=== PATIENT | female | born 1995 | race Caucasian/White ===

== ENCOUNTER 2023-01-24 09:20 | Emergency (ER) | payer BC, SELFPAY ==
[2023-01-24 09:29] VITALS: BP 158/109; PULSE 104; RESP 16; TEMP 36.7; O2SAT 100; BMI 42.0
--- NOTE | 2023-01-24 09:45 | ED.EAR1 ---
HPI - Ear Problem General Chief complaint: Ear Stated complaint: EARACHE Time Seen by Provider: 01/24/23 09:38 Source: patient Mode of arrival: walk-in History of Present Illness HPI Narrative: patient here for evaluation of drainage from her left ear and a recent MRI she had. Historically she said since November she's been treated for some ear problems by her primary care doctor. She took some amoxicillin for approximately a week and then was given a 2nd antibiotic she thinks, however she didn't take it because she was feeling better. She denies any history of trauma or surgery to the ears. She's not seen any blood coming from the ears but the left one is draining a purulent sticky yellowish-type material. She has a little bit of a sore throat but no sneezing or runny nose. She's not had a fever. She is not currently on any antibiotics. She recently had an MRI to manage and follow her multiple sclerosis, she shared that report with me and in the body of the report it was noted that she has fluid in her mastoid area consistent with mastoiditis and/or otitis infections and was advised to go to the hospital. Related Data Home Medications Medication Instructions Recorded Confirmed aripiprazole 15 mg tablet 15 mg PO DAILY 01/24/23 01/24/23 dextroamphetamine-amphetamine ER 20 mg PO DAILY 01/24/23 01/24/23 20 mg 24hr capsule,extend release ferrous sulfate 325 mg (65 mg 325 mg PO DAILY 01/24/23 01/24/23 iron) tablet levothyroxine 75 mcg tablet 75 mcg PO DAILY 01/24/23 01/24/23 norgestimate-ethinyl estradiol 1 tab PO DAILY 01/24/23 01/24/23 0.18 mg/0.215mg/0.25mg-35 mcg(28)tablet venlafaxine 150 mg 150 mg PO DAILY 01/24/23 01/24/23 capsule,extended release 24 hr Allergies Allergy/AdvReac Type Severity Reaction Status Date / Time glatiramer (copolymer 1) AdvReac Severe Hives Verified 01/24/23 09:38 [From Copaxone] interferon beta-1a AdvReac Severe shortness Verified 01/24/23 09:38 [From Avonex] of breath Exam Narrative Exam Narrative: well-hydrated well-nourished pleasant oriented ?3 normal cognitive function. On HEENT examination the nares are dry with no. Nasal drainage or discharge. There is no facial swelling. There is no pain with pulling on the pinna or pushing on her tragus. There is no tenderness over the mastoid area. The right tympanic membrane is intact with dullness our the left tympanic membrane was not visualized because of a large amount of purulent drainage in her ear canal. It was gently cleansed away with Q-tips but we still cannot see the tympanic membrane. I believe this probably represents perforation. Otherwise HEENT examination is unremarkable. Constitutional Vital Signs - 24 hr 01/24/23 09:29 Temperature 98.0 F Pulse Rate [Monitor] 104 H Respiratory Rate 16 Blood Pressure [Left Arm] 158/109 H Pulse Oximetry 100 Course Vital Signs Vital signs: Vital Signs Temperature 98.0 F 01/24/23 09:29 Pulse Rate 104 H 01/24/23 09:29 Respiratory Rate 16 01/24/23 09:29 Blood Pressure 158/109 H 01/24/23 09:29 Pulse Oximetry 100 01/24/23 09:29 Temperature 98.0 F 01/24/23 09:29 Pulse Rate 104 H 01/24/23 09:29 Respiratory Rate 16 01/24/23 09:29 Blood Pressure 158/109 H 01/24/23 09:29 Pulse Oximetry 100 01/24/23 09:29 Medical Decision Making [facility] Narrative Medical decision making narrative: patient has a history of some recent ear infections perhaps partially treated and now has developed once consistent with mastoiditis. We will start her on Augmentin and give her three weeks prescription but she was emphasize she noticed see her family doctor and get referral to ENT in the very near future to follow this infection clinically Discharge Plan Discharge Chief Complaint: Ear Clinical Impression: 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 Patient Disposition: Home, Self-Care Time of Disposition Decision: 09:49 Prescriptions / Home Meds: No Action aripiprazole 15 mg tablet 15 mg PO DAILY dextroamphetamine-amphetamine 20 mg capsule,extended release 24hr 20 mg PO DAILY ferrous sulfate 325 mg (65 mg iron) tablet 325 mg PO DAILY levothyroxine 75 mcg tablet 75 mcg PO DAILY norgestimate-ethinyl estradiol 0.18/0.215/0.25 mg-35 mcg (28) tablet 1 tab PO DAILY venlafaxine 150 mg capsule,extended release 24hr 150 mg PO DAILY Instructions: Mastoiditis (ED) Additional Instructions: Augmentin twice a day for three weeks, follow-up primary care doctor SANDY for ENT referral Stand Alone Forms: Portal Instructions Referrals: Jayme Franklin MD [Primary Care Provider] - 1 week
[2023-01-24 09:52] VITALS: RESP 18
== END 2023-01-24 09:55 | disposition home or self-care (01) ==
PROVIDERS: Emergency Provider Emergency Medicine Emergency Medical Services; PCP Family Medicine
DX: H72.92 Unspecified perforation of tympanic membrane, left ear (principal); G35 Multiple sclerosis; Z79.890 Hormone replacement therapy; Z79.899 Other long term (current) drug therapy
CPT/HCPCS: 99283

== ENCOUNTER 2023-03-27 14:09 | Emergency (ER) | payer BC, SELFPAY ==
[2023-03-27 14:11] VITALS: BP 173/94; PULSE 108; RESP 18; TEMP 38; O2SAT 97; BMI 43.6
--- NOTE | 2023-03-27 14:20 | ED.SOB1 ---
HPI - SOB/Dyspnea General Chief Complaint: Shortness of Breath/Dyspnea Stated Complaint: SHORTNESS OF BREATH Time Seen by Provider: 03/27/23 14:20 Source: patient Mode of arrival: walk-in Limitations: no limitations History of Present Illness HPI Narrative: this patient's here complaining of cough green runny nose congestion itchy eyes and sneezing. She's not had a fever at home that she knows of. She vapes, , does not use tobacco products. is no history of asthma or chronic obstructive pulmonary disease. She did have Covid previously. She's had two vaccinations. No other household members or contacts been ill to her knowledge. Does not have an earache does not have a headache or stiff neck. She did have some diarrhea. He is not on any antibiotics. She currently is being treated by the [facility] for multiple sclerosis. Her medications have not changed. [place] shortness of breath. Her pulse oximetry is ninety-seven percent on room air. She has a low-grade temperature at 100.4. MD elicited complaint: cough Related Data Home Medications Medication Instructions Recorded Confirmed aripiprazole 15 mg tablet 15 mg PO DAILY 01/24/23 01/24/23 dextroamphetamine-amphetamine ER 20 mg PO DAILY 01/24/23 01/24/23 20 mg 24hr capsule,extend release ferrous sulfate 325 mg (65 mg 325 mg PO DAILY 01/24/23 01/24/23 iron) tablet levothyroxine 75 mcg tablet 75 mcg PO DAILY 01/24/23 01/24/23 norgestimate-ethinyl estradiol 1 tab PO DAILY 01/24/23 01/24/23 0.18 mg/0.215mg/0.25mg-35 mcg(28)tablet venlafaxine 150 mg 150 mg PO DAILY 01/24/23 01/24/23 capsule,extended release 24 hr Allergies Allergy/AdvReac Type Severity Reaction Status Date / Time glatiramer (copolymer 1) AdvReac Severe Hives Verified 01/24/23 09:38 [From Copaxone] interferon beta-1a AdvReac Severe shortness Verified 01/24/23 09:38 [From Avonex] of breath Exam Narrative Exam Narrative: examination shows well-hydrated well-nourished female blood pressure noted at 173/94. Esterase normal eighteen. She has no stridor she has no posturing or drooling. Her chest she does have some bronchospasm on auscultation. There is no pleural or pericardial rub. Heart sounds are normal. ENT examination shows no rhinitis. Her pharynx is not erythematous she denies any sore throat. Neck is soft and supple. Constitutional Vital Signs, click to edit/add: Last Vital Signs Temp 100.4 F 03/27/23 14:11 Pulse 109 H 03/27/23 14:47 Resp 18 03/27/23 14:11 BP 123/81 03/27/23 15:06 Pulse Ox 95 03/27/23 14:47 O2 Del Method Room Air 03/27/23 14:11 Course Vital Signs Vital signs: Vital Signs Temperature 100.4 F 03/27/23 14:11 Pulse Rate 108 H 03/27/23 14:11 Respiratory Rate 18 03/27/23 14:11 Blood Pressure 173/94 H 03/27/23 14:11 Pulse Oximetry 97 03/27/23 14:11 Oxygen Delivery Method Room Air 03/27/23 14:11 Temperature 100.4 F 03/27/23 14:11 Pulse Rate 109 H 03/27/23 14:47 Respiratory Rate 18 03/27/23 14:11 Blood Pressure 123/81 03/27/23 15:06 Pulse Oximetry 95 03/27/23 14:47 Oxygen Delivery Method Room Air 03/27/23 14:11 MDM - SOB/Dyspnea MDM Narrative Medical decision making narrative: patient's chest x-ray does show some patchy infiltrates that appear to be acute. We will do Covid smear on her. She does have MS and self Covid is positive she should be offered Paxil over the. If Covid is negative we'll treat her with empiric antibiotic therapy. She is not working outside want to get plenty of rest. I would like her to follow up with primary care doctor or return as needed Discharge Plan Discharge Chief Complaint: Shortness of Breath/Dyspnea Clinical Impression: Pneumonia Patient Disposition: Home, Self-Care Time of Disposition Decision: 15:30 Prescriptions / Home Meds: No Action aripiprazole 15 mg tablet 15 mg PO DAILY dextroamphetamine-amphetamine 20 mg capsule,extended release 24hr 20 mg PO DAILY ferrous sulfate 325 mg (65 mg iron) tablet 325 mg PO DAILY levothyroxine 75 mcg tablet 75 mcg PO DAILY norgestimate-ethinyl estradiol 0.18/0.215/0.25 mg-35 mcg (28) tablet 1 tab PO DAILY venlafaxine 150 mg capsule,extended release 24hr 150 mg PO DAILY Additional Instructions: we will call Covid results, start Zithromax/follow-up primary care doctor/use albuterol inhaler for wheezing and cough Stand Alone Forms: Portal Instructions Referrals: Jayme Franklin MD [Primary Care Provider] - 1 week
--- NOTE | 2023-03-27 14:28 | XR_ITS ---
The [address] [address] Patient Name: KASHIF JAQUEZ MRN: [id number] date: 1995 Sex: F Assigned Patient Location: ED.MAIN Current Patient Location: ER Accession/Order Number: [id number] Exam Date: 03/27/2023 15:00 Report Date: 03/27/2023 15:14 At the request of: LINDY SUERO Procedure: XR chest 1V EXAM: XR chest 1V at 1502 hours HISTORY: cough and dyspnea COMPARISON: None. TECHNIQUE: AP upright portable chest x-ray FINDINGS: Patchy infiltrates are seen throughout the right lung, although the left lung is clear. There is no evidence of an effusion or pneumothorax. The heart is not enlarged and the vasculature is not distended. The osseous structures are grossly intact. XR/XR chest 1V IMPRESSION: Patchy infiltrates are seen in the right lung, which appear acute and probably inflammatory in nature. The left lung is clear and there is no evidence of overt cardiac decompensation. A follow-up study after appropriate therapy is recommended. Electronically authenticated by: AMRIK KENT Date: 03/27/2023 15:14
[2023-03-27] MEDS: IPRATROPIUM/ALBUTEROL SULFATE 3 ML AMPUL.NEB IH (14:45)
[2023-03-27 14:47] VITALS: PULSE 109; O2SAT 95
[2023-03-27] MEDS: ACETAMINOPHEN 500 MG TABLET 1000 MG PO (15:00)
[2023-03-27 15:06] VITALS: BP 123/81
[2023-03-27 15:38] VITALS: PULSE 107; O2SAT 97
[2023-03-27 15:54] LABS: SARS-CoV-2 Ag NEGATIVE (NEGATIVE)
[2023-03-29 12:37] LABS: SARS-CoV-2 NAA INVALID (NOT DETECTE)
== END 2023-03-27 15:38 | disposition home or self-care (01) ==
PROVIDERS: Emergency Provider Emergency Medicine Emergency Medical Services; PCP Family Medicine
DX: J18.9 Pneumonia, unspecified organism (principal); F17.290 Nicotine dependence, other tobacco product, uncomplicated; Z86.16 Personal history of COVID-19; R50.9 Fever, unspecified
CPT/HCPCS: 71045; 87635; 87811; 94640; 99284; U0003

== ENCOUNTER 2023-04-13 10:00 | Emergency (ER) | payer BC, SELFPAY ==
[2023-04-13 10:07] VITALS: BP 111/72; PULSE 100; RESP 18; TEMP 36.6; O2SAT 93; BMI 40.4
[2023-04-13 10:19] VITALS: O2SAT 93
--- NOTE | 2023-04-13 10:21 | XR_ITS ---
The [address] [address] Patient Name: KASHIF JAQUEZ MRN: [id number] date: 1995 Sex: F Assigned Patient Location: ER Current Patient Location: ER Accession/Order Number: [id number] Exam Date: 04/13/2023 10:45 Report Date: 04/13/2023 11:15 At the request of: ECTOR GREENFIELD Procedure: XR chest 1V EXAM: XR chest 1V HISTORY: SOB COMPARISON: 03/27/2023. TECHNIQUE: Upright portable AP chest FINDINGS: Previous multilobar pneumonia in the right lung resolved. Right lung is clear. However, there is new left upper lobe consolidation. Minimal opacities also in the left lower lobe, may be atelectasis or additional areas of pneumonitis. No effusion. No pneumothorax. Pulmonary vasculature is normal. Heart size within normal limits. XR/XR chest 1V IMPRESSION: 1. Resolution of multilobar pneumonia in the right lung since prior study 03/27/2023. However, there is new left upper lobe pneumonia. Minimal left lower lobe opacities may be atelectasis or additional areas of mild pneumonitis. Clinical and radiographic follow-up to resolution recommended. Electronically authenticated by: GUERITA ROBERTSON Date: 04/13/2023 11:15
--- NOTE | 2023-04-13 10:21 | ECG_ITS ---
The [facility] Test Date: 2023-04-13 Pat Name: KASHIF JAQUEZ Department: Room: - Gender: Female [employer] Life Dean: : 1995 Requested By: BEBA COSTA Order Number: [id number] Reading MD: RANDAL LINK Measurements Intervals [place] Rate: 128 P: 90 WI: 128 QRS: 95 QRSD: 74 T: 12 QT: 282 QTc: 358 Interpretive Statements 1120 Sinus tachycardia 4068 Nonspecific [place] abnormality 7102 Moderate right axis deviation 8305 Short QTc interval 9150 abnormal ECG No previous ECG available for comparison Electronically Signed On 04-14-2023 7:04:45 EDT by RANDAL LINK
--- NOTE | 2023-04-13 10:21 | ED.SOB1 ---
HPI - SOB/Dyspnea General Chief Complaint: Shortness of Breath/Dyspnea Stated Complaint: PNUEMONIA Time Seen by Provider: 04/13/23 10:12 Source: patient Mode of arrival: walk-in Limitations: no limitations History of Present Illness HPI Narrative: 27-year-old female presented to the emergency department for shortness of breath. She had Covid two or three months ago and then she was seen in early March and at that time had patchy infiltrates. She's been on Zithromax twice but doesn't feel like she is getting better. No fever or productive cough. She has no history of asthma. She states but doesn't smoke cigarettes. Related Data Home Medications Medication Instructions Recorded Confirmed aripiprazole 15 mg tablet 15 mg PO DAILY 01/24/23 01/24/23 dextroamphetamine-amphetamine ER 20 mg PO DAILY 01/24/23 01/24/23 20 mg 24hr capsule,extend release ferrous sulfate 325 mg (65 mg 325 mg PO DAILY 01/24/23 01/24/23 iron) tablet levothyroxine 75 mcg tablet 75 mcg PO DAILY 01/24/23 01/24/23 norgestimate-ethinyl estradiol 1 tab PO DAILY 01/24/23 01/24/23 0.18 mg/0.215mg/0.25mg-35 mcg(28)tablet venlafaxine 150 mg 150 mg PO DAILY 01/24/23 01/24/23 capsule,extended release 24 hr Previous Rx's Medication Instructions Recorded levofloxacin 750 mg tablet 750 mg PO DAILY 10 days #10 tabs 04/13/23 Allergies Allergy/AdvReac Type Severity Reaction Status Date / Time glatiramer (copolymer 1) AdvReac Severe Hives Verified 04/13/23 10:15 [From Copaxone] interferon beta-1a AdvReac Severe shortness Verified 04/13/23 10:15 [From Avonex] of breath Review of Systems ROS Narrative A ten point review of systems is negative except as noted above. PFSH PFSH Social History Smoking status: Former smoker Exam Narrative Exam Narrative: Nurses note and vital signs reviewed and patient is not hypoxic. General: The patient appears well and in no apparent distress. Patient is resting comfortably on cart. Skin: Warm, dry, no pallor noted. There is no rash noted. Head: Normocephalic, atraumatic Eye: Normal conjunctiva, no drainage Ears, Nose, Mouth, and Throat: oral mucosa is moist. Nares patent. Cardiovascular: Regular Rate and Rhythm Respiratory: Patient is in no distress, no accessory muscle use, lungs are clear to auscultation, no wheezing, rales or rhonchi Back: non-tender GI: soft and nontender Musculoskeletal: The patient has no evidence of calf tenderness, no pitting edema, symmetrical pulses noted bilaterally Neurological: A&O, normal speech Psychiatric: Cooperative Constitutional Vital Signs, click to edit/add: Last Vital Signs Temp 97.8 F 04/13/23 10:07 Pulse 100 H 04/13/23 10:07 Resp 18 04/13/23 10:07 BP 111/72 04/13/23 10:07 Pulse Ox 93 L 04/13/23 10:19 O2 Del Method Room Air 04/13/23 10:19 Course Vital Signs Vital signs: Vital Signs Temperature 97.8 F 04/13/23 10:07 Pulse Rate 100 H 04/13/23 10:07 Respiratory Rate 18 04/13/23 10:07 Blood Pressure 111/72 04/13/23 10:07 Pulse Oximetry 93 L 04/13/23 10:07 Oxygen Delivery Method Room Air 04/13/23 10:07 Temperature 97.8 F 04/13/23 10:07 Pulse Rate 100 H 04/13/23 10:07 Respiratory Rate 18 04/13/23 10:07 Blood Pressure 111/72 04/13/23 10:07 Pulse Oximetry 93 L 04/13/23 10:19 Oxygen Delivery Method Room Air 04/13/23 10:19 MDM - SOB/Dyspnea MDM Narrative Medical decision making narrative: blood work is essentially normal. Chest x-ray shows resolution of her recent right patchy infiltrates but new left upper lobe pneumonia. Case discussed with her PCP and follow-up is arranged. She is prescribed Levaquin and findings are discussed thoroughly with the patient. At this point she does not require admission the hospital. Treatment diagnosis and follow up are discussed thoroughly. Differential Diagnosis Differential diagnosis: Likely congestive heart failure, community acquired pneumonia and other (pneumothorax) Lab Data Attestation: I reviewed the patient's lab results. Labs: Lab Results 04/13/23 Range/Units 10:30 WBC 6.3 (4.0-11.0) 10^3/uL RBC 5.12 (4.20-5.40) 10^6/uL Hgb 13.7 (12.0-16.0) g/dL Hct 44.6 (36.0-48.0) % MCV 87.1 (81.0-99.0) fL MCH 26.8 (26.7-34.0) pg MCHC 30.7 (29.9-35.2) g/dL RDW 13.6 (11.0-15.0) % Plt Count 389 (150-450) 10^3/uL MPV 9.7 (9.5-13.5) fL Neut % (Auto) 74.5 (43.0-75.0) % Lymph % (Auto) 19.5 L (20.5-60.0) % [place] % (Auto) 5.3 (1.7-12.0) % Eos % (Auto) 0.0 L (0.9-7.0) % Baso % (Auto) 0.2 (0.2-2.0) % Neut # (Auto) 4.7 (1.4-6.5) 10^3/uL Lymph # (Auto) 1.2 (1.2-3.8) 10^3/uL [place] # (Auto) 0.3 (0.3-0.8) 10^3/uL Eos # (Auto) 0.0 (0.0-0.7) 10^3/uL Baso # (Auto) 0.0 (0.0-0.1) 10^3/uL Abs Immat Gran (auto) 0.03 (0.00-0.03) 10^3/uL Imm/Tot Granulo (auto) 0.5 (0.0-0.5) % Sodium 139 (136-145) mmol/L Potassium 3.7 (3.5-5.1) mmol/L Chloride 100 (98-107) mmol/L Carbon Dioxide 31.5 (21.0-32.0) mmol/L Anion Gap 11.2 BUN 10.0 (7.0-18.0) mg/dL Creatinine 0.81 (0.55-1.02) mg/dL Est GFR ( Amer) >60 (>=60) Est GFR (Non-Af Amer) >60 (>=60) BUN/Creatinine Ratio 12.3 Glucose 89 (74-106) mg/dL Calcium 8.9 (8.5-10.1) mg/dL Imaging Data Chest x-ray: Radiologist's impression: Procedure: XR chest 1V EXAM: XR chest 1V HISTORY: SOB COMPARISON: 03/27/2023. TECHNIQUE: Upright portable AP chest FINDINGS: Previous multilobar pneumonia in the right lung resolved. Right lung is clear. However, there is new left upper lobe consolidation. Minimal opacities also in the left lower lobe, may be atelectasis or additional areas of pneumonitis. No effusion. No pneumothorax. Pulmonary vasculature is normal. Heart size within normal limits. IMPRESSION: 1. Resolution of multilobar pneumonia in the right lung since prior study 03/27/2023. However, there is new left upper lobe pneumonia. Minimal left lower lobe opacities may be atelectasis or additional areas of mild pneumonitis. Clinical and radiographic follow-up to resolution recommended. Electronically authenticated by: GUERITA ROBERTSON Date: 04/13/2023 11:15 Discharge Plan Discharge Chief Complaint: Shortness of Breath/Dyspnea Clinical Impression: Pneumonia Patient Disposition: Home, Self-Care Time of Disposition Decision: 11:50 Condition: Good Mode of Transportation: Private Vehicle Prescriptions / Home Meds: New levofloxacin 750 mg tablet 750 mg PO DAILY 10 Days Qty: 10 0RF No Action aripiprazole 15 mg tablet 15 mg PO DAILY dextroamphetamine-amphetamine 20 mg capsule,extended release 24hr 20 mg PO DAILY ferrous sulfate 325 mg (65 mg iron) tablet 325 mg PO DAILY levothyroxine 75 mcg tablet 75 mcg PO DAILY norgestimate-ethinyl estradiol 0.18/0.215/0.25 mg-35 mcg (28) tablet 1 tab PO DAILY venlafaxine 150 mg capsule,extended release 24hr 150 mg PO DAILY Instructions: Community Acquired Pneumonia (ED) Additional Instructions: see Dr. Franklin next week Stand Alone Forms: Portal Instructions Referrals: Jayme Franklin MD [Primary Care Provider] - 1 week
[2023-04-13 10:50] LABS: Basophils Percent Auto 0.2 % (0.2-2.0); Hematocrit 44.6 % (36.0-48.0); Hemoglobin 13.7 g/dL (12.0-16.0); Immature Granulocytes Abs Auto 0.03 10^3/uL (0.00-0.03); Immature Granulocytes Pct Auto 0.5 % (0.0-0.5); Lymphocytes Absolute Auto 1.2 10^3/uL (1.2-3.8); Lymphocytes Percent Auto 19.5 % (20.5-60.0); Mean Corpuscular HGB Conc 30.7 g/dL (29.9-35.2); Mean Corpuscular Hemoglobin 26.8 pg (26.7-34.0); Mean Corpuscular Volume 87.1 fL (81.0-99.0); Mean Platelet Volume 9.7 fL (9.5-13.5); Monocytes Absolute Auto 0.3 10^3/uL (0.3-0.8); Monocytes Percent Auto 5.3 % (1.7-12.0); Neutrophils Absolute Auto 4.7 10^3/uL (1.4-6.5); Neutrophils Percent Auto 74.5 % (43.0-75.0); Platelet Count 389 10^3/uL (150-450); Red Blood Count 5.12 10^6/uL (4.20-5.40); Red Cell Distribution Width 13.6 % (11.0-15.0); White Blood Count 6.3 10^3/uL (4.0-11.0)
[2023-04-13 11:01] LABS: Anion Gap 11.2; BUN Creatinine Ratio 12.3; Calcium 8.9 mg/dL (8.5-10.1); Carbon Dioxide 31.5 mmol/L (21.0-32.0); Chloride 100 mmol/L (98-107); Estimated GFR (African America >60 (>=60); Estimated GFR (Non-African Ame >60 (>=60); Glucose 89 mg/dL (74-106); Potassium 3.7 mmol/L (3.5-5.1); Sodium 139 mmol/L (136-145)
[2023-04-13 12:00] VITALS: O2SAT 95
== END 2023-04-13 11:58 | disposition home or self-care (01) ==
PROVIDERS: Emergency Provider Emergency Medicine; PCP Family Medicine
DX: J18.9 Pneumonia, unspecified organism (principal); Z79.899 Other long term (current) drug therapy; Z79.890 Hormone replacement therapy; Z87.891 Personal history of nicotine dependence; Z86.16 Personal history of COVID-19
CPT/HCPCS: 36415; 71045; 80048; 85025; 93005; 99285

== ENCOUNTER 2023-10-04 08:28 | Outpatient (OUT) | payer BC, SELFPAY ==
[2023-10-04 08:51] LABS: Basophils Absolute Auto 0.1 10^3/uL (0.0-0.1); Basophils Percent Auto 0.5 % (0.2-2.0); Eosinophils Absolute Auto 0.1 10^3/uL (0.0-0.7); Eosinophils Percent Auto 1.5 % (0.9-7.0); Hematocrit 44.1 % (36.0-48.0); Hemoglobin 14.1 g/dL (12.0-16.0); Immature Granulocytes Abs Auto 0.03 10^3/uL (0.00-0.03); Immature Granulocytes Pct Auto 0.3 % (0.0-0.5); Lymphocytes Absolute Auto 2.9 10^3/uL (1.2-3.8); Lymphocytes Percent Auto 30.4 % (20.5-60.0); Mean Corpuscular Hemoglobin 29.1 pg (26.7-34.0); Mean Corpuscular Volume 91.1 fL (81.0-99.0); Mean Platelet Volume 9.2 fL (9.5-13.5); Monocytes Absolute Auto 0.7 10^3/uL (0.3-0.8); Neutrophils Absolute Auto 5.8 10^3/uL (1.4-6.5); Neutrophils Percent Auto 60.3 % (43.0-75.0); Platelet Count 374 10^3/uL (150-450); Red Blood Count 4.84 10^6/uL (4.20-5.40); Red Cell Distribution Width 13.1 % (11.0-15.0); White Blood Count 9.5 10^3/uL (4.0-11.0)
[2023-10-04 09:14] LABS: Estimated Average Glucose 105 mg/dL; Glycohemoglobin A1C 5.3 % (4.5-6.2)
[2023-10-04 09:31] LABS: Alanine Aminotransferase 46 U/L (14-59); Albumin Globulin Ratio 0.9; Albumin Level 3.1 g/dL (3.4-5.0); Alkaline Phosphatase 81 U/L (46-116); Anion Gap 12.4; Aspartate Amino Transferase 30 U/L (15-37); BUN Creatinine Ratio 11.4; Bilirubin Direct 0.1 mg/dL (0.0-0.2); Bilirubin Total 0.5 mg/dL (0.2-1.0); Calcium 8.5 mg/dL (8.5-10.1); Carbon Dioxide 27.6 mmol/L (21.0-32.0); Chloride 103 mmol/L (98-107); Estimated GFR (African America >60 (>=60); Estimated GFR (Non-African Ame >60 (>=60); Free T3 3.22 pg/mL (2.18-3.98); Globulin 3.5 g/dL; Glucose 96 mg/dL (74-106); Sodium 139 mmol/L (136-145); Thyroid Stimulating Hormone 0.919 uIU/mL (0.358-3.740); Total Protein 6.6 g/dL (6.4-8.2)
[2023-10-04 10:47] LABS: Percent Iron Saturation 28.1 %
[2023-10-04 11:23] LABS: Free T4 1.09 ng/dL (0.76-1.46)
[2023-10-05 10:13] LABS: Insulin 31.2 uIU/mL (2.6-24.9)
== END 2023-10-04 08:29 | disposition home or self-care (01) ==
LOC: LAB 08:31
PROVIDERS: PCP Family Medicine; Visit Provider Family Medicine
DX: E88.819 Insulin resistance, unspecified (principal); Z79.899 Other long term (current) drug therapy; E03.9 Hypothyroidism, unspecified; D50.9 Iron deficiency anemia, unspecified; E55.9 Vitamin D deficiency, unspecified
CPT/HCPCS: 36415; 80048; 80076; 82306; 83036; 83525; 83540; 83550; 84439; 84443; 84481; 85025

== ENCOUNTER 2023-10-27 13:10 | Emergency (ER) | payer BC, SELFPAY ==
[2023-10-27 13:15] VITALS: BP 140/96; PULSE 100; TEMP 36.4; O2SAT 100; BMI 34.5
[2023-10-27 13:36] LABS: Bilirubin Urine NEGATIVE (NEGATIVE); Blood Urine NEGATIVE (NEGATIVE); Clarity Urine CLEAR (CLEAR); Color Urine YELLOW (YELLOW); Glucose Urine UA NEGATIVE (NEGATIVE); Ketones Urine TRACE mg/dL (NEGATIVE); Leukocyte Esterase Urine NEGATIVE (NEGATIVE); Nitrite Urine NEGATIVE (NEGATIVE); Protein Urine NEGATIVE (NEG/TRACE); Specific Gravity Urine >=1.030 (1.005-1.025); Urobilinogen Urine 0.2 EU/dL (0.2-1.0)
[2023-10-27 13:38] LABS: HCG Qualitative Urine* NEGATIVE (NEGATIVE)
[2023-10-27 14:11] LABS: Bacteria Urine SMALL #/HPF (NONE SEEN); Cast Seen? NONE SEEN #/LPF (NONE SEEN); Crystals Seen? None Seen #/HPF (None Seen); Mucus Urine SMALL (NONE SEEN); RBC Urine 0-2 #/HPF (0-2); Squamous Epithelial Cell Urine MODERATE #/LPF (NONE/RARE); WBC Urine NONE SEEN #/HPF (NONE SEEN)
[2023-10-27] MEDS: KETOROLAC TROMETHAMINE 60 MG/2 ML VIAL IM (14:17)
--- NOTE | 2023-10-27 14:33 | ED_ITS ---
Documented by User: Zoe Noriega 10/27/23 18:41 HPI HPI - Back Pain/Injury General Chief Complaint: Back Pain/Injury Stated Complaint: BACK PAIN Time Seen by Provider: 10/27/23 14:02 Source: patient Mode of arrival: walk-in History of Present Illness HPI Narrative: 27-year-old female presents here with a chief complaint of left lower lumbar pain with pain radiating down the left lower extremity. She denies numbness tingling loss of bowel or bladder function. She sitting crosslegged on the cot without any difficulties. She states she has had weakness. No weakness elicited on initial exam. She states she is here because she has difficulty with bending and twisting her back. Denies any injury or trauma. Related Data Home Medications ?Medication ?Instructions ?Recorded ?Confirmed aripiprazole 15 mg tablet 15 mg PO DAILY 01/24/23 10/27/23 dextroamphetamine-amphetamine ER 20 mg PO DAILY 01/24/23 10/27/23 20 mg 24hr capsule,extend release ferrous sulfate 325 mg (65 mg 325 mg PO DAILY 01/24/23 10/27/23 iron) tablet levothyroxine 75 mcg tablet 75 mcg PO DAILY 01/24/23 10/27/23 norgestimate-ethinyl estradiol 1 tab PO DAILY 01/24/23 10/27/23 0.18 mg/0.215mg/0.25mg-35 mcg(28)tablet venlafaxine 150 mg 150 mg PO DAILY 01/24/23 10/27/23 capsule,extended release 24 hr Previous Rx's ?Medication ?Instructions ?Recorded methocarbamol 500 mg tablet 500 mg PO Q8H PRN pain 3 days #10 10/27/23 tabs prednisone 20 mg tablet 20 mg PO BID 5 days #10 tabs 10/27/23 Allergies Allergy/AdvReac Type Severity Reaction Status Date / Time glatiramer (copolymer 1) AdvReac Severe Hives Verified 04/13/23 10:15 [From Copaxone] interferon beta-1a AdvReac Severe shortness Verified 04/13/23 10:15 [From Avonex] of breath Opioid HPI Opioid Management Most Recent Opioid Data: Last Pain Scale 10 10/27/23 14:17 Last MAR Pain Assessment 10/27/23 14:17 PFSH PFSH Social History Smoking status: Former smoker Exam Narrative Exam Narrative: All Systems are negative except as noted/marked.All systems reviewed and otherwise negative Nurses note and vital signs reviewed and patient is not hypoxic. General: The patient appears well and in no apparent distress. Patient is resting comfortably on cart. Skin: Warm, dry, no pallor noted. There is no rash noted. Head: Normocephalic, atraumatic Eye: Normal conjunctiva, no drainage, EOMI. PERRL Ears, Nose, Mouth, and Throat: oral mucosa is moist. Nares patent. Mouth without vesicles. Ear canals patent. Tm's without Erythema Back: No pain to palpation no flank pain tenderness, flexion extension without difficulty non-tender, no CVA tenderness bilaterally to percussion. GI: Normal bowel sounds, no tenderness to palpation, no masses appreciated. No rebound, guarding, or rigidity noted. Musculoskeletal: no lower weakness noted lower extremity strength 5 out of 5 bilaterally, full range of motion, no pain elicited on exam no swelling, re mainder of Extremities are unremarkable Neurological: A&O x4, normal speech Psychiatric: Cooperative Constitutional Vital Signs, click to edit/add: Last Vital Signs Temp 97.6 F 10/27/23 13:15 Pulse 100 H 10/27/23 13:15 Resp 18 10/27/23 13:15 BP 140/96 H 10/27/23 13:15 Pulse Ox 100 10/27/23 13:15 Course Vital Signs Vital signs: Vital Signs Temperature 97.6 F 10/27/23 13:15 Pulse Rate 100 H 10/27/23 13:15 Respiratory Rate 18 10/27/23 13:15 Blood Pressure 140/96 H 10/27/23 13:15 Pulse Oximetry 100 10/27/23 13:15 Temperature 97.6 F 10/27/23 13:15 Pulse Rate 100 H 10/27/23 13:15 Respiratory Rate 18 10/27/23 13:15 Blood Pressure 140/96 H 10/27/23 13:15 Pulse Oximetry 100 10/27/23 13:15 MDM - Back Pain/Injury MDM Narrative Medical decision making narrative: Worsening symptoms of lower lumbar pain and pain rating down the left lower extremity. She denies any loss of bowel or bladder function. She sitting comfortably on the cot. She is medicated here with Toradol. Examination consistent with sciatica. Negative urinalysis. Patient will be medicated here with Toradol and discharged home with muscle relaxants and follow-up with her primary care physician. Patient states she has a chronic history of back pain no new injury or trauma. No sign of cauda equina on exam. Patient stable to be discharged home. Follow-up as directed. Differential Diagnosis Differential diagnosis: Likely lumbar radiculopathy, sciatica and strain of lumbar region Medical Records Attestation: I reviewed the patient's medical records. Lab Data Attestation: I reviewed the patient's lab results. Labs: Lab Results 10/27/23 Range/Units 13:18 Urine Color Yellow (YELLOW) Urine Clarity Clear (CLEAR) Urine pH 6.0 (5.0-9.0) Ur Specific [place] >=1.030 A (1.005-1.025) Urine Protein Negative (NEG/TRACE) mg/dL Urine Glucose (UA) Negative (NEGATIVE) mg/dL Urine Ketones Trace A (NEGATIVE) mg/dL Urine Occult Blood Negative (NEGATIVE) Urine Nitrite Negative (NEGATIVE) Urine Bilirubin Negative (NEGATIVE) Urine Urobilinogen 0.2 (0.2-1.0) EU/dL Ur Leukocyte Esterase Negative (NEGATIVE) Urine RBC 0-2 (0-2) #/HPF Urine WBC None seen (NONE SEEN) #/HPF Ur Squamous Epith Cells Moderate A (NONE/RARE) #/LPF Urine Crystals None seen (None Seen) #/HPF Urine Bacteria Small A (NONE SEEN) #/HPF Urine Casts None seen (NONE SEEN) #/LPF Urine Mucus Small A (NONE SEEN) Urine HCG, Qual Negative (NEGATIVE) Discharge Plan Discharge Stand Alone Forms: Portal Instructions Chief Complaint: Back Pain/Injury Clinical Impression: Lumbar radiculopathy, Sciatica Patient Disposition: Home, Self-Care Time of Disposition Decision: 14:30 Condition: Good Prescriptions / Home Meds: New prednisone 20 mg tablet 20 mg PO BID 5 Days Qty: 10 0RF methocarbamol 500 mg tablet 500 mg PO Q8H PRN (Reason: pain) 3 Days Qty: 10 0RF No Action aripiprazole 15 mg tablet 15 mg PO DAILY dextroamphetamine-amphetamine 20 mg capsule,extended release 24hr 20 mg PO DAILY ferrous sulfate 325 mg (65 mg iron) tablet 325 mg PO DAILY levothyroxine 75 mcg tablet 75 mcg PO DAILY norgestimate-ethinyl estradiol 0.18/0.215/0.25 mg-35 mcg (28) tablet 1 tab PO DAILY venlafaxine 150 mg capsule,extended release 24hr 150 mg PO DAILY Print Language: Hungarian Instructions: Sciatica (ED), Lumbar Radiculopathy (ED), Epidural Steroid Injection (DC) Referrals: Jayme Franklin MD [Primary Care Provider] - 1 week Discharge Date/Time: 10/27/23 14:53 Documented by User: Pete Walker MD 10/27/23 21:50 HPI HPI - Back Pain/Injury General Chief Complaint: Back Pain/Injury Stated Complaint: BACK PAIN Time Seen by Provider: 10/27/23 14:02 Related Data Home Medications ?Medication ?Instructions ?Recorded ?Confirmed aripiprazole 15 mg tablet 15 mg PO DAILY 01/24/23 10/27/23 dextroamphetamine-amphetamine ER 20 mg PO DAILY 01/24/23 10/27/23 20 mg 24hr capsule,extend release ferrous sulfate 325 mg (65 mg 325 mg PO DAILY 01/24/23 10/27/23 iron) tablet levothyroxine 75 mcg tablet 75 mcg PO DAILY 01/24/23 10/27/23 norgestimate-ethinyl estradiol 1 tab PO DAILY 01/24/23 10/27/23 0.18 mg/0.215mg/0.25mg-35 mcg(28)tablet venlafaxine 150 mg 150 mg PO DAILY 01/24/23 10/27/23 capsule,extended release 24 hr Previous Rx's ?Medication ?Instructions ?Recorded methocarbamol 500 mg tablet 500 mg PO Q8H PRN pain 3 days #10 10/27/23 tabs prednisone 20 mg tablet 20 mg PO BID 5 days #10 tabs 10/27/23 Allergies Allergy/AdvReac Type Severity Reaction Status Date / Time glatiramer (copolymer 1) AdvReac Severe Hives Verified 04/13/23 10:15 [From Copaxone] interferon beta-1a AdvReac Severe shortness Verified 04/13/23 10:15 [From Avonex] of breath Opioid HPI Opioid Management Most Recent Opioid Data: Last Pain Scale 10 10/27/23 14:17 Last MAR Pain Assessment 10/27/23 14:17 PFSH PFSH Social History Smoking status: Former smoker Exam Constitutional Vital Signs, click to edit/add: Last Vital Signs Temp 97.6 F 10/27/23 13:15 Pulse 100 H 10/27/23 13:15 Resp 18 10/27/23 13:15 BP 140/96 H 10/27/23 13:15 Pulse Ox 100 10/27/23 13:15 Course Vital Signs Vital signs: Vital Signs Temperature 97.6 F 10/27/23 13:15 Pulse Rate 100 H 10/27/23 13:15 Respiratory Rate 18 10/27/23 13:15 Blood Pressure 140/96 H 10/27/23 13:15 Pulse Oximetry 100 10/27/23 13:15 Temperature 97.6 F 10/27/23 13:15 Pulse Rate 100 H 10/27/23 13:15 Respiratory Rate 18 10/27/23 13:15 Blood Pressure 140/96 H 10/27/23 13:15 Pulse Oximetry 100 10/27/23 13:15 MDM - Back Pain/Injury MDM Narrative Medical decision making narrative: Worsening symptoms of lower lumbar pain and pain rating down the left lower extremity. She denies any loss of bowel or bladder function. She sitting comfortably on the cot. She is medicated here with Toradol. Examination consistent with sciatica. Negative urinalysis. Patient will be medicated here with Toradol and discharged home with muscle relaxants and follow-up with her primary care physician. Patient states she has a chronic history of back pain no new injury or trauma. No sign of cauda equina on exam. Patient stable to be discharged home. Follow-up as directed. I, Dr Walker, have reviewed the above progress note and course of action in the ER; agree with the above. I have gone over history and physical, and discussed disposition and treatment plan with the patient. Lab Data Labs: Lab Results 10/27/23 Range/Units 13:18 Urine Color Yellow (YELLOW) Urine Clarity Clear (CLEAR) Urine pH 6.0 (5.0-9.0) Ur Specific [place] >=1.030 A (1.005-1.025) Urine Protein Negative (NEG/TRACE) mg/dL Urine Glucose (UA) Negative (NEGATIVE) mg/dL Urine Ketones Trace A (NEGATIVE) mg/dL Urine Occult Blood Negative (NEGATIVE) Urine Nitrite Negative (NEGATIVE) Urine Bilirubin Negative (NEGATIVE) Urine Urobilinogen 0.2 (0.2-1.0) EU/dL Ur Leukocyte Esterase Negative (NEGATIVE) Urine RBC 0-2 (0-2) #/HPF Urine WBC None seen (NONE SEEN) #/HPF Ur Squamous Epith Cells Moderate A (NONE/RARE) #/LPF Urine Crystals None seen (None Seen) #/HPF Urine Bacteria Small A (NONE SEEN) #/HPF Urine Casts None seen (NONE SEEN) #/LPF Urine Mucus Small A (NONE SEEN) Urine HCG, Qual Negative (NEGATIVE) Discharge Plan Discharge Stand Alone Forms: Portal Instructions Chief Complaint: Back Pain/Injury Clinical Impression: Lumbar radiculopathy, Sciatica Patient Disposition: Home, Self-Care Time of Disposition Decision: 14:30 Condition: Good Prescriptions / Home Meds: New prednisone 20 mg tablet 20 mg PO BID 5 Days Qty: 10 0RF methocarbamol 500 mg tablet 500 mg PO Q8H PRN (Reason: pain) 3 Days Qty: 10 0RF No Action aripiprazole 15 mg tablet 15 mg PO DAILY dextroamphetamine-amphetamine 20 mg capsule,extended release 24hr 20 mg PO DAILY ferrous sulfate 325 mg (65 mg iron) tablet 325 mg PO DAILY levothyroxine 75 mcg tablet 75 mcg PO DAILY norgestimate-ethinyl estradiol 0.18/0.215/0.25 mg-35 mcg (28) tablet 1 tab PO DAILY venlafaxine 150 mg capsule,extended release 24hr 150 mg PO DAILY Print Language: Hungarian Instructions: Sciatica (ED), Lumbar Radiculopathy (ED), Epidural Steroid Injection (DC) Referrals: Jayme Franklin MD [Primary Care Provider] - 1 week Discharge Date/Time: 10/27/23 14:53
== END 2023-10-27 14:53 | disposition home or self-care (01) ==
PROVIDERS: Emergency Provider Emergency Medicine; PCP Family Medicine
DX: M54.16 Radiculopathy, lumbar region (principal); M54.42 Lumbago with sciatica, left side; Z79.899 Other long term (current) drug therapy; Z79.890 Hormone replacement therapy; Z87.891 Personal history of nicotine dependence
CPT/HCPCS: 81001; 84703; 96372; 99284

== ENCOUNTER 2024-03-18 21:11 | Outpatient (REF) | payer OTHER, SELFPAY ==
--- OUTSIDE RECORDS SUMMARY | 2024-03-18 21:14 | XMS_ITS | CCD ---
Author Organization [facility] CliniSywy Care Team Providers Care Computer Operations Analyst Name Role Phone Jayme Costa Primary Care Provider JAYME COSTA Primary Care Unavailgloria COSTA, JAYME GUADARRAMA Attending Unavailabl e JULISSA, JAYME GUADARRAMA Primary Care UnavailMD DAVID Vega Attending Melvini JAYME Ponce Primary Care Physician MATTHEW, DR GOLDBERG Admitting Unavailable NILL, DR GOLDBERG Consulting Unavailable NILL, DR GOLDBERG Attending Unavailable NADERER, DR JAYME Herrera Primary Care Unavailable NILL, DR GOLDBERG Admitting Unavailable NILL, DR GOLDBERG Consulting Unavailable NILL, DR GOLDBERG Attending Unavailable NADERER, DR JAYME Herrera Primary Care Unavailable IVELISSE, SAMUEL LEOS Consulting Unava ilable GEMBUS, OPAL Consulting Unavailable NADERER, DR JAYME Herrera Primary Care Unavailable NADERER, DR JAYME Herrera Consulting Unavailable NADERER, DR JAYME Herrera Attending Unavailable ALEEREShelby, DR JAYME Herrera Admitting Unavailable Jayme Costa Primary Care Provider Erica Perry Unavailable Carol Ann Lees Unavailable Yusuf PETERS Attending Unavailable NADERERJAYME Referring Unavailable NILL, Yuusf Ryan Attending Unavailable NADEREShelby, JAYME Referring Unavailable NILL, Yusuf Ryan Attending Unavailable NILL, Yusuf Ryan Attending Unavailable Clau Narayan Attending Unavailable Jayme Costa Primary Care Provider MD Jayme Costa Primary Care Provider [phone] ONEIDA Allred Attending Provider Shelbie Allred Attending Unavailable Shelbie Allred Admitting Unavailable Jayme Costa Primary Care Unavailable CHIZMADIA, YOLY Attending Unavailable NADERER, JAYME A Primary Care Unavailable NADERER, JAYME A Primary Care Unavailable CHIZPRASHANTDIA, YOLY Referring Unavailable NADERER, JAYME A Primary Care Unavailable NADERER, JAYME A Primary Care Unavailable NADERER, JAYME A Primary Care Unavailable MARIELLE GARCIA Attending Unavailable NADERER, JAYME A Primary Care Unavailable CHIZMADIA, YOLY Referring Unavailable RACHELZPRASHANTDIA, YOLY Referring Unavailable NADERER, JAYME A Primary Care Unavailable MARIELLE GARCIA Referring Unavailable MARIELLE GARCIA Attending Unavailable NADERER, JAYME A Primary Care Unavailable Allergies Allergy Classification Reported Allergen(s) Allergy Type Date of Onset Reaction(s) Facility (20 sources) Glatiramer; Translations: [glatiramer] Drug Allergy 4 Rash, Weal (disorder), hives [facility] (20 sources) Interferon beta-1a; Translations: [interferon beta-1a] Drug Allergy 4 Hives, Shortness of Breath, Dyspnea (finding) [facility] (3 sources) Glatiramer; Translations: [Copaxone] Drug Allergy 5 [facility] Rep[facility] (7 sources) Interferon beta-1a; Translations: [Avonex] Drug Allergy 5 short of breath [facility] Rep[facility] (2 sources) Glatiramer; Translations: [glatiramer] Drug Allergy 5 [facility] (1 source) interferon beta-1a Drug allergy (disorder) [facility] (1 source) Glatiramer Drug Allergy 4 [facility] (1 source) interferon beta-1a Drug allergy (disorder) 4 [facility] Medications Current Medications Medication Drug Class(es) Dates Sig (Normalized) Sig (Original) Amphetamine / Dextroamphetamine (5 sources) Central Nervous System Stimulant Start: 05-12-2022 Adderall 20 mg oral tablet 20 mg, 1 tab(s), Oral, Noon, Refill(s) 0 Start Date: 05/12/22 Status: Ordered Adderall XR Acti ve 24 hr amphetamine aspartate 5 mg / amphetamine sulfate 5 mg / dextroamphetamine saccharate 5 mg / dextroamphetamine sulfate 5 mg extended release oral capsule (20 sources) Central Nervous System Stimulant Start: 09-25-2023 Dextroamphetamine-Amphetamin e Active PO September 25, 2023 1:00am Start: 10-14-2019 Adderall XR 30 mg Cap-ER Refills(s) 0 Start Date: 10/14/19 Status: Ordered Start: 04-11-2019 dextroamphetam ine-amphetamine (ADDERALL) 20 mg tablet Take by mouth. 0 04/11/2019 Active take 1 tablet by silver th once daily Amphetamine-Dextroamphetamine (ADDERALL) 30 mg tablet Take 30 mg by mouth once daily. 0 Active Comment on above: Take 30 mg by mouth once daily. Take by mouth. ARIPiprazole 15 mg oral tablet (20 sources) Atypical Antipsychotic Start: 09-25-2023 Aripiprazole Active MG PO September 25, 2023 1:00am Start: 11-06-2020 take 1 tablet by silver th once daily at bedtime ARIPiprazole (ABILIFY) 10 mg tablet TAKE 1 TABLET BY MOUTH EVERYDAY AT BEDTIME 0 11/06/2020 Active Abilify Active Comment on above: TAKE 1 TABLET BY SILVER TH EVERYDAY AT BEDTIME Azithromycin (3 sources) Macrolide Antimicrobial Start: 12-19-2023 Azithromycin Active 0 PO .COMPLEX December 19, 2023 12:00am For 250 mg dose pack: take 500 mg today (day 1), then 250 mg for 4 days (days 2-5) PO Start: 04-08-2023 Azithromycin 2 50 MG 2 tablet on the first day, then 1 tablet daily for 4 days Orally Once a day for 5 day(s) Mar, Active baclofen 10 mg oral tablet (20 sources) gamma-Aminobutyric Acid-ergic Agonist Start: 08-03-2021 End: 09-02-2022 take 1 tablet by mouth every twenty-four hours as needed baclofen (LIORESAL) 10 mg tablet Take 1 tablet by mouth at bedtime as needed. Take 1 tablet by mouth before bed daily 30 tablet 11 09/02/2022 Active Comment on above: Take 1 tablet by silver th at bedtime as needed. Take 1 tablet by mouth before bed daily cholecalciferol 0.05 mg oral capsule (19 sources) Vitamin D Start: 03-08-2017 take 1 capsule by mouth once daily Cholecalciferol , Vitamin D3, 2,000 unit cap TAKE ONE CAPSULE BY MOUTH EVERY DAY 30 capsule 5 03/08/2017 Active Comment on above: TAKE ONE CAPSULE BY MOUTH EVERY DAY cholestyramine resin 4000 mg powder for oral suspension (1 source) Bile Acid Sequestrant Start: 07-05-2022 Questran 4 g/9 g oral powder = 1 packet(s), Oral, BID, # 60 EA, Refills(s) 3, Pharmacy: [facility]/pharmacy #[id number], 165, cm, 05/24/22 14:22:00 EDT, Height/Length Dosing, 106, kg, 05/24/22 14:22:00 EDT, Weight Dosing Start Date: 07/05/22 Status: Ordered dicyclomine hydrochloride 20 mg oral tablet (2 sources) Anticholinergic Start: 05-12-2022 take 1 tablet by mouth four times daily as needed for pain dicyclomine 20 mg Tab 20 mg = 1 tab(s), Oral, QID, PRN Pain, Refills(s) 0 Start Date: 05/12/22 Status: Ordered {7 (Ethinyl Estradiol 0.035 MG / norgestimate 0.18 MG Oral Tablet) / 7 (Ethinyl Estradiol 0.035 MG / norgestimate 0.215 MG Oral Tablet) / 7 (Ethinyl Estradiol 0.035 MG / norgestimate 0.25 MG Oral Tablet) / 7 (Inert Ingredients 1 MG Oral Tablet) } Pack [Tr (2 sources) Progestin, Estrogen Start: 05-12-2022 take 1 tablet by mouth once daily Tri-Sprintec 35 mcg Tab = 1 tab(s), Oral, Daily, Refills(s) 0 Start Date: 05/12/22 Status: Ordered ferrous sulfate 325 mg oral tablet (20 sources) Start: 09-25-2023 Ferrous Sulfate Active MG PO September 25, 2023 1:00am Start: 10-14-2019 ferrous sulfat e 325 mg Tab Refills(s) 0 Start Date: 10/14/19 Status: Ordered Start: 10-05-2015 take 1 tablet by silver th twice daily ferrous sulfate 325 mg (65 mg iron) tablet Take 1 tablet by mouth twice daily. 0 10/05/2015 Active take 1 tablet by silver th once daily Ferrous Sulfate 325 (65 Fe) MG 1 tablet Orally Once a day Active Comment on above: Take 1 tablet by silver th twice daily. gabapentin 100 mg oral capsule (3 sources) Anti-epileptic Agent Start: 2023 End: 2023 take 1 capsule by mouth twice daily gabapentin (NEURONTIN) 100 mg capsule Indications: Radiculopathy, lumbar region , Spinal stenosis, lumbar region, without neurogenic claudication , Lumbar spondylosis Take 1 capsule by mouth two times a day for 90 days. 60 capsule 2 12/29/2023 03/28/2024 Active hydrocortisone 10 mg/ml / neomycin 3.5 mg/ml / polymyxin b [id number] unt/ml otic suspension (1 source) Aminoglycoside Antibacterial, Polymyxin-class Antibacterial, Corticosteroid Start: 2022 Gkezawuy-Mxnetxsmj-[id number] C [id number] 3 drops left ear Three times a day for 7 days Jul, Active iv contrast (will be provided with radiology test) (2 sources) Start: 2022 End: 2022 inject 1 dose intravenously once iv contrast (will be provided with radiology test) Indications: Multiple sclerosis (HCC) , Encounter for long-term (current) use of medications MRI Brain Inject, intravenously, once for 1 dose.No IV access, insert saline lock prior to beginning of sedation, infusion, injection of imaging exam.Discontinue saline lock post exam. If Pt. has a central line or IVAD, may access for administration according to line specific nursing protocol.Once exam is complete flush line and de-access according to line specific nursing protocol in the MR contrast administration guidelines link 1 Each 0 09/02/2022 09/03/2022 Active Start: 09-02-2022 End: 09-03-2022 iv contrast (will be provide d with radiology test) Indications: Multiple sclerosis (HCC) , Encounter for long-term (current) use of medications MRI CSP Inject, intravenously, once for 1 dose. No IV access, insert saline lock prior to the beginning of sedation, infusion, injection of imaging exam. Discontinue saline lock post exam. If Pt. has a central line or IVAD, may access for administration according to line specific nursing protocol. Once exam is complete flush line and de-access according to line specific nursing protocol in the MR contrast administration guidelines link. 1 Each 0 09/02/2022 09/03/2022 Active Comment on above: MRI Brain Inject, in travenously, once for 1 dose.No IV access, insert saline lock prior to beginning of sedation, infusion, injection of imaging exam.Discontinue saline lock post exam. If Pt. has a central line or IVAD, may access for administration according to line specific nursing protocol.Once exam is complete flush line and de-access according to line specific nursing protocol in the MR contrast administration guidelines link MRI CSP Inject, intr avenously, once for 1 dose. No IV access, insert saline lock prior to the beginning of sedation, infusion, injection of imaging exam. Discontinue saline lock post exam. If Pt. has a central line or IVAD, may access for administration according to line specific nursing protocol. Once exam is complete flush line and de-access according to line specific nursing protocol in the MR contrast administration guidelines link. levothyroxine sodium 0.075 mg oral tablet (20 sources) l-Thyroxine Start: 09-25-2023 Levothyroxine Active MCG PO September 25, 2023 1:00am Start: 10-14-2019 levothyroxine 75 mcg (0.075 mg) Tab Refills(s) 0 Start Date: 10/14/19 Status: Ordered take 1 tablet by silver once daily before breakfast levothyroxine (SYNTHROID) 75 mcg tablet Indications: Numbness in both hands , Scoliosis , Numbness in both legs Take 75 mcg by mouth daily before breakfast. 0 Active Levothyroxine So dium 75 MCG Orally daily Not-Taking Comment on above: Take 75 mcg by mouth daily before breakfast. nabumetone 500 mg oral tablet (3 sources) Nonsteroidal Anti-inflammatory Drug Start: take 1 tablet by mouth twice daily as needed nabumetone (RELAFEN) 500 mg tablet Indications: Radiculopathy, lumbar region , Spinal stenosis, lumbar region, without neurogenic claudication , Lumbar spondylosis Take 1 tablet by mouth two times a day as needed. 40 tablet 0 12/29/2023 Active Norgestimate-Ethinyl Estradiol (2 sources) Start: Norgestimate-Ethiny l Estradiol Active TAB PO September 25, 2023 1:00am NORGESTIMATE-ETHINYL ESTRADIOL (TRI-PREVIFEM, 28, ORAL) (19 sources) NORGESTIMATE-ETH INY L ESTRADIOL (TRI-PREVIFEM, 28, ORAL) Indications: Numbness in both hands , Scoliosis , Numbness in both legs Take by mouth. 0 Active Comment on above: Take by mouth. 10 ml ocrelizumab 30 mg/ml injection (2 sources) Start: 020 Ocrevus 300 mg/10 mL intravenous solution IV, q6mo, Refills(s) 0 Start Date: 10/14/19 Status: Ordered Ocrevus (4 sources) Ocrevus Active sulfamethoxazole 800 mg / trimethoprim 160 mg oral tablet (2 sources) Dihydrofolate Reductase Inhibitor Antibacterial, Sulfonamide Antimicrobial Start: End: take 1 tablet by mouth twice daily sulfamethoxazole-tr imethoprim (BACTRIM DS) 800-160 mg per tablet Take 1 tablet by mouth twice daily for 3 days. 6 tablet 0 11/09/2021 11/12/2021 Active Comment on above: Take 1 tablet by [facility] [place] twice daily for 3 days. Tri-Previfem 0.18/0.215/0.25 MG-35 MCG (4 sources) take 1 mg by mouth once daily Tri-Previfem 0.18/0.215/0.25 MG-35 MCG Orally Once a day Active 24 hr venlafaxine 150 mg extended release oral capsule (16 sources) Serotonin and Norepinephrine Reuptake Inhibitor Start: 024 Venlafaxine Active MG PO September 25, 2023 1:00am Start: 07-30-2023 take 1 capsule by [facility] every hour venlafaxine ER (EFFEXOR XR) 150 mg 24 hr capsule Take 1 capsule by mouth every afternoon. 0 07/30/2023 Active Start: 10-14-2019 venlafaxine 15 0 mg Cap-ER Refills(s) 0 Start Date: 10/14/19 Status: Ordered Effexor Active Comment on above: Take 1 capsule by [facility] every afternoon. Vitamin D (4 sources) Vitamin D Active Vitamin D3 2000 intl units oral Tab (2 sources) Start: 05-12-2022 take 1 tablet by mouth once daily Vitamin D3 2000 intl units oral Tab 50 mcg, Oral, Daily, tab(s), Refills(s) 0 Start Date: 05/12/22 Status: Ordered Completed/Discontinued Medications Medication Drug Class(es) Dates Sig (Normalized) Sig (Original) acetaminophen 500 mg oral tablet (1 source) Start: 01-17-2024 End: 01-17-2024 acetaminophen 1,000 mg tab(s) (TYLENOL) [id number] actuat albuterol 0.09 mg/actuat metered dose inhaler (6 sources) beta2-Adrenergic Agonist Start: 09-25-2023 End: 12-19-2023 take 1 puff(s) by inhalation four times daily Albuterol Sulfate Discontinued 2 PUFF INHALATION Four times daily 8.5 September 25, 2023 1:00am December 19, 2023 1:35pm Start: 11-20-2022 take 2 puff(s) by in halation every four to six hours as needed Albuterol Sulfate HFA 108 (90 Base) MCG/ACT 2 puffs as needed Inhalation every 4-6 hours for 14 days Oct, Not-Taking Start: 11-20-2022 take 2 puff(s) by in halation every four to six hours as needed Albuterol Sulfate HFA 108 (90 Base) MCG/ACT 2 puffs as needed Inhalation every 4-6 hours for 14 days Oct, Not-Taking take 1 puff(s) by in halation every four hours as needed Albuterol Sulfate HFA 108 (90 Base) MCG/ACT 1 puff as needed Inhalation every 4 hrs Active amoxicillin 500 mg oral capsule (2 sources) Penicillin-class Antibacterial Start: 11-23-2022 take 1 capsule by mouth every eight hours Amoxicillin 500 MG 1 capsule Orally three times a day for 10 day(s) November, Not-Taking benzonatate 200 mg oral capsule (2 sources) Non-narcotic Antitussive Start: 09-25-2023 End: 12-19-2023 Benzonatate Discontinued 200 MG PO 2-3 TIMES PER DAY September 25, 2023 1:00am December 19, 2023 1:35pm cefdinir 300 mg oral capsule (2 sources) Cephalosporin Antibacterial Start: 09-25-2023 End: 12-19-2023 Cefdinir Discontinued MG PO September 25, 2023 1:00am December 19, 2023 1:35pm dextromethorphan hydrobromide 1.5 mg/ml / pyrilamine maleate 1.5 mg/ml oral solution (3 sources) Uncompetitive B-uqmzqe-E-aspartate Receptor Antagonist, Sigma-1 Agonist Start: 11-20-2022 take 10 mL by mouth every eight hours [place] DM 7.5-7.5 MG/5ML 10 mL Orally every 8 hours for 5 days Oct, Not-Taking diphenhydrAMINE hydrochloride 25 mg oral capsule (1 source) Histamine-1 Receptor Antagonist Start: 01-17-2024 End: 01-17-2024 diphenhydrAMINE 50 mg capsule (BENADRYL) Ketorolac (8 sources) Nonsteroidal Anti-inflammatory Drug, Cyclooxygenase Inhibitor Start: 01-04-2020 Toradol per 15 mg Dec, 30 mg Start: 09-04-2018 Toradol per 15 mg Aug, 60 mg methylPREDNISolone 125 mg injection (5 sources) Corticosteroid Start: 01-17-2024 End: 01-17-2024 methylPREDNISolone sod succinate(PF) 100 mg injection (SOLU-Medrol) Start: 08-23-2023 End: 08-29-2023 methylPREDNISolone (MEDROL, SLAMA,) 4 mg Dose-Pack Take as directed 21 tablet 0 08/23/2023 08/29/2023 Active Start: 11-20-2022 methylPREDNISo lone 4 MG as directed Orally for daily dose take half with breakfast, half with dinner for 6 days Oct, Not-Taking Comment on above: Take as directed ocrelizumab 600 mg in NaCl 0.9% 500 mL (OCREVUS) (1 source) Start: 01-17-2024 End: 01-17-2024 ocrelizumab 600 mg in NaCl 0.9% 500 mL (OCREVUS) predniSONE 20 mg oral tablet (3 sources) Start: 09-25-2023 End: 12-19-2023 take 40 mg by mouth once daily Prednisone Discontinued 40 MG PO Daily 10 September 25, 2023 1:00am December 19, 2023 1:35pm Start: 04-09-2023 take 1 tablet by silver th every twelve hours predniSONE 20 MG 1 tablet Orally bid for 5 days Mar, Active triamcinolone acetonide 40 mg/ml injectable suspension (5 sources) Corticosteroid Start: 04-08-2023 Kenalog-40 16 Mar, 2023 40 mg Start: 01-04-2020 Kenalog -40 mg Dec, 40 mg Problems Active Problems Problem Classification Problem Date Documented Da te Episodic/Chronic Abdominal pain (7 sources) Right lower quadrant pain; Translations: [Right lower quadrant pain] Onset: 05-24-2022 Episodic Acute bronchitis (1 source) Acute bronchitis due to other specified organisms Episodic Anxiety disorders (2 sources) Generalized anxiety disorder 05-12-2022 Chronic Chronic obstructive pulmonary disease and bronchiectasis (5 sources) Bronchitis, not specified as acute or chronic; Translations: [Bronchitis, not specified as acute or chronic] Episodic Deficiency and other anemia (1 source) Iron deficiency anemia, unspecified; Translations: [IRON DEFICIENCY ANEMIA UNSPECIFIED] Onset: 06-27-2022 Episodic Gastrointestinal hemorrhage (4 sources) Hemorrhage of rectum and anus; Translations: [Hemorrhage of anus and rectum] Onset: 05-24-2022 Episodic Genitourinary symptoms and ill-defined conditions (2 sources) Proteinuria 05-12-2022 Episodic Headache; including migraine (20 sources) Migraine without aura, not refractory ; Translations: [Migraine without aura, not intractable, without status migrainosus] Onset: 08-16-2015 08-16-2015 Chronic Immunizations and screening for infectious disease (4 sources) Contact with and (suspected) exposure to other viral communicable diseases; Translations: [Contact with and (suspected) exposure to other viral communicable diseases] Episodic Mood disorders (2 sources) Bipolar disorder 05-12-2022 Chronic Multiple sclerosis (20 sources) Multiple sclerosis; Translations: [Multiple sclerosis] Onset: 04-24-2014 Chronic Nutritional deficiencies (3 sources) Vitamin D deficiency; Translations: [Vitamin D deficiency, unspecified] Onset: 05-09-2022 05-12-2022 Chronic Other diseases of bladder and urethra (19 sources) Bladder dysfunction; Translations: [Neuromuscular dysfunction of bladder, unspecified] Onset: 07-08-2014 07-08-2014 Chronic Other ear and sense organ disorders (1 source) Impacted cerumen, left ear Episodic Other ear and sense organ disorders (1 source) Unspecified acute noninfective otitis externa, left ear Episodic Other endocrine disorders (19 sources) Adrenogenital disorder; Translations: [Adrenogenital disorder, unspecified] Onset: 04-12-2005 04-12-2005 Chronic Other endocrine disorders (19 sources) Precocious puberty; Translations: [Precocious puberty] Onset: 04-12-2005 04-12-2005 Chronic Other endocrine disorders (2 sources) Polycystic ovary syndrome 10-14-2019 Chronic Other endocrine disorders (1 source) Polycystic ovarian syndrome; Translations: [POLYCYSTIC OVARIAN SYNDROME] Onset: 05-09-2022 Chronic Other gastrointestinal disorders (4 sources) Irritable bowel syndrome; Translations: [Irritable bowel syndrome without diarrhea] Onset: 07-05-2022 05-12-2022 Chronic Other gastrointestinal disorders (1 source) Irritable bowel syndrome without diarrhea; Translations: [IRRITABLE BOWEL SYND W/O DIARRHEA] Onset: 06-27-2022 Chronic Other gastrointestinal disorders (2 sources) Altered bowel function; Translations: [Change in bowel habit] Onset: 05-24-2022 Episodic Other gastrointestinal disorders (2 sources) Alteration in bowel elimination 05-24-2022 Episodic Other gastrointestinal disorders (5 sources) Change in bowel habit; Translations: [CHANGE IN BOWEL HABIT] Onset: 06-22-2022 Episodic Other lower respiratory disease (2 sources) Dyspnea; Translations: [Shortness of breath] 12-19-2023 Episodic Other lower respiratory disease (1 source) Shortness of breath; Translations: [Shortness of breath] Onset: 12-19-2023 Episodic Other nervous system disorders (19 sources) Demyelinating disease of central nervous system; Translations: [Demyelinating disease of central nervous system, unspecified] Onset: 12-01-2013 12-01-2013 Chronic Other nutritional; endocrine; and metabolic disorders (2 sources) Body mass index 30+ - obesity 05-24-2022 Chronic Other nutritional; endocrine; and metabolic disorders (2 sources) Obesity 05-12-2022 Chronic Other skin disorders (2 sources) Acne vulgaris 05-12-2022 Episodic Other upper respiratory infections (1 source) Acute pharyngitis, unspecified Episodic Residual codes; unclassified (1 source) Tobacco user; Translations: [Tobacco use] Onset: 05-24-2022 Episodic Residual codes; unclassified (2 sources) Nicotine-filled electronic cigarette user 05-24-2022 Episodic Spondylosis; intervertebral disc disorders; other back problems (2 sources) Lumbar spondylosis; Translations: [Spondylosis without myelopathy or radiculopathy, lumbar region] 12-29-2023 Chronic Spondylosis; intervertebral disc disorders; other back problems (20 sources) Backache; Translations: [Dorsalgia, unspecified] Onset: 07-08-2014 07-08-2014 Episodic Substance-related disorders (1 source) Nicotine dependence, other tobacco product, uncomplicated; Translations: [NICOTINE DEPEND OTH TOB PROD UNCOMP] Onset: 06-27-2022 Chronic Thyroid disorders (3 sources) Hypothyroidism; Translations: [Hypothyroidism, unspecified] Onset: 06-27-2022 10-14-2019 Chronic Unclassified (1 source) CONTACT W/AND (SUSP) EXPOS COVID-19; Translations: [CONTACT W/AND (SUSP) EXPOS COVID-19] Onset: 06-22-2022 Past or Other Problems Problem Classification Problem Date Documented Date Episodic/Chronic Deficiency and other anemia (19 sources) Anemia; Translations: [Anemia, unspecified] Onset: 01-13-2015 01-13-2015 Episodic Deficiency and other anemia (20 sources) Iron deficiency anemia; Translations: [Iron deficiency anemia, unspecified] Onset: 01-15-2015 01-15-2015 Episodic Headache; including migraine (19 sources) Headache; Translations: [Headache] Onset: 01-20-2015 01-20-2015 Episodic Other aftercare (20 sources) Patient encounter status; Translations: [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] Onset: 07-14-2017 07-14-2017 Episodic Other aftercare (2 sources) Other prison (current) drug therapy; Translations: [OTH BOXCAR WEIGHER CURRENT DRUG THERAPY] Onset: 07-14-2017 Episodic Other aftercare (1 source) Long-term current use of drug therapy; Translations: [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] Onset: 07-14-2017 07-14-2017 Episodic Other female genital disorders (19 sources) History of gynecological disorder; Translations: [Personal history of other diseases of the female genital tract] Onset: 10-05-2015 10-05-2015 Episodic Residual codes; unclassified (19 sources) Memory impairment; Translations: [Other amnesia] Onset: 08-11-2015 08-11-2015 Episodic Unclassified (1 source) Contact with and (suspected) exposure to covid-19 Z20.822 Urinary tract infections (19 sources) Recurrent urinary tract infection; Translations: [Urinary tract infection, site not specified] Onset: 08-11-2015 08-11-2015 Episodic Viral infection (1 source) COVID-19 Results Test Name Value Interpretation Reference Range Facility CBC W Auto Differential pane l (Bld)on 01-17-2024 Basophils (Bld) [#/Vol] 0.03 10*3/uL [facility] Basophils/100 WBC (Bld) 0.3 % [facility] Differential cell count method Nom (Bld) Auto [facility] Eosinophils (Bld) [#/Vol] 0.14 10*3/uL [facility] Eosinophils/100 WBC (Bld) 1.4 % [facility] Erythrocyte distribution width (RBC) [Ratio] 12.7 % 11.5 - 15.0 % [facility] Hematocrit (Bld) [Volume fraction] 42.7 % 36.0 - 46.0 % [facility] Hemoglobin (Bld) [Mass/Vol] 13.9 g/dL 11.5 - 15.5 g/dL [facility] Immature granulocytes (Bld) [#/Vol] 0.04 10*3/uL [facility] Immature granulocytes/100 WBC (Bld) 0.4 % [facility] Lymphocytes (Bld) [#/Vol] 1.66 10*3/uL [facility] Lymphocytes/100 WBC (Bld) 17.0 % [facility] MCH (RBC) [Entitic mass] 28.7 pg 26.0 - 34.0 pg [facility] MCHC (RBC) [Mass/Vol] 32.6 g/dL 30.5 - 36.0 g/dL [facility] MCV (RBC) [Entitic vol] 88.0 fL 80.0 - 100.0 fL [facility] Monocytes (Bld) [#/Vol] 0.47 10*3/uL [facility] Monocytes/100 WBC (Bld) 4.8 % [facility] Neutrophils (Bld) [#/Vol] 7.41 10*3/uL [facility] Neutrophils/100 WBC (Bld) 76.1 % [facility] Nucleated RBC (Bld) [#/Vol] [facility] Nucleated RBC/100 WBC (Bld) [Ratio] 0.0 % /100 WBC [facility] Platelet mean volume (Bld) [Entitic vol] 9.7 fL 9.0 - 12.7 fL [facility] Platelets (Bld) [#/Vol] 346 10*3/uL [facility] RBC (Bld) [#/Vol] 4.85 10*6/uL 3.90 - 5.20 m/uL [facility] WBC (Bld) [#/Vol] 9.75 10*3/uL [facility] Basophils (Bld) [#/Vol] 0.03 10*3/uL Normal <0.11 [facility] Comment on above: Order Comment: Speci men Type: BLOOD SPECIMEN Ordering Facility: [facility] Address: [address] [place] [address] Performed By: #### 2 465-3 #### [facility] CLIA [id number] [facility] [place] [address] [place] Basophils/100 WBC (Bld) 0.3 % Normal [facility] Comment on above: Order Comment: Speci men Type: BLOOD SPECIMEN Ordering Facility: [facility] Address: [address] [place] [address] Performed By: #### 2 465-3 #### [facility] CLIA [id number] [address] [place] [address] [place] Differential cell count method Nom (Bld) Auto Normal [facility] Comment on above: Order Comment: Speci men Type: BLOOD SPECIMEN Ordering Facility: [facility] Address: [address] [place] [address] Performed By: #### 2 465-3 #### [facility] CLIA [id number] [address] [place] [address] [place] Eosinophils (Bld) [#/Vol] 0.14 10*3/uL Normal <0.46 [facility] Comment on above: Order Comment: Speci men Type: BLOOD SPECIMEN Ordering Facility: [facility] Address: [address] [place] [address] Performed By: #### 2 465-3 #### [facility] CLIA [id number] [address] [place] [address] [place] Eosinophils/100 WBC (Bld) 1.4 % Normal [facility] Comment on above: Order Comment: Speci men Type: BLOOD SPECIMEN Ordering Facility: [facility] Address: [address] [place] [address] Performed By: #### 2 465-3 #### [facility] CLIA [id number] [address] [place] [address] [place] Erythrocyte distribution width (RBC) [Ratio] 12.7 % Normal 11.5-15.0 [facility] Comment on above: Order Comment: Speci men Type: BLOOD SPECIMEN Ordering Facility: [facility] Address: [address] [place] [address] Performed By: #### 2 465-3 #### [facility] CLIA [id number] [address] [place] [address] [place] Hematocrit (Bld) [Volume fraction] 42.7 % Normal 36.0-46.0 [facility] Comment on above: Order Comment: Speci men Type: BLOOD SPECIMEN Ordering Facility: [facility] Address: [address] [place] [address] Performed By: #### 2 465-3 #### [facility] CLIA [id number] [address] [place] [address] [place] Hemoglobin (Bld) [Mass/Vol] 13.9 g/dL Normal 11.5-15.5 [facility] Comment on above: Order Comment: Speci men Type: BLOOD SPECIMEN Ordering Facility: [facility] Address: [address] [place] [address] Performed By: #### 2 465-3 #### [facility] CLIA [id number] [address] [place] [address] [place] Immature granulocytes (Bld) [#/Vol] 0.04 10*3/uL Normal <0.10 [facility] Comment on above: Order Comment: Speci men Type: BLOOD SPECIMEN Ordering Facility: [facility] Address: [address] [place] [address] Performed By: #### 2 465-3 #### [facility] CLIA [id number] [address] [place] [address] [place] Immature granulocytes/100 WBC (Bld) 0.4 % Normal [facility] Comment on above: Order Comment: Speci men Type: BLOOD SPECIMEN Ordering Facility: [facility] Address: [address] [place] [address] Performed By: #### 2 465-3 #### [facility] CLIA [id number] [address] [place] [address] [place] Lymphocytes (Bld) [#/Vol] 1.66 10*3/uL Normal 1.00-4.00 [facility] Comment on above: Order Comment: Speci men Type: BLOOD SPECIMEN Ordering Facility: [facility] Address: [address] [place] [address] Performed By: #### 2 465-3 #### [facility] CLIA [id number] [address] [place] [address] [place] Lymphocytes/100 WBC (Bld) 17.0 % Normal [facility] Comment on above: Order Comment: Speci men Type: BLOOD SPECIMEN Ordering Facility: [facility] Address: [address] [place] [address] Performed By: #### 2 465-3 #### [facility] CLIA [id number] [address] [place] [address] [place] MCH (RBC) [Entitic mass] 28.7 pg Normal 26.0-34.0 [facility] Comment on above: Order Comment: Speci men Type: BLOOD SPECIMEN Ordering Facility: [facility] Address: [address] [place] [address] Performed By: #### 2 465-3 #### [facility] CLIA [id number] [address] [place] [address] [place] MCHC (RBC) [Mass/Vol] 32.6 g/dL Normal 30.5-36.0 [facility] Comment on above: Order Comment: Speci men Type: BLOOD SPECIMEN Ordering Facility: [facility] Address: [address] [place] [address] Performed By: #### 2 465-3 #### [facility] CLIA [id number] [address] [place] [address] [place] MCV (RBC) [Entitic vol] 88.0 fL Normal 80.0-100.0 [facility] Comment on above: Order Comment: Speci men Type: BLOOD SPECIMEN Ordering Facility: [facility] Address: [address] [place] [address] Performed By: #### 2 465-3 #### [facility] CLIA [id number] [address] [place] [address] [place] Monocytes (Bld) [#/Vol] 0.47 10*3/uL Normal <0.87 [facility] Comment on above: Order Comment: Speci men Type: BLOOD SPECIMEN Ordering Facility: [facility] Address: [address] [place] [address] Performed By: #### 2 465-3 #### [facility] CLIA [id number] [address] [place] [address] [place] Monocytes/100 WBC (Bld) 4.8 % Normal [facility] Comment on above: Order Comment: Speci men Type: BLOOD SPECIMEN Ordering Facility: [facility] Address: [address] [place] [address] Performed By: #### 2 465-3 #### [facility] CLIA [id number] [address] [place] [address] [place] Neutrophils (Bld) [#/Vol] 7.41 10*3/uL Normal 1.45-7.50 [facility] Comment on above: Order Comment: Speci men Type: BLOOD SPECIMEN Ordering Facility: [facility] Address: [address] [place] [address] Performed By: #### 2 465-3 #### [facility] CLIA [id number] [address] [place] [address] [place] Neutrophils/100 WBC (Bld) 76.1 % Normal [facility] Comment on above: Order Comment: Speci men Type: BLOOD SPECIMEN Ordering Facility: [facility] Address: [address] [place] [address] Performed By: #### 2 465-3 #### [facility] CLIA [id number] [address] [place] [address] [place] Nucleated RBC (Bld) [#/Vol] 10*3/uL Normal <0.01 [facility] Comment on above: Order Comment: Speci men Type: BLOOD SPECIMEN Ordering Facility: [facility] Address: [address] [place] [address] Performed By: #### 2 465-3 #### [facility] CLIA [id number] [address] [place] [address] [place] Nucleated RBC/100 WBC (Bld) [Ratio] 0.0 /100 WBC Normal [facility] Comment on above: Order Comment: Speci men Type: BLOOD SPECIMEN Ordering Facility: [facility] Address: [address] [place] [address] Performed By: #### 2 465-3 #### [facility] CLIA [id number] [address] [place] [address] [place] Platelet mean volume (Bld) [Entitic vol] 9.7 fL Normal 9.0-12.7 [facility] Comment on above: Order Comment: Speci men Type: BLOOD SPECIMEN Ordering Facility: [facility] Address: [address] [place] [address] Performed By: #### 2 465-3 #### [facility] CLIA [id number] [address] [place] [address] [place] Platelets (Bld) [#/Vol] 346 10*3/uL Normal 150-400 [facility] Comment on above: Order Comment: Speci men Type: BLOOD SPECIMEN Ordering Facility: [facility] Address: [address] [place] [address] Performed By: #### 2 465-3 #### [facility] CLIA [id number] [address] [place] [address] [place] RBC (Bld) [#/Vol] 4.85 10*6/uL Normal 3.90-5.20 [facility] Comment on above: Order Comment: Speci men Type: BLOOD SPECIMEN Ordering Facility: [facility] Address: [address] [place] [address] Performed By: #### 2 465-3 #### [facility] CLIA [id number] [address] [place] [address] [place] WBC (Bld) [#/Vol] 9.75 10*3/uL Normal 3.70-11.00 [facility] Comment on above: Order Comment: Speci men Type: BLOOD SPECIMEN Ordering Facility: [facility] Address: [address] [place] [address] Performed By: #### 2 465-3 #### [facility] CLIA [id number] [address] [place] [address] [place] CD19 ABSOLUTE COUNTon 2023 CD3-CD19+ cells (Bld) [#/Vol] 0 cells/uL Low 75-660 [facility] Comment on above: Order Comment: Speci men Type: BLOOD SPECIMEN Ordering Facility: [facility] Address: [address] [place] [address] Performed By: #### A BS19 #### [facility] CLIA [id number] [address] [place] [address] [place] CD3-CD19+ cells/100 cells (Bld) 0 % Low 5-22 [facility] Comment on above: Order Comment: Speci men Type: BLOOD SPECIMEN Ordering Facility: [facility] Address: [address] [place] [address] Performed By: #### A BS19 #### [facility] CLIA [id number] [address] [place] [address] [place] Lymphocytes/100 WBC FC (Bld) Normal [facility] Comment on above: Order Comment: Speci men Type: BLOOD SPECIMEN Ordering Facility: [facility] Address: [address] [place] [address] Performed By: #### A BS19 #### [facility] CLIA [id number] [address] [place] [address] [place] Comprehensive metabolic 2000 panelOrdered By: Josh Durham on 01-17-2024 Albumin [Mass/Vol] 3.9 g/dL 3.9 - 4.9 g/dL [facility] ALP [Catalytic activity/Vol] 89 U/L 34 - 123 U/L [facility] ALT [Catalytic activity/Vol] 23 U/L 7 - 38 U/L [facility] Anion gap [Moles/Vol] 5 mmol/L Low 8 - 15 mmol/L [facility] AST [Catalytic activity/Vol] 18 U/L 13 - 35 U/L [facility] Bilirubin [Mass/Vol] 0.3 mg/dL 0.2 - 1 .3 mg/dL [facility] Calcium [Mass/Vol] 9.5 mg/dL 8.5 - 10. 2 mg/dL [facility] Chloride [Moles/Vol] 105 mmol/L 98 - 10 7 mmol/L [facility] CO2 [Moles/Vol] 30 mmol/L 22 - 30 mmol/L [facility] Creatinine [Mass/Vol] 0.84 mg/dL 0.58 - 0.96 mg/dL [facility] GFR/1.73 sq M.predicted among non-blacks MDRD (S/P/Bld) [Vol rate/Area] 98 mL/min/{1.73_m2} - PINF [facility] Comment on above: Estimated Glomerular Filtration Rate (eGFR) is calculated using the 2020 CKD-EPI creatinine equation. This equation utilizes serum creatinine, sex, and age as parameters. The creatinine assay has traceable calibration to isotope dilution-mass spectrometry. Refer to KDIGO guidelines for clinical interpretation. In patients with unstable renal function, e.g. those with acute kidney injury, the eGFR may not accurately reflect actual GFR. Glucose [Mass/Vol] 103 mg/dL High 74 - 99 mg/dL [facility] Comment on above: The [place] Diab[employer] s Association (ADA) provides guidance for cutoff values for fasting glucose and random glucose. The ADA defines fasting as no caloric intake for at least 8 hours. Fasting plasma glucose results between 100 to 125 mg/dL indicate increased risk for diabetes (prediabetes). Fasting plasma glucose results greater than or equal to 126 mg/dL meet the criteria for diagnosis of diabetes. In the absence of unequivocal hyperglycemia, results should be confirmed by repeat testing. In a patient with classic symptoms of hyperglycemia or hyperglycemic crisis, random plasma glucose results greater than or equal to 200 mg/dL meet the criteria for diagnosis of diabetes. Reference: Standards of Medical Care in Diabetes 2016, [place] [employer]. Diabetes Care. 2016.39(Suppl 1). Interpretation and review of laboratory results Abnormal [facility] Potassium [Moles/Vol] 4.5 mmol/L 3.7 - 5.1 mmol/L [facility] Protein [Mass/Vol] 6.3 g/dL 6.3 - 8.0 g/dL [facility] Sodium [Moles/Vol] 140 mmol/L 136 - 144 mmol/L [facility] Urea nitrogen [Mass/Vol] 13 mg/dL 7 - 21 mg/dL [facility] Comprehensive metabolic 2000 panelon 01-17-2024 Albumin [Mass/Vol] 3.9 g/dL Normal 3.9-4.9 [facility] Comment on above: Order Comment: Levon rangel Type: BLOOD SPECIMEN Ordering Facility: [facility] Address: [address] [place] [address] Performed By: #### 2 465-3 #### [facility] CLIA [id number] [address] [facility] [place] [address] [place] ALP [Catalytic activity/Vol] 89 U/L Normal 34-123 [facility] Comment on above: Order Comment: Speci men Type: BLOOD SPECIMEN Ordering Facility: [facility] Address: [address] [place] [address] Performed By: #### 2 465-3 #### [facility] CLIA [id number] [address] [place] [address] [place] ALT [Catalytic activity/Vol] 23 U/L Normal 7-38 [facility] Comment on above: Order Comment: Speci men Type: BLOOD SPECIMEN Ordering Facility: [facility] Address: [address] [place] [address] Performed By: #### 2 465-3 #### [facility] CLIA [id number] [address] [place] [address] [place] Anion gap [Moles/Vol] 5 mmol/L Low 8-15 [facility] Comment on above: Order Comment: Speci men Type: BLOOD SPECIMEN Ordering Facility: [facility] Address: [address] [place] [address] Performed By: #### 2 465-3 #### [facility] CLIA [id number] [address] [place] [address] [place] AST [Catalytic activity/Vol] 18 U/L Normal 13-35 [facility] Comment on above: Order Comment: Speci men Type: BLOOD SPECIMEN Ordering Facility: [facility] Address: [address] [place] [address] Performed By: #### 2 465-3 #### [facility] CLIA [id number] [address] [place] [address] [place] Bilirubin [Mass/Vol] 0.3 mg/dL Normal 0.2-1.3 [facility] Comment on above: Order Comment: Speci men Type: BLOOD SPECIMEN Ordering Facility: [facility] Address: [address] [place] [address] Performed By: #### 2 465-3 #### [facility] CLIA [id number] [address] [place] [place] [address] [place] Calcium [Mass/Vol] 9.5 mg/dL Normal 8.5-10.2 [facility] Comment on above: Order Comment: Speci men Type: BLOOD SPECIMEN Ordering Facility: [facility] Address: [address] [place] [address] Performed By: #### 2 465-3 #### [facility] CLIA [id number] [address] [place] [address] [place] Chloride [Moles/Vol] 105 mmol/L Normal 98-107 [facility] Comment on above: Order Comment: Speci men Type: BLOOD SPECIMEN Ordering Facility: [facility] Address: [address] [place] [address] Performed By: #### 2 465-3 #### [facility] CLIA [id number] [address] [place] [address] [place] CO2 [Moles/Vol] 30 mmol/L Normal 22-30 [facility] Comment on above: Order Comment: Speci men Type: BLOOD SPECIMEN Ordering Facility: [facility] Address: [address] [place] [address] Performed By: #### 2 465-3 #### [facility] CLIA [id number] [address] [place] [address] [place] Creatinine [Mass/Vol] 0.84 mg/dL Normal 0.58-0.96 [facility] Comment on above: Order Comment: Speci men Type: BLOOD SPECIMEN Ordering Facility: [facility] Address: [address] [place] [address] Performed By: #### 2 465-3 #### [facility] CLIA [id number] [address] [place] [address] [place] Creatinine and Glomerular filtration rate.predicted panel (S/P/Bld) 98 mL/min/1.73m??? Normal >=60 [facility] Comment on above: Order Comment: Speci men Type: BLOOD SPECIMEN Ordering Facility: [facility] Address: [address] [place], [place] [id number] Result Comment: Kamala mated Glomerular Filtration Rate (eGFR) is calculated using the 2020 CKD-EPI creatinine equation. This equation utilizes serum creatinine, sex, and age as parameters. The creatinine assay has traceable calibration to isotope dilution-mass spectrometry. Refer to KDIGO guidelines for clinical interpretation. In patients with unstable renal function, e.g. those with acute kidney injury, the eGFR may not accurately reflect actual GFR. Performed By: #### 2 465-3 #### [facility] CLIA [id number] [facility] [place] [address] [place] Glucose [Mass/Vol] 103 mg/dL High 74-99 [facility] Comment on above: Order Comment: Speci men Type: BLOOD SPECIMEN Ordering Facility: [facility] Address: [address] [place] [address] Result Comment: The [place] Diabetes Association (ADA) provides guidance for cutoff values for fasting glucose and random glucose. The ADA defines fasting as no caloric intake for at least 8 hours. Fasting plasma glucose results between 100 to 125 mg/dL indicate increased risk for diabetes (prediabetes). Fasting plasma glucose results greater than or equal to 126 mg/dL meet the criteria for diagnosis of diabetes. In the absence of unequivocal hyperglycemia, results should be confirmed by repeat testing. In a patient with classic symptoms of hyperglycemia or hyperglycemic crisis, random plasma glucose results greater than or equal to 200 mg/dL meet the criteria for diagnosis of diabetes. Reference: Standards of Medical Care in Diabetes 2016, [place] [employer]. Diabetes Care. 2016.39(Suppl 1). Performed By: #### 2 465-3 #### [facility] CLIA [id number] [address] [place] [address] [place] Potassium [Moles/Vol] 4.5 mmol/L Normal 3.7-5.1 [facility] Comment on above: Order Comment: Balbiri men Type: BLOOD SPECIMEN Ordering Facility: [facility] Address: [address] [place] [address] Performed By: #### 2 465-3 #### [facility] CLIA [id number] [facility] [place] [id number] [place] Protein [Mass/Vol] 6.3 g/dL Normal 6.3-8.0 [facility] Comment on above: Order Comment: Speci men Type: BLOOD SPECIMEN Ordering Facility: [facility] Address: [address] [place] [address] Performed By: #### 2 465-3 #### [facility] CLIA [id number] [address] [place] [address] [place] Sodium [Moles/Vol] 140 mmol/L Normal 136-144 [facility] Comment on above: Order Comment: Speci men Type: BLOOD SPECIMEN Ordering Facility: [facility] Address: [address] [place] [address] Performed By: #### 2 465-3 #### [facility] CLIA [id number] [address] [place] [address] [place] Urea nitrogen [Mass/Vol] 13 mg/dL Normal 7-21 [facility] Comment on above: Order Comment: Speci men Type: BLOOD SPECIMEN Ordering Facility: [facility] Address: [address] [place] [address] Performed By: #### 2 465-3 #### [facility] CLIA [id number] [address] [place] [address] [place] IMMUNOGLOBULIN Aaron IgG [Mass/Vol] 459 mg/dL Low 700 - 1600 mg/dL [facility] IgG SerPl-mCncon 01-17-2024 IgG [Mass/Vol] 459 mg/dL Low 700-1600 [facility] Comment on above: Order Comment: Speci men Type: BLOOD SPECIMEN Ordering Facility: [facility] Address: [address] [place] [address] Performed By: #### 2 465-3 #### [facility] CLIA [id number] [address] [place] [address] [place] IgG [Mass/Vol]on 01-17-2024 Interpretation and review of laboratory results Abnormal [facility] CNOVon 12-29-2023 CNOV Office Visit (SPNMMN ) NATALIE JAQUEZ ([id number]) 1995 F Date Time Provider Department 12/29/23 1:50 PM MARIELLE GARCIA [facility] During your visit today, we recorded the following information about you: Pulse Respiration Blood pressure Weight 91/minute 17/minute 141/99 124.4 kg Height 1.676 m Marielle Garcia 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 Denies accident/injury Pain localized to lower lumbar spine into left leg Pain described as aching, radiating Radiation: left buttock and back of the leg Numbness/Tingling: none consistent Sleep ok Some bladder dysfunction Pain worse with increased Pain improved with rest Interventions: meds, stretches Medications: Baclofen, tylenol, aleve Prevoiusly on: medrol salma, methocarbanol Physical Therapy: stretching HEP, none formal History of Spine Injections/Surgery: None Hx: bipolar, MS, morbid obesity Other Issues Addressed at the Visit Today: None. Precipitating Event: None PAIN EVALUATION 12/25/20232008 Pain Level: 6 Description: Aching;Numbness;Shooting Duration Amount of Time: 4 Duration Units: Months Frequency: Intermittent Intervention/Comfort measure: Medication;Relaxation Litigation: No Workers' Compensation: No YELLOW AND BLUE FLAGS No-Neg Attitude; Back Pain is Disabling No-Avoiding Activity (for Fear of Pain) No-Depression or Anxiety Disorders No-Social Problems No-Substance Use Disorder No-Job Dissatisfaction No-Financial Disincentives Patient Entered Questionnaires 12/25/2023 Spine Questions Pain Location: Lower back Pain Duration: 3-6 months Pain over last 6 months: At least half the days in the past 6 months Symptoms from neck/cervical spine: No Employment Status: Working now Involved in law suit/legal claim: No 12/25/2023 Spine Red Flags Any type of cancer: No Unexplained fever: No Bowel or bladder disfunction: Yes Unintentional weight loss: No Osteoporosis: No PROMIS Score Percentiles 12/25/2023 Physical Health Physical Function Percentile 8 Sleep Percentile 69 Fatigue Percentile 1 Pain Interference Percentile 4 12/25/2023 PROMIS SOCIAL ROLE SCORE Social Role Satisfaction Percentile 69 01/29/2022 08/31/2022 12/25/2023 PROMIS Global Health Scale Physical Health Percentile 31 7 10 Mental Health Percentile 34 43 43 Percentiles provide an indication of how the patient's score ranks in relation to the general population. Higher percentile rankings indicate better function/quality of life. 50th percentile is the average of the general population and indicates half of respondents had a worse score. 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) Multiple Sclerosis (Hcc) Bladder Dysfunction Backache Anemia Iron Deficiency Anemia Headache Memory Disorder Frequent Uti Migraine Without Aura and Without Status Migrainosus, Not Intractable History of Pcos Encounter for Long-Term (Current) Use of Medications PAST MEDICAL HISTORY Diagnosis Date Multiple sclerosis (HCC) Myopia Bilateral Wears glasses PAST SURGICAL HISTORY Procedure Laterality Date REMOVAL GALLBLADDER THERAPEUTIC SPINAL PUNCTURE DRAINAGE CSF 10/31/2013 TONSILLECTOMY HX Social History Tobacco Use Smoking status: Never Passive exposure: Yes Smokeless tobacco: Never Vaping Use Vaping Use: current everyday user Substance Use Topics Alcohol use: No Drug use: No FAMILY HISTORY Problem Relation Age of Onset No Ocular Disease Other COPD Mother other (crohns) Mother Diabetes Father ALLERGIES Allergen Reactions Avonex [Interferon * Hives, Shortness of Breath Pt was seen at ED for bronchospasms, hives and treated. Copaxone [Glatirame* Rash CURRENT MEDICATIONS: venlafaxine ER (EFFEXOR XR) 150 mg 24 hr capsule Take 1 capsule by mouth every afternoon. dextroamphetamine-amphetami ne (ADDERALL) 20 mg tablet Take by mouth. baclofen (LIORESAL) 10 mg tablet Take 1 tablet by mouth at bedtime as needed. Take 1 tabl (more content not included)... 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 The cardiac, hilar and mediastinal silhouettes are within normal limits. There is no vascular congestion. The visualized bony thorax is intact. There is subtle levoscoliotic curvature. XR/XR chest 2V* IMPRESSION: NO ACUTE CARDIOPULMONARY ABNORMALITY. Impression dictated by: Serena Martin M.D.12/19/2023 2:18 PM Dictation Location: [place] [address] Transcribed By: [facility] 12/19/23 1418 Dictated By: Serena Martin MD 12/19/23 141 Signed By: 12/19/23 141 Normal [facility] MR Brain WO and W contrast I Von 11-14-2023 * * *Final Report* * * DATE OF EXAM: Nov 14 2023 1:20PM [id number] [id number] - MRI BRAIN WO/W IVCON / PROCEDURE REASON: Multiple sclerosis (HCC) * * * * Physician Interpretation * * * * EXAMINATION: MRI BRAIN WO/W IVCON, MRI LUMBAR SPINE WO IVCON HISTORY: Multiple sclerosis. Routine follow-up TECHNIQUE: Brain MRI with demyelinating disease protocol with and without gadolinium. Routine cervical spine and thoracic protocol with and without gadolinium. MQ: [id number] Contrast: 20 mL Dotarem IV COMPARISON: 03/31/2020 RESULT: MR BRAIN: Parenchymal Findings: There are multiple foci of hyperintensity on FLAIR and T2 within the white matter, compatible with the clinical diagnosis of multiple sclerosis. New T2 Lesions: None Site(s) of New/Larger T2 Lesion(s): Not applicable Interval Improvement: None. New Enhancing Lesions: None T2 [place] of Disease: Mild. Parenchymal Volume Loss: None. Other Significant Findings: Left mastoid effusion.. MR LUMBAR: Counting reference: Lumbosacral junction. For the purposes of this report, L4-5 is considered the level of the iliac crest and there are 5 lumbar-type vertebrae. Anatomic Variants: None. Alignment: Grade 1 retrolisthesis of L4 on L5. Cord Findings: The visualized cord is within normal limits of signal intensity and morphology. Cord T2 Plaque [place]: None New T2 Lesions: None Interval Cord Improvement: None New Cord Enhancing Lesions: None Cord Volume Loss: Normal morphology for age Bone marrow signal/fracture: No evidence of pathologic marrow infiltration. No evidence of prior fracture. Thoracic soft tissues: The paraspinal soft tissues are within normal limits. Canal and foramina: Endplate changes are seen at superior endplate of T12. L1-L2 through L3-L4: No significant spinal stenosis. L4-L5: Central/right paracentral disc bulge with associated annular fissure, contacting/compressing the intrathecal L5 nerve roots as well as the exiting right L4 nerve root in the right lateral recess. Mild left neural foraminal stenosis. Moderate canal stenosis. L5-S1: Broad-based posterolateral disc bulge with central annular fissure, slightly asymmetric to the left, extending into the neural foramen, contacts the exiting left L5 nerve root. Mild canal stenosis. *Note:? The definition of new T2 Lesions includes both new and enlarging plaques on T2-weighted FLAIR images (new lesions greater than or equal to 5mm3 or an increase in diameter of an existing lesion by greater than or equal to 2mm). DIVISION OF RADIOLOGY Provider, Patricia Ludmila [facility] - 11/14/2023 * * *Final Report* * * DATE OF EXAM: Nov 14 2023 1:20PM BRM [id number] - MRI BRAIN WO/W IVCON / PROCEDURE REASON: Multiple sclerosis (HCC) * * * * Physician Interpretation * * * * EXAMINATION: MRI BRAIN WO/W IVCON, MRI LUMBAR SPINE WO IVCON HISTORY: Multiple sclerosis. Routine follow-up TECHNIQUE: Brain MRI with demyelinating disease protocol with and without gadolinium. Routine cervical spine and thoracic protocol with and without gadolinium. MQ: [id number] Contrast: 20 mL Dotarem IV COMPARISON: 03/31/2020 RESULT: MR BRAIN: Parenchymal Findings: There are multiple foci of hyperintensity on FLAIR and T2 within the white matter, compatible with the clinical diagnosis of multiple sclerosis. New T2 Lesions: None Site(s) of New/Larger T2 Lesion(s): Not applicable Interval Improvement: None. New Enhancing Lesions: None T2 [place] of Disease: Mild. Parenchymal Volume Loss: None. Other Significant Findings: Left mastoid effusion.. MR LUMBAR: Counting reference: Lumbosacral junction. For the purposes of this report, L4-5 is considered the level of the iliac crest and there are 5 lumbar-type vertebrae. Anatomic Variants: None. Alignment: Grade 1 retrolisthesis of L4 on L5. Cord Findings: The visualized cord is within normal limits of signal intensity and morphology. Cord T2 Plaque [place]: None New T2 Lesions: None Interval Cord Improvement: None New Cord Enhancing Lesions: None Cord Volume Loss: Normal morphology for age Bone marrow signal/fracture: No evidence of pathologic marrow infiltration. No evidence of prior fracture. Thoracic soft tissues: The paraspinal soft tissues are within normal limits. Canal and foramina: Endplate changes are seen at superior endplate of T12. L1-L2 through L3-L4: No significant spinal stenosis. L4-L5: Central/right paracentral disc bulge with associated annular fissure, contacting/compressing the intrathecal L5 nerve roots as well as the exiting right L4 nerve root in the right lateral recess. Mild left neural foraminal stenosis. Moderate canal stenosis. L5-S1: Broad-based posterolateral disc bulge with central annular fissure, slightly asymmetric to the left, extending into the neural foramen, contacts the exiting left L5 nerve root. Mild canal stenosis. *Note:? The definition of new T2 Lesions includes both new and enlarging plaques on T2-weighted FLAIR images (new lesions greater than or equal to 5mm3 or an increase in diameter of an existing lesion by greater than or equal to 2mm). IMPRESSION IMPRESSION: Multiple intracranial white matter lesions compatible with multiple sclerosis. No new T2 lesions and no new enhancing lesions. No significant parenchymal volume loss. Other Significant Intracranial Findings: None The lower thoracic cord appears unremarkable without abnormal foci of T2 prolongation. Discogenic degenerative changes at L4-L5 and L5-S1 with annular fissures resulting in varying degrees of spinal stenosis, as described above. None. L4-5 is considered the level of the iliac crest and assume there are 5 lumbar-type vertebrae. Carpenter Ship: [facility] Transcribe Date/Time: Nov 14 2023 2:47P Dictated by : LEAH MURILLO MD This examination was interpreted and the report reviewed and electronically signed by: LEAH MURILLO MD on Nov 14 2023 2:59PM [facility] MR Lumbar spine WO contrasto n 11-14-2023 * * *Final Report* * * DATE OF EXAM: Nov 14 2023 1:20PM [id number] - MRI LUMBAR SPINE WO IVCON / PROCEDURE REASON: Spinal stenosis of lumbar region without neurogenic claudication * * * * Physician Interpretation * * * * EXAMINATION: MRI BRAIN WO/W IVCON, MRI LUMBAR SPINE WO IVCON HISTORY: Multiple sclerosis. Routine follow-up TECHNIQUE: Brain MRI with demyelinating disease protocol with and without gadolinium. Routine cervical spine and thoracic protocol with and without gadolinium. MQ: [id number] Contrast: 20 mL Dotarem IV COMPARISON: 03/31/2020 RESULT: MR BRAIN: Parenchymal Findings: There are multiple foci of hyperintensity on FLAIR and T2 within the white matter, compatible with the clinical diagnosis of multiple sclerosis. New T2 Lesions: None Site(s) of New/Larger T2 Lesion(s): Not applicable Interval Improvement: None. New Enhancing Lesions: None T2 [place] of Disease: Mild. Parenchymal Volume Loss: None. Other Significant Findings: Left mastoid effusion.. MR LUMBAR: Counting reference: Lumbosacral junction. For the purposes of this report, L4-5 is considered the level of the iliac crest and there are 5 lumbar-type vertebrae. Anatomic Variants: None. Alignment: Grade 1 retrolisthesis of L4 on L5. Cord Findings: The visualized cord is within normal limits of signal intensity and morphology. Cord T2 Plaque [place]: None New T2 Lesions: None Interval Cord Improvement: None New Cord Enhancing Lesions: None Cord Volume Loss: Normal morphology for age Bone marrow signal/fracture: No evidence of pathologic marrow infiltration. No evidence of prior fracture. Thoracic soft tissues: The paraspinal soft tissues are within normal limits. Canal and foramina: Endplate changes are seen at superior endplate of T12. L1-L2 through L3-L4: No significant spinal stenosis. L4-L5: Central/right paracentral disc bulge with associated annular fissure, contacting/compressing the intrathecal L5 nerve roots as well as the exiting right L4 nerve root in the right lateral recess. Mild left neural foraminal stenosis. Moderate canal stenosis. L5-S1: Broad-based posterolateral disc bulge with central annular fissure, slightly asymmetric to the left, extending into the neural foramen, contacts the exiting left L5 nerve root. Mild canal stenosis. *Note:? The definition of new T2 Lesions includes both new and enlarging plaques on T2-weighted FLAIR images (new lesions greater than or equal to 5mm3 or an increase in diameter of an existing lesion by greater than or equal to 2mm). DIVISION OF RADIOLOGY Provider, [facility] - 11/14/2023 * * *Final Report* * * DATE OF EXAM: Nov 14 2023 1:20PM [facility] 0303 - MRI LUMBAR SPINE WO IVCON / PROCEDURE REASON: Spinal stenosis of lumbar region without neurogenic claudication * * * * Physician Interpretation * * * * EXAMINATION: MRI BRAIN WO/W IVCON, MRI LUMBAR SPINE WO IVCON HISTORY: Multiple sclerosis. Routine follow-up TECHNIQUE: Brain MRI with demyelinating disease protocol with and without gadolinium. Routine cervical spine and thoracic protocol with and without gadolinium. MQ: [id number] Contrast: 20 mL Dotarem IV COMPARISON: 03/31/2020 RESULT: MR BRAIN: Parenchymal Findings: There are multiple foci of hyperintensity on FLAIR and T2 within the white matter, compatible with the clinical diagnosis of multiple sclerosis. New T2 Lesions: None Site(s) of New/Larger T2 Lesion(s): Not applicable Interval Improvement: None. New Enhancing Lesions: None T2 [place] of Disease: Mild. Parenchymal Volume Loss: None. Other Significant Findings: Left mastoid effusion.. MR LUMBAR: Counting reference: Lumbosacral junction. For the purposes of this report, L4-5 is considered the level of the iliac crest and there are 5 lumbar-type vertebrae. Anatomic Variants: None. Alignment: Grade 1 retrolisthesis of L4 on L5. Cord Findings: The visualized cord is within normal limits of signal intensity and morphology. Cord T2 Plaque [place]: None New T2 Lesions: None Interval Cord Improvement: None New Cord Enhancing Lesions: None Cord Volume Loss: Normal morphology for age Bone marrow signal/fracture: No evidence of pathologic marrow infiltration. No evidence of prior fracture. Thoracic soft tissues: The paraspinal soft tissues are within normal limits. Canal and foramina: Endplate changes are seen at superior endplate of T12. L1-L2 through L3-L4: No significant spinal stenosis. L4-L5: Central/right paracentral disc bulge with associated annular fissure, contacting/compressing the intrathecal L5 nerve roots as well as the exiting right L4 nerve root in the right lateral recess. Mild left neural foraminal stenosis. Moderate canal stenosis. L5-S1: Broad-based posterolateral disc bulge with central annular fissure, slightly asymmetric to the left, extending into the neural foramen, contacts the exiting left L5 nerve root. Mild canal stenosis. *Note:? The definition of new T2 Lesions includes both new and enlarging plaques on T2-weighted FLAIR images (new lesions greater than or equal to 5mm3 or an increase in diameter of an existing lesion by greater than or equal to 2mm). IMPRESSION IMPRESSION: Multiple intracranial white matter lesions compatible with multiple sclerosis. No new T2 lesions and no new enhancing lesions. No significant parenchymal volume loss. Other Significant Intracranial Findings: None The lower thoracic cord appears unremarkable without abnormal foci of T2 prolongation. Discogenic degenerative changes at L4-L5 and L5-S1 with annular fissures resulting in varying degrees of spinal stenosis, as described above. None. L4-5 is considered the level of the iliac crest and assume there are 5 lumbar-type vertebrae. Carpenter Ship: [facility] Transcribe Date/Time: Nov 14 2023 2:47P Dictated by : LEAH MURILLO MD This examination was interpreted and the report reviewed and electronically signed by: LEAH MURILLO MD on Nov 14 2023 2:59PM [facility] MRI BRAIN WO/W IVCONon 11-13 MRI BRAIN WO/W IVCON * * *Final Report* * * DATE OF EXAM: Nov 14 2023 1:20PM BRM [id number] - MRI BRAIN WO/W IVCON / PROCEDURE REASON: Multiple sclerosis (HCC) * * * * Physician Interpretation * * * * EXAMINATION: MRI BRAIN WO/W IVCON, MRI LUMBAR SPINE WO IVCON HISTORY: Multiple sclerosis. Routine follow-up TECHNIQUE: Brain MRI with demyelinating disease protocol with and without gadolinium. Routine cervical spine and thoracic protocol with and without gadolinium. MQ: [id number] Contrast: 20 mL Dotarem IV COMPARISON: 03/31/2020 RESULT: MR BRAIN: Parenchymal Findings: There are multiple foci of hyperintensity on FLAIR and T2 within the white matter, compatible with the clinical diagnosis of multiple sclerosis. New T2 Lesions: None Site(s) of New/Larger T2 Lesion(s): Not applicable Interval Improvement: None. New Enhancing Lesions: None T2 [place] of Disease: Mild. Parenchymal Volume Loss: None. Other Significant Findings: Left mastoid effusion.. MR LUMBAR: Counting reference: Lumbosacral junction. For the purposes of this report, L4-5 is considered the level of the iliac crest and there are 5 lumbar-type vertebrae. Anatomic Variants: None. Alignment: Grade 1 retrolisthesis of L4 on L5. Cord Findings: The visualized cord is within normal limits of signal intensity and morphology. Cord T2 Plaque [place]: None New T2 Lesions: None Interval Cord Improvement: None New Cord Enhancing Lesions: None Cord Volume Loss: Normal morphology for age Bone marrow signal/fracture: No evidence of pathologic marrow infiltration. No evidence of prior fracture. Thoracic soft tissues: The paraspinal soft tissues are within normal limits. Canal and foramina: Endplate changes are seen at superior endplate of T12. L1-L2 through L3-L4: No significant spinal stenosis. L4-L5: Central/right paracentral disc bulge with associated annular fissure, contacting/compressing the intrathecal L5 nerve roots as well as the exiting right L4 nerve root in the right lateral recess. Mild left neural foraminal stenosis. Moderate canal stenosis. L5-S1: Broad-based posterolateral disc bulge with central annular fissure, slightly asymmetric to the left, extending into the neural foramen, contacts the exiting left L5 nerve root. Mild canal stenosis. *Note:? The definition of new T2 Lesions includes both new and enlarging plaques on T2-weighted FLAIR images (new lesions greater than or equal to 5mm3 or an increase in diameter of an existing lesion by greater than or equal to 2mm). IMPRESSION: Multiple intracranial white matter lesions compatible with multiple sclerosis. No new T2 lesions and no new enhancing lesions. No significant parenchymal volume loss. Other Significant Intracranial Findings: None The lower thoracic cord appears unremarkable without abnormal foci of T2 prolongation. Discogenic degenerative changes at L4-L5 and L5-S1 with annular fissures resulting in varying degrees of spinal stenosis, as described above. None. L4-5 is considered the level of the iliac crest and assume there are 5 lumbar-type vertebrae. Carpenter Ship: [facility] Transcribe Date/Time: Nov 14 2023 2:47P Dictated by : LEAH MURILLO MD This examination was interpreted and the report reviewed and electronically signed by: LEAH MURILLO MD on Nov 14 2023 2:59PM EST [id number] Normal [facility] MRI LUMBAR SPINE WO IVCONon 11-14-2023 MRI LUMBAR SPINE WO IVCON * * *Final Report* * * DATE OF EXAM: Nov 14 2023 1:20PM [facility] 0303 - MRI LUMBAR SPINE WO IVCON / PROCEDURE REASON: Spinal stenosis of lumbar region without neurogenic claudication * * * * Physician Interpretation * * * * EXAMINATION: MRI BRAIN WO/W IVCON, MRI LUMBAR SPINE WO IVCON HISTORY: Multiple sclerosis. Routine follow-up TECHNIQUE: Brain MRI with demyelinating disease protocol with and without gadolinium. Routine cervical spine and thoracic protocol with and without gadolinium. MQ: [id number] Contrast: 20 mL Dotarem IV COMPARISON: 03/31/2020 RESULT: MR BRAIN: Parenchymal Findings: There are multiple foci of hyperintensity on FLAIR and T2 within the white matter, compatible with the clinical diagnosis of multiple sclerosis. New T2 Lesions: None Site(s) of New/Larger T2 Lesion(s): Not applicable Interval Improvement: None. New Enhancing Lesions: None T2 [place] of Disease: Mild. Parenchymal Volume Loss: None. Other Significant Findings: Left mastoid effusion.. MR LUMBAR: Counting reference: Lumbosacral junction. For the purposes of this report, L4-5 is considered the level of the iliac crest and there are 5 lumbar-type vertebrae. Anatomic Variants: None. Alignment: Grade 1 retrolisthesis of L4 on L5. Cord Findings: The visualized cord is within normal limits of signal intensity and morphology. Cord T2 Plaque [place]: None New T2 Lesions: None Interval Cord Improvement: None New Cord Enhancing Lesions: None Cord Volume Loss: Normal morphology for age Bone marrow signal/fracture: No evidence of pathologic marrow infiltration. No evidence of prior fracture. Thoracic soft tissues: The paraspinal soft tissues are within normal limits. Canal and foramina: Endplate changes are seen at superior endplate of T12. L1-L2 through L3-L4: No significant spinal stenosis. L4-L5: Central/right paracentral disc bulge with associated annular fissure, contacting/compressing the intrathecal L5 nerve roots as well as the exiting right L4 nerve root in the right lateral recess. Mild left neural foraminal stenosis. Moderate canal stenosis. L5-S1: Broad-based posterolateral disc bulge with central annular fissure, slightly asymmetric to the left, extending into the neural foramen, contacts the exiting left L5 nerve root. Mild canal stenosis. *Note:? The definition of new T2 Lesions includes both new and enlarging plaques on T2-weighted FLAIR images (new lesions greater than or equal to 5mm3 or an increase in diameter of an existing lesion by greater than or equal to 2mm). IMPRESSION: Multiple intracranial white matter lesions compatible with multiple sclerosis. No new T2 lesions and no new enhancing lesions. No significant parenchymal volume loss. Other Significant Intracranial Findings: None The lower thoracic cord appears unremarkable without abnormal foci of T2 prolongation. Discogenic degenerative changes at L4-L5 and L5-S1 with annular fissures resulting in varying degrees of spinal stenosis, as described above. None. L4-5 is considered the level of the iliac crest and assume there are 5 lumbar-type vertebrae. Carpenter Ship: [facility] Transcribe Date/Time: Nov 14 2023 2:47P Dictated by : LEAH MURILLO MD This examination was interpreted and the report reviewed and electronically signed by: LEAH MURILLO MD on Nov 14 2023 2:59PM EST [id number] Normal [facility] No Panel Informationon 11-13 IMPRESSION: Multiple intracranial white matter lesions compatible with multiple sclerosis. No new T2 lesions and no new enhancing lesions. No significant parenchymal volume loss. Other Significant Intracranial Findings: None The lower thoracic cord appears unremarkable without abnormal foci of T2 prolongation. Discogenic degenerative changes at L4-L5 and L5-S1 with annular fissures resulting in varying degrees of spinal stenosis, as described above. None. L4-5 is considered the level of the iliac crest and assume there are 5 lumbar-type vertebrae. Carpenter Ship: [facility] Transcribe Date/Time: Nov 14 2023 2:47P Dictated by : LEAH MURILLO MD This examination was interpreted and the report reviewed and electronically signed by: LEAH MURILLO MD on Nov 14 2023 2:59PM EST DIVISION OF RADIOLOGY Radiology Study observation (narrative) [facility] No Panel InformationOrdered By: [facility] Provider on 11-14-2023 [facility] CNOVon 08-29-2023 CNOV Office Visit (NEMN ) NATALIE JAQUEZ ([id number]) 1995 F Date Time Provider Department 08/29/23 9:15 AM [facility] During your visit today, we recorded the following information about you: Pulse Blood pressure Weight Height 77/minute 134/80 121.3 kg 1.676 m Last Period 08/29/23 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 08/29/2023 9:49 AM Signed [facility] FOLLOWUP/ESTABLISHED PATIENT VISIT PRINCIPAL NEUROLOGIC DIAGNOSIS: Multiple Sclerosis DISEASE SUMMARY Date of onset: 2009 Date of diagnosis of MS: 2013 Disease course at onset: Relapsing-Remitting Current disease course: Relapsing-Remitting Previous disease therapies: IVMP one time 08/08 (did not like them , felt like she was worse on these, felt more numb then better) Avonex- had injection site reactions, one time short of breath and felt like she would pass out after Avonex Copaxone- rash -Tecfidera- breakthrough disease Current disease therapy: -Ocrevus - last infusion 07/12/23 Most recent MRI brain: 01/23/23-Multiple intracranial white matter lesions compatible with multiple sclerosis. No new T2 lesions and no new enhancing lesions. No significant parenchymal volume loss. Other Significant Intracranial Findings: Large left and small right mastoid effusions, new from prior, with associated patchy enhancement. There is also new/increased soft tissue thickening and fluid in the left external auditory canal. Findings raise suspicion for infectious/inflammatory etiology, such as otitis media/mastoiditis, possibly with component of external otitis or reactive change. Correlate with history/symptomatology and exam. Most recent MRI cervical/thoracic spine: 01/23/23-Scattered intramedullary lesions compatible with the clinical history of multiple sclerosis. No new T2 intramedullary lesions and no new enhancing intramedullary lesions. No significant volume loss of the upper spinal cord for age. Other Significant Cervical Spine Findings: No significant cervical canal or foraminal stenosis. CSF: 11/04 Pos OCB JCV serology result and date: 08/12/15 neg Comorbidities: PCOS No results found for: JCVAB, JCVIND CHIEF COMPLAINT: Follow-up on MS disease modifying therapy INTERVAL HISTORY: Usual treating team: Jeff/Angela The patient was last seen 09/02/22, currently taking Ocrevus. Tolerating Ocrevus without difficulty. Has had two falls since last visit, did have bruising with falls. Has had LBP, has been occurring for the past two months intermittently. Describes pain as burning and will run down legs. Pain is worse when standing. Is currently finishing medrol dose pack, which has been helping. 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 Is still pursuing disability- has an senior attorney. Reports BLE spasms. Is taking Baclofen 10mg QHS. Does endorse adequate water intake. Mood: Not bad Spasticity: See HPI Bladder: urgency, incontinence- more at night. Wears pad Bowel: Normal Pain related to today's visit:reviewed on nursing intake documentation Fatigue: Tolerable Sleep: Ok, naps occasionally Memory/Concentration: Losing train of thought Neuro-QoL Functions (higher=better functioning) Flowsheet [facility] Office Visit from 09/02/2022 in [facility] Appointment from 01/31/[address] [facility] from 08/03/2021 in [facility] Upper Extremity Domain T Score 39 57 57 Lower Extremity Domain T Score 44 50 49 Cognitive Function Domain T Score 44 43 50 Positive Affect Well Being T Score -- -- -- Ability To Participate In Social Roles T Score 45 52 41 Satisfaction With Social Roles T Score 40 42 36 Neuro-QoL Symptoms (higher=worse symptoms) Flowsheet [facility] Office Visit from 09/02/2022 in [facility] Appointment from 01/31/2022 in [facility] from 08/03/2021 in [facility] Sleep Domain T Score 60 59 61 Fatigue Domain T Score 71 60 69 Anxiety Domain T Score 50 44 44 Depression Domain T Score 50 53 54 Stigma Domain T Score 50 53 54 Emotional Behavior Dyscontrol T Score -- -- -- has a past medical history of Multiple sclerosis (HCC), Myopia, and Wears glasses. has a current medication list which includes the following prescription(s): methylprednisolone, baclofen, aripiprazole, amphetamine-dextroamphetami ne, cholecalciferol (vitamin d3), ferrous sulfate, norgestimate-ethinyl estradiol, and levothyroxine. EXAM: LMP 09/02/2022 (Exact Date) Multiple Sclerosis Performance Test Flowsheet [facility] Office Visit from 12/04/2020 in [facility] Office Visit from 10/05/2017 in [facility] Processing Speed Total Number Correct 59 70 Low-contrast letter acuity test-2.5 percent opacity 34 36 Low-contrast letter acuity test-100 percent opacity 59 59 Dominant hand -- -- MDT Left Hand Time 21.88 20.98 MDT Right Hand Time 20.13 19.06 Walking Speed Test (25 feet) 3.85 4.97 General Appearance: w (more content not included)... Normal [facility] CBC W Auto Differential pane l (Bld)on 07-12-2023 Basophils (Bld) [#/Vol] 0.03 10*3/uL Normal <0.11 [facility] Comment on above: Order Comment: Speci men Type: BLOOD SPECIMEN Ordering Facility: [facility] Address: [address] [place] [address] Performed By: #### 5 7021-8 #### [facility] CLIA [id number] [address] [place] [address] 53421 Basophils/100 WBC (Bld) 0.3 % Normal [facility] Comment on above: Order Comment: Speci men Type: BLOOD SPECIMEN Ordering Facility: [facility] Address: [address] [place] [address] Performed By: #### 5 7021-8 #### [facility] CLIA [id number] [address] [place] [address] 53752 Differential cell count method Nom (Bld) Auto Normal [facility] Comment on above: Order Comment: Speci men Type: BLOOD SPECIMEN Ordering Facility: [facility] Address: [address] [place] [address] Performed By: #### 5 7021-8 #### [facility] CLIA [id number] [address] [place] [address] 53115 Eosinophils (Bld) [#/Vol] 0.16 10*3/uL Normal <0.46 [facility] Comment on above: Order Comment: Speci men Type: BLOOD SPECIMEN Ordering Facility: [facility] Address: [address] [place] [address] Performed By: #### 5 7021-8 #### [facility] CLIA [id number] [address] [place] [address] 57130 Eosinophils/100 WBC (Bld) 1.8 % Normal [facility] Comment on above: Order Comment: Speci men Type: BLOOD SPECIMEN Ordering Facility: [facility] Address: [address] [place] [address] Performed By: #### 5 7021-8 #### [facility] CLIA [id number] [address] [place] [address] 23595 Erythrocyte distribution width (RBC) [Ratio] 12.9 % Normal 11.5-15.0 [facility] Comment on above: Order Comment: Speci men Type: BLOOD SPECIMEN Ordering Facility: [facility] Address: [address] [place], [place] [address], [place] [address] Performed By: #### 5 7021-8 #### [facility] CLIA [id number] [address] [place] [address] 73206 Hematocrit (Bld) [Volume fraction] 41.2 % Normal 36.0-46.0 [facility] Comment on above: Order Comment: Speci men Type: BLOOD SPECIMEN Ordering Facility: [facility] Address: [address] [place] [address] Performed By: #### 5 7021-8 #### [facility] CLIA [id number] [address] [place] [address] 50906 Hemoglobin (Bld) [Mass/Vol] 13.6 g/dL Normal 11.5-15.5 [facility] Comment on above: Order Comment: Speci men Type: BLOOD SPECIMEN Ordering Facility: [facility] Address: [address] [place] [address] Performed By: #### 5 7021-8 #### [facility] CLIA [id number] [address] [place] [address] 72603 Immature granulocytes (Bld) [#/Vol] 0.04 10*3/uL Normal <0.10 [facility] Comment on above: Order Comment: Speci men Type: BLOOD SPECIMEN Ordering Facility: [facility] Address: [address] [place] [address] Performed By: #### 5 7021-8 #### [facility] CLIA [id number] [address] [place] [address] 25018 Immature granulocytes/100 WBC (Bld) 0.4 % Normal [facility] Comment on above: Order Comment: Speci men Type: BLOOD SPECIMEN Ordering Facility: [facility] Address: [address] [place] [address] Performed By: #### 5 7021-8 #### [facility] CLIA [id number] [address] [place] [address] 78130 Lymphocytes (Bld) [#/Vol] 1.32 10*3/uL Normal 1.00-4.00 [facility] Comment on above: Order Comment: Speci men Type: BLOOD SPECIMEN Ordering Facility: [facility] Address: [address] [place] [address] Performed By: #### 5 7021-8 #### [facility] CLIA [id number] [address] [place] [address] 82109 Lymphocytes/100 WBC (Bld) 14.6 % Normal [facility] Comment on above: Order Comment: Speci men Type: BLOOD SPECIMEN Ordering Facility: [facility] Address: [address] [place] [address] Performed By: #### 5 7021-8 #### [facility] CLIA [id number] [address] [place] [address] 78288 MCH (RBC) [Entitic mass] 29.2 pg Normal 26.0-34.0 [facility] Comment on above: Order Comment: Speci men Type: BLOOD SPECIMEN Ordering Facility: [facility] Address: [address] [place] [address] Performed By: #### 5 7021-8 #### [facility] CLIA [id number] [address] [place] [address] 12216 MCHC (RBC) [Mass/Vol] 33.0 g/dL Normal 30.5-36.0 [facility] Comment on above: Order Comment: Speci men Type: BLOOD SPECIMEN Ordering Facility: [facility] Address: [address] [place] [address] Performed By: #### 5 7021-8 #### [facility] CLIA [id number] [address] [place] [address] 56321 MCV (RBC) [Entitic vol] 88.4 fL Normal 80.0-100.0 [facility] Comment on above: Order Comment: Speci men Type: BLOOD SPECIMEN Ordering Facility: [facility] Address: [address] [place] [address] Performed By: #### 5 7021-8 #### [facility] CLIA [id number] [address] [place] [address] 45457 Monocytes (Bld) [#/Vol] 0.48 10*3/uL Normal <0.87 [facility] Comment on above: Order Comment: Speci men Type: BLOOD SPECIMEN Ordering Facility: [facility] Address: [address] [place] [address] Performed By: #### 5 7021-8 #### [facility] CLIA [id number] [address] [place] [address] 72528 Monocytes/100 WBC (Bld) 5.3 % Normal [facility] Comment on above: Order Comment: Speci men Type: BLOOD SPECIMEN Ordering Facility: [facility] Address: [address] [place] [address] Performed By: #### 5 7021-8 #### [facility] CLIA [id number] [address] [place] [address] 00787 Neutrophils (Bld) [#/Vol] 7.03 10*3/uL Normal 1.45-7.50 [facility] Comment on above: Order Comment: Speci men Type: BLOOD SPECIMEN Ordering Facility: [facility] Address: [address] [place] [address] Performed By: #### 5 7021-8 #### [facility] CLIA [id number] [address] [place] [address] 65238 Neutrophils/100 WBC (Bld) 77.6 % Normal [facility] Comment on above: Order Comment: Speci men Type: BLOOD SPECIMEN Ordering Facility: [facility] Address: [address] [place] [address] Performed By: #### 5 7021-8 #### [facility] CLIA [id number] [address] [place] [address] 79515 Nucleated RBC (Bld) [#/Vol] 10*3/uL Normal <0.01 [facility] Comment on above: Order Comment: Speci men Type: BLOOD SPECIMEN Ordering Facility: [facility] Address: [address] [place] [address] Performed By: #### 5 7021-8 #### [facility] CLIA [id number] [address] [place] [address] Nucleated RBC/100 WBC (Bld) [Ratio] 0.0 /100 WBC Normal [facility] Comment on above: Order Comment: Speci men Type: BLOOD SPECIMEN Ordering Facility: [facility] Address: [address] [place] [address] Performed By: #### 5 7021-8 #### [facility] CLIA [id number] [address] [place] [address] 06325 Platelet mean volume (Bld) [Entitic vol] 9.4 fL Normal 9.0-12.7 [facility] Comment on above: Order Comment: Speci men Type: BLOOD SPECIMEN Ordering Facility: [facility] Address: [address] [place] [address] Performed By: #### 5 7021-8 #### [facility] CLIA [id number] [address] [place] [address] 22827 Platelets (Bld) [#/Vol] 330 10*3/uL Normal 150-400 [facility] Comment on above: Order Comment: Speci men Type: BLOOD SPECIMEN Ordering Facility: [facility] Address: [address] [place] [address] Performed By: #### 5 7021-8 #### [facility] CLIA [id number] [address] [place] [address] 16696 RBC (Bld) [#/Vol] 4.66 10*6/uL Normal 3.90-5.20 [facility] Comment on above: Order Comment: Speci men Type: BLOOD SPECIMEN Ordering Facility: [facility] Address: [address] [place] [address] Performed By: #### 5 7021-8 #### [facility] CLIA [id number] [address] [place] [address] 20977 WBC (Bld) [#/Vol] 9.06 10*3/uL Normal 3.70-11.00 [facility] Comment on above: Order Comment: Speci men Type: BLOOD SPECIMEN Ordering Facility: [facility] Address: [address] [place] [address] Performed By: #### 5 7021-8 #### [facility] CLIA [id number] [address] [place] [address] CD19 ABSOLUTE COUNTon 2022 CD3-CD19+ cells (Bld) [#/Vol] 0 cells/uL Low 75-660 [facility] Comment on above: Order Comment: Speci men Type: BLOOD SPECIMEN Ordering Facility: [facility] Address: [address] [place] [address] Performed By: #### A BS19 #### [facility] CLIA [id number] [address] [place] [address] [place] CD3-CD19+ cells/100 cells (Bld) 0 % Low 5-22 [facility] Comment on above: Order Comment: Speci men Type: BLOOD SPECIMEN Ordering Facility: [facility] Address: [address] [place] [address] Performed By: #### A BS19 #### [facility] CLIA [id number] [address] [place] [address] [place] Lymphocytes/100 WBC FC (Bld) Normal [facility] Comment on above: Order Comment: Speci men Type: BLOOD SPECIMEN Ordering Facility: [facility] Address: [address] [place] [address] Performed By: #### A BS19 #### [facility] CLIA [id number] [address] [place] [address] [place] Comprehensive metabolic 2000 panelon 07-12-2023 Albumin [Mass/Vol] 3.8 g/dL Low 3.9-4.9 [facility] Comment on above: Order Comment: Speci men Type: BLOOD SPECIMEN Ordering Facility: [facility] Address: [address] [place] [address] Performed By: #### 2 4323-8 #### [facility] CLIA [id number] [address] [place] [address] ALP [Catalytic activity/Vol] 91 U/L Normal 34-123 [facility] Comment on above: Order Comment: Speci men Type: BLOOD SPECIMEN Ordering Facility: [facility] Address: [address] [place] [address] Performed By: #### 2 4323-8 #### [facility] CLIA [id number] [address] [place] [address] ALT [Catalytic activity/Vol] 25 U/L Normal 7-38 [facility] Comment on above: Order Comment: Speci men Type: BLOOD SPECIMEN Ordering Facility: [facility] Address: [address] [place] [address] Performed By: #### 2 4323-8 #### [facility] CLIA [id number] [address] [place] [address] 04888 Anion gap [Moles/Vol] 6 mmol/L Low 9-18 [facility] Comment on above: Order Comment: Speci men Type: BLOOD SPECIMEN Ordering Facility: [facility] Address: [address] [place] [address] Performed By: #### 2 4323-8 #### [facility] CLIA [id number] [address] [place] [address] 80894 AST [Catalytic activity/Vol] 20 U/L Normal 13-35 [facility] Comment on above: Order Comment: Speci men Type: BLOOD SPECIMEN Ordering Facility: [facility] Address: [address] [place] [address] Performed By: #### 2 4323-8 #### [facility] CLIA [id number] [address] [place] [address] 53748 Bilirubin [Mass/Vol] 0.2 mg/dL Normal 0.2-1.3 [facility] Comment on above: Order Comment: Speci men Type: BLOOD SPECIMEN Ordering Facility: [facility] Address: [address] [place] [address] Performed By: #### 2 4323-8 #### [facility] CLIA [id number] [address] [place] [address] Calcium [Mass/Vol] 9.3 mg/dL Normal 8.5-10.2 [facility] Comment on above: Order Comment: Speci men Type: BLOOD SPECIMEN Ordering Facility: [facility] Address: [address] [place] [address] Performed By: #### 2 4323-8 #### [facility] CLIA [id number] [address] [place] [address] 23151 Chloride [Moles/Vol] 106 mmol/L High 97-105 [facility] Comment on above: Order Comment: Speci men Type: BLOOD SPECIMEN Ordering Facility: [facility] Address: [address] [place] [address] Performed By: #### 2 4323-8 #### [facility] CLIA [id number] [address] [place] [address] 57479 CO2 [Moles/Vol] 29 mmol/L Normal 22-30 [facility] Comment on above: Order Comment: Speci men Type: BLOOD SPECIMEN Ordering Facility: [facility] Address: [address] [place] [address] Performed By: #### 2 4323-8 #### [facility] CLIA [id number] [address] [place] [address] 76518 Creatinine [Mass/Vol] 0.71 mg/dL Normal 0.58-0.96 [facility] Comment on above: Order Comment: Speci men Type: BLOOD SPECIMEN Ordering Facility: [facility] Address: [address] [place] [address] Performed By: #### 2 4323-8 #### [facility] CLIA [id number] [address] [place] [address] 69496 Creatinine and Glomerular filtration rate.predicted panel (S/P/Bld) 121 mL/min/1.73m??? Normal >=60 [facility] Comment on above: Order Comment: Speci men Type: BLOOD SPECIMEN Ordering Facility: [facility] Address: [address] [place] [address] Result Comment: Kamala mated Glomerular Filtration Rate (eGFR) is calculated using the 2020 CKD-EPI creatinine equation. This equation utilizes serum creatinine, sex, and age as parameters. The creatinine assay has traceable calibration to isotope dilution-mass spectrometry. Refer to KDIGO guidelines for clinical interpretation. In patients with unstable renal function, e.g. those with acute kidney injury, the eGFR may not accurately reflect actual GFR. Performed By: #### 2 4323-8 #### [facility] CLIA [id number] [address] [place] [address] 97334 Glucose [Mass/Vol] 107 mg/dL High 74-99 [facility] Comment on above: Order Comment: Levon rangel Type: BLOOD SPECIMEN Ordering Facility: [facility] Address: [address] [place] [id number] Result Comment: The [place] [employer] (ADA) provides guidance for cutoff values for fasting glucose and random glucose. The ADA defines fasting as no caloric intake for at least 8 hours. Fasting plasma glucose results between 100 to 125 mg/dL indicate increased risk for diabetes (prediabetes). Fasting plasma glucose results greater than or equal to 126 mg/dL meet the criteria for diagnosis of diabetes. In the absence of unequivocal hyperglycemia, results should be confirmed by repeat testing. In a patient with classic symptoms of hyperglycemia or hyperglycemic crisis, random plasma glucose results greater than or equal to 200 mg/dL meet the criteria for diagnosis of diabetes. Reference: Standards of Medical Care in Diabetes 2016, [place] [employer]. Diabetes Care. 2016.39(Suppl 1). Performed By: #### 2 4323-8 #### [facility] CLIA [id number] [address] [place] [address] 98387 Potassium [Moles/Vol] 4.1 mmol/L Normal 3.7-5.1 [facility] Comment on above: Order Comment: Levon rangel Type: BLOOD SPECIMEN Ordering Facility: [facility] Address: [address] [place] [address] Performed By: #### 2 4323-8 #### [facility] CLIA [id number] [address] [place] [address] 34002 Protein [Mass/Vol] 6.1 g/dL Low 6.3-8.0 [facility] Comment on above: Order Comment: Speci men Type: BLOOD SPECIMEN Ordering Facility: [facility] Address: [address] [place] [address] Performed By: #### 2 4323-8 #### [facility] CLIA [id number] [address] [place] [address] Sodium [Moles/Vol] 141 mmol/L Normal 136-144 [facility] Comment on above: Order Comment: Speci men Type: BLOOD SPECIMEN Ordering Facility: [facility] Address: [address] [place] [address] Performed By: #### 2 4323-8 #### [facility] CLIA [id number] [address] [place] [address] 84397 Urea nitrogen [Mass/Vol] 16 mg/dL Normal 7-21 [facility] Comment on above: Order Comment: Speci men Type: BLOOD SPECIMEN Ordering Facility: [facility] Address: [address] [place] [address] Performed By: #### 2 4323-8 #### [facility] CLIA [id number] [address] [place] [address] 65260 IgG SerPl-mCncon 07-12-2023 IgG [Mass/Vol] 444 mg/dL Low 700-1600 [facility] Comment on above: Order Comment: Speci men Type: BLOOD SPECIMEN Ordering Facility: [facility] Address: [address] [place] [address] Performed By: #### 2 465-3 #### [facility] CLIA [id number] [address] [facility] [address] [address] [place] Auth for Release of Medical Recordson 02-23-2023 Auth for Release of Medical Records [id number]:127 Normal [facility] COVID + FLU Quick Testingon 01-28-2023 SARS-CoV-2 (COVID-19) RNA JENNA+probe Ql (Unsp spec) Positive [facility] Other COVID + FLU Quick Testing Negative [facility] Other MRI BRAIN WO/W IVCONon 01-23 MRI BRAIN WO/W IVCON * * *Final Report* * * DATE OF EXAM: Jan 23 2023 2:57PM [facility] 0295 - MRI BRAIN WO/W IVCON / PROCEDURE REASON: multiple diagnoses * * * * Physician Interpretation * * * * EXAMINATION: MRI BRAIN WO/W IVCON, MRI CERVICAL SPINE WO/W IVCON HISTORY: Multiple sclerosis. Routine follow-up TECHNIQUE: Brain MRI with demyelinating disease protocol with and without gadolinium. Routine cervical spine protocol with and without gadolinium. MQ: [id number] Contrast: 20 mL Dotarem IV COMPARISON: MRI brain 2021, MRI cervical spine 05/28/2020 RESULT: MR BRAIN: Parenchymal Findings: There are multiple foci of hyperintensity on FLAIR and T2 within the white matter, compatible with the clinical diagnosis of multiple sclerosis. New T2 Lesions: None Interval Improvement: None. New Enhancing Lesions: None T2 [place] of Disease: Mild. Parenchymal Volume Loss: None. Other Significant Findings/Site(s) of New T2 Lesions(s): None. Other findings: Large left mastoid and middle ear cavity effusion, and small right mastoid effusion, new from prior MRI of 2021. Patchy associated enhancement, left more than right. Opacification of the left external auditory canal, likely with soft tissue thickening and enhancement, and partially with fluid. Mild mucosal thickening in the paranasal sinuses is overall slightly increased from prior as well. MR CERVICAL: Counting reference: Craniocervical junction. Anatomic Variants: None. Alignment: Straightening of the expected cervical lordosis, likely positional. Craniocervical Junction: Craniocervical junction is normal. Cord Findings: Patchy foci of hyperintensity are noted in the cervical and visualized upper thoracic cord on the T2, IR and axial gradient echo images compatible with the history of multiple sclerosis. Cord T2 Plaque [place]: Mild to moderate New T2 Lesions: None Interval Cord Improvement: None New Cord Enhancing Lesions: None Cord Volume Loss: Normal morphology for age Bone marrow signal/fracture: Intraosseous hemangioma in the T4 vertebral body. No evidence of pathologic marrow infiltration. No evidence of prior fracture. Cervical soft tissues: The paraspinal soft tissues are within normal limits. Cervical Canal and foramina: No significant canal or foraminal stenosis in the visualized spine. IMPRESSION: Multiple intracranial white matter lesions compatible with multiple sclerosis. No new T2 lesions and no new enhancing lesions. No significant parenchymal volume loss. Other Significant Intracranial Findings: Large left and small right mastoid effusions, new from prior, with associated patchy enhancement. There is also new/increased soft tissue thickening and fluid in the left external auditory canal. Findings raise suspicion for infectious/inflammatory etiology, such as otitis media/mastoiditis, possibly with component of external otitis or reactive change. Correlate with history/symptomatology and exam. Scattered intramedullary lesions compatible with the clinical history of multiple sclerosis. No new T2 intramedullary lesions and no new enhancing intramedullary lesions. No significant volume loss of the upper spinal cord for age. Other Significant Cervical Spine Findings: No significant cervical canal or foraminal stenosis. Cervical Anatomic Variant: None. Assume 7 cervical vertebrae with counting from the craniocervical junction. *Note: The definition of new T2 Lesions includes both new and enlarging plaques on T2-weighted FLAIR images (new lesions greater than or equal to 5mm3 or an increase in diameter of an existing lesion by greater than or equal to 2mm). COMMUNICATION: Communicated with YOLY BLANCAS on 01/23/2023 3:40 PM via [employer] staff message. Carpenter Ship: MYRTLE Transcribe Date/Time: Jan 23 2023 3:06P Dictated by : DAPHNE LANDIS MD This examination was interpreted and the report reviewed and electronically signed by: RODDY LOVE MD on Jan 23 2023 3:41PM EST [id number] Normal [facility] MRI CERVICAL SPINE WO/W IVCO Non 01-23-2023 MRI CERVICAL SPINE WO/W IVCON * * *Final Report* * * DATE OF EXAM: Jan 23 2023 2:57PM [facility] [id number] - MRI CERVICAL SPINE WO/W IVCON / PROCEDURE REASON: multiple diagnoses * * * * Physician Interpretation * * * * EXAMINATION: MRI BRAIN WO/W IVCON, MRI CERVICAL SPINE WO/W IVCON HISTORY: Multiple sclerosis. Routine follow-up TECHNIQUE: Brain MRI with demyelinating disease protocol with and without gadolinium. Routine cervical spine protocol with and without gadolinium. MQ: [id number] Contrast: 20 mL Dotarem IV COMPARISON: MRI brain 2021, MRI cervical spine 05/28/2020 RESULT: MR BRAIN: Parenchymal Findings: There are multiple foci of hyperintensity on FLAIR and T2 within the white matter, compatible with the clinical diagnosis of multiple sclerosis. New T2 Lesions: None Interval Improvement: None. New Enhancing Lesions: None T2 [place] Disease: Mild. Parenchymal Volume Loss: None. Other Significant Findings/Site(s) of New T2 Lesions(s): None. Other findings: Large left mastoid and middle ear cavity effusion, and small right mastoid effusion, new from prior MRI of 2021. Patchy associated enhancement, left more than right. Opacification of the left external auditory canal, likely with soft tissue thickening and enhancement, and partially with fluid. Mild mucosal thickening in the paranasal sinuses is overall slightly increased from prior as well. MR CERVICAL: Counting reference: Craniocervical junction. Anatomic Variants: None. Alignment: Straightening of the expected cervical lordosis, likely positional. Craniocervical Junction: Craniocervical junction is normal. Cord Findings: Patchy foci of hyperintensity are noted in the cervical and visualized upper thoracic cord on the T2, IR and axial gradient echo images compatible with the history of multiple sclerosis. Cord T2 Plaque [place]: Mild to moderate New T2 Lesions: None Interval Cord Improvement: None New Cord Enhancing Lesions: None Cord Volume Loss: Normal morphology for age Bone marrow signal/fracture: Intraosseous hemangioma in the T4 vertebral body. No evidence of pathologic marrow infiltration. No evidence of prior fracture. Cervical soft tissues: The paraspinal soft tissues are within normal limits. Cervical Canal and foramina: No significant canal or foraminal stenosis in the visualized spine. IMPRESSION: Multiple intracranial white matter lesions compatible with multiple sclerosis. No new T2 lesions and no new enhancing lesions. No significant parenchymal volume loss. Other Significant Intracranial Findings: Large left and small right mastoid effusions, new from prior, with associated patchy enhancement. There is also new/increased soft tissue thickening and fluid in the left external auditory canal. Findings raise suspicion for infectious/inflammatory etiology, such as otitis media/mastoiditis, possibly with component of external otitis or reactive change. Correlate with history/symptomatology and exam. Scattered intramedullary lesions compatible with the clinical history of multiple sclerosis. No new T2 intramedullary lesions and no new enhancing intramedullary lesions. No significant volume loss of the upper spinal cord for age. Other Significant Cervical Spine Findings: No significant cervical canal or foraminal stenosis. Cervical Anatomic Variant: None. Assume 7 cervical vertebrae with counting from the craniocervical junction. *Note: The definition of new T2 Lesions includes both new and enlarging plaques on T2-weighted FLAIR images (new lesions greater than or equal to 5mm3 or an increase in diameter of an existing lesion by greater than or equal to 2mm). COMMUNICATION: Communicated with YOLY BLANCAS on 01/23/2023 3:40 PM via [employer] staff message. Carpenter Ship: [id number] Transcribe Date/Time: Jan 23 2023 3:06P Dictated by : DAPHNE LANDIS MD This examination was interpreted and the report reviewed and electronically signed by: RODDY LOVE MD on Jan 23 2023 3:41PM EST [id number] Normal [facility] No Panel Informationon 01-23 Brain Enhancing Lesions None [facility] Brain Interval Improvement None [facility] Brain New T2 Lesions None [facility] Brain Other Significant MRI Findings None. [facility] Brain Parenchymal Volume Loss None [facility] Brain T2 [place] Mild [facility] Cervical spine enhancing lesions None [facility] Cervical Spine New T2 Lesions None [facility] Cervical Spine T2 [place] Mild to moderate [facility] COVID + FLU Quick Testingon 11-20-2022 SARS-CoV-2 (COVID-19) RNA JENNA+probe Ql (Unsp spec) Negative Strap [facility] [employer] Other COVID + FLU Quick Testing Negative [facility] Other CBC W Auto Differential pane l (Bld)on 09-02-2022 Basophils (Bld) [#/Vol] 0.04 10*3/uL <0.11 k/uL [facility] Basophils/100 WBC (Bld) 0.4 % [facility] Differential cell count method Nom (Bld) Auto [facility] Eosinophils (Bld) [#/Vol] 0.08 10*3/uL <0.46 k/uL [facility] Eosinophils/100 WBC (Bld) 0.8 % [facility] Erythrocyte distribution width (RBC) [Ratio] 12.7 % 11.5 - 15.0 % [facility] Hematocrit (Bld) [Volume fraction] 44.9 % 36.0 - 46.0 % [facility] Hemoglobin (Bld) [Mass/Vol] 14.5 g/dL 11.5 - 15.5 g/dL [facility] Immature granulocytes (Bld) [#/Vol] 0.04 10*3/uL <0.10 k/uL [facility] Immature granulocytes/100 WBC (Bld) 0.4 % [facility] Lymphocytes (Bld) [#/Vol] 2.93 10*3/uL 1.00 - 4.00 k/uL [facility] Lymphocytes/100 WBC (Bld) 28.9 % [facility] MCH (RBC) [Entitic mass] 28.7 pg 26.0 - 34.0 pg [facility] MCHC (RBC) [Mass/Vol] 32.3 g/dL 30.5 - 36.0 g/dL [facility] MCV (RBC) [Entitic vol] 88.9 fL 80.0 - 100.0 fL [facility] Monocytes (Bld) [#/Vol] 0.69 10*3/uL <0.87 k/uL [facility] Monocytes/100 WBC (Bld) 6.8 % [facility] Neutrophils (Bld) [#/Vol] 6.35 10*3/uL 1.45 - 7.50 k/uL [facility] Neutrophils/100 WBC (Bld) 62.7 % [facility] Nucleated RBC (Bld) [#/Vol] <0.01 k/uL [facility] Nucleated RBC/100 WBC (Bld) [Ratio] 0.0 /100 WBC [facility] Platelet mean volume (Bld) [Entitic vol] 9.3 fL 9.0 - 12.7 fL [facility] Platelets (Bld) [#/Vol] 418 10*3/uL High 150 - 400 k/uL [facility] RBC (Bld) [#/Vol] 5.05 10*6/uL 3.90 - 5.20 m/uL [facility] WBC (Bld) [#/Vol] 10.13 10*3/uL 3.70 - 11.00 k/uL [facility] Comprehensive metabolic 2000 panelon 09-02-2022 Albumin [Mass/Vol] 4.0 g/dL 3.9 - 4.9 g/dL [facility] ALP [Catalytic activity/Vol] 81 U/L 34 - 123 U/L [facility] ALT [Catalytic activity/Vol] 19 U/L 7 - 38 U/L [facility] Anion gap [Moles/Vol] 11 mmol/L 9 - 18 mmol/L [facility] AST [Catalytic activity/Vol] 18 U/L 13 - 35 U/L [facility] Bilirubin [Mass/Vol] Low 0.2 - 1 .3 mg/dL [facility] Calcium [Mass/Vol] 9.6 mg/dL 8.5 - 10. 2 mg/dL [facility] Chloride [Moles/Vol] 101 mmol/L 97 - 10 5 mmol/L [facility] CO2 [Moles/Vol] 27 mmol/L 22 - 30 mmol/L [facility] Creatinine [Mass/Vol] 0.74 mg/dL 0.58 - 0.96 mg/dL [facility] Estimated Glomerular Filtration Rate 116 mL/min/1.73m >=60 mL/min/1.7 3m [facility] Glucose [Mass/Vol] 92 mg/dL 74 - 99 mg/dL [facility] Potassium [Moles/Vol] 4.3 mmol/L 3.7 - 5.1 mmol/L [facility] Protein [Mass/Vol] 6.8 g/dL 6.3 - 8.0 g/dL [facility] Sodium [Moles/Vol] 139 mmol/L 136 - 144 mmol/L [facility] Urea nitrogen [Mass/Vol] 11 mg/dL 7 - 21 mg/dL [facility] VITAMIN D 25 HYDROXYon 09-02 25-hydroxyvitamin D3 [Mass/Vol] 53.5 ng/mL 31.0 - 80.0 ng/mL [facility] Quick Strepon 07-27-2022 S. pyogenes Org specific cx Ql (Throat) Negative [facility] Other Quick Strep [facility] Other General Surgery Office/Clini c Noteon 07-05-2022 General Surgery Office/Clinic Note Chief Complaint post operative follow up HPI Staff 13 day post operative follow up post colonoscopy with ileum and sigmoid biopsies. Continues with loose stools. Rectal bleeding has resolved. History of Present Illness s/p colonoscopy due to rectal bleeding, loose stools; no further rectal bleeding; colonoscopy normal, biopsies wnl; Review of Systems ROS - Provider Constitutional: no fever, no sweats, no weight loss. Eyes: no glasses, no blurred vision, no visual loss. ENMT: no dentures, no hoarseness, no swallowing difficulties, no hearing loss, no ear infection(s), no nose bleeds. Cardiovascular: normal blood pressure, no chest pain, regular heartbeat, no heart murmur. Respiratory: no shortness of breath, no cough, no asthma, no wheezing. Gastrointestinal: no nausea, no vomiting, yes diarrhea, no constipation, no blood in stool, no change in bowel habits, no abdominal pain, no hepatitis. Genitourinary: no kidney stones, no urine infection, no dysuria. Musculoskeletal: no pain, no weakness. Skin: no changing moles, no rash, no skin lumps. Neurologic: no seizures, no epilepsy, no headache. Psychiatric: no emotional or psychiatric problem. Heme/Lymph: no bleeding problems, no anemia, no blood clots, no transfusions. Allergy/Immunologic: no swollen lymph nodes/glands, no IV drug abuse. Other: Additional ROS info: Except as noted in the above Review of Systems and in the History of Present Illness, all other systems have been reviewed and are negative or noncontributory. Assessment/Plan 1. IBS (irritable bowel syndrome) (K58.9: Irritable bowel syndrome without diarrhea) likely IBS, exacerbated by cholecystectomy. recommend high fiber diet and daily fiber supplement; trial of questran; call with problems/questions. Ordered: cholestyramine, = 1 packet(s), Oral, BID, # 60 EA, Refills(s) 3, Pharmacy: [facility]/pharmacy #[id number], 165, cm, 05/24/22 14:22:00 EDT, Height/Length Dosing, 106, kg, 05/24/22 14:22:00 EDT, Weight Dosing 2. Change in bowel habits (R19.4: Change in bowel habit) see # 1 Ordered: cholestyramine, = 1 packet(s), Oral, BID, # 60 EA, Refills(s) 3, Pharmacy: [facility]/pharmacy #[id number], 165, cm, 05/24/22 14:22:00 EDT, Height/Length Dosing, 106, kg, 05/24/22 14:22:00 EDT, Weight Dosing Follow-up No qualifying data available Problem List/Past Medical History Ongoing Abdominal pain, periumbilical Abdominal pain, right lower quadrant Acne vulgaris Bipolar disorder BMI 38.0-38.9,adult Change in bowel habits JEFF (generalized anxiety disorder) Hypothyroidism IBS (irritable bowel syndrome) Iron deficiency anemia Irritable bowel syndrome with both constipation and diarrhea Migraines MS (multiple sclerosis) Obesity PCOS (polycystic ovarian syndrome) Proteinuria Rectal bleeding Vapes nicotine containing substance Vitamin D deficiency Historical No qualifying data Procedure/Surgical History Colonoscopy (06/22/2022), EGD - Esophagogastroduodenoscopy (06/22/2022), Cholecystectomy, EGD - Esophagogastroduodenoscopy, Removal of pilonidal cyst, Tonsillectomy. Medications Adderall 20 mg oral tablet, 20 mg= 1 tab(s), Oral, Noon Adderall XR 30 mg Cap-ER aripiprazole 10 mg Tab dicyclomine 20 mg Tab, 20 mg= 1 tab(s), Oral, QID, PRN ferrous sulfate 325 mg Tab levothyroxine 75 mcg (0.075 mg) Tab Ocrevus 300 mg/10 mL intravenous solution, IV, q6mo Questran 4 g/9 g oral powder, 1 packet(s), Oral, BID, 3 refills Tri-Sprintec 35 mcg Tab, 1 tab(s), Oral, Daily venlafaxine 150 mg Cap-ER Vitamin D3 2000 intl units oral Tab, 50 mcg, Oral, Daily Allergies Avonex (SOB - Shortness of breath) Copaxone (Hives) glatiramer (Unknown) interferon beta-1a (Unknown) Social History Alcohol - Denies Alcohol Use, 10/14/2019 Substance Abuse Current, Marijuana, 3-5 times per week, 05/24/2022 Tobacco - Denies Tobacco Use, 10/14/2019 Never (less than 100 in lifetime) Tobacco Use:. Smokeless tobacco user within last 30 days, Current vaping or e-cigarette use Smokeless Tobacco Use:. Vaping, Started age 18.0 Years. Yes, 05/24/2022 Family History COPD: Mother. Crohn's disease: Mother. Diabetes mellitus type 2: Father. Hypertension: Mother. Immunizations Vaccine Date Status Comments SARS-CoV-2 (COVID-19) mRNA BNT-162b2 vax 04/24/2021 Recorded 2022-05-24: TPVAL SARS-CoV-2 (COVID-19) mRNA BNT-162b2 vax 04/01/2021 Recorded 2022-05-24: TPVAL Normal [facility] Comment on above: Result Comment: Elec tronically Signed By: MATTHEW BENÍTEZ, Yusuf Jefferson\Date and Time Signed: 07/05/22 15:06 EST Pathology Noteon 06-24-2022 Pathology Note [id number]:127 Normal [facility] Outside Colonoscopyon 2021 Outside Colonoscopy [id number]:127 Normal [facility] PREG HCG QUALon 06-22-2022 , QUAL Negative Normal NEGATIVE [facility] Comment on above: Performed By: #### P REG #### [facility] [address] [place] [address] Dr. Marty Olson Lab Reportson 06-20-2022 Lab Reports [id number]#[id number]:127 Normal [facility] Covid-19 PCR (CVDTBH)on 05-25 SARS-CoV-2 (COVID-19) RNA JENNA+probe Ql (Unsp spec) Not detected Normal NOT DETECTED [facility] Comment on above: Result Comment: When diagnostic testing is negative, the possibility of a false negative should be considered in the context of a patient's recent exposures and the presence of clinical signs and symptoms consistent with SARS-CoV-2. This test is not yet approved or cleared by the [place] FDA. When there are no FDA-approved or cleared tests available, and other criteria are met, FDA can make tests available under an emergency access mechanism called an Emergency Use Authorization (EUA). The EUA for this test is supported by the [employer] of Health and Human Service's declaration that circumstances exist to justify the emergency use of in vitro diagnostics for the detection and/or diagnosis of the virus that causes COVID-19. This EUA will remain in effect for the duration of the COVID-19 declaration justifying emergency of IVDs, unless it is terminated or revoked by the FDA (after which the test may no longer be used). Performed By: #### C [facility] #### [facility] [address] [address] [address] Marty Olson Consent for Procedure/Surger yon 05-25-2022 Consent for Procedure/Surgery [id number]:127 Normal [facility] Ambulatory Visit Summaryon 1 07-24-2021 Ambulatory Visit Summary LURDESNATALIE BROWN John :1995 Visit Date:05/24/2022 Ambulatory Visit Instructions Your Diagnosis Vapes nicotine containing substance Rectal bleeding Change in bowel habits Your Care Team Attending Physician - MATTHEW BENÍTEZ, Yusuf Ryan Primary Care Physician - JULISSA BENÍTEZ, JAYME Referring Physician - JAYME COSTA MD This Is Your Medications List amphetamine-dextroamphetami ne (Adderall 20 mg oral tablet) amphetamine-dextroamphetami ne (Adderall XR 30 mg Cap-ER) aripiprazole (aripiprazole 10 mg Tab) cholecalciferol (Vitamin D3 2000 intl units oral Tab) dicyclomine (dicyclomine 20 mg Tab) ethinyl estradiol-norgestimate (Tri-Sprintec 35 mcg Tab) ferrous sulfate (ferrous sulfate 325 mg Tab) levothyroxine (levothyroxine 75 mcg (0.075 mg) Tab) ocrelizumab (Ocrevus 300 mg/10 mL intravenous solution) venlafaxine (venlafaxine 150 mg Cap-ER) Procedures Performed Cholecystectomy, EGD - Esophagogastroduodenoscopy, Removal of pilonidal cyst, Tonsillectomy. Discharge Vitals Heart Rate (Peripheral) 70 Respiratory Rate 16 Blood Pressure 118/80 Height 165 cm Height 65 in Weight 106 kg Weight 233.2 lb BMI 38.93 Medications What How Much When Instructions Unchanged amphetamine-dextroamphetami ne (Adderall 20 mg oral tablet) 1 Tablets By Mouth At noon Unchanged amphetamine-dextroamphetami ne (Adderall XR 30 mg Cap-ER) Unchanged aripiprazole (aripiprazole 10 mg Tab) 30 EA, TAKE 1 TABLET BY MOUTH EVERY DAY Unchanged cholecalciferol (Vitamin D3 2000 intl units oral Tab) 50 Microgram By Mouth Every day Unchanged dicyclomine (dicyclomine 20 mg Tab) 1 Tablets By Mouth 4 times a day as needed for Pain Unchanged ethinyl estradiol-norgestimate (Tri-Sprintec 35 mcg Tab) 1 Tablets By Mouth Every day Unchanged ferrous sulfate (ferrous sulfate 325 mg Tab) Unchanged levothyroxine (levothyroxine 75 mcg (0.075 mg) Tab) Unchanged ocrelizumab (Ocrevus 300 mg/ 10 mL intravenous solution) Intravenous Every 6 months Unchanged venlafaxine (venlafaxine 150 mg Cap-ER) Allergies Avonex (SOB - Shortness of breath) Copaxone (Hives) glatiramer (Unknown) interferon beta-1a (Unknown) Problems Ongoing - Any problem that you are currently receiving treatment for. Acne vulgaris Bipolar disorder BMI 38.0-38.9,adult Change in bowel habits JEFF (generalized anxiety disorder) Hypothyroidism Iron deficiency anemia Irritable bowel syndrome with both constipation and diarrhea Migraines MS (multiple sclerosis) Obesity PCOS (polycystic ovarian syndrome) Proteinuria Rectal bleeding Vapes nicotine containing substance Vitamin D deficiency Normal [facility] INSULINon 05-07-2022 Insulin 22.9 uIU/mL Normal 2.6-24.9 [facility] Comment on above: Performed By: #### I NSULIN #### [facility] [address] [place] [address] Dr. Marty Olson CBC AUTO DIFFon 05-06-2022 BASO # 0.0 103/ul Normal 0.0-0.1 [facility] Comment on above: Performed By: #### C BC #### [facility] [address] [place] [address] Dr. Marty Olson Basophils/100 WBC (Bld) 0.4 % Normal 0.2-2.0 [facility] Comment on above: Performed By: #### C BC #### [facility] [address] [place] [address] Dr. Marty Olson EO # 0.2 103/ul Normal 0.0-0.7 [facility] Comment on above: Performed By: #### C BC #### [facility] [address] [place] [address] Dr. Marty Olson Eosinophils/100 WBC (Bld) 1.9 % Normal 0.9-7.0 [facility] Comment on above: Performed By: #### C BC #### [facility] [address] [place] [address] Dr. Marty Olson Erythrocyte distribution width (RBC) [Ratio] 12.3 % Normal 11.0-15.0 [facility] Comment on above: Performed By: #### C BC #### [facility] [address] [place] [address] Dr. Marty Olson Hematocrit (Bld) [Volume fraction] 41.3 % Normal 36.0-48.0 [facility] Comment on above: Performed By: #### C BC #### [facility] [address] [place] [address] Dr. Marty Olson Hemoglobin (Bld) [Mass/Vol] 13.4 g/dL Normal 12.0-16.0 [facility] Comment on above: Performed By: #### C BC #### [facility] [address] [place] [address] Dr. Marty Olson IG # 0.03 10e3/ul Normal 0.00-0.03 [facility] Comment on above: Performed By: #### C BC #### [facility] [address] [place] [address] Dr. Marty Olson IG % 0.4 % Normal 0.0-0.5 [facility] Comment on above: Performed By: #### C BC #### [facility] [address] [place] [address] Dr. Marty Olson LYMPH # 1.7 103/ul Normal 1.2-3.8 [facility] Comment on above: Performed By: #### C BC #### [facility] [address] [place] [address] Dr. Marty Olson Lymphocytes/100 WBC (Bld) 19.4 % Critically low 20.5-60.0 [facility] Comment on above: Performed By: #### C BC #### [facility] [address] [place] [address] Dr. Marty Olson MANUAL DIFF REQ NO Normal [facility] Comment on above: Performed By: #### C BC #### [facility] [address] [place] [address] Dr. Marty Olson MCH (RBC) [Entitic mass] 29.4 pg Normal 26.7-34.0 [facility] Comment on above: Performed By: #### C BC #### [facility] [address] [place] [address] Dr. Marty Olson MCHC (RBC) [Mass/Vol] 32.4 g/dL Normal 29.9-35.2 [facility] Comment on above: Performed By: #### C BC #### [facility] [address] [place] [address] Dr. Marty Olson MCV (RBC) [Entitic vol] 90.6 fL Normal 81.0-99.0 [facility] Comment on above: Performed By: #### C BC #### [facility] [address] [place] [address] Dr. Marty Olson MONO # 0.6 103/ul Normal 0.3-0.8 [facility] Comment on above: Performed By: #### C BC #### [facility] [address] [place] [address] Dr. Marty Olson Monocytes/100 WBC (Bld) 6.6 % Normal 1.7-12.0 [facility] Comment on above: Performed By: #### C BC #### [facility] [address] [place] [address] Dr. Marty Olson NEUT # 6.1 103/ul Normal 1.4-6.5 [facility] Comment on above: Performed By: #### C BC #### [facility] [address] [place] [address] Dr. Marty Olson Neutrophils/100 WBC (Bld) 71.3 % Normal 43.0-75.0 [facility] Comment on above: Performed By: #### C BC #### [facility] [address] [address] [address] Marty Olson Platelet mean volume (Bld) [Entitic vol] 9.2 fL Critically low 9.5-13.5 [facility] Comment on above: Performed By: #### C BC #### [facility] [address] [address] [address] Marty Olson PLT 365 103/ul Normal 150-450 [facility] Comment on above: Performed By: #### C BC #### [facility] [address] [place] [address] Dr. Marty Olson RBC 4.56 106/ul Normal 4.20-5.40 [facility] Comment on above: Performed By: #### C BC #### [facility] [address] [place] [address] [address] Marty Olson WBC 8.5 103/ul Normal 4.0-11.0 [facility] Comment on above: Performed By: #### C BC #### [facility] [address] [place] [address] [address] Marty Olson FERRITINon 05-06-2022 Ferritin [Mass/Vol] 79.0 ng/mL Normal 6.2-137.0 [facility] Comment on above: Performed By: #### V ITAD, IRON, FERR, FT4 #### [facility] [address] [place] [address] [address] Marty Olson FREE T3on 05-06-2022 FREE T3 2.48 pg/mlL Normal 2.18-3.98 [facility] Comment on above: Performed By: #### T SH, LIPID, FT3, BMP, LIVER ####[facility] [address] [place] [address]Dr. Marty Olson FREE T4on 05-06-2022 Free T4 [Mass/Vol] 1.00 ng/dL Normal 0.76-1.46 [facility] [place] [facility] Comment on above: Performed By: #### V ITAD, IRON, FERR, FT4 #### [facility] [address] [place] [address] [address] Marty Olson GLYCOHEMOGLOBIN A1Con 2021 ADA RECOMMENDATION SEE BELOW Normal [facility] Comment on above: Result Comment: ADA RECOMMENDED LIMIT 4.0 - 6.0 ADA THERAPEUTIC TARGET < 7.0 ACTION SUGGESTED > 7.0 Performed By: #### A 1C #### [facility] [address] [place] [address] [address] Marty Olson Glucose [Mass/Vol] 108 mg/dL Normal [facility] Comment on above: Performed By: #### A 1C #### [facility] [address] [place] [address] [address] Marty Olson HbA1c (Bld) [Mass fraction] 5.4 % Normal 4.5-6.2 [facility] Comment on above: Performed By: #### A 1C #### [facility] [address] [place] [address] [address] Marty Olson IRONon 05-06-2022 Iron [Mass/Vol] 32.0 ug/dL Critically low 50.0-170.0 [facility] Comment on above: Performed By: #### V ITAD, IRON, FERR, FT4 #### [facility] [address] [place] [address] [address] Marty Olson LIPID PROFILEon 05-06-2022 CHOL-HDL RATIO NORM SEE BELOW Normal [facility] Comment on above: Result Comment: 3.3 - 4.4 LOW RISK 4.4 - 7.1 AVERAGE RISK 7.1 - 11.0 MODERATE RISK >11.0 HIGH RISK Performed By: #### T SH, LIPID, FT3, BMP, LIVER ####[facility] [address] [place] [address]Dr. Marty Olson Cholesterol [Mass/Vol] 172 mg/dL Normal <=200 [facility] Comment on above: Performed By: #### T SH, LIPID, FT3, BMP, LIVER ####[facility] [address] [place] [address]Dr. Marty Olson Cholesterol in HDL [Mass/Vol] 68 mg/dL Critically high 40-60 [facility] Comment on above: Performed By: #### T SH, LIPID, FT3, BMP, LIVER ####[facility] [address] [place] [address]Dr. Marty Olson Cholesterol in LDL [Mass/Vol] 95.0 mg/dL Normal [facility] Comment on above: Performed By: #### T SH, LIPID, FT3, BMP, LIVER ####[facility] [address] [place] [address]Dr. Marty Olson Cholesterol.total/Ch olesterol in HDL [Mass ratio] 2.5 {ratio} Normal [facility] Comment on above: Performed By: #### T SH, LIPID, FT3, BMP, LIVER ####[facility] [address] [place] [address]Dr. Marty Olson HDL NORMAL > or = 60 mg/dl - LO W CARDIOVASCULAR RISK <40 mg/dl - HIGH CARDIOVASCULAR RISK Normal [facility] Comment on above: Performed By: #### T SH, LIPID, FT3, BMP, LIVER ####[facility] [address] [place] [address]Dr. Marty Olson LDL CALC NORMAL SEE BELOW Normal [facility] Comment on above: Result Comment: <100 mg/dl OPTIMAL 100 - 129 mg/dl NEAR OR ABOVE OPTIMAL 130 - 159 mg/dl BORDERLINE HIGH 160 - 189 mg/dl HIGH >190 mg/dl VERY HIGH Performed By: #### T SH, LIPID, FT3, BMP, LIVER ####[facility] [address] [place] [address]Dr. Marty Olson Triglyceride [Mass/Vol] 45 mg/dL Normal <=150 [facility] Comment on above: Performed By: #### T SH, LIPID, FT3, BMP, LIVER ####[facility] [address] [place] [address]Dr. Marty Olson VLDL CALC 9.0 mg/dL Normal [facility] Comment on above: Performed By: #### T SH, LIPID, FT3, BMP, LIVER ####[facility] [address] [place] [address]Dr. Marty Olson LIVER PROFILEon 10-14-2022 Albumin [Mass/Vol] 3.1 g/dL Critically low 3.4-5.0 [facility] Comment on above: Performed By: #### T SH, LIPID, FT3, BMP, LIVER ####[facility] [address] [place] [address]Dr. Marty Olson Albumin/Globulin [Mass ratio] 0.9 {ratio} Normal [facility] Comment on above: Performed By: #### T SH, LIPID, FT3, BMP, LIVER ####[facility] [address] [place] [address]Dr. Marty Olson ALP [Catalytic activity/Vol] 69 U/L Normal 46-116 [facility] Comment on above: Performed By: #### T SH, LIPID, FT3, BMP, LIVER ####[facility] [address] [place], [place] [address]Dr. Marty Olson ALT [Catalytic activity/Vol] 21 U/L Normal 14-59 [facility] Comment on above: Performed By: #### T SH, LIPID, FT3, BMP, LIVER ####[facility] [address] [place], [place] [address]Dr. Marty Olson AST [Catalytic activity/Vol] 11 U/L Critically low 15-37 [facility] Comment on above: Performed By: #### T SH, LIPID, FT3, BMP, LIVER ####[facility] [address] [place], [place] [address]Dr. Marty Olson BILI, CONJUGATED 0.1 mg/dL Normal 0.0-0.2 [facility] Comment on above: Performed By: #### T SH, LIPID, FT3, BMP, LIVER ####[facility] [address] [place], [place] [address]Dr. Marty Olson Bilirubin [Mass/Vol] 0.2 mg/dL Normal 0.2-1.0 [facility] Comment on above: Performed By: #### T SH, LIPID, FT3, BMP, LIVER ####[facility] [address] [place], [place] [address]Dr. Marty Olson Globulin (S) [Mass/Vol] 3.4 g/dL Normal [facility] Comment on above: Performed By: #### T SH, LIPID, FT3, BMP, LIVER ####[facility] [address] [place] [address]Dr. Marty Olson Protein [Mass/Vol] 6.5 g/dL Normal 6.4-8.2 [facility] [place] [facility] Comment on above: Performed By: #### T SH, LIPID, FT3, BMP, LIVER ####[facility] [address] [place] [address]Dr. Evebipin Olson PROF CHEM 8 (BAS METB)on Anion gap [Moles/Vol] 10.3 mmol/L Normal [facility] Comment on above: Performed By: #### T SH, LIPID, FT3, BMP, LIVER ####[facility] [address] [place], [place] [address]Dr. Marty Olson Calcium [Mass/Vol] 8.3 mg/dL Critically low 8.5-10.1 [facility] Comment on above: Performed By: #### T SH, LIPID, FT3, BMP, LIVER ####[facility] [address] [place], [place] [address]Dr. Marty Olson Chloride [Moles/Vol] 107 mmol/L Normal 98-107 [facility] Comment on above: Performed By: #### T SH, LIPID, FT3, BMP, LIVER ####[facility] [address] [place], [place] [address]Dr. Marty Olson CO2 [Moles/Vol] 25.0 mmol/L Normal 21.0-32.0 [facility] Comment on above: Performed By: #### T SH, LIPID, FT3, BMP, LIVER ####[facility] [address] [place], [place] [address]Dr. Marty Olson Creatinine [Mass/Vol] 0.72 mg/dL Normal 0.55-1.02 [facility] Comment on above: Performed By: #### T SH, LIPID, FT3, BMP, LIVER ####[facility] [address] [place] [address]Dr. Marty Olson EGFR-AF CAMEROONIAN >60 Normal >=60 [facility] Comment on above: Performed By: #### T SH, LIPID, FT3, BMP, LIVER ####[facility] [address] [place] [address]Dr. Marty Olson EGFR-NON AF CAMEROONIAN >60 Normal >=60 [facility] Comment on above: Performed By: #### T SH, LIPID, FT3, BMP, LIVER ####[facility] [address] [place] [address]Dr. Marty Olson Glucose [Mass/Vol] 94 mg/dL Normal 74-106 [facility] Comment on above: Performed By: #### T SH, LIPID, FT3, BMP, LIVER ####[facility] [address] [place] [address]Dr. Marty Olson Potassium [Moles/Vol] 4.3 mmol/L Normal 3.5-5.1 [facility] Comment on above: Performed By: #### T SH, LIPID, FT3, BMP, LIVER ####[facility] [address] [place] [address]Dr. Marty Olson Sodium [Moles/Vol] 138 mmol/L Normal 136-145 [facility] Comment on above: Performed By: #### T SH, LIPID, FT3, BMP, LIVER ####[facility] [address] [place] [address]Dr. Marty Olson Urea nitrogen [Mass/Vol] 19.0 mg/dL Critically high 7.0-18.0 [facility] Comment on above: Performed By: #### T SH, LIPID, FT3, BMP, LIVER ####[facility] [address] [place] [address]Dr. Marty Olson Urea nitrogen/Creatinine [Mass ratio] 26.4 mg/mg Normal [facility] Comment on above: Performed By: #### T SH, LIPID, FT3, BMP, LIVER ####[facility] [address] [place] [address]Dr. Marty Olson TSHon 05-06-2022 TSH 1.968 uIU/mL Normal 0.358-3.74 0 [facility] Comment on above: Performed By: #### T SH, LIPID, FT3, BMP, LIVER ####[facility] [address] [place], [place] [address]XyDr. Marty Olson VITAMIN D 25 OHon 05-06-2022 VIT D 25-OH 43.8 ng/mL Normal [facility] Comment on above: Performed By: #### V ITAD, IRON, FERR, FT4 #### [facility] [address] [place], [place] [address] [address]. Marty Olson VIT D RANGES SEE BELOW Normal [facility] Comment on above: Result Comment: <20 ng/mL Vit D deficient 20 - <30 ng/mL Vit D insufficient 30 - 100 ng/mL Vit D sufficient >100 ng/mL Potential Toxicity Performed By: #### V ITAD, IRON, FERR, FT4 #### [facility] [address] [place], [place] [address] Dr. Marty Olson Physician Referralon 022 Physician Referral [phone] [id number] Normal [facility] C BP Strepon 11-16-2021 C BP Strep order added by vinay grajeda This is strictly a screening test for Strep Group A( Streptococcus pyogenes). No other pathogens will be noted. Final Backup plate negative for Group A Streptococus Resulted at [facility] Normal [facility] Comment on above: Performed By: #### B P #### [facility] WITH [facility] (DEFAULT) [address] [place] [address] MERGED WITH [facility] [address] [place] [address] ED Clinical Summaryon 2021 ED Clinical Summary (Inserted Image. Suzy ble to display) [facility] [address] [place] [address] ED Clinical Summary Person Information Name: Natalie Jaquez/New_Manny Age: 26 Years : 1995 Sex: Female PCP: Jayme Costa MD Marital Status: Single Phone: Race: White Ethnicity: Not or Language: Pashto Visit Reason: Ear pain; Throat pain - Adult; Throat pain Acuity: 4 Enc Type: Emergency Med Service: Emergency Medicine Arrival: 11/14/2021 06:21:46 Discharge: 11/14/2021 08:20:00 LOS: 000 01:59 Checkin: 11/14/2021 06:21:46 Checkout: 11/14/2021 08:20:00 Dispo Type: Home or Self Care Address: [address] [facility] [address] Provider Notes: Diagnosis: 1:Pharyngitis Problems No Problems Documented Smoking Status: Smoking Status Never (less than 100 in lifetime) Functional Status: Sensory Deficits: History of Falls: Mobility Assistance Prior to Admission: ADLs: Current Level of Assistance for Self-Care/Mobility: Cognitive Status: Allergies Avonex (Shortness of breath) Copaxone (Hives) Laboratory or Other Results This Visit (last charted value for your 11/14/2021 visit) Misc. Micro Rapid Test 11/14/2021 7:20 AM Strep A: Negative Measurements: Height: Weight: 99.4 kg Blood Pressure: /83 mmHg BMI: Procedures No Procedures Documented Immunizations No Immunizations Documented This Visit Final Med List: New Medications [id number], [address], [place] [id number], [phone] amoxicillin (amoxicillin 500 mg oral tablet) 1 Tabs Oral (given by mouth) 3 times a day for 7 Days. Refills: 0. Last Dose: naproxen (naproxen 500 mg oral tablet) 1 Tabs Oral (given by mouth) 2 times a day as needed pain for 15 Days. Refills: 0. Last Dose: Medications that have not changed Other Medications ARIPiprazole (Abilify) Oral (given by mouth) every day. Last Dose: buPROPion (Wellbutrin SR) Oral (given by mouth) 2 times a day. Last Dose: cholecalciferol (Vitamin D3) Last Dose: dextroamphetamine-amphetami ne (Adderall) Oral (given by mouth) 2 times a day. Last Dose: levothyroxine every day. Last Dose: metFORMIN Oral (given by mouth). Last Dose: multivitamin with iron (Iron 100 Plus) Oral (given by mouth) every day. Last Dose: norgestimate-ethinyl estradiol (Tri Femynor) Oral (given by mouth) every day. Last Dose: venlafaxine Oral (given by mouth). Last Dose: [id number], [address] [place] [id number], [phone] amoxicillin (amoxicillin 500 mg oral tablet) 1 Tabs Oral (given by mouth) 3 times a day for 7 Days. Refills: 0. naproxen (naproxen 500 mg oral tablet) 1 Tabs Oral (given by mouth) 2 times a day as needed pain for 15 Days. Refills: 0. Other Medications ARIPiprazole (Abilify) Oral (given by mouth) every day. buPROPion (Wellbutrin SR) Oral (given by mouth) 2 times a day. cholecalciferol (Vitamin D3) dextroamphetamine-amphetami ne (Adderall) Oral (given by mouth) 2 times a day. levothyroxine every day. metFORMIN Oral (given by mouth). multivitamin with iron (Iron 100 Plus) Oral (given by mouth) every day. norgestimate-ethinyl estradiol (Tri Femynor) Oral (given by mouth) every day. venlafaxine Oral (given by mouth). Care Team Members: Attending Physician: David Montana MD Consulting Physician: Referring Physician: Provider Role Assigned Unassigned Rubén BENÍTEZ, David Villanueva ED Provider 11/14/2021 07:02:59 Follow up: With: Address: When: [facility] [place] [phone] Business (1) , only if needed Discharge Orders: Discharge Patient 11/14/21 8:07:00 EDT, Discharge to Home, Self, Pharyngitis Patient Education Information: Pharyngitis, Report Pending [facility] Poison Help line: . [facility] Hotline: [place] Tobacco Quit Line: [place], [place]) [address]: [phone] [place], [place]) [address]: [phone] [facility] [address] [place], [place]: [phone] Normal [facility] ED Note-Physicianon 11-15-19 ED Note-Physician Chief Complaint pt said she smoked around 6pm yesterday she had sudden throat pain, and then around bedtime started the bilateral ear pain History of Present Illness 26-year-old female presents emergency room with a sore throat and ear pain. She states that her sore throat began yesterday after smoking a cigarette. She thought maybe she burned the back of her throat. But today she has pain up into both her ears with some associated fullness. She states that there is no difficulty swallowing but she does have the burning pain that extends down into the chest. She has had no fever or chills. Denies cough or congestion. Review of Systems Review of systems otherwise fully reviewed and negative as pertains this complaint Physical Exam CONSTITUTIONAL: [well appearing in no acute distress] SKIN: [Warm, dry, and intact without rash] EYES: [extraocular movements are grossly intact, clear conjunctiva] HENT: [Normocephalic, atraumatic, moist mucus membranes] no lesions, dunaway or blisters, exudate NECK: [no obvious swelling, normal range of motion] PULMONARY: [normal chest rise and fall, no respiratory distress or stridor CARDIOVASCULAR: [regular rate, distal extremities are warm and well perfused] GASTROINSTESTINAL: [nondistended, non-tender] GENITOURINARY: [deferred] NEUROLOGIC: [normal speech, moves all extremities] MUSCULOSKELETAL: [no gross deformities, atraumatic] PSYCHIATRIC: [normal mood and affect] Vitals & Measurements T: 37.1 ?C (Oral) HR: 90 (Peripheral) HR: 90 (Monitored) RR: 16 BP: 120/83 SpO2: 97% HT: 167.6 cm WT: 99.4 kg (Dosing) Additional Vitals No qualifying data available. Procedure No qualifying data available. ASA Documentation Assessment/Plan 1. Pharyngitis Ordered: amoxicillin, 1 tabs, Oral, TID, X 7 days, # 21 tabs, 0 Refill(s), 11/21/21 8:06:00 EDT, Pharmacy: [id number] naproxen, 1 tabs, Oral, BID, PRN, X 15 days, # 30 tabs, 0 Refill(s), 11/29/21 8:06:00 EDT, Pharmacy: [facility][id number] Discharge Patient Orders: Culture Backup Strep Refresh vitals and sections below: Problem List/Past Medical History Ongoing Anemia Multiple sclerosis PCOS- polycystic ovary syndrome Historical No qualifying data Procedure/Surgical History Gallbladder removal Tonsils removed Medications Inpatient No active inpatient medications Home Abilify, Oral, Daily Adderall, Oral, BID Iron 100 Plus, Oral, Daily, Not taking levothyroxine, Daily metFORMIN, Oral, Not taking Tri Femynor, Oral, Daily venlafaxine, Oral Vitamin D3 Wellbutrin SR, Oral, BID, Not taking Allergies Avonex (Shortness of breath) Copaxone (Hives) Social History Alcohol Never Substance Abuse Current, Marijuana, Daily Tobacco Never (less than 100 in lifetime) Use:. E-Cigarettes Family History Family history is unknown Diagnostic Results Electronically signed by Rubén BENÍTEZ David Suarezncer 11/14/21 10:58 EDT Normal [facility] Strep Aon 11-14-2021 Strep A Negative Normal Negative [facility] Comment on above: Result Comment: A n egative result indicates that Strep A is not present in the sample or that the concentration of the Strep A antigen present in the throat swab is below the detectable level of the test. The patient's sample should be cultured to confirm the absence of Strep A infection. If clinical symptoms are not consistent with results, obtain another sample for culture. This test will indicate the presence of Strep A antigen in the specimen from both viable and non-viable Group A Strepcoccus bacteria. Results must be interpreted together with other clinical information available to the clinician. Performed By: #### L IVER #### [address] [address] BRAIN & CERVICAL SPINE MRI D ISCRETE DATAon 2021 Brain Enhancing Lesions None [facility] Brain Interval Improvement None [facility] Brain New T2 Lesions None [facility] Brain Other Significant MRI Findings None. [facility] Brain Parenchymal Volume Loss None [facility] Brain T2 [place] of Disease Mild [facility] MRI BRAIN WO/W IVCONon 11-05 [facility] Send-out: Otheron 09-29-2021 Send-out Other See Report Normal [facility] Comment on above: Order Comment: [facility] ence [facility] Vitamin D2 and D3Test Code: 25HDNdraw one sst Result Comment: Miss ing Attachment Chartable Reference Lab Reports Can be viewed in source system Performed By: #### H BA1C #### [address] [address] .eGFRon 09-23-2021 eGFR Non-AA >60 Normal >=60 [facility] Comment on above: Result Comment: Stag es of Chronic Kidney Disease GFR Stage 3a Mild to moderate loss of kidney function 59 to 45 Stage 3b Moderate to severe loss of kidney function 44 to 33 Stage 4 Severe loss of kidney function 29 to 15 Stage 5 Kidney failure Less than 15 GFR calculated using the CKD-EPI Creatinine Equation (2009): eGFR = 141 X min(SCr/?, 1)? X max(SCr /?, 1)-1.209 X 0.993Age X 1.018 [if female] X 1.159 [if Black] Abbreviations/Units: eGFR (estimated glomerular filtration rate) = mL/min/1.73 m2 SCr (standardized serum creatinine) = mg/dL ? = 0.7 (females) or 0.9 (males) ? = -0.329 (females) or -0.411 (males) min = indicates the minimum of SCr/? or 1 max = indicates the maximum of SCr/? or 1 age = years Performed By: #### L IVER #### [address] [address] eGFR AA >60 Normal >=60 [facility] Comment on above: Result Comment: See comment. Performed By: #### L IVER #### [address] [address] Basic Metabolic Profileon Anion gap [Moles/Vol] 14 mmol/L Normal 7-17 [facility] Comment on above: Performed By: #### L IVER #### [address] [address] Calcium [Mass/Vol] 8.6 mg/dL Normal 8.5-10.3 [facility] Comment on above: Performed By: #### L IVER #### [address] [address] Chloride [Moles/Vol] 101 mmol/L Normal 98-110 [facility] Comment on above: Performed By: #### L IVER #### [address] [address] CO2 [Moles/Vol] 25 mmol/L Normal 22-32 [facility] Comment on above: Performed By: #### L IVER #### [address] [address] Creatinine [Mass/Vol] 0.75 mg/dL Normal 0.44-1.03 [facility] Comment on above: Performed By: #### L IVER #### [address] [address] Glucose [Mass/Vol] 81 mg/dL Normal 70-99 [facility] Comment on above: Performed By: #### L IVER #### [address] [address] Potassium [Moles/Vol] 3.4 mmol/L Normal 3.4-4.8 [facility] Comment on above: Performed By: #### L IVER #### [address] [address] Sodium [Moles/Vol] 137 mmol/L Normal 133-142 [facility] Comment on above: Performed By: #### L IVER #### [address] [address] Urea nitrogen [Mass/Vol] 16 mg/dL Normal 8-26 [facility] Comment on above: Performed By: #### L IVER #### [address] [address] Urea nitrogen/Creatinine [Mass ratio] 21.3 mg/mg High 10.0-20.0 [facility] Comment on above: Performed By: #### L IVER #### [address] [address] CBC w/ Diffon 09-23-2021 Erythrocyte distribution width (RBC) [Ratio] 14.6 % Normal 11.6-14.8 [facility] Comment on above: Performed By: #### C BC #### [address] [address] Hematocrit (Bld) [Volume fraction] 36.6 % Normal 36.0-46.0 [facility] Comment on above: Performed By: #### C BC #### [address] [address] Hemoglobin (Bld) [Mass/Vol] 12.3 g/dL Normal 12.0-16.0 [facility] Comment on above: Performed By: #### C BC #### [address] [address] MCH (RBC) [Entitic mass] 29.9 pg Normal 27.0-35.0 [facility] Comment on above: Performed By: #### C BC #### [place] [id number] MCHC 33.5 % Normal 31.0-37.0 [facility] Comment on above: Performed By: #### C BC #### [place] [id number] MCV (RBC) [Entitic vol] 89.3 fL Normal 80.0-100.0 [facility] Comment on above: Performed By: #### C BC #### [address] [address] Platelet 385 x10*3/mcL High 150-350 [facility] Comment on above: Performed By: #### C BC #### [address] [address] Platelet mean volume (Bld) [Entitic vol] 7.4 fL Normal 6.7-10.6 [facility] Comment on above: Performed By: #### C BC #### [address] [address] RBC 4.10 x10*6/mcL Normal 3.80-5.20 [facility] Comment on above: Performed By: #### C BC #### [address] [address] WBC 10.4 x10*3/mcL Normal 4.5-11.0 [facility] Comment on above: Performed By: #### C BC #### [address] [address] Diff Autoon 09-23-2021 Baso Absolute 0.0 x10*3/mcL Normal 0.0-0.2 [facility] Comment on above: Performed By: #### L IVER #### [address] [address] Basophils/100 WBC (Bld) 0.3 % Normal 0.0-1.5 [facility] Comment on above: Performed By: #### L IVER #### [address] [address] Eos Absolute 0.1 x10*3/mcL Normal 0.0-0.4 [facility] Comment on above: Performed By: #### L IVER #### [address] [address] Eosinophils/100 WBC (Bld) 0.6 % Normal 0.0-5.4 [facility] Comment on above: Performed By: #### L IVER #### [address] [address] Lymph Absolute 2.1 x10*3/mcL Normal 1.0-4.8 [facility] Comment on above: Performed By: #### L IVER #### [address] [address] Lymphocytes/100 WBC (Bld) 19.8 % Low 27.2-40.8 [facility] Comment on above: Performed By: #### L IVER #### [address] [address] Dewitt Absolute 0.7 x10*3/mcL Normal 0.1-1.1 [facility] Comment on above: Performed By: #### L IVER #### [address] [address] Monocytes/100 WBC (Bld) 6.4 % Normal 3.7-11.9 [facility] Comment on above: Performed By: #### L IVER #### [address] [address] Neutro Absolute 7.6 x10*3/mcL Normal 1.8-7.7 [facility] Comment on above: Performed By: #### L IVER #### [address] [address] Neutro Auto 72.9 % High 47.2-70.8 [facility] Comment on above: Performed By: #### L IVER #### [address] [address] Free T3on 09-23-2021 Free T3 [Mass/Vol] 3.29 pg/mL Normal 2.50-3.90 [facility] Comment on above: Performed By: #### L IVER #### [address] [address] Free T4on 09-23-2021 Free T4 [Mass/Vol] 0.82 ng/dL Normal 0.61-1.12 [facility] Comment on above: Performed By: #### L IVER #### [address] [address] Hep Func Panelon 09-23-2021 Albumin [Mass/Vol] 3.9 g/dL Normal 3.2-4.9 [facility] Comment on above: Performed By: #### L IVER #### [address] [address] Alk Phos 61 IU/L Normal 32-91 [facility] Comment on above: Performed By: #### L IVER #### [address] [address] ALT [Catalytic activity/Vol] 17 U/L Normal 14-54 [facility] Comment on above: Performed By: #### L IVER #### [address] [address] AST [Catalytic activity/Vol] 18 U/L Normal 15-41 [facility] Comment on above: Performed By: #### L IVER #### [address] [address] Bili Direct 0.2 mg/dL Normal 0.1-0.5 [facility] Comment on above: Performed By: #### L IVER #### [address] [address] Bili Indirect 0.4 mg/dL Normal 0.0-1.0 [facility] Comment on above: Performed By: #### L IVER #### [address] [address] Bili Total 0.6 mg/dL Normal 0.3-1.2 [facility] Comment on above: Performed By: #### L IVER #### [address] [address] Protein [Mass/Vol] 6.8 g/dL Normal 6.5-8.1 [facility] Comment on above: Performed By: #### L IVER #### [address] [address] Hgb A1con 09-23-2021 Glucose [Mass/Vol] 94 mg/dL Normal 68-114 [facility] Comment on above: Result Comment: Math ematical Calc approx. The mean gluc equivalency of A1c Performed By: #### H BA1C #### [address] [address] Hgb A1c 4.9 % A1c Normal 4.0-5.6 [facility] Comment on above: Result Comment: Refe rence Range: 4.0 - 5.6 % Normal 5.7 - 6.4 % Pre-Diabetes > 6.5 % Diabetes Performed By: #### H BA1C #### [address] [address] Insulinon 09-23-2021 Insulin Lvl 7.05 mcIU/mL Normal 1.90-23.00 [facility] Comment on above: Performed By: #### H BA1C #### [address] [address] Lipid Panelon 09-23-2021 Cholesterol in LDL [Mass/Vol] 136 mg/dL High 0-99 [facility] Comment on above: Result Comment: The equation being used in this calculation is LDL = (Chol - HDL) - (Trig / 5) The optimal value of LDL for individual patients may vary. The patient's history of Artherosclerosis and other cardiac risk factors should be considered. Performed By: #### H BA1C #### [address] [address] Cardiac Risk 2.8 Normal [facility] Comment on above: Result Comment: Men Women 1/2 Average 3.43 3.27 Average 4.97 4.44 2x Average 9.55 7.05 3x Average 23.99 11.04 Performed By: #### H BA1C #### [address] [address] Cholesterol [Mass/Vol] 233 mg/dL High 25-199 [facility] Comment on above: Result Comment: 0 - 17 years of age: Desirable 0-170 Borderline High 170-199 High >=200 18 years and older: Acceptable <200 Borderline High 200-239 High >=240 Performed By: #### H BA1C #### [address] [address] Cholesterol in HDL [Mass/Vol] 83.6 mg/dL High 40.0-60.0 [facility] Comment on above: Performed By: #### H BA1C #### [address] [address] Cholesterol in VLDL [Mass/Vol] 13 mg/dL Normal 8-39 [facility] Comment on above: Performed By: #### H BA1C #### [address] [address] Triglyceride [Mass/Vol] 66 mg/dL Normal [facility] Comment on above: Result Comment: 0 - 17 years of age: Trig 90 - 129 Borderline High Trig => 130 High 18 years and older: Trig 150 - 199 Borderline High Trig 200 - 499 High Trig =>500 Very High Performed By: #### H BA1C #### [address] [address] TSHon 09-23-2021 TSH Qn 2.99 m[IU]/L Normal 0.45-5.33 [facility] Comment on above: Result Comment: Refe rence Ranges for individuals from to 18 years of age were obtained from The Regina Starks Handbook (20 ed) published by [facility]. Reference Ranges for Females: Females, 1st Trimester 0.05 ? 3.7 uIU/mL Females, 2nd Trimester 0.31 ? 4.35 uIU/mL Females, 3rd Trimester 0.41 ? 5.18 uIU/mL Performed By: #### L IVER #### [facility] WITH [facility] [address] [place] [address] Urgent Care Office/Clinic No jimmy 03-12-2021 Urgent Care Office/Clinic Note Chief Complaint pt states sob, runny nose, sinus drainage. x 2-3 days History of Present Illness A 25-year-old with a history of multiple sclerosis presents with chest congestion. She states that for the past 3 days she had had a runny nose, postnasal drainage and now chest congestion. She denies cough, sneezing, runny nose, ear pain, fever, difficulty breathing, wheezing. She has no personal history of any asthma. She takes her MS medications daily and has not yet been vaccinated for COVID-19. Review of Systems General: The patient denies fever, no unexplained changes in weight, headaches, fatigue, body aches, or dizziness. No loss of taste or smell. HEENT: +PND, rhinorrhea denies changes in hearing, ear pain,, congestion, sinus pressure, Denies double vision, blurred vision or eye pain. Cardiovascular: No swelling of the lower extremities, chest pain, arrhythmia Pulmonary: +chest congestion, shortness of breath, no wheezing GI: No nausea, vomiting or diarrhea, abdominal pain : denies dysuria, bleeding, incontinence, freq, urgency Endocrine: No reports of sweating, cold or heat intolerance. No polyuria or polydipsia. Musculoskeletal: denies weakness, joint pain, back pain Skin: No rashes Physical Exam Vitals & Measurements T: 37 ?C (Oral) HR: 81 (Peripheral) RR: 18 BP: 121/80 SpO2: 99 HT: 161 cm WT: 90.5 kg WT: 90.5 kg (Dosing) BMI: 34.91 General statement: Dressed appropriate for season. Atraumatic normocephalic. No acute distress. Eyes: Pupils equal round and reactive to light, extraocular muscles intact, no redness or discharge. Ears: TMs bilaterally bulging with mid ear effusions with no retraction present. Canals are free of drainage and erythema. Free of mastoiditis Nose: Negative for discharge and rhinorrhea. No mucosal edema, epistaxis or polyps. No sinus tenderness to percussion. Throat: Oropharynx erythematous but moist. Tonsils without inflammation or exudate. No postnasal drip. Neck: No deformities. Trachea midline, no thyroid abnormalities, supple, full range of motion, bilateral anterior nontender cervical lymphadenopathy. Abdomen: Normoactive bowel sounds, nontender, no CVA tenderness. Lungs: No accessory muscle usage, no shortness of breath on exam. Clear to auscultation bilaterally, no rales, rhonchi or wheezing noted. Heart: Regular in rate and rhythm, no murmur, gallop or thrills Additional Vitals No qualifying data available. Assessment/Plan 1. Chest congestion covid: negative Humidifier and Mucinex for chest congestion. Follow up with your PCP if not improving. Go to the emergency room if worsening. Oxygen is 100% and your chest xray is clear Treatment options for cough and sore throat: Gargle with warm salt water Claritin/Zyrtec in AM for nondrowsy antihistamine (dries you up) Benadryl in PM for drowsy antihistamine Flonase nasal spray for postnasal drainage and sore throat Sore throat drops, cepacol, chloraseptic spray Warm tea with honey Medical Decision Making covid testing: negative CXR: negative Chronic conditions NOT treated during this visit that affected my overall medical decision making: [] Treatment plans discussed but not opted for at this time: [] Prescribed medication that requires intensive monitoring for toxicity: [] I have reviewed the patient?s medication list for medication interactions/contraindicati ons and/or for upcoming procedures: [yes or no] Time Spent with the Patient I have personally spent [20] minutes on this date, directly related to today's patient visit, including pre and post visit work, for this date of service. Time listed does not include time spent on separately billable services. Problem List/Past Medical History Ongoing Anemia Multiple sclerosis PCOS- polycystic ovary syndrome Historical No qualifying data Procedure/Surgical History Gallbladder removal Tonsils removed Medications Abilify, Oral, Daily Adderall, Oral, BID Iron 100 Plus, Oral, Daily, Not taking levothyroxine, Daily metFORMIN, Oral, Not taking Tri Femynor, Oral, Daily Vitamin D3 Wellbutrin SR, Oral, BID, Not taking Allergies Avonex (Shortness of breath) Copaxone (Hives) Social History Tobacco Never (less than 100 in lifetime) Use:. E-Cigarettes Family History Family history is unknown Diagnostic Results No qualifying data available (XRay) No qualifying data available (CT) No qualifying data available (Ultrasound) No qualifying data available (MRI) Electronically signed by Kezia Kumari PA-C 03/12/21 15:55 EDT Normal [facility] Urgent Care Office/Clinic No jimmy 02-22-2021 Urgent Care Office/Clinic Note Chief Complaint Patient reports concern for an infected in her belly button redness around the area which began 2 days ago. History of Present Illness Pleasant 25-year-old female presents for evaluation of redness to the skin surrounding her bellybutton that she noticed 2 days ago. The patient does admit that she has had a clear drainage from the area. States that the affected area is mildly pruritic. Denies that there has been any pain, warmth, or or tenderness to palpation to the affected area. She denies any piercings or open wounds to the navel. Denies that she has had any associated symptoms such as fever, chills, body aches. Denies any other rash, open wounds, or lesions throughout. Patient does admit that due to her weight the skin around her bellybutton often rubs. She also admits that she has been sweating more frequently due to the summer heat. Review of Systems General: No fever, chills, body aches or fatigue. No unexplained weight loss or change in appetite. HEENT: No visual changes, blurred vision, or double vision. No eye pain. No ear pain. No change in hearing or tinnitus. No nasal drainage. No nasal congestion. No sinus pressure. No sore throat. Cardiovascular: No chest pain, palpitations, or syncope. Pulmonary: No shortness of breath, wheezing, cough. GI: No nausea, vomiting or diarrhea. No abdominal pain. Skin: +redness to skin surrounding naval with reported intermittent clear drainage. Physical Exam Vitals & Measurements T: 36.9 ?C (Oral) HR: 75 (Peripheral) RR: 17 BP: 105/71 SpO2: 99 HT: 167 cm WT: 90.5 kg WT: 90.5 kg (Dosing) BMI: 32.45 General: Well-developed, in no acute distress. Neuro: Alert and oriented. Gait is steady. Speech is clear and appropriate. Eyes: PERRL. Conjunctiva clear without erythema or drainage. Lungs: Respirations quiet, nonlabored, no audible wheezing. Skin: +erythematous circular rash surrounding umbilicus. Rash is within a skin fold when patient is sitting in upright position. +scant amount of clear drainage noted from affected area. No signs of secondary skin infection such as red streaking, warmth, or tenderness to palpation. Additional Vitals BP Position/Location: Sitting, Left arm Assessment/Plan 1. Intertrigo Apply the topical antifungal to the affected area as prescribed. Wash area with mild soap and water. Be sure to dry the area completely. Recommend applying a barrier to prevent the skin around your bellybutton from rubbing. You may use an old cotton shirt or a gauze pad. Continue to monitor for worsening signs of infection such as increased redness, warmth, pain, drainage, or odor from the area. Follow-up with your primary care provider within the week, sooner if needed. Go to the emergency department for any new or worsening symptoms. Ordered: ketoconazole topical, 1 domenic, Topical, Daily, X 14 days, # 30 g, 0 Refill(s), 03/08/21 17:05:00 EDT, Pharmacy: [facility]/pharmacy #[id number] Medical Decision Making Patient is well and nontoxic-appearing upon evaluation. Vital signs are stable. Reviewed assessment and plan of care with patient. Patient verbalized understanding and agreed with plan. No further questions or concerns upon discharge. Chronic conditions NOT treated during this visit that affected my overall medical decision making: [] Treatment plans discussed but not opted for at this time: [] Prescribed medication that requires intensive monitoring for toxicity: [] I have reviewed the patient?s medication list for medication interactions/contraindicati ons and/or for upcoming procedures: [yes] Time Spent with the Patient I have personally spent [12] minutes on this date, directly related to today's patient visit, including pre and post visit work, for this date of service. Time listed does not include time spent on separately billable services. Problem List/Past Medical History Ongoing Anemia Multiple sclerosis PCOS- polycystic ovary syndrome Historical No qualifying data Procedure/Surgical History Gallbladder removal Tonsils removed Medications Abilify, Oral, Daily Adderall, Oral, BID Iron 100 Plus, Oral, Daily, Not taking ketoconazole 2% topical cream, 1 domenic, Topical, Daily levothyroxine, Daily metFORMIN, Oral, Not taking Tri Femynor, Oral, Daily Vitamin D3 Wellbutrin SR, Oral, BID, Not taking Allergies Avonex (Shortness of breath) Copaxone (Hives) Social History Tobacco 4 or less cigarettes(less than 1/4 pack)/day in last 30 days Use:. E-Cigarettes Family History Family history is unknown Diagnostic Results No qualifying data available (XRay) No qualifying data available (CT) No qualifying data available (Ultrasound) No qualifying data available (MRI) Electronically signed by Rakel ANDERSON Leyla Moreno 02/22/21 17:35 EDT Normal [facility] Vital Signs Date Time Vital Sign Value Performing Clinician Facility 01-17-2024 13:35-0400 Body temperature 98.2 [degF] Jambo Work Phone: [facility] 01-17-2024 13:35-0400 Diastolic blood pressure 81 mm[Hg] Jambo Work Phone: [facility] 01-17-2024 13:35-0400 Heart rate 84 /min Jambo Work Phone: [facility] 01-17-2024 13:35-0400 Respiratory rate 16 /min Jambo Work Phone: [facility] 01-17-2024 13:35-0400 SaO2% (BldA) [Mass fraction] 96 % Chair Shaneka Work Phone: [facility] 01-17-2024 13:35-0400 Systolic blood pressure 131 mm[Hg] Chair Shaneka Work Phone: [facility] 12-29-2023 13:43-0400 Body height 167.6 cm Marielle Garcia RETAIL BUSINESS DEVELOPMENT MANAGER.MVA REACTOR OPERATOR Work Phone: [facility] 12-29-2023 13:43-0400 Body mass index (BMI) [Ratio] 44.27 kg/m2 Marielle Garcia RETAIL BUSINESS DEVELOPMENT MANAGER.MVA REACTOR OPERATOR Work Phone: [facility] 12-29-2023 13:43-0400 Body weight 124.4 kg Marielle Garcia RETAIL BUSINESS DEVELOPMENT MANAGER.MVA REACTOR OPERATOR Work Phone: [facility] 12-29-2023 13:43-0400 Diastolic blood pressure 99 mm[Hg] Marielle Garcia RETAIL BUSINESS DEVELOPMENT MANAGER.MVA REACTOR OPERATOR Work Phone: [facility] 12-29-2023 13:43-0400 Heart rate 91 /min Marielle Garcia RETAIL BUSINESS DEVELOPMENT MANAGER.MVA REACTOR OPERATOR Work Phone: [facility] 12-29-2023 13:43-0400 Respiratory rate 17 /min Marielle Garcia RETAIL BUSINESS DEVELOPMENT MANAGER.MVA REACTOR OPERATOR Work Phone: [facility] 12-29-2023 13:43-0400 SaO2% (BldA) [Mass fraction] 95 % Marielle Garcia RETAIL BUSINESS DEVELOPMENT MANAGER.MVA REACTOR OPERATOR Work Phone: [facility] 12-29-2023 13:43-0400 Systolic blood pressure 141 mm[Hg] Marielle Garcia RETAIL BUSINESS DEVELOPMENT MANAGER.MVA REACTOR OPERATOR Work Phone: [facility] 12-19-2023 13:32-0400 Body height 167.64 cm MD Jayme Costa Work Phone: [facility] 12-19-2023 13:32-0400 Body mass index (BMI) [Ratio] 43.5 kg/m2 MD Jayme Costa Work Phone: [facility] 12-19-2023 13:32-0400 Body temperature 97.8 [degF] MD Jayme Costa Work Phone: [facility] 12-19-2023 13:32-0400 Body weight 122.46 kg MD Jayme Costa Work Phone: [facility] 12-19-2023 13:32-0400 Diastolic blood pressure 90 mm[Hg] MD Jayme Costa Work Phone: [facility] 12-19-2023 13:32-0400 Heart rate 108 /min MD Jayme Costa Work Phone: [facility] 12-19-2023 13:32-0400 Respiratory rate 18 /min MD Jayme Costa Work Phone: [facility] 12-19-2023 13:32-0400 SaO2% (BldA) [Mass fraction] 97 % MD Jayme Costa Work Phone: [facility] 12-19-2023 13:32-0400 Systolic blood pressure 142 mm[Hg] MD Jayme Costa Work Phone: [facility] 09-25-2023 16:39-0500 Body height 167.64 cm MD Jayme Costa Work Phone: [facility] 09-25-2023 16:39-0500 Body mass index (BMI) [Ratio] 41.9 kg/m2 MD Jayme Costa Work Phone: [facility] 09-25-2023 16:39-0500 Body temperature 98.3 [degF] MD Jayme Costa Work Phone: [facility] 09-25-2023 16:39-0500 Body weight 117.93 kg MD Jayme Costa Work Phone: [facility] 09-25-2023 16:39-0500 Heart rate 74 /min MD Jayme Costa Work Phone: [facility] 09-25-2023 16:39-0500 SaO2% (BldA) [Mass fraction] 99 % MD Jayme Costa Work Phone: [facility] 08-29-2023 08:40-0500 Body height 167.6 cm Yoly Chizmadia RETAIL BUSINESS DEVELOPMENT MANAGER.MVA REACTOR OPERATOR Work Phone: [facility] 08-29-2023 08:40-0500 Body weight 121.3 kg Yoly Chizmadia RETAIL BUSINESS DEVELOPMENT MANAGER.MVA REACTOR OPERATOR Work Phone: [facility] 08-29-2023 08:40-0500 Diastolic blood pressure 80 mm[Hg] Yoly Chizmadia RETAIL BUSINESS DEVELOPMENT MANAGER.MVA REACTOR OPERATOR Work Phone: [facility] 08-29-2023 08:40-0500 Heart rate 77 /min Yoly Chizmadia RETAIL BUSINESS DEVELOPMENT MANAGER.MVA REACTOR OPERATOR Work Phone: [facility] 08-29-2023 08:40-0500 Systolic blood pressure 134 mm[Hg] Yoly Chizmadia RETAIL BUSINESS DEVELOPMENT MANAGER.MVA REACTOR OPERATOR Work Phone: [facility] 04-08-2023 12:40-0400 Body height 167.64 cm Erica Perry Other [facility] Other 04-08-2023 12:40-0400 Body mass index (BMI) [Ratio] 40.51 kg/m2 Erica Perry Other [facility] Other 04-08-2023 12:40-0400 Body temperature 98.2 [degF] Erica Perry Other [facility] Other 04-08-2023 12:40-0400 Body weight 113.85 kg Erica Perry Other [facility] Other 04-08-2023 12:40-0400 Diastolic blood pressure 72 mm[Hg] Erica Vicky Other [facility] Other 04-08-2023 12:40-0400 Respiratory rate 18 /min Erica Vicky Other [facility] Other 04-08-2023 12:40-0400 SaO2% (BldA) [Mass fraction] 96 % Erica Vicky Other [facility] Other 04-08-2023 12:40-0400 Systolic blood pressure 116 mm[Hg] Erica Vicky Other [facility] Other 01-28-2023 13:30-0400 Body height 167.64 cm Erica Vicky Other [facility] Other 01-28-2023 13:30-0400 Body mass index (BMI) [Ratio] 45.19 kg/m2 Erica Vicky Other [facility] Other 01-28-2023 13:30-0400 Body temperature 98.4 [degF] Erica Vicky Other [facility] Other 01-28-2023 13:30-0400 Body weight 127.01 kg Erica Vicky Other [facility] Other 01-28-2023 13:30-0400 Diastolic blood pressure 81 mm[Hg] Erica Vicky Other [facility] Other 01-28-2023 13:30-0400 Respiratory rate 18 /min Erica Vicky Other [facility] Other 01-28-2023 13:30-0400 SaO2% (BldA) [Mass fraction] 99 % Erica Perry Other [facility] Other 01-28-2023 13:30-0400 Systolic blood pressure 147 mm[Hg] Erica Perry Other [facility] Other 01-11-2023 13:29-0400 Body temperature 98.2 [degF] Chair Shaneka Work Phone: [facility] 01-11-2023 13:29-0400 Diastolic blood pressure 78 mm[Hg] Chair [place] Work Phone: [facility] 01-11-2023 13:29-0400 Heart rate 79 /min Chair [place] Work Phone: [facility] 01-11-2023 13:29-0400 Respiratory rate 16 /min Chair Shaneka Work Phone: [facility] 01-11-2023 13:29-0400 SaO2% (BldA) [Mass fraction] 97 % Chair Shaneka Work Phone: [facility] 01-11-2023 13:29-0400 Systolic blood pressure 120 mm[Hg] Chair Shaneka Work Phone: [facility] 11-20-2022 15:10-0400 Body height 167.64 cm Carol Ann Lees Other [facility] Other 11-20-2022 15:10-0400 Body mass index (BMI) [Ratio] 41.96 kg/m2 Carol Ann Lees Other [facility] Other 11-20-2022 15:10-0400 Body temperature 99.4 [degF] Carol Ann Lees Other [facility] Other 11-20-2022 15:10-0400 Body weight 117.94 kg Carol Ann Lees Other [facility] Other 11-20-2022 15:10-0400 Diastolic blood pressure 72 mm[Hg] Carol Ann Lees Other [facility] Other 11-20-2022 15:10-0400 Respiratory rate 16 /min Carol Ann Lees Other [facility] Other 11-20-2022 15:10-0400 SaO2% (BldA) [Mass fraction] 99 % Carol Ann Lees Other [facility] Other 11-20-2022 15:10-0400 Systolic blood pressure 135 mm[Hg] Carol Ann Lees Other [facility] Other 09-02-2022 14:31-0500 Body height 167.6 cm Yoly Chizmadia RETAIL BUSINESS DEVELOPMENT MANAGER.MVA REACTOR OPERATOR Work Phone: [facility] 09-02-2022 14:31-0500 Body weight 99.79 kg Yoly Chizmadia RETAIL BUSINESS DEVELOPMENT MANAGER.MVA REACTOR OPERATOR Work Phone: [facility] 09-02-2022 14:31-0500 Diastolic blood pressure 87 mm[Hg] Yoly Chizmadia RETAIL BUSINESS DEVELOPMENT MANAGER.MVA REACTOR OPERATOR Work Phone: [facility] 09-02-2022 14:31-0500 Heart rate 91 /min Yoly Chizmadia RETAIL BUSINESS DEVELOPMENT MANAGER.MVA REACTOR OPERATOR Work Phone: [facility] 09-02-2022 14:31-0500 Systolic blood pressure 135 mm[Hg] Yoly Chizmadia RETAIL BUSINESS DEVELOPMENT MANAGER.MVA REACTOR OPERATOR Work Phone: [facility] 07-27-2022 13:55-0500 Body height 167.64 cm Erica Perry Other [facility] Other 07-27-2022 13:55-0500 Body mass index (BMI) [Ratio] 40.67 kg/m2 Erica Perry Other [facility] Other 07-27-2022 13:55-0500 Body temperature 98.4 [degF] Erica Perry Other [facility] Other 07-27-2022 13:55-0500 Body weight 114.31 kg Erica Perry Other [facility] Other 07-27-2022 13:55-0500 Respiratory rate 18 /min Erica Perry Other [facility] Other 07-27-2022 13:55-0500 SaO2% (BldA) [Mass fraction] 97 % Erica Perry Other [facility] Other 07-13-2022 13:18-0500 Diastolic blood pressure 54 mm[Hg] Chair Shaneka Work Phone: [facility] 07-13-2022 13:18-0500 Heart rate 90 /min Chair Shaneka Work Phone: [facility] 07-13-2022 13:18-0500 Respiratory rate 18 /min Chair Shaneka Work Phone: [facility] 07-13-2022 13:18-0500 SaO2% (BldA) [Mass fraction] 96 % Chair [place] Work Phone: [facility] 07-13-2022 13:18-0500 Systolic blood pressure 118 mm[Hg] Chair [place] Work Phone: [facility] 07-13-2022 12:15-0500 Body temperature 97.81 [degF] Chair Shaneka Work Phone: [facility] 05-24-2022 14:18-0400 Blood Pressure Location Yusuf PETERS [facility] 05-24-2022 14:18-0400 Diastolic blood pressure 80 mm[Hg] Yusuf NILL [facility] 05-24-2022 14:18-0400 Heart rate 70 /min Yusuf NILL [facility] 05-24-2022 14:18-0400 Respiratory rate 16 /min Yusuf NILL General [facility] 05-24-2022 14:18-0400 Systolic blood pressure 118 mm[Hg] Yusuf JINL General [facility] Encounters Encounter Date Encounter Type Care Provider Facility Start: 02-19-2024 End: 02-19-2024 Telemedicine consultation with patient Marielle Garcia APRN.MVA REACTOR OPERATOR Work Phone: [facility] Start: 02-19-2024 End: 02-19-2024 ambulatory Marielle Garcia APRN.MVA REACTOR OPERATOR Work Phone: [facility] Comment on above: Radiculopathy, lumba r region (Primary Dx); Lumbar spondylosis Start: 01-17-2024 End: 01-17-2024 ambulatory Chair 2 Shaneka Work Phone: Hematology/Oncology Comment on above: Multiple sclerosis ( HCC) (Primary Dx) Start: 12-29-2023 End: 12-29-2023 ambulatory JAYME COSTA Facility:[facility] Start: 12-29-2023 End: 12-29-2023 Patient encounter procedure Marielle Garcia APRN.MVA REACTOR OPERATOR Work Phone: [facility] [place] Comment on above: Radiculopathy, lumba r region (Primary Dx); Spinal stenosis, lumbar region, without neurogenic claudication; Lumbar spondylosis; Multiple sclerosis (HCC) Start: 12-19-2023 End: 12-19-2023 ambulatory Shelbie Allred Facility:[facility] Start: 12-19-2023 End: 12-19-2023 ambulatory MD Jayme Costa Work Phone: [facility] Work Phone: Start: 12-19-2023 End: 12-19-2023 Patient encounter procedure MD Jayme Costa Work Phone: [facility] [place] Work Phone: Start: 11-14-2023 End: 11-14-2023 ambulatory JAYME COSTA Facility:[facility] Start: 11-14-2023 End: 11-14-2023 Subsequent hospital visit by physician Anjana uriel May (I-Stat/1.5t) Radiology Comment on above: Multiple sclerosis ( HCC) [G35] Spinal stenosis of l umbar region without neurogenic claudication [M48.061] Start: 10-31-2023 ambulatory Yoly Chizma tiffany RETAIL BUSINESS DEVELOPMENT MANAGER.MVA REACTOR OPERATOR Work Phone: [facility] Start: 10-31-2023 Patient encounter procedure Yoly Chizmadia RETAIL BUSINESS DEVELOPMENT MANAGER.MVA REACTOR OPERATOR Work Phone: [facility] Comment on above: Sciatica Referral Start: 10-29-2023 ambulatory Yoly Chizma tiffany RETAIL BUSINESS DEVELOPMENT MANAGER.MVA REACTOR OPERATOR Work Phone: [facility] Comment on above: Sciatica Start: 09-25-2023 End: 09-25-2023 Patient encounter procedure MD Jayme Costa Work Phone: [facility] [place] Work Phone: Start: 08-29-2023 End: 08-29-2023 ambulatory YOLY CHIZMADIA Facility:[facility] Start: 08-29-2023 End: 08-29-2023 Patient encounter procedure Yoly Chizmadia RETAIL BUSINESS DEVELOPMENT MANAGER.MVA REACTOR OPERATOR Work Phone: [facility] Comment on above: Spinal stenosis of l umbar region without neurogenic claudication (Primary Dx); Multiple sclerosis (HCC) Start: 07-12-2023 End: 07-12-2023 ambulatory JAYME COSTA Facility:[facility] Start: 04-08-2023 End: 04-08-2023 ambulatory Erica Perry Other [place] Other Start: 04-08-2023 Office outpatient vi sit 15 minutes Erica Vicky [facility] Start: 01-28-2023 End: 01-28-2023 ambulatory Erica Vicky Other [place] Other Start: 01-28-2023 Office outpatient vi sit 15 minutes Erica Vicky [facility] Start: 01-23-2023 End: 01-23-2023 ambulatory YOLY CHIZMADIA Facility:[facility] Start: 01-23-2023 End: 01-23-2023 Subsequent hospital visit by physician Anjana Villaseñor (I-Stat/3t) Work Phone: Radiology Comment on above: Multiple sclerosis ( HCC) [G35] Start: 01-11-2023 End: 01-11-2023 ambulatory Chair 2 Shaneka Work Phone: Hematology/Oncology Comment on above: Multiple sclerosis ( HCC) (Primary Dx) Start: 11-20-2022 End: 11-20-2022 ambulatory Carol Ann Lees Other [place] Other Start: 11-20-2022 Office outpatient vi sit 25 minutes Carol Ann Lees [facility] Start: 09-27-2022 Refill Yoly Chizma tiffany RETAIL BUSINESS DEVELOPMENT MANAGER.MVA REACTOR OPERATOR Work Phone: [facility] Comment on above: Refill Request Start: 09-12-2022 Chart abstracting Romario ryan Research Coordinator [facility] Start: 09-02-2022 End: 09-02-2022 Patient encounter procedure Yoly Chizmadia RETAIL BUSINESS DEVELOPMENT MANAGER.MVA REACTOR OPERATOR Work Phone: [facility] Comment on above: Multiple sclerosis ( HCC) (Primary Dx); Encounter for long-term (current) use of medications Start: 07-27-2022 End: 07-27-2022 ambulatory Erica Perry Other [place] Other Start: 07-27-2022 Office outpatient vi sit 25 minutes Erica Perry [facility] [place] Start: 07-14-2022 ambulatory Yoly allen APRNJessieMVA REACTOR OPERATOR Work Phone: [facility] Comment on above: Question regarding C D19 ABSOLUTE COUNT Start: 07-13-2022 End: 07-13-2022 ambulatory Chair 5 Shaneka Work Phone: Hematology/Oncology Comment on above: Multiple sclerosis ( HCC) (Primary Dx) Start: 07-05-2022 End: 07-06-2022 ambulatory Yusuf PETERS Facility:[facility] Start: 07-05-2022 End: 07-05-2022 Patient encounter procedure Yusuf PETERS General Surgery Nill/Said [facility] Start: 06-22-2022 Encounter for preprocedural laboratory examination DR YUSUF PETERS [facility] Start: 06-22-2022 End: 06-23-[address] YUSUF EPTERS Facility:[facility] Start: 06-18-2022 End: 06-19-[address] YUSUF PETERS Facility: Start: 06-18-2022 End: 06-19-2022 Encounter for preprocedural laboratory examination DR YUSUF PETERS Facility: Start: 05-24-2022 End: 05-25-2022 ambulatory JAYME COSTA Facility:[facility] Start: 05-24-2022 End: 05-24-2022 Patient encounter procedure Yusuf PETERS General Surgery Nill/Said [facility] Start: 05-09-2022 Encounter for genera l adult medical examination without abnormal findings DR JAYME COSTA [facility] Start: 05-06-2022 End: 05-07-[address] JAYME COSTA Facility:[facility] Start: 05-06-2022 End: 10-15-2022 Encounter for general adult medical examination without abnormal findings DR JAYME COSTA Facility:[facility] Start: 04-20-2022 ambulatory Yusuf PETERS Facility : [facility] Start: 03-11-2022 ambulatory Clau Castrejon ty:[facility] Start: 11-14-2021 End: 11-14-2021 [facility] department [facility] Start: 11-09-2021 Refill Autumn Aguilar MD Work Phone: [facility] Comment on above: Urine Bacteria Start: 2021 End: 2021 Subsequent hospital visit by physician Anjana Villaseñor (I-Stat/3t) Work Phone: Radiology Comment on above: Multiple sclerosis ( HCC) [G35] Start: 11-01-2021 ambulatory Yoly allen RETAIL BUSINESS DEVELOPMENT MANAGER.MVA REACTOR OPERATOR Work Phone: [facility] Comment on above: Reply to bladder iss ues Start: 09-23-2021 End: 09-24-2021 ambulatory [facility] Procedures Date Procedure Procedure Detail Performing Clinician Start: 01-17-2024 Blood count complete auto&auto difrntl wbc Yoly Chizmadia RETAIL BUSINESS DEVELOPMENT MANAGER.MVA REACTOR OPERATOR Work Phone: Start: 12-19-2023 Plain chest X-ray MD Jayme Costa Work Phone: Start: 11-14-2023 Mri brain brain stem w/o w/contrast material Yoly Chizmadia RETAIL BUSINESS DEVELOPMENT MANAGER.MVA REACTOR OPERATOR Work Phone: Start: 01-23-2023 BRAIN & CERVICAL SPINE MRI DISCRETE DATA [facility] Provider Start: 01-23-2023 Mri brain brain stem w/o w/contrast material Yoly Chizmadia RETAIL BUSINESS DEVELOPMENT MANAGER.MVA REACTOR OPERATOR Work Phone: Start: 06-22-2022 Colonoscopy Yusuf PETERS Start: 06-22-2022 Esophagogastroduodenoscopy Yusuf PETERS Start: 2021 BRAIN & CERVICAL SPINE MRI DISCRETE DATA [facility] Provider Start: 2021 Mri brain brain stem w/o w/contrast material Yoly Blancas ONEIDA.MVA REACTOR OPERATOR Work Phone: Start: 08-03-2021 Adult depression screening assessment Yoly Harristiffany LOWERYMVA REACTOR OPERATOR Work Phone: Cholecystectomy Yusuf NILDeon Esophagogastroduodenoscopy M agustin NILL Removal of pilonidal cyst Leonor rodrigues NILL Tonsillectomy Yusuf NILL Plan of Treatment Date Care Activity Detail Author Start: 07-15-2024 End: 07-15-2024 ambulatory 07/15/2024 9:00 AM EST [facility] [address] [place] [address] [place] [address] [facility] Comment on above: [facility] Start: 05-27-2024 End: 05-27-2024 Follow-up encounter 05/27/2024 4:30 PM EST [facility] [address] [id number] Marielle Garcia, RETAIL BUSINESS DEVELOPMENT MANAGER.MVA REACTOR OPERATOR [address] [place] [address] 3 mo virtual follow up [facility] Comment on above: 3 mo virtual follow up Start: 03-24-2024 Influenza vaccination [facility] Start: 02-19-2024 End: 02-19-2024 ambulatory 02/19/2024 3:00 PM EDT [facility] [place] [address] [place] [address] Marielle Garcia, RETAIL BUSINESS DEVELOPMENT MANAGER.MVA REACTOR OPERATOR [address] [place] [address] 8 week f/u with provider. [facility] Comment on above: 8 week f/u with prov ider. Start: 01-17-2024 End: 04-17-2024 CD19 ABSOLUTE COUNT [facility] Work Phone: Comment on above: Expected: 01/17/2024 , Expires: 04/17/2024 Start: 01-17-2024 End: 01-17-2024 ambulatory 01/17/2024 9:00 AM EDT [facility] H[facility]On[facility] [address] [place] [address] [place] [address] [facility] Comment on above: [facility] Start: 12-29-2023 End: 12-29-2023 Patient encounter procedure 12/29/2023 1:50 PM EDT Office Visit [facility] [place] [address] [id number] Marielle Garcia, ONEIDA.MVA REACTOR OPERATOR [address] [place] [address] slipped disc [facility] [place] Comment on above: slipped disc Start: 07-24-2023 Behavioral Health Screening Behavioral Health Screening [facility] Start: 07-24-2023 Depression Assessment Depression Ass essment [facility] Start: 03-24-2023 Covid-19 Vaccine ( season) Covid-19 Vaccine ( season) [facility] Start: 03-24-2023 Influenza vaccination [facility] Start: 01-11-2023 End: 03-13-2023 CD19 ABSOLUTE COUNT [facility] Work Phone: Comment on above: Expected: 01/11/2023 , Expires: 03/13/2023 Start: 08-03-2022 Adult depression screening assessment DEPRESSION SCREENING [facility] Start: 07-24-2022 DEPRESSION ASSESSMENT DEPRESSION ASS ESSMENT [facility] Start: 07-13-2022 End: 09-12-2022 CD19 ABSOLUTE COUNT [facility] Work Phone: Comment on above: Expected: 07/13/2022 , Expires: 09/12/2022 Start: 03-24-2022 Influenza vaccination [facility] Start: 11-01-2021 End: 01-01-2022 Bacteria identified in Urine by Culture URINE CULTURE Microbiology Routine Multiple sclerosis (HCC) Expected: 11/01/2021, Expires: 01/01/2022 [facility] Work Phone: Comment on above: Expected: 11/01/2021 , Expires: 01/01/2022 Start: 11-01-2021 End: 01-01-2022 URINALYSIS, DIPSTICK ONLY URINALYSIS, DIPSTICK ONLY Lab Routine Multiple sclerosis ([facility]) Expected: 11/01/2021, Expires: 01/01/2022 [facility] Work Phone: Comment on above: Expected: 11/01/2021 , Expires: 01/01/2022 Start: 07-24-2021 DEPRESSION ASSESSMENT DEPRESSION ASS ESSMENT [facility] Start: 06-19-2021 COVID-19 VACCINE (3 - Booster for Pfizer series) COVID-19 VACCINE (3 - Booster for Pfizer series) [facility] Start: 01-19-2020 Urine microalbumin profile DTaP,Tdap,Td Vaccine (7 - Td or Tdap) [facility] Start: 2018 PAP TESTING PAP TESTING [facility] Start: 2018 Screening for malign ant neoplasm of cervix [facility] Start: 2016 Urine microalbumin profile DTAP,TDAP,TD (1 - Tdap) [facility] Start: 11-06-2015 Anxiety Screening Anxiety Screening [facility] Start: 11-06-2015 CHLAMYDIA SCREENING (18-24) CHLAMYDIA SCREENING (18-24) [facility] Start: 11-06-2015 Depression Screening Depression Scre ening [facility] Start: 11-06-2015 GC (GONORRHEA) SCREE ALEX (18-24) GC (GONORRHEA) SCREENING (18-24) [facility] Start: 2012 HPV Vaccine (1 - 3-d ose series) HPV Vaccine (1 - 3-dose series) [facility] Start: 11-06-2011 PEDS TO ADULT TRANSI TION ANNUAL ASSESSMENT PEDS TO ADULT TRANSITION ANNUAL ASSESSMENT [facility] Start: 2009 PEDS TO ADULT TRANSI TION INITIAL DISCUSSION PEDS TO ADULT TRANSITION INITIAL DISCUSSION [facility] Start: 2008 HPV VACCINE (1 - 2-d ose series) HPV VACCINE (1 - 2-dose series) [facility] Start: 11-06-2007 MENINGOCOCCAL B: Consider based on risk (1 of 2 - Risk Bexsero 2-dose series) MENINGOCOCCAL B: Consider based on risk (1 of 2 - Risk Bexsero 2-dose series) [facility] Start: 2006 HPV VACCINE (1 - 2-d ose series) HPV VACCINE (1 - 2-dose series) [facility] Start: 2002 COVID-19 VACCINE (1) COVID-19 VACCIN E (1) [facility] Start: 1997 HEPATITIS B (1 of 3 - 3-dose series) HEPATITIS B (1 of 3 - 3-dose series) [facility] End: 10-02-2023 Mri brain brain stem w/o w/contrast material MRI BRAIN WO/W IVCON Radiology Routine Multiple sclerosis (HCC) Encounter for long-term (current) use of medications 1 Occurrences starting 09/02/2022 until 10/02/2023 [facility] Work Phone: Comment on above: 1 Occurrences starti ng 09/02/2022 until 10/02/2023 End: 10-02-2023 Mri spinal canal cervical w/o & w/contr matrl MRI CERVICAL SPINE WO/W IVCON Radiology Routine Multiple sclerosis (HCC) Encounter for long-term (current) use of medications 1 Occurrences starting 09/02/2022 until 10/02/2023 [facility] Work Phone: Comment on above: 1 Occurrences starti ng 09/02/2022 until 10/02/2023 End: 09-27-2024 Mri spinal canal lumbar w/o contrast material MRI LUMBAR SPINE WO IVCON Radiology Routine Spinal stenosis of lumbar region without neurogenic claudication 1 Occurrences starting 08/29/2023 until 09/27/2024 [facility] Work Phone: Comment on above: 1 Occurrences starti ng 08/29/2023 until 09/27/2024 End: 01-27-2025 XR Lumbar spine 3 Views XR LUMBAR GENERAL 3V AP/LAT/L5-S1 Radiology Routine Radiculopathy, lumbar region Spinal stenosis, lumbar region, without neurogenic claudication Lumbar spondylosis 1 Occurrences starting 12/29/2023 until 01/27/2025 [facility] Work Phone: Comment on above: 1 Occurrences starti ng 12/29/2023 until 01/27/2025 [facility] Immunizations Immunization Date Immunization Notes Care Provider Fa cility 04-24-2021 SARS-CoV-2 (COVID-19 ) mRNA BNT-162b2 vax Yusuf BroadLightL [facility] Comment on above: Result Comment: 2021: [facility] 04-01-2021 SARS-CoV-2 (COVID-19 ) mRNA BNT-162b2 vax ChemoCentryxL [facility] Comment on above: Result Comment: 2021: [facility] Payers Date Payer Category Payer Self-pay 2023 Medicaid [id number] 2023 Medicaid [id number] 2017 Unknown [employer] PPO OOS [id number] 2017-Present [phone] [address] [place] [address] PPO [id number] 2017 Unknown 1997 Unknown [id number] 196 1997 Unknown [id number]. 196 1997 Unknown [id number]. 593 1997 Unknown [id number] [id number]. 593 1997 Unknown [id number] [id number]. 593 1997 Unknown [id number] [id number]. 727 1997 Unknown [id number]. 727 1997 Unknown [id number] [id number]. 727 1997 Unknown [id number] [id number]. 727 1962 Unknown [id number] 727 1959 Unknown [id number] Private Health Insurance [facility] Insurance Co [id number] Unknown [id number] 531 Social History Date Type Detail Facility Start: 09-09-2013 End: 09-02-2022 Tobacco smoking status NHIS Never smoked tobacco [facility] Start: 09-09-2013 End: 09-02-2022 Tobacco use and exposure Smokeless tobacco non-user [facility] Start: 08-03-2021 End: 12-29-2023 Alcohol intake Current non-drinker of alcohol (finding) [facility] Start: 1997 Sex Assigned At Female [facility] Start: 10-26-2021 End: 2021 Exposure to SARS-CoV-2 (event) Not sure [facility] Tobacco smoking status Smokeless tobacco user within last 30 days [facility] Start: 01-11-2023 End: 08-29-2023 Sex Assigned At Female [facility] History of tobacco use Passive smoker [facility] Start: 01-11-2023 End: 08-29-2023 History of Social function [facility] Start: 07-21-2021 Gender identity Identifies as female gender (finding) [facility] Start: 07-21-2021 Sexual orientation Heterosexual (christo trinidad) [facility] Start: 09-25-2023 Tobacco smoking stat us NMIS Unknown if ever smoked [facility] Functional Status Date Assessment Result Facility 05-24-2022 Functional Status N/A General 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 Author Type: Nurse Practitioner Type: Progress Notes Filed: 02/19/2024 15:01 Note Text: [facility] Low Back Pain - Chronic (> 12 weeks) Initial Exam SUBJECTIVE HISTORY OF PRESENT ILLNESS: Natalie Jaquez is a 28 year old female who presents with a chief complaint of low back and leg pain and is seen in consultation requested by SELF Patient with PMH MS presents with back and left leg pain. Denies accident/injury Pain localized to lower lumbar spine into left leg Pain described as aching, radiating Radiation: left buttock and back of the leg Numbness/Tingling: none consistent Sleep ok Some bladder dysfunction Pain worse with increased Pain improved with rest Interventions: meds, stretches Medications: Baclofen, tylenol, aleve Prevoiusly on: medrol salma, methocarbanol Physical Therapy: stretching HEP, none formal History of Spine Injections/Surgery: None Hx: bipolar, MS, morbid obesity CC: back and leg I have communicated my name and active licensure. The patient's identity and physical location were verified at the time of this visit. 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 Patient follows up VIA VIRTUAL VISIT for chronic back and left leg pain. Patient with ongoing stable symptoms. Meds: has not started gabapentin or relafen. Was scared to start them. Is going to consider. Physical therapy: hasn't been able to start. Is going to call today to schedule Other Issues Addressed at the Visit Today: None. Precipitating Event: None PAIN EVALUATION No data found in the last 1 encounters. Litigation: No Workers' Compensation: No YELLOW AND BLUE FLAGS No-Neg Attitude; Back Pain is Disabling No-Avoiding Activity (for Fear of Pain) No-Depression or Anxiety Disorders No-Social Problems No-Substance Use Disorder No-Job Dissatisfaction No-Financial Disincentives Patient Entered Questionnaires 12/25/2023 Spine Questions Pain Location: Lower back Pain Duration: 3-6 months Pain over last 6 months: At least half the days in the past 6 months Symptoms from neck/cervical spine: No Employment Status: Working now Involved in law suit/legal claim: No 12/25/2023 Spine Red Flags Any type of cancer: No Unexplained fever: No Bowel or bladder disfunction: Yes Unintentional weight loss: No Osteoporosis: No PROMIS Score Percentiles 12/25/2023 Physical Health Physical Function Percentile 8 Sleep Percentile 69 Fatigue Percentile 1 Pain Interference Percentile 4 12/25/2023 PROMIS SOCIAL ROLE SCORE Social Role Satisfaction Percentile 69 01/29/2022 08/31/2022 12/25/2023 PROMIS Global Health Scale Physical Health Percentile 31 7 10 Mental Health Percentile 34 43 43 Percentiles provide an indication of how the patient's score ranks in relation to the general population. Higher percentile rankings indicate better function/quality of life. 50th percentile is the average of the general population and indicates half of respondents had a worse score. 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) Multiple Sclerosis (Hcc) Bladder Dysfunction Backache Anemia Iron Deficiency Anemia Headache Memory Disorder Frequent Uti Migraine Without Aura and Without Status Migrainosus, Not Intractable History of Pcos Encounter for Long-Term (Current) Use of Medications PAST MEDICAL HISTORY Diagnosis Date Multiple sclerosis (HCC) Myopia Bilateral Wears glasses PAST SURGICAL HISTORY Procedure Laterality Date REMOVAL GALLBLADDER THERAPEUTIC SPINAL PUNCTURE DRAINAGE CSF 10/31/2013 TONSILLECTOMY HX Social History Tobacco Use Smoking status: Never Passive exposure: Yes Smokeless tobacco: Never Vaping Use Vaping Use: current everyday user Substance Use Topics Alcohol use: No Drug use: No FAMILY HISTORY Problem Relation Age of Onset No Ocular Disease Other COPD Mother other (crohns) Mother Diabetes Father ALLERGIES Allergen Reactions Avonex [Interferon * Hives, Shortness of Breath Pt was seen at ED for bronchospasms, hives and treated. Copaxone [Glatirame* Rash CURRENT MEDICATIONS: nabumetone (RELAFEN) 500 mg table (more content not included)... [facility] 02-19-2024 History of Presen t illness Narrative [facility] Low Back Pain - Chronic (> 12 weeks) Initial Exam SUBJECTIVE HISTORY OF PRESENT ILLNESS: Natalie Jaquez is a 28 year old female who presents with a chief complaint of low back and leg pain and is seen in consultation requested by SELF Patient with PMH MS presents with back and left leg pain. Denies accident/injury Pain localized to lower lumbar spine into left leg Pain described as aching, radiating Radiation: left buttock and back of the leg Numbness/Tingling: none consistent Sleep ok Some bladder dysfunction Pain worse with increased Pain improved with rest Interventions: meds, stretches Medications: Baclofen, tylenol, aleve Prevoiusly on: medrol salma, methocarbanol Physical Therapy: stretching HEP, none formal History of Spine Injections/Surgery: None Hx: bipolar, MS, morbid obesity CC: back and leg I have communicated my name and active licensure. The patient's identity and physical location were verified at the time of this visit. 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 Patient follows up VIA VIRTUAL VISIT for chronic back and left leg pain. Patient with ongoing stable symptoms. Meds: has not started gabapentin or relafen. Was scared to start them. Is going to consider. Physical therapy: hasn't been able to start. Is going to call today to schedule Other Issues Addressed at the Visit Today: None. Precipitating Event: None PAIN EVALUATION No data found in the last 1 encounters. Litigation: No Workers' Compensation: No YELLOW & BLUE FLAGS No-Neg Attitude; Back Pain is Disabling No-Avoiding Activity (for Fear of Pain) No-Depression or Anxiety Disorders No-Social Problems No-Substance Use Disorder No-Job Dissatisfaction No-Financial Disincentives Patient Entered Questionnaires 12/25/2023 Spine Questions Pain Location: Lower back Pain Duration: 3-6 months Pain over last 6 months: At least half the days in the past 6 months Symptoms from neck/cervical spine: No Employment Status: Working now Involved in law suit/legal claim: No 12/25/2023 Spine Red Flags Any type of cancer: No Unexplained fever: No Bowel or bladder disfunction: Yes Unintentional weight loss: No Osteoporosis: No PROMIS Score Percentiles 12/25/2023 Physical Health Physical Function Percentile 8 Sleep Percentile 69 Fatigue Percentile 1 Pain Interference Percentile 4 12/25/2023 PROMIS SOCIAL ROLE SCORE Social Role Satisfaction Percentile 69 01/29/2022 08/31/2022 12/25/2023 PROMIS Global Health Scale Physical Health Percentile 31 7 10 Mental Health Percentile 34 43 43 Percentiles provide an indication of how the patient's score ranks in relation to the general population. Higher percentile rankings indicate better function/quality of life. 50th percentile is the average of the general population and indicates half of respondents had a worse score. 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) Multiple Sclerosis (Hcc) Bladder Dysfunction Backache Anemia Iron Deficiency Anemia Headache Memory Disorder Frequent Uti Migraine Without Aura and Without Status Migrainosus, Not Intractable History of Pcos Encounter for Long-Term (Current) Use of Medications PAST MEDICAL HISTORY Diagnosis Date Multiple sclerosis (HCC) Myopia Bilateral Wears glasses PAST SURGICAL HISTORY Procedure Laterality Date REMOVAL GALLBLADDER THERAPEUTIC SPINAL PUNCTURE DRAINAGE CSF 10/31/2013 TONSILLECTOMY HX Social History Tobacco Use Smoking status: Never Passive exposure: Yes Smokeless tobacco: Never Vaping Use Vaping Use: current everyday user Substance Use Topics Alcohol use: No Drug use: No FAMILY HISTORY Problem Relation Age of Onset No Ocular Disease Other COPD Mother other (crohns) Mother Diabetes Father ALLERGIES Allergen Reactions Avonex [Interferon * Hives, Shortness of Breath Pt was seen at ED for bronchospasms, hives and treated. Copaxone [Glatirame* Rash CURRENT MEDICATIONS: nabumetone (RELAFEN) 500 mg tablet Take 1 tablet by mouth two times a day as needed. gabapentin (NEURONTIN) 100 mg capsule Take 1 capsule by mouth two times a day for 90 days. venlafaxine ER (EFFEXOR XR) 150 mg 24 hr capsule Take 1 capsule by mouth every afternoon. dextroamphetamine-amphetamine (ADDERALL) 20 mg tablet Take by mouth. baclofen (LIORESAL) 10 mg tablet Take 1 tablet by mouth at bedtime as needed. Take 1 tablet by mouth before bed daily ARIPiprazole (ABILIFY) 10 mg tablet TAKE 1 TABLET BY MOUTH EVERYDAY AT BEDTIME Amphetamine-Dextroamphetamine (ADDERALL) 30 mg tablet Take 30 mg by mouth once daily. Cholecalciferol, Vitamin D3, 2,000 unit cap TAKE ONE CAPSULE BY MOUTH EVERY DAY ferrous sulfate 325 mg (65 mg iron) tablet Take 1 tablet by mouth twice daily. NORGESTIMATE-ETHINYL ESTRADIOL (TRI-PREVIFEM, 28, ORAL) Take by mouth. levothyroxine (SYNTHROID) 75 mcg tablet Take 75 mcg by mouth daily before breakfast. REVIEW OF SYSTEMS: PAIN ASSESSMENT: See HPI. GENERAL: Denies fever, chills malaise and weight loss. HEENT: No recent change in vision or hearing. CARDIOVASCULAR: Denies chest pain, history of A-fib, valvular disease, or pacemaker/ICD. RESPIRATORY: Denies SOB, sputum production, and hemoptysis. GI: Denies GI ulcers, inflammatory disease, or liver disease. : +bladder issues MUSCULOSKELETAL: Positive for See HPI SKIN: Denies rash or itching. PSYCHOLOGICAL: Denies uncontrolled depression or anxiety. NEURO: Headaches ENDOCRINE: hypothyroid HEMATOLOGY/LYMPHOLOGY: Denies cancer, bleeding or clotting disorders, anemia,and DVT's. ALLERGIC/IMMUNOLOGICAL: Denies risks for infection, or recent MRSA infections. OBJECTIVE: PHYSICAL EXAM LMP 08/29/2023 (Exact Date) GENERAL APPEARANCE: overweight/obese SKIN: Head, neck, trunk, and extremities dry, intact and without lesions LUNGS: even and non-labored breathing, normal chest excursion NEURO/PSYCH: oriented to time, place, and person, speech normal, mental status intact Neuro Tests: None Data Review: [facility] records independently reviewed MRI Lumbar 11/14/23: Discogenic degenerative changes at L4-L5 and L5-S1 with annular fissures resulting in varying degrees of spinal stenosis, as described above. ASSESSMENT/PLAN Radiculopathy, lumbar region (primary encounter diagnosis) Lumbar spondylosis Patient with ongoing back and left leg pain. MRI with stenosis and foraminal narrowing. Recommend PT program and trial of meds. Injection if no improvement. Discussed weight reduction and core strength in regards to ongoing spine health. 1. Imaging: none 2. Physical Therapy: start PT 3. Medication: relafen and low dose gabapentin if tolerated. 4. Referrals: PT 5. Considerations: obtain xray, Left L5-S1 TFESI 6. Follow up: 3 mth VV I spent a total of 10 minutes on the date of the service which included preparing to see the patient, [id number] patient care, completing clinical documentation, obtaining and/or reviewing separately obtained history, and counseling and educating the patient/family/caregiver. documented in this encounter [facility] 12-29-2023 Note HNO ID: [id number] Author: MARIELLE GRACIA APRN.CNP Service: ? Author Type: Nurse Practitioner Type: Progress Notes Filed: 12/29/2023 14:36 Note Text: Spine Care Path Low Back Pain - Chronic (> 12 weeks) Initial Exam SUBJECTIVE HISTORY OF PRESENT ILLNESS: Natalie Jaquez is a 28 year old female who presents with a chief complaint of low back and leg pain and is seen in consultation requested by SELF Patient with PMH MS presents with back and left leg pain. Denies accident/injury Pain localized to lower lumbar spine into left leg Pain described as aching, radiating Radiation: left buttock and back of the leg Numbness/Tingling: none consistent Sleep ok Some bladder dysfunction Pain worse with increased Pain improved with rest Interventions: meds, stretches Medications: Baclofen, tylenol, aleve Prevoiusly on: medrol salma, methocarbanol Physical Therapy: stretching HEP, none formal History of Spine Injections/Surgery: None Hx: bipolar, MS, morbid obesity Other Issues Addressed at the Visit Today: None. Precipitating Event: None PAIN EVALUATION 12/25/20232008 Pain Level: 6 Description: Aching;Numbness;Shooting Duration Amount of Time: 4 Duration Units: Months Frequency: Intermittent Intervention/Comfort measure: Medication;Relaxation Litigation: No Workers' Compensation: No YELLOW AND BLUE FLAGS No-Neg Attitude; Back Pain is Disabling No-Avoiding Activity (for Fear of Pain) No-Depression or Anxiety Disorders No-Social Problems No-Substance Use Disorder No-Job Dissatisfaction No-Financial Disincentives Patient Entered Questionnaires 12/25/2023 Spine Questions Pain Location: Lower back Pain Duration: 3-6 months Pain over last 6 months: At least half the days in the past 6 months Symptoms from neck/cervical spine: No Employment Status: Working now Involved in law suit/legal claim: No 12/25/2023 Spine Red Flags Any type of cancer: No Unexplained fever: No Bowel or bladder disfunction: Yes Unintentional weight loss: No Osteoporosis: No PROMIS Score Percentiles 12/25/2023 Physical Health Physical Function Percentile 8 Sleep Percentile 69 Fatigue Percentile 1 Pain Interference Percentile 4 12/25/2023 PROMIS SOCIAL ROLE SCORE Social Role Satisfaction Percentile 69 01/29/2022 08/31/2022 12/25/2023 PROMIS Global Health Scale Physical Health Percentile 31 7 10 Mental Health Percentile 34 43 43 Percentiles provide an indication of how the patient's score ranks in relation to the general population. Higher percentile rankings indicate better function/quality of life. 50th percentile is the average of the general population and indicates half of respondents had a worse score. 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) Multiple Sclerosis (Hcc) Bladder Dysfunction Backache Anemia Iron Deficiency Anemia Headache Memory Disorder Frequent Uti Migraine Without Aura and Without Status Migrainosus, Not Intractable History of Pcos Encounter for Long-Term (Current) Use of Medications PAST MEDICAL HISTORY Diagnosis Date Multiple sclerosis (HCC) Myopia Bilateral Wears glasses PAST SURGICAL HISTORY Procedure Laterality Date REMOVAL GALLBLADDER THERAPEUTIC SPINAL PUNCTURE DRAINAGE CSF 10/31/2013 TONSILLECTOMY HX Social History Tobacco Use Smoking status: Never Passive exposure: Yes Smokeless tobacco: Never Vaping Use Vaping Use: current everyday user Substance Use Topics Alcohol use: No Drug use: No FAMILY HISTORY Problem Relation Age of Onset No Ocular Disease Other COPD Mother other (crohns) Mother Diabetes Father ALLERGIES Allergen Reactions Avonex [Interferon * Hives, Shortness of Breath Pt was seen at ED for bronchospasms, hives and treated. Copaxone [Glatirame* Rash CURRENT MEDICATIONS: venlafaxine ER (EFFEXOR XR) 150 mg 24 hr capsule Take 1 capsule by mouth every afternoon. dextroamphetamine-amphetamine (ADDERALL) 20 mg tablet Take by mouth. baclofen (LIORESAL) 10 mg tablet Take 1 tablet by mouth at bedtime as needed. Take 1 tablet by mouth before bed daily ARIPiprazole (ABILIFY) 10 mg tablet TAKE 1 TABLET BY MOUTH EVERYDAY AT BEDTIME Amphetamine-Dextroamphetamine (ADDERALL) 30 mg tablet Take 30 mg by mouth once daily. Cholecalciferol, Vitamin D3, 2,000 unit cap TAKE ONE CAPSULE BY MOUTH EVERY DAY (more content not included)... [facility] 12-29-2023 History of Presen t illness Narrative Images from the original note were not included. Spine Care Path Low Back Pain - Chronic (> 12 weeks) Initial Exam SUBJECTIVE HISTORY OF PRESENT ILLNESS: Natalie Jaquez is a 28 year old female who presents with a chief complaint of low back and leg pain and is seen in consultation requested by SELF Patient with PMH MS presents with back and left leg pain. Denies accident/injury Pain localized to lower lumbar spine into left leg Pain described as aching, radiating Radiation: left buttock and back of the leg Numbness/Tingling: none consistent Sleep ok Some bladder dysfunction Pain worse with increased Pain improved with rest Interventions: meds, stretches Medications: Baclofen, tylenol, aleve Prevoiusly on: medrol salma, methocarbanol Physical Therapy: stretching HEP, none formal History of Spine Injections/Surgery: None Hx: bipolar, MS, morbid obesity Other Issues Addressed at the Visit Today: None. Precipitating Event: None PAIN EVALUATION 12/25/20232008 Pain Level: 6 Description: Aching;Numbness;Shooting Duration Amount of Time: 4 Duration Units: Months Frequency: Intermittent Intervention/Comfort measure: Medication;Relaxation Litigation: No Workers' Compensation: No YELLOW & BLUE FLAGS No-Neg Attitude; Back Pain is Disabling No-Avoiding Activity (for Fear of Pain) No-Depression or Anxiety Disorders No-Social Problems No-Substance Use Disorder No-Job Dissatisfaction No-Financial Disincentives Patient Entered Questionnaires 12/25/2023 Spine Questions Pain Location: Lower back Pain Duration: 3-6 months Pain over last 6 months: At least half the days in the past 6 months Symptoms from neck/cervical spine: No Employment Status: Working now Involved in law suit/legal claim: No 12/25/2023 Spine Red Flags Any type of cancer: No Unexplained fever: No Bowel or bladder disfunction: Yes Unintentional weight loss: No Osteoporosis: No PROMIS Score Percentiles 12/25/2023 Physical Health Physical Function Percentile 8 Sleep Percentile 69 Fatigue Percentile 1 Pain Interference Percentile 4 12/25/2023 PROMIS SOCIAL ROLE SCORE Social Role Satisfaction Percentile 69 01/29/2022 08/31/2022 12/25/2023 PROMIS Global Health Scale Physical Health Percentile 31 7 10 Mental Health Percentile 34 43 43 Percentiles provide an indication of how the patient's score ranks in relation to the general population. Higher percentile rankings indicate better function/quality of life. 50th percentile is the average of the general population and indicates half of respondents had a worse score. 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) Multiple Sclerosis (Hcc) Bladder Dysfunction Backache Anemia Iron Deficiency Anemia Headache Memory Disorder Frequent Uti Migraine Without Aura and Without Status Migrainosus, Not Intractable History of Pcos Encounter for Long-Term (Current) Use of Medications PAST MEDICAL HISTORY Diagnosis Date Multiple sclerosis (HCC) Myopia Bilateral Wears glasses PAST SURGICAL HISTORY Procedure Laterality Date REMOVAL GALLBLADDER THERAPEUTIC SPINAL PUNCTURE DRAINAGE CSF 10/31/2013 TONSILLECTOMY HX Social History Tobacco Use Smoking status: Never Passive exposure: Yes Smokeless tobacco: Never Vaping Use Vaping Use: current everyday user Substance Use Topics Alcohol use: No Drug use: No FAMILY HISTORY Problem Relation Age of Onset No Ocular Disease Other COPD Mother other (crohns) Mother Diabetes Father ALLERGIES Allergen Reactions Avonex [Interferon * Hives, Shortness of Breath Pt was seen at ED for bronchospasms, hives and treated. Copaxone [Glatirame* Rash CURRENT MEDICATIONS: venlafaxine ER (EFFEXOR XR) 150 mg 24 hr capsule Take 1 capsule by mouth every afternoon. dextroamphetamine-amphetamine (ADDERALL) 20 mg tablet Take by mouth. baclofen (LIORESAL) 10 mg tablet Take 1 tablet by mouth at bedtime as needed. Take 1 tablet by mouth before bed daily ARIPiprazole (ABILIFY) 10 mg tablet TAKE 1 TABLET BY MOUTH EVERYDAY AT BEDTIME Amphetamine-Dextroamphetamine (ADDERALL) 30 mg tablet Take 30 mg by mouth once daily. Cholecalciferol, Vitamin D3, 2,000 unit cap TAKE ONE CAPSULE BY MOUTH EVERY DAY ferrous sulfate 325 mg (65 mg iron) tablet Take 1 tablet by mouth twice daily. NORGESTIMATE-ETHINYL ESTRADIOL (TRI-PREVIFEM, 28, ORAL) Take by mouth. levothyroxine (SYNTHROID) 75 mcg tablet Take 75 mcg by mouth daily before breakfast. REVIEW OF SYSTEMS: PAIN ASSESSMENT: See HPI. GENERAL: Denies fever, chills malaise and weight loss. HEENT: No recent change in vision or hearing. CARDIOVASCULAR: Denies chest pain, history of A-fib, valvular disease, or pacemaker/ICD. RESPIRATORY: Denies SOB, sputum production, and hemoptysis. GI: Denies GI ulcers, inflammatory disease, or liver disease. : +bladder issues MUSCULOSKELETAL: Positive for See HPI SKIN: Denies rash or itching. PSYCHOLOGICAL: Denies uncontrolled depression or anxiety. NEURO: Headaches ENDOCRINE: hypothyroid HEMATOLOGY/LYMPHOLOGY: Denies cancer, bleeding or clotting disorders, anemia,and DVT's. ALLERGIC/IMMUNOLOGICAL: Denies risks for infection, or recent MRSA infections. OBJECTIVE: PHYSICAL EXAM BP 141/99 Pulse 91 Resp 17 Ht 167.6 cm (5' 6 ) Wt 124.4 kg (274 lb 4 oz) LMP 08/29/2023 (Exact Date) SpO2 95% BMI 44.27 kg/m GENERAL APPEARANCE: overweight/obese SKIN: Head, neck, trunk, and extremities dry, intact and without lesions LUNGS: even and non-labored breathing, normal chest excursion NEURO/PSYCH: oriented to time, place, and person, speech normal, mental status intact GAIT: normal, toe walking normal, heel walking normal POSTURE: Posture and spinal curves are normal PALPATION: no palpable subluxation or step-off MUSCULOSKELETAL: Extended Low Back & Leg Exam Lumbar Range of Motion Flexion 10-12 inches from floor Extension Normal RIGHT LEFT Lateral Bending Full w pain Full Leg Raise Straight Leg Raise Negative Negative Contralateral Straight Leg Raise Negative Negative DTRs Knee Normal Normal Ankle Normal Normal Strength of Lower Extremities Extensor Hallux Longus 5/5 5/5 Ankle Dorsiflexion 5/5 5/5 Ankle Plantarflexion 5/5 5/5 Knee Extension 5/5 5/5 Krupa's Exam: Deferred Hip Range of Motion RIGHT LEFT Flexion Normal Normal Extension Normal Normal Abduction Normal Normal Adduction Normal Normal Internal Rotation Normal Normal External Rotation Normal Normal Hip Exam RIGHT LEFT MARIAH Exam Normal Normal Trochanteric Bursa Tenderness Normal Normal Gaenslen's Maneuver Normal Normal Rah's Test (IT-Band Pathology) Normal Normal NEUROSENSORY: Soft touch; mildly decreased left leg. Normal bilateral feet Neuro Tests: None Data Review: [facility] records independently reviewed MRI Lumbar 11/14/23: Discogenic degenerative changes at L4-L5 and L5-S1 with annular fissures resulting in varying degrees of spinal stenosis, as described above. ASSESSMENT/PLAN Radiculopathy, lumbar region (primary encounter diagnosis) Spinal stenosis, lumbar region, without neurogenic claudication Lumbar spondylosis Multiple sclerosis (hcc) Patient with ongoing back and left leg pain. MRI with stenosis and foraminal narrowing. Recommend PT program and trial of meds. Injection if no improvement. Discussed weight reduction and core strength in regards to ongoing spine health. 1. Imaging: xr lumbar 2. Physical Therapy: consult PT 3. Medication: trial relafen BID prn, gabapentin 100mg BID- start at night to assess for side effects. 4. Referrals: PT 5. Considerations: Left L5-S1 TFESI 6. Follow up: 6-8 week virtual visit Medical Decision Making: Level: 4 - Moderate SIGNATURE: Marielle Garcia APRN.CNP PATIENT NAME: Natalie Jaquez DATE: December 29, 2023 TIME: 1:37 PM documented in this encounter [facility] 11-14-2023 History of Presen t illness Narrative Radiology Service Progress Note DATE OF SERVICE: November 14, 2023 TIME: 12:40 PM PATIENT WEIGHT: 267 LBS PATIENT IDENTITY VERIFICATION COMPLETED USING TWO (2) STANDARD IDENTIFIERS: Name and Date of confirmed by patient verbally. FALL SCREENING: Has the patient had 2 falls in the last year or 1 fall with injury or currently using an Ambulatory Assistive Device (Walker, Cane, Wheelchair, Crutches, etc.)? No PATIENT GENDER DATA: Female. status: : No status: NO. ALLERGIES: Reviewed and unchanged CONTRAST ALLERGY: No EXAM: MRI - CONTRAST TYPE: GROUP II IV SITE: Ambulatory: A peripheral IV was started in the Right antecubital site with a Angio cath: 22 gauge. and A Saline lock was inserted per protocol IV SITE APPEARANCE: Clean,Dry and Intact SIGNATURE: Denise Reno RN PATIENT NAME: Natalie Jaquez DATE: November 14, 2023 TIME: 1:21 PM documented in this encounter [facility] 11-14-2023 Note HNO ID: [id number] Author: DENISE RENO RN Service: Radiology Author Type: Registered Nurse Type: Progress Notes Filed: 11/14/2023 13:21 Note Text: Radiology Service Progress Note DATE OF SERVICE: November 14, 2023 TIME: 12:40 PM PATIENT WEIGHT: 267 LBS PATIENT IDENTITY VERIFICATION COMPLETED USING TWO (2) STANDARD IDENTIFIERS: Name and Date of confirmed by patient verbally. FALL SCREENING: Has the patient had 2 falls in the last year or 1 fall with injury or currently using an Ambulatory Assistive Device (Walker, Cane, Wheelchair, Crutches, etc.)? No PATIENT GENDER DATA: Female. status: : No status: NO. ALLERGIES: Reviewed and unchanged CONTRAST ALLERGY: No EXAM: MRI - CONTRAST TYPE: GROUP II IV SITE: Ambulatory: A peripheral IV was started in the Right antecubital site with a Angio cath: 22 gauge. and A Saline lock was inserted per protocol IV SITE APPEARANCE: Clean,Dry and Intact SIGNATURE: Denise Reno RN PATIENT NAME: Natalie Jaquez DATE: November 14, 2023 TIME: 1:21 PM [facility] 10-31-2023 Miscellaneous Notes Noted patient's reply, routing to Yoly Blancas CNP to update. Brandy Pascal RN documented in this encounter [facility] 08-29-2023 Note HNO ID: [id number] Author: YOLY BLANCAS APRN.CNP Service: ? Author Type: Nurse Practitioner Type: Progress Notes Filed: 08/29/2023 09:49 Note Text: [facility] FOLLOWUP/ESTABLISHED PATIENT VISIT PRINCIPAL NEUROLOGIC DIAGNOSIS: Multiple Sclerosis DISEASE SUMMARY Date of onset: 2009 Date of diagnosis of MS: 2013 Disease course at onset: Relapsing-Remitting Current disease course: Relapsing-Remitting Previous disease therapies: IVMP one time 08/08 (did not like them , felt like she was worse on these, felt more numb then better) Avonex- had injection site reactions, one time short of breath and felt like she would pass out after Avonex Copaxone- rash -Tecfidera- breakthrough disease Current disease therapy: -Ocrevus - last infusion 07/12/23 Most recent MRI brain: 01/23/23-Multiple intracranial white matter lesions compatible with multiple sclerosis. No new T2 lesions and no new enhancing lesions. No significant parenchymal volume loss. Other Significant Intracranial Findings: Large left and small right mastoid effusions, new from prior, with associated patchy enhancement. There is also new/increased soft tissue thickening and fluid in the left external auditory canal. Findings raise suspicion for infectious/inflammatory etiology, such as otitis media/mastoiditis, possibly with component of external otitis or reactive change. Correlate with history/symptomatology and exam. Most recent MRI cervical/thoracic spine: 01/23/23-Scattered intramedullary lesions compatible with the clinical history of multiple sclerosis. No new T2 intramedullary lesions and no new enhancing intramedullary lesions. No significant volume loss of the upper spinal cord for age. Other Significant Cervical Spine Findings: No significant cervical canal or foraminal stenosis. CSF: 11/04 Pos [facility] JCV serology result and date: 08/12/15 neg Comorbidities: PCOS No results found for: JCVAB, JCVIND CHIEF COMPLAINT: Follow-up on MS disease modifying therapy INTERVAL HISTORY: Usual treating team: Jeff/Angela The patient was last seen 09/02/22, currently taking Ocrevus. Tolerating Ocrevus without difficulty. Has had two falls since last visit, did have bruising with falls. Has had LBP, has been occurring for the past two months intermittently. Describes pain as burning and will run down legs. Pain is worse when standing. Is currently finishing medrol dose pack, which has been helping. 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 Is still pursuing disability- has an senior attorney. Reports BLE spasms. Is taking Baclofen 10mg QHS. Does endorse adequate water intake. Mood: Not bad Spasticity: See HPI Bladder: urgency, incontinence- more at night. Wears pad Bowel: Normal Pain related to today's visit:reviewed on nursing intake documentation Fatigue: Tolerable Sleep: Ok, naps occasionally Memory/Concentration: Losing train of thought Neuro-QoL Functions (higher=better functioning) Flowsheet [facility] Office Visit from 09/02/2022 in [facility] Appointment from 01/31/2022 in [facility] from 08/03/2021 in [facility] Upper Extremity Domain T Score 39 57 57 Lower Extremity Domain T Score 44 50 49 Cognitive Function Domain T Score 44 43 50 Positive Affect Well Being T Score -- -- -- Ability To Participate In Social Roles T Score 45 52 41 Satisfaction With Social Roles T Score 40 42 36 Neuro-QoL Symptoms (higher=worse symptoms) Flowsheet [facility] Office Visit from 09/02/2022 in [facility] Appointment from 01/31/2022 in [facility] from 08/03/2021 in [facility] Sleep Domain T Score 60 59 61 Fatigue Domain T Score 71 60 69 Anxiety Domain T Score 50 44 44 Depression Domain T Score 50 53 54 Stigma Domain T Score 50 53 54 Emotional Behavior Dyscontrol T Score -- -- -- has a past medical history of Multiple sclerosis (HCC), Myopia, and Wears glasses. has a current medication list which includes the following prescription(s): methylprednisolone, baclofen, aripiprazole, amphetamine-dextroamphetamine, cholecalciferol (vitamin d3), ferrous sulfate, norgestimate-ethinyl estradiol, and levothyroxine. EXAM: [facility] 09/02/2022 (Exact Date) Multiple Sclerosis Performance Test Flowsheet Row Office Visit from 12/04/2020 in [facility] Office Visit from 10/05/2017 in [facility] Processing Speed Total Number Correct 59 70 Low-contrast letter acuity test-2.5 percent opacity 34 36 Low-contrast letter acuity test-100 percent opacity 59 59 Dominant hand -- -- MDT Left Hand Time 21.88 20.98 MDT Right Hand Time 20.13 19.06 Walking Speed Test (25 feet) 3.85 4.97 General Appearance: well appearing, in no acute distress Mental status evaluation during the interview and examination showed normal level of consciousness, orientation, language, memory, praxis, and higher intellectual function Affect: Normal Extraocular movements: full, without ROMAN Facial s (more content not included)... [facility] 08-29-2023 History of Presen t illness Narrative Images from the original note were not included. [facility] FO[facility]/ESTABLISHED PATIENT VISIT PRINCIPAL NEUROLOGIC DIAGNOSIS: Multiple Sclerosis DISEASE SUMMARY Date of onset: 2009 Date of diagnosis of MS: 2013 Disease course at onset: Relapsing-Remitting Current disease course: Relapsing-Remitting Previous disease therapies: IVMP one time 08/08 (did not like them , felt like she was worse on these, felt more numb then better) Avonex- had injection site reactions, one time short of breath and felt like she would pass out after Avonex Copaxone- rash -Tecfidera- breakthrough disease Current disease therapy: -Ocrevus - last infusion 07/12/23 Most recent MRI brain: 01/23/23-Multiple intracranial white matter lesions compatible with multiple sclerosis. No new T2 lesions and no new enhancing lesions. No significant parenchymal volume loss. Other Significant Intracranial Findings: Large left and small right mastoid effusions, new from prior, with associated patchy enhancement. There is also new/increased soft tissue thickening and fluid in the left external auditory canal. Findings raise suspicion for infectious/inflammatory etiology, such as otitis media/mastoiditis, possibly with component of external otitis or reactive change. Correlate with history/symptomatology and exam. Most recent MRI cervical/thoracic spine: 01/23/23-Scattered intramedullary lesions compatible with the clinical history of multiple sclerosis. No new T2 intramedullary lesions and no new enhancing intramedullary lesions. No significant volume loss of the upper spinal cord for age. Other Significant Cervical Spine Findings: No significant cervical canal or foraminal stenosis. CSF: 11/04 Pos OCB JCV serology result and date: 08/12/15 neg Comorbidities: PCOS No results found for: JCVAB, JCVIND CHIEF COMPLAINT: Follow-up on MS disease modifying therapy INTERVAL HISTORY: Usual treating team: Jeff/Angela The patient was last seen 09/02/22, currently taking Ocrevus. Tolerating Ocrevus without difficulty. Has had two falls since last visit, did have bruising with falls. Has had LBP, has been occurring for the past two months intermittently. Describes pain as burning and will run down legs. Pain is worse when standing. Is currently finishing medrol dose pack, which has been helping. 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 Is still pursuing disability- has an senior attorney. Reports BLE spasms. Is taking Baclofen 10mg QHS. Does endorse adequate water intake. Mood: Not bad Spasticity: See HPI Bladder: urgency, incontinence- more at night. Wears pad Bowel: Normal Pain related to today's visit:reviewed on nursing intake documentation Fatigue: Tolerable Sleep: Ok, naps occasionally Memory/Concentration: Losing train of thought Neuro-QoL Functions (higher=better functioning) Flowsheet [facility] Office Visit from 09/02/2022 in [facility] Appointment from 01/31/2022 in [facility] from 08/03/2021 in [facility] Upper Extremity Domain T Score 39 57 57 Lower Extremity Domain T Score 44 50 49 Cognitive Function Domain T Score 44 43 50 Positive Affect Well Being T Score -- -- -- Ability To Participate In Social Roles T Score 45 52 41 Satisfaction With Social Roles T Score 40 42 36 Neuro-QoL Symptoms (higher=worse symptoms) Flowsheet [facility] Office Visit from 09/02/2022 in [facility] Appointment from 01/31/2022 in [facility] from 08/03/2021 in [facility] Sleep Domain T Score 60 59 61 Fatigue Domain T Score 71 60 69 Anxiety Domain T Score 50 44 44 Depression Domain T Score 50 53 54 Stigma Domain T Score 50 53 54 Emotional Behavior Dyscontrol T Score -- -- -- has a past medical history of Multiple sclerosis (HCC), Myopia, and Wears glasses. has a current medication list which includes the following prescription(s): methylprednisolone, baclofen, aripiprazole, amphetamine-dextroamphetamine, cholecalciferol (vitamin d3), ferrous sulfate, norgestimate-ethinyl estradiol, and levothyroxine. EXAM: [facility] 09/02/2022 (Exact Date) Multiple Sclerosis Performance Test Flowsheet Row Office Visit from 12/04/2020 in [facility] Office Visit from 10/05/2017 in [facility] Processing Speed Total Number Correct 59 70 Low-contrast letter acuity test-2.5 percent opacity 34 36 Low-contrast letter acuity test-100 percent opacity 59 59 Dominant hand -- -- MDT Left Hand Time 21.88 20.98 MDT Right Hand Time 20.13 19.06 Walking Speed Test (25 feet) 3.85 4.97 General Appearance: well appearing, in no acute distress Mental status evaluation during the interview and examination showed normal level of consciousness, orientation, language, memory, praxis, and higher intellectual function Affect: Normal Extraocular movements: full, without ROMAN Facial sensation: Intact bilaterally Facial movements: Intact bilaterally Speech: normal Muscle tone: Right arm spasticity: Mild Right leg spasticity: Mild Left arm spasticity: Mild Left leg spasticity: Mild Muscle strength (#/5): Right Left Upper Extremity: Deltoids 5 5 Biceps 5 5 Triceps 5 5 Costumer Assistant 5 5- Dorsal interossei 5 5- Lower extremity: Iliopsoas 5 5 Quadriceps 5 5 Hamstrings 5 5 Tibialis anterior 5 5 Gastrocnemius 5 5 Coordination: Upper extremity dexterity and rapid movements: Normal bilaterally Finger-nose: no dysmetria; coordination intact Standing balance: Normal Standard gait: normal. Assistive device: independent RESULTS: CBC + Diff Component Value Date WBC 9.06 07/12/2023 HB 13.6 07/12/2023 HCT 41.2 07/12/2023 PLT 330 07/12/2023 ABSLYMPH 1.32 07/12/2023 Vitamin D Component Value Date VITD25 53.5 09/02/2022 CMP Component Value Date AST 20 07/12/2023 GLUC 107 (H) 07/12/2023 BUN 16 07/12/2023 CREAT 0.71 07/12/2023 NA 141 07/12/2023 K 4.1 07/12/2023 CHLOR 106 (H) 07/12/2023 ALT 25 07/12/2023 MRI Results: Discrete MRI Results Component Value Date Brain New T2 Lesions None 01/23/2023 Brain New T2 Lesions None 01/23/2023 Brain Enhancing Lesions None 01/23/2023 Brain Enhancing Lesions None 01/23/2023 Cervical Spine New T2 Lesions None 01/23/2023 Cervical Spine New T2 Lesions None 01/23/2023 Cervical spine enhancing lesions None 01/23/2023 Cervical spine enhancing lesions None 01/23/2023 ASSESSMENT: Natalie Jaquez is a 27 year old female with Multiple Sclerosis. Currently on Ocrevus. Exam is:Stable, continue with current IMDT. The prescribed disease modifying therapy for MS is having the expected benefit in this patient based on imaging and clinical criteria, and will be continued or refilled, with planned follow-up at approximately 6-month intervals to continue to assess response on an ongoing basis. Will get updated brain MRI's w/wo contrast to assess disease activity. Compare to previous MRI. MRI of the brain and/or spinal cord is being ordered to evaluate for efficacy of multiple sclerosis (MS) disease modifying therapy. Disease activity in MS is often not immediately detectable on history or examination, but is sensitively identified on MRI. If identified, new or active MS lesions on MRI may represent suboptimal response to MS therapy, and would change medical management. Has known lumbar degenerative changes, will get updated lumbar MRI w/o contrast to evaluate for worsening of degenerative changes. Encouraged finishing up medrol dose pack. Encouraged stretching and HEP. PLAN: Continue Ocrevus Brain MRI w/wo contrast Lumbar MRI w/o contrast Patient Health Education Discussed at Visit: Aerobic exercise, Emotional Health/Wellness, Stretching, and Vitamin D supplementation Follow-up: In 1 year at [place] with [facility] APC I spent a total of 35 minutes on the date of the service which included preparing to see the patient, [id number] patient care, completing clinical documentation, obtaining and/or reviewing separately obtained history, performing a medically appropriate examination, counseling and educating the patient/family/caregiver, and ordering medications, tests, or procedures. Yoly Blancas APRN.VEENA [facility] documented in this encounter [facility] 04-08-2023 Evaluation note Encounter Date Diagnosis Assessment Notes Mar, Bronchitis (ICD-10 - J40) Plenty of rest. Take the Zithromax as prescribed until gone. Take the prednisone as prescribed until gone starting tomorrow. Continue to use your albuterol inhaler for cough or shortness of breath. Take Tylenol or Motrin as needed for aches pains or fevers. Follow-up with your family physician if no improvement in 2 to 3 days. Go to the ER for worsening symptoms or concerns, Acute bronchitis home care material was printed [employer] Other 07-08-2023 Evaluation note* Encounter Date Diagnosis Assessment Notes Treatment Notes Treatment Clinical Notes Jan, Contact with and (suspected) exposure to covid-19 (ICD-10 - Z20.822) Jan, COVID-19 (ICD-10 - U07.1) Discharge Instructions for COVID-19 (Suspected or Confirmed ) material was printed Drink plenty fluids, get plenty of rest. Continue home meds as prescribed. You must quarantine for 5 days after the onset of your symptoms of COVID. Follow-up with your family physician if no improvement in 2 to 3 days [facility] Other 07-03-2023 History of Present illness Narrative* SAMUEL Zamora) - 01/23/2023 2:30 PM EDT Radiology Service Progress Note DATE OF SERVICE: January 23, 2023 TIME: 2:48 PM PATIENT IDENTITY VERIFICATION COMPLETED USING TWO (2) STANDARD IDENTIFIERS: Name and Date of confirmed by patient verbally. FALL SCREENING: Has the patient had 2 falls in the last year or 1 fall with injury or currently using an Ambulatory Assistive Device (Walker, Cane, Wheelchair, Crutches, etc.)? No PATIENT GENDER DATA: Female. status: : No status: NO. PATIENT RELEVANT IMPLANT DATA REVIEWED: Yes ALLERGIES: Reviewed and unchanged CONTRAST ALLERGY: NO. EXAM: MRI - CONTRAST TYPE: GROUP II PERIPHERAL IV DATA: Ambulatory: A peripheral IV was started in the Right antecubital site with a Butterfly: 23 gauge. RADIOLOGY DEPARTMENT: MR; Exam(s) Completed: Head: Multiple Sclerosis Spine: Cervical spine SIGNATURE: RT Noah(Shelby) PATIENT NAME: Natalie Jaquez DATE: January 23, 2023 TIME: 2:48 PM [facility] NoteHNO ID: [id number] Author: SAMUEL Zamora) Service: Radiology Author Type: Technologist Type: Progress Notes Filed: 01/23/2023 2:49 PM Note Text: Radiology Service Progress Note DATE OF SERVICE: January 23, 2023 TIME: 2:48 PM PATIENT IDENTITY VERIFICATION COMPLETED USING TWO (2) STANDARD IDENTIFIERS: Name and Date of confirmed by patient verbally. FALL SCREENING: Has the patient had 2 falls in the last year or 1 fall with injury or currently using an Ambulatory Assistive Device (Walker, Cane, Wheelchair, Crutches, etc.)? No PATIENT GENDER DATA: Female. status: : No status: NO. PATIENT RELEVANT IMPLANT DATA REVIEWED: Yes ALLERGIES: Reviewed and unchanged CONTRAST ALLERGY: NO. EXAM: MRI - CONTRAST TYPE: GROUP II PERIPHERAL IV DATA: Ambulatory: A peripheral IV was started in the Right antecubital site with a Butterfly: 23 gauge. RADIOLOGY DEPARTMENT: MR; Exam(s) Completed: Head: Multiple Sclerosis Spine: Cervical spine SIGNATURE: RT Noah(R) PATIENT NAME: Natalie Jaquez DATE: January 23, 2023 TIME: 2:48 [place]04-30-2023 Evaluation note* Encounter Date Diagnosis Assessment Notes Treatment Notes Treatment Clinical Notes Oct, Contact with and (suspected) exposure to other viral communicable diseases (ICD-10 - Z20.828) Oct, Acute viral bronchitis (ICD-10 - J20.8) Advised patient that rapid COVID/influenza A/B test was negative today in office. Discussed diagnosis with patient in detail. Will treat as viral today based on physical exam and duration of symptoms, antibiotics are not indicated for viral infections. Advised patient that viral syndromes last 7-10 days, cough may linger for 3 weeks. Take medications as prescribed, reviewed side effects of steroid, take with food and plenty of water. Supportive care as directed, push fluids and rest, may use Tylenol/Motrin as needed for fever/discomfort, cool mist humidifier. May use [place] as needed for cough, do not take any other OTCs while using [place]. Patient to follow up with PCP in 2-3 days. Immediate eval if SOB, difficulty breathing, chest pain, dizziness, or other concerning symptoms. Patient verbalizes understanding and is agreeable to treatment plan. [facility] Other 02-20-2023 History of Present illness Narrative* Romario Galindo Research Coordinator - 09/12/2022 3:18 PM EST Retroactive MS SmartForm Completion -Romario Galindo Research Coordinator documented in this [facility] Instructions* Patient Instructions* Yoly Blancas APRN.CNP - 09/02/2022 2:58 PM EST -Can consider Provigil or Nuvigil for MS fatigue documented [facility] History of Present illness Narrative* Yoly Blancas APRN.CNP - 09/02/2022 2:29 PM EST Images from the original note were not included. [facility] FOLLOWUP/ESTABLISHED PATIENT VISIT PRINCIPAL NEUROLOGIC DIAGNOSIS: Multiple Sclerosis DISEASE SUMMARY Date of onset: 2009 Date of diagnosis of MS: 2013 Disease course at onset: Relapsing-Remitting Current disease course: Relapsing-Remitting Previous disease therapies: IVMP one time 08/08 (did not like them , felt like she was worse on these, felt more numb then better) Avonex- had injection site reactions, one time short of breath and felt like she would pass out after Avonex Copaxone- rash -Tecfidera- breakthrough disease Current disease therapy: -Ocrevus 11/27/17 & 12/11/17, 06/19/18, 12/18/18, 06/18/19,12/17/19, 06/22/20, 12/22/20, 06/22/21, 01/11/22, 07/13/22 Most recent MRI brain: 11/05/21-Multiple intracranial white matter lesions compatible with multiple sclerosis. No new T2 lesions and no new enhancing lesions. No significant parenchymal volume loss. Other Significant Intracranial Findings: None Most recent MRI cervical/thoracic spine: 05/28/20- Cervical Cord: No evidence of demyelinating disease in the spinal cord. No new T2 intramedullary lesions and no new enhancing intramedullary lesions.No significant volume loss in the spinal cord for age. Thoracic Cord: No evidence of demyelinating disease in the spinal cord. No new T2 intramedullary lesions and no new enhancing intramedullary lesi ons. No significant volume loss in the spinal cord for age. Other Significant Spine Findings: No significant spinal canal or foraminal stenosis. CSF: 11/04 Pos OCB JCV serology result and date: 08/12/15 neg Comorbidities: PCOS No results found for: JCVAB, JCVIND CHIEF COMPLAINT: Follow-up on MS disease modifying therapy INTERVAL HISTORY: Usual treating team: Jeff/Angela The patient was last seen 08/03/21, currently taking Ocrevus. Tolerating Ocrevus without difficulty. Reports increase in stress, is now taking care of mom 13/02, does have CHIEF EXECUTIVE coming in several days per week to help. Did quit job to take care of mom. Filed for disability. Does have visit scheduled with SSDI provider later this month. Has noticed increase in left sided spasms. Continues to take Baclofen 10mg QHS. Fell about a week ago, stood up and left leg gave out. Denies any injury with fall. Mood: Ok Spasticity:Spasms, more at night Bladder: urgency, incontinence- more at night. Wears pad Bowel: Normal Pain related to today's visit:reviewed on nursing intake documentation Fatigue: Moderate Sleep: Occasional difficulty falling asleep Memory/Concentration: Misplacing objects, Trouble multitasking, and Losing train of thought Neuro-QoL Functions (higher=better functioning) Flowsheet Row Office Visit from 09/02/2022 in [facility] Appointment from 01/31/2022 in [facility] from 08/03/2021 in [facility] Upper Extremity Domain T Score 39 57 57 Lower Extremity Domain T Score 44 50 49 Cognitive Function Domain T Score 44 43 50 Positive Affect Well Being T Score -- -- -- Ability To Participate In Social Roles T Score 45 52 41 Satisfaction With Social Roles T Score 40 42 36 Neuro-QoL Symptoms (higher=worse symptoms) Flowsheet Row Office Visit from 09/02/2022 in [facility] Appointment from 01/31/2022 in [facility] from 08/03/2021 in [facility] Sleep Domain T Score 60 59 61 Fatigue Domain T Score 71 60 69 Anxiety Domain T Score 50 44 44 Depression Domain T Score 50 53 54 Stigma Domain T Score 50 53 54 Emotional Behavior Dyscontrol T Score -- -- -- has a past medical history of Multiple sclerosis (HCC), Myopia, and Wears glasses. has a current medication list which includes the following prescription(s): baclofen, aripiprazole,amphetamine-dextroamphetamine, cholecalciferol (vitamin d3), ferrous sulfate, norgestimate-ethinyl estradiol, and levothyroxine. EXAM: [facility] 08/22/2015 Multiple Sclerosis Performance Test Flowsheet Row Office Visit from 12/04/2020 in [facility] Office Visit from 10/05/2017 in [facility] Processing Speed Total Number Correct 59 70 Low-contrast letter acuity test-2.5 percent opacity 34 36 Low-contrast letter acuity test-100 percent opacity 59 59 Dominant hand -- -- MDT Left Hand Time 21.88 20.98 MDT Right Hand Time 20.13 19.06 Walking Speed Test (25 feet) 3.85 4.97 General Appearance: well appearing, in no acute distress Mental status evaluation during the interview and examination showed normal level of consciousness,orientation, language, memory, praxis, and higher intellectual function Affect: Normal Extraocular movements: full, without ROMAN Facial sensation: Intact bilaterally Facial movements: Intact bilaterally Speech: normal Muscle tone: Right arm spasticity: Mild Right leg spasticity: Mild Left arm spasticity: Mild Left leg spasticity: Mild Muscle strength (#/5): Right Left Upper Extremity: Deltoids 5 5 Biceps 5 5 Triceps 5 5 Costumer Assistant 5 5 Dorsal interossei 5 5 Lower extremity: Iliopsoas 5 5 Quadriceps 5 5 Hamstrings 5 5 Tibialis anterior 5 5 Gastrocnemius 5 5 Coordination: Upper extremity dexterity and rapid movements: Normal bilaterally Finger-nose: no dysmetria; coordination intact Standing balance: Normal Standard gait: normal. Assistive device: independent RESULTS: CBC + Diff Component Value Date WBC 9.86 2021 HB 13.4 2021 HCT 43.5 2021 PLT 402 (H) 2021 ABSLYMPH 2.07 2021 Vitamin D Component Value Date VITD25 34.2 2021 CMP Component Value Date AST 17 2021 GLUC 72 (L) 2021 BUN 12 2021 CREAT 0.70 2021 NA 143 2021 K 3.8 2021 CHLOR 105 2021 ALT 16 2021 MRI Results: Discrete MRI Results Component Value Date Brain New T2 Lesions None 2021 Brain Enhancing Lesions None 2021 Cervical Spine New T2 Lesions None 05/28/2020 Cervical spine enhancing lesions None 05/28/2020 ASSESSMENT: Natalie Jaquez is a 26 year old female with Multiple Sclerosis. Currently on Ocrevus. Exam is:Stable, continue with current IMDT. The prescribed disease modifying therapy for MS is having the expected benefit in this patient based on imaging and clinical criteria, and will be continued or refilled, with planned follow-up at approximately 6-month intervals to continue to assess response on an ongoing basis. Will get updated medication safety labs. Will get updated brain and cervical MRI's w/wocontrast to assess disease activity. Compare to previous MRI. MRI of the brain and/or spinal cord is being ordered to evaluate for efficacy of multiple sclerosis (MS) disease modifying therapy. Disease activity in MS is often not immediately detectable on history or examination, but is sensitively identified on MRI. If identified, new or active MS lesions on MRI may represent suboptimal response to MS therapy, and would change medical management. Reviewed increase in stress will cause worsening of MS symptoms. Discussed asking SW with CHIEF EXECUTIVE, whatother resources she and her mom would be eligible for to assist with her care. Can get updated NPT and FCE if needed for disability claim. Encouraged stretching and HEP. PLAN: Continue Ocrevus Labs- CBC w/diff, CMP, vitamin D Brain and cervical MRI's w/wo contrast Patient Health Education Discussed at Visit: Aerobic exercise, Emotional Health/Wellness, Stretching, and Vitamin D supplementation Follow-up: In 1 year at [place] with [facility] I spent a total of 40 minutes on the date of the service which included preparing to see the patient, [id number] patient care, completing clinical documentation, obtaining and/or reviewing separately obtained history, performing a medically appropriate examination, counseling and educating the pat ient/family/caregiver, and ordering medications, tests, or procedures. 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 [facility] Evaluation note* Encounter Date Diagnosis Assessment Notes Treatment Notes Treatment Clinical Notes Jul, Impacted cerumen, left ear (ICD-10 - H61.22) Jul, Acute otitis externa of left ear, unspecified type (ICD-10 - H60.502) Otitis externa home care material was printed Drink plenty fluids, get plenty of rest. Use eardrops as prescribed. Take Tylenol or Motrin as needed for aches pains or fevers. Follow-up with your family physician if no improvement in 2 to 3 days. Jul, Sore throat (ICD-10 - J02.9) [facility] Other 11-30-2022 NoteOPERATIVE NOTE OPERATION DATE: 06/22/2022 PREOPERATIVE DIAGNOSIS: Change in bowel habits with frequent loose stools, rectal bleeding and abdominal pain, family history of Crohn's disease. POSTOPERATIVE DIAGNOSIS: Normal colonoscopy to terminal ileum with biopsy of terminal ileum and sigmoid colon random biopsies. PROCEDURE: Colonoscopy to terminal ileum. SURGEON: Yusuf Peters M.D. ANESTHESIA: Monitored anesthesia care. ESTIMATED BLOOD LOSS: Less than 1 mL. INDICATIONS AND CONSENT: Patient is a 26-year-old female with a many year history of intermittent loose stools, crampy abdominal pain as well as intermittent rectal bleeding. There is also a family history of Crohn's disease in her mother. Indications, risks, benefits, alternatives of proceeding with colonoscopy were explained extensively to the patient, including the risks of bleeding, colon perforation or anesthetic complications. All of her questions were answered. Informed consent was obtained. PROCEDURE: Patient brought to the operating room, placed in the left lateral decubitus position. Monitored anesthesia care was provided. Rectal exam was performed which showed no masses or blood. The scope was then inserted into the anal canal. Under direct visualization was advanced. It was advanced to the cecum where cecal markings were clearly identified. There was noted to be a good prep. The terminal ileum was intubated. Biopsy x2 was obtained with cold biopsy forceps with good hemostasis. There was no evidence of inflammatory changes or ulcerations. Upon withdrawal of the scope, mucosal surfaces were carefully examined. There were no mass lesions or ulceration. No inflammatory changes. No significant diverticulosis. Random biopsy in the sigmoid colon was obtained with good hemostasis. The scope was retroflexed in the anal canal. There was noted to be small prominent rectal veins but no old or new blood. No significant hemorrhoidal disease. The scope was then withdrawn. Patient tolerated procedure well, was sent to recovery room in good condition. Follow up colonoscopy will depend on the pathology. If it is normal, she should just have screening beginning at age 45. CC: Jayme Costa M.D.[facility]11-01-2022 NoteChief Complaint consultation for abdominal pain, bowel changes and defecation urgency HPI Staff 26 year old female presents on consultation from Dr. Costa for abdominal cramping and possible IBS. Reports long standing history of intermittent abdominal cramping. Bentyl is effective in controlling cramping. Intermittent rectal bleeding with blood in toilet and with wiping. Reports four episodes in the past year of defecation urgency with fecal incontinence. States she frequently has loose stools and diarrhea. Rare constipation. Denies rectal pain. Mother with history Crohn's. Denies nausea or vomiting. No unexplained weight loss. Never had colonoscopy in the past. History of Present Illness 26 yo female with h/o MS, hypothyroidism, migraines, PCOS, GERD, bipolar d/o; JEFF, referred for long h/o intermittent loose stools and crampy abdominal pain; going on for many years; seen 09/[address] Mota, was to have colonoscopy but cancelled because of COVID; recently with some BRBPR with bms, in toilet bowel and with wiping; crampy mid abdominal pain, followed by loose stools, usually 3 x day; no N/V; no wt loss; no specific food triggers; no asa or NSAID use, no SBE prophylaxis; abdominaloperations significant for cholecystectomy 10 years ago; has had several EGDs in past, did have GERD, now resolved; vapes nicotine containing substances; fmhx of Crohn's disease in patient's mother, no fmhx of GI malignancy. Review of Systems PHQ Score Initial Depression Screen Score: 0 ROS - Provider Constitutional: no fever, no sweats, no weight loss. Eyes: no glasses, no blurred vision, no visual loss. ENMT: no dentures, no hoarseness, no swallowing difficulties, no hearing loss, no ear infection(s),no nose bleeds. Cardiovascular: normal blood pressure, no chest pain, regular heartbeat, no heart murmur. Respiratory: no shortness of breath, no cough, no asthma, no wheezing. Gastrointestinal: no nausea, no vomiting, no diarrhea, no constipation, no blood in stool, yes change in bowel habits, yes abdominal pain, no hepatitis. Genitourinary: no kidney stones, no urine infection, no dysuria. Musculoskeletal: no pain, no weakness. Skin: no changing moles, no rash, no skin lumps. Neurologic: no seizures, no epilepsy, no headache. Psychiatric: no emotional or psychiatric problem. Heme/Lymph: no bleeding problems, no anemia, no blood clots, no transfusions. Allergy/Immunologic: no swollen lymph nodes/glands, no IV drug abuse. Other: Additional ROS info: Except as noted in the above Review of Systems and in the History of Present Illness, all other systems have been reviewed and are negative or noncontributory. Physical Exam Vitals & Measurements HR: 70(Peripheral) RR: 16 BP: 118/80 HT: 65 in HT: 165 cm WT: 106 kg WT: 233.2 lb BMI: 38.93 HEENT: normal conjunctiva, sclera clear, no scleral icterus, EOM intact, PERRLA, oral mucosa moist without lesions. Neck: trachea midline, no mass, symmetric, no thyromegaly or nodules, no adenopathy Respiratory: lungs CTA, respirations non labored. Cardiovascular: regular rate and rhythm, no murmur, no pedal edema or varicosities. Gastrointestinal: obese, soft, non distended, no tenderness, no masses, no palpable hernias, diastasis recti no, no hepatosplenomegaly; normal bs Lymphatic: no cervical adenopathy, no axillary adenopathy, no inguinal adenopathy. Musculoskeletal: normal gait, digits and nails without infection, nodes, cyanosis, clubbing. Skin: no rashes, no lesions, no ulcers, no subcutaneous nodules, induration. Psychiatric/Neuro: oriented to time, place, person, judgement normal, affect appropriate for age, insight intact, no focal deficits. Tests:, review of old records completed, Discussed surgical options, risks, and possible complications with patient. Assessment/Plan 1. Change in bowel habits (R19.4: Change in bowel habit) plan colonoscopy under anesthesia for further evaluation, informed consent obtained. 2. Rectal bleeding (K62.5: Hemorrhage of anus and rectum) see # 1 3. Abdominal pain, periumbilical (R10.33: Periumbilical pain) see # 1 4. Abdominal pain, right lower quadrant (R10.31: Right lower quadrant pain) see # 1 5. Vapes nicotine containing substance (Z72.0: Tobacco use) see # 1 Follow-up No qualifying data available Problem List/Past Medical History Ongoing Abdominal pain, periumbilical Abdominal pain, right lower quadrant Acne vulgaris Bipolar disorder BMI 38.0-38.9,adult Change in bowel habits JEFF (generalized anxiety disorder) Hypothyroidism Iron deficiency anemia Irritable bowel syndrome with both constipation and diarrhea Migraines MS (multiple sclerosis) Obesity PCOS (polycystic ovarian syndrome) Proteinuria Rectal bleeding Vapes nicotine containing substance Vitamin D deficiency Historical No qualifying data Procedure/Surgical History Cholecystectomy, EGD - Esophagogastroduodenoscopy, Removal of pilonidal cyst, Tonsil (more content not included)...[facility]:Result Comment: Electronically Signed By: MATTHEW BENÍTEZ, Yusuf Ryan\.br\Date and Time Signed: 05/24/22 15:03 [id number] History of Present illness Narrative* RT Noah(R) - 2021 11:00 AM EDT Radiology Service Progress Note DATE OF SERVICE: 2021 TIME: 11:08 AM PATIENT IDENTITY VERIFICATION COMPLETED USING TWO (2) STANDARD IDENTIFIERS: Name and Date of confirmed by patient verbally. FALL SCREENING: Has the patient had 2 falls in the last year or 1 fall with injury or currently using an Ambulatory Assistive Device (Walker, Cane, Wheelchair, Crutches, etc.)? No PATIENT GENDER DATA: Female. status: : No status: NO. PATIENT RELEVANT IMPLANT DATA REVIEWED: Yes ALLERGIES: Reviewed and unchanged CONTRAST ALLERGY: NO. EXAM: MRI - CONTRAST TYPE: GROUP II PERIPHERAL IV DATA: Ambulatory: A peripheral IV was started in the Right antecubital site with a Butterfly: 23 gauge. RADIOLOGY DEPARTMENT: MR; Exam(s) Completed: Head: Multiple Sclerosis SIGNATURE: RT Noah(Shelby) PATIENT NAME: Natalie Jaquez DATE: 2021 TIME: 11:08 AM [facility] NotePatient Education Materials Name: Natalie Jaquez Current Date: 08/05/2021 15:19:24 [place] : 1995 The following sheet(s) are the Patient Education Leaflets for Natalie Jaquez Infectious Disease Coronavirus Disease 2019 (COVID-19): Caring for Yourself or Others If you or a household member have symptoms of COVID-19, follow the guidelines below for preventing spread of the virus, and managing symptoms. If you think you have COVID-19 symptoms ? Stay home. Call your healthcare provider and tell them you have symptoms of COVID-19. Do this before going to any hospital or clinic. Follow your provider's instructions. You may be advised to isolate yourself at home. This is called self-isolation. ? Don?t panic. Keep in mind that other illnesses can cause similar symptoms. ? Stay away from work, school, and public places. Limit physical contact with family members. Limitvisitors. Don't kiss anyone or share eating or drinking utensils. Clean surfaces you touch with disinfectant. This is to help prevent the virus from spreading. ? If you need to cough or sneeze, do it into a tissue. Then throw the tissue into the trash. If youdon't have tissues, cough or sneeze into the bend of your elbow. ? Don?t share food or personal items with people in your household. This includes items like eatingand drinking utensils, towels, and bedding. ? Wear a cloth face mask around other people. During a public health emergency, medical face masks may be reserved for healthcare workers. You may need to make a cloth face mask of your own. You can do this using a bandana, T-shirt, or other cloth. The CDC has instructions on how to make a mask. ? If you need to go to a hospital or clinic, expect that the healthcare staff will wear protective equipment such as masks, gowns, gloves, and eye protection. You may be put in a separate room. This is to prevent the possible virus from spreading. ? Tell the healthcare staff about recent travel. This includes local travel on public transport. Staff may need to find other people you have been in contact with. ? Follow all instructions the healthcare staff give you. If you have been diagnosed with COVID-19 ? Stay home and start self-isolation. Don?t leave your home unless you need to get medical care. Don't go to work, school, or public areas. Don't use public transportation or taxis. ? Follow all instructions from your healthcare provider. Call your healthcare provider?s office before going. They can prepare and give you instructions. This will help prevent the virus from spreading. ? If you need to go to a hospital or clinic, expect that the healthcare staff will wear protective equipment such as masks, gowns, gloves, and eye protection. You may be put in a separate room. This is to prevent the possible virus from spreading. ? Wear a face mask. This is to protect other people from your germs. If you are not able to wear a mask, your caregivers should. During a public health emergency, medical face masks may be reserved for healthcare workers. You may need to make a cloth face mask of your own. You can do this using a bandana, T- shirt, or other cloth. The [facility] has instructions on how to make a mask. ? Stay away from other people in your home. ? Have no contact with pets and animals. ? Don?t share food or personal items with people in your household. This includes items like eatingand drinking utensils, towels, and bedding. ? If you need to cough or sneeze, do it into a tissue. Then throw the tissue into the trash. If youdon't have tissues, cough or sneeze into the bend of your elbow. ? Wash your hands often. Self-care at home There is currently no medicine approved to prevent or treat the virus. Some experimental and other medicines are being tested against COVID-19. Other medicines used to treat other conditions are being looked at for COVID-19, but they are not currently approved to treat it. Current treatment is mainly aimed at helping your body while it fights the virus. This is known as supportive care. Take care of yourself at home by: ? Getting rest. This helps your body fight the illness. ? Staying hydrated. Drink 6 to 8 glasses of liquids every day, or as advised by your provider. Goodchoices are water, sport drinks, soft drinks without caffeine, juices, tea, and soup. ? Taking szpy-jlz-dysoriu (OTC) pain medicine. These are used to help ease pain and reduce fever. Follow your healthcare provider's instructions for which OTC medicine to use. If you've been in the hospital for suspected or confirmed COVID-19 and now are home, follow all of your healthcare team's instructions. This will include when it's OK to stop self-isolation. You may also get instructions on position changes to help your breathing, such as lying on your belly (pronepositioning). Caring for a sick person ? Follow all instructions from healthcare staff. ? Wash your hands often. ? Wear protective clot (more content not included)...[facility]01-13-2022 NoteThis is a Telephone Appointment *This visit was conducted by Telephone with real time communicationand interaction. This was performed due to the current COVID-19 pandemic in order to minimize exposure to both patients and staff. The patient verbally consented to treatment. The patient understands their rights, the HIPAA risks and that they will be charged accordingly for the services rendered. Chief Complaint per pt she has fever, cough, chills, body aches x3 days History of Present Illness Natalie Jaquez is a 25 Years old Female who presents with cough, fever, chills, body aches for the past 3 days. Patient states that her fever has been as high as 101.5. She has been exposed to herboyfriend who tested positive for COVID-19 on that home rapid test. Patient is vaccinated for COVID-19. Patient has had some nausea but denies vomiting or diarrhea. She was not had any shortness of breath or wheezing. She has been taken Tylenol jlcq-bup-iopqjtp for symptom management. Review of Systems Constitutional: No sweats POSITIVE fever, chills HEENT: No ear pain, sore throat POSITIVE nasal congestion, rhinorrhea Respiratory: No shortness of breath, wheezing POSITIVE cough Cardiovascular: No Chest pain Gastrointestinal: No vomiting, diarrhea POSITIVE nausea Skin: No rashes Physical Exam Limited physical exam due to the nature of this visit Voice quality: clear Additional Vitals No qualifying data available. Assessment/Plan 1. COVID-19 virus infection Continue to treat your symptoms with iyas-trt-vuqtivk medication. Drink plenty of fluids and take Tylenol as needed for symptom management for body aches, headaches and fevers. expect a call from thehealth department.. At this time you need to quarantine a total of 5 days from the start of symptoms. Avoid contact with others to prevent the spread. If you have developed worsening or severe symptoms such as shortness of breath, confusion, weaknesson one side of your body, chest pain, unable to keep fluids down, fevers out of control, follow-up in the emergency department. While there is extremely limited data, the following cocktail may have a role in prevention/mitigation of COVID-19 disease. It should however by noted that a recent publication suggests that melatonin may reduce the risk of COVID-19 infection. This cocktail is cheap, safe and widely available. Vitamin C 500 mg BID and Quercetin 250-500 mg BID Zinc 50-75 mg/day (zinc lozenges preferred, after 1 months, reduce to 30-50 mg/day) Melatonin (slow release) Begin with 0.3 mg and increase as tolerated to 2 mg at night Vitamin D3 [id number] u/day Optional: Famotidine 20-40 mg/day (for reflux/stomach upset) Time Spent with the Patient Today's visit was performed via telehealth and utilized an audio only connection. Duration of the visit in conversation with the patient: [12] Physician Comments Reviewed assessment and plan as explained above and patient is agreeable. No questions upon discharge. Patient medical history reviewed, vital signs and nurses notes reviewed as documented. Problem List/Past Medical History Ongoing Anemia Multiple sclerosis PCOS- polycystic ovary syndrome Historical No qualifying data Procedure/Surgical History Gallbladder removal Tonsils removed Medications Abilify, Oral, Daily Adderall, Oral, BID Iron 100 Plus, Oral, Daily, Not taking levothyroxine, Daily metFORMIN, Oral, Not taking Tri Femynor, Oral, Daily venlafaxine, Oral Vitamin D3 Wellbutrin SR, Oral, BID, Not taking Allergies Avonex (Shortness of breath) Copaxone (Hives) Social History Tobacco 4 or less cigarettes(less than 1/4 pack)/day in last 30 days Use:. E-Cigarettes Family History Family history is unknown Lab Results Test Name Test Result Date/Time POC SARS Antigen Card Positive 08/05/2021 14:53 EST Electronically signed by Agusto ANDERSON Lakeisha Guillermozabeth 08/05/21 15:12 [facility]08-20-2021 NotePatient Education Materials Name: Natalie Jaquez Current Date: 03/12/2021 16:03:51 Miriam/[facility] : 1995 The following sheet(s) are the Patient Education Leaflets for Natalie Jaquez Ambulatory Assessment/Plan 1. Chest congestion covid: negative Humidifier and Mucinex for chest congestion. Follow up with your PCP if not improving. Go to the emergency room if worsening. Oxygen is 100% and your chest xray is clear Treatment options for cough and sore throat: Gargle with warm salt water Claritin/Zyrtec in AM for nondrowsy antihistamine (dries you up) Benadryl in PM for drowsy antihistamine Flonase nasal spray for postnasal drainage and sore throat Sore throat drops, cepacol, chloraseptic spray Warm tea with honey Viral Upper Respiratory Illness (Adult) You have a viral upper respiratory illness (URI), which is another term for the common cold. This illness is contagious during the first few days. It is spread through the air by coughing and sneezing. It may also be spread by direct contact (touching the sick person and then touching your own eyes, nose, or mouth). Frequent handwashing will decrease risk of spread. Most viral illnesses go away within 7 to 10 days with rest and simple home remedies. Sometimes the illness may last for several weeks. Antibiotics will not kill a virus, and they are generally not prescribed for this condition. Home care ? If symptoms are severe, rest at home for the first 2 to 3 days. When you resume activity, don't let yourself get too tired. ? Don't smoke. If you need help stopping, talk with your healthcare provider. ? Avoid being exposed to cigarette smoke (yours or others?). ? You may use acetaminophen or ibuprofen to control pain and fever, unless another medicine was prescribed. If you have chronic liver or kidney disease, have ever had a stomach ulcer or gastrointestinal bleeding, or are taking blood- thinning medicines, talk with your healthcare provider before using these medicines. Aspirin should never be given to anyone under 18 years of age who is ill with a viral infection or fever. It may cause severe liver or brain damage. ? Your appetite may be poor, so a light diet is fine. Stay well hydrated by drinking 6 to 8 glassesof fluids per day (water, soft drinks, juices, tea, or soup). Extra fluids will help loosen secretions in the nose and lungs. ? Rkby-pbi-sjkovgi cold medicines will not shorten the length of time you?re sick, but they may be helpful for the following symptoms: cough, sore throat, and nasal and sinus congestion. If you take prescription medicines, ask your healthcare provider or pharmacist which wfio-kqf-kkcpilt medicines are safe to use. (Note: Don't use decongestants if you have high blood pressure.) Follow-up care Follow up with your healthcare provider, or as advised. When to seek medical advice Call your healthcare provider right away if any of these occur: ? Cough with lots of colored sputum (mucus) ? Severe headache; face, neck, or ear pain ? Difficulty swallowing due to throat pain ? Fever of 100.4?F (38?C) or higher, or as directed by your healthcare provider Call 911 Call 911 if any of these occur: ? Chest pain, shortness of breath, wheezing, or difficulty breathing ? Coughing up blood ? Very severe pain with swallowing, especially if it goes along with a muffled voice ? [employer]. [address] [place] [address]. All rights reserved. This information is not intended as a substitute for professional medical care. Always follow your healthcare professional's instructions.[facility]08-20-2021 NoteProcedure: Upright PA and lateral views of the chest. Clinical Information: Shortness of breath Comparison: None. Findings: Lungs/pleura: Clear lungs. No pleural effusion or pneumothorax. Heart/mediastinum: Normal. Bones/soft tissue: Grossly normal. IMPRESSION: Normal chest radiographs. Final Dictated by: Mat Wynn MD Dictated DT/TM: 03/12/2021 3:47 pm Signed by: Mat Wynn MD Signed (Electronic Signature): 03/12/2021 3:48 pm (If Report Is Signed, Electronically Signed in Other Vendor System)[facility]08-02-2021 NotePatient Education Materials Name: Alli Natalie John Current Date: 02/22/2021 17:09:41 [facility] : 1995 The following sheet(s) are the Patient Education Leaflets for [facility] Amb[facility] Giulia Skin Infection (Adult) Giulia is a type of yeast. It grows naturally on the skin and in the mouth. If it grows out of control, it can cause an infection. Giulia can cause infections in the genital area, skin folds, in the mouth, and under the breasts. Anyone can get this infection. It is more common in a person with a weak immune system, such as from diabetes, HIV, or cancer. It?s also more common in someone who has been on antibiotic therapy. And it?s more common in people who are overweight or who have incontinence. Wearing tight-fitting clothing and taking part in activities with lots of ifyj-bc-rhog contact can also put you at risk. Giulia causes the skin to become bright red and inflamed. The border of the infected part of the skin is often raised. The infection causes pain and itching. Sometimes the skin peels and bleeds. In the mouth, giulia is called thrush, and may cause white thickened areas. A Giulia rash is most often treated with an antifungal cream, gel, or powder. . The rash will clear a few days after starting the medicine. Infections that don?t go away may need a prescription medicine. In rare cases, a bacterial infection can also occur. Home care Your healthcare provider will advise using an antifungal cream, powder, or gel for the rash. He or she may also prescribe a medicine for the itch. Follow all instructions for using these medicines. General care ? Keep your skin clean by washing the area twice a day. ? Use the medicine as directed until your rash is gone. Once the skin has healed, keep it dry to prevent another infection. ? If you are overweight, talk with your healthcare provider about a plan to lose extra weight. ? Don't wear tight-fitting clothes. Follow-up care Follow up with your healthcare provider, or as advised. Your rash will clear in 7 to 14 days. Call your provider if the rash is not gone after 14 days. When to get medical advice Call your healthcare provider right away if any of these occur: ? Pain or redness that gets worse or spreads ? Fluid coming from the skin ? Yellow crusts on the skin ? Fever of 100.4?F (38?C) or higher, or as directed by your provider ? [id number] [employer]. [address] [place] [address]. All rights reserved. This information is not intended as a substitute for professional medical care. Always follow your healthcare professional's instructions. Apply the topical antifungal to the affected area as prescribed. Wash area with mild soap and water. Be sure to dry the area completely. Recommend applying a barrier to prevent the skin around your bellybutton from rubbing. You may use an old cotton shirt or a gauze pad. Continue to monitor for worsening signs of infection such as increased redness, warmth, pain, drainage, or odor from the area. Follow-up with your primary care provider within the week, sooner if needed. Go to the emergency department for any new or worsening symptoms. Ordered: ketoconazole topical, 1 domenic, Topical, Daily, X 14 days, # 30 g, 0 Refill(s), 03/08/21 17:05:00 EDT,Pharmacy: [facility]/pharmacy #[id number] Evaluation + Plan note No data available for this section General Surgery [facility] Evaluation note* Diagnosis Multiple sclerosis (HCC)- Primary Multiple sclerosis documented in this encounter [facility] note* Diagnosis Multiple sclerosis (HCC) Multiple sclerosis Encounter for long-term (current) use of medications Encounter for long-term (current) use of other medications documented in this encounter [facility] note* Diagnosis Multiple sclerosis (HCC)- Primary Multiple sclerosis [facility]* Diagnosis Multiple sclerosis (HCC)- Primary Multiple sclerosis Encounter for long-term (current) use of medications Encounter for long-term (current) use of other medications [facility]* Diagnosis Multiple sclerosis (HCC)- Primary Multiple sclerosis documented [facility]* Diagnosis Multiple sclerosis (HCC) Multiple sclerosis Encounter for long-term (current) use of medications Encounter for long-term (current) use of other medications documented [facility]* Diagnosis Spinal stenosis of lumbar region without neurogenic claudication- Primary Spinal stenosis, lumbar region, without neurogenic claudication Multiple sclerosis (HCC) Multiple sclerosis documented in this encounter [facility] note* Diagnosis Multiple sclerosis (HCC) Multiple sclerosis [facility]* Diagnosis Spinal stenosis of lumbar region without neurogenic claudication Spinal stenosis, lumbar region, without neurogenic claudication documented in this encounter [facility]* Diagnosis Onset Date Resolution Status Bronchitis noneactive [facility] Work Phone: Evaluation note* Diagnosis Onset Date Resolution Status Bronchitis noneactive Bronchitis acute [facility] Work Phone: Evaluation note* Diagnosis Radiculopathy, lumbar region- Primary Thoracic or lumbosacral neuritis or radiculitis, unspecified Spinal stenosis, lumbar region, without neurogenic claudication Lumbar spondylosis Lumbosacral spondylosis without myelopathy Multiple sclerosis (HCC) Multiple sclerosis documented in this encounter [facility] note* Diagnosis Multiple sclerosis (HCC)- Primary Multiple sclerosis [facility]* Diagnosis Radiculopathy, lumbar region- Primary Thoracic or lumbosacral neuritis or radiculitis, unspecified Lumbar spondylosis Lumbosacral spondylosis without myelopathy documented in this encounter [facility] general Narrative - Reported* Type Description Date Medical History Esophageal reflux Medical History Multiple sclerosis Medical History Polycystic ovarian disease Medical History Hypothyroid Medical History depression Medical History Anxiety Surgical History tonsillectomy Surgical History cholecystectomy Hospitalization History see above [place] [facility] Discharge instructions No data available for this section General Surgery [facility] Progress note No data available for this section General Surgery Annmarie Reason for Referral Specialty Diagnoses / Procedures Referred By Deedee t Referred To Contact MR IMAGING Diagnoses Multiple sclerosis (HCC) Encounter for long-term (current) use of medications Procedures MRI BRAIN WO/W IVCON MRI BRAIN Autumn Monreal MD [address] [id number] Mr Imaging Referral ID Status Reason Start Date Expiration Date V isits Requested Visits Authorized [id number] Closed Auto-Generate d Referral 10/25/2021 07/23/2022 1 1 Specialty Diagnoses / Procedures Referred By Deedee t Referred To Contact MR IMAGING Diagnoses Multiple sclerosis (HCC) Encounter for long-term (current) use of medications Procedures MRI CERVICAL SPINE WO/W IVCON MRI SPINAL CANAL CERVICAL W/O & W/CONTR MATRL Yoly Blanacs, [place].MVA REACTOR OPERATOR [address] [id number] Mr Imaging Referral ID Status Reason Start Date Expiration Date Visits Requested Visits Authorized [id number] Pending Review Auto-Generat ed Referral 09/02/2022 10/02/2023 1 1 Specialty Diagnoses / Procedures Referred By Deedee edwards Referred To Contact MR IMAGING Diagnoses Multiple sclerosis (HCC) Encounter for long-term (current) use of medications Procedures MRI BRAIN WO/W IVCON MRI BRAIN BRAIN STEM W/O W/CONTRAST MATERIAL Yoly Blancas, RETAIL BUSINESS DEVELOPMENT MANAGER.MVA REACTOR OPERATOR [address] [phone] Mr Imaging Referral ID Status Reason Start Date Expiration Date Visits Requested Visits Authorized [id number] Pending Review Auto-Generat ed Referral 09/02/2022 10/02/2023 1 1 Referral ID Status Reason Start Date Expiration Date V isits Requested Visits Authorized [id number] Closed Auto-Generate d Referral 01/04/2023 07/23/2023 1 1 Referral ID Status Reason Start Date Expiration Date V isits Requested Visits Authorized [id number] Closed Auto-Generate d Referral 01/04/2023 07/23/2023 1 1 Specialty Diagnoses / Procedures Referred By Contac t Referred To Contact MR IMAGING Diagnoses Spinal stenosis of lumbar region without neurogenic claudication Procedures MRI LUMBAR SPINE WO IVCON MRI SPINAL CANAL LUMBAR W/O CONTRAST MATERIAL Yoly Blancas, RETAIL BUSINESS DEVELOPMENT MANAGER.MVA REACTOR OPERATOR [address] [place] [address] Mr [facility] [address] [address] Referral ID Status Reason Start Date Expiration Date Visits Requested Visits Authorized [id number] Pending Review Auto-Generat ed Referral 08/29/2023 09/27/2024 1 1 Specialty Diagnoses / Procedures Referred By Contac t Referred To Contact MR IMAGING Diagnoses Multiple sclerosis (HCC) Procedures MRI BRAIN WO/W IVCON MRI BRAIN BRAIN STEM W/O W/CONTRAST MATERIAL Yoly Blancas, RETAIL BUSINESS DEVELOPMENT MANAGER.MVA REACTOR OPERATOR [address] [phone] [facility] [place] [address] Referral ID Status Reason Start Date Expiration Date V isits Requested Visits Authorized [id number] Closed Auto-Generate d Referral 11/01/2023 07/23/2024 1 1 Referral ID Status Reason Start Date Expiration Date V isits Requested Visits Authorized [id number] Closed Auto-Generate d Referral 11/01/2023 07/23/2024 1 1 Specialty Diagnoses / Procedures Referred By Contac t Referred To Contact [facility] Diagnoses Radiculopathy, lumbar region Spinal stenosis, lumbar region, without neurogenic claudication Lumbar spondylosis Procedures CONSULT TO PHYSICAL THERAPY PHYSICAL THERAPY EVALUATION HIGH COMPLEX 45 MINS Marielle Garcia, RETAIL BUSINESS DEVELOPMENT MANAGER.MVA REACTOR OPERATOR [address] [place] [address] [facility] [place] [address] [place] [address] Referral ID Status Reason Start Date Expiration Date Visits Requested Visits Authorized [id number] Pending Review Auto-Generat ed Referral 12/29/2023 12/28/2024 1 1 Specialty Diagnoses / Procedures Referred By Contac t Referred To Contact XR IMAGING Diagnoses Radiculopathy, lumbar region Spinal stenosis, lumbar region, without neurogenic claudication Lumbar spondylosis Procedures XR LUMBAR GENERAL 3V AP/LAT/L5-S1 RADEX SPINE LUMBOSACRAL 2/3 VIEWS Marielle Garcia APRN.MVA REACTOR OPERATOR [address] [phone] [place] [address] Referral ID Status Reason Start Date Expiration Date Visits Requested Visits Authorized [id number] Pending Review Auto-Generat ed Referral 12/29/2023 01/27/2025 1 1 Summary Purpose Family History No Family History Records Found Relationship Condition Age at Onset Recorded Date/T deion father Diabetes mellitus Unknown Not Specified Unknown Advance Directives No Advanced Directives Records Found Advance Directive Response Recorded Date/ Time Advance Directives No September 24 5:28pm Medications Administered Section Inactive Administered Medications - up to 3 most recent administrations Medication Order MAR Action Action Date Dose Rate Site acetaminophen 1,000 mg tab(s) (TYLENOL) 1,000 mg, ORAL, ONCE, 1 dose, On Mon07/13/22 at 0930, No more than 4000 mg of acetaminophen should be given per day (FROM ALL SOURCES) Given 07/13/2022 9:20 AM EST 1,000 mg diphenhydrAMINE 50 mg (BENADRYL) 50 mg, ORAL, ONCE, 1 dose, On Mon07/13/22 at 0930 Given 07/13/2022 9:20 AM EST 50 mg methylPREDNISolone sod succinate(PF) 100 mg injection (SOLU-Medrol) 100 mg, INTRAVENOUS, ONCE, 1 dose, On Mon07/13/22 at 0930 Given 07/13/2022 9:21 AM EST 100 mg ocrelizumab 600 mg in NaCl 0.9% 500 mL (OCREVUS) 600 mg, INTRAVENOUS, ONCE, 1 dose, On Mon07/13/22 at 0930, Subsequent infusion. Subsequent infusion. Start infusion at 100 mL/hour for 15 minutes, then increase to 200 mL/hour for 15 minutes, then increase to 250 mL/hour for 30 minutes, then increase to 300 mL/hour for remainder of infusion. Maximum rate = 300mL/hour. APPROXIMATE TOTAL VOLUME: 560 mL EXP: 07/14/2022@0930 Administer with 0.2 micron filter. Refrigerate - Protect From Light. Exp: (24 HR) Rate/Dose Change 07/13/2022 10:53 AM EST 300 mL/hr Rate/Dose Change 07/13/2022 10:20 AM EST 250 mL /hr Rate/Dose Change 07/13/2022 10:05 AM EST 200 mL /hr Inactive Administered Medications - up to 3 most recent administrations Medication Order MAR Action Action Date Dose Rate Site acetaminophen 1,000 mg tab(s) (TYLENOL) 1,000 mg, ORAL, ONCE, 1 dose, On Mon01/11/23 at 0930, No more than 4000 mg of acetaminophen should be given per day (FROM ALL SOURCES) Given 01/11/2023 9:20 AM EDT 1,000 mg diphenhydrAMINE 50 mg (BENADRYL) 50 mg, ORAL, ONCE, 1 dose, On Mon01/11/23 at 0930 Given 01/11/2023 9:20 AM EDT 50 mg methylPREDNISolone sod succinate(PF) 100 mg injection (SOLU-Medrol) 100 mg, INTRAVENOUS, ONCE, 1 dose, On Mon01/11/23 at 0930 Given 01/11/2023 9:20 AM EDT 100 mg ocrelizumab 600 mg in NaCl 0.9% 500 mL (OCREVUS) 600 mg, INTRAVENOUS, ONCE, 1 dose, On Mon01/11/23 at 0930, Subsequent infusion. Subsequent infusion. Start infusion at 100 mL/hour for 15 minutes, then increase to 200 mL/hour for 15 minutes, then increase to 250 mL/hour for 30 minutes, then increase to 300 mL/hour for remainder of infusion. Maximum rate = 300mL/hour. APPROXIMATE TOTAL VOLUME: 560 mL EXP: 01/12/2023@0930 Administer with 0.2 micron filter. Refrigerate - Protect From Light. Exp: (24 HR) Rate/Dose Change 01/11/2023 11:09 AM EDT 300 mL/hr Rate/Dose Change 01/11/2023 10:38 AM EDT 250 mL /hr Rate/Dose Change 01/11/2023 10:22 AM EDT 200 mL /hr Chief Complaint and Reason for Visit Chief Complaint cough, congestion Chest congestion R06.02 - Shortness of breath Reason for Visit Bronchitis Chief Complaint cough, congestion Chest congestion R06.02 - Shortness of breath Reason for Visit Bronchitis Bronchitis Additional Source Comments Source Comments (unrecognize d section and content) In the event this informatio n is protected by the Federal Confidentiality of Alcohol and Drug Abuse Patient Records regulations: The Federal rules restrict any use of the information to criminally investigate or prosecute any alcohol or drug abuse patient.[facility] the event this information is protected by the Federal Confidentiality of Alcohol and Drug Abuse Patient Records regulations: The Federal rules restrict any use of the information to criminally investigate or prosecute any alcohol or drug abuse patient.[facility] the event this information is protected by the Federal Confidentiality of Alcohol and Drug Abuse Patient Records regulations: The Federal rules restrict any use of the information to criminally investigate or prosecute any alcohol or drug abuse patient.[facility] the event this information is protected by the Federal Confidentiality of Alcohol and Drug Abuse Patient Records regulations: The Federal rules restrict any use of the information to criminally investigate or prosecute any alcohol or drug abuse patient.[facility] the event this information is protected by the Federal Confidentiality of Alcohol and Drug Abuse Patient Records regulations: The Federal rules restrict any use of the information to criminally investigate or prosecute any alcohol or drug abuse patient.[facility] the event this information is protected by the Federal Confidentiality of Alcohol and Drug Abuse Patient Records regulations: The Federal rules restrict any use of the information to criminally investigate or prosecute any alcohol or drug abuse patient.[facility] the event this information is protected by the Federal Confidentiality of Alcohol and Drug Abuse Patient Records regulations: The Federal rules restrict any use of the information to criminally investigate or prosecute any alcohol or drug abuse patient.[facility] the event this information is protected by the Federal Confidentiality of Alcohol and Drug Abuse Patient Records regulations: The Federal rules restrict any use of the information to criminally investigate or prosecute any alcohol or drug abuse patient.[facility] the event this information is protected by the Federal Confidentiality of Alcohol and Drug Abuse Patient Records regulations: The Federal rules restrict any use of the information to criminally investigate or prosecute any alcohol or drug abuse patient.[facility] the event this information is protected by the Federal Confidentiality of Alcohol and Drug Abuse Patient Records regulations: The Federal rules restrict any use of the information to criminally investigate or prosecute any alcohol or drug abuse patient.[facility] the event this information is protected by the Federal Confidentiality of Alcohol and Drug Abuse Patient Records regulations: The Federal rules restrict any use of the information to criminally investigate or prosecute any alcohol or drug abuse patient.[facility] the event this information is protected by the Federal Confidentiality of Alcohol and Drug Abuse Patient Records regulations: The Federal rules restrict any use of the information to criminally investigate or prosecute any alcohol or drug abuse patient.[facility] the event this information is protected by the Federal Confidentiality of Alcohol and Drug Abuse Patient Records regulations: The Federal rules restrict any use of the information to criminally investigate or prosecute any alcohol or drug abuse patient.[facility] the event this information is protected by the Federal Confidentiality of Alcohol and Drug Abuse Patient Records regulations: The Federal rules restrict any use of the information to criminally investigate or prosecute any alcohol or drug abuse patient.[facility] the event this information is protected by the Federal Confidentiality of Alcohol and Drug Abuse Patient Records regulations: The Federal rules restrict any use of the information to criminally investigate or prosecute any alcohol or drug abuse patient.[facility] Center[facility] the event this information is protected by the Federal Confidentiality of Alcohol and Drug Abuse Patient Records regulations: The Federal rules restrict any use of the information to criminally investigate or prosecute any alcohol or drug abuse patient.[facility] Center[facility] the event this information is protected by the Federal Confidentiality of Alcohol and Drug Abuse Patient Records regulations: The Federal rules restrict any use of the information to criminally investigate or prosecute any alcohol or drug abuse patient.[facility] Center[facility] the event this information is protected by the Federal Confidentiality of Alcohol and Drug Abuse Patient Records regulations: The Federal rules restrict any use of the information to criminally investigate or prosecute any alcohol or drug abuse patient.[facility] Center[facility] the event this information is protected by the Federal Confidentiality of Alcohol and Drug Abuse Patient Records regulations: The Federal rules restrict any use of the information to criminally investigate or prosecute any alcohol or drug abuse patient.[facility] Teams (unrecognized sec tion and content) Computer Operations Analyst Relationship Specialty Start Date End Date Jayme Costa PCP - General Internal Medicine 08/12/13 Computer Operations Analyst Relationship Specialty Start Date End Date Jayme Costa PCP - General Internal Medicine 08/12/13 Computer Operations Analyst Relationship Specialty Start Date End Date Jayme Costa PCP - General Internal Medicine 08/12/13 Computer Operations Analyst Relationship Specialty Start Date End Date NadsoloJayme ryan PCP - General Internal Medicine 08/12/13 Computer Operations Analyst Relationship Specialty Start Date End Date Jayme Costa PCP - General Internal Medicine 08/12/13 Computer Operations Analyst Relationship Specialty Start Date End Date Jayme Costa PCP - General Internal Medicine 08/12/13 Computer Operations Analyst Relationship Specialty Start Date End Date Jayme Costa PCP - General Internal Medicine 08/12/13 Computer Operations Analyst Relationship Specialty Start Date End Date Jayme Costa PCP - General Internal Medicine 08/12/13 Computer Operations Analyst Relationship Specialty Start Date End Date ColeenJayme ryan PCP - General Internal Medicine 08/12/13 Computer Operations Analyst Relationship Specialty Start Date End Date Jayme Costa PCP - General Internal Medicine 08/12/13 Computer Operations Analyst Relationship Specialty Start Date End Date Jayme Costa PCP - General Internal Medicine 08/12/13 Computer Operations Analyst Relationship Specialty Start Date End Date Jayme Costa PCP - General Internal Medicine 08/12/13 Computer Operations Analyst Relationship Specialty Start Date End Date Jayme Costa PCP - General Internal Medicine 08/12/13 Team Status: Active Member Role Status Dates Jayme Costa MD Primary Care Provider Active Team Status: Inactive Member Role Status Dates Erica Perry NP-C Attending Provider Active S tart: September 25, 2023 End: September 25, 2023 Jayme Costa MD Primary Care Provider Active S tart: September 25, 2023 End: September 25, 2023 Team Status: Inactive Member Role Status Dates Jayme Costa MD Primary Care Provider Active S tart: December 19, 2023 End: December 19, 2023 Shelbie Allred APRN Attending Provider Active S tart: December 19, 2023 End: December 19, 2023 Team Status: Active Member Role Status Dates Jayme Costa MD Primary Care Provider Active S tart: December 19, 2023 Shelbie Allred APRN Attending Provider Active S tart: December 19, 2023 Computer Operations Analyst Relationship Specialty Start Date End Date Jayme Costa PCP - General Internal Medicine 08/12/13 Computer Operations Analyst Relationship Specialty Start Date End Date Jayme Costa PCP - General Internal Medicine 08/12/13 Computer Operations Analyst Relationship Specialty Start Date End Date Jayme Costa PCP - General Internal Medicine 08/12/13 Reason for Visit (unrecogniz ed section and content) Specialty Diagnoses / Procedures Referred By Deedee edwards Referred To Contact MR IMAGING Diagnoses Multiple sclerosis (HCC) Encounter for long-term (current) use of medications Procedures MRI BRAIN WO/W IVCON MRI BRAIN Autumn Monreal MD [address] [place] [address] Mr Imaging Referral ID Status Reason Start Date Expiration Date V isits Requested Visits Authorized [id number] Closed Auto-Generate d Referral 10/25/2021 07/23/2022 1 1 Specialty Diagnoses / Procedures Referred By Contac t Referred To Contact Diagnoses Multiple sclerosis (HCC) MS Procedures INJECTION, OCRELIZUMAB, 1 MG OCRELIZUMAB Yoly Blancas, RETAIL BUSINESS DEVELOPMENT MANAGER.MVA REACTOR OPERATOR [address] [place] [address] Neur Treatment [facility] [address] [place] [address] Referral ID Status Reason Start Date Expiration Date V isits Requested Visits Authorized [id number] Authorized 05/15/2020 12/17/2023 99 99 Reason Comments Established Patient Follow-Up Reason Comments Refill Request Specialty Diagnoses / Procedures Referred By Contac t Referred To Contact MR IMAGING Diagnoses Multiple sclerosis (HCC) Encounter for long-term (current) use of medications Procedures MRI BRAIN WO/W IVCON MRI BRAIN BRAIN STEM W/O W/CONTRAST MATERIAL Yoly Blancas, RETAIL BUSINESS DEVELOPMENT MANAGER.MVA REACTOR OPERATOR [address] [place] [address] Mr Imaging Referral ID Status Reason Start Date Expiration Date V isits Requested Visits Authorized [id number] Closed Auto-Generate d Referral 01/04/2023 07/23/2023 1 1 Reason Comments Established Patient Follow-Up Reason Comments Radiology MRI Specialty Diagnoses / Procedures Referred By Contac t Referred To Contact MR IMAGING Diagnoses Multiple sclerosis (HCC) Procedures MRI BRAIN WO/W IVCON MRI BRAIN BRAIN STEM W/O W/CONTRAST MATERIAL Yoly Blancas, RETAIL BUSINESS DEVELOPMENT MANAGER.MVA REACTOR OPERATOR [address] [place] [address] [place] [address] Referral ID Status Reason Start Date Expiration Date V isits Requested Visits Authorized [id number] Closed Auto-Generate d Referral 11/01/2023 07/23/2024 1 1 Specialty Diagnoses / Procedures Referred By Contac t Referred To Contact MR IMAGING Diagnoses Spinal stenosis of lumbar region without neurogenic claudication Procedures MRI LUMBAR SPINE WO IVCON MRI SPINAL CANAL LUMBAR W/O CONTRAST MATERIAL Yoly Blancas, RETAIL BUSINESS DEVELOPMENT MANAGER.MVA REACTOR OPERATOR [address] [place] [address] Mr Imaging [place] [address] Referral ID Status Reason Start Date Expiration Date V isits Requested Visits Authorized [id number] Closed Auto-Generate d Referral 11/01/2023 07/23/2024 1 1 Reason Comments New Patient Referral ID Status Reason Start Date Expiration Date V isits Requested Visits Authorized [id number] Authorized 05/15/2020 01/16/2025 9 9 Reason Comments Leg Pain INFORMATION SOURCE (unrecogn ized section and content) DATE CREATED AUTHOR 12/15/2021 [facility] DATE CREATED AUTHOR AUTHOR'S ORGANIZ ATION 06/27/2022 [facility] DATE CREATED AUTHOR AUTHOR'S ORGANIZ ATION 02/24/2023 [facility] DATE CREATED AUTHOR AUTHOR'S ORGANIZ ATION 12/20/2023 [facility] DATE CREATED AUTHOR AUTHOR'S ORGANIZ ATION 01/20/2024 [facility] DATE CREATED AUTHOR AUTHOR'S ORGANIZ ATION 02/21/2024 [facility] Goals (unrecognized section and content) Goals may be documented in a n alternate section FOR RECORDS PERTAINING TO PATIENTS WHO ARE OR HAVE BEEN ENROLLED IN A CHEMICAL DEPENDENCY/SUBSTANCEABUSE PROGRAM, SOME INFORMATION MAY BE OMITTED. This clinical summary was aggregated from multiple sources. Caution should be exercised in using it in the provision of clinical care. This summary normalizes information from multiple sources, and as a consequence, information in this document may materially change the coding, format and clinical context of patient data. In addition, data may be omitted in some cases. CLINICAL DECISIONS SHOULD BE BASED ON THE PRIMARY CLINICAL RECORDS. [employer] [facility]. provides no warranty or guarantee of the accuracy or completeness of information in this document.
[2024-03-21 14:10] LABS: Age Gdln ACOG Testing Note (.); IGP, rfx Aptima HPV ASCU Note (.)
== END 2024-03-18 21:12 | disposition home or self-care (01) ==
LOC: LAB 21:11
PROVIDERS: PCP Family Medicine; Visit Provider Physician Assistant
DX: Z01.419 Encounter for gynecological examination (general) (routine) without abnormal findings (principal)
CPT/HCPCS: 88175

== ENCOUNTER 2024-04-15 09:56 | Outpatient (OUT) | payer OTHER, SELFPAY ==
--- NOTE | 2024-04-15 | US_ITS ---
[address] [address] Patient Name: KASHIF JAQUEZ MRN: [id number] date: 1995 Sex: F Assigned Patient Location: [facility] Current Patient Location: Accession/Order Number: [id number] Exam Date: 04/15/2024 09:59 Report Date: 04/16/2024 07:41 At the request of: ELVIRA MORALES Procedure: US pelvis w/ transvaginal EXAMINATION: US pelvis w/ transvaginal HISTORY: POLYCYSTIC OVARIAN SYNDROME COMPARISON: No relevant comparison available. TECHNIQUE: Transabdominal and/or transvaginal sonographic examination was performed as indicated by examination type. FINDINGS: UTERUS: Normal size and appearance. Uterus size: 6.5 a 2.7 x 4.2 cm ENDOMETRIUM: Normal homogeneous appearance. Endometrial thickness: 3 mm RIGHT OVARY: Contains a 3.0 cm benign-appearing cyst. Duplex Doppler demonstrates normal waveform and flow; resistive index 0.5. Ovary size: 3.4 x 2.6 x 2.7 cm LEFT OVARY: Normal size and appearance. Duplex Doppler demonstrates normal waveform and flow; resistive index 0.6. Ovary size: 1.5 x 1.2 x 1.6 cm CUL-DE-SAC: Unremarkable. No significant free fluid. BLADDER: Unremarkable. OTHER: None. US/US pelvis w/ transvaginal IMPRESSION: 1. Right ovary contains a benign-appearing 3.0 cm cyst. 2. No increased number of ovarian cysts to suggest polycystic ovarian syndrome. Electronically authenticated by: ESME WILLIAMSON Date: 04/16/2024 07:41
== END 2024-04-15 09:57 | disposition home or self-care (01) ==
LOC: NOMS 09:56
PROVIDERS: PCP Family Medicine; Visit Provider Physician Assistant
DX: E28.2 Polycystic ovarian syndrome (principal)
CPT/HCPCS: 76830; 76856

== ENCOUNTER 2024-07-28 10:49 | Emergency (ER) | payer OTHER, SELFPAY ==
[2024-07-28 10:54] VITALS: BP 153/97; PULSE 89; TEMP 36.9; O2SAT 96; BMI 42.0
--- NOTE | 2024-07-28 11:23 | XR_ITS ---
The [address] [address] Patient Name: KASHIF JAQUEZ MRN: [id number] date: 1995 Sex: F Assigned Patient Location: ER Current Patient Location: ER Accession/Order Number: [id number] Exam Date: 07/28/2024 11:30 Report Date: 07/28/2024 12:10 At the request of: MONIKA SPAULDING Procedure: XR foot LT min 3V EXAM: XR foot LT min 3V HISTORY: left foot pain COMPARISON: None. TECHNIQUE: AP, oblique and lateral views of the left foot performed. FINDINGS: There is an acute nondisplaced fracture through the proximal fifth metatarsal shaft. There is mild soft tissue swelling along the lateral aspect of the foot. The bone mineralization is normal. The joint spaces are normal. There is an accessory ossicle along the dorsal margin of the talonavicular articulation. XR/XR foot LT min 3V IMPRESSION: There is an acute nondisplaced fracture through the proximal fifth metatarsal shaft with mild soft tissue swelling along the lateral aspect of the foot. Electronically authenticated by: AMRIK MURCIA Date: 07/28/2024 12:10
--- NOTE | 2024-07-28 12:32 | ED_ITS ---
HPI HPI - Extremity Injury (Lower) General Chief Complaint: Extremity Injury, Lower Stated Complaint: LOWER EXTREMITY Time Seen by Provider: 07/28/24 11:00 Source: patient Mode of arrival: Wheelchair Limitations: no limitations History of Present Illness HPI Narrative: pt felt a pop and severe pain the other day while getting into the car. prior to that she had experienced pain along the outside edge of the left foot. She denied any recent injury or change in activity. Related Data Home Medications ?Medication ?Instructions ?Recorded ?Confirmed aripiprazole 15 mg tablet 15 mg PO DAILY 01/24/23 10/27/23 dextroamphetamine-amphetamine ER 20 mg PO DAILY 01/24/23 10/27/23 20 mg 24hr capsule,extend release ferrous sulfate 325 mg (65 mg 325 mg PO DAILY 01/24/23 10/27/23 iron) tablet levothyroxine 75 mcg tablet 75 mcg PO DAILY 01/24/23 10/27/23 norgestimate-ethinyl estradiol 1 tab PO DAILY 01/24/23 10/27/23 0.18 mg/0.215mg/0.25mg-35 mcg(28)tablet venlafaxine 150 mg 150 mg PO DAILY 01/24/23 10/27/23 capsule,extended release 24 hr Previous Rx's ?Medication ?Instructions ?Recorded methocarbamol 500 mg tablet 500 mg PO Q8H PRN pain 3 days #10 10/27/23 tabs prednisone 20 mg tablet 20 mg PO BID 5 days #10 tabs 10/27/23 Allergies Allergy/AdvReac Type Severity Reaction Status Date / Time glatiramer (copolymer 1) AdvReac Severe Hives Verified 07/28/24 10:57 (From Copaxone) interferon beta-1a (From AdvReac Severe shortness Verified 07/28/24 10:57 Avonex) of breath Opioid HPI Opioid Management Most Recent Pain and Opioid Data: Last Pain Scale 10 10/27/23 14:17 10/27/23 PFSH PFSH Social History Smoking status: Former smoker Little interest or pleasure in doing things: not at all Feeling down, depressed, or hopeless: not at all Exam Narrative Exam Narrative: Vital signs reviewed and nurse's notes. The patient is not hypoxic. General: Alert, no acute distress, patient resting comfortably Skin: warm, intact, no pallor noted Head: Normocephalic, atraumatic Eye: Normal conjunctiva Respiratory: No acute distress Musculoskeletal: No evidence of deformity to the L foot. There is minimal amount of swelling along the 5th metatarsal. There is no ecchymosis. No erythema or warmth noted. DP and PT pulses are intact 2+. Normal sensation, normal capillary refill less than 2 seconds. There is no cyanosis or mottling noted. The patient has no tenderness of the left ankle, heel or achilles. Toes unaffected. There is no pain with calcaneal squeeze, achilles tendon is intact and no defect is palpated. Neurological: alert and orient x4, normal sensory and motor observed. Psychiatric: Cooperative Constitutional Vital Signs, click to edit/add: Last Vital Signs Temp 98.4 F 07/28/24 10:54 Pulse 89 07/28/24 10:54 Resp 16 07/28/24 10:54 BP 153/97 H 07/28/24 10:54 Pulse Ox 96 07/28/24 10:54 O2 Del Method Room Air 07/28/24 10:54 Course Vital Signs Vital signs: Vital Signs Temperature 98.4 F 07/28/24 10:54 Pulse Rate 89 07/28/24 10:54 Respiratory Rate 16 07/28/24 10:54 Blood Pressure 153/97 H 07/28/24 10:54 Pulse Oximetry 96 07/28/24 10:54 Oxygen Delivery Method Room Air 07/28/24 10:54 Temperature 98.4 F 07/28/24 10:54 Pulse Rate 89 07/28/24 10:54 Respiratory Rate 16 07/28/24 10:54 Blood Pressure 153/97 H 07/28/24 10:54 Pulse Oximetry 96 07/28/24 10:54 Oxygen Delivery Method Room Air 07/28/24 10:54 MDM - Extremity Injury (Lower) MDM Narrative Medical decision making narrative: acute left 5th metatarsal fx identified on xray. Pt informed. POst op shoe applied to left foot by Ed nurse and pt given crutches to limit weight bearing. Pt referred to Dr Oakley - Podiatry - for follow up. Imaging Data xr foot: Radiologist's impression: ITS Impressions Foot X-Ray 07/28/24 11:23 IMPRESSION: There is an acute nondisplaced fracture through the proximal fifth metatarsal shaft with mild soft tissue swelling along the lateral aspect of the foot. Electronically authenticated by: AMRIK MURCIA Date: 07/28/2024 12:10 Discharge Plan Discharge Chief Complaint: Extremity Injury, Lower Clinical Impression: Closed nondisplaced fracture of fifth left metatarsal bone Patient Disposition: Home, Self-Care Time of Disposition Decision: 12:36 Prescriptions / Home Meds: No Action aripiprazole 15 mg tablet 15 mg PO DAILY dextroamphetamine-amphetamine 20 mg capsule,extended release 24hr 20 mg PO DAILY ferrous sulfate 325 mg (65 mg iron) tablet 325 mg PO DAILY levothyroxine 75 mcg tablet 75 mcg PO DAILY norgestimate-ethinyl estradiol 0.18/0.215/0.25 mg-35 mcg (28) tablet 1 tab PO DAILY venlafaxine 150 mg capsule,extended release 24hr 150 mg PO DAILY prednisone 20 mg tablet 20 mg PO BID 5 Days Qty: 10 0RF methocarbamol 500 mg tablet 500 mg PO Q8H PRN (Reason: pain) 3 Days Qty: 10 0RF Print Language: Bangladeshi Instructions: Foot Fracture in Adults (ED) Referrals: Jayme Franklin MD [Primary Care Provider] - 1 week
== END 2024-07-28 13:06 | disposition home or self-care (01) ==
PROVIDERS: Emergency Provider Emergency Medicine; PCP Family Medicine
DX: S92.355A Nondisplaced fracture of fifth metatarsal bone, left foot, initial encounter for closed fracture (principal); X58.XXXA Exposure to other specified factors, initial encounter; Z87.891 Personal history of nicotine dependence
CPT/HCPCS: 73630; 99283

== ENCOUNTER 2024-08-13 08:58 | Outpatient (OUT) | payer OTHER, SELFPAY ==
--- NOTE | 2024-08-13 09:30 | XR_ITS ---
[address] [address] Patient Name: KASHIF JAQUEZ MRN: [id number] date: 1995 Sex: F Assigned Patient Location: [facility] Current Patient Location: [facility] Accession/Order Number: [id number] Exam Date: 08/13/2024 09:40 Report Date: 08/13/2024 10:30 At the request of: AMRIK MUELLER Procedure: XR chest 2V PROCEDURE: XR chest 2V DATE: 08/13/2024 8:40 AM [employer]LECT[employer]IC [employer] COMPARISONS: 04/13/2023 CLINICAL INDICATION: 28 years Female Preop exam FINDINGS: The cardiomediastinal silhouette and pulmonary vasculature are within normal limits. The lungs are clear. There is no evidence of pleural effusion or pneumothorax. XR/XR chest 2V IMPRESSION: Chest radiograph is within normal limits. Electronically authenticated by: FABIO NULL Date: 08/13/2024 10:30
--- NOTE | 2024-08-13 09:51 | PM.PRESUREVA ---
History of Present Illness History of Present Illness Chief complaint: nondisplacement of left 5th metatarsal Narrative: Complaints of pain to left fifth metatarsal. With fracture of the left fifth metatarsal currently ambulating with Cam boot Review of Systems ROS Narrative REVIEW OF SYSTEMS: Negative except as stated in HPI, ten or more systems reviewed. Constitutional: No fever, chills, weakness ENT: No sore throat or epistaxis Cardiovascular: No edema, chest pain, palpitations, or activity intolerance Respiratory: No shortness of breath, cough, or wheezing Musculoskeletal: Complains of intermittent discomfort to the left fifth metatarsal intermittent soft tissue swelling Gastrointestinal: No abdominal pain, constipation, diarrhea, or vomiting Genitourinary: No dysuria or hematuria Neurological: No numbness, tingling, weakness, or headache Psychiatric: No mood changes PFSH [facility] Medical History (Updated 08/13/24 @ 09:36 by Cintia Rush) 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 ?H72.92 - Unspecified perforation of tympanic membrane, left ear (ICD-10) Pneumonia ?J18.9 - Pneumonia, unspecified organism (ICD-10) Lumbar radiculopathy ?M54.16 - Radiculopathy, lumbar region (ICD-10) Sciatica ?M54.30 - Sciatica, unspecified side (ICD-10) Multiple sclerosis ?G35 - Multiple sclerosis (ICD-10) History of pilonidal cyst ?Z87.2 - Personal history of diseases of the skin and subcutaneous tissue (ICD-10) Anemia ?D64.9 - Anemia, unspecified (ICD-10) Depression ?F32.A - Depression, unspecified (ICD-10) Bipolar disorder ?F31.9 - Bipolar disorder, unspecified (ICD-10) Anxiety ?F41.9 - Anxiety disorder, unspecified (ICD-10) Hypothyroidism ?E03.9 - Hypothyroidism, unspecified (ICD-10) PCOS (polycystic ovarian syndrome) ?E28.2 - Polycystic ovarian syndrome (ICD-10) Surgical History (Updated 08/13/24 @ 09:23 by Cintia Rush) History of colonoscopy ?Z98.890 - Other specified postprocedural states (ICD-10) History of esophagogastroduodenoscopy (EGD) ?Z98.890 - Other specified postprocedural states (ICD-10) History of cholecystectomy ?Z90.49 - Acquired absence of other specified parts of digestive tract (ICD-10) History of tonsillectomy ?Z90.89 - Acquired absence of other organs (ICD-10) Family History (Updated 08/13/24 @ 09:19 by Cintia Rush) Other Family history of COPD (chronic obstructive pulmonary disease) Family history of DVT Family history of coronary artery disease Family history of diabetes mellitus Family history of heart disease Family history of myocardial infarction Family history of renal failure Family history of thyroid cancer Social History (Updated 08/13/24 @ 09:17 by Cintia Rush) Within the past year, how often did you have a drink containing alcohol: monthly or less Smoking status: Former smoker Do you use any of these nicotine containing products: vaping products Non-prescribed substance use: denies use Previous occupational history: [employer] Highest level of school completed/degree received: some college, no degree Little interest or pleasure in doing things: not at all Feeling down, depressed, or hopeless: not at all Meds Home Medications and Allergies Home Medications ?Medication ?Instructions ?Recorded ?Confirmed ?Type aripiprazole 15 mg tablet 15 mg PO DAILY 01/24/23 08/13/24 History ferrous sulfate 325 mg (65 mg 325 mg PO DAILY 01/24/23 08/13/24 History iron) tablet levothyroxine 75 mcg tablet 75 mcg PO DAILY 01/24/23 08/13/24 History norgestimate-ethinyl estradiol 1 tab PO DAILY 01/24/23 08/13/24 History 0.18 mg/0.215mg/0.25mg-35 mcg(28)tablet venlafaxine 150 mg 150 mg PO DAILY 01/24/23 08/13/24 History capsule,extended release 24 hr cholecalciferol (vitamin D3) 125 125 mcg PO DAILY 08/13/24 08/13/24 History mcg (5,000 unit) tablet (Vitamin D3) metformin 500 mg tablet 500 mg PO BID 08/13/24 08/13/24 History phentermine 37.5 mg tablet 37.5 mg PO DAILY 08/13/24 08/13/24 History (Adipex-P) Allergies Allergy/AdvReac Type Severity Reaction Status Date / Time glatiramer (copolymer 1) AdvReac Severe Hives Verified 08/13/24 09:11 (From Copaxone) interferon beta-1a (From AdvReac Severe shortness Verified 08/13/24 09:11 Avonex) of breath Exam Narrative Exam Narrative: Constitutional: Awake, alert, comfortable, well-appearing, nontoxic, interactive, vital signs as charted Head: Normocephalic, atraumatic Eyes: Conjunctiva and lids normal to inspection, pupils normal ENT: Tympanic membranes pearly landry, nonerythematous, noninjected, naris patent, posterior oropharynx clear, oral mucosa moist Neck: Supple, normal appearance, normal range of motion, no meningeal signs, no lymphadenopathy Respiratory: No respiratory distress, breath sounds clear Cardiovascular: Regular rate and rhythm, strong and regular heart tones Abdomen: Nontender, normal bowel sounds, soft, no CVA tenderness Musculoskeletal: Antalgic gait wearing cam boot left lower extremity, mild soft tissue swelling Skin: No rashes or induration, no lesions, only visible skin inspected Neuro: No neurological deficits, normal sensation Psychiatric: Oriented ?3, normal affect Assessment and Plan Assessment and Plan (1) Closed nondisplaced fracture of fifth left metatarsal bone: Plan Patient with nondisplaced fracture of the fifth metatarsal of the left foot plan is for open reduction and internal fixation of the left fifth metatarsal fracture with Dr. Kimo Oakley on 08/19/2024
[2024-08-13 11:16] LABS: Basophils Percent Auto 0.5 % (0.2-2.0); Eosinophils Absolute Auto 0.2 10^3/uL (0.0-0.7); Eosinophils Percent Auto 2.9 % (0.9-7.0); Hematocrit 44.2 % (36.0-48.0); Hemoglobin 14.3 g/dL (12.0-16.0); Immature Granulocytes Abs Auto 0.01 10^3/uL (0.00-0.03); Immature Granulocytes Pct Auto 0.2 % (0.0-0.5); Lymphocytes Absolute Auto 2.7 10^3/uL (1.2-3.8); Lymphocytes Percent Auto 46.3 % (20.5-60.0); Mean Corpuscular HGB Conc 32.4 g/dL (29.9-35.2); Mean Corpuscular Volume 86.7 fL (81.0-99.0); Mean Platelet Volume 10.1 fL (9.5-13.5); Monocytes Absolute Auto 1.2 10^3/uL (0.3-0.8); Monocytes Percent Auto 19.8 % (1.7-12.0); Neutrophils Absolute Auto 1.8 10^3/uL (1.4-6.5); Neutrophils Percent Auto 30.3 % (43.0-75.0); Platelet Count 441 10^3/uL (150-450); Red Cell Distribution Width 12.5 % (11.0-15.0); White Blood Count 5.9 10^3/uL (4.0-11.0)
== END 2024-08-13 08:59 | disposition home or self-care (01) ==
LOC: PST 08:58
PROVIDERS: PCP Family Medicine; Visit Provider Podiatrist Foot & Ankle Surgery
DX: Z01.810 Encounter for preprocedural cardiovascular examination (principal); Z01.812 Encounter for preprocedural laboratory examination; Z01.818 Encounter for other preprocedural examination; S92.355A Nondisplaced fracture of fifth metatarsal bone, left foot, initial encounter for closed fracture
CPT/HCPCS: 71046; 85025; G0463

== ENCOUNTER 2024-08-15 10:22 | Outpatient (OUT) | payer OTHER, SELFPAY ==
--- NOTE | 2024-08-15 10:26 | XR_ITS ---
[address] [address] Patient Name: KASHIF JAQUEZ MRN: [id number] date: 1995 Sex: F Assigned Patient Location: [facility] Current Patient Location: [facility] Accession/Order Number: [id number] Exam Date: 08/15/2024 10:45 Report Date: 08/15/2024 12:46 At the request of: BEBA COSTA Procedure: XR DEXA axial skeleton EXAMINATION: XR DEXA axial skeleton, 08/15/2024 10:45 AM EST HISTORY: Closed Fracture Of Foot COMPARISON: None. TECHNIQUE: Dual-energy X-ray absorptiometry (DEXA) bone density study performed for the axial skeleton. FINDINGS: Bone mineral density AP spine L1-L4 measures 1.104 g/sq cm. T score -0.6. Normal Lowest bone density right femoral trochanter measures 0.750 g/sq cm. T score -0.9. Normal XR/XR DEXA axial skeleton IMPRESSION: Normal bone mineral density. Low fracture risk 10 year fracture risk is not reported because T score is at or above -1.0 Pharmacologic treatment recommendations * No uniform recommendation applies to all patients. Management plans must be individualized. * Consider initiating pharmacologic treatment in postmenopausal women and men >= 50 years of age who have the following: Primary fracture prevention: * T-score <= - 2.5 at the femoral neck, total hip, lumbar spine, 33% radius (some uncertainty with existing data) by DXA. * Low bone mass (osteopenia: T-score between - 1.0 and - 2.5) at the femoral neck or total hip by DXA with a 10-year hip fracture risk >= 3% or a 10-year major osteoporosis-related fracture risk >= 20% (i.e., clinical vertebral, hip, forearm, or proximal humerus) based on the US-adapted FRAXregistered model. Secondary fracture prevention: * Fracture of the hip or vertebra regardless of BMD [4, 5]. * Fracture of proximal humerus, pelvis, or distal forearm in persons with low bone mass (osteopenia: T-score between - 1.0 and - 2.5). The decision to treat should be individualized in persons with a fracture of the proximal humerus, pelvis, or distal forearm who do not have osteopenia or low BMD [12, 13]. Elyse MS, Hussain SL, Jose KL, Alex EM, Radames KG, AJ, Gardenia ES. The clinician's guide to prevention and treatment of osteoporosis. Osteoporos Int. 2021;33(10):8550-0331. doi: 10.1007/x25262-245-78412-l. Epub 2021Nov 18. Erratum in: Osteoporos Int. 2021Feb 17;: PMID: [id number]; PMCID: [id number]. Electronically authenticated by: BEATRICE JARAMILLO Date: 08/15/2024 12:46
--- OUTSIDE RECORDS SUMMARY | 2024-08-15 10:44 | XMS_ITS | CCD ---
Author Organization [facility] Care Team Providers Care Perioperative Manager Name Role Phone Jayme Schmidt Primary Care Provider JAYME SCHMIDT Primary Care Unavailgloria e JULISSA, JAYME GUADARRAMA Attending Unavailabl e GLENROYEREShelby, JAYME GUADARRAMA Primary Care UnavailMD DAVID Vega Attending Melvini JAYME Ponce Primary Care Physician [phone] MATTHEW, DR GOLDBERG Admitting Unavailable NILL, DR GOLDBERG Consulting Unavailable NILL, DR GOLDBERG Attending Unavailable NADERER, DR JAYME Herrera Primary Care Unavailable NILL, DR GOLDBERG Admitting Unavailable NILL, DR GOLDBERG Consulting Unavailable NILL, DR GOLDBERG Attending Unavailable NADEREShelby, DR JAYME Herrera Primary Care Unavailable IVELISSE, SAMUEL LEOS Consulting Unava ilable GEMBUS, OPAL Consulting Unavailable NADERER, DR JAYME Herrera Primary Care Unavailable NADERER, DR JAYME Herrera Consulting Unavailable NADERER, DR JAYME Herrera Attending Unavailable JULISSA, DR JAYME Herrera Admitting Unavailable Jayme Schmidt Primary Care Provider Erica Perry Unavailable Carol Ann Lees Unavailable Yusuf CASTRO Attending Unavailable GLENROYEREJAYME Ryan Referring Unavailable NILL, Yusuf Ryan Attending Unavailable GLENROYEREJAYME Ryan Referring Unavailable NILL, Yusuf Ryan Attending Unavailable NILDeon, Yusuf Ryan Attending Unavailable Clau Narayan Attending Unavailable Jayme Schmidt Primary Care Provider MD Jayme Schmidt Primary Care Provider ONEIDA Allred Attending Provider [phone] Shelbie Allred Attending Unavailable Shelbie Allred Admitting Unavailable Jayme Schmidt Primary Care Unavailable JAGDEEP, MARIELLE M Referring Unavailable MARIELLE GANNON Attending Unavailable NADERER, JAYME A Primary Care Unavailable Julissa BENÍTEZ, Jayme Herrera Primary Care Provider Jayme Schmidt MD Primary Care Provider JULISSA, JAYME Herrera Primary Care Unavailable CHIZMADIA, YOLY Referring Unavailable NADERER, JAYME A Primary Care Unavailable CHIZMADIA, YOLY Attending Unavailable SELF Referring Unavailable NADERER, JAYME A Primary Care Unavailable SELF Referring Unavailable NADERER, JAYME A Primary Care Unavailable RENSEL, AUTUMN R Attending Unavailable NADERER, JAYME A Primary Care Unavailable RENSEL, AUTUMN R Referring Unavailable SELF Referring Unavailable NADERER, JAYME A Primary Care Unavailable NADERER, JAYME A Primary Care Unavailable RENSEL, AUTUMN R Attending Unavailable NADERER, JAYME Herrera Primary Care Unavailable JAGDEEPMARIELLE SAUCEDO Attending Unavailable NADERER, JAYME A Primary Care Unavailable NADERER, JAYME A Primary Care Unavailable CHIZMADIA, YOLY Referring Unavailable NADERER, JAYME Attending Unavailable NADERER, JAYME Attending Unavailable LEANN, ZOE Attending Unavailable TIMMIS, JONATHAN H Attending Unavailable BUTCH, CASEY Attending Unavailable NADERER, JAYME Attending Unavailable LEANN, ZOE Attending Unavailable NADERER, JAYME Attending Unavailable LEANN, ZOE Attending Unavailable Allergies Allergy Classification Reported Allergen(s) Allergy Type Date of Onset Reaction(s) Facility (20 sources) Glatiramer; Translations: [glatiramer] Drug Allergy 4 Rash, Weal (disorder), hives [facility] (20 sources) Interferon beta-1a; Translations: [interferon beta-1a] Drug Allergy 4 Hives, Shortness of Breath, Dyspnea (finding) [facility] (3 sources) Glatiramer; Translations: [Copaxone] Drug Allergy 5 [facility] Repository (7 sources) Interferon beta-1a; Translations: [Avonex] Drug Allergy 5 short of breath [facility] Repository (2 sources) Glatiramer; Translations: [glatiramer] Drug Allergy 5 [facility] Repository (1 source) interferon beta-1a Drug allergy (disorder) [facility] Repository (1 source) Glatiramer Drug Allergy 4 [facility] Repository (1 source) interferon beta-1a Drug allergy (disorder) 4 [facility] Repository (20 sources) Glatiramer Drug Allergy 3 Unknown [facility] Work Phone: (20 sources) moxifloxacin Drug Allergy 3 Unknown [facility] (20 sources) Interferon Beta-1a Propensity to adverse reactions 4 Anaphylaxis, Hives, Shortness of breath [facility] (1 source) Glatiramer Drug Allergy 4 Rash [facility] Medications Current Medications Medication Drug Class(es) Dates Sig (Normalized) Sig (Original) Amphetamine / Dextroamphetamine (5 sources) Central Nervous System Stimulant Start: 05-12-2022 Adderall 20 mg oral tablet 20 mg, 1 tab(s), Oral, Noon, Refill(s) 0 Start Date: 05/12/22 Status: Ordered Adderall XR Acti ve amphetamine aspartate 5 mg / amphetamine sulfate 5 mg / dextroamphetamine saccharate 5 mg / dextroamphetamine sulfate 5 mg oral tablet (20 sources) Central Nervous System Stimulant Start: 03-18-2024 End: 06-27-2024 take 1 tablet by mouth in the morning amphetamine-dextroamphetamine (Adderall) 30 MG tablet Indications: Multiple sclerosis (CMS/HCC) Take 1 tablet (30 mg) by mouth in the morning and 1 tablet (30 mg) before bedtime. 60 tablet 04/18/2024 05/18/2024 Active Start: 02-13-2024 End: 04-11-2024 take 2 capsules by mouth every twenty-four hours in the morning amphetamine-dextroamphetamine XR (Addera ll XR) 20 MG 24 hr capsule Indications: Multiple sclerosis (CMS/HCC) Take 2 capsules (40 mg) by mouth in the morning. 60 capsule 03/12/2024 03/18/2024 Discontinued Start: 09-25-2023 Dextroamphetam ine-Amphetamine Active PO September 25, 2023 1:00am Start: 10-14-2019 Adderall XR 30 mg Cap-ER Refills(s) 0 Start Date: 10/14/19 Status: Ordered Start: 04-11-2019 End: 05-24-2024 take 1 tablet by mouth twice daily dextroamphetamine-amphetamine (ADDERALL) 20 mg tablet Indications: Chronic fatigue syndrome Take 1 tablet by mouth two times a day for 30 days. 04/24/2024 Active Comment on above: Take 30 mg by mouth once daily. Take by mouth. ARIPiprazole 15 mg oral tablet (20 sources) Atypical Antipsychotic Start: 10-31-19 take 1 tablet by mouth once daily ARIPiprazole (Abilify) 15 MG tablet Indications: Bipolar disorder, current episode depressed, mild (CMS/HCC) , Mild depressed bipolar I disorder (CMS/HCC) TAKE 1 TABLET BY MOUTH EVERY DAY 90 tablet 3 10/31/2023 Active Start: 09-25-2023 Aripiprazole A ctive MG PO September 25, 2023 1:00am Start: 11-06-2020 take 1 tablet by silver th once daily at bedtime ARIPiprazole (ABILIFY) 10 mg tablet TAKE 1 TABLET BY MOUTH EVERYDAY AT BEDTIME 11/06/2020 Active Abilify Active Comment on above: [...] bed daily cholecalciferol 0.05 mg oral capsule (20 sources) Vitamin D Start: 03-08-2017 take 1 capsule by mouth once daily Cholecalcifero l, Vitamin D3, 2,000 unit cap TAKE ONE CAPSULE BY MOUTH EVERY DAY 30 capsule 5 03/08/2017 Active End: 06-24-2024 take 1 tablet by mouth once daily cholecalciferol (Vitamin D-3) 50 MCG (1999 UT) tablet Take 1 tablet by mouth 1 (one) time each day at the same time. 06/24/2024 Discontinued Comment on above: TAKE ONE CAPSULE BY MOUTH EVERY DAY cholestyramine resin 4000 mg powder for oral suspension (1 source) Bile Acid Sequestrant Start: 07-05-20 Questran 4 g/9 g oral powder = 1 packet(s), Oral, BID, # 60 EA, Refills(s) 3, Pharmacy: [facility]/pharmacy #[id number], 165, cm, 05/24/22 14:22:00 EDT, Height/Length Dosing, 106, kg, 05/24/22 14:22:00 EDT, Weight Dosing Start Date: 07/05/22 Status: Ordered clotrimazole 10 mg/ml topical cream (4 sources) Azole Antifungal Start: 07-30-19 clotrimazole (Lotrimin) 1 % cream Indications: Tinea pedis, unspecified laterality Apply topically 2 (two) times a day 60 g 2 07/30/2024 Active dicyclomine hydrochloride 20 mg oral tablet (20 sources) Anticholinergic Start: 05-12-20 End: 06-24-20 dicyclomine (Bentyl) 20 MG tablet Take 20 mg by mouth in the morning and 20 mg at noon and 20 mg in the evening and 20 mg before bedtime. Take before meals. 05/12/2022 Active Ethinyl Estradiol / norgestimate (20 sources) Progestin, Estrogen Start: 02-14-20 take 1 tablet by mouth once daily norgestimate-ethiny l estradiol (Ortho Tri-Cyclen,Trinessa ) 0.18/0.215/0.25 MG-35 MCG tablet Indications: Family planning TAKE 1 TABLET BY MOUTH EVERY DAY 84 tablet 3 02/14/2024 Active Start: 05-12-2022 take 1 tablet by silver th once daily Tri-Sprintec 35 mcg Tab = 1 tab(s), Oral, Daily, Refills(s) 0 Start Date: 05/12/22 Status: Ordered ferrous sulfate 325 mg oral tablet (20 sources) Start: 09-25-2023 Ferrous Sulfat e Active MG PO September 25, 2023 1:00am Start: 10-14-2019 ferrous sulfat e 325 mg Tab Refills(s) 0 Start Date: 10/14/19 Status: Ordered Start: 10-05-2015 take 1 tablet by silver twice daily ferrous sulfate 325 (65 Fe) MG tablet Indications: Other iron deficiency anemia TAKE 1 TABLET BY MOUTH TWICE A DAY 180 tablet 3 10/31/2023 Active take 1 tablet by silver th once daily Ferrous Sulfate 325 (65 Fe) MG 1 tablet Orally Once a day Active Comment on above: Take 1 tablet by silver twice daily. hydrocortisone 10 mg/ml / neomycin 3.5 mg/ml / polymyxin b [id number] unt/ml otic suspension (1 source) Aminoglycoside Antibacterial, Polymyxin-class Antibacterial, Corticosteroid Start: 2022 [id number] C [id number] 3 drops left ear Three times a day for 7 days Jul, Active iv contrast (will be provided with radiology test) (7 sources) Start: 2024 End: 2024 inject 1 dose intravenously once iv contrast (will be provided with radiology test) MRI Brain Inject, intravenously, once for 1 [...] MR contrast administration guidelines link 1 Each 07/26/2024 07/27/2024 Active Start: 04-24-2024 End: 04-25-2024 iv contrast (will be provide d with radiology test) MRI CSP Inject, intravenously, once for 1 [...] MR contrast administration guidelines link. 1 Each 04/24/2024 04/25/2024 Active Start: 04-24-2024 End: 04-25-2024 inject 1 dose intravenously once iv contrast (will be provided with radiology test) MRI TSP Inject, intravenously, once for 1 dose. No [...] MR contrast administration guidelines link. 1 Each 04/24/2024 04/25/2024 Active Start: 09-02-2022 End: 09-03-2022 inject 1 dose intravenously once iv contrast [...] mg oral tablet (20 sources) l-Thyroxine Start: 024 take 1 tablet by mouth once daily levothyroxine (Synthroid, Levoxyl) 75 MCG tablet Indications: Adult hypothyroidism (CMS/HCC) TAKE 1 TABLET BY MOUTH EVERY DAY 30 tablet 5 05/02/2024 Active Start: 09-25-2023 Levothyroxine Active MCG PO September 25, 2023 1:00am Start: 10-14-2019 levothyroxine 75 mcg (0.075 mg) Tab Refills(s) 0 Start Date: 10/14/19 Status: Ordered Levothyroxine So dium 75 MCG Orally daily Not-Taking Comment on above: Take 75 mcg by mouth daily before breakfast. 24 hr metFORMIN hydrochloride 500 mg extended release oral tablet (20 sources) Biguanide Start: 4 End: 4 take 1 tablet by mouth every twenty-four hours in the morning metFORMIN XR (Glucophage-XR) 500 MG 24 hr tablet Indications: PCOS (polycystic ovarian syndrome) Take 1 tablet (500 mg) by mouth in the morning and 1 tablet (500 mg) before bedtime. Do not crush, chew, or split.. 60 tablet 11 06/10/2024 Active Norgestimate-Ethinyl Estradiol (2 sources) Start: 4 Norgestimate-Ethin yl Estradiol Active TAB PO September 25, 2023 1:00am NORGESTIMATE-ETHINYL ESTRADIOL (TRI-PREVIFEM, 28, ORAL) (20 sources) NORGESTIMATE-ETH IN YL ESTRADIOL (TRI-PREVIFEM, 28, ORAL) Indications: Numbness in both hands , Scoliosis , Numbness in both legs Take by mouth. Active NORGESTIMATE-ETH INYL ESTRADIOL (TRI-PREVIFEM, 28, ORAL) Indications: Numbness in both hands , Scoliosis , Numbness in both legs Take by mouth. 0 Active Comment on above: Take by mouth. 10 ml ocrelizumab 30 mg/ml injection (20 sources) Start: 10-14-2019 Ocrevus 300 mg/10 mL intravenous solution IV, q6mo, Refills(s) 0 Start Date: 10/14/19 Status: Ordered ocrelizumab (Ocr evus) 300 MG/10ML solution Infuse into a venous catheter yearly Yearly for MS Active Ocrevus (4 sources) Ocrevus Active 24 hr oxybutynin chloride 10 mg extended release oral tablet (7 sources) Cholinergic Muscarinic Antagonist Start: 04-24-20 24 take 1 tablet by mouth once daily oxybutynin ER (DITROPAN XL) 10 mg 24 hr tablet Take 1 tablet by mouth once daily. 30 tablet 5 04/24/2024 Active phentermine hydrochloride 37.5 mg oral tablet (12 sources) Sympathomimetic Amine Anorectic Start: 07-31-19 25 End: 08-30-19 25 take 1 tablet by mouth before mealtime phentermine (Adipex-P) 37.5 MG tablet Indications: Encounter for weight management Take 1 tablet (37.5 mg) by mouth in the morning. Take before meals. 30 tablet 07/31/2024 08/30/2024 Active Start: 06-24-2024 End: 07-24-2024 take 40-44.9 tablets by mouth before mealtime phentermine (Adipex-P) 37.5 MG tablet Indications: Class 3 severe obesity due to excess calories without serious comorbidity with body mass index (BMI) of 40.0 to 44.9 in adult (CMS/HCC) Take 1 tablet (37.5 mg) by mouth in the morning. Take before meals. 30 tablet 06/24/2024 Active sulfamethoxazole 800 mg / trimethoprim 160 mg oral tablet (2 sources) Dihydrofolate Reductase Inhibitor Antibacterial, Sulfonamide Antimicrobial Start: 11-09-2021 End: 11-12-2021 take 1 tablet by mouth twice daily sulfamethoxazole-trimethoprim (BACTRIM DS) 800-160 mg per tablet Take 1 tablet by mouth twice daily for 3 days. 6 tablet 0 11/09/2021 11/12/2021 Active Comment on above: Take 1 tablet by silver th twice daily for 3 days. Tri-Previfem 0.18/0.215/0.25 MG-35 MCG (4 sources) take 1 mg by mouth once daily Tri-Previfem 0.18/0.215/0.25 MG-35 MCG Orally Once a day Active 24 hr venlafaxine 150 mg extended release oral capsule (20 sources) Serotonin and Norepinephrine Reuptake Inhibitor Start: 04-03-2024 take 1 capsule by mouth once daily venlafaxine XR (Effexor XR) 150 MG 24 hr capsule Indications: Bipolar 1 disorder, depressed, mild (CMS/HCC) TAKE 1 CAPSULE BY MOUTH EVERY DAY 90 capsule 1 04/03/2024 Active Start: 01-01-2024 [facility] daily venlafaxine XR (Effexor XR) 150 MG 24 hr capsule Indications: Bipolar 1 disorder, depressed, mild (CMS/HCC) TAKE 1 CAPSULE BY MOUTH EVERY DAY 30 capsule 3 01/01/2024 Active Start: 09-25-2023 Venlafaxine Ac tive MG PO September 25, 2023 1:00am Start: 07-30-2023 take 1 capsule by [facility] every hour venlafaxine ER (EFFEXOR XR) 150 mg 24 hr capsule Take 1 capsule by mouth every afternoon. 07/30/2023 Active Start: 10-14-2019 venlafaxine 15 0 mg Cap-ER Refills(s) 0 Start Date: 10/14/19 Status: Ordered Effexor Active Comment on above: Take 1 capsule by [facility] every afternoon. Vitamin D (4 sources) Vitamin D Active Vitamin D3 1999 intl units oral Tab (2 sources) Start: 05-12-2022 take 1 tablet by mouth once daily Vitamin D3 2000 intl units oral Tab 50 mcg, Oral, Daily, tab(s), Refills(s) 0 Start Date: 05/12/22 Status: Ordered Completed/Discontinued Medications Medication Drug Class(es) Dates Sig (Normalized) Sig (Original) acetaminophen 500 mg oral tablet (2 sources) Start: 07-15-2024 End: 07-15-2024 take 1 dose by mouth once, then take 4000 mg by mouth once daily 1,000 mg, ORAL, ONCE, 1 dose, On 07/15/24 at 1100, No more than 4000 mg of acetaminophen should be given per day (FROM ALL SOURCES) Start: 01-17-2024 End: 01-17-2024 acetaminophen 1,000 mg tab(s ) (TYLENOL) [id number] 200 actuat albuterol 0.09 mg/actuat metered dose [...] 1.5 mg/ml oral solution (3 sources) Uncompetitive O-sanqka-M-aspartate Receptor Antagonist, Sigma-1 Agonist Start: 11-20-2022 take 10 mL by mouth every eight hours Argyle DM 7.5-7.5 MG/5ML 10 mL Orally every 8 hours for 5 days Oct, Not-Taking diphenhydrAMINE hydrochloride 25 mg oral capsule (2 sources) Histamine-1 Receptor Antagonist Start: 07-15-2024 End: 07-15-2024 take 1 dose by mouth once 50 mg, ORAL, ONCE, 1 dose, On Mon07/15/24 at 1100 Start: 01-17-2024 End: 01-17-2024 diphenhydrAMINE 50 mg capsul e (BENADRYL) gabapentin 100 mg oral capsule (5 sources) Anti-epileptic Agent Start: 12-29-2023 End: 04-24-2024 take 1 capsule by mouth twice daily gabapentin (NEURONTIN) 100 mg capsule Indications: Radiculopathy, lumbar region , Spinal stenosis, lumbar region, without neurogenic claudication , Lumbar spondylosis Take 1 capsule by mouth two times a day for 90 days. 60 capsule 2 12/29/2023 04/24/2024 Discontinued Ketorolac (8 sources) Nonsteroidal Anti-inflammatory Drug, Cyclooxygenase Inhibitor Start: 01-04-2020 Toradol per 15 mg Dec, 30 mg Start: 09-04-2018 Toradol per 15 mg Aug, 60 mg methylPREDNISolone 125 mg injection (6 sources) Corticosteroid Start: 07-15-2024 End: 07-15-2024 100 mg, INTRAVENOUS, ONCE, 1 dose, On Mon07/15/24 at 1100 Start: 01-17-2024 End: 01-17-2024 methylPREDNISolone sod succi yefri(PF) 100 mg injection (SOLU-Medrol) Start: 08-23-2023 End: 08-29-2023 methylPREDNISolone (MEDROL, SALMA,) 4 mg Dose-Pack Take as directed 21 tablet 0 08/23/2023 08/29/2023 Active Start: 11-20-2022 methylPREDNISo lone 4 MG as directed Orally for daily dose take half with breakfast, half with dinner for 6 days Oct, Not-Taking Comment on above: Take as directed nabumetone 500 mg oral tablet (5 sources) Nonsteroidal Anti-inflammatory Drug Start: 4 End: take 1 tablet by mouth twice daily as needed nabumetone (RELAFEN) 500 mg tablet Indications: Radiculopathy, lumbar region , Spinal stenosis, lumbar region, without neurogenic claudication , Lumbar spondylosis Take 1 tablet by mouth two times a day as needed. 40 tablet 12/29/2023 04/24/2024 Discontinued ocrelizumab 600 mg in NaCl 0.9% 500 mL (OCREVUS) (2 sources) Start: 4 End: 4 600 mg, INTRAVENOUS, ONCE, 1 dose, On 07/15/24 at 1130, Subsequent infusion. Subsequent infusion. Start infusion at 100 mL/hour for 15 minutes, then increase to 200 mL/hour for 15 minutes, then increase to 250 mL/hour for 30 minutes, then increase to 300 mL/hour for remainder of infusion. Maximum rate = 300mL/hour. APPROXIMATE TOTAL VOLUME: 560 mL EXP: 1100 07/16/24 RT Administer with 0.2 micron filter. Refrigerate - EXP: (24 HR) Start: 01-17-2024 End: 01-17-2024 ocrelizumab 600 mg in NaCl 0 .9% 500 mL (OCREVUS) predniSONE 20 mg oral tablet (3 sources) Start: 09-25-2023 End: 12-19-2023 take 40 mg by mouth once daily Prednisone Discontinued 40 MG PO Daily 10 September 25, 2023 1:00am December 19, 2023 1:35pm Start: 04-09-2023 take 1 tablet by silver every twelve hours predniSONE 20 MG 1 tablet Orally bid for 5 days Mar, Active triamcinolone acetonide 40 mg/ml injectable suspension (5 sources) Corticosteroid Start: 04-08-2023 Kenalog-40 Mar, 40 mg Start: 01-04-2020 Kenalog -40 mg Dec, 40 mg Problems Active Problems Problem Classification Problem Date Documented Da te Episodic/Chronic Abdominal pain (7 sources) Right lower quadrant pain; Translations: [Right lower quadrant pain] Onset: 05-24-2022 Episodic Acute bronchitis (1 source) Acute bronchitis due to other specified organisms Episodic Anxiety disorders (20 sources) Generalized anxiety disorder; Translations: [Generalized anxiety disorder] Onset: 03-28-2023 05-12-2022 Chronic Chronic obstructive pulmonary disease and bronchiectasis (5 sources) Bronchitis, not specified as acute or chronic; Translations: [Bronchitis, not specified as acute or chronic] Episodic Deficiency and other anemia (1 source) Iron deficiency anemia, unspecified; Translations: [IRON DEFICIENCY ANEMIA UNSPECIFIED] Onset: 06-27-2022 Episodic Gastrointestinal hemorrhage (4 sources) Hemorrhage of rectum and anus; Translations: [Hemorrhage of anus and rectum] Onset: 05-24-2022 Episodic Headache; including migraine (20 sources) Migraine without aura, not refractory ; Translations: [Migraine without aura, not intractable, without status migrainosus] Onset: 08-16-2015 08-16-2015 Chronic Immunizations and screening for infectious disease (4 sources) Contact with and (suspected) exposure to other viral communicable diseases; Translations: [Contact with and (suspected) exposure to other viral communicable diseases] Episodic Malaise and fatigue (1 source) Chronic fatigue syndrome; Translations: [Chronic fatigue syndrome] 04-24-2024 Chronic Mood disorders (20 sources) Bipolar disorder; Translations: [Mild depressed bipolar I disorder] Onset: 03-28-2023 05-12-2022 Chronic Multiple sclerosis (20 sources) Multiple sclerosis; Translations: [Multiple sclerosis] Onset: 04-24-2014 Chronic Mycoses (6 sources) Tinea pedis; Translations: [Tinea pedis] Onset: 07-30-2024 07-30-2024 Episodic Nutritional deficiencies (20 sources) Vitamin D deficiency; Translations: [Vitamin D deficiency, unspecified] Onset: 05-09-2022 05-12-2022 Chronic Other aftercare (20 sources) Patient encounter status; 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] Onset: 07-14-2017 07-14-2017 Episodic Other aftercare (1 source) 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; Translations: [[employer] ARCHITECT CURRENT DRUG THERAPY] Onset: 06-27-2022 Episodic Other ear and sense organ disorders (2 sources) Hearing loss of left ear; Translations: [Other specified hearing loss, left ear] 06-05-2024 Chronic Other ear and sense organ disorders (1 source) Impacted cerumen, left ear Episodic Other ear and sense organ disorders (1 source) Unspecified acute noninfective otitis externa, left ear Episodic Other ear and sense organ disorders (2 sources) Impacted cerumen of bilateral ears; Translations: [Impacted cerumen, bilateral] 06-05-2024 Episodic Other endocrine disorders (20 sources) Adrenogenital disorder; Translations: [Adrenogenital disorder, unspecified] Onset: 04-12-2005 04-12-2005 Chronic Other endocrine disorders (20 sources) Precocious puberty; Translations: [Precocious puberty] Onset: 04-12-2005 04-12-2005 Chronic Other endocrine disorders (20 sources) Polycystic ovary syndrome; Translations: [Polycystic ovarian syndrome] Onset: 09-18-2023 10-14-2019 Chronic Other endocrine disorders (1 source) Polycystic ovarian syndrome; Translations: [POLYCYSTIC OVARIAN SYNDROME] Onset: 05-09-2022 Chronic Other gastrointestinal disorders (20 sources) Irritable bowel syndrome; Translations: [Irritable bowel syndrome without diarrhea] Onset: 07-05-2022 05-12-2022 Chronic Other gastrointestinal disorders (1 source) Irritable bowel syndrome without diarrhea; Translations: [IRRITABLE BOWEL SYND W/O DIARRHEA] Onset: 06-27-2022 Chronic Other gastrointestinal disorders (4 sources) Irritable bowel syndrome with diarrhea; Translations: [Irritable bowel syndrome with diarrhea] 06-24-2024 Chronic Other gastrointestinal disorders (2 sources) Alteration in bowel elimination 05-24-2022 Episodic Other gastrointestinal disorders (5 sources) Change in bowel habit; Translations: [CHANGE IN BOWEL HABIT] Onset: 06-22-2022 Episodic Other lower respiratory disease (2 sources) Dyspnea; Translations: [Shortness of breath] 12-19-2023 Episodic Other lower respiratory disease (1 source) Shortness of breath; Translations: [Shortness of breath] Onset: 12-19-2023 Episodic Other nutritional; endocrine; and metabolic disorders (2 sources) Obesity 05-12-2022 Chronic Other nutritional; endocrine; and metabolic disorders (16 sources) Morbid obesity; Translations: [Morbid (severe) obesity due to excess calories] Onset: 09-18-2023 09-18-2023 Chronic Other nutritional; endocrine; and metabolic disorders (20 sources) Insulin resistance; Translations: [Insulin resistance] Onset: 09-18-2023 4 Chronic Other nutritional; endocrine; and metabolic disorders (15 sources) Severe obesity; Translations: [Class 3 severe obesity due to excess calories without serious comorbidity with body mass index (BMI) of 40.0 to 44.9 in adult ([facility])] Onset: 09-18-2023 06-24-2024 Chronic Other nutritional; endocrine; and metabolic disorders (1 source) Weight increased; Translations: [Abnormal weight gain] 07-31-2024 Episodic Otitis media and related conditions (2 sources) Chronic left mastoiditis; Translations: [Chronic mastoiditis, left ear] 06-05-2024 Chronic Residual codes; unclassified (1 source) Tobacco user; Translations: [Tobacco use] Onset: 05-24-2022 Episodic Residual codes; unclassified (2 sources) Nicotine-filled electronic cigarette user 05-24-2022 Episodic Spondylosis; intervertebral disc disorders; other back problems (2 sources) Lumbar spondylosis; Translations: [Spondylosis without myelopathy or radiculopathy, lumbar region] 12-29-2023 Chronic Substance-related disorders (1 source) Nicotine dependence, other tobacco product, uncomplicated; Translations: [NICOTINE DEPEND OTH TOB PROD UNCOMP] Onset: 06-27-2022 Chronic Thyroid disorders (20 sources) Hypothyroidism; Translations: [Hypothyroidism, unspecified] Onset: 06-27-2022 10-14-2019 Chronic Unclassified (1 source) CONTACT W/AND (SUSP) EXPOS COVID-19; Translations: [CONTACT W/AND (SUSP) EXPOS COVID-19] Onset: 06-22-2022 Past or Other Problems Problem Classification Problem Date Documented Da te Episodic/Chronic Asthma (20 sources) Exercise induced bronchospasm; Translations: [Exercise induced bronchospasm] Onset: 02-08-2012 Resolved: 09-18-2023 09-18-2023 Chronic Deficiency and other anemia (20 sources) Anemia; Translations: [Anemia, unspecified] Onset: 01-13-2015 01-13-2015 Episodic Deficiency and other anemia (20 sources) Iron deficiency anemia; Translations: [Iron deficiency anemia, unspecified] Onset: 01-15-2015 01-15-2015 Episodic Genitourinary symptoms and ill-defined conditions (20 sources) Proteinuria; Translations: [Proteinuria, unspecified] Onset: 03-28-2023 Resolved: 03-28-2023 05-12-2022 Episodic Headache; including migraine (20 sources) Headache; Translations: [Headache] Onset: 01-20-2015 Resolved: 09-18-2023 01-20-2015 Episodic Other aftercare (20 sources) Long-term current use of drug therapy; 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] Onset: 07-14-2017 07-14-2017 Episodic Other diseases of bladder and urethra (20 sources) Bladder dysfunction; Translations: [Neuromuscular dysfunction of bladder, unspecified] Onset: 07-08-2014 Resolved: 09-18-2023 07-08-2014 Chronic Other female genital disorders (20 sources) History of gynecological disorder; Translations: [Personal history of other diseases of the female genital tract] Onset: 10-05-2015 10-05-2015 Episodic Other gastrointestinal disorders (20 sources) Altered bowel function; Translations: [Change in bowel habit] Onset: 05-24-2022 Resolved: 09-18-2023 Episodic Other nervous system disorders (20 sources) Demyelinating disease of central nervous system; Translations: [Demyelinating disease of central nervous system, unspecified] Onset: 12-01-2013 Resolved: 09-18-2023 12-01-2013 Chronic Other nutritional; endocrine; and metabolic disorders (20 sources) Body mass index 30+ - obesity; Translations: [Body mass index (BMI) 38.0-38.9, adult] Onset: 03-28-2023 Resolved: 03-28-2023 05-24-2022 Chronic Other skin disorders (20 sources) Acne vulgaris; Translations: [Acne vulgaris] Onset: 03-28-2023 05-12-2022 Episodic Other upper respiratory infections (20 sources) Acute pharyngitis, unspecified; Translations: [Acute pansinusitis] Onset: 09-18-2023 Resolved: 03-18-2024 Episodic Residual codes; unclassified (20 sources) Memory impairment; Translations: [Other amnesia] Onset: 08-11-2015 Resolved: 09-18-2023 08-11-2015 Episodic Spondylosis; intervertebral disc disorders; other back problems (20 sources) Backache; Translations: [Dorsalgia, unspecified] Onset: 07-08-2014 07-08-2014 Episodic Unclassified (1 source) Contact with and (suspected) exposure to covid-19 Z20.822 Urinary tract infections (20 sources) Recurrent urinary tract infection; Translations: [Urinary tract infection, site not specified] Onset: 08-11-2015 Resolved: 09-18-2023 08-11-2015 Episodic Viral infection (1 source) COVID-19 Results Test Name Value Interpretation Reference Range Facility MR Cervical spine WO and W c ontrast Teressa 07-18-2024 * * *Final Report* * * DATE OF EXAM: Jul 18 2024 2:37PM [facility] 0298 - MRI CERVICAL SPINE WO/W IVCON / PROCEDURE REASON: Multiple sclerosis (HCC) * * * * Physician Interpretation * * * * EXAMINATION: MRI CERVICAL SPINE WO/W IVCON, MRI THORACIC SPINE WO/W IVCON HISTORY: Multiple sclerosis. Routine follow-up TECHNIQUE: Routine cervical and thoracic spine protocol with and without gadolinium. MQ: [id number] Contrast: 20 mL Dotarem IV COMPARISON: Cervical spinal MRI, 01/23/2023, and thoracic spine MRI, 05/28/2020 RESULT: Counting reference: Craniocervical junction. Anatomic Variants: None. Counting Reference: Cervicothoracic and lumbosacral junctions. Assume first thoracic rib is the T1 level. Anatomic Thoracic/Lumbar Variant: None. L4-5 is considered the level of the iliac crest and assume there are 5 lumbar-type vertebrae. Alignment: Alignment is anatomic. Craniocervical Junction: Craniocervical junction is normal. Cord Findings: Patchy foci of hyperintensity are noted in the spinal cord on the T2, IR and axial gradient echo images compatible with the history of multiple sclerosis. Cord T2 Plaque [place]: Mild New T2 Lesions: None Interval Cord Improvement: None New Cord Enhancing Lesions: None Cord Volume Loss: Normal morphology for age Bone marrow signal/fracture: T1 hyperintense foci at T4 and T6 are unchanged and consistent with benign hemangiomas, bone marrow signal intensity is otherwise normal. No evidence of prior fracture. Cervical soft tissues: The paraspinal soft tissues are within normal limits. Cervical Canal and foramina: No significant canal or foraminal narrowing. Thoracic soft tissues: The paraspinal soft tissues are within normal limits. Thoracic Canal and foramina: No significant canal or foraminal narrowing. *Note: The definition of new T2 Lesions includes both new and enlarging plaques on T2-weighted FLAIR images (new lesions greater than or equal to 5mm3 or an increase in diameter of an existing lesion by greater than or equal to 2mm). DIVISION OF RADIOLOGY Provider, Jomar Hampton - 07/18/2024 * * *Final Report* * * DATE OF EXAM: Jul 18 2024 2:37PM [facility] 0298 - MRI CERVICAL SPINE WO/W IVCON / PROCEDURE REASON: Multiple sclerosis (HCC) * * * * Physician Interpretation * * * * EXAMINATION: MRI CERVICAL SPINE WO/W IVCON, MRI THORACIC SPINE WO/W IVCON HISTORY: Multiple sclerosis. Routine follow-up TECHNIQUE: Routine cervical and thoracic spine protocol with and without gadolinium. MQ: [id number] Contrast: 20 mL Dotarem IV COMPARISON: Cervical spinal MRI, 01/23/2023, and thoracic spine MRI, 05/28/2020 RESULT: Counting reference: Craniocervical junction. Anatomic Variants: None. Counting Reference: Cervicothoracic and lumbosacral junctions. Assume first thoracic rib is the T1 level. Anatomic Thoracic/Lumbar Variant: None. L4-5 is considered the level of the iliac crest and assume there are 5 lumbar-type vertebrae. Alignment: Alignment is anatomic. Craniocervical Junction: Craniocervical junction is normal. Cord Findings: Patchy foci of hyperintensity are noted in the spinal cord on the T2, IR and axial gradient echo images compatible with the history of multiple sclerosis. Cord T2 Plaque [place]: Mild New T2 Lesions: None Interval Cord Improvement: None New Cord Enhancing Lesions: None Cord Volume Loss: Normal morphology for age Bone marrow signal/fracture: T1 hyperintense foci at T4 and T6 are unchanged and consistent with benign hemangiomas, bone marrow signal intensity is otherwise normal. No evidence of prior fracture. Cervical soft tissues: The paraspinal soft tissues are within normal limits. Cervical Canal and foramina: No significant canal or foraminal narrowing. Thoracic soft tissues: The paraspinal soft tissues are within normal limits. Thoracic Canal and foramina: No significant canal or foraminal narrowing. *Note: The definition of new T2 Lesions includes both new and enlarging plaques on T2-weighted FLAIR images (new lesions greater than or equal to 5mm3 or an increase in diameter of an existing lesion by greater than or equal to 2mm). IMPRESSION IMPRESSION: Scattered intramedullary lesions compatible with the clinical history of multiple sclerosis. No new T2 intramedullary lesions and no new enhancing intramedullary lesions. No significant volume loss of the spinal cord for age. Other Significant Cervical/Thoracic Spine Findings: No significant cervical canal or foraminal stenosis. Cervical Anatomic Variant: None. Assume 7 cervical vertebrae with counting from the craniocervical junction. Anatomic Thoracic/Lumbar Variant: None. L4-5 is considered the level of the iliac crest and assume there are 5 lumbar-type vertebrae. Personal Insurance Advisor: [employer] Transcribe Date/Time: Jul 18 2024 2:39P Dictated by : SAMMIE PACE MD This examination was interpreted and the report reviewed and electronically signed by: JAYA MARTINEZ MD on Jul 18 2024 3:53PM [facility] MR Thoracic spine WO and W c ontrast Teressa 07-18-2024 * * *Final Report* * * DATE OF EXAM: Jul 18 2024 2:37PM [facility] 0326 - MRI THORACIC SPINE WO/W IVCON / PROCEDURE REASON: Multiple sclerosis (HCC) * * * * Physician Interpretation * * * * EXAMINATION: MRI CERVICAL SPINE WO/W IVCON, MRI THORACIC SPINE WO/W IVCON HISTORY: Multiple sclerosis. Routine follow-up TECHNIQUE: Routine cervical and thoracic spine protocol with and without gadolinium. MQ: [id number] Contrast: 20 mL Dotarem IV COMPARISON: Cervical spinal MRI, 01/23/2023, and thoracic spine MRI, 05/28/2020 RESULT: Counting reference: Craniocervical junction. Anatomic Variants: None. Counting Reference: Cervicothoracic and lumbosacral junctions. Assume first thoracic rib is the T1 level. Anatomic Thoracic/Lumbar Variant: None. L4-5 is considered the level of the iliac crest and assume there are 5 lumbar-type vertebrae. Alignment: Alignment is anatomic. Craniocervical Junction: Craniocervical junction is normal. Cord Findings: Patchy foci of hyperintensity are noted in the spinal cord on the T2, IR and axial gradient echo images compatible with the history of multiple sclerosis. Cord T2 Plaque [place]: Mild New T2 Lesions: None Interval Cord Improvement: None New Cord Enhancing Lesions: None Cord Volume Loss: Normal morphology for age Bone marrow signal/fracture: T1 hyperintense foci at T4 and T6 are unchanged and consistent with benign hemangiomas, bone marrow signal intensity is otherwise normal. No evidence of prior fracture. Cervical soft tissues: The paraspinal soft tissues are within normal limits. Cervical Canal and foramina: No significant canal or foraminal narrowing. Thoracic soft tissues: The paraspinal soft tissues are within normal limits. Thoracic Canal and foramina: No significant canal or foraminal narrowing. *Note: The definition of new T2 Lesions includes both new and enlarging plaques on T2-weighted FLAIR images (new lesions greater than or equal to 5mm3 or an increase in diameter of an existing lesion by greater than or equal to 2mm). DIVISION OF RADIOLOGY Provider, [facility] - 07/18/2024 * * *Final Report* * * DATE OF EXAM: Jul 18 2024 2:37PM [facility] 0326 - MRI THORACIC SPINE WO/W IVCON / PROCEDURE REASON: Multiple sclerosis (HCC) * * * * Physician Interpretation * * * * EXAMINATION: MRI CERVICAL SPINE WO/W IVCON, MRI THORACIC SPINE WO/W IVCON HISTORY: Multiple sclerosis. Routine follow-up TECHNIQUE: Routine cervical and thoracic spine protocol with and without gadolinium. MQ: [id number] Contrast: 20 mL Dotarem IV COMPARISON: Cervical spinal MRI, 01/23/2023, and thoracic spine MRI, 05/28/2020 RESULT: Counting reference: Craniocervical junction. Anatomic Variants: None. Counting Reference: Cervicothoracic and lumbosacral junctions. Assume first thoracic rib is the T1 level. Anatomic Thoracic/Lumbar Variant: None. L4-5 is considered the level of the iliac crest and assume there are 5 lumbar-type vertebrae. Alignment: Alignment is anatomic. Craniocervical Junction: Craniocervical junction is normal. Cord Findings: Patchy foci of hyperintensity are noted in the spinal cord on the T2, IR and axial gradient echo images compatible with the history of multiple sclerosis. Cord T2 Plaque [place]: Mild New T2 Lesions: None Interval Cord Improvement: None New Cord Enhancing Lesions: None Cord Volume Loss: Normal morphology for age Bone marrow signal/fracture: T1 hyperintense foci at T4 and T6 are unchanged and consistent with benign hemangiomas, bone marrow signal intensity is otherwise normal. No evidence of prior fracture. Cervical soft tissues: The paraspinal soft tissues are within normal limits. Cervical Canal and foramina: No significant canal or foraminal narrowing. Thoracic soft tissues: The paraspinal soft tissues are within normal limits. Thoracic Canal and foramina: No significant canal or foraminal narrowing. *Note: The definition of new T2 Lesions includes both new and enlarging plaques on T2-weighted FLAIR images (new lesions greater than or equal to 5mm3 or an increase in diameter of an existing lesion by greater than or equal to 2mm). IMPRESSION IMPRESSION: Scattered intramedullary lesions compatible with the clinical history of multiple sclerosis. No new T2 intramedullary lesions and no new enhancing intramedullary lesions. No significant volume loss of the spinal cord for age. Other Significant Cervical/Thoracic Spine Findings: No significant cervical canal or foraminal stenosis. Cervical Anatomic Variant: None. Assume 7 cervical vertebrae with counting from the craniocervical junction. Anatomic Thoracic/Lumbar Variant: None. L4-5 is considered the level of the iliac crest and assume there are 5 lumbar-type vertebrae. Personal Insurance Advisor: [facility] Transcribe Date/Time: Jul 18 2024 2:39P Dictated by : SAMMIE PACE MD This examination was interpreted and the report reviewed and electronically signed by: JAYA MARTINEZ MD on Jul 18 2024 3:53PM EST [facility] MRI CERVICAL SPINE WO/W IVCO Non 07-18-2024 MRI CERVICAL SPINE WO/W IVCON * * *Final Report* * * DATE OF EXAM: Jul 18 2024 2:37PM [facility] 0298 - MRI CERVICAL SPINE WO/W IVCON / PROCEDURE REASON: Multiple sclerosis (HCC) * * * * Physician Interpretation * * * * EXAMINATION: MRI CERVICAL SPINE WO/W IVCON, MRI THORACIC SPINE WO/W IVCON HISTORY: Multiple sclerosis. Routine follow-up TECHNIQUE: Routine cervical and thoracic spine protocol with and without gadolinium. MQ: [id number] Contrast: 20 mL Dotarem IV COMPARISON: Cervical spinal MRI, 01/23/2023, and thoracic spine MRI, 05/28/2020 RESULT: Counting reference: Craniocervical junction. Anatomic Variants: None. Counting Reference: Cervicothoracic and lumbosacral junctions. Assume first thoracic rib is the T1 level. Anatomic Thoracic/Lumbar Variant: None. L4-5 is considered the level of the iliac crest and assume there are 5 lumbar-type vertebrae. Alignment: Alignment is anatomic. Craniocervical Junction: Craniocervical junction is normal. Cord Findings: Patchy foci of hyperintensity are noted in the spinal cord on the T2, IR and axial gradient echo images compatible with the history of multiple sclerosis. Cord T2 Plaque [place]: Mild New T2 Lesions: None Interval Cord Improvement: None New Cord Enhancing Lesions: None Cord Volume Loss: Normal morphology for age Bone marrow signal/fracture: T1 hyperintense foci at T4 and T6 are unchanged and consistent with benign hemangiomas, bone marrow signal intensity is otherwise normal. No evidence of prior fracture. Cervical soft tissues: The paraspinal soft tissues are within normal limits. Cervical Canal and foramina: No significant canal or foraminal narrowing. Thoracic soft tissues: The paraspinal soft tissues are within normal limits. Thoracic Canal and foramina: No significant canal or foraminal narrowing. *Note: The definition of new T2 Lesions includes both new and enlarging plaques on T2-weighted FLAIR images (new lesions greater than or equal to 5mm3 or an increase in diameter of an existing lesion by greater than or equal to 2mm). IMPRESSION: Scattered intramedullary lesions compatible with the clinical history of multiple sclerosis. No new T2 intramedullary lesions and no new enhancing intramedullary lesions. No significant volume loss of the spinal cord for age. Other Significant Cervical/Thoracic Spine Findings: No significant cervical canal or foraminal stenosis. Cervical Anatomic Variant: None. Assume 7 cervical vertebrae with counting from the craniocervical junction. Anatomic Thoracic/Lumbar Variant: None. L4-5 is considered the level of the iliac crest and assume there are 5 lumbar-type vertebrae. Personal Insurance Advisor: [employer] Transcribe Date/Time: Jul 18 2024 2:39P Dictated by : SAMMIE PACE MD This examination was interpreted and the report reviewed and electronically signed by: JAYA MARTINEZ MD on Jul 18 2024 3:53PM EST [id number] Normal [facility] MRI THORACIC SPINE WO/W IVCO Non 07-18-2024 MRI THORACIC SPINE WO/W IVCON * * *Final Report* * * DATE OF EXAM: Jul 18 2024 2:37PM [facility] 0326 - MRI THORACIC SPINE WO/W IVCON / PROCEDURE REASON: Multiple sclerosis (HCC) * * * * Physician Interpretation * * * * EXAMINATION: MRI CERVICAL SPINE WO/W IVCON, MRI THORACIC SPINE WO/W IVCON HISTORY: Multiple sclerosis. Routine follow-up TECHNIQUE: Routine cervical and thoracic spine protocol with and without gadolinium. MQ: [id number] Contrast: 20 mL Dotarem IV COMPARISON: Cervical spinal MRI, 01/23/2023, and thoracic spine MRI, 05/28/2020 RESULT: Counting reference: Craniocervical junction. Anatomic Variants: None. Counting Reference: Cervicothoracic and lumbosacral junctions. Assume first thoracic rib is the T1 level. Anatomic Thoracic/Lumbar Variant: None. L4-5 is considered the level of the iliac crest and assume there are 5 lumbar-type vertebrae. Alignment: Alignment is anatomic. Craniocervical Junction: Craniocervical junction is normal. Cord Findings: Patchy foci of hyperintensity are noted in the spinal cord on the T2, IR and axial gradient echo images compatible with the history of multiple sclerosis. Cord T2 Plaque [place]: Mild New T2 Lesions: None Interval Cord Improvement: None New Cord Enhancing Lesions: None Cord Volume Loss: Normal morphology for age Bone marrow signal/fracture: T1 hyperintense foci at T4 and T6 are unchanged and consistent with benign hemangiomas, bone marrow signal intensity is otherwise normal. No evidence of prior fracture. Cervical soft tissues: The paraspinal soft tissues are within normal limits. Cervical Canal and foramina: No significant canal or foraminal narrowing. Thoracic soft tissues: The paraspinal soft tissues are within normal limits. Thoracic Canal and foramina: No significant canal or foraminal narrowing. *Note: The definition of new T2 Lesions includes both new and enlarging plaques on T2-weighted FLAIR images (new lesions greater than or equal to 5mm3 or an increase in diameter of an existing lesion by greater than or equal to 2mm). IMPRESSION: Scattered intramedullary lesions compatible with the clinical history of multiple sclerosis. No new T2 intramedullary lesions and no new enhancing intramedullary lesions. No significant volume loss of the spinal cord for age. Other Significant Cervical/Thoracic Spine Findings: No significant cervical canal or foraminal stenosis. Cervical Anatomic Variant: None. Assume 7 cervical vertebrae with counting from the craniocervical junction. Anatomic Thoracic/Lumbar Variant: None. L4-5 is considered the level of the iliac crest and assume there are 5 lumbar-type vertebrae. Personal Insurance Advisor: [employer] Transcribe Date/Time: Jul 18 2024 2:39P Dictated by : SAMMIE PACE MD This examination was interpreted and the report reviewed and electronically signed by: JAYA MARTINEZ MD on Jul 18 2024 3:53PM EST [id number] Normal [facility] No Panel Informationon 07-18 IMPRESSION: Scattered intramedullary lesions compatible with the clinical history of multiple sclerosis. No new T2 intramedullary lesions and no new enhancing intramedullary lesions. No significant volume loss of the spinal cord for age. Other Significant Cervical/Thoracic Spine Findings: No significant cervical canal or foraminal stenosis. Cervical Anatomic Variant: None. Assume 7 cervical vertebrae with counting from the craniocervical junction. Anatomic Thoracic/Lumbar Variant: None. L4-5 is considered the level of the iliac crest and assume there are 5 lumbar-type vertebrae. Personal Insurance Advisor: [employer] Transcribe Date/Time: Jul 18 2024 2:39P Dictated by : SAMMIE PACE MD This examination was interpreted and the report reviewed and electronically signed by: JAYA MARTINEZ MD on Jul 18 2024 3:53PM EST DIVISION OF RADIOLOGY Radiology Study observation (narrative) [facility] No Panel InformationOrdered By: [facility] Provider on 07-18-2024 [facility] CBC W Auto Differential pane l (Bld)on 07-15-2024 Basophils (Bld) [#/Vol] [facility] Differential cell count method Nom (Bld) Auto [facility] Eosinophils (Bld) [#/Vol] [facility] Eosinophils/100 WBC (Bld) 0.0 % [facility] Immature granulocytes (Bld) [#/Vol] [facility] Immature granulocytes/100 WBC (Bld) 0.2 % [facility] Lymphocytes (Bld) [#/Vol] 0.57 10*3/uL Low [facility] Monocytes (Bld) [#/Vol] 0.10 10*3/uL [facility] Neutrophils (Bld) [#/Vol] 5.10 10*3/uL [facility] Neutrophils/100 WBC (Bld) 88.0 % [facility] Nucleated RBC (Bld) [#/Vol] [facility] Nucleated RBC/100 WBC (Bld) [Ratio] 0.0 % /100 WBC [facility] Platelet mean volume (Bld) [Entitic vol] 9.0 fL 9.0 - 12.7 fL [facility] Platelets (Bld) [#/Vol] 363 10*3/uL [facility] WBC (Bld) [#/Vol] 5.80 10*3/uL [facility] Basophils (Bld) [#/Vol] 10*3/uL Normal <0.11 [facility] Comment on above: Order Comment: Speci men Type: BLOOD SPECIMENOrdering Facility: [facility] Address: [address] [place] [address] Performed By: #### 5 7021-8 ####[facility] LABCLIA [id number] [place] [address] Basophils/100 WBC (Bld) 0.3 % Normal [facility] Comment on above: Order Comment: Speci men Type: BLOOD SPECIMENOrdering Facility: [facility] Address: [address] [place] [address] Performed By: #### 5 7021-8 ####[facility] LABCLIA [id number] [place] [address] Differential cell count method Nom (Bld) Auto Normal [facility] Comment on above: Order Comment: Speci men Type: BLOOD SPECIMENOrdering Facility: [facility] Address: [address] [place] [address] Performed By: #### 5 7021-8 ####[facility] LABCLIA [id number] [place] [address] Eosinophils (Bld) [#/Vol] 10*3/uL Normal <0.46 [facility] Comment on above: Order Comment: Speci men Type: BLOOD SPECIMENOrdering Facility: [facility] Address: [address] [place] [address] Performed By: #### 5 7021-8 ####[facility] LABCLIA [id number] [place] [address] Eosinophils/100 WBC (Bld) 0.0 % Normal [facility] Comment on above: Order Comment: Speci men Type: BLOOD SPECIMENOrdering Facility: [facility] Address: [address] [place] [address] Performed By: #### 5 7021-8 ####[facility] LABCLIA [id number] [place] [address] Erythrocyte distribution width (RBC) [Ratio] 13.1 % Normal 11.5-15.0 [facility] Comment on above: Order Comment: Speci men Type: BLOOD SPECIMENOrdering Facility: [facility] Address: [address] [place] [address] Performed By: #### 5 7021-8 ####[facility] LABCLIA [id number] [place] [address] Hematocrit (Bld) [Volume fraction] 46.2 % High 36.0-46.0 [facility] Comment on above: Order Comment: Speci men Type: BLOOD SPECIMENOrdering Facility: [facility] Address: [address] [place] [address] Performed By: #### 5 7021-8 ####[facility] LABCLIA [id number] [place] [address] Hemoglobin (Bld) [Mass/Vol] 15.3 g/dL Normal 11.5-15.5 [facility] Comment on above: Order Comment: Speci men Type: BLOOD SPECIMENOrdering Facility: [facility] Address: [address] [place] [address] Performed By: #### 5 7021-8 ####[facility] LABCLIA [id number] [place] [address] Immature granulocytes (Bld) [#/Vol] 10*3/uL Normal <0.10 [facility] Comment on above: Order Comment: Speci men Type: BLOOD SPECIMENOrdering Facility: [facility] Address: [address] [place] [address] Performed By: #### 5 7021-8 ####[facility] LABCLIA [id number] [place] [address] Immature granulocytes/100 WBC (Bld) 0.2 % Normal [facility] Comment on above: Order Comment: Speci men Type: BLOOD SPECIMENOrdering Facility: [facility] Address: [address] [place] [address] Performed By: #### 5 7021-8 ####[facility] LABCLIA [id number] [place] [address] Lymphocytes (Bld) [#/Vol] 0.57 10*3/uL Low 1.00-4.00 [facility] Comment on above: Order Comment: Speci men Type: BLOOD SPECIMENOrdering Facility: [facility] Address: [address] [place] [address] Performed By: #### 5 7021-8 ####[facility] LABCLIA [id number] [place] [address] Lymphocytes/100 WBC (Bld) 9.8 % Normal [facility] Comment on above: Order Comment: Speci men Type: BLOOD SPECIMENOrdering Facility: [facility] Address: [address] [place] [address] Performed By: #### 5 7021-8 ####[facility] LABCLIA [id number] [place] [address] MCH (RBC) [Entitic mass] 28.4 pg Normal 26.0-34.0 [facility] Comment on above: Order Comment: Speci men Type: BLOOD SPECIMENOrdering Facility: [facility] Address: [address] [place] [address] Performed By: #### 5 7021-8 ####[facility] LABIA [id number] [place] [address] MCHC (RBC) [Mass/Vol] 33.1 g/dL Normal 30.5-36.0 [facility] Comment on above: Order Comment: Speci men Type: BLOOD SPECIMENOrdering Facility: [facility] Address: [address] [place] [address] Performed By: #### 5 7021-8 ####[facility] LABCLIA [id number] [place] [address] MCV (RBC) [Entitic vol] 85.9 fL Normal 80.0-100.0 [facility] Comment on above: Order Comment: Speci men Type: BLOOD SPECIMENOrdering Facility: [facility] Address: [address] [place] [address] Performed By: #### 5 7021-8 ####[facility] LABCLIA [id number] [place] [address] Monocytes (Bld) [#/Vol] 0.10 10*3/uL Normal <0.87 [facility] Comment on above: Order Comment: Speci men Type: BLOOD SPECIMENOrdering Facility: [facility] Address: [address] [place] [address] Performed By: #### 5 7021-8 ####[facility] LABCLIA [id number] [place] [address] Monocytes/100 WBC (Bld) 1.7 % Normal [facility] Comment on above: Order Comment: Speci men Type: BLOOD SPECIMENOrdering Facility: [facility] Address: [address] [place] [address] Performed By: #### 5 7021-8 ####[facility] LABCLIA [id number] [place] [address] Neutrophils (Bld) [#/Vol] 5.10 10*3/uL Normal 1.45-7.50 [facility] Comment on above: Order Comment: Speci men Type: BLOOD SPECIMENOrdering Facility: [facility] Address: [address] [place] [address] Performed By: #### 5 7021-8 ####[facility] LABCLIA [id number] [place] [address] Neutrophils/100 WBC (Bld) 88.0 % Normal [facility] Comment on above: Order Comment: Speci men Type: BLOOD SPECIMENOrdering Facility: [facility] Address: [address] [place] [address] Performed By: #### 5 7021-8 ####[facility] LABCLIA [id number] [place] [address] Nucleated RBC (Bld) [#/Vol] 10*3/uL Normal <0.01 [facility] Comment on above: Order Comment: Speci men Type: BLOOD SPECIMENOrdering Facility: [facility] Address: [address] [place] [address] Performed By: #### 5 7021-8 ####[facility] LABCLIA [id number] [place] [address] Nucleated RBC/100 WBC (Bld) [Ratio] 0.0 /100 WBC Normal [facility] Comment on above: Order Comment: Speci men Type: BLOOD SPECIMENOrdering Facility: [facility] Address: [address] [place] [address] Performed By: #### 5 7021-8 ####[facility] LABCLIA [id number] [place] [address] Platelet mean volume (Bld) [Entitic vol] 9.0 fL Normal 9.0-12.7 [facility] Comment on above: Order Comment: Speci men Type: BLOOD SPECIMENOrdering Facility: [facility] Address: [address] [place] [address] Performed By: #### 5 7021-8 ####[facility] LABCLIA [id number] [place] [address] Platelets (Bld) [#/Vol] 363 10*3/uL Normal 150-400 [facility] Comment on above: Order Comment: Speci men Type: BLOOD SPECIMENOrdering Facility: [facility] Address: [address] [place] [address] Performed By: #### 5 7021-8 ####[facility] LABCLIA [id number] [place] [address] RBC (Bld) [#/Vol] 5.38 10*6/uL High 3.90-5.20 [facility] Comment on above: Order Comment: Speci men Type: BLOOD SPECIMENOrdering Facility: [facility] Address: [address] [place] [address] Performed By: #### 5 7021-8 ####[facility] LABCLIA [id number] [place] [address] WBC (Bld) [#/Vol] 5.80 10*3/uL Normal 3.70-11.00 [facility] Comment on above: Order Comment: Speci men Type: BLOOD SPECIMENOrdering Facility: [facility] Address: [address] [place] [address] Performed By: #### 5 7021-8 ####[facility] LABCLIA [id number] [place] [address] [facility] CBC W AUTO DIFF BLDon [facility] BASOPHILS # BLD AUTO <0.03 [facility] DIFFERENTIAL METHOD BLD Auto [facility] EOSINOPHIL # BLD AUTO <0.03 [facility] LYMPHOCYTES # BLD AUTO 0.57 Low [facility] MONOCYTES # BLD AUTO 0.1 [facility] NEUTROPHILS # BLD AUTO 5.1 [facility] NRBC # BLD AUTO <0.01 [facility] NRBC/100 WBC BLD-RTO 0 /100 WBC [facility] PLATELET # BLD AUTO 363 [facility] PMV BLD AUTO 9 fL 9.0 - 12.7 fL [facility] WBC # BLD AUTO 5.8 [facility] Eosinophils/100 WBC (Bld) 0 % [facility] IMM GRANULOCYTES # BLD AUTO <0.03 [facility] IMM GRANULOCYTES/LEUK NFR BLD AUTO 0.2 % [facility] Neutrophils/100 WBC (Bld) 88 % [facility] Specimen Type: BLOOD SPECIMEN Ordering [facility] Address: [address] [place] [address] Original Ordering Provider: YOLY GARCIA CD19 ABSOLUTE COUNTon 2023 CD3-CD19+ cells (Bld) [#/Vol] 0 cells/uL Low 75-660 [facility] Comment on above: Order Comment: Speci men Type: BLOOD SPECIMENOrdering Facility: [facility] Address: [address] [place] [address] Performed By: #### A BS19 ####[facility] LABCLIA [id number] [place] [address] [place] CD3-CD19+ cells/100 cells (Bld) 0 % Low 5-22 [facility] Comment on above: Order Comment: Speci men Type: BLOOD SPECIMENOrdering Facility: [facility] Address: [address] [place] [address] Performed By: #### A BS19 ####[facility] LABCLIA [id number] [place] [address] [place] Lymphocytes/100 WBC FC (Bld) Normal [facility] Comment on above: Order Comment: Speci men Type: BLOOD SPECIMENOrdering Facility: [facility] Address: [address] [place] [address] Performed By: #### A BS19 ####[facility] LABCLIA [id number] [place] [address] [place] Comprehensive metabolic 2000 panelon 07-15-2024 Albumin [Mass/Vol] 4.1 g/dL Normal 3.9-4.9 [facility] Comment on above: Order Comment: Speci men Type: BLOOD SPECIMENOrdering Facility: [facility] Address: [address] [place] [address] Performed By: #### 2 4323-8 ####[facility] LABCLIA [id number] [place] [address] ALP [Catalytic activity/Vol] 95 U/L Normal 34-123 [facility] Comment on above: Order Comment: Speci men Type: BLOOD SPECIMENOrdering Facility: [facility] Address: [address] [place] [address] Performed By: #### 2 4323-8 ####[facility] LABCLIA [id number] [place] [address] ALT [Catalytic activity/Vol] 40 U/L High 7-38 [facility] Comment on above: Order Comment: Speci men Type: BLOOD SPECIMENOrdering Facility: [facility] Address: [address] [place] [address] Performed By: #### 2 4323-8 ####[facility] LABCLIA [id number] [place] [address] Anion gap [Moles/Vol] 8 mmol/L Normal 8-15 [facility] Comment on above: Order Comment: Speci men Type: BLOOD SPECIMENOrdering Facility: [facility] Address: [address] [place] [address] Performed By: #### 2 4323-8 ####[facility] LABCLIA [id number] [place] [address] AST [Catalytic activity/Vol] 38 U/L High 13-35 [facility] Comment on above: Order Comment: Speci men Type: BLOOD SPECIMENOrdering Facility: [facility] Address: [address] [place] [address] Performed By: #### 2 4323-8 ####[facility] LABCLIA [id number] [place] [address] Bilirubin [Mass/Vol] 0.4 mg/dL Normal 0.2-1.3 [facility] Comment on above: Order Comment: Speci men Type: BLOOD SPECIMENOrdering Facility: [facility] Address: [address] [place] [address] Performed By: #### 2 4323-8 ####[facility] LABCLIA [id number] [place] [address] Calcium [Mass/Vol] 8.7 mg/dL Normal 8.5-10.2 [facility] Comment on above: Order Comment: Speci men Type: BLOOD SPECIMENOrdering Facility: [facility] Address: [address] [place] [address] Performed By: #### 2 4323-8 ####[facility] LABCLIA [id number] [place] [address] Chloride [Moles/Vol] 104 mmol/L Normal 98-107 [facility] Comment on above: Order Comment: Speci men Type: BLOOD SPECIMENOrdering Facility: [facility] Address: [address] [place] [address] Performed By: #### 2 4323-8 ####[facility] LABCLIA [id number] [place] [address] CO2 [Moles/Vol] 25 mmol/L Normal 22-30 [facility] Comment on above: Order Comment: Speci men Type: BLOOD SPECIMENOrdering Facility: [facility] Address: [address] [place] [address] Performed By: #### 2 4323-8 ####[facility] LABCLIA [id number] [place] [address] Creatinine [Mass/Vol] 0.74 mg/dL Normal 0.58-0.96 [facility] Comment on above: Order Comment: Speci men Type: BLOOD SPECIMENOrdering Facility: [facility] Address: [address] [place] [address] Performed By: #### 2 4323-8 ####[facility] LABCLIA [id number] [place] [address] Creatinine and Glomerular filtration rate.predicted panel (S/P/Bld) 115 mL/min/1.73m??? Normal >=60 [facility] Comment on above: Order Comment: Speci men Type: BLOOD SPECIMENOrdering Facility: [facility] Address: [address] [place] [address] Result Comment: Kamala mated Glomerular Filtration Rate [...] actual GFR. Performed By: #### 2 4323-8 ####[facility] LABCLIA [id number] [place] [address] Glucose [Mass/Vol] 136 mg/dL High 74-99 [facility] Comment on above: Order Comment: Speci men Type: BLOOD SPECIMENOrdering Facility: [facility] Address: [address] [place] [address] Result Comment: The [place] Diabetes Association (ADA) provides guidance for cutoff [...] Standards of Medical Care in Diabetes 2016, [place] Diabetes Association. Diabetes Care. 2016.39(Suppl 1). Performed By: #### 2 4323-8 ####[facility] LABCLIA [id number] [place] [address] Potassium [Moles/Vol] 4.0 mmol/L Normal 3.7-5.1 [facility] Comment on above: Order Comment: Speci men Type: BLOOD SPECIMENOrdering Facility: [facility] Address: [address] [place] [address] Performed By: #### 2 4323-8 ####[facility] LABCLIA [id number] [place] [address] Protein [Mass/Vol] 6.4 g/dL Normal 6.3-8.0 [facility] Comment on above: Order Comment: Speci men Type: BLOOD SPECIMENOrdering Facility: [facility] Address: [address] [place] [address] Performed By: #### 2 4323-8 ####[facility] LABCLIA [id number] [place] [address] Sodium [Moles/Vol] 137 mmol/L Normal 136-144 [facility] Comment on above: Order Comment: Speci men Type: BLOOD SPECIMENOrdering Facility: [facility] Address: [address] [place] [address] Performed By: #### 2 4323-8 ####[facility] LABCLIA [id number] [place] [address] Urea nitrogen [Mass/Vol] 13 mg/dL Normal 7-21 [facility] Comment on above: Order Comment: Speci men Type: BLOOD SPECIMENOrdering Facility: [facility] Address: [address] [place] [address] Performed By: #### 2 4323-8 ####[facility] LABCLIA [id number] [place] [address] IgG SerPl-mCncon 07-15-2024 IgG [Mass/Vol] 511 mg/dL Low 700-1600 [facility] Comment on above: Order Comment: Speci men Type: BLOOD SPECIMEN [facility]ing [facility]: [facility] Address: [address] [place] [address] Performed By: #### 2 465-3 #### [facility] LAB CLIA [id number] [address] [place] [address] [place] Laboratory - Hematology and Cell countson 07-15-2024 Basophils/100 WBC (Bld) 0.3 % [facility] Erythrocyte distribution width (RBC) [Ratio] 13.1 % 11.5 - 15.0 % [facility] Hematocrit (Bld) [Volume fraction] 46.2 % High 36.0 - 46.0 % [facility] Hemoglobin (Bld) [Mass/Vol] 15.3 g/dL 11.5 - 15.5 g/dL [facility] Lymphocytes/100 WBC (Bld) 9.8 % [facility] MCH (RBC) [Entitic mass] 28.4 pg 26.0 - 34.0 pg [facility] MCHC (RBC) [Mass/Vol] 33.1 g/dL 30.5 - 36.0 g/dL [facility] MCV (RBC) [Entitic vol] 85.9 fL 80.0 - 100.0 fL [facility] Monocytes/100 WBC (Bld) 1.7 % [facility] RBC (Bld) [#/Vol] 5.38 10*6/uL High 3.90 - 5.20 m/uL [facility] No Panel Informationon 07-15 Interpretation and review of laboratory results Abnormal [facility] CNCOon 05-29-2024 CNCO Letter Text Normal [facility] CNPNon 04-25-2024 CNPN Telephone (HARVEY) NATALIE JAQUEZ ([id number]) 1995 F Date Time Provider Department 04/25/24 AUTUMN BARCLAY During your visit today, we recorded the following information about you: Meek Romero 04/25/2024 9:22 AM Signed lvm for patient to call so we can get er scheduled fora follow up in jul with dr barclay Allergies As of Date: 04/25/2024 Noted Allergy Reaction AVONEX (INTERFERON BETA-1A) 01/15/2014 4 - Hives 12 - Shortness of Breath Comments: Pt was seen at ED for bronchospasms, hives and treated. COPAXONE (GLATIRAMER (COPOLYMER 1*04/14/2014 2 - Rash Date Reviewed: 04/24/2024 Reviewed by: Autumn Barclay MD - Fully Assessed Reason for Visit: Appointment [186] Cmt: [facility] for patient to call so we can get er scheduled fora follow up in jul with dr barclay Prescriptions as of 04/25/2024 - dextroamphetamine-amphetami ne (ADDERALL) 20 mg tablet Take 1 tablet by mouth two times a day for 30 days. - oxybutynin ER (DITROPAN XL) 10 mg 24 hr tablet Take 1 tablet by mouth once daily. - iv contrast (will be provided with radiology test) MRI CSP Inject, intravenously, once for 1 [...] in the MR contrast administration guidelines link. - iv contrast (will be provided with radiology test) MRI TSP Inject, intravenously, once for 1 dose. No [...] in the MR contrast administration guidelines link. - venlafaxine ER (EFFEXOR XR) 150 mg 24 hr capsule Take 1 capsule by mouth every afternoon. - baclofen (LIORESAL) 10 mg tablet Take 1 tablet by mouth at bedtime as needed. Take 1 tablet by mouth before bed daily - ARIPiprazole (ABILIFY) 10 mg tablet TAKE 1 TABLET BY MOUTH EVERYDAY AT BEDTIME - Cholecalciferol, Vitamin D3, 2,000 unit cap TAKE ONE CAPSULE BY MOUTH EVERY DAY - ferrous sulfate 325 mg (65 mg iron) tablet Take 1 tablet by mouth twice daily. - NORGESTIMATE-ETHINYL ESTRADIOL (TRI-PREVIFEM, 28, ORAL) Take by mouth. - levothyroxine (SYNTHROID) 75 mcg tablet Take 75 mcg by mouth daily before breakfast. 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] 04/12/2005 SEXUAL PRECOCITY NEC [E30.1] 04/12/2005 Demyelinating changes in brain (HCC) [G37.9] 12/01/2013 Multiple sclerosis (HCC) [G35] 04/24/2014 Bladder dysfunction [N31.9] 07/08/2014 Backache [M54.9] 07/08/2014 Anemia [D64.9] 01/13/2015 Iron deficiency anemia [D50.9] 01/15/2015 Headache [R51] 01/20/2015 Memory disorder [R41.3] 08/11/2015 Frequent UTI [N39.0] 08/11/2015 Migraine without aura and without status migrai*08/16/2015 History of PCOS [Z87.42] 10/05/2015 Encounter for long-term (current) use of medica*07/14/2017 Encounter Status:Closed by MEEK ROMERO on 04/25/24 Normal [facility] IGP,APTIMA HPV,AGE GDLNon AGE GDLN ACOG TESTING Note . [facility] Comment on above: TESTS RESULT FLAG UN ITS REF RANGE LAB Clinician Provided Cytology Information Source.............Cervix;Endocervix No. of containers..01 ThinPrep Vial Age Algo ACOG Radha... FLAG LEGEND: L-Low Normal,H-High Normal,LL-Alert Low,HH-Alert High <-Panic Low,>-Panic High,A-Abnormal,AA-Critical Abnormal Performed at: 01 =G [facility] [address] [facility] [place] [address] Radha Young MD, IGP, RFX APTIMA HPV ASCU Note . [facility] Comment on above: TESTS RESULT FLAG UN ITS REF RANGE LAB DIAGNOSIS: 02 NEGATIVE FOR INTRAEPITHELIAL LESION OR MALIGNANCY. Specimen adequacy: 02 Satisfactory for evaluation. Endocervical and/or squamous metaplastic cells (endocervical component) are present. Performed by: 02 Aliya Porter, Oil Field Worker ([facility]) . 02 Note: Note 03 The Pap smear is a screening test designed to aid in the detection of premalignant and malignant conditions of the uterine cervix. It is not a diagnostic procedure and should not be used as the sole means of detecting cervical cancer. Both false-positive and false-negative reports do occur. Test Methodology: Note 03 This liquid based ThinPrep(R) pap test was screened with the use of an image guided system. . 02 The HPV DNA reflex criteria were not met with this specimen result therefore, no HPV testing was performed. FLAG LEGEND: L-Low Normal,H-High Normal,LL-Alert Low,HH-Alert High <-Panic Low,>-Panic High,A-Abnormal,AA-Critical Abnormal Performed at: 02 [facility] [address] [place] [address] Duyen García PhD, 03 [facility] [address] [place] [address] Radha Young MD, Performed at: = - [facility] [address], [place] [id number] Systems Trainer: Radha Young MD, Phone: [phone] Performed at: [address] [id number] Systems Trainer: Duyen García PhD, Phone: [phone] BRUSH-SPATULA CERVIX ENDOCERVIX [facility] CBC W Auto Differential pane l (Bld)on 01-17-2024 Basophils (Bld) [#/Vol] 0.03 10*3/uL [facility] Basophils/100 WBC (Bld) 0.3 % [facility] Differential cell count method Nom (Bld) Auto [facility] Eosinophils (Bld) [#/Vol] 0.14 10*3/uL [facility] Eosinophils/100 WBC (Bld) 1.4 % [facility] Erythrocyte distribution width (RBC) [Ratio] 12.7 % 11.5 - 15.0 % [facility] Hematocrit (Bld) [Volume fraction] 42.7 % 36.0 - 46.0 % [facility] Hemoglobin (Bld) [Mass/Vol] 13.9 g/dL 11.5 - 15.5 g/dL [facility] Immature granulocytes (Bld) [#/Vol] 0.04 10*3/uL [facility] Immature granulocytes/100 WBC (Bld) 0.4 % [facility] Lymphocytes (Bld) [#/Vol] 1.66 10*3/uL [facility] Lymphocytes/100 WBC (Bld) 17.0 % [facility] MCH (RBC) [Entitic mass] 28.7 pg 26.0 - 34.0 pg [facility] MCHC (RBC) [Mass/Vol] 32.6 g/dL 30.5 - 36.0 g/dL [facility] MCV (RBC) [Entitic vol] 88.0 fL 80.0 - 100.0 fL [facility] Monocytes (Bld) [#/Vol] 0.47 10*3/uL [facility] Monocytes/100 WBC (Bld) 4.8 % [facility] Neutrophils (Bld) [#/Vol] 7.41 10*3/uL [facility] Neutrophils/100 WBC (Bld) 76.1 % [facility] Nucleated RBC (Bld) [#/Vol] NINF [facility] Nucleated RBC/100 WBC (Bld) [Ratio] 0.0 % /100 WBC [facility] Platelet mean volume (Bld) [Entitic vol] 9.7 fL 9.0 - 12.7 fL [facility] Platelets (Bld) [#/Vol] 346 10*3/uL [facility] RBC (Bld) [#/Vol] 4.85 10*6/uL 3.90 - 5.20 m/uL [facility] WBC (Bld) [#/Vol] 9.75 10*3/uL [facility] Basophils (Bld) [#/Vol] 0.03 10*3/uL Normal <0.11 [facility] Comment on above: Order Comment: Speci men Type: BLOOD SPECIMENOrdering Facility: [facility] Address: [address] [place] [address] Performed By: #### 5 7021-8 ####[facility] LABCLIA [id number] [place] [address] Basophils/100 WBC (Bld) 0.3 % Normal [facility] Comment on above: Order Comment: Speci men Type: BLOOD SPECIMENOrdering Facility: [facility] Address: [address] [place] [address] Performed By: #### 5 7021-8 ####[facility] LABCLIA [id number] [place] [address] Differential cell count method Nom (Bld) Auto Normal [facility] Comment on above: Order Comment: Speci men Type: BLOOD SPECIMENOrdering Facility: [facility] Address: [address] [place] [address] Performed By: #### 5 7021-8 ####[facility] LABCLIA [id number] [place] [address] Eosinophils (Bld) [#/Vol] 0.14 10*3/uL Normal <0.46 [facility] Comment on above: Order Comment: Speci men Type: BLOOD SPECIMENOrdering Facility: [facility] Address: [address] [place] [address] Performed By: #### 5 7021-8 ####[facility] LABCLIA [id number] [place] [address] Eosinophils/100 WBC (Bld) 1.4 % Normal [facility] Comment on above: Order Comment: Speci men Type: BLOOD SPECIMENOrdering Facility: [facility] Address: [address] [place] [address] Performed By: #### 5 7021-8 ####[facility] LABCLIA [id number] [place] [address] Erythrocyte distribution width (RBC) [Ratio] 12.7 % Normal 11.5-15.0 [facility] Comment on above: Order Comment: Speci men Type: BLOOD SPECIMENOrdering Facility: [facility] Address: [address] [place] [address] Performed By: #### 5 7021-8 ####[facility] [facility] LABCLIA [id number] [place] [address] Hematocrit (Bld) [Volume fraction] 42.7 % Normal 36.0-46.0 [facility] Comment on above: Order Comment: Speci men Type: BLOOD SPECIMENOrdering Facility: [facility] Address: [address] [place] [address] Performed By: #### 5 7021-8 ####[facility] LABCLIA [id number] [place] [address] Hemoglobin (Bld) [Mass/Vol] 13.9 g/dL Normal 11.5-15.5 [facility] Comment on above: Order Comment: Speci men Type: BLOOD SPECIMENOrdering Facility: [facility] Address: [address] [place] [address] Performed By: #### 5 7021-8 ####[facility] LABCLIA [id number] [place] [address] Immature granulocytes (Bld) [#/Vol] 0.04 10*3/uL Normal <0.10 [facility] Comment on above: Order Comment: Speci men Type: BLOOD SPECIMENOrdering Facility: [facility] Address: [address] [place] [address] Performed By: #### 5 7021-8 ####[facility] LABCLIA [id number] [place] [address] Immature granulocytes/100 WBC (Bld) 0.4 % Normal [facility] Comment on above: Order Comment: Speci men Type: BLOOD SPECIMENOrdering Facility: [facility] Address: [address] [place] [address] Performed By: #### 5 7021-8 ####[facility] LABCLIA [id number] [place] [address] Lymphocytes (Bld) [#/Vol] 1.66 10*3/uL Normal 1.00-4.00 [facility] Comment on above: Order Comment: Speci men Type: BLOOD SPECIMENOrdering Facility: [facility] Address: [address] [place] [address] Performed By: #### 5 7021-8 ####[facility] LABCLIA [id number] [place] [address] Lymphocytes/100 WBC (Bld) 17.0 % Normal [facility] Comment on above: Order Comment: Speci men Type: BLOOD SPECIMENOrdering Facility: [facility] Address: [address] [place] [address] Performed By: #### 5 7021-8 ####[facility] LABCLIA [id number] [place] [address] MCH (RBC) [Entitic mass] 28.7 pg Normal 26.0-34.0 [facility] Comment on above: Order Comment: Speci men Type: BLOOD SPECIMENOrdering Facility: [facility] Address: [address] [place] [address] Performed By: #### 5 7021-8 ####[facility] LABCLIA [id number] [place] [address] MCHC (RBC) [Mass/Vol] 32.6 g/dL Normal 30.5-36.0 [facility] Comment on above: Order Comment: Speci men Type: BLOOD SPECIMENOrdering Facility: [facility] Address: [address] [place] [address] Performed By: #### 5 7021-8 ####[facility] LABCLIA [id number] [place] [address] MCV (RBC) [Entitic vol] 88.0 fL Normal 80.0-100.0 [facility] Comment on above: Order Comment: Speci men Type: BLOOD SPECIMENOrdering Facility: [facility] Address: [address] [place] [address] Performed By: #### 5 7021-8 ####[facility] LABCLIA [id number] [place] [address] Monocytes (Bld) [#/Vol] 0.47 10*3/uL Normal <0.87 [facility] Comment on above: Order Comment: Speci men Type: BLOOD SPECIMENOrdering Facility: [facility] Address: [address] [place] [address] Performed By: #### 5 7021-8 ####[facility] LABCLIA [id number] [place] [address] Monocytes/100 WBC (Bld) 4.8 % Normal [facility] Comment on above: Order Comment: Speci men Type: BLOOD SPECIMENOrdering Facility: [facility] Address: [address] [place] [address] Performed By: #### 5 7021-8 ####[facility] LABCLIA [id number] [place] [address] Neutrophils (Bld) [#/Vol] 7.41 10*3/uL Normal 1.45-7.50 [facility] Comment on above: Order Comment: Speci men Type: BLOOD SPECIMENOrdering Facility: [facility] Address: [address] [place] [address] Performed By: #### 5 7021-8 ####[facility] LABCLIA [id number] [place] [address] Neutrophils/100 WBC (Bld) 76.1 % Normal [facility] Comment on above: Order Comment: Speci men Type: BLOOD SPECIMENOrdering Facility: [facility] Address: [address] [place] [address] Performed By: #### 5 7021-8 ####[facility] LABCLIA [id number] [place] [address] Nucleated RBC (Bld) [#/Vol] 10*3/uL Normal <0.01 [facility] Comment on above: Order Comment: Speci men Type: BLOOD SPECIMENOrdering Facility: [facility] Address: [address] [place] [address] Performed By: #### 5 7021-8 ####[facility] LABCLIA [id number] [place] [address] Nucleated RBC/100 WBC (Bld) [Ratio] 0.0 /100 WBC Normal [facility] Comment on above: Order Comment: Speci men Type: BLOOD SPECIMENOrdering Facility: [facility] Address: [address] [place] [address] Performed By: #### 5 7021-8 ####[facility] LABIA [id number] [place] [address] Platelet mean volume (Bld) [Entitic vol] 9.7 fL Normal 9.0-12.7 [facility] Comment on above: Order Comment: Speci men Type: BLOOD SPECIMENOrdering Facility: [facility] Address: [address] [place] [address] Performed By: #### 5 7021-8 ####[facility] LABCLIA [id number] [place] [address] Platelets (Bld) [#/Vol] 346 10*3/uL Normal 150-400 [facility] Comment on above: Order Comment: Speci men Type: BLOOD SPECIMENOrdering Facility: [facility] Address: [address] [place] [address] Performed By: #### 5 7021-8 ####[facility] LABCLIA [id number] [place] [address] RBC (Bld) [#/Vol] 4.85 10*6/uL Normal 3.90-5.20 [facility] Comment on above: Order Comment: Speci men Type: BLOOD SPECIMENOrdering Facility: [facility] Address: [address] [place] [address] Performed By: #### 5 7021-8 ####[facility] LABCLIA [id number] [place] [address] WBC (Bld) [#/Vol] 9.75 10*3/uL Normal 3.70-11.00 [facility] Comment on above: Order Comment: Speci men Type: BLOOD SPECIMENOrdering Facility: [facility] Address: [address] [place] [address] Performed By: #### 5 7021-8 ####[facility] LABCLIA [id number] [place] [address] CD19 ABSOLUTE COUNTon 2023 CD3-CD19+ cells (Bld) [#/Vol] 0 cells/uL Low 75-660 [facility] Comment on above: Order Comment: Speci men Type: BLOOD SPECIMENOrdering Facility: [facility] Address: [address] [place] [address] Performed By: #### A BS19 ####[facility] LABCLIA [id number] [place] [address] [place] CD3-CD19+ cells/100 cells (Bld) 0 % Low 5-22 [facility] Comment on above: Order Comment: Speci men Type: BLOOD SPECIMENOrdering Facility: [facility] Address: [address] [place] [address] Performed By: #### A BS19 ####[facility] LABCLIA [id number] [place] [address] [place] Lymphocytes/100 WBC FC (Bld) Normal [facility] Comment on above: Order Comment: Speci men Type: BLOOD SPECIMENOrdering Facility: [facility] Address: [address] [place] [address] Performed By: #### A BS19 ####[facility] LABCLIA [id number] [address] [place] Comprehensive metabolic 2000 panelOrdered By: Josh Durham on 01-17-2024 Albumin [Mass/Vol] 3.9 g/dL 3.9 - 4.9 g/dL [facility] ALP [Catalytic activity/Vol] 89 U/L 34 - 123 U/L [facility] ALT [Catalytic activity/Vol] 23 U/L 7 - 38 U/L [facility] Anion gap [Moles/Vol] 5 mmol/L Low 8 - 15 mmol/L [facility] AST [Catalytic activity/Vol] 18 U/L 13 - 35 U/L [facility] Bilirubin [Mass/Vol] 0.3 mg/dL 0.2 - 1 .3 mg/dL [facility] Calcium [Mass/Vol] 9.5 mg/dL 8.5 - 10. 2 mg/dL [facility] Chloride [Moles/Vol] 105 mmol/L 98 - 10 7 mmol/L [facility] CO2 [Moles/Vol] 30 mmol/L 22 - 30 mmol/L [facility] Creatinine [Mass/Vol] 0.84 mg/dL 0.58 - 0.96 mg/dL [facility] GFR/1.73 sq M.predicted among non-blacks MDRD (S/P/Bld) [Vol rate/Area] 98 mL/min/{1.73_m2} - PINF [facility] Comment on above: Estimated Glomerular Filtration Rate [...] 103 mg/dL High 74 - 99 mg/dL [facility] Comment on above: The [place] Diabete s Association (ADA) provides guidance for [...] Standards of Medical Care in Diabetes 2016, [place] Diabetes Association. Diabetes Care. 2016.39(Suppl 1). Interpretation and review of laboratory results Abnormal [facility] Potassium [Moles/Vol] 4.5 mmol/L 3.7 - 5.1 mmol/L [facility] Protein [Mass/Vol] 6.3 g/dL 6.3 - 8.0 g/dL [facility] Sodium [Moles/Vol] 140 mmol/L 136 - 144 mmol/L [facility] Urea nitrogen [Mass/Vol] 13 mg/dL 7 - 21 mg/dL [facility] Comprehensive metabolic 2000 panelon 01-17-2024 Albumin [Mass/Vol] 3.9 g/dL Normal 3.9-4.9 [facility] Comment on above: Order Comment: Speci men Type: BLOOD SPECIMENOrdering Facility: [facility] Address: [address] [place] [address] Performed By: #### 2 4323-8 ####[facility] LABCLIA [id number] [place] [address] ALP [Catalytic activity/Vol] 89 U/L Normal 34-123 [facility] Comment on above: Order Comment: Speci men Type: BLOOD SPECIMENOrdering Facility: [facility] Address: [address] [place] [address] Performed By: #### 2 4323-8 ####[facility] LABCLIA [id number] [place] [address] ALT [Catalytic activity/Vol] 23 U/L Normal 7-38 [facility] Comment on above: Order Comment: Speci men Type: BLOOD SPECIMENOrdering Facility: [facility] Address: [address] [place] [address] Performed By: #### 2 4323-8 ####[facility] LABCLIA [id number] [place] [address] Anion gap [Moles/Vol] 5 mmol/L Low 8-15 [facility] Comment on above: Order Comment: Speci men Type: BLOOD SPECIMENOrdering Facility: [facility] Address: [address] [place] [address] Performed By: #### 2 4323-8 ####[facility] LABCLIA [id number] [place] [address] AST [Catalytic activity/Vol] 18 U/L Normal 13-35 [facility] Comment on above: Order Comment: Speci men Type: BLOOD SPECIMENOrdering Facility: [facility] Address: [address] [place] [address] Performed By: #### 2 4323-8 ####[facility] LABCLIA [id number] [place] [address] Bilirubin [Mass/Vol] 0.3 mg/dL Normal 0.2-1.3 [facility] Comment on above: Order Comment: Speci men Type: BLOOD SPECIMENOrdering Facility: [facility] Address: [address] [place] [address] Performed By: #### 2 4323-8 ####[facility] LABCLIA [id number] [place] [address] Calcium [Mass/Vol] 9.5 mg/dL Normal 8.5-10.2 [facility] Comment on above: Order Comment: Speci men Type: BLOOD SPECIMENOrdering Facility: [facility] Address: [address] [place] [address] Performed By: #### 2 4323-8 ####[facility] LABCLIA [id number] [place] [address] Chloride [Moles/Vol] 105 mmol/L Normal 98-107 [facility] Comment on above: Order Comment: Speci men Type: BLOOD SPECIMENOrdering Facility: [facility] Address: [address] [place] [address] Performed By: #### 2 4323-8 ####[facility] LABCLIA [id number] [place] [address] CO2 [Moles/Vol] 30 mmol/L Normal 22-30 [facility] Comment on above: Order Comment: Speci men Type: BLOOD SPECIMENOrdering Facility: [facility] Address: [address] [place] [address] Performed By: #### 2 4323-8 ####[facility] LABCLIA [id number] [place] [address] Creatinine [Mass/Vol] 0.84 mg/dL Normal 0.58-0.96 [facility] Comment on above: Order Comment: Speci men Type: BLOOD SPECIMENOrdering Facility: [facility] Address: [address] [place] [address] Performed By: #### 2 4323-8 ####[facility] LABCLIA [id number] [place] [address] Creatinine and Glomerular filtration rate.predicted panel (S/P/Bld) 98 mL/min/1.73m??? Normal >=60 [facility] Comment on above: Order Comment: Speci men Type: BLOOD SPECIMENOrdering Facility: [facility] Address: [address] [place] [address] Result Comment: Kamala mated Glomerular Filtration Rate [...] actual GFR. Performed By: #### 2 4323-8 ####[facility] LABCLIA [id number] [place] [address] Glucose [Mass/Vol] 103 mg/dL High 74-99 [facility] Comment on above: Order Comment: Levon rangel Type: BLOOD SPECIMENOrdering Facility: [facility] Address: [address] [place] [address] Result Comment: The [place] Diabetes Association (ADA) provides guidance for cutoff [...] Standards of Medical Care in Diabetes 2016, [place] Diabetes Association. Diabetes Care. 2016.39(Suppl 1). Performed By: #### 2 4323-8 ####[facility] LABCLIA [id number] [place] [address] Potassium [Moles/Vol] 4.5 mmol/L Normal 3.7-5.1 [facility] Comment on above: Order Comment: Levon rangel Type: BLOOD SPECIMENOrdering Facility: [facility] Address: [address] [place] [address] Performed By: #### 2 4323-8 ####[facility] LABCLIA [id number] [place] [address] Protein [Mass/Vol] 6.3 g/dL Normal 6.3-8.0 [facility] Comment on above: Order Comment: Speci men Type: BLOOD SPECIMENOrdering Facility: [facility] Address: [address] [place] [address] Performed By: #### 2 4323-8 ####[facility] LABCLIA [id number] [place] [address] Sodium [Moles/Vol] 140 mmol/L Normal 136-144 [facility] Comment on above: Order Comment: Speci men Type: BLOOD SPECIMENOrdering Facility: [facility] Address: [address] [place] [address] Performed By: #### 2 4323-8 ####[facility] LABCLIA [id number] [place] [address] Urea nitrogen [Mass/Vol] 13 mg/dL Normal 7-21 [facility] Comment on above: Order Comment: Speci men Type: BLOOD SPECIMENOrdering Facility: [facility] Address: [address] [place] [address] Performed By: #### 2 4323-8 ####[facility] LABCLIA [id number] [place] [address] IMMUNOGLOBULIN Aaron IgG [Mass/Vol] 459 mg/dL Low 700 - 1600 mg/dL [facility] IgG SerPl-mCncon 01-17-2024 IgG [Mass/Vol] 459 mg/dL Low 700-1600 [facility] Comment on above: Order Comment: Speci men Type: BLOOD SPECIMENOrdering Facility: [facility] Address: [address] [place] [address] Performed By: #### 2 465-3 ####[facility] LABCLIA [id number] [place] [address] [place] IgG [Mass/Vol]on 01-17-2024 Interpretation and review of laboratory results Abnormal [facility] CNOVon 12-29-2023 CNOV Office Visit (SPNMMN ) NATALIE JAQUEZ ([id number]) 1995 F Date Time Provider Department 12/29/23 1:50 PM MARIELLE GANNON [facility] During your visit today, we recorded the following information about you: Pulse Respiration Blood pressure Weight 91/minute 17/minute 141/99 124.4 kg Height 1.676 m Marielle Gannon APRN.HAND ETCHER HELPER 12/29/2023 2:36 PM Signed [facility] [...] 1 tabl (more content not included)... Normal [facility] XR chest 2V*on 12-19-2023 XR chest 2V* [facility] [place] [address] XRay Report Signed Patient: Natalie Jaquez MR#: [id number] : 1995 Acct:[id number] Age/Sex: 28 / F ADM Date: 12/19/23 Loc: [facility] Room: Type: [facility] Attending Dr: Shelbie Allred APRN Copies to: Shelbie Allred APRN Ordering Provider: [...] Serena Martin M.D.12/19/2023 2:18 PM Dictation Location: [place] [address] Transcribed By: [facility] 12/19/23 1418 Dictated By: Serena Martin MD 12/19/23 1417 Signed By: 12/19/23 1418 Normal [facility] MR Brain WO and W contrast I Ari 11-14-2023 * * *Final Report* * * DATE OF EXAM: Nov 14 2023 1:20PM DAMI 0295 - MRI BRAIN WO/W IVCON / [...] Improvement: None. New Enhancing Lesions: None T2 [place] of Disease: Mild. Parenchymal Volume Loss: None. [...] signal intensity and morphology. Cord T2 Plaque [place]: None New T2 Lesions: None Interval Cord [...] equal to 2mm). DIVISION OF RADIOLOGY Provider, Jomar Keys [facility] - 11/14/2023 * * *Final Report* * * DATE OF EXAM: Nov 14 2023 1:20PM BR 0295 - MRI BRAIN WO/W IVCON / [...] Improvement: None. New Enhancing Lesions: None T2 [place] of Disease: Mild. Parenchymal Volume Loss: None. [...] signal intensity and morphology. Cord T2 Plaque [place]: None New T2 Lesions: None Interval Cord [...] and assume there are 5 lumbar-type vertebrae. Personal Insurance Advisor: [facility]PITALLola Transcribe Date/Time: Nov 14 2023 2:47P Dictated by : LEAH MURILLO MD This examination was interpreted and the report reviewed and electronically signed by: LEAH MURILLO MD on Nov 14 2023 2:59PM [facility] MR Lumbar spine WO contrasto n 11-14-2023 * * *Final Report* * * DATE OF EXAM: Nov 14 2023 1:20PM BRM 0303 - MRI LUMBAR SPINE WO IVCON [...] Improvement: None. New Enhancing Lesions: None T2 [place] of Disease: Mild. Parenchymal Volume Loss: None. [...] signal intensity and morphology. Cord T2 Plaque [place]: None New T2 Lesions: None Interval Cord [...] equal to 2mm). DIVISION OF RADIOLOGY Provider, [facility] - 11/14/2023 * * *Final Report* * * DATE OF EXAM: Nov 14 2023 1:20PM BRM 0303 - MRI LUMBAR SPINE WO IVCON [...] Improvement: None. New Enhancing Lesions: None T2 [place] of Disease: Mild. Parenchymal Volume Loss: None. [...] signal intensity and morphology. Cord T2 Plaque [place]: None New T2 Lesions: None Interval Cord [...] and assume there are 5 lumbar-type vertebrae. Personal Insurance Advisor: [employer] Transcribe Date/Time: Nov 14 2023 2:47P Dictated by : LEAH MURILLO MD This examination was interpreted and the report reviewed and electronically signed by: LEAH MURILLO MD on Nov 14 2023 2:59PM [facility] MRI BRAIN WO/W IVCONon 11-13 MRI BRAIN WO/W IVCON * * *Final Report* * * DATE OF EXAM: Nov 14 2023 1:20PM BR 0295 - MRI BRAIN WO/W IVCON / [...] Improvement: None. New Enhancing Lesions: None T2 [place] of Disease: Mild. Parenchymal Volume Loss: None. [...] signal intensity and morphology. Cord T2 Plaque [place]: None New T2 Lesions: None Interval Cord [...] and assume there are 5 lumbar-type vertebrae. Personal Insurance Advisor: [facility] Transcribe Date/Time: Nov 14 2023 2:47P Dictated by : LEAH MURILLO MD This examination was interpreted and the report reviewed and electronically signed by: LEAH MURILLO MD on Nov 14 2023 2:59PM EST [id number] Normal [facility] MRI LUMBAR SPINE WO IVCONon 11-14-2023 MRI LUMBAR SPINE WO IVCON * * *Final Report* * * DATE OF EXAM: Nov 14 2023 1:20PM [facility] 0303 - MRI LUMBAR SPINE [...] Improvement: None. New Enhancing Lesions: None T2 [place] of Disease: Mild. Parenchymal Volume Loss: None. [...] signal intensity and morphology. Cord T2 Plaque [place]: None New T2 Lesions: None Interval Cord [...] and assume there are 5 lumbar-type vertebrae. Personal Insurance Advisor: [employer] Transcribe Date/Time: Nov 14 2023 2:47P Dictated by : LEAH MURILLO MD This examination was interpreted and the report reviewed and electronically signed by: LEAH MURILLO MD on Nov 14 2023 2:59PM EST [id number] Normal [facility] No Panel Informationon 11-13 IMPRESSION: Multiple [...] and assume there are 5 lumbar-type vertebrae. Personal Insurance Advisor: [employer] Transcribe Date/Time: Nov 14 2023 2:47P Dictated by : LEAH MURILLO MD This examination was interpreted and the report reviewed and electronically signed by: LEAH MURILLO MD on Nov 14 2023 2:59PM [facility] DIVISION OF RADIOLOGY Radiology Study observation (narrative) [facility] No Panel InformationOrdered By: [facility] Provider on 11-14-2023 [facility] CNOVon 08-29-2023 CNOV Office Visit (NEMN ) NATALIE JAQUEZ ([id number]) 1995 F Date Time Provider Department 08/29/23 9:15 AM [facility] During your visit today, we recorded the following information about you: Pulse Blood pressure Weight Height 77/minute 134/80 121.3 kg 1.676 m Last Period 08/29/23 Yoly Miller APRN.HAND ETCHER HELPER 08/29/2023 9:49 AM Signed [facility] FOLLOWUP/ESTABLISHED PATIENT VISIT PRINCIPAL NEUROLOGIC DIAGNOSIS: Multiple [...] 2022. 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 Reports BLE spasms. Is taking Baclofen 10mg QHS. Does endorse adequate water intake. Mood: Not bad Spasticity: See HPI Bladder: urgency, incontinence- more at night. Wears pad Bowel: Normal Pain related to today's visit:reviewed on nursing intake documentation Fatigue: Tolerable Sleep: Ok, naps occasionally Memory/Concentration: Losing train of thought Neuro-QoL Functions (higher=better functioning) Flowsheet Row Office Visit from 09/02/2022 in [facility] Appointment from 01/31/2022 in [facility] from 08/03/2021 in [facility] Upper Extremity Domain T Score 39 57 [...] Flowsheet Row Office Visit from 09/02/2022 in [facility] Appointment from 01/31/2022 in [facility] from 08/03/2021 in [facility] Sleep Domain T Score 60 59 61 [...] ferrous sulfate, norgestimate-ethinyl estradiol, and levothyroxine. EXAM: [facility] 09/02/2022 (Exact Date) Multiple Sclerosis Performance Test Flowsheet [facility] Office Visit from 12/04/2020 in [facility] Office Visit from 10/05/2017 in [facility] Processing Speed Total Number Correct 59 70 Low-contrast letter acuity test-2.5 percent opacity 34 36 Low-contrast letter acuity test-100 percent opacity 59 59 Dominant hand -- -- MDT Left Hand Time 21.88 20.98 MDT Right Hand Time 20.13 19.06 Walking Speed Test (25 feet) 3.85 4.97 General Appearance: w (more content not included)... Normal [facility] Auth for Release of Medical Recordson 02-23-2023 Auth for Release of Medical Records [id number]#1.00CD:127 Normal [facility] COVID + FLU Quick Testingon 01-28-2023 SARS-CoV-2 (COVID-19) RNA JENNA+probe Ql (Unsp spec) Positive [employer] Other COVID + FLU Quick Testing Negative [employer] Other No Panel Informationon 01-23 Brain Enhancing Lesions None [facility] Brain Interval Improvement None [facility] Brain New T2 Lesions None [facility] Brain Other Significant MRI Findings None. [facility] Brain Parenchymal Volume Loss None [facility] Brain T2 [place] of Disease Mild [facility] Cervical spine enhancing lesions None [facility] Cervical Spine New T2 Lesions None [facility] Cervical Spine T2 [place] of Disease Mild to moderate [facility] COVID + FLU Quick Testingon 11-20-2022 SARS-CoV-2 (COVID-19) RNA JENNA+probe Ql (Unsp spec) Negative [employer] Other COVID + FLU Quick Testing Negative [employer] Other CBC W Auto Differential pane l (Bld)on 09-02-2022 Basophils (Bld) [#/Vol] 0.04 10*3/uL <0.11 k/uL [facility] Basophils/100 WBC (Bld) 0.4 % [facility] Differential cell count method Nom (Bld) Auto [facility] Eosinophils (Bld) [#/Vol] 0.08 10*3/uL <0.46 k/uL [facility] Eosinophils/100 WBC (Bld) 0.8 % [facility] Erythrocyte distribution width (RBC) [Ratio] 12.7 % 11.5 - 15.0 % [facility] Hematocrit (Bld) [Volume fraction] 44.9 % 36.0 - 46.0 % [facility] Hemoglobin (Bld) [Mass/Vol] 14.5 g/dL 11.5 - 15.5 g/dL [facility] Immature granulocytes (Bld) [#/Vol] 0.04 10*3/uL <0.10 k/uL [facility] Immature granulocytes/100 WBC (Bld) 0.4 % [facility] Lymphocytes (Bld) [#/Vol] 2.93 10*3/uL 1.00 - 4.00 k/uL [facility] Lymphocytes/100 WBC (Bld) 28.9 % [facility] MCH (RBC) [Entitic mass] 28.7 pg 26.0 - 34.0 pg [facility] MCHC (RBC) [Mass/Vol] 32.3 g/dL 30.5 - 36.0 g/dL [facility] MCV (RBC) [Entitic vol] 88.9 fL 80.0 - 100.0 fL [facility] Monocytes (Bld) [#/Vol] 0.69 10*3/uL <0.87 k/uL [facility] Monocytes/100 WBC (Bld) 6.8 % [facility] Neutrophils (Bld) [#/Vol] 6.35 10*3/uL 1.45 - 7.50 k/uL [facility] Neutrophils/100 WBC (Bld) 62.7 % [facility] Nucleated RBC (Bld) [#/Vol] <0.01 k/uL [facility] Nucleated RBC/100 WBC (Bld) [Ratio] 0.0 /100 WBC [facility] Platelet mean volume (Bld) [Entitic vol] 9.3 fL 9.0 - 12.7 fL [facility] Platelets (Bld) [#/Vol] 418 10*3/uL High 150 - 400 k/uL [facility] RBC (Bld) [#/Vol] 5.05 10*6/uL 3.90 - 5.20 m/uL [facility] WBC (Bld) [#/Vol] 10.13 10*3/uL 3.70 - 11.00 k/uL [facility] Comprehensive metabolic 2000 panelon 09-02-2022 Albumin [Mass/Vol] 4.0 g/dL 3.9 - 4.9 g/dL [facility] ALP [Catalytic activity/Vol] 81 U/L 34 - 123 U/L [facility] ALT [Catalytic activity/Vol] 19 U/L 7 - 38 U/L [facility] Anion gap [Moles/Vol] 11 mmol/L 9 - 18 mmol/L [facility] AST [Catalytic activity/Vol] 18 U/L 13 - 35 U/L [facility] Bilirubin [Mass/Vol] Low 0.2 - 1 .3 mg/dL [facility] Calcium [Mass/Vol] 9.6 mg/dL 8.5 - 10. 2 mg/dL [facility] Chloride [Moles/Vol] 101 mmol/L 97 - 10 5 mmol/L [facility] CO2 [Moles/Vol] 27 mmol/L 22 - 30 mmol/L [facility] Creatinine [Mass/Vol] 0.74 mg/dL 0.58 - 0.96 mg/dL [facility] Estimated Glomerular Filtration Rate 116 mL/min/1.73m >=60 mL/min/1.7 3m [facility] Glucose [Mass/Vol] 92 mg/dL 74 - 99 mg/dL [facility] Potassium [Moles/Vol] 4.3 mmol/L 3.7 - 5.1 mmol/L [facility] Protein [Mass/Vol] 6.8 g/dL 6.3 - 8.0 g/dL [facility] Sodium [Moles/Vol] 139 mmol/L 136 - 144 mmol/L [facility] Urea nitrogen [Mass/Vol] 11 mg/dL 7 - 21 mg/dL [facility] VITAMIN D 25 HYDROXYon 09-02 25-hydroxyvitamin D3 [Mass/Vol] 53.5 ng/mL 31.0 - 80.0 ng/mL [facility] Quick Strepon 07-27-2022 S. pyogenes Org specific cx Ql (Throat) Negative [employer] Other Quick Strep [employer] Other General Surgery Office/Clini c Noteon 07-05-2022 [...] BID, # 60 EA, Refills(s) 3, Pharmacy: [facility]/pharmacy #[id number], 165, cm, 05/24/22 14:22:00 EDT, Height/Length Dosing, 106, kg, 05/24/22 14:22:00 EDT, Weight Dosing 2. Change in bowel habits (R19.4: Change in bowel habit) see # 1 Ordered: cholestyramine, = 1 packet(s), Oral, BID, # 60 EA, Refills(s) 3, Pharmacy: [facility]/pharmacy #[id number], 165, cm, 05/24/22 14:22:00 EDT, [...] [id number] vax 04/01/2021 Recorded 2022-05-24: TPVAL Normal [facility] Comment on above: Result Comment: Elec tronically Signed By: MATTHEW BENÍTEZ, Yusuf Jefferson\Date and Time Signed: 07/05/22 15:06 EST Pathology Noteon 06-24-2022 Pathology Note [id number]:127 Normal [facility] Outside Colonoscopyon 2021 Outside Colonoscopy [id number]:127 Normal [facility] PREG HCG QUALon 06-22-2022 , QUAL Negative Normal NEGATIVE [facility] Comment on above: Performed By: #### P REG #### [facility] [address] [place], [place] [address] Dr. Marty Olson Lab Reportson 06-20-2022 Lab Reports [id number]:127 Normal [facility] Covid-19 PCR (CVDTBH)on 05-25 SARS-CoV-2 (COVID-19) RNA JENNA+probe Ql (Unsp spec) Not detected Normal NOT DETECTED [facility] Comment on above: Result Comment: When [...] for this test is supported by the [place] of Health and Human Service's declaration that [...] longer be used). Performed By: #### C VDTB #### [facility] [id number] Marty Olson Consent for Procedure/Surger yon 05-25-2022 Consent for Procedure/Surgery [id number]:127 Normal [facility] Ambulatory Visit Summaryon 07-24-2021 Ambulatory Visit Summary NATALIE JAQUEZ :1995 Visit Date:05/24/2022 Ambulatory Visit Instructions Your Diagnosis Vapes nicotine containing substance Rectal bleeding Change in bowel habits Your Care Team Attending Physician - MATTHEW BENÍTEZ, Yusuf Ryan Primary Care Physician - JULISSA BENÍTEZ, JAYME Referring Physician - JAYME SCHMIDT MD This Is Your Medications List amphetamine-dextroamphetami [...] nicotine containing substance Vitamin D deficiency Normal [facility] INSULINon 05-07-2022 Insulin 22.9 uIU/mL Normal 2.6-24.9 [facility] Comment on above: Performed By: #### I NSULIN #### [facility] [address] [place] [address] Dr. Marty Olson CBC AUTO DIFFon 05-06-2022 BASO # 0.0 103/ul Normal 0.0-0.1 [facility] Comment on above: Performed By: #### C BC #### [facility] [address] [place] [address] Dr. Marty Olson Basophils/100 WBC (Bld) 0.4 % Normal 0.2-2.0 [facility] Comment on above: Performed By: #### C BC #### [facility] [address] [place] [address] Dr. Marty Olson EO # 0.2 103/ul Normal 0.0-0.7 [facility] Comment on above: Performed By: #### C BC #### [facility] [address] [place] [address] Dr. Marty Olson Eosinophils/100 WBC (Bld) 1.9 % Normal 0.9-7.0 [facility] Comment on above: Performed By: #### C BC #### [facility] [address] [place] [address] Dr. Marty Olson Erythrocyte distribution width (RBC) [Ratio] 12.3 % Normal 11.0-15.0 [facility] Comment on above: Performed By: #### C BC #### [facility] [address] [place] [address] Dr. Marty Olson Hematocrit (Bld) [Volume fraction] 41.3 % Normal 36.0-48.0 [facility] Comment on above: Performed By: #### C BC #### [facility] [address] [place] [address] Dr. Marty Olson Hemoglobin (Bld) [Mass/Vol] 13.4 g/dL Normal 12.0-16.0 [facility] Comment on above: Performed By: #### C BC #### [facility] [address] [place] [address] Dr. Marty Olson IG # 0.03 10e3/ul Normal 0.00-0.03 [facility] Comment on above: Performed By: #### C BC #### [facility] [address] [place] [address] Dr. Marty Olson IG % 0.4 % Normal 0.0-0.5 [facility] Comment on above: Performed By: #### C BC #### [facility] [address] [place] [address] Dr. Marty Olson LYMPH # 1.7 103/ul Normal 1.2-3.8 [facility] Comment on above: Performed By: #### C BC #### [facility] [address] [place] [address] Dr. Marty Olson Lymphocytes/100 WBC (Bld) 19.4 % Critically low 20.5-60.0 [facility] Comment on above: Performed By: #### C BC #### [facility] [address] [place] [address] Dr. Marty Olson MANUAL DIFF REQ NO Normal [facility] Comment on above: Performed By: #### C BC #### [facility] [address] [place] [address] Dr. Marty Olson MCH (RBC) [Entitic mass] 29.4 pg Normal 26.7-34.0 [facility] Comment on above: Performed By: #### C BC #### [facility] [address] [place] [address] Dr. Marty Olson MCHC (RBC) [Mass/Vol] 32.4 g/dL Normal 29.9-35.2 [facility] Comment on above: Performed By: #### C BC #### [facility] [address] [place] [address] Dr. Marty Olson MCV (RBC) [Entitic vol] 90.6 fL Normal 81.0-99.0 [facility] Comment on above: Performed By: #### C BC #### [facility] [address] [place] [address] Dr. Marty Olson MONO # 0.6 103/ul Normal 0.3-0.8 [facility] Comment on above: Performed By: #### C BC #### [facility] [address] [place] [address] Dr. Marty Olson Monocytes/100 WBC (Bld) 6.6 % Normal 1.7-12.0 [facility] Comment on above: Performed By: #### C BC #### [facility] [address] [place] [address] Dr. Marty Olson NEUT # 6.1 103/ul Normal 1.4-6.5 [facility] Comment on above: Performed By: #### C BC #### [facility] [address] [place] [address] Dr. Marty Olson Neutrophils/100 WBC (Bld) 71.3 % Normal 43.0-75.0 [facility] Comment on above: Performed By: #### C BC #### [facility] [address] [place] [address] Dr. Marty Olson Platelet mean volume (Bld) [Entitic vol] 9.2 fL Critically low 9.5-13.5 [facility] Comment on above: Performed By: #### C BC #### [facility] [address] [place] [address] Dr. Marty Olson PLT 365 103/ul Normal 150-450 [facility] Comment on above: Performed By: #### C BC #### [facility] [address] [place] [address] Dr. Marty Olson RBC 4.56 106/ul Normal 4.20-5.40 [facility] Comment on above: Performed By: #### C BC #### [facility] [address] [place] [address] [address] Marty Olson WBC 8.5 103/ul Normal 4.0-11.0 [facility] Comment on above: Performed By: #### C BC #### [facility] [address] [place] [address] [address] Marty Olson FERRITINon 05-06-2022 Ferritin [Mass/Vol] 79.0 ng/mL Normal 6.2-137.0 [facility] Comment on above: Performed By: #### V ITAD, IRON, FERR, FT4 #### [facility] [address] [place] [address] Dr. Marty Olson FREE T3on 05-06-2022 FREE T3 2.48 pg/mlL Normal 2.18-3.98 [facility] Comment on above: Performed By: #### T SH, LIPID, FT3, BMP, LIVER ####[facility] [address] [place] [address]Dr. Marty Olson FREE T4on 05-06-2022 Free T4 [Mass/Vol] 1.00 ng/dL Normal 0.76-1.46 [facility] Comment on above: Performed By: #### V ITAD, IRON, FERR, FT4 #### [facility] [address] [place] [address] Dr. Marty Olson GLYCOHEMOGLOBIN A1Con 2021 ADA RECOMMENDATION SEE BELOW Normal [facility] Comment on above: Result Comment: ADA RECOMMENDED LIMIT 4.0 - 6.0 ADA THERAPEUTIC TARGET < 7.0 ACTION SUGGESTED > 7.0 Performed By: #### A 1C #### [facility] [address] [place] [address] Dr. Marty Olson Glucose [Mass/Vol] 108 mg/dL Normal [facility] Comment on above: Performed By: #### A 1C #### [facility] [address] [place] [address] Dr. Marty Olson HbA1c (Bld) [Mass fraction] 5.4 % Normal 4.5-6.2 [facility] Comment on above: Performed By: #### A 1C #### [facility] [address] [place] [address] [address] Marty Olson IRONon 05-06-2022 Iron [Mass/Vol] 32.0 ug/dL Critically low 50.0-170.0 [facility] Comment on above: Performed By: #### V ITAD, IRON, FERR, FT4 #### [facility] [address] [place] [address] [address] Marty Olson LIPID PROFILEon 05-06-2022 CHOL-HDL RATIO NORM SEE BELOW Normal [facility] Comment on above: Result Comment: 3.3 - 4.4 LOW RISK 4.4 - 7.1 AVERAGE RISK 7.1 - 11.0 MODERATE RISK >11.0 HIGH RISK Performed By: #### T SH, LIPID, FT3, BMP, LIVER ####[facility] [address] [place] [address]Dr. Marty Olson Cholesterol [Mass/Vol] 172 mg/dL Normal <=200 [facility] Comment on above: Performed By: #### T SH, LIPID, FT3, BMP, LIVER ####[facility] [address] [place] [address]Dr. Marty Olson Cholesterol in HDL [Mass/Vol] 68 mg/dL Critically high 40-60 [facility] Comment on above: Performed By: #### T SH, LIPID, FT3, BMP, LIVER ####[facility] [address] [place] [address]Dr. Marty Olson Cholesterol in LDL [Mass/Vol] 95.0 mg/dL Normal [facility] Comment on above: Performed By: #### T SH, LIPID, FT3, BMP, LIVER ####[facility] [address] [place] [address]Dr. Marty Olson Cholesterol.total/Ch olesterol in HDL [Mass ratio] 2.5 {ratio} Normal [facility] Comment on above: Performed By: #### T SH, LIPID, FT3, BMP, LIVER ####[facility] [address] [place] [address]Dr. Evebipin Olson HDL NORMAL > or = 60 mg/dl - LO W CARDIOVASCULAR RISK <40 mg/dl - HIGH CARDIOVASCULAR RISK Normal [facility] Comment on above: Performed By: #### T SH, LIPID, FT3, BMP, LIVER ####[facility] [address] [place] [address]Dr. Evebipin Olson LDL CALC NORMAL SEE BELOW Normal [facility] Comment on above: Result Comment: <100 mg/dl OPTIMAL 100 - 129 mg/dl NEAR OR ABOVE OPTIMAL 130 - 159 mg/dl BORDERLINE HIGH 160 - 189 mg/dl HIGH >190 mg/dl VERY HIGH Performed By: #### T SH, LIPID, FT3, BMP, LIVER ####[facility] [address] [place] [address]Dr. Marty Olson Triglyceride [Mass/Vol] 45 mg/dL Normal <=150 [facility] Comment on above: Performed By: #### T SH, LIPID, FT3, BMP, LIVER ####[facility] [address] [place] [address]Dr. Marty Olson VLDL CALC 9.0 mg/dL Normal [facility] Comment on above: Performed By: #### T SH, LIPID, FT3, BMP, LIVER ####[facility] [address] [place] [address]Dr. Marty Olson LIVER PROFILEon 05-06-2022 Albumin [Mass/Vol] 3.1 g/dL Critically low 3.4-5.0 Th [facility] Comment on above: Performed By: #### T SH, LIPID, FT3, BMP, LIVER ####[facility] [address] [place] [address]Dr. Marty Olson Albumin/Globulin [Mass ratio] 0.9 {ratio} Normal [facility] Comment on above: Performed By: #### T SH, LIPID, FT3, BMP, LIVER ####[facility] [address] [place] [address]Dr. Evebipin Olson ALP [Catalytic activity/Vol] 69 U/L Normal 46-116 [facility] Comment on above: Performed By: #### T SH, LIPID, FT3, BMP, LIVER ####[facility] [address] [place] [address]Dr. Marty Olson ALT [Catalytic activity/Vol] 21 U/L Normal 14-59 [facility] Comment on above: Performed By: #### T SH, LIPID, FT3, BMP, LIVER ####[facility] [address] [place] [address]Dr. Marty Olson AST [Catalytic activity/Vol] 11 U/L Critically low 15-37 [facility] Comment on above: Performed By: #### T SH, LIPID, FT3, BMP, LIVER ####[facility] [address] [place], [place] [address]Dr. Marty Olson BILI, CONJUGATED 0.1 mg/dL Normal 0.0-0.2 [facility] Comment on above: Performed By: #### T SH, LIPID, FT3, BMP, LIVER ####[facility] [address] [place], [place] [address]Dr. Marty Olson Bilirubin [Mass/Vol] 0.2 mg/dL Normal 0.2-1.0 [facility] Comment on above: Performed By: #### T SH, LIPID, FT3, BMP, LIVER ####[facility] [address] [place] [address]Dr. Marty Olson Globulin (S) [Mass/Vol] 3.4 g/dL Normal [facility] Comment on above: Performed By: #### T SH, LIPID, FT3, BMP, LIVER ####[facility] [address] [place] [address]Dr. Marty Olson Protein [Mass/Vol] 6.5 g/dL Normal 6.4-8.2 [facility] Comment on above: Performed By: #### T SH, LIPID, FT3, BMP, LIVER ####[facility] [address] [place] [address]Dr. Marty Olson PROF CHEM 8 (BAS METB)on Anion gap [Moles/Vol] 10.3 mmol/L Normal [facility] Comment on above: Performed By: #### T SH, LIPID, FT3, BMP, LIVER ####[facility] [address] [place] [address]Dr. Marty Olson Calcium [Mass/Vol] 8.3 mg/dL Critically low 8.5-10.1 [facility] Comment on above: Performed By: #### T SH, LIPID, FT3, BMP, LIVER ####[facility] [address] [place] [address]Dr. aMrty Olson Chloride [Moles/Vol] 107 mmol/L Normal 98-107 [facility] Comment on above: Performed By: #### T SH, LIPID, FT3, BMP, LIVER ####[facility] [address] [place] [address]Dr. Marty Olson CO2 [Moles/Vol] 25.0 mmol/L Normal 21.0-32.0 [facility] Comment on above: Performed By: #### T SH, LIPID, FT3, BMP, LIVER ####[facility] [address] [place] [address]Dr. Marty Olson Creatinine [Mass/Vol] 0.72 mg/dL Normal 0.55-1.02 [facility] Comment on above: Performed By: #### T SH, LIPID, FT3, BMP, LIVER ####[facility] [address] [place] [address]Dr. Marty Olson EGFR-AF CYMRO >60 Normal >=60 [facility] Comment on above: Performed By: #### T SH, LIPID, FT3, BMP, LIVER ####[facility] [address] [place] [address]Dr. Marty Olson EGFR-NON AF CYMRO >60 Normal >=60 [facility] Comment on above: Performed By: #### T SH, LIPID, FT3, BMP, LIVER ####[facility] [address] [place] [address]Dr. Marty Olson Glucose [Mass/Vol] 94 mg/dL Normal 74-106 [facility] Comment on above: Performed By: #### T SH, LIPID, FT3, BMP, LIVER ####[facility] [address] [place] [address]Dr. Evebipin Olson Potassium [Moles/Vol] 4.3 mmol/L Normal 3.5-5.1 [facility] Comment on above: Performed By: #### T SH, LIPID, FT3, BMP, LIVER ####[facility] [address] [place] [address]Dr. Marty Olson Sodium [Moles/Vol] 138 mmol/L Normal 136-145 [facility] Comment on above: Performed By: #### T SH, LIPID, FT3, BMP, LIVER ####[facility] [address] [place] [address]Dr. Marty Olson Urea nitrogen [Mass/Vol] 19.0 mg/dL Critically high 7.0-18.0 [facility] Comment on above: Performed By: #### T SH, LIPID, FT3, BMP, LIVER ####[facility] [address] [place] [address]Dr. Marty Olson Urea nitrogen/Creatinine [Mass ratio] 26.4 mg/mg Normal [facility] Comment on above: Performed By: #### T SH, LIPID, FT3, BMP, LIVER ####[facility] [address] [place] [address]Dr. Marty Olson TSHon 05-06-2022 TSH 1.968 uIU/mL Normal 0.358-3.74 0 [facility] Comment on above: Performed By: #### T SH, LIPID, FT3, BMP, LIVER ####[facility] [address] [place] [address]Dr. Marty Olson VITAMIN D 25 OHon 05-06-2022 VIT D 25-OH 43.8 ng/mL Normal [facility] Comment on above: Performed By: #### V ITAD, IRON, FERR, FT4 #### [facility] [address] [place] [address] [address] Marty Olson VIT D RANGES SEE BELOW Normal [facility] Comment on above: Result Comment: <20 ng/mL Vit D deficient 20 - <30 ng/mL Vit D insufficient 30 - 100 ng/mL Vit D sufficient >100 ng/mL Potential Toxicity Performed By: #### V ITAD, IRON, FERR, FT4 #### [facility] [address] [place] [address] [address] Marty Olson Physician Referralon 022 Physician Referral [id number]:127 Normal [facility] C BP Strepon 11-16-2021 C BP Strep order added by vinay grajeda This is strictly a screening test for Strep Group A( Streptococcus pyogenes). No other pathogens will be noted. Final Backup plate negative for Group A Streptococus Resulted at [facility] Normal [facility] Comment on above: Performed By: #### B P #### [facility] (DEFAULT) [address] [id number] [address] [address] ED Clinical Summaryon 2021 ED Clinical Summary (Inserted Image. Suzy ble to display) [place] [address] ED Clinical Summary Person Information Name: Natalie Jaquez Miriam/[facility] Age: 26 Years : 1995 Sex: Female PCP: Jayme Schmidt MD Marital Status: Single Phone: Race: White Ethnicity: Not or Language: Ivorian Visit Reason: Ear pain; Throat pain - Adult; Throat pain Acuity: 4 Enc Type: Emergency Med Service: Emergency Medicine Arrival: 11/14/2021 06:21:46 Discharge: 11/14/2021 08:20:00 LOS: 000 01:59 Checkin: 11/14/2021 06:21:46 Checkout: 11/14/2021 08:20:00 Dispo Type: Home or Self Care Address: [address] [address] Provider Notes: Diagnosis: 1:Pharyngitis Problems No Problems [...] Visit Final Med List: New Medications [id number], [address] [place] [id number], [phone] amoxicillin (amoxicillin 500 mg oral tablet) 1 [...] venlafaxine Oral (given by mouth). Last Dose: [id number], [address] [place], [place] [id number], [phone] amoxicillin (amoxicillin 500 mg oral tablet) 1 [...] 07:02:59 Follow up: With: Address: When: Jayme Schmidt [facility] [place] [phone] Business (1) , only if needed Discharge Orders: Discharge Patient 11/14/21 8:07:00 EDT, Discharge to Home, Self, Pharyngitis Patient Education Information: Pharyngitis, Report Pending [facility] Poison Help line: . [facility] Hotline: [place] Tobacco Quit Line: [facility] ([place], [place]) [address]: [phone] [facility] ([place], [place]) [address]: [phone] [facility] [address] [facility]. [place], [place]: [phone] [facility] ED Note-Physicianon 11-15-19 ED Note-Physician [...] tabs, 0 Refill(s), 11/21/21 8:06:00 EDT, Pharmacy: [id number] naproxen, 1 tabs, Oral, BID, PRN, X 15 days, # 30 tabs, 0 Refill(s), 11/29/21 8:06:00 EDT, Pharmacy: [id number] Discharge Patient Orders: Culture Backup Strep [...] is unknown Diagnostic Results Electronically signed by David Montana MD 11/14/21 10:58 EDT Normal [facility] Strep Aon 11-14-2021 Strep A Negative Normal Negative [facility] Comment on above: Result Comment: A n [...] to the clinician. Performed By: #### L LAZARA #### [address] [address] BRAIN & CERVICAL SPINE MRI D ISCRETE DATAon 2021 Brain Enhancing Lesions None [facility] Brain Interval Improvement None [facility] Brain New T2 Lesions None [facility] Brain Other Significant MRI Findings None. [facility] Brain Parenchymal Volume Loss None [facility] Brain T2 [place] of Disease Mild [facility] MRI BRAIN WO/W IVCONon 11-05 [facility] Send-out: Otheron 09-29-2021 Send-out Other See Report Normal [facility] Comment on above: Order Comment: [facility] LaboratoriesTest Name: Vitamin D2 and D3Test Code: 25HDNdraw one sst Result Comment: Miss ing Attachment Chartable Reference Lab Reports Can be viewed in source system Performed By: #### H BA1C #### [address] [address] .eGFRon 09-23-2021 eGFR Non-AA >60 Normal >=60 [facility] Comment on above: Result Comment: Stag es [...] years Performed By: #### L IVER #### [address] [address] eGFR AA >60 Normal >=60 [facility] Comment on above: Result Comment: See comment. Performed By: #### L IVER #### [address] [address] Basic Metabolic Profileon Anion gap [Moles/Vol] 14 mmol/L Normal 7-17 [facility] Comment on above: Performed By: #### L IVER #### [address] [address] Calcium [Mass/Vol] 8.6 mg/dL Normal 8.5-10.3 [facility] Comment on above: Performed By: #### L IVER #### [address] [address] Chloride [Moles/Vol] 101 mmol/L Normal 98-110 [facility] Comment on above: Performed By: #### L IVER #### [address] [address] CO2 [Moles/Vol] 25 mmol/L Normal 22-32 [facility] Comment on above: Performed By: #### L IVER #### [address] [address] Creatinine [Mass/Vol] 0.75 mg/dL Normal 0.44-1.03 [facility] Comment on above: Performed By: #### L IVER #### [address] [address] Glucose [Mass/Vol] 81 mg/dL Normal 70-99 [facility] Comment on above: Performed By: #### L IVER #### [address] [address] Potassium [Moles/Vol] 3.4 mmol/L Normal 3.4-4.8 [facility] Comment on above: Performed By: #### L IVER #### [address] [address] Sodium [Moles/Vol] 137 mmol/L Normal 133-142 [facility] Comment on above: Performed By: #### L IVER #### [address] [address] Urea nitrogen [Mass/Vol] 16 mg/dL Normal 8-26 [facility] Comment on above: Performed By: #### L IVER #### [address] [address] Urea nitrogen/Creatinine [Mass ratio] 21.3 mg/mg High 10.0-20.0 [facility] Comment on above: Performed By: #### L IVER #### [address] [address] CBC w/ Diffon 09-23-2021 Erythrocyte distribution width (RBC) [Ratio] 14.6 % Normal 11.6-14.8 [facility] Comment on above: Performed By: #### C BC #### [address] [address] Hematocrit (Bld) [Volume fraction] 36.6 % Normal 36.0-46.0 [facility] Comment on above: Performed By: #### C BC #### [address] [address] Hemoglobin (Bld) [Mass/Vol] 12.3 g/dL Normal 12.0-16.0 [facility] Comment on above: Performed By: #### C BC #### [address] [address] MCH (RBC) [Entitic mass] 29.9 pg Normal 27.0-35.0 [facility] Comment on above: Performed By: #### C BC #### [address] [address] MCHC 33.5 % Normal 31.0-37.0 [facility] Comment on above: Performed By: #### C BC #### [address] [address] MCV (RBC) [Entitic vol] 89.3 fL Normal 80.0-100.0 [facility] Comment on above: Performed By: #### C BC #### [address] [address] Platelet 385 x10*3/mcL High 150-350 [facility] Comment on above: Performed By: #### C BC #### [address] [address] Platelet mean volume (Bld) [Entitic vol] 7.4 fL Normal 6.7-10.6 [facility] Comment on above: Performed By: #### C BC #### [address] [address] RBC 4.10 x10*6/mcL Normal 3.80-5.20 [facility] Comment on above: Performed By: #### C BC #### [address] [address] WBC 10.4 x10*3/mcL Normal 4.5-11.0 [facility] Comment on above: Performed By: #### C BC #### [address] [address] Diff Autoon 09-23-2021 Baso Absolute 0.0 x10*3/mcL Normal 0.0-0.2 [facility] Comment on above: Performed By: #### L IVER #### [address] [address] Basophils/100 WBC (Bld) 0.3 % Normal 0.0-1.5 [facility] Comment on above: Performed By: #### L IVER #### [address] [address] Eos Absolute 0.1 x10*3/mcL Normal 0.0-0.4 [facility] Comment on above: Performed By: #### L IVER #### [address] [address] Eosinophils/100 WBC (Bld) 0.6 % Normal 0.0-5.4 [facility] Comment on above: Performed By: #### L IVER #### [address] [address] Lymph Absolute 2.1 x10*3/mcL Normal 1.0-4.8 [facility] Comment on above: Performed By: #### L IVER #### [address] [address] Lymphocytes/100 WBC (Bld) 19.8 % Low 27.2-40.8 [facility] Comment on above: Performed By: #### L IVER #### [address] [address] Willacy Absolute 0.7 x10*3/mcL Normal 0.1-1.1 [facility] Comment on above: Performed By: #### L IVER #### [address] [address] Monocytes/100 WBC (Bld) 6.4 % Normal 3.7-11.9 [facility] Comment on above: Performed By: #### L IVER #### [address] [address] Neutro Absolute 7.6 x10*3/mcL Normal 1.8-7.7 [facility] Comment on above: Performed By: #### L IVER #### [address] [address] Neutro Auto 72.9 % High 47.2-70.8 [facility] Comment on above: Performed By: #### L IVER #### [address] [address] Free T3on 09-23-2021 Free T3 [Mass/Vol] 3.29 pg/mL Normal 2.50-3.90 [facility] Comment on above: Performed By: #### L IVER #### [address] [address] Free T4on 09-23-2021 Free T4 [Mass/Vol] 0.82 ng/dL Normal 0.61-1.12 [facility] Comment on above: Performed By: #### L IVER #### [address] [address] Hep Func Panelon 09-23-2021 Albumin [Mass/Vol] 3.9 g/dL Normal 3.2-4.9 [facility] Comment on above: Performed By: #### L IVER #### [address] [address] Alk Phos 61 IU/L Normal 32-91 [facility] Comment on above: Performed By: #### L IVER #### [address] [address] ALT [Catalytic activity/Vol] 17 U/L Normal 14-54 [facility] Comment on above: Performed By: #### L IVER #### [address] [address] AST [Catalytic activity/Vol] 18 U/L Normal 15-41 [facility] Comment on above: Performed By: #### L IVER #### [address] [address] Bili Direct 0.2 mg/dL Normal 0.1-0.5 [facility] Comment on above: Performed By: #### L IVER #### [address] [address] Bili Indirect 0.4 mg/dL Normal 0.0-1.0 [facility] Comment on above: Performed By: #### L IVER #### [address] [address] Bili Total 0.6 mg/dL Normal 0.3-1.2 [facility] Comment on above: Performed By: #### L IVER #### [address] [address] Protein [Mass/Vol] 6.8 g/dL Normal 6.5-8.1 [facility] Comment on above: Performed By: #### L LAZARA #### [address] [address] Hgb A1con 09-23-2021 Glucose [Mass/Vol] 94 mg/dL Normal 68-114 [facility] Comment on above: Result Comment: Math ematical Calc approx. The mean gluc equivalency of A1c Performed By: #### H BA1C #### [address] [address] Hgb A1c 4.9 % A1c Normal 4.0-5.6 [facility] Comment on above: Result Comment: Refe rence Range: 4.0 - 5.6 % Normal 5.7 - 6.4 % Pre-Diabetes > 6.5 % Diabetes Performed By: #### H BA1C #### [address] [address] Insulinon 09-23-2021 Insulin Lvl 7.05 mcIU/mL Normal 1.90-23.00 [facility] Comment on above: Performed By: #### H BA1C #### [address] [address] Lipid Panelon 09-23-2021 Cholesterol in LDL [Mass/Vol] 136 mg/dL High 0-99 [facility] Comment on above: Result Comment: The equation being used in this calculation is LDL = (Chol - HDL) - (Trig / 5) The optimal value of LDL for individual patients may vary. The patient's history of Artherosclerosis and other cardiac risk factors should be considered. Performed By: #### H BA1C #### [address] [address] Cardiac Risk 2.8 Normal [facility] Comment on above: Result Comment: Men Women 1/2 Average 3.43 3.27 Average 4.97 4.44 2x Average 9.55 7.05 3x Average 23.99 11.04 Performed By: #### H BA1C #### [address] [place] [address] Cholesterol [Mass/Vol] 233 mg/dL High 25-199 [facility] Comment on above: Result Comment: 0 - 17 years of age: Desirable 0-170 Borderline High 170-199 High >=200 18 years and older: Acceptable <200 Borderline High 200-239 High >=240 Performed By: #### H BA1C #### [address] [address] Cholesterol in HDL [Mass/Vol] 83.6 mg/dL High 40.0-60.0 [facility] Comment on above: Performed By: #### H BA1C #### [address] [address] Cholesterol in VLDL [Mass/Vol] 13 mg/dL Normal 8-39 [facility] Comment on above: Performed By: #### H BA1C #### [address] [address] Triglyceride [Mass/Vol] 66 mg/dL Normal [facility] Comment on above: Result Comment: 0 - 17 years of age: Trig 90 - 129 Borderline High Trig => 130 High 18 years and older: Trig 150 - 199 Borderline High Trig 200 - 499 High Trig =>500 Very High Performed By: #### H BA1C #### [address] [address] TSHon 09-23-2021 TSH Qn 2.99 m[IU]/L Normal 0.45-5.33 [facility] Comment on above: Result Comment: Refe rence Ranges for individuals from to 18 years of age were obtained from The Regina Starks Handbook (20 ed) published by [facility]. Reference Ranges for Females: Females, 1st Trimester 0.05 ? 3.7 uIU/mL Females, 2nd Trimester 0.31 ? 4.35 uIU/mL Females, 3rd Trimester 0.41 ? 5.18 uIU/mL Performed By: #### L LAZARA #### [address] [address] Urgent Care Office/Clinic No jimmy 03-12-2021 Urgent [...] qualifying data available (MRI) Electronically signed by Quoc PEARLKezia Kristen 03/12/21 15:55 EDT Normal [facility] Urgent Care Office/Clinic Araceli marquez 02-22-2021 Urgent Care Office/Clinic Note Chief Complaint [...] g, 0 Refill(s), 03/08/21 17:05:00 EDT, Pharmacy: [facility]/pharmacy #[id number] Medical Decision Making Patient is well and [...] ANDERSON Leyla Moreno 02/22/21 17:35 EDT Normal [facility] Vital Signs Date Time Vital Sign Value Performing Clinician Facility 07-31-2024 15:12-0500 Body mass index (BMI) [Ratio] 43.26 kg/m2 Zoe HADLEY Work Phone: [facility] 07-31-2024 15:12-0500 Body weight 121.56 kg Zoe HADLEY Work Phone: [facility] 07-31-2024 15:12-0500 Diastolic blood pressure 78 mm[Hg] Zoe HADLEY Work Phone: [facility] 07-31-2024 15:12-0500 Systolic blood pressure 122 mm[Hg] Zoe HADLEY Work Phone: [facility] 07-30-2024 15:04-0500 Body mass index (BMI) [Ratio] 43.42 kg/m2 Jayme Schmidt MD Work Phone: [facility] 07-30-2024 15:04-0500 Body temperature 97 [degF] Jayme Schmidt MD Work Phone: [facility] 07-30-2024 15:04-0500 Body weight 122.02 kg Jayme Schmidt MD Work Phone: [facility] 07-30-2024 15:04-0500 Diastolic blood pressure 78 mm[Hg] Jayme Schmidt MD Work Phone: [facility] 07-30-2024 15:04-0500 Heart rate 102 /min Jayme Schmidt MD Work Phone: [facility] 07-30-2024 15:04-0500 SaO2% (BldA) [Mass fraction] 97 % Jayme Schmidt MD Work Phone: [facility] 07-30-2024 15:04-0500 Systolic blood pressure 120 mm[Hg] Jayme Schmidt MD Work Phone: [facility] 07-15-2024 14:13-0500 Body temperature 97.7 [degF] Chair [place] Work Phone: [facility] 07-15-2024 14:13-0500 Diastolic blood pressure 81 mm[Hg] Chair [place] Work Phone: [facility] 07-15-2024 14:13-0500 Heart rate 83 /min Chair Raissa Work Phone: [facility] 07-15-2024 14:13-0500 Respiratory rate 14 /min Chair Raissa Work Phone: [facility] 07-15-2024 14:13-0500 SaO2% (BldA) [Mass fraction] 95 % Chair [place] Work Phone: [facility] 07-15-2024 14:13-0500 Systolic blood pressure 120 mm[Hg] Chair [place] Work Phone: [facility] 07-08-2024 14:46-0500 Body mass index (BMI) [Ratio] 43.97 kg/m2 Zoe HADLEY Work Phone: [facility] 07-08-2024 14:46-0500 Body weight 123.56 kg Zoe HADLEY Work Phone: [facility] 07-08-2024 14:46-0500 Diastolic blood pressure 84 mm[Hg] Zoe HADLEY Work Phone: [facility] 07-08-2024 14:46-0500 Systolic blood pressure 126 mm[Hg] Zoe HADLEY Work Phone: [facility] 06-24-2024 11:02-0500 Body height 167.6 cm Jayme Schmidt MD Work Phone: [facility] 06-24-2024 11:02-0500 Body mass index (BMI) [Ratio] 44.22 kg/m2 Jayme Schmidt MD Work Phone: [facility] 06-24-2024 11:02-0500 Body temperature 97.11 [degF] Jayme Schmidt MD Work Phone: [facility] 06-24-2024 11:02-0500 Body weight 124.29 kg Jayme Schmidt MD Work Phone: [facility] 06-24-2024 11:02-0500 Diastolic blood pressure 66 mm[Hg] Jayme Schmidt MD Work Phone: [facility] 06-24-2024 11:02-0500 Heart rate 124 /min Jayme Schmidt MD Work Phone: [facility] 06-24-2024 11:02-0500 Respiratory rate 20 /min Jayme Schmidt MD Work Phone: [facility] 06-24-2024 11:02-0500 SaO2% (BldA) [Mass fraction] 96 % Jayme Schmidt MD Work Phone: [facility] 06-24-2024 11:02-0500 Systolic blood pressure 122 mm[Hg] Jayme Schmidt MD Work Phone: [facility] 06-10-2024 14:30-0500 Body mass index (BMI) [Ratio] 44.03 kg/m2 Casey Butch DO Work Phone: [facility] 06-10-2024 14:30-0500 Body weight 123.74 kg Casey Butch DO Work Phone: [facility] 06-10-2024 14:30-0500 Diastolic blood pressure 70 mm[Hg] Casey Butch DO Work Phone: [facility] 06-10-2024 14:30-0500 Systolic blood pressure 120 mm[Hg] Casey Butch DO Work Phone: [facility] 06-05-2024 12:50-0500 Body height 167.6 cm Jonathan Muller MD Work Phone: [facility] 06-05-2024 12:50-0500 Body mass index (BMI) [Ratio] 44.55 kg/m2 Jonathan Muller MD Work Phone: [facility] 06-05-2024 12:50-0500 Body weight 125.19 kg Jonathan Muller MD Work Phone: [facility] 06-05-2024 12:50-0500 Diastolic blood pressure 84 mm[Hg] Jonathan Muller MD Work Phone: [facility] 06-05-2024 12:50-0500 Systolic blood pressure 150 mm[Hg] Jonathan Muller MD Work Phone: [facility] 03-18-2024 15:29-0400 Body height 167.6 cm Zoe Noriega PA Work Phone: [facility] 03-18-2024 15:29-0400 Body mass index (BMI) [Ratio] 44.61 kg/m2 Zoe Leann PA Work Phone: [facility] 03-18-2024 15:29-0400 Body weight 125.37 kg Zoe Leann PA Work Phone: [facility] 03-18-2024 15:29-0400 Diastolic blood pressure 70 mm[Hg] Zoe Alice PA Work Phone: [facility] 03-18-2024 15:29-0400 Systolic blood pressure 120 mm[Hg] Zoe Leann PA Work Phone: [facility] 03-18-2024 09:05-0400 Body height 167.6 cm Jayme Schmidt MD Work Phone: [facility] 03-18-2024 09:05-0400 Body mass index (BMI) [Ratio] 44.55 kg/m2 Jayme Schmidt MD Work Phone: [facility] 03-18-2024 09:05-0400 Body temperature 97.3 [degF] Jayme Schmidt MD Work Phone: [facility] 03-18-2024 09:05-0400 Body weight 125.19 kg Jayme Schmidt MD Work Phone: [facility] 03-18-2024 09:05-0400 Diastolic blood pressure 84 mm[Hg] Jayme Schmidt MD Work Phone: [facility] 03-18-2024 09:05-0400 Heart rate 124 /min Jayme Schmidt MD Work Phone: [facility] 03-18-2024 09:05-0400 Respiratory rate 20 /min Jayme Schmidt MD Work Phone: [facility] 03-18-2024 09:05-0400 SaO2% (BldA) [Mass fraction] 97 % Jayme Schmidt MD Work Phone: [facility] 03-18-2024 09:05-0400 Systolic blood pressure 128 mm[Hg] Jayme Schmidt MD Work Phone: [facility] 01-17-2024 13:35-0400 Body temperature 98.2 [degF] Chair [place] Work Phone: [facility] 01-17-2024 13:35-0400 Diastolic blood pressure 81 mm[Hg] Chair [place] Work Phone: [facility] 01-17-2024 13:35-0400 Heart rate 84 /min Chair [place] Work Phone: [facility] 01-17-2024 13:35-0400 Respiratory rate 16 /min Chair [place] Work Phone: [facility] 01-17-2024 13:35-0400 SaO2% (BldA) [Mass fraction] 96 % Chair Raissa Work Phone: [facility] 01-17-2024 13:35-0400 Systolic blood pressure 131 mm[Hg] Chair Raissa Work Phone: [facility] 12-29-2023 13:43-0400 Body height 167.6 cm Marielle Gannon [employer] Work Phone: [facility] 12-29-2023 13:43-0400 Body mass index (BMI) [Ratio] 44.27 kg/m2 Marielle Gannon [employer]ER [employer] Work Phone: [facility] 12-29-2023 13:43-0400 Body weight 124.4 kg Marielle Gannon [employer]OL [employer].HAND ETCHER HELPER Work Phone: [facility] 12-29-2023 13:43-0400 Diastolic blood pressure 99 mm[Hg] Marielle Gannon [employer] TOOL [employer].HAND ETCHER HELPER Work Phone: [facility] 12-29-2023 13:43-0400 Heart rate 91 /min Marielle Gannon [employer]OL [employer].HAND ETCHER HELPER Work Phone: [facility] 12-29-2023 13:43-0400 Respiratory rate 17 /min Marielle Gannon [employer]IC [employer]OL [employer].HAND ETCHER HELPER Work Phone: [facility] 12-29-2023 13:43-0400 SaO2% (BldA) [Mass fraction] 95 % Marielle Gannon [employer]OL [employer].HAND ETCHER HELPER Work Phone: [facility] 12-29-2023 13:43-0400 Systolic blood pressure 141 mm[Hg] Marielle Gannon [employer]IC TOOL [employer].HAND ETCHER HELPER Work Phone: [facility] 12-19-2023 13:32-0400 Body height 167.64 cm MD Jayme Schmidt Work Phone: [facility] 12-19-2023 13:32-0400 Body mass index (BMI) [Ratio] 43.5 kg/m2 MD Jayme Schmidt Work Phone: [facility] 12-19-2023 13:32-0400 Body temperature 97.8 [degF] MD Jayme Schmidt Work Phone: [facility] 12-19-2023 13:32-0400 Body weight 122.46 kg MD Jayme Schmidt Work Phone: [facility] 12-19-2023 13:32-0400 Diastolic blood pressure 90 mm[Hg] MD Jayme Schmidt Work Phone: [facility] 12-19-2023 13:32-0400 Heart rate 108 /min MD Jayme Schmidt Work Phone: [facility] 12-19-2023 13:32-0400 Respiratory rate 18 /min MD Jayme Schmidt Work Phone: [facility] 12-19-2023 13:32-0400 SaO2% (BldA) [Mass fraction] 97 % MD Jayme Schmidt Work Phone: [facility] 12-19-2023 13:32-0400 Systolic blood pressure 142 mm[Hg] MD Jayme Schmidt Work Phone: [facility] 09-25-2023 16:39-0500 Body height 167.64 cm MD Jayme Schmidt Work Phone: [facility] 09-25-2023 16:39-0500 Body mass index (BMI) [Ratio] 41.9 kg/m2 MD Jayme Schmidt Work Phone: [facility] 09-25-2023 16:39-0500 Body temperature 98.3 [degF] MD Jayme Schmidt Work Phone: [facility] 09-25-2023 16:39-0500 Body weight 117.93 kg MD Jayme Schmidt Work Phone: [facility] 09-25-2023 16:39-0500 Heart rate 74 /min MD Jayme Schmidt Work Phone: [facility] 09-25-2023 16:39-0500 SaO2% (BldA) [Mass fraction] 99 % MD Jayme Schmidt Work Phone: [facility] 08-29-2023 08:40-0500 Body height 167.6 cm Yoly Chizmadia [employer]KER.HAND ETCHER HELPER Work Phone: [facility] 08-29-2023 08:40-0500 Body weight 121.3 kg Yoly Chizmadia [employer]IC [employer]OL MAKER.HAND ETCHER HELPER Work Phone: [facility] 08-29-2023 08:40-0500 Diastolic blood pressure 80 mm[Hg] Yoly Chizmadia [employer]IC [employer]OL MAKER.HAND ETCHER HELPER Work Phone: [facility] 08-29-2023 08:40-0500 Heart rate 77 /min Yoly Chizmadia [employer]IC [employer]OL MAKER.HAND ETCHER HELPER Work Phone: [facility] 08-29-2023 08:40-0500 Systolic blood pressure 134 mm[Hg] Yoly Chizmadia [employer]IC TOOL MAKER.HAND ETCHER HELPER Work Phone: [facility] 04-08-2023 12:40-0400 Body height 167.64 cm Erica Perry Other [employer] Other 04-08-2023 12:40-0400 Body mass index (BMI) [Ratio] 40.51 kg/m2 Erica Perry Other [employer] Other 04-08-2023 12:40-0400 Body temperature 98.2 [degF] Erica Perry Other [employer] Other 04-08-2023 12:40-0400 Body weight 113.85 kg Erica Perry Other [employer] Other 04-08-2023 12:40-0400 Diastolic blood pressure 72 mm[Hg] Erica Vicky Other [employer] Other 04-08-2023 12:40-0400 Respiratory rate 18 /min Erica Vicky Other [employer] Other 04-08-2023 12:40-0400 SaO2% (BldA) [Mass fraction] 96 % Erica Vicky Other [employer] Other 04-08-2023 12:40-0400 Systolic blood pressure 116 mm[Hg] Erica Vicky Other [employer] Other 01-28-2023 13:30-0400 Body height 167.64 cm Erica Vicky Other [employer] Other 01-28-2023 13:30-0400 Body mass index (BMI) [Ratio] 45.19 kg/m2 Erica Vicky Other [employer] Other 01-28-2023 13:30-0400 Body temperature 98.4 [degF] Erica Vicky Other [employer] Other 01-28-2023 13:30-0400 Body weight 127.01 kg Erica Vicky Other [employer] Other 01-28-2023 13:30-0400 Diastolic blood pressure 81 mm[Hg] Erica Vicky Other [employer] Other 01-28-2023 13:30-0400 Respiratory rate 18 /min Erica Vicky Other [employer] Other 01-28-2023 13:30-0400 SaO2% (BldA) [Mass fraction] 99 % Erica Vicky Other [employer] Other 01-28-2023 13:30-0400 Systolic blood pressure 147 mm[Hg] Erica Perry Other [employer] Other 01-11-2023 13:29-0400 Body temperature 98.2 [degF] Chair [employer] Work Phone: [facility] 01-11-2023 13:29-0400 Diastolic blood pressure 78 mm[Hg] Chair Raissa Work Phone: [facility] 01-11-2023 13:29-0400 Heart rate 79 /min Chair [place] Work Phone: [facility] 01-11-2023 13:29-0400 Respiratory rate 16 /min Chair [employer] Work Phone: [facility] 01-11-2023 13:29-0400 SaO2% (BldA) [Mass fraction] 97 % Chair [place] Work Phone: [facility] 01-11-2023 13:29-0400 Systolic blood pressure 120 mm[Hg] Chair [place] Work Phone: [facility] 11-20-2022 15:10-0400 Body height 167.64 cm Carol nAn Lees Other [employer] Other 11-20-2022 15:10-0400 Body mass index (BMI) [Ratio] 41.96 kg/m2 Carol Ann Lees Other [employer] Other 11-20-2022 15:10-0400 Body temperature 99.4 [degF] Carol Ann Lees Other [employer] Other 11-20-2022 15:10-0400 Body weight 117.94 kg Carol Ann Lees Other [employer] Other 11-20-2022 15:10-0400 Diastolic blood pressure 72 mm[Hg] Carol Ann Lees Other [employer] Other 11-20-2022 15:10-0400 Respiratory rate 16 /min Carol Ann Nabeel Other [employer] Other 11-20-2022 15:10-0400 SaO2% (BldA) [Mass fraction] 99 % Carol Ann Nabeel Other [employer] Other 11-20-2022 15:10-0400 Systolic blood pressure 135 mm[Hg] Carol Ann Lees Other [employer] Other 09-02-2022 14:31-0500 Body height 167.6 cm Yoly Chizmadia [employer]IC [employer]OL MAKER.HAND ETCHER HELPER Work Phone: [facility] 09-02-2022 14:31-0500 Body weight 99.79 kg Yoly Chizmadia [employer]IC TOOL MAKER.HAND ETCHER HELPER Work Phone: [facility] 09-02-2022 14:31-0500 Diastolic blood pressure 87 mm[Hg] Yoly Chizmadia PLASTIC TOOL MAKER.HAND ETCHER HELPER Work Phone: [facility] 09-02-2022 14:31-0500 Heart rate 91 /min Yoly Chizmadia PLASTIC TOOL MAKER.HAND ETCHER HELPER Work Phone: [facility] 09-02-2022 14:31-0500 Systolic blood pressure 135 mm[Hg] Yoly Chizmadia PLASTIC TOOL MAKER.HAND ETCHER HELPER Work Phone: [facility] 07-27-2022 13:55-0500 Body height 167.64 cm Erica Perry Other [employer] Other 07-27-2022 13:55-0500 Body mass index (BMI) [Ratio] 40.67 kg/m2 Erica Perry Other [employer] Other 07-27-2022 13:55-0500 Body temperature 98.4 [degF] Erica Perry Other [employer] Other 07-27-2022 13:55-0500 Body weight 114.31 kg Erica Perry Other [employer] Other 07-27-2022 13:55-0500 Respiratory rate 18 /min Erica Perry Other [employer] Other 07-27-2022 13:55-0500 SaO2% (BldA) [Mass fraction] 97 % Erica Perry Other [employer] Other 07-13-2022 13:18-0500 Diastolic blood pressure 54 mm[Hg] Chair [place] Work Phone: [facility] 07-13-2022 13:18-0500 Heart rate 90 /min Chair [place] Work Phone: [facility] 07-13-2022 13:18-0500 Respiratory rate 18 /min Chair [place] Work Phone: [facility] 07-13-2022 13:18-0500 SaO2% (BldA) [Mass fraction] 96 % Chair [place] Work Phone: [facility] 07-13-2022 13:18-0500 Systolic blood pressure 118 mm[Hg] Chair [place] Work Phone: [facility] 07-13-2022 12:15-0500 Body temperature 97.81 [degF] Chair [place] Work Phone: [facility] 05-24-2022 14:18-0400 Blood Pressure Location Yusuf NILL [facility] [place] 05-24-2022 14:18-0400 Diastolic blood pressure 80 mm[Hg] Yusuf CASTRO [facility] [place] 05-24-2022 14:18-0400 Heart rate 70 /min Yusuf CASTRO [facility] [place] 05-24-2022 14:18-0400 Respiratory rate 16 /min Yusuf CASTRO [facility] [place] 05-24-2022 14:18-0400 Systolic blood pressure 118 mm[Hg] Yusuf CASTRO [facility] [place] Encounters Encounter Date Encounter Type Care Provider Facility Start: 07-31-2024 End: 07-31-2024 Patient encounter procedure Zoe HADLEY Work Phone: [facility] Comment on above: Weight gain; Encounter for weight management Start: 07-31-2024 End: 07-31-2024 ambulatory ZOE NORIEGA Not Available Start: 07-31-2024 End: 07-31-2024 Bamboo flowsheet Zoe HADLEY Work Phone: [facility] Start: 07-31-2024 End: 07-31-2024 Bamboo flowsheet Zoe HADLEY Work Phone: [facility] Start: 07-30-2024 End: 07-30-2024 Office outpatient visit 25 minutes Jayme Schmidt MD Work Phone: [facility] Comment on above: Bipolar 1 disorder, depressed, mild (CMS/HCC) (Primary Dx); JEFF (generalized anxiety disorder) (CMS/HCC); Multiple sclerosis (CMS/HCC); Tinea pedis, unspecified laterality; Class 3 severe obesity due to excess calories without serious comorbidity with body mass index (BMI) of 40.0 to 44.9 in adult (CMS/HCC) Start: 07-30-2024 End: 07-30-2024 ambulatory JAYME SCHMIDT Not Available Start: 07-30-2024 End: 07-30-2024 Bamboo flowsheet Jayme Schmidt MD Work Phone: [facility] Start: 07-30-2024 End: 07-30-2024 Bamboo flowsheet Jayme Schmidt MD Work Phone: [facility] Start: 07-29-2024 End: 07-30-2024 ambulatory Autumn Barclay MD Work Phone: [facility] Comment on above: Foot and physical th erapy Start: 07-26-2024 End: 07-26-2024 ambulatory Autumn Barclay MD Work Phone: [facility] Comment on above: Relapsing remitting multiple sclerosis (HCC) (Primary Dx) Start: 07-26-2024 End: 07-26-2024 Telemedicine consultation with patient Autumn Barclay MD Work Phone: [facility] Start: 07-18-2024 End: 07-18-2024 ambulatory JAYME SCHMIDT Facility:[facility] Start: 07-18-2024 End: 07-18-2024 Subsequent hospital visit by physician Anjana Villaseñor (I-Stat/3t) Work Phone: Radiology Comment on above: Multiple sclerosis ( HCC) [G35] Start: 07-15-2024 End: 07-15-2024 Clinisync Result Encounter Generic External Data Provider [facility] External Department Unsolicited Start: 07-15-2024 End: 07-15-2024 Clinisync Result Encounter Generic External Data Provider [facility] External Department Unsolicited Start: 07-15-2024 End: 07-15-2024 ambulatory Chair 5 [place] Work Phone: Hematology/Oncology Comment on above: Multiple sclerosis ( HCC) (Primary Dx) Start: 07-08-2024 End: 07-08-2024 Office outpatient visit 15 minutes Zoe HADLEY Work Phone: [facility] Comment on above: Encounter for weight management Start: 07-08-2024 End: 07-08-2024 ambulatory ZOE NORIEGA Not Available Start: 07-08-2024 End: 07-08-2024 Bamboo flowsheet Zoe HADLEY Work Phone: [facility] Start: 07-08-2024 End: 07-08-2024 Bamboo flowsheet Zoe HADLEY Work Phone: [facility] Start: 06-24-2024 End: 06-24-2024 Bamboo flowsheet Jayme Schmidt MD Work Phone: [facility] Start: 06-24-2024 End: 06-24-2024 Bamboo flowsheet Jayme Schmidt MD Work Phone: [facility] Start: 06-24-2024 End: 06-24-2024 Office outpatient visit 25 minutes Jayme Schmidt MD Work Phone: [facility] Comment on above: Bipolar 1 disorder, depressed, mild (CMS/HCC) (Primary Dx); JEFF (generalized anxiety disorder) (CMS/HCC); Multiple sclerosis (CMS/HCC); Irritable bowel syndrome with diarrhea; Class 3 severe obesity due to excess calories without serious comorbidity with body mass index (BMI) of 40.0 to 44.9 in adult (CMS/HCC) Start: 06-24-2024 End: 06-24-2024 ambulatory JAYME SCHMIDT Not Available Start: 06-10-2024 End: 06-10-2024 Bamboo flowsheet Casey Butch DO Work Phone: [facility] Start: 06-10-2024 End: 06-10-2024 Bamboo flowsheet Casey Butch DO Work Phone: [facility] Start: 06-10-2024 End: 06-10-2024 Office outpatient visit 15 minutes Casey Butch DO Work Phone: [facility] Comment on above: PCOS (polycystic ova radha syndrome) Start: 06-10-2024 End: 06-10-2024 ambulatory CASEY BUTCH Not Available Start: 06-05-2024 End: 06-05-2024 Bamboo flowsheet Jonathan Muller MD Work Phone: [facility] Start: 06-05-2024 End: 06-05-2024 Bamboo flowsheet Jonathan Muller MD Work Phone: [facility] Start: 06-05-2024 End: 06-05-2024 Office outpatient visit 25 minutes Jonathan Muller MD Work Phone: [facility] Comment on above: Chronic mastoiditis, left (Primary Dx); Other specified hearing loss of left ear, unspecified hearing status on contralateral side; Bilateral impacted cerumen Start: 06-05-2024 End: 06-05-2024 ambulatory JONATHAN MULLER Not Available Start: 05-28-2024 End: 05-28-2024 Refill Jayme Schmidt MD Work Phone: [facility] Comment on above: Multiple sclerosis ( CMS/HCC) Start: 05-08-2024 End: 05-09-2024 ambulatory Yoly Chizmadia PLASTIC TOOL MAKER.HAND ETCHER HELPER Work Phone: [facility] Comment on above: Doctors note Start: 04-25-2024 End: 04-25-2024 Telephone encounter Autumn Barclay MD Work Phone: [facility] Comment on above: Appointment (m for patient to call so we can get er scheduled fora follow up in jul with dr barclay) Start: 04-24-2024 End: 04-24-2024 ambulatory Autumn Barclay MD Work Phone: Neurology Comment on above: Chronic fatigue synd kathia (Primary Dx); Multiple sclerosis (HCC) Start: 04-24-2024 End: 04-24-2024 Telemedicine consultation with patient Autumn Barclay MD Work Phone: Neurology Start: 04-18-2024 End: 04-18-2024 Refill Jayme Schmidt MD Work Phone: [facility] Comment on above: Multiple sclerosis ( CMS/HCC) Start: 03-25-2024 End: 03-26-2024 ambulatory Yoly Chizmadia PLASTIC TOOL MAKER.HAND ETCHER HELPER Work Phone: [facility] Comment on above: Doctors note for wor k Start: 03-18-2024 End: 03-18-2024 ambulatory ZOE NORIEGA Not Available Start: 03-18-2024 End: 03-18-2024 Office outpatient visit 15 minutes Zoe HADLEY Work Phone: [facility] Comment on above: Well woman exam with routine gynecological exam; PCOS (polycystic ovarian syndrome) Start: 03-18-2024 End: 03-18-2024 Patient encounter procedure Zoe HADLEY Work Phone: [facility] Work Phone: Start: 03-18-2024 End: 03-18-2024 Bamboo flowsheet Jayme Schmidt MD Work Phone: [facility] Start: 03-18-2024 End: 03-21-2024 Bamboo flowsheet Jayme Schmidt MD Work Phone: [facility] Start: 03-18-2024 End: 03-21-2024 Clinisync Result Encounter Zoe HADLEY Work Phone: [facility] External Department Unsolicited Start: 03-18-2024 End: 03-18-2024 Office outpatient visit 25 minutes Jayme Schmidt MD Work Phone: [facility] Comment on above: Bipolar 1 disorder, depressed, mild (CMS/HCC) (Primary Dx); JEFF (generalized anxiety disorder) (CMS/HCC); Migraine without aura and without status migrainosus, not intractable (CMS/HCC); Multiple sclerosis (CMS/HCC); Irritable bowel syndrome with both constipation and diarrhea Start: 03-18-2024 End: 03-18-2024 ambulatory JAYME SCHMIDT Not Available Start: 03-12-2024 End: 03-12-2024 Refill Jayme Schmidt MD Work Phone: [facility] Comment on above: Multiple sclerosis ( CMS/HCC) Start: 02-19-2024 End: 02-19-2024 Telemedicine consultation with patient Marielle Jagdeep ONEIDA.HAND ETCHER HELPER Work Phone: [facility] Start: 02-19-2024 End: 02-19-2024 ambulatory Marielle Gannon PLASTIC TOOL MAKER.HAND ETCHER HELPER Work Phone: [facility] Comment on above: Radiculopathy, lumba r region (Primary Dx); Lumbar spondylosis Start: 01-17-2024 End: 01-17-2024 ambulatory Chair Gordo Munroe Work Phone: Hematology/Oncology Comment on above: Multiple sclerosis ( HCC) (Primary Dx) Start: 12-29-2023 End: 12-29-2023 ambulatory MARIELLE GANNON Facility:[facility] Start: 12-29-2023 End: 12-29-2023 Patient encounter procedure Marielle Jagdeep PLASTIC TOOL MAKER.HAND ETCHER HELPER Work Phone: [facility] Comment on above: Radiculopathy, lumba r region (Primary Dx); Spinal stenosis, lumbar region, without neurogenic claudication; Lumbar spondylosis; Multiple sclerosis (HCC) Start: 12-19-2023 End: 12-19-2023 ambulatory Shelbie Allred Facility:[facility] Start: 12-19-2023 End: 12-19-2023 ambulatory MD Jayme Schmidt Work Phone: [facility] Work Phone: Start: 12-19-2023 End: 12-19-2023 Patient encounter procedure MD Jayme Schmidt Work Phone: [facility] [place] Work Phone: Start: 11-14-2023 End: 11-14-2023 ambulatory JAYME SCHMIDT Facility:[facility] Start: 11-14-2023 End: 11-14-2023 Subsequent hospital visit by physician Anjana [facility] Lalo (I-Stat/1.5t) Radiology Comment on above: Multiple sclerosis ( HCC) [G35] Spinal stenosis of l umbar region without neurogenic claudication [M48.061] Start: 10-31-2023 ambulatory Yoly allen PLASTIC TOOL MAKER.HAND ETCHER HELPER Work Phone: [facility] Start: 10-31-2023 Patient encounter procedure Yoly Miller PLASTIC TOOL MAKER.HAND ETCHER HELPER Work Phone: [facility] Comment on above: Sciatica Referral Start: 10-29-2023 ambulatory Yoly Kimberly tiffany PLASTIC TOOL MAKER.HAND ETCHER HELPER Work Phone: [facility] Comment on above: Sciatica Start: 09-25-2023 End: 09-25-2023 Patient encounter procedure MD Jayme Schmidt Work Phone: [facility] [place] Work Phone: Start: 09-18-2023 End: 09-18-2023 ambulatory JAYME SCHMIDT Not Available Start: 08-29-2023 End: 08-29-2023 ambulatory JAYME SCHMIDT Facility:[facility] Start: 08-29-2023 End: 08-29-2023 Patient encounter procedure Yoly Harristiffany PLASTIC TOOL MAKER.HAND ETCHER HELPER Work Phone: [facility] Comment on above: Spinal stenosis of l umbar region without neurogenic claudication (Primary Dx); Multiple sclerosis (HCC) Start: 04-08-2023 End: 04-08-2023 ambulatory Erica Vicky Other [employer] Other Start: 04-08-2023 Office outpatient vi sit 15 minutes Erica Vicky [facility] [place] Start: 01-28-2023 End: 01-28-2023 ambulatory Erica Vicky Other [employer] Other Start: 01-28-2023 Office outpatient vi sit 15 minutes Erica Vicky [facility] Start: 01-23-2023 End: 01-23-2023 Subsequent hospital visit by physician Anjana Villaseñor (I-Stat/3t) Work Phone: Radiology Comment on above: Multiple sclerosis ( HCC) [G35] Start: 01-11-2023 End: 01-11-2023 ambulatory Chair 2 [place] Work Phone: Hematology/Oncology Comment on above: Multiple sclerosis ( HCC) (Primary Dx) Start: 11-20-2022 End: 11-20-2022 ambulatory Carol Ann Lees Other [employer] Other Start: 11-20-2022 Office outpatient vi sit 25 minutes Carol Ann Lees [facility] Start: 09-27-2022 Refill Yoly Thomaszma tiffany PLASTIC TOOL MAKER.HAND ETCHER HELPER Work Phone: [facility] Comment on above: Refill Request Start: 09-12-2022 Chart abstracting Sammie ryan Research Coordinator [facility] Start: 09-02-2022 End: 09-02-2022 Patient encounter procedure Yoly Harrisdia PLASTIC TOOL MAKER.HAND ETCHER HELPER Work Phone: [facility] Comment on above: Multiple sclerosis ( HCC) (Primary Dx); Encounter for long-term (current) use of medications Start: 07-27-2022 End: 07-27-2022 ambulatory Erica Perry Other [employer] Other Start: 07-27-2022 Office outpatient vi sit 25 minutes Erica Perry [facility] Start: 07-14-2022 ambulatory Yoly Thomaszma tiffany PLASTIC TOOL MAKER.HAND ETCHER HELPER Work Phone: [facility] Comment on above: Question regarding C D19 ABSOLUTE COUNT Start: 07-13-2022 End: 07-13-2022 ambulatory Chair 5 Ra[place] Work Phone: Hematology/Oncology Comment on above: Multiple sclerosis ( HCC) (Primary Dx) Start: 07-05-2022 End: 07-06-2022 [facility]ulatory [facility] Start: 07-05-2022 End: 07-05-2022 Patient encounter procedure Yusuf CASTRO General Surgery Matthew/Agustina [place] Start: 06-22-2022 Encounter for preprocedural laboratory examination DR YUSUF CASTRO [facility] Start: 06-22-2022 End: 06-23-[address] YUSUF CASTRO Facility: Start: 06-18-2022 End: 06-19-[address] YUSUF CASTRO Facility:[facility] Start: 06-18-2022 End: 06-19-2022 Encounter for preprocedural laboratory examination DR YUSUF CASTRO Facility:[facility] Start: 05-24-2022 End: 05-25-2022 ambulatory JAYME SCHMIDT Facility:[facility] Start: 05-24-2022 End: 05-24-2022 Patient encounter procedure Yusuf CASTRO General Surgery Nill/Said [place] Start: 05-09-2022 Encounter for genera l adult medical examination without abnormal findings DR JAYME SCHMIDT [facility] Start: 05-06-2022 End: 05-07-[address] AJYME SCHMIDT Facility:[facility] Start: 05-06-2022 End: 05-07-2022 Encounter for general adult medical examination without abnormal findings DR JAYME SCHMIDT Facility:[facility] Start: 04-20-2022 ambulatory Yusuf CASTRO Facility :[facility] Start: 03-11-2022 ambulatory Clau Castrejon ty:Alba Start: 11-14-2021 End: 11-14-2021 Emergency department patient visit JAYME SCHMIDT Facility:[facility] Start: 11-09-2021 Refill Autumn Barclay MD Work Phone: [facility] Comment on above: Urine Bacteria Start: 2021 End: 2021 Subsequent hospital visit by physician Ajnana Villaseñor (I-Stat/3t) Work Phone: Radiology Comment on above: Multiple sclerosis ( HCC) [G35] Start: 11-01-2021 ambulatory Yoly allen APRN.HAND ETCHER HELPER Work Phone: [facility] Comment on above: Reply to bladder iss ues Start: 09-23-2021 End: 09-24-2021 ambulatory JAYME SCHMIDT Facility:[facility] Procedures Date Procedure Procedure Detail Performing Clinician Start: 07-18-2024 Mri spinal canal cervical w/o & w/contr matrl Autumn Barclay MD Work Phone: Start: 07-15-2024 [facility] CBC W AUTO DIFF BLD Generic External Data Provider Start: 07-15-2024 Blood count complete auto&auto difrntl wbc Yoly Harrisdia PLASTIC TOOL MAKER.HAND ETCHER HELPER Work Phone: Start: 03-18-2024 IGP,APTIMA HPV,AGE GDLN Generic External Data Provider Start: 01-17-2024 Blood count complete auto&auto difrntl wbc Yoly Harrisdia PLASTIC TOOL MAKER.HAND ETCHER HELPER Work Phone: Start: 12-19-2023 Plain chest X-ray MD Jayme Schmidt Work Phone: Start: 11-14-2023 Mri brain brain stem w/o w/contrast material Yoly Harrisdia PLASTIC TOOL MAKER.HAND ETCHER HELPER Work Phone: Start: 01-23-2023 BRAIN & CERVICAL SPINE MRI DISCRETE DATA [facility] Provider Start: 01-23-2023 Mri brain brain stem w/o w/contrast material Yoly Harrisdia PLASTIC TOOL MAKER.HAND ETCHER HELPER Work Phone: Start: 06-22-2022 Colonoscopy Yusuf CASTRO Start: 06-22-2022 Esophagogastroduodenoscopy Yusuf CASTRO Start: 2021 BRAIN & CERVICAL SPINE MRI DISCRETE DATA [facility] Provider Start: 2021 Mri brain brain stem w/o w/contrast material Yoly Chizmadia PLASTIC TOOL MAKER.HAND ETCHER HELPER Work Phone: Start: 08-03-2021 Adult depression screening assessment Yolykadeem Harrismana PLASTIC TOOL MAKER.HAND ETCHER HELPER Work Phone: Cholecystectomy Yusuf CASTRO Esophagogastroduodenoscopy John CASTRO Removal of pilonidal cyst Leonor vamsisoo MATTHEW Tonsillectomy Yusuf CASTRO Plan of Treatment Date Care Activity Detail Author Start: 01-28-2025 End: 01-28-2025 Patient encounter procedure 01/28/2025 1:00 PM EDT Office Visit [facility] [address] [place] [phone] Jayme Schmidt MD [address] [place] [address] [facility] Start: 01-28-2025 End: 01-28-2025 Follow-up encounter 01/28/2025 10:45 AM EDT [facility] [address] [id number] Yoly Miller APRN.HAND ETCHER HELPER [address] [place] [address] Follow Up [facility] Comment on above: Follow Up Start: 01-13-2025 End: 01-13-2025 ambulatory 01/13/2025 9:00 AM EDT [facility] Hematology/Oncology [address] [place] [address] [place], [place] [id number] [facility] Comment on above: [facility] Start: 10-22-2024 End: 10-22-2024 Patient encounter procedure 10/22/2024 2:40 PM EDT Appointment Radiology [address] [place] [id number] MRI BRAIN WO/W IVCON Radiology Comment on above: MRI BRAIN WO/W IVCON Start: 10-22-2024 End: 08-25-2025 MR Brain WO and W contrast IV MRI BRAIN WO/W IVCON Radiology Routine Relapsing remitting multiple sclerosis (HCC) Expected: 10/22/2024, Expires: 08/25/[address] [facility] Work Phone: Comment on above: Expected: 10/22/2024 , Expires: 08/25/2025 Start: 09-11-2024 End: 09-11-2024 Patient encounter procedure 09/11/2024 9:40 AM EST Office Visit [facility] [address] [place] [phone] Jonathan Muller MD [address] [place] [address] [facility] Start: 09-04-2024 End: 09-04-2024 Clinical Support 09/04/2024 8:45 AM EST Clinical Support [facility] [address] [place] [phone] Kristin Johnston, [facility] [address] [facility] [place] [address] [facility] Start: 07-31-2024 End: 07-31-2024 Patient encounter procedure [facility] Comment on above: Arrived Start: 07-30-2024 End: 07-30-2024 Patient encounter procedure [facility] Comment on above: Arrived Start: 07-26-2024 End: 07-26-2024 Follow-up encounter 07/26/2024 2:30 PM EST [facility] [address] [place] [address] Autumn Barclay MD [address] [place] [address] MS follow up pt having numbness and bowel changes [facility] Comment on above: MS follow up pt havi ng numbness and bowel changes Start: 07-18-2024 End: 07-18-2024 Patient encounter procedure 07/18/2024 1:20 PM EST Appointment Radiology [address] [place] [id number] MRI THORACIC SPINE WO/W IVCON Radiology Comment on above: MRI THORACIC SPINE W O/W IVCON Start: 07-18-2024 Subsequent hospital visit by physician 07/18/2024 1:20 PM EST Hospital Encounter Radiology [address] [place] [id number] Multiple sclerosis (HCC) [G35] Radiology Comment on above: Multiple sclerosis ( HCC) [G35] Start: 07-15-2024 End: 10-14-2024 CD19 ABSOLUTE COUNT [facility] Comment on above: Expected: 07/15/2024 , Expires: 10/14/2024 Start: 07-15-2024 End: 10-14-2024 Comprehensive metabolic 2000 panel - Serum or Plasma [facility] Work Phone: Comment on above: Expected: 07/15/2024 , Expires: 10/14/2024 Start: 07-15-2024 End: 10-14-2024 IgG [Mass/volume] in Serum or Plasma [facility] Comment on above: Expected: 07/15/2024 , Expires: 10/14/2024 Start: 07-15-2024 End: 07-15-2024 ambulatory 07/15/2024 9:00 AM EST [facility] Hematology/Oncology [address] [place] [address] [place], [place] [phone] [facility] Comment on above: [facility] Start: 07-08-2024 End: 07-08-2024 Patient encounter procedure [facility] Comment on above: Arrived Start: 06-24-2024 End: 06-24-2024 Patient encounter procedure [facility] Comment on above: Arrived Start: 06-17-2024 End: 06-17-2024 Patient encounter procedure 06/17/2024 8:30 AM EST Office Visit [facility] [address] [place] [address] Jayme Schmidt MD [address] [place] [address] [facility] Start: 06-10-2024 End: 06-10-2024 Patient encounter procedure 06/10/2024 1:50 PM EST Office Visit [facility] [address] [place] [address] Casey Rae DO [address] [place] [address] [facility] Start: 06-05-2024 End: 06-05-2024 Patient encounter procedure 06/05/2024 1:00 PM EST Office Visit [facility] [address] [facility] [address] [place] [address] Jonathan Muller MD [address] [facility] [address] [place] [address] [facility] Start: 05-27-2024 End: 05-27-2024 Follow-up encounter 05/27/2024 4:30 PM EST [facility] [address] [place] [address] Marielle Gannon, ONEIDA.HAND ETCHER HELPER [address] [place] [address] 3 mo virtual follow up [facility] Comment on above: 3 mo virtual follow up Start: 05-13-2024 End: 05-13-2024 Patient encounter procedure 05/13/2024 11:10 AM EDT Office Visit [facility] [address] [place] [address] Casey Rae DO [address] [facility] [place] [address] [facility] Start: 05-01-2024 End: 05-24-2025 MR Cervical spine WO and W contrast IV MRI CERVICAL SPINE WO/W IVCON Radiology Routine Multiple sclerosis (HCC) Expected: 05/01/2024, Expires: 05/24/[address] [facility] Work Phone: Comment on above: Expected: 05/01/2024 , Expires: 05/24/2025 Start: 05-01-2024 End: 05-24-2025 MR Thoracic spine WO and W contrast IV MRI THORACIC SPINE WO/W IVCON Radiology Routine Multiple sclerosis (HCC) Expected: 05/01/2024, Expires: 05/24/2025 [facility] Comment on above: Expected: 05/01/2024 , Expires: 05/24/2025 Start: 04-23-2024 End: 04-23-2024 Patient encounter procedure 04/23/2024 1:50 PM EDT Office Visit [facility] [address] [place] [phone] Casey Rae, DO [address] [facility] [address] [place], [place] [phone] [facility] Start: 04-01-2024 End: 04-01-2024 Professional / ancillary services management 04/01/2024 10:00 AM EDT Ancillary Procedure [facility] [address] [place] [phone] [facility] Start: 03-24-2024 Covid-19 Vaccine ( season) Covid-19 Vaccine ( season) [facility] Start: 03-24-2024 Covid-19 Vaccine ( season) Covid-19 Vaccine ( season) [facility] Start: 03-24-2024 Influenza vaccination C [facility] Start: 03-18-2024 End: 03-18-2025 US for US PELVIS-TRANSVAG IF INDICATED Imaging Routine PCOS (polycystic ovarian syndrome) Expected: 03/18/2024 (Approximate), Expires: 03/18/2025 [facility] Comment on above: Expected: 03/18/2024 (Approximate), Expires: 03/18/2025 Start: 03-18-2024 End: 03-18-2024 Patient encounter procedure [facility] Comment on above: Arrived Start: 02-19-2024 End: 02-19-2024 ambulatory 02/19/2024 3:00 PM EDT [facility] [address] [place] [address] Marielle Gannon, PLASTIC TOOL MAKER.HAND ETCHER HELPER [address] [place] [address] 8 week f/u with provider. [facility] Center Comment on above: 8 week f/u with prov ider. Start: 01-17-2024 End: 04-17-2024 CD19 ABSOLUTE COUNT [facility] Work Phone: Comment on above: Expected: 01/17/2024 , Expires: 04/17/2024 Start: 01-17-2024 End: 01-17-2024 ambulatory 01/17/2024 9:00 AM EDT [facility] Hematology/Oncology [address] [place] [address] [place] [address] [facility] Comment on above: [facility] Start: 12-29-2023 End: 12-29-2023 Patient encounter procedure 12/29/2023 1:50 PM EDT Office Visit [facility] [address] [place] [address] Marielle Gannon, ONE[place].HAND ETCHER HELPER [address] [place] [address] slipped disc [facility] Comment on above: slipped disc Start: 07-24-2023 Behavioral Health Screening Behavioral Health Screening [facility] Start: 07-24-2023 [facility] Start: 03-24-2023 Covid-19 Vaccine ( season) Covid-19 Vaccine ( season) [facility] Start: 03-24-2023 Influenza vaccination [facility] Start: 01-11-2023 End: 03-13-2023 CD19 ABSOLUTE COUNT [facility] Work Phone: Comment on above: Expected: 01/11/2023 , Expires: 03/13/2023 Start: 08-03-2022 Adult depression screening assessment DEPRESSION SCREENING [facility] Start: 07-24-2022 DEPRESSION ASSESSMENT DEPRESSION ASS ESSMENT [facility] Start: 07-13-2022 End: 09-12-2022 CD19 ABSOLUTE COUNT [facility] Work Phone: Comment on above: Expected: 07/13/2022 , Expires: 09/12/2022 Start: 03-24-2022 Influenza vaccination C [facility] Start: 11-01-2021 End: 01-01-2022 Bacteria identified in Urine by Culture URINE CULTURE Microbiology Routine Multiple sclerosis (HCC) Expected: 11/01/2021, Expires: 01/01/[address] [facility] Work Phone: Comment on above: Expected: 11/01/2021 , Expires: 01/01/2022 Start: 11-01-2021 End: 01-01-2022 URINALYSIS, DIPSTICK ONLY URINALYSIS, DIPSTICK ONLY Lab Routine Multiple sclerosis (HCC) Expected: 11/01/2021, Expires: 01/01/[address] [facility] Work Phone: Comment on above: Expected: 11/01/2021 , Expires: 01/01/2022 Start: 07-24-2021 DEPRESSION ASSESSMENT DEPRESSION ASS ESSMENT [facility] Start: 06-19-2021 COVID-19 VACCINE (3 - Booster for Pfizer series) COVID-19 VACCINE (3 - Booster for Pfizer series) [facility] Start: 01-19-2020 Urine microalbumin profile DTaP,Tdap,Td Vaccine (7 - Td or Tdap) [facility] Start: 2018 PAP TESTING PAP TESTING [facility] Start: 2018 Screening for malign ant neoplasm of cervix [facility] Start: 2016 Urine microalbumin profile DTAP,TDAP,TD (1 - Tdap) [facility] Start: 11-06-2015 Anxiety Screening Anxiety Screening [facility] Start: 11-06-2015 CHLAMYDIA SCREENING (18-24) CHLAMYDIA SCREENING (18-24) [facility] Start: 11-06-2015 Depression Screening Depression Scre ening [facility] Start: 11-06-2015 GC (GONORRHEA) SCREE ALEX (18-24) GC (GONORRHEA) SCREENING (18-24) [facility] Start: 2012 HPV Vaccine (1 - 3-d ose series) HPV Vaccine (1 - 3-dose series) [facility] Start: 11-06-2011 PEDS TO ADULT TRANSI TION ANNUAL ASSESSMENT PEDS TO ADULT TRANSITION ANNUAL ASSESSMENT [facility] Start: 2009 PEDS TO ADULT TRANSI TION INITIAL DISCUSSION PEDS TO ADULT TRANSITION INITIAL DISCUSSION [facility] Start: 2008 HPV VACCINE (1 - 2-d ose series) HPV VACCINE (1 - 2-dose series) [facility] Start: 11-06-2007 MENINGOCOCCAL B: Consider based on risk (1 of 2 - Risk Bexsero 2-dose series) MENINGOCOCCAL B: Consider based on risk (1 of 2 - Risk Bexsero 2-dose series) [facility] Start: 2006 HPV VACCINE (1 - 2-d ose series) HPV VACCINE (1 - 2-dose series) [facility] Start: 2002 COVID-19 VACCINE (1) COVID-19 VACCIN E (1) [facility] Start: 1997 HEPATITIS B (1 of 3 - 3-dose series) HEPATITIS B (1 of 3 - 3-dose series) [facility] Cytology Cervical or vaginal smear or scraping study Pap Smear Pathology and Cytology Routine Well woman exam with routine gynecological exam Ordered: 03/18/2024 [facility] Work Phone: Comment on above: Ordered: 03/18/2024 End: 10-02-2023 Mri brain brain stem w/o w/contrast material MRI BRAIN WO/W IVCON Radiology Routine Multiple sclerosis (HCC) Encounter for long-term (current) use of medications 1 Occurrences starting 09/02/2022 until 10/02/[address] [facility] Work Phone: Comment on above: 1 Occurrences starti ng 09/02/2022 until 10/02/2023 End: 10-02-2023 Mri spinal canal cervical w/o & w/contr matrl MRI CERVICAL SPINE WO/W IVCON Radiology Routine Multiple sclerosis (HCC) Encounter for long-term (current) use of medications 1 Occurrences starting 09/02/2022 until 10/02/[address] [facility] Work Phone: Comment on above: 1 Occurrences starti ng 09/02/2022 until 10/02/2023 End: 09-27-2024 Mri spinal canal lumbar w/o contrast material MRI LUMBAR SPINE WO IVCON Radiology Routine Spinal stenosis of lumbar region without neurogenic claudication 1 Occurrences starting 08/29/2023 until 09/27/[address] [facility] Work Phone: Comment on above: 1 Occurrences starti ng 08/29/2023 until 09/27/2024 End: 01-27-2025 XR Lumbar spine 3 Views XR LUMBAR GENERAL 3V AP/LAT/L5-S1 Radiology Routine Radiculopathy, lumbar region Spinal stenosis, lumbar region, without neurogenic claudication Lumbar spondylosis 1 Occurrences starting 12/29/2023 until 01/27/[address] [facility] Work Phone: Comment on above: 1 Occurrences starti ng 12/29/2023 until 01/27/2025 [facility] Immunizations Immunization Date Immunization Notes Care Provider Fa cility 04-24-2021 SARS-CoV-2 (COVID-19 ) mRNA BNT-162b2 [employer] [facility] Comment on above: Result Comment: 2021: TPVAL 04-01-2021 SARS-CoV-2 (COVID-19 ) mRNA BNT-162b2 [facility] Yusuf CASTRO [facility] Comment on above: Result Comment: 2021: TPVAL 01-18-2010 tetanus toxoid, redu bon diphtheria toxoid, and acellular pertussis vaccine, adsorbed Jayme Schmidt MD Work Phone: [facility] 11-22-1998 varicella virus vaccine Jayme Schmidt MD Work Phone: [facility] Healthcare Payers Date Payer Category Payer Medicaid (Managed Care) [facility] MEDICAID [id number] 2023 Self-pay 2023 Medicaid [id number] 2023 Medicaid [id number] 2017 Unknown [employer] BLUE CARD PPO OOS [id number] 2017-Present [phone] [address] [place] [address] PPO [id number] 2017 Unknown 1997 Unknown [id number] 2.16.840.1.725022.3.579.2. 196 1997 Unknown [id number] 2.16.840.1.779617.3.579.2. 196 1997 Unknown [id number] 2.16.840.1.784992.3.579.2. 593 1997 Unknown [id number] 2.16.840.1.390440.3.579.2. 593 1997 Unknown [id number] 2.16.840.1.625460.3.579.2. 593 1997 Unknown [id number] 2.16.840.1.822902.3.579.2. 727 1997 Unknown [id number] 2.16.840.1.662197.3.579.2. 727 1997 Unknown [id number] 2.16.840.1.685023.3.579.2. 727 1997 Unknown [id number] 2.16.840.1.315421.3.579.2. 727 1997 Unknown [id number] 2.16.840.1.950719.3.579.2. 1259 1997 Unknown [id number] 2.16.840.1.143121.3.579.2. 1259 1997 Unknown [id number] 2.16.840.1.567772.3.579.2. 1259 1997 Unknown [id number] 2.16.840.1.596225.3.579.2. 9 1997 Unknown [id number] 2.16.840.1.810650.3.579.2. 9 1997 Unknown [id number] 2.16.840.1.035847.3.579.2. 9 1997 Unknown [id number] 2.16.840.1.106084.3.579.2. 1259 1997 Unknown [id number] 2.16.840.1.961417.3.579.2. 9 1997 Unknown [id number] 2.16.840.1.976948.3.579.2. 1259 1962 Unknown [id number] 2.16.840.1.256343.3.579.2. 727 1959 Unknown [id number] Private Health Insurance [employer] [id number] Unknown [id number] 2.16.840.1.673953.3.579.2. 531 Social History Date Type Detail Facility Start: 09-09-2013 End: 03-28-2023 Tobacco smoking status ILIS Never smoked tobacco [facility] Start: 09-09-2013 End: 03-28-2023 Tobacco use and exposure Smokeless tobacco non-user [facility] Start: 08-03-2021 End: 12-29-2023 Alcohol intake Current non-drinker of alcohol (finding) [facility] Start: 1997 Sex Assigned At Female [facility] Start: 10-26-2021 End: 2021 Exposure to SARS-CoV-2 (event) Not sure [facility] Tobacco smoking status Smokeless tobacco user within last 30 days [facility] Start: 08-29-2023 End: 09-17-2023 Sex Assigned At Female [facility] History of tobacco use Passive smoker [facility] Start: 08-29-2023 End: 09-17-2023 History of Social function [facility] Start: 07-21-2021 Gender identity Identifies as female gender (finding) [facility] Start: 07-21-2021 Sexual orientation Heterosexual (finding) [facility] Start: 09-25-2023 Tobacco smoking status NHIS Unknown if ever smoked [facility] Start: 03-18-2024 End: 07-31-2024 Alcoholic beverage intake Ex-drinker (finding) [facility] Do you belong to any clubs or organizations such as judaism groups, unions, fraternal or athletic groups, or school groups? No [facility] Are you now , , , , never or living with a partner? Never [facility] How often to you hav e a drink containing alcohol? Monthly or less [facility] How many standard dr inks containing alcohol do you have on a typical day? 5 or 6 [facility] How often do you hav e 6 or more drinks on 1 occasion? Less than monthly [facility] How hard is it for y ou to pay for the very basics like food, housing, medical care, and heating Somewhat hard [facility] Do you feel stress - tense, restless, nervous, or anxious, or unable to sleep at night because your mind is troubled all the time - these days [OSQ] Not at all [facility] (I/We) worried wheth er (my/our) food would run out before (I/we) got money to buy more. Sometimes true [facility] Start: 03-31-2023 Alcohol Comment caffeine intake: 1-2 cups per day. [facility] Functional Status Date Assessment Result Facility 05-24-2022 Functional Status N/A [facility] Clinical Notes 02-22-2021 to 07-31-2024 Caren Chávez MA - 07/31/2024 2:50 PM Ayana Schmidt MD - 07/30/2024 3:35 PM Ayana Schmidt MD - 07/30/2024 3:34 PM Ayana Schmidt MD - 07/30/2024 3:34 PM EST Note Date & Type Note Facility 07-31-2024 History of Presen t illness Narrative Reason for Appointment: Patient ID: Natalie Jaquez is a 28 y.o. female who presents for Weight Management (Pt present today for Adipex #2 visit.) Patient presents today for a weight management consultation. Patient has been prescribed Adipex and she is here for her 2nd prescription. Today's Vitals: Estimated body mass index is 43.42 kg/m as calculated from the following: Height as of 06/24/24: 5' 6 . Weight as of 07/30/24: 269 lb. Previous Weight/BMI: Wt Readings from Last 2 Encounters: 07/30/24 269 lb 07/08/24 272 lb 6.4 oz BMI Readings from Last 2 Encounters: 07/30/24 43.42 kg/m 07/08/24 43.97 kg/m Allergies as of 07/31/2024 - Reviewed 07/31/2024 Allergen Reaction Noted Interferon beta-1a Anaphylaxis, Hives, and Shortness of breath 01/15/2014 Glatiramer acetate Unknown 03/28/2023 Moxifloxacin Unknown 03/28/2023 Glatiramer Rash 04/14/2014 Past Medical History: Diagnosis Date Acne vulgaris Anemia Bipolar affective disorder, currently depressed, mild ([facility]/HCC) BMI 38.0-38.9,adult 03/28/2023 Chronic migraine without aura without status migrainosus, not intractable ([facility]) Ear problems September 2022 Fatigue JEFF (generalized anxiety disorder) ([facility]/HCC) Gastritis Hypothyroid ([facility]) Insulin resistance Iron deficiency anemia Irritable bowel syndrome with both constipation and diarrhea MS (multiple sclerosis) ([facility]) PCOS (polycystic ovarian syndrome) Pneumonia, bacterial Polycystic ovarian disease Proteinuria 03/28/2023 Vitamin D deficiency Past Surgical History: Procedure Laterality Date CHOLECYSTECTOMY EGD PILONIDAL CYST DRAINAGE TONSILLECTOMY Assessment/Plan Encounter Diagnosis Name Primary? Weight gain Adipex: Patient presents today for 2nd Adipex prescription. Patients weight and blood pressure has been captured and discussed with the patient. I have discussed/reiterated the importance of keeping a food journal, proper nutrition/diet, and exercise regimen while taking Adipex. Patient verbalized understanding and was given a printed prescription signed by provider to take to their local pharmacy. Follow Up: Patient is to return to the office in 1 month for further evaluation to assess patient progress. Weight and blood pressure will need to be obtained in order for patient to receive 3rd prescription. Documented by: Caren Chávez MA on behalf of LEONIE Ca documented in this encounter [facility] 07-30-2024 History of Presen t illness Narrative Associated Problem(s): Class 3 severe obesity due to excess calories without serious comorbidity with body mass index (BMI) of 40.0 to 44.9 in adult (CMS/HCC) Weight down 10 pounds with adipex and continue. Associated Problem(s): Tinea pedis Start cream. Associated Problem(s): Multiple sclerosis (CMS/HCC) No change and follow up with neurology. Associated Problem(s): JEFF (generalized anxiety disorder) ([facility]) Occasional symptoms but tolerable with medication and continue. Associated Problem(s): Bipolar 1 disorder, depressed, mild ([facility]) Occasional symptoms but tolerable with medication and continue. Images from the original note were not included. Subjective Patient ID: Natalie Jaquez is a 28 y.o. female who presents for No chief complaint on file.. Follow up bipolar, anxiety, and MS. Bipolar stable today. Mild symptoms and at times down, sad, and no motivation. Occasionally not want to do anything or be around others. No liam and not hyper or full of energy. Anxiety stable. Not as stressed out or overwhelmed. Not as nervous or worry as much. Not as ashley or irritable. Overall feels like doing well with medication. MS unchanged. No weakness or focal deficits. Continues to have fatigue but adderall helps. Following with neurology and on Ocrevus. MRI ordered and no new lesions. C/o rash on foot for several weeks. Red, irritated and itchy. Similar rash in past and OTC spray helped. Review of Systems Respiratory: Negative for cough, shortness of breath and wheezing. Cardiovascular: Negative for chest pain and palpitations. Gastrointestinal: Negative for abdominal pain, diarrhea, nausea and vomiting. Genitourinary: Negative for dysuria. Objective Physical Exam Constitutional: General: She is not in acute distress. Appearance: Normal appearance. HENT: Head: Normocephalic. Right Ear: Tympanic membrane normal. Left Ear: Tympanic membrane normal. Eyes: Extraocular Movements: Extraocular movements intact. Pupils: Pupils are equal, round, and reactive to light. Cardiovascular: Rate and Rhythm: Normal rate and regular rhythm. Heart sounds: No murmur heard. No friction rub. No gallop. Pulmonary: Effort: Pulmonary effort is normal. Breath sounds: Normal breath sounds. No wheezing, rhonchi or rales. Abdominal: General: Bowel sounds are normal. There is no distension. Palpations: Abdomen is soft. Tenderness: There is no abdominal tenderness. There is no guarding or rebound. Musculoskeletal: Cervical back: Neck supple. Right lower leg: No edema. Left lower leg: No edema. Neurological: Mental Status: She is alert. Assessment/Plan Problem List Items Addressed This Visit Bipolar 1 disorder, depressed, mild (CMS/HCC) - Primary Occasional symptoms but tolerable with medication and continue. Multiple sclerosis (CMS/HCC) No change and follow up with neurology. JEFF (generalized anxiety disorder) (CMS/HCC) Occasional symptoms but tolerable with medication and continue. Class 3 severe obesity due to excess calories without serious comorbidity with body mass index (BMI) of 40.0 to 44.9 in adult (CMS/HCC) Weight down 10 pounds with adipex and continue. Tinea pedis Start cream. Relevant Medications clotrimazole (Lotrimin) 1 % cream documented in this encounter [facility] 07-26-2024 History of Presen t illness Narrative Images from the original note were not included. [facility] FOLLOWUP/ESTABLISHED PATIENT VISIT, Virtual PRINCIPAL NEUROLOGIC DIAGNOSIS: Multiple Sclerosis DISEASE SUMMARY: Year of Diagnosis: 2013 Relapse History: Year Month Site Symptoms Therapy 2016 1 BS/CBL falls, leg tingling steroids Treatment History: Medication Start Year Start Month Stop Year Stop Month Top Stop Reason interferon beta-1a intramuscular 2013 6 intolerance/side effects/symptoms glatiramer acetate 2013 9 intolerance/side effects/symptoms dimethyl fumarate 2013 unknown new relapses/MRI changes/breakthrough ocrelizumab 2017 1111/14/2023 Most recent MRI brain Number of new T2 lesions None Site 01/23/2023 Most recent MRI cervical spine Number of new cervical T2 lesions None None CHIEF COMPLAINT: Follow-up on MS disease modifying therapy INTERVAL HISTORY: Last seen 04/24/2024 - Repeat C and T spine MRI 07/18/2024: Stable intramedullary C-spine lesion - Ocrevus started 2017, last infusion 07/15/24 - CD3-CD19 counts 0, IgG low (511, has always been) (07/15/2024); CMP mildly elevated AST/ALT, unremarkable CBC (slightly elevated hematocrit int he setting of not drinking/eating breakfast and low but not concerning lymphocytes in the setting of Ocrevus) - Doing so so . Has being having muscle spasms in feet wrist and hip (bilateral). This is not new but maybe a bit worse. It started worsening after last Ocrevus infusion. Rates discomfort at 4-5/10. It happens once or twice a day and lasts a few minutes. She has some harder time walk on the left foot. She has ot been able to go to Physical therapy. She takes her Baclofen only once a week at night as this makes her tired. She has tried half a dose without success. - She is still having diarrhea 3-4 times per day ( last time she noted once a day, but today says it is stable from last time). She cherry s not been able to get into GI at [facility] until August of this year. - She never started Oxbutynin for urinary urgency. Today notes that her bladder symptoms are ok. Lately has been able to get to the bathroom in time. - She has had 1 ear infection in the setting of being exposed to FLU. She also had cold symptoms with body aches 2 months ago and was sent home from an outside ED. 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 Wears pad Bowel: see HPI Fatigue: Always tired Sleep: Ok, naps occasionally . Doesn't wake up during the night. Memory/Concentration: concentration is ok. Usual treating team: Jeff/Angela The patient is accompanied by self. The patient was last seen 05/26/2024, currently taking Ocrevus. Since the patient's last visit the patient reports overall feeling stable to worse. Issues with current therapy: Tolerating medication with diarrhea. Neuro-QoL Functions (higher=better functioning) Flowsheet Row Appointment from 07/26/2024 in [facility] from 04/24/2024 in Neurology Office Visit from 08/29/2023 in [facility] Upper Extremity Domain T Score 35 38 34.21 Lower Extremity Domain T Score 43 39 40.53 Cognitive Function Domain T Score 46 41 38.17 Positive Affect Well Being T Score -- -- -- Ability To Participate In Social Roles T Score 43 44 41.74 Satisfaction With Social Roles T Score 40 43 37.74 Neuro-QoL Symptoms (higher=worse symptoms) Flowsheet Row Appointment from 07/26/2024 in [facility] from 04/24/2024 in Neurology Office Visit from 08/29/2023 in [facility] Sleep Domain T Score 55 61 58.92 Fatigue Domain T Score 70 70 61.32 Anxiety Domain T Score 47 61 50.02 Depression Domain T Score 53 57 53.37 Stigma Domain T Score 56 54 50.58 Emotional Behavior Dyscontrol T Score -- -- -- has a past medical history of Multiple sclerosis (HCC), Myopia, and Wears glasses. has a current medication list which includes the following prescription(s): dextroamphetamine-amphetamine, oxybutynin er, venlafaxine er, baclofen, aripiprazole, cholecalciferol (vitamin d3), ferrous sulfate, norgestimate-ethinyl estradiol, and levothyroxine. EXAM: LMP 08/29/2023 (Exact Date) MSPT Results Flowsheet Row Office Visit from 08/29/2023 in [facility] Office Visit from 12/04/2020 in [facility] Office Visit from 10/05/2017 in [facility] Processing Speed Total Number Correct 61 59 70 Processing Speed Z score -- -- -- Dominant hand -- -- -- MDT Left Hand Time 24.76 21.88 20.98 MDT Right Hand Time 21.58 20.13 19.06 Walking Speed Test (25 feet) 5.71 3.85 4.97 Memory Z Score -- -- -- General Appearance: Walker and well appearing, in no acute distress Mental status evaluation during the interview and examination showed normal level of consciousness, orientation, language, memory, praxis, and higher intellectual function Affect: Normal RESULTS: CBC + Diff Component Value Date WBC 5.80 07/15/2024 HB 15.3 07/15/2024 HCT 46.2 (H) 07/15/2024 PLT 363 07/15/2024 ABSLYMPH 0.57 (L) 07/15/2024 MRI Results: Discrete MRI Results Component Value Date Brain New T2 Lesions None Site 11/14/2023 Brain Enhancing Lesions None 11/14/2023 Cervical Spine New T2 Lesions None 01/23/2023 Cervical Spine New T2 Lesions None 01/23/2023 Cervical spine enhancing lesions None 01/23/2023 Cervical spine enhancing lesions None 01/23/2023 MRI lumbar 11/14/23 The lower thoracic cord appears unremarkable without abnormal foci of T2 prolongation. Discogenic degenerative changes at L4-L5 and L5-S1 with annular fissures resulting in varying degrees of spinal stenosis, as described above. None. L4-5 is considered the level of the iliac crest and assume there are 5 lumbar-type vertebrae. last C and T spine MRI 07/18/2024 Scattered intramedullary lesions compatible with the clinical history of multiple sclerosis. No new T2 intramedullary lesions and no new enhancing intramedullary lesions. No significant volume loss of the spinal cord for age. No new lesions ASSESSMENT/PLAN: Natalie Jaquez is a 28 year old female with Multiple Sclerosis. Exam is: stable, virtual She does have worsening spasms that are difficult to treat due to fatigue from medications. Recommended physical therapy for this. She also has diarrhea of unknown etiology, started with onset of Ocrevus and could be a side effect of rare SE of collagenous colitis. She wants to stay on Ocrevus even if this is the cause. Has GI appointment coming up locally. She has a mild infection burden on Ocrevus with low IgG. Ok to continue Ocrevus for now. She will need an updated MRI brain in October of 2024. She has had a stable MRI C and T spine in June of 2024. Patient is on Ocrevus 600 mg IV q 6 months, we will continue with this MS therapy as they are clinically stable and tolerating the medication well. I have reviewed the risks, benefits and alternatives of Ocrevus. Safety monitoring included: CBC with diff , CMP, IgG q 6 months Disease monitoring: Brain MRI annually MRI of the brain and/or spinal cord is being ordered to evaluate for efficacy of multiple sclerosis (MS) disease modifying therapy. Disease activity in MS is often not immediately detectable on history or examination, but is sensitively identified on MRI. If identified, new or active MS lesions on MRI may represent suboptimal response to MS therapy, and would change medical management. We reviewed infection control, especially good hand washing. PLAN: -- Physical Therapy as above -- Brain MRI w/wo contrast in October 2024 -- Follow up in 6 months -- Agree with GI appointment, patient prefers to stay locally Appointment on 07/26/24 MRI [facility] [facility] [place] TO PHYSICAL THERAPY The chart was reviewed for possible participation in the following studies:None Patient Health Education Discussed at Visit: Aerobic exercise, Emotional Health/Wellness, Healthy Weight, and Need for PCP Nathaly Garcia MD Neuroimmunology Fellow [facility] Multiple Sclerosis I reviewed the note and agree with the history, exam findings, assessment, and plan listed above. I have spoke with the patient, reviewed the symptoms, test results and the plan. Patient is reporting left sided spasms and sedation from baclofen, even 5 mg , referred to PT, can try zanaflex if this does not help. Reviewed the rare risk of collagenous colitis and a consult here at for GI, she declined and would like to remain on Ocrevus. Continue Ocrevus, contact with any change in symptoms. I have answered all of their questions. Autumn Barclay MD documented in this encounter [facility] 07-26-2024 Note HNO ID: [id number] Author: AUTUMN BARCLAY MD Service: ? Author Type: Fellow Type: Progress Notes Filed: 07/26/2024 15:20 Note Text: [facility] FOLLOWUP/ESTABLISHED PATIENT VISIT, Virtual PRINCIPAL NEUROLOGIC DIAGNOSIS: Multiple Sclerosis DISEASE SUMMARY: Year of Diagnosis: 2013 Relapse History: Year Month Site Symptoms Therapy 2015 1 BS/CBL falls, leg tingling steroids Treatment History: Medication Start Year Start Month Stop Year Stop Month Top Stop Reason interferon beta-1a intramuscular 2013 intolerance/side effects/symptoms glatiramer acetate 2013 intolerance/side effects/symptoms dimethyl fumarate 2013 unknown new relapses/MRI changes/breakthrough ocrelizumab 2017 1111/14/2023 Most recent MRI brain Number of new T2 lesions None Site 01/23/2023 Most recent MRI cervical spine Number of new cervical T2 lesions None None CHIEF COMPLAINT: Follow-up on MS disease modifying therapy INTERVAL HISTORY: Last seen 04/24/2024 - Repeat C and T spine MRI 07/18/2024: Stable intramedullary C-spine lesion - Ocrevus started 2017, last infusion 07/15/24 - CD3-CD19 counts 0, IgG low (511, has always been) (07/15/2024); CMP mildly elevated AST/ALT, unremarkable CBC (slightly elevated hematocrit int he setting of not drinking/eating breakfast and low but not concerning lymphocytes in the setting of Ocrevus) - Doing so so . Has being having muscle spasms in feet wrist and hip (bilateral). This is not new but maybe a bit worse. It started worsening after last Ocrevus infusion. Rates discomfort at 4-5/10. It happens once or twice a day and lasts a few minutes. She has some harder time walk on the left foot. She has ot been able to go to Physical therapy. She takes her Baclofen only once a week at night as this makes her tired. She has tried half a dose without success. - She is still having diarrhea 3-4 times per day ( last time she noted once a day, but today says it is stable from last time). She cherry s not been able to get into GI at [facility] until August of this year. - She never started Oxbutynin for urinary urgency. Today notes that her bladder symptoms are ok. Lately has been able to get to the bathroom in time. - She has had 1 ear infection in the setting of being exposed to FLU. She also had cold symptoms with body aches 2 months ago and was sent home from an outside ED. 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 Wears pad Bowel: see HPI Fatigue: Always tired Sleep: Ok, naps occasionally . Doesn't wake up during the night. Memory/Concentration: concentration is ok. Usual treating team: Jeff/Angela The patient is accompanied by self. The patient was last seen 05/26/2024, currently taking Ocrevus. Since the patient's last visit the patient reports overall feeling stable to worse. Issues with current therapy: Tolerating medication with diarrhea. Neuro-QoL Functions (higher=better functioning) Flowsheet Row Appointment from 07/26/2024 in [facility] from 04/24/2024 in Neurology Office Visit from 08/29/2023 in [facility] Upper Extremity Domain T Score 35 38 34.21 Lower Extremity Domain T Score 43 39 40.53 Cognitive Function Domain T Score 46 41 38.17 Positive Affect Well Being T Score -- -- -- Ability To Participate In Social Roles T Score 43 44 41.74 Satisfaction With Social Roles T Score 40 43 37.74 Neuro-QoL Symptoms (higher=worse symptoms) Flowsheet Row Appointment from 07/26/2024 in [facility] from 04/24/2024 in Neurology Office Visit from 08/29/2023 in [facility] Sleep Domain T Score 55 61 58.92 Fatigue Domain T Score 70 70 61.32 Anxiety Domain T Score 47 61 50.02 Depression Domain T Score 53 57 53.37 Stigma Domain T Score 56 54 50.58 Emotional Behavior Dyscontrol T Score -- -- -- has a past medical history of Multiple sclerosis (HCC), Myopia, and Wears glasses. has a current medication list which includes the following prescription(s): dextroamphetamine-amphetamine, oxybutynin er, venlafaxine er, baclofen, aripiprazole, cholecalciferol (vitamin d3), ferrous sulfate, norgestimate-ethinyl estradiol, and levothyroxine. EXAM: LMP 08/29/2023 (Exact Date) MSPT Results Flowsheet Row Office Visit from 08/29/2023 in [facility] Office Visit from 12/04/2020 in [facility] Office Visit from 10/05/2017 in [facility] Processing Speed Total Number Correct 61 59 70 Processing Speed Z score -- -- -- Dominant hand -- -- -- MDT Left Hand Time 24.76 21.88 20.98 MDT Right Hand Time 21.58 20.13 19.06 Walking Speed Test (25 feet) 5.71 3.85 4.97 Memory Z Score -- -- -- General Appearance: Walker and well appearing, in no acute distress Mental status evaluation during the interview and examination showed normal level of consciousness, orientation, language, memory, praxis, and higher intellect (more content not included)... [facility] 07-18-2024 History of Presen t illness Narrative Radiology Service Progress Note DATE OF SERVICE: July 18, 2024 TIME: 1:47 PM PATIENT IDENTITY VERIFICATION COMPLETED USING TWO (2) STANDARD IDENTIFIERS: Name and Date of confirmed by patient verbally and Name and Date of confirmed by identification band. FALL SCREENING: Has the patient had 2 falls in the last year or 1 fall with injury or currently using an Ambulatory Assistive Device (Walker, Cane, Wheelchair, Crutches, etc.)? No PATIENT GENDER DATA: Female. status: : No status: NO. PATIENT RELEVANT IMPLANT DATA REVIEWED: Yes PATIENT PRESENTS WITH AN IMPLANTABLE OR ATTACHED CARGO SERVICE SUPERVISOR: No ALLERGIES: Reviewed and unchanged CONTRAST ALLERGY: NO. EXAM: MRI - CONTRAST TYPE: GROUP II PERIPHERAL IV DATA: Ambulatory: A peripheral IV was started in the Right antecubital site with a Butterfly: 25 gauge. RADIOLOGY DEPARTMENT: MR; Exam(s) Completed: Spine: Cervical spine and Thoracic spine SIGNATURE: RT Jeffrey(Shelby) PATIENT NAME: Natalie Jaquez DATE: July 18, 2024 TIME: 1:47 PM documented in this encounter [facility] 07-18-2024 Note HNO ID: [id number] Author: DANICA NGUYEN RT(R) Service: Radiology Author Type: Technologist Type: Progress Notes Filed: 07/18/2024 14:18 Note Text: Radiology Service Progress Note DATE OF SERVICE: July 18, 2024 TIME: 1:47 PM PATIENT IDENTITY VERIFICATION COMPLETED USING TWO (2) STANDARD IDENTIFIERS: Name and Date of confirmed by patient verbally and Name and Date of confirmed by identification band. FALL SCREENING: Has the patient had 2 falls in the last year or 1 fall with injury or currently using an Ambulatory Assistive Device (Walker, Cane, Wheelchair, Crutches, etc.)? No PATIENT GENDER DATA: Female. status: : No status: NO. PATIENT RELEVANT IMPLANT DATA REVIEWED: Yes PATIENT PRESENTS WITH AN IMPLANTABLE OR ATTACHED CARGO SERVICE SUPERVISOR: No ALLERGIES: Reviewed and unchanged CONTRAST ALLERGY: NO. EXAM: MRI - CONTRAST TYPE: GROUP II PERIPHERAL IV DATA: Ambulatory: A peripheral IV was started in the Right antecubital site with a Butterfly: 25 gauge. RADIOLOGY DEPARTMENT: MR; Exam(s) Completed: Spine: Cervical spine and Thoracic spine SIGNATURE: RT Jeffrey(R) PATIENT NAME: Natalie Jaquez DATE: July 18, 2024 TIME: 1:47 PM [facility] 07-08-2024 History of Presen t illness Narrative Reason for Appointment: Patient ID: Natalie Jaquez is a 28 y.o. female who presents for Weight Management Patient presents today for Weight Management Consult. MEDICATIONS Current Outpatient Medications Medication Instructions ARIPiprazole (ABILIFY) 15 mg, Oral, Daily ferrous sulfate 325 mg, Oral, 2 times daily levothyroxine (SYNTHROID, LEVOXYL) 75 mcg, Oral, Daily metFORMIN XR (GLUCOPHAGE-XR) 500 mg, Oral, 2 times daily, Do not crush, chew, or split. norgestimate-ethinyl estradiol (Ortho Tri-Cyclen,Trinessa) 0.18/0.215/0.25 MG-35 MCG tablet 1 tablet, Oral, Daily ocrelizumab (Ocrevus) 300 MG/10ML solution Yearly phentermine (ADIPEX-P) 37.5 mg, Oral, Daily before breakfast venlafaxine XR (EFFEXOR XR) 150 mg, Oral, Daily ALLERGIES Allergies Allergen Reactions Avonex [Interferon Beta-1a] Anaphylaxis Glatiramer Acetate Unknown Moxifloxacin Unknown PROBLEMS Active Ambulatory Problems Diagnosis Date Noted Acne vulgaris 03/28/2023 Adrenogenital disorder ([facility]) 04/12/2005 Anemia 01/13/2015 Chronic bilateral low back pain with bilateral sciatica 07/08/2014 Bipolar 1 disorder, depressed, mild ([facility]) 03/28/2023 Multiple sclerosis ([facility]) 04/24/2014 JEFF (generalized anxiety disorder) ([facility] [place] [place]) 03/28/2023 History of PCOS 10/05/2015 Adult hypothyroidism ([facility]) 03/28/2023 Iron deficiency anemia 01/15/2015 Irritable bowel syndrome 03/28/2023 Migraine without aura and without status migrainosus, not intractable ([facility]) 08/16/2015 Vitamin D deficiency 03/28/2023 Class 3 severe obesity due to excess calories without serious comorbidity with body mass index (BMI) of 40.0 to 44.9 in adult ([facility]) 09/18/2023 PCOS (polycystic ovarian syndrome) 09/18/2023 Insulin resistance 09/18/2023 Encounter for long-term (current) use of medications 09/18/2023 Encounter for weight management 07/08/2024 Resolved Ambulatory Problems Diagnosis Date Noted Bladder dysfunction 07/08/2014 Change in bowel habits 03/28/2023 Demyelinating changes in brain ([facility]) 12/01/2013 Exercise induced bronchospasm ([facility]) 02/08/2012 Frequent UTI 08/11/2015 Headache 01/20/2015 Memory disorder 08/11/2015 BMI 38.0-38.9,adult 03/28/2023 Proteinuria 03/28/2023 Acute non-recurrent pansinusitis 09/18/2023 Past Medical History: Diagnosis Date Bipolar affective disorder, currently depressed, mild ([facility]) Chronic migraine without aura without status migrainosus, not intractable ([facility]) Ear problems September 2022 Fatigue Gastritis Hypothyroid ([facility]) Irritable bowel syndrome with both constipation and diarrhea MS (multiple sclerosis) ([facility]) Pneumonia, bacterial Polycystic ovarian disease HISTORY PAST MEDICAL HISTORY SOCIAL HISTORY Past Medical History: Diagnosis Date Acne vulgaris Anemia Bipolar affective disorder, currently depressed, mild ([facility]) BMI 38.0-38.9,adult 03/28/2023 Chronic migraine without aura without status migrainosus, not intractable ([facility]) Ear problems September 2022 Fatigue JEFF (generalized anxiety disorder) (CMS/HCC) Gastritis Hypothyroid (CMS/HCC) Insulin resistance Iron deficiency anemia Irritable bowel syndrome with both constipation and diarrhea MS (multiple sclerosis) (CMS/HCC) PCOS (polycystic ovarian syndrome) Pneumonia, bacterial Polycystic ovarian disease Proteinuria 03/28/2023 Vitamin D deficiency Social History Tobacco Use Smoking status: Never Smokeless tobacco: Never Substance Use Topics Alcohol use: Not Currently Comment: caffeine intake: 1-2 cups per day. Drug use: Never FAMILY HISTORY Family History Problem Relation Name Age of Onset COPD Mother Cintia Jaquez Thyroid disease Mother Cintia Jaquez Hypertension Mother Cintia Jaquez Crohn's disease Mother Cintia Jaquez Diabetes Father Blake Jaquez Cancer Maternal Grandmother Andreina Little COPD Maternal Grandfather Cancer Paternal Grandmother SURGICAL HISTORY Past Surgical History: Procedure Laterality Date CHOLECYSTECTOMY EGD PILONIDAL CYST DRAINAGE TONSILLECTOMY REVIEW OF SYSTEMS Review of Systems: Review of Systems Constitutional: Negative. HENT: Negative. Eyes: Negative. Respiratory: Negative. Cardiovascular: Negative. Gastrointestinal: Negative. Genitourinary: Negative. Musculoskeletal: Negative. Skin: Negative. Neurological: Negative. All other systems reviewed and are negative. Hematological: Negative. Endocrine: Negative. Allergic/Immunologic: Negative. OBJECTIVE Objective: Physical Exam Constitutional: Appearance: Normal appearance. She is normal weight. HENT: Head: Normocephalic. Cardiovascular: Rate and Rhythm: Normal rate. Pulses: Normal pulses. Pulmonary: Effort: Pulmonary effort is normal. Breath sounds: Normal breath sounds. Abdominal: Palpations: Abdomen is soft. Musculoskeletal: General: Normal range of motion. Neurological: General: No focal deficit present. Mental Status: She is alert and oriented to person, place, and time. Psychiatric: Mood and Affect: Mood normal. Behavior: Behavior normal. Thought Content: Thought content normal. Judgment: Judgment normal. Vitals and nursing note reviewed. Vitals: Estimated body mass index is 43.97 kg/m as calculated from the following: Height as of 06/24/24: 5' 6 . Weight as of this encounter: 272 lb 6.4 oz. BP: 126/84 No LMP recorded (lmp unknown). ASSESSMENT & PLAN ICD-10-CM 1. Encounter for weight management Z76.89 Pt was prescribed adipex by Dr schmidt and wished to discuss weight loss and management with the medication. Pt will follow up in our office in next month for her refill. All questions answered and pt agreed with plan of care Documented by LEONIE Ca on behalf of: LEONIE Ca documented in this encounter [facility] 06-24-2024 History of Presen t illness Narrative Associated Problem(s): Multiple sclerosis (CMS/HCC) No change and follow up with neurology. Associated Problem(s): Irritable bowel syndrome Symptoms worse and developed incontinence. Refer to GI. Associated Problem(s): JEFF (generalized anxiety disorder) ([facility]) Occasional symptoms but tolerable with medication and continue. Associated Problem(s): Class 3 severe obesity due to excess calories without serious comorbidity with body mass index (BMI) of 40.0 to 44.9 in adult (CMS/HCC) Patient overweight and difficult time losing weight. Discussed proper diet and regular aerobic exercise. Recommend Weight Watchers and need to limit calories and smaller portions. Need to increase activity and regular aerobic exercise several days a week for 30 minutes at a time. Interested in adipex and warned of potential cardiac side effects. Stop adderall while on adipex. Script written for first month and will need to recheck weight in 1 month. OARRS reviewed. Continue medications as prescribed. Associated Problem(s): Bipolar 1 disorder, depressed, mild (CMS/HCC) Occasional symptoms but tolerable with medication and continue. Subjective Patient ID: Natalie Jaquez is a 28 y.o. female who presents for Follow-up (3m /Referral to gastro). Follow up bipolar, anxiety, MS, and IBS. Bipolar stable today. Mild symptoms and at times down, sad, and no motivation. Occasionally not want to do anything or be around others. No liam and not hyper or full of energy. Anxiety stable. Not as stressed out or overwhelmed. Not as nervous or worry as much. Not as ashley or irritable. Overall feels like doing well with medication. IBS worse. Occasional cramping and discomfort. Frequent diarrhea and watery stool. Developed incontinence and at times can't control stool. Neuology checking spine but feels like need GI evaluation. MS unchanged. No weakness or focal deficits. Continues to have fatigue but adderall helps. Following with neurology and on Ocrevus. Weight unchanged and not able to lose. Requests medication for weight loss. Review of Systems Respiratory: Negative for cough, shortness of breath and wheezing. Cardiovascular: Negative for chest pain and palpitations. Gastrointestinal: Negative for abdominal pain, diarrhea, nausea and vomiting. Genitourinary: Negative for dysuria. Objective Physical Exam Constitutional: General: She is not in acute distress. Appearance: Normal appearance. HENT: Head: Normocephalic. Right Ear: Tympanic membrane normal. Left Ear: Tympanic membrane normal. Eyes: Extraocular Movements: Extraocular movements intact. Pupils: Pupils are equal, round, and reactive to light. Cardiovascular: Rate and Rhythm: Normal rate and regular rhythm. Heart sounds: No murmur heard. No friction rub. No gallop. Pulmonary: Effort: Pulmonary effort is normal. Breath sounds: Normal breath sounds. No wheezing, rhonchi or rales. Abdominal: General: Bowel sounds are normal. There is no distension. Palpations: Abdomen is soft. Tenderness: There is no abdominal tenderness. There is no guarding or rebound. Musculoskeletal: Cervical back: Neck supple. Right lower leg: No edema. Left lower leg: No edema. Neurological: Mental Status: She is alert. Assessment/Plan Problem List Items Addressed This Visit Bipolar 1 disorder, depressed, mild (CMS/HCC) - Primary Occasional symptoms but tolerable with medication and continue. Multiple sclerosis (CMS/HCC) No change and follow up with neurology. JEFF (generalized anxiety disorder) ([facility]) Occasional symptoms but tolerable with medication and continue. Irritable bowel syndrome Symptoms worse and developed incontinence. Refer to GI. Relevant Orders Ambulatory referral to Gastroenterology Class 3 severe obesity due to excess calories without serious comorbidity with body mass index (BMI) of 40.0 to 44.9 in adult ([facility]) Patient overweight and difficult time losing weight. Discussed proper diet and regular aerobic exercise. Recommend Weight Watchers and need to limit calories and smaller portions. Need to increase activity and regular aerobic exercise several days a week for 30 minutes at a time. Interested in adipex and warned of potential cardiac side effects. Stop adderall while on adipex. Script written for first month and will need to recheck weight in 1 month. OARRS reviewed. Continue medications as prescribed. documented in this encounter [facility] 06-10-2024 History of Presen t illness Narrative Reason for Appointment: Patient ID: Natalie Jaquez is a 28 y.o. female who presents for Infertility Patient presents today for Consult appointment. MEDICATIONS Current Outpatient Medications Medication Instructions amphetamine-dextroamphetamine (Adderall) 30 MG tablet 30 mg, Oral, 2 times daily ARIPiprazole (ABILIFY) 15 mg, Oral, Daily cholecalciferol (Vitamin D-3) 50 MCG (1999 UT) tablet 1 tablet, Every 24 hours dicyclomine (BENTYL) 20 mg, 4 times daily before meals and nightly ferrous sulfate 325 mg, Oral, 2 times daily levothyroxine (SYNTHROID, LEVOXYL) 75 mcg, Oral, Daily metFORMIN XR (GLUCOPHAGE-XR) 500 mg, Oral, Daily with evening meal, Do not crush, chew, or split. norgestimate-ethinyl estradiol (Ortho Tri-Cyclen,Trinessa) 0.18/0.215/0.25 MG-35 MCG tablet 1 tablet, Oral, Daily ocrelizumab (Ocrevus) 300 MG/10ML solution Yearly venlafaxine XR (EFFEXOR XR) 150 mg, Oral, Daily ALLERGIES Allergies Allergen Reactions Avonex [Interferon Beta-1a] Anaphylaxis Glatiramer Acetate Unknown Moxifloxacin Unknown PROBLEMS Active Ambulatory Problems Diagnosis Date Noted Acne vulgaris 03/28/2023 Adrenogenital disorder ([facility]) 04/12/2005 Anemia 01/13/2015 Chronic bilateral low back pain with bilateral sciatica 07/08/2014 Bipolar 1 disorder, depressed, mild ([facility]) 03/28/2023 Multiple sclerosis ([facility]) 04/24/2014 JEFF (generalized anxiety disorder) ([facility]) 03/28/2023 History of PCOS 10/05/2015 Adult hypothyroidism ([facility]) 03/28/2023 Iron deficiency anemia 01/15/2015 Irritable bowel syndrome 03/28/2023 Migraine without aura and without status migrainosus, not intractable ([facility]) 08/16/2015 Vitamin D deficiency 03/28/2023 Morbid obesity due to excess calories ([facility]) 09/18/2023 PCOS (polycystic ovarian syndrome) 09/18/2023 Insulin resistance 09/18/2023 Encounter for long-term (current) use of medications 09/18/2023 Resolved Ambulatory Problems Diagnosis Date Noted Bladder dysfunction 07/08/2014 Change in bowel habits 03/28/2023 Demyelinating changes in brain ([facility]) 12/01/2013 Exercise induced bronchospasm ([facility]) 02/08/2012 Frequent UTI 08/11/2015 Headache 01/20/2015 Memory disorder 08/11/2015 BMI 38.0-38.9,adult 03/28/2023 Proteinuria 03/28/2023 Acute non-recurrent pansinusitis 09/18/2023 Past Medical History: Diagnosis Date Bipolar affective disorder, currently depressed, mild ([facility]) Chronic migraine without aura without status migrainosus, not intractable ([facility]) Ear problems September 2022 Fatigue Gastritis Hypothyroid ([facility]) Irritable bowel syndrome with both constipation and diarrhea MS (multiple sclerosis) ([facility]) Pneumonia, bacterial Polycystic ovarian disease HISTORY PAST MEDICAL HISTORY SOCIAL HISTORY Past Medical History: Diagnosis Date Acne vulgaris Anemia Bipolar affective disorder, currently depressed, mild ([facility]) BMI 38.0-38.9,adult 03/28/2023 Chronic migraine without aura without status migrainosus, not intractable ([facility]) Ear problems September 2022 Fatigue JEFF (generalized anxiety disorder) ([facility]) Gastritis Hypothyroid (CMS/HCC) Insulin resistance Iron deficiency anemia Irritable bowel syndrome with both constipation and diarrhea MS (multiple sclerosis) (CMS/HCC) PCOS (polycystic ovarian syndrome) Pneumonia, bacterial Polycystic ovarian disease Proteinuria 03/28/2023 Vitamin D deficiency Social History Tobacco Use Smoking status: Never Smokeless tobacco: Never Substance Use Topics Alcohol use: Not Currently Comment: caffeine intake: 1-2 cups per day. Drug use: Never FAMILY HISTORY Family History Problem Relation Name Age of Onset COPD Mother Cintia Jaquez Thyroid disease Mother Cintia Jaquez Hypertension Mother Cintia Jaquez Crohn's disease Mother Cintia Jaquez Diabetes Father Blake Jaquez Cancer Maternal Grandmother Andreina Little COPD Maternal Grandfather Cancer Paternal Grandmother SURGICAL HISTORY Past Surgical History: Procedure Laterality Date CHOLECYSTECTOMY EGD PILONIDAL CYST DRAINAGE TONSILLECTOMY REVIEW OF SYSTEMS Review of Systems: Review of Systems All other systems reviewed and are negative. OBJECTIVE Objective: Physical Exam Constitutional: Appearance: Normal appearance. She is well-developed. Cardiovascular: Rate and Rhythm: Normal rate and regular rhythm. Pulmonary: Effort: Pulmonary effort is normal. Breath sounds: Normal breath sounds. Abdominal: General: Bowel sounds are normal. There is no distension. Palpations: Abdomen is soft. Tenderness: There is no abdominal tenderness. There is no guarding or rebound. Musculoskeletal: General: No swelling. Normal range of motion. Right lower leg: No edema. Left lower leg: No edema. Neurological: Mental Status: She is alert and oriented to person, place, and time. Skin: General: Skin is warm and dry. Psychiatric: Mood and Affect: Mood normal. Behavior: Behavior normal. Vitals and nursing note reviewed. Exam conducted with a gutter installer present. Vitals: Estimated body mass index is 44.03 kg/m as calculated from the following: Height as of 06/05/24: 5' 6 . Weight as of this encounter: 272 lb 12.8 oz. BP: 120/70 No LMP recorded (within weeks). ASSESSMENT & PLAN ICD-10-CM 1. Female infertility N97.9 Patient presents today to discuss PCOS and fertility. Patient voiced that she take Adderall to help stay awake due to her MS. Discussed Adipex or Wegovy (through compound pharmacy). Patient is currently taking Metformin and will now increase to 1,000mg daily. Patient aware that when she is ready to conceive then she will need to discontinue OCP and then cycles could be started with Progesterone to induce cycle and Femara to help with ovulation. If patient decides to start Adipex and stop Adderall--patient will talk with PCP to see his thoughts and will then reach out to office with determination. Patient will call back to office if she decides to proceed to Adipex and if patient does not do well on Adipex she is able to call office and request Compounded Wt management be sent to [facility]. Patient has voiced understanding and will call our office for any further questions/concerns. Follow Up: Patient to return to clinic when ready to discuss conceiving. Documented by Mone Dubon LPN on behalf of: Casey Rae DO documented in this encounter [facility] 06-05-2024 History of Presen t illness Narrative Images from the original note were not included. Subjective Patient ID: Natalie Jaquez is a 28 y.o. female who presents for Ear Problem (Left ear pain. ) Pt reports she had an MRI of the brain last October that showed left mastoid fluid. Pt had left OM last Fall. Pt c/o HL Family History Problem Relation Name Age of Onset COPD Mother Cintia Jaquez Thyroid disease Mother Cintia Jaquez Hypertension Mother Cintia Jaquez Crohn's disease Mother Cintia Jaquez Diabetes Father Blake Jaquez Cancer Maternal Grandmother Andreina Little COPD Maternal Grandfather Cancer Paternal Grandmother Active Ambulatory Problems Diagnosis Date Noted Acne vulgaris 03/28/2023 Adrenogenital disorder (CMS/HCC) 04/12/2005 Anemia 01/13/2015 Chronic bilateral low back pain with bilateral sciatica 07/08/2014 Bipolar 1 disorder, depressed, mild (CMS/HCC) 03/28/2023 Multiple sclerosis (CMS/HCC) 04/24/2014 JEFF (generalized anxiety disorder) (CMS/HCC) 03/28/2023 History of PCOS 10/05/2015 Adult hypothyroidism (CMS/HCC) 03/28/2023 Iron deficiency anemia 01/15/2015 Irritable bowel syndrome 03/28/2023 Migraine without aura and without status migrainosus, not intractable ([facility]) 08/16/2015 Vitamin D deficiency 03/28/2023 Morbid obesity due to excess calories ([facility]) 09/18/2023 PCOS (polycystic ovarian syndrome) 09/18/2023 Insulin resistance 09/18/2023 Encounter for long-term (current) use of medications 09/18/2023 Resolved Ambulatory Problems Diagnosis Date Noted Bladder dysfunction 07/08/2014 Change in bowel habits 03/28/2023 Demyelinating changes in brain ([facility]) 12/01/2013 Exercise induced bronchospasm ([facility]) 02/08/2012 Frequent UTI 08/11/2015 Headache 01/20/2015 Memory disorder 08/11/2015 BMI 38.0-38.9,adult 03/28/2023 Proteinuria 03/28/2023 Acute non-recurrent pansinusitis 09/18/2023 Past Medical History: Diagnosis Date Bipolar affective disorder, currently depressed, mild ([facility]) Chronic migraine without aura without status migrainosus, not intractable ([facility]) Ear problems September 2022 Fatigue Gastritis Hypothyroid ([facility]) Irritable bowel syndrome with both constipation and diarrhea MS (multiple sclerosis) ([facility]) Pneumonia, bacterial Polycystic ovarian disease Past Surgical History: Procedure Laterality Date CHOLECYSTECTOMY EGD PILONIDAL CYST DRAINAGE TONSILLECTOMY Allergies Allergen Reactions Avonex [Interferon Beta-1a] Anaphylaxis Glatiramer Acetate Unknown Moxifloxacin Unknown Current Outpatient Medications on File Prior to Visit Medication Sig Dispense Refill amphetamine-dextroamphetamine (Adderall) 30 MG tablet Take 1 tablet (30 mg) by mouth in the morning and 1 tablet (30 mg) before bedtime. 60 tablet 0 ARIPiprazole (Abilify) 15 MG tablet TAKE 1 TABLET BY MOUTH EVERY DAY 90 tablet 3 cholecalciferol (Vitamin D-3) 50 MCG (1999 UT) tablet Take 1 tablet by mouth 1 (one) time each day at the same time. dicyclomine (Bentyl) 20 MG tablet Take 20 mg by mouth in the morning and 20 mg at noon and 20 mg in the evening and 20 mg before bedtime. Take before meals. ferrous sulfate 325 (65 Fe) MG tablet TAKE 1 TABLET BY MOUTH TWICE A DAY 180 tablet 3 levothyroxine (Synthroid, Levoxyl) 75 MCG tablet TAKE 1 TABLET BY MOUTH EVERY DAY 30 tablet 5 metFORMIN XR (Glucophage-XR) 500 MG 24 hr tablet Take 1 tablet (500 mg) by mouth in the evening. Take with meals Do not crush, chew, or split. 30 tablet 11 norgestimate-ethinyl estradiol (Ortho Tri-Cyclen,Trinessa) 0.18/0.215/0.25 MG-35 MCG tablet TAKE 1 TABLET BY MOUTH EVERY DAY 84 tablet 3 ocrelizumab (Ocrevus) 300 MG/10ML solution Infuse into a venous catheter yearly Yearly for MS venlafaxine XR (Effexor XR) 150 MG 24 hr capsule TAKE 1 CAPSULE BY MOUTH EVERY DAY 90 capsule 1 No current facility-administered medications on file prior to visit. Objective Last Recorded Vitals Vitals: 06/05/24 1250 BP: 150/84 ENT Physical Exam Constitutional Appearance: patient appears well-developed, well-nourished and well-groomed, Communication/Voice: communication appropriate for developmental age; vocal quality normal; Ear Ear comments: Joey cerumen impaction. O/W normal Patient ID: Natalie Jaquez is a 28 y.o. female. Procedures Cerumen was removed from the ears using binocular microscopy under micro with [facility] Assessment/Plan Diagnoses and all orders for this visit: Chronic mastoiditis, left Other specified hearing loss of left ear, unspecified hearing status on contralateral side Bilateral impacted cerumen Pt reassured mastoid fluid normal for many months after OM Audio to eval apparent HL Joey ears debrided documented in this encounter [facility] 04-25-2024 Telephone encounter Note Summary: appointment lvm for patient to call so we can get er scheduled fora follow up in jul with dr barclay [facility] 04-25-2024 Miscellaneous Notes Summary: appointment lvm for patient to call so we can get er scheduled fora follow up in jul with dr barclay documented in this encounter [facility] 04-24-2024 Note HNO ID: [id number] Author: AUTUMN BARCLAY MD Service: ? Author Type: Physician Type: Progress Notes Filed: 04/24/2024 17:06 Note Text: [facility] FOLLOWUP/ESTABLISHED PATIENT VISIT, Virtual PRINCIPAL NEUROLOGIC DIAGNOSIS: Multiple Sclerosis DISEASE SUMMARY: Year of Diagnosis: 2013 Relapse History: Year Month Site Symptoms Therapy 2016 1 BS/CBL falls, leg tingling steroids Treatment History: Medication Start Year Start Month Stop Year Stop Month Top Stop Reason interferon beta-1a intramuscular 2013 6 intolerance/side effects/symptoms glatiramer acetate 2013 9 intolerance/side effects/symptoms dimethyl fumarate 2013 unknown new relapses/MRI changes/breakthrough ocrelizumab 2017 1111/14/2023 Most recent MRI brain Number of new T2 lesions None Site 01/23/2023 Most recent MRI cervical spine Number of new cervical T2 lesions None None CHIEF COMPLAINT: Follow-up on MS disease modifying therapy INTERVAL HISTORY: Ocrevus started 2017, due again 07/15/24 Mychart from patient 04/10/24 Just wanted to let you know about somethings. I have been having a terrible time with holding my bladder and bowel movements. I did have the colonoscopy like a year ago and they found nothing, it?s the MS causing the issues. Is there any medication or anything I can do to help this? Particularly the bowel movements. It?s usually loose stool and it just comes out I have to run to the bathroom usually because i don?t know it?s happening until it?s too late. Also have some numbness in my feet/toes lately. Thanks, Natalie had colonoscopy 2021, found nothing 2 years bowel incont, this is worsening hx of blood in stool, told possible IBS, no meds bladder incont is not as bad, can usually hold it bowel incont with coughing numbness in legs and lower back, intermittent , noticed this with shaving in the shower just seen by [facility]- reports ovarian cyst BM each morning after adderal coffee diarrhea- always loose, almost never firm , x 1. 5 years GI consult completed , Dr. Matthew Castellanos , 2021 UTI recently, first time in months dentist yesterday, treated for infection of her mouth, on Abx started school, more stressed Seeing Spine Med, PT ordered, she does not have time for this. Did not want to take gabapentin due to concern over SE. In the past, seen by Urology, had urethra stretched as a teen In ER 10/27/23 -[facility] Mood: Not bad Spasticity: See HPI Bladder: urgency, incontinence- more at night. Wears pad Bowel: see HPI Pain related to today's visit:reviewed on nursing intake documentation Fatigue: Tolerable Sleep: Ok, naps occasionally Memory/Concentration: Losing train of thought Asking for help with nutrition Usual treating team: Jeff/Angela The patient is accompanied by self. The patient was last seen 08/29/23 , currently taking Ocrevus. Since the patient's last visit the patient reports overall feeling worse. Issues with current therapy: Tolerating medication without side effects. Neuro-QoL Functions (higher=better functioning) Flowsheet Row Appointment from 04/24/2024 in Neurology Office Visit from 08/29/2023 in [facility] Office Visit from 09/02/2022 in [facility] Upper Extremity Domain T Score 38 34.21 39 Lower Extremity Domain T Score 39 40.53 44 Cognitive Function Domain T Score 41 38.17 44 Positive Affect Well Being T Score -- -- -- Ability To Participate In Social Roles T Score 44 41.74 45 Satisfaction With Social Roles T Score 43 37.74 40 Neuro-QoL Symptoms (higher=worse symptoms) Flowsheet Row Appointment from 04/24/2024 in Neurology Office Visit from 08/29/2023 in [facility] Office Visit from 09/02/2022 in [facility] Sleep Domain T Score 61 58.92 60 Fatigue Domain T Score 70 61.32 71 Anxiety Domain T Score 61 50.02 50 Depression Domain T Score 57 53.37 50 Stigma Domain T Score 54 50.58 50 Emotional Behavior Dyscontrol T Score -- -- -- has a past medical history of Multiple sclerosis (HCC), Myopia, and Wears glasses. has a current medication list which includes the following prescription(s): dextroamphetamine-amphetamine, venlafaxine er, baclofen, aripiprazole, cholecalciferol (vitamin d3), levothyroxine, oxybutynin er, iv contrast, iv contrast, ferrous sulfate, and norgestimate-ethinyl estradiol. EXAM: LMP 08/29/2023 (Exact Date) MSPT Results Flowsheet Row Office Visit from 08/29/2023 in [facility] Office Visit from 12/04/2020 in [facility] Office Visit from 10/05/2017 in [facility] Processing Speed Total Number Correct 61 59 70 Processing Speed Z score -- -- -- Dominant hand -- -- -- MDT Left Hand Time 24.76 21.88 20.98 MDT Right Hand Time 21.58 20.13 19.06 Walking Speed Test (25 feet) 5.71 3.85 4.97 General Appearance: Walker and well appearing, in no acute distress Mental status evaluation during the interview and examination showed normal level of consciousness, orientation, (more content not included)... [facility] 04-24-2024 History of Presen t illness Narrative Images from the original note were not included. [facility] FOLLOWUP/ESTABLISHED PATIENT VISIT, Virtual PRINCIPAL NEUROLOGIC DIAGNOSIS: Multiple Sclerosis DISEASE SUMMARY: Year of Diagnosis: 2013 Relapse History: Year Month Site Symptoms Therapy 2015 1 BS/CBL falls, leg tingling steroids Treatment History: Medication Start Year Start Month Stop Year Stop Month Top Stop Reason interferon beta-1a intramuscular 2013 6 intolerance/side effects/symptoms glatiramer acetate 2013 9 intolerance/side effects/symptoms dimethyl fumarate 2013 unknown new relapses/MRI changes/breakthrough ocrelizumab 2017 1111/14/2023 Most recent MRI brain Number of new T2 lesions None Site 01/23/2023 Most recent MRI cervical spine Number of new cervical T2 lesions None None CHIEF COMPLAINT: Follow-up on MS disease modifying therapy INTERVAL HISTORY: Ocrevus started 2017, due again 07/15/24 Mychart from patient 04/10/24 Just wanted to let you know about somethings. I have been having a terrible time with holding my bladder and bowel movements. I did have the colonoscopy like a year ago and they found nothing, it s the MS causing the issues. Is there any medication or anything I can do to help this? Particularly the bowel movements. It s usually loose stool and it just comes out I have to run to the bathroom usually because i don t know it s happening until it s too late. Also have some numbness in my feet/toes lately. Thanks, Natalie had colonoscopy 2021, found nothing 2 years bowel incont, this is worsening hx of blood in stool, told possible IBS, no meds bladder incont is not as bad, can usually hold it bowel incont with coughing numbness in legs and lower back, intermittent , noticed this with shaving in the shower just seen by [facility]- reports ovarian cyst BM each morning after adderal coffee diarrhea- always loose, almost never firm , x 1. 5 years GI consult completed , Dr. Matthew Castellanos , 2021 UTI recently, first time in months dentist yesterday, treated for infection of her mouth, on Abx started school, more stressed Seeing Spine Med, PT ordered, she does not have time for this. Did not want to take gabapentin due to concern over SE. In the past, seen by Urology, had urethra stretched as a teen In ER 10/27/23 -[facility] Mood: Not bad Spasticity: See HPI Bladder: urgency, incontinence- more at night. Wears pad Bowel: see HPI Pain related to today's visit:reviewed on nursing intake documentation Fatigue: Tolerable Sleep: Ok, naps occasionally Memory/Concentration: Losing train of thought Asking for help with nutrition Usual treating team: Jeff/Angela The patient is accompanied by self. The patient was last seen 08/29/23 , currently taking Ocrevus. Since the patient's last visit the patient reports overall feeling worse. Issues with current therapy: Tolerating medication without side effects. Neuro-QoL Functions (higher=better functioning) Flowsheet Row Appointment from 04/24/2024 in Neurology Office Visit from 08/29/2023 in [facility] Office Visit from 09/02/2022 in [facility] Upper Extremity Domain T Score 38 34.21 39 Lower Extremity Domain T Score 39 40.53 44 Cognitive Function Domain T Score 41 38.17 44 Positive Affect Well Being T Score -- -- -- Ability To Participate In Social Roles T Score 44 41.74 45 Satisfaction With Social Roles T Score 43 37.74 40 Neuro-QoL Symptoms (higher=worse symptoms) Flowsheet Row Appointment from 04/24/2024 in Neurology Office Visit from 08/29/2023 in [facility] Office Visit from 09/02/2022 in [facility] Sleep Domain T Score 61 58.92 60 Fatigue Domain T Score 70 61.32 71 Anxiety Domain T Score 61 50.02 50 Depression Domain T Score 57 53.37 50 Stigma Domain T Score 54 50.58 50 Emotional Behavior Dyscontrol T Score -- -- -- has a past medical history of Multiple sclerosis (HCC), Myopia, and Wears glasses. has a current medication list which includes the following prescription(s): dextroamphetamine-amphetamine, venlafaxine er, baclofen, aripiprazole, cholecalciferol (vitamin d3), levothyroxine, oxybutynin er, iv contrast, iv contrast, ferrous sulfate, and norgestimate-ethinyl estradiol. EXAM: LMP 08/29/2023 (Exact Date) MSPT Results Flowsheet Row Office Visit from 08/29/2023 in [facility] Office Visit from 12/04/2020 in [facility] Office Visit from 10/05/2017 in [facility] Processing Speed Total Number Correct 61 59 70 Processing Speed Z score -- -- -- Dominant hand -- -- -- MDT Left Hand Time 24.76 21.88 20.98 MDT Right Hand Time 21.58 20.13 19.06 Walking Speed Test (25 feet) 5.71 3.85 4.97 General Appearance: Walker and well appearing, in no acute distress Mental status evaluation during the interview and examination showed normal level of consciousness, orientation, language, memory, praxis, and higher intellectual function Affect: Normal RESULTS: CBC + Diff Component Value Date WBC 9.75 01/17/2024 HB 13.9 01/17/2024 HCT 42.7 01/17/2024 PLT 346 01/17/2024 ABSLYMPH 1.66 01/17/2024 MRI Results: Discrete MRI Results Component Value Date Brain New T2 Lesions None Site 11/14/2023 Brain Enhancing Lesions None 11/14/2023 Cervical Spine New T2 Lesions None 01/23/2023 Cervical Spine New T2 Lesions None 01/23/2023 Cervical spine enhancing lesions None 01/23/2023 Cervical spine enhancing lesions None 01/23/2023 MRI lumbar 11/14/23 The lower thoracic cord appears unremarkable without abnormal foci of T2 prolongation. Discogenic degenerative changes at L4-L5 and L5-S1 with annular fissures resulting in varying degrees of spinal stenosis, as described above. None. L4-5 is considered the level of the iliac crest and assume there are 5 lumbar-type vertebrae. last C spine MRI 01/23/23 Scattered intramedullary lesions compatible with the clinical history of multiple sclerosis. No new T2 intramedullary lesions and no new enhancing intramedullary lesions. No significant volume loss of the upper spinal cord for age. ASSESSMENT/PLAN: Natalie Jaquez is a 28 year old female with Multiple Sclerosis. Exam is: stable, virtual Continue Ocrevus for now Updated C and T spine MRI Patient is on Ocrevus 600 mg IV q 6 months, we will continue with this MS therapy as they are clinically stable and tolerating the medication well. I have reviewed the risks, benefits and alternatives of Ocrevus. Safety monitoring included: CBC with diff , CMP, IgG q 6 months Disease monitoring: Brain MRI annually MRI of the brain and/or spinal cord is being ordered to evaluate for efficacy of multiple sclerosis (MS) disease modifying therapy. Disease activity in MS is often not immediately detectable on history or examination, but is sensitively identified on MRI. If identified, new or active MS lesions on MRI may represent suboptimal response to MS therapy, and would change medical management. We reviewed infection control, especially good hand washing. We reviewed the importance of wellness including: healthy nutrition, regular exercise, stress management, no smoking and healthy sleep. , see after Diarrhea per patient, watery BM once a day, letter to Dr. Castro, She will reach out to her local GI doc, Dominic- rare SE of collagenous colitis bladder urgency - oxybutynin 10 mg XL po qd Ecoach, healthy nutrition ER for worsening PT ordered for pelvic floor, she declined states she is too busy PLAN: -- Appointment on 04/24/24 MRI CERVICAL SPINE WO/W IVCON MRI THORACIC SPINE WO/W IVCON CONSULT TO PHYSICAL THERAPY CONSULT TO ECOACHING WELLNESS CONSULT TO NUTRITION WELLNESS TUOLUMNE FOLLOW UP The chart was reviewed for possible participation in the following studies:None Patient Health Education Discussed at Visit: Aerobic exercise, Emotional Health/Wellness, Healthy Weight, and Need for PCP Follow-up: In 6 months at [place] with [facility] I spent a total of 30 minutes on the date of the service which included preparing to see the patient, [id number] patient care, completing clinical documentation, and obtaining and/or reviewing separately obtained history. I have communicated my name and active licensure. The patient's identity and physical location were verified at the time of this visit. Either the patient or their legal personnel representative has been informed of the risks and benefits of -- and alternatives to -- treatment through a remote evaluation and consents to proceed with the evaluation remotely. Autumn Barclay MD [facility] for Multiple Sclerosis documented in this encounter [facility] 03-18-2024 History of Presen t illness Narrative Reason for Appointment: Patient ID: Natalie Jaquez is a 28 y.o. female who presents for Well Women Visit Patient presents today for Annual Exam. MEDICATIONS Current Outpatient Medications Medication Instructions amphetamine-dextroamphetamine (Adderall) 30 MG tablet 30 mg, Oral, 2 times daily ARIPiprazole (ABILIFY) 15 mg, Oral, Daily cholecalciferol (Vitamin D-3) 50 MCG (1999) tablet 1 tablet, Oral, Every 24 hours dicyclomine (BENTYL) 20 mg, Oral, 4 times daily before meals and nightly ferrous sulfate 325 mg, Oral, 2 times daily levothyroxine (SYNTHROID, LEVOXYL) 75 mcg, Oral, Daily norgestimate-ethinyl estradiol (Ortho Tri-Cyclen,Trinessa) 0.18/0.215/0.25 MG-35 MCG tablet 1 tablet, Oral, Daily ocrelizumab (Ocrevus) 300 MG/10ML solution Intravenous, Yearly, Yearly for MS venlafaxine XR (EFFEXOR XR) 150 mg, Oral, Daily ALLERGIES Allergies Allergen Reactions Avonex [Interferon Beta-1a] Anaphylaxis Glatiramer Acetate Unknown Moxifloxacin Unknown PROBLEMS Active Ambulatory Problems Diagnosis Date Noted Acne vulgaris 03/28/2023 Adrenogenital disorder ([facility]/HCC) 04/12/2005 Anemia 01/13/2015 Chronic bilateral low back pain with bilateral sciatica 07/08/2014 Bipolar 1 disorder, depressed, mild ([facility]) 03/28/2023 Multiple sclerosis ([facility]) 04/24/2014 JEFF (generalized anxiety disorder) ([facility]) 03/28/2023 History of PCOS 10/05/2015 Adult hypothyroidism ([facility]) 03/28/2023 Iron deficiency anemia 01/15/2015 Irritable bowel syndrome 03/28/2023 Migraine without aura and without status migrainosus, not intractable ([facility]) 08/16/2015 Vitamin D deficiency 03/28/2023 Morbid obesity due to excess calories ([facility]) 09/18/2023 PCOS (polycystic ovarian syndrome) 09/18/2023 Insulin resistance 09/18/2023 Encounter for long-term (current) use of medications 09/18/2023 Resolved Ambulatory Problems Diagnosis Date Noted Bladder dysfunction 07/08/2014 Change in bowel habits 03/28/2023 Demyelinating changes in brain ([facility]) 12/01/2013 Exercise induced bronchospasm ([facility]) 02/08/2012 Frequent UTI 08/11/2015 Headache 01/20/2015 Memory disorder 08/11/2015 BMI 38.0-38.9,adult 03/28/2023 Proteinuria 03/28/2023 Acute non-recurrent pansinusitis 09/18/2023 Past Medical History: Diagnosis Date Bipolar affective disorder, currently depressed, mild ([facility]) Chronic migraine without aura without status migrainosus, not intractable ([facility]) Ear problems September 2022 Fatigue Gastritis Hypothyroid ([facility]) Irritable bowel syndrome with both constipation and diarrhea MS (multiple sclerosis) ([facility]) Pneumonia, bacterial Polycystic ovarian disease HISTORY PAST MEDICAL HISTORY SOCIAL HISTORY Past Medical History: Diagnosis Date Acne vulgaris Anemia Bipolar affective disorder, currently depressed, mild ([facility]) BMI 38.0-38.9,adult 03/28/2023 Chronic migraine without aura without status migrainosus, not intractable ([facility]) Ear problems September 2022 Fatigue JEFF (generalized anxiety disorder) ([facility]) Gastritis Hypothyroid ([facility]) Insulin resistance Iron deficiency anemia Irritable bowel syndrome with both constipation and diarrhea MS (multiple sclerosis) ([facility]) PCOS (polycystic ovarian syndrome) Pneumonia, bacterial Polycystic ovarian disease Proteinuria 03/28/2023 Vitamin D deficiency Social History Tobacco Use Smoking status: Never Smokeless tobacco: Never Substance Use Topics Alcohol use: Not Currently Comment: caffeine intake: 1-2 cups per day. Drug use: Never FAMILY HISTORY Family History Problem Relation Name Age of Onset COPD Mother Cintia Jaquez Thyroid disease Mother Cintia Jaquez Hypertension Mother Cintia Dayarato Crohn's disease Mother Cintia Dayaravaihd Diabetes Father Blake Commarato Cancer Maternal Grandmother Andreina Herajani COPD Maternal Grandfather Cancer Paternal Grandmother SURGICAL HISTORY Past Surgical History: Procedure Laterality Date CHOLECYSTECTOMY EGD PILONIDAL CYST DRAINAGE TONSILLECTOMY REVIEW OF SYSTEMS Review of Systems: Review of Systems Constitutional: Negative. HENT: Negative. Eyes: Negative. Respiratory: Negative. Cardiovascular: Negative. Gastrointestinal: Negative. Genitourinary: Negative. Musculoskeletal: Negative. Skin: Negative. Neurological: Negative. All other systems reviewed and are negative. Hematological: Negative. Endocrine: Negative. Allergic/Immunologic: Negative. OBJECTIVE Objective: Physical Exam Constitutional: Appearance: Normal appearance. She is well-developed. Genitourinary: Vulva normal. Right Adnexa: not tender and no mass present. Left Adnexa: not tender and no mass present. No cervical discharge. Breasts: Breasts are soft. Right: Normal. Left: Normal. HENT: Head: Normocephalic. Nose: Nose normal. Mouth/Throat: Mouth: Mucous membranes are moist. Cardiovascular: Rate and Rhythm: Normal rate and regular rhythm. Pulmonary: Effort: Pulmonary effort is normal. Breath sounds: Normal breath sounds. Abdominal: General: Bowel sounds are normal. There is no distension. Palpations: Abdomen is soft. Tenderness: There is no abdominal tenderness. There is no guarding or rebound. Musculoskeletal: General: No swelling. Normal range of motion. Cervical back: Normal range of motion. Right lower leg: No edema. Left lower leg: No edema. Neurological: General: No focal deficit present. Mental Status: She is alert and oriented to person, place, and time. Skin: General: Skin is warm and dry. Psychiatric: Mood and Affect: Mood normal. Behavior: Behavior normal. Vitals and nursing note reviewed. Exam conducted with a gutter installer present. Vitals: Estimated body mass index is 44.61 kg/m as calculated from the following: Height as of this encounter: 5' 6 . Weight as of this encounter: 276 lb 6.4 oz. BP: 120/70 No LMP recorded (within months). ASSESSMENT & PLAN ICD-10-CM 1. Well woman exam with routine gynecological exam Z01.419 Pap Smear 2. PCOS (polycystic ovarian syndrome) E28.2 Annual Exam: Patient presents today for an annual exam. Patient states she is doing well. Pap was obtained without difficulty. Patient did want to discuss the PCOS and she is starting to think about starting a family and that we will start her on the Metformin on this and she will continue on the control at this time. She will schedule a fertility appointment with Dr Rae although states she will continue her control at this time. She has tolerated metformin in the past and would like to restart.until s Follow Up: Patient is to return in one year for annual unless needed otherwise. Documented by Ambreen Barnett LPN on behalf of: LEONIE Ca documented in this encounter [facility] 03-18-2024 History of Presen t illness Narrative Associated Problem(s): Multiple sclerosis (CMS/HCC) No change and follow up with neurology. Use adderall for fatigue. Associated Problem(s): Migraine without aura and without status migrainosus, not intractable (CMS/HCC) CHERRY stable and use OTC PRN. Associated Problem(s): Irritable bowel syndrome Symptoms stable and continue high fiber diet. Use bentyl PRN for cramping. Associated Problem(s): JEFF (generalized anxiety disorder) (CMS/HCC) Occasional symptoms but tolerable with medication and continue. Associated Problem(s): Bipolar 1 disorder, depressed, mild (CMS/HCC) Occasional symptoms but tolerable with medication and continue. Images from the original note were not included. Subjective Patient ID: Natalie Jaquez is a 28 y.o. female who presents for Follow-up (6m/Change adhd med) and Hypertension (Bp running high). Follow up bipolar, anxiety, MS, and IBS. Bipolar stable today. Mild symptoms and at times down, sad, and no motivation. Occasionally not want to do anything or be around others. No liam and not hyper or full of energy. Anxiety stable. Not as stressed out or overwhelmed. Not as nervous or worry as much. Not as ashley or irritable. IBS stable. Occasional cramping and discomfort. Normal BM and no diarrhea or constipation. Uses bentyl PRN which helps. MS unchanged. No weakness or focal deficits. Continues to have fatigue but adderall helps. Recently not able to get adderall and worsening fatigue. Following with neurology and on Ocrevus. Migraines stable. CHERRY 1-2 times a month. Throbbing pain in entire head associated with photophobia, phonophobia and nausea. Uses OTC or fioricet PRN which helps. Hypertension Pertinent negatives include no chest pain, palpitations or shortness of breath. Review of Systems Respiratory: Negative for cough, shortness of breath and wheezing. Cardiovascular: Negative for chest pain and palpitations. Gastrointestinal: Negative for abdominal pain, diarrhea, nausea and vomiting. Genitourinary: Negative for dysuria. Objective Physical Exam Constitutional: General: She is not in acute distress. Appearance: Normal appearance. HENT: Head: Normocephalic. Right Ear: Tympanic membrane normal. Left Ear: Tympanic membrane normal. Eyes: Extraocular Movements: Extraocular movements intact. Pupils: Pupils are equal, round, and reactive to light. Cardiovascular: Rate and Rhythm: Normal rate and regular rhythm. Heart sounds: No murmur heard. No friction rub. No gallop. Pulmonary: Effort: Pulmonary effort is normal. Breath sounds: Normal breath sounds. No wheezing, rhonchi or rales. Abdominal: General: Bowel sounds are normal. There is no distension. Palpations: Abdomen is soft. Tenderness: There is no abdominal tenderness. There is no guarding or rebound. Musculoskeletal: Cervical back: Neck supple. Right lower leg: No edema. Left lower leg: No edema. Neurological: Mental Status: She is alert. Assessment/Plan Problem List Items Addressed This Visit Bipolar 1 disorder, depressed, mild (CMS/HCC) - Primary Occasional symptoms but tolerable with medication and continue. Multiple sclerosis (CMS/HCC) No change and follow up with neurology. Use adderall for fatigue. Relevant Medications amphetamine-dextroamphetamine (Adderall) 30 MG tablet JEFF (generalized anxiety disorder) (CMS/HCC) Occasional symptoms but tolerable with medication and continue. Irritable bowel syndrome Symptoms stable and continue high fiber diet. Use bentyl PRN for cramping. Migraine without aura and without status migrainosus, not intractable (CMS/HCC) CHERRY stable and use OTC PRN. documented in this encounter [facility] 02-19-2024 Note HNO ID: [id number] Author: MARIELLE GANNON APRN.HAND ETCHER HELPER Service: ? Author Type: Nurse Practitioner Type: [...] Medications: Baclofen, tylenol, aleve Prevoiusly on: medrol aslma, methocarbanol Physical Therapy: stretching HEP, none formal History of Spine Injections/Surgery: None Hx: bipolar, MS, morbid obesity CC: back and leg I have communicated my name and active licensure. The patient's identity and physical location were verified at the time of this visit. Either the patient or their legal personnel representative has been informed of the risks [...] 500 mg table (more content not included)... [facility] 02-19-2024 History of Presen t illness Narrative [...] visit. Either the patient or their legal personnel representative has been informed of the risks [...] or recent MRSA infections. OBJECTIVE: PHYSICAL EXAM [facility] 08/29/2023 (Exact Date) GENERAL APPEARANCE: overweight/obese SKIN: [...] which included preparing to see the patient, asrq-aj-xeql patient care, completing clinical documentation, obtaining and/or reviewing separately obtained history, and counseling and educating the patient/family/caregiver. documented in this encounter [facility] 12-29-2023 Note HNO ID: [id number] Author: MARIELLE GANNON APRN.VEENA Service: ? Author Type: Nurse Practitioner Type: [...] MOUTH EVERY DAY (more content not included)... [facility] 12-29-2023 History of Presen t illness [...] Making: Level: 4 - Moderate SIGNATURE: Marielle Gannon APRN.CNP PATIENT NAME: Natalie Jaquez DATE: December 29, 2023 TIME: 1:37 PM documented in this encounter [facility] 11-14-2023 History of Presen t illness Narrative [...] TIME: 1:21 PM documented in this encounter [facility] 11-14-2023 Note HNO ID: [id number] Author: DENISE RENO RN Service: Radiology Author [...] DATE: November 14, 2023 TIME: 1:21 PM [facility] 10-31-2023 Miscellaneous Notes Noted patient's reply, routing to Yoly Miller CNP to update. Brandy Pascal RN documented in this encounter [facility] 08-29-2023 Note HNO ID: [id number] Author: YOLY MILLER APRN.CNP Service: ? Author Type: Nurse Practitioner Type: Progress Notes Filed: 08/29/2023 09:49 Note Text: [facility] FOLLOWUP/ESTABLISHED PATIENT VISIT PRINCIPAL NEUROLOGIC DIAGNOSIS: Multiple [...] 2022. 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 Reports BLE spasms. Is taking Baclofen 10mg QHS. Does endorse adequate water intake. Mood: Not bad Spasticity: See HPI Bladder: urgency, incontinence- more at night. Wears pad Bowel: Normal Pain related to today's visit:reviewed on nursing intake documentation Fatigue: Tolerable Sleep: Ok, naps occasionally Memory/Concentration: Losing train of thought Neuro-QoL Functions (higher=better functioning) Flowsheet [facility] Office Visit from 09/02/2022 in [facility] Appointment from 01/31/2022 in [facility] from 08/03/2021 in [facility] Upper Extremity Domain T Score 39 57 57 Lower Extremity Domain T Score 44 50 49 Cognitive Function Domain T Score 44 43 50 Positive Affect Well Being T Score -- -- -- Ability To Participate In Social Roles T Score 45 52 41 Satisfaction With Social Roles T Score 40 42 36 Neuro-QoL Symptoms (higher=worse symptoms) Flowsheet [facility] Office Visit from 09/02/2022 in [facility] Appointment from 01/31/2022 in [facility] from 08/03/2021 in [facility] Sleep Domain T Score 60 59 61 [...] ferrous sulfate, norgestimate-ethinyl estradiol, and levothyroxine. EXAM: [facility] 09/02/2022 (Exact Date) Multiple Sclerosis Performance Test Flowsheet [facility] Office Visit from 12/04/2020 in [facility] Office Visit from 10/05/2017 in [facility] Processing Speed Total Number Correct 59 70 [...] ROMAN Facial s (more content not included)... [facility] 08-29-2023 History of Presen t illness Narrative Images from the original note were not included. [facility] FOLLOWUP/ESTABLISHED PATIENT VISIT PRINCIPAL NEUROLOGIC DIAGNOSIS: Multiple [...] 2022. 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 Reports BLE spasms. Is taking Baclofen 10mg QHS. Does endorse adequate water intake. Mood: Not bad Spasticity: See HPI Bladder: urgency, incontinence- more at night. Wears pad Bowel: Normal Pain related to today's visit:reviewed on nursing intake documentation Fatigue: Tolerable Sleep: Ok, naps occasionally Memory/Concentration: Losing train of thought Neuro-QoL Functions (higher=better functioning) Flowsheet [facility] Office Visit from 09/02/2022 in [facility] Appointment from 01/31/2022 in [facility] from 08/03/2021 in [facility] Upper Extremity Domain T Score 39 57 57 Lower Extremity Domain T Score 44 50 49 Cognitive Function Domain T Score 44 43 50 Positive Affect Well Being T Score -- -- -- Ability To Participate In Social Roles T Score 45 52 41 Satisfaction With Social Roles T Score 40 42 36 Neuro-QoL Symptoms (higher=worse symptoms) Flowsheet [facility] Office Visit from 09/02/2022 in [facility] Appointment from 01/31/2022 in [facility] from 08/03/2021 in [facility] Sleep Domain T Score 60 59 61 [...] ferrous sulfate, norgestimate-ethinyl estradiol, and levothyroxine. EXAM: [facility] 09/02/2022 (Exact Date) Multiple Sclerosis Performance Test Flowsheet [facility] Office Visit from 12/04/2020 in [facility] Office Visit from 10/05/2017 in [facility] Processing Speed Total Number Correct 59 70 [...] 5 Biceps 5 5 Triceps 5 5 Loin Trimmer 5 5- Dorsal interossei 5 5- Lower [...] D supplementation Follow-up: In 1 year at [place] with [facility] APC I spent a total of 35 minutes on the date of the service which included preparing to see the patient, gywu-fy-tdut patient care, completing clinical documentation, obtaining and/or reviewing separately obtained history, performing a medically appropriate examination, counseling and educating the patient/family/caregiver, and ordering medications, tests, or procedures. Yoly Miller APRN.[facility] documented in this encounter [facility] 04-08-2023 Evaluation note Encounter Date Diagnosis Assessment [...] Acute bronchitis home care material was printed [employer] Other 07-08-2023 Evaluation note* Encounter Date Diagnosis [...] no improvement in 2 to 3 days [employer] Other 07-03-2023 History of Present illness Narrative* RT Noah(R) - 01/23/2023 2:30 PM EDT Radiology Service [...] 2023 TIME: 2:48 PM [facility]* Encounter Date Diagnosis Assessment Notes [...] for fever/discomfort, cool mist humidifier. May use Argyle as needed for cough, do not take any other OTCs while using Argyle. Patient to follow up with PCP in 2-3 days. Immediate eval if SOB, difficulty breathing, chest pain, dizziness, or other concerning symptoms. Patient verbalizes understanding and is agreeable to treatment plan. [employer] Other [id number] History of Present illness Narrative* Sammie Galindo Research Coordinator - 09/12/2022 3:18 PM EST Retroactive MS SmartForm Completion -Sammie Galindo Research Coordinator documented [facility] Instructions* Patient Instructions* Yoly Miller APRN.CNP - 09/02/2022 2:58 PM EST -Can consider Provigil or Nuvigil for MS fatigue documented in this encounterPro[facility] History of Present illness Narrative* Yoly Miller APRN.CNP - 09/02/2022 2:29 PM EST Images from the original note were not included. [facility] FOLLOWUP/ESTABLISHED PATIENT VISIT PRINCIPAL NEUROLOGIC DIAGNOSIS: Multiple [...] modifying therapy INTERVAL HISTORY: Usual treating team: Rd The patient was last seen 08/03/21, currently taking Ocrevus. Tolerating Ocrevus without difficulty. 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 coming in several days per week to [...] of thought Neuro-QoL Functions (higher=better functioning) Flowsheet [facility] Office Visit from 09/02/2022 in [facility] Appointment from 01/31/2022 in [facility] from 08/03/2021 in [facility] Upper Extremity Domain T Score 39 57 57 Lower Extremity Domain T Score 44 50 49 Cognitive Function Domain T Score 44 43 50 Positive Affect Well Being T Score -- -- -- Ability To Participate In Social Roles T Score 45 52 41 Satisfaction With Social Roles T Score 40 42 36 Neuro-QoL Symptoms (higher=worse symptoms) Flowsheet [facility] Office Visit from 09/02/2022 in [facility] Appointment from 01/31/2022 in [facility] from 08/03/2021 in [facility] Sleep Domain T Score 60 59 61 [...] ferrous sulfate, norgestimate-ethinyl estradiol, and levothyroxine. EXAM: [facility] 08/22/2015 Multiple Sclerosis Performance Test Flowsheet [facility] Office Visit from 12/04/2020 in [facility] Office Visit from 10/05/2017 in [facility] Processing Speed Total Number Correct 59 70 [...] 5 Biceps 5 5 Triceps 5 5 Loin Trimmer 5 5 Dorsal interossei 5 5 Lower [...] of MS symptoms. Discussed asking SW with RETIREMENT VILLAGE MANAGER, whatother resources she and her mom would [...] D supplementation Follow-up: In 1 year at [facility] I spent a total of 40 minutes on the date of the service which included preparing to see the patient, pwhw-sm-cgjr patient care, completing clinical documentation, obtaining and/or reviewing separately obtained history, performing a medically appropriate examination, counseling and educating the pat ient/family/caregiver, and ordering medications, tests, or procedures. Yoly Miller APRN.VEENA [facility] documented in this encounterPro[facility]01-04-[facility] Evaluation note* Encounter Date Diagnosis Assessment Notes [...] days. Jul, Sore throat (ICD-10 - J02.9) [employer] Other 11-30-2022 NoteOPERATIVE NOTE OPERATION DATE: 06/22/2022 PREOPERATIVE DIAGNOSIS: Change in bowel habits with frequent loose stools, rectal bleeding and abdominal pain, family history of Crohn's disease. POSTOPERATIVE DIAGNOSIS: Normal colonoscopy to terminal ileum with biopsy of terminal ileum and sigmoid colon random biopsies. PROCEDURE: Colonoscopy to terminal ileum. SURGEON: Yusuf Castro M.D. ANESTHESIA: Monitored anesthesia care. ESTIMATED BLOOD [...] screening beginning at age 45. CC: Jayme Schmidt M.D.[facility] [id number] NoteChief Complaint consultation for abdominal pain, bowel changes and defecation urgency HPI Staff 26 year old female presents on consultation from Dr. Schmidt for abdominal cramping and possible IBS. Reports [...] of pilonidal cyst, Tonsil (more content not included)...[facility] SystemComment on above:Result Comment: Electronically Signed By: Yusuf CASTRO MD\Date and Time Signed: 05/24/22 15:03 [id number] History of Present illness Narrative* Yusuf Alfaro, RT(R) - 2021 11:00 AM EDT Radiology Service [...] Exam(s) Completed: Head: Multiple Sclerosis SIGNATURE: RT Noah(R) PATIENT NAME: Natalie Jaquez DATE: 2021 TIME: 11:08 AM documented in this encounterProtest[facility]01-13-2022 NotePatient Education Materials Name: Natalie Jaquez Current Date: 08/05/2021 15:19:24 [place] : 1995 The following sheet(s) are the [...] a bandana, T-shirt, or other cloth. The [facility] has instructions on how to make a [...] bandana, T- shirt, or other cloth. The CDC has instructions [...] caffeine, juices, tea, and soup. ? Taking tbmj-yoo-poetviz (OTC) pain medicine. These are used to [...] ? Wear protective clot (more content not included)...[facility]01-13-2022 NoteThis is a Telephone Appointment *This visit [...] or wheezing. She has been taken Tylenol laly-cgc-ddlitna for symptom management. Review of Systems Constitutional: [...] infection Continue to treat your symptoms with zrox-cyo-hjmnpyj medication. Drink plenty of fluids and take [...] to 2 mg at night Vitamin D3 [id number] u/day Optional: Famotidine 20-40 mg/day (for reflux/stomach [...] Positive 08/05/2021 14:53 EST Electronically signed by Lakeisha Paulino 08/05/21 15:12 [facility]08-20-2021 NotePatient Education Materials Name: Natalie Jaquez Current Date: 03/12/2021 16:03:51 [facility] : 1995 The following sheet(s) are [...] secretions in the nose and lungs. ? Cjvr-tli-nrehvty cold medicines will not shorten the length of time you?re sick, but they may be helpful for the following symptoms: cough, sore throat, and nasal and sinus congestion. If you take prescription medicines, ask your healthcare provider or pharmacist which sice-emd-jodevqt medicines are safe to use. (Note: Don't [...] goes along with a muffled voice ? [employer]. [address] [place] [address]. All rights reserved. This information is not intended as a substitute for professional medical care. Always follow your healthcare professional's instructions.[facility]08-20-2021 NoteProcedure: Upright PA and lateral views of [...] Is Signed, Electronically Signed in Other Vendor System)[facility]08-02-2021 NotePatient Education Materials Name: Natalie Jaquez Current Date: 02/22/2021 17:09:41 [facility] : 1995 The following sheet(s) are the Patient Education Leaflets for Natalie Jaquez Ambulatory Giulia Skin Infection (Adult) Giulia is [...] taking part in activities with lots of zysg-hv-fffv contact can also put you at risk. [...] or as directed by your provider ? [employer] [address] [place] [id number]. All rights reserved. This information is not [...] 30 g, 0 Refill(s), 03/08/21 17:05:00 EDT,Pharmacy: [id number] Plan note No data available for this section General Surgery [place] Evaluation note* Diagnosis Multiple sclerosis (HCC)- Primary [facility] Multiple [facility] (HCC) Multiple sclerosis Encounter for long-term (current) use of medications Encounter for long-term (current) use of other medications [facility] Multiple [facility] (HCC)- Primary Multiple [facility] Diagnosis Multiple sclerosis (HCC)- Primary Multiple sclerosis Encounter for long-term (current) use of medications Encounter for long-term (current) use of other medications [facility] Multiple [facility] (HCC)- Primary Multiple [facility] Diagnosis Multiple sclerosis (HCC) Multiple sclerosis Encounter for long-term (current) use of medications Encounter for long-term (current) use of other medications [facility] Diagnosis Spinal stenosis of lumbar region without neurogenic claudication- Primary Spinal stenosis, lumbar region, without neurogenic claudication Multiple sclerosis (HCC) [facility] Multiple [facility] (HCC) [facility] Diagnosis Spinal stenosis of lumbar region without neurogenic claudication Spinal stenosis, lumbar region, without neurogenic claudication [facility]* Diagnosis Onset Date Resolution Status Bronchitis noneactive [facility] Work Phone: evaluation note* Diagnosis Onset Date Resolution Status Bronchitis noneactive Bronchitis acute [facility] Work Phone: [email or web address] note* Diagnosis Radiculopathy, lumbar region- Primary Thoracic or lumbosacral neuritis or radiculitis, unspecified Spinal stenosis, lumbar region, without neurogenic claudication Lumbar spondylosis Lumbosacral spondylosis without myelopathy Multiple sclerosis (HCC) [facility] ([facility])- Primary [facility] sclerosis [facility] Diagnosis Radiculopathy, lumbar region- Primary Thoracic or lumbosacral neuritis or radiculitis, unspecified Lumbar spondylosis Lumbosacral spondylosis without myelopathy [facility]* Diagnosis Chronic fatigue syndrome- Primary Multiple sclerosis (HCC) [facility] Diagnosis Bipolar 1 disorder, depressed, mild (CMS/HCC)- Primary JEFF (generalized anxiety disorder) (CMS/HCC) Generalized anxiety disorder Multiple sclerosis (CMS/HCC) Multiple sclerosis Irritable bowel syndrome with both constipation and diarrhea Insulin resistance Other abnormal glucose Vitamin D deficiency Adult hypothyroidism (CMS/HCC) Unspecified hypothyroidism Encounter for long-term (current) use of medications Encounter for long-term (current) use of other medications Iron deficiency anemia, unspecified iron deficiency anemia type Migraine without aura and without status migrainosus, not intractable (CMS/HCC) Acute non-recurrent pansinusitis Morbid obesity due to excess calories (CMS/HCC) Body mass index [BMI] 40.0-44.9, adult (Z68.41) PCOS (polycystic ovarian syndrome) Polycystic ovaries Bipolar 1 disorder, depressed, mild (CMS/HCC)- Primary JEFF (generalized anxiety disorder) (CMS/HCC) Generalized anxiety disorder Migraine without aura and without status migrainosus, not intractable (CMS/HCC) Multiple sclerosis (CMS/HCC) Multiple sclerosis Irritable bowel syndrome with both constipation and diarrhea Multiple sclerosis (CMS/HCC) [facility] Bipolar 1 disorder, depressed, mild (CMS/HCC)- Primary JEFF (generalized anxiety disorder) (CMS/HCC) Generalized anxiety disorder Multiple sclerosis (CMS/HCC) Multiple sclerosis Irritable bowel syndrome with both constipation and diarrhea Insulin resistance Other abnormal glucose Vitamin D deficiency Adult hypothyroidism (CMS/HCC) Unspecified hypothyroidism Encounter for long-term (current) use of medications Encounter for long-term (current) use of other medications Iron deficiency anemia, unspecified iron deficiency anemia type Migraine without aura and without status migrainosus, not intractable (CMS/HCC) Acute non-recurrent pansinusitis Morbid obesity due to excess calories (CMS/HCC) Body mass index [BMI] 40.0-44.9, adult (Z68.41) PCOS (polycystic ovarian syndrome) Polycystic ovaries Bipolar 1 disorder, depressed, mild (CMS/HCC)- Primary JEFF (generalized anxiety disorder) (CMS/HCC) Generalized anxiety disorder Migraine without aura and without status migrainosus, not intractable (CMS/HCC) Multiple sclerosis (CMS/HCC) Multiple sclerosis Irritable bowel syndrome with both constipation and diarrhea PCOS (polycystic ovarian syndrome) Polycystic ovaries [facility] Diagnosis Bipolar 1 disorder, depressed, mild (CMS/HCC)- Primary JEFF (generalized anxiety disorder) (CMS/HCC) Generalized anxiety disorder Multiple sclerosis (CMS/HCC) Multiple sclerosis Irritable bowel syndrome with both constipation and diarrhea Insulin resistance Other abnormal glucose Vitamin D deficiency Adult hypothyroidism (CMS/HCC) Unspecified hypothyroidism Encounter for long-term (current) use of medications Encounter for long-term (current) use of other medications Iron deficiency anemia, unspecified iron deficiency anemia type Migraine without aura and without status migrainosus, not intractable (CMS/HCC) Acute non-recurrent pansinusitis Morbid obesity due to excess calories (CMS/HCC) Body mass index [BMI] 40.0-44.9, adult (Z68.41) PCOS (polycystic ovarian syndrome) Polycystic ovaries Bipolar 1 disorder, depressed, mild (CMS/HCC)- Primary JEFF (generalized anxiety disorder) (CMS/HCC) Generalized anxiety disorder Migraine without aura and without status migrainosus, not intractable (CMS/HCC) Multiple sclerosis (CMS/HCC) Multiple sclerosis Irritable bowel syndrome with both constipation and diarrhea Chronic mastoiditis, left- Primary Other specified hearing loss of left ear, unspecified hearing status on contralateral side Bilateral impacted cerumen Impacted cerumen [facility] Diagnosis Bipolar 1 disorder, depressed, mild (CMS/HCC)- Primary JEFF (generalized anxiety disorder) (CMS/HCC) Generalized anxiety disorder Multiple sclerosis (CMS/HCC) Multiple sclerosis Irritable bowel syndrome with both constipation and diarrhea Insulin resistance Other abnormal glucose Vitamin D deficiency Adult hypothyroidism (CMS/HCC) Unspecified hypothyroidism Encounter for long-term (current) use of medications Encounter for long-term (current) use of other medications Iron deficiency anemia, unspecified iron deficiency anemia type Migraine without aura and without status migrainosus, not intractable (CMS/HCC) Acute non-recurrent pansinusitis Morbid obesity due to excess calories (CMS/HCC) Body mass index [BMI] 40.0-44.9, adult (Z68.41) PCOS (polycystic ovarian syndrome) Polycystic ovaries Bipolar 1 disorder, depressed, mild (CMS/HCC)- Primary JEFF (generalized anxiety disorder) (CMS/HCC) Generalized anxiety disorder Migraine without aura and without status migrainosus, not intractable (CMS/HCC) Multiple sclerosis (CMS/HCC) Multiple sclerosis Irritable bowel syndrome with both constipation and diarrhea Bipolar 1 disorder, depressed, mild (CMS/HCC)- Primary JEFF (generalized anxiety disorder) (CMS/HCC) Generalized anxiety disorder Multiple sclerosis (CMS/HCC) Multiple sclerosis Irritable bowel syndrome with diarrhea Irritable bowel syndrome Class 3 severe obesity due to excess calories without serious comorbidity with body mass index (BMI) of 40.0 to 44.9 in adult (CMS/HCC) [facility] Diagnosis Bipolar 1 disorder, depressed, mild (CMS/HCC)- Primary JEFF (generalized anxiety disorder) (CMS/HCC) Generalized anxiety disorder Multiple sclerosis (CMS/HCC) Multiple sclerosis Irritable bowel syndrome with both constipation and diarrhea Insulin resistance Other abnormal glucose Vitamin D deficiency Adult hypothyroidism (CMS/HCC) Unspecified hypothyroidism Encounter for long-term (current) use of medications Encounter for long-term (current) use of other medications Iron deficiency anemia, unspecified iron deficiency anemia type Migraine without aura and without status migrainosus, not intractable (CMS/HCC) Acute non-recurrent pansinusitis Morbid obesity due to excess calories (CMS/HCC) Body mass index [BMI] 40.0-44.9, adult (Z68.41) PCOS (polycystic ovarian syndrome) Polycystic ovaries Bipolar 1 disorder, depressed, mild (CMS/HCC)- Primary JEFF (generalized anxiety disorder) (CMS/HCC) Generalized anxiety disorder Migraine without aura and without status migrainosus, not intractable (CMS/HCC) Multiple sclerosis (CMS/HCC) Multiple sclerosis Irritable bowel syndrome with both constipation and diarrhea Bipolar 1 disorder, depressed, mild (CMS/HCC)- Primary JEFF (generalized anxiety disorder) (CMS/HCC) Generalized anxiety disorder Multiple sclerosis (CMS/HCC) Multiple sclerosis Irritable bowel syndrome with diarrhea Irritable bowel syndrome Class 3 severe obesity due to excess calories without serious comorbidity with body mass index (BMI) of 40.0 to 44.9 in adult (CMS/HCC) Encounter for weight management documented in this encounter [facility]* Diagnosis Multiple sclerosis (CMS/HCC) Multiple sclerosis documented in this encounter [facility]* Diagnosis Bipolar 1 disorder, depressed, mild (CMS/HCC)- Primary JEFF (generalized anxiety disorder) (CMS/HCC) Generalized anxiety disorder Migraine without aura and without status migrainosus, not intractable (CMS/HCC) Multiple sclerosis (CMS/HCC) Multiple sclerosis Irritable bowel syndrome with both constipation and diarrhea documented in this encounter [facility]* Diagnosis Well woman exam with routine gynecological exam Routine gynecological examination PCOS (polycystic ovarian syndrome) Polycystic ovaries documented in this encounter [facility]* Diagnosis Multiple sclerosis (CMS/HCC) Multiple sclerosis documented in this encounter [facility]* Diagnosis Multiple sclerosis (HCC)- Primary Multiple sclerosis [facility] Multiple [facility] (HCC) [facility] Diagnosis Relapsing remitting multiple sclerosis (HCC)- Primary Multiple sclerosis [facility] Diagnosis Bipolar 1 disorder, depressed, mild (CMS/HCC)- Primary JEFF (generalized anxiety disorder) (CMS/HCC) Generalized anxiety disorder Multiple sclerosis (CMS/HCC) Multiple sclerosis Irritable bowel syndrome with both constipation and diarrhea Insulin resistance Other abnormal glucose Vitamin D deficiency Adult hypothyroidism (CMS/HCC) Unspecified hypothyroidism Encounter for long-term (current) use of medications Encounter for long-term (current) use of other medications Iron deficiency anemia, unspecified iron deficiency anemia type Migraine without aura and without status migrainosus, not intractable (CMS/HCC) Acute non-recurrent pansinusitis Morbid obesity due to excess calories (CMS/HCC) Body mass index [BMI] 40.0-44.9, adult (Z68.41) PCOS (polycystic ovarian syndrome) Polycystic ovaries Bipolar 1 disorder, depressed, mild (CMS/HCC)- Primary JEFF (generalized anxiety disorder) (CMS/HCC) Generalized anxiety disorder Migraine without aura and without status migrainosus, not intractable (CMS/HCC) Multiple sclerosis (CMS/HCC) Multiple sclerosis Irritable bowel syndrome with both constipation and diarrhea Bipolar 1 disorder, depressed, mild (CMS/HCC)- Primary JEFF (generalized anxiety disorder) ([facility]/HCC) Generalized anxiety disorder Multiple sclerosis ([facility]/HCC) Multiple sclerosis Irritable bowel syndrome with diarrhea Irritable bowel syndrome Class 3 severe obesity due to excess calories without serious comorbidity with body mass index (BMI) of 40.0 to 44.9 in adult ([facility]) Bipolar 1 disorder, depressed, mild ([facility])- Primary JEFF (generalized anxiety disorder) ([facility]) Generalized anxiety disorder Multiple sclerosis ([facility]) Multiple sclerosis Tinea pedis, unspecified laterality Class 3 severe obesity due to excess calories without serious comorbidity with body mass index (BMI) of 40.0 to 44.9 in adult ([facility]) [facility] Diagnosis Bipolar 1 disorder, depressed, mild ([facility])- Primary JEFF (generalized anxiety disorder) ([facility]) Generalized anxiety disorder Multiple sclerosis ([facility]) Multiple sclerosis Irritable bowel syndrome with both constipation and diarrhea Insulin resistance Other abnormal glucose Vitamin D deficiency Adult hypothyroidism ([facility]) Unspecified hypothyroidism Encounter for long-term (current) use of medications Encounter for long-term (current) use of other medications Iron deficiency anemia, unspecified iron deficiency anemia type Migraine without aura and without status migrainosus, not intractable ([facility]) Acute non-recurrent pansinusitis Morbid obesity due to excess calories ([facility]) Body mass index [BMI] 40.0-44.9, adult (Z68.41) PCOS (polycystic ovarian syndrome) Polycystic ovaries Bipolar 1 disorder, depressed, mild ([facility])- Primary JEFF (generalized anxiety disorder) ([facility]) Generalized anxiety disorder Migraine without aura and without status migrainosus, not intractable ([facility]) Multiple sclerosis ([facility]) Multiple sclerosis Irritable bowel syndrome with both constipation and diarrhea Bipolar 1 disorder, depressed, mild ([facility])- Primary JEFF (generalized anxiety disorder) ([facility]) Generalized anxiety disorder Multiple sclerosis ([facility]/HCC) Multiple sclerosis Irritable bowel syndrome with diarrhea Irritable bowel syndrome Class 3 severe obesity due to excess calories without serious comorbidity with body mass index (BMI) of 40.0 to 44.9 in adult ([facility]) Bipolar 1 disorder, depressed, mild ([facility])- Primary JEFF (generalized anxiety disorder) ([facility]) Generalized anxiety disorder Multiple sclerosis (CMS/HCC) Multiple sclerosis Tinea pedis, unspecified laterality Class 3 severe obesity due to excess calories without serious comorbidity with body mass index (BMI) of 40.0 to 44.9 in adult (CMS/HCC) Weight gain Other symptoms concerning nutrition, metabolism, and development Encounter for weight management [facility] - Reported* Type Description Date Medical History Esophageal reflux Medical History Multiple sclerosis Medical History Polycystic ovarian disease Medical History Hypothyroid Medical History depression Medical History Anxiety Surgical History tonsillectomy Surgical History cholecystectomy Hospitalization History see above [employer] Other Hospital Discharge instructions No data available for this section General Surgery [email or web address] Progress note No data available for this section General Surgery [email or web address] Reason for Referral Specialty Diagnoses / Procedures Referred By Deedee edwards Referred To Contact MR IMAGING Diagnoses Multiple sclerosis (HCC) Encounter for long-term (current) use of medications Procedures MRI BRAIN WO/W IVCON MRI BRAIN PALLAVIO Autumn Barclay MD [address] [place] [address] Mr Imaging Referral ID Status Reason Start Date Expiration Date V isits Requested Visits Authorized [id number] Closed Auto-Generate d Referral 10/25/2021 07/23/2022 1 1 Specialty Diagnoses / Procedures Referred By Deedee edwards Referred To Contact [facility] IMAGING Diagnoses Multiple sclerosis (HCC) Encounter for long-term (current) use of medications Procedures MRI CERVICAL SPINE WO/W IVCON MRI SPINAL CANAL CERVICAL W/O & W/CONTR MATRL Yoly Miller, PLASTIC TOOL MAKER.HAND ETCHER HELPER [address] [place] [address] Mr Imaging Referral ID Status Reason Start Date Expiration Date Visits Requested Visits Authorized [id number] Pending Review Auto-Generat ed Referral 09/02/2022 10/02/2023 1 1 Specialty Diagnoses / Procedures Referred By Deedee edwards Referred To Contact [facility] IMAGING Diagnoses Multiple sclerosis (HCC) Encounter for long-term (current) use of medications Procedures MRI BRAIN WO/W IVCON MRI BRAIN BRAIN STEM W/O W/CONTRAST MATERIAL Yoly Miller, PLASTIC TOOL MAKER.HAND ETCHER HELPER [address] [place] [address] Mr Imaging Referral ID Status Reason Start Date Expiration Date Visits Requested Visits Authorized [id number] Pending Review Auto-Generat ed Referral 09/02/2022 10/02/2023 1 1 Referral ID Status Reason Start Date Expiration Date V isits Requested Visits Authorized [id number] Closed Auto-Generate d Referral 01/04/2023 07/23/2023 1 1 Referral ID Status Reason Start Date Expiration Date V isits Requested Visits Authorized [id number] Closed Auto-Generate d Referral 01/04/2023 07/23/2023 1 1 Specialty Diagnoses / Procedures Referred By Contac t Referred To Contact MR IMAGING Diagnoses Spinal stenosis of lumbar region without neurogenic claudication Procedures MRI LUMBAR SPINE WO IVCON MRI SPINAL CANAL LUMBAR W/O CONTRAST MATERIAL Yoly iMller, PLASTIC TOOL MAKER.HAND ETCHER HELPER [address] [id number] Mr Imaging [place] [address] Referral ID Status Reason Start Date Expiration Date Visits Requested Visits Authorized [id number] Pending Review Auto-Generat ed Referral 08/29/2023 09/27/2024 1 1 Specialty Diagnoses / Procedures Referred By Contac t Referred To Contact MR IMAGING Diagnoses Multiple sclerosis (HCC) Procedures MRI BRAIN WO/W IVCON MRI BRAIN BRAIN STEM W/O W/CONTRAST MATERIAL Yoly Miller, PLASTIC TOOL MAKER.HAND ETCHER HELPER [address] [place] [phone] Mr Imaging [place] [address] Referral ID Status Reason Start Date Expiration Date V isits Requested Visits Authorized [id number] Closed Auto-Generate d Referral 11/01/2023 07/23/2024 1 1 Referral ID Status Reason Start Date Expiration Date V isits Requested Visits Authorized [id number] Closed Auto-Generate d Referral 11/01/2023 07/23/2024 1 1 Specialty Diagnoses / Procedures Referred By Contac t Referred To Contact [facility] Diagnoses Radiculopathy, lumbar region Spinal stenosis, lumbar region, without neurogenic claudication Lumbar spondylosis Procedures CONSULT TO PHYSICAL THERAPY PHYSICAL THERAPY EVALUATION HIGH COMPLEX 45 MINS Marielle Gannon PLASTIC TOOL MAKER.HAND ETCHER HELPER [address] [place] [phone] [facility] [place] [id number] Referral ID Status Reason Start Date Expiration Date Visits Requested Visits Authorized [id number] Pending Review Auto-Generat ed Referral 12/29/2023 12/28/2024 1 1 Specialty Diagnoses / Procedures Referred By Contac t Referred To Contact XR IMAGING Diagnoses Radiculopathy, lumbar region Spinal stenosis, lumbar region, without neurogenic claudication Lumbar spondylosis Procedures XR LUMBAR GENERAL 3V AP/LAT/L5-S1 RADEX SPINE LUMBOSACRAL 2/3 VIEWS Marielle Gannon, PLASTIC TOOL MAKER.HAND ETCHER HELPER [address] [place] [phone] Xr Imaging [facility] Referral ID Status Reason Start Date Expiration Date Visits Requested Visits Authorized [id number] Pending Review Auto-Generat ed Referral 12/29/2023 01/27/2025 1 1 Specialty Diagnoses / Procedures Referred By Contac t Referred To Contact Diagnoses Chronic fatigue syndrome Multiple sclerosis (HCC) Procedures CONSULT TO NUTRITION WELLNESS MEDICAL NUTRITION ASSMT&IVNTJ INDIV EACH 15 [place] MEDICAL NUTRITION ASSMT&IVNTJ INDIV EACH 15 [place] MEDICAL NUTRITION ASSMT&IVNTJ INDIV EACH 15 [place] MEDICAL NUTRITION ASSMT&IVNTJ INDIV EACH 15 [place] Autumn Barclay MD [address] [place] [address] Referral ID Status Reason Start Date Expiration Date Visits Requested Visits Authorized [id number] Authorized PCP Requested Referral 04/24/2024 04/24/2025 1 1 Specialty Diagnoses / Procedures Referred By Contac t Referred To Contact MR IMAGING Diagnoses Multiple sclerosis (HCC) Procedures MRI THORACIC SPINE WO/W IVCON MRI SPINAL CANAL THORACIC W/O & W/CONTR MATRL Autumn Barclay MD [address] [phone] Mr Imaging [place] [facility] Referral ID Status Reason Start Date Expiration Date Visits Requested Visits Authorized [id number] New Request Auto-Generat ed Referral 05/01/2024 05/24/2025 1 1 Specialty Diagnoses / Procedures Referred By Contac t Referred To Contact MR IMAGING Diagnoses Multiple sclerosis (HCC) Procedures MRI CERVICAL SPINE WO/W IVCON MRI SPINAL CANAL CERVICAL W/O & W/CONTR MATRL Autumn Barclay MD [address] [place] [phone] Mr Imaging [place] [address] Referral ID Status Reason Start Date Expiration Date Visits Requested Visits Authorized [id number] New Request Auto-Generat ed Referral 05/01/2024 05/24/2025 1 1 Specialty Diagnoses / Procedures Referred By Contac t Referred To Contact [facility] Diagnoses Chronic fatigue syndrome Procedures CONSULT TO PHYSICAL THERAPY PHYSICAL THERAPY EVALUATION HIGH COMPLEX 45 MINS Autumn Barclay MD [address] [place] [phone] [facility] [place] [address] Referral ID Status Reason Start Date Expiration Date Visits Requested Visits Authorized [id number] Pending Review Auto-Generat ed Referral 04/24/2024 04/24/2025 1 1 Specialty Diagnoses / Procedures Referred By Contac t Referred To Contact Diagnoses Multiple sclerosis (CMS/HCC) Jayme Schmidt MD [address] [place] [address] Referral ID Status Reason Start Date Expiration Date V isits Requested Visits Authorized [id number] Pending Review 03/12/2024 09/08/2024 1 1 Referral ID Status Reason Start Date Expiration Date V isits Requested Visits Authorized [id number] Pending Review 1 1 Referral ID Status Reason Start Date Expiration Date V isits Requested Visits Authorized [id number] Pending Review 1 1 Referral ID Status Reason Start Date Expiration Date V isits Requested Visits Authorized [id number] Closed Auto-Generate d Referral 07/04/2024 08/03/2024 1 1 Referral ID Status Reason Start Date Expiration Date V isits Requested Visits Authorized [id number] Closed Auto-Generate d Referral 07/04/2024 08/03/2024 1 1 Specialty Diagnoses / Procedures Referred By Contac t Referred To Contact [facility] Diagnoses Relapsing remitting multiple sclerosis (HCC) Procedures CONSULT TO PHYSICAL THERAPY PHYSICAL THERAPY EVALUATION HIGH COMPLEX 45 MINS Autumn Barclay MD [address] [place] [address] [facility] [address] [place] [address] Referral ID Status Reason Start Date Expiration Date Visits Requested Visits Authorized [id number] Pending Review Auto-Generat ed Referral 07/26/2024 07/26/2025 1 1 Specialty Diagnoses / Procedures Referred By Deedee edwards Referred To Contact MR IMAGING Diagnoses Relapsing remitting multiple sclerosis (HCC) Procedures MRI BRAIN WO/W IVCON MRI BRAIN BRAIN STEM W/O W/CONTRAST MATERIAL Auutmn Barclay MD [address] [place] [address] [place] [address] Referral ID Status Reason Start Date Expiration Date Visits Requested Visits Authorized [id number] Pending Review Auto-Generat ed Referral 10/22/2024 08/25/2025 1 1 Summary Purpose Family History No [...] or prosecute any alcohol or drug abuse patient.[facility] the event this information is protected by the Federal Confidentiality of Alcohol and Drug Abuse Patient Records regulations: The Federal rules restrict any use of the information to criminally investigate or prosecute any alcohol or drug abuse patient.[facility] HospitalIn the event this information is protected by the Federal Confidentiality of Alcohol and Drug Abuse Patient Records regulations: The Federal rules restrict any use of the information to criminally investigate or prosecute any alcohol or drug abuse patient.[facility] HospitalIn the event this information is protected by the Federal Confidentiality of Alcohol and Drug Abuse Patient Records regulations: The Federal rules restrict any use of the information to criminally investigate or prosecute any alcohol or drug abuse patient.[facility] HospitalIn the event this information is protected by the Federal Confidentiality of Alcohol and Drug Abuse Patient Records regulations: The Federal rules restrict any use of the information to criminally investigate or prosecute any alcohol or drug abuse patient.[facility] HospitalIn the event this information is protected by the Federal Confidentiality of Alcohol and Drug Abuse Patient Records regulations: The Federal rules restrict any use of the information to criminally investigate or prosecute any alcohol or drug abuse patient.[facility] HospitalIn the event this information is protected by the Federal Confidentiality of Alcohol and Drug Abuse Patient Records regulations: The Federal rules restrict any use of the information to criminally investigate or prosecute any alcohol or drug abuse patient.[facility] HospitalIn the event this information is protected by the Federal Confidentiality of Alcohol and Drug Abuse Patient Records regulations: The Federal rules restrict any use of the information to criminally investigate or prosecute any alcohol or drug abuse patient.[facility] HospitalIn the event this information is protected by the Federal Confidentiality of Alcohol and Drug Abuse Patient Records regulations: The Federal rules restrict any use of the information to criminally investigate or prosecute any alcohol or drug abuse patient.[facility] HospitalIn the event this information is protected by the Federal Confidentiality of Alcohol and Drug Abuse Patient Records regulations: The Federal rules restrict any use of the information to criminally investigate or prosecute any alcohol or drug abuse patient.[facility] HospitalIn the event this information is protected by the Federal Confidentiality of Alcohol and Drug Abuse Patient Records regulations: The Federal rules restrict any use of the information to criminally investigate or prosecute any alcohol or drug abuse patient.[facility] the event this information is protected by the Federal Confidentiality of Alcohol and Drug Abuse Patient Records regulations: The Federal rules restrict any use of the information to criminally investigate or prosecute any alcohol or drug abuse patient.[facility] HospitalIn the event this information is protected by the Federal Confidentiality of Alcohol and Drug Abuse Patient Records regulations: The Federal rules restrict any use of the information to criminally investigate or prosecute any alcohol or drug abuse patient.[facility] HospitalIn the event this information is protected by the Federal Confidentiality of Alcohol and Drug Abuse Patient Records regulations: The Federal rules restrict any use of the information to criminally investigate or prosecute any alcohol or drug abuse patient.[facility] the event this information is protected by the Federal Confidentiality of Alcohol and Drug Abuse Patient Records regulations: The Federal rules restrict any use of the information to criminally investigate or prosecute any alcohol or drug abuse patient.[facility] HospitalIn the event this information is protected by the Federal Confidentiality of Alcohol and Drug Abuse Patient Records regulations: The Federal rules restrict any use of the information to criminally investigate or prosecute any alcohol or drug abuse patient.[facility] HospitalIn the event this information is protected by the Federal Confidentiality of Alcohol and Drug Abuse Patient Records regulations: The Federal rules restrict any use of the information to criminally investigate or prosecute any alcohol or drug abuse patient.[facility] HospitalIn the event this information is protected by the Federal Confidentiality of Alcohol and Drug Abuse Patient Records regulations: The Federal rules restrict any use of the information to criminally investigate or prosecute any alcohol or drug abuse patient.[facility] HospitalIn the event this information is protected by the Federal Confidentiality of Alcohol and Drug Abuse Patient Records regulations: The Federal rules restrict any use of the information to criminally investigate or prosecute any alcohol or drug abuse patient.[facility] HospitalIn the event this information is protected by the Federal Confidentiality of Alcohol and Drug Abuse Patient Records regulations: The Federal rules restrict any use of the information to criminally investigate or prosecute any alcohol or drug abuse patient.[facility] HospitalIn the event this information is protected by the Federal Confidentiality of Alcohol and Drug Abuse Patient Records regulations: The Federal rules restrict any use of the information to criminally investigate or prosecute any alcohol or drug abuse patient.[facility] HospitalIn the event this information is protected by the Federal Confidentiality of Alcohol and Drug Abuse Patient Records regulations: The Federal rules restrict any use of the information to criminally investigate or prosecute any alcohol or drug abuse patient.[facility] HospitalIn the event this information is protected by the Federal Confidentiality of Alcohol and Drug Abuse Patient Records regulations: The Federal rules restrict any use of the information to criminally investigate or prosecute any alcohol or drug abuse patient.[facility] HospitalIn the event this information is protected by the Federal Confidentiality of Alcohol and Drug Abuse Patient Records regulations: The Federal rules restrict any use of the information to criminally investigate or prosecute any alcohol or drug abuse patient.[facility] HospitalIn the event this information is protected by the Federal Confidentiality of Alcohol and Drug Abuse Patient Records regulations: The Federal rules restrict any use of the information to criminally investigate or prosecute any alcohol or drug abuse patient.[facility] HospitalIn the event this information is protected by the Federal Confidentiality of Alcohol and Drug Abuse Patient Records regulations: The Federal rules restrict any use of the information to criminally investigate or prosecute any alcohol or drug abuse patient.[facility] HospitalIn the event this information is protected by the Federal Confidentiality of Alcohol and Drug Abuse Patient Records regulations: The Federal rules restrict any use of the information to criminally investigate or prosecute any alcohol or drug abuse patient.[facility] Care Teams (unrecognized sec tion and content) Perioperative Manager Relationship Specialty Start Date End Date Jayme Schmidt PCP - General Internal Medicine 08/12/13 Perioperative Manager Relationship Specialty Start Date End Date Jayme Schmidt PCP - General Internal Medicine 08/12/13 Perioperative Manager Relationship Specialty Start Date End Date Jayme Schmidt PCP - General Internal Medicine 08/12/13 Perioperative Manager Relationship Specialty Start Date End Date Jayme Schmidt PCP - General Internal Medicine 08/12/13 Perioperative Manager Relationship Specialty Start Date End Date Jayme Schmidt PCP - General Internal Medicine 08/12/13 Perioperative Manager Relationship Specialty Start Date End Date Jayme Schmidt PCP - General Internal Medicine 08/12/13 Perioperative Manager Relationship Specialty Start Date End Date Jayme Schmidt PCP - General Internal Medicine 08/12/13 Perioperative Manager Relationship Specialty Start Date End Date Jayme Schmidt PCP - General Internal Medicine 08/12/13 Perioperative Manager Relationship Specialty Start Date End Date Jayme Schmidt PCP - General Internal Medicine 08/12/13 Perioperative Manager Relationship Specialty Start Date End Date Jayme Schmidt PCP - General Internal Medicine 08/12/13 Perioperative Manager Relationship Specialty Start Date End Date Glenroysoloshelby Jayme Herrera PCP - General Internal Medicine 08/12/13 Perioperative Manager Relationship Specialty Start Date End Date Glenroynaomi Jayme Sharon PCP - General Internal Medicine 08/12/13 Perioperative Manager Relationship Specialty Start Date End Date GlenroyJayme salgado PCP - General Internal Medicine 08/12/13 Team Status: Active Member Role Status Dates Jayme Schmidt MD Primary Care Provider Active Team Status: Inactive Member Role Status Dates LILI HuynhC Attending Provider Active S tart: September 25, 2023 End: September 25, 2023 Jayme Schmidt MD Primary Care Provider Active S tart: September 25, 2023 End: September 25, 2023 Team Status: Inactive Member Role Status Dates Jayme Schmidt MD Primary Care Provider Active S tart: December 19, 2023 End: December 19, 2023 Shelbie Allred APRN Attending Provider Active S tart: December 19, 2023 End: December 19, 2023 Team Status: Active Member Role Status Dates Jayme Schmidt MD Primary Care Provider Active S tart: December 19, 2023 Shelbie M Chalino , PLASTIC TOOL MAKER Attending Provider Active S tart: December 19, 2023 Perioperative Manager Relationship Specialty Start Date End Date Jayme Schmidt PCP - General Internal Medicine 08/12/13 Perioperative Manager Relationship Specialty Start Date End Date Jayme Schmidt PCP - General Internal Medicine 08/12/13 Perioperative Manager Relationship Specialty Start Date End Date Jayme Schmidt PCP - General Internal Medicine 08/12/13 Perioperative Manager Relationship Specialty Start Date End Date Jayme Schmidt PCP - General Internal Medicine 08/12/13 Perioperative Manager Relationship Specialty Start Date End Date Jayme Schmidt PCP - General Internal Medicine 08/12/13 Perioperative Manager Relationship Specialty Start Date End Date Jayme Schmidt PCP - General Internal Medicine 08/12/13 Perioperative Manager Relationship Specialty Start Date End Date Jayme Schmidt MD PCP - General Internal Medicine 08/12/13 Perioperative Manager Relationship Specialty Start Date End Date Jayme Schmidt MD [address] [place] [address] PCP - General Family Medicine 08/21/23 Perioperative Manager Relationship Specialty Start Date End Date Jayme Schmidt MD [address] [place] [phone] PCP - General Family Medicine 08/21/23 Perioperative Manager Relationship Specialty Start Date End Date Jayme Schmidt MD [address] [place] [phone] PCP - General Family Medicine 08/21/23 Perioperative Manager Relationship Specialty Start Date End Date Jayme Schmidt MD [address] [place] [address] PCP - General Family Medicine 08/21/23 Perioperative Manager Relationship Specialty Start Date End Date Jayme Schmidt MD [address] [place] [address] PCP - General Family Medicine 08/21/23 Perioperative Manager Relationship Specialty Start Date End Date Jayme Schmidt MD [address] [place] [address] PCP - General Family Medicine 08/21/23 Perioperative Manager Relationship Specialty Start Date End Date Jayme Schmidt MD [address] [place] [address] PCP - General Family Medicine 08/21/23 Perioperative Manager Relationship Specialty Start Date End Date Jayme Schmidt MD [address] [place] [address] PCP - General Family Medicine 08/21/23 Perioperative Manager Relationship Specialty Start Date End Date Jayme Schmidt MD [address] [place] [address] PCP - General Family Medicine 08/21/23 Perioperative Manager Relationship Specialty Start Date End Date Jayme Schmidt MD [address] [place] [address] PCP - General Family Medicine 08/21/23 Perioperative Manager Relationship Specialty Start Date End Date Jayme Schmidt MD [address] [place] [phone] PCP - General Family Medicine 08/21/23 Perioperative Manager Relationship Specialty Start Date End Date Jayme Schmidt MD [address] [place] [address] PCP - General Family Medicine 08/21/23 Perioperative Manager Relationship Specialty Start Date End Date Jayme Schmidt MD [address] [place] [address] PCP - General Family Medicine 08/21/23 Perioperative Manager Relationship Specialty Start Date End Date Jayme Schmidt MD PCP - General Internal Medicine 08/12/13 Perioperative Manager Relationship Specialty Start Date End Date Jayme Schmidt MD PCP - General Internal Medicine 08/12/13 Perioperative Manager Relationship Specialty Start Date End Date Jayme Schmidt MD PCP - General Internal Medicine 08/12/13 Perioperative Manager Relationship Specialty Start Date End Date Jayme Schmidt MD PCP - General Internal Medicine 08/12/13 Perioperative Manager Relationship Specialty Start Date End Date Jayme Schmidt MD [address] [place] [phone] PCP - [facility] 08/21/23 Perioperative Manager Relationship Specialty Start Date End Date Jayme Schmidt MD [address] [place] [address] PCP - [facility] Medicine 08/21/23 Perioperative Manager Relationship Specialty Start Date End Date Jayme Schmidt MD [address] [place] [address] PCP - [facility] 08/21/23 Reason for Visit (unrecogniz ed section and content) Specialty Diagnoses / Procedures Referred By Contac t Referred To Contact MR IMAGING Diagnoses Multiple sclerosis (HCC) Encounter for long-term (current) use of medications Procedures MRI BRAIN WO/W IVCON MRI BRAIN PALLAVIO Autumn Barclay MD [address] [place] [address] Mr Imaging Referral ID Status Reason Start Date Expiration Date V isits Requested Visits Authorized [id number] Closed Auto-Generate d Referral 10/25/2021 07/23/2022 1 1 Specialty Diagnoses / Procedures Referred By Contac t Referred To Contact Diagnoses Multiple sclerosis (HCC) MS Procedures INJECTION, OCRELIZUMAB, 1 MG OCRELIZUMAB Yoly Miller, [employer].HAND ETCHER HELPER [address] [place] [address] Neur Treatment [facility] [address] [place] [address] Referral ID Status Reason Start Date Expiration Date V isits Requested Visits Authorized [id number] Authorized 05/15/2020 12/17/2023 99 99 Reason Comments Established Patient Follow-Up Reason Comments Refill Request Specialty Diagnoses / Procedures Referred By Contac t Referred To Contact MR IMAGING Diagnoses Multiple sclerosis (HCC) Encounter for long-term (current) use of medications Procedures MRI BRAIN WO/W IVCON MRI BRAIN BRAIN STEM W/O W/CONTRAST MATERIAL Yoly Miller APRN.HAND ETCHER HELPER [address] [place] [address] Mr Imaging Referral ID Status Reason Start Date Expiration Date V isits Requested Visits Authorized [id number] Closed Auto-Generate d Referral 01/04/2023 07/23/2023 1 1 Reason Comments Established Patient Follow-Up Reason Comments Radiology MRI Specialty Diagnoses / Procedures Referred By Contac t Referred To Contact MR IMAGING Diagnoses Multiple sclerosis (HCC) Procedures MRI BRAIN WO/W IVCON MRI BRAIN BRAIN STEM W/O W/CONTRAST MATERIAL Yoly Miller APRN.HAND ETCHER HELPER [address] [place] [id number] Mr Imaging [place] [address] Referral ID Status Reason Start Date Expiration Date V isits Requested Visits Authorized [id number] Closed Auto-Generate d Referral 11/01/2023 07/23/2024 1 1 Specialty Diagnoses / Procedures Referred By Contac t Referred To Contact MR IMAGING Diagnoses Spinal stenosis of lumbar region without neurogenic claudication Procedures MRI LUMBAR SPINE WO IVCON MRI SPINAL CANAL LUMBAR W/O CONTRAST MATERIAL Yoly Miller, [employer].HAND ETCHER HELPER [address] [place] [address] Mr Imaging [place] [address] Referral ID Status Reason Start Date Expiration Date V isits Requested Visits Authorized [id number] Closed Auto-Generate d Referral 11/01/2023 07/23/2024 1 1 Reason Comments New Patient Referral ID Status Reason Start Date Expiration Date V isits Requested Visits Authorized [id number] Authorized 05/15/2020 01/16/2025 9 9 Reason Comments Leg Pain Reason Comments Established Patient Follow-Up Reason Comments Appointment lvm for patient to c all so we can get er scheduled fora follow up in jul with dr barclay Reason Onset Date Comments Med Refill 05/28/2024 Reason Comments Infertility Reason Comments Ear Problem Left ear pain. Reason Comments Follow-up 3m Referral to gastr o Reason Comments Weight Management Reason Onset Date Comments Med Refill 03/12/2024 Reason Comments Follow-up 6mChange adhd med Hypertension Bp running high Reason Comments Well Women Visit Reason Onset Date Comments Med Refill 04/18/2024 Referral ID Status Reason Start Date Expiration Date Visits Requested Visits Authorized [id number] Pending Review Clearance Not Met - Admin/Chair man/Directo r Advise to Postpone/Re schedule or Not Proceed 0 01/16/2025 9 9 Reason Comments Radiology MRI Specialty Diagnoses / Procedures Referred By Deedee edwards Referred To Contact MR IMAGING Diagnoses Multiple sclerosis (HCC) Procedures MRI THORACIC SPINE WO/W IVCON MRI SPINAL CANAL THORACIC W/O & W/CONTR Autumn Easton MD [address] [place] [address] Mr Imaging [facility] Referral ID Status Reason Start Date Expiration Date V isits Requested Visits Authorized [id number] Closed Auto-Generate d Referral 07/04/2024 08/03/2024 1 1 Reason Comments Weight Management Pt present today for [employer] #2 visit. INFORMATION SOURCE (unrecogn ized section and content) DATE CREATED AUTHOR 12/15/2021 [facility] DATE CREATED AUTHOR AUTHOR'S ORGANIZ ATION 06/27/2022 [facility] DATE CREATED AUTHOR AUTHOR'S ORGANIZ ATION 02/24/2023 [facility] DATE CREATED AUTHOR AUTHOR'S ORGANIZ ATION 12/20/2023 [facility] DATE CREATED AUTHOR AUTHOR'S ORGANIZ ATION 02/21/2024 [facility] DATE CREATED AUTHOR AUTHOR'S ORGANIZ ATION 08/03/2024 [facility] DATE CREATED AUTHOR AUTHOR'S ORGANIZ ATION 08/05/2024 [facility] EPIC Goals (unrecognized section and content) Goals may [...] BE BASED ON THE PRIMARY CLINICAL RECORDS. [facility] [employer] [facility]. provides no warranty or guarantee of the accuracy or completeness of information in this document.
== END 2024-08-15 10:23 | disposition home or self-care (01) ==
LOC: RAD 10:22
PROVIDERS: PCP Family Medicine; Visit Provider Family Medicine
DX: Z13.820 Encounter for screening for osteoporosis (principal); S92.909D Unspecified fracture of unspecified foot, subsequent encounter for fracture with routine healing
CPT/HCPCS: 77080

== ENCOUNTER 2024-08-19 08:09 | Day surgery (SDC) | payer OTHER, SELFPAY ==
[2024-08-13 09:17] VITALS: BP 127/81; PULSE 90; O2SAT 97; BMI 43.8
[2024-08-19] VITALS (8 sets, daily range): BP systolic 126–152; BP diastolic 78–97; PULSE 86–103; TEMP 36–36.7; O2SAT 94–97; BMI 43.9
[2024-08-19 08:16] LABS: Hematocrit 42.5 % (36.0-48.0); Hemoglobin 13.6 g/dL (12.0-16.0); Mean Corpuscular Hemoglobin 27.9 pg (26.7-34.0); Mean Corpuscular Volume 87.3 fL (81.0-99.0); Mean Platelet Volume 9.3 fL (9.5-13.5); Platelet Count 418 10^3/uL (150-450); Red Blood Count 4.87 10^6/uL (4.20-5.40); Red Cell Distribution Width 12.4 % (11.0-15.0); White Blood Count 4.7 10^3/uL (4.0-11.0)
[2024-08-19 08:38] LABS: HCG Qualitative NEGATIVE (NEGATIVE); Internal Control Within Normal Limits
[2024-08-19 08:47] LABS: Glucometer 100 mg/dL (74-106)
[2024-08-19 08:48] LABS: Band Neutrophils Absolute 0.1 10^3/uL (0.0-0.3); Eosinophils Absolute Manual 0.09 10^3/uL (0.00-0.70); Lymphocytes Absolute Manual 2.53 10^3/uL (1.20-3.80); Monocytes Absolute Manual 1.41 10^3/uL (0.30-0.80); Segmented Neut Absolute Manual 0.09 10^3/uL (1.4-6.5)
[2024-08-19 08:49] LABS: Atypical Lymphocytes Abs Man 0.47
[2024-08-19] MEDS: LACTATED RINGER'S SOLUTION 1,000 ML 50 ML IV ×2 (08:50→11:45)
--- NOTE | 2024-08-19 09:21 | PC.NURSE ---
Patient consented to nerve block. Patient placed on monitor and O2 per protocol. Time out performed. Patient positioned onto side. Medicated per Dr. Pfeiffer. Bedside ultrasound used to locate nerve. Patient tolerated block well. Block performed from 909 to 911. Patient remains on Monitor and O2 until she is taken to the OR. Call light within reach.
[2024-08-19] MEDS: CEFAZOLIN SODIUM/DEXTROSE,ISO 2 GM/50 ML PIGGYBACK IV (10:56)
--- NOTE | 2024-08-19 11:01 | P.ORON_ITS ---
Brief Operative Note Date of procedure: 08/19/24 Pre-op diagnosis general: Left fifth metatarsal fracture, nondisplaced (Klein fracture) Post-op diagnosis: same as pre-op Procedure: Procedure performed: Open reduction and internal fixation of left fifth metatarsal fracture, application of short leg splint Indications for procedure: Patient is a 28-year-old female who was referred to me by [place] emergency department after sustaining left fifth metatarsal frac ture. She went to the emergency department on 07/28/2024 due to increasing pain over the lateral foot without known injury. She related that she had been having pain for at least a week and upon getting into her car she felt a pop followed by significant increase in pain over this area. X-rays revealed a fracture of the fifth metatarsal at the metadiaphyseal junction consistent with a Klein fracture. She was seen in my office on 07/30/2024 at which time she was in a surgical shoe. I recommended nonweightbearing with crutches and knee scooter and had a long discussion with her regarding vaping and how it could affect her healing potential. She was placed on vitamin D at that time as well. I had a long discussion with her regarding the potential risks and benefits of surgical intervention after discussing with family she made the decision to undergo surgery. Intraoperative findings: Nondisplaced fracture of the fifth metatarsal at the metadiaphyseal junction. Compression noted over the fracture line and bone quality was within normal limits. Procedure in detail: Patient was identified preoperatively by myself which time correct side and site were marked and consent was obtained. Regional anesthesia was performed by the anesthesia team. Patient was brought back to the operating theater placed on table in supine position with a thigh tourniquet. Preoperative antibiotics were administered. General anesthesia was administered. Left lower extremities prepped and draped in usual sterile fashion. The left lower extremity was exsanguinated and tourniquet was inflated. Using intraoperative fluoroscopy the borders of the fifth metatarsal base and shaft were marked. Then incision was placed proximal to the fifth metatarsal base along the peroneal tendons. Combination of sharp and blunt dissection gained access to the fifth metatarsal base which was pinned with a guidewire from the fifth metatarsal base and into the shaft of the fifth metatarsal. Length of the screw was determined and the canal of the fifth metatarsal was drilled with 3.5 mm drill bit. A 4.5 mm tap was then used over the guidewire noting good intracortical contact and purchase. The tap and guidewire were removed and a 4.5 mm solid screw was placed from the fifth metatarsal base into the shaft of the fifth metatarsal. Compression of the fracture line was noted. Surgical site was irrigated with copious saline and the incision was closed in layers. Tourniquet was deflated noting a prompt hyperemic response and a dry sterile dressing multilayered posterior splint was applied. Patient tolerated procedure and anesthesia well was transported to the recovery room with vital signs stable and brisk capillary refill to left toes. Postoperative plan: Discharge home under family's care Nonweightbearing left foot Keep splint clean dry and intact Prescriptions were sent to her pharmacy using my office EMR Follow-up in 1 week to be transition to a short leg cast Implants: Medline 4.5 mm solid Klein fracture screw Anesthesia: regional and General-LMA Surgeon: Kimo Oakley Estimated blood loss (mL): 10 Tourniquet time (min): 14 Pathology: none sent Condition: stable Disposition: PACU
[2024-08-19 12:44] LABS: Glucometer 92 mg/dL (74-106)
--- NOTE | 2024-08-19 12:50 | XR_ITS ---
The [address] [address] Patient Name: KASHIF JAQUEZ MRN: [id number] date: 1995 Sex: F Assigned Patient Location: [facility] [place] Current Patient Location: Accession/Order Number: [id number] Exam Date: 08/19/2024 12:40 Report Date: 08/20/2024 05:37 At the request of: AMRIK MUELLER Procedure: XR foot LT min 3V PROCEDURE: XR foot LT min 3V HISTORY: Klein 5th metatarsal fx COMPARISON: XR foot left 07/28/2024 FINDINGS: BONES:Longitudinally placed screw within the 5th metatarsal for repair of proximal fracture with normal alignment maintained. SOFT TISSUES:Images were obtained through cast material which slightly limits evaluation. EFFUSION:None visible. OTHER: Negative. XR/XR foot LT min 3V IMPRESSION: 1. Surgical repair of 5th metatarsal fracture with normal alignment maintained. Electronically authenticated by: ESME WILLIAMSON Date: 08/20/2024 05:37
--- NOTE | 2024-08-19 13:28 | PC.NURSE ---
Assisted to BSC and voided without difficulty; NWB maintained to left extremity
== END 2024-08-19 14:05 | disposition home or self-care (01) ==
PROVIDERS: Anesthesiology; PCP Family Medicine; Visit Provider Podiatrist Foot & Ankle Surgery
PROC: (CPT 1480; principal; 2024-08-19 10:00)
DX: S92.355A Nondisplaced fracture of fifth metatarsal bone, left foot, initial encounter for closed fracture (principal); X58.XXXA Exposure to other specified factors, initial encounter; Z90.49 Acquired absence of other specified parts of digestive tract; F17.290 Nicotine dependence, other tobacco product, uncomplicated; E66.01 Morbid (severe) obesity due to excess calories; Z68.41 Body mass index [BMI] 40.0-44.9, adult; G35 Multiple sclerosis; E03.9 Hypothyroidism, unspecified
CPT/HCPCS: 28485; 36415; 64445; 73630; 76000; 82948; 84703; 85007; 85027; C1713; J0690; J1100; J1885; J2250; J2405; J2704; J2795; J3010

== ENCOUNTER 2024-09-10 10:48 | Outpatient (OUT) | payer OTHER, SELFPAY ==
--- NOTE | 2024-09-10 | XR_ITS ---
The [address] [address] Patient Name: KASHIF JAQUEZ MRN: [id number] date: 1995 Sex: F Assigned Patient Location: [facility] Current Patient Location: [facility] Accession/Order Number: [id number] Exam Date: 09/11/2024 22:40 Report Date: 09/11/2024 22:40 At the request of: AMRIK MUELLER DPJohn Procedure: XR foot LT min 3V XR foot LT min 3V 09/10/2024 11:22 AM SIGNS AND SYMPTOMS: ^LEFT FOOT PAIN PROTOCOL: Frontal, lateral, and oblique radiographs of the left foot COMPARISON: 08/19/2024 FINDINGS: There is screw fixation at the base of the fifth metatarsal. This is unchanged compared to the prior exam. A transversely oriented fracture at the base of the fifth metatarsal is incompletely healed. No change in alignment. The joint spaces are preserved. XR/XR foot LT min 3V IMPRESSION: Status post hardware fixation of a fracture of the base of the fifth metatarsal without change in alignment or hardware complication. Healing remains incomplete. Impression dictated by: Corey Short M.D.09/11/2024 10:40 PM Dictation Location: [place] [address] Electronically authenticated by: [id number] Y Date: 09/11/2024 22:40
--- OUTSIDE RECORDS SUMMARY | 2024-09-10 10:54 | XMS_ITS | CCD ---
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 Role Phone Jayme Schmidt Primary Care Provider JAYME SCHMIDT Primary Care Unavailgloria SCHMIDT, JAYME GUADARRAMA Attending Unavailabl e JULISSA, JAYME GUADARRAMA Primary Care UnavailMD DAVID Vega Attending Melvini JAYME Ponce Primary Care Physician [phone] MATTHEW, DR GOLDBERG Admitting Unavailable NILL, DR GOLDBERG Consulting Unavailable NILL, DR GOLDBERG Attending Unavailable NADEREShelby, DR JAYME Herrera Primary Care Unavailable NILL, DR GOLDBERG Admitting Unavailable NILL, DR GOLDBERG Consulting Unavailable NILL, DR GOLDBERG Attending Unavailable NADERER, DR JAYME Herrera Primary Care Unavailable IVELISSE, SAMUEL LEOS Consulting Unava ilable GEMBUS, OPAL Consulting Unavailable NADERER, DR JAYME Herrera Primary Care Unavailable NADERER, DR JAYME Herrera Consulting Unavailable NADERER, DR JAYME Herrera Attending Unavailable GLENROYEREShelby, DR JAYME Herrera Admitting Unavailable Jayme Schmidt Primary Care Provider [phone] Erica Perry Unavailable Carol Ann Lees Unavailable Yusuf CASTRO Attending Unavailable GLENROYERERJAYME Referring Unavailable NILL, Yusuf Ryan Attending Unavailable NADEREJAYME Ryan Referring Unavailable NILL, Yusuf Ryan Attending Unavailable NILDeon, Yusuf Ryan Attending Unavailable Clau Narayan Attending Unavailable Jayme Schmidt Primary Care Provider MD Jayme Schmidt Primary Care Provider ONEIDA Allred Attending Provider Shelbie Allred Attending Unavailable Shelbie Allred Admitting Unavailable Jayme Schmidt Primary Care Unavailable MARIELLE GANNON Referring Unavailable MARIELLE GANNON Attending Unavailable NADERER, JAYME A Primary Care Unavailable Julissa BENÍTEZ, Jayme Herrera Primary Care Provider [phone] Julissa BENÍTEZ, Jayme Primary Care Provider [phone] JULISSA, JAYME Herrera Primary Care Unavailable CHIZMADIA, YOLY Referring Unavailable NADERER, JAYME A Primary Care Unavailable CHIZMADIA, YOLY Attending Unavailable SELF Referring Unavailable NADERER, JAYME A Primary Care Unavailable SELF Referring Unavailable NADERER, JAYME Herrera Primary Care Unavailable RENSEL, AUTUMN R Attending Unavailable NADERER, JAYME A Primary Care Unavailable RENSEL, AUTUMN R Referring Unavailable SELF Referring Unavailable NADERER, JAYME A Primary Care Unavailable NADERER, JAYME Herrera Primary Care Unavailable RENSEL, AUTUMN R Attending Unavailable NADERER, JAYME Herrera Primary Care Unavailable RADHAMARIELLE MONZON Attending Unavailable NADERER, JAYME A Primary Care Unavailable NADERER, JAYME A Primary Care Unavailable CHIZMADIA, YOLY Referring Unavailable LEANN, ZOE Attending Unavailable NADERER, JAYME Attending Unavailable NADERER, JAYME Attending Unavailable LEANN, ZOE Attending Unavailable TIMMIS, JONATHAN H Attending Unavailable BUTCH, CASEY Attending Unavailable NADERER, JAYME Attending Unavailable LEANN, ZOE Attending Unavailable NADERER, JAYME Attending Unavailable LEANN, ZOE Attending Unavailable Allergies Allergy Classification Reported Allergen(s) Allergy Type Date of Onset Reaction(s) Facility (20 sources) Glatiramer; Translations: [glatiramer] Drug Allergy 4 Rash, Weal (disorder), hives [facility] (20 sources) Interferon beta-1a; Translations: [interferon beta-1a] Drug Allergy 4 Hives, Shortness of Breath, Dyspnea (finding) [facility] (3 sources) Glatiramer; Translations: [Copaxone] Drug Allergy 5 [facility] Repository (7 sources) Interferon beta-1a; Translations: [Avonex] Drug Allergy 5 short of breath [facility] Repository (2 sources) Glatiramer; Translations: [glatiramer] Drug Allergy 5 [facility] Repository (1 source) interferon beta-1a Drug allergy (disorder) [facility] Repository (1 source) Glatiramer Drug Allergy 4 [facility] Repository (1 source) interferon beta-1a Drug allergy (disorder) 4 [facility] Repository (20 sources) Glatiramer Drug Allergy 3 Unknown [facility] Work Phone: (20 sources) moxifloxacin Drug Allergy 3 Unknown [facility] (20 sources) Interferon Beta-1a Propensity to adverse reactions 4 Anaphylaxis, Hives, Shortness of breath [facility] (7 sources) Glatiramer Drug Allergy 4 Rash [facility] [...] TABLET BY SILVER TH EVERYDAY AT BEDTIME aspirin 162.5 MG split tablet (2 sources) Start: 08-19-19 take 2 tablets by mouth once aspirin 162.5 MG split tablet Take 325 mg by mouth 1 (one) time 08/19/2024 Active Azithromycin (3 sources) Macrolide Antimicrobial Start: 12-19-19 Azithromycin Active 0 PO .COMPLEX December 19, [...] once daily cholecalciferol (Vitamin D-3) 50 MCG (2000 UT) tablet Take 1 tablet by mouth 1 (one) time each day at the same time. 06/24/2024 Discontinued Comment on above: TAKE ONE CAPSULE BY MOUTH EVERY DAY cholestyramine resin 4000 mg powder for oral suspension (1 source) Bile Acid Sequestrant Start: 07-05-20 Questran 4 g/9 g oral powder = 1 packet(s), Oral, BID, # 60 EA, Refills(s) 3, Pharmacy: [facility]/pharmacy #[id number], 165, cm, 05/24/22 14:22:00 EDT, Height/Length Dosing, 106, kg, 05/24/22 14:22:00 EDT, Weight Dosing Start Date: 07/05/22 Status: Ordered clotrimazole 10 mg/ml topical cream (10 sources) Azole Antifungal Start: 07-30-19 clotrimazole (Lotrimin) [...] Active Start: 05-12-2022 take 1 tablet by [facility] once daily Tri-Sprintec 35 mcg Tab = 1 tab(s), Oral, Daily, Refills(s) 0 Start Date: 05/12/22 Status: Ordered ferrous sulfate 325 mg oral tablet (20 sources) Start: 09-25-2023 Ferrous Sulfat e Active MG PO September 25, 2023 1:00am Start: 10-14-2019 ferrous sulfat e 325 mg Tab Refills(s) 0 Start Date: 10/14/19 Status: Ordered Start: 10-05-2015 take 1 tablet by [facility] twice daily ferrous sulfate 325 (65 Fe) MG tablet Indications: Other iron deficiency anemia TAKE 1 TABLET BY MOUTH TWICE A DAY 180 tablet 3 10/31/2023 Active take 1 tablet by silver once daily Ferrous Sulfate 325 (65 Fe) MG 1 tablet Orally Once a day Active Comment on above: Take 1 tablet by [facility] twice daily. hydrocortisone 10 mg/ml / neomycin 3.5 mg/ml / polymyxin b 36843 unt/ml otic suspension (1 source) Aminoglycoside Antibacterial, Polymyxin-class Antibacterial, Corticosteroid Start: 2022 Igutnboz-Kklblddmk-L C 3.5-15907-1 3 drops left ear Three times a [...] tablet (7 sources) Cholinergic Muscarinic Antagonist Start: take 1 tablet by mouth once daily oxybutynin ER (DITROPAN XL) 10 mg 24 hr tablet Take 1 tablet by mouth once daily. 30 tablet 5 04/24/2024 Active phentermine hydrochloride 37.5 mg oral tablet (20 sources) Sympathomimetic Amine Anorectic Start: End: take 1 tablet by mouth before mealtime phentermine (Adipex-P) 37.5 MG tablet Indications: Encounter for weight management Take 1 tablet (37.5 mg) by mouth in the morning. Take before meals. 30 tablet 08/28/2024 09/27/2024 Active sulfamethoxazole 800 mg / trimethoprim 160 mg oral tablet (2 sources) Dihydrofolate Reductase Inhibitor Antibacterial, Sulfonamide Antimicrobial Start: End: take 1 tablet by mouth twice daily sulfamethoxazole-t rimethoprim (BACTRIM DS) 800-160 mg per tablet Take 1 tablet by mouth twice daily for 3 days. 6 tablet 0 11/09/2021 11/12/2021 Active Comment on above: Take 1 tablet by silver twice daily for 3 days. Tri-Previfem 0.18/0.215/0.25 MG-35 MCG (4 sources) take 1 mg by mouth once daily Tri-Previfem 0.18/0.215/0.25 MG-35 MCG Orally Once a day Active 24 hr venlafaxine 150 mg extended release oral capsule (20 sources) Serotonin and Norepinephrine Reuptake Inhibitor Start: take 1 capsule by mouth once daily venlafaxine XR (Effexor XR) 150 MG 24 hr capsule Indications: Bipolar 1 disorder, depressed, mild (CMS/HCC) TAKE 1 CAPSULE BY MOUTH EVERY DAY 90 capsule 1 04/03/2024 Active Start: 01-01-2024 take 1 capsule by mo uth once daily venlafaxine XR (Effexor XR) 150 MG 24 hr capsule Indications: Bipolar 1 disorder, depressed, mild (CMS/HCC) TAKE 1 CAPSULE BY MOUTH EVERY DAY 30 capsule 3 01/01/2024 Active Start: 09-25-2023 Venlafaxine Ac tive MG PO September 25, 2023 1:00am Start: 07-30-2023 take 1 capsule by mo uth every hour venlafaxine ER (EFFEXOR XR) 150 mg 24 hr capsule Take 1 capsule by mouth every afternoon. 07/30/2023 Active Start: 10-14-2019 venlafaxine 15 0 mg Cap-ER Refills(s) 0 Start Date: 10/14/19 Status: Ordered Effexor Active Comment on above: Take 1 capsule by mo uth every afternoon. Vitamin D (4 sources) Vitamin [...] 01-17-2024 acetaminophen 1,000 mg tab(s ) (TYLENOL) [id number] actuat albuterol 0.09 mg/actuat metered dose [...] 1.5 mg/ml oral solution (3 sources) Uncompetitive I-pwoory-U-aspartate Receptor Antagonist, Sigma-1 Agonist Start: 11-20-2022 take 10 mL by mouth every eight hours [place] DM 7.5-7.5 MG/5ML 10 mL Orally every 8 hours for 5 days Oct, Not-Taking diphenhydrAMINE hydrochloride 25 mg oral capsule (2 sources) Histamine-1 Receptor Antagonist Start: 07-15-2024 End: 07-15-2024 take 1 dose by mouth once 50 mg, ORAL, ONCE, 1 dose, On 07/15/24 at 1100 Start: 01-17-2024 End: 01-17-2024 diphenhydrAMINE [...] Translations: [Multiple sclerosis] Onset: 04-24-2014 Chronic Mycoses (12 sources) Tinea pedis; Translations: [Tinea pedis] Onset: 07-30-2024 07-30-2024 Episodic Nutritional deficiencies (20 sources) Vitamin D deficiency; Translations: [Vitamin D deficiency, unspecified] Onset: 05-09-2022 05-12-2022 Chronic Other aftercare (20 sources) Patient encounter status; Translations: [Other vice president integrated (current) drug therapy] Onset: 07-14-2017 07-14-2017 Episodic Other aftercare (1 source) Other vice president integrated (current) drug therapy; Translations: [OTH NURSING HOME CURRENT DRUG THERAPY] Onset: 06-27-2022 Episodic Other [...] Insulin resistance; Translations: [Insulin resistance] Onset: 09-18-2023 09-18-2023 Chronic Other nutritional; endocrine; and metabolic disorders (20 sources) Severe obesity; Translations: [Class 3 severe obesity due to excess calories without serious comorbidity with body mass index (BMI) of 40.0 to 44.9 in adult ([facility])] Onset: 09-18-2023 06-24-2024 Chronic Other [...] current use of drug therapy; Translations: [Other longterm (current) drug therapy] Onset: 07-14-2017 07-14-2017 Episodic [...] Test Name Value Interpretation Reference Range Facility Fluoroscopy durationon 08-26 [place] [address] Fluoroscopy Report Signed Patient: NATALIE JAQUEZ MR#: [id number] : 1995 Acct:[id number] Age/Sex: 28 / F ADM Date: 08/19/24 Loc: SURGOUT Attending Dr: Amrik Mueller D.P.M. Ordering Physician: Amrik Mueller D.P.M. Date of Service: 08/19/24 Procedure(s): FL fluoroscopy <1hr NON-READ Accession Number(s): [id number] cc: Amrik Mueller D.P.M.; Jayme Schmidt M.D. [facility] [place] [id number] Patient Name: NATALIE JAQUEZ MRN: [facility]:[id number] date: 1995 Sex: F Assigned Patient Location: [facility] Current Patient Location: [facility] Accession/Order Number: [id number] Exam Date: 08/19/2024 12:20 Report Date: 08/26/2024 12:05 At the request of: AMRIK MUELLER Procedure: FL fluoroscopy <1hr NON-READ EXAM: FL fluoroscopy <1hr NON-READ HISTORY: TECHNIQUE: FINDINGS: Please see Operative Report. Electronically authenticated by: RADIOLOGIST ARACELI Date: 08/26/2024 12:05 Dictated By: AraceliRadiologist Signed By: 08/26/241207 DD/ 04 TD/TT: Business Performance Advisor: [facility] Radiology Radiologi MD [place] - 08/26/2024 [place] [address] Fluoroscopy Report Signed Patient: NATALIE JAQUEZ MR#: [id number] : 1995 Acct:[id number] Age/Sex: 28 / F ADM Date: 08/19/24 Loc: SURGOUT Attending Dr: Amrik Mueller D.P.M. Ordering Physician: Amrik Mueller D.P.M. Date of Service: 08/19/24 Procedure(s): FL fluoroscopy <1hr NON-READ Accession Number(s): [id number] cc: Amrik Mueller D.P.M.; Jayme Schmidt M.D. [place] [id number] Patient Name: NATALIE JAQUEZ MRN: [id number] date: 1995 Sex: F Assigned Patient Location: SURGOUT Current Patient Location: [facility] Accession/Order Number: [id number] Exam Date: 08/19/2024 12:20 Report Date: 08/26/2024 12:05 At the request of: AMRIK MUELLER Procedure: FL fluoroscopy <1hr NON-READ EXAM: FL fluoroscopy <1hr NON-READ HISTORY: TECHNIQUE: FINDINGS: Please see Operative Report. Electronically authenticated by: RADIOLOGIST NO Date: 08/26/2024 12:05 Dictated By: AraceliRadiologist Signed By: 08/26/24 1208 DD/ 1205 TD/TT: Business Performance Advisor: [facility] Radiology Study observation (narrative) [facility] Fluoroscopy durationOrdered By: Radiologist Radiology on 08-26-2024 [facility] Work Phone: XR FOOT LT MIN 3Von 08-20-[address] [place] [address] XRay Report Signed Patient: NATALIE JAQUEZ MR#: [id number] : 1995 Acct:[id number] Age/Sex: 28 / F ADM Date: 08/19/24 Loc: SURGOUT Attending Dr: Amrik Mueller D.P.M. Ordering Physician: Amrik Mueller D.P.M. Date of Service: 08/19/24 Procedure(s): XR foot LT min 3V Accession Number(s): [id number] cc: Amrik Mueller D.P.M.; Jayme Schmidt M.D. [address] [address] Patient Name: NATALIE JAQUEZ MRN: [id number] date: 1995 Sex: F Assigned Patient Location: SURGOUT Current Patient Location: Accession/Order Number: [id number] Exam Date: 08/19/2024 12:40 Report Date: 08/20/2024 05:37 At the request of: AMRIK MUELLER Procedure: XR foot LT min 3V PROCEDURE: XR foot LT min 3V HISTORY: Klein 5th metatarsal fx COMPARISON: XR foot left 07/28/2024 FINDINGS: BONES:Longitudinally placed screw within the 5th metatarsal for repair of proximal fracture with normal alignment maintained. SOFT TISSUES:Images were obtained through cast material which slightly limits evaluation. EFFUSION:None visible. OTHER: Negative. XR/XR foot LT min 3V IMPRESSION: 1. Surgical repair of 5th metatarsal fracture with normal alignment maintained. Electronically authenticated by: ESME WILLIAMSON Date: 08/20/2024 05:37 Dictated By: Esme Williamson M.D. Signed By: 08/20/24 0540 DD/ 0537 TD/TT: Business Performance Advisor: [facility] Radiology, Radiologi MD [place] - 08/20/2024 [place] [address] XRay Report Signed Patient: NATALIE JAQUEZ MR#: [id number] : 1995 Acct:[id number] Age/Sex: 28 / F ADM Date: 08/19/24 Loc: SURGOUT Attending Dr: Amrik Mueller D.P.M. Ordering Physician: Amrik Mueller D.P.M. Date of Service: 08/19/24 Procedure(s): XR foot LT min 3V Accession Number(s): [id number] cc: Amrik Mueller D.P.M.; Jayme Schmidt M.D. [facility] [place] [phone] Patient Name: NATALIE JAQUEZ MRN: [facility]:[id number] date: 1995 Sex: F Assigned Patient Location: SURGOUT Current Patient Location: Accession/Order Number: [id number] Exam Date: 08/19/2024 12:40 Report Date: 08/20/2024 05:37 At the request of: AMRIK MUELLER Procedure: XR foot LT min 3V PROCEDURE: XR foot LT min 3V HISTORY: Klein 5th metatarsal fx COMPARISON: XR foot left 07/28/2024 FINDINGS: BONES:Longitudinally placed screw within the 5th metatarsal for repair of proximal fracture with normal alignment maintained. SOFT TISSUES:Images were obtained through cast material which slightly limits evaluation. EFFUSION:None visible. OTHER: Negative. XR/XR foot LT min 3V IMPRESSION: 1. Surgical repair of 5th metatarsal fracture with normal alignment maintained. Electronically authenticated by: ESME WILLIAMSON Date: 08/20/2024 05:37 Dictated By: Esme Williamson M.D. Signed By: 08/20/2440 DD/ TD/TT: Business Performance Advisor: [facility] Radiology Study observation (narrative) [facility] XR FOOT LT MIN 3VOrdered By: Radiologist Radiology on 08-20-2024 [facility] Work Phone: ALL CBC WITH AUTO DIFFon Erythrocyte distribution width (RBC) [Ratio] 12.4 % 11.0 - 15.0 % [facility] Hematocrit (Bld) [Volume fraction] 42.5 % 36.0 - 48.0 % [facility] Hemoglobin (Bld) [Mass/Vol] 13.6 g/dL 12.0 - 16.0 g/dL [facility] Interpretation and review of laboratory results Abnormal [facility] MCH (RBC) [Entitic mass] 27.9 pg 26.7 - 34.0 pg [facility] MCHC (RBC) [Mass/Vol] 32 g/dL 29.9 - 35.2 g/dL [facility] MCV (RBC) [Entitic vol] 87.3 fL 81.0 - 99.0 fL [facility] Platelet mean volume (Bld) [Entitic vol] 9.3 fL Low 9.5 - 13.5 fL [facility] TBH PLT 418 [facility] TBH RBC 4.87 [facility] TB WBC 4.7 [facility] CLINISYNC [facility] MR Cervical spine WO and W c ontrast Teressa 07-18-2024 * * *Final Report* * * DATE OF EXAM: Jul 18 2024 2:37PM [facility] 0298 - MRI CERVICAL SPINE WO/W IVCON [...] history of multiple sclerosis. Cord T2 Plaque [place]: Mild New T2 Lesions: None Interval Cord [...] equal to 2mm). DIVISION OF RADIOLOGY Provider, [facility] - 07/18/2024 * * *Final Report* * * DATE OF EXAM: Jul 18 2024 2:37PM [facility] 0298 - MRI CERVICAL SPINE WO/W IVCON [...] history of multiple sclerosis. Cord T2 Plaque [place]: Mild New T2 Lesions: None Interval Cord [...] and assume there are 5 lumbar-type vertebrae. Business Performance Advisor: MYRTLE Transcribe Date/Time: Jul 18 2024 2:39P Dictated by : SAMMIE PACE MD This examination was interpreted and the report reviewed and electronically signed by: JAYA MARTINEZ MD on Jul 18 2024 3:53PM [facility] MR Thoracic spine WO and W c ontrast Teressa 07-18-2024 * * *Final Report* * * DATE OF EXAM: Jul 18 2024 2:37PM [facility] 0326 - MRI THORACIC SPINE WO/W IVCON [...] history of multiple sclerosis. Cord T2 Plaque [place]: Mild New T2 Lesions: None Interval Cord [...] 2mm). DIVISION OF RADIOLOGY Provider, Patricia Ludmila [facility] - 07/18/2024 * * *Final Report* * * DATE OF EXAM: Jul 18 2024 2:37PM [facility] 0326 - MRI THORACIC SPINE WO/W IVCON [...] history of multiple sclerosis. Cord T2 Plaque [place]: Mild New T2 Lesions: None Interval Cord [...] and assume there are 5 lumbar-type vertebrae. Business Performance Advisor: PSCB Transcribe Date/Time: Jul 18 2024 2:39P Dictated by : SAMMIE PACE MD This examination was interpreted and the report reviewed and electronically signed by: JAYA MARTINEZ MD on Jul 18 2024 3:53PM [facility] MRI CERVICAL SPINE WO/W IVCO Non 07-18-2024 MRI CERVICAL SPINE WO/W IVCON * * *Final Report* * * DATE OF EXAM: Jul 18 2024 2:37PM [facility] 0298 - MRI CERVICAL SPINE WO/W IVCON [...] history of multiple sclerosis. Cord T2 Plaque [place]: Mild New T2 Lesions: None Interval Cord [...] and assume there are 5 lumbar-type vertebrae. Business Performance Advisor: MYRTLE Transcribe Date/Time: Jul 18 2024 2:39P Dictated by : SAMMIE PACE MD This examination was interpreted and the report reviewed and electronically signed by: JAYA MARTINEZ MD on Jul 18 2024 3:53PM EST [id number] Normal [facility] MRI THORACIC SPINE WO/W IVCO Non 07-18-2024 MRI THORACIC SPINE WO/W IVCON * * *Final Report* * * DATE OF EXAM: Jul 18 2024 2:37PM [facility] 0326 - MRI THORACIC SPINE WO/W IVCON [...] history of multiple sclerosis. Cord T2 Plaque [place]: Mild New T2 Lesions: None Interval Cord [...] and assume there are 5 lumbar-type vertebrae. Business Performance Advisor: PSCB Transcribe Date/Time: Jul 18 2024 2:39P Dictated by : SAMMIE PACE MD This examination was interpreted and the report reviewed and electronically signed by: JAYA MARTINEZ MD on Jul 18 2024 3:53PM EST [id number] Normal [facility] No Panel Informationon 07-18 IMPRESSION: Scattered [...] and assume there are 5 lumbar-type vertebrae. Business Performance Advisor: MYRTLE Transcribe Date/Time: Jul 18 2024 2:39P Dictated by : SAMMIE PACE MD This examination was interpreted and the report reviewed and electronically signed by: JAYA MARTINEZ MD on Jul 18 2024 3:53PM [facility] DIVISION OF RADIOLOGY Radiology Study observation (narrative) [facility] No Panel InformationOrdered By: Ccf Provider on 07-18-2024 [facility] CBC W Auto Differential pane l (Bld)on 07-15-2024 Basophils (Bld) [#/Vol] [facility] Differential cell count method Nom (Bld) Auto [facility] Eosinophils (Bld) [#/Vol] [facility] Eosinophils/100 WBC (Bld) 0.0 % [facility] Immature granulocytes (Bld) [#/Vol] [facility] Immature granulocytes/100 WBC (Bld) 0.2 % [facility] Lymphocytes (Bld) [#/Vol] 0.57 10*3/uL Low [facility] Monocytes (Bld) [#/Vol] 0.10 10*3/uL [facility] Neutrophils (Bld) [#/Vol] 5.10 10*3/uL [facility] Neutrophils/100 WBC (Bld) 88.0 % [facility] Nucleated RBC (Bld) [#/Vol] [facility] Nucleated RBC/100 WBC (Bld) [Ratio] 0.0 % /100 WBC [facility] Platelet mean volume (Bld) [Entitic vol] 9.0 fL 9.0 - 12.7 fL [facility] Platelets (Bld) [#/Vol] 363 10*3/uL [facility] WBC (Bld) [#/Vol] 5.80 10*3/uL [facility] Basophils (Bld) [#/Vol] 10*3/uL Normal <0.11 [facility] Comment on above: Order Comment: Speci men Type: BLOOD SPECIMENOrdering Facility: [facility] Address: [address] [place] [address] Performed By: #### 5 7021-8 ####[facility] LABCLIA [id number] [place] [address] Basophils/100 WBC (Bld) 0.3 % Normal [facility] Comment on above: Order Comment: Speci men Type: BLOOD SPECIMENOrdering Facility: [facility] Address: [address] [place] [address] Performed By: #### 5 7021-8 ####[facility] LABCLIA [id number] [place] [address] Differential cell count method Nom (Bld) Auto Normal [facility] Comment on above: Order Comment: Speci men Type: BLOOD SPECIMENOrdering Facility: [facility] Address: [address] [place] [address] Performed By: #### 5 7021-8 ####[facility] LABCLIA [id number] [place] [address] Eosinophils (Bld) [#/Vol] 10*3/uL Normal <0.46 [facility] Comment on above: Order Comment: Speci men Type: BLOOD SPECIMENOrdering Facility: [facility] Address: [address] [place] [address] Performed By: #### 5 7021-8 ####[facility] LABCLIA [id number] [place] [address] Eosinophils/100 WBC (Bld) 0.0 % Normal [facility] Comment on above: Order Comment: Speci men Type: BLOOD SPECIMENOrdering Facility: [facility] Address: [address] [place] [address] Performed By: #### 5 7021-8 ####[facility] LABCLIA [id number] [place] [address] Erythrocyte distribution width (RBC) [Ratio] 13.1 % Normal 11.5-15.0 [facility] Comment on above: Order Comment: Speci men Type: BLOOD SPECIMENOrdering Facility: [facility] Address: [address] [place] [address] Performed By: #### 5 7021-8 ####[facility] LABCLIA [id number] [place] [address] Hematocrit (Bld) [Volume fraction] 46.2 % High 36.0-46.0 [facility] Comment on above: Order Comment: Speci men Type: BLOOD SPECIMENOrdering Facility: [facility] Address: [address] [place] [address] Performed By: #### 5 7021-8 ####[facility] LABCLIA [id number] [place] [address] Hemoglobin (Bld) [Mass/Vol] 15.3 g/dL Normal 11.5-15.5 [facility] Comment on above: Order Comment: Speci men Type: BLOOD SPECIMENOrdering Facility: [facility] Address: [address] [place] [address] Performed By: #### 5 7021-8 ####[facility] LABCLIA [id number] [place] [address] Immature granulocytes (Bld) [#/Vol] 10*3/uL Normal <0.10 [facility] Comment on above: Order Comment: Speci men Type: BLOOD SPECIMENOrdering Facility: [facility] Address: [address] [place] [address] Performed By: #### 5 7021-8 ####[facility] LABCLIA [id number] [place] [address] Immature granulocytes/100 WBC (Bld) 0.2 % Normal [facility] Comment on above: Order Comment: Speci men Type: BLOOD SPECIMENOrdering Facility: [facility] Address: [address] [place] [address] Performed By: #### 5 7021-8 ####[facility] LABCLIA [id number] [place] [address] Lymphocytes (Bld) [#/Vol] 0.57 10*3/uL Low 1.00-4.00 [facility] Comment on above: Order Comment: Speci men Type: BLOOD SPECIMENOrdering Facility: [facility] Address: [address] [place] [address] Performed By: #### 5 7021-8 ####[facility] LABCLIA [id number] [place] [address] Lymphocytes/100 WBC (Bld) 9.8 % Normal [facility] Comment on above: Order Comment: Speci men Type: BLOOD SPECIMENOrdering Facility: [facility] Address: [address] [place] [address] Performed By: #### 5 7021-8 ####[facility] LABCLIA [id number] [place] [address] MCH (RBC) [Entitic mass] 28.4 pg Normal 26.0-34.0 [facility] Comment on above: Order Comment: Speci men Type: BLOOD SPECIMENOrdering Facility: [facility] Address: [address] [place] [address] Performed By: #### 5 7021-8 ####[facility] LABCLIA [id number] [place] [address] MCHC (RBC) [Mass/Vol] 33.1 g/dL Normal 30.5-36.0 [facility] Comment on above: Order Comment: Speci men Type: BLOOD SPECIMENOrdering Facility: [facility] Address: [address] [place] [address] Performed By: #### 5 7021-8 ####[facility] LABIA [id number] [place] [address] MCV (RBC) [Entitic vol] 85.9 fL Normal 80.0-100.0 [facility] Comment on above: Order Comment: Speci men Type: BLOOD SPECIMENOrdering Facility: [facility] Address: [address] [place] [address] Performed By: #### 5 7021-8 ####[facility] LABCLIA [id number] [place] [address] Monocytes (Bld) [#/Vol] 0.10 10*3/uL Normal <0.87 [facility] Comment on above: Order Comment: Speci men Type: BLOOD SPECIMENOrdering Facility: [facility] Address: [address] [place] [address] Performed By: #### 5 7021-8 ####[facility] LABCLIA [id number] [place] [address] Monocytes/100 WBC (Bld) 1.7 % Normal [facility] Comment on above: Order Comment: Speci men Type: BLOOD SPECIMENOrdering Facility: [facility] Address: [address] [place] [address] Performed By: #### 5 7021-8 ####[facility] LABCLIA [id number] [place] [address] Neutrophils (Bld) [#/Vol] 5.10 10*3/uL Normal 1.45-7.50 [facility] Comment on above: Order Comment: Speci men Type: BLOOD SPECIMENOrdering Facility: [facility] Address: [address] [place] [address] Performed By: #### 5 7021-8 ####[facility] LABCLIA [id number] [place] [address] Neutrophils/100 WBC (Bld) 88.0 % Normal [facility] Comment on above: Order Comment: Speci men Type: BLOOD SPECIMENOrdering Facility: [facility] Address: [address] [place] [address] Performed By: #### 5 7021-8 ####[facility] LABCLIA [id number] [place] [address] Nucleated RBC (Bld) [#/Vol] 10*3/uL Normal <0.01 [facility] Comment on above: Order Comment: Speci men Type: BLOOD SPECIMENOrdering Facility: [facility] Address: [address] [place] [address] Performed By: #### 5 7021-8 ####[facility] LABCLIA [id number] [place] [address] Nucleated RBC/100 WBC (Bld) [Ratio] 0.0 /100 WBC Normal [facility] Comment on above: Order Comment: Speci men Type: BLOOD SPECIMENOrdering Facility: [facility] Address: [address] [place] [address] Performed By: #### 5 7021-8 ####[facility] LABCLIA [id number] [place] [address] Platelet mean volume (Bld) [Entitic vol] 9.0 fL Normal 9.0-12.7 [facility] Comment on above: Order Comment: Speci men Type: BLOOD SPECIMENOrdering Facility: [facility] Address: [address] [place] [address] Performed By: #### 5 7021-8 ####[facility] LABCLIA [id number] [place] [address] Platelets (Bld) [#/Vol] 363 10*3/uL Normal 150-400 [facility] Comment on above: Order Comment: Speci men Type: BLOOD SPECIMENOrdering Facility: [facility] Address: [address] [place] [address] Performed By: #### 5 7021-8 ####[facility] LABCLIA [id number] [place] [address] RBC (Bld) [#/Vol] 5.38 10*6/uL High 3.90-5.20 [facility] Comment on above: Order Comment: Speci men Type: BLOOD SPECIMENOrdering Facility: [facility] Address: [address] [place] [address] Performed By: #### 5 7021-8 ####[facility] LABCLIA [id number] [place] [address] WBC (Bld) [#/Vol] 5.80 10*3/uL Normal 3.70-11.00 [facility] Comment on above: Order Comment: Speci men Type: BLOOD SPECIMENOrdering Facility: [facility] Address: [address] [place] [address] Performed By: #### 5 7021-8 ####[facility] LABCLIA [id number] [place] [address] [facility] CBC W AUTO DIFF BLDon [facility] BASOPHILS # BLD AUTO <0.03 [facility] DIFFERENTIAL METHOD BLD Auto [facility] EOSINOPHIL # BLD AUTO <0.03 [facility] LYMPHOCYTES # BLD AUTO 0.57 Low [facility] MONOCYTES # BLD AUTO 0.1 [facility] NEUTROPHILS # BLD AUTO 5.1 [facility] NRBC # BLD AUTO <0.01 [facility] NRBC/100 WBC BLD-RTO 0 /100 WBC [facility] PLATELET # BLD AUTO 363 [facility] PMV BLD AUTO 9 fL 9.0 - 12.7 fL [facility] WBC # BLD AUTO 5.8 [facility] Eosinophils/100 WBC (Bld) 0 % [facility] IMM GRANULOCYTES # BLD AUTO <0.03 [facility] IMM GRANULOCYTES/LEUK NFR BLD AUTO 0.2 % [facility] Neutrophils/100 WBC (Bld) 88 % [facility] Specimen Type: BLOOD SPECIMEN Ordering Facility: [facility] Address: [address] [place] [address] Original Ordering Provider: YOLY GARCIA CD19 ABSOLUTE COUNTon 2023 CD3-CD19+ cells (Bld) [#/Vol] 0 cells/uL Low 75-660 [facility] Comment on above: Order Comment: Speci men Type: BLOOD SPECIMENOrdering Facility: [facility] Address: [address] [place] [address] Performed By: #### A BS19 ####[facility] LABCLIA [id number] [place] [address] [place] CD3-CD19+ cells/100 cells (Bld) 0 % Low 5-22 [facility] Comment on above: Order Comment: Speci men Type: BLOOD SPECIMENOrdering Facility: [facility] Address: [address] [place] [address] Performed By: #### A BS19 ####[facility] LABCLIA [id number] [place] [address] [place] Lymphocytes/100 WBC FC (Bld) Normal [facility] Comment on above: Order Comment: Speci men Type: BLOOD SPECIMENOrdering Facility: [facility] Address: [address] [place] [address] Performed By: #### A BS19 ####[facility] LABCLIA [id number] [place] [address] [place] Comprehensive metabolic 2000 panelon 07-15-2024 Albumin [Mass/Vol] 4.1 g/dL Normal 3.9-4.9 [facility] Comment on above: Order Comment: Speci men Type: BLOOD SPECIMENOrdering Facility: [facility] Address: [address] [place] [address] Performed By: #### 2 4323-8 ####[facility] LABCLIA [id number] [place] [address] ALP [Catalytic activity/Vol] 95 U/L Normal 34-123 [facility] Comment on above: Order Comment: Speci men Type: BLOOD SPECIMENOrdering Facility: [facility] Address: [address] [place] [address] Performed By: #### 2 4323-8 ####[facility] LABCLIA [id number] [place] [address] ALT [Catalytic activity/Vol] 40 U/L High 7-38 [facility] Comment on above: Order Comment: Speci men Type: BLOOD SPECIMENOrdering Facility: [facility] Address: [address] [place] [address] Performed By: #### 2 4323-8 ####[facility] LABCLIA [id number] [place] [address] Anion gap [Moles/Vol] 8 mmol/L Normal 8-15 [facility] Comment on above: Order Comment: Speci men Type: BLOOD SPECIMENOrdering Facility: [facility] Address: [address] [place] [address] Performed By: #### 2 4323-8 ####[facility] LABCLIA [id number] [place] [address] AST [Catalytic activity/Vol] 38 U/L High 13-35 [facility] Comment on above: Order Comment: Speci men Type: BLOOD SPECIMENOrdering Facility: [facility] Address: [address] [place] [address] Performed By: #### 2 4323-8 ####[facility] LABCLIA [id number] [place] [address] Bilirubin [Mass/Vol] 0.4 mg/dL Normal 0.2-1.3 [facility] Comment on above: Order Comment: Speci men Type: BLOOD SPECIMENOrdering Facility: [facility] Address: [address] [place] [address] Performed By: #### 2 4323-8 ####[facility] LABCLIA [id number] [place] [address] Calcium [Mass/Vol] 8.7 mg/dL Normal 8.5-10.2 [facility] Comment on above: Order Comment: Speci men Type: BLOOD SPECIMENOrdering Facility: [facility] Address: [address] [place] [address] Performed By: #### 2 4323-8 ####[facility] LABCLIA [id number] [place] [address] Chloride [Moles/Vol] 104 mmol/L Normal 98-107 [facility] Comment on above: Order Comment: Speci men Type: BLOOD SPECIMENOrdering Facility: [facility] Address: [address] [place] [address] Performed By: #### 2 4323-8 ####[facility] LABCLIA [id number] [place] [address] CO2 [Moles/Vol] 25 mmol/L Normal 22-30 [facility] Comment on above: Order Comment: Speci men Type: BLOOD SPECIMENOrdering Facility: [facility] Address: [address] [place] [address] Performed By: #### 2 4323-8 ####[facility] LABCLIA [id number] [place] [address] Creatinine [Mass/Vol] 0.74 mg/dL Normal 0.58-0.96 [facility] Comment on above: Order Comment: Speci men Type: BLOOD SPECIMENOrdering Facility: [facility] Address: [address] [place] [address] Performed By: #### 2 4323-8 ####[facility] LABCLIA [id number] [place] [address] Creatinine and Glomerular filtration rate.predicted panel (S/P/Bld) 115 mL/min/1.73m??? Normal >=60 [facility] Comment on above: Order Comment: Speci men Type: BLOOD SPECIMENOrdering Facility: [facility] Address: [address] [place] [address] Result Comment: Kamala mated Glomerular Filtration Rate [...] actual GFR. Performed By: #### 2 4323-8 ####[facility] LABCLIA [id number] [place] [address] Glucose [Mass/Vol] 136 mg/dL High 74-99 [facility] Comment on above: Order Comment: Speci men Type: BLOOD SPECIMENOrdering Facility: [facility] Address: [address] [place] [address] Result Comment: The [place] [employer] (ADA) provides guidance for cutoff [...] Standards of Medical Care in Diabetes 2016, [place] [employer]. Diabetes Care. 2016.39(Suppl 1). Performed By: #### 2 4323-8 ####[facility] LABCLIA [id number] [place] [address] Potassium [Moles/Vol] 4.0 mmol/L Normal 3.7-5.1 [facility] Comment on above: Order Comment: Speci men Type: BLOOD SPECIMENOrdering Facility: [facility] Address: [address] [place] [address] Performed By: #### 2 4323-8 ####[facility] LABCLIA [id number] [place] [address] Protein [Mass/Vol] 6.4 g/dL Normal 6.3-8.0 [facility] Comment on above: Order Comment: Speci men Type: BLOOD SPECIMENOrdering Facility: [facility] Address: [address] [place] [address] Performed By: #### 2 4323-8 ####[facility] LABCLIA [id number] [place] [address] Sodium [Moles/Vol] 137 mmol/L Normal 136-144 [facility] Comment on above: Order Comment: Speci men Type: BLOOD SPECIMENOrdering Facility: [facility] Address: [address] [place] [address] Performed By: #### 2 4323-8 ####[facility] LABCLIA [id number] [place] [address] Urea nitrogen [Mass/Vol] 13 mg/dL Normal 7-21 [facility] Comment on above: Order Comment: Speci men Type: BLOOD SPECIMENOrdering Facility: [facility] Address: [address] [place] [address] Performed By: #### 2 4323-8 ####[facility] LABCLIA [id number] [place] [address] IgG SerPl-mCncon 07-15-2024 IgG [Mass/Vol] 511 mg/dL Low 700-1600 [facility] Comment on above: Order Comment: Speci men Type: BLOOD SPECIMEN Ordering Facility: [facility] Address: [address] [place] [address] Performed By: #### 2 465-3 #### [facility] CLIA [id number] [address] [place], [place] [address] [place] [facility] Laboratory - Hematology and Cell countson 07-15-2024 Basophils/100 WBC (Bld) 0.3 % [facility] Erythrocyte distribution width (RBC) [Ratio] 13.1 % 11.5 - 15.0 % [facility] Hematocrit (Bld) [Volume fraction] 46.2 % High 36.0 - 46.0 % [facility] Hemoglobin (Bld) [Mass/Vol] 15.3 g/dL 11.5 - 15.5 g/dL [facility] Lymphocytes/100 WBC (Bld) 9.8 % [facility] MCH (RBC) [Entitic mass] 28.4 pg 26.0 - 34.0 pg [facility] MCHC (RBC) [Mass/Vol] 33.1 g/dL 30.5 - 36.0 g/dL [facility] MCV (RBC) [Entitic vol] 85.9 fL 80.0 - 100.0 fL [facility] Monocytes/100 WBC (Bld) 1.7 % [facility] RBC (Bld) [#/Vol] 5.38 10*6/uL High 3.90 - 5.20 m/uL [facility] No Panel Informationon 07-15 Interpretation and review of laboratory results Abnormal [facility] CNCOon 05-29-2024 CNCO Letter Text Normal [facility] CNPNon 04-25-2024 CNPN Telephone ([facility]) NATALIE JAQUEZ ([id number]) 1995 F Date Time Provider Department 04/25/24 [...] Assessed Reason for Visit: Appointment [186] Cmt: lvm for patient to call so we [...] Status:Closed by MEEK ROMERO on 04/25/24 Normal [facility] IGP,APTIMA HPV,AGE GDLNon AGE GDLN ACOG TESTING Note . [facility] Comment on above: TESTS RESULT FLAG UN ITS REF RANGE LAB Clinician Provided Cytology Information Source.............Cervix;Endocervix No. of containers..01 ThinPrep Vial Age Algo ACOG Radha... FLAG LEGEND: L-Low Normal,H-High Normal,LL-Alert Low,HH-Alert High <-Panic Low,>-Panic High,A-Abnormal,AA-Critical Abnormal Performed at: 01 =G [facility] [address] Radha Young MD, IGP, RFX APTIMA HPV ASCU Note . [facility] Comment on above: TESTS RESULT FLAG UN ITS REF RANGE LAB DIAGNOSIS: 02 NEGATIVE FOR INTRAEPITHELIAL LESION OR MALIGNANCY. Specimen adequacy: 02 Satisfactory for evaluation. Endocervical and/or squamous metaplastic cells (endocervical component) are present. Performed by: 02 Aliya Porter, Tissue Packer ([facility]) . 02 Note: Note 03 The [...] <-Panic Low,>-Panic High,A-Abnormal,AA-Critical Abnormal Performed at: [address] [place] [address] Duyen García PhD, [address] [address] Radha Young MD, Performed at: = - [facility] [id number] [employer]: Radha Young MD, Phone: [phone] Performed at: [address], [place] [id number] [employer]: Duyen García PhD, Phone: [phone] BRUSH-SPATULA CERVIX ENDOCERVIX [facility] CBC W Auto Differential pane l (Bld)on 01-17-2024 Basophils (Bld) [#/Vol] 0.03 10*3/uL [facility] Basophils/100 WBC (Bld) 0.3 % [facility] Differential cell count method Nom (Bld) Auto [facility] Eosinophils (Bld) [#/Vol] 0.14 10*3/uL [facility] Eosinophils/100 WBC (Bld) 1.4 % [facility] Erythrocyte distribution width (RBC) [Ratio] 12.7 % 11.5 - 15.0 % [facility] Hematocrit (Bld) [Volume fraction] 42.7 % 36.0 - 46.0 % [facility] Hemoglobin (Bld) [Mass/Vol] 13.9 g/dL 11.5 - 15.5 g/dL [facility] Immature granulocytes (Bld) [#/Vol] 0.04 10*3/uL [facility] Immature granulocytes/100 WBC (Bld) 0.4 % [facility] Lymphocytes (Bld) [#/Vol] 1.66 10*3/uL [facility] Lymphocytes/100 WBC (Bld) 17.0 % [facility] MCH (RBC) [Entitic mass] 28.7 pg 26.0 - 34.0 pg [facility] MCHC (RBC) [Mass/Vol] 32.6 g/dL 30.5 - 36.0 g/dL [facility] MCV (RBC) [Entitic vol] 88.0 fL 80.0 - 100.0 fL [facility] Monocytes (Bld) [#/Vol] 0.47 10*3/uL [facility] Monocytes/100 WBC (Bld) 4.8 % [facility] Neutrophils (Bld) [#/Vol] 7.41 10*3/uL [facility] Neutrophils/100 WBC (Bld) 76.1 % [facility] Nucleated RBC (Bld) [#/Vol] [facility] Nucleated RBC/100 WBC (Bld) [Ratio] 0.0 % /100 WBC [facility] Platelet mean volume (Bld) [Entitic vol] 9.7 fL 9.0 - 12.7 fL [facility] Platelets (Bld) [#/Vol] 346 10*3/uL [facility] RBC (Bld) [#/Vol] 4.85 10*6/uL 3.90 - 5.20 m/uL [facility] WBC (Bld) [#/Vol] 9.75 10*3/uL [facility] Basophils (Bld) [#/Vol] 0.03 10*3/uL Normal <0.11 [facility] Comment on above: Order Comment: Speci men Type: BLOOD SPECIMENOrdering Facility: [facility] Address: [address] [place] [address] Performed By: #### 5 7021-8 ####[facility] LABCLIA [id number] [place] [address] Basophils/100 WBC (Bld) 0.3 % Normal [facility] Comment on above: Order Comment: Speci men Type: BLOOD SPECIMENOrdering Facility: [facility] Address: [address] [place] [address] Performed By: #### 5 7021-8 ####[facility] LABCLIA [id number] [place] [address] Differential cell count method Nom (Bld) Auto Normal [facility] Comment on above: Order Comment: Speci men Type: BLOOD SPECIMENOrdering Facility: [facility] Address: [address] [place] [address] Performed By: #### 5 7021-8 ####[facility] LABCLIA [id number] [place] [address] Eosinophils (Bld) [#/Vol] 0.14 10*3/uL Normal <0.46 [facility] Comment on above: Order Comment: Speci men Type: BLOOD SPECIMENOrdering Facility: [facility] Address: [address] [place] [address] Performed By: #### 5 7021-8 ####[facility] LABCLIA [id number] [place] [address] Eosinophils/100 WBC (Bld) 1.4 % Normal [facility] Comment on above: Order Comment: Speci men Type: BLOOD SPECIMENOrdering Facility: [facility] Address: [address] [place] [address] Performed By: #### 5 7021-8 ####[facility] LABCLIA [id number] [place] [address] Erythrocyte distribution width (RBC) [Ratio] 12.7 % Normal 11.5-15.0 [facility] Comment on above: Order Comment: Speci men Type: BLOOD SPECIMENOrdering Facility: [facility] Address: [address] [place] [address] Performed By: #### 5 7021-8 ####[facility] LABCLIA [id number] [place] [address] Hematocrit (Bld) [Volume fraction] 42.7 % Normal 36.0-46.0 [facility] Comment on above: Order Comment: Speci men Type: BLOOD SPECIMENOrdering Facility: [facility] Address: [address] [place] [address] Performed By: #### 5 7021-8 ####[facility] LABCLIA [id number] [place] [address] Hemoglobin (Bld) [Mass/Vol] 13.9 g/dL Normal 11.5-15.5 [facility] Comment on above: Order Comment: Speci men Type: BLOOD SPECIMENOrdering Facility: [facility] Address: [address] [place] [address] Performed By: #### 5 7021-8 ####[facility] LABCLIA [id number] [place] [address] Immature granulocytes (Bld) [#/Vol] 0.04 10*3/uL Normal <0.10 [facility] Comment on above: Order Comment: Speci men Type: BLOOD SPECIMENOrdering Facility: [facility] Address: [address] [place] [address] Performed By: #### 5 7021-8 ####[facility] LABCLIA [id number] [place] [address] Immature granulocytes/100 WBC (Bld) 0.4 % Normal [facility] Comment on above: Order Comment: Speci men Type: BLOOD SPECIMENOrdering Facility: [facility] Address: [address] [place] [address] Performed By: #### 5 7021-8 ####[facility] LABCLIA [id number] [place] [address] Lymphocytes (Bld) [#/Vol] 1.66 10*3/uL Normal 1.00-4.00 [facility] Comment on above: Order Comment: Speci men Type: BLOOD SPECIMENOrdering Facility: [facility] Address: [address] [place] [address] Performed By: #### 5 7021-8 ####[facility] LABCLIA [id number] [place] [address] Lymphocytes/100 WBC (Bld) 17.0 % Normal [facility] Comment on above: Order Comment: Speci men Type: BLOOD SPECIMENOrdering Facility: [facility] Address: [address] [place] [address] Performed By: #### 5 7021-8 ####[facility] LABCLIA [id number] [place] [address] MCH (RBC) [Entitic mass] 28.7 pg Normal 26.0-34.0 [facility] Comment on above: Order Comment: Speci men Type: BLOOD SPECIMENOrdering Facility: [facility] Address: [address] [place] [address] Performed By: #### 5 7021-8 ####[facility] LABCLIA [id number] [place] [address] MCHC (RBC) [Mass/Vol] 32.6 g/dL Normal 30.5-36.0 [facility] Comment on above: Order Comment: Speci men Type: BLOOD SPECIMENOrdering Facility: [facility] Address: [address] [place] [address] Performed By: #### 5 7021-8 ####[facility] LABCLIA [id number] [place] [address] MCV (RBC) [Entitic vol] 88.0 fL Normal 80.0-100.0 [facility] Comment on above: Order Comment: Speci men Type: BLOOD SPECIMENOrdering Facility: [facility] Address: [address] [place] [address] Performed By: #### 5 7021-8 ####[facility] LABCLIA [id number] [place] [address] Monocytes (Bld) [#/Vol] 0.47 10*3/uL Normal <0.87 [facility] Comment on above: Order Comment: Speci men Type: BLOOD SPECIMENOrdering Facility: [facility] Address: [address] [place] [address] Performed By: #### 5 7021-8 ####[facility] LABIA [id number] [place] [address] Monocytes/100 WBC (Bld) 4.8 % Normal [facility] Comment on above: Order Comment: Speci men Type: BLOOD SPECIMENOrdering Facility: [facility] Address: [address] [place] [address] Performed By: #### 5 7021-8 ####[facility] LABCLIA [id number] [place] [address] Neutrophils (Bld) [#/Vol] 7.41 10*3/uL Normal 1.45-7.50 [facility] Comment on above: Order Comment: Speci men Type: BLOOD SPECIMENOrdering Facility: [facility] Address: [address] [place] [address] Performed By: #### 5 7021-8 ####[facility] LABCLIA [id number] [place] [address] Neutrophils/100 WBC (Bld) 76.1 % Normal [facility] Comment on above: Order Comment: Speci men Type: BLOOD SPECIMENOrdering Facility: [facility] Address: [address] [place] [address] Performed By: #### 5 7021-8 ####[facility] LABCLIA [id number] [place] [address] Nucleated RBC (Bld) [#/Vol] 10*3/uL Normal <0.01 [facility] Comment on above: Order Comment: Speci men Type: BLOOD SPECIMENOrdering Facility: [facility] Address: [address] [place] [address] Performed By: #### 5 7021-8 ####[facility] LABCLIA [id number] [place] [address] Nucleated RBC/100 WBC (Bld) [Ratio] 0.0 /100 WBC Normal [facility] Comment on above: Order Comment: Speci men Type: BLOOD SPECIMENOrdering Facility: [facility] Address: [address] [place] [address] Performed By: #### 5 7021-8 ####[facility] LABCLIA [id number] [place] [address] Platelet mean volume (Bld) [Entitic vol] 9.7 fL Normal 9.0-12.7 [facility] Comment on above: Order Comment: Speci men Type: BLOOD SPECIMENOrdering Facility: [facility] Address: [address] [place] [address] Performed By: #### 5 7021-8 ####[facility] LABCLIA [id number] [place] [address] Platelets (Bld) [#/Vol] 346 10*3/uL Normal 150-400 [facility] Comment on above: Order Comment: Speci men Type: BLOOD SPECIMENOrdering Facility: [facility] Address: [address] [place] [address] Performed By: #### 5 7021-8 ####[facility] LABCLIA [id number] [place] [address] RBC (Bld) [#/Vol] 4.85 10*6/uL Normal 3.90-5.20 [facility] Comment on above: Order Comment: Speci men Type: BLOOD SPECIMENOrdering Facility: [facility] Address: [address] [place] [address] Performed By: #### 5 7021-8 ####[facility] LABCLIA [id number] [place] [address] WBC (Bld) [#/Vol] 9.75 10*3/uL Normal 3.70-11.00 [facility] Comment on above: Order Comment: Speci men Type: BLOOD SPECIMENOrdering Facility: [facility] Address: [address] [place] [address] Performed By: #### 5 7021-8 ####[facility] LABCLIA [id number] [place] [address] CD19 ABSOLUTE COUNTon 2023 CD3-CD19+ cells (Bld) [#/Vol] 0 cells/uL Low 75-660 [facility] Comment on above: Order Comment: Speci men Type: BLOOD SPECIMENOrdering Facility: [facility] Address: [address] [place] [address] Performed By: #### A BS19 ####[facility] LABCLIA [id number] [place] [address] [place] CD3-CD19+ cells/100 cells (Bld) 0 % Low 5-22 [facility] Comment on above: Order Comment: Speci men Type: BLOOD SPECIMENOrdering Facility: [facility] Address: [address] [place] [address] Performed By: #### A BS19 ####[facility] LABCLIA [id number] [place] [address] [place] Lymphocytes/100 WBC FC (Bld) Normal [facility] Comment on above: Order Comment: Speci men Type: BLOOD SPECIMENOrdering Facility: [facility] Address: [address] [place] [address] Performed By: #### A BS19 ####[facility] LABCLIA [id number] [place] [address] [place] Comprehensive metabolic 2000 panelOrdered By: Josh Durham on 01-17-2024 Albumin [Mass/Vol] 3.9 g/dL 3.9 - 4.9 g/dL [facility] ALP [Catalytic activity/Vol] 89 U/L 34 - 123 U/L [facility] ALT [Catalytic activity/Vol] 23 U/L 7 - 38 U/L [facility] Anion gap [Moles/Vol] 5 mmol/L Low 8 - 15 mmol/L [facility] AST [Catalytic activity/Vol] 18 U/L 13 - 35 U/L [facility] Bilirubin [Mass/Vol] 0.3 mg/dL 0.2 - 1 .3 mg/dL [facility] Calcium [Mass/Vol] 9.5 mg/dL 8.5 - 10. 2 mg/dL [facility] Chloride [Moles/Vol] 105 mmol/L 98 - 10 7 mmol/L [facility] CO2 [Moles/Vol] 30 mmol/L 22 - 30 mmol/L [facility] Creatinine [Mass/Vol] 0.84 mg/dL 0.58 - 0.96 mg/dL [facility] GFR/1.73 sq M.predicted among non-blacks MDRD (S/P/Bld) [Vol rate/Area] 98 mL/min/{1.73_m2} - PINF [facility] Comment on above: Estimated Glomerular Filtration [...] 103 mg/dL High 74 - 99 mg/dL [facility] Comment on above: The [place] Diab[employer] s Association (ADA) provides guidance for [...] Standards of Medical Care in Diabetes 2016, [place] [employer]. Diabetes Care. 2016.39(Suppl 1). Interpretation and review of laboratory results Abnormal [facility] Potassium [Moles/Vol] 4.5 mmol/L 3.7 - 5.1 mmol/L [facility] Protein [Mass/Vol] 6.3 g/dL 6.3 - 8.0 g/dL [facility] Sodium [Moles/Vol] 140 mmol/L 136 - 144 mmol/L [facility] Urea nitrogen [Mass/Vol] 13 mg/dL 7 - 21 mg/dL [facility] Comprehensive metabolic 2000 panelon 01-17-2024 Albumin [Mass/Vol] 3.9 g/dL Normal 3.9-4.9 [facility] Comment on above: Order Comment: Speci men Type: BLOOD SPECIMENOrdering Facility: [facility] Address: [address] [place] [address] Performed By: #### 2 4323-8 ####[facility] LABCLIA [id number] [place] [address] ALP [Catalytic activity/Vol] 89 U/L Normal 34-123 [facility] Comment on above: Order Comment: Speci men Type: BLOOD SPECIMENOrdering Facility: [facility] Address: [address] [place] [address] Performed By: #### 2 4323-8 ####[facility] LABCLIA [id number] [place] [address] ALT [Catalytic activity/Vol] 23 U/L Normal 7-38 [facility] Comment on above: Order Comment: Speci men Type: BLOOD SPECIMENOrdering Facility: [facility] Address: [address] [place] [address] Performed By: #### 2 4323-8 ####[facility] LABCLIA [id number] [place] [address] Anion gap [Moles/Vol] 5 mmol/L Low 8-15 [facility] Comment on above: Order Comment: Speci men Type: BLOOD SPECIMENOrdering Facility: [facility] Address: [address] [place] [address] Performed By: #### 2 4323-8 ####[facility] LABCLIA [id number] [place] [address] AST [Catalytic activity/Vol] 18 U/L Normal 13-35 [facility] Comment on above: Order Comment: Speci men Type: BLOOD SPECIMENOrdering Facility: [facility] Address: [address] [place] [address] Performed By: #### 2 4323-8 ####[facility] LABCLIA [id number] [place] [address] Bilirubin [Mass/Vol] 0.3 mg/dL Normal 0.2-1.3 [facility] Comment on above: Order Comment: Speci men Type: BLOOD SPECIMENOrdering Facility: [facility] Address: [address] [place] [address] Performed By: #### 2 4323-8 ####[facility] LABCLIA [id number] [place] [address] Calcium [Mass/Vol] 9.5 mg/dL Normal 8.5-10.2 [facility] Comment on above: Order Comment: Speci men Type: BLOOD SPECIMENOrdering Facility: [facility] Address: [address] [place] [address] Performed By: #### 2 4323-8 ####[facility] LABCLIA [id number] [place] [address] Chloride [Moles/Vol] 105 mmol/L Normal 98-107 [facility] Comment on above: Order Comment: Speci men Type: BLOOD SPECIMENOrdering Facility: [facility] Address: [address] [place] [address] Performed By: #### 2 4323-8 ####[facility] LABCLIA [id number] [place] [address] CO2 [Moles/Vol] 30 mmol/L Normal 22-30 [facility] Comment on above: Order Comment: Speci men Type: BLOOD SPECIMENOrdering Facility: [facility] Address: [address] [place] [address] Performed By: #### 2 4323-8 ####[facility] LABCLIA [id number] [place] [address] Creatinine [Mass/Vol] 0.84 mg/dL Normal 0.58-0.96 [facility] Comment on above: Order Comment: Speci men Type: BLOOD SPECIMENOrdering Facility: [facility] Address: [address] [place] [address] Performed By: #### 2 4323-8 ####[facility] LABCLIA [id number] [place] [address] Creatinine and Glomerular filtration rate.predicted panel (S/P/Bld) 98 mL/min/1.73m??? Normal >=60 [facility] Comment on above: Order Comment: Speci men Type: BLOOD SPECIMENOrdering Facility: [facility] Address: [address] [place] [address] Result Comment: Kamala mated Glomerular Filtration Rate [...] actual GFR. Performed By: #### 2 4323-8 ####[facility] LABIA [id number] [place] [address] Glucose [Mass/Vol] 103 mg/dL High 74-99 [facility] Comment on above: Order Comment: Speci men Type: BLOOD SPECIMENOrdering Facility: [facility] Address: [address] [place], [place] [address] Result Comment: The [place] Diabetes Association (ADA) provides guidance for cutoff [...] Standards of Medical Care in Diabetes 2016, [place] [employer]. Diabetes Care. 2016.39(Suppl 1). Performed By: #### 2 4323-8 ####[facility] LABIA [id number] [place] [address] Potassium [Moles/Vol] 4.5 mmol/L Normal 3.7-5.1 [facility] Comment on above: Order Comment: Speci men Type: BLOOD SPECIMENOrdering Facility: [facility] Address: [address] [place] [address] Performed By: #### 2 4323-8 ####[facility] LABIA [id number] [place] [address] Protein [Mass/Vol] 6.3 g/dL Normal 6.3-8.0 [facility] Comment on above: Order Comment: Balbiri men Type: BLOOD SPECIMENOrdering Facility: [facility] Address: [address] [place] [address] Performed By: #### 2 4323-8 ####[facility] LABCLIA [id number] [place] [address] Sodium [Moles/Vol] 140 mmol/L Normal 136-144 [facility] Comment on above: Order Comment: Speci men Type: BLOOD SPECIMENOrdering Facility: [facility] Address: [address] [place] [address] Performed By: #### 2 4323-8 ####[facility] LABCLIA [id number] [place] [address] Urea nitrogen [Mass/Vol] 13 mg/dL Normal 7-21 [facility] Comment on above: Order Comment: Speci men Type: BLOOD SPECIMENOrdering Facility: [facility] Address: [address] [place] [address] Performed By: #### 2 4323-8 ####[facility] LABCLIA [id number] [place] [address] IMMUNOGLOBULIN Aaron IgG [Mass/Vol] 459 mg/dL Low 700 - 1600 mg/dL [facility] IgG SerPl-mCncon 01-17-2024 IgG [Mass/Vol] 459 mg/dL Low 700-1600 [facility] Comment on above: Order Comment: Speci men Type: BLOOD SPECIMENOrdering Facility: [facility] Address: [address] [place] [address] Performed By: #### 2 465-3 ####[facility] LABCLIA [id number] [place] [address] [place] IgG [Mass/Vol]on 01-17-2024 Interpretation and review of laboratory results Abnormal [facility] CNOVon 12-29-2023 CNOV Office Visit (SPNMMN ) NATALIE JAQUEZ ([id number]) 1995 F Date Time Provider Department 12/29/23 1:50 PM MARIELLE GANNON SPCOMN During your visit today, we recorded the following information about you: Pulse Respiration Blood pressure Weight 91/minute 17/minute 141/99 124.4 kg Height 1.676 m Marielle Gannon APRN.LOAN SUPERVISOR 12/29/2023 2:36 PM Signed [facility] [...] 1 tabl (more content not included)... Normal [facility] XR chest 2V*on 12-19-2023 XR chest 2V* [facility] [place] [address] XRay Report Signed Patient: Natalie Jaquez MR#: [id number] : 1995 Acct:[id number] Age/Sex: 28 / F ADM Date: 12/19/23 Loc: XDUCLY Room: Type: [facility] Attending Dr: Shelbie Allred TOOLROOM MACHINIST Copies to: Shelbie Allred APRN Ordering Provider: [...] Serena Martin M.D.12/19/2023 2:18 PM Dictation Location: [place] [address] Transcribed By: [facility] 12/19/23 1418 Dictated By: Serena Martin MD 12/19/23 1417 Signed By: 12/19/23 1418 Normal [facility] MR Brain WO and W [...] Improvement: None. New Enhancing Lesions: None T2 [place] of Disease: Mild. Parenchymal Volume Loss: None. [...] signal intensity and morphology. Cord T2 Plaque [place]: None New T2 Lesions: None Interval Cord [...] equal to 2mm). DIVISION OF RADIOLOGY Provider, [facility] - 11/14/2023 * * *Final Report* [...] Improvement: None. New Enhancing Lesions: None T2 [place] of Disease: Mild. Parenchymal Volume Loss: None. [...] signal intensity and morphology. Cord T2 Plaque [place]: None New T2 Lesions: None Interval Cord [...] and assume there are 5 lumbar-type vertebrae. Business Performance Advisor: PSCB Transcribe Date/Time: Nov 14 2023 2:47P Dictated by : LEAH MURILLO MD This examination was interpreted and the report reviewed and electronically signed by: LEAH MURILLO MD on Nov 14 2023 2:59PM [facility] MR Lumbar spine WO contrasto n [...] Improvement: None. New Enhancing Lesions: None T2 [place] of Disease: Mild. Parenchymal Volume Loss: None. [...] signal intensity and morphology. Cord T2 Plaque [place]: None New T2 Lesions: None Interval Cord [...] equal to 2mm). DIVISION OF RADIOLOGY Provider, [facility] - 11/14/2023 * * *Final Report* [...] Improvement: None. New Enhancing Lesions: None T2 [place] of Disease: Mild. Parenchymal Volume Loss: None. [...] signal intensity and morphology. Cord T2 Plaque [place]: None New T2 Lesions: None Interval Cord [...] and assume there are 5 lumbar-type vertebrae. Business Performance Advisor: PSCB Transcribe Date/Time: Nov 14 2023 2:47P Dictated by : LEAH MURILLO MD This examination was interpreted and the report reviewed and electronically signed by: LEAH MURILLO MD on Nov 14 2023 2:59PM [facility] MRI BRAIN WO/W IVCONon 11-13 MRI BRAIN WO/W IVCON * * *Final Report* * * DATE OF EXAM: Nov 14 2023 1:20PM [facility] 0295 - MRI BRAIN WO/W IVCON [...] Improvement: None. New Enhancing Lesions: None T2 [place] of Disease: Mild. Parenchymal Volume Loss: None. [...] signal intensity and morphology. Cord T2 Plaque [place]: None New T2 Lesions: None Interval Cord [...] and assume there are 5 lumbar-type vertebrae. Business Performance Advisor: PSCB Transcribe Date/Time: Nov 14 2023 2:47P Dictated by : LEAH MURILLO MD This examination was interpreted and the report reviewed and electronically signed by: LEAH MURILLO MD on Nov 14 2023 2:59PM EST [id number] Normal [facility] MRI LUMBAR SPINE WO IVCONon 11-14-2023 [...] Improvement: None. New Enhancing Lesions: None T2 [place] of Disease: Mild. Parenchymal Volume Loss: None. [...] signal intensity and morphology. Cord T2 Plaque [place]: None New T2 Lesions: None Interval Cord [...] and assume there are 5 lumbar-type vertebrae. Business Performance Advisor: [facility] Transcribe Date/Time: Nov 14 2023 2:47P Dictated by : LEAH MURILLO MD This examination was interpreted and the report reviewed and electronically signed by: LEAH MURILLO MD on Nov 14 2023 2:59PM EST [id number] Normal [facility] No Panel Informationon 11-13 IMPRESSION: Multiple [...] and assume there are 5 lumbar-type vertebrae. Business Performance Advisor: [employer]LE Transcribe Date/Time: Nov 14 2023 2:47P Dictated by : LEAH MURILLO MD This examination was interpreted and the report reviewed and electronically signed by: LEAH MURILLO MD on Nov 14 2023 2:59PM [facility] DIVISION OF RADIOLOGY Radiology Study observation (narrative) [facility] No Panel InformationOrdered By: [facility]cf Provider on 11-14-2023 [facility] CNOVon 08-29-2023 CNOV Office Visit (NEMSMN ) NATALIE JAQUEZ ([id number]) 1995 F Date Time Provider Department 08/29/23 9:15 AM [facility] During your visit today, we recorded the following information about you: Pulse Blood pressure Weight Height 77/minute 134/80 121.3 kg 1.676 m Last Period 08/29/23 Yoly Miller APRN.LOAN SUPERVISOR 08/29/2023 9:49 AM [facility] FOLLOWUP/ESTABLISHED PATIENT VISIT PRINCIPAL NEUROLOGIC DIAGNOSIS: Multiple [...] 2022. Is still pursuing disability- has an attorney lawyer. Reports BLE spasms. Is taking Baclofen 10mg QHS. Does endorse adequate water intake. Mood: Not bad Spasticity: See HPI Bladder: urgency, incontinence- more at night. Wears pad Bowel: Normal Pain related to today's visit:reviewed on nursing intake documentation Fatigue: Tolerable Sleep: Ok, naps occasionally Memory/Concentration: Losing train of thought Neuro-QoL Functions (higher=better functioning) Flowsheet Row Office Visit from 09/02/2022 in [facility] Appointment from 01/31/2022 in [facility] Distance Health from 08/03/2021 in [facility] Upper Extremity Domain T Score 39 57 [...] Flowsheet Row Office Visit from 09/02/2022 in [facility] Appointment from 01/31/2022 in [facility] Distance Health from 08/03/2021 in [facility] Sleep Domain T Score 60 59 61 [...] Flowsheet Row Office Visit from 12/04/2020 in [facility] Office Visit from 10/05/2017 in [facility] Processing Speed Total Number Correct 59 70 Low-contrast letter acuity test-2.5 percent opacity 34 36 Low-contrast letter acuity test-100 percent opacity 59 59 Dominant hand -- -- MDT Left Hand Time 21.88 20.98 MDT Right Hand Time 20.13 19.06 Walking Speed Test (25 feet) 3.85 4.97 General Appearance: w (more content not included)... Normal [facility] Auth for Release of Medical Recordson 02-23-2023 Auth for Release of Medical Records [id number]#[id number]:127 Normal [facility] COVID + FLU Quick Testingon 01-28-2023 SARS-CoV-2 (COVID-19) RNA JENNA+probe Ql (Unsp spec) Positive [facility] Other COVID + FLU Quick Testing Negative [facility] Other No Panel Informationon 01-23 Brain Enhancing Lesions None [facility] Brain Interval Improvement None [facility] Brain New T2 Lesions None [facility] Brain Other Significant MRI Findings None. [facility] Brain Parenchymal Volume Loss None [facility] Brain T2 [place] of Disease Mild [facility] Cervical spine enhancing lesions None [facility] Cervical Spine New T2 Lesions None [facility] Cervical Spine T2 [place] of Disease Mild to moderate [facility] COVID + FLU Quick Testingon 11-20-2022 SARS-CoV-2 (COVID-19) RNA JENNA+probe Ql (Unsp spec) Negative [facility] Other COVID + FLU Quick Testing Negative [facility] Other CBC W Auto Differential pane l (Bld)on 09-02-2022 Basophils (Bld) [#/Vol] 0.04 10*3/uL <0.11 k/uL [facility] Basophils/100 WBC (Bld) 0.4 % [facility] Differential cell count method Nom (Bld) Auto [facility] Eosinophils (Bld) [#/Vol] 0.08 10*3/uL <0.46 k/uL [facility] Eosinophils/100 WBC (Bld) 0.8 % [facility] Erythrocyte distribution width (RBC) [Ratio] 12.7 % 11.5 - 15.0 % [facility] Hematocrit (Bld) [Volume fraction] 44.9 % 36.0 - 46.0 % [facility] Hemoglobin (Bld) [Mass/Vol] 14.5 g/dL 11.5 - 15.5 g/dL [facility] Immature granulocytes (Bld) [#/Vol] 0.04 10*3/uL <0.10 k/uL [facility] Immature granulocytes/100 WBC (Bld) 0.4 % [facility] Lymphocytes (Bld) [#/Vol] 2.93 10*3/uL 1.00 - 4.00 k/uL [facility] Lymphocytes/100 WBC (Bld) 28.9 % [facility] MCH (RBC) [Entitic mass] 28.7 pg 26.0 - 34.0 pg [facility] MCHC (RBC) [Mass/Vol] 32.3 g/dL 30.5 - 36.0 g/dL [facility] MCV (RBC) [Entitic vol] 88.9 fL 80.0 - 100.0 fL [facility] Monocytes (Bld) [#/Vol] 0.69 10*3/uL <0.87 k/uL [facility] Monocytes/100 WBC (Bld) 6.8 % [facility] Neutrophils (Bld) [#/Vol] 6.35 10*3/uL 1.45 - 7.50 k/uL [facility] Neutrophils/100 WBC (Bld) 62.7 % [facility] Nucleated RBC (Bld) [#/Vol] <0.01 k/uL [facility] Nucleated RBC/100 WBC (Bld) [Ratio] 0.0 /100 WBC [facility] Platelet mean volume (Bld) [Entitic vol] 9.3 fL 9.0 - 12.7 fL [facility] Platelets (Bld) [#/Vol] 418 10*3/uL High 150 - 400 k/uL [facility] RBC (Bld) [#/Vol] 5.05 10*6/uL 3.90 - 5.20 m/uL [facility] WBC (Bld) [#/Vol] 10.13 10*3/uL 3.70 - 11.00 k/uL [facility] Comprehensive metabolic 2000 panelon 09-02-2022 Albumin [Mass/Vol] 4.0 g/dL 3.9 - 4.9 g/dL [facility] ALP [Catalytic activity/Vol] 81 U/L 34 - 123 U/L [facility] ALT [Catalytic activity/Vol] 19 U/L 7 - 38 U/L [facility] Anion gap [Moles/Vol] 11 mmol/L 9 - 18 mmol/L [facility] AST [Catalytic activity/Vol] 18 U/L 13 - 35 U/L [facility] Bilirubin [Mass/Vol] Low 0.2 - 1 .3 mg/dL [facility] Calcium [Mass/Vol] 9.6 mg/dL 8.5 - 10. 2 mg/dL [facility] Chloride [Moles/Vol] 101 mmol/L 97 - 10 5 mmol/L [facility] CO2 [Moles/Vol] 27 mmol/L 22 - 30 mmol/L [facility] Creatinine [Mass/Vol] 0.74 mg/dL 0.58 - 0.96 mg/dL [facility] Estimated Glomerular Filtration Rate 116 mL/min/1.73m >=60 mL/min/1.7 3m [facility] Glucose [Mass/Vol] 92 mg/dL 74 - 99 mg/dL [facility] Potassium [Moles/Vol] 4.3 mmol/L 3.7 - 5.1 mmol/L [facility] Protein [Mass/Vol] 6.8 g/dL 6.3 - 8.0 g/dL [facility] Sodium [Moles/Vol] 139 mmol/L 136 - 144 mmol/L [facility] Urea nitrogen [Mass/Vol] 11 mg/dL 7 - 21 mg/dL [facility] VITAMIN D 25 HYDROXYon 09-02 25-hydroxyvitamin D3 [Mass/Vol] 53.5 ng/mL 31.0 - 80.0 ng/mL [facility] Quick Strepon 07-27-2022 S. pyogenes Org specific cx Ql (Throat) Negative [facility] Other Quick Strep [facility] Other General Surgery Office/Clini c Noteon 07-05-2022 [...] BID, # 60 EA, Refills(s) 3, Pharmacy: [facility]/pharmacy #[id number], 165, cm, 05/24/22 14:22:00 EDT, Height/Length Dosing, 106, kg, 05/24/22 14:22:00 EDT, Weight Dosing 2. Change in bowel habits (R19.4: Change in bowel habit) see # 1 Ordered: cholestyramine, = 1 packet(s), Oral, BID, # 60 EA, Refills(s) 3, Pharmacy: [facility]/pharmacy #[id number], 165, cm, 05/24/22 14:22:00 [...] Elec tronically Signed By: MATTHEW BENÍTEZ, Yusuf Ryan\darian\Date and Time Signed: 07/05/22 15:06 EST Pathology Noteon 06-24-2022 Pathology Note [id number]:127 Normal [facility] Outside Colonoscopyon 2021 Outside Colonoscopy [id number]#[id number]:127 Normal [facility] PREG HCG QUALon 06-22-2022 , QUAL Negative Normal NEGATIVE [facility] Comment on above: Performed By: #### P REG #### [facility] [address] [place] [address] Dr. Marty Olson Lab Reportson 06-20-2022 Lab Reports [id number]:127 Normal [facility] Covid-19 PCR (CVDTB)on 05-25 SARS-CoV-2 (COVID-19) RNA JENNA+probe Ql (Unsp spec) Not detected Normal NOT DETECTED The [facility] Comment on above: Result Comment: When diagnostic [...] for this test is supported by the [employer] of [employer] and Human Service's declaration that [...] longer be used). Performed By: #### C [facility] #### [facility] [address] [place] [address] [address] Marty Olson Consent for Procedure/Surger yon 05-25-2022 Consent for Procedure/Surgery [id number]:127 Normal [facility] Ambulatory Visit Summaryon 1 07-24-2021 Ambulatory Visit Summary NATALIE JAQUEZ :1995 [...] INSULINon 05-07-2022 Insulin 22.9 uIU/mL Normal 2.6-24.9 [facility] Comment on above: Performed By: #### I NSULIN #### [facility] [address] [address] [address] Marty Olson CBC AUTO DIFFon 05-06-2022 BASO # 0.0 103/ul Normal 0.0-0.1 [facility] Comment on above: Performed By: #### C BC #### [facility] [address] [address] [address] Marty Olson Basophils/100 WBC (Bld) 0.4 % Normal 0.2-2.0 [facility] Comment on above: Performed By: #### C BC #### [facility] [address] [place] [address] Dr. Marty Olson EO # 0.2 103/ul Normal 0.0-0.7 [facility] Comment on above: Performed By: #### C BC #### [facility] [address] [address] [address] Marty Olson Eosinophils/100 WBC (Bld) 1.9 % Normal 0.9-7.0 [facility] Comment on above: Performed By: #### C BC #### [facility] [address] [address] [address] Marty Olson Erythrocyte distribution width (RBC) [Ratio] 12.3 % Normal 11.0-15.0 [facility] Comment on above: Performed By: #### C BC #### [facility] [address] [address] [address] Marty Olson Hematocrit (Bld) [Volume fraction] 41.3 % Normal 36.0-48.0 [facility] Comment on above: Performed By: #### C BC #### [facility] [address] [place] [address] Dr. Marty Olson Hemoglobin (Bld) [Mass/Vol] 13.4 g/dL Normal 12.0-16.0 [facility] Comment on above: Performed By: #### C BC #### [facility] [address] [place] [address] Dr. Marty Olson IG # 0.03 10e3/ul Normal 0.00-0.03 [facility] Comment on above: Performed By: #### C BC #### [facility] [address] [place] [address] Dr. Marty Olson IG % 0.4 % Normal 0.0-0.5 [facility] Comment on above: Performed By: #### C BC #### [facility] [address] [place] [address] Dr. Marty Olson LYMPH # 1.7 103/ul Normal 1.2-3.8 [facility] Comment on above: Performed By: #### C BC #### [facility] [address] [place] [address] Dr. Marty Olson Lymphocytes/100 WBC (Bld) 19.4 % Critically low 20.5-60.0 [facility] Comment on above: Performed By: #### C BC #### [facility] [address] [place] [address] Dr. Marty Olson MANUAL DIFF REQ NO Normal [facility] Comment on above: Performed By: #### C BC #### [facility] [address] [place] [address] Dr. Marty Olson MCH (RBC) [Entitic mass] 29.4 pg Normal 26.7-34.0 [facility] Comment on above: Performed By: #### C BC #### [facility] [address] [place] [address] Dr. Marty Olson MCHC (RBC) [Mass/Vol] 32.4 g/dL Normal 29.9-35.2 [facility] Comment on above: Performed By: #### C BC #### [facility] [address] [place] [address] Dr. Marty Olson MCV (RBC) [Entitic vol] 90.6 fL Normal 81.0-99.0 [facility] Comment on above: Performed By: #### C BC #### [facility] [address] [place] [address] Dr. Marty Olson MONO # 0.6 103/ul Normal 0.3-0.8 [facility] Comment on above: Performed By: #### C BC #### [facility] [address] [place] [address] Dr. Marty Olson Monocytes/100 WBC (Bld) 6.6 % Normal 1.7-12.0 [facility] Comment on above: Performed By: #### C BC #### [facility] [address] [place] [address] Dr. Marty Olson NEUT # 6.1 103/ul Normal 1.4-6.5 [facility] Comment on above: Performed By: #### C BC #### [facility] [address] [place] [address] Dr. Marty Olson Neutrophils/100 WBC (Bld) 71.3 % Normal 43.0-75.0 [facility] Comment on above: Performed By: #### C BC #### [facility] [address] [place] [address] Dr. Marty Olson Platelet mean volume (Bld) [Entitic vol] 9.2 fL Critically low 9.5-13.5 [facility] Comment on above: Performed By: #### C BC #### [facility] [address] [place] [address] Dr. Marty Olson PLT 365 103/ul Normal 150-450 [facility] Comment on above: Performed By: #### C BC #### [facility] [address] [place] [address] Dr. Marty Olson RBC 4.56 106/ul Normal 4.20-5.40 [facility] Comment on above: Performed By: #### C BC #### [facility] [address] [place] [address] Dr. Marty Olson WBC 8.5 103/ul Normal 4.0-11.0 [facility] Comment on above: Performed By: #### C BC #### [facility] [address] [place] [address] Dr. Marty Olson FERRITINon 05-06-2022 Ferritin [Mass/Vol] 79.0 ng/mL Normal 6.2-137.0 [facility] Comment on above: Performed By: #### V ITAD, IRON, FERR, FT4 #### [facility] [address] [address] [address] Marty Olson FREE T3on 05-06-2022 FREE T3 2.48 pg/mlL Normal 2.18-3.98 [facility] Comment on above: Performed By: #### T SH, LIPID, FT3, BMP, LIVER ####[facility] [address] [address]Dr. Marty Olson FREE T4on 05-06-2022 Free T4 [Mass/Vol] 1.00 ng/dL Normal 0.76-1.46 [facility] Comment on above: Performed By: #### V ITAD, IRON, FERR, FT4 #### [facility] [address] [address] [address] Marty Olson GLYCOHEMOGLOBIN A1Con 2021 ADA RECOMMENDATION SEE BELOW Normal [facility] Comment on above: Result Comment: ADA RECOMMENDED LIMIT 4.0 - 6.0 ADA THERAPEUTIC TARGET < 7.0 ACTION SUGGESTED > 7.0 Performed By: #### A 1C #### [facility] [address] [address] [address] Marty Olson Glucose [Mass/Vol] 108 mg/dL Normal [facility] Comment on above: Performed By: #### A 1C #### [facility] [address] [address] [address] Marty Olson HbA1c (Bld) [Mass fraction] 5.4 % Normal 4.5-6.2 [facility] Comment on above: Performed By: #### A 1C #### [facility] [address] [address] [address] Marty Olson IRONon 05-06-2022 Iron [Mass/Vol] 32.0 ug/dL Critically low 50.0-170.0 [facility] Comment on above: Performed By: #### V ITAD, IRON, FERR, FT4 #### [facility] [address] [place], [place] [address] Dr. Marty Olson LIPID PROFILEon 05-06-2022 CHOL-HDL RATIO NORM SEE BELOW Normal [facility] Comment on above: Result Comment: 3.3 - 4.4 LOW RISK 4.4 - 7.1 AVERAGE RISK 7.1 - 11.0 MODERATE RISK >11.0 HIGH RISK Performed By: #### T SH, LIPID, FT3, BMP, LIVER ####[facility] [address] [id number][address] Marty Olson Cholesterol [Mass/Vol] 172 mg/dL Normal <=200 [facility] Comment on above: Performed By: #### T SH, LIPID, FT3, BMP, LIVER ####[facility] [address] [place], [place] [address]Tm. Marty Olson Cholesterol in HDL [Mass/Vol] 68 mg/dL Critically high 40-60 [facility] Comment on above: Performed By: #### T SH, LIPID, FT3, BMP, LIVER ####[facility] [address] [id number]. Marty Olson Cholesterol in LDL [Mass/Vol] 95.0 mg/dL Normal [facility] Comment on above: Performed By: #### T SH, LIPID, FT3, BMP, LIVER ####[facility] [address] [id number]. Marty Olson Cholesterol.total/Ch olesterol in HDL [Mass ratio] 2.5 {ratio} Normal [facility] Comment on above: Performed By: #### T SH, LIPID, FT3, BMP, LIVER ####[facility] [address] [id number]. Marty Olson HDL NORMAL > or = 60 mg/dl - LO W CARDIOVASCULAR RISK <40 mg/dl - HIGH CARDIOVASCULAR RISK Normal [facility] Comment on above: Performed By: #### T SH, LIPID, FT3, BMP, LIVER ####[facility] [address] [address]Dr. Marty Olson LDL CALC NORMAL SEE BELOW Normal [facility] Comment on above: Result Comment: <100 mg/dl OPTIMAL 100 - 129 mg/dl NEAR OR ABOVE OPTIMAL 130 - 159 mg/dl BORDERLINE HIGH 160 - 189 mg/dl HIGH >190 mg/dl VERY HIGH Performed By: #### T SH, LIPID, FT3, BMP, LIVER ####[facility] [address] [id number]. Marty Olson Triglyceride [Mass/Vol] 45 mg/dL Normal <=150 [facility] Comment on above: Performed By: #### T SH, LIPID, FT3, BMP, LIVER ####[facility] [address] [address]Dr. Marty Olson VLDL CALC 9.0 mg/dL Normal [facility] Comment on above: Performed By: #### T SH, LIPID, FT3, BMP, LIVER ####[facility] [address] [address]Dr. Marty Olson LIVER PROFILEon 05-06-2022 Albumin [Mass/Vol] 3.1 g/dL Critically low 3.4-5.0 [facility] Comment on above: Performed By: #### T SH, LIPID, FT3, BMP, LIVER ####[facility] [address] [address]Dr. Marty Olson Albumin/Globulin [Mass ratio] 0.9 {ratio} Normal [facility] Comment on above: Performed By: #### T SH, LIPID, FT3, BMP, LIVER ####[facility] [address] [address]Dr. Marty Olson ALP [Catalytic activity/Vol] 69 U/L Normal 46-116 [facility] Comment on above: Performed By: #### T SH, LIPID, FT3, BMP, LIVER ####[facility] [address] [address]Dr. Marty Olson ALT [Catalytic activity/Vol] 21 U/L Normal 14-59 [facility] Comment on above: Performed By: #### T SH, LIPID, FT3, BMP, LIVER ####[facility] [address] [address]Dr. Marty Olson AST [Catalytic activity/Vol] 11 U/L Critically low 15-37 [facility] Comment on above: Performed By: #### T SH, LIPID, FT3, BMP, LIVER ####[facility] [address] [address]Dr. Evebipin Olson BILI, CONJUGATED 0.1 mg/dL Normal 0.0-0.2 [facility] Comment on above: Performed By: #### T SH, LIPID, FT3, BMP, LIVER ####[facility] [address] [address]Dr. Marty Olson Bilirubin [Mass/Vol] 0.2 mg/dL Normal 0.2-1.0 [facility] Comment on above: Performed By: #### T SH, LIPID, FT3, BMP, LIVER ####[facility] [address] [place], [place] [address]Dr. Evebipin Olson Globulin (S) [Mass/Vol] 3.4 g/dL Normal [facility] Comment on above: Performed By: #### T SH, LIPID, FT3, BMP, LIVER ####[facility] [address] [address]Dr. Marty Olson Protein [Mass/Vol] 6.5 g/dL Normal 6.4-8.2 [facility] Comment on above: Performed By: #### T SH, LIPID, FT3, BMP, LIVER ####[facility] [address] [place], [place] [address]Dr. Marty Olson PROF CHEM 8 (BAS METB)on Anion gap [Moles/Vol] 10.3 mmol/L Normal [facility] Comment on above: Performed By: #### T SH, LIPID, FT3, BMP, LIVER ####[facility] [address] [address]Dr. Marty Olson Calcium [Mass/Vol] 8.3 mg/dL Critically low 8.5-10.1 [facility] Comment on above: Performed By: #### T SH, LIPID, FT3, BMP, LIVER ####[facility] [address] [id number]. Marty Olson Chloride [Moles/Vol] 107 mmol/L Normal 98-107 [facility] Comment on above: Performed By: #### T SH, LIPID, FT3, BMP, LIVER ####[facility] [address] [address]Dr. Marty Olson CO2 [Moles/Vol] 25.0 mmol/L Normal 21.0-32.0 [facility] Comment on above: Performed By: #### T SH, LIPID, FT3, BMP, LIVER ####[facility] [address] [address]Dr. Marty Olson Creatinine [Mass/Vol] 0.72 mg/dL Normal 0.55-1.02 [facility] Comment on above: Performed By: #### T SH, LIPID, FT3, BMP, LIVER ####[facility] [address] [place], [place] [address]Dr. Marty Olson EGFR-AF CAMBODIAN >60 Normal >=60 [facility] Comment on above: Performed By: #### T SH, LIPID, FT3, BMP, LIVER ####[facility] [address] [place], [place] [address]Dr. Marty Olson EGFR-NON AF CAMBODIAN >60 Normal >=60 [facility] Comment on above: Performed By: #### T SH, LIPID, FT3, BMP, LIVER ####[facility] [address] [address]Dr. Marty Olson Glucose [Mass/Vol] 94 mg/dL Normal 74-106 [facility] Comment on above: Performed By: #### T SH, LIPID, FT3, BMP, LIVER ####[facility] [address] [address]Dr. Marty Olson Potassium [Moles/Vol] 4.3 mmol/L Normal 3.5-5.1 [facility] Comment on above: Performed By: #### T SH, LIPID, FT3, BMP, LIVER ####[facility] [address] [id number]. Marty Olson Sodium [Moles/Vol] 138 mmol/L Normal 136-145 [facility] Comment on above: Performed By: #### T SH, LIPID, FT3, BMP, LIVER ####[facility] [address] [address]Dr. Marty Olson Urea nitrogen [Mass/Vol] 19.0 mg/dL Critically high 7.0-18.0 [facility] Comment on above: Performed By: #### T SH, LIPID, FT3, BMP, LIVER ####[facility] [address] [address]Dr. Marty Olson Urea nitrogen/Creatinine [Mass ratio] 26.4 mg/mg Normal [facility] Comment on above: Performed By: #### T SH, LIPID, FT3, BMP, LIVER ####[facility] [address] [address]Dr. Marty Olson TSHon 05-06-2022 TSH 1.968 uIU/mL Normal 0.358-3.74 0 [facility] Comment on above: Performed By: #### T SH, LIPID, FT3, BMP, LIVER ####[facility] [address] [address]DrJessie Olson VITAMIN D 25 OHon 05-06-2022 VIT D 25-OH 43.8 ng/mL Normal [facility] Comment on above: Performed By: #### V ITAD, IRON, FERR, FT4 #### [facility] [address] [place] [address] Dr. Marty Olson VIT D RANGES SEE BELOW Normal [facility] Comment on above: Result Comment: <20 ng/mL Vit D deficient 20 - <30 ng/mL Vit D insufficient 30 - 100 ng/mL Vit D sufficient >100 ng/mL Potential Toxicity Performed By: #### V ITAD, IRON, FERR, FT4 #### [facility] [address] [place] [address] Dr. Marty Olson Physician Referralon 022 Physician Referral [id number]:127 Normal [facility] C BP Strepon 11-16-2021 C BP Strep order added by vinay grajeda This is strictly a screening test for Strep Group A( Streptococcus pyogenes). No other pathogens will be noted. Final Backup plate negative for Group A Streptococus Resulted at [facility] Comment on above: Performed By: #### B P #### [facility] (DEFAULT) [address] [place] [address] ED Clinical Summaryon 2021 ED Clinical Summary (Inserted Image. Suzy ble to display) [place] [address] ED Clinical Summary Person Information Name: Natalie Jaquez [facility] Age: 26 Years : 1995 Sex: Female PCP: Jayme Schmidt MD Marital Status: Single Phone: Race: White Ethnicity: Not or Language: Lithuanian Visit Reason: Ear pain; Throat pain - Adult; Throat pain Acuity: 4 Enc Type: Emergency Med Service: Emergency Medicine Arrival: 11/14/2021 06:21:46 Discharge: 11/14/2021 08:20:00 LOS: 000 01:59 Checkin: 11/14/2021 06:21:46 Checkout: 11/14/2021 08:20:00 Dispo Type: Home or Self Care Address: [facility] [place] [facility] [place] [address] Provider Notes: Diagnosis: 1:Pharyngitis Problems No Problems [...] Visit Final Med List: New Medications [id number], [address] [place], [place] [id number], [phone] amoxicillin (amoxicillin 500 mg oral tablet) 1 [...] venlafaxine Oral (given by mouth). Last Dose: [facility]/pharmacy #[id number], [address] [place] [id number], [phone] amoxicillin (amoxicillin 500 mg oral tablet) 1 [...] 07:02:59 Follow up: With: Address: When: Jayme Horneshelby [address] [facility] [place] [place] [phone] Business (1) , only if needed Discharge Orders: Discharge Patient 11/14/21 8:07:00 EDT, Discharge to Home, Self, Pharyngitis Patient Education Information: Pharyngitis, Report Pending [facility] Poison Help line: . [facility] Hotline: [place] Tobacco Quit Line: [place], [place]) [address]: [phone] [place], [place]) [address]: [phone] [facility] [address] [place], [place]: [phone] Normal [facility] ED Note-Physicianon 11-15-19 ED Note-Physician [...] tabs, 0 Refill(s), 11/21/21 8:06:00 EDT, Pharmacy: [facility]/pharmacy #[id number] naproxen, 1 tabs, Oral, BID, PRN, X 15 days, # 30 tabs, 0 Refill(s), 11/29/21 8:06:00 EDT, Pharmacy: [facility]/pharmacy #[id number] Discharge Patient Orders: Culture Backup Strep [...] David [place] MD 11/14/21 10:58 EDT Normal [facility] Strep Aon 11-14-2021 Strep A Negative Normal Negative [facility] Comment on above: Result Comment: [...] clinician. Performed By: #### L LAZARA #### [address] & CERVICAL SPINE MRI D ISCPATIENCEE DATAon 2021 Brain Enhancing Lesions None [facility] Brain Interval Improvement None [facility] Brain New T2 Lesions None [facility] Brain Other Significant MRI Findings None. [facility] Brain Parenchymal Volume Loss None [facility] Brain T2 [place] of Disease Mild [facility] MRI BRAIN WO/W IVCONon 11-05 [facility] Send-out: Otheron 09-29-2021 Send-out Other See Report Normal [facility] Comment on above: Order Comment: [facility]er ence [facility]: Vitamin D2 and D3Test Code: 25HDNdraw one sst Result Comment: Miss ing Attachment Chartable Reference Lab Reports Can be viewed in source system Performed By: #### H CANDIS #### [address] [address] .eGFRon 09-23-2021 eGFR Non-AA >60 Normal >=60 [facility] Comment on above: Result Comment: [...] age = years Performed By: #### L LAZARA #### [address] [address] eGFR AA >60 Normal >=60 [facility] Comment on above: Result Comment: See comment. Performed By: #### L IVJESSICA #### [address] [place] [address] Basic Metabolic Profileon Anion gap [Moles/Vol] 14 mmol/L Normal 7-17 [facility] Comment on above: Performed By: #### L IVER #### [address] [address] Calcium [Mass/Vol] 8.6 mg/dL Normal 8.5-10.3 [facility] Comment on above: Performed By: #### L IVER #### [address] [address] Chloride [Moles/Vol] 101 mmol/L Normal 98-110 [facility] Comment on above: Performed By: #### L IVER #### [address] [address] CO2 [Moles/Vol] 25 mmol/L Normal 22-32 [facility] Comment on above: Performed By: #### L IVER #### [address] [address] Creatinine [Mass/Vol] 0.75 mg/dL Normal 0.44-1.03 [facility] Comment on above: Performed By: #### L IVER #### [address] [address] Glucose [Mass/Vol] 81 mg/dL Normal 70-99 [facility] Comment on above: Performed By: #### L IVER #### [address] [address] Potassium [Moles/Vol] 3.4 mmol/L Normal 3.4-4.8 [facility] Comment on above: Performed By: #### L IVER #### [address] [address] Sodium [Moles/Vol] 137 mmol/L Normal 133-142 [facility] Comment on above: Performed By: #### L IVER #### [address] [address] Urea nitrogen [Mass/Vol] 16 mg/dL Normal 8-26 [facility] Comment on above: Performed By: #### L IVER #### [address] [address] Urea nitrogen/Creatinine [Mass ratio] 21.3 mg/mg High 10.0-20.0 [facility] Comment on above: Performed By: #### L IVER #### [address] [address] CBC w/ Diffon 09-23-2021 Erythrocyte distribution width (RBC) [Ratio] 14.6 % Normal 11.6-14.8 [facility] Comment on above: Performed By: #### C BC #### [address] [address] Hematocrit (Bld) [Volume fraction] 36.6 % Normal 36.0-46.0 [facility] Comment on above: Performed By: #### C BC #### [address] [address] Hemoglobin (Bld) [Mass/Vol] 12.3 g/dL Normal 12.0-16.0 [facility] Comment on above: Performed By: #### C BC #### [address] [address] MCH (RBC) [Entitic mass] 29.9 pg Normal 27.0-35.0 [facility] Comment on above: Performed By: #### C BC #### [address] [address] MCHC 33.5 % Normal 31.0-37.0 [facility] [facility] Comment on above: Performed By: #### C BC #### [address] [address] MCV (RBC) [Entitic vol] 89.3 fL Normal 80.0-100.0 [facility] Comment on above: Performed By: #### C BC #### [address] [address] Platelet 385 x10*3/mcL High 150-350 [facility] Comment on above: Performed By: #### C BC #### [address] [address] Platelet mean volume (Bld) [Entitic vol] 7.4 fL Normal 6.7-10.6 [facility] Comment on above: Performed By: #### C BC #### [address] [address] RBC 4.10 x10*6/mcL Normal 3.80-5.20 [facility] Comment on above: Performed By: #### C BC #### [address] [address] WBC 10.4 x10*3/mcL Normal 4.5-11.0 [facility] Comment on above: Performed By: #### C BC #### [address] [address] Diff Autoon 09-23-2021 Baso Absolute 0.0 x10*3/mcL Normal 0.0-0.2 [facility] Comment on above: Performed By: #### L IVER #### [address] [address] Basophils/100 WBC (Bld) 0.3 % Normal 0.0-1.5 [facility] Comment on above: Performed By: #### L IVER #### [address] [address] Eos Absolute 0.1 x10*3/mcL Normal 0.0-0.4 [facility] Comment on above: Performed By: #### L IVER #### [address] [address] Eosinophils/100 WBC (Bld) 0.6 % Normal 0.0-5.4 [facility] Comment on above: Performed By: #### L IVER #### [address] [address] Lymph Absolute 2.1 x10*3/mcL Normal 1.0-4.8 [facility] Comment on above: Performed By: #### L IVER #### [address] [address] Lymphocytes/100 WBC (Bld) 19.8 % Low 27.2-40.8 [facility] Comment on above: Performed By: #### L IVER #### [address] [address] [place] Absolute 0.7 x10*3/mcL Normal 0.1-1.1 [facility] Comment on above: Performed By: #### L IVER #### [address] [address] Monocytes/100 WBC (Bld) 6.4 % Normal 3.7-11.9 [facility] Comment on above: Performed By: #### L IVER #### [address] [address] Neutro Absolute 7.6 x10*3/mcL Normal 1.8-7.7 [facility] Comment on above: Performed By: #### L IVER #### [address] [address] Neutro Auto 72.9 % High 47.2-70.8 [facility] Comment on above: Performed By: #### L IVER #### [address] [address] Free T3on 09-23-2021 Free T3 [Mass/Vol] 3.29 pg/mL Normal 2.50-3.90 [facility] Comment on above: Performed By: #### L IVER #### [address] [address] Free T4on 09-23-2021 Free T4 [Mass/Vol] 0.82 ng/dL Normal 0.61-1.12 [facility] Comment on above: Performed By: #### L IVER #### [address] [address] Hep Func Panelon 09-23-2021 Albumin [Mass/Vol] 3.9 g/dL Normal 3.2-4.9 [facility] Comment on above: Performed By: #### L IVER #### [address] [address] Alk Phos 61 IU/L Normal 32-91 [facility] Comment on above: Performed By: #### L IVER #### [address] [address] ALT [Catalytic activity/Vol] 17 U/L Normal 14-54 [facility] Comment on above: Performed By: #### L IVER #### [address] [address] AST [Catalytic activity/Vol] 18 U/L Normal 15-41 [facility] Comment on above: Performed By: #### L IVER #### [address] [address] Bili Direct 0.2 mg/dL Normal 0.1-0.5 [facility] Comment on above: Performed By: #### L IVER #### [address] [address] Bili Indirect 0.4 mg/dL Normal 0.0-1.0 [facility] Comment on above: Performed By: #### L IVER #### [address] [address] Bili Total 0.6 mg/dL Normal 0.3-1.2 [facility] Comment on above: Performed By: #### L IVER #### [address] [address] Protein [Mass/Vol] 6.8 g/dL Normal 6.5-8.1 [facility] Comment on above: Performed By: #### L IVER #### [address] [address] Hgb A1con 09-23-2021 Glucose [Mass/Vol] 94 mg/dL Normal 68-114 [facility] Comment on above: Result Comment: Math ematical Calc approx. The mean gluc equivalency of A1c Performed By: #### H BA1C #### [address] [address] Hgb A1c 4.9 % A1c Normal 4.0-5.6 [facility] Comment on above: Result Comment: Refe rence Range: 4.0 - 5.6 % Normal 5.7 - 6.4 % Pre-Diabetes > 6.5 % Diabetes Performed By: #### H BA1C #### [address] [address] Insulinon 09-23-2021 Insulin Lvl 7.05 mcIU/mL Normal 1.90-23.00 [facility] Comment on above: Performed By: #### H BA1C #### [address] [address] Lipid Panelon 09-23-2021 Cholesterol in LDL [Mass/Vol] 136 mg/dL High 0-99 [facility] Comment on above: Result Comment: The equation being used in this calculation is LDL = (Chol - HDL) - (Trig / 5) The optimal value of LDL for individual patients may vary. The patient's history of Artherosclerosis and other cardiac risk factors should be considered. Performed By: #### H BA1C #### [address] [address] Cardiac Risk 2.8 Normal [facility] Comment on above: Result Comment: Men Women 1/2 Average 3.43 3.27 Average 4.97 4.44 2x Average 9.55 7.05 3x Average 23.99 11.04 Performed By: #### H BA1C #### [address] [address] Cholesterol [Mass/Vol] 233 mg/dL High 25-199 [facility] Comment on above: Result Comment: 0 - 17 years of age: Desirable 0-170 Borderline High 170-199 High >=200 18 years and older: Acceptable <200 Borderline High 200-239 High >=240 Performed By: #### H BA1C #### [address] [address] Cholesterol in HDL [Mass/Vol] 83.6 mg/dL High 40.0-60.0 [facility] Comment on above: Performed By: #### H BA1C #### [address] [place] [address] Cholesterol in VLDL [Mass/Vol] 13 mg/dL Normal 8-39 [facility] Comment on above: Performed By: #### H BA1C #### [address] [address] Triglyceride [Mass/Vol] 66 mg/dL Normal [facility] Comment on above: Result Comment: 0 - 17 years of age: Trig 90 - 129 Borderline High Trig => 130 High 18 years and older: Trig 150 - 199 Borderline High Trig 200 - 499 High Trig =>500 Very High Performed By: #### H BA1C #### [address] [address] TSHon 09-23-2021 TSH Qn 2.99 m[IU]/L Normal 0.45-5.33 [facility] Comment on above: Result Comment: Refe rence Ranges for individuals from to 18 years of age were obtained from The Regina Starks Handbook (20 ed) published by [facility]. Reference Ranges for Females: Females, 1st Trimester 0.05 ? 3.7 uIU/mL Females, 2nd Trimester 0.31 ? 4.35 uIU/mL Females, 3rd Trimester 0.41 ? 5.18 uIU/mL Performed By: #### L IVER #### [address] [address] Urgent Care Office/Clinic No jimmy 03-12-2021 Urgent [...] Kezia Kumari PA-C 03/12/21 15:55 EDT Normal [facility] Urgent Care Office/Clinic No jimmy [...] g, 0 Refill(s), 03/08/21 17:05:00 EDT, Pharmacy: [facility]/pharmacy #[id number] Medical Decision Making Patient is well and [...] data available (MRI) Electronically signed by Rakel ANDERSONLeyla 02/22/21 17:35 EDT Normal [facility] Vital Signs Date Time Vital Sign Value Performing Clinician Facility 08-28-2024 14:39-0500 Body mass index (BMI) [Ratio] 42.35 kg/m2 Zoe Heflin PA Work Phone: [facility] 08-28-2024 14:39-0500 Body weight 119.02 kg Zoe Leann PA Work Phone: [facility] 08-28-2024 14:39-0500 Diastolic blood pressure 70 mm[Hg] Zoe Leann PA Work Phone: [facility] 08-28-2024 14:39-0500 Systolic blood pressure 122 mm[Hg] Zoe Leann PA Work Phone: [facility] 07-31-2024 15:12-0500 Body mass index (BMI) [Ratio] 43.26 kg/m2 Zoe Leann PA Work Phone: [facility] 07-31-2024 15:12-0500 Body weight 121.56 kg Zoe Heflin PA Work Phone: [facility] 07-31-2024 15:12-0500 Diastolic blood pressure 78 mm[Hg] Zoe Leann PA Work Phone: [facility] 07-31-2024 15:12-0500 Systolic blood pressure 122 mm[Hg] Zoe Leann PA Work Phone: [facility] 07-30-2024 15:04-0500 Body mass index (BMI) [Ratio] 43.42 kg/m2 Jayme Schmidt MD Work Phone: [facility] 07-30-2024 15:04-0500 Body temperature 97 [degF] Jayme Schmidt MD Work Phone: [facility] 07-30-2024 15:04-0500 Body weight 122.02 kg Jayme Schmidt MD Work Phone: [facility] 07-30-2024 15:04-0500 Diastolic blood pressure 78 mm[Hg] Jayme Schmidt MD Work Phone: [facility] 07-30-2024 15:04-0500 Heart rate 102 /min Jayme Schmidt MD Work Phone: [facility] 07-30-2024 15:04-0500 SaO2% (BldA) [Mass fraction] 97 % Jayme Schmidt MD Work Phone: [facility] 07-30-2024 15:04-0500 Systolic blood pressure 120 mm[Hg] Jayme Schmidt MD Work Phone: [facility] 07-15-2024 14:13-0500 Body temperature 97.7 [degF] Chair Raissa Work Phone: [facility] 07-15-2024 14:13-0500 Diastolic blood pressure 81 mm[Hg] Chair Coles Work Phone: [facility] 07-15-2024 14:13-0500 Heart rate 83 /min Chair Raissa Work Phone: [facility] 07-15-2024 14:13-0500 Respiratory rate 14 /min Chair Coles Work Phone: [facility] 07-15-2024 14:13-0500 SaO2% (BldA) [Mass fraction] 95 % Chair Raissa Work Phone: [facility] 07-15-2024 14:13-0500 Systolic blood pressure 120 mm[Hg] Chair Raissa Work Phone: [facility] 07-08-2024 14:46-0500 Body mass index (BMI) [Ratio] 43.97 kg/m2 Zoe HADLEY Work Phone: [facility] 07-08-2024 14:46-0500 Body weight 123.56 kg Zoe HADLEY Work Phone: [facility] 07-08-2024 14:46-0500 Diastolic blood pressure 84 mm[Hg] Zoe HADLEY Work Phone: [facility] 07-08-2024 14:46-0500 Systolic blood pressure 126 mm[Hg] Zoe HADLEY Work Phone: [facility] 06-24-2024 11:02-0500 Body height 167.6 cm Jayme Schmidt MD Work Phone: [facility] 06-24-2024 11:02-0500 Body mass index (BMI) [Ratio] 44.22 kg/m2 Jayme Schmidt MD Work Phone: [facility] 06-24-2024 11:02-0500 Body temperature 97.11 [degF] Jayme Schmidt MD Work Phone: [facility] 06-24-2024 11:02-0500 Body weight 124.29 kg Jayme Schmidt MD Work Phone: [facility] 06-24-2024 11:02-0500 Diastolic blood pressure 66 mm[Hg] Jayme Schmidt MD Work Phone: [facility] 06-24-2024 11:02-0500 Heart rate 124 /min Jayme Schmidt MD Work Phone: [facility] 06-24-2024 11:02-0500 Respiratory rate 20 /min Jayme Schmidt MD Work Phone: [facility] 06-24-2024 11:02-0500 SaO2% (BldA) [Mass fraction] 96 % Jayme Schmidt MD Work Phone: [facility] 06-24-2024 11:02-0500 Systolic blood pressure 122 mm[Hg] Jayme Schmidt MD Work Phone: [facility] 06-10-2024 14:30-0500 Body mass index (BMI) [Ratio] 44.03 kg/m2 Casey Rae DO Work Phone: [facility] 06-10-2024 14:30-0500 Body weight 123.74 kg Casey Butch DO Work Phone: [facility] 06-10-2024 14:30-0500 Diastolic blood pressure 70 mm[Hg] Casey Butch DO Work Phone: [facility] 06-10-2024 14:30-0500 Systolic blood pressure 120 mm[Hg] Casey Butch DO Work Phone: [facility] 06-05-2024 12:50-0500 Body height 167.6 cm Jonathan Muller MD Work Phone: [facility] 06-05-2024 12:50-0500 Body mass index (BMI) [Ratio] 44.55 kg/m2 Jonathan uMller MD Work Phone: [facility] 06-05-2024 12:50-0500 Body weight 125.19 kg Jonathan Muller MD Work Phone: [facility] 06-05-2024 12:50-0500 Diastolic blood pressure 84 mm[Hg] Jonathan Muller MD Work Phone: [facility] 06-05-2024 12:50-0500 Systolic blood pressure 150 mm[Hg] Jonathan Muller MD Work Phone: [facility] 03-18-2024 15:29-0400 Body height 167.6 cm Zoe HADLEY Work Phone: [facility] 03-18-2024 15:29-0400 Body mass index (BMI) [Ratio] 44.61 kg/m2 Zoe HADLEY Work Phone: [facility] 03-18-2024 15:29-0400 Body weight 125.37 kg Zoe HADLEY Work Phone: [facility] 03-18-2024 15:29-0400 Diastolic blood pressure 70 mm[Hg] Zoe HADLEY Work Phone: [facility] 03-18-2024 15:29-0400 Systolic blood pressure 120 mm[Hg] Zoe HADLEY Work Phone: [facility] 03-18-2024 09:05-0400 Body height 167.6 cm Jayme Schmidt MD Work Phone: [facility] 03-18-2024 09:05-0400 Body mass index (BMI) [Ratio] 44.55 kg/m2 Jayme Schmidt MD Work Phone: [facility] 03-18-2024 09:05-0400 Body temperature 97.3 [degF] Jayme Schmidt MD Work Phone: [facility] 03-18-2024 09:05-0400 Body weight 125.19 kg Jayme Schmidt MD Work Phone: [facility] 03-18-2024 09:05-0400 Diastolic blood pressure 84 mm[Hg] Jayme Schmidt MD Work Phone: [facility] 03-18-2024 09:05-0400 Heart rate 124 /min Jayme Schmidt MD Work Phone: [facility] 03-18-2024 09:05-0400 Respiratory rate 20 /min Jayme Schmidt MD Work Phone: [facility] 03-18-2024 09:05-0400 SaO2% (BldA) [Mass fraction] 97 % Jayme Schmidt MD Work Phone: [facility] 03-18-2024 09:05-0400 Systolic blood pressure 128 mm[Hg] Jayme Schmidt MD Work Phone: [facility] 01-17-2024 13:35-0400 Body temperature 98.2 [degF] Chair Coles Work Phone: [facility] 01-17-2024 13:35-0400 Diastolic blood pressure 81 mm[Hg] Chair Coles Work Phone: [facility] 01-17-2024 13:35-0400 Heart rate 84 /min Chair Raissa Work Phone: [facility] 01-17-2024 13:35-0400 Respiratory rate 16 /min Chair Raissa Work Phone: [facility] 01-17-2024 13:35-0400 SaO2% (BldA) [Mass fraction] 96 % Chair Raissa Work Phone: [facility] 01-17-2024 13:35-0400 Systolic blood pressure 131 mm[Hg] Chair Munroe Work Phone: [facility] 12-29-2023 13:43-0400 Body height 167.6 cm Marielle Gannon TOOLROOM MACHINIST.LOAN SUPERVISOR Work Phone: [facility] 12-29-2023 13:43-0400 Body mass index (BMI) [Ratio] 44.27 kg/m2 Marielle Gannon APRN.LOAN SUPERVISOR Work Phone: [facility] 12-29-2023 13:43-0400 Body weight 124.4 kg Marielle Gannon APRN.LOAN SUPERVISOR Work Phone: [facility] 12-29-2023 13:43-0400 Diastolic blood pressure 99 mm[Hg] Marielle Gannon APRN.LOAN SUPERVISOR Work Phone: [facility] 12-29-2023 13:43-0400 Heart rate 91 /min Marielle Gannon APRN.LOAN SUPERVISOR Work Phone: [facility] 12-29-2023 13:43-0400 Respiratory rate 17 /min Marielle aGnnon APRN.LOAN SUPERVISOR Work Phone: [facility] 12-29-2023 13:43-0400 SaO2% (BldA) [Mass fraction] 95 % Marielle Gannon APRN.LOAN SUPERVISOR Work Phone: [facility] 12-29-2023 13:43-0400 Systolic blood pressure 141 mm[Hg] Marielle Gannon APRN.LOAN SUPERVISOR Work Phone: [facility] 12-19-2023 13:32-0400 Body height 167.64 cm MD Jayme Schmidt Work Phone: [facility] 12-19-2023 13:32-0400 Body mass index (BMI) [Ratio] 43.5 kg/m2 MD Jayme Schmidt Work Phone: [facility] 12-19-2023 13:32-0400 Body temperature 97.8 [degF] MD Jayme Schmidt Work Phone: [facility] 12-19-2023 13:32-0400 Body weight 122.46 kg MD Jayme Schmidt Work Phone: [facility] 12-19-2023 13:32-0400 Diastolic blood pressure 90 mm[Hg] MD Jayme Schmidt Work Phone: [facility] 12-19-2023 13:32-0400 Heart rate 108 /min MD Jayme Schmidt Work Phone: [facility] 12-19-2023 13:32-0400 Respiratory rate 18 /min MD Jayme Schmidt Work Phone: [facility] 12-19-2023 13:32-0400 SaO2% (BldA) [Mass fraction] 97 % MD Jayme Schmidt Work Phone: [facility] 12-19-2023 13:32-0400 Systolic blood pressure 142 mm[Hg] MD Jayme Schmidt Work Phone: [facility] 09-25-2023 16:39-0500 Body height 167.64 cm MD Jayme Schmidt Work Phone: [facility] 09-25-2023 16:39-0500 Body mass index (BMI) [Ratio] 41.9 kg/m2 MD Jayme Schmidt Work Phone: [facility] 09-25-2023 16:39-0500 Body temperature 98.3 [degF] MD Jayme Schmidt Work Phone: [facility] 09-25-2023 16:39-0500 Body weight 117.93 kg MD Jayme Schmidt Work Phone: [facility] 09-25-2023 16:39-0500 Heart rate 74 /min MD Jayme Schmidt Work Phone: [facility] 09-25-2023 16:39-0500 SaO2% (BldA) [Mass fraction] 99 % MD Jayme Schmidt Work Phone: [facility] 08-29-2023 08:40-0500 Body height 167.6 cm Yoly Chizmadia TOOLROOM MACHINIST.LOAN SUPERVISOR Work Phone: [facility] 08-29-2023 08:40-0500 Body weight 121.3 kg Yoly Chizmadia TOOLROOM MACHINIST.LOAN SUPERVISOR Work Phone: [facility] 08-29-2023 08:40-0500 Diastolic blood pressure 80 mm[Hg] Yoly Chizmadia TOOLROOM MACHINIST.LOAN SUPERVISOR Work Phone: [facility] 08-29-2023 08:40-0500 Heart rate 77 /min Yoly Chizmadia TOOLROOM MACHINIST.LOAN SUPERVISOR Work Phone: [facility] 08-29-2023 08:40-0500 Systolic blood pressure 134 mm[Hg] Yoly Chizmadia TOOLROOM MACHINIST.LOAN SUPERVISOR Work Phone: [facility] 04-08-2023 12:40-0400 Body height 167.64 cm Erica Perry Other [facility] Other 04-08-2023 12:40-0400 Body mass index (BMI) [Ratio] 40.51 kg/m2 Erica Perry Other [facility] Other 04-08-2023 12:40-0400 Body temperature 98.2 [degF] Erica Perry Other [facility] Other 04-08-2023 12:40-0400 Body weight 113.85 kg Erica Perry Other [facility] Other 04-08-2023 12:40-0400 Diastolic blood pressure 72 mm[Hg] Erica Vicky Other [facility] Other 04-08-2023 12:40-0400 Respiratory rate 18 /min Erica Vicky Other [facility] Other 04-08-2023 12:40-0400 SaO2% (BldA) [Mass fraction] 96 % Erica Vicky Other [facility] Other 04-08-2023 12:40-0400 Systolic blood pressure 116 mm[Hg] Erica Vicky Other [facility] Other 01-28-2023 13:30-0400 Body height 167.64 cm Erica Vicky Other [facility] Other 01-28-2023 13:30-0400 Body mass index (BMI) [Ratio] 45.19 kg/m2 Erica Vicky Other [facility] Other 01-28-2023 13:30-0400 Body temperature 98.4 [degF] Erica Vicky Other [facility] Other 01-28-2023 13:30-0400 Body weight 127.01 kg Erica Vicky Other [facility] Other 01-28-2023 13:30-0400 Diastolic blood pressure 81 mm[Hg] Erica Vicky Other [facility] Other 01-28-2023 13:30-0400 Respiratory rate 18 /min Erica Vicky Other [facility] Other 01-28-2023 13:30-0400 SaO2% (BldA) [Mass fraction] 99 % Erica Perry Other [facility] Other 01-28-2023 13:30-0400 Systolic blood pressure 147 mm[Hg] Erica Perry Other [facility] Other 01-11-2023 13:29-0400 Body temperature 98.2 [degF] Chair Coles Work Phone: [facility] 01-11-2023 13:29-0400 Diastolic blood pressure 78 mm[Hg] Chair Coles Work Phone: [facility] 01-11-2023 13:29-0400 Heart rate 79 /min Chair Coles Work Phone: [facility] 01-11-2023 13:29-0400 Respiratory rate 16 /min Chair Raissa Work Phone: [facility] 01-11-2023 13:29-0400 SaO2% (BldA) [Mass fraction] 97 % Chair Coles Work Phone: [facility] 01-11-2023 13:29-0400 Systolic blood pressure 120 mm[Hg] Chair Coles Work Phone: [facility] 11-20-2022 15:10-0400 Body height 167.64 cm Carol Ann Lees Other [facility] Other 11-20-2022 15:10-0400 Body mass index (BMI) [Ratio] 41.96 kg/m2 Carol Ann Lees Other [facility] 11-20-2022 15:10-0400 Body temperature 99.4 [degF] Carol Ann Lees Other [facility] 11-20-2022 15:10-0400 Body weight 117.94 kg Carol Ann Lees Other [facility] 11-20-2022 15:10-0400 Diastolic blood pressure 72 mm[Hg] Carol Ann Lees Other [facility] 11-20-2022 15:10-0400 Respiratory rate 16 /min Carol Ann Lees Other [facility] 11-20-2022 15:10-0400 SaO2% (BldA) [Mass fraction] 99 % Carol Ann Lees Other [facility] 11-20-2022 15:10-0400 Systolic blood pressure 135 mm[Hg] Carol Ann Lees Other [facility] 09-02-2022 14:31-0500 Body height 167.6 cm Yoly Chizmadia TOOLROOM MACHINIST.LOAN SUPERVISOR Work Phone: [facility] 09-02-2022 14:31-0500 Body weight 99.79 kg Yoly Chizmadia TOOLROOM MACHINIST.LOAN SUPERVISOR Work Phone: [facility] 09-02-2022 14:31-0500 Diastolic blood pressure 87 mm[Hg] Yoly Chizmadia TOOLROOM MACHINIST.LOAN SUPERVISOR Work Phone: [facility] 09-02-2022 14:31-0500 Heart rate 91 /min Yoly Chizmadia TOOLROOM MACHINIST.LOAN SUPERVISOR Work Phone: [facility] 09-02-2022 14:31-0500 Systolic blood pressure 135 mm[Hg] Yoly Chizmadia TOOLROOM MACHINIST.LOAN SUPERVISOR Work Phone: [facility] 07-27-2022 13:55-0500 Body height 167.64 cm Erica Perry Other [facility] 07-27-2022 13:55-0500 Body mass index (BMI) [Ratio] 40.67 kg/m2 Erica Perry Other [facility] 07-27-2022 13:55-0500 Body temperature 98.4 [degF] Erica Perry Other [facility] 07-27-2022 13:55-0500 Body weight 114.31 kg Erica Perry Other [facility] 07-27-2022 13:55-0500 Respiratory rate 18 /min Erica Perry Other [facility] Other 07-27-2022 13:55-0500 SaO2% (BldA) [Mass fraction] 97 % Erica Perry Other [facility] 07-13-2022 13:18-0500 Diastolic blood pressure 54 mm[Hg] Chair Raissa Work Phone: [facility] 07-13-2022 13:18-0500 Heart rate 90 /min Chair Coles Work Phone: [facility] 07-13-2022 13:18-0500 Respiratory rate 18 /min Chair Coles Work Phone: [facility] 07-13-2022 13:18-0500 SaO2% (BldA) [Mass fraction] 96 % Chair Raissa Work Phone: [facility] 07-13-2022 13:18-0500 Systolic blood pressure 118 mm[Hg] Chair Coles Work Phone: [facility] 07-13-2022 12:15-0500 Body temperature 97.81 [degF] Chair Raissa Work Phone: [facility] 05-24-2022 14:18-0400 Blood Pressure Location Yusuf CASTRO [facility] [place] 05-24-2022 14:18-0400 Diastolic blood pressure 80 mm[Hg] Yusuf CASTR[facility] [place] 05-24-2022 14:18-0400 Heart rate 70 /min Yusuf CASTR[facility] [place] 05-24-2022 14:18-0400 Respiratory rate 16 /min Yusuf CASTR[facility] [place] 05-24-2022 14:18-0400 Systolic blood pressure 118 mm[Hg] Yusuf CASTRO [facility] [place] Encounters Encounter Date Encounter Type Care Provider Facility Start: 08-28-2024 End: 08-28-2024 Office outpatient visit 15 minutes Zoe HADLEY Work Phone: [facility] Comment on above: Encounter for weight management Start: 08-28-2024 End: 08-28-2024 ambulatory ZOE NORIEGA Not Available Start: 08-28-2024 End: 08-28-2024 Bamboo flowsheet Zoe HADLEY Work Phone: [facility] Start: 08-28-2024 End: 08-28-2024 Bamboo flowsheet Zoe HADLEY Work Phone: [facility] Start: 08-26-2024 End: 08-26-2024 Clinisync Result Encounter Generic External Data Provider [facility] External Department Unsolicited Start: 08-26-2024 End: 08-26-2024 Clinis[facility] Result Encounter Generic External Data Provider [facility] External Department Unsolicited Start: 08-20-2024 End: 08-20-2024 Cl[facility] Result Encounter Generic External Data Provider [facility] External Department Unsolicited Start: 08-20-2024 End: 08-20-2024 Clinis[facility] Result Encounter Generic External Data Provider [facility] External Department Unsolicited Start: 08-19-2024 End: 08-19-2024 Clinis[facility] Result Encounter Generic External Data Provider [facility] External Department Unsolicited Start: 08-19-2024 End: 08-19-2024 Clinis[facility] Result Encounter Generic External Data Provider [facility] External Department Unsolicited Start: 07-31-2024 End: 07-31-2024 Patient encounter procedure Zoe HADLEY Work Phone: [facility] Comment on above: Weight gain; Encounter for weight management Start: 07-31-2024 End: 07-31-2024 ambulatory ZOE NORIEGA Not Available Start: 07-31-2024 End: 07-31-2024 Bamboo flowsheet Zoe HADLEY Work Phone: [facility] Start: 07-31-2024 End: 07-31-2024 Bamboo flowsheet Zoe HADLEY Work Phone: [facility] Start: 07-30-2024 End: 07-30-2024 Office outpatient visit 25 minutes Jayme Schmidt MD Work Phone: [facility] Comment on above: Bipolar 1 [...] 07-30-2024 ambulatory Autumn Barclay MD Work Phone: [facility] Comment on above: Foot and physical th erapy Start: 07-26-2024 End: 07-26-2024 ambulatory Autumn Barclay MD Work Phone: [facility] Comment on above: Relapsing remitting multiple sclerosis (HCC) (Primary Dx) Start: 07-26-2024 End: 07-26-2024 Telemedicine consultation with patient Autumn Barclay MD Work Phone: [facility] Start: 07-18-2024 End: 07-18-2024 ambulatory JAYME SCHMIDT Facility:[facility] Start: 07-18-2024 End: 07-18-2024 Subsequent hospital visit by physician Anjana Villaseñor (I-Stat/3t) Work Phone: Radiology Comment on above: Multiple sclerosis ( HCC) [G35] Start: 07-15-2024 End: 07-15-2024 Clinisync Result Encounter Generic External Data Provider [facility] External Department Unsolicited Start: 07-15-2024 End: 07-15-2024 Clinisync Result Encounter Generic External Data Provider [facility] External Department Unsolicited Start: 07-15-2024 End: 07-15-2024 ambulatory Chair Valarie Munroe Work Phone: Hematology/Oncology Comment on above: [...] minutes Jayme Schmidt MD Work Phone: [facility] Comment on above: Bipolar 1 disorder, [...] Start: 05-08-2024 End: 05-09-2024 ambulatory Yoly Chizmadia TOOLROOM MACHINIST.LOAN SUPERVISOR Work Phone: [facility] Comment on above: Doctors note Start: 04-25-2024 End: 04-25-2024 Telephone encounter Autumn Barclay MD Work Phone: [facility] Comment on above: Appointment (m for patient to call so we can get er scheduled fora follow up in [place] with dr barclay) Start: 04-24-2024 End: 04-24-2024 ambulatory Autumn Barclay MD Work Phone: Neurology Comment on above: Chronic fatigue synd kathia (Primary Dx); Multiple sclerosis ([facility]) Start: 04-24-2024 End: 04-24-2024 Telemedicine consultation with patient Autumn Barclay MD Work Phone: Neurology Start: 04-18-2024 End: 04-18-2024 Refill Jayme Schmidt MD Work Phone: [facility] Comment on above: Multiple sclerosis ( CMS/HCC) Start: 03-25-2024 End: 03-26-2024 ambulatory Yoly Chizmadia TOOLROOM MACHINIST.LOAN SUPERVISOR Work Phone: [facility] Comment on above: Doctors note for wor [...] Clinisync Result Encounter Zoe HADLEY Work Phone: [facility] External Department Unsolicited Start: 03-18-2024 End: 03-18-2024 Office outpatient visit 25 minutes Jayme Schmidt MD Work Phone: [facility] Comment on above: Bipolar 1 disorder, depressed, mild (CMS/HCC) (Primary Dx); JEFF (generalized anxiety disorder) (CMS/HCC); Migraine without aura and without status migrainosus, not intractable (CMS/HCC); Multiple sclerosis (CMS/HCC); Irritable bowel syndrome with both constipation and diarrhea Start: 03-18-2024 End: 03-18-2024 ambulatory JAYME SCHMIDT Not Available Start: 03-12-2024 End: 03-12-2024 Refill Jayme Schmidt MD Work Phone: [facility] Comment on above: Multiple sclerosis ( CMS/HCC) Start: 02-19-2024 End: 02-19-2024 Telemedicine consultation with patient Marielle Gannon APRN.LOAN SUPERVISOR Work Phone: [facility] Start: 02-19-2024 End: 02-19-2024 ambulatory Marielle Gannon APRN.CNP Work Phone: [facility] Comment on above: Radiculopathy, lumba r region (Primary Dx); Lumbar spondylosis Start: 01-17-2024 End: 01-17-2024 ambulatory Chair 2 Raissa Work Phone: Hematology/Oncology Comment on above: Multiple sclerosis ( HCC) (Primary Dx) Start: 12-29-2023 End: 12-29-2023 ambulatory MARIELLE GANNON Facility:[facility] Start: 12-29-2023 End: 12-29-2023 Patient encounter procedure Marielle Gannon TOOLROOM MACHINIST.LOAN SUPERVISOR Work Phone: [facility] [place] [facility] Comment on above: Radiculopathy, lumba r region (Primary Dx); Spinal stenosis, lumbar region, without neurogenic claudication; Lumbar spondylosis; Multiple sclerosis (HCC) Start: 12-19-2023 End: 12-19-2023 ambulatory Shelbie M Chalino Facility:[facility] Start: 12-19-2023 End: 12-19-2023 ambulatory MD Jayme Schmidt Work Phone: [facility] Work Phone: Start: 12-19-2023 End: 12-19-2023 Patient encounter procedure MD Jayme Schmidt Work Phone: [facility] [place] Work Phone: Start: 11-14-2023 End: 11-14-2023 ambulatory JAYME SCHMIDT Facility:[facility] Start: 11-14-2023 End: 11-14-2023 Subsequent hospital visit by physician Anjana May (I-Stat/1.5t) Radiology Comment on above: Multiple sclerosis ( HCC) [G35] Spinal stenosis of l umbar region without neurogenic claudication [M48.061] Start: 10-31-2023 ambulatory Yoly Chizma tiffany TOOLROOM MACHINIST.LOAN SUPERVISOR Work Phone: [facility] Start: 10-31-2023 Patient encounter procedure Yoly Chizmadia TOOLROOM MACHINIST.LOAN SUPERVISOR Work Phone: [facility] Comment on above: Sciatica Referral Start: 10-29-2023 ambulatory Yoly Chizma tiffany TOOLROOM MACHINIST.LOAN SUPERVISOR Work Phone: [facility] Comment on above: Sciatica Start: 09-25-2023 End: 09-25-2023 Patient encounter procedure MD Jayme Schmidt Work Phone: [facility] [place] Work Phone: Start: 09-18-2023 End: 09-18-2023 ambulatory JAYME SCHMIDT Not Available Start: 08-29-2023 End: 08-29-2023 ambulatory JAYME SCHMIDT Facility:[facility] Start: 08-29-2023 End: 08-29-2023 Patient encounter procedure Yoly Miller APRN.LOAN SUPERVISOR Work Phone: [facility] Comment on above: Spinal stenosis of l umbar region without neurogenic claudication (Primary Dx); Multiple sclerosis (HCC) Start: 04-08-2023 End: 04-08-2023 ambulatory Erica Vicky Other [facility] Other Start: 04-08-2023 Office outpatient vi sit 15 minutes Erica Vicky [facility] [place] Start: 01-28-2023 End: 01-28-2023 ambulatory Erica Vicky Other [facility] Other Start: 01-28-2023 Office outpatient vi sit [...] End: 11-20-2022 ambulatory Carol Ann Lees Other [facility] Other Start: 11-20-2022 Office outpatient vi sit 25 minutes Carol Ann Lees [facility] [place] Start: 09-27-2022 Refill Yoly allen APRN.LOAN SUPERVISOR Work Phone: [facility] Comment on above: Refill Request Start: 09-12-2022 Chart abstracting Sammie ryan Research Coordinator [facility] Start: 09-02-2022 End: 09-02-2022 Patient encounter procedure Yoly Harristiffany TOOLROOM MACHINIST.LOAN SUPERVISOR Work Phone: [facility] Comment on above: Multiple sclerosis ( HCC) (Primary Dx); Encounter for long-term (current) use of medications Start: 07-27-2022 End: 07-27-2022 ambulatory Erica Perry Other [facility] Other Start: 07-27-2022 Office outpatient vi sit 25 minutes Erica Perry [facility] [place] Start: 07-14-2022 ambulatory Yoly allen TOOLROOM MACHINIST.LOAN SUPERVISOR Work Phone: [facility] Comment on above: Question regarding C D19 ABSOLUTE COUNT Start: 07-13-2022 End: 07-13-2022 ambulatory Chair 5 Raissa Work Phone: Hematology/Oncology Comment on above: Multiple sclerosis ( HCC) (Primary Dx) Start: 07-05-2022 End: 07-06-2022 ambulatory Yusuf CASTRO Facility:[facility] Start: 07-05-2022 End: 07-05-2022 Patient encounter procedure Yusuf CASTRO General Surgery Nill/Said Annmarie Start: 06-22-2022 Encounter for preprocedural laboratory examination DR YUSUF CASTRO [facility] Start: 06-22-2022 End: 06-23-[address] YUSUF CASTRO Facility:[facility] Start: 06-18-2022 End: 06-19-[address] YUSUF CASTRO Facility:[facility] Start: 06-18-2022 End: 06-19-2022 Encounter for preprocedural laboratory examination DR YUSUF CASTRO Facility:[facility] Start: 05-24-2022 End: 05-25-2022 ambulatory JAYME SCHMIDT Facility:[facility] Start: 05-24-2022 End: 05-24-2022 Patient encounter procedure Yusuf CASTRO General Surgery Nill/Said Annmarie Start: 05-09-2022 Encounter for genera l adult medical examination without abnormal findings DR JAYME SCHMIDT [facility] Start: 05-06-2022 End: 05-07-[address] JAYME SCHMIDT Facility: Start: 05-06-2022 End: 05-07-2022 Encounter for general adult medical examination without abnormal findings DR JAYME SCHMIDT Facility: Start: 04-20-2022 ambulatory Yusuf CASTRO Facility :[facility] Start: 03-11-2022 ambulatory Clau Meridatrina Stantoni ty:Alba Start: 11-14-2021 End: 11-14-2021 Emergency department patient visit JAYME SCHMIDT Facility:[facility] Start: 11-09-2021 Refill Autumn Barclay MD Work Phone: [facility] Comment on above: Urine Bacteria Start: 2021 End: 2021 Subsequent hospital visit by physician Anjana Villaseñor (I-Stat/3t) Work Phone: Radiology Comment on above: Multiple sclerosis ( HCC) [G35] Start: 11-01-2021 ambulatory Yoly allen APRN.LOAN SUPERVISOR Work Phone: [facility] Comment on above: Reply to bladder iss ues Start: 09-23-2021 End: 09-24-2021 [facility] Procedures Date Procedure Procedure Detail Performing Clinician Start: 08-26-2024 Fluoroscopy duration Generic External Data Provider Start: 08-20-2024 XR FOOT LT MIN 3V Generic External Data Provider Start: 08-19-2024 ALL CBC WITH AUTO DIFF Generic External Data Provider Start: 07-18-2024 Mri spinal canal cervical w/o & w/contr matrl Autumn Barclay MD Work Phone: Start: 07-15-2024 [facility] CBC W AUTO DIFF BLD Generic External Data Provider Start: 07-15-2024 Blood count complete auto&auto difrntl wbc Yoly Miller APRN.LOAN SUPERVISOR Work Phone: Start: 03-18-2024 IGP,APTIMA HPV,AGE GDLN Generic External Data Provider Start: 01-17-2024 Blood count complete auto&auto difrntl wbc Yoly Harrisdia TOOLROOM MACHINIST.[facility] Work Phone: Start: 12-19-2023 Plain chest X-ray MD Jayme Schmidt Work Phone: Start: 11-14-2023 Mri brain brain stem w/o w/contrast material Yoly Thomaszmadia TOOLROOM MACHINIST.[facility] Work Phone: Start: 01-23-2023 BRAIN & CERVICAL SPINE MRI DISCRETE DATA [facility] Provider Start: 01-23-2023 Mri brain brain stem w/o w/contrast material Yoly Thomaszmadia TOOLROOM MACHINIST.[facility] Work Phone: Start: 06-22-2022 Colonoscopy Yusuf NILL Start: 06-22-2022 Esophagogastroduodenoscopy Yusuf NILL Start: 2021 BRAIN & CERVICAL SPINE MRI DISCRETE DATA [facility] Provider Start: 2021 Mri brain brain stem w/o w/contrast material Yoly Chizmadia TOOLROOM MACHINIST.[facility] Work Phone: Start: 08-03-2021 Adult depression screening assessment Yoly Harrisdia TOOLROOM MACHINIST.[facility] Work Phone: Cholecystectomy Yusuf JINL Esophagogastroduodenoscopy M ichgrecia NILL Removal of pilonidal cyst Mi chasoo NILL Tonsillectomy Yusuf NILL Plan of Treatment Date Care Activity Detail Author Start: 01-28-2025 End: 01-28-2025 Patient encounter procedure 01/28/2025 1:00 PM EDT Office Visit [facility] [address] [place] [address] Jayme Schmidt MD [address] [place] [address] [facility] Start: 01-28-2025 End: 01-28-2025 Follow-up encounter 01/28/2025 10:45 AM EDT Formerly [facility] [address] [address] Yoly Miller, ONEIDA.LOAN SUPERVISOR [address] [place] [address] Follow Up [facility] Comment on above: Follow Up Start: 01-13-2025 End: 01-13-2025 ambulatory 01/13/2025 9:00 AM EDT [facility] Hematology/Oncology [address] [place] [address] [place] [address] [facility] Comment on above: [facility] Start: 10-22-2024 End: 10-22-2024 Patient encounter procedure 10/22/2024 2:40 PM EDT Appointment Radiology [address] [place] [id number] MRI BRAIN WO/W IVCON Radiology Comment on above: MRI BRAIN WO/W IVCON Start: 10-22-2024 End: 08-25-2025 MR Brain WO and W contrast IV MRI BRAIN WO/W IVCON Radiology Routine Relapsing remitting multiple sclerosis (HCC) Expected: 10/22/2024, Expires: 08/25/2025 [facility] Work Phone: Comment on above: Expected: 10/22/2024 , Expires: 08/25/2025 Start: 09-25-2024 End: 09-25-2024 Patient encounter procedure 09/25/2024 2:30 PM EST Office Visit [facility] [address] [facility] [place] [address] Zoe Noriega PA [address] [place] [address] [facility] Start: 09-11-2024 End: 09-11-2024 Patient encounter procedure 09/11/2024 9:40 AM EST Office Visit [facility] [address] [facility] [address] [place] [phone] Jonathan Muller MD [address] [facility] [address] [place] [address] [facility] Start: 09-04-2024 End: 09-04-2024 Clinical Support 09/04/2024 8:45 AM EST Clinical Support [facility] [address] [facility] [address] [place] [phone] Kristin Johnston, [facility] [address] [place] [address] [facility] Start: 08-28-2024 End: 08-28-2024 Patient encounter procedure [facility] Comment on above: Arrived Start: 07-31-2024 End: 07-31-2024 Patient encounter procedure [facility] Comment on above: Arrived Start: 07-30-2024 End: 07-30-2024 Patient encounter procedure [facility] Comment on above: Arrived Start: 07-26-2024 End: 07-26-2024 Follow-up encounter 07/26/2024 2:30 PM EST [facility] [address] [place] [address] Autumn Barclay MD [address] [place] [address] MS follow up pt having numbness and bowel changes [facility] Comment on above: MS follow up pt havi ng numbness and bowel changes Start: 07-18-2024 End: 07-18-2024 Patient encounter procedure 07/18/2024 1:20 PM EST Appointment Radiology [address] [address] MRI THORACIC SPINE WO/W IVCON Radiology Comment on above: MRI THORACIC SPINE W O/W IVCON Start: 07-18-2024 Subsequent hospital visit by physician 07/18/2024 1:20 PM EST Hospital Encounter Radiology [address] [address] Multiple sclerosis (HCC) [G35] Radiology Comment on above: Multiple sclerosis ( HCC) [G35] Start: 07-15-2024 End: 10-14-2024 CD19 ABSOLUTE COUNT [facility] Comment on above: Expected: 07/15/2024 , Expires: 10/14/2024 Start: 07-15-2024 End: 10-14-2024 Comprehensive metabolic 2000 panel - Serum or Plasma [facility] Work Phone: Comment on above: Expected: 07/15/2024 , Expires: 10/14/2024 Start: 07-15-2024 End: 10-14-2024 IgG [Mass/volume] in Serum or Plasma [facility] Comment on above: Expected: 07/15/2024 , Expires: 10/14/2024 Start: 07-15-2024 End: 07-15-2024 ambulatory 07/15/2024 9:00 AM [facility] Center Hematology/Oncology [address] [place] [address] [place] [address] [facility] Comment on above: [facility] Start: 07-08-2024 End: 07-08-2024 Patient encounter procedure [facility] Comment on above: Arrived Start: 06-24-2024 End: 06-24-2024 Patient encounter procedure [facility] Comment on above: Arrived Start: 06-17-2024 End: 06-17-2024 Patient encounter procedure 06/17/2024 8:30 AM EST Office Visit [facility] [address] [place] [phone] Jayme Schmidt MD [address] [place] [phone] [facility] Start: 06-10-2024 End: 06-10-2024 Patient encounter procedure 06/10/2024 1:50 PM EST Office Visit [facility] [address] [place] [address] [place] [address] Casey Rae DO [facility] [place] [address] [facility] Start: 06-05-2024 End: 06-05-2024 Patient encounter procedure 06/05/2024 1:00 PM EST Office Visit [facility] [address] [facility] [address] [place] [phone] Jonathan Muller MD [address] [facility] [address] [place] [address] [facility] Start: 05-27-2024 End: 05-27-2024 Follow-up encounter 05/27/2024 4:30 PM [facility] [address] [place] [address] Marielle Gannon APRN.LOAN SUPERVISOR [address] [place] [address] 3 mo virtual follow up [facility] Comment on above: 3 mo virtual follow up Start: 05-13-2024 End: 05-13-2024 Patient encounter procedure 05/13/2024 11:10 AM EDT Office Visit [facility] [address] [facility] [place] [phone] Casey Rae, DO [address] [place] [address] [facility] Start: 05-01-2024 End: 05-24-2025 MR Cervical spine WO and W contrast IV MRI CERVICAL SPINE WO/W IVCON Radiology Routine Multiple sclerosis (HCC) Expected: 05/01/2024, Expires: 05/24/2025 [facility] Work Phone: Comment on above: Expected: 05/01/2024 , Expires: 05/24/2025 Start: 05-01-2024 End: 05-24-2025 MR Thoracic spine WO and W contrast IV MRI THORACIC SPINE WO/W IVCON Radiology Routine Multiple sclerosis (HCC) Expected: 05/01/2024, Expires: 05/24/2025 [facility] Comment on above: Expected: 05/01/2024 , Expires: 05/24/2025 Start: 04-23-2024 End: 04-23-2024 Patient encounter procedure 04/23/2024 1:50 PM EDT Office Visit [facility] [address] [facility] [address] Casey Rae, [address] [facility] [place] [address] [facility] Start: 04-01-2024 End: 04-01-2024 Professional / ancillary services management 04/01/2024 10:00 AM EDT Ancillary Procedure [facility] [address] [facility] [phone] [facility] Start: 03-24-2024 Covid-19 Vaccine ( season) Covid-19 Vaccine ( season) [facility] Start: 03-24-2024 Covid-19 Vaccine ( season) Covid-19 Vaccine ( season) [facility] Start: 03-24-2024 Influenza vaccination [facility] Start: 03-18-2024 End: 03-18-2025 US for US PELVIS-TRANSVAG IF INDICATED Imaging Routine PCOS (polycystic ovarian syndrome) Expected: 03/18/2024 (Approximate), Expires: 03/18/2025 [facility] Comment on above: Expected: 03/18/2024 (Approximate), Expires: 03/18/2025 Start: 03-18-2024 End: 03-18-2024 Patient encounter procedure [facility] Comment on above: Arrived Start: 02-19-2024 End: 02-19-2024 ambulatory 02/19/2024 3:00 PM EDT [facility] [address] [place] [address] Marielle Gannon, TOOLROOM MACHINIST.LOAN SUPERVISOR [address] [place] [address] 8 week f/u with provider. [facility] Comment on above: 8 week f/u with prov ider. Start: 01-17-2024 End: 04-17-2024 CD19 ABSOLUTE COUNT [facility] Work Phone: Comment on above: Expected: 01/17/2024 , Expires: 04/17/2024 Start: 01-17-2024 End: 01-17-2024 ambulatory 01/17/2024 9:00 AM EDT [facility] Center Hematology/Oncology [address] [place] [address] [place] [address] [facility] Comment on above: [facility] Start: 12-29-2023 End: 12-29-2023 Patient encounter procedure 12/29/2023 1:50 PM EDT Office Visit [facility] [place] [address] [place] [phone] Marielle Gannon, TOOLROOM MACHINIST.LOAN SUPERVISOR [address] [place] [address] slipped disc [facility] Comment on above: slipped disc Start: 07-24-2023 Behavioral Health Screening Behavioral Health Screening [facility] Start: 07-24-2023 Depression Assessment Depression Ass essment [facility] Start: 03-24-2023 Covid-19 Vaccine ( season) Covid-19 Vaccine ( season) [facility] Start: 03-24-2023 Influenza vaccination C [facility] Start: 01-11-2023 End: 03-13-2023 CD19 ABSOLUTE COUNT [facility] Work Phone: Comment on above: Expected: 01/11/2023 , Expires: 03/13/2023 Start: 08-03-2022 Adult depression screening assessment DEPRESSION SCREENING [facility] Start: 07-24-2022 DEPRESSION ASSESSMENT DEPRESSION ASS ESSMENT [facility] Start: 07-13-2022 End: 09-12-2022 CD19 ABSOLUTE COUNT [facility] Work Phone: Comment on above: Expected: 07/13/2022 , Expires: 09/12/2022 Start: 03-24-2022 Influenza vaccination C [facility] Start: 11-01-2021 End: 01-01-2022 Bacteria identified in Urine by Culture URINE CULTURE Microbiology Routine Multiple sclerosis ([facility]) Expected: 11/01/2021, Expires: 01/01/2022 [facility] Work Phone: Comment on above: Expected: 11/01/2021 , Expires: 01/01/2022 Start: 11-01-2021 End: 01-01-2022 URINALYSIS, DIPSTICK ONLY URINALYSIS, DIPSTICK ONLY Lab Routine Multiple sclerosis ([facility]) Expected: 11/01/2021, Expires: 01/01/2022 [facility] Work Phone: Comment on above: Expected: 11/01/2021 , Expires: 01/01/2022 Start: 07-24-2021 DEPRESSION ASSESSMENT DEPRESSION ASS ESSMENT [facility] Start: 06-19-2021 COVID-19 VACCINE (3 - Booster for Pfizer series) COVID-19 VACCINE (3 - Booster for Pfizer series) [facility] Start: 01-19-2020 Urine microalbumin profile DTaP,Tdap,Td Vaccine (7 - Td or Tdap) [facility] Start: 2018 PAP TESTING PAP TESTING [facility] Start: 2018 Screening for malign ant neoplasm of cervix [facility] Start: 2016 Urine microalbumin profile DTAP,TDAP,TD (1 - Tdap) [facility] Start: 11-06-2015 Anxiety Screening Anxiety Screening [facility] Start: 11-06-2015 CHLAMYDIA SCREENING (18-24) CHLAMYDIA SCREENING (18-24) [facility] Start: 11-06-2015 Depression Screening Depression Scre ening [facility] Start: 11-06-2015 GC (GONORRHEA) SCREE ALEX (18-24) GC (GONORRHEA) SCREENING (18-24) [facility] Start: 2012 HPV Vaccine (1 - 3-d ose series) HPV Vaccine (1 - 3-dose series) [facility] Start: 11-06-2011 PEDS TO ADULT TRANSI TION ANNUAL ASSESSMENT PEDS TO ADULT TRANSITION ANNUAL ASSESSMENT [facility] Start: 2009 PEDS TO ADULT TRANSI TION INITIAL DISCUSSION PEDS TO ADULT TRANSITION INITIAL DISCUSSION [facility] Start: 2008 HPV VACCINE (1 - 2-d ose series) HPV VACCINE (1 - 2-dose series) [facility] Start: 11-06-2007 MENINGOCOCCAL B: Consider based on risk (1 of 2 - Risk Bexsero 2-dose series) MENINGOCOCCAL B: Consider based on risk (1 of 2 - Risk Bexsero 2-dose series) [facility] Start: 2006 HPV VACCINE (1 - 2-d ose series) HPV VACCINE (1 - 2-dose series) [facility] Start: 2002 COVID-19 VACCINE (1) COVID-19 VACCIN E (1) [facility] Start: 1997 HEPATITIS B (1 of 3 - 3-dose series) HEPATITIS B (1 of 3 - 3-dose series) [facility] Cytology Cervical or vaginal smear or scraping study Pap Smear Pathology and Cytology Routine Well woman exam with routine gynecological exam Ordered: 03/18/2024 [facility] Work Phone: Comment on above: Ordered: 03/18/2024 End: 10-02-2023 Mri brain brain stem w/o w/contrast material MRI BRAIN WO/W IVCON Radiology Routine Multiple sclerosis (HCC) Encounter for long-term (current) use of medications 1 Occurrences starting 09/02/2022 until 10/02/2023 [facility] Work Phone: Comment on above: 1 Occurrences starti ng 09/02/2022 until 10/02/2023 End: 10-02-2023 Mri spinal canal cervical w/o & w/contr matrl MRI CERVICAL SPINE WO/W IVCON Radiology Routine Multiple sclerosis (HCC) Encounter for long-term (current) use of medications 1 Occurrences starting 09/02/2022 until 10/02/2023 [facility] Work Phone: Comment on above: 1 Occurrences starti ng 09/02/2022 until 10/02/2023 End: 09-27-2024 Mri spinal canal lumbar w/o contrast material MRI LUMBAR SPINE WO IVCON Radiology Routine Spinal stenosis of lumbar region without neurogenic claudication 1 Occurrences starting 08/29/2023 until 09/27/2024 [facility] Work Phone: Comment on above: 1 Occurrences starti ng 08/29/2023 until 09/27/2024 End: 01-27-2025 XR Lumbar spine 3 Views XR LUMBAR GENERAL 3V AP/LAT/L5-S1 Radiology Routine Radiculopathy, lumbar region Spinal stenosis, lumbar region, without neurogenic claudication Lumbar spondylosis 1 Occurrences starting 12/29/2023 until 01/27/2025 [facility] Work Phone: Comment on above: 1 Occurrences starti ng 12/29/2023 until 01/27/2025 [facility] [facility] Immun[facility] Immunization Date Immunization Notes Care Provider Fa cili 04-24-2021 SARS-CoV-2 (COVID-19 ) mRNA BNT-162b2 jacqueline CASTRO [facility] Comment on above: Result Comment: 2021: TPVAL 04-01-2021 SARS-CoV-2 (COVID-19 ) mRNA BNT-162b2 jacqueline CASTRO [facility] Comment on above: Result Comment: 2021: TPVAL 01-18-2010 tetanus toxoid, redu bon diphtheria toxoid, and acellular pertussis vaccine, adsorbed Jayme Schmidt MD Work Phone: [facility] 11-22-1998 varicella virus vaccine Jayme Schmidt MD Work Phone: [facility] Healthcare Payers Date Payer Category Payer Medicaid (Managed Care) [employer] [id number] 2023 Self-pay 2023 Medicaid [id number] 2023 Medicaid [id number] 2017 Unknown [employer] PPO OOS [id number] 2017-Present [phone] [address] [place] [address] PPO [id number] 2017 Unknown 1997 Unknown [id number] 2.16.840.1.080650.3.579.2. 196 1997 Unknown [id number] 2.16840.1.076649.3.579.2. 196 1997 Unknown [id number] 2.16.840.1.194041.3.579.2. 593 1997 Unknown [id number] 2.16.840.1.096199.3.579.2. 593 1997 Unknown [id number] 2.16.840.1.875121.3.579.2. 593 1997 Unknown [id number] 2.16.840.1.351547.3.579.2. 727 1997 Unknown [id number] 2.16.840.1.487655.3.579.2. 727 1997 Unknown [id number] 2.16.840.1.872806.3.579.2. 727 1997 Unknown [id number] 2.16.840.1.160342.3.579.2. 727 1997 Unknown [id number] 2.16.840.1.903306.3.579.2. 9 1997 Unknown [id number] 2.16.840.1.291529.3.579.2. 1258 1997 Unknown [id number] 2.16.840.1.423301.3.579.2. 1258 1997 Unknown [id number] 2.16.840.1.716799.3.579.2. 1258 1997 Unknown [id number] 2.16.840.1.180260.3.579.2. 1258 1997 Unknown [id number] 2.16.840.1.834604.3.579.2. 1258 1997 Unknown [id number] 2.16.840.1.282900.3.579.2. 1258 1997 Unknown [id number] 2.16.840.1.034789.3.579.2. 1258 1997 Unknown [id number] 2.16.840.1.024534.3.579.2. 1258 1997 Unknown [id number] 2.16.840.1.404721.3.579.2. 1259 1962 Unknown [id number] 2.16.840.1.376995.3.579.2. 727 1959 Unknown [id number] Private Health Insurance [employer] [id number] Unknown [id number] 2.16.840.1.693011.3.579.2. 531 Social History Date Type Detail Facility Start: 09-09-2013 End: 03-28-2023 Tobacco smoking status NHIS Never smoked tobacco [facility] Start: 09-09-2013 End: 03-28-2023 Tobacco use and exposure Smokeless tobacco non-user [facility] Start: 08-03-2021 End: 12-29-2023 Alcohol intake Current non-drinker of alcohol (finding) [facility] Start: 1995 Sex Assigned At Female [facility] Start: 10-26-2021 End: 2021 Exposure to SARS-CoV-2 (event) Not sure [facility] Tobacco smoking status Smokeless tobacco user within last 30 days [facility] Start: 08-29-2023 End: 09-17-2023 [address] Female [facility] History of tobacco use Passive smoker [facility] Start: 08-29-2023 End: 09-17-2023 History of Social function [facility] Start: 07-21-2021 Gender identity Identifies as female gender (finding) [facility] Start: 07-21-2021 Sexual orientation Heterosexual (finding) [facility] Start: 09-25-2023 Tobacco smoking status NHIS Unknown if ever smoked [facility] Start: 03-18-2024 End: 08-28-2024 Alcoholic beverage intake Ex-drinker (finding) [facility] Do you belong to any clubs or organizations such as restorationism groups, unions, fraternal or athletic groups, or [...] Facility 05-24-2022 Functional Status N/A 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 female who presents for Weight Management Patient presents today for Weight Management Consult. MEDICATIONS Current Outpatient Medications Medication Instructions ARIPiprazole (ABILIFY) 15 mg, Oral, Daily aspirin 325 mg, Once clotrimazole (Lotrimin) 1 % cream Topical, 2 times daily ferrous sulfate 325 mg, Oral, 2 times daily levothyroxine (SYNTHROID, LEVOXYL) 75 mcg, Oral, Daily metFORMIN XR (GLUCOPHAGE-XR) 500 mg, Oral, 2 times daily, Do not crush, chew, or split. norgestimate-ethinyl estradiol (Ortho Tri-Cyclen,Trinessa) 0.18/0.215/0.25 MG-35 MCG tablet 1 tablet, Oral, Daily ocrelizumab (Ocrevus) 300 MG/10ML solution Yearly phentermine (ADIPEX-P) 37.5 mg, Oral, Daily before breakfast phentermine (ADIPEX-P) 37.5 mg, Oral, Daily before breakfast phentermine (ADIPEX-P) 37.5 mg, Oral, Daily before breakfast venlafaxine XR (EFFEXOR XR) 150 mg, Oral, Daily ALLERGIES Allergies Allergen Reactions Interferon Beta-1a Anaphylaxis, Hives and Shortness of breath Other Reaction(s): Unknown Pt was seen at ED for bronchospasms, hives and treated. Glatiramer Acetate Unknown Other Reaction(s): Hives Moxifloxacin Unknown Glatiramer Rash Other Reaction(s): Unknown PROBLEMS Active Ambulatory Problems Diagnosis Date Noted Acne vulgaris 03/28/2023 Adrenogenital disorder (CMS/HCC) 04/12/2005 Anemia 01/13/2015 Chronic bilateral low back pain with bilateral sciatica 07/08/2014 Bipolar 1 disorder, depressed, mild ([facility]) 03/28/2023 Multiple sclerosis ([facility]) 04/24/2014 JEFF (generalized anxiety disorder) ([facility]) 03/28/2023 History of PCOS 10/05/2015 Adult hypothyroidism ([facility]) 03/28/2023 Iron deficiency anemia 01/15/2015 Irritable bowel syndrome 03/28/2023 Migraine without aura and without status migrainosus, not intractable ([facility]) 08/16/2015 Vitamin D deficiency 03/28/2023 Class 3 severe obesity due to excess calories without serious comorbidity with body mass index (BMI) of 40.0 to 44.9 in adult ([facility]) 09/18/2023 PCOS (polycystic ovarian syndrome) 09/18/2023 Insulin resistance 09/18/2023 Encounter for long-term (current) use of medications 09/18/2023 Encounter for weight management 07/08/2024 Tinea pedis 07/30/2024 Resolved Ambulatory Problems Diagnosis Date Noted Bladder dysfunction 07/08/2014 Change in bowel habits 03/28/2023 Demyelinating changes in brain ([facility]) 12/01/2013 Exercise induced bronchospasm ([facility]) 02/08/2012 Frequent UTI 08/11/2015 Headache 01/20/2015 Memory disorder 08/11/2015 BMI 38.0-38.9,adult 03/28/2023 Proteinuria 03/28/2023 Acute non-recurrent pansinusitis 09/18/2023 Past Medical History: Diagnosis Date Bipolar affective disorder, currently depressed, mild ([facility]) Chronic migraine without aura without status migrainosus, not intractable ([facility]) Ear problems September 2022 Fatigue Gastritis Hypothyroid ([facility]) Irritable bowel syndrome with both constipation and diarrhea MS (multiple sclerosis) ([facility]) Pneumonia, bacterial Polycystic ovarian disease HISTORY PAST MEDICAL HISTORY SOCIAL HISTORY Past Medical History: Diagnosis Date Acne vulgaris Anemia Bipolar affective disorder, currently depressed, mild ([facility]) BMI 38.0-38.9,adult 03/28/2023 Chronic migraine without aura without status migrainosus, not intractable ([facility]) Ear problems September 2022 Fatigue JEFF (generalized anxiety disorder) ([facility]) Gastritis Hypothyroid ([facility]) Insulin resistance Iron deficiency anemia [...] reviewed. Vitals: Estimated body mass index is 42.35 kg/m as calculated from the following: Height as of 06/24/24: 5' 6 . Weight as of this encounter: 262 lb 6.4 oz. BP: 122/70 No LMP recorded. ASSESSMENT & PLAN ICD-10-CM 1. Encounter for weight management Z76.89 phentermine (Adipex-P) 37.5 MG tablet Patient presents today for 3rd Adipex prescription. Patient desires additional weigh loss and she is currently taking metformin along with working out to achieve further results. The possibility of Ozempic for future use has been discussed. Weight and blood pressure has been captured and it has been discussed/reiterated the importance of keeping a food journal, proper nutrition/diet, and exercise regimen. Patient verbalized understanding. Patient has not lost more than 5% of her initial body weight Patient is recovering from foot surgery and unable to take the adipex until she is off aspirin from surgery. We gave script for refill today, pt will return to office in one month and assess how she is doing but she will not be on the medication for the majority of the month. Follow Up: Patient is to return to the office in 1 month for further evaluation to assess patient progress. Weight and blood pressure will need to be obtained in order for patient to receive 4th Adipex prescription. Documented by LEONIE Ca on behalf of: LEONIE Ca documented in this encounter [facility] 07-31-2024 History of Presen t illness Narrative [...] Anemia Bipolar affective disorder, currently depressed, mild (CMS/HCC) BMI 38.0-38.9,adult 03/28/2023 Chronic migraine without aura without status migrainosus, not intractable ([facility]) Ear problems September 2022 Fatigue JEFF (generalized anxiety disorder) ([facility]) Gastritis Hypothyroid ([facility]) Insulin resistance Iron deficiency anemia Irritable bowel syndrome with both constipation and diarrhea MS (multiple sclerosis) ([facility]) PCOS (polycystic ovarian syndrome) Pneumonia, [...] of LEONIE Ca documented in this encounter [facility] 07-30-2024 History of Presen t illness Narrative Associated Problem(s): Class 3 severe obesity due to excess calories without serious comorbidity with body mass index (BMI) of 40.0 to 44.9 in adult ([facility]) Weight down 10 pounds with adipex and continue. Associated Problem(s): Tinea pedis Start cream. Associated Problem(s): Multiple sclerosis ([facility]) No change and follow up with neurology. Associated Problem(s): JEFF (generalized anxiety disorder) ([facility]) Occasional symptoms but tolerable with medication and [...] 1 % cream documented in this encounter [facility] 07-26-2024 History of Presen t illness Narrative Images from the original note were not included. [facility] FOLLOWUP/ESTABLISHED PATIENT VISIT, Virtual PRINCIPAL [...] fumarate 2013 unknown new relapses/MRI changes/breakthrough ocrelizumab 2018 5 11/14/2023 Most recent MRI brain Number of new [...] been able to get into GI at [facility] until August of this year. - She [...] outside ED. 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 Wears pad Bowel: see HPI Fatigue: Always tired Sleep: Ok, naps occasionally . Doesn't wake up during the night. Memory/Concentration: concentration is ok. Usual treating team: Rd The patient is accompanied by self. The patient was last seen 05/26/2024, currently taking Ocrevus. Since the patient's last visit the patient reports overall feeling stable to worse. Issues with current therapy: Tolerating medication with diarrhea. Neuro-QoL Functions (higher=better functioning) Flowsheet Row Appointment from 07/26/2024 in [facility] from 04/24/2024 in Neurology Office Visit from 08/29/2023 in [facility] Upper Extremity Domain T Score 35 38 34.21 Lower Extremity Domain T Score 43 39 40.53 Cognitive Function Domain T Score 46 41 38.17 Positive Affect Well Being T Score -- -- -- Ability To Participate In Social Roles T Score 43 44 41.74 Satisfaction With Social Roles T Score 40 43 37.74 Neuro-QoL Symptoms (higher=worse symptoms) Flowsheet Row Appointment from 07/26/2024 in [facility] from 04/24/2024 in Neurology Office Visit from 08/29/2023 in [facility] Sleep Domain T Score 55 61 58.92 [...] Flowsheet Row Office Visit from 08/29/2023 in [facility] Office Visit from 12/04/2020 in [facility] Office Visit from 10/05/2017 in [facility] Processing Speed Total Number Correct 61 59 [...] locally Appointment on 07/26/24 MRI BRAIN [facility] FOLLOW UP CONSULT TO PHYSICAL THERAPY The chart was reviewed for possible participation in the following studies:None Patient Health Education Discussed at Visit: Aerobic exercise, Emotional Health/Wellness, Healthy Weight, and Need for PCP Nathaly Garcia MD Neuroimmunology Fellow [facility] I reviewed the note and [...] Autumn Barclay MD documented in this encounter [facility] 07-26-2024 Note HNO ID: [id number] Author: AUTUMN BARCLAY MD Service: ? Author Type: Fellow Type: Progress Notes Filed: 07/26/2024 15:20 Note Text: [facility] FOLLOWUP/ESTABLISHED PATIENT VISIT, Virtual PRINCIPAL [...] fumarate 2013 unknown new relapses/MRI changes/breakthrough ocrelizumab 2018 5 11/14/2023 Most recent MRI brain Number of new [...] been able to get into GI at [facility] until August of this year. - She [...] outside ED. 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: Mood is ok Spasticity: See HPI [...] functioning) Flowsheet Row Appointment from 07/26/2024 in [facility] from 04/24/2024 in Neurology Office Visit from 08/29/2023 in [facility] Upper Extremity Domain T Score 35 38 34.21 Lower Extremity Domain T Score 43 39 40.53 Cognitive Function Domain T Score 46 41 38.17 Positive Affect Well Being T Score -- -- -- Ability To Participate In Social Roles T Score 43 44 41.74 Satisfaction With Social Roles T Score 40 43 37.74 Neuro-QoL Symptoms (higher=worse symptoms) Flowsheet Row Appointment from 07/26/2024 in [facility] from 04/24/2024 in Neurology Office Visit from 08/29/2023 in [facility] Sleep Domain T Score 55 61 58.92 [...] LMP 08/29/2023 (Exact Date) MSPT Results Flowsheet [facility] Office Visit from 08/29/2023 in [facility] Office Visit from 12/04/2020 in [facility] Office Visit from 10/05/2017 in [facility] Processing Speed Total Number Correct 61 59 [...] and higher intellect (more content not included)... [facility] 07-18-2024 History of Presen t illness [...] PATIENT PRESENTS WITH AN IMPLANTABLE OR ATTACHED DOCK MANAGER: No ALLERGIES: Reviewed and unchanged CONTRAST ALLERGY: NO. EXAM: MRI - CONTRAST TYPE: GROUP II PERIPHERAL IV DATA: Ambulatory: A peripheral IV was started in the Right antecubital site with a Butterfly: 25 gauge. RADIOLOGY DEPARTMENT: MR; Exam(s) Completed: Spine: Cervical spine and Thoracic spine SIGNATURE: RT Jeffrey(Shelby) PATIENT NAME: Natalie Jaquez DATE: July 18, 2024 TIME: 1:47 PM documented in this encounter [facility] 07-18-2024 Note HNO ID: [id number] Author: DANICA NGUYEN RT (R) Service: Radiology Author Type: Technologist Type: Progress [...] PATIENT PRESENTS WITH AN IMPLANTABLE OR ATTACHED DOCK MANAGER: No ALLERGIES: Reviewed and unchanged CONTRAST ALLERGY: NO. EXAM: MRI - CONTRAST TYPE: GROUP II PERIPHERAL IV DATA: Ambulatory: A peripheral IV was started in the Right antecubital site with a Butterfly: 25 gauge. RADIOLOGY DEPARTMENT: MR; Exam(s) Completed: Spine: Cervical spine and Thoracic spine SIGNATURE: RT Jeffrey(Shelby) PATIENT NAME: Natalie Jaquez DATE: July 18, 2024 TIME: 1:47 PM [facility] 07-08-2024 History of Presen t illness [...] Date Noted Acne vulgaris 03/28/2023 Adrenogenital disorder ([facility]) 04/12/2005 Anemia 01/13/2015 Chronic bilateral low back pain with bilateral sciatica 07/08/2014 Bipolar 1 disorder, depressed, mild ([facility]) 03/28/2023 Multiple sclerosis ([facility]) 04/24/2014 JEFF (generalized anxiety disorder) ([facility]) 03/28/2023 History of PCOS 10/05/2015 Adult hypothyroidism ([facility]) 03/28/2023 Iron deficiency anemia 01/15/2015 Irritable bowel syndrome 03/28/2023 Migraine without aura and without status migrainosus, not intractable ([facility]) 08/16/2015 Vitamin D deficiency 03/28/2023 Class 3 severe obesity due to excess calories without serious comorbidity with body mass index (BMI) of 40.0 to 44.9 in adult ([facility]) 09/18/2023 PCOS (polycystic ovarian syndrome) 09/18/2023 Insulin resistance 09/18/2023 Encounter for long-term (current) use of medications 09/18/2023 Encounter for weight management 07/08/2024 Resolved Ambulatory Problems Diagnosis Date Noted Bladder dysfunction 07/08/2014 Change in bowel habits 03/28/2023 Demyelinating changes in brain ([facility]) 12/01/2013 Exercise induced bronchospasm ([facility]) 02/08/2012 Frequent UTI 08/11/2015 Headache 01/20/2015 Memory disorder 08/11/2015 BMI 38.0-38.9,adult 03/28/2023 Proteinuria 03/28/2023 Acute non-recurrent pansinusitis 09/18/2023 Past Medical History: Diagnosis Date Bipolar affective disorder, currently depressed, mild (CMS/HCC) Chronic migraine without aura without status migrainosus, not intractable (CMS/HCC) Ear problems September 2022 Fatigue Gastritis Hypothyroid (CMS/HCC) Irritable bowel syndrome with both constipation and diarrhea MS (multiple sclerosis) ([facility]) Pneumonia, bacterial Polycystic ovarian disease HISTORY PAST MEDICAL HISTORY SOCIAL HISTORY Past Medical History: Diagnosis Date Acne vulgaris Anemia Bipolar affective disorder, currently depressed, mild (CMS/HCC) BMI 38.0-38.9,adult 03/28/2023 Chronic migraine without aura without status migrainosus, not intractable (CMS/HCC) Ear problems September 2022 Fatigue JEFF (generalized anxiety disorder) ([facility]) Gastritis Hypothyroid ([facility]) Insulin resistance Iron deficiency anemia Irritable bowel syndrome with both constipation and diarrhea MS (multiple sclerosis) (CMS/[facility]) PCOS (polycystic ovarian syndrome) Pneumonia, [...] disease Mother Cintia Jaquez Diabetes Father Blake Dayaravahid Cancer Maternal Grandmother Andreina Little COPD Maternal [...] of: LEONIE Ca documented in this encounter [facility] 06-24-2024 History of Presen t illness Narrative Associated Problem(s): Multiple sclerosis (CMS/HCC) No change and follow up with neurology. Associated Problem(s): Irritable bowel syndrome Symptoms worse and developed incontinence. Refer to GI. Associated Problem(s): JEFF (generalized anxiety disorder) (CMS/HCC) Occasional symptoms but tolerable with medication and continue. Associated Problem(s): Class 3 severe obesity due to excess calories without serious comorbidity with body mass index (BMI) of 40.0 to 44.9 in adult ([facility]) Patient overweight and difficult time [...] Associated Problem(s): Bipolar 1 disorder, depressed, mild ([facility]) Occasional symptoms but tolerable with [...] medications as prescribed. documented in this encounter [facility] 06-10-2024 History of Presen t illness Narrative Reason for Appointment: Patient ID: Natalie Jaquez is a 28 y.o. female who presents for Infertility Patient presents today for Consult appointment. MEDICATIONS Current Outpatient Medications Medication Instructions amphetamine-dextroamphetamine (Adderall) 30 MG tablet 30 mg, Oral, 2 times daily ARIPiprazole (ABILIFY) 15 mg, Oral, Daily cholecalciferol (Vitamin D-3) 50 MCG (2000 UT) tablet 1 tablet, Every 24 hours [...] Date Noted Acne vulgaris 03/28/2023 Adrenogenital disorder ([facility]) 04/12/2005 Anemia 01/13/2015 Chronic bilateral low back pain with bilateral sciatica 07/08/2014 Bipolar 1 disorder, depressed, mild ([facility]) 03/28/2023 Multiple sclerosis ([facility]) 04/24/2014 JEFF (generalized anxiety disorder) ([facility]) 03/28/2023 History of PCOS 10/05/2015 Adult hypothyroidism ([facility]) 03/28/2023 Iron deficiency anemia 01/15/2015 Irritable bowel syndrome 03/28/2023 Migraine without aura and without status migrainosus, not intractable ([facility]) 08/16/2015 Vitamin D deficiency 03/28/2023 Morbid obesity due to excess calories ([facility]) 09/18/2023 PCOS (polycystic ovarian syndrome) 09/18/2023 Insulin resistance 09/18/2023 Encounter for long-term (current) use of medications 09/18/2023 Resolved Ambulatory Problems Diagnosis Date Noted Bladder dysfunction 07/08/2014 Change in bowel habits 03/28/2023 Demyelinating changes in brain ([facility]) 12/01/2013 Exercise induced bronchospasm ([facility]) 02/08/2012 Frequent UTI 08/11/2015 Headache 01/20/2015 Memory disorder 08/11/2015 BMI 38.0-38.9,adult 03/28/2023 Proteinuria 03/28/2023 Acute non-recurrent pansinusitis 09/18/2023 Past Medical History: Diagnosis Date Bipolar affective disorder, currently depressed, mild (CMS/HCC) Chronic migraine without aura without status migrainosus, not intractable (CMS/HCC) Ear problems September 2022 Fatigue Gastritis Hypothyroid (CMS/HCC) Irritable bowel syndrome with both constipation and diarrhea MS (multiple sclerosis) (CMS/HCC) Pneumonia, bacterial Polycystic ovarian disease HISTORY PAST MEDICAL HISTORY SOCIAL HISTORY Past Medical History: Diagnosis Date Acne vulgaris Anemia Bipolar affective disorder, currently depressed, mild (CMS/HCC) BMI 38.0-38.9,adult 03/28/2023 Chronic migraine without aura without status migrainosus, not intractable (CMS/HCC) Ear problems September 2022 Fatigue JEFF (generalized [...] disease Mother Cintia Jaquez Diabetes Father Blake Dayaravahid Cancer Maternal Grandmother Andreina Little COPD Maternal [...] nursing note reviewed. Exam conducted with a wildlife conservationist present. Vitals: Estimated body mass index is 44.03 kg/m as calculated from the following: Height as of 24: 5' 6 . Weight as of this [...] request Compounded Wt management be sent to [facility]. Patient has voiced understanding and will call our office for any further questions/concerns. Follow Up: Patient to return to clinic when ready to discuss conceiving. Documented by Mone Dubon LPN on behalf of: Casey Rae DO documented in this encounter [facility] 06-05-2024 History of Presen t illness [...] Date Noted Acne vulgaris 03/28/2023 Adrenogenital disorder ([facility]) 04/12/2005 Anemia 01/13/2015 Chronic bilateral low back pain with bilateral sciatica 07/08/2014 Bipolar 1 disorder, depressed, mild ([facility]) 03/28/2023 Multiple sclerosis ([facility] [facility] 04/24/2014 JEFF (generalized anxiety disorder) ([facility]) 03/28/2023 History of PCOS 10/05/2015 Adult hypothyroidism ([facility]) 03/28/2023 Iron deficiency anemia 01/15/2015 Irritable bowel syndrome 03/28/2023 Migraine without aura and without status migrainosus, not intractable ([facility] 08/16/2015 Vitamin D deficiency 03/28/2023 Morbid obesity due to excess calories ([facility] 09/18/2023 PCOS (polycystic ovarian syndrome) 09/18/2023 Insulin resistance 09/18/2023 Encounter for long-term (current) use of medications 09/18/2023 Resolved Ambulatory Problems Diagnosis Date Noted Bladder dysfunction 07/08/2014 Change in bowel habits 03/28/2023 Demyelinating changes in brain ([facility]) 12/01/2013 Exercise induced bronchospasm ([facility]) 02/08/2012 Frequent UTI 08/11/2015 Headache 01/20/2015 Memory disorder 08/11/2015 BMI 38.0-38.9,adult 03/28/2023 Proteinuria 03/28/2023 Acute non-recurrent pansinusitis 09/18/2023 Past Medical History: Diagnosis Date Bipolar affective disorder, currently depressed, mild ([facility]) Chronic migraine without aura without status migrainosus, not intractable ([facility]) Ear problems September 2022 Fatigue Gastritis Hypothyroid ([facility] Irritable bowel syndrome with both constipation and diarrhea MS (multiple sclerosis) ([facility]) Pneumonia, bacterial Polycystic ovarian disease [...] tablet 3 cholecalciferol (Vitamin D-3) 50 MCG (2000 UT) tablet Take 1 tablet by mouth [...] ears using binocular microscopy under micro with oreceps Assessment/Plan Diagnoses and all orders for this visit: Chronic mastoiditis, left Other specified hearing loss of left ear, unspecified hearing status on contralateral side Bilateral impacted cerumen Pt reassured mastoid fluid normal for many months after OM Audio to eval apparent HL Joey ears debrided documented in this encounter [facility] 04-25-2024 Telephone encounter Note Summary: appointment lvm for patient to call so we can get er scheduled fora follow up in jul with dr barclay [facility] 04-25-2024 Miscellaneous Notes Summary: appointment lvm for patient to call so we can get er scheduled fora follow up in jul with dr barclay documented in this encounter [facility] 04-24-2024 Note HNO ID: [id number] Author: AUTUMN BARCLAY MD Service: ? Author Type: Physician Type: Progress Notes Filed: 04/24/2024 17:06 Note Text: [facility] FOLLOWUP/ESTABLISHED PATIENT VISIT, Virtual PRINCIPAL [...] fumarate 2013 unknown new relapses/MRI changes/breakthrough ocrelizumab 2018 5 11/14/2023 Most recent MRI brain Number of new [...] shaving in the shower just seen by FINISHING INSPECTOR- reports ovarian cyst BM each morning after [...] stretched as a teen In ER 10/27/23 -[facility] Mood: Not bad Spasticity: See HPI Bladder: [...] in Neurology Office Visit from 08/29/2023 in [facility] Office Visit from 09/02/2022 in [facility] Upper Extremity Domain T Score 38 34.21 [...] in Neurology Office Visit from 08/29/2023 in [facility] Office Visit from 09/02/2022 in [facility] Sleep Domain T Score 61 58.92 60 [...] Flowsheet Row Office Visit from 08/29/2023 in [facility] Office Visit from 12/04/2020 in [facility] Office Visit from 10/05/2017 in [facility] Processing Speed Total Number Correct 61 59 [...] of consciousness, orientation, (more content not included)... [facility] 04-24-2024 History of Presen t illness Narrative Images from the original note were not included. [facility] FOLLOWUP/ESTABLISHED PATIENT VISIT, Virtual PRINCIPAL [...] fumarate 2013 unknown new relapses/MRI changes/breakthrough ocrelizumab 11/13/2024 Most recent MRI brain Number of new [...] shaving in the shower just seen by FINISHING INSPECTOR- reports ovarian cyst BM each morning after [...] stretched as a teen In ER 10/27/23 -[facility] Mood: Not bad Spasticity: See HPI Bladder: [...] in Neurology Office Visit from 08/29/2023 in [facility] Office Visit from 09/02/2022 in [facility] Upper Extremity Domain T Score 38 34.21 [...] in Neurology Office Visit from 08/29/2023 in [facility] Office Visit from 09/02/2022 in [facility] Sleep Domain T Score 61 58.92 60 [...] LMP 08/29/2023 (Exact Date) MSPT Results Flowsheet [facility] Office Visit from 08/29/2023 in [facility] Office Visit from 12/04/2020 in [facility] Office Visit from 10/05/2017 in [facility] Processing Speed Total Number Correct 61 59 [...] reach out to her local GI doc, Ocrevus- rare SE of collagenous colitis bladder urgency - oxybutynin 10 mg XL po qd Ecoach, healthy nutrition ER for worsening PT ordered for pelvic floor, she declined states she is too busy PLAN: -- Appointment on 04/24/24 MRI CERVICAL SPINE WO/W IVCON MRI THORACIC SPINE WO/W IVCON CONSULT TO PHYSICAL THERAPY CONSULT TO ECOACHING WELLNESS CONSULT TO NUTRITION WELLNESS [place] FOLLOW UP The chart was reviewed for possible participation in the following studies:None Patient Health Education Discussed at Visit: Aerobic exercise, Emotional Health/Wellness, Healthy Weight, and Need for PCP Follow-up: In 6 months at [place] with [facility] I spent a total of 30 minutes on the date of the service which included preparing to see the patient, iijp-by-kzok patient care, completing clinical documentation, and obtaining and/or reviewing separately obtained history. I have communicated my name and active licensure. The patient's identity and physical location were verified at the time of this visit. Either the patient or their legal field representative has been informed of the risks and benefits of -- and alternatives to -- treatment through a remote evaluation and consents to proceed with the evaluation remotely. Autumn Barclay MD [facility] documented in this encounter [facility] 03-18-2024 History of Presen t illness [...] Date Noted Acne vulgaris 03/28/2023 Adrenogenital disorder ([facility]) 04/12/2005 Anemia 01/13/2015 Chronic bilateral low back pain with bilateral sciatica 07/08/2014 Bipolar 1 disorder, depressed, mild ([facility] 03/28/2023 Multiple sclerosis ([facility] 04/24/2014 JEFF (generalized anxiety disorder) ([facility] 03/28/2023 History of PCOS 10/05/2015 Adult hypothyroidism ([facility] 03/28/2023 Iron deficiency anemia 01/15/2015 Irritable bowel syndrome 03/28/2023 Migraine without aura and without status migrainosus, not intractable ([facility] 08/16/2015 Vitamin D deficiency 03/28/2023 Morbid obesity due to excess calories ([facility] 09/18/2023 PCOS (polycystic ovarian syndrome) 09/18/2023 Insulin resistance 09/18/2023 Encounter for long-term (current) use of medications 09/18/2023 Resolved Ambulatory Problems Diagnosis Date Noted Bladder dysfunction 07/08/2014 Change in bowel habits 03/28/2023 Demyelinating changes in brain ([facility]) 12/01/2013 Exercise induced bronchospasm ([facility]) 02/08/2012 Frequent UTI 08/11/2015 Headache 01/20/2015 Memory disorder 08/11/2015 BMI 38.0-38.9,adult 03/28/2023 Proteinuria 03/28/2023 Acute non-recurrent pansinusitis 09/18/2023 Past Medical History: Diagnosis Date Bipolar affective disorder, currently depressed, mild ([facility]) Chronic migraine without aura without status migrainosus, not intractable ([facility]) Ear problems September 2022 Fatigue Gastritis Hypothyroid ([facility] Irritable bowel syndrome with both constipation and diarrhea MS (multiple sclerosis) ([facility]) Pneumonia, bacterial Polycystic ovarian disease HISTORY PAST MEDICAL HISTORY SOCIAL HISTORY Past Medical History: Diagnosis Date Acne vulgaris Anemia Bipolar affective disorder, currently depressed, mild ([facility] BMI 38.0-38.9,adult 03/28/2023 Chronic migraine without aura without status migrainosus, not intractable ([facility] Ear problems September 2022 Fatigue JEFF (generalized [...] disease Mother Cintia Jaquez Diabetes Father Blake Dayaravahid Cancer Maternal Grandmother Andreina Little COPD Maternal [...] nursing note reviewed. Exam conducted with a wildlife conservationist present. Vitals: Estimated body mass index is [...] of: LEONIE Ca documented in this encounter [facility] 03-18-2024 History of Presen t illness [...] use OTC PRN. documented in this encounter [facility] 02-19-2024 Note HNO ID: [id number] Author: MARIELLE GANNON APRN.LOAN SUPERVISOR Service: ? Author Type: Nurse Practitioner Type: [...] visit. Either the patient or their legal field representative has been informed of the risks [...] 500 mg table (more content not included)... [facility] 02-19-2024 History of Presen t illness [...] visit. Either the patient or their legal field representative has been informed of the risks [...] or recent MRSA infections. OBJECTIVE: PHYSICAL EXAM [facility] 08/29/2023 (Exact Date) GENERAL APPEARANCE: overweight/obese SKIN: Head, neck, trunk, and extremities dry, intact and without lesions LUNGS: even and non-labored breathing, normal chest excursion NEURO/PSYCH: oriented to time, place, and person, speech normal, mental status intact Neuro Tests: None Data Review: [facility] records independently reviewed MRI Lumbar 11/14/23: Discogenic [...] which included preparing to see the patient, anmk-af-xmze patient care, completing clinical documentation, obtaining and/or reviewing separately obtained history, and counseling and educating the patient/family/caregiver. documented in this encounter [facility] 12-29-2023 Note HNO ID: [id number] Author: MARIELLE GANNON APRN.VEENA Service: ? Author [...] MOUTH EVERY DAY (more content not included)... [facility] 12-29-2023 History of Presen t illness [...] TIME: 1:37 PM documented in this encounter [facility] 11-14-2023 History of Presen t illness [...] TIME: 1:21 PM documented in this encounter [facility] 11-14-2023 Note HNO ID: [id number] Author: DENISE RENO RN Service: Radiology Author [...] SIGNATURE: Denise Reno RN PATIENT NAME: Natalie Grajeda Commarato DATE: November 14, 2023 TIME: 1:21 PM [facility] 10-31-2023 Miscellaneous Notes Noted patient's reply, routing to Yoly Miller CNP to update. Brandy Pascal RN documented in this encounter [facility] 08-29-2023 Note HNO ID: [id number] Author: YOLY MILLER APRN.VEENA Service: ? Author Type: Nurse Practitioner Type: Progress Notes Filed: 08/29/2023 09:49 Note Text: [facility] FOLLOWUP/ESTABLISHED PATIENT VISIT PRINCIPAL NEUROLOGIC [...] team: Rd The patient was last seen 09/02/22, currently [...] 2022. Is still pursuing disability- has an attorney lawyer. Reports BLE spasms. Is taking Baclofen 10mg QHS. Does endorse adequate water intake. Mood: Not bad Spasticity: See HPI Bladder: urgency, incontinence- more at night. Wears pad Bowel: Normal Pain related to today's visit:reviewed on nursing intake documentation Fatigue: Tolerable Sleep: Ok, naps occasionally Memory/Concentration: Losing train of thought Neuro-QoL Functions (higher=better functioning) Flowsheet Row Office Visit from 09/02/2022 in [facility] Appointment from 01/31/2022 in [facility] from 08/03/2021 in [facility] Upper Extremity Domain T Score 39 57 [...] Flowsheet Row Office Visit from 09/02/2022 in [facility] Appointment from 01/31/2022 in [facility] from 08/03/2021 in [facility] Sleep Domain T Score 60 59 61 [...] Flowsheet Row Office Visit from 12/04/2020 in [facility] Office Visit from 10/05/2017 in [facility] Processing Speed Total Number Correct 59 70 [...] ROMAN Facial s (more content not included)... [facility] 08-29-2023 History of Presen t illness Narrative Images from the original note were not included. [facility] FOLLOWUP/ESTABLISHED PATIENT VISIT PRINCIPAL NEUROLOGIC [...] 2022. Is still pursuing disability- has an attorney lawyer. Reports BLE spasms. Is taking Baclofen 10mg QHS. Does endorse adequate water intake. Mood: Not bad Spasticity: See HPI Bladder: urgency, incontinence- more at night. Wears pad Bowel: Normal Pain related to today's visit:reviewed on nursing intake documentation Fatigue: Tolerable Sleep: Ok, naps occasionally Memory/Concentration: Losing train of thought Neuro-QoL Functions (higher=better functioning) Flowsheet Row Office Visit from 09/02/2022 in [facility] Appointment from 01/31/2022 in [facility] from 08/03/2021 in [facility] Upper Extremity Domain T Score 39 57 [...] Flowsheet Row Office Visit from 09/02/2022 in [facility] Appointment from 01/31/2022 in [facility] from 08/03/2021 in [facility] Sleep Domain T Score 60 59 61 [...] ferrous sulfate, norgestimate-ethinyl estradiol, and levothyroxine. EXAM: [facility] 09/02/2022 (Exact Date) Multiple Sclerosis Performance Test Flowsheet Row Office Visit from 12/04/2020 in [facility] Office Visit from 10/05/2017 in [facility] Processing Speed Total Number Correct 59 70 [...] 5 Biceps 5 5 Triceps 5 5 Washing Machine Loader 5 5- Dorsal interossei 5 5- Lower [...] D supplementation Follow-up: In 1 year at [facility] I spent a total of 35 minutes on the date of the service which included preparing to see the patient, aljr-fs-bhli patient care, completing clinical documentation, obtaining and/or reviewing separately obtained history, performing a medically appropriate examination, counseling and educating the patient/family/caregiver, and ordering medications, tests, or procedures. Yoly Miller APRN.[facility] Multiple Sclerosis documented in this encounter [facility] 04-08-2023 Evaluation note Encounter Date Diagnosis [...] Acute bronchitis home care material was printed [facility] 07-08-2023 Evaluation note* Encounter Date Diagnosis [...] no improvement in 2 to 3 days [facility] 07-03-2023 History of Present illness Narrative* Yusuf Alfaro RT(R) - 01/23/2023 2:30 PM EDT Radiology Service [...] 2023 TIME: 2:48 PM [facility]* Encounter Date Diagnosis Assessment [...] for fever/discomfort, cool mist humidifier. May use [place] as needed for cough, do not take any other OTCs while using [place]. Patient to follow up with PCP in 2-3 days. Immediate eval if SOB, difficulty breathing, chest pain, dizziness, or other concerning symptoms. Patient verbalizes understanding and is agreeable to treatment plan. [facility] 02-20-2023 History of Present illness Narrative* Sammie Galindo Research Coordinator - 09/12/2022 3:18 PM EST Retroactive MS SmartForm Completion -Sammie Galindo Research Coordinator [facility] Instructions* Patient Instructions* Yoly Miller APRN.LOAN SUPERVISOR - 09/02/2022 2:58 PM EST -Can consider Provigil or Nuvigil for MS fatigue [facility] History of Present illness Narrative* Yoly Miller APRN.CNP - 09/02/2022 2:29 PM EST Images from the original note were not included. [facility] FOLLOWUP/ESTABLISHED PATIENT VISIT PRINCIPAL NEUROLOGIC [...] taking care of mom 13/02, does have MANAGER OF LEARNING coming in several days per week to [...] Flowsheet Row Office Visit from 09/02/2022 in [facility] Appointment from 01/31/2022 in [facility] from 08/03/2021 in [facility] Upper Extremity Domain T Score 39 57 [...] Flowsheet Row Office Visit from 09/02/2022 in [facility] Appointment from 01/31/2022 in [facility] from 08/03/2021 in [facility] Sleep Domain T Score 60 59 61 [...] ferrous sulfate, norgestimate-ethinyl estradiol, and levothyroxine. EXAM: [facility] 08/22/2015 Multiple Sclerosis Performance Test Flowsheet Row Office Visit from 12/04/2020 in [facility] Office Visit from 10/05/2017 in [facility] Processing Speed Total Number Correct 59 70 [...] 5 Biceps 5 5 Triceps 5 5 Washing Machine Loader 5 5 Dorsal interossei 5 5 Lower [...] of MS symptoms. Discussed asking SW with MANAGER OF LEARNING, whatother resources she and her mom would [...] D supplementation Follow-up: In 1 year at [place] with [facility] I spent a total of 40 minutes on the date of the service which included preparing to see the patient, hxgy-ck-stzw patient care, completing clinical documentation, obtaining and/or reviewing separately obtained history, performing a medically appropriate examination, counseling and educating the pat ient/family/caregiver, and ordering medications, tests, or procedures. Yoly Miller APRN.CNP [facility] Evaluation note* Encounter Date Diagnosis Assessment [...] days. Jul, Sore throat (ICD-10 - J02.9) [facility] 11-30-2022 NoteOPERATIVE NOTE OPERATION DATE: 06/22/2022 [...] at age 47. CC: Jayme Schmidt M.D.[facility] [id number] NoteChief Complaint consultation for abdominal pain, bowel [...] HospitalComment on above:Result Comment: Electronically Signed By: Yusuf CASTRO MD\Date and Time Signed: 05/24/22 15:03 [id number] History of Present illness Narrative* TY ZamoraR) - 2021 11:00 AM EDT Radiology Service [...] 2021 TIME: 11:08 AM documented in [facility] encounterWay[facility]-13-2022 NotePatient Education Materials Name: Barbchapinvahid Natalie Grajeda Current Date: 08/05/2021 15:19:24 [place] : 1995 [facility]: [id number] The following sheet(s) are the Patient Education [...] bandana, T- shirt, or other cloth. The [facility] has instructions on how to make a [...] caffeine, juices, tea, and soup. ? Taking uafo-gdu-qsmemoi (OTC) pain medicine. These are used to [...] ? Wear protective clot (more content not included)...[facility]01-13-2022 NoteThis is a Telephone Appointment [...] or wheezing. She has been taken Tylenol soiw-ymo-qcljvny for symptom management. Review of Systems Constitutional: [...] infection Continue to treat your symptoms with bewk-xbl-niyhlhw medication. Drink plenty of fluids and take [...] to 2 mg at night Vitamin D3 [id number] u/day Optional: Famotidine 20-40 mg/day (for reflux/stomach [...] 08/05/2021 14:53 EST Electronically signed by Lakeisha Paulinozabeth 08/05/21 15:12 [facility]08-20-2021 NotePatient Education Materials Name: Natalie Jaquez Current Date: 03/12/2021 16:03:51 [place] : 1995 The following sheet(s) are [...] secretions in the nose and lungs. ? Klrz-bei-adqupgh cold medicines will not shorten the length of time you?re sick, but they may be helpful for the following symptoms: cough, sore throat, and nasal and sinus congestion. If you take prescription medicines, ask your healthcare provider or pharmacist which kbxl-ecj-xrkslte medicines are safe to use. (Note: Don't [...] goes along with a muffled voice ? [id number] [employer]. [address] [place] [address]. All rights reserved. This information is not intended as a substitute for professional medical care. Always follow your healthcare professional's instructions.[facility]08-20-2021 NoteProcedure: Upright PA and lateral [...] Is Signed, Electronically Signed in Other Vendor System)[facility]08-02-2021 NotePatient Education Materials Name: Natalie Jaquez Current Date: 02/22/2021 17:09:41 [place] : 1995 The following sheet(s) are [...] taking part in activities with lots of jitd-ur-pxac contact can also put you at risk. [...] or as directed by your provider ? [id number] [employer]. [address] [place] [address]. All rights reserved. This information is not [...] 30 g, 0 Refill(s), 03/08/21 17:05:00 EDT,Pharmacy: [facility]/pharmacy #[id number] Evaluation + Plan note No data available for this section General Surgery Annmarie Evaluation note* Diagnosis Multiple sclerosis (HCC)- Primary Multiple sclerosis [facility]* Diagnosis Multiple sclerosis (HCC) Multiple sclerosis Encounter for long-term (current) use of medications Encounter for long-term (current) use of other medications [facility]* Diagnosis Multiple sclerosis (HCC)- Primary Multiple sclerosis [facility]* Diagnosis Multiple sclerosis (HCC)- Primary Multiple sclerosis Encounter for long-term (current) use of medications Encounter for long-term (current) use of other medications [facility]* Diagnosis Multiple sclerosis (HCC)- Primary Multiple sclerosis [facility]* Diagnosis Multiple sclerosis (HCC) Multiple sclerosis Encounter for long-term (current) use of medications Encounter for long-term (current) use of other medications [facility] Diagnosis Spinal stenosis of lumbar region without neurogenic claudication- Primary Spinal stenosis, lumbar region, without neurogenic claudication Multiple sclerosis (HCC) Multiple sclerosis [facility]* Diagnosis Multiple sclerosis (HCC) Multiple sclerosis [facility] Diagnosis Spinal stenosis of lumbar region without neurogenic claudication Spinal stenosis, lumbar region, without neurogenic claudication [facility]* Diagnosis Onset Date Resolution Status Bronchitis noneactive [facility] Work Phone: Evaluation note* Diagnosis Onset Date Resolution Status Bronchitis noneactive Bronchitis acute [facility] Work Phone: Evaluation note* Diagnosis Radiculopathy, lumbar region- Primary Thoracic or lumbosacral neuritis or radiculitis, unspecified Spinal stenosis, lumbar region, without neurogenic claudication Lumbar spondylosis Lumbosacral spondylosis without myelopathy Multiple sclerosis (HCC) Multiple sclerosis [facility] Diagnosis Multiple sclerosis (HCC)- Primary Multiple sclerosis [facility]* Diagnosis Radiculopathy, lumbar region- Primary Thoracic or lumbosacral neuritis or radiculitis, unspecified Lumbar spondylosis Lumbosacral spondylosis without myelopathy [facility]* Diagnosis Chronic fatigue syndrome- Primary Multiple sclerosis (HCC) Multiple sclerosis [facility] Diagnosis Bipolar 1 disorder, depressed, mild ([facility]/HCC)- Primary JEFF (generalized anxiety disorder) ([facility]) Generalized anxiety disorder Multiple sclerosis ([facility]/HCC) Multiple sclerosis Irritable bowel syndrome with both constipation and diarrhea Insulin resistance Other abnormal glucose Vitamin D deficiency Adult hypothyroidism ([facility]) Unspecified hypothyroidism Encounter for long-term (current) use of medications Encounter for long-term (current) use of other medications Iron deficiency anemia, unspecified iron deficiency anemia type Migraine without aura and without status migrainosus, not intractable ([facility]) Acute non-recurrent pansinusitis Morbid obesity due to excess calories ([facility]) Body mass index [BMI] 40.0-44.9, adult (Z68.41) PCOS (polycystic ovarian syndrome) Polycystic ovaries Bipolar 1 disorder, depressed, mild (CMS/HCC)- Primary JEFF (generalized anxiety disorder) (CMS/HCC) Generalized anxiety disorder Migraine without aura and without status migrainosus, not intractable (CMS/HCC) Multiple sclerosis (CMS/HCC) Multiple sclerosis Irritable bowel syndrome with both constipation and diarrhea Multiple sclerosis (CMS/HCC) Multiple sclerosis documented in this encounter [facility]* Diagnosis Bipolar 1 disorder, depressed, [...] syndrome) Polycystic ovaries documented in this encounter [facility]* Diagnosis Bipolar 1 disorder, depressed, [...] mild (CMS/HCC)- Primary JEFF (generalized anxiety disorder) ([facility]) Generalized anxiety disorder Migraine without aura and without status migrainosus, not intractable ([facility]) Multiple sclerosis ([facility]) Multiple sclerosis Irritable bowel syndrome with both constipation and diarrhea Chronic mastoiditis, left- Primary Other specified hearing loss of left ear, unspecified hearing status on contralateral side Bilateral impacted cerumen Impacted cerumen documented in this encounter [facility]* Diagnosis Bipolar 1 disorder, depressed, mild ([facility])- Primary JEFF (generalized anxiety disorder) ([facility]) Generalized anxiety disorder Multiple sclerosis ([facility]) Multiple sclerosis Irritable bowel syndrome with both constipation and diarrhea Insulin resistance Other abnormal glucose Vitamin D deficiency Adult hypothyroidism ([facility]) Unspecified hypothyroidism Encounter for long-term (current) use of medications Encounter for long-term (current) use of other medications Iron deficiency anemia, unspecified iron deficiency anemia type Migraine without aura and without status migrainosus, not intractable ([facility]) Acute non-recurrent pansinusitis Morbid obesity due to excess calories ([facility]) Body mass index [BMI] 40.0-44.9, adult (Z68.41) PCOS (polycystic ovarian syndrome) Polycystic ovaries Bipolar 1 disorder, depressed, mild ([facility])- Primary JEFF (generalized anxiety disorder) ([facility]) Generalized anxiety disorder Migraine without aura and without status migrainosus, not intractable ([facility]) Multiple sclerosis ([facility]) Multiple sclerosis Irritable bowel syndrome with both constipation and diarrhea Bipolar 1 disorder, depressed, mild ([facility])- Primary JEFF (generalized anxiety disorder) ([facility]) Generalized anxiety disorder Multiple sclerosis ([facility]) Multiple sclerosis Irritable bowel syndrome with diarrhea Irritable bowel syndrome Class 3 severe obesity due to excess calories without serious comorbidity with body mass index (BMI) of 40.0 to 44.9 in adult ([facility]) documented in this encounter [facility]Evaluation [facility]* Diagnosis Bipolar 1 disorder, depressed, mild ([facility])- Primary JEFF (generalized anxiety disorder) ([facility]) Generalized anxiety disorder Multiple sclerosis ([facility]) Multiple sclerosis Irritable bowel syndrome with both constipation and diarrhea Insulin resistance Other abnormal glucose Vitamin D deficiency Adult hypothyroidism ([facility]) Unspecified hypothyroidism Encounter for long-term [...] weight management documented in [facility] encounter [facility]* Diagnosis Multiple sclerosis (CMS/HCC) Multiple sclerosis documented in this encounter [facility]* Diagnosis Bipolar 1 disorder, depressed, mild (CMS/HCC)- Primary JEFF (generalized anxiety disorder) (CMS/HCC) Generalized anxiety disorder Migraine without aura and without status migrainosus, not intractable (CMS/HCC) Multiple sclerosis (CMS/HCC) Multiple sclerosis Irritable bowel syndrome with both constipation and diarrhea documented in this encounter [facility] note* Diagnosis Well woman exam with routine gynecological exam Routine gynecological examination PCOS (polycystic ovarian syndrome) Polycystic ovaries [facility]* Diagnosis Multiple sclerosis (CMS/HCC) Multiple sclerosis [facility]* Diagnosis Multiple sclerosis (HCC)- Primary Multiple sclerosis [facility] ([facility]) [facility] Diagnosis Relapsing remitting multiple sclerosis (HCC)- Primary Multiple sclerosis [facility] Diagnosis Bipolar 1 disorder, depressed, mild (CMS/HCC)- Primary JEFF (generalized anxiety disorder) (CMS/HCC) Generalized anxiety disorder Multiple sclerosis (CMS/HCC) Multiple sclerosis Irritable bowel syndrome with both constipation and diarrhea Insulin resistance Other abnormal glucose Vitamin D deficiency Adult hypothyroidism ([facility]) Unspecified hypothyroidism Encounter for long-term (current) use of medications Encounter for long-term (current) use of other medications Iron deficiency anemia, unspecified iron deficiency anemia type Migraine without aura and without status migrainosus, not intractable ([facility]/HCC) Acute non-recurrent pansinusitis Morbid obesity due to excess calories ([facility]) Body mass index [BMI] 40.0-44.9, adult (Z68.41) PCOS (polycystic ovarian syndrome) Polycystic ovaries Bipolar 1 disorder, depressed, mild ([facility])- Primary JEFF (generalized anxiety disorder) ([facility]) Generalized anxiety disorder Migraine without aura and without status migrainosus, not intractable ([facility]) Multiple sclerosis ([facility]) Multiple sclerosis Irritable bowel syndrome with both constipation and diarrhea Bipolar 1 disorder, depressed, mild ([facility])- Primary JEFF (generalized anxiety disorder) ([facility]) Generalized anxiety disorder Multiple sclerosis ([facility]) Multiple sclerosis Irritable bowel syndrome with diarrhea Irritable bowel syndrome Class 3 severe obesity due to excess calories without serious comorbidity with body mass index (BMI) of 40.0 to 44.9 in adult ([facility]) Bipolar 1 disorder, depressed, mild ([facility])- Primary JEFF (generalized anxiety disorder) ([facility]) Generalized anxiety disorder Multiple sclerosis ([facility]) Multiple sclerosis Tinea pedis, unspecified laterality Class 3 severe obesity due to excess calories without serious comorbidity with body mass index (BMI) of 40.0 to 44.9 in adult ([facility]) documented in this encounter [facility]* Diagnosis Bipolar 1 disorder, depressed, mild ([facility])- Primary JEFF (generalized anxiety disorder) ([facility]) Generalized anxiety disorder Multiple sclerosis ([facility]) Multiple sclerosis Irritable bowel syndrome with both constipation and diarrhea Insulin resistance Other abnormal glucose Vitamin D deficiency Adult hypothyroidism ([facility]) Unspecified hypothyroidism Encounter for long-term (current) use of medications Encounter for long-term (current) use of other medications Iron deficiency anemia, unspecified iron deficiency anemia type Migraine without aura and without status migrainosus, not intractable ([facility]) Acute non-recurrent pansinusitis Morbid obesity due to excess calories ([facility]) Body mass index [BMI] 40.0-44.9, adult (Z68.41) PCOS (polycystic ovarian syndrome) Polycystic ovaries Bipolar 1 disorder, depressed, mild (CMS/HCC)- Primary JEFF (generalized anxiety disorder) ([facility]/HCC) Generalized anxiety disorder Migraine without aura and without status migrainosus, not intractable (CMS/HCC) Multiple sclerosis ([facility]/HCC) Multiple sclerosis Irritable bowel syndrome with both constipation and diarrhea Bipolar 1 disorder, depressed, mild (CMS/HCC)- Primary JEFF (generalized anxiety disorder) ([facility]/HCC) Generalized anxiety disorder Multiple sclerosis (CMS/HCC) Multiple sclerosis Irritable bowel syndrome with diarrhea Irritable bowel syndrome Class 3 severe obesity due to excess calories without serious comorbidity with body mass index (BMI) of 40.0 to 44.9 in adult ([facility]) Bipolar 1 disorder, depressed, mild ([facility]/HCC)- Primary JEFF (generalized anxiety disorder) ([facility]/HCC) Generalized anxiety disorder Multiple sclerosis ([facility]/HCC) Multiple sclerosis Tinea pedis, unspecified laterality Class 3 severe obesity due to excess calories without serious comorbidity with body mass index (BMI) of 40.0 to 44.9 in adult ([facility]) Weight gain Other symptoms concerning nutrition, metabolism, and development Encounter for weight management documented [facility] encounter [facility]* Diagnosis Bipolar 1 disorder, depressed, mild ([facility]/HCC)- Primary JEFF (generalized anxiety disorder) ([facility]) Generalized anxiety disorder Multiple sclerosis ([facility]/HCC) Multiple sclerosis Irritable bowel syndrome with both constipation and diarrhea Insulin resistance Other abnormal glucose Vitamin D deficiency Adult hypothyroidism ([facility]) Unspecified hypothyroidism Encounter for long-term (current) use of medications Encounter for long-term (current) use of other medications Iron deficiency anemia, unspecified iron deficiency anemia type Migraine without aura and without status migrainosus, not intractable ([facility]/HCC) Acute non-recurrent pansinusitis Morbid obesity due to excess calories ([facility]) Body mass index [BMI] 40.0-44.9, adult (Z68.41) PCOS (polycystic ovarian syndrome) Polycystic ovaries Bipolar 1 disorder, depressed, mild (CMS/HCC)- Primary JEFF (generalized anxiety disorder) ([facility]/HCC) Generalized anxiety disorder Migraine without aura and without status migrainosus, not intractable (CMS/HCC) Multiple sclerosis ([facility]/HCC) Multiple sclerosis Irritable bowel syndrome with both constipation and diarrhea Bipolar 1 disorder, depressed, mild ([facility]/HCC)- Primary JEFF (generalized anxiety disorder) ([facility]/HCC) Generalized anxiety disorder Multiple sclerosis ([facility]/HCC) Multiple sclerosis Irritable bowel syndrome with diarrhea Irritable bowel syndrome Class 3 severe obesity due to excess calories without serious comorbidity with body mass index (BMI) of 40.0 to 44.9 in adult ([facility]) Bipolar 1 disorder, depressed, mild ([facility]/HCC)- Primary JEFF (generalized anxiety disorder) ([facility]) Generalized anxiety disorder Multiple sclerosis ([facility]) Multiple sclerosis Tinea pedis, unspecified laterality Class 3 severe obesity due to excess calories without serious comorbidity with body mass index (BMI) of 40.0 to 44.9 in adult ([facility]) Encounter for weight management [facility] - Reported* Type Description Date Medical History Esophageal reflux Medical History Multiple sclerosis Medical History Polycystic ovarian disease Medical History Hypothyroid Medical History depression Medical History Anxiety Surgical History tonsillectomy Surgical History cholecystectomy Hospitalization History see above Spime Other Hospital Discharge instructions No data available for this section General Surgery [facility] Progress note No data available for this section General Surgery [facility] Reason for Referral Specialty Diagnoses / Procedures Referred By Deedee edwards Referred To Contact [facility] Diagnoses Multiple sclerosis (HCC) Encounter for long-term (current) use of medications Procedures MRI BRAIN WO/W IVCON MRI BRAIN PALLAVIO Autumn Barclay MD [address] [place] [address] Mr Imaging Referral ID Status Reason Start Date Expiration Date V isits Requested Visits Authorized [id number] Closed Auto-Generate d Referral 10/25/2021 07/23/2022 1 1 Specialty Diagnoses / Procedures Referred By Deedee edwards Referred To Contact [facility] IMAGING Diagnoses Multiple sclerosis (HCC) Encounter for long-term (current) use of medications Procedures MRI CERVICAL SPINE WO/W IVCON MRI SPINAL CANAL CERVICAL W/O & W/CONTR Yoly Dueñas APRN.CNP [address] [place] [address] Mr Imaging Referral ID Status Reason Start Date Expiration Date Visits Requested Visits Authorized [id number] Pending Review Auto-Generat ed Referral 09/02/2022 10/02/2023 1 1 Specialty Diagnoses / Procedures Referred By Contac t Referred To Contact MR IMAGING Diagnoses Multiple sclerosis (HCC) Encounter for long-term (current) use of medications Procedures MRI BRAIN WO/W IVCON MRI BRAIN BRAIN STEM W/O W/CONTRAST MATERIAL Yoly Miller, TOOLROOM MACHINIST.LOAN SUPERVISOR [address] [place] [phone] Mr Imaging Referral ID Status Reason Start Date Expiration Date Visits Requested Visits Authorized [id number] Pending Review Auto-Generat ed Referral 09/02/2022 10/02/2023 1 1 Referral ID Status Reason Start Date Expiration Date V isits Requested Visits Authorized [id number] Closed Auto-Generate d Referral 01/04/2023 07/23/2023 1 1 Referral ID Status Reason Start Date Expiration Date V isits Requested Visits Authorized [id number] Closed Auto-Generate d Referral 01/04/2023 07/23/2023 1 1 Specialty Diagnoses / Procedures Referred By Contac t Referred To Contact MR IMAGING Diagnoses Spinal stenosis of lumbar region without neurogenic claudication Procedures MRI LUMBAR SPINE WO IVCON MRI SPINAL CANAL LUMBAR W/O CONTRAST MATERIAL Yoly Miller, TOOLROOM MACHINIST.LOAN SUPERVISOR [address] [place] [phone] Mr Imaging [place] [address] Referral ID Status Reason Start Date Expiration Date Visits Requested Visits Authorized [id number] Pending Review Auto-Generat ed Referral 08/29/2023 09/27/2024 1 1 Specialty Diagnoses / Procedures Referred By Contac t Referred To Contact MR IMAGING Diagnoses Multiple sclerosis (HCC) Procedures MRI BRAIN WO/W IVCON MRI BRAIN BRAIN STEM W/O W/CONTRAST MATERIAL Yoly Miller, TOOLROOM MACHINIST.LOAN SUPERVISOR [address] [place] [address] Mr Imaging [facility] Referral ID Status Reason Start Date Expiration Date V isits Requested Visits Authorized [id number] Closed Auto-Generate d Referral 11/01/2023 07/23/2024 1 1 Referral ID Status Reason Start Date Expiration Date V isits Requested Visits Authorized [id number] Closed Auto-Generate d Referral 11/01/2023 07/23/2024 1 1 Specialty Diagnoses / Procedures Referred By Contac t Referred To Contact [facility] Diagnoses Radiculopathy, lumbar region Spinal stenosis, lumbar region, without neurogenic claudication Lumbar spondylosis Procedures CONSULT TO PHYSICAL THERAPY PHYSICAL THERAPY EVALUATION HIGH COMPLEX 45 MINS Marielle Gannon, TOOLROOM MACHINIST.LOAN SUPERVISOR [address] [place] [address] [facility] [place] [address] [place] [address] Referral ID Status Reason Start Date Expiration Date Visits Requested Visits Authorized [id number] Pending Review Auto-Generat ed Referral 12/29/2023 12/28/2024 1 1 Specialty Diagnoses / Procedures Referred By Contac t Referred To Contact XR IMAGING Diagnoses Radiculopathy, lumbar region Spinal stenosis, lumbar region, without neurogenic claudication Lumbar spondylosis Procedures XR LUMBAR GENERAL 3V AP/LAT/L5-S1 RADEX SPINE LUMBOSACRAL 2/3 VIEWS Marielle Gannon, TOOLROOM MACHINIST.LOAN SUPERVISOR [address] [place] [address] Xr Imaging [facility] Referral ID Status Reason Start Date Expiration Date Visits Requested Visits Authorized [id number] Pending Review Auto-Generat ed Referral 12/29/2023 01/27/2025 1 1 Specialty Diagnoses / Procedures Referred By Contac t Referred To Contact Diagnoses Chronic fatigue syndrome Multiple sclerosis (HCC) Procedures CONSULT TO NUTRITION WELLNESS MEDICAL NUTRITION ASSMT&IVNTJ INDIV EACH 15 PR MEDICAL NUTRITION ASSMT&IVNTJ INDIV EACH 15 PR MEDICAL NUTRITION ASSMT&IVNTJ INDIV EACH 15 PR MEDICAL NUTRITION ASSMT&IVNTJ INDIV EACH 15 PR Autumn Barclay MD [address] [place] [address] Referral ID Status Reason Start Date Expiration Date Visits Requested Visits Authorized [id number] Authorized PCP Requested Referral 04/24/2024 04/24/2025 1 1 Specialty Diagnoses / Procedures Referred By Contac t Referred To Contact MR IMAGING Diagnoses Multiple sclerosis (HCC) Procedures MRI THORACIC SPINE WO/W IVCON MRI SPINAL CANAL THORACIC W/O & W/CONTR Autumn Easton MD [address] [facility] [place] [phone] Mr Imaging [place] [address] Referral ID Status Reason Start Date Expiration Date Visits Requested Visits Authorized [id number] New Request Auto-Generat ed Referral 05/01/2024 05/24/2025 1 1 Specialty Diagnoses / Procedures Referred By Contac t Referred To Contact MR IMAGING Diagnoses Multiple sclerosis (HCC) Procedures MRI CERVICAL SPINE WO/W IVCON MRI SPINAL CANAL CERVICAL W/O & W/CONTR Autumn Easton MD [address] [place] [address] Mr Imaging [place] [address] Referral ID Status Reason Start Date Expiration Date Visits Requested Visits Authorized [id number] New Request Auto-Generat ed Referral 05/01/2024 05/24/2025 1 1 Specialty Diagnoses / Procedures Referred By Contac t Referred To Contact [facility] Diagnoses Chronic fatigue syndrome Procedures CONSULT TO PHYSICAL THERAPY PHYSICAL THERAPY EVALUATION HIGH COMPLEX 45 MINS Autumn Barclay MD [address] [place] [address] [facility] [place] [address] [place] [address] Referral ID Status Reason Start Date Expiration Date Visits Requested Visits Authorized [id number] Pending Review Auto-Generat ed Referral 04/24/2024 04/24/2025 1 1 Specialty Diagnoses / Procedures Referred By Contac t Referred To Contact Diagnoses Multiple sclerosis (CMS/HCC) Jayme Schmidt MD [address] [place] [address] Referral ID Status Reason Start Date Expiration Date V isits Requested Visits Authorized [id number] Pending Review 03/12/2024 09/08/2024 1 1 Referral ID Status Reason Start Date Expiration Date V isits Requested Visits Authorized [id number] Pending Review 1 1 Referral ID Status Reason Start Date Expiration Date V isits Requested Visits Authorized [id number] Pending Review 1 1 Referral ID Status Reason Start Date Expiration Date V isits Requested Visits Authorized [id number] Closed Auto-Generate d Referral 07/04/2024 08/03/2024 1 1 Referral ID Status Reason Start Date Expiration Date V isits Requested Visits Authorized [id number] Closed Auto-Generate d Referral 07/04/2024 08/03/2024 1 1 Specialty Diagnoses / Procedures Referred By Contac t Referred To Contact [facility] Diagnoses Relapsing remitting multiple sclerosis (HCC) Procedures CONSULT TO PHYSICAL THERAPY PHYSICAL THERAPY EVALUATION HIGH COM[place]X [place] [address] [place] [address] [facility] [place] [address] Referral ID Status Reason Start Date Expiration Date Visits Requested Visits Authorized [id number] Pending Review Auto-Generat ed Referral 07/26/2024 07/26/2025 1 1 Specialty Diagnoses / Procedures Referred By Contac t Referred To Contact [facility] IMAGING Diagnoses Relapsing remitting multiple sclerosis (HCC) Procedures MRI BRAIN WO/W IVCON MRI BRAIN BRAIN STEM W/O W/CONTRAST MATERIAL Autumn Barclay MD [address] [place] [address] Mr Imaging [place] [address] Referral ID Status Reason Start Date Expiration Date Visits Requested Visits Authorized [id number] Pending Review Auto-Generat ed Referral 10/22/2024 08/25/2025 [...] or prosecute any alcohol or drug abuse patient.[facility] the event this information is protected by the Federal Confidentiality of Alcohol and Drug Abuse Patient Records regulations: The Federal rules restrict any use of the information to criminally investigate or prosecute any alcohol or drug abuse patient.[facility] the event this information is protected by the Federal Confidentiality of Alcohol and Drug Abuse Patient Records regulations: The Federal rules restrict any use of the information to criminally investigate or prosecute any alcohol or drug abuse patient.[facility] the event this information is protected by the Federal Confidentiality of Alcohol and Drug Abuse Patient Records regulations: The Federal rules restrict any use of the information to criminally investigate or prosecute any alcohol or drug abuse patient.[facility] Hospital[facility] the event this information is protected by the Federal Confidentiality of Alcohol and Drug Abuse Patient Records regulations: The Federal rules restrict any use of the information to criminally investigate or prosecute any alcohol or drug abuse patient.[facility] Hospital[facility] the event this information is protected by the Federal Confidentiality of Alcohol and Drug Abuse Patient Records regulations: The Federal rules restrict any use of the information to criminally investigate or prosecute any alcohol or drug abuse patient.[facility] HospitalIn the event this information is protected by the Federal Confidentiality of Alcohol and Drug Abuse Patient Records regulations: The Federal rules restrict any use of the information to criminally investigate or prosecute any alcohol or drug abuse patient.[facility] HospitalIn the event this information is protected by the Federal Confidentiality of Alcohol and Drug Abuse Patient Records regulations: The Federal rules restrict any use of the information to criminally investigate or prosecute any alcohol or drug abuse patient.[facility] HospitalIn the event this information is protected by the Federal Confidentiality of Alcohol and Drug Abuse Patient Records regulations: The Federal rules restrict any use of the information to criminally investigate or prosecute any alcohol or drug abuse patient.[facility] HospitalIn the event this information is protected by the Federal Confidentiality of Alcohol and Drug Abuse Patient Records regulations: The Federal rules restrict any use of the information to criminally investigate or prosecute any alcohol or drug abuse patient.[facility] HospitalIn the event this information is protected by the Federal Confidentiality of Alcohol and Drug Abuse Patient Records regulations: The Federal rules restrict any use of the information to criminally investigate or prosecute any alcohol or drug abuse patient.[facility] HospitalIn the event this information is protected by the Federal Confidentiality of Alcohol and Drug Abuse Patient Records regulations: The Federal rules restrict any use of the information to criminally investigate or prosecute any alcohol or drug abuse patient.[facility] HospitalIn the event this information is protected by the Federal Confidentiality of Alcohol and Drug Abuse Patient Records regulations: The Federal rules restrict any use of the information to criminally investigate or prosecute any alcohol or drug abuse patient.[facility] HospitalIn the event this information is protected by the Federal Confidentiality of Alcohol and Drug Abuse Patient Records regulations: The Federal rules restrict any use of the information to criminally investigate or prosecute any alcohol or drug abuse patient.[facility] HospitalIn the event this information is protected by the Federal Confidentiality of Alcohol and Drug Abuse Patient Records regulations: The Federal rules restrict any use of the information to criminally investigate or prosecute any alcohol or drug abuse patient.[facility] HospitalIn the event this information is protected by the Federal Confidentiality of Alcohol and Drug Abuse Patient Records regulations: The Federal rules restrict any use of the information to criminally investigate or prosecute any alcohol or drug abuse patient.[facility] HospitalIn the event this information is protected by the Federal Confidentiality of Alcohol and Drug Abuse Patient Records regulations: The Federal rules restrict any use of the information to criminally investigate or prosecute any alcohol or drug abuse patient.[facility] HospitalIn the event this information is protected by the Federal Confidentiality of Alcohol and Drug Abuse Patient Records regulations: The Federal rules restrict any use of the information to criminally investigate or prosecute any alcohol or drug abuse patient.[facility] HospitalIn the event this information is protected by the Federal Confidentiality of Alcohol and Drug Abuse Patient Records regulations: The Federal rules restrict any use of the information to criminally investigate or prosecute any alcohol or drug abuse patient.[facility] HospitalIn the event this information is protected by the Federal Confidentiality of Alcohol and Drug Abuse Patient Records regulations: The Federal rules restrict any use of the information to criminally investigate or prosecute any alcohol or drug abuse patient.[facility] HospitalIn the event this information is protected by the Federal Confidentiality of Alcohol and Drug Abuse Patient Records regulations: The Federal rules restrict any use of the information to criminally investigate or prosecute any alcohol or drug abuse patient.[facility] HospitalIn the event this information is protected by the Federal Confidentiality of Alcohol and Drug Abuse Patient Records regulations: The Federal rules restrict any use of the information to criminally investigate or prosecute any alcohol or drug abuse patient.[facility] HospitalIn the event this information is protected by the Federal Confidentiality of Alcohol and Drug Abuse Patient Records regulations: The Federal rules restrict any use of the information to criminally investigate or prosecute any alcohol or drug abuse patient.[facility] HospitalIn the event this information is protected by the Federal Confidentiality of Alcohol and Drug Abuse Patient Records regulations: The Federal rules restrict any use of the information to criminally investigate or prosecute any alcohol or drug abuse patient.[facility] HospitalIn the event this information is protected by the Federal Confidentiality of Alcohol and Drug Abuse Patient Records regulations: The Federal rules restrict any use of the information to criminally investigate or prosecute any alcohol or drug abuse patient.[facility] HospitalIn the event this information is protected by the Federal Confidentiality of Alcohol and Drug Abuse Patient Records regulations: The Federal rules restrict any use of the information to criminally investigate or prosecute any alcohol or drug abuse patient.[facility] HospitalIn the event this information is protected by the Federal Confidentiality of Alcohol and Drug Abuse Patient Records regulations: The Federal rules restrict any use of the information to criminally investigate or prosecute any alcohol or drug abuse patient.[facility] Care Teams (unrecognized sec tion and content) Chemicals Fermentation Operator Relationship Specialty Start Date End Date Jayme Schmidt PCP - General Internal Medicine 08/12/13 Chemicals Fermentation Operator Relationship Specialty Start Date End Date Jayme Schmidt PCP - General Internal Medicine 08/12/13 Chemicals Fermentation Operator Relationship Specialty Start Date End Date Jayme Schmidt PCP - General Internal Medicine 08/12/13 Chemicals Fermentation Operator Relationship Specialty Start Date End Date Jayme Schmidt PCP - General Internal Medicine 08/12/13 Chemicals Fermentation Operator Relationship Specialty Start Date End Date Jayme Schmidt PCP - General Internal Medicine 08/12/13 Chemicals Fermentation Operator Relationship Specialty Start Date End Date Julissa Jayme Herrera PCP - General Internal Medicine 08/12/13 Chemicals Fermentation Operator Relationship Specialty Start Date End Date JulissaJayme PCP - General Internal Medicine 08/12/13 Chemicals Fermentation Operator Relationship Specialty Start Date End Date JulissaJayme PCP - General Internal Medicine 08/12/13 Chemicals Fermentation Operator Relationship Specialty Start Date End Date JulissaJayme PCP - General Internal Medicine 08/12/13 Chemicals Fermentation Operator Relationship Specialty Start Date End Date Jayme Schmidt PCP - General Internal Medicine 08/12/13 Chemicals Fermentation Operator Relationship Specialty Start Date End Date Jayme Schmidt PCP - General Internal Medicine 08/12/13 Chemicals Fermentation Operator Relationship Specialty Start Date End Date Jayme Schmidt PCP - General Internal Medicine 08/12/13 Chemicals Fermentation Operator Relationship Specialty Start Date End Date GlenroysoloJayme ryan PCP - General Internal Medicine 08/12/13 Team [...] Provider Active S tart: December 19, 2023 Chemicals Fermentation Operator Relationship Specialty Start Date End Date Jayme Schmidt PCP - General Internal Medicine 08/12/13 Chemicals Fermentation Operator Relationship Specialty Start Date End Date Jayme Schmidt PCP - General Internal Medicine 08/12/13 Chemicals Fermentation Operator Relationship Specialty Start Date End Date Jayme Schmidt PCP - General Internal Medicine 08/12/13 Chemicals Fermentation Operator Relationship Specialty Start Date End Date Jayme Schmidt PCP - General Internal Medicine 08/12/13 Chemicals Fermentation Operator Relationship Specialty Start Date End Date Jayme Schmidt PCP - General Internal Medicine 08/12/13 Chemicals Fermentation Operator Relationship Specialty Start Date End Date Jayme Schmidt PCP - General Internal Medicine 08/12/13 Chemicals Fermentation Operator Relationship Specialty Start Date End Date Jayme Schmidt MD PCP - General Internal Medicine 08/12/13 Chemicals Fermentation Operator Relationship Specialty Start Date End Date Jayme Schmidt MD [address] [place] [address] PCP - General Family Medicine 08/21/23 Chemicals Fermentation Operator Relationship Specialty Start Date End Date Jayme Schmidt MD [address] [place] [address] PCP - General Family Medicine 08/21/23 Chemicals Fermentation Operator Relationship Specialty Start Date End Date Jayme Schmidt MD [address] [place] [address] PCP - General Family Medicine 08/21/23 Chemicals Fermentation Operator Relationship Specialty Start Date End Date Jayme Schmidt MD [address] [place] [address] PCP - General Family Medicine 08/21/23 Chemicals Fermentation Operator Relationship Specialty Start Date End Date Jayme Schmidt MD [address] [place] [address] PCP - General Family Medicine 08/21/23 Chemicals Fermentation Operator Relationship Specialty Start Date End Date Jayme Schmidt MD [address] [place] [address] PCP - General Family Medicine 08/21/23 Chemicals Fermentation Operator Relationship Specialty Start Date End Date Jayme Schmidt MD [address] [place] [address] PCP - General Family Medicine 08/21/23 Chemicals Fermentation Operator Relationship Specialty Start Date End Date Jayme Schmidt MD [address] [place] [address] PCP - General Family Medicine 08/21/23 Chemicals Fermentation Operator Relationship Specialty Start Date End Date Jayme Schmidt MD [address] [place] [address] PCP - General Family Medicine 08/21/23 Chemicals Fermentation Operator Relationship Specialty Start Date End Date Jayme Schmidt MD [address] [place] [address] PCP - General Family Medicine 08/21/23 Chemicals Fermentation Operator Relationship Specialty Start Date End Date Jayme Schmidt MD [address] [place] [address] PCP - General Family Medicine 08/21/23 Chemicals Fermentation Operator Relationship Specialty Start Date End Date Jayme Schmidt MD [address] [place] [address] PCP - General Family Medicine 08/21/23 Chemicals Fermentation Operator Relationship Specialty Start Date End Date Jayme Schmidt MD [address] [place] [address] PCP - General Family Medicine 08/21/23 Chemicals Fermentation Operator Relationship Specialty Start Date End Date Jayme Schmidt MD PCP - General Internal Medicine 08/12/13 Chemicals Fermentation Operator Relationship Specialty Start Date End Date Jayme Schmidt MD PCP - General Internal Medicine 08/12/13 Chemicals Fermentation Operator Relationship Specialty Start Date End Date Jayme Schmidt MD PCP - General Internal Medicine 08/12/13 Chemicals Fermentation Operator Relationship Specialty Start Date End Date Jayme Schmidt MD PCP - General Internal Medicine 08/12/13 Chemicals Fermentation Operator Relationship Specialty Start Date End Date Jayme Schmidt MD [address] [place] [address] PCP - General Family Medicine 08/21/23 Chemicals Fermentation Operator Relationship Specialty Start Date End Date Jayme Schmidt MD [address] [place] [address] PCP - [facility] Family Medicine 08/21/23 Chemicals Fermentation Operator Relationship Specialty Start Date End Date Jayme Schmidt MD [address] [place] [address] PCP - [facility] Medicine 08/21/23 Chemicals Fermentation Operator Relationship Specialty Start Date End Date Jayme Schmidt MD [address] [place] [address] PCP - General Family Medicine 08/21/23 Chemicals Fermentation Operator Relationship Specialty Start Date End Date Jayme Schmidt MD [address] [place] [address] PCP - General Family Medicine 08/21/23 Reason for Visit (unrecogniz ed section and content) Specialty Diagnoses / Procedures Referred By Deedee t Referred To Contact MR IMAGING Diagnoses Multiple sclerosis (HCC) Encounter for long-term (current) use of medications Procedures MRI BRAIN WO/W IVCON MRI BRAIN COMBO Autumn Barclay MD [address] [place] [address] Mr Imaging Referral ID Status Reason Start Date Expiration Date V isits Requested Visits Authorized [id number] Closed Auto-Generate d Referral 10/25/2021 07/23/2022 1 1 Specialty Diagnoses / Procedures Referred By Contac t Referred To Contact Diagnoses Multiple sclerosis (HCC) MS Procedures INJECTION, OCRELIZUMAB, 1 MG OCRELIZUMAB Yoly Miller, ONEIDA.LOAN SUPERVISOR [address] [id number] [facility] [address] [place] [address] Referral ID Status Reason Start Date Expiration Date V isits Requested Visits Authorized [id number] Authorized 05/15/2020 12/17/2023 99 99 Reason Comments Established Patient Follow-Up Reason Comments Refill Request Specialty Diagnoses / Procedures Referred By Contac t Referred To Contact MR IMAGING Diagnoses Multiple sclerosis (HCC) Encounter for long-term (current) use of medications Procedures MRI BRAIN WO/W IVCON MRI BRAIN BRAIN STEM W/O W/CONTRAST MATERIAL Yoly Miller APRN.LOAN SUPERVISOR [address] [place] [address] Mr Imaging Referral ID Status Reason Start Date Expiration Date V isits Requested Visits Authorized [id number] Closed Auto-Generate d Referral 01/04/2023 07/23/2023 1 1 Reason Comments Established Patient Follow-Up Reason Comments Radiology MRI Specialty Diagnoses / Procedures Referred By Contac t Referred To Contact MR IMAGING Diagnoses Multiple sclerosis (HCC) Procedures MRI BRAIN WO/W IVCON MRI BRAIN BRAIN STEM W/O W/CONTRAST MATERIAL Yoly Miller, ONEIDA.LOAN SUPERVISOR [address] [place] [address] Mr Imaging [id number] Referral ID Status Reason Start Date Expiration Date V isits Requested Visits Authorized [id number] Closed Auto-Generate d Referral 11/01/2023 07/23/2024 1 1 Specialty Diagnoses / Procedures Referred By Contac t Referred To Contact MR IMAGING Diagnoses Spinal stenosis of lumbar region without neurogenic claudication Procedures MRI LUMBAR SPINE WO IVCON MRI SPINAL CANAL LUMBAR W/O CONTRAST MATERIAL Yoly Miller APRN.CNP [address] [phone] [facility] [place] [address] Referral ID Status Reason Start Date Expiration Date V isits Requested Visits Authorized [id number] Closed Auto-Generate d Referral 11/01/2023 07/23/2024 1 1 Reason Comments New Patient Referral ID Status Reason Start Date Expiration Date V isits Requested Visits Authorized [id number] Authorized 05/15/2020 01/16/2025 9 9 Reason Comments [...] Date Expiration Date Visits Requested Visits Authorized [id number] Pending Review Clearance Not Met - Admin/Chair man/Directo r Advise to Postpone/Re schedule or Not Proceed 01/16/2025 9 9 Reason Comments Radiology MRI Specialty Diagnoses / Procedures Referred By Contac t Referred To Contact MR IMAGING Diagnoses Multiple sclerosis (HCC) Procedures MRI THORACIC SPINE WO/W IVCON MRI SPINAL CANAL THORACIC W/O & W/CONTR Autumn Easton MD [address] [place] [address] Mr Imaging [id number] Referral ID Status Reason Start Date Expiration Date V isits Requested Visits Authorized [id number] Closed Auto-Generate d Referral 07/04/2024 08/03/2024 1 1 Reason Comments Weight Management Pt present today for Adipex #2 visit. INFORMATION SOURCE (unrecogn ized section and content) DATE CREATED AUTHOR 12/15/2021 [facility] DATE CREATED AUTHOR AUTHOR'S ORGANIZ ATION 06/27/2022 [facility] DATE CREATED AUTHOR AUTHOR'S ORGANIZ ATION 02/24/2023 [facility] DATE CREATED AUTHOR AUTHOR'S ORGANIZ ATION 12/20/2023 [facility] DATE CREATED AUTHOR AUTHOR'S ORGANIZ ATION 02/21/2024 [facility] DATE CREATED AUTHOR AUTHOR'S ORGANIZ ATION 08/03/2024 [facility] DATE CREATED AUTHOR AUTHOR'S ORGANIZ ATION 08/30/2024 [facility] EPIC Goals (unrecognized section and [...] BE BASED ON THE PRIMARY CLINICAL RECORDS. [facility]. provides no warranty or guarantee of the accuracy or completeness of information in this document.
== END 2024-09-10 10:49 | disposition home or self-care (01) ==
LOC: RAD 10:49
PROVIDERS: PCP Family Medicine; Visit Provider Podiatrist Foot & Ankle Surgery
DX: M79.672 Pain in left foot (principal); Z98.890 Other specified postprocedural states
CPT/HCPCS: 73630

== ENCOUNTER 2024-09-25 08:43 | Outpatient (OUT) | payer OTHER, SELFPAY ==
--- NOTE | 2024-09-25 08:46 | XR_ITS ---
[facility] [place] [id number] Patient Name: KASHIF JAQUEZ MRN: [id number] date: 1995 Sex: F Assigned Patient Location: [facility] Current Patient Location: [facility] Accession/Order Number: [id number] Exam Date: 09/25/2024 22:57 Report Date: 09/25/2024 22:58 At the request of: AMRIK MUELLER DPJohn Procedure: XR foot LT min 3V LEFT FOOT - 3 views CLINICAL HISTORY: Follow-up surgery. COMPARISON: Left foot 09/10/2024 FINDINGS: Hardware is seen transversing a fracture involving the fifth metatarsal without evidence of hardware complication or change in alignment. Callus formation is present suggestive of healing response. XR/XR foot LT min 3V IMPRESSION: HEALING FIFTH METATARSAL FRACTURE. NO HARDWARE COMPLICATION. Impression dictated by: Blake Mcdonald Jr., D.O.09/25/2024 10:58 PM Dictation Location[facility] Electronically authenticated by: [id number] Y Date: 09/25/2024 22:58
== END 2024-09-25 08:44 | disposition home or self-care (01) ==
LOC: RAD 08:43
PROVIDERS: PCP Family Medicine; Visit Provider Podiatrist Foot & Ankle Surgery
DX: M79.672 Pain in left foot (principal); S92.352D Displaced fracture of fifth metatarsal bone, left foot, subsequent encounter for fracture with routine healing
CPT/HCPCS: 73630

== ENCOUNTER 2024-10-01 13:54 | Outpatient (RCR) | payer OTHER, SELFPAY | END 2024-10-16 11:04 | disposition home or self-care (01) | LOC: PT 13:54 | PROVIDERS: PCP Family Medicine; Visit Provider Podiatrist Foot & Ankle Surgery | DX: S92.355D Nondisplaced fracture of fifth metatarsal bone, left foot, subsequent encounter for fracture with routine healing (principal); R26.9 Unspecified abnormalities of gait and mobility | CPT/HCPCS: 97110; 97162 ==

== ENCOUNTER 2025-01-31 12:49 | Outpatient (OUT) | payer OTHER, SELFPAY ==
--- OUTSIDE RECORDS SUMMARY | 2024-09-16 09:18 | XMS_ITS ---
Author Organization [facility] in [place] Address [address] [place] [address] Care Team Providers Care Tank Car Loader Name Role Phone Jayme Franklin MD Primary Care Provider Unavailab Kimo Zimmer Unavailable [phone] REASON FOR VISIT pain medication request Medications [...] Encounters Encounter Location Date Provider Diagnosis [facility] (PODIATRY) [address] [place] [address] [place] [address] 09/16/2024 Kimo Oakley Plan Of Treatment Medication Medication Name Sig Start Date Stop Date Notes HYDROcodone-Acetaminophen 5- 325 MG 1 tablet as needed Orally every 6 hrs for 7 days 09/18/2024 Progress Notes * Natalie CARSONDOB: 8 (28 yo F)Acc No.[id number]:09/16/2024 Patient: Natalie RAMOS :1995 A ge:28 Y S ex:Female Address:[address] [place] [address], [phone] * Refills Refill HYDROcodone-Acetaminophen Tablet, 5-325 MG, [...] Date: Generated for Alisha leigh/Raymond/Neetu on: 0 01/31/2025 12:54 PM EDT
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
--- OUTSIDE RECORDS SUMMARY | 2025-01-31 12:54 | XMS_ITS | Encounter Summary ---
Author Organization [facility] Address [address] [place] [address] Care Team Providers Care Educational Assistant Teacher Name Role Phone Jayme Franklin MD Primary Care Provider [phone] Jayme Franklin MD Unavailable Encounter Details Date Type Department Care Team (Late st Contact Info) Description 08/13/2024 Clinisync Result Encounter [facility] External Department Unsolicited Provider, Generic External Data Social History Tobacco Use Types Packs/Day Years Used Date Smoking Tobacco: Never Smokeless Tobacco: Never Alcohol Use Standard Drinks/Week Comments Not Currently 0 (1 standard drink = 0.6 oz pure alcohol) caffeine intake: 1-2 cups per day. Social Connection and Isolation Panel [NHANES] A nswer Date Recorded In a typical week, how many times do you talk on the phone with family, friends, or neighbors? Twice a week 09/17/2023 How often do you get together with friends or re latives? Once a week 09/17/2023 How often do you attend jain or jehovah's witness serv ices? Never 09/17/2023 Do you belong to any clubs o r organizations such as jain groups, unions, fraternal or athletic groups, or school groups? No 09/17/2023 How often do you attend meet ings of the clubs or organizations you belong to? Never 09/17/2023 Are you , , di vorced, , never , or living with a partner? Never 09/17/2023 AUDIT-C Answer Date Recorded Q1: How often do you have a drink containing alc ohol? Monthly or less 09/17/2023 Q2: How many drinks containi ng alcohol do you have on a typical day when you are drinking? 5 or 6 09/17/2023 Q3: How often do you have si x or more drinks on one occasion? Less than monthly 09/17/2023 Overall Financial Resource Strain (CARDIA) Answe r Date Recorded How hard is it for you to pa y for the very basics like food, housing, medical care, and heating? Somewhat hard 09/17/2023 [facility] - Occupational Stress Questionnaire Answer Date Recorded Do you feel stress - tense, restless, nervous, or anxious, or unable to sleep at night because your mind is troubled all the time - these days? Not at all 09/17/2023 Exercise Vital Sign Answer Date Recorde d On average, how many days pe r week do you engage in moderate to strenuous exercise (like a brisk walk)? 2 days 09/17/2023 On average, how many minutes do you engage in exercise at this level? 60 min 09/17/2023 Hunger Vital Sign Answer Date Recorded Within the past 12 months, y ou worried that your food would run out before you got the money to buy more. Sometimes true Within the past 12 months, t he food you bought just didn't last and you didn't have money to get more. Sometimes true PRAPARE - Transportation Answer Date Re corded In the past 12 months, has l ack of transportation kept you from medical appointments or from getting medications? No 08/25 In the past 12 months, has l ack of transportation kept you from meetings, work, or from getting things needed for daily living? No 09/17/2023 Housing Stability Vital Sign Answer Edgar e Recorded In the last 12 months, was t here a time when you were not able to pay the mortgage or rent on time? No 09/17/2023 In the last 12 months, how many places have you lived? 1 09/17/2023 In the last 12 months, was t here a time when you did not have a steady place to sleep or slept in a care home (including now)? No 09/17/2023 Comments No Sex and Gender Information Value Date Recorded Sex Assigned at Female 02/08/2023 3:48 PM EDT Legal Sex Female 6:57 PM EDT Gender Identity Female 02/08/2023 3:48 PM EDT Sexual Orientation Straight 02/08/2023 3: 48 PM EDT documented as of this encounter Plan of Treatment Upcoming Encounters Date Type Department Care Team (Late st Contact Info) Description 02/25/2025 1:00 PM EDT Office Visit [facility] [address] [place] [address] Jayme Franklin MD [address] [place] [address] documented as of this encounter Procedures Procedure Name Priority Date/Time Associated Diagnosis Comments XR CHEST 2V 08/13/2024 10:30 AM EST ALL CBC WITH AUTO DIFF Routine 08/13/2024 9:45 AM EST documented in this encounter Results * XR CHEST 2V (08/13/2024 10:30 AM EST) Anatomical Region Laterality Modality Other 08/13/2024 10:3 0 AM EST Narrative 08/13/2024 10:32 [place] [address] XRay Report Signed Patient: NATALIE CARSON MR#: [id number] : 1995 Acct:[id number] Age/Sex: 28 / F ADM Date: 08/13/24 Loc: PST Attending Dr: Amrik Oakley D.P.M. Ordering Physician: Amrik Oakley D.P.M. Date of Service: 08/13/24 Procedure(s): XR chest 2V Accession Number(s): [id number] cc: Amrik Oakley D.P.M.; Jayme Franklin M.D. The [address] [address] Patient Name: NATALIE CARSON MRN: [facility]:[id number] date: 1995 Sex: F Assigned Patient Location: [facility] Current Patient Location: [facility] Accession/Order Number: [id number] Exam Date: 08/13/2024 09:40 Report Date: 08/13/2024 10:30 At the request of: AMRIK OAKLEY Procedure: XR chest 2V PROCEDURE: XR chest 2V DATE: 08/13/2024 8:40 AM STRATEGY DIRECTOR COMPARISONS: 04/13/2023 CLINICAL INDICATION: 28 years Female Preop exam FINDINGS: The cardiomediastinal silhouette and pulmonary vasculature are within normal limits. The lungs are clear. There is no evidence of pleural effusion or pneumothorax. XR/XR chest 2V IMPRESSION: Chest radiograph is within normal limits. Electronically authenticated by: ZEFERINO NULL Date: 08/13/2024 10:30 Dictated By: Zeferino Null M.D. Signed By: 08/13/24 1032 DD/ 1030 TD/TT: Outpatient Psychiatrist: Procedure Note Radiology, Radiologist, MD - 08/13/2024 [place] [address] XRay Report Signed Patient: NATALIE CARSON MMR#: [id number] : 1995Acct:[id number] Age/Sex: 28 FADM Date: 08/13/24 Loc: [facility] Attending Dr: Amrik Oakley D.P.M. Ordering Physician: Amrik Oakley D.P.M. Date of Service: 08/13/24 Procedure(s): XR chest 2V Accession Number(s): [id number] cc: Amrik Oakley D.P.M.; Jayme Franklin M.D. The [place] [address] Patient Name: NATALIE CARSON MRN: [facility]:[id number] date: 1995 Sex: F Assigned Patient Location: [facility] Current Patient Location: [facility] Accession/Order Number: [id number] Exam Date: 08/13/2024 09:40 Report Date: 08/13/2024 10:30 At the request of: AMRIK OAKLEY Procedure: XR chest 2V PROCEDURE: XR chest 2V DATE: 08/13/2024 8:40 AM STRATEGY DIRECTOR COMPARISONS: 04/13/2023 CLINICAL INDICATION: 28 years Female Preop exam FINDINGS: The cardiomediastinal silhouette and pulmonary vasculature are withinnormal limits. The lungs are clear. There is no evidence of pleural effusion or pneumothorax. XR/XR chest 2V IMPRESSION: Chest radiograph is within normal limits. Electronically authenticated by: ZEFERINO NULL Date: 08/13/2024 10:30 Dictated By: Zeferino Null M.D. Signed By:08/13/24 1032 DD/ 1030 TD/TT: Outpatient Psychiatrist: us Generic External Data Provider [facility] Final Result * (ABNORMAL) ALL CBC WITH AUTO DIFF (08/13/2024 9:45 AM EST) [facility] WBC 5.9 4.0 - 11.0 10 3/uL [facility] RBC 5.10 4.20 - 5.40 10 6/uL [facility] HGB 14.3 12.0 - 16.0 g/dL [facility] HCT 44.2 36.0 - 48.0 % [facility] MCV 86.7 81.0 - 99.0 fL [facility] MCH 28.0 26.7 - 34.0 pg [facility] MCHC 32.4 29.9 - 35.2 g/dL [facility] RDW 12.5 11.0 - 15.0 % [facility] PLT 441 150 - 450 10 3/uL [facility] MPV 10.1 9.5 - 13.5 fL [facility] NEUTROPHILS PERCENT AUTO 30.3(L) 43.0 - 75.0 % [facility] LYMPHOCYTES PERCENT AUTO 46.3 20.5 - 60.0 % [facility] MONOCYTES PERCENT AUTO 19.8(H) 1.7 - 12.0 % [facility] EO % 2.9 0.9 - 7.0 % [facility] BASOPHILS PERCENT AUTO 0.5 0.2 - 2.0 % [facility] IMMATURE GRANULOCYTES PCT AUTO 0.2 0.0 - 0.5 % [facility] NEUTROPHILS ABSOLUTE AUTO 1.8 1.4 - 6.5 10 3/uL [facility] LYMPHOCYTES ABSOLUTE AUTO 2.7 1.2 - 3.8 10 3/uL [facility] MONOCYTES ABSOLUTE AUTO 1.2(H) 0.3 - 0.8 10 3/uL [facility] EO # 0.2 0.0 - 0.7 10 3/uL [facility] BASOPHILS ABSOLUTE AUTO 0.0 0.0 - 0.1 10 3/uL [facility] IMMATURE GRANULOCYTES ABS AUTO 0.01 0.00 - 0.03 10 3/uL [facility] 08/13/2024 9:45 AM EST 08/13/2024 9:51 AM EST Narrative [facility] - 08/13/2024 11:17 AM EST us Generic External Data Provider [facility] F inal Result [facility] documented in this encounter Visit Diagnoses Not on filedocumented in this encounter Care Teams Educational Assistant Teacher Relationship Specialty Start Date End Date Jayme Franklin MD [address] [place] [id number] PCP - General Family Medicine 08/21/23 Jayme Franklin MD [address] [place] [phone] PCP - [facility] 07/24/24 documented as of this encounter
--- OUTSIDE RECORDS SUMMARY | 2025-01-31 12:54 | XMS_ITS | Encounter Summary ---
Author Organization [facility] Address [address] [place] [id number] Care Team Providers Care Machine Design Engineer Name Role Phone Jayme Franklin MD Primary Care Provider [phone] Source Comments In the event this information is protected by the Federal Confidentiality of Alcohol and Drug AbusePatient Records regulations: The Federal rules restrict any use of the information to criminally investigate or prosecute any alcohol or drug abuse patient.[facility] Encounter Details Date Type Department Care Team (Late st Contact Info) Description 06/11/2018 [facility] [place] [phone] Yoly Miller, [place] [id number] RE: Non-Urgent Medical Question Social History Tobacco Use Types Packs/Day Years Used Date Smoking Tobacco: Passive Smo ke Exposure - Never Smoker Smokeless Tobacco: Never Alcohol Use Standard Drinks/Week Comments No 0 (1 standard drink = 0.6 oz pur e alcohol) Comments No Sex and Gender Information Value Date Recorded Sex Assigned at Female 07/21/2021 4:31 PM EST Legal Sex Female 7:18 AM EST Gender Identity Female 07/21/2021 4:31 PM EST Sexual Orientation Straight 07/21/2021 4: 31 PM EST documented as of this encounter Functional Status * Are you deaf or do you have serious difficulty hearing? Answer Date of Assessment Author No 01/06/2015 2:50 PM EDT Jackie Warren Ma * Are you blind or do you have serious difficulty seeing, even when wearing glasses? Answer Date of Assessment Author No 01/06/2015 2:50 PM EDT Jackie Warren Ma * Do you have serious difficulty walking or climbing stairs? Answer Date of Assessment Author No 01/06/2015 2:50 PM EDT Jackie Warren Ma * Do you have difficulty dressing or bathing? Answer Date of Assessment Author No 01/06/2015 2:50 PM EDT Jackie Warren Ma * Because of a physical, mental, or emotional condition, do you have difficulty doing errands alone such as visiting a doctor's office or shopping? Answer Date of Assessment Author No 01/06/2015 2:50 PM EDT Jackie Warren Ma documented as of this encounter Mental Status * Because of a physical, mental, or emotional condition, do you have serious difficulty concentrating, remembering, or making decisions? Answer Entry Date Author No 01/06/2015 2:50 PM EDT Jackie Warren Ma documented in this encounter Plan of Treatment Upcoming Encounters Date Type Department Care Team (Latest Contact Info) Description 02/08/2025 10:45 AM EDT [address] [address] Yoly Miller, [place].[employer] [address] [place] [address] Just my yearly for my MS 07/21/2025 10:30 AM EST [facility]On[facility] [address] [place] [address] [place] [address] [employer] documented as of this encounter Visit Diagnoses Not on filedocumented in this encounter Care Teams Machine Design Engineer Relationship Specialty Start Date End Date Jayme Franklin MD PCP - General Internal Medicine 08/12/13 documented as of this encounter
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
--- OUTSIDE RECORDS SUMMARY | 2025-01-31 12:54 | XMS_ITS | Encounter Summary ---
Author Organization [facility] Address [address] [place] [address] [place] [address] Care Team Providers Care Web Content Producer Name Role Phone Jayme Franklin MD Primary Care Provider [phone] Jayme Franklin MD Unavailable Encounter Details Date Type Department Care Team (Late st Contact Info) Description 07/18/2024 Clinisync Result Encounter [facility] External Department Unsolicited [...] week 09/17/2023 How often do you attend catholic or yarsani serv ices? Never 09/17/2023 Do you belong to any clubs o r organizations such as catholic groups, unions, fraternal or athletic groups, or [...] medical care, and heating? Somewhat hard 09/17/2023 [facility] of Occupat ional [facility] - Occupational Stress Questionnaire Answer Date Recorded [...] place to sleep or slept in a jail (including now)? No 09/17/2023 Comments Unknown Sex and Gender Information Value Date Recorded [...] Visit [facility] [address] [place] [address] Jayme Franklin MD [address] [place] [place] [address] documented as of this encounter Procedures Procedure Name Priority Date/Time Associated Diagnosis Comments MRI THORACIC SPINE WO/W IVCON 07/18/2024 2:37 PM EST documented in this encounter Results * MRI THORACIC SPINE WO/W IVCON (07/18/2024 2:37 PM EST) Anatomical Region Laterality Modality Other 07/18/2024 2:37 PM EST Narrative 07/18/2024 3:55 PM EST * * *Final Report* * * DATE OF EXAM: Jul 18 2024 2:37PM [facility] 0326 - MRI THORACIC SPINE WO/W IVCON [...] history of multiple sclerosis. Cord T2 Plaque [place]: Mild New T2 Lesions: None Interval Cord [...] and assume there are 5 lumbar-type vertebrae. Tube Cleaner: MYRTLE Transcribe Date/Time: Jul 18 2024 2:39P Dictated by : SAMMIE PACE MD This examination was interpreted and the report reviewed and electronically signed by: JAYA MARTINEZ MD on Jul 18 2024 3:53PM EST [id number]^[id number]^SI^ACN Procedure Note Radiology, Radiologist, - 07/18/2024 * * *Final Report* * * DATE OF EXAM: Jul 18 2024 2:37PM [facility] 0326 - MRI THORACIC SPINE WO/W IVCON [...] 05/28/2020 RESULT: Counting reference: Craniocervical junction. Anatomic Variants:None. Counting Reference: Cervicothoracic and lumbosacral junctions. Assume [...] history of multiple sclerosis. Cord T2 Plaque Macon: Mild New T2 Lesions: None Interval Cord [...] and assume there are 5 lumbar-type vertebrae. Tube Cleaner: MYRTLE Transcribe Date/Time: Jul 18 2024 2:39P Dictated by : SAMMIE PACE MD This examination was interpreted and the report reviewed and electronically signed by: JAYA MARTINEZ MD on Jul 18 2024 3:53PM EST [id number]^SI^ACN us Generic External Data Provider [facility] Final Result documented in this encounter Visit Diagnoses Not on filedocumented in this encounter Care Teams Web Content Producer Relationship Specialty Start Date End Date Jayme Franklin MD [address] [place] [address] PCP - General Family Medicine 08/21/23 Jayme Franklin MD [address] [place] [address] PCP - [facility] 07/24/24 documented as of this encounter
--- OUTSIDE RECORDS SUMMARY | 2025-01-31 12:54 | XMS_ITS | Encounter Summary ---
Author Organization [facility] Address [address] [place] [address] [place] [address] Care Team Providers Care Applications Engineer Manufacturing Name Role Phone Jayme Franklin MD Primary Care Provider [phone] Jyame Franklin MD Unavailable Encounter Details Date Type Department Care Team (Late st Contact Info) Description 11/14/2023 Clinisync Result Encounter [facility] External Department Unsolicited [...] week 09/17/2023 How often do you attend restorationist or taoist serv ices? Never 09/17/2023 Do you belong to any clubs o r organizations such as restorationist groups, unions, fraternal or athletic groups, or [...] medical care, and heating? Somewhat hard 09/17/2023 [facility] of Occupat ional [facility] - Occupational Stress Questionnaire Answer Date [...] place to sleep or slept in a group home (including now)? No 09/17/2023 Comments Unknown Sex [...] Office Visit [facility] [address] [place] [address] Jayme Franklin MD [address] [place] [address] documented as of this encounter Procedures Procedure Name Priority Date/Time Associated Diagnosis Comments MRI LUMBAR SPINE WO IVCON 11/14/2023 1:20 PM EDT documented in this encounter Results * MRI LUMBAR SPINE WO IVCON (11/14/2023 1:20 PM EDT) Anatomical Region Laterality Modality Other 11/14/2023 1:20 PM EDT Narrative 11/14/2023 3:01 PM EDT * * *Final Report* * * DATE OF EXAM: Nov 14 2023 1:20PM [facility] 0303 - MRI LUMBAR SPINE WO IVCON [...] Improvement: None. New Enhancing Lesions: None T2 Warriors Mark of Disease: Mild. Parenchymal Volume Loss: None. [...] signal intensity and morphology. Cord T2 Plaque Warriors Mark: None New T2 Lesions: None Interval Cord [...] and assume there are 5 lumbar-type vertebrae. Mapping Specialist: MYRTLE Transcribe Date/Time: Nov 14 2023 2:47P Dictated by : LEAH MURILLO MD This examination was interpreted and the report reviewed and electronically signed by: LEAH MURILLO MD on Nov 14 2023 2:59PM EST [id number]^[id number]^[email or web address]^ACN Procedure Note Radiology, Radiologist, - 11/14/2023 * * *Final Report* * [...] Improvement: None. New Enhancing Lesions: None T2 Warriors Mark of Disease: Mild. Parenchymal Volume Loss: None. [...] signal intensity and morphology. Cord T2 Plaque Warriors Mark: None New T2 Lesions: None Interval Cord [...] and assume there are 5 lumbar-type vertebrae. Mapping Specialist: PSCB Transcribe Date/Time: Nov 14 2023 2:47P Dictated by : LEAH MURILLO MD This examination was interpreted and the report reviewed and electronically signed by: LEAH MURILLO MD on Nov 14 2023 2:59PM EST [id number]^[id number]^SI^ACN Generic External Data Provider [facility] Final Result documented in this encounter Visit Diagnoses Not on filedocumented in this encounter Care Teams Applications Engineer Manufacturing Relationship Specialty Start Date End Date Jayme Franklin MD [address] [place] [address] PCP - General Family Medicine 08/21/23 Jayme Franklin MD [address] [place] [address] PCP - [facility] 07/24/24 documented as of this encounter
--- OUTSIDE RECORDS SUMMARY | 2025-01-31 12:54 | XMS_ITS | Encounter Summary ---
Author Organization [facility] Address [address] [place] [address] [place] [address] Care Team Providers Care Aids Social Worker Name Role Phone Jayme Franklin MD Primary Care Provider [phone] Jayme Franklin MD Unavailable Encounter Details Date Type Department Care Team (Late st Contact Info) Description 04/16/2024 Clinisync Result Encounter [facility] External Department Unsolicited [...] How often do you attend catholic or orthodox serv ices? Never 09/17/2023 Do you belong [...] medical care, and heating? Somewhat hard 09/17/2023 [facility] of Occupat ional [facility] - Occupational Stress Questionnaire Answer [...] place to sleep or slept in a nursing home (including now)? No 09/17/2023 Comments Unknown [...] EDT Office Visit [facility] [address] [place] [address] Jayme Franklin MD [address] [place] [address] documented as of this encounter Procedures Procedure Name Priority Date/Time Associated Diagnosis Comments US PELVIS W/ TRANSVAGINAL 04/16/2024 7:41 AM EDT documented in this encounter Results * US PELVIS W/ TRANSVAGINAL (04/16/2024 7:41 AM EDT) Anatomical Region Laterality Modality Other 04/16/2024 7:41 AM EDT Narrative 04/16/2024 7:44 AM EDT [address] [address] Ultrasound Report Signed Patient: NATALIE CARSON MR#: [id number] : 1995 Acct:[id number] Age/Sex: 28 / F ADM Date: 04/15/24 Loc: [facility] Attending Dr: Zoe Morales Ordering Physician: Zoe Morales Date of Service: 04/15/24 Procedure(s): US pelvis w/ transvaginal Accession Number(s): [id number] cc: Zoe Morales; Jayme Franklin M.D. The [address] [address] Patient Name: NATALIE CARSON MRN: [id number] date: 1995 Sex: F Assigned Patient Location: [facility] Current Patient Location: Accession/Order Number: [id number] Exam Date: 04/15/2024 09:59 Report Date: 04/16/2024 07:41 At the request of: ZOE MORALES Procedure: US pelvis w/ transvaginal EXAMINATION: US pelvis w/ transvaginal HISTORY: POLYCYSTIC OVARIAN SYNDROME COMPARISON: No relevant comparison available. TECHNIQUE: Transabdominal and/or transvaginal sonographic examination was performed as indicated by examination type. FINDINGS: UTERUS: Normal size and appearance. Uterus size: 6.5 a 2.7 x 4.2 cm ENDOMETRIUM: Normal homogeneous appearance. Endometrial thickness: 3 mm RIGHT OVARY: Contains a 3.0 cm benign-appearing cyst. Duplex Doppler demonstrates normal waveform and flow; resistive index 0.5. Ovary size: 3.4 x 2.6 x 2.7 cm LEFT OVARY: Normal size and appearance. Duplex Doppler demonstrates normal waveform and flow; resistive index 0.6. Ovary size: 1.5 x 1.2 x 1.6 cm CUL-DE-SAC: Unremarkable. No significant free fluid. BLADDER: Unremarkable. OTHER: None. US/US pelvis w/ transvaginal IMPRESSION: 1. Right ovary contains a benign-appearing 3.0 cm cyst. 2. No increased number of ovarian cysts to suggest polycystic ovarian syndrome. Electronically authenticated by: ESME RAMÍREZ Date: 04/16/2024 07:41 Dictated By: Esme Ramírez M.D. Signed By: 04/16/24 0744 DD/ 0741 TD/TT: Bridge Maintenance Worker: Procedure Note Radiology, Radiologist, MD - 04/16/2024 [place] [address] Ultrasound Report Signed Patient: NATALIE CARSON MMR#: [id number] : 1995Acct:[id number] Age/Sex: 28 / FADM Date: 04/15/24 Loc: [facility] Attending Dr: Zoe Morales Ordering Physician: Zoe Morales Date of Service: 04/15/24 Procedure(s): US pelvis w/ transvaginal Accession Number(s): [id number] cc: Zoe Morales; Jayme Franklin M.D. The [address] [address] Patient Name: NATALIE CARSON MRN: [id number] date: 1995 Sex: F Assigned Patient Location: [facility] Current Patient Location: Accession/Order Number: [id number] Exam Date: 04/15/2024 09:59 Report Date: 04/16/2024 07:41 At the request of: ZOE MORALES Procedure: US pelvis w/ transvaginal EXAMINATION: US pelvis w/ transvaginal HISTORY: POLYCYSTIC OVARIAN SYNDROME COMPARISON: No relevant comparison available. TECHNIQUE: Transabdominal and/or transvaginal sonographic examination was performed as indicated by examination type. FINDINGS: UTERUS: Normal size and appearance. Uterus size: 6.5 a 2.7 x 4.2 cm ENDOMETRIUM: Normal homogeneous appearance. Endometrial thickness: 3 mm RIGHT OVARY: Contains a 3.0 cm benign-appearing cyst. Duplex Doppler demonstrates normal waveform and flow; resistive index 0.5. Ovary size:3.4 x 2.6 x 2.7 cm LEFT OVARY: Normal size and appearance. Duplex Doppler demonstrates normal waveform and flow; resistive index 0.6. Ovary size: 1.5 x 1.2 x 1.6 cm CUL-DE-SAC: Unremarkable. No significant free fluid. BLADDER: Unremarkable. OTHER: None. US/US pelvis w/ transvaginal IMPRESSION: 1. Right ovary contains a benign-appearing 3.0 cm cyst. 2. No increased number of ovarian cysts to suggest polycystic ovarian syndrome. Electronically authenticated by: ESME RAMÍREZ Date: 04/16/2024 07:41 Dictated By: Esme Ramírez M.D. Signed By:04/16/24 0744 DD/ 0741 TD/TT: Bridge Maintenance Worker: us Generic External Data Provider [facility] Final Result documented in this encounter Visit Diagnoses Not on filedocumented in this encounter Care Teams Aids Social Worker Relationship Specialty Start Date End Date Jayme Franklin MD [address] [place] [address] PCP - General Family Medicine 08/21/23 Jayme Franklin MD [address] [place] [address] [facility] 07/24/24 documented as of this encounter
--- OUTSIDE RECORDS SUMMARY | 2025-01-31 12:54 | XMS_ITS | Encounter Summary ---
Author Organization [facility] Address [address] [place] [address] [address] Care Team Providers Care Oil Lease Operator Name Role Phone Jayme Costa MD Primary Care Provider [phone] Jayme Costa MD Unavailable Encounter Details Date Type Department Care Team (Late st Contact Info) Description 08/15/2024 Clinisync Result Encounter [facility] External Department Unsolicited Jayme Costa MD [address] [place] [address] Social History Tobacco Use Types Packs/Day Years [...] week 09/17/2023 How often do you attend tenriism or alevism serv ices? Never 09/17/2023 Do you belong to any clubs o r organizations such as tenriism groups, unions, fraternal or athletic groups, or [...] medical care, and heating? Somewhat hard 09/17/2023 [facility] of Occupat ional Health - Occupational Stress Questionnaire Answer Date Recorded [...] place to sleep or slept in a halfway (including now)? No 09/17/2023 Comments No Sex [...] EDT Office Visit [facility] [address] [place] [address] Jayme Costa MD [address] [place] [place] [address] documented as of this encounter Procedures Procedure Name Priority Date/Time Associated Diagnosis Comments XR DEXA AXIAL SKELETON 08/15/2024 12:46 PM EST documented in this encounter Results * XR DEXA AXIAL SKELETON (08/15/2024 12:46 PM EST) Anatomical Region Laterality Modality Other 08/15/2024 12:4 6 PM EST Narrative 08/15/2024 12:48 PM EST The [address] [address] XRay Report Signed Patient: KASHIF CARSON MR#: [id number] : 1995 Acct:[id number] Age/Sex: 28 / F ADM Date: 08/15/24 Loc: RAD Attending Dr: Jayme Costa M.D. Ordering Physician: Jayme Costa M.D. Date of Service: 08/15/24 Procedure(s): XR DEXA axial skeleton Accession Number(s): [id number] cc: Jayme Costa M.D. [address] [address] Patient Name: KASHIF CARSON MRN: [facility]:[id number] date: 1995 Sex: F Assigned Patient Location: [facility] Current Patient Location: [facility] Accession/Order Number: [id number] Exam Date: 08/15/2024 10:45 Report Date: 08/15/2024 12:46 At the request of: JAYME COSTA Procedure: XR DEXA axial skeleton EXAMINATION: XR DEXA axial skeleton, 08/15/2024 10:45 AM EST HISTORY: Closed Fracture Of Foot COMPARISON: None. TECHNIQUE: Dual-energy X-ray absorptiometry (DEXA) bone density study performed for the axial skeleton. FINDINGS: Bone mineral density AP spine L1-L4 measures 1.104 g/sq cm. T score -0.6. Normal Lowest bone density right femoral trochanter measures 0.750 g/sq cm. T score -0.9. Normal XR/XR DEXA axial skeleton IMPRESSION: Normal bone mineral density. Low fracture risk 10 year fracture risk is not reported because T score is at or above -1.0 Pharmacologic treatment recommendations * No uniform recommendation applies to all patients. Management plans must be individualized. * Consider initiating pharmacologic treatment in postmenopausal women and men >= 50 years of age who have the following: Primary fracture prevention: * T-score <= - 2.5 at the femoral neck, total hip, lumbar spine, 33% radius (some uncertainty with existing data) by DXA. * Low bone mass (osteopenia: T-score between - 1.0 and - 2.5) at the femoral neck or total hip by DXA with a 10-year hip fracture risk >= 3% or a 10-year major osteoporosis-related fracture risk >= 20% (i.e., clinical vertebral, hip, forearm, or proximal humerus) based on the US-adapted FRAXregistered model. Secondary fracture prevention: * Fracture of the hip or vertebra regardless of BMD [4, 5]. * Fracture of proximal humerus, pelvis, or distal forearm in persons with low bone mass (osteopenia: T-score between - 1.0 and - 2.5). The decision to treat should be individualized in persons with a fracture of the proximal humerus, pelvis, or distal forearm who do not have osteopenia or low BMD [12, 13]. Elyse MS, Hussain SL, Jose KL, Alex EM, Radames KG, AJ, Gardenia ES. The clinician's guide to prevention and treatment of osteoporosis. Osteoporos Int. 2021;33(10):2516-1647. doi: 10.1007/y09653-618-60946-u. Epub 2021Nov 18. Erratum in: Osteoporos Int. 2021Feb 17;: PMID: 55851134; PMCID: [id number]. Electronically authenticated by: BEATRICE JARAMILLO Date: 08/15/2024 12:46 Dictated By: Beatrice Jaramillo M.D. Signed By: 08/15/24 1248 DD/ 1246 TD/TT: Box Fabricator: Procedure Note Radiology, Radiologist, MD - 08/15/2024 [place] [address] XRay Report Signed Patient: KASHIF CARSON MMR#: [id number] : 1995Acct:[id number] Age/Sex: 28 / FADM Date: 08/15/24 Loc: RAD Attending Dr: Jayme Costa M.D. Ordering Physician: Jayme Costa M.D. Date of Service: 08/15/24 Procedure(s): XR DEXA axial skeleton Accession Number(s): [id number] cc: Jayme Costa M.D. The [place] [address] Patient Name: KASHIF CARSON MRN: [facility]:[id number] date: 1995 Sex: F Assigned Patient Location: [facility] Current Patient Location: [facility] Accession/Order Number: [id number] Exam Date: 08/15/2024 10:45 Report Date: 08/15/2024 12:46 At the request of: JAYME COSTA Procedure: XR DEXA axial skeleton EXAMINATION: XR DEXA axial skeleton, 08/15/2024 10:45 AM EST HISTORY: Closed Fracture Of Foot COMPARISON: None. TECHNIQUE: Dual-energy X-ray absorptiometry (DEXA) bone density study performed for the axial skeleton. FINDINGS: Bone mineral density AP spine L1-L4 measures 1.104 g/sq cm. T score -0.6. Normal Lowest bone density right femoral trochanter measures 0.750 g/sq cm. Tscore -0.9. Normal XR/XR DEXA axial skeleton IMPRESSION: Normal bone mineral density. Low fracture risk 10 year fracture risk is not reported because T score is at or above -1.0 Pharmacologic treatment recommendations * No uniform recommendation applies to all patients. Management plans mustbe individualized. * Consider initiating pharmacologic treatment in postmenopausal women andmen >= 50 years of age who have the following: Primary fracture prevention: * T-score <= - 2.5 at the femoral neck, total hip, lumbar spine, 33%radius (some uncertainty with existing data) by DXA. * Low bone mass (osteopenia: T-score between - 1.0 and - 2.5) at thefemoral neck or total hip by DXA with a 10-year hip fracture risk >= 3% or [id number] major osteoporosis-related fracture risk >= 20% (i.e., clinical vertebral, hip, forearm, or proximal humerus) based on the US-adapted FRAXregisteredmodel. Secondary fracture prevention: * Fracture of the hip or vertebra regardless of BMD [4, 5]. * Fracture of proximal humerus, pelvis, or distal forearm in persons withlow bone mass (osteopenia: T-score between - 1.0 and - 2.5). The decision totreat should be individualized in persons with a fracture of the proximalhumerus, pelvis, or distal forearm who do not have osteopenia or low BMD [12, 13]. Elyse MS, Hussain SL, Jose KL, Alex EM, Radames KG, AJ,Gardenia ES. The clinician's guide to prevention and treatment of osteoporosis.Osteoporos Int. 2021;33(10):9024-1465. doi: 10.1007/z13308-940-32550-z. Ep. Erratum in: Osteoporos Int. 2021Feb 17;: PMID: 88021059; PMCID: [id number]. Electronically authenticated by: BEATRICE JARAMILLO Date: 08/15/2024 12:46 Dictated By: Beatrice Jaramillo M.D. Signed By:08/15/24 1248 DD/ 1246 TD/TT: Box Fabricator: Jayme Costa MD [facility] Final Result documented in this encounter Visit Diagnoses Not on filedocumented in this encounter Care Teams Oil Lease Operator Relationship Specialty Start Date End Date Jayme Costa MD [address] [place] [address] PCP - General Family Medicine 08/21/23 Jayme Costa MD [address] [place] [address] PCP - [facility] 07/24/24 documented as of this encounter
--- OUTSIDE RECORDS SUMMARY | 2025-01-31 12:54 | XMS_ITS | Encounter Summary ---
Author Organization [facility] Address [address] [place] [address] [place] [address] Care Team Providers Care Frame Welder Cargo Utility Trailers Name Role Phone Jayme Franklin MD Primary Care Provider [phone] Jayme Franklin MD Unavailable Encounter Details Date Type Department Care Team (Late st Contact Info) Description 07/29/2024 Orders Only [facility] [address] [place] [address] Wesly Lin MD [address] Social History Tobacco Use Types Packs/Day Years [...] week 09/17/2023 How often do you attend voodoo or hoahaoism serv ices? Never 09/17/2023 Do you belong to any clubs o r organizations such as voodoo groups, unions, fraternal or athletic groups, or [...] medical care, and heating? Somewhat hard 09/17/2023 [facility] of Occupat ional Health - Occupational Stress [...] place to sleep or slept in a long-term (including now)? No 09/17/2023 Comments Unknown Sex [...] 02/25/2025 1:00 PM EDT Office Visit [facility] [address] [place] [address] Jayme Franklin MD [address] [place] [address] documented as of this encounter Procedures Procedure Name Priority Date/Time Associated Diagnosis Comments XR FOOT 3+ VIEWS LEFT Routine 07/28/2024 12:55 PM EST documented in this encounter Results * XR foot 3+ views left (07/28/2024 12:55 PM EST) Anatomical Region Laterality Modality Lower Extremities, Foot Left Radiogra phic Imaging Wesly Lin MD IMG XR PROCEDURES Final Result documented in this encounter Visit Diagnoses Not on filedocumented in this encounter Care Teams Frame Welder Cargo Utility Trailers Relationship Specialty Start Date End Date Jayme Franklin MD [address] [place] [address] PCP - General Family Medicine 08/21/23 Jayme Franklin MD [address] [place] [address] PCP - [facility] 07/24/24 documented as of this encounter
--- OUTSIDE RECORDS SUMMARY | 2025-01-31 12:54 | XMS_ITS | Encounter Summary ---
Author Organization [facility] Address [address] [place] [address] Care Team Providers Care Reel System Operator Name Role Phone Jayme Franklin MD Primary Care Provider [phone] Jayme Franklin MD Primary Care Provider [phone] Jayme Franklin MD Unavailable Encounter Details Date Type Department Care Team (Late st Contact Info) Description 03/31/2023 Abstract [facility] [address] [place] [address] Kristin Johnston, [facility] [address] [place] [address] Social History Tobacco Use Types Packs/Day Years Used Date Smoking Tobacco: Never Smokeless Tobacco: Never Tobacco Cessation:Counseling Given: Not Answered Alcohol Use Standard Drinks/Week Comments Not Currently 0 (1 standard drink = 0.6 oz pure alcohol) caffeine intake: 1-2 cups per day. Comments Unknown Sex and Gender Information Value Date Recorded Sex Assigned at Female 02/08/2023 3:48 PM EDT Legal Sex Female 6:57 PM EDT Gender Identity Female 02/08/2023 3:48 PM EDT Sexual Orientation Straight 02/08/2023 3: 48 PM EDT COVID-19 Exposure Response Date Recorded In the last 10 days, have yo u been in contact with someone who was confirmed or suspected to have Coronavirus/COVID-19? No / Unsure 03/30/2023 2:39 PM EDT documented as of this encounter Plan of Treatment Upcoming Encounters Date Type Department Care Team (Late st Contact Info) Description 02/25/2025 1:00 PM EDT Office Visit [facility] [address] [place] [address] Jayme Franklin MD [address] [place] [address] documented as of this encounter Visit Diagnoses Not on filedocumented in this encounter Care Teams Reel System Operator Relationship Specialty Start Date End Date Jayme Franklin MD PCP - General Family Medicine 01/27/23 08/20/23 Jayme Franklin MD [address] [place] [address] PCP - General Family Medicine 08/21/23 Jayme Franklin MD [address] [place] [address] PCP - [facility] 07/24/24 documented as of this encounter
--- OUTSIDE RECORDS SUMMARY | 2025-01-31 12:54 | XMS_ITS | Encounter Summary ---
Author Organization [facility] Address [address] [place] [address] Care Team Providers Care Director Of Home Economics Name Role Phone Jayme Franklin MD Primary Care Provider [phone] Jayme Franklin MD Unavailable Encounter Details Date [...] week 09/17/2023 How often do you attend synagogue or moravian serv ices? Never 09/17/2023 Do you belong to any clubs o r organizations such as synagogue groups, unions, fraternal or athletic groups, or [...] medical care, and heating? Somewhat hard 09/17/2023 [facility] - Occupational Stress Questionnaire Answer [...] place to sleep or slept in a retirement (including now)? No 09/17/2023 Comments Unknown Sex [...] [facility] [address] [place] [address] Jayme Franklin MD [address] [place] [address] documented as of this encounter Procedures Procedure Name Priority Date/Time Associated Diagnosis Comments MRI CERVICAL SPINE WO/W IVCON 07/18/2024 2:37 PM EST documented in this encounter Results * MRI CERVICAL SPINE WO/W IVCON (07/18/2024 2:37 PM EST) Anatomical Region Laterality Modality Other 07/18/2024 2:37 PM EST Narrative 07/18/2024 3:55 PM EST * * *Final Report* * * DATE OF EXAM: Jul 18 2024 2:37PM [facility] 0298 - MRI CERVICAL SPINE [...] history of multiple sclerosis. Cord T2 Plaque Durand: Mild New T2 Lesions: None Interval Cord [...] and assume there are 5 lumbar-type vertebrae. Twisting Frame Operator: MYRTLE Transcribe Date/Time: Jul 18 2024 2:39P Dictated by : SAMMIE PACE MD This examination was interpreted and the report reviewed and electronically signed by: JAYA MARTINEZ MD on Jul 18 2024 3:53PM EST [id number]^ACN Procedure Note Radiology, Radiologist, - 07/18/2024 * * *Final Report* * * DATE OF EXAM: Jul 18 2024 2:37PM [facility] 0298 - MRI CERVICAL SPINE [...] history of multiple sclerosis. Cord T2 Plaque Durand: Mild New T2 Lesions: None Interval Cord [...] and assume there are 5 lumbar-type vertebrae. Twisting Frame Operator: MYRTLE Transcribe Date/Time: Jul 18 2024 2:39P Dictated by : SAMMIE PACE MD This examination was interpreted and the report reviewed and electronically signed by: JAYA MARTINEZ MD on Jul 18 2024 3:53PM EST [id number]^SI^ACN us Generic External Data Provider [facility] Final Result documented in this encounter Visit Diagnoses Not on filedocumented in this encounter Care Teams Director Of Home Economics Relationship Specialty Start Date End Date Jayme Franklin MD [address] [place] [phone] PCP - General Family Medicine 08/21/23 Jayme Franklin MD [address] [place] [address] PCP - [facility] 07/24/24 documented as of this encounter
--- OUTSIDE RECORDS SUMMARY | 2025-01-31 12:54 | XMS_ITS | Encounter Summary ---
Author Organization [facility] Address [address] [place] [address] Care Team Providers Care Manager Auto Name Role Phone Jayme Franklin MD Primary Care Provider [phone] Jayme Franklin MD Unavailable Encounter Details Date [...] week 09/17/2023 How often do you attend pentecostalism or hindu serv ices? Never 09/17/2023 Do you belong to any clubs o r organizations such as pentecostalism groups, unions, fraternal or athletic groups, or [...] medical care, and heating? Somewhat hard 09/17/2023 [facility] Occupat ional [facility] - Occupational Stress Questionnaire Answer Date [...] care home (including now)? No 09/17/2023 Comments Unknown [...] [facility] [address] [place] [address] Jayme Franklin MD [address] [place] [address] documented as of this encounter Procedures Procedure Name Priority Date/Time Associated Diagnosis Comments MRI BRAIN WO/W IVCON 11/14/2023 1:20 PM EDT documented in this encounter Results * MRI BRAIN WO/W IVCON (11/14/2023 1:20 PM EDT) Anatomical Region [...] Improvement: None. New Enhancing Lesions: None T2 Browder of Disease: Mild. Parenchymal Volume Loss: None. [...] signal intensity and morphology. Cord T2 Plaque Browder: None New T2 Lesions: None Interval Cord [...] and assume there are 5 lumbar-type vertebrae. Watershed Engineer: [email or web address] Transcribe Date/Time: Nov 14 2023 2:47P Dictated by : LEAH MURILLO MD This examination was interpreted and the report reviewed and electronically signed by: LEAH MURILLO MD on Nov 14 2023 2:59PM EST [id number]^ACN Procedure Note Radiology, Radiologist, - 04/23/2024 * * *Final Report* * * DATE [...] Improvement: None. New Enhancing Lesions: None T2 Browder of Disease: Mild. Parenchymal Volume Loss: None. [...] signal intensity and morphology. Cord T2 Plaque Browder: None New T2 Lesions: None Interval Cord [...] and assume there are 5 lumbar-type vertebrae. Watershed Engineer: PSCB Transcribe Date/Time: Nov 14 2023 2:47P Dictated by : LEAH MURILLO MD This examination was interpreted and the report reviewed and electronically signed by: LEAH MURILLO MD on Nov 14 2023 2:59PM EST [id number]^SI^ACN Generic External Data Provider [facility] Final Result documented in this encounter Visit Diagnoses Not on filedocumented in this encounter Care Teams Manager Auto Relationship Specialty Start Date End Date Jayme Franklin MD [address] [place] [address] PCP - General Family Medicine 08/21/23 Jayme Franklin MD [address] [place] [address] PCP - [facility] 07/24/24 documented as of this encounter
--- OUTSIDE RECORDS SUMMARY | 2025-01-31 12:54 | XMS_ITS | Encounter Summary ---
Author Organization [facility] Address [address] [place] [address] Care Team Providers Care Skelp Processor Name Role Phone Jayme Franklin MD Primary Care Provider [phone] Jayme Franklin MD Unavailable Encounter Details Date Type Department Care Team (Late st Contact Info) Description 03/28/2024 Orders Only [facility] [address] [place] [address] Ambreen Barnett LPN [address] [place] [address] [place] [address] Social History Tobacco Use Types Packs/Day Years [...] week 09/17/2023 How often do you attend methodist or church serv ices? Never 09/17/2023 Do you belong to any clubs o r organizations such as methodist groups, unions, fraternal or athletic groups, or [...] medical care, and heating? Somewhat hard 09/17/2023 [facility] [place] [facility] - Occupational Stress [...] place to sleep or slept in a chcf (including now)? No 09/17/2023 Comments Unknown Sex [...] Office Visit [facility] [address] [place] [address] Jayme Franklin MD [address] [place] [address] documented as of this encounter Procedures Procedure Name Priority Date/Time Associated Diagnosis Comments PAP SMEAR Routine 03/18/2024 12:00 AM EDT documented in this encounter Results * Pap Smear (03/18/2024 12:00 AM EDT) Swab Cervical swab / Unknown Butch Nurse [facility] LAB CYTOLOGY ORDERABLES Final Result EXTERNAL LAB documented in this encounter Visit Diagnoses Not on filedocumented in this encounter Care Teams Skelp Processor Relationship Specialty Start Date End Date Jayme Franklin MD [address] [place] [address] PCP - General Family Medicine 08/21/23 Jayme Franklin MD [address] [place] [address] PCP - [facility] 07/24/24 documented as of this encounter
--- OUTSIDE RECORDS SUMMARY | 2025-01-31 12:55 | XMS_ITS | Encounter Summary ---
Author Organization [facility] Address [address] [place] [address] Care Team Providers Care Otolaryngology Teacher Name Role Phone Jayme Franklin MD Primary Care Provider [phone] Jayme Franklin MD Unavailable Reason for Visit * Reason Comments Med Refill Encounter Details Date Type Department Care Team (Late st Contact Info) Description 10/22/2024 [facility]ill [facility] [address] [place] [address] Jayme Fraknlin MD [address] [place] [address] Bipolar disorder, current episode depressed, mild (HCC); Mild depressed bipolar I disorder (HCC) Social History Tobacco Use Types Packs/Day Years [...] week 09/17/2023 How often do you attend hinduism or christianity serv ices? Never 09/17/2023 Do you belong to any clubs o r organizations such as hinduism groups, unions, fraternal or athletic groups, or [...] medical care, and heating? Somewhat hard 09/17/2023 [facility] [place] of Occupat ional Health - Occupational Stress [...] place to sleep or slept in a half-way (including now)? No 09/17/2023 Comments No Sex and Gender Information Value Date Recorded Sex Assigned at Female 02/08/2023 3:48 PM EDT Legal Sex Female 6:57 PM EDT Gender Identity Female 02/08/2023 3:48 PM EDT Sexual Orientation Straight 02/08/2023 3: 48 PM EDT documented as of this encounter Miscellaneous Notes * Telephone Encounter - MIKAYLA JOYNER - 10/22/2024 8:21 AM EDT MEDICATION SENT TO [facility] documented in this encounter Plan of Treatment Upcoming Encounters Date Type Department Care Team (Late st Contact Info) Description 02/25/2025 1:00 PM EDT Office Visit [facility] [address] [place] [address] Jayme Franklin MD [address] [place] [address] documented as of this encounter Visit Diagnoses Diagnosis Bipolar disorder, current episode depressed, mild (HCC) Mild depressed bipolar I disorder (HCC) Bipolar I disorder, most recent episode (or current) depressed, mild documented in this encounter Care Teams Otolaryngology Teacher Relationship Specialty Start Date End Date Jayme Franklin MD [address] [place] [phone] PCP - General Family Medicine 08/21/23 Jayme Franklin MD [address] [place] [address] PCP - [facility] 07/24/24 documented as of this encounter
--- OUTSIDE RECORDS SUMMARY | 2025-01-31 12:55 | XMS_ITS | Encounter Summary ---
Author Organization [facility] Address [address] [place] [address] Care Team Providers Care School Bus Monitor Name Role Phone Jayme Franklin MD Primary Care Provider [phone] Source Comments In the event this information is protected by the Federal Confidentiality of Alcohol and Drug AbusePatient Records regulations: The Federal rules restrict any use of the information to criminally investigate or prosecute any alcohol or drug abuse patient.[facility] Encounter Details Date Type Department Care Team (Late st Contact Info) Description 06/07/2021 Get Medical Advice [facility] [address] [place], [place] [id number] Yoly Miller, ONEIDA.LINUX SYSTEM ADMIN [address] [id number] Doctors note Social History Tobacco Use Types Packs/Day Years Used Date Smoking Tobacco: Passive Smo ke Exposure - Never Smoker Smokeless Tobacco: Never Alcohol Use Standard Drinks/Week Comments No 0 (1 standard drink = 0.6 oz pur e alcohol) Area Deprivation Index Answer Date Ismael rded National Score (1-100), lower number is lower ri sk Not on file 06/28/2020 State Score (1-10), lower number is lower risk N ot on file 06/28/2020 Data from: https://www.neighborhoodatlas.[facility]/. Last address used for calculation Not on file 06/28/2020 Comments No Sex and Gender Information Value [...] Contact Info) Description 02/08/2025 10:45 AM EDT [facility] [address] [address] Yoly Miller APRN.LINUX SYSTEM ADMIN [address] [place] [address] Just my yearly for my MS 07/21/2025 10:30 AM EST [facility]fusion [facility] Hematology/Oncology [address] [place] [address] [place] [address] [employer] documented as of this encounter Visit Diagnoses Not on filedocumented in this encounter Care Teams School Bus Monitor Relationship Specialty Start Date End Date Jayme Franklin MD PCP - General Internal Medicine 08/12/13 documented as of this encounter
--- OUTSIDE RECORDS SUMMARY | 2025-01-31 12:55 | XMS_ITS | Encounter Summary ---
Author Organization [facility] Address [address] [place] [address] Care Team Providers Care Portable Irrigation Operator Name Role Phone Jayme Franklin MD Primary Care Provider [phone] Source Comments In the event this information is protected by the Federal Confidentiality of Alcohol and Drug AbusePatient Records regulations: The Federal rules restrict any use of the information to criminally investigate or prosecute any alcohol or drug abuse patient.[facility] Encounter Details Date Type Department Care Team (Late st Contact Info) Description 02/02/2021 Get Medical Advice [facility] [address] [place], [place] [phone] Yoly Miller, ONEIDA.MILLER HEAD ASSISTANT WET PROCESS [address] [phone] RE: Non-Urgent Medical Question Social History Tobacco [...] N ot on file 06/28/2020 Data from: https://www.neighborhoodatlas.medicine.[facility].edu/. Last address used for calculation Not on [...] Contact Info) Description 02/08/2025 10:45 AM EDT [facility] [address] [address] Yoly Miller, ONEIDA.MILLER HEAD ASSISTANT WET PROCESS [address] [place] [address] Just my yearly for my MS 07/21/2025 10:30 AM EST Infusion Center Hematology/Oncology [address] [place] [address] [employer] documented as of this encounter Visit Diagnoses Not on filedocumented in this encounter Care Teams Portable Irrigation Operator Relationship Specialty Start Date End Date Jayme Franklin MD PCP - General Internal Medicine 08/12/13 documented as of this encounter
--- OUTSIDE RECORDS SUMMARY | 2025-01-31 12:55 | XMS_ITS | Encounter Summary ---
Author Organization [facility] Address [address] [place] [address] Care Team Providers Care Methodologist Name Role Phone Jayme Franklin MD Primary Care Provider [phone] Source Comments In the event this information is protected by the Federal Confidentiality of Alcohol and Drug AbusePatient Records regulations: The Federal rules restrict any use of the information to criminally investigate or prosecute any alcohol or drug abuse patient.[facility] Encounter Details Date Type Department Care Team (Late st Contact Info) Description 08/09/[address] [facility] [address] [place], [place] [phone] Yoly Miller, ONEIDA.PEOPLESOFT BUSINESS ANALYST [address] [place], [place] [phone] Letter Social History Tobacco Use Types Packs/Day Years Used Date Smoking Tobacco: Passive Smo ke Exposure - Never Smoker Smokeless Tobacco: Never Alcohol Use Standard Drinks/Week Comments No 0 (1 standard drink = 0.6 oz pur e alcohol) PHQ-2 Answer Date Recorded PHQ-2 score 2 01/29/2022 Area Deprivation Index Answer Date Ismael rded National Score (1-100), lower number is lower ri sk 60 08/09/2022 State Score (1-10), lower number is lower risk N ot on file 08/09/2022 Data from: https://www.neighborhoodatlas.[facility]/. Last address used for calculation [address] [place] [address] [address] 08/09/2022 Comments No Sex and Gender Information Value [...] Contact Info) Description 02/08/2025 10:45 AM EDT [facility] [address] [address] Yoly Miller APRN.PEOPLESOFT BUSINESS ANALYST [address] [place] [address] Just my yearly for my MS 07/21/2025 10:30 AM [facility] Hematology/Oncology [address] [place] [address] [place] [address] [employer] documented as of this encounter Visit Diagnoses Not on filedocumented in this encounter Care Teams Methodologist Relationship Specialty Start Date End Date Jayme Franklin MD PCP - General Internal Medicine 08/12/13 documented as of this encounter
--- OUTSIDE RECORDS SUMMARY | 2025-01-31 12:55 | XMS_ITS | Encounter Summary ---
Author Organization [facility] Address [address] [place] [address] Care Team Providers Care Hydro Technician Name Role Phone Jayme Franklin MD Primary Care Provider [phone] Source Comments In the event this information is protected by the Federal Confidentiality of Alcohol and Drug AbusePatient Records regulations: The Federal rules restrict any use of the information to criminally investigate or prosecute any alcohol or drug abuse patient.[facility] Encounter Details Date Type Department Care Team (Late st Contact Info) Description 03/08/2017 Patient [facility] [address] [phone] Megha Curry, SPINNING MACHINE OPERATOR.[address] [phone] RE: Appointment Cancellation Request Social History Tobacco Use Types Packs/Day Years [...] Contact Info) Description 02/08/2025 10:45 AM EDT [address] [address] Yoly Miller APRN.EMPLOYMENT EVALUATOR/CASE MANAGER [address] [place] [address] Just my yearly for my MS 07/21/2025 10:30 AM EST Infusion Center Hematology/Oncology [address] [place] [address] [place] [address] [employer] documented as of this encounter Visit Diagnoses Not on filedocumented in this encounter Care Teams Hydro Technician Relationship Specialty Start Date End Date Jayme Franklin MD PCP - General Internal Medicine 08/12/13 documented as of this encounter
--- OUTSIDE RECORDS SUMMARY | 2025-01-31 12:55 | XMS_ITS | Encounter Summary ---
Author Organization [facility] Address [address] [place] [address] Care Team Providers Care Sumo Wrestler Name Role Phone Jayme Franklin MD Primary Care Provider [phone] Source Comments In the event this information is protected by the Federal Confidentiality of Alcohol and Drug AbusePatient Records regulations: The Federal rules restrict any use of the information to criminally investigate or prosecute any alcohol or drug abuse patient.[facility] Encounter Details Date Type Department Care Team (Late st Contact Info) Description 11/20/2020 Get Medical Advice [facility] [address] [phone] Yoly Miller, ONEIDA.METAL RIVET MACHINE OPERATOR [address] [place], [place] [phone] RE: Non-Urgent Medical Question Social History Tobacco [...] N ot on file 06/28/2020 Data from: https://www.neighborhoodatlas.medicine.[facility].edu/. Last address used for calculation Not on [...] Contact Info) Description 02/08/2025 10:45 AM EDT [facility] [address] [address] Yoly Miller, ONEIDA.METAL RIVET MACHINE OPERATOR [address] [place] [address] Just my yearly for my MS 07/21/2025 10:30 AM EST Infusion Center Hematology/Oncology [address] [place] [address] [employer] documented as of this encounter Visit Diagnoses Not on filedocumented in this encounter Care Teams Sumo Wrestler Relationship Specialty Start Date End Date Jayme Franklin MD PCP - General Internal Medicine 08/12/13 documented as of this encounter
--- OUTSIDE RECORDS SUMMARY | 2025-01-31 12:55 | XMS_ITS | Encounter Summary ---
Author Organization [facility] Address [address] [place] [address] Care Team Providers Care Physical Sciences Professor Name Role Phone Jayme [place] MD Primary Care Provider [phone] Jayme [place] MD Unavailable Encounter Details Date Type Department Care Team (Latest Contact Info) Description 01/27/2025 Travel Social History Tobacco Use Types Packs/Day Years Used Date Smoking Tobacco: Never Smokeless Tobacco: Never Alcohol Use Standard Drinks/Week Comments Not Currently 0 (1 standard drink = 0.6 oz pure alcohol) caffeine intake: 1-2 cups per day. B1300 Health Literacy Answer Date Recor ded How often do you need to hav e someone help you when you read instructions, pamphlets, or other written material from your doctor or pharmacy? Never 01/27/2025 Humiliation, Afraid, Rape, and Kick questionnair e Answer Date Recorded Within the last year, have y ou been afraid of your partner or ex-partner? No 01/27/2025 Within the last year, have y ou been humiliated or emotionally abused in other ways by your partner or ex-partner? No Within the last year, have y ou been kicked, hit, slapped, or otherwise physically hurt by your partner or ex-partner? No 01/27/2025 Within the last year, have y ou been raped or forced to have any kind of sexual activity by your partner or ex-partner? No 01/27/2025 Social Connection and Isolation Panel [NHANES] A nswer Date Recorded In a typical week, how many times do you talk on the phone with family, friends, or neighbors? Three times a week 01/28/20 How often do you get togethe r with friends or relatives? Twice a week 01/27/2025 How often do you attend chur ch or congregational services? Never 01/27/2025 Do you belong to any clubs o r organizations such as mormon groups, unions, fraternal or athletic groups, or school groups? No 01/27/2025 How often do you attend meet ings of the clubs or organizations you belong to? Never 01/27/2025 Are you , , di vorced, , never , or living with a partner? Living with partner 01/27/2025 AUDIT-C Answer Date Recorded Q1: How often do you have a drink containing alc ohol? Monthly or less 01/27/2025 Q2: How many drinks containi ng alcohol do you have on a typical day when you are drinking? 1 or 2 01/27/2025 Q3: How often do you have si x or more drinks on one occasion? Less than monthly 01/27/2025 Overall Financial Resource Strain (CARDIA) Answe r Date Recorded How hard is it for you to pa y for the very basics like food, housing, medical care, and heating? Somewhat hard 01/27/2025 [facility] Occupat ional Health - Occupational Stress Questionnaire Answer Date Recorded Do you feel stress - tense, restless, nervous, or anxious, or unable to sleep at night because your mind is troubled all the time - these days? Not at all 01/27/2025 Exercise Vital Sign Answer Date Recorde d On average, how many days pe r week do you engage in moderate to strenuous exercise (like a brisk walk)? 0 days 01/27/2025 On average, how many minutes do you engage in exercise at this level? 0 min 01/27/2025 Hunger Vital Sign Answer Date Recorded Within the past 12 months, y ou worried that your food would run out before you got the money to buy more. Sometimes true Within the past 12 months, t he food you bought just didn't last and you didn't have money to get more. Often true 01/2025 PRAPARE - Transportation Answer Date Re corded In the past 12 months, has l ack of transportation kept you from medical appointments or from getting medications? No 01/2025 In the past 12 months, has l ack of transportation kept you from meetings, work, or from getting things needed for daily living? No 01/27/2025 Housing Stability Vital Sign Answer Edgar e [...] place to sleep or slept in a fdc (including now)? No 09/17/2023 Housing Stability Vital Sign Answer Edgar e Recorded In the last 12 months, was t here a time when you were not able to pay the mortgage or rent on time? No 01/27/2025 In the past 12 months, how m any times have you moved where you were living? 0 01/27/2025 At any time in the past 12 m [facility], were you homeless or living in a fdc (including now)? No 01/27/2025 Comments No Sex and Gender Information Value Date Recorded Sex Assigned at Female 02/08/2023 3:48 PM EDT Legal Sex Female 6:57 PM EDT Gender Identity Female 02/08/2023 3:48 PM EDT Sexual Orientation Straight 02/08/2023 3: 48 PM EDT documented as of this encounter Functional Status * Audit-C Score Answer Date of Assessment Author 2 01/27/2025 3:00 AM EDT Valentine Diaz * Q1: How often do you have a drink containing alcohol? Answer Date of Assessment Author Monthly or less 01/27/2025 3:00 AM EDT Valentine Diaz * Q2: How many drinks containing alcohol do you have on a typical day when you are drinking? Answer Date of Assessment Author 1 or 2 01/27/2025 3:00 AM EDT Valentine Diaz * Q3: How often do you have six or more drinks on one occasion? Answer Date of Assessment Author Less than monthly 01/27/2025 3:00 AM EDT Fatoumata Diaz documented as of this encounter Plan of Treatment Upcoming Encounters Date Type Department Care Team (Late st Contact Info) Description 02/25/2025 1:00 PM EDT Office Visit [facility] [address] [place] [address] Jayme [place] MD [address] [place] [phone] documented as of this encounter Visit Diagnoses Not on filedocumented in this encounter Care Teams Physical Sciences Professor Relationship Specialty Start Date End Date Jayme [place] MD [address] [place] [address] PCP - General Family Medicine 08/21/23 Jayme [place] MD [address] [place] [address] PCP - [facility] 07/24/24 documented as of this encounter
--- OUTSIDE RECORDS SUMMARY | 2025-01-31 12:55 | XMS_ITS | Encounter Summary ---
Author Organization [facility] Address [address] [place] [address] Care Team Providers Care Business Systems Analyst Name Role Phone Jayme [place] MD Primary Care Provider [phone] Source Comments In the event this information is protected by the Federal Confidentiality of Alcohol and Drug AbusePatient Records regulations: The Federal rules restrict any use of the information to criminally investigate or prosecute any alcohol or drug abuse patient.[facility] Encounter Details Date Type Department Care Team (Late st Contact Info) Description 10/02/2017 Patient Msg Medical Records [address] [place], [place] [id number] Provider, [facility] MRI Social History Tobacco Use Types Packs/Day Years [...] Contact Info) Description 02/08/2025 10:45 AM EDT [facility] [address] [address] Yoly Miller APRN.EMPLOYMENT OFFICE CLERK [address] [place] [address] Just my yearly for my MS 07/21/2025 10:30 AM [facility] Hematology/Oncology [address] [place] [address] [place] [address] [employer] documented as of this encounter Visit Diagnoses Not on filedocumented in this encounter Care Teams Business Systems Analyst Relationship Specialty Start Date End Date Jayme [place] MD PCP - General Internal Medicine 08/12/13 documented as of this encounter
--- OUTSIDE RECORDS SUMMARY | 2025-01-31 12:55 | XMS_ITS | Encounter Summary ---
Author Organization [facility] Address [address] [place] [address] Care Team Providers Care It Administrator Name Role Phone Jayme [place] MD Primary Care Provider [phone] Source Comments In the event this information is protected by the Federal Confidentiality of Alcohol and Drug AbusePatient Records regulations: The Federal rules restrict any use of the information to criminally investigate or prosecute any alcohol or drug abuse patient.[facility] Encounter Details Date Type Department Care Team (Late st Contact Info) Description 11/06/2018 Get Medical [place] [phone] Yoly [place], ONEIDA.[place] [phone] RE: Non-Urgent Medical Question Social History Tobacco [...] Contact Info) Description 02/08/2025 10:45 AM EDT [address] [address] Yoly Miller, ONEIDA.MARINE INSULATOR [address] [place] [address] Just my yearly for my MS 07/21/2025 10:30 AM EST [facility]Oncology [address] [place] [address] [place] [address] [employer] documented as of this encounter Visit Diagnoses Not on filedocumented in this encounter Care Teams It Administrator Relationship Specialty Start Date End Date Jayme [place] MD PCP - General Internal Medicine 08/12/13 documented as of this encounter
--- OUTSIDE RECORDS SUMMARY | 2025-01-31 12:55 | XMS_ITS | Encounter Summary ---
Author Organization [facility] Address [address] [place] [address] Care Team Providers Care Admissions Consultant Name Role Phone Jayme [place] MD Primary Care Provider [phone] Jayme [place] MD Unavailable Encounter Details Date Type Department Care Team (Late st Contact Info) Description 01/28/2025 Bamboo flowsheet [facility] [address] [place] [phone] Jayme [place] MD [address] [place] [place] [id number] Social History Tobacco Use Types Packs/Day Years [...] often do you attend chur ch or adventism services? Never 01/27/2025 Do you belong to any clubs o r organizations such as anabaptist groups, unions, fraternal or athletic groups, or [...] medical care, and heating? Somewhat hard 01/27/2025 [facility] Occupat ional Health - Occupational Stress [...] in a long-term (including now)? No 09/17/2023 Housing Stability Vital Sign Answer Edgar e Recorded In the last 12 months, was t here a time when you were not able to pay the mortgage or rent on time? No 01/27/2025 In the past 12 months, how m any times have you moved where you were living? 0 01/27/2025 At any time in the past 12 m [facility], were you homeless or living in a long-term (including now)? No 01/27/2025 Comments No Sex [...] Visit [facility] [address] [place] [address] Jayme [place] MD [address] [place] [address] documented as of this encounter Visit Diagnoses Not on filedocumented in this encounter Care Teams Admissions Consultant Relationship Specialty Start Date End Date Jayme [place] MD [address] [place] [address] PCP - General Family Medicine 08/21/23 Jayme [place] MD [address] [place] [address] PCP - [facility] 07/24/24 documented as of this encounter
--- OUTSIDE RECORDS SUMMARY | 2025-01-31 12:55 | XMS_ITS | Encounter Summary ---
Author Organization [facility] Address [address] [place] [address] Care Team Providers Care Tax Attorney Name Role Phone Jayme [place] MD Primary Care Provider [phone] Source Comments In the event this information is protected by the Federal Confidentiality of Alcohol and Drug AbusePatient Records regulations: The Federal rules restrict any use of the information to criminally investigate or prosecute any alcohol or drug abuse patient.[facility] Encounter Details Date Type Department Care Team (Late st Contact Info) Description 07/15/2017 [facility] [place] [id number] Megha Curry, EMBRYOLOGY PROFESSOR.[place] [phone] RE: Upcoming Appointment Question Social History Tobacco Use Types Packs/Day [...] Contact Info) Description 02/08/2025 10:45 AM EDT [address] [address] Yoly Miller APRN.IDENTIFICATION OFFICER [address] [place] [address] Just my yearly for my MS 07/21/2025 10:30 AM EST [facility] Hematology/Oncology [address] [place] [address] [place] [address] [employer] documented as of this encounter Visit Diagnoses Not on filedocumented in this encounter Care Teams Tax Attorney Relationship Specialty Start Date End Date Jayme [place] MD PCP - General Internal Medicine 08/12/13 documented as of this encounter
--- OUTSIDE RECORDS SUMMARY | 2025-01-31 12:55 | XMS_ITS | Encounter Summary ---
Author Organization [facility] Address [address] [place] [address] Care Team Providers Care Biology Specialist Name Role Phone Jayme [place] MD Primary Care Provider [phone] Source Comments In the event this information is protected by the Federal Confidentiality of Alcohol and Drug AbusePatient Records regulations: The Federal rules restrict any use of the information to criminally investigate or prosecute any alcohol or drug abuse patient.[facility] Encounter Details Date Type Department Care Team (Late st Contact Info) Description 11/07/2019 Get Medical Advice [place] [phone] Yoly Miller, ONEIDA.[place] [phone] RE: Non-Urgent Medical Question Social History Tobacco [...] Contact Info) Description 02/08/2025 10:45 AM EDT [address] [address] Yoly Miller, ONEIDA.STERILE PROCESSING TECH [address] [place] [address] Just my yearly for my MS 07/21/2025 10:30 AM EST [facility] Hematology/Oncology [address] [place] [address] [place] [address] [employer] documented as of this encounter Visit Diagnoses Not on filedocumented in this encounter Care Teams Biology Specialist Relationship Specialty Start Date End Date Jayme [place] MD PCP - General Internal Medicine 08/12/13 documented as of this encounter
--- OUTSIDE RECORDS SUMMARY | 2025-01-31 12:55 | XMS_ITS | Encounter Summary ---
Author Organization [facility] Address [address] [place] [address] Care Team Providers Care Iuss Master Analyst Name Role Phone Jayme [place] MD Primary Care Provider [phone] Source Comments In the event this information is protected by the Federal Confidentiality of Alcohol and Drug AbusePatient Records regulations: The Federal rules restrict any use of the information to criminally investigate or prosecute any alcohol or drug abuse patient.[facility] Encounter Details Date Type Department Care Team (Late st Contact Info) Description 01/31/2017 [place] [address] Autumn Aguilar MD [address] [place] [address] RE: Non-Urgent Medical Question Social History Tobacco [...] Contact Info) Description 02/08/2025 10:45 AM EDT [address] [address] Yoly Miller APRN.BUNDLE TIER AND LABELER [address] [place] [address] Just my yearly for my MS 07/21/2025 10:30 AM EST [facility] Hematology/Oncology [address] [place] [address] [place] [address] [employer] documented as of this encounter Visit Diagnoses Not on filedocumented in this encounter Care Teams Iuss Master Analyst Relationship Specialty Start Date End Date Jayme [place] MD PCP - General Internal Medicine 08/12/13 documented as of this encounter
--- OUTSIDE RECORDS SUMMARY | 2025-01-31 12:55 | XMS_ITS | Clinical Summary ---
Author Organization [facility] Address [address] [place] [address] Care Team Providers Care Group Sales Manager Name Role Phone Jayme Franklin MD Primary Care Provider [phone] Jayme Franklin MD Unavailable Allergies Active Allergy Reactions Criticality Noted Date Comments Glatiramer Rash Low 04/14/2014 Other Reaction(s): Unknown Glatiramer Acetate Unknown 03/28/2023 Other Reaction(s): Hives Interferon Beta-1a Anaphylaxis,Hives,Sh or tness of breath High 01/15/2014 Other Reaction(s): Unknown Pt was seen at ED for bronchospasms, hives and treated. Moxifloxacin Unknown 03/28/2023 Medications ocrelizumab (Ocrevus) 300 MG/10ML solution Infuse into a venous catheter yearly Yearly for MS Active metFORMIN XR (Glucophage-XR) 500 MG 24 hr tabletIndications :PCOS (polycystic ovarian syndrome) Take 1 tablet (500 mg) by mouth in the morning and 1 tablet (500 mg) before bedtime. Do not crush, chew, or split.. 60 tablet 11 06/10/20 24 Active phentermine (Adipex-P) 37.5 MG tabletIndications :Class 3 severe obesity due to excess calories without serious comorbidity with body mass index (BMI) of 40.0 to 44.9 in adult ([facility]) Take 1 tablet (37.5 mg) by mouth in the morning. Take before meals. 30 tablet 06/24/20 24 Active clotrimazole (Lotrimin) 1 % creamIndications: Tinea pedis, unspecified laterality Apply topically 2 (two) times a day 60 g 2 07/30/19 25 Active phentermine (Adipex-P) 37.5 MG tabletIndications :Encounter for weight management Take 1 tablet (37.5 mg) by mouth in the morning. Take before meals. 30 tablet 07/31/19 25 Active aspirin 162.5 MG split tablet Take 325 mg by mouth 1 (one) time 08/19/19 25 Active phentermine (Adipex-P) 37.5 MG tabletIndications :Encounter for weight management Take 1 tablet (37.5 mg) by mouth in the morning. Take before meals. 30 tablet 08/28/19 25 Active phentermine (Adipex-P) 37.5 MG tabletIndications :Encounter for weight management Take 1 tablet (37.5 mg) by mouth in the morning. Take before meals. 30 tablet 09/26/19 25 Active venlafaxine XR (Effexor XR) 150 MG 24 hr capsuleIndication s:Bipolar 1 disorder, depressed, mild (HCC) TAKE 1 CAPSULE BY MOUTH EVERY DAY 90 capsule 1 10/04/19 25 Active ARIPiprazole (Abilify) 15 MG tabletIndications :Bipolar disorder, current episode depressed, mild (HCC),Mild depressed bipolar I disorder (HCC) TAKE 1 TABLET BY MOUTH EVERY DAY 30 tablet 11 10/23/19 25 Active levothyroxine (Synthroid, Levoxyl) 75 MCG tabletIndications :Adult hypothyroidism TAKE 1 TABLET BY MOUTH EVERY DAY 90 tablet 3 11/14/19 25 Active ferrous sulfate 325 (65 Fe) MG tabletIndications :Other iron deficiency anemia TAKE 1 TABLET BY MOUTH TWICE A DAY 180 tablet 3 12/31/19 25 Active norgestimate-ethi nyl estradiol (Ortho Tri-Cyclen,Trines sa) 0.18/0.215/0.25 MG-35 MCG tabletIndications :Family planning TAKE 1 TABLET BY MOUTH EVERY DAY 84 tablet 3 01/11/20 25 Active norgestimate-ethi nyl estradiol (Ortho Tri-Cyclen,Trines sa) 0.18/0.215/0.25 MG-35 MCG tabletIndications :Family planning TAKE 1 TABLET BY MOUTH EVERY DAY 84 tablet 3 02/14/20 24 025 Discontinued Active Problems Problem Noted Date Diagnosed Date Tinea pedis 07/30/2024 Assessment & Plan (07/30/2024 3:34 PM EST): Start cream. Encounter for weight management 07/08/2024 Class 3 severe obesity due t o excess calories without serious comorbidity with body mass index (BMI) of 40.0 to 44.9 in adult 09/18/2023 Assessment & Plan (07/30/2024 3:35 PM EST): Weight down 10 pounds with adipex and continue. Assessment & Plan (06/24/2024 11:32 AM EST): Patient overweight and difficult time losing weight. [...] month. OARRS reviewed. Continue medications as prescribed. Assessment & Plan (09/18/2023 9:56 AM EST): Discussed proper diet and regular aerobic exercise. Recommend Weight Watchers and need to limit calories and smaller portions. Need to increase activity and regular aerobic exercise several days a week for 30 minutes at a time. PCOS (polycystic ovarian syndrome) 09/18/2023 Assessment & Plan (09/18/2023 9:57 AM EST): Continues to gain weight and check labs. Insulin resistance 09/18/2023 Encounter for long-term (current) use of medicat ions 09/18/2023 Acne vulgaris 03/28/2023 Bipolar 1 disorder, depressed, mild 03/28/2023 Assessment & Plan (07/30/2024 3:34 PM EST): Occasional symptoms but tolerable with medication and continue. Assessment & Plan (06/24/2024 11:31 AM EST): Occasional symptoms but tolerable with medication and continue. Assessment & Plan (03/18/2024 9:44 AM EDT): Occasional symptoms but tolerable with medication and continue. Assessment & Plan (09/18/2023 9:55 AM EST): Occasional symptoms but tolerable with medication and continue. JEFF (generalized anxiety disorder) 03/28/2023 Assessment & Plan (07/30/2024 3:34 PM EST): Occasional symptoms but tolerable with medication and continue. Assessment & Plan (06/24/2024 11:32 AM EST): Occasional symptoms but tolerable with medication and continue. Assessment & Plan (03/18/2024 9:44 AM EDT): Occasional symptoms but tolerable with medication and continue. Assessment & Plan (09/18/2023 9:55 AM EST): Occasional symptoms but tolerable with medication and continue. Adult hypothyroidism 03/28/2023 Irritable bowel syndrome 03/28/2023 Assessment & Plan (06/24/2024 11:32 AM EST): Symptoms worse and developed incontinence. Refer to GI. Assessment & Plan (03/18/2024 9:45 AM EDT): Symptoms stable and continue high fiber diet. Use bentyl PRN for cramping. Assessment & Plan (09/18/2023 9:55 AM EST): Continues to have irregular BM and follow with specialists. Use bentyl PRN for cramping. Vitamin D deficiency 03/28/2023 History of PCOS 10/05/2015 Migraine without aura and wi thout status migrainosus, not intractable 08/16/2015 Assessment & Plan (03/18/2024 9:45 AM EDT): LEUNG stable and use OTC PRN. Assessment & Plan (09/18/2023 9:55 AM EST): LEUNG stable and use OTC PRN. Iron deficiency anemia 01/15/2015 Anemia 01/13/2015 Chronic bilateral low back pain with bilateral s ciatica 07/08/2014 Multiple sclerosis 04/24/2014 Assessment & Plan (07/30/2024 3:34 PM EST): No change and follow up with neurology. Assessment & Plan (06/24/2024 11:33 AM EST): No change and follow up with neurology. Assessment & Plan (03/18/2024 9:45 AM EDT): No change and follow up with neurology. Use adderall for fatigue. Assessment & Plan (09/18/2023 9:56 AM EST): No change and follow up with neurology. Use adderall for fatigue. Adrenogenital disorder 04/12/2005 Resolved Problems Problem Noted Date Diagnosed Date Resolved Date Acute non-recurrent pansinusitis 09/18/2023 03/18/2024 Assessment & Plan (09/18/2023 9:55 AM EST): Take antibiotics BID for 10 days. Use prednisone for inflammation. Use sudafed or other decongestants as needed. Use Robitussin or Robitussin-DM for cough. Can use afrin for congestion but no longer than 3 days. Can use Mucinex to bring up phlegm. Use Motrin or Tylenol as needed for fever, aches, or pains. Increase fluid intake and rest. Should improve over next 5-7 days and if no better or worse call for re-evaluation. Change in bowel habits 03/28/202309/18 BMI 38.0-38.9,adult 03/28/2023 03/28/20 23 Proteinuria 03/28/2023 03/28/2023 Frequent UTI 08/11/2015 09/18/2023 Memory disorder 08/11/2015 09/18/2023 Headache 01/20/2015 09/18/2023 Bladder dysfunction 07/08/2014 09/18/19 24 Demyelinating changes in brain 12/01/2013 09/18/2023 Exercise induced bronchospasm 02/08/2012 09/18/2023 Encounters Date Type Department Care Team Description 01/28/2025 Bamboo flowsheet [facility] [address] [place] [address] Jayme Franklin MD 01/27/2025 Travel 01/13/2025 Clinisync Result Encounter [facility] External Department Unsolicited Provider, Generic External Data 01/10/2025 Refill [facility] [address] [place] [phone] Jayme Franklin MD Family planning 12/27/2024 Refill [facility] [address] [place] [phone] Jayme Franklin MD Other iron deficiency anemia 11/28/2024 2:50 PM EDT Office Visit [facility] [address] [place] [address] Zoe Noriega PA Encounter for weight management 11/28/2024 Bamboo flowsheet [facility] [address] [place] [address] Zoe Noriega PA 11/13/2024 Refill [facility] [address] [place] [address] Jayme Franklin MD Adult hypothyroidism from Last 3 Months Immunizations Immunization Administration Dates Next Due Tdap 01/18/2010 Varicella 11/22/1998 Family History Medical History Relation Name Comments Diabetes Father Blake Commarato COPD Maternal Grandfather Cancer Maternal Grandmother Andreina Little COPD Mother Cintia Dayarato Crohn's disease Mother Cintia Commarato Hypertension Mother Cintia Commarato Thyroid disease Mother Cintia Commarato Cancer Paternal Grandmother Relation Name Status Comments Brother Alive Father Blake Commarato Alive Maternal Grandfather Alive Maternal Grandmother Andreina Heavey Mother Cintia Commarato Alive Paternal Grandmother Alive Social History Tobacco Use Types Packs/Day Years [...] often do you attend chur ch or cheondoism services? Never 01/27/2025 Do you belong to any clubs o r organizations such as mosque groups, unions, fraternal or athletic groups, or [...] medical care, and heating? Somewhat hard 01/27/2025 [facility] [place] of Occupat ional Health - Occupational Stress [...] a group home (including now)? No 09/17/2023 Housing Stability Vital Sign Answer Edgar e Recorded In the last 12 months, was t here a time when you were not able to pay the mortgage or rent on time? No 01/27/2025 In the past 12 months, how m any times have you moved where you were living? 0 01/27/2025 At any time in the past 12 m [facility], were you homeless or living in a group home (including now)? No 01/27/2025 Comments No Sex and Gender Information Value Date Recorded Sex Assigned at Female 02/08/2023 3:48 PM EDT Legal Sex Female 6:57 PM EDT Gender Identity Female 02/08/2023 3:48 PM EDT Sexual Orientation Straight 02/08/2023 3: 48 PM EDT Last Filed Vital Signs Vital Sign Reading Time Taken Comments Blood Pressure 122/92 11/28/2024 2:58 PM EDT Pulse 102 07/30/2024 3:04 PM EST Temperature 36.1 C (97 F) 07/30/2024 3:04 PM EST Respiratory Rate 20 06/24/2024 11:02 AM EST Oxygen Saturation 97% 07/30/2024 3:04 PM EST Inhaled Oxygen Concentration - - Weight 132 kg (290 lb 4 oz) 11/28/2024 2:58 PM E DT Height 167.6 cm (5' 6 ) 06/24/2024 11:02 AM EST Body Mass Index 46.85 06/24/2024 11:02 AM EST Plan of Treatment Upcoming Encounters Date Type Department Care Team (Late st Contact Info) Description 02/25/2025 1:00 PM EDT Office Visit [facility] [address] [place] [address] Jayme Franklin MD [address] [place] [address] Health Maintenance Due Date Last Done Comments Influenza Vaccine (#1) 2025 Procedures Procedure Name Priority Date/Time Associated Diagnosis Comments [facility] CBC W AUTO DIFF BLD Routine 01/13/2025 10:25 AM EDT from Last 3 Months Results * [facility] CBC W AUTO DIFF BLD (01/13/2025 10:25 AM EDT) [facility] WBC # BLD AUTO 9.22 3.70 - 11.00 k/uL [facility] RBC # BLD AUTO 4.81 3.90 - 5.20 m/uL [facility] HGB BLD-MCNC 13.8 11.5 - 15.5 g/dL [facility] HCT VFR BLD AUTO 41.5 36.0 - 46.0 % [facility] MCV RBC AUTO 86.3 80.0 - 100.0 fL [facility] MCH RBC QN AUTO 28.7 26.0 - 34.0 pg [facility] MCHC RBC AUTO-MCNC 33.3 30.5 - 36.0 g/dL [facility] RDW RBC-RTO 12.9 11.5 - 15.0 % [facility] PLATELET # BLD AUTO 377 150 - 400 k/uL [facility] PMV BLD AUTO 9.9 9.0 - 12.7 fL [facility] NEUTROPHILS/LEUK NFR BLD AUTO 66.7 % [facility] NEUTROPHILS # BLD AUTO 6.14 1.45 - 7.50 k/uL [facility]CF LYMPHOCYTES/[place]UK NFR BLD AUTO 24.7 % [facility]CF LYMPHOCYTES # BLD AUTO 2.28 1.00 - 4.00 k/uL [facility]CF MONOCYTES/[place]UK NFR BLD AUTO 5.9 % [facility]CF MONOCYTES # BLD AUTO 0.54 <0.87 k/uL [facility]CF EOSINOPHIL/[place]UK NFR BLD AUTO 1.7 % [facility] CCF EOSINOPHIL # BLD AUTO 0.16 <0.46 k/uL [facility]CF BASOPHILS/[place]UK NFR BLD AUTO 0.5 % [facility] CCF BASOPHILS # BLD AUTO 0.05 <0.11 k/uL [facility] IMM GRANULOCYTES/LEUK NFR BLD AUTO 0.5 % [facility] IMM GRANULOCYTES # BLD AUTO 0.05 <0.10 k/uL [facility] NRBC/100 WBC BLD-RTO 0.0 /100 WBC [facility]CF NRBC # BLD AUTO <0.01 <0.01 k/uL [facility] DIFFERENTIAL METHOD BLD Auto [facility] 01/13/2025 10:2 5 AM EDT 01/13/2025 10:27 AM EDT Narrative [facility] - 01/13/2025 10:29 AM EDT Specimen Type: BLOOD SPECIMEN Ordering Facility: [facility] Address: [address] [place], [place] [id number] Original Ordering Provider: LUCRECIA BLANCAS us Generic External Data Provider RADHA Alcala inal Result RAD[facility] [address] [place] [address] from Last 3 Months Insurance [employer] Care Teams Group Sales Manager Relationship Specialty Start Date End Date Jayme Franklin MD [address] [place] [phone] PCP - General Family Medicine 08/21/23 Jayme Franklin MD [address] [place] [address] PCP - [facility] 07/24/24
--- OUTSIDE RECORDS SUMMARY | 2025-01-31 12:55 | XMS_ITS | Encounter Summary ---
Author Organization [facility] Address [address] [place] [address] Care Team Providers Care Correction Officer [place] Name Role Phone Jayme Franklin MD Primary Care Provider Source Comments In the event this information is protected by the Federal Confidentiality of Alcohol and Drug AbusePatient Records regulations: The Federal rules restrict any use of the information to criminally investigate or prosecute any alcohol or drug abuse patient.[facility] Encounter Details Date Type Department Care Team (Late st Contact Info) Description 04/10/2024 Get Medical Advice [facility] [address] [phone] Yoly Miller, ONEIDA.KNOTTING MACHINE OPERATOR PORTABLE [address] [phone] Bladder &Bowel Social History Tobacco Use Types Packs/Day Years Used Date Smoking Tobacco: Never Passive Smoke Exposure: Yes Smokeless Tobacco: Never Alcohol Use Standard Drinks/Week Comments No 0 (1 standard drink = 0.6 oz pur e alcohol) PHQ-2 Answer Date Recorded PHQ-2 score 0 02/16/2024 Area Deprivation Index Answer Date Ismael rded National Score (1-100), lower number is lower ri sk 63 01/11/2023 State Score (1-10), lower number is lower risk 4 01/11/2023 Data from: https://www.neighborhoodatlas.medicine.[facility]/. Last address used for calculation [address] [place] [address] [address] 01/11/2023 Comments No Sex and Gender Information Value [...] Contact Info) Description 02/08/2025 10:45 AM EDT [facility] [address] [address] Yoly Miller APRN.KNOTTING MACHINE OPERATOR PORTABLE [address] [place] [address] Just my yearly for my MS 07/21/2025 10:30 AM [facility] Hematology/Oncology [address] [place] [address] [place] [address] Ocrevus documented as of this encounter Visit Diagnoses Not on filedocumented in this encounter Care Teams Correction Officer [place] [facility] Relationship Specialty Start Date End Date Jayme Franklin MD PCP - General Internal Medicine 08/12/13 documented as of this encounter
--- OUTSIDE RECORDS SUMMARY | 2025-01-31 12:55 | XMS_ITS | Encounter Summary ---
Author Organization [facility] Address [address] [place] [address] Care Team Providers Care Orthopedic Nurse Name Role Phone Jayme Franklin MD Primary Care Provider [phone] Source Comments In the event this information is protected by the Federal Confidentiality of Alcohol and Drug AbusePatient Records regulations: The Federal rules restrict any use of the information to criminally investigate or prosecute any alcohol or drug abuse patient.[facility] Encounter Details Date Type Department Care Team (Late st Contact Info) Description 03/08/2021 Get Medical Advice [facility] [address] [phone] Yoly Miller, ONEIDA.RN NURSERY [address] [phone] RE: Non-Urgent Medical Question Social History Tobacco [...] N ot on file 06/28/2020 Data from: https://www.neighborhoodatlas.medicine.[facility].edu/. Last address used for calculation Not [...] Contact Info) Description 02/08/2025 10:45 AM EDT [facility] [address] [address] Yoly Miller, ONEIDA.RN NURSERY [address] [place] [address] Just my yearly for my MS 07/21/2025 10:30 AM EST [facility] Hematology/Oncology [address] [place] [address] Ocrevus documented as of this encounter Visit Diagnoses Not on filedocumented in this encounter Care Teams Orthopedic Nurse Relationship Specialty Start Date End Date Jayme Franklin MD PCP - General Internal Medicine 08/12/13 documented as of this encounter
--- OUTSIDE RECORDS SUMMARY | 2025-01-31 12:55 | XMS_ITS | Encounter Summary ---
Author Organization [facility] Address [address] [place] [address] Care Team Providers Care Special Effects Makeup Artist Name Role Phone Jayme Franklin MD Primary Care Provider [phone] Source Comments In the event this information is protected by the Federal Confidentiality of Alcohol and Drug AbusePatient Records regulations: The Federal rules restrict any use of the information to criminally investigate or prosecute any alcohol or drug abuse patient.[facility] Encounter Details Date Type Department Care Team (Late st Contact Info) Description 05/26/2024 Get Medical Advice [facility] [address] [place] [address] Yoly Miller, ONEIDA.GARBAGE PICK UP WORKER [address] [phone] Doctors note for MS medicine Social History Tobacco Use Types Packs/Day Years Used Date Smoking Tobacco: Never Passive Smoke Exposure: Yes Smokeless Tobacco: Never Alcohol Use Standard Drinks/Week Comments No 0 (1 standard drink = 0.6 oz pur e alcohol) PHQ-2 Answer Date Recorded PHQ-2 score 2 04/22/2024 Area Deprivation Index Answer Date Ismael rded National Score (1-100), lower number is lower ri sk 63 01/11/2023 State Score (1-10), lower number is lower risk 4 01/11/2023 Data from: https://www.neighborhoodatlas.medicine.[facility]/. Last address used for calculation [address] 01/11/2023 Comments No Sex and [...] Description 02/08/2025 10:45 AM EDT [facility] [address] [address] Yoly Miller APRN.GARBAGE PICK UP WORKER [address] [place] [address] Just my yearly for my MS 07/21/2025 10:30 AM [facility] Hematology/Oncology [address] [place] [address] [place] [address] Ocrevus documented as of this encounter Visit Diagnoses Not on filedocumented in this encounter Care Teams Special Effects Makeup Artist Relationship Specialty Start Date End Date Jayme Franklin MD PCP - General Internal Medicine 08/12/13 documented as of this encounter
--- OUTSIDE RECORDS SUMMARY | 2025-01-31 12:55 | XMS_ITS | Encounter Summary ---
Author Organization [facility] Address [address] [place] [address] Care Team Providers Care Sports Clerk Name Role Phone Jayme Franklin MD Primary Care Provider [phone] Source Comments In the event this information is protected by the Federal Confidentiality of Alcohol and Drug AbusePatient Records regulations: The Federal rules restrict any use of the information to criminally investigate or prosecute any alcohol or drug abuse patient.[facility] Encounter Details Date Type Department Care Team (Late st Contact Info) Description 11/20/2020 Get Medical Advice [facility] [address] [phone] Yoly Miller, ONEIDA.PACKAGER HAND [address] [place], [place] [address] RE: Non-Urgent Medical Question Social History Tobacco [...] N ot on file 06/28/2020 Data from: https://www.neighborhoodatlas.medicine.[facility].edu/. Last address used for calculation Not on [...] Description 02/08/2025 10:45 AM EDT [facility] [address] [address] Yoly Miller, ONEIDA.PACKAGER HAND [address] [place] [address] Just my yearly for my MS 07/21/2025 10:30 AM EST [facility] Hematology/Oncology [address] [place] [address] Ocrevus documented as of this encounter Visit Diagnoses Not on filedocumented in this encounter Care Teams Sports Clerk Relationship Specialty Start Date End Date Jayme Franklin MD PCP - General Internal Medicine 08/12/13 documented as of this encounter
--- OUTSIDE RECORDS SUMMARY | 2025-01-31 12:55 | XMS_ITS | Encounter Summary ---
Author Organization [facility] Address [address] [place] [address] Care Team Providers Care General Repair Mechanic Name Role Phone Jayme Franklin MD Primary Care Provider [phone] Source Comments In the event this information is protected by the Federal Confidentiality of Alcohol and Drug AbusePatient Records regulations: The Federal rules restrict any use of the information to criminally investigate or prosecute any alcohol or drug abuse patient.[facility] Encounter Details Date Type Department Care Team (Late st Contact Info) Description 05/11/2020 Get Medical Advice [facility] [address] [place] [address] Ellen Lazo, DAE [address] [place] [address] RE: Non-Urgent Medical Question Social History Tobacco [...] Orientation Straight 07/21/2021 4: 31 PM EST COVID-19 Exposure Response Date Recorded In the last month, have you been in contact with someone who was confirmed or suspected to have Coronavirus / COVID-19? No / Unsure 04/20/2020 10:09 AM EDT documented as of this encounter Functional [...] Contact Info) Description 02/08/2025 10:45 AM EDT [facility] [address] [phone] Yoly Miller, TOWER SWITCH OPERATOR.COURT ABSTRACTOR [address] [place] [address] Just my yearly for my MS 07/21/2025 10:30 AM [facility] Hematology/Oncology [address] [place] [address] [place] [address] Ocrevus documented as of this encounter Visit Diagnoses Not on filedocumented in this encounter Care Teams General Repair Mechanic Relationship Specialty Start Date End Date Jayme Franklin MD PCP - General Internal Medicine 08/12/13 documented as of this encounter
--- OUTSIDE RECORDS SUMMARY | 2025-01-31 12:55 | XMS_ITS | Encounter Summary ---
Author Organization [facility] Address [address] [place] [address] Care Team Providers Care Mental Health Aides Teacher Name Role Phone Jayme Franklin MD Primary Care Provider [phone] Jayme Franklin MD Unavailable Reason for Visit * Reason Comments Med Refill Encounter Details Date Type Department Care Team (Late st Contact Info) Description 10/03/2024 Refill [facility] [address] [place] [address] Jayme Franklin MD [address] [place] [phone] Bipolar 1 disorder, depressed, mild (HCC) Social History Tobacco Use Types Packs/Day [...] week 09/17/2023 How often do you attend mandaen or denominational serv ices? Never 09/17/2023 Do you belong to any clubs o r organizations such as mandaen groups, unions, fraternal or athletic groups, or [...] medical care, and heating? Somewhat hard 09/17/2023 [facility] Occupat ional Health - Occupational Stress [...] place to sleep or slept in a fci (including now)? No 09/17/2023 Comments No Sex and Gender Information Value Date Recorded Sex Assigned at Female 02/08/2023 3:48 PM EDT Legal Sex Female 6:57 PM EDT Gender Identity Female 02/08/2023 3:48 PM EDT Sexual Orientation Straight 02/08/2023 3: 48 PM EDT documented as of this encounter Miscellaneous Notes * Telephone Encounter - MIKAYLA JOYNER - 10/03/2024 8:58 AM EDT [facility] documented in this encounter Plan of Treatment Upcoming Encounters Date Type Department Care Team (Late st Contact Info) Description 02/25/2025 1:00 PM EDT Office Visit [facility] [address] [place] [address] Jayme Franklin MD [address] [place] [phone] documented as of this encounter Visit Diagnoses Diagnosis Bipolar 1 disorder, depressed, mild (HCC) documented in this encounter Care Teams Mental Health Aides Teacher Relationship Specialty Start Date End Date Jayme Franklin MD [address] [place] [address] PCP - General Family Medicine 08/21/23 Jayme Franklin MD [address] [place] [address] PCP - [facility] 07/24/24 documented as of this encounter
--- OUTSIDE RECORDS SUMMARY | 2025-01-31 12:55 | XMS_ITS | Encounter Summary ---
Author Organization [facility] Address [address] [place] [address] Care Team Providers Care Brick Kiln Worker Name Role Phone Jayme Franklin MD Primary Care Provider [phone] Source Comments In the event this information is protected by the Federal Confidentiality of Alcohol and Drug AbusePatient Records regulations: The Federal rules restrict any use of the information to criminally investigate or prosecute any alcohol or drug abuse patient.[facility] Encounter Details Date Type Department Care Team (Late st Contact Info) Description 09/10/2018 [facility] [place] [phone] Yoly Miller, ONE[place] [phone] RE: Medication Question (Not Renewal) Social History Tobacco Use Types Packs/Day Years [...] Contact Info) Description 02/08/2025 10:45 AM EDT [address] [address] Yoly Miller APRN.BIRD CAGE ASSEMBLER [address] [place] [address] Just my yearly for my MS 07/21/2025 10:30 AM EST Infusion Center Hematology/Oncology [address] [place] [address] [place] [address] [employer] documented as of this encounter Visit Diagnoses Not on filedocumented in this encounter Care Teams Brick Kiln Worker Relationship Specialty Start Date End Date Jayme Franklin MD PCP - General Internal Medicine 08/12/13 documented as of this encounter
--- OUTSIDE RECORDS SUMMARY | 2025-01-31 12:55 | XMS_ITS | Encounter Summary ---
Author Organization [facility] Address [address] [place] [address] Care Team Providers Care Attacher Name Role Phone Jayme Franklin MD Primary Care Provider [phone] Source Comments In the event this information is protected by the Federal Confidentiality of Alcohol and Drug AbusePatient Records regulations: The Federal rules restrict any use of the information to criminally investigate or prosecute any alcohol or drug abuse patient.[facility] Encounter Details Date Type Department Care Team (Late st Contact Info) Description 05/27/2020 Get Medical Advice [place] [id number] Yoly Miller, ONEIDA.[place] [phone] RE: Non-Urgent Medical Question Social History Tobacco [...] have Coronavirus / COVID-19? No / Unsure 05/28/2020 9:33 AM EST documented as of this encounter Functional Status * Are you deaf or do you have serious difficulty hearing? Answer Date of Assessment Author No 01/06/2015 2:50 PM EDT aJckie Warren Ma * Are you blind or [...] AM EDT [facility] [address] [address] Yoly Miller, ONEIDA.AUTOMOTIVE DIAGNOSTIC TECHNICIAN [address] [place] [address] Just my yearly for my MS 07/21/2025 10:30 AM EST Infusion Center Hematology/Oncology [address] [place] [address] [place] [address] [employer] documented as of this encounter Visit Diagnoses Not on filedocumented in this encounter Care Teams Attacher Relationship Specialty Start Date End Date Jayme Franklin MD PCP - General Internal Medicine 08/12/13 documented as of this encounter
--- OUTSIDE RECORDS SUMMARY | 2025-01-31 12:55 | XMS_ITS | Encounter Summary ---
Author Organization [facility] Address [address] [place] [address] Care Team Providers Care Civil Celebrant Name Role Phone Jayme Franklin MD Primary Care Provider [phone] Source Comments In the event this information is protected by the Federal Confidentiality of Alcohol and Drug AbusePatient Records regulations: The Federal rules restrict any use of the information to criminally investigate or prosecute any alcohol or drug abuse patient.[facility] Encounter Details Date Type Department Care Team (Late st Contact Info) Description 05/01/2020 Patient [facility] [address] [place] [address] Autumn Aguilar MD [address] [place] [address] Virtual Visit Social History Tobacco Use Types Packs/Day Years [...] Contact Info) Description 02/08/2025 10:45 AM EDT [facility] [address] [address] Yoly Miller, HOTEL STAFF MEMBER.CIGARETTE VENDOR [address] [place] [address] Just my yearly for my MS 07/21/2025 10:30 AM EST Infusion Center Hematology/Oncology [address] [place] [address] [place] [address] [employer] documented as of this encounter Visit Diagnoses Not on filedocumented in this encounter Care Teams Civil Celebrant Relationship Specialty Start Date End Date Jayme Franklin MD PCP - General Internal Medicine 08/12/13 documented as of this encounter
--- OUTSIDE RECORDS SUMMARY | 2025-01-31 12:55 | XMS_ITS | Encounter Summary ---
Author Organization [facility] Address [address] [place] [address] Care Team Providers Care Distributor Operator Name Role Phone Jayme Franklin MD Primary Care Provider [phone] Source Comments In the event this information is protected by the Federal Confidentiality of Alcohol and Drug AbusePatient Records regulations: The Federal rules restrict any use of the information to criminally investigate or prosecute any alcohol or drug abuse patient.[facility] Encounter Details Date Type Department Care Team (Late st Contact Info) Description 10/31/2017 Patient Msg Medical Records [address] [place], [place] [phone] Provider, Ccf [employer] approved Social History Tobacco Use Types Packs/Day Years [...] Contact Info) Description 02/08/2025 10:45 AM EDT [facility] [address] [address] Yoly Miller, ONEIDA.HEAD HOUSEKEEPER [address] [place] [address] Just my yearly for my MS 07/21/2025 10:[address] [facility] Hematology/Oncology [address] [place] [address] [place] [address] [employer] documented as of this encounter Visit Diagnoses Not on filedocumented in this encounter Care Teams Distributor Operator Relationship Specialty Start Date End Date Jayme Franklin MD PCP - General Internal Medicine 08/12/13 documented as of this encounter
--- OUTSIDE RECORDS SUMMARY | 2025-01-31 12:55 | XMS_ITS | Encounter Summary ---
Author Organization [facility] Address [address] [place] [address] Care Team Providers Care Test Preparer Name Role Phone Jayme Franklin MD Primary Care Provider [phone] Source Comments In the event this information is protected by the Federal Confidentiality of Alcohol and Drug AbusePatient Records regulations: The Federal rules restrict any use of the information to criminally investigate or prosecute any alcohol or drug abuse patient.[facility] Encounter Details Date Type Department Care Team (Late st Contact Info) Description 05/14/2021 Get Medical Advice [facility] [address] [place], [place] [phone] Yoly Miller, ONEIDA.[facility] [address] [place] [phone] RE: Non-Urgent Medical Question Social History Tobacco [...] N ot on file 06/28/2020 Data from: https://www.neighborhoodatlas.medicine.[facility].edu/. Last address used for calculation Not on [...] Contact Info) Description 02/08/2025 10:45 AM EDT [facility] [address] [address] Yoly Miller, ONEIDA.DIRECTOR OF QUALITY [address] [place] [address] Just my yearly for my MS 07/21/2025 10:30 AM EST Infusion Center Hematology/Oncology [address] [place] [address] [employer] documented as of this encounter Visit Diagnoses Not on filedocumented in this encounter Care Teams Test Preparer Relationship Specialty Start Date End Date Jayme Franklin MD PCP - General Internal Medicine 08/12/13 documented as of this encounter
--- OUTSIDE RECORDS SUMMARY | 2025-01-31 12:55 | XMS_ITS | Encounter Summary ---
Author Organization [facility] Address [address] [place] [address] Care Team Providers Care Hydrometer Calibrator Name Role Phone Jayme Franklin MD Primary Care Provider [phone] Source Comments In the event this information is protected by the Federal Confidentiality of Alcohol and Drug AbusePatient Records regulations: The Federal rules restrict any use of the information to criminally investigate or prosecute any alcohol or drug abuse patient.[facility] Encounter Details Date Type Department Care Team (Late st Contact Info) Description 05/27/2020 Patient Msg MRI Q [address] [place] [id number] Provider, Ccf Questionnaire Submission Social History Tobacco Use Types Packs/Day Years [...] Contact Info) Description 02/08/2025 10:45 AM EDT [address] [address] Yoly Miller APRN.SOFA BACK UPHOLSTERER [address] [place] [address] Just my yearly for my MS 07/21/2025 10:30 AM EST Infusion Center Hematology/Oncology [address] [place] [address] [place] [address] [employer] documented as of this encounter Visit Diagnoses Not on filedocumented in this encounter Care Teams Hydrometer Calibrator Relationship Specialty Start Date End Date Jayme Franklin MD PCP - General Internal Medicine 08/12/13 documented as of this encounter
--- OUTSIDE RECORDS SUMMARY | 2025-01-31 12:55 | XMS_ITS | Encounter Summary ---
Author Organization [facility] Address [address] [place] [address] Care Team Providers Care Adobe Block Maker Name Role Phone Jayme Franklin MD Primary Care Provider Source Comments In the event this information is protected by the Federal Confidentiality of Alcohol and Drug AbusePatient Records regulations: The Federal rules restrict any use of the information to criminally investigate or prosecute any alcohol or drug abuse patient.[facility] Encounter Details Date Type Department Care Team (Late st Contact Info) Description 11/30/2024 Get Medical Advice [facility] [address] [address] Yoly Miller, ONEIDA.STRINGS TEACHER [address] [place], [place] [phone] Doctor's note for work Social History Tobacco Use Types Packs/Day Years Used Date Smoking Tobacco: Never Passive Smoke Exposure: Yes Smokeless Tobacco: Never Alcohol Use Standard Drinks/Week Comments No 0 (1 standard drink = 0.6 oz pur e alcohol) PHQ-2 Answer Date Recorded PHQ-2 score 2 07/24/2024 Area Deprivation Index Answer Date Ismael rded National Score (1-100), lower number is lower ri sk 63 01/11/2023 State Score (1-10), lower number is lower risk 4 01/11/2023 Data from: https://www.neighborhoodatlas.medicine.[facility]/. Last address used for calculation [address] [place] [address] [address] 01/11/2023 Comments No Sex and [...] 10:45 AM EDT [facility] [address] [address] Yoly Miller APRN.STRINGS TEACHER [address] [place] [address] Just my yearly for my MS 07/21/2025 10:[address] [facility] Hematology/Oncology [address] [place] [address] [place] [address] [employer] documented as of this encounter Visit Diagnoses Not on filedocumented in this encounter Care Teams Adobe Block Maker Relationship Specialty Start Date End Date Jayme Franklin MD PCP - General Internal Medicine 08/12/13 documented as of this encounter
--- OUTSIDE RECORDS SUMMARY | 2025-01-31 12:55 | XMS_ITS | Encounter Summary ---
Author Organization [facility] Address [address] [place] [address] Care Team Providers Care Supervisor Accounting Clerks Name Role Phone Jayme Franklin MD Primary Care Provider [phone] Source Comments In the event this information is protected by the Federal Confidentiality of Alcohol and Drug AbusePatient Records regulations: The Federal rules restrict any use of the information to criminally investigate or prosecute any alcohol or drug abuse patient.[facility] Encounter Details Date Type Department Care Team (Late st Contact Info) Description 04/15/2018 Get Medical [place] [phone] Yoly Miller, ONEIDA.[place] [phone] RE: Non-Urgent Medical Question Social History Tobacco [...] Contact Info) Description 02/08/2025 10:45 AM EDT [address] [address] Yoly Miller, ONEIDA.ARCHITECTURE INTERNSHIP [address] [place] [address] Just my yearly for my MS 07/21/2025 10:30 AM EST Infusion Center Hematology/Oncology [address] [place] [address] [place] [address] [employer] documented as of this encounter Visit Diagnoses Not on filedocumented in this encounter Care Teams Supervisor Accounting Clerks Relationship Specialty Start Date End Date Jayme Franklin MD PCP - General Internal Medicine 08/12/13 documented as of this encounter
--- OUTSIDE RECORDS SUMMARY | 2025-01-31 12:55 | XMS_ITS | Encounter Summary ---
Author Organization [facility] Address [address] [place] [address] Care Team Providers Care Construction Trench Digger Name Role Phone Jayme Franklin MD Primary Care Provider [phone] Source Comments In the event this information is protected by the Federal Confidentiality of Alcohol and Drug AbusePatient Records regulations: The Federal rules restrict any use of the information to criminally investigate or prosecute any alcohol or drug abuse patient.[facility] Encounter Details Date Type Department Care Team (Late st Contact Info) Description 06/01/2021 Get Medical Advice [facility] [address] [place], [place] [phone] Yoly Miller, ONEIDA.QUALITY INTERN [address] [place], [place] [phone] Appt Social History Tobacco Use Types Packs/Day Years [...] N ot on file 06/28/2020 Data from: https://www.neighborhoodatlas.[facility]/. Last address used for calculation Not on [...] AM EDT [facility] [address] [address] Yoly Miller APRN.QUALITY INTERN [address] [place] [address] Just my yearly for my MS 07/21/2025 10:30 AM EST Infusion Center Hematology/Oncology [address] [place] [address] [place] [address] [employer] documented as of this encounter Visit Diagnoses Not on filedocumented in this encounter Care Teams Construction Trench Digger Relationship Specialty Start Date End Date Jayme Franklin MD PCP - General Internal Medicine 08/12/13 documented as of this encounter
--- OUTSIDE RECORDS SUMMARY | 2025-01-31 12:55 | XMS_ITS | Encounter Summary ---
Author Organization [facility] Address [address] [place] [address] Care Team Providers Care Public Speaking Professor Name Role Phone Jayme Franklin MD Primary Care Provider [phone] Source Comments In the event this information is protected by the Federal Confidentiality of Alcohol and Drug AbusePatient Records regulations: The Federal rules restrict any use of the information to criminally investigate or prosecute any alcohol or drug abuse patient.[facility] Encounter Details Date Type Department Care Team (Late st Contact Info) Description 09/22/2018 Patient [facility] 1950 [place] [address] Autumn Aguilar MD [address] [place] [address] MRI Social History Tobacco Use Types Packs/Day [...] Author No 01/06/2015 2:50 PM EDT Jackie Puente * Because of a physical, mental, or [...] Contact Info) Description 02/08/2025 10:45 AM EDT [facility] [address] [address] Yoly Miller, TAPPER HELPER.CLAIMS VICE PRESIDENT [address] [facility] [place] [address] Just my yearly for my MS 07/21/2025 10:30 AM EST Infusion Center Hematology/Oncology [address] [place] [address] [place] [address] [employer] documented as of this encounter Visit Diagnoses Not on filedocumented in this encounter Care Teams Public Speaking Professor Relationship Specialty Start Date End Date Jayme Franklin MD PCP - General Internal Medicine 08/12/13 documented as of this encounter
--- OUTSIDE RECORDS SUMMARY | 2025-01-31 12:55 | XMS_ITS | Encounter Summary ---
Author Organization [facility] Address [address] [place] [address] Care Team Providers Care Intelligence Agent Name Role Phone Jayme Franklin MD Primary Care Provider [phone] Source Comments In the event this information is protected by the Federal Confidentiality of Alcohol and Drug AbusePatient Records regulations: The Federal rules restrict any use of the information to criminally investigate or prosecute any alcohol or drug abuse patient.[facility] Encounter Details Date Type Department Care Team (Late st Contact Info) Description 05/24/2019 [facility] [place] [phone] Yoly Miller, ONEIDA.[place] [phone] RE: Non-Urgent Medical Question Social History Tobacco [...] Contact Info) Description 02/08/2025 10:45 AM EDT [address] [address] Yoly Miller, ONEIDA.HOTEL MANAGER [address] [place] [address] Just my yearly for my MS 07/21/2025 10:30 AM EST Infusion Center Hematology/Oncology [address] [place] [address] [place] [address] [employer] documented as of this encounter Visit Diagnoses Not on filedocumented in this encounter Care Teams Intelligence Agent Relationship Specialty Start Date End Date Jayme Franklin MD PCP - General Internal Medicine 08/12/13 documented as of this encounter
--- OUTSIDE RECORDS SUMMARY | 2025-01-31 12:55 | XMS_ITS | Encounter Summary ---
Author Organization [facility] Address [address] [place] [address] Care Team Providers Care Copra Processor Name Role Phone Jayme Franklin MD Primary Care Provider [phone] Source Comments In the event this information is protected by the Federal Confidentiality of Alcohol and Drug AbusePatient Records regulations: The Federal rules restrict any use of the information to criminally investigate or prosecute any alcohol or drug abuse patient.[facility] Encounter Details Date Type Department Care Team (Late st Contact Info) Description 12/29/2016 [facility] [place] [phone] Megha Curry, IMMIGRATION CASE MANAGER.[place] [phone] RE: Non-Urgent Medical Question Social History Tobacco [...] Contact Info) Description 02/08/2025 10:45 AM EDT [address] [address] Yoly Miller APRN.INSTITUTION LIBRARIAN [address] [place] [address] Just my yearly for my MS 07/21/2025 10:30 AM EST Infusion Center Hematology/Oncology [address] [place] [address] [place] [address] [employer] documented as of this encounter Visit Diagnoses Not on filedocumented in this encounter Care Teams Copra Processor Relationship Specialty Start Date End Date Jayme Franklin MD PCP - General Internal Medicine 08/12/13 documented as of this encounter
--- OUTSIDE RECORDS SUMMARY | 2025-01-31 12:55 | XMS_ITS | Encounter Summary ---
Author Organization [facility] Address [address] [place] [address] Care Team Providers Care Airport Operations Officer Name Role Phone Jayme Franklin MD Primary Care Provider [phone] Source Comments In the event this information is protected by the Federal Confidentiality of Alcohol and Drug AbusePatient Records regulations: The Federal rules restrict any use of the information to criminally investigate or prosecute any alcohol or drug abuse patient.[facility] Reason for Referral * Diagnostic Procedure Only (Routine) - Closed Specialty Diagnoses / Procedures Referred By Contac t Referred To Contact MR IMAGING Diagnoses Multiple sclerosis (HCC) Procedures MRI BRAIN WO/W IVCON MRI BRAIN COMBO Autumn Aguilar MD [address] [place] [address] Phone: tel: fax: MR IMAGING [facility]95 Referral ID Status Reason Start Date Expiration Date V isits Requested Visits Authorized [id number] Closed Auto-Generate d Referral 03/25/2020 07/23/2020 3 3 Encounter Details Date Type Department Care Team (Late st Contact Info) Description 08/18/[address] [address] AngelaYoly, LIME HIDE INSPECTOR.SECRETARIAL STENOGRAPHER [address] [place] [address] RE: Non-Urgent Medical Question Social History Tobacco [...] Contact Info) Description 02/08/2025 10:45 AM EDT [address] [address] Yoly Miller, ONEIDA.SECRETARIAL STENOGRAPHER [address] [place] [address] Just my yearly for my MS 07/21/2025 10:30 AM [facility] Hematology/Oncology [address] [place] [address] [place] [address] Ocrevus documented as of this encounter Results * MRI BRAIN WO/W IVCON (03/31/2020 6:28 PM EDT) Anatomical Region Laterality Modality Magnetic Resonan ce 03/31/2020 6:28 PM EDT Impressions 03/31/2020 10:16 PM EDT IMPRESSION: Multiple intracranial white matter lesions compatible with multiple sclerosis. No new T2 lesions and no new enhancing lesions. No significant parenchymal volume loss. Other Significant Intracranial Findings: None *Note: New T2 Lesions includes both new and enlarging plaques on T2-weighted FLAIR images (new lesions greater than or equal to 5mm3 or an increase in diameter of an existing lesion by greater than or equal to 2mm). Chef Head: PSCB Transcribe Date/Time: Mar 31 2020 10:13P Dictated by : BEATRICE CHAO MD This examination was interpreted and the report reviewed and electronically signed by: BEATRICE CHAO MD on Mar 31 2020 10:14PM EST Narrative 03/31/2020 10:16 PM EDT * * *Final Report* * * DATE OF EXAM: Mar 31 2020 6:28PM [id number] - MRI BRAIN WO/W IVCON / PROCEDURE REASON: Multiple sclerosis (HCC) * * * * Physician Interpretation * * * * EXAMINATION: MRI BRAIN WO/W IVCON HISTORY: Multiple sclerosis. Routine follow-up TECHNIQUE: Brain MRI with demyelinating disease protocol with and without IV gadolinium. MQ: [id number] Contrast: 14 mL Dotarem IV COMPARISON: 09/21/2018 RESULT: MR BRAIN: Parenchymal Findings: There are multiple foci of hyperintensity on FLAIR and T2 within the white matter, compatible with the clinical diagnosis of multiple sclerosis. New T2 Lesions: None Interval Improvement: None. New Enhancing Lesions: None T2 [place] of Disease: Mild. Parenchymal Volume Loss: None. Other Significant Findings/Site(s) of New T2 Lesion(s): None. Procedure Note Provider, [facility] [place] - 03/31/2020 * * *Final Report* * * DATE OF EXAM: Mar 31 2020 6:28PM [id number] - MRI BRAIN WO/W IVCON / PROCEDURE REASON: Multiple sclerosis (HCC) * * * * Physician Interpretation * * * * EXAMINATION: MRI BRAIN WO/W IVCON HISTORY: Multiple sclerosis. Routine follow-up TECHNIQUE: Brain MRI with demyelinating disease protocol with and without IV gadolinium. MQ: [id number] Contrast: 14 mL Dotarem IV COMPARISON: 09/21/2018 RESULT: MR BRAIN: Parenchymal Findings: There are multiple foci of hyperintensity on FLAIR and T2 within the white matter, compatible with the clinical diagnosis of multiple sclerosis. New T2 Lesions: None Interval Improvement: None. New Enhancing Lesions: None T2 [place] of Disease: Mild. Parenchymal Volume Loss: None. Other Significant Findings/Site(s) of New T2 Lesion(s): None. IMPRESSION IMPRESSION: Multiple intracranial white matter lesions compatible with multiple sclerosis. No new T2 lesions and no new enhancing lesions. No significant parenchymal volume loss. Other Significant Intracranial Findings: None *Note: New T2 Lesions includes both new and enlarging plaques on T2-weighted FLAIR images (new lesions greater than or equal to 5mm3 or an increase in diameter of an existing lesion by greater than or equal to 2mm). Chef Head: MYRTLE Transcribe Date/Time: Mar 31 2020 10:13P Dictated by : BEATRICE CHAO MD This examination was interpreted and the report reviewed and electronically signed by: BEATRICE CHAO MD on Mar 31 2020 10:14PM EST Autumn Aguilar MD MRI-PAMA Final Result documented in this encounter Visit Diagnoses Diagnosis Multiple sclerosis (HCC)- Primary Multiple sclerosis Multiple sclerosis (HCC) Multiple sclerosis documented in this encounter Care Teams Airport Operations Officer Relationship Specialty Start Date End Date Jayme Franklin MD PCP - General Internal Medicine 08/12/13 documented as of this encounter
--- OUTSIDE RECORDS SUMMARY | 2025-01-31 12:55 | XMS_ITS | Encounter Summary ---
Author Organization [facility] Address [address] [place] [address] Care Team Providers Care Shake Loader Name Role Phone Jayme Franklin MD Primary Care Provider [phone] Source Comments In the event this information is protected by the Federal Confidentiality of Alcohol and Drug AbusePatient Records regulations: The Federal rules restrict any use of the information to criminally investigate or prosecute any alcohol or drug abuse patient.[facility] Encounter Details Date Type Department Care Team (Late st Contact Info) Description 05/11/2018 [facility] [place] [phone] Yoly Miller, ONE[place] [phone] RE: Medication Question (Not Renewal) Social History [...] Contact Info) Description 02/08/2025 10:45 AM EDT [address] [address] Yoly Miller APRN.DOUBLE REAMER OPERATOR [address] [place] [address] Just my yearly for my MS 07/21/2025 10:30 AM EST Infusion Center Hematology/Oncology [address] [place] [address] [place] [address] O[place]vus documented as of this encounter Visit Diagnoses Not on filedocumented in this encounter Care Teams Shake Loader Relationship Specialty Start Date End Date Jayme Franklin MD PCP - General Internal Medicine 08/12/13 documented as of this encounter
--- OUTSIDE RECORDS SUMMARY | 2025-01-31 12:55 | XMS_ITS | Encounter Summary ---
Author Organization [facility] Address [address] [place] [address] Care Team Providers Care Footwear Machinery Instructor Name Role Phone Jayme Franklin MD Primary Care Provider [phone] Source Comments In the event this information is protected by the Federal Confidentiality of Alcohol and Drug AbusePatient Records regulations: The Federal rules restrict any use of the information to criminally investigate or prosecute any alcohol or drug abuse patient.[facility] Encounter Details Date Type Department Care Team (Late st Contact Info) Description 03/11/2020 Get Medical Advice [place] [phone] Yoly Miller, ONEIDA.[place] [phone] RE: Non-Urgent Medical Question Social History Tobacco [...] have Coronavirus / COVID-19? No / Unsure 03/05/2020 12:23 PM EDT documented as of this encounter [...] Contact Info) Description 02/08/2025 10:45 AM EDT [facility] [address] [address] Yoly Miller, MEAT SELECTOR.HEDIS COORDINATOR [address] [place] [address] Just my yearly for my MS 07/21/2025 10:30 AM EST Infusion Center Hematology/Oncology [address] [place] [address] [place] [address] O[place] documented as of this encounter Visit Diagnoses Not on filedocumented in this encounter Care Teams Footwear Machinery Instructor Relationship Specialty Start Date End Date Jayme Franklin MD PCP - General Internal Medicine 08/12/13 documented as of this encounter
--- OUTSIDE RECORDS SUMMARY | 2025-01-31 12:55 | XMS_ITS | Encounter Summary ---
Author Organization [facility] Address [address] [place] [address] Care Team Providers Care Visual Training Aide Name Role Phone Jayme Franklin MD Primary Care Provider [phone] Source Comments In the event this information is protected by the Federal Confidentiality of Alcohol and Drug AbusePatient Records regulations: The Federal rules restrict any use of the information to criminally investigate or prosecute any alcohol or drug abuse patient.[facility] Encounter Details Date Type Department Care Team (Late st Contact Info) Description 02/10/[address] [facility] [address] [place] [phone] Yoly Miller, ONEIDA.ETCHER AIRCRAFT [address] [place], [place] [phone] RE: Non-Urgent Medical Question Social History Tobacco [...] N ot on file 06/28/2020 Data from: https://www.neighborhoodatlas.medicine.[facility].edu/. Last address used for calculation Not on [...] AM EDT [facility] [address] [address] Yoly Miller, ONEIDA.ETCHER AIRCRAFT [address] [place] [address] Just my yearly for my MS 07/21/2025 10:30 AM EST Infusion Center Hematology/Oncology [address] [place] [address] Ocrevus documented as of this encounter Visit Diagnoses Not on filedocumented in this encounter Care Teams Visual Training Aide Relationship Specialty Start Date End Date Jayme Franklin MD PCP - General Internal Medicine 08/12/13 documented as of this encounter
--- OUTSIDE RECORDS SUMMARY | 2025-01-31 12:55 | XMS_ITS | Encounter Summary ---
Author Organization [facility] Address [address] [place] [address] Care Team Providers Care Career Development Specialist Name Role Phone Jayme Franklin MD Primary Care Provider [phone] Source Comments In the event this information is protected by the Federal Confidentiality of Alcohol and Drug AbusePatient Records regulations: The Federal rules restrict any use of the information to criminally investigate or prosecute any alcohol or drug abuse patient.[facility] Encounter Details Date Type Department Care Team (Late st Contact Info) Description 12/24/2024 Get Medical Advice [facility] 1950 [place] [phone] Yoly Miller, ONEIDA.GARMENT PRESSER [address] [place] [phone] Work note for breaks Social History Tobacco Use Types Packs/Day Years [...] is lower risk 4 01/11/2023 Data from: https://www.neighborhoodatlas.medicine.[facility]/. Last address used for calculation [address] [address] 01/11/2023 Comments No Sex [...] Description 02/08/2025 10:45 AM EDT [facility] [address] [address] Yoly Miller APRN.GARMENT PRESSER [address] [place] [address] Just my yearly for my MS 07/21/2025 10:30 AM [facility] Hematology/Oncology [address] [place] [address] [place] [address] Ocrevus documented as of this encounter Visit Diagnoses Not on filedocumented in this encounter Care Teams Career Development Specialist Relationship Specialty Start Date End Date Jayme Franklin MD PCP - General Internal Medicine 08/12/13 documented as of this encounter
--- OUTSIDE RECORDS SUMMARY | 2025-01-31 12:55 | XMS_ITS | Encounter Summary ---
Author Organization [facility] Address [address] [place] [address] Care Team Providers Care Bagel Maker Name Role Phone Jayme Franklin MD Primary Care Provider [phone] Source Comments In the event this information is protected by the Federal Confidentiality of Alcohol and Drug AbusePatient Records regulations: The Federal rules restrict any use of the information to criminally investigate or prosecute any alcohol or drug abuse patient.[facility] Encounter Details Date Type Department Care Team (Late st Contact Info) Description 11/01/2017 [facility] [place] [phone] Megha Curry, HUMAN SERVICE COORDINATOR.[place] [phone] RE: Upcoming Appointment Question Social History Tobacco [...] Contact Info) Description 02/08/2025 10:45 AM EDT [address] [address] Yoly Miller APRN.VEHICLE CALIBRATION ENGINEER [address] [place] [address] Just my yearly for my MS 07/21/2025 10:30 AM EST Infusion Center Hematology/Oncology [address] [place] [address] [place] [address] Ocrevus documented as of this encounter Visit Diagnoses Not on filedocumented in this encounter Care Teams Bagel Maker Relationship Specialty Start Date End Date Jayme Franklin MD PCP - General Internal Medicine 08/12/13 documented as of this encounter
--- OUTSIDE RECORDS SUMMARY | 2025-01-31 12:55 | XMS_ITS | Encounter Summary ---
Author Organization [facility] Address [address] [place] [address] Care Team Providers Care System Administration Manager Name Role Phone Jayme Franklin MD Primary Care Provider [phone] Source Comments In the event this information is protected by the Federal Confidentiality of Alcohol and Drug AbusePatient Records regulations: The Federal rules restrict any use of the information to criminally investigate or prosecute any alcohol or drug abuse patient.[facility] Encounter Details Date Type Department Care Team (Late st Contact Info) Description 07/30/2016 Patient Msg Medical Records [address] [place], [place] [phone] Provider, Ccf fatigue Social History Tobacco Use Types Packs/Day Years [...] Contact Info) Description 02/08/2025 10:45 AM EDT [facility] [address] [address] Yoly Miller APRN.SERVICE TECHNICIAN COPIER [address] [place] [address] Just my yearly for my MS 07/21/2025 10:30 AM [facility] Hematology/Oncology [address] [place] [address] [place] [address] O[place] documented as of this encounter Visit Diagnoses Not on filedocumented in this encounter Care Teams System Administration Manager Relationship Specialty Start Date End Date Jayme Franklin MD PCP - General Internal Medicine 08/12/13 documented as of this encounter
--- OUTSIDE RECORDS SUMMARY | 2025-01-31 12:55 | XMS_ITS | Encounter Summary ---
Author Organization [facility] Address [address] [place] [address] Care Team Providers Care Aadc Plans Staff Officer Name Role Phone Jayme Franklin MD Primary Care Provider [phone] Source Comments In the event this information is protected by the Federal Confidentiality of Alcohol and Drug AbusePatient Records regulations: The Federal rules restrict any use of the information to criminally investigate or prosecute any alcohol or drug abuse patient.[facility] Encounter Details Date Type Department Care Team (Late st Contact Info) Description 07/14/2017 Patient [facility] [address] [place] [address] Robbie Causey, RN [address] [place] [address] Required Monitoring Labwork Social History Tobacco Use Types Packs/Day Years [...] Assessment Author No 01/06/2015 2:50 PM EDT Margaret Warren May * Are you blind or do you [...] Description 02/08/2025 10:45 AM EDT [facility] [address] [address] Yoly Miller APRN.PATIENT SUPPORT SPECIALIST [address] [facility] [place] [address] Just my yearly for my MS 07/21/2025 10:30 AM EST Infusion Center Hematology/Oncology [address] [place] [address] [place] [address] O[place]vus documented as of this encounter Visit Diagnoses Not on filedocumented in this encounter Care Teams Aadc Plans Staff Officer Relationship Specialty Start Date End Date Jayme Franklin MD PCP - General Internal Medicine 08/12/13 documented as of this encounter
--- NOTE | 2025-01-31 12:56 | XR_ITS ---
The [address] [address] Patient Name: KASHIF JAQUEZ MRN: [id number] date: 1995 Sex: F Assigned Patient Location: [facility] Current Patient Location: [facility] Accession/Order Number: [id number] Exam Date: 01/31/2025 14:09 Report Date: 01/31/2025 14:10 At the request of: AMRIK MUELLER DPJohn Procedure: XR foot LT min 3V XR foot LT min 3V 01/31/2025 1:07 PM SIGNS AND SYMPTOMS: Follow-up fracture of left fifth metatarsal PROTOCOL: Frontal, lateral, and oblique radiographs of the left foot COMPARISON: 09/25/2024 FINDINGS: There is hardware fixation of the fifth metatarsal. No hardware complication or change in alignment. There is increasing periosteal new bone incorporation consistent with continued interval healing. XR/XR foot LT min 3V IMPRESSION: Healing fracture of the fifth metatarsal status post hardware fixation. No change in alignment. Impression dictated by: Corey Short M.D. 01/31/2025 2:10 PM Dictation Location: [place] [address] Electronically authenticated by: [id number] Y Date: 01/31/2025 14:10
--- OUTSIDE RECORDS SUMMARY | 2025-01-31 12:56 | XMS_ITS | Encounter Summary ---
Author Organization [facility] Address [address] [place] [address] Care Team Providers Care Marble Installation Helper Name Role Phone Jayme Franklin MD Primary Care Provider [phone] Source Comments In the event this information is protected by the Federal Confidentiality of Alcohol and Drug AbusePatient Records regulations: The Federal rules restrict any use of the information to criminally investigate or prosecute any alcohol or drug abuse patient.[facility] Encounter Details Date Type Department Care Team (Late st Contact Info) Description 04/02/2019 [facility] [place] [phone] Yoly Miller, ONEIDA.[place] [phone] RE: Non-Urgent Medical Question Social History Tobacco [...] Contact Info) Description 02/08/2025 10:45 AM EDT [address] [address] Yoly iMller, ONEIDA.SHIPPING COORDINATOR [address] [facility] [place] [address] Just my yearly for my MS 07/21/2025 10:30 AM EST Infusion Center Hematology/Oncology [address] [place] [address] [place] [address] O[place] documented as of this encounter Visit Diagnoses Diagnosis Multiple sclerosis (HCC)- Primary Multiple sclerosis Daytime sleepiness documented in this encounter Care Teams Marble Installation Helper Relationship Specialty Start Date End Date Jayme Franklin MD PCP - General Internal Medicine 08/12/13 documented as of this encounter
--- OUTSIDE RECORDS SUMMARY | 2025-01-31 12:56 | XMS_ITS | Encounter Summary ---
Author Organization [facility] Address [address] [place] [address] Care Team Providers Care Financial Systems Director Name Role Phone Jayme Franklin MD Primary Care Provider [phone] Source Comments In the event this information is protected by the Federal Confidentiality of Alcohol and Drug AbusePatient Records regulations: The Federal rules restrict any use of the information to criminally investigate or prosecute any alcohol or drug abuse patient.[facility] Encounter Details Date Type Department Care Team (Late st Contact Info) Description 05/24/2019 [facility] [place] [phone] Yoly Miller, ONEIDA.[place] [phone] RE: Non-Urgent Medical Question Social History Tobacco [...] Info) Description 02/08/2025 10:45 AM EDT [address] [address] Yoly Miller, ONEIDA.MANGANESE WHEELER [address] [place] [address] Just my yearly for my MS 07/21/2025 10:30 AM EST Infusion Center Hematology/Oncology [address] [place] [address] [place] [address] O[place] documented as of this encounter Visit Diagnoses Not on filedocumented in this encounter Care Teams Financial Systems Director Relationship Specialty Start Date End Date Jayme Franklin MD PCP - General Internal Medicine 08/12/13 documented as of this encounter
--- OUTSIDE RECORDS SUMMARY | 2025-01-31 12:56 | XMS_ITS | Encounter Summary ---
Author Organization [facility] Address [address] [place] [address] Care Team Providers Care Associate Team Physician Name Role Phone Jayme Franklin MD Primary Care Provider [phone] Source Comments In the event this information is protected by the Federal Confidentiality of Alcohol and Drug AbusePatient Records regulations: The Federal rules restrict any use of the information to criminally investigate or prosecute any alcohol or drug abuse patient.[facility] Encounter Details Date Type Department Care Team (Late st Contact Info) Description 07/31/2018 [facility] [place] [phone] Yoly Miller, ONEIDA.[place] [phone] RE: Non-Urgent Medical Question Social History Tobacco [...] Contact Info) Description 02/08/2025 10:45 AM EDT [address] [address] Yoly Miller, ONEIDA.VALVE INSPECTOR [address] [place] [address] Just my yearly for my MS 07/21/2025 10:30 AM EST Infusion Center Hematology/Oncology [address] [place] [address] [place] [address] [place] documented as of this encounter Visit Diagnoses Not on filedocumented in this encounter Care Teams Associate Team Physician Relationship Specialty Start Date End Date Jayme Franklin MD PCP - General Internal Medicine 08/12/13 documented as of this encounter
--- OUTSIDE RECORDS SUMMARY | 2025-01-31 12:56 | XMS_ITS | Encounter Summary ---
Author Organization [facility] Address [address] [place] [address] Care Team Providers Care Oracle Soa Developer Name Role Phone Jayme Franklin MD Primary Care Provider [phone] Source Comments In the event this information is protected by the Federal Confidentiality of Alcohol and Drug AbusePatient Records regulations: The Federal rules restrict any use of the information to criminally investigate or prosecute any alcohol or drug abuse patient.[facility] Encounter Details Date Type Department Care Team (Late st Contact Info) Description 08/05/2018 Get Medical [place] [phone] Yoly Miller, ONEIDA.[place] [phone] RE: Non-Urgent Medical Question Social History Tobacco [...] Contact Info) Description 02/08/2025 10:45 AM EDT [address] [address] Yoly Miller, ONEIDA.ASSOCIATE PROFESSOR OF THEOLOGY [address] [place] [address] Just my yearly for my MS 07/21/2025 10:30 AM EST Infusion Center Hematology/Oncology [address] [place] [address] [place] [address] [place] documented as of this encounter Visit Diagnoses Not on filedocumented in this encounter Care Teams Oracle Soa Developer Relationship Specialty Start Date End Date Jayme Franklin MD PCP - General Internal Medicine 08/12/13 documented as of this encounter
--- OUTSIDE RECORDS SUMMARY | 2025-01-31 12:56 | XMS_ITS | Encounter Summary ---
Author Organization [facility] Address [address] [place] [address] Care Team Providers Care Manager Cardiology Name Role Phone Jayme Franklin MD Primary Care Provider [phone] Source Comments In the event this information is protected by the Federal Confidentiality of Alcohol and Drug AbusePatient Records regulations: The Federal rules restrict any use of the information to criminally investigate or prosecute any alcohol or drug abuse patient.[facility] Encounter Details Date Type Department Care Team (Late st Contact Info) Description 10/30/2021 Get Medical Advice [facility] [address] [place], [place] [phone] Yoly Miller, ONEIDA.LABELLING MACHINE OPERATOR [address] [id number] Problems Social History Tobacco Use Types Packs/Day Years Used Date Smoking Tobacco: Passive Smo ke Exposure - Never Smoker Smokeless Tobacco: Never Alcohol Use Standard Drinks/Week Comments No 0 (1 standard drink = 0.6 oz pur e alcohol) PHQ-2 Answer Date Recorded PHQ-2 score 3 08/03/2021 Area Deprivation Index Answer Date Ismael rded National Score (1-100), lower number is lower ri sk Not on file 06/28/2020 State Score (1-10), lower number is lower risk N ot on file 06/28/2020 Data from: https://www.neighborhoodatlas.medicine.[facility]/. Last address used for calculation Not [...] Description 02/08/2025 10:45 AM EDT [facility] [address] [address] Yoly Miller APRN.LABELLING MACHINE OPERATOR [address] [place] [address] Just my yearly for my MS 07/21/2025 10:30 AM [facility] Hematology/Oncology [address] [place] [address] [place] [address] [place] documented as of this encounter Visit Diagnoses Not on filedocumented in this encounter Care Teams Manager Cardiology Relationship Specialty Start Date End Date Jayme Franklin MD PCP - General Internal Medicine 08/12/13 documented as of this encounter
--- OUTSIDE RECORDS SUMMARY | 2025-01-31 12:56 | XMS_ITS | Encounter Summary ---
Author Organization [facility] Address [address] [place] [address] Care Team Providers Care Shaft Headman Name Role Phone Jayme Franklin MD Primary Care Provider [phone] Source Comments In the event this information is protected by the Federal Confidentiality of Alcohol and Drug AbusePatient Records regulations: The Federal rules restrict any use of the information to criminally investigate or prosecute any alcohol or drug abuse patient.[facility] Encounter Details Date Type Department Care Team (Late st Contact Info) Description 04/02/2019 [facility] [place] [facility] [place] [phone] Yoly Miller, ONEIDA.[place] [phone] RE: Non-Urgent Medical Question Social History Tobacco [...] Contact Info) Description 02/08/2025 10:45 AM EDT [address] [address] Yoly Miller, ONEIDA.MEDICAL APPOINTMENT SCHEDULER [address] [place] [address] Just my yearly for my MS 07/21/2025 10:30 AM EST [facility]fusion [facility] Hematology/Oncology [address] [place] [address] [place] [address] [place] documented as of this encounter Visit Diagnoses Not on filedocumented in this encounter Care Teams Shaft Headman Relationship Specialty Start Date End Date Jayme Franklin MD PCP - General Internal Medicine 08/12/13 documented as of this encounter
--- OUTSIDE RECORDS SUMMARY | 2025-01-31 12:56 | XMS_ITS | Encounter Summary ---
Author Organization [facility] Address [address] [place], [place] [phone] Care Team Providers Care Mill Operator Head Name Role Phone Jayme Franklin MD Primary Care Provider [phone] Source Comments In the event this information is protected by the Federal Confidentiality of Alcohol and Drug AbusePatient Records regulations: The Federal rules restrict any use of the information to criminally investigate or prosecute any alcohol or drug abuse patient.[facility] Reason for Referral * MRI/CT (Routine) - Closed Specialty Diagnoses / Procedures Referred By Contac t Referred To Contact MR IMAGING Diagnoses Multiple sclerosis (HCC) Procedures MRI BRAIN WO/W IVCON MRI BRAIN BRAIN STEM W/O W/CONTRAST MATERIAL Yoly Miller APRN.CNP [address] [place] [address] Phone: tel: fax: MR IMAGING [id number] Referral ID Status Reason Start Date Expiration Date V isits Requested Visits Authorized [id number] Closed Auto-Generate d Referral 11/01/2023 07/23/2024 1 1 Encounter Details Date Type Department Care Team (Late st Contact Info) Description 08/22/2023 [facility] [address] [address] Yoly Miller APRN.READING INTERVENTION TEACHER [address] [place] [address] MRI Social History Tobacco Use Types Packs/Day Years Used Date Smoking Tobacco: Never Passive Smoke Exposure: Yes Smokeless Tobacco: Never Alcohol Use Standard Drinks/Week Comments No 0 (1 standard drink = 0.6 oz pur e alcohol) PHQ-2 Answer Date Recorded PHQ-2 score 3 08/31/2022 Area Deprivation Index Answer Date Ismael rded National Score (1-100), lower number is lower ri sk 63 01/11/2023 State Score (1-10), lower number is lower risk 4 01/11/2023 Data from: https://www.neighborhoodatlas.[facility].edu/. Last address used for calculation [address] [place] [address] 01/11/2023 Comments No Sex and Gender [...] of Assessment Author No 01/06/2015 2:50 PM DANIELT Jackie Warren Ma * Are you blind or do you have serious difficulty seeing, even when wearing glasses? Answer Date of Assessment Author No 01/06/2015 2:50 PM DANIELT Jackie Warren Ma * Do you have serious difficulty walking or climbing stairs? Answer Date of Assessment Author No 01/06/2015 2:50 PM Jackie Porter Ma * Do you have difficulty dressing or bathing? Answer Date of Assessment Author No 01/06/2015 2:50 PM Jackie Porter Ma * Because of a physical, mental, or emotional condition, do you have difficulty doing errands alone such as visiting a doctor's office or shopping? Answer Date of Assessment Author No 01/06/2015 2:50 PM EDT Briana Haro Jackie documented as of this encounter Mental Status * Because of a physical, mental, or emotional condition, do you have serious difficulty concentrating, remembering, or making decisions? Answer Entry Date Author No 01/06/2015 2:50 PM EDT Jackie Warren Ma documented in this encounter Plan of Treatment Upcoming Encounters Date Type Department Care Team (Latest Contact Info) Description 02/08/2025 10:45 AM EDT [facility] [address] [address] Yoly Miller, SHELTER DIRECTOR.READING INTERVENTION TEACHER [address] [place] [address] Just my yearly for my MS 07/21/2025 10:30 AM [facility] Hematology/Oncology [address] [place] [address] [place] [address] [place] documented as of this encounter Results * MRI BRAIN WO/W IVCON (11/14/2023 1:20 PM EDT) Anatomical Region Laterality Modality Head Magnetic Resonan ce 11/14/2023 1:20 PM EDT Impressions 11/14/2023 3:01 PM EDT IMPRESSION: Multiple intracranial white matter [...] and assume there are 5 lumbar-type vertebrae. Framing Mill Supervisor: PSCB Transcribe Date/Time: Nov 14 2023 2:47P Dictated by : LEAH MURILLO MD This examination was interpreted and the report reviewed and electronically signed by: LEAH MURILLO MD on Nov 14 2023 2:59PM EST Narrative 11/14/2023 3:01 PM EDT * * *Final Report* * * DATE OF EXAM: Nov 14 2023 1:20PM [facility] [id number] - MRI BRAIN WO/W IVCON / [...] Improvement: None. New Enhancing Lesions: None T2 [place] of Disease: Mild. Parenchymal Volume Loss: None. [...] signal intensity and morphology. Cord T2 Plaque [place]: None New T2 Lesions: None Interval Cord [...] by greater than or equal to 2mm). Procedure Note Provider, [facility] - 11/14/2023 * * *Final Report* * * DATE OF EXAM: Nov 14 2023 1:20PM DAMI Curtis - MRI BRAIN WO/W IVCON / PROCEDURE [...] Improvement: None. New Enhancing Lesions: None T2 [place] of Disease: Mild. Parenchymal Volume Loss: None. [...] signal intensity and morphology. Cord T2 Plaque [place]: None New T2 Lesions: None Interval Cord [...] and assume there are 5 lumbar-type vertebrae. Framing Mill Supervisor: PSCB Transcribe Date/Time: Nov 14 2023 2:47P Dictated by : LEAH MURILLO MD This examination was interpreted and the report reviewed and electronically signed by: LEAH MURILLO MD on Nov 14 2023 2:59PM EST Yoly Miller APRN.READING INTERVENTION TEACHER MRI-[facility]AMA Final Result documented in this encounter Visit Diagnoses Diagnosis Multiple sclerosis (HCC)- Primary Multiple sclerosis Multiple sclerosis (HCC) Multiple sclerosis documented in this encounter Care Teams Mill Operator Head Relationship Specialty Start Date End Date Jayme Franklin MD PCP - General Internal Medicine 08/12/13 documented as of this encounter
--- OUTSIDE RECORDS SUMMARY | 2025-01-31 12:56 | XMS_ITS | Encounter Summary ---
Author Organization [facility] Address [address] [place] [address] Care Team Providers Care Tool Design Checker Name Role Phone Jayme Franklin MD Primary Care Provider [phone] Source Comments In the event this information is protected by the Federal Confidentiality of Alcohol and Drug AbusePatient Records regulations: The Federal rules restrict any use of the information to criminally investigate or prosecute any alcohol or drug abuse patient.[facility] Encounter Details Date Type Department Care Team (Late st Contact Info) Description 07/30/2021 Get Medical Advice [facility] [address] [place], [place] [phone] Yoly Miller, ONEIDA.ELECTRICIAN RECTIFIER MAINTENANCE [address] [phone] Tired Social History Tobacco Use Types Packs/Day Years [...] N ot on file 06/28/2020 Data from: https://www.neighborhoodatlas.medicine.[facility]/. Last address used for calculation Not on [...] Contact Info) Description 02/08/2025 10:45 AM EDT [facility] [address] [address] Yoly Miller APRN.ELECTRICIAN RECTIFIER MAINTENANCE [address] [place] [address] Just my yearly for my MS 07/21/2025 10:30 AM [facility] Hematology/Oncology [address] [place] [address] [place] [address] [place] documented as of this encounter Visit Diagnoses Not on filedocumented in this encounter Care Teams Tool Design Checker Relationship Specialty Start Date End Date Jayme Franklin MD PCP - General Internal Medicine 08/12/13 documented as of this encounter
--- OUTSIDE RECORDS SUMMARY | 2025-01-31 12:56 | XMS_ITS | Encounter Summary ---
Author Organization [facility] Address [address] [place] [address] Care Team Providers Care Manager Hiv Name Role Phone Jayme Franklin MD Primary Care Provider [phone] Source Comments In the event this information is protected by the Federal Confidentiality of Alcohol and Drug AbusePatient Records regulations: The Federal rules restrict any use of the information to criminally investigate or prosecute any alcohol or drug abuse patient.[facility] Encounter Details Date Type Department Care Team (Late st Contact Info) Description 11/08/2021 Get Medical Advice [facility] [address] [place], [place] [phone] Yoly Miller, ONEIDA.PRACTICAL NURSING FACULTY [address] [phone] Urine sample Social History Tobacco Use Types Packs/Day Years [...] N ot on file 06/28/2020 Data from: https://www.neighborhoodatlas.medicine.[facility]/. Last address used for calculation [...] suspected to have Coronavirus/COVID-19? No / Unsure 2021 10:23 AM EDT documented as of this encounter [...] Contact Info) Description 02/08/2025 10:45 AM EDT [place] [phone] Yoly Miller, ONEIDA.PRACTICAL NURSING FACULTY [address] [place] [address] Just my yearly for my MS 07/21/2025 10:30 AM [facility] Hematology/Oncology [address] [place] [address] [place] [address] [place] documented as of this encounter Visit Diagnoses Not on filedocumented in this encounter Care Teams Manager Hiv Relationship Specialty Start Date End Date Jayme Franklin MD PCP - General Internal Medicine 08/12/13 documented as of this encounter
--- OUTSIDE RECORDS SUMMARY | 2025-01-31 12:56 | XMS_ITS | Clinical Summary ---
Author Organization [facility] Address [address] [place] [address] Care Team Providers Care Road Production General Manager Name Role Phone Jayme Franklin MD Primary Care Provider [phone] Allergies Active Allergy Reactions Criticality Noted Date Comments Interferon Beta-1a Hives,Shortness of Breath Medium 01/15/2014 Pt was seen at ED for bronchospasms, hives and treated. Glatiramer (Copolymer 1) Rash Low 04/14/2014 Medications * This document contains information received from the source organization and may not represent a complete record from that organization. NORGESTIMATE-ET HINYL ESTRADIOL (TRI-PREVIFEM, 28, ORAL)Indication s:Numbness in both hands,Scoliosis ,Numbness in both legs Take by mouth. Active levothyroxine (SYNTHROID) 75 mcg tabletIndicatio ns:Numbness in both hands,Scoliosis ,Numbness in both legs Take 75 mcg by mouth daily before breakfast. Active ferrous sulfate 325 mg (65 mg iron) tablet Take 1 tablet by mouth twice daily. 0 10/05/2015 Active Cholecalciferol , Vitamin D3, 2,000 unit cap TAKE ONE CAPSULE BY MOUTH EVERY DAY 30 capsule 5 03/08/2017 Active ARIPiprazole (ABILIFY) 10 mg tablet TAKE 1 TABLET BY MOUTH EVERYDAY AT BEDTIME 11/06/2020 Active baclofen (LIORESAL) 10 mg tablet Take 1 tablet by mouth at bedtime as needed. Take 1 tablet by mouth before bed daily 30 tablet 11 09/02/2022 Active venlafaxine ER (EFFEXOR XR) 150 mg 24 hr capsule Take 1 capsule by mouth every afternoon. 07/30/2023 Active dextroamphetami ne-amphetamine (ADDERALL) 20 mg tabletIndicatio ns:Chronic fatigue syndrome Take 1 tablet by mouth two times a day for 30 days. 04/24/2024 Active oxybutynin ER (DITROPAN XL) 10 mg 24 hr tablet Take 1 tablet by mouth once daily. 30 tablet 5 04/24/2024 Active Active Problems Problem Noted Date Diagnosed Date Encounter for long-term (current) use of medicat ions 07/14/2017 History of PCOS 10/05/2015 Migraine without aura and wi thout status migrainosus, not intractable 08/16/2015 Memory disorder 08/11/2015 Frequent UTI 08/11/2015 Headache 01/20/2015 Iron deficiency anemia 01/15/2015 Anemia 01/13/2015 Bladder dysfunction 07/08/2014 Backache 07/08/2014 Multiple sclerosis 04/24/2014 Demyelinating changes in brain 12/01/2013 Adrenogenital disorders 04/12/2005 Precocious sexual developmen t and puberty, not elsewhere classified 04/12/2005 Encounters Date Type Department Care Team Description 01/13/2025 10:30 AM EDT Infusion Center Hematology/Oncology [address] [place] [address] [place] [address] Multiple sclerosis (HCC) (Primary Dx) 01/07/2025 Orders Only [address] [address] Yoly Miller APRN.CNP 01/06/2025 Travel 12/24/2024 [facility] Medical Advice [address] [address] Yoly Miller APRN.CNP Work note for breaks 11/30/2024 [facility] Medical Advice [address] [address] Yoly Miller APRN.CNP Doctor's note for work from Last 3 Months Family History Medical History Relation Comments Diabetes Father COPD Mother crohns Mother No Ocular Disease Other Relation Status Comments Father Mother Other Social History Tobacco Use Types Packs/Day Years Used Date Smoking Tobacco: Never Passive Smoke Exposure: Yes Smokeless Tobacco: Never Tobacco Cessation:Counseling Given: Not Answered Alcohol Use Standard Drinks/Week Comments No 0 (1 standard drink = 0.6 oz pur e alcohol) PHQ-2 Answer Date Recorded PHQ-2 score 2 01/26/2025 Area Deprivation Index Answer Date Ismael rded National Score (1-100), lower number is lower ri sk 63 01/11/2023 State Score (1-10), lower number is lower risk 4 01/11/2023 Data from: https://www.neighborhoodatlas.medicine.[facility].edu/. Last address used for calculation [address] [place] [address] [address] 01/11/2023 Comments No Sex and Gender Information Value Date Recorded Sex Assigned at Female 07/21/2021 4:31 PM EST Legal Sex Female 7:18 AM EST Gender Identity Female 07/21/2021 4:31 PM EST Sexual Orientation Straight 07/21/2021 4: 31 PM EST Last Filed Vital Signs Vital Sign Reading Time Taken Comments Blood Pressure 133/84 01/13/2025 2:22 PM EDT Pulse 86 01/13/2025 2:22 PM EDT Temperature 36.8 C (98.3 F) 01/13/2025 2:22 PM EDT Respiratory Rate 16 01/13/2025 2:22 PM EDT Oxygen Saturation 96% 01/13/2025 2:22 PM EDT Inhaled Oxygen Concentration - - Weight 124.4 kg (274 lb 4 oz) 12/29/2023 1:43 PM EDT Height 167.6 cm (5' 6 ) 12/29/2023 1:43 PM EDT Body Mass Index 44.27 12/29/2023 1:43 PM EDT Plan of Treatment Upcoming Encounters Date Type Department Care Team (Latest Contact Info) Description 02/08/2025 10:45 AM EDT [facility] [address] [phone] Yoly Miller, PERSONAL COMPUTER NETWORK ENGINEER.GOLF COURSE KEEPER [address] [place] [address] Just my yearly for my MS 07/21/2025 10:30 AM EST Infusion Center Hematology/Oncology [address] [place] [address] [place] [address] [employer] Health Maintenance Due Date Last Done Comments Anxiety Screening 11/06/2015 Depression Screening 11/06/2015 Cervical Cancer Screening 2018 DTaP,Tdap,Td Vaccine (7 - Td or Tdap) 01/19/2020 01/18/2010, 11/06/2001, 11/26/1999, Additional history exists Covid-19 Vaccine (3 - 2023-2 5 season) 2024 04/24/2021, 04/01/2021 Influenza Vaccine (#1) 2025 Hepatitis B Vaccine Completed 05/18/1998, 01/07/1998, 1997 HIV Screening Completed 10/05/2017 Hepatitis C Screening Completed 10/05/2017 Procedures Procedure Name Priority Date/Time Associated Diagnosis Comments CBC + DIFF Routine 01/13/2025 10:25 AM EDT Multiple sclerosis (HCC) HIV 1/2 COMBO WITH REFLEX TO DIFFERENTIATION Routine 10/05/2017 11:31 AM EDT Multiple sclerosis (HCC) HEP REMOTE PANEL BL Routine 10/05/2017 1 1:31 AM EDT Multiple sclerosis (HCC) from Last 3 Months or Most Recently Relevant to Health Maintenance Results * COMPLETE BLOOD COUNT AND DIFFERENTIAL (01/13/2025 10:25 AM EDT) WBC 9.22 3.70 - 11.00 k/uL 01/13/2025 10:29 AM EDT [facility] RBC 4.81 3.90 - 5.20 m/uL 01/13/2025 10:29 AM EDT [facility] Hemoglobin 13.8 11.5 - 15.5 g/dL 01/13/2025 10:29 AM EDT [facility] Hematocrit 41.5 36.0 - 46.0 % 01/13/2025 10:29 AM EDT [facility] MCV 86.3 80.0 - 100.0 fL 01/13/2025 10:29 AM EDT [facility] MCH 28.7 26.0 - 34.0 pg 01/13/2025 10:29 AM EDT [facility] MCHC 33.3 30.5 - 36.0 g/dL 01/13/2025 10:29 AM EDT [facility] RDW-CV 12.9 11.5 - 15.0 % 01/13/2025 10:29 AM EDT [facility] Platelet Count 377 150 - 400 k/uL 01/13/2025 10:29 AM EDT [facility] MPV 9.9 9.0 - 12.7 fL 01/13/2025 10:29 AM EDT [facility] Neutrophils % 66.7 % 01/13/2025 10:29 AM EDT [facility] Abs Neut 6.14 1.45 - 7.50 k/uL 01/13/2025 10:29 AM EDT [facility] Lymphocytes % 24.7 % 01/13/2025 10:29 AM EDT [facility] Abs Lymph 2.28 1.00 - 4.00 k/uL 01/13/2025 10:29 AM EDT [facility] Monocytes % 5.9 % 01/13/2025 10:29 AM EDT [facility] Abs Dillon 0.54 <0.87 k/uL 01/13/2025 10:29 AM EDT [facility] Eosinophils % 1.7 % 01/13/2025 10:29 AM EDT [facility] Abs Eosin 0.16 <0.46 k/uL 01/13/2025 10:29 AM EDT [facility] Basophils % 0.5 % 01/13/2025 10:29 AM EDT [facility] Abs Baso 0.05 <0.11 k/uL 01/13/2025 10:29 AM EDT [facility] Immature Granulocytes % 0.5 % 01/13/2025 10:29 AM EDT [facility] Abs Immature Gran 0.05 <0.10 k/uL 025 10:29 AM EDT [facility] NRBC 0.0 /100 WBC 01/13/2025 10:29 AM EDT [facility] Absolute nRBC <0.01 <0.01 k/uL 01/13/2025 10:29 AM EDT [facility] Diff Type Auto 01/13/2025 10:29 AM EDT [facility] Blood BLOOD SPECIMEN / Unknown Venipuncture / Unknown 01/13/2025 10:25 AM EDT 01/13/2025 10:27 AM EDT us Yoly Miller APRN.CNP LABORATORY Final Result [facility] [address] [place] [address] * HIV 1,2 COMBO (AG/AB) (10/05/2017 11:31 AM EDT) HIV 12 Combo (Ag/Ab) Non Reactive Non Reactive 10/05/2017 8:47 PM EDT [facility] Comment: (NOTE) HIV Information: [place] Rev. Code 3701.243(E): This information has been disclosed to you from confidential records protected from disclosure by state law. You shall make no further disclosure of this information without the specific, written, and informed release of the individual to whom it pertains, or as otherwise permitted by state law. A general authorization for the release of medical or other information is not sufficient for the purpose of the release of HIV test results or diagnoses. Blood specimen (specimen) BLOOD SPECIMEN / Unknown 10/05/2017 11:31 AM EDT 10/05/2017 11:33 AM EDT us Autumn Aguilar MD LABORATORY Final Result [facility] [address] [place] [address] * HEP REMOTE PANEL BL (10/05/2017 11:31 AM EDT) Hep B Core Ab, Total Negative Negative 10/06/2017 1:10 PM EDT [facility] Hep C Antibody IA Negative Negative 10/06/2017 1:10 PM EDT [facility] HBsAg Negative Negative 10/06/2017 1:10 PM EDT [facility] Hep B Surface Ab, Qual Negative Negative 10/06/2017 1:10 PM EDT [facility] Comment:NEGATIVE Blood specimen (specimen) BLOOD SPECIMEN / Unknown 10/05/2017 11:31 AM EDT 10/05/2017 11:33 AM EDT us Autumn Aguilar MD LABORATORY Final Result [facility] [address] [place] [address] from Last 3 Months or Most Recently Relevant to Health Maintenance Insurance MEDICAID Care Teams Road Production General Manager Relationship Specialty Start Date End Date Jayme Franklin MD PCP - General Internal Medicine 08/12/13
== END 2025-01-31 12:50 | disposition home or self-care (01) ==
LOC: RAD 12:52
PROVIDERS: PCP Family Medicine; Visit Provider Podiatrist Foot & Ankle Surgery
DX: M79.672 Pain in left foot (principal); S92.352D Displaced fracture of fifth metatarsal bone, left foot, subsequent encounter for fracture with routine healing
CPT/HCPCS: 73630

== ENCOUNTER 2025-03-03 08:55 | Outpatient (OUT) | payer OTHER, SELFPAY ==
--- OUTSIDE RECORDS SUMMARY | 2024-09-16 09:18 | XMS_ITS ---
Author Organization [facility] in [place] Address [address] [place] [address] Care Team Providers Care Software Engineering Analyst Name Role Phone Jayme Franklin MD Primary Care Provider Unavailab Kimo Zimmer Unavailable [phone] REASON FOR VISIT pain medication request Medications Medication SIG (Take, Route, Frequency, Duration) Notes Start Date End Date Status HYDROcodone-Acetaminophen 5-325 MG 1 tablet as needed Orally every 6 hrs for 7 days 09/18/2024 Active Norgestimate-Ethinyl Estradiol Active Ondansetron HCl 4 MG 1 tablet Orally Once a day for 7 days As needed for nausea 08/19/2024 Active Vitamin D3 Ultra Strength 12 5 MCG (5000 UT) 1 capsule Orally Once a day for 30 days 07/30/2024 Active ARIPiprazole 15 MG 1 tablet Orally Once a day 07/30/2024 Unknown Cephalexin 500 MG 1 capsule Orally bid for 7 days 08/19/2024 Active Dextroamphetamine Sulfate ER 15 MG 1 capsule in the morning Orally Once a day 07/30/2024 Active Ferrous Sulfate 325 (65 Fe) MG 1 tablet Orally Three times a Week 07/30/2024 Active Levothyroxine Sodium 75 MCG 1 tablet in the morning on an empty stomach Orally Once a day 07/30/2024 Active metFORMIN HCl 500 MG/5ML 5 mL with a flor l Orally Once a day 07/30/2024 Active Adipex-P 37.5 MG 1 tablet before breakfast Orally Once a day Active Aspirin 325 MG 1 tablet Orally bid for 30 days 08/19/2024 Active Abilify 15 MG 1 tablet Orally Once a day 07/30/2024 Active Social History Sex Assigned At : Social History Observation Description Sex Assigned At Female Encounters Encounter Location Date Provider Diagnosis [facility] (PODIATRY) [address] [place] [address] [place] [address] 09/16/2024 Kimo Oakley Plan Of Treatment Medication Medication Name Sig Start Date Stop Date Notes HYDROcodone-Acetaminophen 5- 325 MG 1 tablet as needed Orally every 6 hrs for 7 days 09/18/2024 Progress Notes * Natalie CARSONDOB: [birth year] (28 yo F)Acc No.[id number]:09/16/2024 Patient: Natalie RAMOS :1995 A ge:28 Y S ex:Female Address:[address] [place] [address], [phone] * Refills Refill HYDROcodone-Acetaminophen Tablet, 5-325 MG, Orally, 28 Tablet, 1 tablet as needed, every 6 hrs, 7 days, Refills=0 Subjective: * Chief Complaints: * P ain medication request * Medical History: * Surgical History: * Hospitalization/Major Diagno stic Procedure: * Medications: T akingAbilify(ARIPiprazole) 15 MG Tablet 1 tablet Orally Once a day Adipex-P(Phentermine HCl) 37.5 MG Tablet 1 tablet before breakfast Orally Once a day Aspirin 325 MG Tablet 1 tablet Orally bid Cephalexin 500 MG Capsule 1 capsule Orally bid Dextroamphetamine Sulfate ER 15 MG Capsule Extended Release 24 Hour 1 capsule in the morning Orally Once a day Ferrous Sulfate 325 (65 Fe) MG Tablet 1 tablet Orally Three times a Week HYDROcodone-Acetaminophen 5-325 MG Tablet 1 tablet as needed Orally every 4 hrs Levothyroxine Sodium 75 MCG Tablet 1 tablet in the morning on an empty stomach Orally Once a day metFORMIN HCl 500 MG/5ML Solution 5 mL with a meal Orally Once a day Norgestimate-Ethinyl Estradiol Ondansetron HCl 4 MG Tablet 1 tablet Orally Once a day As needed for nauseaVitamin D3 Ultra Strength 125 MCG (5000 UT) Capsule 1 capsule Orally Once a day Taking Abilify(ARIPiprazole) 15 MG Tablet 1 tablet Orally Once a day Taking Adipex-P(Phentermine HCl) 37.5 MG Tablet 1 tablet before breakfast Orally Once a day Taking Aspirin 325 MG Tablet 1 tablet Orally bid Taking Cephalexin 500 MG Capsule 1 capsule Orally bid Taking Dextroamphetamine Sulfate ER 15 MG Capsule Extended Release 24 Hour 1 capsule in the morning Orally Once a day Taking Ferrous Sulfate 325 (65 Fe) MG Tablet 1 tablet Orally Three times a Week Taking HYDROcodone-Acetaminophen 5-325 MG Tablet 1 tablet as needed Orally every 4 hrs Taking Levothyroxine Sodium 75 MCG Tablet 1 tablet in the morning on an empty stomach Orally Once a day Taking metFORMIN HCl 500 MG/5ML Solution 5 mL with a meal Orally Once a day Taking Norgestimate-Ethinyl Estradiol Taking Ondansetron HCl 4 MG Tablet 1 tablet Orally Once a day As needed for nauseaTaking Vitamin D3 Ultra Strength 125 MCG (5000 UT) Capsule 1 capsule Orally Once a day UnknownARIPiprazole 15 MG Tablet 1 tablet Orally Once a day Medication List reviewed and reconciled with the patientUnknown ARIPiprazole 15 MG Tablet 1 tablet Orally Once a day Medication List reviewed and reconciled with the patient Objective: * Vitals: * Physical Examination: Assessment: Plan: * Treatment: * Procedure Codes: * true * Date: Generated for Alisha leigh/Raymond/Neetu on: 0 03/03/2025 08:58 AM EDT
--- OUTSIDE RECORDS SUMMARY | 2024-09-25 05:30 | XMS_ITS ---
Author Organization [facility] [place] Address [address] [place] [address] Care Team Providers Care Cotton Washer Name Role Phone Jayme Franklin MD Primary Care Provider Unavailab Kimo Zimmer Unavailable [phone] Allergies Allergen (clinical drug ingredient) Drug/Non Drug Allergy documented on EMR Reaction Allergy Type Onset Date Status Avonex Unknown Drug Allergy Active glatiramer Copaxone Unknown Drug Allergy Active Reason For Referral Diagnosis 1 Nondisplaced fractur e of fifth metatarsal bone, left foot, initial encounter for closed fracture (S92.355A) Referral Organization [facility] (PODIAT[facility]) Referring Provider First Name Kimo Referring [...] Encounters Encounter Location Date Provider Diagnosis [facility] (PODIATRY) [address] [place] [address] [place] [address] 09/25/[address] [facility] Nondisplaced fracture of fifth metatarsal bone, left [...] * Natalie CARSONDOB: 8 (28 yo F)Acc No.[id number]:09/25/2024 Progress Note Patient: Natalie RAMOS Provider: Kj Oakley DPM, MS :1995 A ge:28 Y S ex:Female Date:09/25/2024 Address:[address] [place], [place] [id number] Pcp:Jayme Franklin MD Check In:09:18 AM ESTCheck [...] M usculoskeletal: Bone/Joint Symptoms d enies. C chcf Pain d enies.?Leg cramps d enies. N [...] No SOI. 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 No calf pain on squeeze. No [...] 09/25/2024 Generated for Printi lu/Raymond/Nancyransmitting on: 0 03/03/2025 08:58 AM EDT History and Physical Notes * HPI [...] No SOI. 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 No calf pain on squeeze. No [...]
--- OUTSIDE RECORDS SUMMARY | 2025-02-25 13:00 | XMS_ITS | Encounter Summary ---
Author Organization [facility] Address [address] [facility] [place] [address] Care Team Providers Care Show Jumping Instructor Name Role Phone Jayme Franklin MD Primary Care Provider [phone] Jayme Franklin MD Unavailable Reason for Referral * Medications - Closed Specialty Diagnoses / Procedures Referred By Contprice t Referred To Contact Diagnoses Multiple sclerosis (HCC) Jayme Franklin MD [address] [place] [address] Phone: tel: fax: Referral ID Status Reason Start Date Expiration Date Visits Re quested Visits Authorized [id number] Closed 1 1 Reason for Visit * Reason Comments Follow-up Yeast infection on b ikini lineADD medication Anxiety Encounter Details Date Type Department Care Team (Late st Contact Info) Description 02/25/2025 1:00 PM EDT Office Visit [facility] [address] [place] [address] Jayme Franklin MD [address] [place] [id number] Bipolar 1 disorder, depressed, mild (HCC) (Primary Dx); JEFF (generalized anxiety disorder) ; Multiple sclerosis (HCC); Insulin resistance; Class 3 severe obesity due to excess calories without serious comorbidity with body mass index (BMI) of 45.0 to 49.9 in adult ([facility]); Annual physical exam; Bonita aviles Social History Tobacco Use Types Packs/Day Years [...] material from your doctor or pharmacy? Never 02/24/2025 Humiliation, Afraid, Rape, and Kick questionnair e Answer Date Recorded Within the last year, have y ou been afraid of your partner or ex-partner? No 02/24/2025 Within the last year, have y ou been humiliated or emotionally abused in other ways by your partner or ex-partner? No Within the last year, have y ou been kicked, hit, slapped, or otherwise physically hurt by your partner or ex-partner? No 02/24/2025 Within the last year, have y ou been raped or forced to have any kind of sexual activity by your partner or ex-partner? No 02/24/2025 Social Connection and Isolation Panel [NHANES] A nswer Date Recorded In a typical week, how many times do you talk on the phone with family, friends, or neighbors? Twice a week 02/25/20 How often do you get togethe r with friends or relatives? Once a week 02/24/2025 How often do you attend [facility] or sabianist services? Never 02/24/2025 Do you belong to any clubs o r organizations such as amish groups, unions, fraternal or athletic groups, or school groups? No 02/24/2025 How often do you attend meet ings of the clubs or organizations you belong to? Never 02/24/2025 Are you , , di vorced, , never , or living with a partner? Living with partner 02/24/2025 AUDIT-C Answer Date Recorded Q1: How often do you have a drink containing alc ohol? Monthly or less 02/24/2025 Q2: How many drinks containi ng alcohol do you have on a typical day when you are drinking? 3 or 4 02/24/2025 Q3: How often do you have si x or more drinks on one occasion? Less than monthly 02/24/2025 Overall Financial Resource Strain (CARDIA) Answe r Date Recorded How hard is it for you to pa y for the very basics like food, housing, medical care, and heating? Somewhat hard 02/24/2025 [facility] of Occupat ional Health - Occupational Stress Questionnaire Answer Date Recorded Do you feel stress - tense, restless, nervous, or anxious, or unable to sleep at night because your mind is troubled all the time - these days? To some extent 02/24/2025 Exercise Vital Sign Answer Date Recorde d On average, how many days pe r week do you engage in moderate to strenuous exercise (like a brisk walk)? 0 days 02/24/2025 On average, how many minutes do you engage in exercise at this level? 0 min 02/24/2025 Hunger Vital Sign Answer Date Recorded Within the past 12 months, y ou worried that your food would run out before you got the money to buy more. Sometimes true Within the past 12 months, t he food you bought just didn't last and you didn't have money to get more. Sometimes true 10/2024 PRAPARE - Transportation Answer Date Re corded In the past 12 months, has l ack of transportation kept you from medical appointments or from getting medications? No 10/2024 In the past 12 months, has l ack of transportation kept you from meetings, work, or from getting things needed for daily living? No 02/24/2025 Housing Stability Vital Sign Answer Edgar e [...] place to sleep or slept in a [place] (including now)? No 09/17/2023 Housing Stability Vital Sign Answer Edgar e Recorded In the last 12 months, was t here a time when you were not able to pay the mortgage or rent on time? No 02/24/2025 In the past 12 months, how m any times have you moved where you were living? 0 02/24/2025 At any time in the past 12 m [facility], were you homeless or living in a [place] (including now)? No 02/24/2025 Comments No Sex and Gender Information Value Date Recorded Sex Assigned at Female 02/08/2023 3:48 PM EDT Legal Sex Female 6:57 PM EDT Gender Identity Female 02/08/2023 3:48 PM EDT Sexual Orientation Straight 02/08/2023 3: 48 PM EDT Travel History Travel Start Travel End [place] 02/01/2025 02/01/2025 documented as of this encounter Last Filed Vital Signs Vital Sign Reading Time Taken Comments Blood Pressure 124/78 02/25/2025 1:13 PM EDT Pulse 69 02/25/2025 1:13 PM EDT Temperature 36.2 C (97.1 F) 02/25/2025 1:13 PM EDT Respiratory Rate 20 02/25/2025 1:13 PM EDT Oxygen Saturation 98% 02/25/2025 1:13 PM EDT Inhaled Oxygen Concentration - - Weight 129 kg (284 lb) 02/25/2025 1:13 PM EDT Height 167.6 cm (5' 6 ) 02/25/2025 1:13 PM EDT Body Mass Index 45.84 02/25/2025 1:13 PM EDT documented in this encounter Progress Notes * Jayme Franklin MD - 02/25/2025 1:44 PM EDTAssociated Problem(s): Tinea cruris Rash appears fungal and start cream. * Jayme Franklin MD - 02/25/2025 1:44 PM EDTAssociated Problem(s): Multiple sclerosis (HCC) Worsening fatigue and resume adderall. Follow up with neurology. * Jayme Franklin MD - 02/25/2025 1:43 PM EDTAssociated Problem(s): Insulin resistance Repeat labs. * Jayme Franklin MD - 02/25/2025 1:43 PM EDTAssociated Problem(s): JEFF (generalized anxiety disorder) Worsening symptoms and increase abilify. Add buspar for symptoms. * Jayme Franklin MD - 02/25/2025 1:43 PM EDTAssociated Problem(s): Class 3 severe obesity due to excess calories without serious comorbidity with body mass index (BMI) of 45.0 to 49.9 in adult ([facility]) Weight loss indicated. * Jayme Franklin MD - 02/25/2025 1:43 PM EDTAssociated Problem(s): Bipolar 1 disorder, depressed, mild (HCC) Worsening symptoms and increase abilify. * Jayme Franklin MD - 02/25/2025 1:00 PM EDT Images from the original note were not included. Subjective Patient ID: Natalie Carson is a 29 y.o. female who presents for Follow-up (Yeast infection on bikini line/ADD medication) and Anxiety. Follow up bipolar, anxiety, and MS. Bipolar recently worse. Doesn't feel down or sad but no motivation. Doesn't want to do anything or be around others. Not getting things done around house and sits around all day. Not interacting well with others. No liam and not hyper or full of energy. Anxiety worse. Nervous and worry all the time. Stressed out and overwhelmed. Thought racing and hard to clear mind. MS unchanged. No weakness or focal deficits. Continues to have fatigue and worse without adderall. Following with neurology and on medication. Continues to have problems with weight. Due for labs. C/o rash in groin for several days. Red and irritated. Occasional burning and itchy. Not tried OTC. Anxiety Patient reports no chest pain, nausea, palpitations or shortness of breath. Review of [...] This Visit Bipolar 1 disorder, depressed, mild (HCC) - Primary Worsening symptoms and increase abilify. Relevant Medications ARIPiprazole (Abilify) 20 MG tablet Multiple sclerosis (HCC) Worsening fatigue and resume adderall. Follow up with neurology. Relevant Medications amphetamine-dextroamphetamine XR (Adderall XR) 20 MG 24 hr capsule JEFF (generalized anxiety disorder) Worsening symptoms and increase abilify. Add buspar for symptoms. Relevant Medications busPIRone (Buspar) 7.5 MG tablet Class 3 severe obesity due to excess calories without serious comorbidity with body mass index (BMI) of 45.0 to 49.9 in adult ([facility]) Weight loss indicated. Insulin resistance Repeat labs. Relevant Orders Insulin, fasting Tinea cruris Rash appears fungal and start cream. Relevant Medications clotrimazole (Lotrimin) 1 % cream Other Visit Diagnoses Annual physical exam Relevant Orders Basic metabolic panel CBC and differential Hepatic function panel Lipid panel Hemoglobin A1c TSH documented in this encounter Plan of Treatment Upcoming Encounters Date Type Department Care Team (Late st Contact Info) Description 04/02/2025 11:00 AM EDT Office Visit [facility] [address] [place] [address] Jayme Franklin MD [address] [place] [phone] Scheduled Orders Name Type Priority Associated Diagnoses Orde r Schedule Insulin, fasting Lab Routine Insulin resistance Expected: 02/25/2025 (Approximate), Expires: 02/25/2026 Basic metabolic panel Lab Routine Annual physical exam Expected: 02/25/2025 (Approximate), Expires: 02/25/2026 CBC and differential Lab Routine Annual physical exam Expected: 02/25/2025 (Approximate), Expires: 02/25/2026 Hepatic function panel Lab Routine Annual physical exam Expected: 02/25/2025 (Approximate), Expires: 02/25/2026 Lipid panel Lab Routine Annual physical exam Expected: 02/25/2025 (Approximate), Expires: 02/25/2026 Hemoglobin A1c Lab Routine Annual physical exam Expected: 02/25/2025 (Approximate), Expires: 02/25/2026 TSH Lab Routine Annual physical exam Expected: 02/25/2025 (Approximate), Expires: 02/25/2026 documented as of this encounter Visit Diagnoses Diagnosis Bipolar 1 disorder, depressed, mild (HCC)- Primary JEFF (generalized anxiety disorder) Generalized anxiety disorder Multiple sclerosis (HCC) Multiple sclerosis Insulin resistance Other abnormal glucose Class 3 severe obesity due to excess calories without serious comorbidity with body mass index (BMI) of 45.0 to 49.9 in adult ([facility]) Annual physical exam Routine general medical examination at a [facility] Tinea cruris Dermatophytosis of groin and perianal area documented in this encounter Care Teams Show Jumping Instructor Relationship Specialty Start Date End Date Jayme Franklin MD [address] [place] [id number] PCP - General Family Medicine 08/21/23 Jayme Franklin MD [address] [place] [address] PCP - [facility] 07/24/24 documented as of this encounter
--- OUTSIDE RECORDS SUMMARY | 2025-03-03 08:58 | XMS_ITS | Encounter Summary ---
Author Organization [facility] Address [address] [place] [address] Care Team Providers Care Grades 1 Thru 5 Teacher Name Role Phone Jayme Franklin MD Primary Care Provider [phone] Jayme Franklin MD Unavailable Encounter Details Date Type Department Care Team (Late st Contact Info) Description 02/25/2025 Bamboo flowsheet [facility] [address] [place] [phone] Jayme Franklin MD [address] [place] [id number] Social History Tobacco Use Types Packs/Day Years [...] week 02/24/2025 How often do you attend chur ch or sikh services? Never 02/24/2025 Do you belong to any clubs o r organizations such as alevism groups, unions, fraternal or athletic groups, or [...] medical care, and heating? Somewhat hard 02/24/2025 [facility] of Occupat ional Health - Occupational [...] any time in the past 12 m [facility], were you homeless or living in a [place] (including now)? No 02/24/2025 Comments No Sex and Gender Information Value Date Recorded Sex Assigned at Female 02/08/2023 3:48 PM EDT Legal Sex Female 6:57 PM EDT Gender Identity Female 02/08/2023 3:48 PM EDT Sexual Orientation Straight 02/08/2023 3: 48 PM EDT Travel History Travel Start Travel End [place] 02/01/2025 02/01/2025 documented as of this encounter Plan of Treatment Upcoming Encounters Date Type Department Care Team (Late st Contact Info) Description 04/02/2025 11:00 AM EDT Office Visit [facility] [address] [place] [address] Jayme Franklin MD [address] [place] [phone] documented as of this encounter Visit Diagnoses Not on filedocumented in this encounter Care Teams Grades 1 Thru 5 Teacher Relationship Specialty Start Date End Date Jayme Franklin MD [address] [place] [address] PCP - General Family Medicine 08/21/23 Jayme Franklin MD [address] [place] [address] PCP - [facility] 07/24/24 documented as of this encounter
--- OUTSIDE RECORDS SUMMARY | 2025-03-03 08:58 | XMS_ITS | Patient Health Record ---
Author Organization [facility] [place] Address [address] [place] [address] Care Team Providers Care Financial Coordinator Name Role Phone Jayme Franklin MD Primary Care Provider Unavailab Amrik Zimmer Unavailable [phone] Allergies Allergen (clinical drug ingredient) Drug/Non Drug Allergy documented on EMR Reaction Allergy Type Onset Date Status Avonex Unknown Drug Allergy Active glatiramer Copaxone Unknown Drug Allergy Active Results Component Value Reference Range Notes CBC AUTO DIFF (Not yet revie wed by provider) Interpretation: Performing Lab: Notes/Report: [facility] , White Blood Count 5.9 [...] Performing Lab: see note ML - [facility] LB XR chest 2V (Not yet reviewe d by provider) Interpretation: Performing Lab: Notes/Report: Source Facility: [facility]-[address] [place] [address] [place] [address] XRay Report Signed Patient: KASHIF JAQUEZ MR#: [id number] : 1995 Acct:[id number] Age/Sex: 28 / F ADM Date: 08/13/24 Loc: [facility] Attending Dr: Amrik Oakley D.P.M. Ordering Physician: Amrik Oakley D.P.M. Date of Service: 08/13/24 Procedure(s): XR chest 2V Accession Number(s): [id number] cc: Amrik Oakley D.P.M.; Jayme Franklin M.D. [place] [address] Patient Name: KASHIF JAQUEZ MRN: [id number] date: 1995 Sex: F Assigned Patient Location: [facility] Current Patient Location: [facility] Accession/Order Number: [id number] Exam Date: 08/13/2024 09:40 Report Date: 08/13/2024 10:30 At the request of: AMRIK OAKLEY Procedure: XR chest 2V PROCEDURE: XR chest 2V DATE: 08/13/2024 8:40 AM SENIOR SYSTEM OPERATOR COMPARISONS: 04/13/2023 CLINICAL INDICATION: 28 years Female Preop exam FINDINGS: The cardiomediastinal silhouette and pulmonary vasculature are within normal limits. The lungs are clear. There is no evidence of pleural effusion or pneumothorax. XR/XR chest 2V IMPRESSION: Chest radiograph is within normal limits. Electronically authenticated by: FABIO NULL Date: 08/13/2024 10:30 Dictated By: Fabio Null M.D. Signed By: 08/13/241031 DD/ 103 TD/TT: Peel Oven Tender: [place] [address] XRay Report Signed Patient: Joel JAQUEZ MR#: [id number] : 1995 Acct:[id number] Age/Sex: 28 / F ADM Date: 08/13/24 Loc: PST Attending Dr: Amrik Oakley D.P.M. Ordering Physician: Amrik Oakley D.P.M. Date of Service: 08/13/24 Procedure(s): XR chest 2V Accession Number(s): [id number] cc: Amrik Oakley D.P.M.; Jayme Fraknlin M.D. [place] [address] Patient Name: KASHIF JAQUEZ MRN: [id number] date: 1995 Sex: F Assigned Patient Loc ation: [facility] Current Patient Loca tion: [facility] Accession/Order Numb er: [id number] Exam Date: 08/13/2024 09:40 Report Date: 08/13/2024 10:30 At the request of: AMRIK OAKLEY Procedure: XR chest 2V PROCEDURE: XR chest 2V DATE: 08/13/2024 8:40 AM SENIOR SYSTEM OPERATOR COMPARISONS: 04/13/2023 CLINICAL INDICATION: 28 years Female [...] M.D. Signed By: 08/13/241031 DD/ 103 TD/TT: Peel Oven Tender: XR foot LT min 3V (Not yet r eviewed by provider) Interpretation: Performing Lab: Notes/Report: Source Facility: [place] [address] [place] [address] XRay Report Signed Patient: KASHIF JAQUEZ MR#: [id number] : 1995 Acct:[id number] Age/Sex: 28 / F ADM Date: 09/25/24 Loc: RAD Attending Dr: Amrik Oakley D.P.M. Ordering Physician: Amrik Oakley D.P.M. Date of Service: 09/25/24 Procedure(s): XR foot LT min 3V Accession Number(s): [id number] cc: Amrik Oakley D.P.M.; Jayme Franklin M.D. [place] [address] Patient Name: KASHIF JAQUEZ MRN: [id number] date: 1995 Sex: F Assigned Patient Location: [facility] Current Patient Location: [facility] Accession/Order Number: [id number] Exam Date: 09/25/2024 22:57 Report Date: 09/25/2024 22:58 At the request of: AMRIK OAKLEY DPJohn Procedure: XR foot LT min 3V LEFT [...] COMPLICATION. Impression dictated by: Blake Mcdonald Jr., D.O.09/25/2024 10:58 PM Dictation Location: [place] [address] Electronically authenticated by: [id number] Y Date: 09/25/2024 22:58 Dictated By: Blake Mcdonald M.D. Signed By: 09/25/244 DD/ 57 TD/TT: Peel Oven Tender: [place] [address] XRay Report Signed Patient: Joel JAQUEZ MR#: [id number] : 1995 Acct:[id number] Age/Sex: 28 / F ADM Date: 09/25/24 Loc: RAD Attending Dr: Amrik Oakley D.P.M. Ordering Physician: Amrik Oakley D.P.M. Date of Service: 09/25/24 Procedure(s): XR maría t LT min 3V Accession Number(s): [id number] cc: Amrik Oakley D.P.M.; Jayme Franklin M.D. [place] [address] Patient Name: KASHIF JAQUEZ MRN: [id number] date: 1995 Sex: F Assigned Patient Loc ation: RAD Current Patient Loca tion: RAD Accession/Order Numb er: [id number] Exam Date: 09/25/2024 22:57 Report Date: 09/25/2024 [...] COMPLICATION. Impression dictated by: Blake Mcdonald Jr., D.O.09/25/2024 10:58 PM Dictation Location: [place] [address] Electronically authenticated by: [id number] Y Date: 09/25/2024 22:58 Dictated By: Blake Mcdonald M.D. Signed By: 09/25/242300 DD/ 57 TD/TT: Peel Oven Tender: XR foot LT min 3V (Not yet r eviewed by provider) Interpretation: Performing Lab: Notes/Report: Source Facility: [facility]-[address] [place] [address] [place] [address] XRay Report Signed Patient: KASHIF JAQUEZ MR#: [id number] : 1995 Acct:[id number] Age/Sex: 28 / F ADM Date: 09/10/24 Loc: RAD Attending Dr: Amrik Oakley D.P.M. Ordering Physician: Amrik Oakley D.P.M. Date of Service: 09/10/24 Procedure(s): XR foot LT min 3V Accession Number(s): [id number] cc: Amrik Oakley D.P.M.; Jayme Franklin M.D. [place] [address] Patient Name: KASHIF JAQUEZ MRN: [id number] date: 1995 Sex: F Assigned Patient Location: [facility] Current Patient Location: [facility] Accession/Order Number: [id number] Exam Date: 09/11/2024 22:40 Report Date: 09/11/2024 22:40 At the request of: AMRIK OAKLEY DPM Procedure: XR foot LT min 3V XR [...] Corey Short M.D.09/11/2024 10:40 PM Dictation Location: [place] [address] Electronically authenticated by: [id number] Y Date: 09/11/2024 22:40 Dictated By: Corey Short M.D. Signed By: 09/11/242242 DD/ 39 TD/TT: Peel Oven Tender: [place] [address] XRay Report Signed Patient: Joel JAQUEZ MR#: [id number] : 1995 Acct:[id number] Age/Sex: 28 / F ADM Date: 09/10/24 Loc: [facility] Attending Dr: Amrik Oakley D.P.M. Ordering Physician: Amrik Oakley D.P.M. Date of Service: 09/10/24 Procedure(s): XR maría t LT min 3V Accession Number(s): [id number] cc: Amrik Oakley D.P.M.; Jayme Franklin M.D. [place] [address] Patient Name: KASHIF JAQUEZ MRN: [id number] date: 1995 Sex: F Assigned Patient Loc ation: RAD Current Patient Loca tion: [facility] Accession/Order Numb er: [id number] Exam Date: 09/11/2024 22:40 Report Date: 09/11/2024 [...] Corey Short M.D.09/11/2024 10:40 PM Dictation Location: [place] [address] Electronically authenticated by: [id number] Y Date: 09/11/2024 22:40 Dictated By: Corey Short M.D. Signed By: 09/11/242242 DD/ 39 TD/TT: Peel Oven Tender: FL fluoroscopy <1hr NON-READ (Not yet reviewed by provider) Interpretation: Performing Lab: Notes/Report: Source Facility: [place] [address] [place] [address] Fluoroscopy Report Signed Patient: KASHIF JAQUEZ MR#: [id number] : 1995 Acct:[id number] Age/Sex: 28 / F ADM Date: 08/19/24 Loc: SURGOUT Attending Dr: Amrik Oakley D.P.M. Ordering Physician: Amrik Oakley D.P.M. Date of Service: 08/19/24 Procedure(s): FL fluoroscopy <1hr NON-READ Accession Number(s): [id number] cc: Amrik Oakley D.P.M.; Jayme Franklin M.D. [place] [address] Patient Name: KASHIF JAQUEZ MRN: [facility]:[id number] date: 1995 Sex: F Assigned Patient Location: [facility] Current Patient Location: [facility] Accession/Order Number: [id number] Exam Date: 08/19/2024 12:20 Report Date: 08/26/2024 12:05 At the request of: AMRIK OAKLEY Procedure: FL fluoroscopy <1hr NON-READ EXAM: FL fluoroscopy <1hr NON-READ HISTORY: TECHNIQUE: FINDINGS: Please see Operative Report. Electronically authenticated by: ANABEL MUNOZ Date: 08/26/2024 12:05 Dictated By: AraceliRadiologist Signed By: 08/26/24 1208 DD/ 04 TD/TT: Peel Oven Tender: [place] [address] Fluoroscopy Report Signed Patient: Joel JAQUEZ MR#: [id number] : 1995 Acct:[id number] Age/Sex: 28 / F ADM Date: 08/19/24 Loc: SURGOUT Attending Dr: Amrik Oakley D.P.M. Ordering Physician: Amrik Oakley D.P.M. Date of Service: 08/19/24 Procedure(s): FL fluoroscopy <1hr NON-READ Accession Number(s): [id number] cc: Amrik Oakley D.P.M.; Jayme Franklin M.D. [place] [id number] Patient Name: KASHIF JAQUEZ MRN: [id number] date: 1995 Sex: F Assigned Patient Loc ation: SURGOUT Current Patient Loca tion: SURGOUT Accession/Order Numb er: [id number] Exam Date: 08/19/2024 12:20 Report Date: 08/26/2024 12:05 At the request of: AMRIK OAKLEY Procedure: FL fluoro scopy <1hr NON-READ EXAM: FL fluoroscopy <1hr NON-READ HISTORY: TECHNIQUE: FINDINGS: Please see Operative Report. Electronically authenticated by: ANABEL MUNOZ Date: 08/26/2024 12:05 Dictated By: Araceli,Radiologist Signed By: 08/26/24 1208 DD/ 1205 TD/TT: Peel Oven Tender: XR foot LT min 3V (Not yet r eviewed by provider) Interpretation: Performing Lab: Notes/Report: Source Facility: [place] [address] XRay Report Signed Patient: KASHIF JAQUEZ MR#: [id number] : 1995 Acct:[id number] Age/Sex: 28 / F ADM Date: 08/19/24 Loc: SURGOUT Attending Dr: Amrik Oakley D.P.M. Ordering Physician: Amrik Oakley D.P.M. Date of Service: 08/19/24 Procedure(s): XR foot LT min 3V Accession Number(s): [id number] cc: Amrik Oakley D.P.M.; Jayme Franklin M.D. [place] [id number] Patient Name: KASHIF JAQUEZ MRN: [id number] date: 1995 Sex: F Assigned Patient Location: SURGOUT Current Patient Location: Accession/Order Number: [id number] Exam Date: 08/19/2024 12:40 Report Date: 08/20/2024 [...] Ramírez M.D. Signed By: 08/20/2440 DD/ TD/TT: Peel Oven Tender: [place] [address] XRay Report Signed Patient: Joel JAQUEZ MR#: [id number] : 1995 Acct:[id number] Age/Sex: 28 / F ADM Date: 08/19/24 Loc: SURGOUT Attending Dr: Amrik Oakley D.P.M. Ordering Physician: Amrik Oakley D.P.M. Date of Service: 08/19/24 Procedure(s): XR maría t LT min 3V Accession Number(s): [id number] cc: Amrik Oakley D.P.M.; Jayme Franklin M.D. [place] [address] Patient Name: KASHIF JAQUEZ MRN: [id number] date: 1995 Sex: F Assigned Patient Loc ation: SURGOUT Current Patient Location: Accession/Order Numb er: [id number] Exam Date: 08/19/2024 12:40 Report Date: 08/20/2024 [...] Ramírez M.D. Signed By: 08/20/2440 DD/ TD/TT: Peel Oven Tender: Reason For Referral Diagnosis 1 Nondisplaced fractur e of fifth metatarsal bone, left foot, initial encounter for closed fracture (S92.355A) Referral Organization [facility] ([facility]) Referring Provider First Name Amrik Referring [...] Encounter Location Date Provider Diagnosis [facility]) [address] [place] [address] [place] [address] 08/19/2024 Amrik Oakley [facility] (PODIATRY) [address] [place] [address] [place] [address] 08/19/2024 Amrik Oakley [facility] [place] ([facility]) [address] [place] [address] [place] [address] 09/16/2024 Amrik Oakley [facility] [place] ([facility]) [address] [place] [address] [place] [address] 07/30/2024 Amrik Oakley Nondisplaced fracture of fifth metatarsal bone, left foot, initial encounter for closed fracture S92.355A [facility] [place] ([facility]) [address] [place] [address] [place] [address] 08/27/2024 Amrik Oakley Nondisplaced fracture of fifth metatarsal bone, left foot, initial encounter for closed fracture S92.355A [facility] [place] ([facility]) [address] [place] [address] [place] [address] 09/10/2024 Amrik Oakley Left foot pain M79.672 and Nondisplaced fracture of fifth metatarsal bone, left foot, initial encounter for closed fracture S92.355A [facility] [place] ([facility]) [address] [place] [address] [place] [address] 09/25/2024 Amrik Oakley Nondisplaced fracture of fifth metatarsal bone, left foot, initial encounter for closed fracture S92.355A ; Tinea pedis B35.3 and Left foot pain M79.672 [facility] [address] [place] [address] 08/19/2024 Amrik Oakley Assessments Encounter Date Diagnosis [...] [place] [address] [place] [phone] [id number] Kashif Kennedy Self - patient is the insured Medical (General) History Medical History History ICD Code anemia thyroid issues multiple sclerosis Surgical History Surgery Date(Month/Year) endoscopy 2015 left 5th metatarsal ORIF 08/19/24 Tonsils 2009 gallbladder 2012 colonoscopy 2021
--- OUTSIDE RECORDS SUMMARY | 2025-03-03 08:59 | XMS_ITS | Encounter Summary ---
Author Organization [facility] Address [address] [place] [address] Care Team Providers Care Inspector Conveyor Line Name Role Phone Jayme Franklin MD Primary Care Provider [phone] Source Comments In the event this information is protected by the Federal Confidentiality of Alcohol and Drug AbusePatient Records regulations: The Federal rules restrict any use of the information to criminally investigate or prosecute any alcohol or drug abuse patient.[facility] Encounter Details Date Type Department Care Team (Late st Contact Info) Description 10/02/2017 Patient Msg Medical Records [address] [place], [place] [phone] Provider, Ccf MRI Social History Tobacco Use [...] Assessment Author No 01/06/2015 2:50 PM EDT Alexandronehemias Jackie Haro documented as of this encounter Mental Status * Because of a physical, mental, or emotional condition, do you have serious difficulty concentrating, remembering, or making decisions? Answer Entry Date Author No 01/06/2015 2:50 PM EDT Briana Tahir Jackie documented in this encounter Plan of Treatment Upcoming Encounters Date Type Department Care Team (Latest Contact Info) Description 04/16/2025 8:00 AM EDT [facility] Gastroenterology [address] [address] Theo Morales MD [address] [place] [address] CONSULT TO GASTROENTEROLOGY Diarrhea, unspecified typ Multiple sclerosis (HCC) [G35]e [R19.7] 07/21/2025 10:30 AM [facility] Center Hematology/Oncolog y [address] [place] [address] [place] [address] [employer] documented as of this encounter Visit Diagnoses Not on filedocumented in this encounter Care Teams Inspector Conveyor Line Relationship Specialty Start Date End Date Jayme Franklin MD PCP - General Internal Medicine 08/12/13 documented as of this encounter
--- OUTSIDE RECORDS SUMMARY | 2025-03-03 08:59 | XMS_ITS | Encounter Summary ---
Author Organization [facility] Address [address] [place] [address] Care Team Providers Care Porter Bath Name Role Phone Jayme Franklin MD Primary Care Provider [phone] Source Comments In the event this information is protected by the Federal Confidentiality of Alcohol and Drug AbusePatient Records regulations: The Federal rules restrict any use of the information to criminally investigate or prosecute any alcohol or drug abuse patient.[facility] Encounter Details Date Type Department Care Team (Late st Contact Info) Description 11/20/2020 Get Medical Advice [facility] [address] [place] [phone] Yoly Miller, [place].[facility] [address] [place], [place] [phone] RE: Non-Urgent Medical Question Social History Tobacco [...] N ot on file 06/28/2020 Data from: https://www.neighborhoodatlas.[facility]/. Last address used for calculation Not on [...] Contact Info) Description 04/16/2025 8:00 AM EDT [facility] Gastroenterology [address] [address] Theo Morales MD [address] [place] [address] CONSULT TO GASTROENTEROLOGY Diarrhea, unspecified typ Multiple sclerosis (HCC) [G35]e [R19.7] 07/21/2025 10:30 AM [facility] Hematology/Oncolog y [address] [facility] [place] [address] [employer] documented as of this encounter Visit Diagnoses Not on filedocumented in this encounter Care Teams Porter Bath Relationship Specialty Start Date End Date Jayme Franklin MD PCP - General Internal Medicine 08/12/13 documented as of this encounter
--- OUTSIDE RECORDS SUMMARY | 2025-03-03 08:59 | XMS_ITS | Encounter Summary ---
Author Organization [facility] Address [address] [place] [address] Care Team Providers Care Oil Refiner Name Role Phone Jayme Franklin MD Primary Care Provider [phone] Source Comments In the event this information is protected by the Federal Confidentiality of Alcohol and Drug AbusePatient Records regulations: The Federal rules restrict any use of the information to criminally investigate or prosecute any alcohol or drug abuse patient.[facility] Encounter Details Date Type Department Care Team (Late st Contact Info) Description 10/31/2017 Patient Msg Medical Records [address] [place], [place] [phone] Provider, Ccf [employer] approved Social History Tobacco [...] Contact Info) Description 04/16/2025 8:00 AM EDT [facility] Gastroenterology [address] [address] Theo Morales MD [address] [place] [address] CONSULT TO GASTROENTEROLOGY Diarrhea, unspecified typ Multiple sclerosis (HCC) [G35]e [R19.7] 07/21/2025 10:30 AM [facility] Center Hematology/Oncolog y [address] [facility] [place] [address] Ocrevus documented as of this encounter Visit Diagnoses Not on filedocumented in this encounter Care Teams Oil Refiner Relationship Specialty Start Date End Date Jayme Franklin MD PCP - General Internal Medicine 08/12/13 documented as of this encounter
--- OUTSIDE RECORDS SUMMARY | 2025-03-03 08:59 | XMS_ITS | Encounter Summary ---
Author Organization [facility] Address [address] [place] [address] Care Team Providers Care Senior Financial Reporting Accountant Name Role Phone Jayme Franklin MD Primary Care Provider [phone] Source Comments In the event this information is protected by the Federal Confidentiality of Alcohol and Drug AbusePatient Records regulations: The Federal rules restrict any use of the information to criminally investigate or prosecute any alcohol or drug abuse patient.[facility] Encounter Details Date Type Department Care Team (Late st Contact Info) Description 02/10/2021 Get Medical Advice [facility] [address] [place] [phone] Yoly Miller, [place].[facility] [address] [place], [place] [phone] RE: Non-Urgent Medical Question Social History Tobacco [...] N ot on file 06/28/2020 Data from: https://www.neighborhoodatlas.[facility]/. Last address used for calculation Not on [...] Contact Info) Description 04/16/2025 8:00 AM EDT [facility] Gastroenterology [address] [address] Theo Morales MD [address] [place] [address] CONSULT TO GASTROENTEROLOGY Diarrhea, unspecified typ Multiple sclerosis (HCC) [G35]e [R19.7] 07/21/2025 10:30 AM [facility] Center Hematology/Oncolog y [address] [facility] [place] [place] [address] [employer] documented as of this encounter Visit Diagnoses Not on filedocumented in this encounter Care Teams Senior Financial Reporting Accountant Relationship Specialty Start Date End Date Jayme Franklin MD PCP - General Internal Medicine 08/12/13 documented as of this encounter
--- OUTSIDE RECORDS SUMMARY | 2025-03-03 08:59 | XMS_ITS | Encounter Summary ---
Author Organization [facility] Address [address] [place] [address] Care Team Providers Care Server Name Role Phone Jayme Franklin MD Primary Care Provider [phone] Source Comments In the event this information is protected by the Federal Confidentiality of Alcohol and Drug AbusePatient Records regulations: The Federal rules restrict any use of the information to criminally investigate or prosecute any alcohol or drug abuse patient.[facility] Encounter Details Date Type Department Care Team (Late st Contact Info) Description 12/24/2024 Get Medical Advice [facility] [address] [place] [phone] Yoly Miller, [place].BOARD MACHINE SET UP OPERATOR [address] [place], [place] [phone] Work note for breaks Social History Tobacco [...] is lower risk 4 01/11/2023 Data from: https://www.neighborhoodatlas.[facility]/. Last address used for calculation [address] [address] 01/11/2023 Comments No Sex and [...] Contact Info) Description 04/16/2025 8:00 AM EDT [facility] Gastroenterology [address] [address] Theo Morales MD [address] [place] [address] CONSULT TO GASTROENTEROLOGY Diarrhea, unspecified typ Multiple sclerosis (HCC) [G35]e [R19.7] 07/21/2025 10:30 AM [facility] Center Hematology/Oncolog y [address] [facility] [facility] [facility] [place] [address] Ocrevus documented as of this encounter Visit Diagnoses Not on filedocumented in this encounter Care Teams Server Relationship Specialty Start Date End Date Jayme Franklin MD PCP - General Internal Medicine 08/12/13 documented as of this encounter
--- OUTSIDE RECORDS SUMMARY | 2025-03-03 08:59 | XMS_ITS | Patient Health Record ---
Author Organization [facility] [employer] [facility] Address [address] [address], [place] [address] Care Team Providers Care Damage Inside Adjuster Name Role Phone Kimo Oakley Unavailable [phone] Allergies Allergen (clinical drug ingredient) Drug/Non Drug Allergy documented on EMR Reaction Allergy Type Onset Date Status glatiramer Copaxone Unknown Drug Allergy Active interferon beta-1a Avonex Pen Unknown Drug Allergy Active Reason For Referral No Information Medications Medication SIG (Take, Route, Frequency, Duration) Notes Start Date End Date Status Abilify 15 MG Tablet 1 tablet Orally Onc e a day Active Effexor Active Norgestim-Eth Estrad Triphasic 0.18/0.215/0.25 MG-35 MCG Tablet TAKE 1 TABLET BY MOUTH EVERY DAY Oral; Duration: 84 Days Active Ferrous Sulfate 325 (65 Fe) MG Tablet Oral; Duration: 30 Days Acti ve Levothyroxine Sodium 75 MCG Tablet TAKE 1 TABLET BY MOUTH EVERY DAY Oral; Duration: 90 Days Active Vitamin D3 125 MCG (5000 UT) Capsule Oral; Duration: 60 Days Acti ve metFORMIN HCl ER 500 MG Tablet Extended Release 24 Hour Oral; Duration: 90 Days Acti ve Social History Section Notes: Admits to Vaping Encounters En[facility] [address] [address], [place] [address] 01/31/2025 Kimo Oakley Closed nondisplaced fracture of fifth metatarsal bone of left foot with routine healing, subsequent encounter S92.355D Assessments Encounter Date Diagnosis (ICD Code) Assessment Notes Treatment Notes Treatment Clinical Notes Section Notes 01/31/2025 Closed nondisplaced fracture of fifth metatarsal bone of left foot with routine healing, subsequent encounter (ICD-10 - S92.355D) Patient is 6mo s/p ORIF Klein fracture. Xrays were obtained and reviewed with her. Hardware is stable and there is progression in fracture healing with a small amount of callus. Screw head may be causing some irritation on the peroneals or cuboid although I could not reproduce any pain on exam. I recommended f/u in 6 months with WB 3 views of left foot Plan Of Treatment No Information Insurance Providers Payer Name Payer Address Payer Phone Subscriber Number Group Number Insured Name Patient Relationship to Insured Coverage Start Date Coverage End Date Medicaid of [place] [address] [place] [phone] [id number] Natalie Kennedy Self - patient is the insured Medical (General) History Medical History History ICD Code Thyroid Issues Multiple Sclerosis Surgical History Surgery Date(Month/Year) ORIF Left Klein Fracture 2024
--- OUTSIDE RECORDS SUMMARY | 2025-03-03 08:59 | XMS_ITS | Encounter Summary ---
Author Organization [facility] Address [address] [place] [address] Care Team Providers Care Transmitter Engineer Name Role Phone Jayme Franklin MD Primary Care Provider [phone] Source Comments In the event this information is protected by the Federal Confidentiality of Alcohol and Drug AbusePatient Records regulations: The Federal rules restrict any use of the information to criminally investigate or prosecute any alcohol or drug abuse patient.[facility] Encounter Details Date Type Department Care Team (Late st Contact Info) Description 04/15/2018 Get Medical [address] [phone] Yoly Miller, [place].[address] [place] [phone] RE: Non-Urgent Medical Question Social History Tobacco [...] Contact Info) Description 04/16/2025 8:00 AM EDT [facility] Gastroenterology [address] [address] Theo Morales MD [address] [place] [address] CONSULT TO GASTROENTEROLOGY Diarrhea, unspecified typ Multiple sclerosis (HCC) [G35]e [R19.7] 07/21/2025 10:30 AM EST [facility]fusion [facility] Hematology/Oncolog [address] [place] [address] Ocrevus documented as of this encounter Visit Diagnoses Not on filedocumented in this encounter Care Teams Transmitter Engineer Relationship Specialty Start Date End Date Jayme Franklin MD PCP - General Internal Medicine 08/12/13 documented as of this encounter
--- OUTSIDE RECORDS SUMMARY | 2025-03-03 08:59 | XMS_ITS | Encounter Summary ---
Author Organization [facility] Address [address] [place] [address] Care Team Providers Care Terrazzo Polisher Name Role Phone Jayme Franklin MD Primary Care Provider [phone] Jayme Franklin MD Primary Care Provider [phone] Jayme Franklin MD Unavailable Encounter Details Date Type Department Care Team (Late st Contact Info) Description 03/31/2023 Abstract [facility] [address] [place] [address] Kristin Johnston, [facility] [address] [place] [address] Social History Tobacco Use Types Packs/Day Years [...] EDT Travel History Travel Start Travel End [place] 02/01/2025 02/01/2025 COVID-19 Exposure Response Date Recorded In the [...] [facility] [address] [place] [address] Jayme Franklin MD [address] [place] [address] documented as of this encounter Visit Diagnoses Not on filedocumented in this encounter Care Teams Terrazzo Polisher Relationship Specialty Start Date End Date Jayme Franklin MD PCP - General Family Medicine 01/27/23 08/20/23 Jayme Franklin MD [address] [place] [address] PCP - General Family [facility] 08/21/23 Jayme Franklin MD [address] [place] [address] PCP - [facility] 07/24/24 documented as of this encounter
--- OUTSIDE RECORDS SUMMARY | 2025-03-03 08:59 | XMS_ITS | Encounter Summary ---
Author Organization [facility] Address [address] [place] [address] Care Team Providers Care Automotive Light Mechanic Name Role Phone Jayme Franklin MD Primary Care Provider [phone] Source Comments In the event this information is protected by the Federal Confidentiality of Alcohol and Drug AbusePatient Records regulations: The Federal rules restrict any use of the information to criminally investigate or prosecute any alcohol or drug abuse patient.[facility] Encounter Details Date Type Department Care Team (Late st Contact Info) Description 11/30/2024 Get Medical Advice [facility] [address] [address] Yoly Miller, ONE[place].GIFT WRAPPER [address] [place], [place] [id number] Doctor's note for work Social History Tobacco [...] is lower risk 4 01/11/2023 Data from: https://www.neighborhoodatlas.[facility]/. Last address used for calculation [address] 01/11/2023 Comments No Sex [...] EDT [facility] Gastroenterology [address] [address] Theo Morales MD [address] [place] [address] CONSULT TO GASTROENTEROLOGY Diarrhea, unspecified typ Multiple sclerosis (HCC) [G35]e [R19.7] 07/21/2025 10:30 AM [facility] Hematology/Oncolog y [address] [place] [address] [place] [address] Ocrevus documented as of this encounter Visit Diagnoses Not on filedocumented in this encounter Care Teams Automotive Light Mechanic Relationship Specialty Start Date End Date Jayme Franklin MD PCP - General Internal Medicine 08/12/13 documented as of this encounter
--- OUTSIDE RECORDS SUMMARY | 2025-03-03 08:59 | XMS_ITS | Encounter Summary ---
Author Organization [facility] Address [address] [place] [address] Care Team Providers Care Manager Civil Name Role Phone Jayme Franklin MD Primary Care Provider [phone] Source Comments In the event this information is protected by the Federal Confidentiality of Alcohol and Drug AbusePatient Records regulations: The Federal rules restrict any use of the information to criminally investigate or prosecute any alcohol or drug abuse patient.[facility] Encounter Details Date Type Department Care Team (Late st Contact Info) Description 11/01/2017 [facility] [address] [phone] Megha Curry, COTTON CONVERTER.[address] [phone] RE: Upcoming Appointment Question Social History Tobacco [...] Contact Info) Description 04/16/2025 8:00 AM EDT [facility] Gastroenterology [address] [address] Theo Morales MD [address] [phone] CONSULT TO GASTROENTEROLOGY Diarrhea, unspecified typ Multiple sclerosis (HCC) [G35]e [R19.7] 07/21/2025 10:30 AM EST Infusion Center Hematology/Oncolog [address] [place] [address] Ocrevus documented as of this encounter Visit Diagnoses Not on filedocumented in this encounter Care Teams Manager Civil Relationship Specialty Start Date End Date Jayme Franklin MD PCP - General Internal Medicine 08/12/13 documented as of this encounter
--- OUTSIDE RECORDS SUMMARY | 2025-03-03 08:59 | XMS_ITS | Encounter Summary ---
Author Organization [facility] Address [address] [place] [address] Care Team Providers Care Clinical Operations Manager Name Role Phone Beba Costa MD Primary Care Provider [phone] Beba Costa MD Unavailable Encounter Details Date Type Department Care Team (Late st Contact Info) Description 08/15/2024 Clinisync Result Encounter [facility] External Department Unsolicited Beba Costa MD [address] [place] [address] Social History Tobacco Use Types Packs/Day Years [...] week 09/17/2023 How often do you attend christianity or rastafarian serv ices? Never 09/17/2023 Do you belong to any clubs o r organizations such as christianity groups, unions, fraternal or athletic groups, or [...] medical care, and heating? Somewhat hard 09/17/2023 [facility] [place] of Occupat ional Health - Occupational Stress [...] place to sleep or slept in a longterm (including now)? No 09/17/2023 Comments No Sex and Gender Information Value Date Recorded Sex Assigned at Female 02/08/2023 3:48 PM EDT Legal Sex Female 6:57 PM EDT Gender Identity Female 02/08/2023 3:48 PM EDT Sexual Orientation Straight 02/08/2023 3: 48 PM EDT Travel History Travel Start Travel End [place] 02/01/2025 02/01/2025 documented as of this encounter Plan of Treatment Upcoming Encounters Date Type Department Care Team (Late st Contact Info) Description 04/02/2025 11:00 AM EDT Office Visit [facility] [address] [place] [address] Beba Costa MD [address] [place] [address] documented as of this encounter Procedures Procedure Name Priority Date/Time Associated Diagnosis Comments XR DEXA AXIAL SKELETON 08/15/2024 12:46 PM EST documented in this encounter Results * XR DEXA AXIAL SKELETON (08/15/2024 12:46 PM EST) Anatomical Region Laterality Modality Other 08/15/2024 12:4 6 PM EST Narrative 08/15/2024 12:48 PM EST The [address] [address] XRay Report Signed Patient: NATALIE CARSON MR#: [id number] : 1995 Acct:[id number] Age/Sex: 28 / F ADM Date: 08/15/24 Loc: RAD Attending Dr: Beba Costa M.D. Ordering Physician: Beba Costa M.D. Date of Service: 08/15/24 Procedure(s): XR DEXA axial skeleton Accession Number(s): [id number] cc: Beba Costa M.D. The [address] [address] Patient Name: NATALIE CARSON MRN: [id number] date: 1995 Sex: F Assigned Patient Location: [facility] Current Patient Location: [facility] Accession/Order Number: [id number] Exam Date: 08/15/2024 10:45 Report Date: 08/15/2024 12:46 At the request of: BEBA COSTA Procedure: XR DEXA axial skeleton EXAMINATION: [...] prevention and treatment of osteoporosis. Osteoporos Int. 2021;3310):2516-0130. doi: 10.1007/d31266-622-59352-f. Epub 2021Nov 18. Erratum in: Osteoporos Int. 2021Feb 17;: PMID: 62575695; PMCID: [id number]. Electronically authenticated by: BEATRICE JARAMILLO Date: 08/15/2024 12:46 Dictated By: Beatrice Jaramillo M.D. Signed By: 08/15/24 1248 DD/ 1246 TD/TT: Lead Database Developer: Procedure Note Radiology, Radiologist, - 08/15/2024 [place] [address] XRay Report Signed Patient: NATALIE CARSON MMR#: [id number] : 1995Acct:[id number] Age/Sex: 28 / FADM Date: 08/15/24 Loc: RAD Attending Dr: Beba Costa M.D. Ordering Physician: Beba Costa M.D. Date of Service: 08/15/24 Procedure(s): XR DEXA axial skeleton Accession Number(s): [id number] cc: Beba Costa M.D. The [address] [address] Patient Name: NATALIE CARSON MRN: [id number] date: 1995 Sex: F Assigned Patient Location: [facility] Current Patient Location: [facility] Accession/Order Number: [id number] Exam Date: 08/15/2024 10:45 Report Date: 08/15/2024 12:46 At the request of: BEBA COSTA Procedure: XR DEXA axial skeleton EXAMINATION: [...] 10-year hip fracture risk >= 3% or [id number] major osteoporosis-related fracture risk >= 20% (i.e., [...] to prevention and treatment of osteoporosis.Osteoporos Int. 2021;33(10):3928-7667. doi: 10.1007/n41818-979-81070-p. Epub . Erratum in: Osteoporos Int. 2021Feb 17;: PMID: [id number]; PMCID: [id number]. Electronically authenticated by: BEATRICE JARAMILLO Date: 08/15/2024 12:46 Dictated By: Beatrice Jaramillo M.D. Signed By:08/15/24 1248 DD/ 1246 TD/TT: Lead Database Developer: Beba Costa MD [facility] Final Result documented in this encounter Visit Diagnoses Not on filedocumented in this encounter Care Teams Clinical Operations Manager Relationship Specialty Start Date End Date Beba Costa MD [address] [place] [address] PCP - General Family Medicine 08/21/23 Beba Costa MD [address] [place] [address] PCP - [facility] 07/24/24 documented as of this encounter
--- OUTSIDE RECORDS SUMMARY | 2025-03-03 08:59 | XMS_ITS | Encounter Summary ---
Author Organization [facility] Address [address] [place] [address] Care Team Providers Care Electrical Assistant Name Role Phone Jayme Franklin MD Primary Care Provider [phone] Source Comments In the event this information is protected by the Federal Confidentiality of Alcohol and Drug AbusePatient Records regulations: The Federal rules restrict any use of the information to criminally investigate or prosecute any alcohol or drug abuse patient.[facility] Encounter Details Date Type Department Care Team (Late st Contact Info) Description 03/08/2021 Get Medical Advice [facility] [address] [phone] Yoly Miller, ONE[place].HEAD STILL OPERATOR [address] [place], [place] [phone] RE: Non-Urgent Medical Question Social History Tobacco [...] N ot on file 06/28/2020 Data from: https://www.neighborhoodatlas.[facility]/. Last address used for calculation [...] Contact Info) Description 04/16/2025 8:00 AM EDT [facility] Gastroenterology [address] [address] Theo Morales MD [address] [place] [address] CONSULT TO GASTROENTEROLOGY Diarrhea, unspecified typ Multiple sclerosis (HCC) [G35]e [R19.7] 07/21/2025 10:30 AM [facility] Hematology/Oncolog y [address] [facility] [place] [address] Ocrevus documented as of this encounter Visit Diagnoses Not on filedocumented in this encounter Care Teams Electrical Assistant Relationship Specialty Start Date End Date Jayme Franklin MD PCP - General Internal Medicine 08/12/13 documented as of this encounter
--- OUTSIDE RECORDS SUMMARY | 2025-03-03 08:59 | XMS_ITS | Encounter Summary ---
Author Organization [facility] Address [address] [place] [address] Care Team Providers Care Exchange Specialist Name Role Phone Jamye Franklin MD Primary Care Provider Source Comments In the event this information is protected by the Federal Confidentiality of Alcohol and Drug AbusePatient Records regulations: The Federal rules restrict any use of the information to criminally investigate or prosecute any alcohol or drug abuse patient.[facility] Encounter Details Date Type Department Care Team (Late st Contact Info) Description 05/11/2018 [facility] [address] [phone] Yoly Miller, [place].[address] [place] [phone] RE: Medication Question (Not Renewal) Social History [...] Contact Info) Description 04/16/2025 8:00 AM EDT [facility] Gastroenterology [address] [address] Theo Morales MD [address] [place] [address] CONSULT TO GASTROENTEROLOGY Diarrhea, unspecified typ Multiple sclerosis (HCC) [G35]e [R19.7] 07/21/2025 10:30 AM EST Infusion Center Hematology/Oncolog [address] [place] [address] Ocrevus documented as of this encounter Visit Diagnoses Not on filedocumented in this encounter Care Teams Exchange Specialist Relationship Specialty Start Date End Date Jayme Franklin MD PCP - General Internal Medicine 08/12/13 documented as of this encounter
--- OUTSIDE RECORDS SUMMARY | 2025-03-03 08:59 | XMS_ITS | Encounter Summary ---
Author Organization [facility] Address [address] [place] [address] Care Team Providers Care Weigh Boss Name Role Phone Jayme Franklin MD Primary Care Provider [phone] Source Comments In the event this information is protected by the Federal Confidentiality of Alcohol and Drug AbusePatient Records regulations: The Federal rules restrict any use of the information to criminally investigate or prosecute any alcohol or drug abuse patient.[facility] Encounter Details Date Type Department Care Team (Late st Contact Info) Description 07/14/2017 Patient [facility] [address] [place] [address] Robbie Causey, RN [address] [place] [address] Required Monitoring Labwork Social History Tobacco Use [...] Contact Info) Description 04/16/2025 8:00 AM EDT [facility] Gastroenterology [address] [address] Theo Morales MD [address] [place] [address] CONSULT TO GASTROENTEROLOGY Diarrhea, unspecified typ Multiple sclerosis (HCC) [G35]e [R19.7] 07/21/2025 10:30 AM EST Infusion Center Hematology/Oncolog [address] [place] [address] Ocrevus documented as of this encounter Visit Diagnoses Not on filedocumented in this encounter Care Teams Weigh Boss Relationship Specialty Start Date End Date Jayme Franklin MD PCP - General Internal Medicine 08/12/13 documented as of this encounter
--- OUTSIDE RECORDS SUMMARY | 2025-03-03 08:59 | XMS_ITS | Encounter Summary ---
Author Organization [facility] Address [address] [place] [address] Care Team Providers Care Repairer Finished Metal Name Role Phone Jayme Franklin MD Primary Care Provider [phone] Source Comments In the event this information is protected by the Federal Confidentiality of Alcohol and Drug AbusePatient Records regulations: The Federal rules restrict any use of the information to criminally investigate or prosecute any alcohol or drug abuse patient.[facility] Encounter Details Date Type Department Care Team (Late st Contact Info) Description 06/11/2018 Get Medical [place] [phone] Yoly Miller, [place].[address] [phone] RE: Non-Urgent Medical Question Social History Tobacco [...] Contact Info) Description 04/16/2025 8:00 AM EDT [facility] Gastroenterology [address] [address] Theo Morales MD [address] [place] [address] CONSULT TO GASTROENTEROLOGY Diarrhea, unspecified typ Multiple sclerosis (HCC) [G35]e [R19.7] 07/21/2025 10:30 AM EST Infusion Center Hematology/Oncolog [address] [place] [address] Ocrevus documented as of this encounter Visit Diagnoses Not on filedocumented in this encounter Care Teams Repairer Finished Metal Relationship Specialty Start Date End Date Jayme Franklin MD PCP - General Internal Medicine 08/12/13 documented as of this encounter
--- OUTSIDE RECORDS SUMMARY | 2025-03-03 08:59 | XMS_ITS | Clinical Summary ---
Author Organization [facility] Address [address] [place] [address] Care Team Providers Care Wire Brush Maker Name Role Phone Jayme Franklin MD Primary Care Provider [phone] Jayme Franklin MD Unavailable Allergies Active Allergy [...] split.. 60 tablet 11 06/10/20 24 Active aspirin 162.5 MG split tablet Take 325 mg by mouth 1 (one) time 08/19/19 25 Active venlafaxine XR (Effexor XR) 150 MG 24 hr capsuleIndication s:Bipolar 1 disorder, depressed, mild (HCC) TAKE 1 CAPSULE BY MOUTH EVERY DAY 90 capsule 1 10/04/19 25 Active levothyroxine (Synthroid, Levoxyl) 75 MCG [...] DAY 84 tablet 3 01/11/20 25 Active ARIPiprazole (Abilify) 20 MG tabletIndications :Bipolar 1 disorder, depressed, mild (HCC) Take 1 tablet (20 mg) by mouth Daily 30 tablet 3 02/26/20 25 Active busPIRone (Buspar) 7.5 MG tabletIndications :JEFF (generalized anxiety disorder) Take 1 tablet (7.5 mg) by mouth in the morning and 1 tablet (7.5 mg) before bedtime. 60 tablet 2 02/26/20 25 Active amphetamine-dextr oamphetamine XR (Adderall XR) 20 MG 24 hr capsuleIndication s:Multiple sclerosis (HCC) Take 1 capsule (20 mg) by mouth in the morning. 30 capsule 02/26/20 25 025 Active clotrimazole (Lotrimin) 1 % creamIndications: Tinea cruris Apply topically in the morning and before bedtime. 60 g 2 02/26/20 25 Active phentermine (Adipex-P) 37.5 MG tabletIndications :Class 3 severe obesity due to excess calories without serious comorbidity with body mass index (BMI) of 40.0 to 44.9 in adult ([facility]) Take 1 tablet (37.5 mg) by mouth in the morning. Take before meals. 30 tablet 06/24/20 24 025 Discontinued clotrimazole (Lotrimin) 1 % creamIndications: Tinea pedis, unspecified laterality Apply topically 2 (two) times a day 60 g 2 07/30/19 25 025 Discontinued phentermine (Adipex-P) 37.5 MG tabletIndications :Encounter for weight management Take 1 tablet (37.5 mg) by mouth in the morning. Take before meals. 30 tablet 07/31/19 25 025 Discontinued phentermine (Adipex-P) 37.5 MG tabletIndications :Encounter for weight management Take 1 tablet (37.5 mg) by mouth in the morning. Take before meals. 30 tablet 08/28/19 25 025 Discontinued phentermine (Adipex-P) 37.5 MG tabletIndications :Encounter for weight management Take 1 tablet (37.5 mg) by mouth in the morning. Take before meals. 30 tablet 09/26/19 25 025 Discontinued ARIPiprazole (Abilify) 15 MG tabletIndications :Bipolar disorder, current episode depressed, mild (HCC),Mild depressed bipolar I disorder (HCC) TAKE 1 TABLET BY MOUTH EVERY DAY 30 tablet 11 10/23/19 25 025 Discontinued Active Problems Problem Noted Date Diagnosed Date Tinea cruris 02/25/2025 Assessment & Plan (02/25/2025 1:44 PM EDT): Rash appears fungal and start cream. Encounter for weight management 07/08/2024 Class 3 severe obesity due t o excess calories without serious comorbidity with body mass index (BMI) of 45.0 to 49.9 in adult 09/18/2023 Assessment & Plan (02/25/2025 1:43 PM EDT): Weight loss indicated. Assessment & Plan (07/30/2024 3:35 PM EST): [...] weight and check labs. Insulin resistance 09/18/2023 Assessment & Plan (02/25/2025 1:43 PM EDT): Repeat labs. Encounter for long-term (current) use of medicat ions 09/18/2023 Acne vulgaris 03/28/2023 Bipolar 1 disorder, depressed, mild 03/28/2023 Assessment & Plan (02/25/2025 1:43 PM EDT): Worsening symptoms and increase abilify. Assessment & Plan (07/30/2024 3:34 PM EST): [...] (generalized anxiety disorder) 03/28/2023 Assessment & Plan (02/25/2025 1:43 PM EDT): Worsening symptoms and increase abilify. Add buspar for symptoms. Assessment & Plan (07/30/2024 3:34 PM EST): [...] 07/08/2014 Multiple sclerosis 04/24/2014 Assessment & Plan (02/25/2025 1:44 PM EDT): Worsening fatigue and resume adderall. Follow up with neurology. Assessment & Plan (07/30/2024 3:34 PM EST): [...] Problem Noted Date Diagnosed Date Resolved Date Tinea pedis 07/30/2024 02/25/2025 Assessment & Plan (07/30/2024 3:34 PM EST): Start cream. Acute non-recurrent pansinusitis 09/18/2023 03/18/2024 Assessment & [...] Encounters Date Type Department Care Team Description 02/25/2025 1:00 PM EDT Office Visit [facility] [address] [place] [address] Jayme Franklin MD Bipolar 1 disorder, depressed, mild (HCC) (Primary Dx); JEFF (generalized anxiety disorder) ; Multiple sclerosis (HCC); Insulin resistance; Class 3 severe obesity due to excess calories without serious comorbidity with body mass index (BMI) of 45.0 to 49.9 in adult ([facility]); Annual physical exam; Bonita nunos 02/25/2025 Bamboo flowsheet [facility] [address] [place] [address] Jayme Franklin MD 02/24/2025 Travel 01/31/2025 Clinisync Result Encounter [facility] External Department Unsolicited Provider, Generic External Data 01/28/2025 Bamboo flowsheet [facility] [address] [place] [address] Jayme Franklin MD 01/27/2025 Travel 01/13/2025 Clinisync Result Encounter NOMS External Department Unsolicited Provider, Generic External Data 01/10/2025 Refill [facility] [address] [place] [address] Jayme Franklin MD Family planning 12/27/2024 Refill [facility] [address] [place] [address] Jayme Franklin MD Other iron deficiency anemia from Last 3 Months Immunizations Immunization Administration Dates Next Due Tdap 01/18/2010 Varicella 11/22/1998 Family History Medical History Relation Name Comments Diabetes Father Blake Dayarato COPD Maternal Grandfather Cancer Maternal Grandmother Andreina Little COPD Mother Cintia Carson Crohn's disease Mother Cintia Dayarato Hypertension Mother Cintia Dayarato Thyroid disease Mother Cintia Dayarato Cancer Paternal Grandmother Relation Name Status Comments Brother Alive Father Blake Commarato Alive Maternal Grandfather Alive Maternal Grandmother Andreina Little Mother Cintia Dayaravahid Alive Paternal Grandmother Alive Social History Tobacco [...] often do you attend chur ch or taoism services? Never 02/24/2025 Do you belong to any clubs o r organizations such as presybeterian groups, unions, fraternal or athletic groups, or [...] medical care, and heating? Somewhat hard 02/24/2025 [facility] [place] [facility] Occupat ional [facility] - Occupational [...] place to sleep or slept in a detention (including now)? No 09/17/2023 Housing Stability Vital Sign Answer Edgar e Recorded In the last 12 months, was t here a time when you were not able to pay the mortgage or rent on time? No 02/24/2025 In the past 12 months, how m any times have you moved where you were living? 0 02/24/2025 At any time in the past 12 m [facility], were you homeless or living in a detention (including now)? No 02/24/2025 Comments No Sex and Gender Information Value Date Recorded Sex Assigned at Female 02/08/2023 3:48 PM EDT Legal Sex Female 6:57 PM EDT Gender Identity Female 02/08/2023 3:48 PM EDT Sexual Orientation Straight 02/08/2023 3: 48 PM EDT Travel History Travel Start Travel End [place] 02/01/2025 02/01/2025 Last Filed Vital Signs Vital Sign Reading [...] Mass Index 45.84 02/25/2025 1:13 PM EDT Plan of Treatment Upcoming Encounters Date Type Department Care Team (Late st Contact Info) Description 04/02/2025 11:00 AM EDT Office Visit [facility] [address] [place] [phone] Jayme Franklin MD [address] [place] [address] Health Maintenance Due Date Last Done Comments Influenza Vaccine (#1) 2025 Procedures Procedure Name Priority Date/Time Associated Diagnosis Comments XR FOOT LT MIN 3V 01/31/2025 2:1 0 PM EDT [facility] CBC W AUTO DIFF BLD Routine 01/13/2025 10:25 AM EDT from Last 3 Months Results * XR FOOT LT MIN 3V (01/31/2025 2:10 PM EDT) Anatomical Region Laterality Modality Other 01/31/2025 2:10 PM EDT Narrative 01/31/2025 2:12 PM EDT The [address] [address] XRay Report Signed Patient: KASHIF CARSON MR#: [id number] : 1995 Acct:[id number] Age/Sex: 29 / F ADM Date: 01/31/25 Loc: RAD Attending Dr: Amrik Oakley D.P.M. Ordering Physician: Amrik Oakley D.P.M. Date of Service: 01/31/25 Procedure(s): XR foot LT min 3V Accession Number(s): [id number] cc: Amrik Oakley D.P.M.; Jayme Franklin M.D. The [place] [id number] Patient Name: KASHIF CARSON MRN: [id number] date: 1995 Sex: F Assigned Patient Location: [facility] Current Patient Location: [facility] Accession/Order Number: [id number] Exam Date: 01/31/2025 14:09 Report Date: 01/31/2025 14:10 At the request of: AMRIK OAKLEY DPJohn Procedure: XR foot LT min 3V XR foot LT min 3V 01/31/2025 1:07 PM SIGNS AND SYMPTOMS: Follow-up fracture of left fifth metatarsal PROTOCOL: Frontal, lateral, and oblique radiographs of the left foot COMPARISON: 09/25/2024 FINDINGS: There is hardware fixation of the fifth metatarsal. No hardware complication or change in alignment. There is increasing periosteal new bone incorporation consistent with continued interval healing. XR/XR foot LT min 3V IMPRESSION: Healing fracture of the fifth metatarsal status post hardware fixation. No change in alignment. Impression dictated by: Corey Short M.D. 01/31/2025 2:10 PM Dictation Location: [place] [address] Electronically authenticated by: [id number] Y Date: 01/31/2025 14:10 Dictated By: Corey Short M.D. Signed By: 01/31/25 1412 DD/ 141 TD/TT: Life Insurance Sales Agent: Procedure Note Radiology, Radiologist, MD - 01/31/2025 [place] [address] XRay Report Signed Patient: KASHIF CARSON MMR#: [id number] : 1995Acct:[id number] Age/Sex: 29 / FADM Date: 01/31/25 Loc: RAD Attending Dr: Amrik Oakley D.P.M. Ordering Physician: Amrik Oakley D.P.M. Date of Service: 01/31/25 Procedure(s): XR foot LT min 3V Accession Number(s): [id number] cc: Amrik Oakley D.P.M.; Jayme Franklin M.D. The [place] [id number] Patient Name: KASHIF CARSON MRN: [id number] date: 1995 Sex: F Assigned Patient Location: [facility] Current Patient Location: [facility] Accession/Order Number: [id number] Exam Date: 01/31/2025 14:09 Report Date: 01/31/2025 14:10 At the request of: AMRIK OAKLEY DPJohn Procedure: XR foot LT min 3V XR foot LT min 3V 01/31/2025 1:07 PM SIGNS AND SYMPTOMS: Follow-up fracture of left fifth metatarsal PROTOCOL: Frontal, lateral, and oblique radiographs of the left foot COMPARISON: 09/25/2024 FINDINGS: There is hardware fixation of the fifth metatarsal. No hardwarecomplication or change in alignment. There is increasing periosteal new boneincorporation consistent with continued interval healing. XR/XR foot LT min 3V IMPRESSION: Healing fracture of the fifth metatarsal status post hardware fixation.No change in alignment. Impression dictated by: Corey Short M.D. 01/31/2025 2:10 PM Dictation Location: [place] [address] Electronically authenticated by: [id number] Y Date: 4:10 Dictated By: Corey Short M.D. Signed By:01/31/25 1412 DD/ 1410 TD/TT: Life Insurance Sales Agent: us Generic External Data Provider [facility] Final Result * [facility] CBC W AUTO DIFF BLD [...] AM EDT 01/13/2025 10:27 AM EDT Narrative RAD[facility] - 01/13/2025 10:29 AM EDT Specimen Type: BLOOD SPECIMEN Ordering Facility: [facility] Address: [address] [place], [place] [id number] Original Ordering Provider: LUCRECIA BLANCAS us Generic External Data Provider [facility] F inal Result [facility] [address] [place] [address] from Last 3 Months Insurance [employer] Care Teams Wire Brush Maker Relationship Specialty Start Date End Date Jayme Franklin MD [address] [place] [address] PCP - General Family Medicine 08/21/23 Jayme Franklin MD [address] [place] [address] PCP - [facility] 07/24/24
--- OUTSIDE RECORDS SUMMARY | 2025-03-03 08:59 | XMS_ITS | Encounter Summary ---
Author Organization [facility] Address [address] [place] [address] [place] [place] [address] Care Team Providers Care County Sheriff Name Role Phone Jayme Franklin MD Primary Care Provider [phone] Jyame Franklin MD Unavailable Reason for Visit * Reason Comments Med Refill Encounter Details Date Type Department Care Team (Late st Contact Info) Description 10/03/2024 [facility] [address] [place] [address] Jayme Franklin MD [address] [place] [address] Bipolar 1 disorder, depressed, mild (HCC) Social [...] How often do you attend voodoo or taoism serv ices? Never 09/17/2023 Do you belong [...] medical care, and heating? Somewhat hard 09/17/2023 [facility] Occupat ional Health - Occupational Stress [...] place to sleep or slept in a mcc (including now)? No 09/17/2023 Comments No Sex and Gender Information Value Date Recorded Sex Assigned at Female 02/08/2023 3:48 PM EDT Legal Sex Female 6:57 PM EDT Gender Identity Female 02/08/2023 3:48 PM EDT Sexual Orientation Straight 02/08/2023 3: 48 PM EDT Travel History Travel Start Travel End [place] 02/01/2025 02/01/2025 documented as of this encounter Miscellaneous Notes * Telephone Encounter - MIKAYLA JOYNER - 10/03/2024 8:58 AM EDT MEDICATION SENT TO [facility] documented in this encounter Plan of Treatment Upcoming Encounters Date Type Department Care Team (Late st Contact Info) Description 04/02/2025 11:00 AM EDT Office Visit [facility] [address] [place] [address] Jayme Franklin MD [address] [place] [address] documented as of this encounter Visit Diagnoses Diagnosis Bipolar 1 disorder, depressed, mild (HCC) documented in this encounter Care Teams County Sheriff Relationship Specialty Start Date End Date Jayme Franklin MD [address] [place] [address] PCP - General Family Medicine 08/21/23 Jayme Franklin MD [address] [place] [address] PCP - [facility] 07/24/24 documented as of this encounter
--- OUTSIDE RECORDS SUMMARY | 2025-03-03 08:59 | XMS_ITS | Encounter Summary ---
Author Organization [facility] Address [address] [place] [address] Care Team Providers Care Manager Play Name Role Phone Jayem Franklin MD Primary Care Provider [phone] Jayme Franklin MD Unavailable Encounter Details Date [...] week 09/17/2023 How often do you attend yazidism or jehovah's witness serv ices? Never 09/17/2023 Do you belong to any clubs o r organizations such as yazidism groups, unions, fraternal or athletic groups, or [...] medical care, and heating? Somewhat hard 09/17/2023 [facility] - Occupational Stress Questionnaire Answer Date Recorded [...] place to sleep or slept in a mcfp (including now)? No 09/17/2023 Comments Unknown Sex and Gender Information Value Date Recorded Sex Assigned at Female 02/08/2023 3:48 PM EDT Legal Sex Female 6:57 PM EDT Gender Identity Female 02/08/2023 3:48 PM EDT Sexual Orientation Straight 02/08/2023 3: 48 PM EDT Travel History Travel Start Travel End [place] 02/01/2025 02/01/2025 documented as of this encounter Plan of Treatment Upcoming Encounters Date Type Department Care Team (Late st Contact Info) Description 04/02/2025 11:00 AM EDT Office Visit [facility] [address] [place] [address] Jayme Franklin MD [address] [place] [address] documented as of this encounter Procedures Procedure Name Priority Date/Time Associated Diagnosis Comments US PELVIS W/ TRANSVAGINAL 04/16/2024 7:41 AM EDT documented in this encounter Results * US PELVIS W/ TRANSVAGINAL (04/16/2024 7:41 AM EDT) Anatomical Region Laterality Modality Other 04/16/2024 7:41 AM EDT Narrative 04/16/2024 7:44 AM EDT [address] [address] Ultrasound Report Signed Patient: NATALIE CARSON MR#: [id number] : 1995 Acct:[id number] Age/Sex: 28 / F ADM Date: 04/15/24 Loc: [facility] Attending Dr: Zoe Morales Ordering Physician: Zoe Morales Date of Service: 04/15/24 Procedure(s): US pelvis w/ transvaginal Accession Number(s): [id number] cc: Zoe Morales; Jayme Franklin M.D. The [address] [address] Patient Name: NATALIE CARSON MRN: [id number] date: 1995 Sex: F Assigned Patient Location: [facility] Current Patient Location: Accession/Order Number: [id number] Exam Date: 04/15/2024 09:59 Report Date: 04/16/2024 [...] Signed By: 04/16/24 0744 DD/ 0741 TD/TT: Physical Aerodynamicist: Procedure Note Radiology, Radiologist, MD - 04/16/2024 [place] [address] Ultrasound Report Signed Patient: NATALIE CARSON MMR#: [id number] : 1995Acct:[id number] Age/Sex: 28 / FADM Date: 04/15/24 Loc: [facility]OM[facility] Attending Dr: Zoe Morales Ordering Physician: Zoe Morales Date of Service: 04/15/24 Procedure(s): US pelvis w/ transvaginal Accession Number(s): [id number] cc: Zoe Morales; Jayme Franklin M.D. The [place] [address] Patient Name: NATALIE CARSON MRN: [id number] date: 1995 Sex: F Assigned Patient Location: [facility] Current Patient Location: Accession/Order Number: [id number] Exam Date: 04/15/2024 09:59 Report Date: 04/16/2024 [...] M.D. Signed By:04/16/24 0744 DD/ 0741 TD/TT: Physical Aerodynamicist: us Generic External Data Provider [facility] Final Result documented in this encounter Visit Diagnoses Not on filedocumented in this encounter Care Teams Manager Play Relationship Specialty Start Date End Date Jayme Franklin MD [address] [place] [address] PCP - General Family Medicine 08/21/23 Jayme Franklin MD [address] [place] [address] PCP - [facility] 07/24/24 documented as of this encounter
--- OUTSIDE RECORDS SUMMARY | 2025-03-03 08:59 | XMS_ITS | Encounter Summary ---
Author Organization [facility] Address [address] [place] [address] Care Team Providers Care Child Development Teacher Name Role Phone Jayme Franklin MD Primary Care Provider [phone] Jayme Franklin MD Unavailable Reason for Visit * Reason Comments Med Refill Encounter Details Date Type Department Care Team (Late st Contact Info) Description [facility] [address] [place] [address] Jayme Franklin MD [address] [place] [address] Bipolar disorder, current episode depressed, mild (HCC); [...] week 09/17/2023 How often do you attend presybeterian or faith serv ices? Never 09/17/2023 Do you belong [...] and heating? Somewhat hard 09/17/2023 [facility] of Occupat ional Health - Occupational Stress [...] EDT Travel History Travel Start Travel End [place] 02/01/2025 02/01/2025 documented as of this encounter Miscellaneous Notes * Telephone Encounter - MIKAYLA JOYNER - 10/22/2024 8:21 AM EDT MEDICATION SENT TO [facility] documented in this encounter Plan of Treatment Upcoming Encounters Date Type Department Care Team (Late st Contact Info) Description 04/02/2025 11:00 AM EDT Office Visit [facility] [address] [place] [address] Jayme Franklin MD [address] [place] [address] documented as of this encounter Visit Diagnoses Diagnosis Bipolar disorder, current episode depressed, mild (HCC) Mild depressed bipolar I disorder (HCC) Bipolar I disorder, most recent episode (or current) depressed, mild documented in this encounter Care Teams Child Development Teacher Relationship Specialty Start Date End Date Jayme Franklin MD [address] [place] [address] PCP - General Family Medicine 08/21/23 Jayme Franklin MD [address] [place] [address] PCP - [facility] 07/24/24 documented as of this encounter
--- OUTSIDE RECORDS SUMMARY | 2025-03-03 08:59 | XMS_ITS | Encounter Summary ---
Author Organization [facility] Address [address] [place] [address] Care Team Providers Care World Designer Name Role Phone Jayme Franklin MD Primary Care Provider [phone] Source Comments In the event this information is protected by the Federal Confidentiality of Alcohol and Drug AbusePatient Records regulations: The Federal rules restrict any use of the information to criminally investigate or prosecute any alcohol or drug abuse patient.[facility] Encounter Details Date Type Department Care Team (Late st Contact Info) Description 06/01/[address] [facility] [address] [place], [place] [phone] Yoly Miller, ONEIDA.TRAFFIC INVESTIGATOR [address] [place], [place] [phone] Appt Social History Tobacco Use Types Packs/Day [...] N ot on file 06/28/2020 Data from: https://www.[email or web address]/. Last address used for calculation [...] Contact Info) Description 04/16/2025 8:00 AM EDT [facility] Gastroenterology [address] [address] Theo Morales MD [address] [place] [address] CONSULT TO GASTROENTEROLOGY Diarrhea, unspecified typ Multiple sclerosis (HCC) [G35]e [R19.7] 07/21/2025 10:30 AM [facility] Hematology/Oncolog y [address] [place] [address] [employer] documented as of this encounter Visit Diagnoses Not on filedocumented in this encounter Care Teams World Designer Relationship Specialty Start Date End Date Jayme Franklin MD PCP - General Internal Medicine 08/12/13 documented as of this encounter
--- OUTSIDE RECORDS SUMMARY | 2025-03-03 08:59 | XMS_ITS | Encounter Summary ---
Author Organization [facility] Address [address] [place] [address] Care Team Providers Care Screen Printing Stencil Preparer Name Role Phone Jayme Franklin MD Primary Care Provider [phone] Source Comments In the event this information is protected by the Federal Confidentiality of Alcohol and Drug AbusePatient Records regulations: The Federal rules restrict any use of the information to criminally investigate or prosecute any alcohol or drug abuse patient.[facility] Encounter Details Date Type Department Care Team (Late st Contact Info) Description 03/11/2020 Get Medical Advice [place] [phone] Yoly Miller, ONE[place] [phone] RE: Non-Urgent Medical Question Social History Tobacco [...] Author No 01/06/2015 2:50 PM EDT Jackie aWrren Ma * Are you blind or do [...] Contact Info) Description 04/16/2025 8:00 AM EDT [facility] Gastroenterology [address] [address] Theo Morales MD [address] [place] [address] CONSULT TO GASTROENTEROLOGY Diarrhea, unspecified typ Multiple sclerosis (HCC) [G35]e [R19.7] 07/21/2025 10:30 AM EST [facility] Hematology/Oncolog y [address] [place] [address] [place] [address] [employer] documented as of this encounter Visit Diagnoses Not on filedocumented in this encounter Care Teams Screen Printing Stencil Preparer Relationship Specialty Start Date End Date Jayme Franklin MD PCP - General Internal Medicine 08/12/13 documented as of this encounter
--- OUTSIDE RECORDS SUMMARY | 2025-03-03 08:59 | XMS_ITS | Encounter Summary ---
Author Organization [facility] Address [address] [place] [address] Care Team Providers Care Corporation Officer Name Role Phone Jayme Franklin MD Primary Care Provider [phone] Jayme Franklin MD Unavailable Encounter Details Date Type Department Care Team (Latest Contact Info) Description 02/24/2025 Travel Social History Tobacco Use Types Packs/Day [...] often do you attend chur ch or christianity services? Never 02/24/2025 Do you belong to any clubs o r organizations such as restoration groups, unions, fraternal or athletic groups, or [...] medical care, and heating? Somewhat hard 02/24/2025 [facility] [place] of Occupat ional Health - Occupational Stress [...] place to sleep or slept in a long term (including now)? No 09/17/2023 Housing Stability Vital Sign Answer Edgar e Recorded In the last 12 months, was t here a time when you were not able to pay the mortgage or rent on time? No 02/24/2025 In the past 12 months, how m any times have you moved where you were living? 0 02/24/2025 At any time in the past 12 m [facility], were you homeless or living in a long term (including now)? No 02/24/2025 Comments No Sex and Gender Information Value Date Recorded Sex Assigned at Female 02/08/2023 3:48 PM EDT Legal Sex Female 6:57 PM EDT Gender Identity Female 02/08/2023 3:48 PM EDT Sexual Orientation Straight 02/08/2023 3: 48 PM EDT Travel History Travel Start Travel End [place] 02/01/2025 02/01/2025 documented as of this encounter Functional Status * Audit-C Score Answer Date of Assessment Author 3 02/24/2025 2:04 PM EDT Juan C, Generic * Q1: How often do you have a drink containing alcohol? Answer Date of Assessment Author Monthly or less 02/24/2025 2:04 PM EDT Juan C, Generic * Q2: How many drinks containing alcohol do you have on a typical day when you are drinking? Answer Date of Assessment Author 3 or 4 02/24/2025 2:04 PM EDT Juan C, Generic * Q3: How often do you have six or more drinks on one occasion? Answer Date of Assessment Author Less than monthly 02/24/2025 2:04 PM EDT Mychart , Generic documented as of this encounter Plan of Treatment Upcoming Encounters Date Type Department Care Team (Late st Contact Info) Description 04/02/2025 11:00 AM EDT Office Visit [facility] [address] [place] [address] Jayme Franklin MD [address] [place] [address] documented as of this encounter Visit Diagnoses Not on filedocumented in this encounter Care Teams Corporation Officer Relationship Specialty Start Date End Date Jayme Franklin MD [address] [place] [phone] PCP - General Family Medicine 08/21/23 Jayme Franklin MD [address] [place] [address] PCP - [facility] 07/24/24 documented as of this encounter
--- OUTSIDE RECORDS SUMMARY | 2025-03-03 08:59 | XMS_ITS | Encounter Summary ---
Author Organization [facility] Address [address] [place] [address] Care Team Providers Care Corn Grinder Name Role Phone Jayme Franklin MD Primary Care Provider [phone] Source Comments In the event this information is protected by the Federal Confidentiality of Alcohol and Drug AbusePatient Records regulations: The Federal rules restrict any use of the information to criminally investigate or prosecute any alcohol or drug abuse patient.[facility] Encounter Details Date Type Department Care Team (Late st Contact Info) Description 07/15/2017 [facility] [place] [id number] Megha Curry, PANTS BUSHELER.[place] [phone] RE: Upcoming Appointment Question Social History Tobacco [...] Contact Info) Description 04/16/2025 8:00 AM EDT [facility] Gastroenterology [address] [address] Theo Morales MD [address] [place] [phone] CONSULT TO GASTROENTEROLOGY Diarrhea, unspecified typ Multiple sclerosis (HCC) [G35]e [R19.7] 07/21/2025 10:30 AM EST [facility]fusion Center Hematology/Oncolog [address] [place] [address] [employer] documented as of this encounter Visit Diagnoses Not on filedocumented in this encounter Care Teams Corn Grinder Relationship Specialty Start Date End Date Jayme Franklin MD PCP - General Internal Medicine 08/12/13 documented as of this encounter
--- OUTSIDE RECORDS SUMMARY | 2025-03-03 08:59 | XMS_ITS | Encounter Summary ---
Author Organization [facility] Address [address] [place] [address] Care Team Providers Care Hospital Manager Name Role Phone Jayme Franklin MD Primary Care Provider [phone] Jayme Franklin MD Unavailable Encounter Details Date [...] week 09/17/2023 How often do you attend yazidi or restorationism serv ices? Never 09/17/2023 Do you belong to any clubs o r organizations such as yazidi groups, unions, fraternal or athletic groups, or [...] medical care, and heating? Somewhat hard 09/17/2023 [facility] of Occupat ional [facility] - Occupational Stress Questionnaire Answer Date [...] health care facility (including now)? No 09/17/2023 Comments No Sex and Gender Information Value Date Recorded Sex Assigned at Female 02/08/2023 3:48 PM EDT Legal Sex Female 6:57 PM EDT Gender Identity Female 02/08/2023 3:48 PM EDT Sexual Orientation Straight 02/08/2023 3: 48 PM EDT Travel History Travel Start Travel End [place] 02/01/2025 02/01/2025 documented as of this encounter Plan of Treatment Upcoming Encounters Date Type Department Care Team (Late st Contact Info) Description 04/02/2025 11:00 AM EDT Office Visit [facility] [address] [place] [address] Jayme Franklin MD [address] [place] [phone] documented as of this encounter Procedures Procedure Name Priority Date/Time Associated Diagnosis Comments XR CHEST 2V 08/13/2024 10:30 AM EST ALL CBC WITH AUTO DIFF Routine 08/13/2024 9:45 AM EST documented in this encounter Results * XR CHEST 2V (08/13/2024 10:30 AM EST) Anatomical Region Laterality Modality Other 08/13/2024 10:3 0 AM EST Narrative 08/13/2024 10:32 [place] [address] XRay Report Signed Patient: NATALIE CARSON MR#: [id number] : 1995 Acct:[id number] Age/Sex: 28 / F ADM Date: 08/13/24 Loc: PST Attending Dr: Amrik Oakley D.P.M. Ordering Physician: Amrik Oakley D.P.M. Date of Service: 08/13/24 Procedure(s): XR chest 2V Accession Number(s): [id number] cc: Amrik Oakley D.P.M.; Jayme Franklin M.D. The [address] [address] Patient Name: NATALIE CARSON MRN: [id number] date: 1995 Sex: F Assigned Patient Location: [facility] Current Patient Location: [facility] Accession/Order Number: [id number] Exam Date: 08/13/2024 09:40 Report Date: 08/13/2024 10:30 At the request of: AMRIK OAKLEY Procedure: XR chest 2V PROCEDURE: XR chest 2V DATE: 08/13/2024 8:40 AM CLINICAL SUPPORT SPECIALIST COMPARISONS: 04/13/2023 CLINICAL INDICATION: 28 years Female Preop exam FINDINGS: The cardiomediastinal silhouette and pulmonary vasculature are within normal limits. The lungs are clear. There is no evidence of pleural effusion or pneumothorax. XR/XR chest 2V IMPRESSION: Chest radiograph is within normal limits. Electronically authenticated by: ZEFERINO NULL Date: 08/13/2024 10:30 Dictated By: Zeferino Null M.D. Signed By: 08/13/24 1032 DD/ 1030 TD/TT: Wet Washer Machine: Procedure Note Radiology, Radiologist, MD - 08/13/2024 [place] [address] XRay Report Signed Patient: NATALIE CARSON MMR#: [id number] : 1995Acct:[id number] Age/Sex: 28 / FADM Date: 08/13/24 Loc: [facility] Attending Dr: Amrik Oakley D.P.M. Ordering Physician: Amrik Oakley D.P.M. Date of Service: 08/13/24 Procedure(s): XR chest 2V Accession Number(s): [id number] cc: Amrik Oakley D.P.M.; Jayme Franklin M.D. The [place] [id number] Patient Name: NATALIE CARSON MRN: [id number] date: 1995 Sex: F Assigned Patient Location: [facility] Current Patient Location: [facility] Accession/Order Number: [id number] Exam Date: 08/13/2024 09:40 Report Date: 08/13/2024 10:30 At the request of: AMRIK OAKLEY Procedure: XR chest 2V PROCEDURE: XR chest 2V DATE: 08/13/2024 8:40 AM CLINICAL SUPPORT SPECIALIST COMPARISONS: 04/13/2023 CLINICAL INDICATION: 28 years Female Preop exam FINDINGS: The cardiomediastinal silhouette and pulmonary vasculature are withinnormal limits. The lungs are clear. There is no evidence of pleural effusion or pneumothorax. XR/XR chest 2V IMPRESSION: Chest radiograph is within normal limits. Electronically authenticated by: ZEFERINO NULL Date: 08/13/2024 10:30 Dictated By: Zeferino Null M.D. Signed By:08/13/24 1032 DD/ 1030 TD/TT: Wet Washer Machine: Generic External Data Provider [facility] Final Result * (ABNORMAL) ALL CBC WITH AUTO DIFF (08/13/2024 9:45 AM EST) TB WBC 5.9 4.0 - 11.0 10 3/uL [...] Data Provider [facility] F inal Result [facility] documented in this encounter Visit Diagnoses Not on filedocumented in this encounter Care Teams Hospital Manager Relationship Specialty Start Date End Date Jayme Franklin MD [address] [place] [address] PCP - General Family Medicine 08/21/23 Jayme Franklin MD [address] [place] [phone] PCP - [facility] 07/24/24 documented as of this encounter
--- OUTSIDE RECORDS SUMMARY | 2025-03-03 08:59 | XMS_ITS | Encounter Summary ---
Author Organization [facility] Address [address] [place] [address] Care Team Providers Care Cosmetology Teacher Name Role Phone Jayme Franklin MD Primary Care Provider [phone] Source Comments In the event this information is protected by the Federal Confidentiality of Alcohol and Drug AbusePatient Records regulations: The Federal rules restrict any use of the information to criminally investigate or prosecute any alcohol or drug abuse patient.[facility] Encounter Details Date Type Department Care Team (Late st Contact Info) Description 04/10/2024 Get Medical Advice [facility] [address] [place] [phone] Yoly Miller, ONEIDA.INTERNAL MEDICINE VETERINARY TECHNICIAN [address] [place] [phone] Bladder &Bowel Social History Tobacco Use Types [...] is lower risk 4 01/11/2023 Data from: https://www.neighborhoodatlas.[facility]/. Last address used for calculation [address] [place] [address] [address] 01/11/2023 Comments No Sex and [...] Contact Info) Description 04/16/2025 8:00 AM EDT [facility] Gastroenterology [address] [address] Theo Morales MD [address] [place] [address] CONSULT TO GASTROENTEROLOGY Diarrhea, unspecified typ Multiple sclerosis (HCC) [G35]e [R19.7] 07/21/2025 10:30 AM [facility] Hematology/Oncolog y [address] [place] [address] [place] documented as of this encounter Visit Diagnoses Not on filedocumented in this encounter Care Teams Cosmetology Teacher Relationship Specialty Start Date End Date Jayme Franklin MD PCP - General Internal Medicine 08/12/13 documented as of this encounter
--- OUTSIDE RECORDS SUMMARY | 2025-03-03 08:59 | XMS_ITS | Encounter Summary ---
Author Organization [facility] Address [address] [place] [address] Care Team Providers Care Land Acquisition Manager Name Role Phone Jayme Franklin MD Primary Care Provider [phone] Jayme Franklin MD Unavailable Encounter Details Date Type Department Care Team (Late st Contact Info) Description 07/29/2024 Orders Only [facility] [address] [place] [address] Wesly Lin MD [address] [...] week 09/17/2023 How often do you attend orthodoxy or faith serv ices? Never 09/17/2023 Do you belong to any clubs o r organizations such as orthodoxy groups, unions, fraternal or athletic groups, or [...] medical care, and heating? Somewhat hard 09/17/2023 [facility] of Occupat ional Health - Occupational [...] EDT Travel History Travel Start Travel End [place] 02/01/2025 02/01/2025 documented as of this encounter Plan of Treatment Upcoming Encounters Date Type Department Care Team (Late st Contact Info) Description 04/02/2025 11:00 AM EDT Office Visit [facility] [address] [place] [address] Jayme Franklin MD [address] [place] [address] documented as of this encounter Procedures Procedure [...] on filedocumented in this encounter Care Teams Land Acquisition Manager Relationship Specialty Start Date End Date Jayme Franklin MD [address] [place] [phone] PCP - General Family Medicine 08/21/23 Jayme Franklin MD [address] [place] [address] PCP - [facility] 07/24/24 documented as of this encounter
--- OUTSIDE RECORDS SUMMARY | 2025-03-03 08:59 | XMS_ITS | Encounter Summary ---
Author Organization [facility] Address [address] [place] [address] Care Team Providers Care No Bake Molder Name Role Phone Jayme Franklin MD Primary Care Provider [phone] Jayme Franklin MD Unavailable Encounter Details Date [...] How often do you attend synagogue or catholic serv ices? Never 09/17/2023 Do you belong [...] medical care, and heating? Somewhat hard 09/17/2023 [facility] of Occupat ional [facility] - Occupational Stress Questionnaire Answer Date [...] place to sleep or slept in a senior living (including now)? No 09/17/2023 Comments Unknown Sex and Gender Information Value Date Recorded Sex Assigned at Female 02/08/2023 3:48 PM EDT Legal Sex Female 6:57 PM EDT Gender Identity Female 02/08/2023 3:48 PM EDT Sexual Orientation Straight 02/08/2023 3: 48 PM EDT Travel History Travel Start Travel End [place] 02/01/2025 02/01/2025 documented as of this encounter Plan of Treatment Upcoming Encounters Date Type Department Care Team (Late st Contact Info) Description 04/02/2025 11:00 AM EDT Office Visit [facility] [address] [place] [address] Jayme Franklin MD [address] [place] [address] documented as of this encounter Procedures Procedure [...] DATE OF EXAM: Nov 14 2023 1:20PM [facility] [place] 0303 - MRI LUMBAR SPINE WO IVCON [...] Improvement: None. New Enhancing Lesions: None T2 [place] of Disease: Mild. Parenchymal Volume Loss: None. [...] signal intensity and morphology. Cord T2 Plaque [place]: None New T2 Lesions: None Interval Cord [...] and assume there are 5 lumbar-type vertebrae. Salt Lifter: PSCB Transcribe Date/Time: Nov 14 2023 2:47P Dictated by : LEAH MURILLO MD This examination was interpreted and the report reviewed and electronically signed by: LEAH MURILLO MD on Nov 14 2023 2:59PM EST [id number]^AGFA_IDC^SI^ACN Procedure Note Radiology, Radiologist, - 11/14/2023 * [...] Improvement: None. New Enhancing Lesions: None T2 [place] of Disease: Mild. Parenchymal Volume Loss: None. [...] signal intensity and morphology. Cord T2 Plaque [place]: None New T2 Lesions: None Interval Cord [...] and assume there are 5 lumbar-type vertebrae. Salt Lifter: PSCB Transcribe Date/Time: Nov 14 2023 2:47P Dictated by : LEAH MURILLO MD This examination was interpreted and the report reviewed and electronically signed by: LEAH MURILLO MD on Nov 14 2023 2:59PM EST [id number]^AGFA_IDC^SI^ACN Generic External Data Provider [facility] Final Result documented in this encounter Visit Diagnoses Not on filedocumented in this encounter Care Teams No Bake Molder Relationship Specialty Start Date End Date Jayme Franklin MD [address] [place] [address] PCP - General Family Medicine 08/21/23 Jayme Franklin MD [address] [place] [address] PCP - [facility] 07/24/24 documented as of this encounter
--- OUTSIDE RECORDS SUMMARY | 2025-03-03 08:59 | XMS_ITS | Encounter Summary ---
Author Organization [facility] Address [address] [place] [address] Care Team Providers Care Acid Recovery Operator Name Role Phone Jayme Franklin MD Primary Care Provider [phone] Jayme Franklin MD Unavailable Encounter Details Date Type Department Care Team (Late st Contact Info) Description 03/28/2024 Orders Only [facility] [address] [place] [phone] Ambreen Barnett LPN [address] [place] [phone] Social History Tobacco Use Types Packs/Day Years [...] How often do you attend catholic or mandaen serv ices? Never 09/17/2023 Do you belong [...] medical care, and heating? Somewhat hard 09/17/[address] [facility] of Occupat ional Health - Occupational Stress [...] a fci (including now)? No 09/17/2023 Comments Unknown Sex [...] Office Visit [facility] [address] [place] [address] Jayme Franklin MD [address] [place] [address] documented as of this encounter Procedures Procedure Name Priority Date/Time Associated Diagnosis Comments PAP SMEAR Routine 03/18/2024 12:00 AM EDT documented in this encounter Results * Pap Smear (03/18/2024 12:00 AM EDT) Swab Cervical swab / Unknown Butch Nurse [facility] LAB CYTOLOGY ORDERABLES Final Result EXTERNAL LAB documented in this encounter Visit Diagnoses Not on filedocumented in this encounter Care Teams Acid Recovery Operator Relationship Specialty Start Date End Date Jayme Franklin MD [address] [place] [address] PCP - General Family Medicine 08/21/23 Jayme Franklin MD [address] [place] [address] PCP - [facility] 07/24/24 documented as of this encounter
--- OUTSIDE RECORDS SUMMARY | 2025-03-03 08:59 | XMS_ITS | Encounter Summary ---
Author Organization [facility] Address [address] [place] [address] Care Team Providers Care Teaching Associate Name Role Phone Jayme Franklin MD Primary Care Provider Jayme Franklin MD Unavailable Encounter Details Date [...] week 09/17/2023 How often do you attend rastafari or hoahaoism serv ices? Never 09/17/2023 Do you belong to any clubs o r organizations such as rastafari groups, unions, fraternal or athletic groups, or [...] medical care, and heating? Somewhat hard 09/17/2023 [facility] of Occupat ional [facility] - Occupational Stress Questionnaire Answer Date [...] place to sleep or slept in a custodial (including now)? No 09/17/2023 Comments Unknown Sex and Gender Information Value Date Recorded Sex Assigned at Female 02/08/2023 3:48 PM EDT Legal Sex Female 6:57 PM EDT Gender Identity Female 02/08/2023 3:48 PM EDT Sexual Orientation Straight 02/08/2023 3: 48 PM EDT Travel History Travel Start Travel End [place] 02/01/2025 02/01/2025 documented as of this encounter Plan of Treatment Upcoming Encounters Date Type Department Care Team (Late st Contact Info) Description 04/02/2025 11:00 AM EDT Office Visit [facility] [address] [place] [address] Jayme Franklin MD [address] [address] documented as of this encounter Procedures Procedure [...] Improvement: None. New Enhancing Lesions: None T2 [place] of Disease: Mild. Parenchymal Volume Loss: None. [...] signal intensity and morphology. Cord T2 Plaque [place]: None New T2 Lesions: None Interval Cord [...] and assume there are 5 lumbar-type vertebrae. Cloth Grader: [facility] Transcribe Date/Time: Nov 14 2023 2:47P Dictated by : LEAH MURILLO MD This examination was interpreted and the report reviewed and electronically signed by: LEAH MURILLO MD on Nov 14 2023 2:59PM EST [id number]^[email or web address]^SI^ACN Procedure Note Radiology, Radiologist, - 11/14/2023 * [...] Improvement: None. New Enhancing Lesions: None T2 [place] of Disease: Mild. Parenchymal Volume Loss: None. [...] signal intensity and morphology. Cord T2 Plaque [place]: None New T2 Lesions: None Interval Cord [...] and assume there are 5 lumbar-type vertebrae. Cloth Grader: PSCB Transcribe Date/Time: Nov 14 2023 2:47P Dictated by : LEAH MURILLO MD This examination was interpreted and the report reviewed and electronically signed by: LEAH MURILLO MD on Nov 14 2023 2:59PM EST [id number]^AGFA_IDC^SI^ACN Generic External Data Provider [facility] Final Result documented in this encounter Visit Diagnoses Not on filedocumented in this encounter Care Teams Teaching Associate Relationship Specialty Start Date End Date Jayme Franklin MD [address] [place] [address] PCP - General Family Medicine 08/21/23 Jayme Franklin MD [address] [place] [address] PCP - [facility] 07/24/24 documented as of this encounter
--- OUTSIDE RECORDS SUMMARY | 2025-03-03 08:59 | XMS_ITS | Encounter Summary ---
Author Organization [facility] Address [address] [place] [address] Care Team Providers Care Experimental Machining Lab Manager Name Role Phone Jayme Franklin MD Primary Care Provider [phone] Source Comments In the event this information is protected by the Federal Confidentiality of Alcohol and Drug AbusePatient Records regulations: The Federal rules restrict any use of the information to criminally investigate or prosecute any alcohol or drug abuse patient.[facility] Encounter Details Date Type Department Care Team (Late st Contact Info) Description 05/14/2021 Get Medical Advice [facility] [address] [place], [place] [phone] Yoly Miller, ONEIDA.[facility] [address] [place] [phone] RE: Non-Urgent Medical Question Social History Tobacco [...] N ot on file 06/28/2020 Data from: https://www.neighborhoodatlas.[facility]/. Last address used for calculation Not [...] Contact Info) Description 04/16/2025 8:00 AM EDT [facility] Gastroenterology [address] [address] Theo Morales MD [address] [place] [address] CONSULT TO GASTROENTEROLOGY Diarrhea, unspecified typ Multiple sclerosis (HCC) [G35]e [R19.7] 07/21/2025 10:30 AM [facility] Hematology/Oncolog y [address] [facility] [place] [address] O[employer]vus documented as of this encounter Visit Diagnoses Not on filedocumented in this encounter Care Teams Experimental Machining Lab Manager Relationship Specialty Start Date End Date Jayme Franklin MD PCP - General Internal Medicine 08/12/13 documented as of this encounter
--- OUTSIDE RECORDS SUMMARY | 2025-03-03 08:59 | XMS_ITS | Encounter Summary ---
Author Organization [facility] Address [address] [place] [address] Care Team Providers Care Spine Nurse Name Role Phone Jayme Franklin MD Primary Care Provider [phone] Jayme Franklin MD Unavailable Encounter Details Date [...] How often do you attend restorationist or orthodoxy serv ices? Never 09/17/2023 Do you belong [...] 09/17/2023 [facility] of Occupat ional [facility] - Occupational Stress Questionnaire Answer Date [...] a long term (including now)? No 09/17/2023 Comments Unknown Sex and Gender Information Value Date Recorded Sex Assigned at Female 02/08/2023 3:48 PM EDT Legal Sex Female 6:57 PM EDT Gender Identity Female 02/08/2023 3:48 PM EDT Sexual Orientation Straight 02/08/2023 3: 48 PM EDT Travel History Travel Start Travel End [place] 02/01/2025 02/01/2025 documented as of this encounter Plan of Treatment Upcoming Encounters Date Type Department Care Team (Late st Contact Info) Description 04/02/2025 11:00 AM EDT Office Visit [facility] [address] [place] [address] Jayme Franklin MD [address] [place] [address] documented as of this encounter Procedures Procedure [...] DATE OF EXAM: Jul 18 2024 2:37PM [facility] 0298 - MRI CERVICAL SPINE WO/W IVCON [...] history of multiple sclerosis. Cord T2 Plaque [place]: Mild New T2 Lesions: None Interval Cord [...] and assume there are 5 lumbar-type vertebrae. Scrap Piler: [facility] Transcribe Date/Time: Jul 18 2024 2:39P Dictated by : SAMMIE PACE MD This examination was interpreted and the report reviewed and electronically signed by: JAYA MARTINEZ MD on Jul 18 2024 3:53PM EST [id number]^SI^ACN Procedure Note Radiology, Radiologist, - 07/18/2024 * * *Final Report* * * DATE OF EXAM: Jul 18 2024 2:37PM [facility] 0298 - MRI CERVICAL SPINE WO/W IVCON [...] history of multiple sclerosis. Cord T2 Plaque [place]: Mild New T2 Lesions: None Interval Cord [...] and assume there are 5 lumbar-type vertebrae. Scrap Piler: MYRTLE Transcribe Date/Time: Jul 18 2024 2:39P Dictated by : SAMMIE PACE MD This examination was interpreted and the report reviewed and electronically signed by: JAYA MARTINEZ MD on Jul 18 2024 3:53PM EST [id number]^SI^ACN us Generic External Data Provider [facility] Final Result documented in this encounter Visit Diagnoses Not on filedocumented in this encounter Care Teams Spine Nurse Relationship Specialty Start Date End Date Jayme Franklin MD [address] [place] [phone] PCP - General Family Medicine 08/21/23 Jayme Franklin MD [address] [place] [address] PCP - [facility] 07/24/24 documented as of this encounter
--- OUTSIDE RECORDS SUMMARY | 2025-03-03 08:59 | XMS_ITS | Encounter Summary ---
Author Organization [facility] Address [address] [place] [address] Care Team Providers Care Cleaning Manager Name Role Phone Jayme Franklin MD Primary Care Provider [phone] Source Comments In the event this information is protected by the Federal Confidentiality of Alcohol and Drug AbusePatient Records regulations: The Federal rules restrict any use of the information to criminally investigate or prosecute any alcohol or drug abuse patient.[facility] Encounter Details Date Type Department Care Team (Late st Contact Info) Description 06/07/2021 Get Medical Advice [facility] [address] [place], [place] [id number] Yoly Miller, ONEIDA.DISTRICT FIRE MANAGEMENT OFFICER [address] [phone] Doctors note Social History Tobacco Use Types [...] N ot on file 06/28/2020 Data from: https://www.neighborhoodatlas.[facility]/. Last address used for calculation Not [...] Description 04/16/2025 8:00 AM EDT [facility] [place] [facility] Gastroenterology [address] [address] Theo Morales MD [address] [place] [address] CONSULT TO GASTROENTEROLOGY Diarrhea, unspecified typ Multiple sclerosis (HCC) [G35]e [R19.7] 07/21/2025 10:[address] [facility] Hematology/Oncolog y [address] [place] [address] [place] documented as of this encounter Visit Diagnoses Not on filedocumented in this encounter Care Teams Cleaning Manager Relationship Specialty Start Date End Date Jayme Franklin MD PCP - General Internal Medicine 08/12/13 documented as of this encounter
--- OUTSIDE RECORDS SUMMARY | 2025-03-03 08:59 | XMS_ITS | Encounter Summary ---
Author Organization [facility] Address [address] [place] [address] Care Team Providers Care Vending Machine Assembler Name Role Phone Jayme Franklin MD Primary Care Provider [phone] Source Comments In the event this information is protected by the Federal Confidentiality of Alcohol and Drug AbusePatient Records regulations: The Federal rules restrict any use of the information to criminally investigate or prosecute any alcohol or drug abuse patient.[facility] Encounter Details Date Type Department Care Team (Late st Contact Info) Description 02/02/2021 Get Medical Advice [facility] [address] [place], [place] [phone] Yoly Miller, ONEIDA.C S S REPRESENTATIVE [address] [phone] RE: Non-Urgent Medical Question Social History Tobacco [...] N ot on file 06/28/2020 Data from: https://www.neighborhoodatlas.[facility]/. Last address used for calculation [...] Contact Info) Description 04/16/2025 8:00 AM EDT [facility] Gastroenterology [address] [address] Theo Morales MD [address] [place] [address] CONSULT TO GASTROENTEROLOGY Diarrhea, unspecified typ Multiple sclerosis (HCC) [G35]e [R19.7] 07/21/2025 10:30 AM [facility] Hematology/Oncolog y [address] [place] [address] [place] documented as of this encounter Visit Diagnoses Not on filedocumented in this encounter Care Teams Vending Machine Assembler Relationship Specialty Start Date End Date Jayme Franklin MD PCP - General Internal Medicine 08/12/13 documented as of this encounter
--- OUTSIDE RECORDS SUMMARY | 2025-03-03 08:59 | XMS_ITS | Encounter Summary ---
Author Organization [facility] Address [address] [place] [address] Care Team Providers Care Silk Screen Layout Drafter Name Role Phone Jayme Franklin MD Primary Care Provider [phone] Jayme Franklin MD Unavailable Encounter Details Date [...] week 09/17/2023 How often do you attend jew or yarsanism serv ices? Never 09/17/2023 Do you belong to any clubs o r organizations such as jew groups, unions, fraternal or athletic groups, or [...] medical care, and heating? Somewhat hard 09/17/2023 [facility] of Occupat ional [facility] - Occupational Stress Questionnaire Answer [...] place to sleep or slept in a penitentiary (including now)? No 09/17/2023 Comments Unknown Sex [...] Visit [facility] [address] [place] [address] Jayme Franklin MD [address] [place] [address] documented as of this encounter Procedures Procedure [...] DATE OF EXAM: Jul 18 2024 2:37PM [facility] 0326 - MRI THORACIC SPINE WO/W [...] history of multiple sclerosis. Cord T2 Plaque [place]: Mild New T2 Lesions: None Interval Cord [...] and assume there are 5 lumbar-type vertebrae. Connie Cleaner: [facility] Transcribe Date/Time: Jul 18 2024 2:39P Dictated by : SAMMIE PACE MD This examination was interpreted and the report reviewed and electronically signed by: JAYA MARTINEZ MD on Jul 18 2024 3:53PM EST [id number]^[id number]^SI^ACN Procedure Note Radiology, Radiologist, - 07/18/2024 * * *Final Report* * * DATE OF EXAM: Jul 18 2024 2:37PM [facility] 0326 - MRI THORACIC SPINE WO/W [...] history of multiple sclerosis. Cord T2 Plaque [place]: Mild New T2 Lesions: None Interval Cord [...] and assume there are 5 lumbar-type vertebrae. Connie Cleaner: MYRTLE Transcribe Date/Time: Jul 18 2024 2:39P Dictated by : SAMMIE PACE MD This examination was interpreted and the report reviewed and electronically signed by: JAYA MARTINEZ MD on Jul 18 2024 3:53PM EST [id number]^AGFA_[id number]^SI^ACN us Generic External Data Provider [facility] Final Result documented in this encounter Visit Diagnoses Not on filedocumented in this encounter Care Teams Silk Screen Layout Drafter Relationship Specialty Start Date End Date Jayme Franklin MD [address] [place] [phone] PCP - General Family Medicine 08/21/23 Jayme Franklin MD [address] [place] [address] PCP - [facility] 07/24/24 documented as of this encounter
--- OUTSIDE RECORDS SUMMARY | 2025-03-03 08:59 | XMS_ITS | Encounter Summary ---
Author Organization [facility] Address [address] [place] [address] Care Team Providers Care Caretaker Name Role Phone Jayme Franklin MD Primary Care Provider [phone] Source Comments In the event this information is protected by the Federal Confidentiality of Alcohol and Drug AbusePatient Records regulations: The Federal rules restrict any use of the information to criminally investigate or prosecute any alcohol or drug abuse patient.[facility] Encounter Details Date Type Department Care Team (Late st Contact Info) Description 11/20/2020 Get Medical Advice [facility][1] [address] [id number] Yoly Miller, ONEIDA.[facility] [facility] [address] [place], [place] [phone] RE: Non-Urgent Medical Question Social History Tobacco [...] N ot on file 06/28/2020 Data from: https://www.neighborhoodatlas.[facility]/. Last address used for calculation Not on [...] Contact Info) Description 04/16/2025 8:00 AM EDT [facility] Gastroenterology [address] [address] Theo Morales MD [address] [place] [address] CONSULT TO GASTROENTEROLOGY Diarrhea, unspecified typ Multiple sclerosis (HCC) [G35]e [R19.7] 07/21/2025 10:30 AM [facility] Hematology/Oncolog y [address] [facility] [place] [address] [place] documented as of this encounter Visit Diagnoses Not on filedocumented in this encounter Care Teams Caretaker Relationship Specialty Start Date End Date Jayme Franklin MD PCP - General Internal Medicine 08/12/13 documented as of this encounter
--- OUTSIDE RECORDS SUMMARY | 2025-03-03 09:00 | XMS_ITS | Encounter Summary ---
Author Organization [facility] [place] [facility] Address [address] [place] [address] Care Team Providers Care Human Resources Receptionist Name Role Phone Jayme Franklin MD Primary Care Provider [phone] Source Comments In the event this information is protected by the Federal Confidentiality of Alcohol and Drug AbusePatient Records regulations: The Federal rules restrict any use of the information to criminally investigate or prosecute any alcohol or drug abuse patient.[facility] [place] [facility] Encounter Details Date Type Department Care Team (Late st Contact Info) Description 05/26/2024 Get Medical Advice [facility] [address] [place] [address] Yoly Miller, ONEIDA.REFRIGERATION MANAGER [address] [phone] Doctors note for MS medicine Social History [...] is lower risk 4 01/11/2023 Data from: https://www.neighborhoodatlas.[facility]/. Last address used for calculation [address] 01/11/2023 Comments No Sex [...] Contact Info) Description 04/16/2025 8:00 AM EDT [facility] Gastroenterology [address] [address] Theo Morales MD [address] [place] [address] CONSULT TO GASTROENTEROLOGY Diarrhea, unspecified typ Multiple sclerosis (HCC) [G35]e [R19.7] 07/21/2025 10:30 AM [facility] Hematology/Oncolog y [address] [place] [address] [place] documented as of this encounter Visit Diagnoses Not on filedocumented in this encounter Care Teams Human Resources Receptionist Relationship Specialty Start Date End Date Jayme Franklin MD PCP - General Internal Medicine 08/12/13 documented as of this encounter
--- OUTSIDE RECORDS SUMMARY | 2025-03-03 09:00 | XMS_ITS | Encounter Summary ---
Author Organization [facility] Address [address] [place] [address] Care Team Providers Care Fisher Eel Name Role Phone Jayme Franklin MD Primary Care Provider [phone] Source Comments In the event this information is protected by the Federal Confidentiality of Alcohol and Drug AbusePatient Records regulations: The Federal rules restrict any use of the information to criminally investigate or prosecute any alcohol or drug abuse patient.[facility] Encounter Details Date Type Department Care Team (Late st Contact Info) Description 12/29/2016 [facility] [place] [phone] Megha Curry, PIPE COVERER HELPER.[place] [phone] RE: Non-Urgent Medical Question Social History Tobacco [...] Contact Info) Description 04/16/2025 8:[address] [facility] Gastroenterology [address] [address] Theo Morales MD [address] [place] [address] CONSULT TO GASTROENTEROLOGY Diarrhea, unspecified typ Multiple sclerosis (HCC) [G35]e [R19.7] 07/21/2025 10:30 AM EST [facility] Hematology/Oncolog [address] [place] [address] [place] documented as of this encounter Visit Diagnoses Not on filedocumented in this encounter Care Teams Fisher Eel Relationship Specialty Start Date End Date Jayme Franklin MD PCP - General Internal Medicine 08/12/13 documented as of this encounter
--- OUTSIDE RECORDS SUMMARY | 2025-03-03 09:00 | XMS_ITS | Encounter Summary ---
Author Organization [facility] Address [address] [place] [address] Care Team Providers Care Government Service Executive Name Role Phone Jayme Franklin MD Primary Care Provider [phone] Source Comments In the event this information is protected by the Federal Confidentiality of Alcohol and Drug AbusePatient Records regulations: The Federal rules restrict any use of the information to criminally investigate or prosecute any alcohol or drug abuse patient.[facility] Encounter Details Date Type Department Care Team (Late st Contact Info) Description 04/02/2019 [facility] [place] [phone] Yoly Miller, ONEIDA.[place] [phone] RE: Non-Urgent Medical Question Social History Tobacco [...] Contact Info) Description 04/16/2025 8:00 AM EDT [facility] Gastroenterology [address] [address] Theo Morales MD [address] [place] [address] CONSULT TO GASTROENTEROLOGY Diarrhea, unspecified typ Multiple sclerosis (HCC) [G35]e [R19.7] 07/21/2025 10:30 AM EST [facility] Hematology/Oncolog [address] [place] [address] [place] documented as of this encounter Visit Diagnoses Not on filedocumented in this encounter Care Teams Government Service Executive Relationship Specialty Start Date End Date Jayme Franklin MD PCP - General Internal Medicine 08/12/13 documented as of this encounter
--- OUTSIDE RECORDS SUMMARY | 2025-03-03 09:00 | XMS_ITS | Encounter Summary ---
Author Organization [facility] Address [address] [place] [address] Care Team Providers Care Psychotherapist Counselor Name Role Phone Jayme Franklin MD Primary Care Provider [phone] Source Comments In the event this information is protected by the Federal Confidentiality of Alcohol and Drug AbusePatient Records regulations: The Federal rules restrict any use of the information to criminally investigate or prosecute any alcohol or drug abuse patient.[facility] Encounter Details Date Type Department Care Team (Late st Contact Info) Description 11/06/2018 Get Medical [place] [phone] Yoly Miller, ONEIDA.[place] [phone] RE: Non-Urgent Medical Question Social History Tobacco [...] Contact Info) Description 04/16/2025 8:00 AM EDT [facility] Gastroenterology [address] [address] Theo Morales MD [address] [place] [address] CONSULT TO GASTROENTEROLOGY Diarrhea, unspecified typ Multiple sclerosis (HCC) [G35]e [R19.7] 07/21/2025 10:30 AM EST [facility] Hematology/Oncolog [address] [place] [address] [place] documented as of this encounter Visit Diagnoses Not on filedocumented in this encounter Care Teams Psychotherapist Counselor Relationship Specialty Start Date End Date Jayme Franklin MD PCP - General Internal Medicine 08/12/13 documented as of this encounter
--- OUTSIDE RECORDS SUMMARY | 2025-03-03 09:00 | XMS_ITS | Encounter Summary ---
Author Organization [facility] Address [address] [place] [address] Care Team Providers Care Pullman Clerk Name Role Phone Jayme Franklin MD Primary Care Provider [phone] Source Comments In the event this information is protected by the Federal Confidentiality of Alcohol and Drug AbusePatient Records regulations: The Federal rules restrict any use of the information to criminally investigate or prosecute any alcohol or drug abuse patient.[facility] Reason for Referral * Specialty Diagnoses / Procedures Referred By Contprice t Referred To Contact Diagnoses Multiple sclerosis (HCC) Daytime sleepiness [facility] [address] [place] [address] Phone: tel: Referral ID Status Reason Start Date Expiration Date Visits Re quested Visits Authorized Encounter Details Date Type Department Care Team (Late st Contact Info) Description 04/02/2019 [facility] [address] [address] Yoly Miller, ONEIDA.[place] [phone] [place] [address] RE: Non-Urgent Medical Question Social History [...] Contact Info) Description 04/16/2025 8:00 AM EDT [facility] Gastroenterology [address] [address] Theo Morales MD [address] [place] [address] CONSULT TO GASTROENTEROLOGY Diarrhea, unspecified typ Multiple sclerosis (HCC) [G35]e [R19.7] 07/21/2025 10:30 AM [facility] Hematology/Oncolog y [address] [facility] [facility] [place] [address] [place] Scheduled Referrals Name Type Priority Associated Diagnoses Orde r Schedule CONSULT TO SLEEP MEDICINE - ADULT Referral Routine Multiple sclerosis (HCC) Daytime sleepiness Ordered: 04/03/2019 documented as of this encounter Visit Diagnoses Diagnosis Multiple sclerosis (HCC)- Primary Multiple sclerosis Daytime sleepiness documented in this encounter Care Teams Pullman Clerk Relationship Specialty Start Date End Date Jayme Franklin MD PCP - General Internal Medicine 08/12/13 documented as of this encounter
--- OUTSIDE RECORDS SUMMARY | 2025-03-03 09:00 | XMS_ITS | Encounter Summary ---
Author Organization [facility] Address [address] [place], [place] [phone] Care Team Providers Care Hi Teacher Name Role Phone Jayme Franklin MD Primary Care Provider [phone] Source Comments In the event this information is protected by the Federal Confidentiality of Alcohol and Drug AbusePatient Records regulations: The Federal rules restrict any use of the information to criminally investigate or prosecute any alcohol or drug abuse patient.[facility] Reason for Referral * MRI/CT (Routine) - Closed Specialty Diagnoses / Procedures Referred By Contac t Referred To Contact MR IMAGING Diagnoses Multiple sclerosis (HCC) Procedures MRI BRAIN WO/W IVCON MRI BRAIN BRAIN STEM W/O W/CONTRAST MATERIAL Yoly Miller APRN.CNP [address] [place] [address] Phone: tel: fax: MR IMAGING [facility] Referral ID Status Reason Start Date Expiration Date V isits Requested Visits Authorized [id number] Closed Auto-Generate d Referral 11/01/2023 07/23/2024 1 1 Encounter Details Date Type Department Care Team (Late st Contact Info) Description 08/22/2023 [facility] Medical Advice [facility] [address] [address] Yoly Miller APRN.YARN SPINNER [address] [place] [address] MRI Social History Tobacco Use Types Packs/Day [...] is lower risk 4 01/11/2023 Data from: https://www.neighborhoodatlas.[facility].edu/. Last address used for calculation [address] [place] [address] 01/11/2023 Comments No Sex and Gender [...] Author No 01/06/2015 2:50 PM EDT Alexandronehemias Tahir Jackie documented as of this encounter Mental Status * Because of a physical, mental, or emotional condition, do you have serious difficulty concentrating, remembering, or making decisions? Answer Entry Date Author No 01/06/2015 2:50 PM EDT Jackie Warren Ma documented in this encounter Plan of Treatment Upcoming Encounters Date Type Department Care Team (Latest Contact Info) Description 04/16/2025 8:00 AM EDT [facility] Gastroenterology [address] [address] Theo Morales MD [address] [place] [address] CONSULT TO GASTROENTEROLOGY Diarrhea, unspecified typ Multiple sclerosis (HCC) [G35]e [R19.7] 07/21/2025 10:30 AM EST [facility]fusion Center Hematology/Oncolog y [address] [place] [address] [place] documented as of this encounter Results [...] and assume there are 5 lumbar-type vertebrae. Ingredient Specialist: PSCB Transcribe Date/Time: Nov 14 2023 2:47P Dictated by : LEAH MURILLO MD This examination was interpreted and the report reviewed and electronically signed by: LEAH MURILLO MD on Nov 14 2023 2:59PM EST Narrative 11/14/2023 3:01 PM EDT * * *Final Report* * * DATE OF EXAM: Nov 14 2023 1:20PM [facility] 0295 - MRI BRAIN WO/W IVCON / [...] Improvement: None. New Enhancing Lesions: None T2 [place] of Disease: Mild. Parenchymal Volume Loss: None. [...] signal intensity and morphology. Cord T2 Plaque [place]: None New T2 Lesions: None Interval Cord [...] or equal to 2mm). Procedure Note Provider, [facility] [place] - 11/14/2023 * * *Final Report* * * DATE OF EXAM: Nov 14 2023 1:20PM DAMI Doe5 - MRI BRAIN WO/W IVCON / PROCEDURE [...] Improvement: None. New Enhancing Lesions: None T2 [place] of Disease: Mild. Parenchymal Volume Loss: None. [...] signal intensity and morphology. Cord T2 Plaque [place]: None New T2 Lesions: None Interval Cord [...] and assume there are 5 lumbar-type vertebrae. Ingredient Specialist: MYRTLE Transcribe Date/Time: Nov 14 2023 2:47P Dictated by : LEAH MURILLO MD This examination was interpreted and the report reviewed and electronically signed by: LEAH MURILLO MD on Nov 14 2023 2:59PM EST us Yoly Miller APRN.YARN SPINNER MRI-PAMA Final Result documented in this encounter Visit Diagnoses Diagnosis Multiple sclerosis (HCC)- Primary Multiple sclerosis Multiple sclerosis (HCC) Multiple sclerosis documented in this encounter Care Teams Hi Teacher Relationship Specialty Start Date End Date Jayme Franklin MD PCP - General Internal Medicine 08/12/13 documented as of this encounter
--- OUTSIDE RECORDS SUMMARY | 2025-03-03 09:00 | XMS_ITS | Encounter Summary ---
Author Organization [facility] Address [address] [place] [address] Care Team Providers Care Biztalk Architect Name Role Phone Jayme Franklin MD Primary Care Provider [phone] Source Comments In the event this information is protected by the Federal Confidentiality of Alcohol and Drug AbusePatient Records regulations: The Federal rules restrict any use of the information to criminally investigate or prosecute any alcohol or drug abuse patient.[facility] Encounter Details Date Type Department Care Team (Late st Contact Info) Description 07/31/2018 [facility] [place] [phone] Yoly Miller, ONEIDA.[place] [phone] RE: Non-Urgent Medical Question Social History Tobacco [...] Contact Info) Description 04/16/2025 8:00 AM EDT [facility] Gastroenterology [address] [address] Theo Morlaes MD 9500 [place] [address] CONSULT TO GASTROENTEROLOGY Diarrhea, unspecified typ Multiple sclerosis (HCC) [G35]e [R19.7] 07/21/2025 10:30 AM EST [facility] Hematology/Oncolog [address] [place] [address] Ocrevus documented as of this encounter Visit Diagnoses Not on filedocumented in this encounter Care Teams Biztalk Architect Relationship Specialty Start Date End Date Jayme Franklin MD PCP - General Internal Medicine 08/12/13 documented as of this encounter
--- OUTSIDE RECORDS SUMMARY | 2025-03-03 09:00 | XMS_ITS | Encounter Summary ---
Author Organization [facility] Address [address] [place] [address] Care Team Providers Care Pension Adviser Name Role Phone Jayme Franklin MD Primary Care Provider [phone] Source Comments In the event this information is protected by the Federal Confidentiality of Alcohol and Drug AbusePatient Records regulations: The Federal rules restrict any use of the information to criminally investigate or prosecute any alcohol or drug abuse patient.[facility] Encounter Details Date Type Department Care Team (Late st Contact Info) Description 11/07/2019 Get Medical Advice [place] [phone] Yoly Miller, ONEIDA.[place] [phone] RE: Non-Urgent Medical Question Social History Tobacco [...] Info) Description 04/16/2025 8:[address] [facility] Gastroenterology [address] [address] Theo Morales MD 9500 [place] [address] CONSULT TO GASTROENTEROLOGY Diarrhea, unspecified typ Multiple sclerosis (HCC) [G35]e [R19.7] 07/21/2025 10:30 AM EST [facility] Hematology/Oncolog [address] [place] [address] Ocrevus documented as of this encounter Visit Diagnoses Not on filedocumented in this encounter Care Teams Pension Adviser Relationship Specialty Start Date End Date Jayme Franklin MD PCP - General Internal Medicine 08/12/13 documented as of this encounter
--- OUTSIDE RECORDS SUMMARY | 2025-03-03 09:00 | XMS_ITS | Encounter Summary ---
Author Organization [facility] Address [address] [place] [address] Care Team Providers Care Coordinating Producer Name Role Phone Jayme Franklin MD Primary Care Provider [phone] Source Comments In the event this information is protected by the Federal Confidentiality of Alcohol and Drug AbusePatient Records regulations: The Federal rules restrict any use of the information to criminally investigate or prosecute any alcohol or drug abuse patient.[facility] Encounter Details Date Type Department Care Team (Late st Contact Info) Description 11/08/2021 Get Medical Advice [facility] [address] [place], [place] [phone] Yoly Miller, ONEIDA.[facility] 9500 [place] [phone] Urine sample Social History Tobacco Use Types [...] file 06/28/2020 Data from: https://www.neighborhoodatlas.medicine.[facility]/. Last address used for calculation [...] Contact Info) Description 04/16/2025 8:00 AM EDT [facility] Gastroenterology 2048 [place] [phone] Theo Morales MD [address] [place] [address] CONSULT TO GASTROENTEROLOGY Diarrhea, unspecified typ Multiple sclerosis (HCC) [G35]e [R19.7] 07/21/2025 10:30 AM [facility] Hematology/Oncolog y [address] [facility] [place] [place] [address] Ocrevus documented as of this encounter Visit Diagnoses Not on filedocumented in this encounter Care Teams Coordinating Producer Relationship Specialty Start Date End Date Jayme Franklin MD PCP - General Internal Medicine 08/12/13 documented as of this encounter
--- OUTSIDE RECORDS SUMMARY | 2025-03-03 09:00 | XMS_ITS | Encounter Summary ---
Author Organization [facility] Address [address] [place] [address] Care Team Providers Care Electronics Hardware Design Engineer Name Role Phone Jayme Franklin MD Primary Care Provider Source Comments In the event this information is protected by the Federal Confidentiality of Alcohol and Drug AbusePatient Records regulations: The Federal rules restrict any use of the information to criminally investigate or prosecute any alcohol or drug abuse patient.[facility] Encounter Details Date Type Department Care Team (Late st Contact Info) Description 08/09/2022 Get Medical Advice [facility] [address] [place], [place] [phone] Yoly Miller, ONEIDA.MILITARY SOURCE OPERATIONS OFFICER [address] [place], [place] [phone] Letter Social History Tobacco Use Types Packs/Day [...] N ot on file 08/09/2022 Data from: https://www.neighborhoodatlas.[facility]/. Last address used for calculation [address] [place] [address] [address] 08/09/2022 Comments No Sex and [...] Contact Info) Description 04/16/2025 8:00 AM EDT [facility] Gastroenterology [address] [address] Theo Morales MD 9500 [place] [address] CONSULT TO GASTROENTEROLOGY Diarrhea, unspecified typ Multiple sclerosis (HCC) [G35]e [R19.7] 07/21/2025 10:30 AM [facility] Hematology/Oncolog y [address] [address] Ocrevus documented as of this encounter Visit Diagnoses Not on filedocumented in this encounter Care Teams Electronics Hardware Design Engineer Relationship Specialty Start Date End Date Jayme Franklin MD PCP - General Internal Medicine 08/12/13 documented as of this encounter
--- OUTSIDE RECORDS SUMMARY | 2025-03-03 09:00 | XMS_ITS | Encounter Summary ---
Author Organization [facility] Address [address] [place] [address] Care Team Providers Care Marine Firefighter Name Role Phone Jayme Franklin MD Primary Care Provider [phone] Source Comments In the event this information is protected by the Federal Confidentiality of Alcohol and Drug AbusePatient Records regulations: The Federal rules restrict any use of the information to criminally investigate or prosecute any alcohol or drug abuse patient.[facility] Encounter Details Date Type Department Care Team (Late st Contact Info) Description 07/30/[address] [facility] [address] [place], [place] [phone] Yoly Milelr, ONEIDA.AUTOMOBILE RADIATOR MECHANIC [address]00 [place] [phone] Tired Social History Tobacco Use Types Packs/Day [...] N ot on file 06/28/2020 Data from: https://www.neighborhoodatlas.medicine.[facility]/. Last address used for calculation Not on [...] Contact Info) Description 04/16/2025 8:00 AM EDT [facility] Gastroenterology [address] [address] Theo Morales MD [address]00 [place] [address] CONSULT TO GASTROENTEROLOGY Diarrhea, unspecified typ Multiple sclerosis (HCC) [G35]e [R19.7] 07/21/2025 10:30 AM [facility] Hematology/Oncolog y [address] [facility] [place] [address] Ocrevus documented as of this encounter Visit Diagnoses Not on filedocumented in this encounter Care Teams Marine Firefighter Relationship Specialty Start Date End Date Jayme Franklin MD PCP - General Internal Medicine 08/12/13 documented as of this encounter
--- OUTSIDE RECORDS SUMMARY | 2025-03-03 09:00 | XMS_ITS | Encounter Summary ---
Author Organization [facility] Address [address] [place] [address] Care Team Providers Care Loss Prevention Auditor Name Role Phone Jayme Franklin MD Primary Care Provider [phone] Source Comments In the event this information is protected by the Federal Confidentiality of Alcohol and Drug AbusePatient Records regulations: The Federal rules restrict any use of the information to criminally investigate or prosecute any alcohol or drug abuse patient.[facility] Encounter Details Date Type Department Care Team (Late st Contact Info) Description 05/27/2020 Patient Msg MRI Q [address]49 [place] [phone] Provider, Ccf Questionnaire Submission Social History Tobacco [...] Author No 01/06/2015 2:50 PM EDT Jackie Warern Ma * Do you have serious difficulty [...] Contact Info) Description 04/16/2025 8:00 AM EDT [facility] Gastroenterology [address] [address] Theo Morales MD 9500 [place] [address] CONSULT TO GASTROENTEROLOGY Diarrhea, unspecified typ Multiple sclerosis (HCC) [G35]e [R19.7] 07/21/2025 10:30 AM EST [facility]fusion Center Hematology/Oncolog [address] [place] [address] Ocrevus documented as of this encounter Visit Diagnoses Not on filedocumented in this encounter Care Teams Loss Prevention Auditor Relationship Specialty Start Date End Date Jayme Franklin MD PCP - General Internal Medicine 08/12/13 documented as of this encounter
--- OUTSIDE RECORDS SUMMARY | 2025-03-03 09:00 | XMS_ITS | Encounter Summary ---
Author Organization [facility] Address [address] [place] [address] Care Team Providers Care Manager Copy Name Role Phone Jayme Franklin MD Primary Care Provider [phone] Source Comments In the event this information is protected by the Federal Confidentiality of Alcohol and Drug AbusePatient Records regulations: The Federal rules restrict any use of the information to criminally investigate or prosecute any alcohol or drug abuse patient.[facility] Encounter Details Date Type Department Care Team (Late st Contact Info) Description 09/22/2018 Patient [facility] [address] [place] [address] Autumn Aguilar MD [address] [place] [address] MRI Social History Tobacco Use Types [...] Contact Info) Description 04/16/2025 8:00 AM EDT [facility] Gastroenterology [address] [address] Theo Morales MD 9500 [place] [address] CONSULT TO GASTROENTEROLOGY Diarrhea, unspecified typ Multiple sclerosis (HCC) [G35]e [R19.7] 07/21/2025 10:30 AM EST [facility]fusion Center Hematology/Oncolog [address] [place] [address] Ocrevus documented as of this encounter Visit Diagnoses Not on filedocumented in this encounter Care Teams Manager Copy Relationship Specialty Start Date End Date Jayme Franklin MD PCP - General Internal Medicine 08/12/13 documented as of this encounter
--- OUTSIDE RECORDS SUMMARY | 2025-03-03 09:00 | XMS_ITS | Encounter Summary ---
Author Organization [facility] Address [address] [place] [address] Care Team Providers Care Manager Quality Compliance Name Role Phone Jayme Franklin MD Primary Care Provider [phone] Source Comments In the event this information is protected by the Federal Confidentiality of Alcohol and Drug AbusePatient Records regulations: The Federal rules restrict any use of the information to criminally investigate or prosecute any alcohol or drug abuse patient.[facility] Encounter Details Date Type Department Care Team (Late st Contact Info) Description 05/01/2020 Patient [facility] [address] [place] [address] Autumn Aguilar MD [address] [place] [address] Virtual Visit Social History Tobacco Use [...] Contact Info) Description 04/16/2025 8:00 AM EDT [facility] Gastroenterology [address] [address] Theo Morales MD 3128 [place] [address] CONSULT TO GASTROENTEROLOGY Diarrhea, unspecified typ Multiple sclerosis (HCC) [G35]e [R19.7] 07/21/2025 10:30 AM EST Infusion Center Hematology/Oncolog y [address] [place] [address] [place] [address] Ocrevus documented as of this encounter Visit Diagnoses Not on filedocumented in this encounter Care Teams Manager Quality Compliance Relationship Specialty Start Date End Date Jayme Franklin MD PCP - General Internal Medicine 08/12/13 documented as of this encounter
--- OUTSIDE RECORDS SUMMARY | 2025-03-03 09:00 | XMS_ITS | Encounter Summary ---
Author Organization [facility] Address [address] [place] [address] Care Team Providers Care Production Machinist Name Role Phone Jayme Franklin MD Primary Care Provider [phone] Source Comments In the event this information is protected by the Federal Confidentiality of Alcohol and Drug AbusePatient Records regulations: The Federal rules restrict any use of the information to criminally investigate or prosecute any alcohol or drug abuse patient.[facility] Encounter Details Date Type Department Care Team (Late st Contact Info) Description 05/27/2020 Get Medical Advice [place] [phone] Yoly Miller, ONEIDA.[place] [phone] RE: Non-Urgent Medical Question Social History Tobacco [...] Contact Info) Description 04/16/2025 8:00 AM EDT [facility] Gastroenterology [address] [address] Theo Morales MD [address] [facility] [place] [address] CONSULT TO GASTROENTEROLOGY Diarrhea, unspecified typ Multiple sclerosis (HCC) [G35]e [R19.7] 07/21/2025 10:30 AM EST Infusion Center Hematology/Oncolog y [address] [place] [address] [place] [address] Ocrevus documented as of this encounter Visit Diagnoses Not on filedocumented in this encounter Care Teams Production Machinist Relationship Specialty Start Date End Date Jayme Franklin MD PCP - General Internal Medicine 08/12/13 documented as of this encounter
--- OUTSIDE RECORDS SUMMARY | 2025-03-03 09:00 | XMS_ITS | Encounter Summary ---
Author Organization [facility] Address [address] [place] [address] Care Team Providers Care Financial Sales Assistant Name Role Phone Jayme Franklin MD Primary Care Provider [phone] Source Comments In the event this information is protected by the Federal Confidentiality of Alcohol and Drug AbusePatient Records regulations: The Federal rules restrict any use of the information to criminally investigate or prosecute any alcohol or drug abuse patient.[facility] Encounter Details Date Type Department Care Team (Late st Contact Info) Description 09/10/2018 [facility] [place] [phone] Yoly Miller, ONEIDA.[place] [phone] RE: Medication Question (Not Renewal) Social History [...] Contact Info) Description 04/16/2025 8:00 AM EDT [facility] Gastroenterology [address] [address] Theo Morales MD 9500 [place] [address] CONSULT TO GASTROENTEROLOGY Diarrhea, unspecified typ Multiple sclerosis (HCC) [G35]e [R19.7] 07/21/2025 10:30 AM EST Infusion Center Hematology/Oncolog [address] [place] [address] Ocrevus documented as of this encounter Visit Diagnoses Not on filedocumented in this encounter Care Teams Financial Sales Assistant Relationship Specialty Start Date End Date Jayme Franklin MD PCP - General Internal Medicine 08/12/13 documented as of this encounter
--- OUTSIDE RECORDS SUMMARY | 2025-03-03 09:00 | XMS_ITS | Encounter Summary ---
Author Organization [facility] Address [address] [place] [address] Care Team Providers Care Photographer Lithographic Name Role Phone Jayme Franklin MD Primary Care Provider [phone] Source Comments In the event this information is protected by the Federal Confidentiality of Alcohol and Drug AbusePatient Records regulations: The Federal rules restrict any use of the information to criminally investigate or prosecute any alcohol or drug abuse patient.[facility] Encounter Details Date Type Department Care Team (Late st Contact Info) Description 10/30/[address] [facility] [address] [place], [place] [phone] Yoly Miller, ONEIDA.ACCOUNTS RECEIVABLE PROCESSOR [address]00 [place] [phone] Problems Social History Tobacco Use Types Packs/Day [...] on file 06/28/2020 Data from: https://www.neighborhoodatlas.[facility]/. Last address used for calculation Not on [...] Description 04/16/2025 8:00 AM EDT [facility] Gastroenterology [address] [address] Theo Morales MD [address] [place] [address] CONSULT TO GASTROENTEROLOGY Diarrhea, unspecified typ Multiple sclerosis (HCC) [G35]e [R19.7] 07/21/2025 10:30 AM [facility] Hematology/Oncolog y [address] [facility] [place] [address] Ocrevus documented as of this encounter Visit Diagnoses Not on filedocumented in this encounter Care Teams Photographer Lithographic Relationship Specialty Start Date End Date Jayme Franklin MD PCP - General Internal Medicine 08/12/13 documented as of this encounter
--- OUTSIDE RECORDS SUMMARY | 2025-03-03 09:00 | XMS_ITS | Encounter Summary ---
Author Organization [facility] Address [address] [place] [address] Care Team Providers Care Outside Operator Name Role Phone Jayme Franklin MD Primary Care Provider [phone] Source Comments In the event this information is protected by the Federal Confidentiality of Alcohol and Drug AbusePatient Records regulations: The Federal rules restrict any use of the information to criminally investigate or prosecute any alcohol or drug abuse patient.[facility] Encounter Details Date Type Department Care Team (Late st Contact Info) Description 01/31/2017 [place] [address] Autumn Aguilar MD [address] [place] [address] RE: Non-Urgent Medical Question Social History [...] Contact Info) Description 04/16/2025 8:00 AM EDT [facility] Gastroenterology [address] [address] Theo Morales MD 9500 [place] [address] CONSULT TO GASTROENTEROLOGY Diarrhea, unspecified typ Multiple sclerosis (HCC) [G35]e [R19.7] 07/21/2025 10:30 AM EST Infusion Center Hematology/Oncolog [address] [place] [address] Ocrevus documented as of this encounter Visit Diagnoses Not on filedocumented in this encounter Care Teams Outside Operator Relationship Specialty Start Date End Date Jayme Franklin MD PCP - General Internal Medicine 08/12/13 documented as of this encounter
--- OUTSIDE RECORDS SUMMARY | 2025-03-03 09:00 | XMS_ITS | Encounter Summary ---
Author Organization [facility] Address [address] [place] [address] Care Team Providers Care Machinery Erector Name Role Phone Jayme Franklin MD Primary Care Provider [phone] Source Comments In the event this information is protected by the Federal Confidentiality of Alcohol and Drug AbusePatient Records regulations: The Federal rules restrict any use of the information to criminally investigate or prosecute any alcohol or drug abuse patient.[facility] Encounter Details Date Type Department Care Team (Late st Contact Info) Description 05/11/2020 Get Medical Advice [facility] [address] [place] [address] Ellen Lazo, DAE [address] [place] [address] RE: Non-Urgent Medical Question Social History Tobacco [...] Contact Info) Description 04/16/2025 8:00 AM EDT [facility] Gastroenterology [address] [id number] Theo Morales MD 6490 [place] [address] CONSULT TO GASTROENTEROLOGY Diarrhea, unspecified typ Multiple sclerosis (HCC) [G35]e [R19.7] 07/21/2025 10:30 AM EST [facility]fusion Center Hematology/Oncolog y [address] [place] [address] [place] [address] Ocrevus documented as of this encounter Visit Diagnoses Not on filedocumented in this encounter Care Teams Machinery Erector Relationship Specialty Start Date End Date Jayme Franklin MD PCP - General Internal Medicine 08/12/13 documented as of this encounter
--- OUTSIDE RECORDS SUMMARY | 2025-03-03 09:00 | XMS_ITS | Encounter Summary ---
Author Organization [facility] Address [address] [place] [address] Care Team Providers Care Stove Tender Name Role Phone Jayme Franklin MD Primary Care Provider [phone] Source Comments In the event this information is protected by the Federal Confidentiality of Alcohol and Drug AbusePatient Records regulations: The Federal rules restrict any use of the information to criminally investigate or prosecute any alcohol or drug abuse patient.[facility] Encounter Details Date Type Department Care Team (Late st Contact Info) Description 02/26/2025 Get Medical Advice [facility] [address] [place], [place] [address] Yoly Miller, ONEIDA.EMPLOYEE RELATIONS SPECIALIST [address] [place] [phone] Consult to Gastro Social History Tobacco Use Types Packs/Day Years [...] is lower risk 4 01/11/2023 Data from: https://www.neighborhoodatlas.[facility]/. Last address used for calculation [address] [place] [address] [address] 01/11/2023 Comments No Sex and [...] Contact Info) Description 04/16/2025 8:00 AM EDT [facility] Gastroenterology [address] [address] Theo Morales MD [address]00 [place] [address] CONSULT TO GASTROENTEROLOGY Diarrhea, unspecified typ Multiple sclerosis (HCC) [G35]e [R19.7] 07/21/2025 10:30 AM [facility] Hematology/Oncolog y [address] [facility] [place] [address] Ocrevus documented as of this encounter Visit Diagnoses Not on filedocumented in this encounter Care Teams Stove Tender Relationship Specialty Start Date End Date Jayme Franklin MD PCP - General Internal Medicine 08/12/13 documented as of this encounter
--- OUTSIDE RECORDS SUMMARY | 2025-03-03 09:00 | XMS_ITS | Encounter Summary ---
Author Organization [facility] Address [address] [place] [address] Care Team Providers Care Natural Resources Engineer Name Role Phone Jayme Franklin MD Primary Care Provider [phone] Source Comments In the event this information is protected by the Federal Confidentiality of Alcohol and Drug AbusePatient Records regulations: The Federal rules restrict any use of the information to criminally investigate or prosecute any alcohol or drug abuse patient.[facility] Encounter Details Date Type Department Care Team (Late st Contact Info) Description 07/30/2016 Patient Msg Medical Records [address] [place], [place] [id number] Provider, Ccf fatigue Social History Tobacco Use [...] Contact Info) Description 04/16/2025 8:00 AM EDT [facility] Gastroenterology [address] [address] Theo Morales MD [address]00 [place] [address] CONSULT TO GASTROENTEROLOGY Diarrhea, unspecified typ Multiple sclerosis (HCC) [G35]e [R19.7] 07/21/2025 10:30 AM [facility] Hematology/Oncolog y [address] [place] [address] [place] [address] [place] documented as of this encounter Visit Diagnoses Not on filedocumented in this encounter Care Teams Natural Resources Engineer Relationship Specialty Start Date End Date Jayme Franklin MD PCP - General Internal Medicine 08/12/13 documented as of this encounter
--- OUTSIDE RECORDS SUMMARY | 2025-03-03 09:00 | XMS_ITS | Encounter Summary ---
Author Organization [facility] Address [address] [place] [address] Care Team Providers Care Fashion Artist Name Role Phone Jayme Franklin MD Primary Care Provider [phone] Source Comments In the event this information is protected by the Federal Confidentiality of Alcohol and Drug AbusePatient Records regulations: The Federal rules restrict any use of the information to criminally investigate or prosecute any alcohol or drug abuse patient.[facility] Encounter Details Date Type Department Care Team (Late st Contact Info) Description 08/05/2018 Get [facility] [place] [phone] Yoly Miller, ONE[place] [phone] RE: Non-Urgent Medical Question Social History Tobacco [...] Info) Description 04/16/2025 8:00 AM EDT [facility] Gastroenterology [address] [address] Theo Morales MD [address] [place] [address] CONSULT TO GASTROENTEROLOGY Diarrhea, unspecified typ Multiple sclerosis (HCC) [G35]e [R19.7] 07/21/2025 10:30 AM EST [facility] Hematology/Oncolog [address] [place] [address] Ocrevus documented as of this encounter Visit Diagnoses Not on filedocumented in this encounter Care Teams Fashion Artist Relationship Specialty Start Date End Date Jayme Franklin MD PCP - General Internal Medicine 08/12/13 documented as of this encounter
--- OUTSIDE RECORDS SUMMARY | 2025-03-03 09:00 | XMS_ITS | Encounter Summary ---
Author Organization [facility] Address [address] [place] [address] Care Team Providers Care Finishing Pan Operator Name Role Phone Jayme Franklin MD Primary Care Provider [phone] Source Comments In the event this information is protected by the Federal Confidentiality of Alcohol and Drug AbusePatient Records regulations: The Federal rules restrict any use of the information to criminally investigate or prosecute any alcohol or drug abuse patient.[facility] Encounter Details Date Type Department Care Team (Late st Contact Info) Description 03/08/2017 Patient [facility] [address] [place] [phone] Megha Curry, ASSEMBLING FABRICATOR.[place] [phone] RE: Appointment Cancellation Request Social History Tobacco [...] AM EDT [facility] Gastroenterology [address] [address] Theo Morales MD [address] [place] [phone] CONSULT TO GASTROENTEROLOGY Diarrhea, unspecified typ Multiple sclerosis (HCC) [G35]e [R19.7] 07/21/2025 10:30 AM EST [facility] Hematology/Oncolog [address] [place] [address] O[place]vus documented as of this encounter Visit Diagnoses Not on filedocumented in this encounter Care Teams Finishing Pan Operator Relationship Specialty Start Date End Date Jayme Franklin MD PCP - General Internal Medicine 08/12/13 documented as of this encounter
--- OUTSIDE RECORDS SUMMARY | 2025-03-03 09:00 | XMS_ITS | Encounter Summary ---
Author Organization [facility] Address [address] [place] [address] Care Team Providers Care Cisco Certified Network Associate Name Role Phone Jayme Franklin MD Primary Care Provider [phone] Source Comments In the event this information is protected by the Federal Confidentiality of Alcohol and Drug AbusePatient Records regulations: The Federal rules restrict any use of the information to criminally investigate or prosecute any alcohol or drug abuse patient.[facility] Reason for Referral * Diagnostic Procedure Only (Routine) - Closed Specialty Diagnoses / Procedures Referred By Contac t Referred To Contact MR IMAGING Diagnoses Multiple sclerosis (HCC) Procedures MRI BRAIN WO/W IVCON MRI BRAIN COMBO Autumn Aguilar MD [address] [place] [address] Phone: tel: fax: MR IMAGING [facility] Referral ID Status Reason Start Date Expiration Date V isits Requested Visits Authorized [id number] Closed Auto-Generate d Referral 03/25/2020 07/23/2020 3 3 Encounter Details Date Type Department Care Team (Late st Contact Info) Description 08/18/[address] [address] Yoly Miller, ASSISTANT CHIEF ENGINEER.TAX ASSISTANT [address] [place] [address] RE: Non-Urgent Medical Question Social History Tobacco [...] 04/16/2025 8:00 AM EDT [facility] Gastroenterology [address] [place] [phone] Theo Morales MD [address] [place] [address] CONSULT TO GASTROENTEROLOGY Diarrhea, unspecified typ Multiple sclerosis (HCC) [G35]e [R19.7] 07/21/2025 10:30 AM [facility] Infusion Center Hematology/Oncolog y [address] [place] [address] Ocrevus documented as of this encounter Results [...] by greater than or equal to 2mm). Bank Worker: PSCB Transcribe Date/Time: Mar 31 2020 10:13P [...] Improvement: None. New Enhancing Lesions: None T2 Brashear of Disease: Mild. Parenchymal Volume Loss: None. Other Significant Findings/Site(s) of New T2 Lesion(s): None. Procedure Note Provider, [facility] [place] - 03/31/2020 * * *Final Report* * [...] Improvement: None. New Enhancing Lesions: None T2 Brashear of Disease: Mild. Parenchymal Volume Loss: None. [...] by greater than or equal to 2mm). Bank Worker: PSCB Transcribe Date/Time: Mar 31 2020 10:13P Dictated by : BEATRICE CHAO MD This examination was interpreted and the report reviewed and electronically signed by: BEATRICE CHAO MD on Mar 31 2020 10:14PM EST us Autumn Aguilar MD MRI-PAMA Final Result documented in this encounter Visit Diagnoses Diagnosis Multiple sclerosis (HCC)- Primary Multiple sclerosis Multiple sclerosis (HCC) Multiple sclerosis documented in this encounter Care Teams Cisco Certified Network Associate Relationship Specialty Start Date End Date Jayme Franklin MD PCP - General Internal Medicine 08/12/13 documented as of this encounter
--- OUTSIDE RECORDS SUMMARY | 2025-03-03 09:00 | XMS_ITS | Encounter Summary ---
Author Organization [facility] Address [address] [place] [address] Care Team Providers Care Licensed Audiologist Name Role Phone Jayme Franklin MD Primary Care Provider [phone] Source Comments In the event this information is protected by the Federal Confidentiality of Alcohol and Drug AbusePatient Records regulations: The Federal rules restrict any use of the information to criminally investigate or prosecute any alcohol or drug abuse patient.[facility] Encounter Details Date Type Department Care Team (Late st Contact Info) Description 05/24/2019 [facility] Medical [place] [phone] Yoly Miller, ONEIDA.[place] [phone] RE: Non-Urgent Medical Question Social History Tobacco [...] Contact Info) Description 04/16/2025 8:00 AM EDT [facility] Gastroenterology [address] [address] Theo Morales MD [address] [place] [address] CONSULT TO GASTROENTEROLOGY Diarrhea, unspecified typ Multiple sclerosis (HCC) [G35]e [R19.7] 07/21/2025 10:30 AM EST [facility]fusion Center Hematology/Oncolog [address] [place] [address] O[place] documented as of this encounter Visit Diagnoses Not on filedocumented in this encounter Care Teams Licensed Audiologist Relationship Specialty Start Date End Date Jayme Franklin MD PCP - General Internal Medicine 08/12/13 documented as of this encounter
--- OUTSIDE RECORDS SUMMARY | 2025-03-03 09:00 | XMS_ITS | Clinical Summary ---
Author Organization [facility] Address [address] [place] [address] Care Team Providers Care Bill Clerk Name Role Phone Jayme Franklin MD Primary Care Provider Allergies Active Allergy Reactions Criticality Noted Date [...] and puberty, not elsewhere classified 04/12/2005 Encounters * This document contains information received from the source organization and may not represent a complete record from that organization. Date Type Department Care Team Description 02/26/2025 Get Medical Advice [address] [address] Yoly Miller APRN.INSTRUCTIONAL RESOURCE TEACHER Consult to Gastro 02/08/2025 10:45 AM EDT [address] [address] Yoly Miller APRN.CNP Multiple sclerosis (HCC) (Primary Dx); Continuous leakage of urine; Diarrhea, unspecified type 02/08/[address] [address] Yoly Miller APRN.INSTRUCTIONAL RESOURCE TEACHER Appointment (lvm for pt about scheduling 6 month virtual follow up with Yoly Miller per order workstation. called [phone]) 02/08/2025 Travel 01/13/2025 10:30 AM EDT [facility] Hematology/Oncology [address] [place] [address] [place] [address] Multiple sclerosis (HCC) (Primary Dx) 01/07/2025 Orders Only [facility] [address] [address] Yoly Miller APRN.CNP 01/06/2025 Travel 12/24/2024 Get Medical Advice [facility] [address] [address] Yoly Miller APRN.VEENA Work note for breaks from Last 3 Months Family History Medical [...] is lower risk 4 01/11/2023 Data from: https://www.neighborhoodatlas.[facility].edu/. Last address used for calculation [address] [place] [address] [address] 01/11/2023 Comments No Sex and [...] kg (274 lb 4 oz) 12/29/2023 1:43 P M EDT Height 167.6 cm (5' 6 ) 12/29/2023 1:43 PM EDT Body Mass Index 44.27 12/29/2023 1:43 PM EDT Plan of Treatment Upcoming Encounters Date Type Department Care Team (Latest Contact Info) Description 04/16/2025 8:00 AM EDT [facility] Gastroenterology [address] [address] Theo Morales MD [address] [place] [address] CONSULT TO GASTROENTEROLOGY Diarrhea, unspecified typ Multiple sclerosis (HCC) [G35]e [R19.7] 07/21/2025 10:30 AM [facility] Hematology/Oncolog y [address] [facility] [place] [address] Ocrevus Health Maintenance Due Date Last Done Comments Anxiety Screening 11/06/2015 Depression Screening 11/06/2015 Cervical Cancer Screening 2018 DTaP,Tdap,Td Vaccine (7 - Td or Tdap) 01/19/2020 01/18/2010, 11/06/2001, 11/26/1999, Additional history exists HPV Vaccine (1 - 3-dose SCDM series) 2024 Influenza Vaccine (#1) 2025 Hepatitis B Vaccine [...] - 11.00 k/uL 01/13/2025 10:29 AM EDT [facility] RBC 4.81 3.90 - 5.20 m/uL 01/13/2025 10:29 AM EDT [facility] Hemoglobin 13.8 11.5 - 15.5 g/dL 01/13/2025 10:29 AM EDT [facility] Hematocrit 41.5 36.0 - 46.0 % 01/13/2025 10:29 AM EDT [facility] MCV 86.3 80.0 - 100.0 fL 01/13/2025 10:29 AM EDT [facility] MCH 28.7 26.0 - 34.0 pg 01/13/2025 10:29 AM EDT [facility] MCHC 33.3 30.5 - 36.0 g/dL 01/13/2025 10:29 AM EDT [facility] RDW-CV 12.9 11.5 - 15.0 % 01/13/2025 10:29 AM EDT [facility] Platelet Count 377 150 - 400 k/uL 01/13/2025 10:29 AM EDT [facility] MPV 9.9 9.0 - 12.7 fL 01/13/2025 10:29 AM EDT [facility] Neutrophils % 66.7 % 01/13/2025 10:29 AM EDT [facility] Abs Neut 6.14 1.45 - 7.50 k/uL 01/13/2025 10:29 AM EDT [facility] Lymphocytes % 24.7 % 01/13/2025 10:29 AM EDT [facility] Abs Lymph 2.28 1.00 - 4.00 k/uL 01/13/2025 10:29 AM EDT [facility] Monocytes % 5.9 % 01/13/2025 10:29 AM EDT [facility] Abs Sibley 0.54 <0.87 k/uL 01/13/2025 10:29 AM EDT [facility] Eosinophils % 1.7 % 01/13/2025 10:29 AM EDT [facility] Abs Eosin 0.16 <0.46 k/uL 01/13/2025 10:29 AM EDT [facility] Basophils % 0.5 % 01/13/2025 10:29 AM EDT [facility] Abs Baso 0.05 <0.11 k/uL 01/13/2025 10:29 AM EDT [facility] Immature Granulocytes % 0.5 % 01/13/2025 10:29 AM EDT [facility] Abs Immature Gran 0.05 <0.10 k/uL 025 10:29 AM EDT [facility] NRBC 0.0 /100 WBC 01/13/2025 10:29 AM EDT [facility] Absolute nRBC <0.01 <0.01 k/uL 01/13/2025 10:29 AM EDT [facility] Diff Type Auto 01/13/2025 10:29 AM EDT [facility] Blood BLOOD SPECIMEN / Unknown Venipuncture / Unknown 01/13/2025 10:25 AM EDT 01/13/2025 10:27 AM EDT us Yoly Miller CHARGE ACCOUNTS AUDIT CLERK.INSTRUCTIONAL RESOURCE TEACHER LABORATORY Final Result [facility] [address] [place] [address] * HIV 1,2 COMBO (AG/AB) (10/05/2017 11:31 AM EDT) HIV 12 Combo (Ag/Ab) Non Reactive Non Reactive 10/05/2017 8:47 PM EDT [facility] Comment: (NOTE) HIV Information: [place] Rev. Code 3701.243(E): This information has been [...] 11:31 AM EDT 10/05/2017 11:33 AM EDT Autumn Aguilar MD LABORATORY Final Result [facility] [address] [place] [address] * HEP REMOTE PANEL BL (10/05/2017 11:31 AM EDT) Hep B Core Ab, Total Negative Negative 10/06/2017 1:10 PM EDT [facility] Hep C Antibody IA Negative Negative 10/06/2017 1:10 PM EDT [facility] HBsAg Negative Negative 10/06/2017 1:10 PM EDT [facility] Hep B Surface Ab, Qual Negative Negative 10/06/2017 1:10 PM EDT [facility] Comment:NEGATIVE Blood specimen (specimen) BLOOD SPECIMEN / Unknown 10/05/2017 11:31 AM EDT 10/05/2017 11:33 AM EDT Autumn Aguilar MD LABORATORY Final Result Performing Organization Address City/[facility] Co de Phone Number [facility] [address] [place] [address] from Last 3 Months or Most Recently Relevant to Health Maintenance Insurance [facility] MEDICAID Care Teams Bill Clerk Relationship Specialty Start Date End Date Jayme Franklin MD PCP - General Internal Medicine 08/12/13
--- OUTSIDE RECORDS SUMMARY | 2025-03-03 09:00 | XMS_ITS | Encounter Summary ---
Author Organization [facility] Address [address] [place] [address] Care Team Providers Care Dry Ice Maker Name Role Phone Jayme Franklin MD Primary Care Provider [phone] Source Comments In the event this information is protected by the Federal Confidentiality of Alcohol and Drug AbusePatient Records regulations: The Federal rules restrict any use of the information to criminally investigate or prosecute any alcohol or drug abuse patient.[facility] Encounter Details Date Type Department Care Team (Late st Contact Info) Description 05/24/2019 [facility] Medical [place] [phone] Yoly Miller, ONEIDA.[place] [phone] RE: Non-Urgent Medical Question Social History Tobacco [...] Contact Info) Description 04/16/2025 8:00 AM EDT [facility] Gastroenterology [address] [address] Theo Morales MD [address] [place] [address] CONSULT TO GASTROENTEROLOGY Diarrhea, unspecified typ Multiple sclerosis (HCC) [G35]e [R19.7] 07/21/2025 10:30 AM EST Infusion Center Hematology/Oncolog [address] [place] [address] O[place] documented as of this encounter Visit Diagnoses Not on filedocumented in this encounter Care Teams Dry Ice Maker Relationship Specialty Start Date End Date Jayme Franklin MD PCP - General Internal Medicine 08/12/13 documented as of this encounter
[2025-03-03 09:20] LABS: Hematocrit 44.9 % (36.0-48.0); Hemoglobin 14.6 g/dL (12.0-16.0); Immature Granulocytes Abs Auto 0.03 10^3/uL (0.00-0.03); Immature Granulocytes Pct Auto 0.3 % (0.0-0.5); Lymphocytes Absolute Auto 2.6 10^3/uL (1.2-3.8); Mean Corpuscular HGB Conc 32.5 g/dL (29.9-35.2); Mean Corpuscular Hemoglobin 28.9 pg (26.7-34.0); Mean Corpuscular Volume 88.9 fL (81.0-99.0); Platelet Count 390 10^3/uL (150-450); Red Blood Count 5.05 10^6/uL (4.20-5.40); White Blood Count 8.6 10^3/uL (4.0-11.0)
[2025-03-03 10:11] LABS: Alanine Aminotransferase 52 U/L (14-59); Albumin Globulin Ratio 1.0; Albumin Level 3.2 g/dL (3.4-5.0); Alkaline Phosphatase 100 U/L (46-116); Anion Gap 10.0; Aspartate Amino Transferase 27 U/L (15-37); Blood Urea Nitrogen 10.0 mg/dL (7.0-18.0); Calcium 8.7 mg/dL (8.5-10.1); Carbon Dioxide 30.3 mmol/L (21.0-32.0); Chloride 104 mmol/L (98-107); Cholesterol 196 mg/dL (<=200); Estimated GFR (African America >60 (>=60 mL/min/1.73m^2); Estimated GFR (Non-African Ame >60 (>=60 mL/min/1.73m^2); Globulin 3.2 g/dL; Glucose 100 mg/dL (74-106); HDL Cholesterol 53 mg/dL (40-60); Potassium 4.3 mmol/L (3.5-5.1); Sodium 140 mmol/L (136-145); Thyroid Stimulating Hormone 1.668 uIU/mL (0.358-3.740); Total Protein 6.4 g/dL (6.4-8.2); Triglycerides 168 mg/dL (<=150); VLDL CHOLESTEROL 33.6 mg/dL
== END 2025-03-03 08:56 | disposition home or self-care (01) ==
LOC: LAB 08:56
PROVIDERS: PCP Family Medicine; Visit Provider Family Medicine
DX: Z00.00 Encounter for general adult medical examination without abnormal findings (principal); E88.819 Insulin resistance, unspecified
CPT/HCPCS: 36415; 80048; 80061; 80076; 83036; 83525; 84443; 85025

== ENCOUNTER 2025-06-10 11:30 | Emergency (ER) | payer OTHER, SELFPAY ==
[2025-06-10 11:36] VITALS: BP 139/97; PULSE 78; TEMP 36.9; O2SAT 98; BMI 43.6
--- OUTSIDE RECORDS SUMMARY | 2025-06-10 11:50 | XMS_ITS | CCD ---
Author Organization [facility] CliniSywa Care Team Providers Care Field Return Repairer Name Role Phone Jayme Schmidt Primary Care Provider [phone] JAYME SCHMIDT Primary Care Unavailabl e JULISSA, JAYME GUADARRAMA Attending Unavailabl e ALEEREShelby, JAYME GUADARRAMA Primary Care Unavailabl MD DAVID Nichols Attending Suzyvai labJAYME Gamez Primary Care Physician MATTHEW, DR GOLDBERG Admitting Unavailable NILL, DR GOLDBERG Consulting Unavailable NILL, DR GOLDBERG Attending Unavailable NADEREShelby, DR JAYME Herrera Primary Care Unavailable NILL, DR GOLDBERG Admitting Unavailable NILL, DR GOLDBERG Consulting Unavailable NILL, DR GOLDBERG Attending Unavailable NADERER, DR JAYME Herrera Primary Care Unavailable IVELISSE, SAMUEL LEOS Consulting Unava ilable GEMBUS, OPAL Consulting Unavailable NADEREShelby, DR JAYME Herrera Primary Care Unavailable NADERER, DR JAYME Herrera Consulting Unavailable NADERER, DR JAYME Herrera Attending Unavailable ALEEREShelby, DR JAYME Herrera Admitting Unavailable Jayme Schmidt Primary Care Provider [phone] Erica Perry Unavailable Carol Ann Lees Unavailable MATTHEW, Yusuf Ryan Attending Unavailable NADEREJAYME Ryan Referring Unavailable NILL, Yusuf Ryan Attending Unavailable NADEREShelby, JAYME Referring Unavailable NILL, Yusuf Ryan Attending Unavailable NILL, Yusuf Ryan Attending Unavailable Clau Narayan Attending Unavailable Jayme Schmidt Primary Care Provider [phone] MD Jayme Schmidt Primary Care Provider [phone] ONEIDA Allred Attending Provider [phone] MARIELLE GANNON Referring Unavailable MARIELLE GANNON Attending Unavailable JAYME SCHMIDT Primary Care Unavailable Jayme Schmidt MD Primary Care Provider [phone] Jayme Schmidt MD Primary Care Provider [phone] Jayme Schmidt MD Unavailable LEANN, ZOE Attending Unavailable LEANN, ZOE Attending Unavailable LEANN, ZOE Attending Unavailable NADERER, JAYME Attending Unavailable NADERER, JAYME Attending Unavailable LEANN, ZOE Attending Unavailable TIMMIS, JONATHAN H Attending Unavailable BUTCH, CASEY Attending Unavailable NADERER, JAYME Attending Unavailable LEANN, ZOE Attending Unavailable NADERER, JAYME Attending Unavailable LEANN, ZOE Attending Unavailable Naderer Jayme BENÍTEZ Primary Care Provider Jayme Schmidt MD Attending Provider [phone] JAYME SCHMIDT A Primary Care Unavailable RENSEL, AUTUMN R Attending Unavailable CHIZMADIA, YOLY Attending Unavailable NADERER, JAYME A Primary Care Unavailable NADERER, JAYME A Primary Care Unavailable RENSEL, AUTUMN R Referring Unavailable NADERER, JAYME A Primary Care Unavailable RENSEL, AUTUMN R Attending Unavailable SELF Referring Unavailable NADERER, JAYME A Primary Care Unavailable SELF Referring Unavailable CHIZMADIA, YOLY Referring Unavailable NADERER, JAYME A Primary Care Unavailable LASTHEO KONG Attending Unavailable NADERER, JAYME A Primary Care Unavailable SELF Referring Unavailable RENSEL, AUTUMN R Referring Unavailable NADERER, JAYME A Primary Care Unavailable NADERER, JAYME A Primary Care Unavailable SELF Referring Unavailable Naderer Jayme BENÍTEZ Primary Care Provider Jayme Schmidt MD Unavailable THEO LUNA Referring Unavailable NADERER, JAYME A Primary Care Unavailable LASHNTHEO LOPEZ Referring Unavailable NADERER, JAYME A Primary Care Unavailable Theo Luna MD Attending Provider Theo Luna Attending Unavailable Theo Luna Admitting Unavailable Nadsolor, Jayme Primary Care Unavailable Jayme Schmidt MD Primary Care Provider Jayme Schmidt MD Attending Provider Theo Luna MD Attending Provider Allergies Allergy ClassificationReported Allergen(s)Allergy TypeDate of OnsetReaction(s) Facility (20 sources)Glatiramer; Translations: [glatiramer]Drug [id number], Weal (disorder), [facility] ([facility])Interferon beta-1a; Translations: [interferon beta-1a]Drug Allergy 05-14-5605Hjxnd, Shortness of Breath, Dyspnea (finding)[facility] (3 sources)Glatiramer; Translations: [Copaxone]Drug [id number] [facility] [place] [facility] (7 sources)Interferon beta-1a; Translations: [Avonex]Drug [id number] [facility] Repository (2 sources)Glatiramer; Translations: [glatiramer]Drug Ynkrhcu89-39-0149KsvUniversity [facility]als [facility] Rep[facility] (1 source)interferon beta-1aDrug allergy (disorder)[facility] Repository (20 sources)GlatiramerDrug Qjcjqip65-96-7988MyvkvvcVNLX Healthcare Work Phone: (20 sources)moxifloxacinDrug Haxowsn34-16-0938WgooxvqAKBE Healthcare (20 sources)Interferon Beta-1aPropensity to adverse nnqfnohhk00-73-5047 Anaphylaxis, Hives, Shortness of breathNOMS Healthcare (20 sources)GlatiramerDrug Sifloel75-46-7622FkabYNFW Healthcare (1 source)GlatiramerDrug Zqcqesr14-25-5511QtxtgtvusOur [facility] (1 source)interferon beta-1aDrug allergy (disorder)05-06-7448TnolhxdvoOur [facility] Of [facility] Medications Current Medications MedicationDrug Class(es)DatesSig (Normalized)Sig (Original)Amphetamine / Dextroamphetamine (5 sources)Central Nervous System StimulantStart: 25-50-4159Kppkcfwl 20 mg oral tablet 20 mg, 1 tab(s), Oral, Noon, Refill(s) 0 Start Date: 05/12/22 Status: Ord eredAdderall XR ActiveARIPiprazole 20 mg oral tablet (20 sources)Atypical AntipsychoticStart: 21-66-1265urlk 1 tablet by mouth once dailyAripiprazole 20 mg tablet Active 20 MG PO Daily April 01, 2025 11:00pm Complies with drug therapyStart: 07-85-5138zfnb 1 tablet by mouth once daily ARIPiprazole (Abilify) 20 MG tablet Indications: Bipolar 1 disorder, depressed, mild (HCC) Take 1 tablet (20 mg) by mouth Daily 30 tablet 3 02/25/2025 Active Start: 09-25-2023 End: 00-44-9501Ckbvjrbopmxn 15 mg tablet Discontinued MG PO September 25, 2023 12:00am April 02, 2025 7:15amStart: 53-94-3425Iucbophtbgvo Active MG PO September 25, 2023 1:00amStart: 54-28-5093yiux 1 tablet by mouth once daily at bedtimeARIPiprazole (ABILIFY) 10 mg tablet TAKE 1 TABLET BY MOUTH EVERYDAY AT BEDTIME 11/06/2020 ActiveAbilify ActiveComment on above:TAKE 1 TABLET BY MOUTH EVERYDAY AT BEDTIMEaspirin 162.5 MG split tablet (19 sources)Start: 65-56-9152ohbx 2 tablets by mouth onceaspirin 162.5 MG split tablet Take 325 mg by mouth 1 (one) time 08/19/2024 Activebaclofen 10 mg oral tablet (20 sources)gamma-Aminobutyric Acid-ergic AgonistStart: 08-03-2021 End: 51-01-3806vjfd 1 tablet by mouth every twenty-four hours as neededbaclofen (LIORESAL) 10 mg tablet Take 1 tablet by mouth at bedtime as needed. Take 1 tablet by mouth before bed daily 30 tablet 11 09/02/2022 ActiveComment on above: Take 1 tablet by mouth at bedtime as needed. Take 1 tablet by mouth before bed dailybusPIRone hydrochloride 15 mg oral tablet (11 sources)Start: 08-86-9849irij 1 tablet by mouth twice dailyBuspirone 15 mg tablet Active 15 MG PO Twice daily 60 3 April 02, 2025 10:51am Complies with drug therapyStart: 04-02-2025 End: 39-66-7499ikhw 1 tablet by mouth twice dailyBuspirone 7.5 mg tablet Discontinued 7.5 MG PO Twice daily April 01, 2025 11:00pm April 02, 2025 10:52amStart: 39-13-1854xpbf 1 tablet by mouth in the morningbusPIRone (Buspar) 7.5 MG tablet Indications: JEFF (generalized anxiety disorder) TAKE 1 TABLET (7.5MG) BY MOUTH IN THE MORNING AND 1 TABLET (7.5 MG) BEFORE BEDTIME. 180 tablet 3 03/21/2025 ActiveStart: 02-25-2025 End: 55-05-5538hixf 1 tablet by mouth in the morningbusPIRone (Buspar) 7.5 MG tablet Indications: JEFF (generalized anxiety disorder) Take 1 tablet (7.5mg) by mouth in the morning and 1 tablet (7.5 mg) before bedtime. 60 tablet 2 02/25/2025 03/21/2025Discontinuedcholecalciferol 0.05 mg oral capsule (20 sources)Vitamin DStart: 29-26-7231taoh 1 capsule by mouth once daily Cholecalciferol, Vitamin D3, 2,000 unit cap TAKE ONE CAPSULE BY MOUTH EVERY DAY 30 capsule 5 03/08/2017 Active End: 88-17-7854ngng 1 tablet by mouth once dailycholecalciferol (Vitamin D-3) 50 MCG (2000 UT) tablet Take 1 tablet by mouth 1 (one) time each day at the same time. 06/24/2024 DiscontinuedComment on above:TAKE ONE CAPSULE BY MOUTH EVERY DAYcholestyramine resin 4000 mg powder for oral suspension (1 source)Bile Acid SequestrantStart: 61-33-7899Omdfxtaw 4 g/9 g oral powder = 1 packet(s), Oral, BID, # 60 EA, Refills(s) 3, Pharmacy: [facility]/pharmacy #[id number], 165, cm, 05/24/22 14:22:00 EDT, Height/Length Dosing, 106, kg, 05/24/22 14:22:00 EDT, Weight Dosing Start Date: 07/05/22 Status: Orderedclotrimazole 10 mg/ml topical cream (20 sources)Azole AntifungalStart: 71-56-6749Eqzeuofjnhvf 1 % cream Active 1 APPLIC TOPICAL Twice daily April 01, 2025 11:00pm Complies with drug therapyStart: 07-30-2024 End: 38-64-8858corbsrowmjgq (Lotrimin) 1 % cream Indications: Tinea cruris Apply topically in the morning and before bedtime. 60 g 2 02/25/2025 Active dicyclomine hydrochloride 20 mg oral tablet (20 sources)AnticholinergicStart: 05-12-2022 End: 65-45-5189ulomqadslpx (Bentyl) 20 MG tablet Take 20 mg by mouth in the morning and 20 mg at noon and 20 mg inthe evening and 20 mg before bedtime. Take before meals. 05/12/2022 ActiveEthinyl Estradiol / norgestimate (20 sources)Progestin, EstrogenStart: 34-01-7176ukza 1 tablet by mouth once dailynorgestimate-ethinyl estradiol (Ortho Tri-Cyclen,Trinessa) 0.18/0.215/0.25 MG-35 MCG tablet Indications: Family planning TAKE 1 TABLET BY MOUTH EVERY DAY 84 tablet 3 01/10/2025 ActiveStart: 27-78-6131lpig 1 tablet by mouth once daily norgestimate-ethinyl estradiol (Ortho Tri-Cyclen,Trinessa) 0.18/0.215/0.25 MG-35 MCG tablet Indications: Family planning TAKE 1 TABLET BY MOUTH EVERY DAY 84 tablet 3 02/14/2024 ActiveStart: 85-98-0287Seinevupcuvh-Ethinyl Estradiol 0.18/0.215/0.25 mg-35 mcg (28) tablet Active TAB PO September 25, 2023 12:00am Complies with drug therapyStart: 56-82-3257Qdsxw: 57-19-9514Swhrjpjgmyue-Ethinyl Estradiol 0.18/0.215/0.25 mg-35 mcg (28) tablet Active TAB PO September 25, 2023 1 :00am Complies with drug therapyStart: 09-56-4788kdjs 1 tablet by mouth once dailyTri-Sprintec 35 mcg Tab = 1 tab(s), Oral, Daily, Refills(s) 0 Start Date: 05/12/22 Status: Orderedferrous sulfate 325 mg oral tablet (20 sources)Start: 41-74-9513hhho 1 tablet by mouth twice dailyFerrous Sulfate 325 mg (65 mg iron) tablet Active 325 MG PO Twice daily April 02, 2025 7:21amComplies with drug therapyStart: 09-25-2023 End: 36-51-0770Smlbxeg Sulfate 325 mg (65 mg iron) tablet Discontinued MG PO September 25, 2023 12:00am April 02, 2025 7:43amStart: 34-91-2085cxgrhng sulfate 325 mg Tab Refills(s) 0 Start Date: 10/14/19 Status: OrderedStart: 53-77-0250tfji 1 tablet by mouth twice dailyferrous sulfate 325 (65 Fe) MG tablet Indications: Other iron deficiency anemia TAKE 1 TABLET BY MOUTH TWICE A DAY 180 tablet 3 12/30/2024 Activetake 1 tablet by mouth once dailyFerrous Sulfate 325 (65 Fe) MG 1 tablet Orally Once a day ActiveComment on above:Take 1 tablet by mouth twice daily.hydrocortisone 10 mg/ml / neomycin 3.5 mg/ml / polymyxin b 87128 unt/ml otic suspension (1 source)Aminoglycoside Antibacterial, Polymyxin-class Antibacterial, CorticosteroidStart: 17-85-0494Tbjzdacd-Polymyxin-HC 3.5-20717-6 3 drops left ear Three times a day for 7 days Jul, Activeiv contrast (will be provided with radiology test) (7 sources)Start: 07-26-2024 End: 33-72-2338xgcbbh 1 dose intravenously onceiv contrast (will be provided with radiology test) [...] administration guidelines link 1 Each 07/26/2024 07/27/2024 ActiveStart: 04-24-2024 End: 44-47-6063mu contrast (will be provided with radiology test) [...] administration guidelines link. 1 Each 04/24/2024 04/25/2024 ActiveStart: 04-24-2024 End: 13-05-7898djeyfr 1 dose intravenously onceiv contrast (will be provided with radiology test) [...] administration guidelines link. 1 Each 04/24/2024 04/25/2024 ActiveStart: 09-02-2022 End: 76-11-6799yadled 1 dose intravenously onceiv contrast (will be provided with radiology test) Indications: Multiple sclerosis (HCC) , Encounter for long- term (current) use of medications MRI Brain Inject, intravenously, once for 1 dose.No IV access, insert saline lock prior to beginning of sedation, infusion, injection of imaging exam.Discontinue saline lock post exam. If Pt. has a central line or IVAD, may access for administration according to line specific nursing protocol.Once exam is complete flush line and de-access according to li ne specific nursing protocol in the MR contrast administration guidelines link 1 Each 0 09/02/2022 09/03/2022 ActiveStart: 09-02-2022 End: 77-07-2622mx contrast (will be provided with radiology test) Indications: Multiple sclerosis (HCC) , Encounter for long-term (current) use of medications MRI CSP Inject, intravenously, once for 1 dose. No IV access, insert saline lock prior to the beginning of sedation, infusion, injection of imaging exam. Di scontinue saline lock post exam. If Pt. has a central line or IVAD, may access for administration according to line specific nursing protocol. Once exam is complete flush line and de-access accordingto line specific nursing protocol in the MR contrast administration guidelines link. 1 Each 0 09/02/2022 09/03/2022 ActiveComment on above:MRI Brain Inject, intravenously, once for 1 dose.No IV access, insert saline lock prior to beginning of sedation, infusion, injection of imaging exam.Discontinue saline lock post exam. If Pt. has a central line or IVAD, may access for administration according to line specific nursing protocol.Once exam is complete flush line and de-access according to line specific nursing protocol in the MR contrast administration guidelines linkMRI CSP Inject, intravenously, once for 1 dose. No IV access, insert saline lock prior to the beginning of sedation, infusion, injection of imaging exam. Discontinue saline lock post exam. If Pt. hasa central line or IVAD, may access for administration according to line specific nursing protocol. Once exam is complete flush line and de-access according to line specific nursing protocol in the [facility] administration guidelines link.levothyroxine sodium 0.075 mg oral tablet (20 sources)l-ThyroxineStart: 09-25-2023 End: 14-95-1223Niaiuohttwlfo 75 mcg tablet Active MCG PO September 25, 2023 12:00am Complies with drug therapyStart: 44-93-9161Cexpjwlvztlmp Active MCG PO September 25, 2023 1:00amStart: 99-01-9990thuehnenceowm 75 mcg (0.075 mg) Tab Refills(s) 0 Start Date: 10/14/19 Status: OrderedLevothyroxine Sodium 75 MCG Orally daily Not-TakingComment on above:Take 75 mcg by mouth daily before breakfast.meloxicam 15 mg oral tablet (1 source)Nonsteroidal Anti-inflammatory DrugStart: 06-42-4265tlxy 1 tablet by mouth once dailyMeloxicam 15 mg tablet Active 15 MG PO Daily June 02, 2025 12:00am Complies with drug yarkpvl31 hr metFORMIN hydrochloride 500 mg extended release oral tablet (20 sources)BiguanideStart: 74-30-3897mhxj 1 tablet by mouth twice daily Metformin 500 mg tablet extended release 24 hr Active 500 MG PO Twice daily April 01, 2025 11:00pm Complies with drug therapyStart: 03-18-2024 End: 54-86-9559vrep 1 tablet by mouth every twenty-four hours in the morning metFORMIN XR (Glucophage-XR) 500 MG 24 hr tablet Indications: PCOS (polycystic ovarian syndrome) Take 1 tablet (500 mg) by mouth in the morning and 1 tablet (500 mg) before bedtime. Do not crush, chew, or split.. 60 tablet 11 06/10/2024 ActiveNorgestimate-Ethinyl Estradiol (2 sources)Start: 69-61-3883Guyotybxzqok-Ethinyl Estradiol Active TAB PO September 25, 2023 1:00amNORGESTIMATE-ETHINYL ESTRADIOL (TRI-PREVIFEM, 28, ORAL) (20 sources)NORGESTIMATE-ETHINYL ESTRADIOL (TRI-PREVIFEM, 28, ORAL) Indications: Numbness in both hands , Scoliosis , Numbness in both legs Take by mouth. ActiveNORGESTIMATE-ETHINYL ESTRADIOL (TRI-PREVIFEM, 28, ORAL) Indications: Numbness in both hands , Scoliosis , Numbness in both legs Take by mouth. 0 ActiveComment on above:Take by mouth.10 ml ocrelizumab 30 mg/ml injection (20 sources)Start: 51-38-2511Ugftdnm 300 mg/10 mL intravenous solution IV, q6mo, Refills(s) 0 Start Date: 10/14/19 Status: Orderedocrelizumab (Ocrevus) 300 MG/10ML solution Infuse into a venous catheter yearly Yearly for MS Active Ocrevus (4 sources)Ocrevus ActiveOXcarbazepine 150 mg oral tablet (1 source)Anti-epileptic AgentStart: 88-76-6829aemu 1 tablet by mouth twice dailyOxcarbazepine (Trileptal) 150 mg tablet Active 150 MG PO Twice daily 60 3 June 02, 2025 12:00am Complies with drug ibulisj33 hr oxybutynin chloride 10 mg extended release oral tablet (12 sources)Cholinergic Muscarinic AntagonistStart: 83-20-1104fbyz 1 tablet by mouth once dailyoxybutynin ER (DITROPAN XL) 10 mg 24 hr tablet Take 1 tablet by mouth once daily. 30 tablet 5 04/24/2024 Activephentermine hydrochloride 37.5 mg oral tablet (20 sources)Sympathomimetic Amine AnorecticStart: 06-24-2024 End: 82-98-4709yqef 1 tablet by mouth before mealtimephentermine (Adipex-P) 37.5 MG tablet Indications: Encounter for weight management Take 1 tablet (37.5 mg) by mouth in the morning. Take before meals. 30 tablet 09/25/2024 02/25/2025 Discontinuedsulfamethoxazole 800 mg / trimethoprim 160 mg oral tablet (2 sources)Dihydrofolate Reductase Inhibitor Antibacterial, Sulfonamide AntimicrobialStart: 11-09-2021 End: 83-33-8447fumk 1 tablet by mouth twice dailysulfamethoxazole-trimethoprim (BACTRIM DS) 800-160 mg per tablet Take 1 tablet by mouth twice dailyfor 3 days. 6 tablet 0 11/09/2021 11/12/2021 ActiveComment on above:Take 1 tablet by mouth twice daily for 3 days.terbinafine 250 mg oral tablet (1 source)Allylamine AntifungalStart: 91-69-3097dfon 1 tablet by mouth once dailyTerbinafine Hcl 250 mg tablet Active 250 MG PO Daily 14 June 02, 2025 12:00am Complies withdrug therapyTri-Previfem 0.18/0.215/0.25 MG-35 MCG (4 sources)take 1 mg by mouth once dailyTri-Previfem 0.18/0.215/0.25 MG-35 MCG Orally Once a day ActiveVitamin D (4 sources)Vitamin D ActiveVitamin D3 2000 intl units oral Tab (2 sources)Start: 64-17-1269cago 1 tablet by mouth once dailyVitamin D3 2000 intl units oral Tab 50 mcg, Oral, Daily, tab(s), Refills(s) 0 Start Date: 05/12/22 Status: Ordered Completed/Discontinued Medications MedicationDrug Class(es)DatesSig (Normalized)Sig (Original)acetaminophen 500 mg oral tablet (3 sources)Start: 01-13-2025 End: 27-62-4053ztzb 1 dose by mouth once, then take 4000 mg by mouth once daily 1,000 mg, ORAL, ONCE, 1 dose, On Mon01/13/25 at 1030, No more than 4000 mg of acetaminophen should be given per day (FROM ALL SOURCES)Start: 07-15-2024 End: 88-17-2892njok 1 dose by mouth once, then take 4000 mg by mouth once daily 1,000 mg, ORAL, ONCE, 1 dose, On Mon07/15/24 at 1100, No more than 4000 mg of acetaminophen shouldbe given per day (FROM ALL SOURCES)Start: 01-17-2024 End: 47-40-4922ipqcjvbpvwvwb 1,000 mg tab(s) (TYLENOL)[id number] 200 actuat albuterol 0.09 mg/actuat metered dose inhaler (9 sources)beta2-Adrenergic AgonistStart: 09-25-2023 End: 32-61-2038bcfo 1 puff(s) by inhalation four times daily as needed for wheezingAlbuterol Sulfate 90 mcg/actuation HFA aerosol inhaler Discontinued 2 PUFF INHALATION Four times daily as needed for shortness of breath or wheezing 8.5 0 September 25, 2023 12:00am December 19, 2023 12:35pmStart: 32-10-2744dzjv 2 puff(s) by inhalation every four to six hours as neededAlbuterol Sulfate HFA 108 (90 Base) MCG/ACT 2 puffs as needed Inhalation every 4-6 hours for 14 days Oct, Not-TakingStart: 46-69-6469tiic 2 puff(s) by inhalation every four to six hours as neededAlbuterol Sulfate HFA 108 (90 Base) MCG/ACT 2 puffs as needed Inhalation every 4-6 hours for 14 days Oct, Not-Takingtake 1 puff(s) by inhalation every four hours as neededAlbuterol Sulfate HFA 108 (90 Base) MCG/ACT 1 puff as needed Inhalation every 4 hrs Activeamoxicillin 500 mg oral capsule (2 sources)Penicillin-class AntibacterialStart: 47-04-8341vway 1 capsule by mouth every eight hoursAmoxicillin 500 MG 1 capsule Orally three times a day for 10 day(s) November, Not-Bnkuak08 hr amphetamine aspartate 5 mg / amphetamine sulfate 5 mg / dextroamphetamine saccharate 5 mg / dextroamphetamine sulfate 5 mg extended release oral capsule (20 sources)Central Nervous System StimulantStart: 04-02-2025 End: 90-90-3680gqzu 1 capsule by mouth once daily in the morning Dextroamphetamine-Amphetamine 20 mg capsule,extended release 24hr Discontinued 20 MG PO Every morning April 02, 2025 May 08, 2025 1:24pm Multiple sclerosis Multiple sclerosisStart: 02-25-2025 End: 85-88-5762kykw 1 capsule by mouth every twenty-four hours in the morning amphetamine-dextroamphetamine XR (Adderall XR) 20 MG 24 hr capsule Indications: Multiple sclerosis (HCC) Take 1 capsule (20 mg) by mouth in the morning. 30 capsule 02/25/2025 03/27/2025 ActiveStart: 03-18-2024 End: 12-49-5473iorr 1 tablet by mouth in the morningamphetamine- dextroamphetamine (Adderall) 30 MG tablet Indications: Multiple sclerosis (CMS/HCC) Take 1 tablet (30 mg) by mouth in the morning and 1 tablet (30 mg) before bedtime. 60 tablet ActiveStart: 02-13-2024 End: 85-45-5972iewk 2 capsules by mouth every twenty-four hours in the morning amphetamine-dextroamphetamine XR (Adderall XR) 20 MG 24 hr capsule Indications: Multiple sclerosis (CMS/HCC) Take 2 capsules (40 mg) by mouth in the morning. 60 capsule 03/12/2024 03/18/2024 DiscontinuedStart: 09-25-2023 End: 02-59-9734Mbglpvouhdtwopxvg-Amphetamine 20 mg capsule,extended release 24hr Discontinued PO 0 September 242:00am April 02, 2025 7:18amStart: 61-29-4492Dottdcxxlbwsbzmxb-Amphetamine Active PO September 25, 2023 1:00amStart: 71-25-0893Ivgetthu XR 30 mg Cap-ER Refills(s) 0 Start Date: 10/14/19 Status: OrderedStart: 04-11-2019 End: 49-38-6403oovx 1 tablet by mouth twice dailydextroamphetamine-amphetamine (ADDERALL) 20 mg tablet Indications: Chronic fatigue syndrome Take 1 tablet by mouth two times a day for 30 days. 04/24/2024 ActiveComment on above:Take 30 mg by mouth once daily.Take by mouth.azithromycin 250 mg oral tablet (6 sources)Macrolide AntimicrobialStart: 12-19-2023 End: 93-09-0241Qgzwdizwboiq 250 mg tablet Discontinued 0 PO .COMPLEX 6 0 December 18, 2023 11:00pm April 02, 2025 7:17am For 250 mg dose pack: take 500 mg today (day 1), then 250 mg for 4 days (days 2-5) POStart: 12-19-2023 Azithromycin Active 0 PO .COMPLEX 6 December 19, 2023 12:00am For 250 mg dose pack: take 500 mg today (day 1), then 250 mg for 4 days (days 2-5) POStart: 35-68-6986Rwzuhtirwpxu 250 MG 2 tablet on the first day, then 1 tablet daily for 4 days Orally Once a day for5 day(s) Mar, Activebenzonatate 200 mg oral capsule (5 sources)Non-narcotic AntitussiveStart: 09-25-2023 End: 84-69-3577Ocznsozkmxv 200 mg capsule Discontinued 200 MG PO 2-3 TIMES PER DAY as needed for cough 30 0 September 25, 2023 12:00am December 19, 2023 12:35pm cefdinir 300 mg oral capsule (5 sources)Cephalosporin AntibacterialStart: 09-25-2023 End: 91-57-1007Wviisrkf 300 mg capsule Discontinued MG PO September 25, 2023 12:00am December 19, 2023 12:35pmStart: 09-25-2023 End: 11-97-7965Wszrikxv Discontinued MG PO September 25, 2023 1:00am December 19, 2023 1:35pmdextromethorphan hydrobromide 1.5 mg/ml / pyrilamine maleate 1.5 mg/ml oral solution (3 sources)Uncompetitive J-ucmfnq-C-aspartate Receptor Antagonist, Sigma-1 AgonistStart: 21-67-8674pggg 10 mL by mouth every eight hoursCapron DM 7.5-7.5 MG/5ML 10 mL Orally every 8 hours for 5 days Oct, Not-Taking diphenhydrAMINE hydrochloride 25 mg oral capsule (3 sources)Histamine-1 Receptor AntagonistStart: 01-13-2025 End: 54-21-7070yqpc 1 dose by mouth once50 mg, ORAL, ONCE, 1 dose, On Mon01/13/25 at 1030Start: 07-15-2024 End: 53-55-0822xsvf 1 dose by mouth once50 mg, ORAL, ONCE, 1 dose, On Mon07/15/24 at 1100Start: 01-17-2024 End: 41-13-9315nfgeobiageBHGBB 50 mg capsule (BENADRYL)gabapentin 100 mg oral capsule (5 sources)Anti-epileptic AgentStart: 12-29-2023 End: 02-55-7698suda 1 capsule by mouth twice dailygabapentin (NEURONTIN) 100 mg capsule Indications: Radiculopathy, lumbar region , Spinal stenosis, lumbar region, without neurogenic claudication , Lumbar spondylosis Take 1 capsule by mouth two times a day for 90 days. 60 capsule 2 12/29/2023 04/24/2024 DiscontinuedKetorolac (8 sources)Nonsteroidal Anti-inflammatory Drug, Cyclooxygenase InhibitorStart: 59-25-6192Tpsjecj per 15 mg Dec, 30 mgStart: 80-60-4360Erfkjee per 15 mg Aug, 60 mgmethylPREDNISolone 125 mg injection (7 sources)CorticosteroidStart: 01-13-2025 End: 79-65-4211970 mg, INTRAVENOUS, ONCE, 1 dose, On Mon01/13/25 at 1030Start: 07-15-2024 End: 43-79-3676614 mg, INTRAVENOUS, ONCE, 1 dose, On 07/15/24 at 1100Start: 01-17-2024 End: 58-46-0155rovbraBLEFJGKnvhks sod succinate(PF) 100 mg injection (SOLU-Medrol)Start: 08-23-2023 End: 72-18-0572vmefgmXDCQIUOqemwg (MEDROL, SALMA,) 4 mg Dose-Pack Take as directed 21 tablet 0 08/23/2023 08/29/2023ctiveStart: 79-40-3290tvdgipJWRJVAEijqwd 4 MG as directed Orally for daily dose take half with breakfast, half with dinner for 6 days Oct, Not-TakingComment on above:Take as directednabumetone 500 mg oral tablet (5 sources)Nonsteroidal Anti-inflammatory DrugStart: 12-29-2023 End: 60-46-8003twre 1 tablet by mouth twice daily as needednabumetone (RELAFEN) 500 mg tablet Indications: Radiculopathy, lumbar region , Spinal stenosis, lumb ar region, without neurogenic claudication , Lumbar spondylosis Take 1 tablet by mouth two times a day as needed. 40 tablet 12/29/2023 04/24/2024 Discontinued ocrelizumab 600 mg in NaCl 0.9% 500 mL (OCREVUS) (3 sources)Start: 01-13-2025 End: 88-83-8200610 mg, INTRAVENOUS, ONCE, 1 dose, On Mon01/13/25 at 1030, Subsequent infusion. Subsequent infusion. Start infusion at 100 mL/hour for 15 minutes, then increase to 200 mL/hour for 15 minutes, then increase to 250 mL/hour for 30 minutes, then increase to 300 mL/hour for remainder of infusion. Maximum rate = 300mL/hour. APPROXIMATE TOTAL VOLUME: 560 mL EXP: 01/14/2025 1035 RT Administer with 0.2 micron filter. Refrigerate - EXP: (24 HR) Start: 07-15-2024 End: 40-00-0937693 mg, INTRAVENOUS, ONCE, 1 dose, On 07/15/24 [...] - EXP: (24 HR) Start: 01-17-2024 End: 42-74-5882evbkrugftso 600 mg in NaCl 0.9% 500 mL (OCREVUS)predniSONE 20 mg oral tablet (6 sources)Start: 09-25-2023 End: 02-32-5588llzs 2 tablets by mouth once dailyPrednisone 20 mg tablet Discontinued 40 MG PO Daily 10 5 September 25, 2023 12:00am December 19, 2023 12 :35pmStart: 09-25-2023 End: 85-69-7692xmed 40 mg by mouth once dailyPrednisone Discontinued 40 MG PO Daily 10 September 25, 2023 1:00am December 19, 2023 1:35pmStart: 51-16-2173wrap 1 tablet by mouth every twelve hourspredniSONE 20 MG 1 tablet Orally bid for 5 days Mar, Activetriamcinolone acetonide 40 mg/ml injectable suspension (5 sources)CorticosteroidStart: 08-71-4516Jxwdctd-40 Mar, 40 mgStart: 12-24-9931Rkdhfdv -40 mg Dec, 40 mg24 hr venlafaxine 150 mg extended release oral capsule (20 sources)Serotonin and Norepinephrine Reuptake InhibitorStart: 04-02-2025 End: 13-67-0068fdlm 1 capsule by mouth once dailyVenlafaxine 150 mg capsule,extended release 24hr Discontinued 150 MG PO Daily 30 0 April 03, 2025 6:23am May 05, 2025 2:15pmStart: 04-02-2025 End: 87-25-6682oxso 1 capsule by mouth once dailyVenlafaxine (Effexor Xr) 75 mg capsule,extended release 24hr Discontinued 75 MG PO Daily 30 3 April 01, 2025 11:00pm June 02, 2025 11:04amStart: 83-38-6201deqs 1 capsule by mouth once dailyvenlafaxine XR (Effexor XR) 150 MG 24 hr capsule Indications: Bipolar 1 disorder, depressed, mild (HCC) TAKE 1 CAPSULE BY MOUTH EVERY DAY 90 capsule 1 10/03/2024 ActiveStart: 94-49-1246kkhf 1 capsule by mouth once daily venlafaxine XR (Effexor XR) 150 MG 24 hr capsule Indications: Bipolar 1 disorder, depressed, mild (CMS/HCC) TAKE 1 CAPSULE BY MOUTH EVERY DAY 90 capsule 1 04/03/2024 ActiveStart: 61-29-0953gdht 1 capsule by mouth once daily venlafaxine XR (Effexor XR) 150 MG 24 hr capsule Indications: Bipolar 1 disorder, depressed, mild (CMS/HCC) TAKE 1 CAPSULE BY MOUTH EVERY DAY 30 capsule 3 01/01/2024 ActiveStart: 09-25-2023 End: 24-94-0328dnrc 1 capsule by mouth every twenty-four hoursVenlafaxine 150 mg capsule,extended release 24hr Discontinued MG PO September 25, 2023 12:00am April 02, 2025 10:52amStart: 27-54-9751Dlpiiprzkur Active MG PO September 25, 2023 1:00amStart: 05-63-2780aoil 1 capsule by mouth every hourvenlafaxine ER (EFFEXOR XR) 150 mg 24 hr capsule Take 1 capsule by mouth every afternoon. 07/30/2023 ActiveStart: 31-60-1121xcgylyofkim 150 mg Cap-ER Refills(s) 0 Start Date: 10/14/19 Status: OrderedEffexor ActiveComment on above:Take 1 capsule by mouth every afternoon. Problems Active Problems Problem ClassificationProblemDateDocumented DateEpisodic/ChronicAbdominal pain (7 sources)Right lower quadrant pain; Translations: [Right lower quadrant pain] Onset: 41-48-1115XzknreljTqaob bronchitis (1 source)Acute bronchitis due to other specified organismsEpisodicAnxiety disorders (20 sources)Generalized anxiety disorder; Translations: [Generalized anxiety disorder]Onset: 885208-34-1515RlzocpuQwkmgdv obstructive pulmonary disease and bronchiectasis (8 sources)Bronchitis, not specified as acute or chronic; Translations: [Bronchitis, not specified as acute orchronic]EpisodicDeficiency and other anemia (20 sources)Anemia; Translations: [Anemia, unspecified]Onset: 01-13-2015 82-64-2892VijqqxthQxztaqgdjg and other anemia (20 sources)Iron deficiency anemia; Translations: [Iron deficiency anemia, unspecified]Onset: 954074-76-4811AjimjqxwBpqfozaoet and other anemia (1 source)Iron deficiency anemia, unspecified; Translations: [IRON DEFICIENCY ANEMIA UNSPECIFIED]Onset: 88-15-4188NcxetsuyNusncyyzllrntivl hemorrhage (4 sources)Hemorrhage of rectum and anus; Translations: [Hemorrhage of anus and rectum]Onset: 06-38-9234QsszmmszPpwikjmznsedq symptoms and ill-defined conditions (3 sources)Total urinary incontinence; Translations: [Continuous leakage]Onset: 479395-48-2294WfalsqbZophcbwd; including migraine (20 sources)Migraine without aura, not refractory ; Translations: [Migraine without aura, not intractable, without status migrainosus]Onset: 08-16-2015 99-55-5304LvasvdyAvzhlzecjzpme and screening for infectious disease (4 sources)Contact with and (suspected) exposure to other viral communicable diseases; Translations: [Contact with and (suspected) exposure to other viral communicable diseases]EpisodicMalaise and fatigue (1 source)Chronic fatigue syndrome; Translations: [Chronic fatigue syndrome] 94-31-6496FyljhoyBkee disorders (20 sources)Bipolar disorder; Translations: [Mild depressed bipolar I disorder] Onset: 411750-23-0142ObhncolZhjuzwph sclerosis (20 sources)Multiple sclerosis; Translations: [Multiple sclerosis]Onset: 18-66-6211HxzenixTbnhfup (20 sources)Tinea pedis; Translations: [Tinea pedis]Onset: 07-30-2024 Resolved: 640544-16-2306UvtajffoSqeyhcijydg deficiencies (20 sources)Vitamin D deficiency; Translations: [Vitamin D deficiency, unspecified]Onset: 789842-41-0361FlsbdtkAljxt aftercare (1 source)Other mcfp (current) drug therapy; Translations: [OTH MEMORIAL ADVISER CURRENT DRUG THERAPY]Onset: 78-03-2903OgrmjvwnWkhqt aftercare (20 sources)Long-term current use of drug therapy; Translations: [Other manager terminal (current) drug therapy]Onset: 033454-30-8779GhvifsagXhyuy ear and sense organ disorders (2 sources)Hearing loss of left ear; Translations: [Other specified hearing loss, left ear]49-83-0340IsdbrqyXdlsb ear and sense organ disorders (1 source)Impacted cerumen, left earEpisodicOther ear and sense organ disorders (1 source)Unspecified acute noninfective otitis externa, left earEpisodicOther ear and sense organ disorders (2 sources)Impacted cerumen of bilateral ears; Translations: [Impacted cerumen, bilateral]29-48-5640LrkclhygSygxu endocrine disorders (20 sources)Adrenogenital disorder; Translations: [Adrenogenital disorder, unspecified]Onset: 138067-72-8846NcrbcolRnjpy endocrine disorders (20 sources)Precocious puberty; Translations: [Precocious puberty]Onset: 794374-16-2066EygvhhiYjkkn endocrine disorders (20 sources)Polycystic ovary syndrome; Translations: [Polycystic ovarian syndrome]Onset: 517973-04-2208ApcmmcgRccxt endocrine disorders (1 source)Polycystic ovarian syndrome; Translations: [POLYCYSTIC OVARIAN SYNDROME]Onset: 99-16-6291RzturyhYzbkk gastrointestinal disorders (20 sources)Irritable bowel syndrome; Translations: [Irritable bowel syndrome without diarrhea]Onset: 748878-34-3702KvggdqbOvemn gastrointestinal disorders (1 source)Irritable bowel syndrome without diarrhea; Translations: [IRRITABLE BOWEL SYND W/O DIARRHEA]Onset: 74-67-7862SptsoxeRvail gastrointestinal disorders (4 sources)Irritable bowel syndrome with diarrhea; Translations: [Irritable bowel syndrome with diarrhea]22-66-1343MwqarbxBksuw gastrointestinal disorders (2 sources)Alteration in bowel pwwbmlbidfx62-71-9123DfpktmphTgwts gastrointestinal disorders (5 sources)Change in bowel habit; Translations: [CHANGE IN BOWEL HABIT]Onset: 18-57-6018DcmhqpdcAazee gastrointestinal disorders (2 sources)Diarrhea; Translations: [Diarrhea, unspecified]68-52-4133Pahmokpe Other gastrointestinal disorders (2 sources)Diarrhea, unspecified; Translations: [Diarrhea, unspecified type] Onset: 87-73-0555ShgondblEfqnt lower respiratory disease (5 sources)Dyspnea; Translations: [Shortness of breath]30-90-6994EmpcsbstYtjcs nutritional; endocrine; and metabolic disorders (2 sources)Zkinram13-60-1029AxbvaieNnndh nutritional; endocrine; and metabolic disorders (16 sources)Morbid obesity; Translations: [Morbid (severe) obesity due to excess calories]Onset: 703754-42-7678LxednniNcojm nutritional; endocrine; and metabolic disorders (20 sources)Insulin resistance; Translations: [Insulin resistance]Onset: 849957-99-3395BwlmwzpQnhdm nutritional; endocrine; and metabolic disorders (20 sources)Severe obesity; Translations: [Class 3 severe obesity due to excess calories without serious comorbidity with body mass index (BMI) of 40.0 to 44.9 in adult ([facility])]Onset: 546726-49-0094ZwcihlhLvodg nutritional; endocrine; and metabolic disorders (1 source)Weight increased; Translations: [Abnormal weight gain]07-31-2024 EpisodicOther skin disorders (20 sources)Acne vulgaris; Translations: [Acne vulgaris]Onset: 03-28-2023 05-05-9168ZlvjjtwwVdeeyg media and related conditions (2 sources)Chronic left mastoiditis; Translations: [Chronic mastoiditis, left ear]69-23-4736ChikzjxDngduxst codes; unclassified (1 source)Tobacco user; Translations: [Tobacco use]Onset: 91-24-1731Vhvvxmsc Residual codes; unclassified (2 sources)Nicotine-filled electronic cigarette qvjl55-36-7838Xutrieix Spondylosis; intervertebral disc disorders; other back problems (2 sources)Lumbar spondylosis; Translations: [Spondylosis without myelopathy or radiculopathy, lumbar region]18-35-1303UlhqyomXujpicxigze; intervertebral disc disorders; other back problems (20 sources)Backache; Translations: [Dorsalgia, unspecified]Onset: 07-08-2014 99-55-9488RmtpcknxGdhaudlcp-related disorders (1 source)Nicotine dependence, other tobacco product, uncomplicated; Translations: [NICOTINE DEPEND OTH TOB PROD UNCOMP]Onset: 69-63-0454Gfiyoer Thyroid disorders (20 sources)Hypothyroidism; Translations: [Hypothyroidism, unspecified]Onset: 694368-90-6856HedvfnwKbawmrufgnju (1 source)CONTACT W/AND (SUSP) EXPOS COVID-19; Translations: [CONTACT W/AND (SUSP) EXPOS COVID-19]Onset: 28-31-0777Pnjtdwfuhbbd (1 source)Multiple sclerosis, unspecified; Translations: [Multiple sclerosis, unspecified]Onset: 05-22-2025 Past or Other Problems Problem ClassificationProblemDateDocumented DateEpisodic/ChronicAsthma (20 sources)Exercise induced bronchospasm; Translations: [Exercise induced bronchospasm]Onset: 02-08-2012 Resolved: 960090-25-5726KlaxlcoObpuentpmfybk symptoms and ill-defined conditions (20 sources)Proteinuria; Translations: [Proteinuria, unspecified]Onset: 03-28-2023 Resolved: 457323-11-9340TzktpztfSnmqfipm; including migraine (20 sources)Headache; Translations: [Headache]Onset: 01-20-2015 Resolved: 813882-90-2426RfwkpiddPwqld aftercare (20 sources)Patient encounter status; Translations: [Other mcfp (current) drug therapy]Onset: 672429-26-8471WlnbqtleEwinp diseases of bladder and urethra (20 sources)Bladder dysfunction; Translations: [Neuromuscular dysfunction of bladder, unspecified]Onset: 07-08-2014 Resolved: 248911-17-7944NuobgpqShkii female genital disorders (20 sources)History of gynecological disorder; Translations: [Personal history of other diseases of the female genital tract]Onset: EpisodicOther gastrointestinal disorders (20 sources)Altered bowel function; Translations: [Change in bowel habit]Onset: 05-24-2022 Resolved: 49-94-5551IcowpaseRcptg nervous system disorders (20 sources)Demyelinating disease of central nervous system; Translations: [Demyelinating disease of central nervous system, unspecified]Onset: 12-01-2013 Resolved: 171550-82-1752SqvoqnoRgygf nutritional; endocrine; and metabolic disorders (20 sources)Body mass index 30+ - obesity; Translations: [Body mass index (BMI) 38.0-38.9, adult]Onset: 03-28-2023 Resolved: 296640-16-0552FthgxytDtvsg upper respiratory infections (20 sources)Acute pharyngitis, unspecified; Translations: [Acute pansinusitis] Onset: 09-18-2023 Resolved: 52-72-3909FipwjmjeZydyeohp codes; unclassified (20 sources)Memory impairment; Translations: [Other amnesia]Onset: 08-11-2015 Resolved: 190302-49-9537DywnwqkoDeneicltyhng (1 source)Contact with and (suspected) exposure to covid-19 Z20.822Urinary tract infections (20 sources)Recurrent urinary tract infection; Translations: [Urinary tract infection, site not specified]Onset: 08-11-2015 Resolved: 122808-39-3902NpklytgrPexvn infection (1 source)COVID-19 Results Test NameValueInterpretationReference RangeFacilityCampy coli+jejuni BD Max Ordered By: Theo Luna on 05-22-2025. coli+jejuni tuf gene JENNA+probe Ql (Stl) NegativeNegativeOur Lady Of Mercy Hospital - AndersonComment on above:Campylobacter test includes C. jejuni and C. coli.Clostridioides difficile toxin B tcdB gene [Presence] in Stool by JENNA with probe deteOrdered By: Theo Luna on 05-22-2025 C. difficile toxin B tcdB gene JENNA+probe Ql (Stl)NegativeNegativeOur Lady Of Mercy Hospital - AndersonComment on above:Testing performed by RT-PCRClostridium Difficileon 19-29-8415Qcblshbbbns DifficileNegativeNormalNegativeThe [facility] Hoke Physician GroupComment on above:Result Comment: Testing performed by RT-PCR PERFORMED BY: [address] [address] PATHOLOGIST SAMPLE SHOE INSPECTOR AND REWORKER RADHA PORTILLO M.D.Performed By: #### ENT BACT PANEL, CDT #### [place] [address] USASalmonellosis BD MaxOrdered By: Theo Luna on 05-22-2025 Salmonella sp spaO gene JENNA+probe Ql (Stl)NegativeNegAultman Alliance Community HospitalComment on above:Testing performed by RT-PCRShigella Tox 1+2 BD MaxOrdered By: Theo Luna on 05-22-2025E. coli stx1+stx2 genes JENNA+probe Ql (Stl)NegativeNegativeWayne HealthCare Main Campushigellosis BD MaxOrdered By: Theo Luna on 05-09-5266Hjhcmlzc species+EIEC invasion plasmid antigen H ipaH gene JENNA+probe Ql (Stl)NegativeNegAultman Alliance Community Hospital Comment on above:Shigella sp. test includes Shigella species and Enteroinvasive E. coli (EIEC).Stool Bacterial Panelon 86-47-4878KagcbyadtwpykYcmziabsOyxbyb NegativeThe [facility]oke Physician GroupComment on above:Result Comment: Campylobacter test includes C. jejuni and C. coli.Performed By: #### ENT BACT PANEL, CDT #### [facility] [address] [place] [address] USASalmonella SpeciesNegativeNormalNegativeThe [facility] Hoke Physician GroupComment on above:Result Comment: Testing performed by RT-PCR PERFORMED BY: [address] [address] PATHOLOGIST SAMPLE SHOE INSPECTOR AND REWORKER RADHA PORTILLO M.D.Performed By: #### ENT BACT PANEL, CDT #### [facility] [address] [place] [address] USAShiga Toxin (E coli O157+oth)NegativeNormalNegativeThe [facility] Hoke Physician GroupComment on above:Performed By: #### ENT BACT PANEL, CDT #### [facility] [address] [place] [address] USAShigella SpeciesNegativeNormalNegativeThe [facility] Hoke Physician GroupComment on above:Result Comment: Shigella sp. test includes Shigella species and Enteroinvasive E. coli (EIEC).Performed By: #### ENT BACT PANEL, CDT #### [facility] [address] [place] [address] USACT ABD/PEL W IVCONon 72-33-1690ZN ABD/PEL W IVCON* * *Final Report* * * DATE OF EXAM: May 20 2025 3:28PM [facility] - CT ABD/PEL W IVCON / PROCEDURE REASON: multiple diagnoses * * * * Physician Interpretation * * * * EXAMINATION: CT ABDOMEN AND PELVIS WITH IV CONTRAST CLINICAL HISTORY: Diarrhea. TECHNIQUE: CT of the abdomen and pelvis was performed using standard technique, scanning from just above the dome of the diaphragm to the symphysis pubis. MQ: CTAP_3 Contrast: IV: 100 ml of Omnipaque 350 Oral: 450 ml of Omni 350 10-25ml diluted with water CT Radiation dose: Integrated Dose-length product (DLP) for this visit = 1161 mGy*cm. CT Dose Reduction Employed: Automated exposure control(AEC) and iterative recon COMPARISON: None. RESULT: Liver: No mass. Hepatic steatosis. Biliary: No bile duct dilation. Gallbladder is absent. Spleen: No mass. No splenomegaly. Pancreas: No mass or duct dilation. Adrenals: No mass. Kidneys: No mass, calculus or hydronephrosis. GI tract: Small bowel intussusception in the left lower quadrant (301:71). No dilation or wall thickening. Normal appendix. Lymph nodes: No abdominal or pelvic lymphadenopathy. Mesentery/Peritoneum: No ascites or mass. Retroperitoneum: No mass. Vasculature: - Abdominal aorta and iliac arteries: No aneurysm. - Celiac and SMA: Patent without stenosis. - Portal venous system (SMV, splenic vein, portal vein and branches): Patent. - Hepatic veins: Patent. Pelvis: No mass, ascites or fluid collection. Bones/Soft Tissues: Degenerative changes. Lower thorax: Unremarkable. Localizer images: No additional findings. IMPRESSION: Small bowel intussusception in the left lower quadrant, likely transient. No discrete lead point identified. No dilated bowel. Hepatic steatosis. Newspaper Clipper: MYRTLE Transcribe Date/Time: May 20 2025 3:31P Dictated by : GENE OROZCO MD This examination was interpreted and the report reviewed and electronically signed by: GENE OROZCO MD on May 20 2025 3:50PM EST [id number] Iron River HospitalNURSING PROGon [id number] PROG HNO ID: [id number] Author: DOM SCHULTZ RN Service: ? Author Type: Registered Nurse Type: Nursing Progress Note Filed: 05/20/2025 14:32 Note Text: Radiology Service Progress Note DATE OF SERVICE: May 20, 2025 TIME: 2:28 PM PATIENT WEIGHT: 274LBS PATIENT IDENTITY VERIFICATION COMPLETED USING TWO (2) STANDARD IDENTIFIERS: Name and Date of confirmed by patient verbally. FALL SCREENING: Has the patient had 2 falls in the last year or 1 fall with injury or currently using an Ambulatory Assistive Device (Walker, Cane, Wheelchair, Crutches, etc.)? No PATIENT GENDER DATA: Assigned female at . status: : No status: N/A ALLERGIES: Reviewed and unchanged CONTRAST ALLERGY: No EXAM: CT -CONTRAST INDUCED NEPHROPATHY RISK FACTORS: Not applicable CREATININE: Creatinine Date Value Ref Range Status 07/15/2024 0.74 0.58 - 0.96 mg/dL Final 01/17/2024 0.84 0.58 - 0.96 mg/dL Final 07/12/2023 0.71 0.58 - 0.96 mg/dL Final Estimated Glomerular Filtration Rate Date Value Ref Range Status 07/15/2024 115 >=60 mL/min/1.73m? Final Comment: Estimated Glomerular Filtration Rate (eGFR) is calculated using the 2020 CKD-EPI creatinine equation. This equation utilizes serum creatinine, sex, and age as parameters. The creatinine assay has traceable calibration to isotope dilution-mass spectrometry. Refer to KDIGO guidelines for clinical interpretation. In patients with unstable renal function, e.g. those with acute kidney injury, the eGFR may not accurately reflect actual GFR. eGFR- Date Value Ref Range Status 12/04/2020 >60 Final P.O.C.T. RESULTS: N/A May 20, 2025 TREATMENT: N/A and No Hydration needed. IV SITE: Ambulatory: A peripheral IV was started in the Right antecubital site with a Angio cath/Butterfly: 22 gauge. IV SITE APPEARANCE: Clean,Dry and Intact SIGNATURE: Dom Schultz RN PATIENT NAME: Natalie Jaquez DATE: May 20, 2025 TIME: 2:28 [facility] CBC WITH AUTO DIFFon 36-40-4136ASUOESZFJ ABSOLUTE AUTO0.1NOMS HealthcareBasophils/100 WBC (Bld)0.6 %0.2 - 2.0 %NOMS HealthcareEosinophils/100 WBC (Bld)2 %0.9 - 7.0 %NOMS HealthcareErythrocyte distribution width (RBC) [Ratio]12.7 %11.0 - 15.0 %NOMS HealthcareHematocrit (Bld) [Volume fraction]44.9 %36.0 - 48.0 %NOMS HealthcareHemoglobin (Bld) [Mass/Vol]14.6 g/dL12.0 - 16.0 g/dLNOWY HealthcareIMMATURE GRANULOCYTES ABS AUTO 0.03NOMS HealthcareImmature granulocytes/100 WBC (Bld)0.3 %0.0 - 0.5 %NOMS HealthcareLYMPHOCYTES ABSOLUTE AUTO2.6NOMS HealthcareLymphocytes/100 WBC (Bld) 30.4 %20.5 - 60.0 %NOMMercy Mccune-Brooks HospitalMCH (RBC) [Entitic mass]28.9 pg26.7 - 34.0 pg NOMMercy Mccune-Brooks HospitalMCHC (RBC) [Mass/Vol]32.5 g/dL29.9 - 35.2 g/dLNOSelect Specialty HospitalMCV (RBC) [Entitic vol]88.9 fL81.0 - 99.0 fLNOMS HealthcareMONOCYTES ABSOLUTE AUTO 0.5NOMS HealthcareMonocytes/100 WBC (Bld)5.5 %1.7 - 12.0 %[facility] NEUTROPHILS ABSOLUTE AUTO5.3NOMS HealthcareNeutrophils/100 WBC (Bld)61.2 %43.0 - 75.0 %NOMS HealthcarePlatelet mean volume (Bld) [Entitic vol]9.8 fL9.5 - 13.5 fL NOMS HealthcareTBH EO #0.2NOMS HealthcareTBH [id number] HealthcareTB RBC5.05 N[facility] HealthcareSTILLMAN [facility]MARY WBC8.6NOMS HealthcareCLINISYNCNINTEGRIS GROVE [facility] GROVE HealthcareCNPNon 92-70-4507GRYCTkpxemdju (NEMSMN) NATALIE JAQUEZ ([id number]) 1995 F Date Time Provider Department 02/08/25 YOLY MILLER During your visit today, we recorded the following information about you: Sue Valencia 02/08/2025 11:22 AM Signed lvm for pt about scheduling 6 month virtual follow up with Yoly Miller per order workstation. called [phone] Allergies As of Date: 02/08/2025 Noted Allergy Reaction AVONEX (INTERFERON BETA-1A) 01/15/2014 4 - Hives 12 - Shortness of Breath Comments: Pt was seen at ED for bronchospasms, hives and treated. COPAXONE (GLATIRAMER (COPOLYMER 1*04/14/2014 2 - Rash Date Reviewed: 02/08/2025 Reviewed by: Yoly Miller APRN.[employer] - Fully Assessed Reason for Visit: Appointment [186] Cmt: lvm for pt about scheduling 6 month virtual follow up with Yoly Miller per order workstation. called [phone] Prescriptions as of 02/08/2025 - dextroamphetamine-amphetamine (ADDERALL) 20 mg tablet Take 1 tablet by mouth two times a day for 30 days. - oxybutynin ER (DITROPAN XL) 10 mg 24 hr tablet Take 1 tablet by mouth once daily. - venlafaxine ER (EFFEXOR XR) 150 mg [...] before breakfast. Problem List As Of Date 02/08/2025 Noted Resolved ADRENOGENITAL DISORDERS [E25.9] 04/12/2005 SEXUAL [...] (current) use of medica*07/14/2017 Encounter Status:Closed by SUE VALENCIA on 02/08/25NoJ.W. Ruby Memorial HospitalXR FOOT LT MIN 3Von 39-47-2026M[address] [address] XRay Report Signed Patient: NATALIE JAQUEZ MR#: [id number] : 1995 Acct:[id number] Age/Sex: 29 / F ADM Date: 01/31/25 Loc: RAD Attending Dr: Amrik PereiraPLilia Ordering Physician: Amrik Mueller D.P.M. Date of Service: 01/31/25 Procedure(s): XR foot LT min 3V Accession Number(s): [id number] cc: Amrik Mueller D.P.M.; Jayme Schmidt M.D. The [address] [address] Patient Name: NATALIE JAQUEZ MRN: [facility]:[id number] date: 1995 Sex: F Assigned Patient Location: RAD Current Patient Location: RAD Accession/Order Number: [id number] Exam Date: 01/31/2025 14:09 Report Date: 01/31/2025 14:10 At the request of: AMRIK MUELLER DPJohn Procedure: XR foot LT min 3V [...] Short M.D. 01/31/2025 2:10 PM Dictation Location: [place] [address] Electronically authenticated by: [id number] Y Date: 01/31/2025 14:10 Dictated By: Corey Short M.D. Signed By: 01/31/25 1412 DD/ 1410 TD/TT: Newspaper Clipper:TBHRadiology, Radiologist, MD - 01/31/2025 [place] [address] XRay Report Signed Patient: NATALIE JAQUEZ MR#: [id number] : 1995 Acct:[id number] Age/Sex: 29 / F ADM Date: 01/31/25 Loc: RAD Attending Dr: Amrik Mueller D.P.M. Ordering Physician: Amrik Mueller D.P.M. Date of Service: 01/31/25 Procedure(s): XR foot LT min 3V Accession Number(s): [id number] cc: Amrik Mueller D.P.M.; Jayme Schmidt M.D. [place] [address] Patient Name: NATALIE JAQUEZ MRN: [facility]:[id number] date: 1995 Sex: F Assigned Patient Location: RAD Current Patient Location: RAD Accession/Order Number: [id number] Exam Date: 01/31/2025 14:09 Report Date: 01/31/2025 14:10 At the request of: AMRIK MUELLER DPM Procedure: XR foot LT min 3V [...] Short M.D. 01/31/2025 2:10 PM Dictation Location: [place] [address] Electronically authenticated by: [id number] Y Date: 01/31/2025 14:10 Dictated By: Corey Short M.D. Signed By: 01/31/25 1412 DD/ 1410 TD/TT: Newspaper Clipper: NOMS HealthcareRadiology Study observation (narrative)NOMS HealthcareXR FOOT LT MIN 3VOrdered By: Radiologist Radiology on 54-92-0450AGMV Healthcare Work Phone: cbc W Auto Differential panel (Bld)on 01-13-2025 Basophils (Bld) [#/Vol]0.05 10*3/uLNINFCleveland ClinicDifferential cell count method Nom (Bld)AutoCleveland ClinicEosinophils (Bld) [#/Vol]0.16 10*3/uLNINF [facility] HospitalImmature granulocytes (Bld) [#/Vol]0.05 10*3/uLNINFSheltering Arms HospitalImmature granulocytes/100 WBC (Bld)0.5 %[facility] HospitalLymphocytes (Bld) [#/Vol]2.28 10*3/uLHopland ClinicMonocytes (Bld) [#/Vol]0.54 10*3/uLNINF [facility] HospitalNeutrophils (Bld) [#/Vol]6.14 10*3/uLSheltering Arms HospitalNucleated RBC (Bld) [#/Vol]NINFCleveland Mercy HospitalNucleated RBC/100 WBC (Bld) [Ratio]0 %/100 WBCSheltering Arms HospitalPlatelet mean volume (Bld) [Entitic vol]9.9 fL9.0 - 12.7 fL [facility] HospitalPlatelets (Bld) [#/Vol]377 10*3/uLSheltering Arms HospitalWBC (Bld) [#/Vol]9.22 10*3/uLSheltering Arms HospitalBasophils (Bld) [#/Vol]0.05 10*3/uLNormal <0.11CTrumbull Memorial Hospital on above:Order Comment: Specimen Type: BLOOD SPECIMENOrdering Facility: [facility] Address:[address] [place], [place] [address]Performed By: #### 71370-1 ####[facility] LABIA [id number] [place] [address] Basophils/100 WBC (Bld)0.5 %NormalPremier Health Miami Valley Hospital North on above: Order Comment: Specimen Type: BLOOD SPECIMENOrdering Facility: [facility] Address:[address] [place], [place] [address]Performed By: #### 03030- 8 ####[facility] LABCLIA [id number] [place], [place] [address]Fzqztdxebnhq cell count method Nom (Bld)AutoNormal [facility] on above:Order Comment: Specimen Type: BLOOD SPECIMENOrdering Facility: [facility] Address:[address] [place], [place] [address]Performed By: #### 84756-2 ####[facility] LABIA [id number] [place], [place] [address]Hawjqvbmqql (Bld) [#/Vol]0.16 10*3/uLNormal<0.46[facility] on above: Order Comment: Specimen Type: BLOOD SPECIMENOrdering Facility: [facility] Address:[address] [place], [place] [address]Performed By: #### 15552- 8 ####[facility] LABIA [id number] [place], [place] [address]Fjeoympwryv/100 WBC (Bld)1.7 %NormalPremier Health Miami Valley Hospital North on above:Order Comment: Specimen Type: BLOOD SPECIMENOrdering Facility: [facility] Address:[address] [place], [place] [address]Performed By: #### 91298-2 ####[facility] LABIA [id number] [place], [place] [address]Hmvizhpqeyb distribution width (RBC) [Ratio]12.9 %Lvvcrm57.5-15.0[facility] on above: Order Comment: Specimen Type: BLOOD SPECIMENOrdering Facility: [facility] Address:[address] [place], [place] [address]Performed By: #### 07528- 8 ####[facility] LABCLIA [id number] [place], [place] [address]Rqpffvwfvr (Bld) [Volume fraction]41.5 %Giobfm31.0-46.0 [facility] on above:Order Comment: Specimen Type: BLOOD SPECIMENOrdering Facility: [facility] Address:[address] [place], [place] [address]Performed By: #### 96063-8 ####[facility] LABIA [id number] [place], [place] [address]Gieorcmbcv (Bld) [Mass/Vol]13.8 g/eTDxzsmf56.5-15.5CTrumbull Memorial Hospital on above: Order Comment: Specimen Type: BLOOD SPECIMENOrdering Facility: [facility] Address:[address] [place], [place] [address]Performed By: #### 36308- 8 ####[facility] LABCLIA [id number] [place], [place] [address]Pmpzslyk granulocytes (Bld) [#/Vol]0.05 10*3/uLNormal <0.10[facility] on above:Order Comment: Specimen Type: BLOOD SPECIMENOrdering Facility: [facility] Address:[address] [place], [place] [address]Performed By: #### 40306-2 ####[facility] LABIA [id number] [place], [place] [address]Hfckhdrj granulocytes/100 WBC (Bld)0.5 %[facility] on above: Order Comment: Specimen Type: BLOOD SPECIMENOrdering Facility: [facility] Address:[address] [place], [place] [address]Performed By: #### 05240- 8 ####[facility] LABIA [id number] [place], [place] [address]Zkemguiixjs (Bld) [#/Vol]2.28 10*3/uLNormal1.00-4.00 [facility] on above:Order Comment: Specimen Type: BLOOD SPECIMENOrdering Facility: [facility] Address:[address] [place], [place] [address]Performed By: #### 41012-8 ####[facility] LABIA [id number] [place], [place] [address]Vuscaaurfam/100 WBC (Bld)24.7 %NormalPremier Health Miami Valley [facility] on above:Order Comment: Specimen Type: BLOOD SPECIMENOrdering Facility: [facility] Address:[address] [place], [place] [address]Performed By: #### 74807-2 ####[facility] LABCLIA [id number] [place], [place] [address]FQK (RBC) [Entitic mass]28.7 szHpgotv70.0-34.0[facility] on above:Order Comment: Specimen Type: BLOOD SPECIMENOrdering Facility: [facility] Address:[address] [place], [place] [address]Performed By: #### 24866-1 ####[facility] LABCLIA [id number] [place], [place] [address]RNOM (RBC) [Mass/Vol]33.3 g/mOOncdik09.5-36.0[facility] on above: Order Comment: Specimen Type: BLOOD SPECIMENOrdering Facility: [facility] Address:[address] [place], [place] [address]Performed By: #### 36665- 8 ####[facility] LABCLIA [id number] [place], [place] [address]MPI (RBC) [Entitic vol]86.3 hWBicywn21.0-100.0[facility] on above:Order Comment: Specimen Type: BLOOD SPECIMENOrdering Facility: [facility] Address:[address] [place], [place] [address]Performed By: #### 29967-8 ####[facility] LABCLIA [id number] [place], [place] [address]Zbeiekivu (Bld) [#/Vol]0.54 10*3/uLNormal<0.87[facility] on above:Order Comment: Specimen Type: BLOOD SPECIMENOrdering Facility: [facility] Address:[address] [place], [place] [address]Performed By: #### 21156- 8 ####[facility] LABCLIA [id number] [place], [place] [address]Ktxdrdosg/100 WBC (Bld)5.9 %NormalPremier Health Miami [facility] Hospital [facility] on above:Order Comment: Specimen Type: BLOOD SPECIMENOrdering Facility: [facility] Address:[address] [place], [place] [address]Performed By: #### 43655-9 ####[facility] LABCLIA [id number] [place], [place] [address]Apkmqykvzfl (Bld) [#/Vol]6.14 10*3/uLNormal1.45-7.50[facility] on above:Order Comment: Specimen Type: BLOOD SPECIMENOrdering Facility: [facility] Address:[address] [place], [place] [address]Performed By: #### 78173-2 ####[facility] LABIA [id number] [place], [place] [address]Seoueriwxqs/100 WBC (Bld)66.7 %NormalPremier Health Miami Valley Hospital North on above:Order Comment: Specimen Type: BLOOD SPECIMENOrdering Facility: [facility] Address:[address] [place], [place] [address]Performed By: #### 68581-1 ####[facility]ALS[facility] LABCLIA [id number] [place], [place] [address]Uamvjaivu RBC (Bld) [#/Vol] 10*3/uLNormal<0.01[facility] on above:Order Comment: Specimen Type: BLOOD SPECIMENOrdering Facility: [facility] Address:[address] [place], [place] [address]Performed By: #### 75714-6 ####[facility] LABIA [id number] [place], [place] [address]Oajyalghv RBC/100 WBC (Bld) [Ratio]0.0 /100 WBCNormal [facility] on above:Order Comment: Specimen Type: BLOOD SPECIMENOrdering Facility: [facility] Address:[address] [place], [place] [address]Performed By: #### 62905-2 ####[facility] LABCLIA [id number] [place], [place] [address]Eqgnoztu mean volume (Bld) [Entitic vol]9.9 fLNormal9.0-12.7CTrumbull Memorial Hospital on above:Order Comment: Specimen Type: BLOOD SPECIMENOrdering Facility: [facility] Address:[address] [place] [address] Performed By: #### 75383-3 ####[facility] LABCLIA [id number] [place], [place] [address]Wejnlscvy (Bld) [#/Vol]377 10*3/rAEexane445-571MdoucxlmaPremier Health Miami Valley Hospital [facility] on above:Order Comment: Specimen Type: BLOOD SPECIMENOrdering Facility: [facility] Address:[address] [place], [place] [address]Performed By: #### 06708-7 ####[facility] LABCLIA [id number] [place], [place] [address]LXV (Bld) [#/Vol]4.81 10*6/uLNormal3.90-5.20[facility] on above:Order Comment: Specimen Type: BLOOD SPECIMENOrdering Facility: [facility] Address:[address] [place], [place] [address]Performed By: #### 05118-8 ####[facility] LABCLIA [id number] [place], [place] [address]PMU (Bld) [#/Vol]9.22 10*3/uLNormal3.70-11.00[facility] on above: Order Comment: Specimen Type: BLOOD SPECIMENOrdering Facility: [facility] Address:[address] [place], [place] [address]Performed By: #### 44855- 8 ####[facility] LABCLIA [id number] [place], [place] [address]YCT CBC W AUTO DIFF BLDon 70-22-3606MXH BASOPHILS # BLD AUTO0.05NIJohnson County Community Hospital DIFFERENTIAL METHOD BLDAutoNOMNortheast Regional Medical Center EOSINOPHIL # BLD AUTO0.16NIJohnson County Community Hospital LYMPHOCYTES # BLD AUTO2.28NOLafayette Regional Health Center MONOCYTES # BLD AUTO0.54NIJohnson County Community Hospital NEUTROPHILS # BLD AUTO6.14NOLafayette Regional Health Center NRBC # BLD AUTO<0.01NINFTexas County Memorial Hospital NRBC/100 WBC BLD-RTO0/100 WBCTexas County Memorial Hospital PLATELET # BLD UNUO428PZHITexas County Memorial Hospital PMV BLD AUTO9.9 fL9.0 - 12.7 fLTexas County Memorial Hospital WBC # BLD AUTO9.22NOSelect Specialty HospitalIM GRANULOCYTES # BLD AUTO0.05NIDelta Medical Center GRANULOCYTES/LEUK NFR BLD AUTO0.5 %NOM HealthcareSpecimen Type: BLOOD SPECIMEN Ordering Facility: [facility] Address: [address] [place] [address] Original Ordering Provider: YOLY HERNÁNDEZCLaboratory - Hematology and Cell counts 37-33-4880Uhssuared/100 WBC (Bld)0.5 %[facility] Eosinophils/100 WBC (Bld)1.7 %[facility] HealthcareErythrocyte distribution width (RBC) [Ratio]12.9 %11.5 - 15.0 %NOM HealthcareHematocrit (Bld) [Volume fraction]41.5 %36.0 - 46.0 %[facility] HealthcareHemoglobin (Bld) [Mass/Vol]13.8 g/dL 11.5 - 15.5 g/dLNevada Regional Medical CenterLymphocytes/100 WBC (Bld)24.7 %[facility] Medical CenterMCH (RBC) [Entitic mass]28.7 pg26.0 - 34.0 pgNOSelect Specialty HospitalMCHC (RBC) [Mass/Vol] 33.3 g/dL30.5 - 36.0 g/dLNevada Regional Medical CenterMCV (RBC) [Entitic vol]86.3 fL80.0 - 100.0 fLNevada Regional Medical CenterMonocytes/100 WBC (Bld)5.9 %[facility] Neutrophils/100 WBC (Bld)66.7 %[facility] HealthcareRBC (Bld) [#/Vol]4.81 10*6/uL3.90 - 5.20 m/uLNOMS HealthcareNo Panel Informationon 22-54-7102VOKV HealthcareCNCOon 24-20-5100PTSMScqzhz TextNormalCAshtabula County Medical CenterCOon 80-20-8307LAER Letter TextNormalCPomerene HospitalBRAIN & CERVICAL SPINE MRI DISCRETE DATAon 89-06-9316Npwob Enhancing LesionsNoneClevelSCCI Hospital LimaBrain Interval ImprovementNoneCMercy Health St. Vincent Medical CenterBrain New T2 LesionsNone SiteSheltering Arms Hospital Brain Other Significant MRI FindingsNone.[facility] Parenchymal Volume LossNoneCRiverview Health Institute T2 [place] of DiseaseMildHolzer Medical Center – Jackson ClinicRadiology Study observation (narrative)[facility] Brain WO and W contrast Teressa 25-39-7857RCLESEEQGG: Multiple intracranial white matter lesions compatible with multiple sclerosis. No new T2 lesions and no new enhancing lesions. No significant parenchymal volume loss. Other Significant Intracranial Findings: None Newspaper Clipper: MYRTLE Transcribe Date/Time: Oct 22 2024 3:38P Dictated by : MORIAH COLINDRES DO This examination was interpreted and the report reviewed and electronically signed by: MORIAH COLINDRES DO on Oct 22 2024 3:41PM [facility] DIVISION OF RADIOLOGY* * *Final Report* * * DATE OF EXAM: Oct 22 2024 3:33PM [facility] 0295 - MRI BRAIN WO/W IVCON / PROCEDURE REASON: Relapsing remitting multiple sclerosis (HCC) * * * * Physician Interpretation * * * * EXAMINATION: MRI BRAIN WO/W IVCON HISTORY: Multiple sclerosis. Routine follow-up TECHNIQUE: Brain MRI with demyelinating disease protocol with and without IV gadolinium. MQ: MRBMSWOW_2 Contrast: 20 mL Dotarem IV COMPARISON: Brain MRI 11/14/2023 RESULT: MR BRAIN: Parenchymal Findings: There are multiple foci of hyperintensity on FLAIR and T2 within the white matter, compatible with the clinical diagnosis of multiple sclerosis. New T2 Lesions: None Site(s) of New/Larger T2 Lesion(s): Not applicable Interval Improvement: None. New Enhancing Lesions: None T2 [place] of Disease: Mild. Parenchymal Volume Loss: None. Other Significant Findings: None. *Note:? The definition of new T2 Lesions includes both new and enlarging plaques on T2-weighted FLAIR images (new lesions greater than or equal to 5mm3 or an increase in diameter of an existing lesion by greater than or equal to 2mm). DIVISION OF RADIOLOGYProvider, [facility] [place] - 10/22/2024 * * *Final Report* * * DATE OF EXAM: Oct 22 2024 3:33PM [facility] 0295 - MRI BRAIN WO/W IVCON / PROCEDURE REASON: Relapsing remitting multiple sclerosis (HCC) * * * * Physician Interpretation * * * * EXAMINATION: MRI BRAIN WO/W IVCON HISTORY: Multiple sclerosis. Routine follow-up TECHNIQUE: Brain MRI with demyelinating disease protocol with and without IV gadolinium. MQ: MRBMSWOW_2 Contrast: 20 mL Dotarem IV COMPARISON: Brain MRI 11/14/2023 RESULT: MR BRAIN: Parenchymal Findings: There are multiple foci of hyperintensity on FLAIR and T2 within the white matter, compatible with the clinical diagnosis of multiple sclerosis. New T2 Lesions: None Site(s) of New/Larger T2 Lesion(s): Not applicable Interval Improvement: None. New Enhancing Lesions: None T2 [place] of Disease: Mild. Parenchymal Volume Loss: None. Other Significant Findings: None. *Note:? The definition of new T2 Lesions [...] volume loss. Other Significant Intracranial Findings: None Newspaper Clipper: MYRTLE Transcribe Date/Time: Oct 22 2024 3:38P Dictated by : MORIAH COLINDRES DO This examination was interpreted and the report reviewed and electronically signed by: MORIAH COLINDRES DO on Oct 22 2024 3:41PM EST [facility] HospitalRadiology Study observation (narrative)[facility] Brain WO and W contrast IVOrdered By: [facility] Provider on 46-78-7945Nghiymfax ClinicMRI BRAIN WO/W IVCONon 56-44-8629XRC BRAIN WO/W IVCON* * *Final Report* * * DATE OF EXAM: Oct 22 2024 3:33PM [facility] 0295 - MRI BRAIN WO/W IVCON / PROCEDURE REASON: Relapsing remitting multiple sclerosis (HCC) * * * * Physician Interpretation * * * * EXAMINATION: MRI BRAIN WO/W IVCON HISTORY: Multiple sclerosis. Routine follow-up TECHNIQUE: Brain MRI with demyelinating disease protocol with and without IV gadolinium. MQ: MRBMSWOW_2 Contrast: 20 mL Dotarem IV COMPARISON: Brain MRI 11/14/2023 RESULT: MR BRAIN: Parenchymal Findings: There are multiple foci of hyperintensity on FLAIR and T2 within the white matter, compatible with the clinical diagnosis of multiple sclerosis. New T2 Lesions: None Site(s) of New/Larger T2 Lesion(s): Not applicable Interval Improvement: None. New Enhancing Lesions: None T2 [place] of Disease: Mild. Parenchymal Volume Loss: None. Other Significant Findings: None. *Note:? The definition of new T2 Lesions [...] volume loss. Other Significant Intracranial Findings: None Newspaper Clipper: MYRTLE Transcribe Date/Time: Oct 22 2024 3:38P Dictated by : MORIAH COLINDRES DO This examination was interpreted and the report reviewed and electronically signed by: MORIAH COLINDRES DO on Oct 22 2024 3:41PM EST [id number] Medical Center – JacksonXR FOOT LT MIN 3Von 19-47-3090[place]ahSan [place] [address] XRay Report Signed Patient: NATALIE JAQUEZ MR#: [id number] : 1995 Acct:[id number] Age/Sex: 28 / F ADM Date: 09/25/24 Loc: RAD Attending Dr: Amrik Mueller D.P.M. Ordering Physician: Amrik Mueller D.P.M. Date of Service: 09/25/24 Procedure(s): XR foot LT min 3V Accession Number(s): [id number] cc: Amrik Mueller D.P.M.; Jayme Schmidt M.D. [place] [address] Patient Name: NATALIE JAQUEZ MRN: [id number] date: 1995 Sex: F Assigned Patient Location: [facility] Current Patient Location: RAD Accession/Order Number: [id number] Exam Date: 09/25/2024 22:57 Report Date: 09/25/2024 22:58 At the request of: AMRIK MUELLER DPM Procedure: XR foot LT min 3V [...] Mcdonald Jr., D.O.09/25/2024 10:58 PM Dictation Location: [place] [address] Electronically authenticated by: [id number] Y Date: 09/25/2024 22:58 Dictated By: Blake Mcdonald M.D. Signed By: 09/25/242300 DD/ 57 TD/TT: Newspaper Clipper:DAMONHRadiology, Radiologist, - 09/25/2024 [place] [address] XRay Report Signed Patient: NATALIE JAQUEZ MR#: [id number] : 1995 Acct:[id number] Age/Sex: 28 / F ADM Date: 09/25/24 Loc: RAD Attending Dr: Amrik Mueller D.P.M. Ordering Physician: Amrik Mueller D.P.M. Date of Service: 09/25/24 Procedure(s): XR foot LT min 3V Accession Number(s): [id number] cc: Amrik Mueller D.P.M.; Jayme Schmidt M.D. [address] [address] Patient Name: NATALIE JAQUEZ MRN: [id number] date: 1995 Sex: F Assigned Patient Location: [facility] Current Patient Location: [facility] Accession/Order Number: [id number] Exam Date: 09/25/2024 22:57 Report Date: 09/25/2024 22:58 At the request of: AMRIK MUELLER DPJohn Procedure: XR foot LT min 3V [...] COMPLICATION. Impression dictated by: Blake Mcdonald Jr., D.OJessei09/25/2024 10:58 PM Dictation Location: [place] [address] Electronically authenticated by: [id number] Y Date: 09/25/2024 22:58 Dictated By: Blake Mcdonald M.D. Signed By: 09/25/242300 DD/ 57 TD/TT: Newspaper Clipper: ZAY HealthcareRadiology Study observation (narrative)NOMS HealthcareXR FOOT LT MIN 3VOrdered By: Radiologist Radiology on 39-72-4214BCYP Healthcare Work Phone: XR FOOT LT MIN 3Von 24-37-4488[place] [address] XRay Report Signed Patient: NATALIE JAQUEZ MR#: [id number] : 1995 Acct:[id number] Age/Sex: 28 / F ADM Date: 09/10/24 Loc: [place] Attending Dr: Amrik Mueller D.P.M. Ordering Physician: Amrik Mueller D.P.M. Date of Service: 09/10/24 Procedure(s): XR foot LT min 3V Accession Number(s): [id number] cc: Amrik Mueller D.P.M.; Jayme Schmidt M.D. The [place] [id number] Patient Name: NATALIE JAQUEZ MRN: [facility]:[id number] date: 1995 Sex: F Assigned Patient Location: [facility] Current Patient Location: [facility] Accession/Order Number: [id number] Exam Date: 09/11/2024 22:40 Report Date: 09/11/2024 22:40 At the request of: AMRIK MUELLER DPJohn Procedure: XR foot LT min 3V [...] Corey Short M.D.09/11/2024 10:40 PM Dictation Location: [place] [address] Electronically authenticated by: [id number] Y Date: 09/11/2024 22:40 Dictated By: Corey Short M.D. Signed By: 09/11/242242 DD/ 39 TD/TT: Newspaper Clipper:DAMONHRadiology, Radiologist, MD - 09/11/[address] [address] XRay Report Signed Patient: NATALIE JAQUEZ MR#: [id number] : 1995 Acct:[id number] Age/Sex: 28 / F ADM Date: 09/10/24 Loc: RAD Attending Dr: Amrik Mueller D.P.M. Ordering Physician: Amrik Mueller D.P.M. Date of Service: 09/10/24 Procedure(s): XR foot LT min 3V Accession Number(s): [id number] cc: Amrik Mueller D.P.M.; Jayme Schmidt M.D. The [place] [id number] Patient Name: NATALIE JAQUEZ MRN: [id number] date: 1995 Sex: F Assigned Patient Location: RAD Current Patient Location: [facility] Accession/Order Number: [id number] Exam Date: 09/11/2024 22:40 Report Date: 09/11/2024 22:40 At the request of: AMRIK MUELLER DPM Procedure: XR foot LT min 3V [...] Corey Short M.D.09/11/2024 10:40 PM Dictation Location: [place] [address] Electronically authenticated by: [id number] Y Date: 09/11/2024 22:40 Dictated By: Corey Short M.D. Signed By: 09/11/242242 DD/ 39 TD/TT: Newspaper Clipper: ZAY HealthcareRadiology Study observation (narrative)NOMS HealthcareXR FOOT LT MIN 3VOrdered By: Radiologist Radiology on 90-43-4934AZRV Healthcare Work Phone: Fluoroscopy durationon 55-28-2657Kpa [place] [id number] Fluoroscopy Report Signed Patient: NATALIE JAQUEZ MR#: [id number] : 1995 Acct:[id number] Age/Sex: 28 / F ADM Date: 08/19/24 Loc: SURGOUT Attending Dr: Amrik Mueller D.P.M. Ordering Physician: Amrik Mueller D.P.M. Date of Service: 08/19/24 Procedure(s): FL fluoroscopy <1hr NON-READ Accession Number(s): [id number] cc: Amrik Mueller D.P.M.; Jayme Schmidt M.D. [place] [address] Patient Name: NATALIE JAQUEZ MRN: [id number] date: 1995 Sex: F [facility] Patient Location: [facility] Accession/Order Number: [id number] Exam Date: 08/19/2024 12:20 Report Date: 08/26/2024 12:05 At the request of: AMRIK MUELLER Procedure: FL fluoroscopy <1hr NON-READ EXAM: FL fluoroscopy <1hr NON-READ HISTORY: TECHNIQUE: FINDINGS: Please see Operative Report. Electronically authenticated by: ATIYA MUNOZ Date: 08/26/2024 12:05 Dictated By: AraceliRadiologist Signed By: 08/26/24 1208 DD/ 1205 TD/TT: Newspaper Clipper:MARTINadiolAtiya arreguin, - 08/26/2024 [place] [address] Fluoroscopy Report Signed Patient: NATALIE JAQUEZ MR#: [id number] : 1995 Acct:[id number] Age/Sex: 28 / F ADM Date: 08/19/24 Loc: SURGOUT Attending Dr: Amrik Mueller D.P.M. Ordering Physician: Armik Mueller D.P.M. Date of Service: 08/19/24 Procedure(s): FL fluoroscopy <1hr NON-READ Accession Number(s): [id number] cc: Amrik Mueller D.P.M.; Jayme Schmidt M.D. [place] [id number] Patient Name: NATALIE JAQUEZ MRN: [id number] date: 1995 Sex: F Assigned Patient Location: SURGOUT [facility] Accession/Order Number: [id number] Exam Date: 08/19/2024 12:20 Report Date: 08/26/2024 12:05 At the request of: AMRIK MUELLER Procedure: FL fluoroscopy <1hr NON-READ EXAM: FL fluoroscopy <1hr NON-READ HISTORY: TECHNIQUE: FINDINGS: Please see Operative Report. Electronically authenticated by: RADIOLOGIST NO Date: 08/26/2024 12:05 Dictated By: No,Radiologist Signed By: 08/26/24 120 DD/ 1205 TD/TT: Newspaper Clipper: [facility] HealthcareRadiology Study observation (narrative)[facility] HealthcareFluoroscopy durationOrdered By: Radiologist Radiology on [id number] Work Phone: XR FOOT LT MIN 3Von [phone] [address] XRay Report Signed Patient: NATALIE JAQUEZ MR#: [id number] : 1995 Acct:[id number] Age/Sex: 28 / F ADM Date: 08/19/24 Loc: SURGOUT Attending Dr: Amrik Mueller D.P.M. Ordering Physician: Amrik Mueller D.P.M. Date of Service: 08/19/24 Procedure(s): XR foot LT min 3V Accession Number(s): [id number] cc: Amrik Mueller D.P.M.; Jayme Schmidt M.D. [facility] [place] [address] Patient Name: NATALIE JAQUEZ MRN: [facility]:[id number] date: 1995 Sex: F Assigned Patient Location: [facility] Current Patient Location: Accession/Order Number: [id number] Exam Date: 08/19/2024 12:40 Report Date: 08/20/2024 [...] Signed By: 08/20/24 0540 DD/ 0537 TD/TT: Newspaper Clipper:TBHRadiology, Radiologist, - 08/20/2024 [place] [address] XRay Report Signed Patient: NATALIE JAQUEZ MR#: [id number] : 1995 Acct:[id number] Age/Sex: 28 / F ADM Date: 08/19/24 Loc: SURGOUT Attending Dr: Amrik Mueller D.P.M. Ordering Physician: Amrik Mueller D.P.M. Date of Service: 08/19/24 Procedure(s): XR foot LT min 3V Accession Number(s): [id number] cc: Amrik Mueller D.P.M.; Jayme Schmidt M.D. [facility] [place] [address] Patient Name: NATALIE JAQUEZ MRN: [facility]:[id number] date: 1995 Sex: F Assigned Patient Location: [facility] Current Patient Location: Accession/Order Number: [id number] Exam Date: 08/19/2024 12:40 Report Date: 08/20/2024 [...] Williamson M.D. Signed By: 08/20/24 0540 DD/ TD/TT: Newspaper Clipper: ZAY HealthcareRadiology Study observation (narrative)NOMS HealthcareXR FOOT LT MIN 3VOrdered By: Radiologist Radiology on 18-13-4979[facility] Work Phone: aLL CBC WITH AUTO DIFFon 84-24-8870Rerbgbuozsi distribution width (RBC) [Ratio]12.4 %11.0 - 15.0 %[facility] HealthcareHematocrit (Bld) [Volume fraction]42.5 %36.0 - 48.0 %[facility] HealthcareHemoglobin (Bld) [Mass/Vol]13.6 g/dL12.0 - 16.0 g/dLLIFEPOINT HOSPITALS HealthcareInterpretation and review of laboratory resultsAbnormalProgress West Hospital (RBC) [Entitic mass]27.9 pg26.7 - 34.0 pgSaint Francis Medical CenterHC (RBC) [Mass/Vol]32 g/dL29.9 - 35.2 g/dLSaint Francis Medical CenterV (RBC) [Entitic vol]87.3 fL81.0 - 99.0 fLNevada Regional Medical CenterPlatelet mean volume (Bld) [Entitic vol]9.3 fLLow9.5 - 13.5 fLSt. Louis VA Medical Center WFX272 [facility] RBC4.87[facility] WBC4.7[facility] HealthcareCLINISYNCNOMS HealthcareXR DEXA AXIAL SKELETONon 46-98-3609[place]fxSan [place] [address] XRay Report Signed Patient: NATALIE JAQUEZ MR#: [id number] : 1995 Acct:[id number] Age/Sex: 28 / F ADM Date: 08/15/24 Loc: RAD Attending Dr: Jayme Schmidt M.D. Ordering Physician: Jayme Schmidt M.D. Date of Service: 08/15/24 Procedure(s): XR DEXA axial skeleton Accession Number(s): [id number] cc: Jayme Schmidt M.D. [facility] [place] [address] Patient Name: NATALIE JAQUEZ MRN: [facility]:[id number] date: 1995 Sex: F Assigned Patient Location: [facility] Current Patient Location: RAD Accession/Order Number: [id number] Exam Date: 08/15/2024 10:45 Report Date: 08/15/2024 12:46 At the request of: JAYME SCHMIDT Procedure: XR DEXA axial skeleton EXAMINATION: XR [...] or low BMD [12, 13]. Elyse MS, Husasin SL, Jose KL, Alex EM, Radames KG, AJ, Gardenia ES. The clinician's guide to prevention and treatment of osteoporosis. Osteoporos Int. 2021;3310):0117-7078. doi: 10.1007/q50187-989-56645-w. Epub 2021Nov 18. Erratum in: Osteoporos Int. 2021Feb 17;: PMID: 53782966; PMCID: [id number]. Electronically authenticated by: BEATRICE DENNIS Date: 08/15/2024 12:46 Dictated By: Beatrice Dennis M.D. Signed By: 08/15/24 1248 DD/ 1246 TD/TT: Newspaper Clipper:TBHRadiology, Radiologist, - 08/15/2024 [place] [address] XRay Report Signed Patient: NATALIE JAQUEZ MR#: [id number] : 1995 Acct:[id number] Age/Sex: 28 / F ADM Date: 08/15/24 Loc: RAD Attending Dr: Jayme Schmidt M.D. Ordering Physician: Jayme Schmidt M.D. Date of Service: 08/15/24 Procedure(s): XR DEXA axial skeleton Accession Number(s): [id number] cc: Jayme Schmidt M.D. The [address] [address] Patient Name: NATALIE JAQUEZ MRN: [id number]:[id number] date: 1995 Sex: F Assigned Patient Location: [facility] Current Patient Location: [facility] Accession/Order Number: [id number] Exam Date: 08/15/2024 10:45 Report Date: 08/15/2024 12:46 At the request of: JAYME SCHMIDT Procedure: XR DEXA axial skeleton EXAMINATION: XR [...] prevention and treatment of osteoporosis. Osteoporos Int. 2021;33(10):7063-4242. doi: 10.1007/q65487-330-86710-k. Epub 2021Nov 18. Erratum in: Osteoporos Int. 2021Feb 17;: PMID: 91630729; PMCID: [id number]. Electronically authenticated by: BEATRICE DENNIS Date: 08/15/2024 12:46 Dictated By: Beatrice Dennis M.D. Signed By: 08/15/24 1248 DD/ 1246 TD/TT: Newspaper Clipper: [facility] Medical CenterRadiology Study observation (narrative)[facility] Medical CenterXR DEXA AXIAL SKELETONOrdered By: Radiologist Radiology on 65-45-0966BQWVNevada Regional Medical Center Work Phone: all CBC WITH AUTO DIFFon 07-79-4530YRKYYNVET ABSOLUTE AUTO0.0NOMS HealthcareBasophils/100 WBC (Bld)0.5 %0.2 - 2.0 %[facility]OMMer[facility] Eosinophils/100 WBC (Bld)2.9 %0.9 - 7.0 %[facility] HealthcareErythrocyte distribution width (RBC) [Ratio]12.5 %11.0 - 15.0 %NOM HealthcareHematocrit (Bld) [Volume fraction]44.2 %36.0 - 48.0 %[facility] Medical CenterHemoglobin (Bld) [Mass/Vol]14.3 g/dL 12.0 - 16.0 g/dLNevada Regional Medical CenterIMMATURE GRANULOCYTES ABS AUTO0.01NOMS [facility] Immature granulocytes/100 WBC (Bld)0.2 %0.0 - 0.5 %[facility] Medical CenterInterpretation and review of laboratory resultsAbnormalNOSelect Specialty HospitalLYMPHOCYTES ABSOLUTE AUTO2.7NOMS HealthcareLymphocytes/100 WBC (Bld)46.3 %20.5 - 60.0 %[facility] Medical CenterMCH (RBC) [Entitic mass]28.0 pg26.7 - 34.0 pgNOSelect Specialty HospitalMCHC (RBC) [Mass/Vol]32.4 g/dL29.9 - 35.2 g/dLNevada Regional Medical CenterMCV (RBC) [Entitic vol]86.7 fL 81.0 - 99.0 fLNOSelect Specialty HospitalMONOCYTES ABSOLUTE AUTO1.2HighNOMS [facility] Monocytes/100 WBC (Bld)19.8 %High1.7 - 12.0 %NOM HealthcareNEUTROPHILS ABSOLUTE AUTO1.8NOMS HealthcareNeutrophils/100 WBC (Bld)30.3 %Low43.0 - 75.0 %NOMS HealthcarePlatelet mean volume (Bld) [Entitic vol]10.1 fL9.5 - 13.5 fLNOMS HealthcareTBH EO #0.2NOMS HealthcareTBH [id number] HealthcareTBH RBC5.10NOMS HealthcareTBH WBC5.9NOMS HealthcareCLINISYNCNOMS HealthcareXR CHEST 2Von 84-34-2820[place] [address] XRay Report Signed Patient: NATALIE JAQUEZ MR#: [id number] : 1995 Acct:[id number] Age/Sex: 28 / F ADM Date: 08/13/24 Loc: PST Attending Dr: Amrik Mueller D.P.M. Ordering Physician: Amrik Mueller D.P.M. Date of Service: 08/13/24 Procedure(s): XR chest 2V Accession Number(s): [id number] cc: Amrik Mueller D.P.M.; Jayme Schmidt M.D. [place] [address] Patient Name: NATALIE JAQUEZ MRN: [id number] date: 1995 Sex: F Assigned Patient Location: [facility] Current Patient Location: [facility] Accession/Order Number: [id number] Exam Date: 08/13/2024 09:40 Report Date: 08/13/2024 10:30 At the request of: AMRIK MUELLER Procedure: XR chest 2V PROCEDURE: XR chest 2V DATE: 08/13/2024 8:40 AM FRANCHISE DEVELOPMENT MANAGER COMPARISONS: 04/13/2023 CLINICAL INDICATION: 28 years Female Preop exam FINDINGS: The cardiomediastinal silhouette and pulmonary vasculature are within normal limits. The lungs are clear. There is no evidence of pleural effusion or pneumothorax. XR/XR chest 2V IMPRESSION: Chest radiograph is within normal limits. Electronically authenticated by: ZEFERINO NULL Date: 08/13/2024 10:30 Dictated By: Zeferino Null M.D. Signed By: 08/13/24 1032 DD/ 103 TD/TT: Newspaper Clipper:MARTINadiologAtiya johnson, - 08/13/2024 [facility] [place] [id number] XRay Report Signed Patient: NATALIE JAQUEZ MR#: [id number] : 1995 Acct:[id number] Age/Sex: 28 / F ADM Date: 08/13/24 Loc: PST Attending Dr: Amrik Mueller D.P.M. Ordering Physician: Amrik Mueller D.P.M. Date of Service: 08/13/24 Procedure(s): XR chest 2V Accession Number(s): [id number] cc: Amrik Mueller D.P.M.; Jayme Schmidt M.D. The [address] [address] Patient Name: NATALIE JAQUEZ MRN: [facility]:[id number] date: 1995 Sex: F Assigned Patient Location: [facility] Current Patient Location: [facility] Accession/Order Number: [id number] Exam Date: 08/13/2024 09:40 Report Date: 08/13/2024 10:30 At the request of: AMRIK MUELLER Procedure: XR chest 2V PROCEDURE: XR chest 2V DATE: 08/13/2024 8:40 AM FRANCHISE DEVELOPMENT MANAGER COMPARISONS: 04/13/2023 CLINICAL INDICATION: 28 years Female Preop exam FINDINGS: The cardiomediastinal silhouette and pulmonary vasculature are within normal limits. The lungs are clear. There is no evidence of pleural effusion or pneumothorax. XR/XR chest 2V IMPRESSION: Chest radiograph is within normal limits. Electronically authenticated by: ZEFERINO NULL Date: 08/13/2024 10:30 Dictated By: Zeferino Null M.D. Signed By: 08/13/241031 DD/ 103 TD/TT: Newspaper Clipper: ZAY HealthcareRadiology Study observation (narrative)NOMFredi HealthcareXR CHEST 2V Ordered By: Radiologist Radiology on 14-46-7942XLWF [facility] Work Phone: mr Cervical spine WO and W contrast Teressa 07-18-2024* * *Final Report* * * DATE OF EXAM: Jul 18 2024 2:37PM [facility] 0298 - MRI CERVICAL SPINE [...] history of multiple sclerosis. Cord T2 Plaque [place]: Mild New T2 Lesions: None Interval Cord [...] than or equal to 2mm). DIVISION OF RADIOLOGYProvider, [facility] - 07/18/2024 * * *Final Report* * * DATE OF EXAM: Jul 18 2024 2:37PM [facility] 0298 - MRI CERVICAL SPINE [...] history of multiple sclerosis. Cord T2 Plaque [place]: Mild New T2 Lesions: None Interval Cord [...] and assume there are 5 lumbar-type vertebrae. Newspaper Clipper: PSCB Transcribe Date/Time: Jul 18 2024 2:39P Dictated by : SAMMIE PACE MD This examination was interpreted and the report reviewed and electronically signed by: JAYA MARTINEZ MD on Jul 18 2024 3:53PM [facility] Thoracic spine WO and W contrast Teressa 07-18-2024* * *Final Report* * * DATE OF EXAM: Jul 18 2024 2:37PM [facility] 0326 - MRI THORACIC SPINE WO/W [...] history of multiple sclerosis. Cord T2 Plaque [place]: Mild New T2 Lesions: None Interval Cord [...] than or equal to 2mm). DIVISION OF RADIOLOGYProvider, [facility] [place] - 07/18/2024 * * *Final Report* * * DATE OF EXAM: Jul 18 2024 2:37PM [facility] 0326 - MRI THORACIC SPINE WO/W [...] history of multiple sclerosis. Cord T2 Plaque [place]: Mild New T2 Lesions: None Interval Cord [...] and assume there are 5 lumbar-type vertebrae. Newspaper Clipper: PSCB Transcribe Date/Time: Jul 18 2024 2:39P Dictated by : SAMMIE PACE MD This examination was interpreted and the report reviewed and electronically signed by: JAYA MARTINEZ MD on Jul 18 2024 3:53PM [facility]/W IVCONon 07-18-2024* * *Final Report* * * DATE OF EXAM: Jul 18 2024 2:37PM [facility] 0298 - MRI CERVICAL SPINE [...] history of multiple sclerosis. Cord T2 Plaque [place]: Mild New T2 Lesions: None Interval Cord [...] and assume there are 5 lumbar-type vertebrae. Newspaper Clipper: WhipTail Transcribe Date/Time: Jul 18 2024 2:39P Dictated by : SAMMIE PACE MD This examination was interpreted and the report reviewed and electronically signed by: JAYA MARTINEZ MD on Jul 18 2024 3:53PM EST [id number]^AGFA_IDC^SI^ACNCCFRadiology, Radiologist, - 07/18/2024 * * *Final Report* * * DATE OF EXAM: Jul 18 2024 2:37PM [facility] 0298 - MRI CERVICAL SPINE [...] history of multiple sclerosis. Cord T2 Plaque [place]: Mild New T2 Lesions: None Interval Cord [...] and assume there are 5 lumbar-type vertebrae. Newspaper Clipper: PSCB Transcribe Date/Time: Jul 18 2024 2:39P Dictated by : SAMMIE PACE MD This examination was interpreted and the report reviewed and electronically signed by: JAYA MARTINEZ MD on Jul 18 2024 3:53PM EST [id number]^AGFA_IDC^SI^ACN [facility] CERVICAL SPINE WO/W IVCON* * *Final Report* * * DATE OF EXAM: Jul 18 2024 2:37PM [facility] 0298 - MRI CERVICAL SPINE [...] history of multiple sclerosis. Cord T2 Plaque [place]: Mild New T2 Lesions: None Interval Cord [...] and assume there are 5 lumbar-type vertebrae. Newspaper Clipper: PSCB Transcribe Date/Time: Jul 18 2024 2:39P Dictated by : SAMMIE PACE MD This examination was interpreted and the report reviewed and electronically signed by: JAYA MARTINEZ MD on Jul 18 2024 3:53PM EST [id number]_IDCSIACNNormalMiddletown Hospital THORACIC SPINE WO/W IVCONon 07-18-2024* * *Final Report* * * DATE OF EXAM: Jul 18 2024 2:37PM [facility] 0326 - MRI THORACIC SPINE WO/W [...] history of multiple sclerosis. Cord T2 Plaque [place]: Mild New T2 Lesions: None Interval Cord [...] and assume there are 5 lumbar-type vertebrae. Newspaper Clipper: PSCLola Transcribe Date/Time: Jul 18 2024 2:39P Dictated by : SAMMIE PACE MD This examination was interpreted and the report reviewed and electronically signed by: JAYA MARTINEZ MD on Jul 18 2024 3:53PM EST [id number]^AGFA_IDC^SI^ACNCCFRadiology, Radiologist, MD - 07/18/2024 * * *Final Report* * * DATE OF EXAM: Jul 18 2024 2:37PM [facility] 0326 - MRI THORACIC SPINE WO/W [...] history of multiple sclerosis. Cord T2 Plaque [place]: Mild New T2 Lesions: None Interval Cord [...] and assume there are 5 lumbar-type vertebrae. Newspaper Clipper: MYRTLE Transcribe Date/Time: Jul 18 2024 2:39P Dictated by : SAMMIE PACE MD This examination was interpreted and the report reviewed and electronically signed by: JAYA MARTINEZ MD on Jul 18 2024 3:53PM EST [id number]^AGFA_IDC^SI^ACN [facility] THORACIC SPINE WO/W IVCON* * *Final Report* * * DATE OF EXAM: Jul 18 2024 2:37PM [facility] 0326 - MRI THORACIC SPINE WO/W [...] history of multiple sclerosis. Cord T2 Plaque [place]: Mild New T2 Lesions: None Interval Cord [...] and assume there are 5 lumbar-type vertebrae. Newspaper Clipper: MYRTLE Transcribe Date/Time: Jul 18 2024 2:39P Dictated by : SAMMIE PACE MD This examination was interpreted and the report reviewed and electronically signed by: JAYA MARTINEZ MD on Jul 18 2024 3:53PM EST [id number]_IDCSIACNNormalKing's Daughters Medical [facility] [place] Panel Informationon 34-96-7623TIDTHODHIH: Scattered intramedullary lesions compatible with the clinical [...] and assume there are 5 lumbar-type vertebrae. Newspaper Clipper: PSCB Transcribe Date/Time: Jul 18 2024 2:39P Dictated by : SAMMIE PACE MD This examination was interpreted and the report reviewed and electronically signed by: JAYA MARTINEZ MD on Jul 18 2024 3:53PM EST DIVISION OF RADIOLOGYRadiology Study observation (narrative)[facility] Radiology Study observation (narrative)[facility] Medical CenterNo Panel Information Ordered By: Ccf Provider on 67-26-5222Xvaoztdho ClinicCBC W Auto Differential panel (Bld)on 58-05-7981Jkxjjhmrx (Bld) [#/Vol]NINOhioHealth Grove City Methodist HospitalDifferential cell count method Nom (Bld)AutoCleveland ClinicEosinophils (Bld) [#/Vol]NINF [facility] HospitalEosinophils/100 WBC (Bld)0.0 %[facility] HospitalImmature granulocytes (Bld) [#/Vol]NINOhioHealth Grove City Methodist HospitalImmature granulocytes/100 WBC (Bld)0.2 %[facility] HospitalLymphocytes (Bld) [#/Vol]0.57 10*3/uLLowHopland ClinicMonocytes (Bld) [#/Vol]0.10 10*3/uLNINFSheltering Arms HospitalNeutrophils (Bld) [#/Vol]5.10 10*3/uLSheltering Arms HospitalNeutrophils/100 WBC (Bld)88.0 %[facility] HospitalNucleated RBC (Bld) [#/Vol]NINFCleveland Mercy HospitalNucleated RBC/100 WBC (Bld) [Ratio]0.0 %/100 WBCSheltering Arms HospitalPlatelet mean volume (Bld) [Entitic vol]9.0 fL9.0 - 12.[address] Vincent Medical CenterPlatelets (Bld) [#/Vol]363 10*3/uLSheltering Arms HospitalWBC (Bld) [#/Vol]5.80 10*3/[facility] HospitalBasophils (Bld) [#/Vol] 10*3/uLNormal<0.11CTrumbull Memorial Hospital on above:Order Comment: Specimen Type: BLOOD SPECIMENOrdering Facility: [facility] Address:[address] [place], [place] [address]Performed By: #### 97659-6 ####[facility] LABCLIA [id number] [place], [place] [address]Vjvhqwodd/100 WBC (Bld)0.3 %NormalPremier Health Miami [facility] Hospital North on above:Order Comment: Specimen Type: BLOOD SPECIMENOrdering Facility: [facility] Address:[address] [place], [place] [address]Performed By: #### 85099-4 ####[facility] LABCLIA [id number] [place], [place] [address]Xirsuhsgitrj cell count method Nom (Bld)AutoNormalCTrumbull Memorial Hospital on above:Order Comment: Specimen Type: BLOOD SPECIMENOrdering Facility: [facility] Address:[address] [place], [place] [address]Performed By: #### 52229-2 ####[facility] LABCLIA [id number] [place], [place] [address]Janpbyvkgvw (Bld) [#/Vol]10*3/uLNormal<0.46[facility] on above:Order Comment: Specimen Type: BLOOD SPECIMENOrdering Facility: [facility] Address:[address] [place], [place] [address]Performed By: #### 80235-3 ####[facility] LABCLIA [id number] [place], [place] [address]Gsmlfysndlm/100 WBC (Bld)0.0 %NormalPremier Health Miami Valley Hospital North on above:Order Comment: Specimen Type: BLOOD SPECIMENOrdering Facility: [facility] Address:[address] [place], [place] [address]Performed By: #### 00539-2 ####[facility] LABCLIA [id number] [place], [place] [address]Ydqvbjpqsus distribution width (RBC) [Ratio]13.1 %Normal 11.5-15.0[facility] on above:Order Comment: Specimen Type: BLOOD SPECIMENOrdering Facility: [facility] Address:[address] [place], [place] [address]Performed By: #### 91321-9 ####[facility] LABIA [id number] [place] [address] Hematocrit (Bld) [Volume fraction]46.2 %High36.0-46.0[facility] Comment on above:Order Comment: Specimen Type: BLOOD SPECIMENOrdering Facility: [facility] Address:[address] [place] [address] Performed By: #### 90928-6 ####[facility] LABIA [id number] [place], [place] [address]Jrbrtngfbx (Bld) [Mass/Vol]15.3 g/sIKzqlgz38.5-15.5CTrumbull Memorial Hospital on above:Order Comment: Specimen Type: BLOOD SPECIMENOrdering Facility: [facility] Address:[address] [place], [place] [address]Performed By: #### 64862-7 ####[facility] LABIA [id number] [place], [place] [address]Zarvyszs granulocytes (Bld) [#/Vol]10*3/uLNormal<0.10 [facility] on above:Order Comment: Specimen Type: BLOOD SPECIMENOrdering Facility: [facility] Address:[address] [place], [place] [address]Performed By: #### 50231-3 ####[facility] LABCLIA [id number] [place], [place] [address]Lrgvlvdf granulocytes/100 WBC (Bld)0.2 %NormalPremier Health Miami [facility] Hospital North on above: Order Comment: Specimen Type: BLOOD SPECIMENOrdering Facility: [facility] Address:[address] [place], [place] [address]Performed By: #### 08627- 8 ####[facility] LABCLIA [id number] [place], [place] [address]Mmqmeykpgha (Bld) [#/Vol]0.57 10*3/uLLow1.00-4.00 [facility] on above:Order Comment: Specimen Type: BLOOD SPECIMENOrdering Facility: [facility] Address:[address] [place], [place] [address]Performed By: #### 21642-5 ####[facility] LABIA [id number] [place], [place] [address]Uadzrfnkjuw/100 WBC (Bld)9.8 %NormalPremier Health Miami [facility] Hospital [facility] on above:Order Comment: Specimen Type: BLOOD SPECIMENOrdering Facility: [facility] Address:[address] [place], [place] [address]Performed By: #### 82184-8 ####[facility] LABCLIA [id number] [place], [place] [address]WWB (RBC) [Entitic mass]28.4 jfCbrtmw83.0-34.0[facility] on above:Order Comment: Specimen Type: BLOOD SPECIMENOrdering Facility: [facility] Address:[address] [place], [place] [address]Performed By: #### 21886-2 ####[facility] LABCLIA [id number] [place], [place] [address]QHHD (RBC) [Mass/Vol]33.1 g/mOTtujtd40.5-36.0[facility] on above: Order Comment: Specimen Type: BLOOD SPECIMENOrdering Facility: [facility] Address:[address] [place], [place] [address]Performed By: #### 48659- 8 ####[facility]ITALSANTIAG[facility] LABCLIA [id number] [place], [place] [address]EYK (RBC) [Entitic vol]85.9 yOYdpzpd20.0-100.0[facility] on above:Order Comment: Specimen Type: BLOOD SPECIMENOrdering Facility: [facility] Address:[address] [place], [place] [address]Performed By: #### 41843-9 ####[facility] LABIA [id number] [place], [place] [address]Ltthcstnk (Bld) [#/Vol]0.10 10*3/uLNormal<0.87[facility] on above:Order Comment: Specimen Type: BLOOD SPECIMENOrdering Facility: [facility] Address:[address] [place], [place] [address]Performed By: #### 93927- 8 ####[facility] LABCLIA [id number] [place], [place] [address]Petbpamhw/100 WBC (Bld)1.7 %NormalPremier Health Miami [facility] on above:Order Comment: Specimen Type: BLOOD SPECIMENOrdering Facility: [facility] Address:[address] [place], [place] [address]Performed By: #### 10112-0 ####[facility] LABIA [id number] [place], [place] [address]Uivevsypcxw (Bld) [#/Vol]5.10 10*3/uLNormal1.45-7.50[facility] on above:Order Comment: Specimen Type: BLOOD SPECIMENOrdering Facility: [facility] Address:[address] [place], [place] [address]Performed By: #### 09445-5 ####[facility] LABCLIA [id number] [place], [place] [address]Wqojutwikzo/100 WBC (Bld)88.0 %NormalPremier Health Miami [facility] on above:Order Comment: Specimen Type: BLOOD SPECIMENOrdering Facility: [facility] Address:[address] [place], [place] [address]Performed By: #### 19451-2 ####[facility] LABCLIA [id number] [place], [place] [address]Aherrqsnu RBC (Bld) [#/Vol] 10*3/uLNormal<0.01[facility] on above:Order Comment: Specimen Type: BLOOD SPECIMENOrdering Facility: [facility] Address:[address] [place], [place] [address]Performed By: #### 03561-6 ####[facility] LABCLIA [id number] [place], [place] [address]Rwcrihvuj RBC/100 WBC (Bld) [Ratio]0.0 /100 WBCNormal [facility] on above:Order Comment: Specimen Type: BLOOD SPECIMENOrdering Facility: [facility] Address:[address] [place], [place] [address]Performed By: #### 59173-1 ####[facility] LABIA [id number] [place], [place] [address]Azorptor mean volume (Bld) [Entitic vol]9.0 fLNormal9.0-12.7CTrumbull Memorial Hospital on above:Order Comment: Specimen Type: BLOOD SPECIMENOrdering Facility: [facility] Address:[address] [place] [address] Performed By: #### 69340-5 ####[facility] LABIA [id number] [place], [place] [address]Ktwsqwcot (Bld) [#/Vol]363 10*3/cATqcdhl135-905AiacfbvghPremier Health [facility] on above:Order Comment: Specimen Type: BLOOD SPECIMENOrdering Facility: [facility] Address:[address] [place], [place] [address]Performed By: #### [id number] ####[facility] LABCLIA [id number] [place], [place] [address]BXM (Bld) [#/Vol]5.38 10*6/uLHigh3.90-5.20[facility] on above:Order Comment: Specimen Type: BLOOD SPECIMENOrdering Facility: [facility] Address:[address] [place], [place] [address]Performed By: #### 65356-1 ####[facility] LABIA [id number] [place], [place] [address]EMK (Bld) [#/Vol]5.80 10*3/uLNormal3.70-11.00[facility] on above: Order Comment: Specimen Type: BLOOD SPECIMENOrdering Facility: [facility] Address:[address] [place], [place] [address]Performed By: #### 32521- 8 ####[facility] LABIA [id number] [place], [place] [address]ORB CBC W AUTO DIFF BLDon [id number] BASOPHILS # BLD AUTO<0.03NINFTexas County Memorial Hospital DIFFERENTIAL METHOD BLDAutoNOMNortheast Regional Medical Center EOSINOPHIL # BLD AUTO<0.03NINFTexas County Memorial Hospital LYMPHOCYTES # BLD AUTO0.57Low NOMWashington County Memorial HospitalF MONOCYTES # BLD AUTO0.1NINFNOOzarks Medical CenterF NEUTROPHILS # BLD AUTO5.1NOMS HealthcareF NRBC # BLD AUTO<0.01NINFTexas County Memorial Hospital NRBC/100 WBC BLD-RTO0/100 WBCNOLafayette Regional Health Center PLATELET # BLD [id number] Regional Health Center PMV BLD AUTO9 fL9.0 - 12.7 fLNOOzarks Medical CenterF WBC # BLD AUTO5.8 NOMS HealthcareEosinophils/100 WBC (Bld)0 %NOMS HealthcareIMM GRANULOCYTES # BLD AUTO<0.03NINFNOMS HealthcareIMM GRANULOCYTES/LEUK NFR BLD AUTO0.2 %NOMS HealthcareNeutrophils/100 WBC (Bld)88 %NOMS HealthcareSpecimen Type: BLOOD SPECIMEN [facility] Address: [address] [place] [address] Original Ordering Provider: YOLY FITCH ABSOLUTE COUNTon 98-09-3426FR3-CD19+ cells (Bld) [#/Vol]0 cells/gVVir82-688BrbiymdklPremier Health [facility] on above:Order Comment: Specimen Type: BLOOD SPECIMENOrdering Facility: [facility] Address:[address] [place], [place] [address]Performed By: #### [id number] ####[facility] LABCLIA [id number] [place] [address] [place] CD3-CD19+ cells/100 cells (Bld)0 %Low5-22[facility] on above:Order Comment: Specimen Type: BLOOD SPECIMENOrdering Facility: [facility] Address:[address] [place], [place] [address]Performed By: #### ABS19 ####[facility] LABCLIA [id number] [place] [address] [place] OF AMERICALymphocytes/100 WBC FC (Bld) NormalPremier Health [facility] on above:Order Comment: Specimen Type: BLOOD SPECIMENOrdering Facility: [facility] Address:[address] [place], [place] [address]Performed By: #### ABS19 ####[facility] LABIA [id number] [place] [address] [place] AMERICAComprehensive metabolic 2000 panelon 48-44-1472Graxewr [Mass/Vol]4.1 g/dLNormal3.9-4.9CTrumbull Memorial Hospital on above:Order Comment: Specimen Type: BLOOD SPECIMENOrdering Facility: [facility] Address:[address] [place], [place] [address]Performed By: #### 55261- 8 ####[facility] LABCLIA [id number] [place] [address]FEC [Catalytic activity/Vol]95 U/EYqtoqn18-649WcelxetxxPremier Health [facility] on above:Order Comment: Specimen Type: BLOOD SPECIMENOrdering Facility: [facility] Address:[address] [place], [place] [address]Performed By: #### 34878-2 ####[facility] LABCLIA [id number] JAKUB GRIDERABRAZO ARROWHEAD CAMPUSPAIGED[place], [place] [address]KSU [Catalytic activity/Vol]40 U/LHigh7-38[facility] on above:Order Comment: Specimen Type: BLOOD SPECIMENOrdering Facility: [facility] Address:[address] [place], [place] [address]Performed By: #### 96122- 8 ####[facility] LABCLIA [id number] JAKUB ROGERSABRAZO ARROWHEAD CAMPUSPAIGED[place], [place] [address]Nodsq gap [Moles/Vol]8 mmol/LNormal8-15[facility] on above:Order Comment: Specimen Type: BLOOD SPECIMENOrdering Facility: [facility] Address:[address] [place], [place] [address]Performed By: #### 03905-8 ####[facility] LABCLIA [id number] [place], [place] [address]NGL [Catalytic activity/Vol]38 U/SNapn43-46GojjnqdcuPremier Health [facility] on above:Order Comment: Specimen Type: BLOOD SPECIMENOrdering Facility: [facility] Address:[address] [place], [place] [address]Performed By: #### 25527-5 ####[facility] LABCLIA [id number] JAKUB GRIDERABRAZO [place] [address] Bilirubin [Mass/Vol]0.4 mg/dLNormal0.2-1.3CTrumbull Memorial Hospital on above:Order Comment: Specimen Type: BLOOD SPECIMENOrdering Facility: [facility] Address:[address] [place], [place] [address]Performed By: #### 80618-0 ####[facility] LABCLIA [id number] [facility] CENTERVALENTINOABRAZO ARROWHEAD CAMPUSADDIETHORPE, [place] [address]Spwsgib [Mass/Vol]8.7 mg/dLNormal8.5-10.2CTrumbull Memorial Hospital on above:Order Comment: Specimen Type: BLOOD SPECIMENOrdering Facility: [facility] Address:[address] [place], [place] [address]Performed By: #### 82316-5 ####[facility] LABCLIA [id number] [facility] [place] [address]Docwtnyh [Moles/Vol]104 mmol/AXyzrbw40-266GxqvvbjvsPremier Health [facility] on above: Order Comment: Specimen Type: BLOOD SPECIMENOrdering Facility: [facility] Address:[address] [place], [place] [address]Performed By: #### 47294- 8 ####[facility] LABCLIA [id number] [facility] [place] [address]VX1 [Moles/Vol]25 mmol/DVttgra52-67XjrwbpbaqPremier Health [facility] on above:Order Comment: Specimen Type: BLOOD SPECIMENOrdering Facility: [facility] Address:[address] [place], [place] [address]Performed By: #### 10639-4 ####[facility] LABCLIA [id number] [facility] CENTERVALENTINOVOWINCK[place], [place] [address]Mmyvnabgnw [Mass/Vol]0.74 mg/dL Normal0.58-0.96[facility] on above:Order Comment: Specimen Type: BLOOD SPECIMENOrdering Facility: [facility] Address:[address] [place], [place] [address]Performed By: #### 52944-7 ####[facility] LABCLIA [id number] [facility] [place], [place] [address]Qqnhklqgwj and Glomerular filtration rate.predicted panel (S/P/Bld)115 mL/min/1.73m???Normal>=60[facility] on above:Order Comment: Specimen Type: BLOOD SPECIMENOrdering Facility: [facility] Address:[address] [place] [address]Hbvfbt Comment: Estimated Glomerular Filtration Rate (eGFR) is calculated using the 2020 CKD-EPI creatinine equation. This equation utilizes serum creatinine, sex, and age as parameters. The creatinine assay has traceable calibration to isotope dilution- mass spectrometry. Refer to KDIGO guidelines for clinical interpretation. In patients with unstable renal function, e.g. those with acute kidney injury, the eGFR may not accurately reflect actual GFR.Performed By: #### 94824-4 ####[facility] LABCLIA [id number] [place], [place] [address]Twleckf [Mass/Vol]136 mg/dJRpao72-54LfvyjbdpsPremier Health [facility] on above:Order Comment: Specimen Type: BLOOD SPECIMENOrdering Facility: [facility] Address:[address] [place] [address]Edufup Comment: The [place] Diabetes Association (ADA) provides guidance for cutoff values for fasting glucose and random glucose. The ADA defines fasting as no caloric intake for at least 8 hours. Fasting plasma glucose results between 100 to 125 mg/dL indicate increased risk for diabetes (prediab etes). Fasting plasma glucose results greater than or [...] Standards of Medical Care in Diabetes 2016, [place] Diabetes Association. Diabetes Care. 2016.39(Suppl 1).Performed By: #### 18380-9 ####[facility] LABCLIA [id number] [place], [place] [address]Vlzcixree [Moles/Vol]4.0 mmol/LNormal3.7-5.1CTrumbull Memorial Hospital on above:Order Comment: Specimen Type: BLOOD SPECIMENOrdering Facility: [facility] Address:[address] [place], [place] [address]Performed By: #### 24785-7 ####[facility] LABCLIA [id number] [place], [place] [address]Jlqbpoc [Mass/Vol]6.4 g/dLNormal6.3-8.0[facility] on above:Order Comment: Specimen Type: BLOOD SPECIMENOrdering Facility: [facility] Address:[address] [place], [place] [address]Performed By: #### 29826- 8 ####[facility] LABCLIA [id number] [place], [place] [address]Ejiftf [Moles/Vol]137 mmol/DLzysyi517-104UlzpptvafPremier Health [facility] on above:Order Comment: Specimen Type: BLOOD SPECIMENOrdering Facility: [facility] Address:[address] [place], [place] [address]Performed By: #### 03096-6 ####[facility] LABCLIA [id number] [place], [place] [address]Lkki nitrogen [Mass/Vol]13 mg/dLNormal7-21[facility] on above:Order Comment: Specimen Type: BLOOD SPECIMENOrdering Facility: [facility] Address:[address] [place], [place] [address]Performed By: #### 03325-0 ####[facility] LABCLIA [id number] [place], [place] [address]LwY SerPl-mCncon 72-36-6076VmQ [Mass/Vol]511 mg/dLLow 700-1600[facility] on above:Order Comment: Specimen Type: BLOOD SPECIMENOrdering Facility: [facility] Address:[address] [place], [place] [address]Performed By: #### 2465-3 ####[facility] LABCLIA [id number] [place] [id number] [place] AMERICALaboratory - Hematology and Cell countson 07-15-2024 Basophils/100 WBC (Bld)0.3 %[facility] CenterErythrocyte distribution width (RBC) [Ratio]13.1 %11.5 - 15.0 %[facility] Medical CenterHematocrit (Bld) [Volume fraction]46.2 %High36.0 - 46.0 %[facility] CenterHemoglobin (Bld) [Mass/Vol]15.3 g/dL11.5 - 15.5 g/dLNOSelect Specialty HospitalLymphocytes/100 WBC (Bld)9.8 %[facility] Medical CenterMCH (RBC) [Entitic mass]28.4 pg26.0 - 34.0 pgNOSelect Specialty HospitalMCHC (RBC) [Mass/Vol]33.1 g/dL 30.5 - 36.0 g/dLNevada Regional Medical CenterMCV (RBC) [Entitic vol]85.9 fL80.0 - 100.0 fLNevada Regional Medical CenterMonocytes/100 WBC (Bld)1.7 %[facility] HealthcareRBC (Bld) [#/Vol]5.38 10*6/uLHigh3.90 - 5.20 m/uLNOWY HealthcareNo Panel Informationon 07-15-2024 Interpretation and review of laboratory resultsAbnormalMercy hospital springfield HealthcareCNCOon 46-90-3663MOYIBagbyy TextNormalCPomerene HospitalCNPNon 28-92-2627EWXLAnguljzlt (NALDOSMN) NATALIE JAQUEZ ([id number]) 1995 F Date Time Provider Department 04/25/24 [...] Assessed Reason for Visit: Appointment [186] Cmt: [facility] for patient to call so we can get er scheduled fora follow up in jul with dr barclay Prescriptions as of 04/25/2024 - dextroamphetamine-amphetamine (ADDERALL) 20 mg tablet Take 1 tablet [...] medica*07/14/2017 Encounter Status:Closed by MEEK ROMERO on 04/25/24[facility] PELVIS W/ TRANSVAGINALon 42-97-5278X[address] [address] Ultrasound Report Signed Patient: NATALIE JAQUEZ MR#: [id number] : 1995 Acct:[id number] Age/Sex: 28 / F ADM Date: 04/15/24 Loc: [facility] Attending Dr: Zoe Noriega Ordering Physician: Zoe Noriega Date of Service: 04/15/24 Procedure(s): US pelvis w/ transvaginal Accession Number(s): [id number] cc: Zoe Noriega; Jayme Schmidt M.D. The [address] [address] Patient Name: NATALIE JAQUEZ MRN: [id number] date: 1995 Sex: F Assigned Patient Location: [facility] Current Patient Location: Accession/Order Number: [id number] Exam Date: 04/15/2024 09:59 Report Date: 04/16/2024 07:41 At the request of: ZOE NORIEGA Procedure: US pelvis w/ transvaginal EXAMINATION: US [...] polycystic ovarian syndrome. Electronically authenticated by: ESME WILLIAMSON Date: 04/16/2024 07:41 Dictated By: Esme Williamson M.D. Signed By: 04/16/24 0744 DD/ 0741 TD/TT: Newspaper Clipper:TBHRadiology, Radiologist, MD - 04/16/2024 [place] [address] Ultrasound Report Signed Patient: NATALIE JAQUEZ MR#: [id number] : 1995 Acct:[id number] Age/Sex: 28 / F ADM Date: 04/15/24 Loc: [facility] Attending Dr: Zoe Noriega Ordering Physician: Zoe Noriega Date of Service: 04/15/24 Procedure(s): US pelvis w/ transvaginal Accession Number(s): [id number] cc: Zoe Leann; Jayme Schmidt M.D. The [place] [address] Patient Name: NATALIE JAQUEZ MRN: [id number] date: 1995 Sex: F Assigned Patient Location: [facility] Current Patient Location: Accession/Order Number: [id number] Exam Date: 04/15/2024 09:59 Report Date: 04/16/2024 07:41 At the request of: ZOE NORIEGA Procedure: US pelvis w/ transvaginal EXAMINATION: US [...] polycystic ovarian syndrome. Electronically authenticated by: ESME WILLIAMSON Date: 04/16/2024 07:41 Dictated By: Esme Williamson M.D. Signed By: 04/16/2444 DD/ 0 TD/TT: Newspaper Clipper: ZAY HealthcareRadiology Study observation (narrative)[facility] HealthcareUS PELVIS W/ TRANSVAGINALOrdered By: Radiologist Radiology on [id number] Healthcare Work Phone: IGP,APTIMA HPV,AGE GDLNon 28-36-6560DQH GDLN ACOG TESTINGNote.[facility] HealthcareComment on above:TESTS RESULT FLAG UNITS REF RANGE LAB Clinician Provided Cytology Information Source.............Cervix;Endocervix No. of containers..01 ThinPrep Vial Age Jco ACOG Radha... FLAG LEGEND: L-Low Normal,H-High Normal,LL-Alert Low,HH-Alert High <-Panic Low,>-Panic High,A-Abnormal,AA-Critical Abnormal Performed at: 01 =G [address] [address] Radha Young MD, IGP, RFX APTIMA HPV ASCUNote.[facility] CenterComment on above:TESTS RESULT FLAG UNITS REF RANGE LAB DIAGNOSIS: 02 NEGATIVE FOR INTRAEPITHELIAL LESION OR MALIGNANCY. Specimen adequacy: 02 Satisfactory for evaluation. Endocervical and/or squamous metaplastic cells (endocervical component) are present. Performed by: Juan Porter, Journeyman Plumber ([facility]) . 02 Note: Note 03 The [...] <-Panic Low,>-Panic High,A-Abnormal,AA-Critical Abnormal Performed at: [address] [place] [address] Duyen García PhD, [address] [facility] [address] [address] Radha Young MD, Performed at: =G - [address] [id number] Bowling Ball Grader And Marker: Radha Young MD, Phone: [phone] Performed at: [facility] [address] [id number] Bowling Ball Grader And Marker: Duyen García PhD, Phone: [phone] BRUSH-SPATULA CERVIX ENDOCERVIX CLINISYNCNOOzarks Community Hospital W Auto Differential panel (Bld)on 01-17-2024 Basophils (Bld) [#/Vol]0.03 10*3/uLNINFSheltering Arms HospitalBasophils/100 WBC (Bld) 0.3 %[facility] HospitalDifferential cell count method Nom (Bld)AutoCleveland ClinicEosinophils (Bld) [#/Vol]0.14 10*3/uLNINFSheltering Arms HospitalEosinophils/100 WBC (Bld)1.4 %[facility] HospitalErythrocyte distribution width (RBC) [Ratio]12.7 % 11.5 - 15.0 %[facility] HospitalHematocrit (Bld) [Volume fraction]42.7 %36.0 - 46.0 %[facility] HospitalHemoglobin (Bld) [Mass/Vol]13.9 g/dL11.5 - 15.5 g/dLSheltering Arms HospitalImmature granulocytes (Bld) [#/Vol]0.04 10*3/uLNINFSheltering Arms Hospital Immature granulocytes/100 WBC (Bld)0.4 %[facility] HospitalLymphocytes (Bld) [#/Vol]1.66 10*3/uLSheltering Arms HospitalLymphocytes/100 WBC (Bld)17.0 %[facility] Medical CenterH (RBC) [Entitic mass]28.7 pg26.0 - 34.0 pgCTrinity Health System West CampusHC (RBC) [Mass/Vol]32.6 g/dL30.5 - 36.0 g/dLChillicothe VA Medical CenterV (RBC) [Entitic vol]88.0 fL80.0 - 100.0 fLClevelmission hospital ClinicMonocytes (Bld) [#/Vol]0.47 10*3/uLNINF [facility] HospitalMonocytes/100 WBC (Bld)4.8 %[facility] Arms HospitalNeutrophils (Bld) [#/Vol]7.41 10*3/uLSheltering Arms HospitalNeutrophils/100 WBC (Bld)76.1 %[facility] HospitalNucleated RBC (Bld) [#/Vol]NINFCleveland ClinicNucleated RBC/100 WBC (Bld) [Ratio]0.0 %/100 WBCHopland ClinicPlatelet mean volume (Bld) [Entitic vol]9.7 fL9.0 - 12.7 fLCmadison health ClinicPlatelets (Bld) [#/Vol]346 10*3/uLSheltering Arms HospitalRBC (Bld) [#/Vol]4.85 10*6/uL3.90 - 5.20 m/uLSheltering Arms HospitalWBC (Bld) [#/Vol]9.75 10*3/uLCleACMC Healthcare System GlenbeighComprehensive metabolic 2000 panelOrdered By: Josh Haneyy on 54-49-9997Lejsbki [Mass/Vol]3.9 g/dL3.9 - 4.9 g/dLHopland ClinicALP [Catalytic activity/Vol]89 U/L34 - 123 U/LCleveland ClinicALT [Catalytic activity/Vol]23 U/L7 - 38 U/LCleveland ClinicAnion gap [Moles/Vol]5 mmol/LLow8 - 15 mmol/LCleveland ClinicAST [Catalytic activity/Vol] 18 U/L13 - 35 U/LCleveland ClinicBilirubin [Mass/Vol]0.3 mg/dL0.2 - 1.3 mg/dL Hopland ClinicCalcium [Mass/Vol]9.5 mg/dL8.5 - 10.2 mg/dLSheltering Arms Hospital Chloride [Moles/Vol]105 mmol/L98 - 107 mmol/LCleveland ClinicCO2 [Moles/Vol]30 mmol/L22 - 30 mmol/LCleveland ClinicCreatinine [Mass/Vol]0.84 mg/dL0.58 - 0.96 mg/dLSheltering Arms HospitalGFR/1.73 sq M.predicted among non-blacks MDRD (S/P/Bld) [Vol rate/Area]98 mL/min/{1.73_m2}- PINFCleveland Mercy HospitalComment on above: Estimated Glomerular Filtration Rate (eGFR) is calculated using the 2020 CKD-EPI creatinine equation. This equation utilizes serum creatinine, sex, and age as parameters. The creatinine assay has traceable calibration to isotope dilution- mass spectrometry. Refer to KDIGO guidelines for clinical interpretation. In patients with unstable renal function, e.g. those with acute kidney injury, the eGFRmay not accurately reflect actual GFR.Glucose [Mass/Vol]103 mg/bLXfpx77 - 99 mg/dLHocking Valley Community Hospitalment on above:The [place] Diabetes Association (ADA) provides guidance for cutoff values for fasting glucose andrandom glucose. The ADA defines fasting as no caloric intake for at least 8 hours. Fasting plasma gl ucose results between 100 to 125 mg/dL indicate [...] Standards of Medical Care in Diabetes 2016, [place] Diabetes Association. Diabetes Care. 2016.39(Suppl 1). Interpretation and review of laboratory resultsAbnormalClevelmission hospital ClinicPotassium [Moles/Vol]4.5 mmol/L3.7 - 5.1 mmol/LClevelmission hospital ClinicProtein [Mass/Vol]6.3 g/dL 6.3 - 8.0 g/dLHopland ClinicSodium [Moles/Vol]140 mmol/L136 - 144 mmol/L [facility] HospitalUrea nitrogen [Mass/Vol]13 mg/dL7 - 21 mg/dLMercy Health Perrysburg HospitalIMMUNOGLOBULIN Aaron 78-60-3039XkT [Mass/Vol]459 mg/iQYmy146 - 1600 mg/dLSheltering Arms HospitalIgG [Mass/Vol]on 47-77-7516Bcifxbtilaaqvt and review of laboratory resultsAbnoCleveland Clinic [facility] Brain WO and W contrast Teressa 11-14-2023* * *Final Report* * * DATE OF [...] Improvement: None. New Enhancing Lesions: None T2 Irvine of Disease: Mild. Parenchymal Volume Loss: None. [...] signal intensity and morphology. Cord T2 Plaque [place]vine: None New T2 Lesions: None Interval Cord [...] than or equal to 2mm). DIVISION OF RADIOLOGYProvider, [facility] - 11/14/2023 * * *Final Report* * [...] Improvement: None. New Enhancing Lesions: None T2 [place] of Disease: Mild. Parenchymal Volume Loss: None. [...] signal intensity and morphology. Cord T2 Plaque [place]: None New T2 Lesions: None Interval Cord [...] and assume there are 5 lumbar-type vertebrae. Newspaper Clipper: MYRTLE Transcribe Date/Time: Nov 14 2023 2:47P Dictated by : LEAH MURILLO MD This examination was interpreted and the report reviewed and electronically signed by: LEAH MURILLO MD on Nov 14 2023 2:59PM EST Sheltering Arms HospitalMR Lumbar spine WO contraston 11-14-2023* * *Final Report* * * DATE OF [...] Improvement: None. New Enhancing Lesions: None T2 [place] of Disease: Mild. Parenchymal Volume Loss: None. [...] signal intensity and morphology. Cord T2 Plaque [place]vine: None New T2 Lesions: None Interval Cord [...] than or equal to 2mm). DIVISION OF RADIOLOGYProvider, [facility] - 11/14/2023 * * *Final Report* * [...] Improvement: None. New Enhancing Lesions: None T2 Ir[place] of Disease: Mild. Parenchymal Volume Loss: None. [...] signal intensity and morphology. Cord T2 Plaque [place]vine: None New T2 Lesions: None Interval Cord [...] and assume there are 5 lumbar-type vertebrae. Newspaper Clipper: MYRTLE Transcribe Date/Time: Nov 14 2023 2:47P Dictated by : LEAH MURILLO MD This examination was interpreted and the report reviewed and electronically signed by: LEAH MURILLO MD on Nov 14 2023 2:59PM [facility]I BRAIN WO/W IVCONon 11-14-2023* * *Final Report* * * DATE OF EXAM: Nov 14 2023 1:20PM [facility] 0[facility] - MRI BRAIN WO/W IVCON / [...] Improvement: None. New Enhancing Lesions: None T2 [place] of Disease: Mild. Parenchymal Volume Loss: None. [...] signal intensity and morphology. Cord T2 Plaque [place]: None New T2 Lesions: None Interval Cord [...] and assume there are 5 lumbar-type vertebrae. Newspaper Clipper: MYRTLE Transcribe Date/Time: Nov 14 2023 2:47P Dictated by : LEAH MURILLO MD This examination was interpreted and the report reviewed and electronically signed by: LEAH MURILLO MD on Nov 14 2023 2:59PM EST [id number]^AGFA_IDC^SI^ACNCCFRadiology, Radiologist, - 11/14/2023 * * *Final Report* [...] Improvement: None. New Enhancing Lesions: None T2 [place] of Disease: Mild. Parenchymal Volume Loss: None. [...] signal intensity and morphology. Cord T2 Plaque [place]: None New T2 Lesions: None Interval Cord [...] and assume there are 5 lumbar-type vertebrae. Newspaper Clipper: MYRTLE Transcribe Date/Time: Nov 14 2023 2:47P Dictated by : LEAH MURILLO MD This examination was interpreted and the report reviewed and electronically signed by: LEAH MURILLO MD on Nov 14 2023 2:59PM EST [id number]^AGFA_IDC^SI^ACN [facility] LUMBAR SPINE WO IVCONon 11-14-2023* * *Final Report* * * DATE OF EXAM: Nov 14 2023 1:20PM [facility] 0303 - MRI LUMBAR SPINE WO IVCON [...] Improvement: None. New Enhancing Lesions: None T2 [place] of Disease: Mild. Parenchymal Volume Loss: None. [...] signal intensity and morphology. Cord T2 Plaque [place]: None New T2 Lesions: None Interval Cord [...] and assume there are 5 lumbar-type vertebrae. Newspaper Clipper: PSCB Transcribe Date/Time: Nov 14 2023 2:47P Dictated by : LEAH MURILLO MD This examination was interpreted and the report reviewed and electronically signed by: LEAH MURILLO MD on Nov 14 2023 2:59PM EST [id number]^AGFA_IDC^SI^ACNCCFRadiology, Radiologist, - 11/14/2023 * * *Final Report* * * DATE OF EXAM: Nov 14 2023 1:20PM [facility] 0303 - MRI LUMBAR SPINE WO IVCON [...] Improvement: None. New Enhancing Lesions: None T2 Irvine of Disease: Mild. Parenchymal Volume Loss: None. [...] signal intensity and morphology. Cord T2 Plaque [place]vine: None New T2 Lesions: None Interval Cord [...] and assume there are 5 lumbar-type vertebrae. Newspaper Clipper: MYRTLE Transcribe Date/Time: Nov 14 2023 2:47P Dictated by : LEAH MURILLO MD This examination was interpreted and the report reviewed and electronically signed by: LEAH MURILLO MD on Nov 14 2023 2:59PM EST [id number]^AGFA_IDC^SI^ACN [facility] Panel Informationon 02-00-8489ELBCNNVZBU: Multiple intracranial white matter lesions compatible with [...] and assume there are 5 lumbar-type vertebrae. Newspaper Clipper: [facility] HOSPITALLola Transcribe Date/Time: Nov 14 2023 2:47P Dictated by : LEAH MURILLO MD This examination was interpreted and the report reviewed and electronically signed by: LEAH MURILLO MD on Nov 14 2023 2:59PM EST DIVISION OF RADIOLOGYRadiology Study observation (narrative)[facility] Panel InformationOrdered By: Ccf Provider on 81-12-6937Fsizgffhh ClinicAuth for Release of Medical Recordson 37-32-9934Kdxx for Release of Medical Records [id number]#[id number]:127NormalOhiohealth Pickerington Methodist HospitalCOVID + FLU Quick Testingon 06-75-4025GQHK-CoV-2 (COVID-19) RNA JENNA+probe Ql (Unsp spec)PositiveRutland Tutellus Other COVID + FLU Quick TestingNegativeCoderwall Tutellus Other No Panel Informationon 04-66-1727Fbzaf Enhancing LesionsNoneCleveland ClinicBrain Interval ImprovementNoneCleveland ClinicBrain New T2 LesionsNoneCleveland ClinicBrain Other Significant MRI FindingsNone. [facility] HospitalBrain Parenchymal Volume LossNoneCleveland ClinicBrain T2 [place] of DiseaseMildCleveland ClinicCervical spine enhancing lesionsNoneCleveland ClinicCervical Spine New T2 LesionsNoneCleveland ClinicCervical Spine T2 [place] of DiseaseMild to moderateCleSt. Mary's Medical [facility], [facility] Campus ClinicCOVID + FLU Quick Testingon 82-11-6215ROMX-CoV-2 (COVID-19) RNA JENNA+probe Ql (Unsp spec)Negative [place] [employer]ell[employer] Other COVID + FLU Quick TestingNegativeCoderwall Tutellus Other cbc W Auto Differential panel (Bld)on 09-02-2022 Basophils (Bld) [#/Vol]0.04 10*3/uL<0.11 k/uLSheltering Arms HospitalBasophils/100 WBC (Bld)0.4 %[facility] HospitalDifferential cell count method Nom (Bld)AutoCleveland ClinicEosinophils (Bld) [#/Vol]0.08 10*3/uL<0.46 k/uLSheltering Arms Hospital Eosinophils/100 WBC (Bld)0.8 %[facility] HospitalErythrocyte distribution width (RBC) [Ratio]12.7 %11.5 - 15.0 %[facility] HospitalHematocrit (Bld) [Volume fraction]44.9 %36.0 - 46.0 %[facility] HospitalHemoglobin (Bld) [Mass/Vol]14.5 g/dL 11.5 - 15.5 g/dLSheltering Arms HospitalImmature granulocytes (Bld) [#/Vol]0.04 10*3/uL <0.10 k/uLSheltering Arms HospitalImmature granulocytes/100 WBC (Bld)0.4 %[facility] HospitalLymphocytes (Bld) [#/Vol]2.93 10*3/uL1.00 - 4.00 k/uLSheltering Arms Hospital Lymphocytes/100 WBC (Bld)28.9 %[facility] CenterH (RBC) [Entitic mass]28.7 pg 26.0 - 34.0 pgClevelOwatonna HospitalHC (RBC) [Mass/Vol]32.3 g/dL30.5 - 36.0 g/dL [facility] CenterV (RBC) [Entitic vol]88.9 fL80.0 - 100.[address] [facility] Monocytes (Bld) [#/Vol]0.69 10*3/uL<0.87 k/uLSheltering Arms HospitalMonocytes/100 WBC (Bld)6.8 %[facility] HospitalNeutrophils (Bld) [#/Vol]6.35 10*3/uL1.45 - 7.50 k/uL [facility] HospitalNeutrophils/100 WBC (Bld)62.7 %[facility] HospitalNucleated RBC (Bld) [#/Vol]<0.01 k/uLSheltering Arms HospitalNucleated RBC/100 WBC (Bld) [Ratio]0.0 /100 WBCSheltering Arms HospitalPlatelet mean volume (Bld) [Entitic vol]9.3 fL9.0 - 12.[address] Vincent Medical CenterPlatelets (Bld) [#/Vol]418 10*3/oKVaon000 - 400 k/uLSheltering Arms HospitalRBC (Bld) [#/Vol]5.05 10*6/uL3.90 - 5.20 m/uLSheltering Arms HospitalWBC (Bld) [#/Vol]10.13 10*3/uL3.70 - 11.00 k/uLSheltering Arms HospitalComprehensive metabolic 2000 panelon 74-33-2754Vgkywna [Mass/Vol]4.0 g/dL3.9 - 4.9 g/dLSheltering Arms Hospital ALP [Catalytic activity/Vol]81 U/L34 - 123 U/LCleveland ClinicALT [Catalytic activity/Vol]19 U/L7 - 38 U/LCleveland ClinicAnion gap [Moles/Vol]11 mmol/L9 - 18 mmol/LCleveland ClinicAST [Catalytic activity/Vol]18 U/L13 - 35 U/LCleveland Mercy HospitalBilirubin [Mass/Vol]Low0.2 - 1.3 mg/dLSheltering Arms HospitalCalcium [Mass/Vol] 9.6 mg/dL8.5 - 10.2 mg/dLSheltering Arms HospitalChloride [Moles/Vol]101 mmol/L97 - 105 mmol/LCleveland ClinicCO2 [Moles/Vol]27 mmol/L22 - 30 mmol/LCleveland Clinic Creatinine [Mass/Vol]0.74 mg/dL0.58 - 0.96 mg/dLSheltering Arms HospitalEstimated Glomerular Filtration Mmpv731 mL/min/1.73m>=60 mL/min/1.73mCleveland Mercy Hospital Glucose [Mass/Vol]92 mg/dL74 - 99 mg/dLSheltering Arms HospitalPotassium [Moles/Vol]4.3 mmol/L3.7 - 5.1 mmol/LCleveland ClinicProtein [Mass/Vol]6.8 g/dL6.3 - 8.0 g/dL [facility] Hospitalodium [Moles/Vol]139 mmol/L136 - 144 mmol/LCleveland Mercy HospitalUrea nitrogen [Mass/Vol]11 mg/dL7 - 21 mg/dLSheltering Arms HospitalVITAMIN D 25 HYDROXYon [id number]-nsrzlykunndmuf D3 [Mass/Vol]53.5 ng/mL31.0 - 80.0 ng/mLCleveland Mercy HospitalQuick Strepon 07-27-2022S. pyogenes Org specific cx Ql (Throat)Negative [place] Tutellus Other Quick StrepNortAllegheny Valley Hospital [facility] [employer] Other [facility] Surgery Office/Clinic Noteon 76-11-6527Ovbnhds Surgery Office/Clinic NoteChief Complaint post operative follow up HPI Staff [...] BID, # 60 EA, Refills(s) 3, Pharmacy: [facility]acy #[id number], 165,cm, 05/24/22 14:22:00 EDT, Height/Length Dosing, 106, kg, 05/24/22 14:22:00 EDT, Weight Dosing 2. Change in bowel habits (R19.4: Change in bowel habit) see # 1 Ordered: cholestyramine, = 1 packet(s), Oral, BID, # 60 EA, Refills(s) 3, Pharmacy: [facility]/pharmacy #[id number], 165,cm, 05/24/22 14:22:00 EDT, Height/Length Dosing, 106, kg, [...] Smokeless tobacco user within last 30 days, Currentvaping or e-cigarette use Smokeless Tobacco Use:. Vaping, Started age 18.0 Years. Yes, 05/24/2022 Family History COPD: Mother. Crohn's disease: Mother. Diabetes mellitus type 2: Father. Hypertension: Mother. Immunizations Vaccine Date Status Comments SARS-CoV-2 (COVID-19) mRNA BNT-162b2 vax 04/24/2021 Recorded 2022-05-24: TPVAL SARS-CoV-2 (COVID-19) mRNA BNT-162b2 vax 04/01/2021 Recorded 2022-05-24: TPVAL NormalOhiohealth Pickerington Methodist HospitalComment on above:Result Comment: Electronically Signed By: MATTHEW BENÍTEZ, Yusuf Jefferson\Date and Time Signed: 07/05/22 15:06 EST Pathology Noteon 41-76-0309Whrdyzrwp Note [id number]:127NormGeorgetown Behavioral HospitalOutside Colonoscopyon 41-56-2410Ppdykzg Colonoscopy [id number]#1.00CD:127NormGeorgetown Behavioral HospitalPREG HCG QUALon 57-30-4814CMXHTENEV, QUALNegativeNormalNEGATIVEThe Peoples HospitalComment on above:Performed By: #### PREG #### [facility] [address] [place] [address] Dr. Marty Sofia Reportson 78-77-3944Pod Reports [id number]:127NoJ.W. Ruby Memorial HospitalCovid-19 PCR (CVDTB)on 65-13-0251CEZT-CoV-2 (COVID-19) RNA JENNA+probe Ql (Unsp spec)Not detectedNormalNOT DETECTEDThe Peoples HospitalComment on above: Result Comment: When diagnostic testing [...] for this test is supported by the [place] of Health and Human Service's declaration that circumstances exist to justify the emergency use of in vitro diagnostics for the detection and/or diagnosis of the virus that causes COVID-19. This EUA will remain in effect for the duration of the COVID-19 declaration justifying emergency of IVDs, unless it is terminated or revoked by the FDA (after which the test may no longer be used).Performed By: #### CVDTBH #### [facility] [address] [place] [address] Dr. Marty Abdalla for Procedure/Surgeryon 89-09-0714Anfweso for Procedure/[id number]:127NoJ.W. Ruby Memorial HospitalAmbulatory Visit Summaryon 30-03-5290Smnacpxcyg Visit Summary NATALIE JAQUEZ :1995 Visit Date:05/24/2022 Ambulatory Visit Instructions Your Diagnosis Vapes nicotine containing substance Rectal bleeding Change in bowel habits Your Care Team Attending Physician - MATTHEW BENÍTEZ, Yusuf Ryan Primary Care Physician - JULISSA BENÍTEZ, JAYME Referring Physician - JAYME SCHMIDT MD This Is Your Medications List amphetamine-dextroamphetamine (Adderall 20 mg oral tablet) amphetamine-dextroamphetamine (Adderall XR 30 mg Cap-ER) aripiprazole (aripiprazole [...] Medications What How Much When Instructions Unchanged amphetamine-dextroamphetamine (Adderall 20 mg oral tablet) 1 Tablets By Mouth At noon Unchanged amphetamine-dextroamphetamine (Adderall XR 30 mg Cap-ER) Unchanged aripiprazole [...] Vapes nicotine containing substance Vitamin D deficiency [facility] HospitalINSULINon 78-38-0338Drjgvyf53.9 uIU/mLNormal2.6-24.9The Peoples HospitalComment on above:Performed By: #### INSULIN #### [facility] [address] [place] [address] Dr. Marty Burr AUTO DIFFon 64-57-6773VXDJ #0.0 103/ulNormal0.0-0.1The Peoples HospitalComment on above:Performed By: #### CBC #### [facility] [address] [place] [address] Dr. Marty Marcussophils/100 WBC (Bld)0.4 %Normal0.2-2.0The [facility] Comment on above:Performed By: #### CBC #### [facility] [address] [place] [address] Dr. Marty Edwards #0.2 103/ulNormal0.0-0.7The Peoples HospitalComment on above: Performed By: #### CBC #### [facility] [address] [place] [address] Dr. Marty Worthyosinophils/100 WBC (Bld)1.9 %Normal0.9-7.0The [facility] Comment on above:Performed By: #### CBC #### [facility] [address] [place] [address] Dr. Marty Worthyrythrocyte distribution width (RBC) [Ratio]12.3 %Xxkqlh69.0-15.0 The Peoples HospitalComment on above:Performed By: #### CBC #### [facility] [address] [place] [address] Dr. Marty OlsonHematocrit (Bld) [Volume fraction]41.3 %Touapq86.0-48.0The Peoples HospitalComment on above:Performed By: #### CBC #### [facility] [address] [place] [address] Dr. Marty OlsonHemoglobin (Bld) [Mass/Vol]13.4 g/wBPkjebv38.0-16.0The Peoples HospitalComment on above:Performed By: #### CBC #### [facility] [address] [place] [address] Dr. Marty OlsonIG #0.03 10e3/ulNormal0.00-0.03The Peoples HospitalComment on above:Performed By: #### CBC #### [facility] [address] [place] [address] Dr. Marty OlsonIG %0.4 %Normal0.0-0.5The Peoples HospitalComment on above: Performed By: #### CBC #### [facility] [address] [place] [address] Dr. Marty ArroyoMPH #1.7 103/ulNormal1.2-3.8The Peoples HospitalComment on above:Performed By: #### CBC #### [facility] [address] [place] [address] Dr. Marty Arroyomphocytes/100 WBC (Bld)19.4 %Critically low20.5-60.0The Peoples HospitalComment on above:Performed By: #### CBC #### [facility] [address] [place] [address] Dr. Marty Vang DIFF REQNONormalThe Peoples HospitalComment on above: Performed By: #### CBC #### [facility] [address] [place] [address] Dr. Marty De La Cruz (RBC) [Entitic mass]29.4 zyXwnahr29.7-34.0The Peoples HospitalComment on above:Performed By: #### CBC #### [facility] [address] [place] [address] Dr. Marty De La Cruz (RBC) [Mass/Vol]32.4 g/qFEypist20.9-35.2The Peoples HospitalComment on above:Performed By: #### CBC #### [facility] [address] [place] [address] Dr. Marty De La Cruz (RBC) [Entitic vol]90.6 fQUsxfeh18.0-99.0The Peoples HospitalComment on above:Performed By: #### CBC #### [facility] [address] [place] [address] Dr. Marty Farley #0.6 103/ulNormal0.3-0.8The Peoples HospitalComment on above:Performed By: #### CBC #### [facility] [address] [place] [address] Dr. Marty Keyocytes/100 WBC (Bld)6.6 %Normal1.7-12.0[facility] Comment on above:Performed By: #### CBC #### [facility] [address] [place] [address] Dr. Marty Palomino #6.1 103/ulNormal1.4-6.5The Peoples HospitalComment on above:Performed By: #### CBC #### [facility] [address] [place] [address] Dr. Marty Moutrophils/100 WBC (Bld)71.3 %Bhtoqw31.0-75.0The Peoples HospitalComment on above:Performed By: #### CBC #### [facility] [address] [address] [address] Marty Segovialet mean volume (Bld) [Entitic vol]9.2 fLCritically low 9.5-13.5The [facility] Regional Medical Centerment on above:Performed By: #### CBC #### [facility] [address] [address] [address] Marty OlsonPLT365 103/taNexchs888-144Qcq Peoples HospitalComment on above: Performed By: #### CBC #### [facility] [address] [address] [address] Marty OlsonRBC4.56 106/ulNormal4.20-5.40The Peoples HospitalComment on above:Performed By: #### CBC #### [facility] [address] [address] [address] Marty OlsonWBC8.5 103/ulNormal4.0-11.0The Peoples HospitalComment on above: Performed By: #### CBC #### [facility] [address] [address] [address] Marty OlsonFERRITINon 03-82-4852Ikoelnyn [Mass/Vol]79.0 ng/mLNormal6.2-137.0 The Peoples HospitalComment on above:Performed By: #### VITAD, IRON, FERR, FT4 #### [facility] [address] [address] [address] Marty Antonio T3on 55-28-7863MVXQ T32.48 pg/mlLNormal2.18-3.98The [facility] on above:Performed By: #### TSH, LIPID, FT3, BMP, LIVER ####[facility] [address] [address]Dr. Marty MajanoEE T4on 87-77-1745Fyyh T4 [Mass/Vol]1.00 ng/dLNormal0.76-1.46The [facility]oples HospitalComment on above:Performed By: #### VITAD, IRON, FERR, FT4 #### [facility] [address] [address] [address] Marty OlsonGLYCOHEMOGLOBIN A1Con 01-35-7409OXG RECOMMENDATIONSEE BELOWNocarolinas continuecare hospital at [facility] The [facility] HospitalComeaton rapids medical center on above:Result Comment: ADA RECOMMENDED LIMIT 4.0 - 6.0 ADA THERAPEUTIC TARGET < 7.0 ACTION SUGGESTED > 7.0Performed By: #### A1C #### [facility] [address] [address] [address] Marty OlsonGlucose [Mass/Vol]108 mg/dLNoOhioHealth Dublin Methodist HospitalComment on above:Performed By: #### A1C #### [facility] [address] [address] [address] Marty OlsonHbA1c (Bld) [Mass fraction]5.4 %Normal4.5-6.2The [facility] on above:Performed By: #### A1C #### [facility] [address] [place] [address] Dr. Marty Heard 21-01-4524Ooqp [Mass/Vol]32.0 ug/dLCritically low 50.0-170.0The [facility] on above:Performed By: #### VITAD, IRON, FERR, FT4 #### [facility] [address] [address] [address] Marty OlsonLIPID PROFILEon 62-46-1609OBJJ-HDL RATIO NORMSEE BELOWOhioHealthComeaton rapids medical center on above:Result Comment: 3.3 - 4.4 LOW RISK 4.4 - 7.1 AVERAGE RISK 7.1 - 11.0 MODERATE RISK >11.0 HIGH RISKPerformed By: #### TSH, LIPID, FT3, BMP, LIVER ####[facility] [address] [address]Dr. Marty OlsonCholesterol [Mass/Vol]172 mg/dLNormal<=200[facility] on above:Performed By: #### TSH, LIPID, FT3, BMP, LIVER ####[facility] [address] [address]Dr. Marty OlsonCholesterol in HDL [Mass/Vol]68 mg/dLCritically wrbd99-64SkvUniversity Hospitals Tripoint Medical CenterComment on above:Performed By: #### TSH, LIPID, FT3, BMP, LIVER ####[facility] [address] [address]Dr. Yilan ChangCholesterol in LDL [Mass/Vol]95.0 mg/dLNoOhioHealth Dublin Methodist HospitalComment on above:Performed By: #### TSH, LIPID, FT3, BMP, LIVER ####[facility] [address] [place], [place] [address]Dr. Yilan ChangCholesterol.total/Cholesterol in HDL [Mass ratio]2.5 {ratio}NormalThe Peoples HospitalComeaton rapids medical center on above:Performed By: #### TSH, LIPID, FT3, BMP, LIVER ####[facility] [address] [place], [place] [address]Dr. Yilan ChangHDL NORMAL> or = 60 mg/dl - LOW CARDIOVASCULAR RISK <40 mg/dl - HIGH CARDIOVASCULAR RISKNoOhioHealth Dublin Methodist HospitalComment on above:Performed By: #### TSH, LIPID, FT3, BMP, LIVER ####[facility] [address] [place], [place] [address]Dr. Yilan ChangLDL CALC NORMALSEE BELOWOhioHealthComment on above:Result Comment: <100 mg/dl OPTIMAL 100 - 129 mg/dl NEAR OR ABOVE OPTIMAL 130 - 159 mg/dl BORDERLINE HIGH 160 - 189 mg/dl HIGH >190 mg/dl VERY HIGHPerformed By: #### TSH, LIPID, FT3, BMP, LIVER ####[facility] [address] [place], [place] [address]Dr. Yilan Olson Triglyceride [Mass/Vol]45 mg/dLNormal<=150University Hospit[facility] Tripoint Medical CenterComeaton rapids medical center on above: Performed By: #### TSH, LIPID, FT3, BMP, LIVER ####[facility] [address] [address]Dr. Yilan ChangVLDL CALC9.0 mg/dLOhioHealthComment on above:Performed By: #### TSH, LIPID, FT3, BMP, LIVER ####[facility] [address] [address]Dr. Yilan ChangLIVER PROFILEon 77-99-1331Eriwefg [Mass/Vol]3.1 g/dL Critically low3.4-5.0The Peoples HospitalComment on above:Performed By: #### TSH, LIPID, FT3, BMP, LIVER ####[facility] [address] [address]Dr. Yilan ChangAlbumin/Globulin [Mass ratio]0.9 {ratio}NormalThe [facility] on above:Performed By: #### TSH, LIPID, FT3, BMP, LIVER ####[facility] [address] [address]Dr. Yilan ChangALP [Catalytic activity/Vol]69 U/LNormal 46-116The [facility]oples HospitalComment on above:Performed By: #### TSH, LIPID, FT3, BMP, LIVER ####[facility] [address] [place], [place] [address]Dr. Yilan ChangALT [Catalytic activity/Vol]21 U/VNxzxim53-89Rwl [facility] on above:Performed By: #### TSH, LIPID, FT3, BMP, LIVER ####[facility] [address] [place], [place] [address]Dr. Yilan ChangAST [Catalytic activity/Vol]11 U/LCritically vbg76-45Hqg [facility] on above:Performed By: #### TSH, LIPID, FT3, BMP, LIVER ####[facility] [address] [place], [place] [address]Dr. Yilan ChangBILI, CONJUGATED0.1 mg/dLNormal0.0-0.2The [facility] on above:Performed By: #### TSH, LIPID, FT3, BMP, LIVER ####[facility] [address] [place], [place] [address]Dr. Yilan ChangBilirubin [Mass/Vol]0.2 mg/dLNormal0.2-1.0The [facility]oples HospitalComment on above:Performed By: #### TSH, LIPID, FT3, BMP, LIVER ####[facility] [address] [address]Dr. Yilan ChangGlobulin (S) [Mass/Vol]3.4 g/dL NormalThe Peoples HospitalComment on above:Performed By: #### TSH, LIPID, FT3, BMP, LIVER ####[facility] [address] [address]Dr. Yilan ChangProtein [Mass/Vol]6.5 g/dLNormal6.4-8.2The [facility] Comment on above:Performed By: #### TSH, LIPID, FT3, BMP, LIVER ####[facility] [address] [address]Dr. Yilan ChangPROF CHEM 8 (BAS METB)on 12-85-7895Vqimp gap [Moles/Vol]10.3 mmol/LNormalThe Peoples HospitalComment on above:Performed By: #### TSH, LIPID, FT3, BMP, LIVER ####[facility] [address] [place], [place] [address]Dr. Yilan ChangCalcium [Mass/Vol]8.3 mg/dLCritically low8.5-10.1The [facility]oples HospitalComment on above:Performed By: #### TSH, LIPID, FT3, BMP, LIVER ####[facility] [address] [address]Dr. Yilan ChangChloride [Moles/Vol]107 mmol/MWmrnvx04-931Vnd [facility] Comment on above:Performed By: #### TSH, LIPID, FT3, BMP, LIVER ####[facility] [address] [address]Dr. Yilan ChangCO2 [Moles/Vol]25.0 mmol/EWhuuod83.0-32.0The [facility]oples HospitalComment on above: Performed By: #### TSH, LIPID, FT3, BMP, LIVER ####[facility] [address] [place], [place] [address]Dr. Yilan ChangCreatinine [Mass/Vol]0.72 mg/dLNormal0.55-1.02[facility] on above: Performed By: #### TSH, LIPID, FT3, BMP, LIVER ####[facility] [address] [place], [place] [address]Dr. Yilan ChangEGFR-AF MEXICAN>60Normal>=60The [facility] on above:Performed By: #### TSH, LIPID, FT3, BMP, LIVER ####[facility] [address] [place], [place] [address]Dr. Yilan ChangEGFR-NON AF MEXICAN>60Normal>=60The [facility] on above:Performed By: #### TSH, LIPID, FT3, BMP, LIVER ####[facility] [address] [place], [place] [address]Dr. Yilan ChangGlucose [Mass/Vol]94 mg/sFJckmkx81-211Pnv [facility] on above:Performed By: #### TSH, LIPID, FT3, BMP, LIVER ####[facility] [address] [place], [place] [address]Dr. Yilan ChangPotassium [Moles/Vol]4.3 mmol/LNormal3.5-5.1The [facility] on above: Performed By: #### TSH, LIPID, FT3, BMP, LIVER ####[facility] [address] [place], [place] [address]Dr. Yilan ChangSodium [Moles/Vol]138 mmol/PCukbvc881-937Wnl [facility] on above: Performed By: #### TSH, LIPID, FT3, BMP, LIVER ####[facility] [address] [place], [place] [address]Dr. Yilan ChangUrea nitrogen [Mass/Vol]19.0 mg/dLCritically high7.0-18.0The [facility] on above:Performed By: #### TSH, LIPID, FT3, BMP, LIVER ####[facility] [address] [place], [place] [address]Dr. Yilan ChangUrea nitrogen/Creatinine [Mass ratio]26.4 mg/mgNormalThe [facility] on above:Performed By: #### TSH, LIPID, FT3, BMP, LIVER ####[facility] [address] [address]DrJessie RagsdaleHon 75-49-8264LXL2.968 uIU/mLNormal0.358-3.740[facility] CenterComeaton rapids medical center on above: Performed By: #### TSH, LIPID, FT3, BMP, LIVER ####[facility] [address] [address]DrJessie OlsonVITAMIN D 25 OHon 88-64-7052IVH D 25-OH43.8 ng/mLNormalUniversity Hospitals Tripoint Medical CenterComeaton rapids medical center on above: Performed By: #### VITAD, IRON, FERR, FT4 #### [facility] [address] [address] [address] Marty WALKERPaulding County HospitalComeaton rapids medical center on above: Result Comment: <20 ng/mL Vit D deficient 20 - <30 ng/mL Vit D insufficient 30 - 100 ng/mL Vit D sufficient >100 ng/mL Potential ToxicityPerformed By: #### VITAD, IRON, FERR, FT4 #### [facility] [address] [address] [address] Marty Lee Referralon 23-89-6079Znzfgtkvh Referral [id number]#1.00CD:[address] [place] [address] BP Strepon 11-16-2021 BP Streporder added by system This is strictly a screening test for Strep Group A( Streptococcus pyogenes). No other pathogens will be noted. Final Backup plate negative for Group A Streptococus Resulted at [facility] Charles HospitalComment on above: Performed By: #### BP #### [facility] ([facility]) [address] [place] [address] [facility] [address] [place], [place] [address]IY Clinical Summaryon [id number] Clinical Summary [facility] [address] [place] [address] ED Clinical Summary Person Information Name: Natalie Jaquez [place] Age: 26 Years : 1995 Sex: Female PCP: Jayme Schmidt MD Marital Status: Single Phone: Race: White Ethnicity: Not or Language: [place] Visit Reason: Ear pain; Throat pain - Adult; Throat pain Acuity: 4 Enc Type: Emergency Med Service: Emergency Medicine Arrival: 11/14/2021 06:21:46 Discharge: 11/14/2021 08:20:00 LOS: 000 01:59 Checkin: 11/14/2021 06:21:46 Checkout: 11/14/2021 08:20:00 Dispo Type: Home or Self Care Address: [facility] [address] Provider Notes: Diagnosis: 1:Pharyngitis Problems No Problems [...] Visit Final Med List: New Medications [id number], [address] [place], [place] [id number], [phone] amoxicillin (amoxicillin 500 mg oral tablet) 1 Tabs Oral (given by mouth) 3 times a day for 7 Days.Refills: 0. Last Dose: naproxen (naproxen 500 mg [...] Last Dose: cholecalciferol (Vitamin D3) Last Dose: dextroamphetamine-amphetamine (Adderall) Oral (given by mouth) 2 times a day. Last Dose: levothyroxine every day. Last Dose: metFORMIN Oral (given by mouth). Last Dose: multivitamin with iron (Iron 100 Plus) Oral (given by mouth) every day. Last Dose: norgestimate-ethinyl estradiol (Tri Femynor) Oral (given by mouth) every day. Last Dose: venlafaxine Oral (given by mouth). Last Dose: [id number], [address] [place] [id number], [phone] amoxicillin (amoxicillin 500 mg oral tablet) 1 Tabs Oral (given by mouth) 3 times a day for 7 Days.Refills: 0. naproxen (naproxen 500 mg oral tablet) 1 Tabs Oral (given by mouth) 2 times a day as needed pain for 15 Days. Refills: 0. Other Medications ARIPiprazole (Abilify) Oral (given by mouth) every day. buPROPion (Wellbutrin SR) Oral (given by mouth) 2 times a day. cholecalciferol (Vitamin D3) dextroamphetamine-amphetamine (Adderall) Oral (given by mouth) 2 times [...] Follow up: With: Address: When: Jayme Schmidt [address] [place] [id number] [phone] Business (1) , only if needed Discharge Orders: Discharge Patient 11/14/21 8:07:00 EDT, Discharge to Home, Self, Pharyngitis Patient Education Information: Pharyngitis, Report Pending [facility] Poison Help line: . [facility] Hotline: [place] Tobacco Quit Line: [place], [place]) [address]: [phone] [place], [place]) [address]: [phone] [facility] [address], [place]: [phone] [facility]onED Note-Physicianon 46-22-5160FJ Note-Physician Chief Complaint pt said she smoked around 6pm yesterday she had sudden throat pain, and then around bedtime startedthe bilateral ear pain History of Present Illness [...] tabs, 0 Refill(s), 11/21/21 8:06:00 EDT, Pharmacy: [facility]/pharmacy #[id number] naproxen, 1 tabs, Oral, BID, PRN, X 15 days, # 30 tabs, 0 Refill(s), 11/29/21 8:06:00 EDT, Pharmacy: [facility]/pharmacy #[id number] Discharge Patient Orders: Culture Backup Strep [...] signed by David Montana MD 11/14/21 10:58 EDTNormalSelect [facility] Strep Aon 08-91-2672Lpzbd ANegativeNormalNegativeSelect [facility] [place] Comment on above:Result Comment: A negative result indicates that Strep A is not present in the sample or that the concentration of the Strep A antigen present in the throat swab is below the detectable level of thetest. The patient's sample should be cultured to [...] available to the clinician. Performed By: #### LIVER #### [address] [address]PWOKQ & CERVICAL SPINE MRI DISCRETE DATAon 54-14-3769Qeect Enhancing LesionsNoneCleveland ClinicBrain Interval ImprovementNoneCleveland ClinicBrain New T2 LesionsNoneCleveland ClinicBrain Other Significant MRI FindingsNone.[facility] HospitalBrain Parenchymal Volume LossNoneCMercy Health St. [facility] Brain T2 [place] of DiseaseMildSheltering Arms HospitalMRI BRAIN WO/W IVCONon 2021 [facility] Hospitalend-out: Otheron 10-04-4683Asav-out OtherSee ReportNormal [facility], AvonComment on above:Order Comment: Reference Lab[facility] LaboratoriesTest Name: Vitamin D2 and D3Test Code: 25HDNdraw one sst Result Comment: Missing Attachment Chartable Reference Lab Reports Can be viewed in source systemPerformed By: #### HBA1C #### [address] [address].eGFRon 26-02-9410vXFR Non-AA>60Normal>=60[facility], AvonComment on above:Result Comment: Stages of Chronic Kidney Disease GFR Stage 3a [...] maximum of SCr/? or 1 age = yearsPerformed By: #### LIVER #### [address] [address]iRPR AA>60Normal>=60[facility], AvonComment on above:Result Comment: See comment.Performed By: #### LIVER #### [address] [address]Rmhdr Metabolic Profileon 37-38-7749Gknew gap [Moles/Vol]14 mmol/LNormal7-17[facility], AvonComment on above:Performed By: #### LIVER #### [address] [address]Jrwxjfa [Mass/Vol]8.6 mg/dLNormal8.5-10.3BAvita Health SystemComment on above:Performed By: #### LIVER #### [address] [address]Vjfifdvg [Moles/Vol]101 mmol/FSvamha58-320BajsqthsqSelect Medical [facility] Hospital, AvonComment on above:Performed By: #### LIVER #### [address] [address]WO1 [Moles/Vol]25 mmol/UEecory78-07CzhuunksrSelect Medical [facility] Clinic Rehabilitation Hospital, AvonComment on above:Performed By: #### LIVER #### [address] [address]Cfjevbqmor [Mass/Vol]0.75 mg/dLNormal0.44-1.03[facility], AvonComment on above:Performed By: #### LIVER #### [address] [address]Mitgfle [Mass/Vol]81 mg/aTTvnmhz16-52PgjyjicnwSelect Medical [facility] Hospital, AvonComment on above:Performed By: #### LIVER #### [address] [address]Fbgolguxo [Moles/Vol]3.4 mmol/LNormal3.4-4.8BAvita Health SystemComment on above:Performed By: #### LIVER #### [address] [address]Ajdjru [Moles/Vol]137 mmol/GOwijvv891-999CtzbplnphSelect Medical Cleveland Clinic Rehabilitation Hospital, AvonComment on above:Performed By: #### LIVER #### [address] [address]Gtvx nitrogen [Mass/Vol]16 mg/dLNormal8-26[facility], AvonComment on above:Performed By: #### LIVER #### [address] [address]Sbix nitrogen/Creatinine [Mass ratio]21.3 mg/yfOtaf66.0-20.0 [facility], AvonComment on above:Performed By: #### LIVER #### [address] [address]LOZ w/ Diffon 07-28-0730Cnqbcejkron distribution width (RBC) [Ratio]14.6 %Skszux56.6-14.8BAvita Health SystemComment on above: Performed By: #### CBC #### [address] [address]Mllgfdtygc (Bld) [Volume fraction]36.6 %Astttq43.0-46.0 [facility], AvonComment on above:Performed By: #### CBC #### [address] [address]Kkqqcvfyhg (Bld) [Mass/Vol]12.3 g/lKRnkqtz39.0-16.0[facility], AvonComment on above:Performed By: #### CBC #### [address] [address]VOF (RBC) [Entitic mass]29.9 lsWscpfk61.0-35.0[facility], AvonComment on above:Performed By: #### CBC #### [address] [address]UIDY10.5 %Ragnli83.0-37.0[facility], AvonComment on above:Performed By: #### CBC #### [address] [address]FJV (RBC) [Entitic vol]89.3 dKAebmfs16.0-100.0[facility], AvonComment on above:Performed By: #### CBC #### [address] [address]Qszdxciv805 x10*3/eyQHush315-399RvuwcgbpbSelect Medical [facility] [place] Comment on above:Performed By: #### CBC #### [address] [address]Hsphxvfi mean volume (Bld) [Entitic vol]7.4 fLNormal6.7-10.6 [facility], AvonComment on above:Performed By: #### CBC #### [address] [address]CAU8.10 x10*6/mcLNormal3.80-5.20[facility] Comment on above:Performed By: #### CBC #### [address], [place] [address]AEU70.4 x10*3/mcLNormal4.5-11.0[facility] Comment on above:Performed By: #### CBC #### [address] [address]Hjvw Autoon 81-05-9504Gjfp Absolute0.0 x10*3/mcLNormal0.0-0.2 [facility], AvonComment on above:Performed By: #### LIVER #### [address] [address]Jhbgznetu/100 WBC (Bld)0.3 %Normal0.0-1.5BAvita Health SystemComment on above:Performed By: #### LIVER #### [address] [address]Qsv Absolute0.1 x10*3/mcLNormal0.0-0.4BAvita Health SystemComment on above:Performed By: #### LIVER #### [address] [address]Zblamyzueya/100 WBC (Bld)0.6 %Normal0.0-5.4BAvita Health SystemComment on above:Performed By: #### LIVER #### [address] [address]Ocqfl Absolute2.1 x10*3/mcLNormal1.0-4.8BAvita Health SystemComment on above:Performed By: #### LIVER #### [address] [address]Jopakpfnarj/100 WBC (Bld)19.8 %Low27.2-40.8BAvita Health SystemComment on above:Performed By: #### LIVER #### [address] [address]Lihd Absolute0.7 x10*3/mcLNormal0.1-1.1BAvita Health SystemComment on above:Performed By: #### LIVER #### [address] [address]Xmehpebxz/100 WBC (Bld)6.4 %Normal3.7-11.9BAvita Health SystemComment on above:Performed By: #### LIVER #### [address] [address]Gydapg Absolute7.6 x10*3/mcLNormal1.8-7.7BAvita Health SystemComment on above:Performed By: #### LIVER #### [address] [address]Cljkog Auto72.9 %High47.2-70.8BA[facility] Health System Comment on above:Performed By: #### LIVER #### [address] [address]Ysxm T3on 87-63-9470Trxx T3 [Mass/Vol]3.29 pg/mLNormal2.50-3.90 [facility], AvonComment on above:Performed By: #### LIVER #### [address] [address]Iwpe T4on 10-80-6539Ajgw T4 [Mass/Vol]0.82 ng/dLNormal0.61-1.12 [facility], AvonComment on above:Performed By: #### LIVER #### [address] [address]Plq Func Panelon 63-50-0243Lwmwraq [Mass/Vol]3.9 g/dLNormal 3.2-4.9BAvita Health SystemComment on above:Performed By: #### LIVER #### [address] [address]Ebe Phos61 IU/JHpihuo65-24DmgbouywxSelect [facility], AvonComment on above:Performed By: #### LIVER #### [address] [address]BHU [Catalytic activity/Vol]17 U/EXfagnn95-60OslvoziyjSelect Medical [facility] Clinic Rehabilitation Hospital, AvonComment on above:Performed By: #### LIVER #### [address] [address]VIA [Catalytic activity/Vol]18 U/VEcestl58-20OerclxxhoSelect Medical [facility] Hospital, AvonComment on above:Performed By: #### LIVER #### [address] [address]Rrtl Direct0.2 mg/dLNormal0.1-0.5BAvita Health System Comment on above:Performed By: #### LIVER #### [address] [address]Wrlj Indirect0.4 mg/dLNormal0.0-1.0[facility], AvonComment on above:Performed By: #### LIVER #### [address] [address]Hnay Total0.6 mg/dLNormal0.3-1.2BA[facility] Comment on above:Performed By: #### LIVER #### [address] [address]Kpotuyw [Mass/Vol]6.8 g/dLNormal6.5-8.1BAvita Health SystemComment on above:Performed By: #### LIVER #### [address] [address]Yjf A1con 72-14-7526Zbhipjz [Mass/Vol]94 mg/aKCvpebs84-914 [facility], AvonComment on above:Result Comment: Mathematical Calc approx. The mean gluc equivalency of X4bJrtgbpezu By: #### HBA1C #### [address] [address]Lpz A1c4.9 % C1lVwilwn4.0-5.6BAvita Health System Comment on above:Result Comment: Reference Range: 4.0 - 5.6 % Normal 5.7 - 6.4 % Pre-Diabetes > 6.5 % DiabetesPerformed By: #### HBA1C #### [address] [address]Xbhrphisi 63-81-6569Agspftt Lvl7.05 mcIU/mLNormal1.90-23.00 [facility], AvonComment on above:Performed By: #### HBA1C #### [address] [address]Vdpmd Panelon 40-45-1227Woawfpmakep in LDL [Mass/Vol]136 mg/dL High0-99[facility], AvonComment on above:Result Comment: The equation being used in this calculation is LDL = (Chol - HDL) - (Trig / 5) The optimal value of LDL for individual patients may vary. The patient's history of Artherosclerosis and other cardiac risk factors should be considered.Performed By: #### HBA1C #### [address] [address]Ekoawai Risk2.8NormalSelect Medical Cleveland Clinic Rehabilitation Hospital, AvonComment on above:Result Comment: Men Women 1/2 Average 3.43 3.27 Average 4.97 4.44 2x Average 9.55 7.05 3x Average 23.99 11.04Performed By: #### HBA1C #### [address] [address]Hqunrmgxcbw [Mass/Vol]233 mg/wRUput65-635NbvujewqzSelect Medical [facility] Clinic Rehabilitation Hospital, AvonComment on above:Result Comment: 0 - 17 years of age: Desirable 0-170 Borderline High 170-199 High >=200 18 years and older: Acceptable <200 Borderline High 200-239 High >=240Performed By: #### HBA1C #### [address] [address]Rpoeengsnya in HDL [Mass/Vol]83.6 mg/gLPglh23.0-60.0[facility], AvonComment on above:Performed By: #### HBA1C #### [address] [address]Uehyfswtrkt in VLDL [Mass/Vol]13 mg/dLNormal8-39[facility], AvonComment on above:Performed By: #### HBA1C #### [address] [address]Tczkagxrtznm [Mass/Vol]66 mg/dLNormalSelect Medical [facility] Hospital, AvonComment on above:Result Comment: 0 - 17 years of age: Trig 90 - 129 Borderline High Trig => 130 High 18 years and older: Trig 150 - 199 Borderline High Trig 200 - 499 High Trig =>500 Very HighPerformed By: #### HBA1C #### [address] [address]TZKit 31-43-1410SOO Qn2.99 m[IU]/LNormal0.45-5.33[facility], AvonComment on above:Result Comment: Reference Ranges for individuals from to 18 years of age were obtained from The Regina Starks Handbook (20 ed) published by [facility]. Reference Ranges for Females: Females, 1st Trimester 0.05 ? 3.7 uIU/mL Females, 2nd Trimester 0.31 ? 4.35 uIU/mL Females, 3rd Trimester 0.41 ? 5.18 uIU/mLPerformed By: #### LIVER #### [address] [address]Fnlkho Care Office/Clinic Noteon 39-07-4824Dlqwyv Care Office/Clinic NoteChief Complaint pt states sob, runny nose, sinus drainage. x 2-3 days History of Present Illness A 25-year-old with a history of multiple sclerosis presents with chest congestion. She states that for the past 3 days she had had a runny nose, postnasal drainage and now chest congestion. She denies cough, sneezing, runny nose, ear pain, fever, difficulty breathing, wheezing. She has no personal h istory of any asthma. She takes her MS [...] with no retraction present. Canals are free ofdrainage and erythema. Free of mastoiditis Nose: Negative [...] reviewed the patient?s medication list for medication interactions/contraindications and/or for upcoming procedures: [yes or no] [...] signed by Kezia Kumari PA-C 03/12/21 15:55 [facility] 48-17-8794Hyeizn Care Office/Clinic Note Chief Complaint Patient reports [...] is within a skin fold when patient issitting in upright position. +scant amount of clear [...] 30 g, 0 Refill(s), 03/08/21 17:05:00 EDT,Pharmacy: [facility]/pharmacy #[id number] Medical Decision Making Patient is well and nontoxic-appearing upon evaluation. Vital signs are stable. Reviewed assessmentand plan of care with patient. Patient verbalized understanding and agreed with plan. No further questions or concerns upon discharge. Chronic conditions NOT treated during this visit that affected my overall medical decision making: [] Treatment plans discussed but not opted for at this time: [] Prescribed medication that requires intensive monitoring for toxicity: [] I have reviewed the patient?s medication list for medication interactions/contraindications and/or for upcoming procedures: [yes] Time Spent [...] (MRI) Electronically signed by Rakel ANDERSON Leyla Brandone 02/22/21 17:35 [facility]TNo[facility] Vital Signs Date TimeVital SignValuePerforming LhgrdvoirPsxppgjh93-76-5933 10:49-0500Body ixgtnw212.64 cmMarc Julissa BENÍTEZ Work Phone: [phone]11-10-2025 10:49-0500 Body mass index (BMI) [Ratio]44.9 kg/m2Jayme Schmidt MD Work Phone: [phone]11-10-2025 10:49-0500 Body gusrqplmnsy15.1 [degF]Jayme Schmidt MD Work Phone: [phone] [place], [place] 4114911-10-2025 10:49-0500 Body fumbnm226.09 kgJayme Schmidt MD Work Phone: [phone])[address] [place], [place] 4114911-10-2025 10:49-0500 Diastolic blood cgjmilaf48 mm[Hg]Jayme Schmidt MD Work Phone: [phone])[address] [place], [place] 4114911-10-2025 10:49-0500 Heart iqnt277 /minJayme Schmidt MD Work Phone: [phone])[address] [place], [place] 4114911-10-2025 10:49-0500 Respiratory rate18 /minJayme Schmidt MD Work Phone: [phone])[address] [place], [place] 4114911-10-2025 10:49-0500 SaO2% (BldA) [Mass fraction]97 %Jayme Schmidt MD Work Phone: [phone])[address] [place], [place] 4114911-10-2025 10:49-0500 Systolic blood lmflovhq167 mm[Hg]Jayme Schmidt MD Work Phone: [phone])[address] [place], [place] 4114909-10-2025 11:24-0400 Body iioepp728.64 cmJayme Schmidt MD Work Phone: [phone])[address] [place], [place] 4114909-10-2025 11:24-0400 Body mass index (BMI) [Ratio]45.6 kg/m2Jayme Schmidt MD Work Phone: [phone]09-10-2025 11:24-0400 Body modiedeuzvi06.1 [degF]Jayme Schmidt MD Work Phone: [phone]09-10-2025 11:24-0400 Body .36 kgJayme Schmidt MD Work Phone: [phone])[address]09-10-2025 11:24-0400 Diastolic blood hbqwdorx68 mm[Hg]Jayme Schmidt MD Work Phone: [phone])[address]09-10-2025 11:24-0400 Heart rate84 /minJayme Schmidt MD Work Phone: [phone]09-10-2025 11:24-0400 Respiratory rate20 /minJayme Schmidt MD Work Phone: [phone])[address] [place], [place] 4114909-10-2025 11:24-0400 SaO2% (BldA) [Mass fraction]97 %Jayme Schmidt MD Work Phone: [phone]09-10-2025 11:24-0400 Systolic blood mnjfolrq106 mm[Hg]Jayme Schmidt MD Work Phone: [phone])[address]08-05-2025 13:13-0400 Body hsvouh357.6 cmJayme Schmidt MD Work Phone: [facility] CenterXcuwgizrxj26-37-4785 13:13-0400Body mass index (BMI) [Ratio]45.84 kg/m2Jayme Schmitd MD Work Phone: [phone] [place], [place] [address]Xhsjvicnil10-19-5536 13:13-0400Body temperature 97.11 [degF]Jayme Schmidt MD Work Phone: [facility] CenterOirctducny87-39-7107 13:13-0400Body qxsywt616.82 kgJayme Schmidt MD Work Phone: [facility] CenterOeevuzklba94-56-1557 13:13-0400Diastolic blood pegxhygh79 mm[Hg]Jayme Schmidt MD Work Phone: [facility] CenterSsybavkpzk55-71-9815 13:13-0400Heart rate69 /min Jayme Schmidt MD Work Phone: [facility] CenterCbbuxksoze39-20-3145 13:13-0400Respiratory rate20 /minJayme Schmidt MD Work Phone: [facility] CenterZvjgcunajl33-69-4532 13:13-8680WiL8% (BldA) [Mass fraction]98 %Jayme Schmidt MD Work Phone: [facility] CenterRxqwrxclnw46-27-2970 13:13-0400Systolic blood rftghagy570 mm[Hg]Jayme Schmidt MD Work Phone: [facility] CenterWoilqhhyks14-50-2216 14:22-0400Body temperature 98.29 [degF]Chair Munroe Work Phone: [facility]06-23-2025 14:22-0400Diastolic blood mm[Hg]Chair Raissa Work Phone: [facility]06-23-2025 14:22-0400Heart rate86 /min Chair Raissa Work Phone: [facility]06-23-2025 14:22-0400Respiratory rate 16 /minChair Raissa Work Phone: [facility]06-23-2025 14:22-9028OoY2% (BldA) [Mass fraction]96 %Chair Munroe Work Phone: [facility]06-23-2025 14:22-0400Systolic blood knrdthzo412 mm[Hg]Chair Raissa Work Phone: [facility]05-08-2025 14:58-0400Body mass index (BMI) [Ratio]46.85 kg/m2Zoe HADLEY Work Phone: [facility] CenterZehokanxdv90-53-8874 14:58-0400Body itdswi778.66 kgZoe HADLEY Work Phone: noSelect Specialty HospitalOqzxpasbes92-98-6731 14:58-0400Diastolic blood gamwdeto37 mm[Hg]Zoe HADLEY Work Phone: [phone] [place], [place] [address]Brkfxzxdsd80-95-6773 14:58-0400Systolic blood ecpjjdvt462 mm[Hg]Zoe Hemphill PA Work Phone: [phone] [place], [place] [address]Rhervrhzkt89-26-2029 14:57-0500Body mass index (BMI) [Ratio]45.35 kg/m2Amy Hemphill PA Work Phone: [phone] [place], [place] [address]Otjqlfilzz82-61-0739 14:57-0500Body sroofc130.46 kgAmy Leann PA Work Phone: [phone])924-[address] [place], [place] [address]Mybnelhkvi01-87-9654 14:57-0500Diastolic blood mm[Hg]Zoe Hemphill PA Work Phone: [phone])141-[address] [place], [place] [address]Cisapnekpw99-39-3478 14:57-0500Systolic blood ogaotnog166 mm[Hg]Zoe Leann PA Work Phone: 1(987)773-[address] [place], [place] [address]Wtbgezchbz03-01-2759 14:39-0500Body mass index (BMI) [Ratio]42.35 kg/m2Amy Leann PA Work Phone: [phone])473-[address] [place], [place] [address]Vgbikbootd30-01-6564 14:39-0500Body jnajmr848.02 kgAmy Leann PA Work Phone: [phone])986-[address] [place], [place] [address]Anktyvzabk97-36-1630 14:39-0500Diastolic blood sywsqapr88 mm[Hg]Zoe Leann PA Work Phone: [phone])138-[facility] CenterBhbtsmxaex11-58-2975 14:39-0500Systolic blood peqzhplc066 mm[Hg]Zoe Leann PA Work Phone: [phone])750-[address] [place], [place] [address]Kwdxvzvefu83-67-6379 15:12-0500Body mass index (BMI) [Ratio]43.26 kg/m2Amy Leann PA Work Phone: [phone])294-[address] [place], [place] [address]Buwiqrzbuo49-76-9403 15:12-0500Body jhocew052.56 kgAmy Hemphill PA Work Phone: [phone] [place], [place] [address]Jejawzmbzf63-69-0712 15:12-0500Diastolic blood mm[Hg]Zoe Leann PA Work Phone: [phone])786-[address] [place], [place] [address]Bdqmpsdagg78-91-9374 15:12-0500Systolic blood mqjxabna925 mm[Hg]Zoe HADLEY Work Phone: noSelect Specialty HospitalRagtzehcsx98-14-9966 15:04-0500Body mass index (BMI) [Ratio]43.42 kg/m2Jayme Schmidt MD Work Phone: noSelect Specialty HospitalKmogzqarzz16-57-0715 15:04-0500Body noikwrklzog20 [degF]Jayme Schmidt MD Work Phone: [facility] CenterOsphvvunum34-20-0322 15:04-0500Body mhauan188.02 kgJayme Schmidt MD Work Phone: [facility] CenterWavdfrhvuj61-73-6522 15:04-0500Diastolic blood stebcujj37 mm[Hg]Jayme Schmidt MD Work Phone: noSelect Specialty HospitalTagtzpzltl73-26-3278 15:04-0500Heart drhz369 /min Jayme Schmidt MD Work Phone: noSelect Specialty HospitalHkfqqroxzz32-14-8976 15:04-4636GoM9% (BldA) [Mass fraction]97 %Jayme Schmidt MD Work Phone: noSelect Specialty HospitalInqfeidnoz34-06-1836 15:04-0500Systolic blood fsutwgzm229 mm[Hg]Jayme Schmidt MD Work Phone: noSelect Specialty HospitalJebtfzqido75-85-0813 14:13-0500Body temperature 97.7 [degF]Chair Raissa Work Phone: [facility]12-23-2024 14:13-0500Diastolic blood rljcobwk08 mm[Hg]Chair [place] Work Phone: [facility]12-23-2024 14:13-0500Heart rate83 /min Chair [place] Work Phone: [facility]12-23-2024 14:13-0500Respiratory rate 14 /minChair Raissa Work Phone: [facility]12-23-2024 14:13-4635MeC6% (BldA) [Mass fraction]95 %Chair Raissa Work Phone: [facility]12-23-2024 14:13-0500Systolic blood fuedaool886 mm[Hg]Chair Munroe Work Phone: [facility]12-16-2024 14:46-0500Body mass index (BMI) [Ratio]43.97 kg/m2Zoe Leann HADLEY Work Phone: [facility] CenterRtaijnuyay91-90-6679 14:46-0500Body lsxgit045.56 kgZoe Leann HADLEY Work Phone: [place] [address]Ckyksmusna36-52-5028 14:46-0500Diastolic blood sugdyihh46 mm[Hg]Zoe HADLEY Work Phone: noSelect Specialty HospitalRrcmmfkyjo00-66-4405 14:46-0500Systolic blood pfsiznzb371 mm[Hg]Zoe HADLEY Work Phone: [facility] CenterUzdikytrfq78-58-0742 11:02-0500Body vaqfjb543.6 cmJayme Schmidt MD Work Phone: [facility] CenterUatbqypimn36-63-2051 11:02-0500Body mass index (BMI) [Ratio]44.22 kg/m2Jayme Schmidt MD Work Phone: [facility] CenterHoewcwsraz44-90-8007 11:02-0500Body temperature 97.11 [degF]Jayme Schmidt MD Work Phone: [facility] CenterOvhhmtlxoo20-12-3970 11:02-0500Body lqpzki723.29 kgJayme Schmidt MD Work Phone: [place] [address]Hqvkrblquu04-53-6131 11:02-0500Diastolic blood hceaxnke23 mm[Hg]Jayme Schmidt MD Work Phone: [facility] CenterNcjmczglsv42-48-1710 11:02-0500Heart jyly545 /min Jayme Schmidt MD Work Phone: [place] [address]Bzbqkzjpgx73-32-2018 11:02-0500Respiratory rate20 /minJayme Schmidt MD Work Phone: noMS Xzbgantwpc52-13-0059 11:02-4966RxY4% (BldA) [Mass fraction]96 %Jayme Schmidt MD Work Phone: [facility] CenterCwgdkarkso60-14-4302 11:02-0500Systolic blood gjiuoyic040 mm[Hg]Jayme Schmidt MD Work Phone: [facility] CenterTnzfxnetol96-93-6117 14:30-0500Body mass index (BMI) [Ratio]44.03 kg/k4Slmrm Butch DO Work Phone: [facility] CenterDvzpbrcyqn33-20-4107 14:30-0500Body guwija833.74 kgCorey Butch DO Work Phone: [facility] CenterSwnxbwodag10-15-8907 14:30-0500Diastolic blood agktojty53 mm[Hg]Caseyelizabeth Lawlero DO Work Phone: [facility] CenterLklqdczoxj08-77-2355 14:30-0500Systolic blood ayuyazgx708 mm[Hg]Caseyelizabeth Lawlero DO Work Phone: [facility] CenterQsipcqvdjw34-09-5881 12:50-0500Body stwhpu823.6 cmJonathan Isabel MD Work Phone: [facility] CenterEcnasopuwe95-83-6490 12:50-0500Body mass index (BMI) [Ratio]44.55 kg/t4QswievJonathan Isabel MD Work Phone: [facility] CenterOqqfmstuhk55-32-4331 12:50-0500Body ifobfi392.19 kgJonathan Isabel MD Work Phone: [facility] CenterVsvuqprfth70-66-0576 12:50-0500Diastolic blood ukckpzum00 mm[Hg]Jonathan Isabel MD Work Phone: [facility] CenterRffezwdwli79-94-8496 12:50-0500Systolic blood unufswly161 mm[Hg]Jonathan Isabel MD Work Phone: [facility] CenterTfhqmvlhdn65-82-6341 15:29-0400Body xaxani964.6 Pablito HADLEY Work Phone: [facility] CenterCyytngcuvh39-41-4603 15:29-0400Body mass index (BMI) [Ratio]44.61 kg/m2Zoe Clayjam HADLEY Work Phone: [facility] CenterVqbpzgpamf68-43-4819 15:29-0400Body pnycpq728.37 kgZoe Clayjam HADLEY Work Phone: noSelect [facility] HospitalUwtsltefxu54-22-3786 15:29-0400Diastolic blood eygqkjrd96 mm[Hg]Zoe Leann HADLEY Work Phone: noSelect [facility]ty HospitalWvsitnjdfu79-05-9725 15:29-0400Systolic blood wpqorhkj023 mm[Hg]Zoe Leann HADLEY Work Phone: [facility] CenterSvxzkpqwnf37-70-2453 09:05-0400Body cwaugl609.6 cmJayme Schmidt MD Work Phone: [facility] CenterOzwgxlcozm80-66-7147 09:05-0400Body mass index (BMI) [Ratio]44.55 kg/m2Jayme Schmidt MD Work Phone: [facility] CenterNzaszathoy08-25-5953 09:05-0400Body temperature 97.3 [degF]Jayme Schmidt MD Work Phone: [facility] CenterIglaeeyoyt50-35-9373 09:05-0400Body .19 kgJayme Schmidt MD Work Phone: [facility] CenterRkikdfrgbn39-63-0020 09:05-0400Diastolic blood wqyaoobh69 mm[Hg]Jayme Schmidt MD Work Phone: [place] [address]Jicxxtikln12-10-8962 09:05-0400Heart xsmv149 /min Jayme Schmidt MD Work Phone: [place] [address]Eyeqdpraqu89-04-1531 09:05-0400Respiratory rate20 /minJayme Schmidt MD Work Phone: [place] [address]Gelbeuwlgj37-03-9706 09:05-2933DxY5% (BldA) [Mass fraction]97 %Jayme Schmidt MD Work Phone: [phone] [address] StreetBwpqkrbbkp11-42-1284 09:05-0400Systolic blood mm[Hg]Jayme Schmidt MD Work Phone: [facility] CenterVahrhpkvsf41-80-6825 13:35-0400Body temperature 98.2 [degF]Chair Raissa Work Phone: [facility]06-26-2024 13:35-0400Diastolic blood gvvvpigo95 mm[Hg]Chair Raissa Work Phone: [facility]06-26-2024 13:35-0400Heart rate84 /min Chair Raissa Work Phone: [facility]06-26-2024 13:35-0400Respiratory rate 16 /minChair Raissa Work Phone: [facility]06-26-2024 13:35-1968HzS9% (BldA) [Mass fraction]96 %Chair Raissa Work Phone: [facility]06-26-2024 13:35-0400Systolic blood uakdtsay931 mm[Hg]Chair Raissa Work Phone: [facility]06-07-2024 13:43-0400Body vujrzf086.6 cmMarielle Gannon APRN.[employer] Work Phone: [facility]06-07-2024 13:43-0400Body mass index (BMI) [Ratio]44.27 kg/y8HfbwdxMarielle Gannon APRN.[employer] Work Phone: [facility]06-07-2024 13:43-0400Body sezjhz288.4 kgMarielle Gannon APRN.[employer] Work Phone: [facility]06-07-2024 13:43-0400Diastolic blood mm[Hg]Marielle Gannon APRN.[employer] Work Phone: [facility]06-07-2024 13:43-0400Heart rate91 /min Marielle Gannon APRN.[employer] Work Phone: [facility]06-07-2024 13:43-0400Respiratory rate 17 /minMarielle Gannon FUEL MANAGEMENT HANDLER.[employer] Work Phone: [facility]06-07-2024 13:43-8627NnQ2% (BldA) [Mass fraction]95 %Marielle Gannon FUEL MANAGEMENT HANDLER.[employer] Work Phone: [facility]06-07-2024 13:43-0400Systolic blood mm[Hg]Marielle Gannon FUEL MANAGEMENT HANDLER.[employer] Work Phone: [facility]05-28-2024 13:32-0400Body .64 cmMD Jayme Schmidt Work Phone: [phone])[address]05-28-2024 13:32-0400 Body mass index (BMI) [Ratio]43.5 kg/m2MD Jayme Schmidt Work Phone: [phone]05-28-2024 13:32-0400 Body wyocjilmrwv67.8 [degF]MD Jayme Schmidt Work Phone: [phone]05-28-2024 13:32-0400 Body jwjoqx891.46 kgMD Jayme Schmidt Work Phone: 1([phone])[address]05-28-2024 13:32-0400 Diastolic blood gymwmxsg74 mm[Hg]MD Jayme Schmidt Work Phone: 1(640)010-[address] [place], [place] 4681805-28-2024 13:32-0400 Heart korz418 /minMD Jayme Schmidt Work Phone: 1(475)173-[address] [place], [place] 4681805-28-2024 13:32-0400 Respiratory rate18 /minMD Jayme Schmidt Work Phone: 1([phone])275-[address] [place], [place] 4681805-28-2024 13:32-0400 SaO2% (BldA) [Mass fraction]97 %MD Jayme Schmidt Work Phone: 1(873)639-[address] [place], [place] 4681805-28-2024 13:32-0400 Systolic blood vfssarte893 mm[Hg]MD Jayme Schmidt Work Phone: [facility]03-04-2024 16:39-0500 Body aeatdq695.64 cmMD Jayme Schmidt Work Phone: [phone]-[facility]03-04-2024 16:39-0500 Body mass index (BMI) [Ratio]41.9 kg/m2MD Jayme Schmidt Work Phone: 1(725)676-[address] [place], [place] 4681803-04-2024 16:39-0500 Body qulaikaefnu55.3 [degF]MD Jayme Schmidt Work Phone: 1([phone])[address]03-04-2024 16:39-0500 Body .93 kgMD Jayme Schmidt Work Phone: 1(677)[address]03-04-2024 16:39-0500 Heart rate74 /minMD Jayme Schmidt Work Phone: 1(675)962-[address] [place], [place] 4681803-04-2024 16:39-0500 SaO2% (BldA) [Mass fraction]99 %MD Jayme Schmidt Work Phone: 1([phone])595-[address] [place], [place] 4681802-06-2024 08:40-0500 Body phidiy591.6 cmDesiree Chizmadia FUEL MANAGEMENT HANDLER.[employer] Work Phone: [facility]02-06-2024 08:40-0500Body nkkoth338.3 kgDesiree Chizmadia FUEL MANAGEMENT HANDLER.[employer] Work Phone: [facility]02-06-2024 08:40-0500Diastolic blood mm[Hg]Yoly Chizmadia FUEL MANAGEMENT HANDLER.[employer] Work Phone: [facility]02-06-2024 08:40-0500Heart rate77 /min Yoly Chizmadia FUEL MANAGEMENT HANDLER.[employer] Work Phone: [facility]02-06-2024 08:40-0500Systolic blood efzylunr500 mm[Hg]Yoly Chizmadia [employer] Work Phone: [place] [address]-16-2023 12:40-0400Body rqdcau689.64 cmPmarilia Vicky Other [employer] Other 09-16-2023 12:40-0400Body mass index (BMI) [Ratio] 40.51 kg/u7Ylmoxyjaleel Perry Other [employer] Other 09-16-2023 12:40-0400Body nrhfazhxwve73.2 [degF]Erica Vicky Other [employer] Other 09-16-2023 12:40-0400Body zsabrh711.85 kgAlexanderandre Vicky Other [employer] Other 09-16-2023 12:40-0400Diastolic blood jrauarjc62 mm[Hg] Erica Vicky Other [employer] Other 09-16-2023 12:40-0400Respiratory rate18 /minErica Perry Other [employer] Other 09-16-2023 12:40-2639QwQ8% (BldA) [Mass fraction]96 % Erica Vicky Other [employer] Other 09-16-2023 12:40-0400Systolic blood hbifntcb648 mm[Hg] Erica Perry Other [employer] Other 07-08-2023 13:30-0400Body rxgily230.64 Constantine Vicky Other [employer] Other 07-08-2023 13:30-0400Body mass index (BMI) [Ratio] 45.19 kg/g3HmhbqcErica Perry Other [employer] Other 07-08-2023 13:30-0400Body .4 [degF]Erica Leomond Other [employer] Other 07-08-2023 13:30-0400Body ekmhfz638.01 kgErica Perry Other [employer] Other 07-08-2023 13:30-0400Diastolic blood abfqgvuk39 mm[Hg] Erica Leomond Other [employer] Other 07-08-2023 13:30-0400Respiratory rate18 /minErica Perry Other [employer] Other 07-08-2023 13:30-1055QgX7% (BldA) [Mass fraction]99 % Erica Perry Other [employer] Other 07-08-2023 13:30-0400Systolic blood mm[Hg] Erica Leomond Other [employer] Other 06-21-2023 13:29-0400Body omsqufehzhw61.2 [degF]Chair Raissa Work Phone: [facility]06-21-2023 13:29-0400Diastolic blood vxpwljhe91 mm[Hg]Chair [place] Work Phone: [facility]06-21-2023 13:29-0400Heart rate79 /min Chair Raissa Work Phone: [facility]06-21-2023 13:29-0400Respiratory rate 16 /minChair Raissa Work Phone: [facility]06-21-2023 13:29-4222HqD8% (BldA) [Mass fraction]97 %Chair Raissa Work Phone: [facility]06-21-2023 13:29-0400Systolic blood bvesoetg008 mm[Hg]Chair Raissa Work Phone: [facility]04-30-2023 15:10-0400Body .64 cmAmber Nabeel Other [employer] Other 04-30-2023 15:10-0400Body mass index (BMI) [Ratio] 41.96 kg/z1YcnnmCarol Ann Lees Other [employer] Other 04-30-2023 15:10-0400Body chzuoddrywp26.4 [degF]Carol Ann Lees Other [employer] Other 04-30-2023 15:10-0400Body ioqrgo067.94 kgCarol Ann Lees Other [employer] Other 04-30-2023 15:10-0400Diastolic blood sewydxjm33 mm[Hg] Carol Ann Lees Other [employer] Other 04-30-2023 15:10-0400Respiratory rate16 /minCarol Ann Lees Other [employer] Other 04-30-2023 15:10-0527XdF1% (BldA) [Mass fraction]99 % Carol Ann Lees Other [employer] Other 04-30-2023 15:10-0400Systolic blood sfgsrebn899 mm[Hg] Carol Ann Lees Other [facility] Other 02-10-2023 14:31-0500Body .6 cmDesiree Chizmadia FUEL MANAGEMENT HANDLER.[facility] Work Phone: [facility]02-10-2023 14:31-0500Body cjotqv22.79 kgDesiree Chizmadia FUEL MANAGEMENT HANDLER.[facility] Work Phone: [facility]02-10-2023 14:31-0500Diastolic blood hvidaisx73 mm[Hg]Yoly Chizmadia FUEL MANAGEMENT HANDLER.[facility] Work Phone: [facility]02-10-2023 14:31-0500Heart rate91 /min Yoly Chizmadia FUEL MANAGEMENT HANDLER.[facility] Work Phone: [facility]02-10-2023 14:31-0500Systolic blood uscyarex843 mm[Hg]Yoly Chizmadia FUEL MANAGEMENT HANDLER.[facility] Work Phone: [facility]01-04-2023 13:55-0500Body oefjnr671.64 cmPmarilia Perry Other [place] [facility] Other 01-04-2023 13:55-0500Body mass index (BMI) [Ratio] 40.67 kg/r1IagglvErica Perry Other [place] [facility] Other 01-04-2023 13:55-0500Body dvdjlszgavp64.4 [degF]Erica Perry Other [place] Other 01-04-2023 13:55-0500Body lljkit174.31 kgErica Perry Other [place] Other 01-04-2023 13:55-0500Respiratory rate18 /minLeoniejaleel Perry Other [facility] [place] Other 01-04-2023 13:55-3174AfH4% (BldA) [Mass fraction]97 % Erica Perry Other [facility] [place] Other 12-21-2022 13:18-0500Diastolic blood ioojuwyb26 mm[Hg] Chair [place] Work Phone: [facility]12-21-2022 13:18-0500Heart rate90 /min Chair Raissa Work Phone: [facility]12-21-2022 13:18-0500Respiratory rate 18 /minChair Raissa Work Phone: [facility]12-21-2022 13:18-0316JsK1% (BldA) [Mass fraction]96 %Chair Raissa Work Phone: [facility]12-21-2022 13:18-0500Systolic blood wqznuavh453 mm[Hg]Chair Raissa Work Phone: [facility]12-21-2022 12:15-0500Body temperature 97.81 [degF]Chair Raissa Work Phone: [facility]11-01-2022 14:18-0400Blood Pressure LocationMichael NILL [facility] Surgery Ldfwjhqd17-24-8785 14:18-0400Diastolic blood gdvzvcyv30 mm[Hg]Yusuf NILL [facility] Surgery Mmmhpiyh40-70-6260 14:18-0400Heart rate 70 /minMichael NILL [facility]11-01-2022 14:18-0400 Respiratory rate16 /minMichael NILL General Surgery Ihhgwnbk85-49-7271 14:18-0400Systolic blood jbyafnbm742 mm[Hg]Yusuf CASTRO General Surgery [place] Encounters Encounter DateEncounter TypeCare ProviderFacilityStart: 06-02-2025 End: 60-58-9048apmavqtuslSznv Naderer MD Work Phone: -[facility] ClydeStart: 06-02-2025 End: 90-96-6476Exhcozk encounter procedureJayme Schmidt MDN[facility] [place] Work Phone: Start: 05-22-2025 End: 57-36-8002Cavakae encounter procedureTheo Luna MD-[facility] Work Phone: Start: 05-22-2025 End: 24-30-9978djoogjdaibSlou Naderer MD Work Phone: -[facility] CenterStart: 73-72-9225ygtiygbrilJXHK A LASHNERFacility:[facility] Hospitaltart: 04-16-2025 End: 81-93-4755ewuhnwhuawFRVWNWK CHIZMADIAFacility:[facility] Start: 04-02-2025 End: 60-63-8563mgbssnctkuWvaa Naderer MD Work Phone: [facility] Work Phone: Start: 04-02-2025 End: 08-19-0372Aujwbki encounter procedureJayme Schmidt MDNORTHEAST [facility] [place] Work Phone: Start: 03-21-2025 End: 43-89-6836AedhijGwdx Naderer MD Work Phone: n[facility] CWM FMComment on above:JEFF (generalized anxiety disorder)Start: 03-03-2025 End: 93-59-7332Lyfqzpgwm Result EncounterJayme Schmidt MD Work Phone: noms External Department UnsolicitedStart: 03-03-2025 End: 71-85-5076Vbrgpwqay Result EncounterJayme Schmidt MD Work Phone: noms External Department UnsolicitedStart: 02-25-2025 End: 72-92-2391Mczmqm flowsheetJayme Schmidt MD Work Phone: [facility] CWM FMStart: 02-25-2025 End: 88-16-3669Mfkthm flowsMichela Schmidt MD Work Phone: [facility] CWM FMStart: 02-25-2025 End: 39-32-5229lgfvqisgpwXJOD NADERERNot AvailableStart: 02-25-2025 End: 43-63-1179Deuyzf outpatient visit 25 minutesJayme Schmidt MD Work Phone: noms CWM FMComment on above:Bipolar 1 disorder, depressed, mild (HCC) (Primary Dx); JEFF (generalized anxiety disorder) ; Multiple sclerosis (HCC); Insulin resistance; Class 3 severe obesity due to excess calories without serious comorbidity with body mass index (BMI) of 45.0 to 49.9 in adult (CMS-HCC); Annual physical exam; Tinea crurisStart: 02-25-2025 End: 32-74-2227Wraxivl encounter procedureJayme Schmidt MD Work Phone: [facility] HealthcareStart: 02-08-2025 End: 90-83-2279Ucvcmitvm encounterYoly Miller APRN.CNP Work Phone: [facility] CenterComment on above:Appointment (lvm for pt about scheduling 6 month virtual follow up with Yoly Miller per order workstation. called [phone])Start: 02-08-2025 End: 38-99-8223Lsmrfyrgpxkb consultation with Compa Miller APRN.CNP Work Phone: [facility] CenterStart: 02-08-2025 End: 30-49-7194kjmwlmzrtcKsgkifp Chizmadia APRN.CNP Work Phone: mellen CenterComment on above:Multiple sclerosis (HCC) (Primary Dx); Continuous leakage of urine; Diarrhea, unspecified typeStart: 01-31-2025 End: 68-35-4388Rwptmymrx Result EncounterGeneric External Data ProviderNOMS External Department UnsolicitedStart: 01-31-2025 End: 60-02-9186Jsqgglcka Result EncounterGeneric External Data ProviderNOMS External Department UnsolicitedStart: 01-28-2025 End: 37-71-0723Abfkct Dee Schmidt MD Work Phone: [facility] CWM FMStart: 01-28-2025 End: 07-64-3488Oasssk Dee Schmidt MD Work Phone: n[facility] CWM FMStart: 01-13-2025 End: 68-47-2817Ramdvgxtm Result EncounterGeneric External Data ProviderNOMS External Department UnsolicitedStart: 01-13-2025 End: 36-58-2875Nzbcvgmrv Result EncounterGeneric External Data ProviderNOMS External Department UnsolicitedStart: 01-13-2025 End: 61-34-1497vkogyvbfuzPzawv 2 Raissa Work Phone: Hematology/OncologyComment on above:Multiple sclerosis (HCC) (Primary Dx)Start: 11-28-2024 End: 65-70-7798Bdusth outpatient visit 15 minutesZoe HADLEY Work Phone: [facility] BCP OBComment on above:Encounter for weight managementStart: 11-28-2024 End: 86-21-6558cgstmtknzmKTF RAMEYNot AvailableStart: 11-28-2024 End: 16-22-1074Ovfvke Maya HADLEY Work Phone: [facility] BCP OBStart: 11-28-2024 End: 81-52-5093Rtamxf Maya HADLEY Work Phone: [facility] BCP OBStart: 11-13-2024 End: 47-12-3769TasvyrKgen Naderer MD Work Phone: noms CWM FMComment on above:Adult hypothyroidism (CMS/HCC)Start: 10-23-2024 End: 08-01-8328Fwmrlq-up encounterAutumn Barclay MD Work Phone: [facility] CenterStart: 10-22-2024 End: 33-81-5513btwosdtoqcFLNC A NADERERFacility:[facility] Hospitaltart: 10-22-2024 End: 57-13-7277Jvlkyxlnnh hospital visit by Jose M Villaseñor (I-Stat/3t) Work Phone: RadiologyComment on above:Relapsing remitting multiple sclerosis (HCC) [G35]Start: 09-25-2024 End: 71-94-1167wkydmjfvebEUX RAMEYNot AvailableStart: 09-25-2024 End: 28-04-9047Twzsqw outpatient visit 15 minutesZoe HADLEY Work Phone: noms BCP OBComment on above:Encounter for weight managementStart: 09-25-2024 End: 64-04-3459Xdtcpv Maya [place]LEY Work Phone: [facility] BCP OBStart: 09-25-2024 End: 74-82-6933Reacie Maya [place]LEY Work Phone: NOUD BCP OBStart: 09-25-2024 End: 12-48-8471Xdriimofg Result EncounterGeneric External Data ProviderNOMS External Department UnsolicitedStart: 09-11-2024 End: 65-52-7551Duwqjkwca Result EncounterGeneric External Data ProviderNOMS External Department UnsolicitedStart: 09-11-2024 End: 29-53-3225Twhcwzadr Result EncounterGeneric External Data ProviderNOMS External Department UnsolicitedStart: 08-28-2024 End: 23-27-5057Fzkwgq outpatient visit 15 minutesZoe HADLEY Work Phone: [facility] BCP OBComment on above:Encounter for weight managementStart: 08-28-2024 End: 67-82-8532espexwmvtfSQY RAMEYNot AvailableStart: 08-28-2024 End: 19-80-0661Wxlcaw Maya HADLEY Work Phone: noms BCP OBStart: 08-28-2024 End: 68-97-1657Yflfiq flowsheetZoe HADLEY Work Phone: noms BCP OBStart: 08-26-2024 End: 31-60-7010Zsiqikjxa Result EncounterGeneric External Data ProviderNOMS External Department UnsolicitedStart: 08-26-2024 End: 15-18-4796Jyuauilkn Result EncounterGeneric External Data ProviderNOMS External Department UnsolicitedStart: 08-20-2024 End: 99-74-5235Qankmeprt Result EncounterGeneric External Data ProviderNOMS External Department UnsolicitedStart: 08-20-2024 End: 48-53-5015Gyfgyengn Result EncounterGeneric External Data ProviderNOMS External Department UnsolicitedStart: 08-19-2024 End: 47-44-8252Syrxwhvzs Result EncounterGeneric External Data ProviderNOMS External Department UnsolicitedStart: 08-19-2024 End: 78-90-1591Qedahjafy Result EncounterGeneric External Data ProviderNOMS External Department UnsolicitedStart: 08-15-2024 End: 59-75-6219Yxrjqtnmn Result EncounterJayme Schmidt MD Work Phone: noms External Department UnsolicitedStart: 08-15-2024 End: 77-31-2526Wunpbtkvb Result EncounterJayme Schmidt MD Work Phone: noms External Department UnsolicitedStart: 08-13-2024 End: 73-05-5227Vrlfgpchz Result EncounterGeneric External Data ProviderNOMS External Department UnsolicitedStart: 08-13-2024 End: 63-74-9317Qxncojpym Result EncounterGeneric External Data ProviderNOMS External Department UnsolicitedStart: 07-31-2024 End: 91-60-6020Qvqnweh encounter Bhavana [place] Work Phone: noms BCP OBComment on above:Weight gain; Encounter for weight managementStart: 07-31-2024 End: 80-66-2401tdigozwqpdJNC RAMEYNot AvailableStart: 07-31-2024 End: 11-43-3813Svfsqk Maya [place] Work Phone: noms BCP OBStart: 07-31-2024 End: 92-57-8751Siseki Maya [place] Work Phone: NOED BCP OBStart: 07-30-2024 End: 44-15-0999Xexgyy outpatient visit 25 minutesJayme Schmidt MD Work Phone: NOSE CWM FMComment on above:Bipolar 1 disorder, depressed, mild (CMS/HCC) (Primary Dx); JEFF (generalized anxiety disorder) (CMS/HCC); Multiple sclerosis (CMS/HCC); Tinea pedis, unspecified laterality; Class 3 severe obesity due to excess calories without serious comorbidity with body mass index (BMI) of 40.0 to 44.9 in adult (CMS/HCC)Start: 07-30-2024 End: 43-50-0185egjgwnhvyyDGLP NADERERNot AvailableStart: 07-30-2024 End: 50-95-3371Ixisdn Dee Schmidt MD Work Phone: noms CWM FMStart: 07-30-2024 End: 73-79-9140Ptontg Dee Schmidt MD Work Phone: NOBD CWM FMStart: 07-29-2024 End: 27-52-4172ssmsbflborYidyAlexy Barclay MD Work Phone: [facility] CenterComment on above:Foot and physical therapyStart: 07-26-2024 End: 18-53-0719pffigmkttfMbaeAlexy Barclay MD Work Phone: [facility] CenterComment on above:Relapsing remitting multiple sclerosis (HCC) (Primary Dx)Start: 07-26-2024 End: 50-92-6551Yrpwjbflnenv consultation with Lanette Barclay MD Work Phone: [facility] CenterStart: 07-18-2024 End: 76-06-8706Fiihbtrxo Result EncounterGeneric External Data ProviderNOMS External Department UnsolicitedStart: 07-18-2024 End: 68-33-9491Syadfkeae Result EncounterGeneric External Data ProviderNOMS External Department UnsolicitedStart: 07-18-2024 End: 94-92-8188cjxfbwbyayIGFG R RENSELFacility:[facility] Hospitaltart: 07-18-2024 End: 36-20-9478Bqkxgkelsy hospital visit by Jose M Villaseñor (I-Stat/3t) Work Phone: RadiologyComment on above:Multiple sclerosis (HCC) [G35]Start: 07-15-2024 End: 65-22-7220Iymtzspnb Result EncounterGeneric External Data ProviderNOMS External Department UnsolicitedStart: 07-15-2024 End: 30-14-3125Mepidqjdc Result EncounterGeneric External Data ProviderNOMS External Department UnsolicitedStart: 07-15-2024 End: 26-57-4332ochezjjwthLyxpy 5 [place] Work Phone: Hematology/OncologyComment on above:Multiple sclerosis (HCC) (Primary Dx)Start: 07-08-2024 End: 27-21-0365Mpamsg outpatient visit 15 minutesAmy Leann [place] Work Phone: noMS BCP OBComment on above:Encounter for weight managementStart: 07-08-2024 End: 21-29-1348gdcpayrlwrKPY RAMEYNot AvailableStart: 07-08-2024 End: 85-86-0633Vluajf Maya [place] Work Phone: NOM[facility] BCP OBStart: 07-08-2024 End: 65-05-0706Bxqyvm Maya [place] Work Phone: NOM[facility] BCP OBStart: 06-24-2024 End: 57-96-1829Ivxhyd Dee Schmidt MD Work Phone: noMS CWM FMStart: 06-24-2024 End: 66-95-2186Rsyagp Dee Schmidt MD Work Phone: noMS CWM FMStart: 06-24-2024 End: 25-58-9553Akqgoh outpatient visit 25 minutesJayme Schmidt MD Work Phone: noms CW FMComment on above:Bipolar 1 disorder, depressed, mild ([facility]/HCC) (Primary Dx); JEFF (generalized anxiety disorder) (CMS/[facility]); Multiple sclerosis ([facility]); Irritable bowel syndrome with diarrhea; Class 3 severe obesity due to excess calories without serious comorbidity with body mass index (BMI) of 40.0 to 44.9 in adult ([facility]/HCC)Start: 06-24-2024 End: 14-30-3220mnslsbtojvGWYP Aga AvailableStart: 06-10-2024 End: 59-19-9157Qfbzqu flowsheetCorey Butch DO Work Phone: noms BCP OBStart: 06-10-2024 End: 96-07-5450Lxgdjh flowsheetCorey Butch DO Work Phone: NODZ BCP OBStart: 06-10-2024 End: 98-91-4351Hetqyh outpatient visit 15 minutesCorey Butch DO Work Phone: noms BCP OBComment on above:PCOS (polycystic ovarian syndrome)Start: 06-10-2024 End: 12-63-1453rxxnvnnlraOYDRK FAZIONot AvailableStart: 06-05-2024 End: 99-20-2647Lnkqqk flowsheetHisocorro Isabel MD Work Phone: noms CI ENTStart: 06-05-2024 End: 31-98-4553Nieumo flowsheetJonathan Isabel MD Work Phone: noms CI ENTStart: 06-05-2024 End: 70-70-6224Zzoiwa outpatient visit 25 minutesJonathan Isabel MD Work Phone: noMS CI ENTComment on above:Chronic mastoiditis, left (Primary Dx); Other specified hearing loss of left ear, unspecified hearing status on contralateral side; Bilateral impacted cerumenStart: 06-05-2024 End: 52-80-1124emoyensgqzZIKXPV Roberto HERRERAMISNot AvailableStart: 05-28-2024 End: 14-24-5629GydjfjFaoy Naderer MD Work Phone: noMS CWM FMComment on above:Multiple sclerosis (CMS/HCC)Start: 05-08-2024 End: 99-16-8405ujdjnpakufUkxxaji Chiledymadia FUEL MANAGEMENT HANDLER.[employer] Work Phone: mell[facility] CenterComment on above:Doctors noteStart: 04-25-2024 End: 48-89-8727Czvrveceo encounterAutumn Barclay MD Work Phone: [facility] CenterComment on above:Appointment (m for patient to call so we can get er scheduled fora follow up in jul with dr barclay) Start: 04-24-2024 End: 63-67-9096ugwiujmmekCqlcAlexy Barclay MD Work Phone: NeurologyComment on above:Chronic fatigue syndrome (Primary Dx); Multiple sclerosis (HCC)Start: 04-24-2024 End: 42-57-9489Jfwyfgekdbvt consultation with Lanette Barclay MD Work Phone: NeurologyStart: 04-18-2024 End: 45-51-7045VsjuegRyhd Naderer MD Work Phone: noms CWM FMComment on above:Multiple sclerosis (CMS/HCC)Start: 04-16-2024 End: 77-29-0198Giykmltai Result EncounterGeneric External Data ProviderNOMS External Department UnsolicitedStart: 04-16-2024 End: 81-60-2503Bhukjqiig Result EncounterGeneric External Data ProviderNOMS External Department UnsolicitedStart: 03-25-2024 End: 19-86-2914zytjghffsmRkwedop Chiledymadia FUEL MANAGEMENT HANDLER.[employer] Work Phone: mellen CenterComment on above:Doctors note for work Start: 03-18-2024 End: 74-71-4633gdmjsgacujVQF RAMEYNot AvailableStart: 03-18-2024 End: 43-16-0551Wbqadx outpatient visit 15 minutesZoe Leann HADLEY Work Phone: [facility] OBComment on above:Well woman exam with routine gynecological exam; PCOS (polycystic ovarian syndrome)Start: 03-18-2024 End: 85-18-4048Tgdouer encounter procedureZoe HADLEY Work Phone: [facility] Work Phone: Start: 03-18-2024 End: 10-77-9359Lqecvj Dee Schmidt MD Work Phone: [facility] FMStart: 03-18-2024 End: 99-61-5994Hxrsnievaristo Schmidt MD Work Phone: [facility] FMStart: 03-18-2024 End: 37-75-4680Rbkpgyknt Result EncounterZoe HADLEY Work Phone: [facility] External Department UnsolicitedStart: 03-18-2024 End: 84-35-2964Jlwjez outpatient visit 25 minutesJayme Schmidt MD Work Phone: [facility] FMComment on above:Bipolar 1 disorder, depressed, mild (CMS/HCC) (Primary Dx); JEFF (generalized anxiety disorder) (CMS/HCC); Migraine without aura and without status migrainosus, not intractable (CMS/HCC); Multiple sclerosis (CMS/HCC); Irritable bowel syndrome with both constipation and diarrheaStart: 03-18-2024 End: 27-84-5320jzaicedsdkEFZP NADERERNot AvailableStart: 03-12-2024 End: 91-81-9212ZwalcwWnzl Naderer MD Work Phone: noms CWM FMComment on above:Multiple sclerosis (CMS/HCC)Start: 02-19-2024 End: 43-17-1396Kwngalivklvs consultation with Hellen Gannon APRN.CNP Work Phone: Spine CenterStart: 02-19-2024 End: 84-44-5899xbfvizmkvtYqvadlAlona Gannon APRN.[employer] Work Phone: spine CenterComment on above:Radiculopathy, lumbar region (Primary Dx); Lumbar spondylosisStart: 01-17-2024 End: 32-77-0574qhhptknbriXpivp 2 Raissa Work Phone: Hematology/OncologyComment on above:Multiple sclerosis (HCC) (Primary Dx)Start: 12-29-2023 End: 40-71-9455Ytraonb encounter Tom Gannon FUEL MANAGEMENT HANDLER.[employer] Work Phone: spine InstituteComment on above:Radiculopathy, lumbar region (Primary Dx); Spinal stenosis, lumbar region, without neurogenic claudication; Lumbar spondylosis; Multiple sclerosis (HCC)Start: 12-19-2023 End: 72-58-1545loesnflbwoNV Jayme Schmidt Work Phone: [facility] Work Phone: Start: 12-19-2023 End: 79-17-2125Csdcmkh encounter procedureMD Jayme Timnaomi Work Phone: [facility] [place] Work Phone: Start: 11-14-2023 End: 20-40-6722Akzfcbbzp Result EncounterGeneric External Data ProviderNOMS External Department UnsolicitedStart: 11-14-2023 End: 42-98-2588Gfismqzxe Result EncounterGeneric External Data ProviderNOMS External Department UnsolicitedStart: 11-14-2023 End: 99-35-6967Ohlwefycct hospital visit by physiciani [facility] (I-Stat/1.5t) RadiologyComment on above:Multiple sclerosis (HCC) [G35]Spinal stenosis of lumbar region without neurogenic claudication [M48.061]Start: 10-31-2023 ambulatoryDesiree Angela MOHAMUD.[employer] Work Phone: [facility] MAINStart: 62-40-6979Smdeqmk encounter procedureDesiree Angela FUEL MANAGEMENT HANDLER.[employer] Work Phone: mellen CenterComment on above:Sciatica ReferralStart: 71-85-6796eatplhlmndCcuvslt Chizmadia FUEL MANAGEMENT HANDLER.[employer] Work Phone: mellen CenterComment on above:SciaticaStart: 09-25-2023 End: 80-18-1609Lsccvmo encounter procedureMD Jayme Julissa Work Phone: [facility] [place] Work Phone: Start: 08-29-2023 End: 63-09-1215Lhrvgnm encounter procedureDesiree Chizmadia FUEL MANAGEMENT HANDLER.[employer] Work Phone: mellen CenterComment on above:Spinal stenosis of lumbar region without neurogenic claudication (Primary Dx); Multiple sclerosis (HCC)Start: 04-08-2023 End: 60-45-7241ayptpxqmxaLxrjvu Vicky Other [employer] Other Start: 94-08-5425Ncyqza outpatient visit 15 minutes Erica DyEulogioG [facility] Care ClydeStart: 01-28-2023 End: 51-90-1675mggpuliatqAspwub Vicky Other [employer]Space Other Start: 96-83-1816Qbjvjg outpatient visit 15 minutes Erica DyohFPG [facility] ClydeStart: 01-23-2023 End: 27-08-1816Xxrbfypcgu hospital visit by Jose M Villaseñor (I-Stat/3t) Work Phone: RadiologyComment on above:Multiple sclerosis (HCC) [G35]Start: 01-11-2023 End: 49-73-0925mhguvcnzgzXymdg 2 Raissa Work Phone: Hematology/OncologyComment on above:Multiple sclerosis (HCC) (Primary Dx)Start: 11-20-2022 End: 82-58-2682hurvrfcocjNplal Keller Other [employer] Other Start: 60-74-2999Vrxnjy outpatient visit 25 minutes Carol Ann LeesFPJoel [facility] Care ClydeStart: 88-44-6549RmfnqaEmpzffp Chizmadia FUEL MANAGEMENT HANDLER.[employer] Work Phone: mellen CenterComment on above:Refill RequestStart: 30-50-3550Naekm Tiffany Galindo Research CoordinatorWinnebago CenterStart: 09-02-2022 End: 33-44-7935Fwdztdc encounter procedureDesiree Chizmadia FUEL MANAGEMENT HANDLER.[employer] Work Phone: [facility] CenterComment on above:Multiple sclerosis (HCC) (Primary Dx); Encounter for long-term (current) use of medicationsStart: 07-27-2022 End: 15-52-0934amkqjvjqezNggfgb Dymond Other [facility] [employer] Other Start: 82-55-9979Ystjzp outpatient visit 25 minutes Erica PerryFPJoel [facility] Care ClydeStart: 72-04-5364pwtmuoliaaYgjsfcy Chizmadia FUEL MANAGEMENT HANDLER.[employer] Work Phone: mellen CenterComment on above:Question regarding CD19 ABSOLUTE COUNTStart: 07-13-2022 End: 76-09-0225eblzjsyzhxBvlcu 5 [place] Work Phone: Hematology/OncologyComment on above:Multiple sclerosis (HCC) (Primary Dx)Start: 07-05-2022 End: 24-23-9437ngtkjjkzkrPjnqfzj R NILLFacility:GS BellevueStart: 07-05-2022 End: 66-98-0769Orkgfwr encounter procedureMichael R NILL General Surgery Nill/Said Annmarie Start: 97-73-5137Cegnjqnrw for preprocedural laboratory examinationDR YUSUF [place] HospitalStart: 06-22-2022 End: 30-85-3274vlovsntmeaBJ YUSUF NILLFacility:R8Vfurq: 06-18-2022 End: 69-42-8542meyqxamuuqFA YUSUF NILLFacility:D8Jngwn: 06-18-2022 End: 26-17-1022Wezmpckyj for preprocedural laboratory examinationDR YUSUF NILL Facility:X9Cncei: 05-24-2022 End: 96-82-1792bvmhidhnxmWSDI NADERERFacility:[facility] Hospitaltart: 05-24-2022 End: 01-81-4506Gqazecp encounter procedureMichael R NILL General Surgery Nill/Said Annmarie Start: 80-17-6004Bedrqezxw for general adult medical examination without abnormal findingsDR JAYME Herrera [facility] Start: 05-06-2022 End: 13-15-2702krwfxwznwyXU JAYME Herrera [facility]ENTERRFacility:A5Oihtc: 05-06-2022 End: 42-42-0357Nkolphatp for general adult medical examination without abnormal findingsDR JAYME Herrera [facility] CENTERRFacility:A7Kxrcy: 60-68-4468abbpdgabpcThffvnn R NILL Facility:[facility] Hospitaltart: 91-38-4019jiziwvgiafEjyp A SteinmetzFacility:Jeannine Schafer [facility]ITALtart: 11-14-2021 End: 20-50-8908Jfdgolvaf department patient visitPARSONS [facility] Facility:[facility] Hospitaltart: 70-24-6814IakifvBvbtFrederick Barclay MD Work Phone: mellen CenterComment on above:Urine BacteriaStart: 2021 End: 53-15-6000Fhpwrggcjl hospital visit by Jose M Villaseñor (I-Stat/3t) Work Phone: RadiologyComment on above:Multiple sclerosis (HCC) [G35]Start: 85-55-3604tenblbvjunGxysmxh Chizmadia APRN.CNP Work Phone: mellen CenterComment on above:Reply to bladder issues Start: 09-23-2021 End: 64-89-4761ufaafibkfpWMZH THIERRY LOMELIRFacility:[facility] Procedures DateProcedureProcedure DetailPerforming ClinicianStart: 75-60-3685WKH CBC WITH AUTO DIFFJenniferc Julissa BENÍTEZ Work Phone: Start: 37-53-3111ZJ FOOT LT MIN 3VGeneric External Data ProviderStart: 85-11-7254QDW CBC W AUTO DIFF BLDGeneric External Data ProviderStart: 31-08-0444Rwzmh count complete auto&auto difrntl wbcDesiree Chizmadia FUEL MANAGEMENT HANDLER.[employer] Work Phone: Start: 63-05-4641SBBGP & CERVICAL SPINE MRI DISCRETE DATACcf ProviderStart: 28-41-7739Cmo brain brain stem w/o w/contrast material Jhon Garcia MD Work Phone: Start: 70-97-3021GJ FOOT LT MIN 3VGeneric External Data ProviderStart: 77-59-0285QV FOOT LT MIN 3VGeneric External Data Provider Start: 32-19-1397Dgwcfcqerim durationGeneric External Data ProviderStart: 26-96-2545FU FOOT LT MIN 3VGeneric External Data ProviderStart: 33-35-9933QQI CBC WITH AUTO DIFFGeneric External Data ProviderStart: 08-98-3127XA DEXA AXIAL SKELETONJayme Schmidt MD Work Phone: Start: 80-98-8946ZQ CHEST 2VGeneric External Data ProviderStart: 80-05-1695TDQ CBC WITH AUTO DIFFGeneric External Data Provider Start: 70-97-6900MJX CERVICAL SPINE WO/W IVCONGeneric External Data Provider Start: 71-31-8469Kbo spinal canal cervical w/o & w/contr Jenny Barclay MD Work Phone: Start: 73-18-0435CTW THORACIC SPINE WO/W IVCONGeneric External Data ProviderStart: 87-47-0749TKR CBC W AUTO DIFF BLDGeneric External Data ProviderStart: 67-14-2349Bbymg count complete auto&auto difrntl wbcDesiree Chizmadia FUEL MANAGEMENT HANDLER.[facility] Work Phone: Start: 17-98-0604IS PELVIS W/ TRANSVAGINALGeneric External Data ProviderStart: 52-42-6473XUY,APTIMA HPV,AGE GDLNGeneric External Data ProviderStart: 67-58-4045Xmqyj count complete auto&auto difrntl wbcDesiree Chizmadia FUEL MANAGEMENT HANDLER.[facility] Work Phone: Start: 48-84-1454Zlmyc chest X-rayMD Jayme Schmidt Work Phone: Start: 62-77-3810Sqd brain brain stem w/o w/contrast materialDesiree Chizmadia FUEL MANAGEMENT HANDLER.[facility] Work Phone: Start: 86-33-7119CGS BRAIN WO/W IVCONGeneric External Data ProviderStart: 95-85-7572LXA LUMBAR SPINE WO IVCONGeneric External Data ProviderStart: 18-47-8143JTCEF & CERVICAL SPINE MRI DISCRETE DATACcf Provider Start: 05-14-5169Ceh brain brain stem w/o w/contrast materialDesiree Chizmadia FUEL MANAGEMENT HANDLER.[facility] Work Phone: Start: 99-18-0484AlpnapcizcvPwuijrd NILL Start: 93-58-6154CuhgbhmvrrrnuaibvvezngbqxlWundkhb NILL Start: 02-14-1525AQFOM & CERVICAL SPINE MRI DISCRETE DATACcf ProviderStart: 59-06-9578Uhx brain brain stem w/o w/contrast material Yoly Chizmadia FUEL MANAGEMENT HANDLER.[facility] Work Phone: Start: 96-64-9250Xjsqu depression screening assessment Yoly Chizmadia FUEL MANAGEMENT HANDLER.[facility] Work Phone: CholecystectomyMichael NILL EsophagogastroduodenoscopyMichael NILL Removal of pilonidal cystMichael NILL TonsillectomyMichael NILL Plan of Treatment DateCare ActivityDetailAuthorStart: 07-21-2025 End: 17-77-2631pujhdwjuko25/29/2025 10:30 AM [facility] Hematology/Oncology [address] [place] [address] [place] [address] [facility] Hematology/OncologyComment on above:OcrevusStart: 04-02-2025 End: 59-44-3404Tyttqfy encounter pspljmdom17/10/2025 11:00 AM EDT Office Visit NOMS [facility] [address] [place] [phone] Jayme Schmidt MD [address] [place] [address] NOMS John FMStart: 10-66-5975Imigvrclg vaccinationNOWY HealthcareStart: 02-25-2025 End: 08-57-1235Xkxvw metabolic 1998 panel - Serum or PlasmaBasic metabolic panel Lab Routine Annual physical exam Expected: 02/25/2025 (Approximate), Expires: 02/25/2026NOWY HealthcareComment on above:Expected: 02/25/2025 (Approximate), Expires: 02/25/2026Start: 02-25-2025 End: 85-58-1854YBS W Auto Differential panel - BloodCBC and differential Lab Routine Annual physical exam Expected: 02/25/2025 (Approximate), Expires: 0 02/25/2026NOMS HealthcareComment on above:Expected: 02/25/2025 (Approximate), Expires: 02/25/2026Start: 02-25-2025 End: 93-49-2286Krjjsxvvvm A1c/Hemoglobin.total in BloodHemoglobin A1c Lab Routine Annual physical exam Expected: 02/25/2025 (Approximate), Expires: 02/25/2026NOMS HealthcareComment on above:Expected: 02/25/2025 (Approximate), Expires: 02/25/2026Start: 02-25-2025 End: 19-05-8352Sproocy function 2000 panel - Serum or PlasmaHepatic function panel Lab Routine Annual physical exam Expected: 02/25/2025 (Approximate), Expires: 02/25/2026NOWY HealthcareComment on above:Expected: 02/25/2025 (Approximate), Expires: 02/25/2026Start: 02-25-2025 End: 08-15-9726Ydizmku, fastingInsulin, fasting Lab Routine Insulin resistance Expected: 02/25/2025 (Approximate), Expires: 02/25/2026[facility] Work Phone: Comment on above:Expected: 02/25/2025 (Approximate), Expires: 02/25/2026Start: 02-25-2025 End: 27-47-9927Xdttf 1996 panel - Serum or PlasmaLipid panel Lab Routine Annual physical exam Expected: 02/25/2025 (Approximate), Expires: 02/25/2026NOWY HealthcareComment on above:Expected: 02/25/2025 (Approximate), Expires: 02/25/2026Start: 02-25-2025 End: 91-41-1334Ercbbwmpyvs [Units/volume] in Serum or PlasmaTSH Lab Routine Annual physical exam Expected: 02/25/2025 (Approximate), Expires: 02/25/2026[facility] HealthcareComment on above:Expected: 02/25/2025 (Approximate), Expires: 02/25/2026Start: 02-25-2025 End: 36-64-9585Jtwkkzn encounter /05/2025 1:00 PM EDT Office Visit NOMS [facility] [address] [place] [phone] Jayme Schmidt MD [address] [place] [phone] NOMS MAHIN FMStart: 01-28-2025 End: 51-56-3577Myfhaik encounter dcggjvejm49/08/2025 1:00 PM EDT Office Visit NOMS CWM FM [address] [place] [address] Jayme Schmidt MD [address] [place] [address] NOMS CWM FMStart: 01-28-2025 End: 49-25-7737Xmzwmf-up sqebkfggl03/08/2025 10:45 AM EDT [address] [address] Yoly Miller APRN.[employer] [address] [place] [place], [place] [id number] Follow UpWinnebago CenterComment on above:Follow UpStart: 01-13-2025 End: 72-45-1396LG25 ABSOLUTE VYDYUSX11 ABSOLUTE COUNT Lab Routine Multiple sclerosis (HCC) Expected: 01/13/2025, Expires: 04/14/2025leveland ClinicComment on above:Expected: 01/13/2025, Expires: 04/14/2025Start: 01-13-2025 End: 28-78-0636Elugvncwcjifg metabolic 2000 panel - Serum or PlasmaCOMPREHENSIVE METABOLIC PANEL Lab Routine Multiple sclerosis (HCC) Expected: 01/13/2025, Expires: 04/14/2025[facility] Work Phone: Comment on above:Expected: 01/13/2025, Expires: 04/14/2025Start: 01-13-2025 End: 87-95-7767ZoV [Mass/volume] in Serum or PlasmaIMMUNOGLOBULIN G Lab Routine Multiple sclerosis (HCC) Expected: 01/13/2025, Expires: 04/14/2025leveland ClinicComment on above:Expected: 01/13/2025, Expires: 04/14/2025Start: 01-13-2025 End: 30-65-3287egvivwdvbh17/23/2025 9:00 AM EDT [facility] Hematology/Oncology [address] [place] [address] [place] [address] [facility] Hematology/OncologyComment on above:OcrevusStart: 11-28-2024 End: 76-78-4976Pffsnwr encounter rgifjyylo07/08/2025 2:50 PM EDT Office Visit NOMS [facility] OB [address] [place] [phone] Zoe Noriega, PA [address] [facility] [address] [place], [facility]11 ArrivedNOLOS ANGELES [facility] OBComment on above:ArrivedStart: 10-23-2024 End: 62-26-9152Ybmxukn encounter iefnivrqr11/02/2025 9:30 AM EDT Office Visit NOMS [facility] OB [address] [place] [address] Zoe Noriega, PA [address] [place] [address] [place] [address] NOMS [facility] OBStart: 10-22-2024 End: 02-00-3973Tdueoth encounter /01/2025 2:40 PM EDT Appointment Radiology [address] [place] [address] MRIBRAIN WO/W IVCON RadiologyComment on above:MRI BRAIN WO/W IVCONStart: 10-22-2024 End: 50-18-4209QC Brain WO and W contrast IVMRI BRAIN WO/W IVCON Radiology Routine Relapsing remitting multiple sclerosis (HCC) Expected: 10/22/2024, Expires: 08/25/2025[facility] Work Phone: Comment on above:Expected: 10/22/2024, Expires: 08/25/2025Start: 09-25-2024 End: 10-66-4685Mxebyjf encounter yobusqwsz64/05/2025 2:30 PM EST Office Visit NOMS [facility] OB [address] [place] [address] Zoe Noriega, PA [address] [facility] [place] [address] NOMS BCP OBStart: 09-11-2024 End: 19-52-4690Shwdofu encounter /19/2025 9:40 AM EST Office Visit NOMS [facility] [address] [place] [phone] Jonathan Isabel MD [address] [place] [address] NOMS CI ENTStart: 09-04-2024 End: 79-33-1932Trzdgssq Upruyoz0609/04/2024 8:45 AM EST Clinical Support NOMS [facility] AUD [address] [place] [address] Kristin Johntson, [facility] [address] [facility] [place] [address] NOMS CI AUDStart: 08-28-2024 End: 06-99-5864Xlokxwk encounter procedureNOMS BCP OBComment on above:Arrived Start: 07-31-2024 End: 23-96-8182Pcbxnhg encounter procedureNOMS BCP OBComment on above:Arrived Start: 07-30-2024 End: 45-43-1518Yjhfyxv encounter procedureNOMS CWM FMComment on above:Arrived Start: 07-26-2024 End: 39-82-5164Iqttyf-up /03/2025 2:30 PM EST [facility] [address] [place] [address] Autumn Barclay MD [address] [place] [address] MS follow up pt having numbness and bowel changesWinnebago CenterComment on above:MS follow up pt having numbness and bowel changesStart: 07-18-2024 End: 00-58-8659Djjsmhh encounter jaufukkal84/26/2024 1:20 PM EST Appointment Radiology [address] [place] [address] MRITHORACIC SPINE WO/W IVCONRadiologyComment on above:MRI THORACIC SPINE WO/W IVCONStart: 61-76-1132Rlnomlwzld hospital visit by qosjgtkfv63/26/2024 1:20 PM EST Hospital Encounter Radiology [address] [address] Multiple sclerosis (HCC) [G35]RadiologyComment on above:Multiple sclerosis (HCC) [G35] Start: 07-15-2024 End: 81-51-9138XG05 ABSOLUTE COUNTSheltering Arms HospitalComment on above:Expected: 07/15/2024, Expires: 10/14/2024Start: 07-15-2024 End: 70-42-0909Isgaoadihssyd metabolic 2000 panel - Serum or PlasmaProtestant Deaconess Hospital Work Phone: Comment on above:Expected: 07/15/2024, Expires: 10/14/2024Start: 07-15-2024 End: 16-89-9688TtM [Mass/volume] in Serum or PlasmaSheltering Arms HospitalComment on above:Expected: 07/15/2024, Expires: 10/14/2024Start: 07-15-2024 End: 43-81-7261tfiruqvxqr17/23/2024 9:00 AM EST [facility] Hematology/Oncology [address] [place] [address] [place] [address] [facility] Hematology/OncologyComment on above:OcrevusStart: 07-08-2024 End: 70-41-9609Zsbnpzz encounter procedureNOMS BCP OBComment on above:Arrived Start: 06-24-2024 End: 43-57-0437Ogxistm encounter procedureNOMS CWM FMComment on above:Arrived Start: 06-17-2024 End: 77-06-7476Rivezmu encounter ntpnmcosr94/25/2024 8:30 AM EST Office Visit NOMS CWM FM [address] [place] [address] Jayme Schmidt MD [address] [place] [address] NOMS CWM FMStart: 06-10-2024 End: 14-83-2910Aacrvvd encounter mwujvohuj91/18/2024 1:50 PM EST Office Visit NOMS BCP OB [address] [place] [address] Casey Rae, DO [address] [place] [address] NOMS BCP OBStart: 06-05-2024 End: 85-10-8193Tpetjdn encounter abfzczkes09/13/2024 1:00 PM EST Office Visit [facility] [address] [facility] [[email or web address] [address] [place] [address] Jonathan Isabel MD [address] [facility] [address] [place] [address] NOMS CI ENTStart: 05-27-2024 End: 79-89-3112Hikshb-up tvqreospt15/04/2024 4:30 PM EST [facility] [address] [place] [phone] Marielle Gannon, FUEL MANAGEMENT HANDLER.[employer] [address] [place] [address] [phone] ( Fax) 3 mo virtual follow upShewitt CenterComment on above:3 mo virtual follow up Start: 05-13-2024 End: 34-86-5210Wfanohr encounter /21/2024 11:10 AM EDT Office Visit NOMS BCP OB [address] [place] [phone] Casey Rae, DO [address] [place] [address] NOMS BCP OBStart: 05-01-2024 End: 17-07-6635LW Cervical spine WO and W contrast IVMRI CERVICAL SPINE WO/W IVCON Radiology Routine Multiple sclerosis (HCC) Expected: 05/01/2024, Expires: [address] [place] [address] Work Phone: Comment on above:Expected: 05/01/2024, Expires: 05/24/2025Start: 05-01-2024 End: 94-00-1512SY Thoracic spine WO and W contrast IVMRI THORACIC SPINE WO/W IVCON Radiology Routine Multiple sclerosis (HCC) Expected: 05/01/2024, Expires: 05/24/2025leveland ClinicComment on above:Expected: 05/01/2024, Expires: 05/24/2025Start: 04-23-2024 End: 69-13-4176Hspfvfw encounter bjfnoeizo46/01/2024 1:50 PM EDT Office Visit NOM[facility] OB [address] [place] [address] Casey Rae, DO [address] [facility] [address] [place], [place] [address] NOMS BCP OBStart: 04-01-2024 End: 09-53-1642Nrirjuiuubbq / ancillary services inxnmxuhrl48/09/2024 10:00 AM EDT Ancillary Procedure [facility] OB [address] [place] [phone] [facility] OBStart: 50-32-1947Ijpos-19 Vaccine ( season)Covid-19 Vaccine ( season)[facility]: 03-24-2024 Covid-19 Vaccine ( season)Covid-19 Vaccine ( season) [facility]: 58-40-0933Ayijdwazd vaccinationProMedica Bay Park Hospitaltart: 03-18-2024 End: 00-53-1017TB for pregnancyUS PELVIS-TRANSVAG IF INDICATED Imaging Routine PCOS (polycystic ovarian syndrome) Expected: 03/18/2024 (Approximate), Expires: 03/18/2025NOMS HealthcareComment on above:Expected: 03/18/2024 (Approximate), Expires: 03/18/2025Start: 03-18-2024 End: 24-61-8838Njokphq encounter procedureNOMS CWM FMComment on above:Arrived Start: 02-19-2024 End: 10-88-8196qlfijgdlrq74/29/2024 3:00 PM EDT [facility] [address] [place] [address] Marielle Gannon, FUEL MANAGEMENT HANDLER.[employer] [address] [place] [address] 8 week f/u with provider.Spine CenterComment on above:8 week f/u with provider. Start: 01-17-2024 End: 98-16-2406YZ65 ABSOLUTE COUNTProtestant Deaconess Hospital Work Phone: Comment on above:Expected: 01/17/2024, Expires: 04/17/2024Start: 01-17-2024 End: 84-91-9332zsrmaxxorj38/26/2024 9:00 AM EDT [facility] Hematology/Oncology [address] [place] [address] [place] [address] [facility] Hematology/OncologyComment on above:OcrevusStart: 12-29-2023 End: 77-94-2928Qjuanhg encounter bivdislwi89/07/2024 1:50 PM EDT Office Visit [facility] [address] [place] [address] Marielle Gannon, FUEL MANAGEMENT HANDLER.[employer] [address] [place] [address] slipped discSpine InstituteComment on above:slipped disc Start: 06-81-4030Bkoorrpobn Health ScreeningBehavioral Health ScreeningProMedica Bay Park Hospitaltart: 98-45-1310Ofzkzgurpl AssessmentDepression AssessmentCleSumma Health Barberton Campustart: 94-73-3166Houkm-19 Vaccine ( season)Covid-19 Vaccine ( season)[facility]: 04-93-0835Etdpjtutv vaccinationProMedica Bay Park Hospitaltart: 01-11-2023 End: 09-70-2267IN50 ABSOLUTE COUNTProtestant Deaconess Hospital Work Phone: Comment on above:Expected: 01/11/2023, Expires: 03/13/2023Start: 56-11-8152Vkfta depression screening assessmentDEPRESSION SCREENINGProMedica Bay Park Hospitaltart: 19-84-8738WHQQGOGARB ASSESSMENTDEPRESSION ASSESSMENTProMedica Bay Park Hospitaltart: 07-13-2022 End: 83-46-3107GX45 ABSOLUTE COUNTProtestant Deaconess Hospital Work Phone: Comment on above:Expected: 07/13/2022, Expires: 09/12/2022Start: 22-64-2677Xvetmrkmi vaccinationProMedica Bay Park Hospitaltart: 11-01-2021 End: 19-53-1309Pyfmpwfr identified in Urine by CultureURINE CULTURE Microbiology Routine Multiple sclerosis ([facility]) Expected: 11/01/2021, Expires: 01/01/2022 [facility] Work Phone: Comment on above:Expected: 11/01/2021, Expires: 01/01/2022tart: 11-01-2021 End: 42-79-6237CBODEHKFJC, DIPSTICK ONLYURINALYSIS, DIPSTICK ONLY Lab Routine Multiple sclerosis ([facility]) Expected: 11/01/2021, Expires: 01/01/2022[facility] Work Phone: Comment on above:Expected: 11/01/2021, Expires: 01/01/2022tart: [id number] ASSESSMENTDEPRESSION ASSESSMENTProMedica Bay Park Hospitaltart: [id number]-19 VACCINE (3 - Booster for Pfizer series)COVID-19 VACCINE (3 - Booster for Pfizer series)[facility]: 57-68-5961Lecxc microalbumin profileDTaP,Tdap,Td Vaccine (7 - Td or Tdap)[facility]: 87-05-0523SSP TESTINGPAP TESTINGProMedica Bay Park Hospitaltart: 15-15-4940Nhzxpnrhm for malignant neoplasm of cervixProMedica Bay Park Hospitaltart: 69-40-5571Fruyy microalbumin profileDTAP,TDAP,TD (1 - Tdap)[facility]: 92-89-2287Isyicym Screening Anxiety ScreeningProMedica Bay Park Hospitaltart: 94-76-3580LATNGUYTN SCREENING (18-24) CHLAMYDIA SCREENING (18-24)[facility]: 66-85-7605Qwyoycvodq Screening Depression ScreeningProMedica Bay Park Hospitaltart: 42-93-2739KY (GONORRHEA) SCREENING (18-24)GC (GONORRHEA) SCREENING (18-24)[facility]: 72-28-5093EDN Vaccine (1 - 3-dose series)HPV Vaccine (1 - 3-dose series)[facility]: 75-64-6503ACCF TO ADULT TRANSITION ANNUAL ASSESSMENTPEDS TO ADULT TRANSITION ANNUAL ASSESSMENTProMedica Bay Park Hospitaltart: 18-40-4031ZZKH TO ADULT TRANSITION INITIAL DISCUSSIONPEDS TO ADULT TRANSITION INITIAL DISCUSSIONShel[facility] Start: 81-77-3523SAA VACCINE (1 - 2-dose series)HPV VACCINE (1 - 2-dose series) [facility]: 66-21-2832DOHQALQRIDBGB B: Consider based on risk (1 of 2 - Risk Bexsero 2-dose series)MENINGOCOCCAL B: Consider based on risk (1 of 2 - Risk Bexsero 2-dose series)[facility]: 71-39-4834VLJ VACCINE (1 - 2- dose series)HPV VACCINE (1 - 2-dose series)[facility]: 2002 COVID-19 VACCINE (1)COVID-19 VACCINE (1)[facility]: 1997 HEPATITIS B (1 of 3 - 3-dose series)HEPATITIS B (1 of 3 - 3-dose series) [facility] Cervical or vaginal smear or scraping studyPap Smear Pathology and Cytology Routine Well woman exam with routine gynecological exam Ordered: 03/18/2024[facility] Work Phone: comment on above:Ordered: 03/18/2024 End: 37-41-9189Pyk brain brain stem w/o w/contrast materialMRI BRAIN WO/W IVCON Radiology Routine Multiple sclerosis (HCC) Encounter for long-term (current) use of medications 1 Occurrences starting 09/02/2022 until 10/02/2023[facility] Work Phone: Comment on above:1 Occurrences starting 09/02/2022 until 10/02/2023 End: 71-39-7444Sml spinal canal cervical w/o & w/contr matrlMRI CERVICAL SPINE WO/W IVCON Radiology Routine Multiple sclerosis (HCC) Encounter for long-term (current) use of medications 1 Occurrences starting 09/02/2022 until 10/02/2023 [facility] Work Phone: Comment on above:1 Occurrences starting 09/02/2022 until 10/02/2023 End: 65-58-6875Ulc spinal canal lumbar w/o contrast materialMRI LUMBAR SPINE WO IVCON Radiology Routine Spinal stenosis of lumbar region without neurogenic aftab dication 1 Occurrences starting 08/29/[address] [place] [address] Work Phone: Comment on above:1 Occurrences starting 08/29/2023 until 09/27/2024 End: 93-38-8819GN Lumbar spine 3 ViewsXR LUMBAR GENERAL 3V AP/LAT/L5-S1 Radiology Routine Radiculopathy, lumbar region Spinal stenosis, lumbar region, without neurogenic claudication Lumbar spondylosis 1 Occurrences starting 12/29/[address] [place] [address] Work Phone: Comment on above:1 Occurrences starting 12/29/[address] [place] [address] Immunizations Immunization DateImmunizationNotesCare CpkafeetFjdklztr13-28-3784OORU-EjR-4 (COVID-19) mRNA BNT-162b2 vaxMichael NILL [facility]vueComment on above:Result Comment: 2022-05-24: VVNET58-77-2051IKIL-VsX-9 (COVID-19) mRNA BNT-162b2 vax Yusuf NILL [facility] BellevueComment on above:Result Comment: 2022-05-24: XZMHG72-37-4660zcgwfyw toxoid, reduced diphtheria toxoid, and acellular pertussis vaccine, Don Schmidt MD Work Phone: [facility] CenterJmghywysch09-62-1229bpsxkiblm virus vaccineMarc Julissa BENÍTEZ Work Phone: [facility] Healthcare Payers DatePayer CategoryPayerPolicy [id number]-pay2024Medicaid (Managed Care)[facility] [id number] [id number] Member Subscriber Plan / Payer (Effective 2018-2023) Name: Natalie Jaquez Relation to Subscriber: Child Name: BLAKE JAQUEZ Date of : 1960 Address: [address] [place] [address] Payer ID: Not on file Type: Not on file Address: [address] [place] [id number] Unknown[employer]HEM BLUE CARD PPO OOS [id number] 2017-Present [phone] [address] [place], [place] [id number]0-8122Pyidrgn97-58-8669Obwfrwr [id number] 2.840.1.833615.3.57[id number] 2.0.1.211730.3.57[id number] 2.840.1.522894.3.57[id number] 2.0.1.939356.3.57[id number] 2.0.1.398092.3.579.2.[id number] 2.0.1.469004.3.579.2.86216-40-0997Touqrpi21278835 2.0.1.199012.3.579.[id number] 2.0.1.368518.3.57[id number] 2..1.580968.3.57[id number] 2.0.1.295395.3.57[id number] 2.0.1.180811.3.57[id number] 2.840.1.669725.3.579.2.[id number] 2.840.1.360596.3.57[id number] 2.840.1.051944.3.579.2.914135-35-1152Cgxejql0703746 2..840.1.700572.3.579.2.302687-43-7303Ueyhibv4714120 2.16.840.1.675231.3.579.2.264801-65-9107Ntmqufq3180432 2..840.1.592929.3.579.2.977413-55-7796Qnyxkeo6238115 2..840.1.363008.3.579.2.[id number] 2.0.1.537417.3.579.2.981779-13-7348Dfqsyii8950839 2.0.1.376891.3.579.2.[id number] 2.0.1.910728.3.57[id number] 2.0.1.548774.3.579.[id number] Health InsuranceAetna Insurance [id number] 2..1.210327.3.579.2.531 Social History DateTypeDetailFacilityStart: 09-09-2013 End: 37-90-9222Imeplbj smoking status NHISNever smoked tobaccoSheltering Arms Hospital Start: 09-09-2013 End: 76-08-5568Kdmgbha use and exposureSmokeless tobacco non-userProMedica [facility] Hospitaltart: 08-03-2021 End: 03-68-4174Wghnxun intakeCurrent non-drinker of alcohol (finding)[facility]: 19-13-5582Osi Assigned At BirthFemalACMC Healthcare System Glenbeigh ClinicStart: 10-26-2021 End: 19-97-8928Cghzxmpq to SARS-CoV-2 (event)Not sureProMedica Bay Park Hospitaltart: 48-77-8823Euxampp smoking statusSmokeless tobacco user within last 30 days [facility] Surgery BellevueStart: 08-29-2023 End: 80-26-9984Cau Assigned At BirthFeDayton Children's HospitalHistory of tobacco usePassive smokerProMedica Bay Park Hospitaltart: 08-29-2023 End: 57-16-4740Sgmgyua of Social functionProMedica Bay Park Hospitaltart: 88-16-0881Mkznms identityIdentifies as female gender (finding)[facility]: 07-21-2021 Sexual orientationHeterosexual (finding)[facility]: 09-25-2023 End: 31-19-0109Oefgspb smoking status NHISUnknown if ever smokedWayne HealthCare Main Campustart: 03-18-2024 End: 10-53-3743Cuaeyfxcs beverage intakeEx-drinker (finding)[facility] HealthcareDo you belong to any clubs or organizations such as baptism groups, unions, fraternal or athletic groups, or school groups?NoNOMS HealthcareAre you now , , , , never or living with a partner? Never marriedNOMS HealthcareHow often to you have a drink containing alcohol? Monthly or lessNOMS HealthcareHow many standard drinks containing alcohol do you have on a typical day?5 or 6NOMS HealthcareHow often do you have 6 or more drinks on 1 occasion?Less than monthlyNOMS HealthcareHow hard is it for you to pay for the very basics like food, housing, medical care, and heatingSomewhat hardNOMS HealthcareDo you feel stress - tense, restless, nervous, or anxious, or unable to sleep at night because yourmind is troubled all the time - these days [OSQ]Not at allNOMS Healthcare(I/We) worried whether (my/our) food would run out before (I/we) got money to buy more.Sometimes trueNOMS HealthcareStart: 20-07-9870Dgzjdfp Commentcaffeine intake: 1-2 cups per day.[facility] HealthcareHow often do you need to have someone help you when you read instructions, pamphlets, or other written material from your doctor or pharmacy [SILS]Never [facility] HealthcareAre you now , , , , never or living with a partner?Living with partnerNOMS HealthcareHow many standard drinks containing alcohol do you have on a typical day?1 or 2NOMS HealthcareThe food that (I/we) bought just didn't last, and (I/we) didn't have money to get more.Often trueNOMS HealthcareHow many standard drinks containing alcohol do you have on a typical day?3 or 4NOMS HealthcareDo you feel stress - tense, restless, nervous, or anxious, or unable to sleep at night because yourmind is troubled all the time - these days [OSQ]To some extentNOWY HealthcareSexFemale (finding)[facility] Functional Status NmtlYlhurbwnrgOmmjgcMfykuacn74-71-0144Nkgqz score [AUDIT-C]3 02/24/2025 2:04 PM EDT Mychart, GenericNevada Regional Medical CenterSrenyvlmkw00-84-6758Jlj often do you have a drink containing alcohol?Monthly or less 02/24/2025 2:04 PM EDT Mychart, Generic Monthly or lessNOSelect Specialty HospitalKwpllsijqf95-83-1292Mhx many standard drinks containing alcohol do you have on a typical day?3 or 4 02/24/2025 2:04 PM EDT Mychart, Generic 3 or 4NOSelect Specialty HospitalBzlumpmlzd85-22-7367Dgf often do you have 6 or more drinks on 1 occasion?Less than monthly 02/24/2025 2:04 PM EDT Mychart, Generic Less than monthlyNOSelect Specialty HospitalZpsbhgjubb81-47-6675Ixwrxktzvi StatusN/AGeneral Surgery Annmarie 16-79-4535Zey you deaf, or do you have serious difficulty hearingNo 01/06/2015 2:50 PM EDT Jackie Warren [facility] Ezoyhi89-04-7575Ugc you blind, or do you have serious difficulty seeing, even when wearing glassesNo 01/06/2015 2:50 PM Jackie Porter [facility] Jvxzdn01-57-6065Vu you have serious difficulty walking or climbing stairsNo 01/06/2015 2:50 PM Jackie Porter MaMer[facility] Health [facility] Vincent Medical CenterSfsylu25-51-7478Dz you have difficulty dressing or bathingNo 01/06/2015 2:50 PM EDT Jackie Warren Ma [facility] HospitalFdcjnl78-63-2676Oqapfnp of a physical, mental, or emotional condition, do you have difficulty doing errands alone such as visiting a physician's office or shoppingNo 01/06/2015 2:50 PM EDT Briana Haro [facility] Mental Status HeorSryvivcbdtHzecizGxbblmvr00-61-4591Izhbhze of a physical, mental, or emotional condition, do you have serious difficulty concentrating, remembering, or making decisionsNo 01/06/2015 2:50 PM EDT Briana Haro [facility] Clinical Notes 02-22-2021 to 05-20-2025 Note Date & EyfsXdryHgatvrms15-62-2907 NoteHNO ID: [id number] Author: JOSÉ TOTH RT(R) Service: Radiology Author Type: Wax Specialist Type: Progress Notes Filed: 05/20/2025 15:24 Note Text: Radiology Service Progress Note PATIENT NAME: Natalie Jaquez DATE OF SERVICE: May 20, 2025 TIME: 3:24 PM PATIENT IDENTITY VERIFICATION COMPLETED USING TWO (2) IDENTIFIERS: Name and Date of confirmed by patient verbally and Name and Date of confirmed by identification band. FALL SCREENING: Has the patient had 2 falls in the last year or 1 fall with injury or currently using an Ambulatory Assistive Device (Walker, Cane, Wheelchair, Crutches, etc.)? No PATIENT GENDER DATA: Assigned female at . status: : No status: NO. PATIENT RELEVANT IMPLANT DATA REVIEWED: Not Applicable PATIENT PRESENTS WITH AN IMPLANTABLE OR ATTACHED CAD DESIGN ENGINEER: No RADIOLOGY DEPARTMENT: CT; Exam(s) Completed: Abdomen/Pelvis . Anesthesia: No PERIPHERAL IV DATA: Site assessment: Clean,Dry and Intact, Site disposition Discontinued SIGNED BY: RT Lore(R) May 20, 2025 3:24 [facility]Suceahjc61-55-7269 NoteHNO ID: [id number] Author: THEO LUNA MD Service: ? Author Type: Physician Type: Progress Notes Filed: 04/16/2025 08:06 Note Text: Virtual visit, 30 minutes, patient agreed I have communicated my name and active licensure. The patient's identity and physical location were verified at the time of this visit. Either the patient or their legal investment representative has been informed of the risks and benefits of -- and alternatives to -- treatment through a remote evaluation and consents to proceed with the evaluation remotely. The patient is a 29-year-old female with MS, presenting with chronic diarrhea and lower abdominal cramping. She reports 4-5 years of frequent loose stools, with 3-4 bowel movements daily, more than half of which are watery. She notes occasional mucus in the stool and variable stool color, ranging from dark green to normal, which she attributes to ongoing iron supplementation. She recalls a single episode of hematochezia several years ago, but none since. She reports intermittent lower abdominal cramping, but denies any recent antibiotic use. She has not undergone stool cultures to date. A colonoscopy performed 1.5-2 years ago by a general surgeon was reportedly normal, with no abnormalities on biopsy. She has experienced mild, unintentional weight loss recently, but her weight was stable when symptoms first began. Current medications include Ocrevus for MS, as well as antidepressants, a mood stabilizer for bipolar disorder, and iron supplementation for a history of anemia. Her MS has been stable, with no relapses in the past 8 years. She drinks well water at home. Family history is notable for Crohn?s disease in her mother, who from complications of the disease. Diagnostics: Colonoscopy: No abnormalities, normal biopsies. Constitutional: (+) weight loss Gastrointestinal: (+) diarrhea, (+) increased stool frequency, (+) mucus in stool, (+) foul-smelling stool, (+) abdominal cramping pain We discussed your chronic diarrhea and related symptoms: - You have been experiencing diarrhea for 4-5 years, with 3-4 bowel movements per day, many of which are watery. You also reported occasional cramping in the lower abdomen, mucus in your stool, and a history of mild blood in your stool a few years ago. Your weight has been stable, though you mentioned some recent weight loss. - Your family history of Crohn?s disease (your mother) is concerning, and we will investigate this further. We discussed your current medications: - Continue taking your iron supplement, as it helps maintain your blood counts. - I prescribed Imodium to help manage your diarrhea. You can take up to 4 tablets per day. Take 1 tablet before bed and 1 before leaving the house to help prevent nighttime or inconvenient bowel movements. This prescription has been sent to your [facility] pharmacy in [place], [place]. We discussed the next steps for evaluation: - CT scan of the abdomen and pelvis: This will help us check for inflammation in your small bowel, which could indicate Crohn?s disease. The order has been placed, and you will be contacted to schedule this at the [facility] facility. You will need to drink a contrast solution and receive an IV during the scan. - Stool culture: This will test for infections such as C. difficile and other pathogens that could be causing your symptoms. On a different day from the CT scan, go to the [facility] lab in [place] to grape picker a stool collection container. Collect a fresh stool sample and return it to the lab promptly. If you have trouble producing a sample, try eating or light activity to stimulate a bowel movement. We discussed potential causes of your symptoms: - Your MS medication, Ocrevus, could be contributing to your diarrhea. We will evaluate this further after completing the tests. - Your well water may also be a factor. The stool culture will help determine if this is contributing to your symptoms. Follow-up: - I will review your test results and contact you through [employer] with further recommendations. - Please monitor your symptoms and let me know of any changes or worsening. Stay on your current medications, including iron, and follow the instructions for Imodium. Let me know if you have any questions or concerns through [employer]. Theo Luna, [facility]09-10-2025 Evaluation note* Diagnosis Onset Date Resolution Status Admit Date Bipolar 1 disorder, depressed, mild acuteSept2024 10:51amClass 3 severe obesity due to excess calories with body mass index (BMI) ofacuteSept2024 10:51amGAD (generalized anxiety disorder)acuteSept2024 10:51amMultiple sclerosisacute Starr 2024 10:51am [facility] Work Phone: 1(178) 673-558509-10-2025 Evaluation note* Diagnosis Onset Date Resolution Status Admit Date Bipolar 1 disorder, depressed, mild acuteSept2024 10:51amClass 3 severe obesity due to excess calories with body mass index (BMI) ofacutept2024 10:51amGAD (generalized anxiety disorder)acuteSept2024 10:51amMultiple sclerosisacute Starr 2024 10:51amBipolar 1 disorder, depressed, mildacuteNov2024 10:40amClass 3 severe obesity due to excess calories with body mass index (BMI) ofacuteJune 02, 2025 10:40amGAD (generalized anxiety disorder) acuteNov2024 10:40amInsulin resistanceacuteNov2024 10:40amMultiple sclerosisacuteJune 02, 2025 10:40am [facility] Work Phone: 1(294) 770-379308-05-2025 History of Present illness Narrative* Jayme Schmidt MD - 02/25/2025 1:44 PM EDTAssociated Problem(s): Tinea cruris Rash appears fungal and start cream. * Jayme Schmidt MD - 02/25/2025 1:44 PM EDTAssociated Problem(s): Multiple sclerosis (HCC) Worsening fatigue and resume adderall. Follow up with neurology. * Jayme Schmidt MD - 02/25/2025 1:43 PM EDTAssociated Problem(s): Insulin resistance Repeat labs. * Jayme Schmidt MD - 02/25/2025 1:43 PM EDTAssociated Problem(s): JEFF (generalized anxiety disorder) Worsening symptoms and increase abilify. Add buspar for symptoms. * Jayme Schmidt MD - 02/25/2025 1:43 PM EDTAssociated Problem(s): Class 3 severe obesity due to excess calories without serious comorbidity with body mass index (BMI) of 45.0 to 49.9 in adult ([facility]) Weight loss indicated. * Jayme Schmidt MD - 02/25/2025 1:43 PM EDTAssociated Problem(s): Bipolar 1 disorder, depressed, mild ([facility]) Worsening symptoms and increase abilify. * Jayme Schmidt MD - 02/25/2025 1:00 PM EDT Images from the original note were not included. Subjective Patient ID: Natalie Jaquez is a 29 y.o. female who presents [...] (BMI) of 45.0 to 49.9 in adult ([facility]) Weight loss indicated. Insulin resistance Repeat labs. Relevant Orders Insulin, fasting Tinea cruris Rash appears fungal and start cream. Relevant Medications clotrimazole (Lotrimin) 1 % cream Other Visit Diagnoses Annual physical exam Relevant Orders Basic metabolic panel CBC and differential Hepatic function panel Lipid panel Hemoglobin A1c TSH documented in this encounterNevada Regional Medical CenterCgcfytqitv73-53-2773 Telephone encounter Note* Telephone Encounter - Sue Valencia - 02/08/2025 11:21 AM EDT lvm for pt about scheduling 6 month virtual follow up with Yoly Miller per order workstation.called [phone] [facility]07-19-2025 Miscellaneous Notes* Telephone Encounter - Sue Valencia - 02/08/2025 11:21 AM EDT lvm for pt about scheduling 6 month virtual follow up with Yoly Miller per order workstation.called [phone] documented in this encounterSheltering Arms Hospital07-19-2025 NoteHNO ID: [id number] Author: YOLY MILLER APRN.[employer] Service: ? Author Type: Nurse Practitioner Type: Progress Notes Filed: 02/08/2025 11:07 Note Text: [facility] FOLLOWUP/ESTABLISHED VIRTUAL PATIENT VISIT I have communicated my name and active licensure. The patient's identity and physical location were verified at the time of this visit. Either the patient or their legal investment representative has been informed of the risks and benefits of -- and alternatives to -- treatment through a remote evaluation and consents to proceed with the evaluation remotely. PRINCIPAL NEUROLOGIC DIAGNOSIS: Multiple Sclerosis DISEASE SUMMARY: Year of Diagnosis: 2013 Relapse History: Year Month Site Symptoms Therapy 2016 1 BS/CBL falls, leg tingling steroids Treatment History: Medication Start Year Start Month Stop Year Stop Month Top Stop Reason interferon beta-1a intramuscular 2013 6 intolerance/side effects/symptoms glatiramer acetate 2013 9 intolerance/side effects/symptoms dimethyl fumarate 2013 unknown new relapses/MRI changes/breakthrough ocrelizumab 2017 5 10/22/2024 Most recent MRI brain Number of new T2 lesions None Site 01/23/2023 Most recent MRI cervical spine Number of new cervical T2 lesions None None CHIEF COMPLAINT: Follow-up on MS disease modifying therapy INTERVAL HISTORY: Today's visit is being completed virtually over Zoom. Patient consented to proceed with virtual visit. Usual treating team: Jeff/Angela The patient was last seen 07/26/24, currently taking Ocrevus. Natalie Jaquez is a 29-year-old female with a history of multiple sclerosis (MS) presenting for follow-up. Natalie reports ongoing issues with diarrhea and urinary incontinence. She wears adult pads to manage leakage, noting that the diarrhea is mostly leakage rather than full bowel movements. A colonoscopy with biopsies reportedly showed no significant findings. She occasionally consumes caffeine, which exacerbates her symptoms. She expresses reluctance to switch medications due to her current stability. She also reports generalized achiness, particularly in her legs and feet, and experiences occasional spasms in her feet, especially at night. These spasms were more frequent when her medication was due but have improved since her medication was adjusted. She was previously unable to take baclofen due to interactions with Adipex. She describes her fatigue as improved, noting that it is no longer severe. Her sleep is variable, with some nights being restful and others not. She reports issues with memory and concentration, often forgetting recent events but remembering details from weeks ago. She uses sticky notes and phone reminders to help manage her memory issues. Her mood is reportedly stable. Natalie has a history of polycystic ovary syndrome (PCOS) and has struggled with weight loss. She was previously on Adipex, which was effective until she broke her foot in July, limiting her ability to exercise. The fracture is mostly healed, and she is considering resuming Adipex in a few months. She currently weighs 280 lbs and aims to return to 180 lbs. She expresses concern about her family history of Crohn's disease, as her mother was affected. She has not followed up with her local GI specialist, who reportedly found no significant issues during her last visit. Mood: Ok Spasticity:Spasms in BLE Bladder: leakage Bowel: See HPI Pain related to today's visit:reviewed on nursing intake documentation Fatigue: See HPI Sleep: No problem/well Memory/Concentration: See HPI Neuro-QoL Functions (higher=better functioning) Flowsheet Row Appointment from 01/28/2025 in [facility] from 07/26/2024 in [facility] from 04/24/2024 in Neurology Upper Extremity Domain T Score 38 35 38 Lower Extremity Domain T Score 39 43 39 Cognitive Function Domain T Score 44 46 41 Positive Affect Well Being T Score -- -- -- Ability To Participate In Social Roles T Score 44 43 44 Satisfaction With Social Roles T Score 40 40 43 Neuro-QoL Symptoms (higher=worse symptoms) Flowsheet Row Appointment from 01/28/2025 in [facility] from 07/26/2024 in [facility] from 04/24/2024 in Neurology Sleep Domain T Score 59 55 61 Fatigue Domain T Score 61 70 70 Anxiety Domain T Score 58 47 61 Depression Domain T Score 53 53 57 Stigma Domain T Score 55 56 54 Emotional Behavior Dyscontrol T Score -- -- -- has a past medical history of Multiple sclerosis (HCC), Myopia, and Wears glasses. has a current medication list which includes the following prescription(s): dextroamphetamine-amphetamine, oxybutynin er, venlafaxine er, baclofen, aripiprazole, cholecalciferol (vitamin d3), ferrous sulfate, norgestimate-ethinyl estradiol, and levothyroxine. EXAM: LMP 08/29/2023 (Exact Date) MSPT Results Flowsheet Row Office Visit from 08/29/2023 i (more content not included)... [facility]07-19-2025 History of Present illness Narrative* Yoly Miller APRN.[employer] - 02/08/2025 10:35 AM EDT Images from the original note were not included. [facility] FOLLOWUP/ESTABLISHED VIRTUAL PATIENT VISIT I have communicated my name and active licensure. The patient's identity and physical location wereverified at the time of this visit. Either the patient or their legal investment representative has been informed of the risks and benefits of -- and alternatives to -- treatment through a remote evaluation andconsents to proceed with the evaluation remotely. PRINCIPAL NEUROLOGIC DIAGNOSIS: Multiple Sclerosis DISEASE SUMMARY: Year of Diagnosis: 2013 Relapse History: Year Month Site Symptoms Therapy 2016 1 BS/CBL falls, leg tingling steroids Treatment History: Medication Start Year Start Month Stop Year Stop Month Top Stop Reason interferon beta-1a intramuscular 2013 6 intolerance/side effects/symptoms glatiramer acetate 2013 9 intolerance/side effects/symptoms dimethyl fumarate 2013 unknown new relapses/MRI changes/breakthrough ocrelizumab 2017 1110/22/2024 Most recent MRI brain Number of new T2 lesions None Site 01/23/2023 Most recent MRI cervical spine Number of new cervical T2 lesions None None CHIEF COMPLAINT: Follow-up on MS disease modifying therapy INTERVAL HISTORY: Today's visit is being completed virtually over Zoom. Patient consented to proceed with virtual visit. Usual treating team: Rd The patient was last seen 07/26/24, currently taking Ocrevus. Natalie Jaquez is a 29-year-old female with a history of multiple sclerosis (MS) presenting for follow-up. Natalie reports ongoing issues with diarrhea and urinary incontinence. She wears adult pads to manage leakage, noting that the diarrhea is mostly leakage rather than full bowel movements. A colonoscopy with biopsies reportedly showedno significant findings. She occasionally consumes caffeine, which exacerbates her symptoms. She expresses reluctance to switch medications due to her current stability. She also reports generalized achiness, particularly in her legs and feet, and experiences occasional spasms in her feet, especially at night. These spasms were more frequent when her medication was due but have improved since her medication was adjusted. She was previously unable to take baclofen due to interactions with Adipex. She describes her fatigue as improved, noting that it is no longer severe. Her sleep is variable, with some nights being restful and others not. She reports issues with memory and concentration, often forgetting recent events but remembering details from weeks ago. She uses sticky notes and phone reminders to help manage her memory issues. Her mood is reportedly stable. Natalie has a history of polycystic ovary syndrome (PCOS) and has struggled with weight loss. She was previously on Adipex, which was effective until she broke her foot in July, limiting her ability to exercise. The fracture is mostly healed, and she is considering resuming Adipex in a few months. She currently weighs 280 lbs and aims to return to 180 lbs. She expresses concern about her family history of Crohn's disease, as her mother was affected. She has not followed up with her local GI specialist, who reportedly found no significant issues during her last visit. Mood: Ok Spasticity:Spasms in BLE Bladder: leakage Bowel: See HPI Pain related to today's visit:reviewed on nursing intake documentation Fatigue: See HPI Sleep: No problem/well Memory/Concentration: See HPI Neuro-QoL Functions (higher=better functioning) Flowsheet Row Appointment from 01/28/2025 in [facility] from 07/26/2024 in [facility] from 04/24/2024 in Neurology Upper Extremity Domain T Score 38 35 38 Lower Extremity Domain T Score 39 43 39 Cognitive Function Domain T Score 44 46 41 Positive Affect Well Being T Score -- -- -- Ability To Participate In Social Roles T Score 44 43 44 Satisfaction With Social Roles T Score 40 40 43 Neuro-QoL Symptoms (higher=worse symptoms) Flowsheet Row Appointment from 01/28/2025 in [facility] from 07/26/2024 in [facility] from 04/24/2024 in Neurology Sleep Domain T Score 59 55 61 Fatigue Domain T Score 61 70 70 Anxiety Domain T Score 58 47 61 Depression Domain T Score 53 53 57 Stigma Domain T Score 55 56 54 Emotional Behavior Dyscontrol T Score -- -- -- has a past medical history of Multiple sclerosis (HCC), Myopia, and Wears glasses. has a current medication list which includes the following prescription(s): dextroamphetamine-amphetamine, oxybutynin er, venlafaxine er, baclofen, aripiprazole, cholecalciferol (vitamin d3), ferroussulfate, norgestimate-ethinyl estradiol, and levothyroxine. EXAM: LMP 08/29/2023 (Exact Date) MSPT Results Flowsheet Row Office Visit from 08/29/2023 in [facility] Office Visit from 12/04/2020 in [facility] Office Visit from 10/05/2017 in [facility] Processing Speed Total Number Correct 61 59 70 Processing Speed Z score -- -- -- Dominant hand -- -- -- MDT Left Hand Time 24.76 21.88 20.98 MDT Right Hand Time 21.58 20.13 19.06 Walking Speed Test (25 feet) 5.71 3.85 4.97 Memory Z Score -- -- -- General Appearance: well appearing, in no acute distress Mental status evaluation during the interview and examination showed normal level of consciousness,orientation, language, memory, praxis, and higher intellectual function Affect: Normal RESULTS: CBC + Diff Component Value Date WBC 9.22 01/13/2025 HB 13.8 01/13/2025 HCT 41.5 01/13/2025 PLT 377 01/13/2025 ABSLYMPH 2.28 01/13/2025 No results found for: VITD25 CMP Component Value Date AST 38 (H) 07/15/2024 GLUC 136 (H) 07/15/2024 BUN 13 07/15/2024 CREAT 0.74 07/15/2024 NA 137 07/15/2024 K 4.0 07/15/2024 CHLOR 104 07/15/2024 ALT 40 (H) 07/15/2024 MRI Results Discrete MRI Results Component Value Date Brain New T2 Lesions None Site 10/22/2024 Brain Enhancing Lesions None 10/22/2024 Cervical Spine New T2 Lesions None 01/23/2023 Cervical Spine New T2 Lesions None 01/23/2023 Cervical spine enhancing lesions None 01/23/2023 Cervical spine enhancing lesions None 01/23/2023 ASSESSMENT: Natalie Jaquez is a 29 year old female with Multiple Sclerosis. Currently on Ocrevus. Exam is:Stable, continue with current IMDT. The prescribed disease modifying therapy for MS is having the expected benefit in this patient based on imaging and clinical criteria, and will be continued or refilled, with planned follow-up at approximately 6-month intervals to continue to assess response on an ongoing basis. Has had long standing diarrhea, saw GI locally with no identifiable cause. Ocrevus has had cases ofcolitis associated with it, however is fearful of switching DMT due to stability with Ocrevus. Consult placed to GI to further evaluate. PLAN: Continue Ocrevus Consult to GI Patient Health Education Discussed at Visit: Risks and Common side effects of MS medications, Stretching, and Vitamin D supplementation Follow-up: In 6 months at [facility] I spent a total of 30 minutes on the date of the service which included preparing to see the patient, [id number] patient care, completing clinical documentation, obtaining and/or reviewing separately obtained history, counseling and educating the patient/family/caregiver, and ordering medications, tests, or procedures. Yoly Miller APRN.CNP [facility] documented in this encounterShel[facility]05-08-[facility]25 History of Present illness Narrative* LEONIE Ca - 11/28/2024 2:50 PM EDT Reason for Appointment: Patient ID: Natalie Jaquez is a 29 y.o. female who presents for Weight Management [...] Date Noted Acne vulgaris 03/28/2023 Adrenogenital disorder ([facility]) 04/12/2005 Anemia 01/13/2015 Chronic bilateral low back pain with bilateral sciatica 07/08/2014 Bipolar 1 disorder, depressed, mild ([facility]) 03/28/2023 Multiple sclerosis ([facility]) 04/24/2014 JEFF (generalized anxiety disorder) ([facility]) 03/28/2023 History of PCOS 10/05/2015 Adult hypothyroidism ([facility]) 03/28/2023 Iron deficiency anemia 01/15/2015 Irritable bowel syndrome 03/28/2023 Migraine without aura and without status migrainosus, not intractable ([facility]) 08/16/2015 Vitamin D deficiency 03/28/2023 Class 3 severe obesity due to excess calories without serious comorbidity with body mass index (BMI) of 40.0 to 44.9 in adult 09/18/2023 PCOS (polycystic ovarian syndrome) 09/18/2023 Insulin resistance 09/18/2023 Encounter for long-term (current) use of medications 09/18/2023 Encounter for weight management 07/08/2024 Tinea pedis 07/30/2024 Resolved Ambulatory Problems Diagnosis Date Noted Bladder dysfunction 07/08/2014 Change in bowel habits 03/28/2023 Demyelinating changes in brain ([facility]/HCC) 12/01/2013 Exercise induced bronchospasm (CMS/HCC) 02/08/2012 Frequent UTI 08/11/2015 Headache 01/20/2015 Memory [...] Mother Cintia Jaquez Crohn's disease Mother Cintia Dayaravahid Diabetes Father Blake Commarato Cancer Maternal Grandmother Andreina Tomrajani COPD Maternal Grandfather Cancer Paternal Grandmother SURGICAL [...] reviewed. Vitals: Estimated body mass index is 46.85 kg/m as calculated from the following: Height as of 06/24/24: 5' 6 . Weight as of this encounter: 290 lb 4 oz. BP: (!) 122/92 No LMP recorded. ASSESSMENT & PLAN ICD-10-CM 1. Encounter for weight management Z76.89 Patient presents for adipex and weight management consultation. Patient has failed with adipex and taking metformin. I feel best to refer her to a dietarty clinician who can help her with her goals. Patient will follow up with Dr Magaña. She will return to us in February for annual exam Documented by LEONIE Ca on behalf of: LEONIE Ca documented in this encounterNevada Regional Medical [id number] History of Present illness Narrative* Alfredo Vieira RT(R) - 10/22/2024 2:40 PM EDT Radiology Service Progress Note DATE OF SERVICE: October 22, 2024 TIME: 2:51 PM PATIENT IDENTITY VERIFICATION COMPLETED USING TWO (2) STANDARD IDENTIFIERS: Name and Date of confirmed by patient verbally. FALL SCREENING: Has the patient had 2 falls in the last year or 1 fall with injury or currently using an Ambulatory Assistive Device (Walker, Cane, Wheelchair, Crutches, etc.)? No PATIENT GENDER DATA: Assigned female at . status: : No status:NO. PATIENT RELEVANT IMPLANT DATA REVIEWED: Not Applicable PATIENT PRESENTS WITH AN IMPLANTABLE OR ATTACHED CAD DESIGN ENGINEER: No ALLERGIES: Reviewed and unchanged CONTRAST ALLERGY: NO. EXAM: MRI - CONTRAST TYPE: GROUP II PERIPHERAL IV DATA: Ambulatory: A peripheral IV was started in the Right antecubital site with a Butterfly: 23 gauge. RADIOLOGY DEPARTMENT: MR; Exam(s) Completed: Head: Multiple Sclerosis SIGNATURE: RT Krissy(Shelby) PATIENT NAME: Natalie Ryanto DATE: October 22, 2024 TIME: 2:51 PM documented in this encounterShel[facility]04-01-2025 NoteHNO ID: [id number] Author: ALFREDO VIEIRA RT(R) Service: ? Author Type: Technologist Type: Progress Notes Filed: 10/22/2024 15:03 Note Text: Radiology Service Progress Note DATE OF SERVICE: October 22, 2024 TIME: 2:51 PM PATIENT IDENTITY VERIFICATION COMPLETED USING TWO (2) STANDARD IDENTIFIERS: Name and Date of confirmed by patient verbally. FALL SCREENING: Has the patient had 2 falls in the last year or 1 fall with injury or currently using an Ambulatory Assistive Device (Walker, Cane, Wheelchair, Crutches, etc.)? No PATIENT GENDER DATA: Assigned female at . status: : No status: NO. PATIENT RELEVANT IMPLANT DATA REVIEWED: Not Applicable PATIENT PRESENTS WITH AN IMPLANTABLE OR ATTACHED CAD DESIGN ENGINEER: No ALLERGIES: Reviewed and unchanged CONTRAST ALLERGY: NO. EXAM: MRI - CONTRAST TYPE: GROUP II PERIPHERAL IV DATA: Ambulatory: A peripheral IV was started in the Right antecubital site with a Butterfly: 23 gauge. RADIOLOGY DEPARTMENT: MR; Exam(s) Completed: Head: Multiple Sclerosis SIGNATURE: RT Krissy(R) PATIENT NAME: Natalie Dayarato DATE: October 22, 2024 TIME: 2:51 [facility]03-05-[facility]25 History of Present illness Narrative* LEONIE Ca - 09/25/2024 2:30 PM EST Reason for Appointment: Patient ID: Natalie Jaquez is a 28 y.o. female who presents for Weight Management Patient presents today for a weight management consultation. Patient has been prescribed Adipex andshe is here for her 2nd prescription. Today's Vitals: Estimated body mass index is 45.74 kg/m as calculated from the following: Height as of 06/24/24: 5' 6 . Weight as of this encounter: 283 lb 6.4 oz. Previous Weight/BMI: Wt Readings from Last 2 Encounters: 09/25/24 283 lb 6.4 oz 08/28/24 262 lb 6.4 oz BMI Readings from Last 2 Encounters: 09/25/24 45.74 kg/m 08/28/24 42.35 kg/m Allergies as of 09/25/2024 - Reviewed 08/28/2024 Allergen Reaction Noted Interferon beta-1a Anaphylaxis, Hives, and Shortness of breath 01/15/2014 Glatiramer acetate Unknown 03/28/2023 Moxifloxacin Unknown 03/28/2023 Glatiramer Rash 04/14/2014 Past Medical History: Diagnosis Date Acne vulgaris Anemia Bipolar affective disorder, currently depressed, mild ([facility]) BMI 38.0-38.9,adult 03/28/2023 Chronic migraine without aura without status migrainosus, not intractable ([facility]) Ear problems September 2022 Fatigue JEFF (generalized anxiety disorder) ([facility]/HCC) Gastritis Hypothyroid (CMS/HCC) Insulin resistance Iron deficiency anemia Irritable bowel syndrome with both constipation and diarrhea MS (multiple sclerosis) (CMS/HCC) PCOS (polycystic ovarian syndrome) Pneumonia, bacterial Polycystic ovarian disease Proteinuria 03/28/2023 Vitamin D deficiency Past Surgical History: Procedure Laterality Date CHOLECYSTECTOMY EGD PILONIDAL CYST DRAINAGE TONSILLECTOMY Assessment/Plan Encounter Diagnosis Name Primary? Encounter for weight management Adipex: Patient presents today for 4th Adipex prescription. Patients weight and blood pressure has been captured and discussed with the patient. Discussed/reiterated the importance of keeping a food journal,proper nutrition/diet, and exercise regimen while taking Adipex. Patient verbalized understanding and was given a printed prescription signed by provider to take to their local pharmacy. Follow Up: Patient is to return to the office in 1 month for further evaluation to assess patient progress. Weight and blood pressure will need to be obtained in order for patient to receive 5th prescription. Zoe discussed with patient recent weight gain as patient had surgery on 08/20/24 and was unable to beweight bearing on left foot for 3 weeks. Patient is still currently in a boot. Patient advised to check with surgeon to see when/what activity she is able to do. Patient given 30 day prescription andadvised to call office and LM with nursing staff on when she is able to start physical activity forweight management. Documented by: Mone Dubon LPN on behalf of LEONIE Ca documented in this encounterNevada Regional Medical [id number] History of Present illness Narrative* LEONIE Ca - 08/28/2024 2:30 PM EST Reason for Appointment: Patient ID: Natalie Jaquez [...] Date Noted Acne vulgaris 03/28/2023 Adrenogenital disorder ([facility]) 04/12/2005 Anemia 01/13/2015 Chronic bilateral low back pain with bilateral sciatica 07/08/2014 Bipolar 1 disorder, depressed, mild ([facility]) 03/28/2023 Multiple sclerosis ([facility]) 04/24/2014 JEFF (generalized anxiety disorder) ([facility]) 03/28/2023 History of PCOS 10/05/2015 Adult hypothyroidism ([facility]) 03/28/2023 Iron deficiency anemia 01/15/2015 Irritable bowel syndrome 03/28/2023 Migraine without aura and without status migrainosus, not intractable ([facility]) 08/16/2015 Vitamin D deficiency 03/28/2023 Class 3 severe obesity due to excess calories without serious comorbidity with body mass index (BMI) of 40.0 to 44.9 in adult ([facility]) 09/18/2023 PCOS (polycystic ovarian syndrome) 09/18/2023 Insulin resistance 09/18/2023 Encounter for long-term (current) use of medications 09/18/2023 Encounter for weight management 07/08/2024 Tinea pedis 07/30/2024 Resolved Ambulatory Problems Diagnosis Date Noted Bladder dysfunction 07/08/2014 Change in bowel habits 03/28/2023 Demyelinating changes in brain ([facility]) 12/01/2013 Exercise induced bronchospasm ([facility]) 02/08/2012 Frequent UTI 08/11/2015 Headache 01/20/2015 Memory disorder 08/11/2015 BMI 38.0-38.9,adult 03/28/2023 Proteinuria 03/28/2023 Acute non-recurrent pansinusitis 09/18/2023 Past Medical History: Diagnosis Date Bipolar affective disorder, currently depressed, mild ([facility]) Chronic migraine without aura without status migrainosus, not intractable ([facility]) Ear problems September 2022 Fatigue Gastritis Hypothyroid ([facility]) Irritable bowel syndrome with both constipation and diarrhea MS (multiple sclerosis) ([facility]) Pneumonia, bacterial Polycystic ovarian disease HISTORY PAST MEDICAL HISTORY SOCIAL HISTORY Past Medical History: Diagnosis Date Acne vulgaris Anemia Bipolar affective disorder, currently depressed, mild ([facility]) BMI 38.0-38.9,adult 03/28/2023 Chronic migraine without aura without status migrainosus, not intractable ([facility]) Ear problems September 2022 Fatigue JEFF (generalized anxiety disorder) ([facility]) Gastritis Hypothyroid ([facility]) Insulin resistance Iron deficiency anemia Irritable bowel syndrome with both constipation and diarrhea MS (multiple sclerosis) ([facility]) PCOS (polycystic ovarian syndrome) Pneumonia, bacterial Polycystic [...] keeping a food journal, proper nutrition/diet, and exerciseregimen. Patient verbalized understanding. Patient has not lost more than 5% of her initial body weight Patient is recovering from foot surgery and unable to take the adipex until she is off aspirin fromsurgery. We gave script for refill today, pt [...] behalf of: LEONIE Ca documented in this encounterNevada Regional Medical [id number] History of Present illness Narrative* Caren Chávez MA - 07/31/2024 2:50 PM EST Reason for Appointment: Patient ID: Natalie Jaquez is a 28 y.o. female who presents for Weight Management (Pt present today for Adipex #2 visit.) Patient presents today for a weight management consultation. Patient has been prescribed Adipex andshe is here for her 2nd prescription. Today's [...] Anemia Bipolar affective disorder, currently depressed, mild ([facility]) BMI 38.0-38.9,adult 03/28/2023 Chronic migraine without aura without status migrainosus, not intractable ([facility]) Ear problems September 2022 Fatigue JEFF (generalized anxiety disorder) ([facility]) Gastritis Hypothyroid ([facility]) Insulin resistance Iron deficiency anemia Irritable bowel syndrome with both constipation and diarrhea MS (multiple sclerosis) ([facility]) PCOS (polycystic ovarian syndrome) Pneumonia, bacterial Polycystic [...] behalf of LEONIE Ca documented in this encounterNevada Regional Medical [id number] History of Present illness Narrative* Jayme Schmidt MD - 07/30/2024 3:35 PM ESTAssociated Problem(s): Class 3 severe obesity due to excess calories without serious comorbidity with body mass index (BMI) of 40.0 to 44.9 in adult ([facility]) Weight down 10 pounds with adipex and continue. * Jayme Schmidt MD - 07/30/2024 3:34 PM ESTAssociated Problem(s): Tinea pedis Start cream. * Jayme Schmidt MD - 07/30/2024 3:34 PM ESTAssociated Problem(s): Multiple sclerosis (CMS/HCC) No change and follow up with neurology. * Jayme Schmidt MD - 07/30/2024 3:34 PM ESTAssociated Problem(s): JEFF (generalized anxiety disorder) (CMS/HCC) Occasional symptoms but tolerable with medication and continue. * Jayme Schmidt MD - 07/30/2024 3:34 PM ESTAssociated Problem(s): Bipolar 1 disorder, depressed, mild (CMS/HCC) Occasional symptoms but tolerable with medication and continue. * Jayme Schmidt MD - 07/30/2024 2:45 PM EST Images from the original note were not included. Subjective Patient ID: Natalei Jaquez is a 28 y.o. female who presents for No chief complaint on file.. Follow up bipolar, anxiety, and MS. Bipolar stable today. Mild symptoms and at times down, sad, andno motivation. Occasionally not want to do anything or be around others. No liam and not hyper or full of energy. Anxiety stable. Not as stressed out or overwhelmed. Not as nervous or worry as much.Not as ashley or irritable. Overall feels like doing well with medication. MS unchanged. No weaknessor focal deficits. Continues to have fatigue but adderall helps. Following with neurology and on Ocrevus. MRI ordered and no new lesions. C/o rash on foot for several weeks. Red, irritated and itchy.Similar rash in past and OTC spray helped. [...] (Lotrimin) 1 % cream documented in this encounterNevada Regional Medical [id number] History of Present illness Narrative* Jhon Garcia MD - 07/26/2024 2:30 PM EST Images from the original note were not included. [facility] FOLLOWUP/ESTABLISHED PATIENT VISIT, Virtual PRINCIPAL NEUROLOGIC DIAGNOSIS: Multiple Sclerosis DISEASE SUMMARY: Year of Diagnosis: 2013 Relapse History: Year Month Site Symptoms Therapy 2016 1 BS/CBL falls, leg tingling steroids Treatment History: Medication Start Year Start Month Stop Year Stop Month Top Stop Reason interferon beta-1a intramuscular 2013 intolerance/side effects/symptoms glatiramer acetate 2013 9 intolerance/side [...] after last Ocrevus infusion. Rates discomfort at 4-5/10.It happens once or twice a day and [...] been able to get into GI at [facility] until August of this year. - She [...] an outside ED. 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 Wears pad Bowel: see HPI Fatigue: Always tired Sleep: Ok, naps occasionally . Doesn't wake up during the night. Memory/Concentration: concentration is ok. Usual treating team: Jeff/Angela The patient is accompanied by self. The patient was last seen 05/26/2024, currently taking Ocrevus.Since the patient's last visit the patient reports overall feeling stable to worse. Issues with current therapy: Tolerating medication with diarrhea. Neuro-QoL Functions (higher=better functioning) Flowsheet Row Appointment from 07/26/2024 in [facility] from 04/24/2024 in Neurology Office Visit from 08/29/2023 in [facility] Upper Extremity Domain T Score 35 38 34.21 Lower Extremity Domain T Score 43 39 40.53 Cognitive Function Domain T Score 46 41 38.17 Positive Affect Well Being T Score -- -- -- Ability To Participate In Social Roles T Score 43 44 41.74 Satisfaction With Social Roles T Score 40 43 37.74 Neuro-QoL Symptoms (higher=worse symptoms) Flowsheet Row Appointment from 07/26/2024 in [facility] from 04/24/2024 in Neurology Office Visit from 08/29/2023 in [facility] Sleep Domain T Score 55 61 58.92 [...] venlafaxine er, baclofen, aripiprazole, cholecalciferol (vitamin d3), ferroussulfate, norgestimate-ethinyl estradiol, and levothyroxine. EXAM: LMP 08/29/2023 (Exact Date) MSPT Results Flowsheet Row Office Visit from 08/29/2023 in [facility] Office Visit from 12/04/2020 in [facility] Office Visit from 10/05/2017 in [facility] Processing Speed Total Number Correct 61 59 [...] appointment coming up locally. She has a mildinfection burden on Ocrevus with low IgG. Ok [...] ordered to evaluate for efficacy of multiple sclerosis(MS) disease modifying therapy. Disease activity in MS [...] locally Appointment on 07/26/24 MRI BRAIN WO/W [facility] FOLLOW UP CONSULT TO PHYSICAL THERAPY The chart was reviewed for possible participation in the following studies:None Patient Health Education Discussed at Visit: Aerobic exercise, Emotional Health/Wellness, Healthy Weight, and Need for PCP Nathaly Garcia MD Neuroimmunology Fellow [facility] for [facility] I reviewed the note [...] questions. Autumn Barclay MD documented in this encounterSheltering [facility]01-03-2025 NoteHNO ID: [id number] Author: AUTUMN BARCLAY MD Service: ? Author Type: Fellow Type: Progress Notes Filed: 07/26/2024 15:20 Note Text: [facility] FOLLOWUP/ESTABLISHED PATIENT VISIT, Virtual PRINCIPAL NEUROLOGIC [...] 2013 unknown new relapses/MRI changes/breakthrough ocrelizumab 2017 5 11/14/2023 Most recent MRI brain Number [...] been able to get into GI at [facility] until August of this year. - She [...] an outside ED. 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: Mood is ok Spasticity: See [...] functioning) Flowsheet Row Appointment from 07/26/2024 in [facility] from 04/24/2024 in Neurology Office Visit from 08/29/2023 in [facility] Upper Extremity Domain T Score 35 38 34.21 Lower Extremity Domain T Score 43 39 40.53 Cognitive Function Domain T Score 46 41 38.17 Positive Affect Well Being T Score -- -- -- Ability To Participate In Social Roles T Score 43 44 41.74 Satisfaction With Social Roles T Score 40 43 37.74 Neuro-QoL Symptoms (higher=worse symptoms) Flowsheet Row Appointment from 07/26/2024 in [facility] from 04/24/2024 in Neurology Office Visit from 08/29/2023 in [facility] Sleep Domain T Score 55 61 58.92 [...] Flowsheet Row Office Visit from 08/29/2023 in [facility] Office Visit from 12/04/2020 in [facility] Office Visit from 10/05/2017 in [facility] Processing Speed Total Number Correct 61 59 [...] praxis, and higher intellect (more content not included)...[facility]12-26-2024 History of Present illness Narrative* Danica Nguyen RT(R) - 07/18/2024 1:20 PM EST Radiology Service Progress Note DATE OF SERVICE: [...] PATIENT PRESENTS WITH AN IMPLANTABLE OR ATTACHED CAD DESIGN ENGINEER: No ALLERGIES: Reviewed and unchanged CONTRAST ALLERGY: NO. EXAM: MRI - CONTRAST TYPE: GROUP II PERIPHERAL IV DATA: Ambulatory: A peripheral IV was started in the Right antecubital site with a Butterfly: 25 gauge. RADIOLOGY DEPARTMENT: MR; Exam(s) Completed: Spine: Cervical spine and Thoracic spine SIGNATURE: SAMUEL Murphy) PATIENT NAME: Nataile Jaquez DATE: July 18, 2024 TIME: 1:47 PM documented in this encounterSheltering Arms Hospital12-26-2024 NoteHNO ID: [id number] Author: DANICA NUGYEN RT(R) Service: Radiology Author Type: Technologist Type: [...] PATIENT PRESENTS WITH AN IMPLANTABLE OR ATTACHED CAD DESIGN ENGINEER: No ALLERGIES: Reviewed and unchanged CONTRAST ALLERGY: NO. EXAM: MRI - CONTRAST TYPE: GROUP II PERIPHERAL IV DATA: Ambulatory: A peripheral IV was started in the Right antecubital site with a Butterfly: 25 gauge. RADIOLOGY DEPARTMENT: MR; Exam(s) Completed: Spine: Cervical spine and Thoracic spine SIGNATURE: RT Jeffrey(R) PATIENT NAME: Natalie Jaquez DATE: July 18, 2024 TIME: 1:47 [facility]12-16-2024 History of Present illness Narrative* LEONIE Ca - 07/08/2024 2:30 PM EST Reason for Appointment: Patient ID: Natalie Jaquez [...] Date Noted Acne vulgaris 03/28/2023 Adrenogenital disorder ([facility]) 04/12/2005 Anemia 01/13/2015 Chronic bilateral low back pain with bilateral sciatica 07/08/2014 Bipolar 1 disorder, depressed, mild ([facility]) 03/28/2023 Multiple sclerosis ([facility]) 04/24/2014 JEFF (generalized anxiety disorder) ([facility]) 03/28/2023 History of PCOS 10/05/2015 Adult hypothyroidism ([facility]) 03/28/2023 Iron deficiency anemia 01/15/2015 Irritable bowel syndrome 03/28/2023 Migraine without aura and without status migrainosus, not intractable ([facility]) 08/16/2015 Vitamin D deficiency 03/28/2023 Class 3 severe obesity due to excess calories without serious comorbidity with body mass index (BMI) of 40.0 to 44.9 in adult ([facility]) 09/18/2023 PCOS (polycystic ovarian syndrome) 09/18/2023 Insulin resistance 09/18/2023 Encounter for long-term (current) use of medications 09/18/2023 Encounter for weight management 07/08/2024 Resolved Ambulatory Problems Diagnosis Date Noted Bladder dysfunction 07/08/2014 Change in bowel habits 03/28/2023 Demyelinating changes in brain ([facility]) 12/01/2013 Exercise induced bronchospasm ([facility]) 02/08/2012 Frequent UTI 08/11/2015 Headache 01/20/2015 Memory disorder 08/11/2015 BMI 38.0-38.9,adult 03/28/2023 Proteinuria 03/28/2023 Acute non-recurrent pansinusitis 09/18/2023 Past Medical History: Diagnosis Date Bipolar affective disorder, currently depressed, mild ([facility]) Chronic migraine without aura without status migrainosus, not intractable ([facility]) Ear problems September 2022 Fatigue Gastritis Hypothyroid ([facility]) Irritable bowel syndrome with both constipation and diarrhea MS (multiple sclerosis) ([facility]) Pneumonia, bacterial Polycystic ovarian disease HISTORY PAST MEDICAL HISTORY SOCIAL HISTORY Past Medical History: Diagnosis Date Acne vulgaris Anemia Bipolar affective disorder, currently depressed, mild ([facility]) BMI 38.0-38.9,adult 03/28/2023 Chronic migraine without aura without status migrainosus, not intractable ([facility]) Ear problems September 2022 Fatigue JEFF (generalized [...] behalf of: LEONIE Ca documented in this encounterNevada Regional Medical [id number] History of Present illness Narrative* Jayme Schmidt MD - 06/24/2024 11:33 AM ESTAssociated Problem(s): Multiple sclerosis ([facility]) No change and follow up with neurology. * Jayme Schmidt MD - 06/24/2024 11:32 AM ESTAssociated Problem(s): Irritable bowel syndrome Symptoms worse and developed incontinence. Refer to GI. * Jayme Schmidt MD - 06/24/2024 11:32 AM ESTAssociated Problem(s): JEFF (generalized anxiety disorder) ([facility]) Occasional symptoms but tolerable with medication and continue. * Jayme Schmidt MD - 06/24/2024 11:32 AM ESTAssociated Problem(s): Class 3 severe obesity due to excess calories without serious comorbidity with body mass index (BMI) of 40.0 to 44.9 in adult ([facility]) Patient overweight and difficult time losing weight. [...] month. OARRS reviewed. Continue medications as prescribed. * Jayme Schmidt MD - 06/24/2024 11:31 AM ESTAssociated Problem(s): Bipolar 1 disorder, depressed, mild (CMS/HCC) Occasional symptoms but tolerable with medication and continue. * Jayme Schmidt MD - 06/24/2024 11:00 AM EST Subjective Patient ID: Natalie Jaquez is a [...] Continue medications as prescribed. documented in this encounterNevada Regional Medical [id number] History of Present illness Narrative* Mone Dubon LPN - 06/10/2024 1:50 PM EST Reason for Appointment: Patient ID: Natalie Jaquez is a 28 y.o. female who presents for Infertility Patient presents today for Consult appointment. MEDICATIONS Current Outpatient Medications Medication Instructions amphetamine-dextroamphetamine (Adderall) 30 MG tablet 30 mg, Oral, 2 times daily ARIPiprazole (ABILIFY) 15 mg, Oral, Daily cholecalciferol (Vitamin D-3) 50 MCG (1999) tablet 1 tablet, Every 24 hours dicyclomine [...] Date Noted Acne vulgaris 03/28/2023 Adrenogenital disorder ([facility]) 04/12/2005 Anemia 01/13/2015 Chronic bilateral low back pain with bilateral sciatica 07/08/2014 Bipolar 1 disorder, depressed, mild ([facility]) 03/28/2023 Multiple sclerosis ([facility]) 04/24/2014 JEFF (generalized anxiety disorder) ([facility]) 03/28/2023 History of PCOS 10/05/2015 Adult hypothyroidism ([facility]) 03/28/2023 Iron deficiency anemia 01/15/2015 Irritable bowel syndrome 03/28/2023 Migraine without aura and without status migrainosus, not intractable ([facility]) 08/16/2015 Vitamin D deficiency 03/28/2023 Morbid obesity due to excess calories ([facility]) 09/18/2023 PCOS (polycystic ovarian syndrome) 09/18/2023 Insulin resistance 09/18/2023 Encounter for long-term (current) use of medications 09/18/2023 Resolved Ambulatory Problems Diagnosis Date Noted Bladder dysfunction 07/08/2014 Change in bowel habits 03/28/2023 Demyelinating changes in brain ([facility]) 12/01/2013 Exercise induced bronchospasm ([facility]) 02/08/2012 Frequent UTI 08/11/2015 Headache 01/20/2015 Memory [...] nursing note reviewed. Exam conducted with a setter juice packaging machines present. Vitals: Estimated body mass index is 44.03 kg/m as calculated from the following: Height as of 24: 5' 6 . Weight as of this encounter: 272 lb 12.8 oz. BP: 120/70 No LMP recorded (within weeks). ASSESSMENT & PLAN ICD-10-CM 1. Female infertility N97.9 Patient presents today to discuss PCOS and fertility. Patient voiced that she take Adderall to helpstay awake due to her MS. Discussed Adipex or Wegovy (through compound pharmacy). Patient is currently taking Metformin and will now increase to 1,000mg daily. Patient aware that when she is ready toconceive then she will need to discontinue OCP [...] request Compounded Wt management be sent to [employer]. Patient has voiced understanding and will call our office for any further questions/concerns. Follow Up: Patient to return to clinic when ready to discuss conceiving. Documented by Mone Dubon LPN on behalf of: Casey Rae DO documented in this encounterNevada Regional Medical [id number] History of Present illness Narrative* Jonathan Isabel MD - 06/05/2024 1:00 PM EST Images from the original note [...] Relation Name Age of Onset COPD Mother Cnitia Jaquez Thyroid disease Mother Cintia Jaquez Hypertension Mother Cintia Jaquez Crohn's disease Mother Cintia Jaquez Diabetes Father Blake Jaquez Cancer Maternal Grandmother Andreina Little COPD Maternal Grandfather Cancer Paternal Grandmother Active Ambulatory Problems Diagnosis Date Noted Acne vulgaris 03/28/2023 Adrenogenital disorder ([facility]) 04/12/2005 Anemia 01/13/2015 Chronic bilateral low back pain with bilateral sciatica 07/08/2014 Bipolar 1 disorder, depressed, mild ([facility]) 03/28/2023 Multiple sclerosis ([facility]) 04/24/2014 JEFF (generalized anxiety disorder) ([facility]) 03/28/2023 History of PCOS 10/05/2015 Adult hypothyroidism ([facility]) 03/28/2023 Iron deficiency anemia 01/15/2015 Irritable bowel syndrome 03/28/2023 Migraine without aura and without status migrainosus, not intractable ([facility]) 08/16/2015 Vitamin D deficiency 03/28/2023 Morbid obesity due to excess calories ([facility]) 09/18/2023 PCOS (polycystic ovarian syndrome) 09/18/2023 Insulin resistance 09/18/2023 Encounter for long-term (current) use of medications 09/18/2023 Resolved Ambulatory Problems Diagnosis Date Noted Bladder dysfunction 07/08/2014 Change in bowel habits 03/28/2023 Demyelinating changes in brain ([facility]) 12/01/2013 Exercise induced bronchospasm ([facility]) 02/08/2012 Frequent UTI 08/11/2015 Headache 01/20/2015 Memory disorder 08/11/2015 BMI 38.0-38.9,adult 03/28/2023 Proteinuria 03/28/2023 Acute non-recurrent pansinusitis 09/18/2023 Past Medical History: Diagnosis Date Bipolar affective disorder, currently depressed, mild ([facility]) Chronic migraine without aura without status migrainosus, not intractable ([facility]) Ear problems September 2022 Fatigue Gastritis Hypothyroid ([facility]) Irritable bowel syndrome with both constipation and diarrhea MS (multiple sclerosis) ([facility]) Pneumonia, bacterial Polycystic ovarian disease Past Surgical History: Procedure Laterality Date CHOLECYSTECTOMY EGD PILONIDAL CYST DRAINAGE TONSILLECTOMY Allergies Allergen Reactions Avonex [Interferon Beta-1a] Anaphylaxis Glatiramer Acetate Unknown Moxifloxacin Unknown Current Outpatient Medications on File Prior to Visit Medication Sig Dispense Refill amphetamine-dextroamphetamine (Adderall) 30 MG tablet Take 1 tablet (30 mg) by mouth in the morningand 1 tablet (30 mg) before bedtime. 60 [...] 20 mg at noon and 20 mg inthe evening and 20 mg before bedtime. Take [...] ears using binocular microscopy under micro with sforeceps Assessment/Plan Diagnoses and all orders for this visit: Chronic mastoiditis, left Other specified hearing loss of left ear, unspecified hearing status on contralateral side Bilateral impacted cerumen Pt reassured mastoid fluid normal for many months after OM Audio to eval apparent HL Joey ears debrided documented in this encounterNevada Regional Medical [id number] Telephone encounter Note* Telephone Encounter - Meek Romero - 04/25/2024 9:15 AM EDTSummary: appointment lvm for patient to call so we can get er scheduled fora follow up in jul with dr barclay [facility]10-03-2024 Miscellaneous Notes* Telephone Encounter - Meek Romero - 04/25/2024 9:15 AM EDTSummary: appointment lvm for patient to call so we can get er scheduled fora follow up in jul with dr barclay documented in this encounterSheltering Arms Hospital10-02-2024 NoteHNO ID: [id number] Author: AUTUMN BARCLAY MD Service: ? Author Type: Physician Type: Progress Notes Filed: 04/24/2024 17:06 Note Text: [facility] FOLLOWUP/ESTABLISHED PATIENT VISIT, Virtual PRINCIPAL NEUROLOGIC [...] disease modifying therapy INTERVAL HISTORY: Ocrevus started 2018, due again 07/15/24 Mychart from patient 04/10/24 [...] shaving in the shower just seen by [employer]- reports ovarian cyst BM each morning after [...] stretched as a teen In ER 10/27/23 -[facility] Mood: Not bad Spasticity: See HPI Bladder: [...] in Neurology Office Visit from 08/29/2023 in [facility] Office Visit from 09/02/2022 in [facility] Upper Extremity Domain T Score 38 34.21 [...] in Neurology Office Visit from 08/29/2023 in [facility] Office Visit from 09/02/2022 in [facility] Sleep Domain T Score 61 58.92 60 [...] Flowsheet Row Office Visit from 08/29/2023 in [facility] Office Visit from 12/04/2020 in [facility] Office Visit from 10/05/2017 in [facility] Processing Speed Total Number Correct 61 59 [...] level of consciousness, orientation, (more content not included)...[facility]10-02-2024 History of Present illness Narrative* Autumn Barclay MD - 04/24/2024 4:26 PM EDT Images from the original note were not included. [facility] FOLLOWUP/ESTABLISHED PATIENT VISIT, Virtual PRINCIPAL NEUROLOGIC [...] 2013 unknown new relapses/MRI changes/breakthrough ocrelizumab 2017 5 11/14/2023 Most recent MRI brain Number [...] there any medication or anything I can doto help this? Particularly the bowel movements. It s usually loose stool and it just comes out I have to run to the bathroom usually because i don t know it s happening until it s too late. Also havesome numbness in my feet/toes lately. Thanks, Natalie had colonoscopy 2021, found nothing 2 years bowel incont, this is worsening hx of blood in stool, told possible IBS, no meds bladder incont is not as bad, can usually hold it bowel incont with coughing numbness in legs and lower back, intermittent , noticed this with shaving in the shower just seen by [employer]- reports ovarian cyst BM each morning after [...] stretched as a teen In ER 10/27/23 -[facility] Mood: Not bad Spasticity: See HPI Bladder: urgency, incontinence- more at night. Wears pad Bowel: see HPI Pain related to today's visit:reviewed on nursing intake documentation Fatigue: Tolerable Sleep: Ok, naps occasionally Memory/Concentration: Losing train of thought Asking for help with nutrition Usual treating team: Rd The patient is accompanied by self. The patient was last seen 08/29/23 , currently taking Ocrevus. Since the patient's last visit the patient reports overall feeling worse. Issues with current therapy: Tolerating medication without side effects. Neuro-QoL Functions (higher=better functioning) Flowsheet Row Appointment from 04/24/2024 in Neurology Office Visit from 08/29/2023 in [facility] Office Visit from 09/02/2022 in [facility] Upper Extremity Domain T Score 38 34.21 [...] in Neurology Office Visit from 08/29/2023 in [facility] Office Visit from 09/02/2022 in [facility] Sleep Domain T Score 61 58.92 60 [...] Flowsheet Row Office Visit from 08/29/2023 in [facility] Office Visit from 12/04/2020 in [facility] Office Visit from 10/05/2017 in [facility] Processing Speed Total Number Correct 61 59 [...] ordered to evaluate for efficacy of multiple sclerosis(MS) disease modifying therapy. Disease activity in MS [...] TO ECOACHING WELLNESS CONSULT TO NUTRITION WELLNESS VENANGO FOLLOW UP The chart was reviewed for possible participation in the following studies:None Patient Health Education Discussed at Visit: Aerobic exercise, Emotional Health/Wellness, Healthy Weight, and Need for PCP Follow-up: In 6 months at [place] with [facility] I spent a total of 30 minutes on the date of the service which included preparing to see the patient, [id number] patient care, completing clinical documentation, and obtaining and/or reviewing separately obtained history. I have communicated my name and active licensure. The patient's identity and physical location wereverified at the time of this visit. Either the patient or their legal investment representative has been informed of the risks and benefits of -- and alternatives to -- treatment through a remote evaluation andconsents to proceed with the evaluation remotely. Autumn Barclay MD [facility] documented in this encounterSheltering Arms Hospital08-26-2024 History of Present illness Narrative* LEONIE Ca - 03/18/2024 3:00 PM EDT Reason for Appointment: Patient ID: Natalie Jaquez is a 28 y.o. female who presents for Well Women Visit Patient presents today for Annual Exam. MEDICATIONS Current Outpatient Medications Medication Instructions amphetamine-dextroamphetamine (Adderall) 30 MG tablet 30 mg, Oral, 2 times daily ARIPiprazole (ABILIFY) 15 mg, Oral, Daily cholecalciferol (Vitamin D-3) 50 MCG (1999 [place]) tablet 1 tablet, Oral, Every 24 hours [...] Date Noted Acne vulgaris 03/28/2023 Adrenogenital disorder ([facility]) 04/12/2005 Anemia 01/13/2015 Chronic bilateral low back pain with bilateral sciatica 07/08/2014 Bipolar 1 disorder, depressed, mild ([facility]) 03/28/2023 Multiple sclerosis ([facility]) 04/24/2014 JEFF (generalized anxiety disorder) ([facility]) 03/28/2023 History of PCOS 10/05/2015 Adult hypothyroidism ([facility]) 03/28/2023 Iron deficiency anemia 01/15/2015 Irritable bowel syndrome 03/28/2023 Migraine without aura and without status migrainosus, not intractable ([facility]) 08/16/2015 Vitamin D deficiency 03/28/2023 Morbid obesity due to excess calories ([facility]) 09/18/2023 PCOS (polycystic ovarian syndrome) 09/18/2023 Insulin resistance 09/18/2023 Encounter for long-term (current) use of medications 09/18/2023 Resolved Ambulatory Problems Diagnosis Date Noted Bladder dysfunction 07/08/2014 Change in bowel habits 03/28/2023 Demyelinating changes in brain ([facility]) 12/01/2013 Exercise induced bronchospasm ([facility]) 02/08/2012 Frequent UTI 08/11/2015 Headache 01/20/2015 Memory disorder 08/11/2015 BMI 38.0-38.9,adult 03/28/2023 Proteinuria 03/28/2023 Acute non-recurrent pansinusitis 09/18/2023 Past Medical History: Diagnosis Date Bipolar affective disorder, currently depressed, mild ([facility]) Chronic migraine without aura without status migrainosus, not intractable ([facility]) Ear problems September 2022 Fatigue Gastritis Hypothyroid ([facility]) Irritable bowel syndrome with both constipation and diarrhea MS (multiple sclerosis) ([facility]) Pneumonia, bacterial Polycystic ovarian disease HISTORY PAST MEDICAL HISTORY SOCIAL HISTORY Past Medical History: Diagnosis Date Acne vulgaris Anemia Bipolar affective disorder, currently depressed, mild ([facility]) BMI 38.0-38.9,adult 03/28/2023 Chronic migraine without aura without status migrainosus, not intractable ([facility]) Ear problems September 2022 Fatigue JEFF (generalized anxiety disorder) ([facility]) Gastritis Hypothyroid ([facility]) Insulin resistance Iron deficiency anemia Irritable bowel syndrome with both constipation and diarrhea MS (multiple sclerosis) ([facility]) PCOS (polycystic ovarian syndrome) Pneumonia, bacterial Polycystic [...] nursing note reviewed. Exam conducted with a setter juice packaging machines present. Vitals: Estimated body mass index is [...] behalf of: LEONIE Ca documented in this encounterNevada Regional Medical [id number] History of Present illness Narrative* Jayme Schmidt MD - 03/18/2024 9:45 AM EDTAssociated Problem(s): Multiple sclerosis (CMS/[facility]) No change and follow up with neurology. Use adderall for fatigue. * Jayme Schmidt MD - 03/18/2024 9:45 AM EDTAssociated Problem(s): Migraine without aura and without status migrainosus, not intractable (CMS/HCC) CHERRY stable and use OTC PRN. * Jayme Schmidt MD - 03/18/2024 9:45 AM EDTAssociated Problem(s): Irritable bowel syndrome Symptoms stable and continue high fiber diet. Use bentyl PRN for cramping. * Jayme Schmidt MD - 03/18/2024 9:44 AM EDTAssociated Problem(s): JEFF (generalized anxiety disorder) (CMS/HCC) Occasional symptoms but tolerable with medication and continue. * Jayme Schmidt MD - 03/18/2024 9:44 AM EDTAssociated Problem(s): Bipolar 1 disorder, depressed, mild (CMS/HCC) Occasional symptoms but tolerable with medication and continue. * Jayme Schmidt MD - 03/18/2024 9:00 AM EDT Images from the original note were [...] cramping and discomfort. Normal BM and no tiffany rrhea or constipation. Uses bentyl PRN which helps. MS unchanged. No weakness or focal deficits. Continues to have fatigue but adderall helps. Recently not able to get adderall and worsening fatigue.Following with neurology and on Ocrevus. Migraines stable. [...] and use OTC PRN. documented in this encounterNevada Regional Medical [id number] NoteHNO ID: [id number] Author: MARIELLE GANNON APRN.[employer] Service: ? Author Type: Nurse Practitioner Type: [...] visit. Either the patient or their legal investment representative has been informed of the risks [...] (RELAFEN) 500 mg table (more content not included)...[facility] [id number] History of Present illness Narrative* Marielle Gannon APRN.[facility] - 02/19/2024 2:47 PM EDT Spine Care Path Low Back Pain - [...] licensure. The patient's identity and physical location wereverified at the time of this visit. Either the patient or their legal investment representative has been informed of the risks and benefits of -- and alternatives to -- treatment through a remote evaluation andconsents to proceed with the evaluation remotely. Patient [...] status intact Neuro Tests: None Data Review: [facility] records independently reviewed MRI Lumbar 11/14/23: Discogenic [...] which included preparing to see the patient, woaz-ce-wueh patient care, completing clinical documentation, obtaining and/or reviewing separately obtained history, and counseling and educating the patient/family/caregiver. documented in this encounterSheltering [facility]06-07-2024 History of Present illness Narrative* Marielle Gannon APRN.CNP - 12/29/2023 1:36 PM EDT Images from the original note [...] SIGNATURE: Marielle Gannon APRN.CNP PATIENT NAME: Natalie Lopez Commarato DATE: December 29, 2023 TIME: 1:37 PM documented in this encounterSheltering Arms Hospital04-23-2024 History of Present illness Narrative* Denise Patricio RN - 11/14/2023 1:00 PM EDT Radiology Service Progress Note DATE [...] SITE APPEARANCE: Clean,Dry and Intact SIGNATURE: Denise Patricio RN PATIENT NAME: Natalie Lopez Commarato DATE: November 14, 2023 TIME: 1:21 PM documented in this encounterSheltering Arms Hospital04-09-2024 Miscellaneous Notes* Telephone Encounter - Brandy Pascal RN - 10/31/2023 1:24 PM EDT Noted patient's reply, routing to Yoly Miller CNP to update. Brandy Pascal RN documented in this encounterSheltering Arms Hospital02-06-2024 History of Present illness Narrative* Yoly Miller APRN.[facility] - 08/29/2023 8:35 AM EST Images from the original note were not included. [facility] FOLLOWUP/ESTABLISHED PATIENT VISIT PRINCIPAL NEUROLOGIC DIAGNOSIS: [...] is also new/increased soft tissue thickening and fluidin the left external auditory canal. Findings raise suspicion for infectious/inflammatory etiology, such as otitis media/mastoiditis, possibly with component of external otitis or reactive change. Correlate withhistory/symptomatology and exam. Most recent MRI cervical/thoracic spine: 01/23/23-Scattered intramedullary lesions compatible with the clinical history of multiple sclerosis. No new T2 intramedullary lesions and no new enhancing intramedullary lesions. No significant volume loss of the upper spinal cord for age. Other Significant Ce rvical Spine Findings: No significant cervical canal or [...] Flowsheet Row Office Visit from 09/02/2022 in [facility] Appointment from 01/31/2022 in [facility] from 08/03/2021 in [facility] Upper Extremity Domain T Score 39 57 [...] Flowsheet Row Office Visit from 09/02/2022 in [facility] Appointment from 01/31/2022 in [facility] from 08/03/2021 in [facility] Sleep Domain T Score 60 59 61 [...] Flowsheet Row Office Visit from 12/04/2020 in [facility] Office Visit from 10/05/2017 in [facility] Processing Speed Total Number Correct 59 70 [...] 5 Biceps 5 5 Triceps 5 5 Bridge Engineer 5 5- Dorsal interossei 5 5- Lower [...] D supplementation Follow-up: In 1 year at [place] with [facility] APC I spent a total of 35 minutes on the date of the service which included preparing to see the patient, cgxl-cj-fylh patient care, completing clinical documentation, obtaining and/or reviewing separately obtained history, performing a medically appropriate examination, counseling and educating the pat ient/family/caregiver, and ordering medications, tests, or procedures. Yoly Miller APRN.[facility] for Multiple Sclerosis documented in this encounterSheltering Arms Hospital09-16-2023 Evaluation note* Encounter Date Diagnosis Assessment Notes Treatment Notes Treatment Clinical Notes Mar, Bronchitis (ICD-10 - J40) Plenty [...] for worsening symptoms or concerns, Acute bronchitis homecare material was printed [employer] Other 07-08-2023 Evaluation note* Encounter Date Diagnosis Assessment Notes Treatment Notes Treatment Clinical Notes Jan, Contact with and (viera spected) exposure to covid-19 (ICD-10 - Z20.822) Jan,OVID-19 (ICD-10 - U07.1)Discharge Instructions for COVID-19 (Suspected or Confirmed ) material was printed Drink plenty fluids, get plenty of rest. Continue home meds as prescribed. You must quarantine for 5 days after the onset of your symptoms of COVID. Follow-up with your family physician if no improvement in 2 to 3 days [facility] Other 07-03-2023 History of Present illness Narrative* [...] spine SIGNATURE: RT Noah(R) PATIENT NAME: Natalie Dayaravahid DATE: January 23, 2023 TIME: 2:48 PM documented in this [facility]04-30-2023 Evaluation note* Encounter Date Diagnosis Assessment Notes Treatment Notes Treatment Clinical Notes Oct, Contact with and (viera spected) exposure to other viral communicable diseases (ICD-10 - Z20.828) Oct,cute viral bronchitis (ICD-10 - J20.8) Advised patient [...] for fever/discomfort, cool mist humidifier. May use [place] as needed for cough, do not take any other OTCs while using [place]. Patient to follow up with PCP in 2-3 days. Immediate eval if SOB, difficulty breathing, chest pain, dizziness, or other concerning symptoms. Patient verbalizes understanding and is agreeable to treatment plan. [employer] Other [id number] History of Present illness Narrative* Sammie Galindo Research Coordinator - 09/12/2022 3:18 PM EST Retroactive MS SmartForm Completion -Sammie Galindo Research Coordinator documented in this encounterSheltering Arms Hospital02-10-2023 Instructions* Patient Instructions* Yoly Miller APRN.CNP - 09/02/2022 2:58 PM EST -Can consider Provigil or Nuvigil for MS fatigue documented in this [facility]02-10-2023 History of Present illness Narrative* Yoly Miller APRN.CNP - 09/02/2022 2:29 PM EST Images from the original note were not included. [facility] FOLLOWUP/ESTABLISHED PATIENT VISIT PRINCIPAL NEUROLOGIC DIAGNOSIS: [...] taking care of mom 13/02, does have [employer] coming in several days per week to [...] of thought Neuro-QoL Functions (higher=better functioning) Flowsheet [facility] Office Visit from 09/02/2022 in [facility] Appointment from 01/31/2022 in [facility] from 08/03/2021 in [facility] Upper Extremity Domain T Score 39 57 [...] Flowsheet Row Office Visit from 09/02/2022 in [facility] Appointment from 01/31/2022 in [facility] from 08/03/2021 in [facility] Sleep Domain T Score 60 59 61 [...] sulfate, norgestimate-ethinyl estradiol, and levothyroxine. EXAM: LMP 08/22/2015 Multiple Sclerosis Performance Test Flowsheet Row Office Visit from 12/04/2020 in [facility] Office Visit from 10/05/2017 in [facility] Processing Speed Total Number Correct 59 70 [...] 5 Biceps 5 5 Triceps 5 5 Bridge Engineer 5 5 Dorsal interossei 5 5 Lower [...] of MS symptoms. Discussed asking SW with [facility], whatother resources she and her mom would [...] D supplementation Follow-up: In 1 year at [facility] I spent a total of 40 minutes on the date of the service which included preparing to see the patient, qqih-qm-zkrc patient care, completing clinical documentation, obtaining and/or reviewing separately obtained history, performing a medically appropriate examination, counseling and educating the pat ient/family/caregiver, and ordering medications, tests, or procedures. Yoly Miller APRN.[facility] for Multiple Sclerosis documented in this encounterSheltering Arms Hospital01-04-2023 Evaluation note* Encounter Date Diagnosis Assessment Notes Treatment Notes Treatment Clinical Notes Jul, Impacted cerumen, left ear (ICD- 10 - H61.22) Jul,cute otitis externa of left ear, unspecified type (ICD-10 - H60.502)Otitis externa home care material was printed Drink plenty fluids, get plenty of rest. Use eardrops as prescribed. Take Tylenol or Motrin as needed for aches pains or fevers. Follow-up with your family physician if no improvement in 2 to 3 days. Jul,Sore throat (ICD-10 - J02.9) [facility] Other 11-30-2022 NoteOPERATIVE NOTE OPERATION DATE: 06/22/2022 [...] at age 47. CC: Jayme Schmidt M.D.[facility] [id number] NoteChief Complaint consultation for abdominal pain, bowel [...] MS, hypothyroidism, migraines, PCOS, GERD, bipolar d/o; EJFF, referred for long h/o intermittent loose stools [...] of pilonidal cyst, Tonsil (more content not included)...[facility] HospitalComment on above:Result Comment: Electronically Signed By: Yusuf CASTRO MD\Date and Time Signed: 05/24/22 15:03 [id number] History of Present illness Narrative* RT Noah(R) [...] Sclerosis SIGNATURE: RT Noah([place]) PATIENT NAME: Natalie Daychapinvahid DATE: 2021 TIME: 11:08 AM documented in this encounterSheltering Arms Hospital01-13-2022 NotePatient Education Materials Name: BarblennoxNatalie Current Date: 08/05/2021 15:19:24 [place] : 1995 The following sheet(s) are the Patient Education Leaflets for ShelbyvahidNatalie Infectious Disease Coronavirus Disease 2019 (COVID-19): Caring [...] bandana, T- shirt, or other cloth. [facility] has instructions on how to [...] caffeine, juices, tea, and soup. ? Taking gtob-jqf-rvhpeci (OTC) pain medicine. These are used to [...] ? Wear protective clot (more content not included)...[facility]01-13-2022 NoteThis is a Telephone Appointment *This visit [...] or wheezing. She has been taken Tylenol pbxn-yjk-twveizd for symptom management. Review of Systems Constitutional: [...] infection Continue to treat your symptoms with nbzx-alh-tbwhvon medication. Drink plenty of fluids and take [...] to 2 mg at night Vitamin D3 [id number] u/day Optional: Famotidine 20-40 mg/day (for reflux/stomach [...] Electronically signed by Lakeisha Paulino 08/05/21 15:12 [facility]08-20-2021 NotePatient Education Materials Name: Natalie Jaquez Current Date: 03/12/2021 16:03:51 [place] : 1995 The following sheet(s) are the Patient Education Leaflets for Barblennox Natalie M Ambulatory Assessment/Plan 1. Chest congestion covid: negative [...] secretions in the nose and lungs. ? Pkck-jkr-trtvthm cold medicines will not shorten the length of time you?re sick, but they may be helpful for the following symptoms: cough, sore throat, and nasal and sinus congestion. If you take prescription medicines, ask your healthcare provider or pharmacist which hbcb-icq-hdvzomh medicines are safe to use. (Note: Don't [...] goes along with a muffled voice ? [id number] [employer] [place] [address]. All rights reserved. This information is not intended as a substitute for professional medical care. Always follow your healthcare professional's instructions.[facility]08-20-2021 NoteProcedure: Upright PA and lateral views of the chest. Clinical Information: Shortness of breath Comparison: None. Findings: Lungs/pleura: Clear lungs. No pleural effusion or pneumothorax. Heart/mediastinum: Normal. Bones/soft tissue: Grossly normal. IMPRESSION: Normal chest radiographs. Final Dictated by: Moriah Wynn MD Dictated DT/TM: 03/12/2021 3:47 pm Signed by: Moriah Wynn MD Signed (Electronic Signature): 03/12/2021 3:48 pm (If Report Is Signed, Electronically Signed in Other Vendor System)[facility]08-02-2021 NotePatient Education Materials Name: Natalie Jaquez Current Date: 02/22/2021 17:09:41 [place] : 1995 [facility]: [id number] The following sheet(s) are the Patient Education [...] taking part in activities with lots of rtls-od-vzfb contact can also put you at risk. [...] or as directed by your provider ? [phone] [employer]. [address] [place] [address]. All rights reserved. This information is not [...] 30 g, 0 Refill(s), 03/08/21 17:05:00 EDT,Pharmacy: [facility]/pharmacy #[id number] Evaluation + Plan note No data available for this section General Surgery [place] EvAmeiboation note* Diagnosis Multiple sclerosis (HCC)- Primary Multiple sclerosis documented in this encounter [facility]* Diagnosis Multiple sclerosis (HCC) Multiple sclerosis Encounter for long-term (current) use of medications Encounter for long-term (current) use of other medications [facility] Multiple [facility] ([facility])- Primary Multiple sclerosis documented in this encounter [facility]* Diagnosis Multiple sclerosis (HCC)- Primary Multiple sclerosis Encounter for long-term (current) use of medications Encounter for long-term (current) use of other medications [facility] Diagnosis Multiple sclerosis (HCC)- Primary Multiple sclerosis [facility]* Diagnosis Multiple sclerosis (HCC) Multiple sclerosis Encounter for long-term (current) use of medications Encounter for long-term (current) use of other medications [facility] Diagnosis Spinal stenosis of lumbar region without neurogenic claudication- Primary Spinal stenosis, lumbar region, without neurogenic claudication Multiple sclerosis (HCC) Multiple sclerosis [facility] Diagnosis Multiple sclerosis (HCC) Multiple sclerosis [facility] Diagnosis Spinal stenosis of lumbar region without neurogenic claudication Spinal stenosis, lumbar region, without neurogenic claudication [facility]* Diagnosis Onset Date Resolution Status Bronchitis noneactive [facility] Work Phone: Evaluation note* Diagnosis Onset Date Resolution Status Bronchitis noneactiveBronchitisacute [facility] Work Phone: Evaluation note* Diagnosis Radiculopathy, lumbar region- Primary Thoracic or lumbosacral neuritis or radiculitis, unspecified Spinal stenosis, lumbar region, without neurogenic claudication Lumbar spondylosis Lumbosacral spondylosis without myelopathy Multiple sclerosis (HCC) Multiple sclerosis documented in this encounter [facility]* Diagnosis Multiple sclerosis (HCC)- Primary Multiple sclerosis [facility]* Diagnosis Radiculopathy, lumbar region- Primary Thoracic or lumbosacral neuritis or radiculitis, unspecified Lumbar spondylosis Lumbosacral spondylosis without myelopathy documented in this encounter [facility]* Diagnosis Chronic fatigue syndrome- Primary Multiple sclerosis (HCC) Multiple sclerosis documented in this encounter [facility]* Diagnosis Bipolar 1 disorder, depressed, mild (CMS/HCC)- Primary JEFF (generalized anxiety disorder) ([facility]/HCC) Generalized anxiety disorder Multiple sclerosis (CMS/HCC) Multiple [...] abnormal glucose Vitamin D deficiency Adult hypothyroidism ([facility]/HCC) Unspecified hypothyroidism Encounter for long-term (current) use of medications Encounter for long-term (current) use of other medications Iron deficiency anemia, unspecified iron deficiency anemia type Migraine without aura and without status migrainosus, not intractable (CMS/HCC) Acute non-recurrent pansinusitis Morbid obesity due to excess calories ([facility]/HCC) Body mass index [BMI] 40.0-44.9, adult (Z68.41) [...] cerumen Impacted cerumen [facility]* Diagnosis Bipolar 1 disorder, depressed, mild ([facility]/HCC)- Primary JEFF (generalized anxiety disorder) ([facility]/HCC) Generalized anxiety disorder Multiple sclerosis ([facility]/HCC) Multiple sclerosis Irritable bowel syndrome with both constipation and diarrhea Insulin resistance Other abnormal glucose Vitamin D deficiency Adult hypothyroidism ([facility]/HCC) Unspecified hypothyroidism Encounter for long-term (current) use of medications Encounter for long-term (current) use of other medications Iron deficiency anemia, unspecified iron deficiency anemia type Migraine without aura and without status migrainosus, not intractable (CMS/HCC) Acute non-recurrent pansinusitis Morbid obesity due to excess calories ([facility]) Body mass index [BMI] 40.0-44.9, adult (Z68.41) PCOS (polycystic ovarian syndrome) Polycystic ovaries Bipolar 1 disorder, depressed, mild (CMS/HCC)- Primary JEFF (generalized anxiety disorder) ([facility]/HCC) Generalized anxiety disorder Migraine without aura and without status migrainosus, not intractable ([facility]/HCC) Multiple sclerosis ([facility]/HCC) Multiple sclerosis Irritable bowel syndrome with both constipation and diarrhea Bipolar 1 disorder, depressed, mild ([facility]/HCC)- Primary JEFF (generalized anxiety disorder) ([facility]/HCC) Generalized anxiety disorder Multiple sclerosis ([facility]/HCC) Multiple sclerosis Irritable bowel syndrome with diarrhea Irritable bowel syndrome Class 3 severe obesity due to excess calories without serious comorbidity with body mass index (BMI) of 40.0 to 44.9 in adult ([facility]) documented in this encounter [facility]* Diagnosis Bipolar 1 disorder, depressed, mild ([facility]/HCC)- Primary JEFF (generalized anxiety disorder) ([facility]/HCC) Generalized anxiety disorder Multiple sclerosis ([facility]/HCC) Multiple sclerosis Irritable bowel syndrome with both constipation and diarrhea Insulin resistance Other abnormal glucose Vitamin D deficiency Adult hypothyroidism ([facility]) Unspecified hypothyroidism Encounter for long-term (current) use of medications Encounter for long-term (current) use of other medications Iron deficiency anemia, unspecified iron deficiency anemia type Migraine without aura and without status migrainosus, not intractable ([facility]/HCC) Acute non-recurrent pansinusitis Morbid obesity due to excess calories ([facility]) Body mass index [BMI] 40.0-44.9, adult (Z68.41) [...] for weight management documented in this encounter [facility]Evaluation [facility]* Diagnosis Multiple sclerosis (CMS/HCC) Multiple sclerosis documented in this encounter [facility] HealthcareEvaluation note* Diagnosis Bipolar 1 disorder, depressed, mild (CMS/HCC)- Primary JEFF (generalized anxiety disorder) (CMS/HCC) Generalized anxiety disorder Migraine without aura and without status migrainosus, not intractable (CMS/HCC) Multiple sclerosis (CMS/HCC) Multiple sclerosis Irritable bowel syndrome with both constipation and diarrhea documented in this encounter [facility] HealthcareEvaluation note* Diagnosis Well woman exam with routine gynecological exam Routine gynecological examination PCOS (polycystic ovarian syndrome) Polycystic ovaries documented in this encounter [facility]* Diagnosis Multiple sclerosis (CMS/HCC) Multiple sclerosis documented in this encounter [facility]* Diagnosis Multiple sclerosis (HCC)- Primary Multiple sclerosis [facility] Multiple [facility] (HCC) Multiple sclerosis [facility] Diagnosis Relapsing remitting multiple sclerosis (HCC)- Primary Multiple sclerosis [facility]* Diagnosis Bipolar 1 disorder, depressed, mild [...] pansinusitis Morbid obesity due to excess calories ([facility]/HCC) Body mass index [BMI] 40.0-44.9, adult (Z68.41) PCOS (polycystic ovarian syndrome) Polycystic ovaries Bipolar 1 disorder, depressed, mild (CMS/HCC)- Primary JEFF (generalized anxiety disorder) ([facility]/HCC) Generalized anxiety disorder Migraine without aura and [...] (BMI) of 40.0 to 44.9 in adult ([facility]) Bipolar 1 disorder, depressed, mild ([facility]/HCC)- Primary JEFF (generalized anxiety disorder) ([facility]) Generalized anxiety disorder Multiple sclerosis ([facility]) Multiple sclerosis Tinea pedis, unspecified laterality Class 3 severe obesity due to excess calories without serious comorbidity with body mass index (BMI) of 40.0 to 44.9 in adult ([facility]) documented in this encounter [facility] HealthcareEvaluation note* Diagnosis Bipolar 1 disorder, depressed, mild ([facility]/HCC)- Primary JEFF (generalized anxiety disorder) ([facility]) Generalized anxiety disorder Multiple sclerosis ([facility]) Multiple sclerosis Irritable bowel syndrome with both constipation and diarrhea Insulin resistance Other abnormal glucose Vitamin D deficiency Adult hypothyroidism ([facility]) Unspecified hypothyroidism Encounter for long-term (current) use of medications Encounter for long-term (current) use of other medications Iron deficiency anemia, unspecified iron deficiency anemia type Migraine without aura and without status migrainosus, not intractable ([facility]/HCC) Acute non-recurrent pansinusitis Morbid obesity due to excess calories ([facility]) Body mass index [BMI] 40.0-44.9, adult (Z68.41) PCOS (polycystic ovarian syndrome) Polycystic ovaries Bipolar 1 disorder, depressed, mild (CMS/HCC)- Primary JEFF (generalized anxiety disorder) ([facility]/HCC) Generalized anxiety disorder Migraine without aura and without status migrainosus, not intractable (CMS/HCC) Multiple sclerosis ([facility]/HCC) Multiple sclerosis Irritable bowel syndrome with both constipation and diarrhea Bipolar 1 disorder, depressed, mild ([facility]/HCC)- Primary JEFF (generalized anxiety disorder) ([facility]) Generalized anxiety disorder Multiple sclerosis ([facility]/HCC) Multiple sclerosis Irritable bowel syndrome with diarrhea Irritable bowel syndrome Class 3 severe obesity due to excess calories without serious comorbidity with body mass index (BMI) of 40.0 to 44.9 in adult ([facility]) Bipolar 1 disorder, depressed, mild ([facility])- Primary JEFF (generalized anxiety disorder) ([facility]) Generalized anxiety disorder Multiple sclerosis ([facility]) Multiple sclerosis Tinea pedis, unspecified laterality Class 3 severe obesity due to excess calories without serious comorbidity with body mass index (BMI) of 40.0 to 44.9 in adult ([facility]) Weight gain Other symptoms concerning nutrition, metabolism, and development Encounter for weight management documented [facility] Diagnosis Bipolar 1 disorder, depressed, mild ([facility])- Primary JEFF (generalized anxiety disorder) ([facility]) Generalized anxiety disorder Multiple sclerosis ([facility]) Multiple sclerosis Irritable bowel syndrome with both constipation and diarrhea Insulin resistance Other abnormal glucose Vitamin D deficiency Adult hypothyroidism ([facility]) Unspecified hypothyroidism Encounter for long-term (current) use of medications Encounter for long-term (current) use of other medications Iron deficiency anemia, unspecified iron deficiency anemia type Migraine without aura and without status migrainosus, not intractable ([facility]) Acute non-recurrent pansinusitis Morbid obesity due to excess calories ([facility]) Body mass index [BMI] 40.0-44.9, adult (Z68.41) PCOS (polycystic ovarian syndrome) Polycystic ovaries Bipolar 1 disorder, depressed, mild ([facility])- Primary JEFF (generalized anxiety disorder) ([facility]) Generalized anxiety disorder Migraine without aura and without status migrainosus, not intractable ([facility]) Multiple sclerosis ([facility]) Multiple sclerosis Irritable bowel syndrome with both constipation and diarrhea Bipolar 1 disorder, depressed, mild ([facility])- Primary JEFF (generalized anxiety disorder) ([facility]) Generalized anxiety disorder Multiple sclerosis ([facility]) Multiple sclerosis Irritable bowel syndrome with diarrhea Irritable bowel syndrome Class 3 severe obesity due to excess calories without serious comorbidity with body mass index (BMI) of 40.0 to 44.9 in adult ([facility]) Bipolar 1 disorder, depressed, mild (CMS/HCC)- Primary JEFF (generalized anxiety disorder) (CMS/HCC) Generalized anxiety disorder Multiple sclerosis (CMS/HCC) Multiple sclerosis Tinea pedis, unspecified laterality Class 3 severe obesity due to excess calories without serious comorbidity with body mass index (BMI) of 40.0 to 44.9 in adult ([facility]) Encounter for weight management documented in this encounter [facility]* Diagnosis Bipolar 1 disorder, depressed, mild (CMS/HCC)- Primary JEFF (generalized anxiety disorder) ([facility]/HCC) Generalized anxiety disorder Multiple sclerosis ([facility]/HCC) Multiple sclerosis Irritable bowel syndrome with both constipation and diarrhea Insulin resistance Other abnormal glucose Vitamin D deficiency Adult hypothyroidism ([facility]) Unspecified hypothyroidism Encounter for long-term (current) use of medications Encounter for long-term (current) use of other medications Iron deficiency anemia, unspecified iron deficiency anemia type Migraine without aura and without status migrainosus, not intractable ([facility]) Acute non-recurrent pansinusitis Morbid obesity due to excess calories ([facility]) Body mass index [BMI] 40.0-44.9, adult (Z68.41) PCOS (polycystic ovarian syndrome) Polycystic ovaries Bipolar 1 disorder, depressed, mild (CMS/HCC)- Primary JEFF (generalized anxiety disorder) ([facility]/HCC) Generalized anxiety disorder Migraine without aura and without status migrainosus, not intractable ([facility]/HCC) Multiple sclerosis ([facility]/HCC) Multiple sclerosis Irritable bowel syndrome with both constipation and diarrhea Bipolar 1 disorder, depressed, mild (CMS/HCC)- Primary JEFF (generalized anxiety disorder) ([facility]/HCC) Generalized anxiety disorder Multiple sclerosis ([facility]/HCC) Multiple sclerosis Irritable bowel syndrome with diarrhea Irritable bowel syndrome Class 3 severe obesity due to excess calories without serious comorbidity with body mass index (BMI) of 40.0 to 44.9 in adult ([facility]) Bipolar 1 disorder, depressed, mild ([facility]/HCC)- Primary JEFF (generalized anxiety disorder) ([facility]/HCC) Generalized anxiety disorder Multiple sclerosis ([facility]/HCC) Multiple sclerosis Tinea pedis, unspecified laterality Class 3 severe obesity due to excess calories without serious comorbidity with body mass index (BMI) of 40.0 to 44.9 in adult ([facility]) Encounter for weight management documented in this encounter [facility]* Diagnosis Relapsing remitting multiple sclerosis (HCC) [facility] Bipolar 1 disorder, depressed, [...] (BMI) of 40.0 to 44.9 in adult Bipolar 1 disorder, depressed, mild (CMS/HCC)- Primary JEFF (generalized anxiety disorder) (CMS/HCC) Generalized anxiety disorder Multiple sclerosis (CMS/HCC) Multiple sclerosis Tinea pedis, unspecified laterality Class 3 severe obesity due to excess calories without serious comorbidity with body mass index (BMI) of 40.0 to 44.9 in adult Adult hypothyroidism (CMS/HCC) Unspecified hypothyroidism [facility] Bipolar 1 disorder, depressed, mild [...] (BMI) of 40.0 to 44.9 in adult Bipolar 1 disorder, depressed, mild (CMS/HCC)- Primary JEFF (generalized anxiety disorder) (CMS/HCC) Generalized anxiety disorder Multiple sclerosis (CMS/HCC) Multiple sclerosis Tinea pedis, unspecified laterality Class 3 severe obesity due to excess calories without serious comorbidity with body mass index (BMI) of 40.0 to 44.9 in adult Encounter for weight management [facility] Multiple [facility] ([facility])- Primary Multiple sclerosis Continuous leakage of urine Continuous leakage Diarrhea, unspecified type [facility] Diagnosis Bipolar 1 disorder, depressed, mild (HCC)- Primary JEFF (generalized anxiety disorder) Generalized anxiety disorder Multiple sclerosis (HCC) Multiple sclerosis Irritable bowel syndrome with both constipation and diarrhea Insulin resistance Other abnormal glucose Vitamin D deficiency Adult hypothyroidism Unspecified hypothyroidism Encounter for long-term (current) use of medications Encounter for long-term (current) use of other medications Iron deficiency anemia, unspecified iron deficiency anemia type Migraine without aura and without status migrainosus, not intractable Acute non-recurrent pansinusitis Morbid obesity due to excess calories (CMS-HCC) Body mass index [BMI] 40.0-44.9, adult (Z68.41) PCOS (polycystic ovarian syndrome) Polycystic ovaries Bipolar 1 disorder, depressed, mild (HCC)- Primary JEFF (generalized anxiety disorder) Generalized anxiety disorder Migraine without aura and without status migrainosus, not intractable Multiple sclerosis (HCC) Multiple sclerosis Irritable bowel syndrome with both constipation and diarrhea Bipolar 1 disorder, depressed, mild (HCC)- Primary JFEF (generalized anxiety disorder) Generalized anxiety disorder Multiple sclerosis (HCC) Multiple sclerosis Irritable bowel syndrome with diarrhea Irritable bowel syndrome Class 3 severe obesity due to excess calories without serious comorbidity with body mass index (BMI) of 40.0 to 44.9 in adult [place] Bipolar 1 disorder, depressed, mild (HCC)- Primary JEFF (generalized anxiety disorder) Generalized anxiety disorder Multiple sclerosis (HCC) Multiple sclerosis Tinea pedis, unspecified laterality Class 3 severe obesity due to excess calories without serious comorbidity with body mass index (BMI) of 40.0 to 44.9 in adult ([facility] Bipolar 1 disorder, depressed, mild (HCC)- Primary JEFF (generalized anxiety disorder) Generalized anxiety disorder Multiple sclerosis (HCC) Multiple sclerosis Insulin resistance Other abnormal glucose Class 3 severe obesity due to excess calories without serious comorbidity with body mass index (BMI) of 45.0 to 49.9 in adult ([facility] Annual physical exam Routine general medical examination at a health care facility Tinea cruris Dermatophytosis of groin and perianal area documented in [facility] encounter [facility]* Diagnosis Bipolar 1 disorder, depressed, mild (HCC)- Primary JEFF (generalized anxiety disorder) Generalized anxiety disorder Multiple sclerosis (HCC) Multiple sclerosis Irritable bowel syndrome with both constipation and diarrhea Insulin resistance Other abnormal glucose Vitamin D deficiency Adult hypothyroidism Unspecified hypothyroidism Encounter for long-term (current) use of medications Encounter for long-term (current) use of other medications Iron deficiency anemia, unspecified iron deficiency anemia type Migraine without aura and without status migrainosus, not intractable Acute non-recurrent pansinusitis Morbid obesity due to excess calories ([facility] Body mass index [BMI] 40.0-44.9, adult (Z68.41) PCOS (polycystic ovarian syndrome) Polycystic ovaries Bipolar 1 disorder, depressed, mild (HCC)- Primary JEFF (generalized anxiety disorder) Generalized anxiety disorder Migraine without aura and without status migrainosus, not intractable Multiple sclerosis (HCC) Multiple sclerosis Irritable bowel syndrome with both constipation and diarrhea Bipolar 1 disorder, depressed, mild (HCC)- Primary JEFF (generalized anxiety disorder) Generalized anxiety disorder Multiple sclerosis (HCC) Multiple sclerosis Irritable bowel syndrome with diarrhea Irritable bowel syndrome Class 3 severe obesity due to excess calories without serious comorbidity with body mass index (BMI) of 40.0 to 44.9 in adult ([facility] Bipolar 1 disorder, depressed, mild ([facility])- Primary JEFF (generalized anxiety disorder) Generalized anxiety disorder Multiple sclerosis ([facility]) Multiple sclerosis Tinea pedis, unspecified laterality Class 3 severe obesity due to excess calories without serious comorbidity with body mass index (BMI) of 40.0 to 44.9 in adult ([facility] Bipolar 1 disorder, depressed, mild ([facility])- Primary JEFF (generalized anxiety disorder) Generalized anxiety disorder Multiple sclerosis ([facility]) Multiple sclerosis Insulin resistance Other abnormal glucose Class 3 severe obesity due to excess calories without serious comorbidity with body mass index (BMI) of 45.0 to 49.9 in adult ([facility] Annual physical exam Routine general medical examination at a health care facility Tinea cruris Dermatophytosis of groin and perianal area JEFF (generalized anxiety disorder) Generalized anxiety disorder [facility]* Diagnosis Onset Date Resolution Status Admit Date Bipolar 1 disorder, depressed, mild acuteSept2024 10:51amClass 3 severe obesity due to excess calories with body mass index (BMI) ofacuteSept2024 10:51amGAD (generalized anxiety disorder)acuteSept2024 10:51amMultiple sclerosisacute Starr 2024 10:51am [facility] Work Phone: History general Narrative - Reported* Type Description Date Medical History Esophageal reflux Medical HistoryMultiple sclerosisMedical HistoryPolycystic ovarian disease Medical HistoryHypothyroidMedical HistorydepressionMedical HistoryAnxiety Surgical HistorytonsillectomySurgical HistorycholecystectomyHospitalization Historysee above [facility] Other Hospital Discharge instructions No data available for this section General Surgery Ann[place]ie Progress note No data available for this section General Surgery [place] Reason for referral (narrative)No reason for referral information availableC[facility] Work Phone: Reason for visit Narrative* [place] Prior Authorization (Routine) - AuthorizedSpecialtyDiagnoses / ProceduresReferred By Contact Referred To Contact Diagnoses Multiple sclerosis (HCC) MS Procedures INJECTION, OCRELIZUMAB, 1 MG OCRELIZUMAB Yoly Miller APRN.[employer] [address] [id number] Phone: tel: fax: Multiple Sclerosis [address] [place] [address] Phone: tel: fax: Referral IDStatusReasonStart DateExpiration DateVisits RequestedVisits [id number] Clearance Not Met - Admin/Development Executive/Director Advise to Postpone/Reschedule or Not Proceed [facility] Reason for Referral SpecialtyDiagnoses / ProceduresReferred By ContactReferred To ContactMR IMAGING Diagnoses Multiple sclerosis (HCC) Encounter for long-term (current) use of medications Procedures MRI BRAIN WO/W IVCON MRI BRAIN PALLAVIO Autumn Barclay MD [address] [place] [address] Mr Imaging Referral IDStatusReasonStart DateExpiration DateVisits RequestedVisits [id number] Auto-Generated Referral /[id number] / ProceduresReferred By ContactReferred To ContactMR IMAGING Diagnoses Multiple sclerosis (HCC) Encounter for long-term (current) use of medications Procedures MRI CERVICAL SPINE WO/W IVCON MRI SPINAL CANAL CERVICAL W/O & W/CONTR MATRL Yoly Miller APRN.[employer] [address] [place] [address] Mr Imaging Referral IDStatusReasonStart DateExpiration DateVisits RequestedVisits [id number] Review Auto-Generated Referral /[id number] / ProceduresReferred By ContactReferred To ContactMR IMAGING Diagnoses Multiple sclerosis (HCC) Encounter for long-term (current) use of medications Procedures MRI BRAIN WO/W IVCON MRI BRAIN BRAIN STEM W/O W/CONTRAST MATERIAL Yoly Miller, FUEL MANAGEMENT HANDLER.[employer] [address] [facility] [place] [place] [address] Mr Imaging Referral IDStatusReasonStart DateExpiration DateVisits RequestedVisits [id number] Review Auto-Generated Referral /[id number] IDStatusReasonStart DateExpiration DateVisits RequestedVisits [id number] Auto-Generated Referral 1Referral IDStatusReasonStart DateExpiration DateVisits RequestedVisits [id number] Auto-Generated Referral [id number] / ProceduresReferred By ContactReferred To ContactMR IMAGING Diagnoses Spinal stenosis of lumbar region without neurogenic claudication Procedures MRI LUMBAR SPINE WO IVCON MRI SPINAL CANAL LUMBAR W/O CONTRAST MATERIAL Yoly Miller, FUEL MANAGEMENT HANDLER.[employer] [address] [place] [address] Mr Imaging [place] [address] Referral IDStatusReasonStart DateExpiration DateVisits RequestedVisits [id number] Review Auto-Generated Referral [id number] / ProceduresReferred By ContactReferred To ContactMR IMAGING Diagnoses Multiple sclerosis (HCC) Procedures MRI BRAIN WO/W IVCON MRI BRAIN BRAIN STEM W/O W/CONTRAST MATERIAL Yoly Miller, FUEL MANAGEMENT HANDLER.[employer] [address] [id number] Mr Imaging [place] [address] Referral IDStatusReasonStart DateExpiration DateVisits RequestedVisits [id number] Auto-Generated Referral 1Referral IDStatusReasonStart DateExpiration DateVisits RequestedVisits [id number] Auto-Generated Referral /[id number] / ProceduresReferred By ContactReferred To ContactREHAB AND SPORTS THERAPY INS Diagnoses Radiculopathy, lumbar region Spinal stenosis, lumbar region, without neurogenic claudication Lumbar spondylosis Procedures CONSULT TO PHYSICAL THERAPY PHYSICAL THERAPY EVALUATION HIGH COMPLEX 45 MINS Marielle Gannon, FUEL MANAGEMENT HANDLER.[employer] [address] [id number] [facility] [place] [address] [place] [address] Referral IDStatusReasonStart DateExpiration DateVisits RequestedVisits [id number] Review Auto-Generated Referral /[id number] / ProceduresReferred By ContactReferred To ContactXR IMAGING Diagnoses Radiculopathy, lumbar region Spinal stenosis, lumbar region, without neurogenic claudication Lumbar spondylosis Procedures XR LUMBAR GENERAL 3V AP/LAT/L5-S1 RADEX SPINE LUMBOSACRAL 2/3 VIEWS Marielle Gannon, FUEL MANAGEMENT HANDLER.[employer] [address] [place] [address] Xr Imaging [place] [address] Referral IDStatusReasonStart DateExpiration DateVisits RequestedVisits [id number] Review Auto-Generated Referral /[id number] / ProceduresReferred By ContactReferred To Contact Diagnoses Chronic fatigue syndrome Multiple sclerosis (HCC) Procedures CONSULT TO NUTRITION WELLNESS MEDICAL NUTRITION ASSMT&IVNTJ INDIV EACH 15 SC MEDICAL NUTRITION ASSMT&IVNTJ INDIV EACH 15 SC MEDICAL NUTRITION ASSMT&IVNTJ INDIV EACH 15 SC MEDICAL NUTRITION ASSMT&IVNTJ INDIV EACH 15 SC Autumn Barclay MD [address] [place] [address] Referral IDStatusReasonStart DateExpiration DateVisits RequestedVisits [id number] PCP Requested Referral [id number] / ProceduresReferred By ContactReferred To ContactMR IMAGING Diagnoses Multiple sclerosis (HCC) Procedures MRI THORACIC SPINE WO/W IVCON MRI SPINAL CANAL THORACIC W/O & W/CONTR Autumn Easton MD [address] [facility] [place] [place] [address] Mr Imaging [place] [address] Referral IDStatusReasonStart DateExpiration DateVisits RequestedVisits [id number] Request Auto-Generated Referral [id number] / ProceduresReferred By ContactReferred To ContactMR IMAGING Diagnoses Multiple sclerosis (HCC) Procedures MRI CERVICAL SPINE WO/W IVCON MRI SPINAL CANAL CERVICAL W/O & W/CONTR Autumn Easton MD [address] [place] [address] Mr Imaging [place] [address] Referral IDStatusReasonStart DateExpiration DateVisits RequestedVisits [id number] Request Auto-Generated Referral [id number] / ProceduresReferred By ContactReferred To ContactREHAB AND SPORTS THERAPY INS Diagnoses Chronic fatigue syndrome Procedures CONSULT TO PHYSICAL THERAPY PHYSICAL THERAPY EVALUATION HIGH COMPLEX 45 MINS Autumn Barclay MD [address] [place] [address] [facility] [place] [address] Referral IDStatusReasonStart DateExpiration DateVisits RequestedVisits [id number] Review Auto-Generated Referral [id number] / ProceduresReferred By ContactReferred To Contact Diagnoses Multiple sclerosis (CMS/HCC) Jayme Schmidt MD [address] [place] [place] [address] Referral IDStatusReasonStart DateExpiration DateVisits RequestedVisits [id number] Review/[id number] IDStatusReasonStart DateExpiration DateVisits RequestedVisits [id number] Referral IDStatusReasonStart DateExpiration DateVisits RequestedVisits [id number] IDStatusReasonStart DateExpiration Date Visits RequestedVisits [id number] Auto-Generated Referral /[id number] IDStatusReasonStart DateExpiration DateVisits RequestedVisits [id number] Auto-Generated Referral /[id number] / ProceduresReferred By ContactReferred To ContactMERCY HEALTH ST. [facility] Diagnoses Relapsing remitting multiple sclerosis (HCC) Procedures CONSULT TO PHYSICAL THERAPY PHYSICAL THERAPY EVALUATION HIGH COMPLEX 45 MINS Autumn Barclay MD [address] [place] [address] [facility] [place] [address] Referral IDStatusReasonStart DateExpiration DateVisits RequestedVisits [id number] Review Auto-Generated Referral [id number] / ProceduresReferred By ContactReferred To Contact IMAGING Diagnoses Relapsing remitting multiple sclerosis (HCC) Procedures MRI BRAIN WO/W IVCON MRI BRAIN BRAIN STEM W/O W/CONTRAST MATERIAL Autumn Barclay MD [address] [place] [address] Mr Imaging [place] [address] Referral IDStatusReasonStart DateExpiration DateVisits RequestedVisits [id number] Review Auto-Generated Referral / Summary Purpose Family History Relationship Condition Age at Onset Recorded Date/T deion father Diabetes mellitus Unknown Not SpecifiedDeceasedUnknown Relationship Condition Age at Onset Recorded Date/T deion father Diabetes mellitus Unknown motherDeceasedUnknown Advance Directives Advance Directive Response Recorded Date/ Time Advance Directives No September 24 5:28pm Advance Directive Response Recorded Date/ Time Advance Directives No September 24 4:28pm Medications Administered Section Medication OrderMAR ActionAction DateDoseRateSite acetaminophen 1,000 mg tab(s) (TYLENOL) 1,000 mg, ORAL, ONCE, 1 dose, On Mon07/13/22 at 0930, No more than 4000 mg of acetaminophen shouldbe given per day (FROM ALL SOURCES) Given07/13/2022 9:20 AM EST1,000 mg diphenhydrAMINE 50 mg (BENADRYL) 50 mg, ORAL, ONCE, 1 dose, On Mon07/13/22 at 0930 Given07/13/2022 9:20 AM EST50 mg methylPREDNISolone sod succinate(PF) 100 mg injection (SOLU-Medrol) 100 mg, INTRAVENOUS, ONCE, 1 dose, On Mon07/13/22 at 0930 Given07/13/2022 9:21 AM LOE785 mg ocrelizumab 600 mg in NaCl 0.9% [...] Protect From Light. Exp: (24 HR) Rate/Dose Eljsjo3807/13/2022 10:53 AM TRV257 mL/hrRate/Dose Eblsnd7907/13/2022 10:20 AM IFM485 mL/hrRate/Dose Fglqrc6907/13/2022 10:05 AM EMM270 mL/hrMedication Order MAR ActionAction DateDoseRateSite acetaminophen 1,000 mg tab(s) (TYLENOL) 1,000 mg, ORAL, ONCE, 1 dose, On Mon01/11/23 at 0930, No more than 4000 mg of acetaminophen should be given per day (FROM ALL SOURCES) Given01/11/2023 9:20 AM EDT1,000 mg diphenhydrAMINE 50 mg (BENADRYL) 50 mg, ORAL, ONCE, 1 dose, On Mon01/11/23 at 0930 Given01/11/2023 9:20 AM EDT50 mg methylPREDNISolone sod succinate(PF) 100 mg injection (SOLU-Medrol) 100 mg, INTRAVENOUS, ONCE, 1 dose, On Mon01/11/23 at 0930 Given01/11/2023 9:20 AM CPD408 mg ocrelizumab 600 mg in NaCl 0.9% [...] Protect From Light. Exp: (24 HR) Rate/Dose Nngres6801/11/2023 11:09 AM SCI793 mL/hrRate/Dose Bkmyvb1901/11/2023 10:38 AM DIE673 mL/hrRate/Dose Rcpxzk7901/11/2023 10:22 AM QZR259 mL/hr Chief Complaint and Reason for Visit Chief Complaint Admit Date Established Patient April 02, 2025 10:51am G35.D, R19.7 May 22, 2025 3 :21pm Reason for Visit Admit Date Bipolar 1 disorder, depressed[facility] Class 3 severe obesity due t o excess calories with body mass index (BMI) of April 02, 2025 10:51am JEFF (generalized anxiety disorder) [facility] 2024 10:51am Multiple sclerosis April 02, 2025 10:51am Chief Complaint cough, congestion Chest congestion R06.02 - Shortness of breathReason for VisitBronchitis Chief Complaint cough, congestion Chest congestion R06.02 - Shortness of breathReason for VisitBronchitis Bronchitis Chief Complaint Admit Date Established Patient April 02, 2025 10:51am Chief Complaint Admit Date Established Patient April 02, 2025 10:51am G35.D, R19.7 May 22, 2025 3 :21pm 2M June 02, 2025 10:40am Reason for Visit Admit Date Bipolar 1 disorder, depressed, mild Sept emb2024 10:51am Class 3 severe obesity due t o excess calories with body mass index (BMI) of April 02, 2025 10:51am JEFF (generalized anxiety disorder) Septe mb2024 10:51am Multiple sclerosis April 02, 2025 10:51am Bipolar 1 disorder, depressed, mild Nove mb2024 10:40am Class 3 severe obesity due t o excess calories with body mass index (BMI) of June 02, 2025 10:40am JEFF (generalized anxiety disorder) Novem 2024 10:40am Insulin resistance June 02, 2025 10:40am Multiple sclerosis June 02, 2025 10:40am Additional Source Comments Source Comments (unrecognize d section and content) In the event this informatio n is protected by the Federal Confidentiality of Alcohol and Drug Abuse Patient Records regulations: The Federal rules restrict any use of the information to criminally investigate or prosecute any alcohol or drug abuse patient.[facility]In the event this information is protected by the Federal Confidentiality of Alcohol and Drug Abuse Patient Records regulations: The Federal rules restrict any use of the information to criminally investigate or prosecute any alcohol or drug abuse patient.[facility] HospitalIn the event this information is protected by the Federal Confidentiality of Alcohol and Drug Abuse Patient Records regulations: The Federal rules restrict any use of the information to criminally investigate or prosecute any alcohol or drug abuse patient.[facility] HospitalIn the event this information is protected by the Federal Confidentiality of Alcohol and Drug Abuse Patient Records regulations: The Federal rules restrict any use of the information to criminally investigate or prosecute any alcohol or drug abuse patient.[facility] HospitalIn the event this information is protected by the Federal Confidentiality of Alcohol and Drug Abuse Patient Records regulations: The Federal rules restrict any use of the information to criminally investigate or prosecute any alcohol or drug abuse patient.[facility] HospitalIn the event this information is protected by the Federal Confidentiality of Alcohol and Drug Abuse Patient Records regulations: The Federal rules restrict any use of the information to criminally investigate or prosecute any alcohol or drug abuse patient.[facility] HospitalIn the event this information is protected by the Federal Confidentiality of Alcohol and Drug Abuse Patient Records regulations: The Federal rules restrict any use of the information to criminally investigate or prosecute any alcohol or drug abuse patient.[facility] HospitalIn the event this information is protected by the Federal Confidentiality of Alcohol and Drug Abuse Patient Records regulations: The Federal rules restrict any use of the information to criminally investigate or prosecute any alcohol or drug abuse patient.[facility] HospitalIn the event this information is protected by the Federal Confidentiality of Alcohol and Drug Abuse Patient Records regulations: The Federal rules restrict any use of the information to criminally investigate or prosecute any alcohol or drug abuse patient.[facility] HospitalIn the event this information is protected by the Federal Confidentiality of Alcohol and Drug Abuse Patient Records regulations: The Federal rules restrict any use of the information to criminally investigate or prosecute any alcohol or drug abuse patient.[facility] HospitalIn the event this information is protected by the Federal Confidentiality of Alcohol and Drug Abuse Patient Records regulations: The Federal rules restrict any use of the information to criminally investigate or prosecute any alcohol or drug abuse patient.[facility] HospitalIn the event this information is protected by the Federal Confidentiality of Alcohol and Drug Abuse Patient Records regulations: The Federal rules restrict any use of the information to criminally investigate or prosecute any alcohol or drug abuse patient.[facility] HospitalIn the event this information is protected by the Federal Confidentiality of Alcohol and Drug Abuse Patient Records regulations: The Federal rules restrict any use of the information to criminally investigate or prosecute any alcohol or drug abuse patient.[facility] HospitalIn the event this information is protected by the Federal Confidentiality of Alcohol and Drug Abuse Patient Records regulations: The Federal rules restrict any use of the information to criminally investigate or prosecute any alcohol or drug abuse patient.[facility] HospitalIn the event this information is protected by the Federal Confidentiality of Alcohol and Drug Abuse Patient Records regulations: The Federal rules restrict any use of the information to criminally investigate or prosecute any alcohol or drug abuse patient.[facility] HospitalIn the event this information is protected by the Federal Confidentiality of Alcohol and Drug Abuse Patient Records regulations: The Federal rules restrict any use of the information to criminally investigate or prosecute any alcohol or drug abuse patient.[facility] HospitalIn the event this information is protected by the Federal Confidentiality of Alcohol and Drug Abuse Patient Records regulations: The Federal rules restrict any use of the information to criminally investigate or prosecute any alcohol or drug abuse patient.[facility] HospitalIn the event this information is protected by the Federal Confidentiality of Alcohol and Drug Abuse Patient Records regulations: The Federal rules restrict any use of the information to criminally investigate or prosecute any alcohol or drug abuse patient.[facility] HospitalIn the event this information is protected by the Federal Confidentiality of Alcohol and Drug Abuse Patient Records regulations: The Federal rules restrict any use of the information to criminally investigate or prosecute any alcohol or drug abuse patient.[facility] HospitalIn the event this information is protected by the Federal Confidentiality of Alcohol and Drug Abuse Patient Records regulations: The Federal rules restrict any use of the information to criminally investigate or prosecute any alcohol or drug abuse patient.[facility] HospitalIn the event this information is protected by the Federal Confidentiality of Alcohol and Drug Abuse Patient Records regulations: The Federal rules restrict any use of the information to criminally investigate or prosecute any alcohol or drug abuse patient.[facility] HospitalIn the event this information is protected by the Federal Confidentiality of Alcohol and Drug Abuse Patient Records regulations: The Federal rules restrict any use of the information to criminally investigate or prosecute any alcohol or drug abuse patient.[facility] HospitalIn the event this information is protected by the Federal Confidentiality of Alcohol and Drug Abuse Patient Records regulations: The Federal rules restrict any use of the information to criminally investigate or prosecute any alcohol or drug abuse patient.[facility] HospitalIn the event this information is protected by the Federal Confidentiality of Alcohol and Drug Abuse Patient Records regulations: The Federal rules restrict any use of the information to criminally investigate or prosecute any alcohol or drug abuse patient.[facility] HospitalIn the event this information is protected by the Federal Confidentiality of Alcohol and Drug Abuse Patient Records regulations: The Federal rules restrict any use of the information to criminally investigate or prosecute any alcohol or drug abuse patient.[facility] HospitalIn the event this information is protected by the Federal Confidentiality of Alcohol and Drug Abuse Patient Records regulations: The Federal rules restrict any use of the information to criminally investigate or prosecute any alcohol or drug abuse patient.[facility] HospitalIn the event this information is protected by the Federal Confidentiality of Alcohol and Drug Abuse Patient Records regulations: The Federal rules restrict any use of the information to criminally investigate or prosecute any alcohol or drug abuse patient.[facility] HospitalIn the event this information is protected by the Federal Confidentiality of Alcohol and Drug Abuse Patient Records regulations: The Federal rules restrict any use of the information to criminally investigate or prosecute any alcohol or drug abuse patient.[facility] HospitalIn the event this information is protected by the Federal Confidentiality of Alcohol and Drug Abuse Patient Records regulations: The Federal rules restrict any use of the information to criminally investigate or prosecute any alcohol or drug abuse patient.[facility] HospitalIn the event this information is protected by the Federal Confidentiality of Alcohol and Drug Abuse Patient Records regulations: The Federal rules restrict any use of the information to criminally investigate or prosecute any alcohol or drug abuse patient.[facility] HospitalIn the event this information is protected by the Federal Confidentiality of Alcohol and Drug Abuse Patient Records regulations: The Federal rules restrict any use of the information to criminally investigate or prosecute any alcohol or drug abuse patient.[facility] HospitalIn the event this information is protected by the Federal Confidentiality of Alcohol and Drug Abuse Patient Records regulations: The Federal rules restrict any use of the information to criminally investigate or prosecute any alcohol or drug abuse patient.[facility] Care Teams (unrecognized sec tion and content) Team MemberRelationshipSpecialtyStart DateEnd Date Jayme Schmidt PCP - GeneralInternal Medicine08/12/13Team MemberRelationshipSpecialtyStart Date End Date Jayme Schmidt PCP - GeneralInternal Medicine1Team MemberRelationshipSpecialtyStart Date End Date Jayme Schmidt PCP - GeneralInternal Medicine08/12/13Team MemberRelationshipSpecialtyStart Date End Date Jayme Schmidt PCP - GeneralInternal Medicine08/12/13Team MemberRelationshipSpecialtyStart Date End Date Jayme Schmidt PCP - GeneralInternal Medicine08/12/13Team MemberRelationshipSpecialtyStart Date End Date Jayme Schmidt PCP - GeneralInternal Medicine08/12/13Team MemberRelationshipSpecialtyStart Date End Date Jayme Schmidt PCP - GeneralInternal Medicine08/12/13Team MemberRelationshipSpecialtyStart Date End Date Jayme Schmidt PCP - GeneralInternal Medicine08/12/13Team MemberRelationshipSpecialtyStart Date End Date Jayme Schmidt PCP - GeneralInternal Medicine08/12/13Team MemberRelationshipSpecialtyStart Date End Date Jayme Schmidt PCP - GeneralInternal Medicine08/12/13Team MemberRelationshipSpecialtyStart Date End Date Jayme Schmidt PCP - GeneralInternal Medicine08/12/13Team MemberRelationshipSpecialtyStart Date End Date Jayme Schmidt PCP - GeneralInternal Medicine08/12/13Team MemberRelationshipSpecialtyStart Date End Date Jayme Schmidt PCP - GeneralInternal Medicine08/12/13 Team Status: Active Member Role Status Dates Jayme Schmidt MD Primary Care Provider Active Team Status: Inactive Member Role Status Dates LILI HuynhC Attending Provider Active S tart: September 25, 2023 End: September 25, 2023Arun Dominiqued.[facility] Care ProviderActiveStart: September 25, 2023 End: September 25, 2023 Team Status: Inactive Member Role Status Dates Jayme Schmidt MD Primary Care Provider Active S tart: December 19, 2023 End: December 18dorie Allred , RAYMONNAtcatia ProviderActiveStart: December 19, 2023 End: December 19, 2023 Team Status: Active Member Role Status Dates Jayme Schmidt MD Primary Care Provider Active S tart: December 19, 2023 Shelbie Allred , APRNAtcatia ProviderActiveStart: December 19, 2023 Team MemberRelationshipSpecialtyStart DateEnd Date Jayme Schmidt PCP - GeneralInternal Medicine08/12/13Team MemberRelationshipSpecialtyStart Date End Date Jayme Schmidt PCP - GeneralInternal Medicine08/12/13Team MemberRelationshipSpecialtyStart Date End Date Jayme Schmidt PCP - GeneralInternal Medicine08/12/13Team MemberRelationshipSpecialtyStart Date End Date Jayme Schmidt PCP - GeneralInternal Medicine08/12/13Team MemberRelationshipSpecialtyStart Date End Date Jayme Schmidt PCP - GeneralInternal Medicine08/12/13Team MemberRelationshipSpecialtyStart Date End Date Jayme Schmidt PCP - GeneralInternal Medicine08/12/13Team MemberRelationshipSpecialtyStart Date End Date Jayme Schmidt MD PCP - GeneralInternal Medicine08/12/13Team MemberRelationshipSpecialtyStart Date End Date Jayme Schmidt MD [address] [place] [address] PCP - GeneralFamily Medicine08/21/23Team MemberRelationshipSpecialtyStart DateEnd Date Jayme Schmidt MD [address] [place] [address] PCP - GeneralFamily Medicine08/21/23Team MemberRelationshipSpecialtyStart DateEnd Date Jayme Schmidt MD [address] [place] [address] PCP - GeneralFamily Medicine08/21/23Team MemberRelationshipSpecialtyStart DateEnd Date Jayme Schmidt MD [address] [place] [address] PCP - GeneralFamily Medicine08/21/23Team MemberRelationshipSpecialtyStart DateEnd Date Jayme Schmidt MD [address] [place] [address] PCP - GeneralFamily Medicine08/21/23Team MemberRelationshipSpecialtyStart DateEnd Date Jayme Schmidt MD [address] [place] [address] PCP - GeneralFamily Medicine08/21/23Team MemberRelationshipSpecialtyStart DateEnd Date Jayme Schmidt MD [address] [place] [address] PCP - GeneralFamily Medicine08/21/23Team MemberRelationshipSpecialtyStart DateEnd Date Jayme Schmidt MD [address] [place] [address] PCP - GeneralFamily Medicine08/21/23Team MemberRelationshipSpecialtyStart DateEnd Date Jayme Schmidt MD [address] [place] [address] PCP - GeneralFamily Medicine08/21/23Team MemberRelationshipSpecialtyStart DateEnd Date Jayme Schmidt MD [address] [place] [address] PCP - GeneralFamily Medicine08/21/23Team MemberRelationshipSpecialtyStart DateEnd Date Jayme Schmidt MD [address] [place] [address] PCP - GeneralFamily Medicine08/21/23Team MemberRelationshipSpecialtyStart DateEnd Date Jayme Schmidt MD [address] [place] [address] PCP - GeneralFamily Medicine08/21/23Team MemberRelationshipSpecialtyStart DateEnd Date Jayme Schmidt MD [address] [place] [address] PCP - GeneralFamily Medicine08/21/23Team MemberRelationshipSpecialtyStart DateEnd Date Jayme Schmidt MD PCP - GeneralInternal Medicine08/12/13Team MemberRelationshipSpecialtyStart Date End Date Jayme Schmidt MD PCP - GeneralInternal Medicine08/12/13Team MemberRelationshipSpecialtyStart Date End Date Jayme Schmidt MD PCP - GeneralInternal Medicine08/12/13Team MemberRelationshipSpecialtyStart Date End Date Jayme Schmidt MD PCP - GeneralInternal Medicine08/12/13Team MemberRelationshipSpecialtyStart Date End Date Jayme Schmidt MD [address] [place] [address] PCP - GeneralFamily Medicine08/21/23Team MemberRelationshipSpecialtyStart DateEnd Date Jayme Schmidt MD [address] [place] [address] PCP - GeneralFamily Medicine08/21/23Team MemberRelationshipSpecialtyStart DateEnd Date Jayme Schmidt MD [address] [place] [address] [facility] - [facility]/23Team MemberRelationshipSpecialtyStart DateEnd Date Jayme Schmidt MD [address] [place] [address] PCP - [facility]08/21/23Team MemberRelationshipSpecialtyStart DateEnd Date Jayme Schmidt MD [address] [place] [address] PCP - Generalmily Medicine08/21/23Team MemberRelationshipSpecialtyStart DateEnd Date Jayme Schmidt MD [address] [place] [address] [facility] - [facility]08/21/23 Jayme Schmidt MD [address] [place] [address] [facility]07/24/24Team MemberRelationshipSpecialtyStart DateEnd Date Jayme Schmidt MD [address] [place] [address] PCP - Generalmily Medicine08/21/23 Jayme Schmidt MD [address] [place] [address] [facility]07/24/24Team MemberRelationshipSpecialtyStart DateEnd Date Jayme Schmidt MD [address] [place] [address] [facility] - [facility]08/21/23 Jayme Schmidt MD [address] [place] [address] [facility]07/24/24Team MemberRelationshipSpecialtyStart DateEnd Date Jayme Schmidt MD [address] [place] [address] [facility] - [facility]08/21/23 Jayme Schmidt MD [address] [place] [address] [facility]07/24/24Team MemberRelationshipSpecialtyStart DateEnd Date Jayme Schmidt MD [facility]13Team MemberRelationshipSpecialtyStart Date End Date Jayme Schmidt MD [address] [place] [address] [facility] - [facility]08/21/23 Jayme Schmidt MD [address] [place] [address] [facility]07/24/24Te MemberRelationshipSpecialtyStart DateEnd Date Jayme Schmidt MD PCP - GeneralInternal Medicine08/12/13am MemberRelationshipSpecialtyStart Date End Date Jayme Schmidt MD [address] [place] [address] [facility]08/21/23 Jayme Schmidt MD [address] [place] [address] [facility]07/24/24Team MemberRelationshipSpecialtyStart DateEnd Date Jayme Schmidt MD PCP - GeneralInternal Medicine08/12/13Team MemberRelationshipSpecialtyStart Date End Date Jayme Schmidt MD PCP - GeneralInternal Medicine08/12/13am MemberRelationshipSpecialtyStart Date End Date Jayme Schmidt MD PCP - GeneralInternal Medicine08/12/13Team MemberRelationshipSpecialtyStart Date End Date Jayme Schmidt MD [address] [place] [address] PCP - Generalmily Medicine08/21/23 Jayme Schmidt MD [address] [place] [address] [facility]07/24/24Team MemberRelationshipSpecialtyStart DateEnd Date Jayme Schmidt MD [address] [place] [address] [facility] - [facility]08/21/23 Jayme Schmidt MD [address] [place] [address] [facility]07/24/24Team MemberRelationshipSpecialtyStart DateEnd Date Jayme Schmidt MD [address] [place] [address] [facility] - [facility]08/21/23 Jayme Schmidt MD [address] [place] [address] [facility]07/24/24 Team Status: Inactive Member Role Status Dates Jayme Schmidt MD Primary Care Provider Active S tart: April 02, 2025 End: April 02, 2025[facility] SALIMA Schmidtttending ProviderActiveStart: April 02, 2025 End: April 02, 2025Team MemberRelationshipSpecialtyStart DateEnd Date Jayme Schmidt MD [facility]08/21/23 Jayme Schmidt MD [address] [place] [address] [facility] - [facility]07/24/24Team MemberRelationshipSpecialtyStart DateEnd Date Jayme Schmidt MD [facility]08/21/23 Jayme Schmidt MD [address] [place] [address] [facility] - [facility]07/24/24Team MemberRelationshipSpecialtyStart DateEnd Date Jayme Schmidt MD [facility]08/21/23 Jayme Schmidt MD [address] [place] [address] [facility] - [facility]07/24/24 Team Status: Active Member Role/Relationship Status Dates Jayme Schmidt MD Primary Care Provider Active Team Status: Inactive Member Role/Relationship Status Dates Jayme Schmidt MD Primary Care Provider Active S tart: April 02, 2025 End: April 02, 2025[facility] Claudia Schmidt ProviderActiveStart: April 02, 2025 End: April 02, 2025 Team Status: Inactive Member Role/Relationship Status Dates Jayme Schmidt MD Primary Care Provider Active S tart: May 22, 2025 End: May 22Claudia Bullard ProviderActiveStart: May 22, 2025 End: May 22, 2025 Team Status: Inactive Member Role/Relationship Status Dates Jayme Schmidt MD Primary Care Provider Active S tart: June 02, 2025 End: June 02, 2025Claudia Dominique ProviderActiveStart: June 02, 2025 End: June 02, 2025 Reason for Visit (unrecogniz ed section and content) SpecialtyDiagnoses / ProceduresReferred By ContactReferred To ContactMR IMAGING Diagnoses Multiple sclerosis (HCC) Encounter for long-term (current) use of medications Procedures MRI BRAIN WO/W IVCON MRI BRAIN Autumn Monreal MD [address] [id number] Mr Imaging Referral IDStatusReasonStart DateExpiration DateVisits RequestedVisits [id number] Auto-Generated Referral [id number] / ProceduresReferred By ContactReferred To Contact Diagnoses Multiple sclerosis (HCC) MS Procedures INJECTION, OCRELIZUMAB, 1 MG OCRELIZUMAB Yoly Miller APRN.[employer] [address] [place] [address] Neur Treatment [facility] [address] [place] [address] Referral IDStatusasonEtoile DateExpiration DateVisits RequestedVisits [id number] Patient Follow-UpReasonCommentsRefill RequestSpecialtyDiagnoses / Procedures Referred By ContactReferred To ContactMR IMAGING Diagnoses Multiple sclerosis (HCC) Encounter for long-term (current) use of medications Procedures MRI BRAIN WO/W IVCON MRI BRAIN BRAIN STEM W/O W/CONTRAST MATERIAL Yoly Miller, [employer] MANAGEMENT HANDLER.[employer] [address] [id number] Mr Imaging Referral IDStatusReasonStart DateExpiration DateVisits RequestedVisits [id number] Auto-Generated Referral [id number] Patient Follow-UpReasonComments Radiology MRISpecialtyDiagnoses / ProceduresReferred By ContactReferred To ContactMR IMAGING Diagnoses Multiple sclerosis (HCC) Procedures MRI BRAIN WO/W IVCON MRI BRAIN BRAIN STEM W/O W/CONTRAST MATERIAL Yoly Miller, FUEL MANAGEMENT HANDLER.[employer] [address] [place] [address] Mr Imaging [facility] Referral IDStatusReasonStart DateExpiration DateVisits RequestedVisits [id number] Auto-Generated Referral [id number] / ProceduresReferred By ContactReferred To ContactMR IMAGING Diagnoses Spinal stenosis of lumbar region without neurogenic claudication Procedures MRI LUMBAR SPINE WO IVCON MRI SPINAL CANAL LUMBAR W/O CONTRAST MATERIAL Yoly Miller, [employer] MANAGEMENT HANDL[employer] [address] [place] [address] [place] [address] Referral IDStatusReasonStart DateExpiration DateVisits RequestedVisits [id number] Auto-Generated Referral [id number] PatientReferral IDStatusReasonStart Date Expiration DateVisits RequestedVisits [id number]/[id number] PainReasonCommentsEstablished Patient Follow-Up ReasonCommentsAppointmentlvm for patient to call so we can get er scheduled fora follow up in jul with dr Dickson DateCommentsMed [id number]/28/2024 ReasonCommentsInfertilityReasonCommentsEar ProblemLeft ear pain.ReasonComments Follow-up3m Referral to gastroReasonCommentsWeight ManagementReasonOnset Date CommentsMed [id number]-du7uXpghvl adhd medHypertension Bp running highReasonCommentsWell Women VisitReasonOnset DateCommentsMed Refill 4Referral IDStatusReasonStart DateExpiration DateVisits RequestedVisits [id number] Review Clearance Not Met - Admin/Development Executive/Director Advise to Postpone/Reschedule or Not Proceed [id number] MRISpecialtyDiagnoses / Procedures Referred By ContactReferred To ContactMR IMAGING Diagnoses Multiple sclerosis (HCC) Procedures MRI THORACIC SPINE WO/W IVCON MRI SPINAL CANAL THORACIC W/O & W/CONTR MATRL Autumn Barclay MD [address] [place] [id number] [facility] [place] [address] Referral IDStatusReasonStart DateExpiration DateVisits RequestedVisits [id number] Auto-Generated Referral /[id number] ManagementPt present today for Adipex #2 visit.SpecialtyDiagnoses / ProceduresReferred By ContactReferred To ContactMR IMAGING Diagnoses Relapsing remitting multiple sclerosis (HCC) Procedures MRI BRAIN WO/W IVCON MRI BRAIN BRAIN STEM W/O W/CONTRAST MATERIAL Autumn Barclay MD [address] [place] [id number] Phone: tel: fax: [facility] [place] [address] Referral IDStatusReasonStart DateExpiration DateVisits RequestedVisits [id number] Auto-Generated Referral /[id number] Change RequestReasonCommentsAppointmentlvm for pt about scheduling 6 month virtual follow up with Yoly Miller per order workstation.called [phone]-upYeast infection on bikini lineADD medicationAnxiety INFORMATION SOURCE (unrecogn ized section and content) DATE CREATED AUTHOR 12/15/2021 [facility] DATE CREATED AUTHOR AUTHOR'S ORGANIZ ATION 06/27/2022 [facility] DATE CREATED AUTHOR AUTHOR'S ORGANIZ ATION 02/24/2023 [facility] DATE CREATED AUTHOR AUTHOR'S ORGANIZ ATION 02/21/2024 [facility] DATE CREATED AUTHOR AUTHOR'S ORGANIZ ATION 02/28/2025 [facility] DATE CREATED AUTHOR AUTHOR'S ORGANIZ ATION 04/17/2025 [facility] DATE CREATED AUTHOR AUTHOR'S ORGANIZ ATION 05/22/2025 [facility] DATE CREATED AUTHOR AUTHOR'S ORGANIZ ATION 05/29/2025 [facility] Goals (unrecognized section and content) Goals may [...] BE BASED ON THE PRIMARY CLINICAL RECORDS. [facility]. provides no warranty or guarantee of the accuracy or completeness of information in this document.
--- NOTE | 2025-06-10 12:12 | ED.GENADUL1 ---
HPI HPI - General Adult General Chief complaint: Back Pain/Injury Stated complaint: back pain Time Seen by Provider: 06/10/25 11:35 Source: patient Mode of arrival: Wheelchair History of Present Illness HPI narrative: 29-year-old female presented to the emergency department for a chief complaint of right lower back pain. She has had it for 3 days and took some Tylenol yesterday and it did not help. It does not radiate down her leg and there is been no injury or unusual activity. No dysuria or hematuria. She states she has a history of a herniated disc. Related Data Home Medications ?Medication ?Instructions ?Recorded ?Confirmed aripiprazole 15 mg tablet 15 mg PO DAILY 01/24/23 08/19/24 ferrous sulfate 325 mg (65 mg 325 mg PO DAILY 01/24/23 08/19/24 iron) tablet levothyroxine 75 mcg tablet 75 mcg PO DAILY 01/24/23 08/19/24 norgestimate-ethinyl estradiol 1 tab PO DAILY 01/24/23 08/19/24 0.18mg/0.215mg/0.25mg-0.035mg(28)tablet venlafaxine 150 mg 150 mg PO DAILY 01/24/23 08/19/24 capsule,extended release 24 hr cholecalciferol (vitamin D3) 125 125 mcg PO DAILY 08/13/24 08/19/24 mcg (5,000 unit) tablet (Vitamin D3) metformin 500 mg tablet 500 mg PO BID 08/13/24 08/19/24 phentermine 37.5 mg tablet 37.5 mg PO DAILY 08/13/24 08/19/24 (Adipex-P) Allergies Allergy/AdvReac Type Severity Reaction Status Date / Time glatiramer (copolymer 1) AdvReac Severe Hives Verified 08/13/24 09:11 (From Copaxone) interferon beta-1a (From AdvReac Severe shortness Verified 08/13/24 09:11 Avonex) of breath Opioid HPI Opioid Management Most Recent Opioid Data: Last Pain Scale 10 10/27/23, 14:17 Review of Systems ROS Narrative A ten point review of systems is negative except as noted above. 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 ?H72.92 - Unspecified perforation of tympanic membrane, left ear (ICD-10) Pneumonia ?J18.9 - Pneumonia, unspecified organism (ICD-10) Lumbar radiculopathy ?M54.16 - Radiculopathy, lumbar region (ICD-10) Sciatica ?M54.30 - Sciatica, unspecified side (ICD-10) Multiple sclerosis ?G35 - Multiple sclerosis (ICD-10) History of pilonidal cyst ?Z87.2 - Personal history of diseases of the skin and subcutaneous tissue (ICD-10) Anemia ?D64.9 - Anemia, unspecified (ICD-10) Depression ?F32.A - Depression, unspecified (ICD-10) Bipolar disorder ?F31.9 - Bipolar disorder, unspecified (ICD-10) Anxiety ?F41.9 - Anxiety disorder, unspecified (ICD-10) Hypothyroidism ?E03.9 - Hypothyroidism, unspecified (ICD-10) PCOS (polycystic ovarian syndrome) ?E28.2 - Polycystic ovarian syndrome (ICD-10) Surgical History (Updated 08/13/24 @ 09:23 by Cintia Rush) History of colonoscopy ?Z98.890 - Other specified postprocedural states (ICD-10) History of esophagogastroduodenoscopy (EGD) ?Z98.890 - Other specified postprocedural states (ICD-10) History of cholecystectomy ?Z90.49 - Acquired absence of other specified parts of digestive tract (ICD-10) History of tonsillectomy ?Z90.89 - Acquired absence of other organs (ICD-10) Family History (Updated 08/13/24 @ 09:19 by Cintia Rush) Other Family history of COPD (chronic obstructive pulmonary disease) Family history of DVT Family history of coronary artery disease Family history of diabetes mellitus Family history of heart disease Family history of myocardial infarction Family history of renal failure Family history of thyroid cancer Social History (Updated 08/13/24 @ 09:17 by Cintia Rush) Within the past year, how often did you have a drink containing alcohol: monthly or less Smoking status: Former smoker Do you use any of these nicotine containing products: vaping products Non-prescribed substance use: denies use Previous occupational history: [employer] Highest level of school completed/degree received: some college, no degree Little interest or pleasure in doing things: not at all Feeling down, depressed, or hopeless: not at all Exam Narrative Exam Narrative: Nurses note and vital signs reviewed General:The patient appears in no apparent distress.he is sitting upright on cart. Skin:Warm, dry, no pallor noted.There is no rash noted including of the lumbar area. Head:Normocephalic, atraumatic Eye: Normal conjunctiva, no drainage Ears, Nose, Mouth, and Throat: oral mucosa is moist. Nares patent. Cardiovascular:Regular Rate and Rhythm Respiratory:Patient is in no distress, no accessory muscle use, lungs are clear to auscultation, no wheezing, rales or rhonchi Back: No bruise rash or abrasion. There is no focal area of tenderness to palpation. GI: Obese soft and nontender Musculoskeletal: The patient has no evidence of calf tenderness, no pitting edema, symmetrical pulses noted bilaterally Neurological:A&O, normal speech Psychiatric:Cooperative Constitutional Vital Signs, click to edit/add: Last Vital Signs Temp 98.4 F 06/10/25 11:36 Pulse 78 06/10/25 11:36 Resp 18 06/10/25 11:36 BP 139/97 H 06/10/25 11:36 Pulse Ox 98 06/10/25 11:36 O2 Del Method Room Air 06/10/25 11:36 Course Vital Signs Vital signs: Vital Signs Temperature 98.4 F 06/10/25 11:36 Pulse Rate 78 06/10/25 11:36 Respiratory Rate 18 06/10/25 11:36 Blood Pressure 139/97 H 06/10/25 11:36 Pulse Oximetry 98 06/10/25 11:36 Oxygen Delivery Method Room Air 06/10/25 11:36 Temperature 98.4 F 06/10/25 11:36 Pulse Rate 78 06/10/25 11:36 Respiratory Rate 18 06/10/25 11:36 Blood Pressure 139/97 H 06/10/25 11:36 Pulse Oximetry 98 06/10/25 11:36 Oxygen Delivery Method Room Air 06/10/25 11:36 Medical Decision Making MDM Narrative Medical decision making narrative: Urinalysis and test are negative. X-rays were ordered but she did not want to stay in the left before completing treatment. Differential Diagnosis Differential Diagnosis: UTI, muscle strain, herniated disc Lab Data Lab results reviewed: Yes I reviewed the patient's lab results Labs: Lab Results 06/10/25 Range/Units 12:05 Urine Color Lt. yellow (YELLOW) Urine Clarity Clear (CLEAR) Urine pH 6.0 (5.0-9.0) Ur Specific [place] 1.025 (1.005-1.025) Urine Protein Negative (NEG/TRACE) mg/dL Urine Glucose (UA) Negative (NEGATIVE) mg/dL Urine Ketones Negative (NEGATIVE) mg/dL Urine Occult Blood Negative (NEGATIVE) Urine Nitrite Negative (NEGATIVE) Urine Bilirubin Negative (NEGATIVE) Urine Urobilinogen 0.2 (0.2-1.0) EU/dL Ur Leukocyte Esterase Negative (NEGATIVE) Urine HCG, Qual Negative (NEGATIVE) Discharge Plan Discharge Stand Alone Forms: Portal Instructions Chief Complaint: Back Pain/Injury Clinical Impression: Low back pain Patient Disposition: Left Against Medical Advice Time of Disposition Decision: 12:27 Condition: Good Mode of Transportation: Private Vehicle Prescriptions / Home Meds: No Action cholecalciferol (vitamin D3) [Vitamin D3] 125 mcg (5,000 unit) tablet 125 mcg PO DAILY metformin 500 mg tablet 500 mg PO BID phentermine [Adipex-P] 37.5 mg tablet 37.5 mg PO DAILY Rx Instructions: must administer 30 minutes before or 1-2 hours after breakfast aripiprazole 15 mg tablet 15 mg PO DAILY ferrous sulfate 325 mg (65 mg iron) tablet 325 mg PO DAILY levothyroxine 75 mcg tablet 75 mcg PO DAILY norgestimate-ethinyl estradiol 0.18/0.215/0.25 mg-35 mcg (28) tablet 1 tab PO DAILY venlafaxine 150 mg capsule,extended release 24hr 150 mg PO DAILY Print Language: Turkmen Instructions: Acute Low Back Pain (ED) Referrals: Jayme Franklin MD [Primary Care Provider, Family Practice] - 1 week
[2025-06-10 12:15] LABS: Glucose Urine UA NEGATIVE (NEGATIVE)
[2025-06-10 12:17] LABS: HCG Qualitative Urine* NEGATIVE (NEGATIVE)
[2025-06-10 12:32] LABS: Cast Seen? NONE SEEN #/LPF (NONE SEEN); Crystals Seen? None Seen #/HPF (None Seen); Urine Culture Indicated YES-FRMC
== END 2025-06-10 12:37 | disposition left against medical advice (07) ==
PROVIDERS: Emergency Provider Emergency Medicine; PCP Family Medicine
DX: M54.50 Low back pain, unspecified (principal); Z53.29 Procedure and treatment not carried out because of patient's decision for other reasons; Z87.891 Personal history of nicotine dependence
CPT/HCPCS: 81001; 84703; 87086; 99283